=== PATIENT | male | born 1970 | race Caucasian/White ===

== ENCOUNTER → 2020-02-18 14:48 | Observation (INO) | payer OTHER, SELFPAY ==
[2020-02-18] VITALS (10 sets, daily range): BP systolic 132–145; BP diastolic 79–108; PULSE 67–98; RESP 16–18; TEMP 36.8–37.7; O2SAT 98–100; BMI 29.5; BMI 29.4
--- NOTE | 2020-02-18 15:21 | CT_ITS ---
STUDY: CT ABDOMEN AND PELVIS WITH CONTRAST REASON FOR EXAM: Male, 49 years old. PYELONEPHRITIS, UTI RADIATION DOSAGE (If Supplied By Facility): CTDIvol = ( 16.08 ) mGy, DLP = ( 1208.11 ) mGycm TECHNIQUE: Transaxial images were obtained from the dome of the diaphragm to the symphysis pubis without oral contrast. IV 100mL Isovue-300 was administered. Sagittal and coronal images were reconstructed. Individualized dose optimization techniques were used for this CT. COMPARISON: None. FINDINGS: The visualized lung bases are unremarkable. The visualized portions of the heart are within normal limits. Normal liver. Cholelithiasis. No significant dilatation of the extrahepatic biliary system. Normal spleen. Normal pancreas. Normal bilateral adrenal glands. Normal right kidney. 2 cm cyst and up to 7 mm stones in the left kidney. Normal visualized stomach. Normal small intestine. Normal colon. The appendix is visualized and appears normal. Normal abdominal aorta. Normal inferior vena cava. Normal retroperitoneum. Normal urinary bladder. Small fatty umbilical hernia. Normal osseous structures. CT/Abdomen/Pelvis W IV Cont ONLY IMPRESSION: Cholelithiasis. Left renal stones and cysts. No hydronephrosis. Small fatty umbilical hernia. Electronically Signed: Sai Hauser DO at 17:25 EDT Tel [phone], Service support ,
[2020-02-18 15:22] LABS: Bacteria 0 SEEN /hpf (None Seen); Mucous, Urine 0 SEEN /hpf (<or=2+); Red Blood Cells-Urine 0 SEEN /hpf (0-5)
--- NOTE | 2020-02-18 15:22 | ED.VIS.GEN ---
History of Present Illness Chief Complaint: Fever Narrative: This patient is a 49-year-old male who presents with fever UTI and lower back pain. Patient has a history of urethral stricture with surgery in 2014. He developed a fever of about 101 two days ago. He also noted urinary frequency foul odor to his urine generalized malaise headache and myalgias. He went to the urgent care. He was diagnosed with UTI and started on Keflex. He has noted that the odor in his urine as well as urinary frequency have improved but he still just generally does not feel well. He is concerned because he has mechanical heart valve. He has a history of HOCM and mechanical mitral valve replacement. He is on warfarin. He reports mild nausea. No vomiting. He does complain of mid lower back pain which he rates is about 5 out of 10. Past Medical History - Allergies and Home Meds Allergies/Adverse Reactions: Allergies codeine Allergy (Verified 02/18/20 14:53) Other Primary Care Physician: [facility] Doctor,Out of [NON-STAFF] - Past Medical History: - - HOCM, history of urethral stricture Surgical History: - - Mitral valve replacement, urethral stricture surgery Smoking Status: Never smoker Review of Systems All systems negative except as indicated General: Reports: Fever Eyes: Denies: Visual changes - bilaterally ENT: Denies: Bilateral ear pain Cardiovascular: Denies: Chest pain Respiratory: Denies: Dyspnea Gastrointestinal: Reports: Nausea. Denies: Abdominal pain, Vomiting, Diarrhea Genitourinary: Reports: Frequency Musculoskeletal: Reports: Back pain Skin: Denies: Rash Neurological: Reports: Headache Allergy: Denies: Uticaria Physical Exam Vital Signs/Narrative: Vital Signs Temp Pulse Resp BP Pulse Ox 02/18/20 14:50 98.2 F 98 18 145/108 H 100 Inital Vital Signs reviewed: Yes General: Well nourished Head: Normocephalic Eyes: EOMI ENT: Moist mucous membranes Neck: Supple Cardiovascular: Regular rhythm, Tachycardia Respiratory: No distress, CTA bilaterally Abdomen: Soft, Nontender, Nondistended Back: Nontender. Negative for: CVA tenderness Extremities: Nontender Skin: Normal color Neurological: Alert Psychological: Normal affect Diagnostic/Tx/Re-eval Impressions Abdomen/Pelvis CT 02/18/20 15:21 IMPRESSION: Cholelithiasis. Left renal stones and cysts. No hydronephrosis. Small fatty umbilical hernia. Electronically Signed: Sai Hauser DO at 17:25 EDT Tel [phone], Service support , 02/18/20 15:21 CT Abd [Abdomen/Pelvis W IV Cont ONLY] [CT] Stat Laboratory Results 02/18/20 02/18/20 02/18/20 15:15 15:25 15:25 WBC 16.6 H RBC 5.72 Hgb 15.0 Hct 46.7 MCV 81.6 MCH 26.2 L MCHC 32.1 RDW Std Deviation 44.4 H RDW Coeff of Kingsley 15.1 H Plt Count 319 MPV 9.5 Immature Gran % (Auto) 0.300 Neut % (Auto) 72.2 H Lymph % (Auto) 15.5 L [place] % (Auto) 11.5 H Eos % (Auto) 0.2 Baso % (Auto) 0.3 Absolute Neuts (auto) 12.0 H Absolute Lymphs (auto) 2.57 Nucleated RBC % 0 Differential Comment SCANNED Diff Path Review May foll Platelet Estimate ADEQUATE RBC Morphology NORM C+C PT INR Sodium 133 L Potassium 3.6 Chloride 100 Carbon Dioxide 26.0 Anion Gap 7 BUN 7 Creatinine 0.84 Estim Creat Clear Calc 134.06 Est GFR (MDRD) Af Amer 125 Est GFR (MDRD) Non-Af 103 BUN/Creatinine Ratio 8.4 L Glucose 98 Lactic Acid Calcium 9.1 Urine Color Yellow Urine Clarity Sl Cldy Urine pH 7.0 Ur Specific [place] 1.005 Urine Protein Negative Urine Glucose (UA) Normal Urine Ketones Negative Urine Occult Blood Negative Urine Nitrite Negative Urine Bilirubin Negative Urine Urobilinogen 1 H Ur Leukocyte Esterase 25 H 02/18/20 02/18/20 15:25 15:25 WBC RBC Hgb Hct MCV MCH MCHC RDW Std Deviation RDW Coeff of Kingsley Plt Count MPV Immature Gran % (Auto) Neut % (Auto) Lymph % (Auto) [place] % (Auto) Eos % (Auto) Baso % (Auto) Absolute Neuts (auto) Absolute Lymphs (auto) Nucleated RBC % Differential Comment Diff Path Review Platelet Estimate RBC Morphology PT 19.7 H INR 1.7 Sodium Potassium Chloride Carbon Dioxide Anion Gap BUN Creatinine Estim Creat Clear Calc Est GFR (MDRD) Af Amer Est GFR (MDRD) Non-Af BUN/Creatinine Ratio Glucose Lactic Acid 1.1 Calcium Urine Color Urine Clarity Urine pH Ur Specific [place] Urine Protein Urine Glucose (UA) Urine Ketones Urine Occult Blood Urine Nitrite Urine Bilirubin Urine Urobilinogen Ur Leukocyte Esterase - Medical Decision Making Diagnostic evaluation as above. The macroscopic on the urinalysis is unremarkable but patient was recently diagnosed with a UTI this may be related to a partially treated UTI. Microscopic pending. Urine culture was ordered. White count is 16.6. Lactic acid is normal. He was tachycardic on initial presentation but this improved with IV fluids. He was given IV Rocephin. Patient is very concerned about his lack of clinical improvement and his mechanical heart valve. We will place in observation. ED Disposition - Plan for ED Patient: Disposition: Acute Care [facility] Diagnosis: UTI (urinary tract infection), Mitral valve replaced Referrals: [facility] Doctor,Out of [NON-STAFF] -
[2020-02-18 15:27] LABS: Glucose, Dipstick Normal (Normal); Ketone-Dipstick Negative (Negative); Leukocyte Esterase-Dipstick 25 /ul (Negative); Nitrite-Dipstick Negative (Negative); Occult Blood-Urine Negative /ul (Negative); Protein-Dipstick Negative (Negative); Specific Gravity, Urine 1.005 (1.002-1.030); Urine Bilirubin Dipstick Negative (Negative); Urine Urobilinogen 1 mg/dl (Normal)
[2020-02-18 15:31] LABS: Color, Urine Yellow (Yellow); Urine Clarity Sl Cldy (Clear)
[2020-02-18 15:53] LABS: Absolute Lymphocyte Count 2.57 X10^3/uL (0.83-4.51); Basophil# 0.05 X10^3/uL; Basophil% 0.3 % (0-1); Eosinophil# 0.04 X10^3/uL; Eosinophils% 0.2 % (0-5); Hematocrit 46.7 % (40-54); Lymphocyte # 2.57 X10^3/ul (4.0); Lymphocyte % 15.5 % (19-41); Mean Corp Hgb Conc 32.1 g/dL (32-36); Mean Corpuscular Hgb 26.2 pg (27.0-32.0); Mean Corpuscular Volume 81.6 fL (80-94); Mean Platelet Vol. 9.5 fl (6.2-12.0); Monocyte# 1.91 X10^3/uL; Monocyte% 11.5 % (0-10); NRBC Flagged by Analyzer 0 % (0-5); Neutrophil # 11.99 X10^3/uL (2.7-7.7); Neutrophil % 72.2 % (47-70); POSITIVE DIFFERENTIAL YES; Platelet Count 319 K/mm3 (150-450); RBC Distribution Width CV 15.1 % (11.6-14.6); RBC Distribution Width SD 44.4 fl (35.1-43.9); Red Blood Count 5.72 M/mm3 (4.6-6.2); White Blood Count 16.6 K/mm3 (4.4-11.0)
[2020-02-18 16:00] LABS: Differential Indicated SCAN CRITERIA MET
[2020-02-18] MEDS: 0.9% Normal Saline 1,000 ML 999 ML IV (16:07)
[2020-02-18 16:28] LABS: International Normalized Ratio 1.7; Prothrombin Time (Protime)PT. 19.7 SECONDS (11.7-14.9)
[2020-02-18 16:37] LABS: Anion Gap 7 (5-15); BUN 7 mg/dL (7-18); BUN/Creat Ratio 8.4 RATIO (10-20); Calcium,Total 9.1 mg/dL (8.5-10.1); Chloride 100 mmol/L (98-107); Creatinine, Serum 0.84 mg/dL (0.70-1.30); EST Glomerular Filtration Rate 103 mL/min (>60); Est Glom Filt Rate - Afr Amer 125 mL/min (>60); Estimated Creatinine Clearance 134.06 ml/min; Glucose 98 mg/dL (74-106); Potassium 3.6 mmol/L (3.5-5.1); Sodium Level 133 mmol/L (136-145)
[2020-02-18 16:41] LABS: Lactic Acid 1.1 mmol/L (0.4-1.9)
[2020-02-18 16:50] LABS: Differential Comment SCANNED; Platelet Estimate ADEQUATE (ADEQ); Red Cell Morphology NORM C+C NORMAL (NORM C&C)
--- NOTE | 2020-02-18 17:59 | NURSING ---
DR SARMIENTO FOR DR ALEXANDER
[2020-02-18 18:01] LABS: Squamous Epithelial Cells - UA 0-5 SEEN /hpf (0-5); White Blood Cells 0-5 SEEN /hpf (0-5)
--- NOTE | 2020-02-18 18:08 | NURSING ---
MED SURG UTI ASHELFAH
--- NOTE | 2020-02-18 18:15 | HP.PCM_ITS ---
<Kendall Boykin - Last Filed: 02/18/20 18:15> Problem List (1) UTI (urinary tract infection) Status: Acute (2) Urethral stricture Status: Chronic (3) HLD (hyperlipidemia) Status: Chronic (4) H/O mitral valve replacement with mechanical valve Status: Chronic History of Present Illness Date of Admission: 02/18/20 Chief Complaint: fever The patient is a 49 year old M with pmhx of mitral valve replacement with mechanical valve in 2013 for hypertrophic cardiomyopathy, hx of urethral stricture s/p repair in 2014, hx HLD, who presented to the ER with c/o fever. The patient inititally had urinary urgency and fevers starting wednesday. He was seen at urgent care and placed on keflex. He had improvement in his urgency however he continued to have fevers, this morning had a temperature of 101. He had a ct of the abdomen showing no hydronephrosis. He as no CVA tenderness. About 1 month ago he had covid19 which he states he was briefly ill with taste change and fever for several days after which it completely resolved. He has no cough or respiratory symptoms at this time. The patient requests that we bridge him with lovenox while he is here.[] Past Medical History Past Medical History (Chronic Problems): Chronic Problems Hypertrophic obstructive cardiomyopathy (Chronic) Urethral stricture (Chronic) HLD (hyperlipidemia) (Chronic) H/O mitral valve replacement with mechanical valve (Chronic) Allergies codeine Allergy (Verified 02/18/20 14:53) Other Home Medications: Ambulatory Orders Medication Instructions Recorded Aspirin 325 mg PO DAILY@0800 03/29/17 Metoprolol Tartrate 75 mg PO DAILY 03/29/17 Warfarin [Coumadin ([facility])] 12.5 mg PO DAILY 03/29/17 Allopurinol 100 mg PO DAILY 02/18/20 Rosuvastatin Calcium 20 mg PO DAILY 02/18/20 Surgical History: - - Mitral valve replacement, urethral stricture surgery Lives: Alone Smoking Status: Never smoker Tobacco Use: Non-smoker Alcohol: None Drugs: None - *Family History Maternal History Items: - - denies maternal hx of stroke, CAD, cancer, DM, lung disease Paternal History Items: - - denies paternal hx of stroke, CAD, cancer, DM, lung disease Review of Systems Constitutional: Reports: Fever, Malaise. Denies: Chills, Weight Change HEENT: Denies: Head Aches, Sinus Congestion, Sinus Drainage Cardiovascular: Denies: Chest Pain, Light Headedness, Palpitations Respiratory: Denies: Cough, Shortness of Breath, Shortness of breath at rest, Sputum production Gastrointestinal: Denies: Abdominal Pain, Diarrhea, Nausea, Vomiting Genitourinary: Reports: Urgency. Denies: Dysuria, Hesitancy Musculoskeletal: Denies: Joint Pain, Joint Tenderness, Muscle pain Skin: Denies: Lesions, Rash, Wounds Neurological: Denies: Numbness, Tingling, Focal weakness Psychiatric: Denies: Anxiety, Depression, Homicidal Ideations, Suicidal Ideations Hematologic/ Lymphatic: Denies: Easy Bruising, Easy Bleeding VTE Information - Inpt Only VTE Present on Admission: No VTE Mechan Device Prophylaxis: None VTE Pharm Prophylaxis ordered?: Yes Patient Problems: Active and Suspected Problems UTI (urinary tract infection) (Acute) - Physical Exam Vitals/I&O's: Vital Signs Temp Pulse Resp BP Pulse Ox 99.1 F 82 18 135/83 H 100 02/18/20 16:53 02/18/20 16:53 02/18/20 16:53 02/18/20 16:53 02/18/20 16:53 Oxygen Delivery Method Room Air Weight: 249 lb Body Mass Index (BMI) 29.5 Intake and Output for Last 24 Hours 02/16/20 02/17/20 02/18/20 23:59 23:59 23:59 Intake Total 1000 / 1000 Balance 1000 / 1000 General: Alert, Oriented x3, Cooperative HEENT: Atraumatic, PERRLA, EOMI, Normocephalic Neck: Supple, No JVD, Negative Carotid Bruits Lungs: Clear to auscultation, Normal air movement Cardiovascular: Regular rate, Murmur - 3/6 systolic murmur best at 2nd ICS Abdomen: Bowel Sounds Present, Soft, Non Tender Extremities: No edema, Capillary Refill Less than 3 Seconds Skin: No rashes, No breakdown Musculoskeletal: No Tenderness to Palpation of Joints or Extremities, - - no CVA tenderness Neurological: Cranial nerves II-XII grossly intact Psych/Mental Status: Normal Affect, Appropriate Laboratory Results 02/18/20 15:15: Urine Color Yellow, Urine Clarity Sl Cldy, Urine pH 7.0, Ur Specific [place] 1.005, Urine Protein Negative, Urine Glucose (UA) Normal, Urine Ketones Negative, Urine Occult Blood Negative, Urine Nitrite Negative, Urine Bilirubin Negative, Urine Urobilinogen 1 H, Ur Leukocyte Esterase 25 H, Urine RBC 0 SEEN, Urine WBC 0-5 SEEN, Ur Squamous Epith Cells 0-5 SEEN, Urine Bacteria 0 SEEN, Urine Mucus 0 SEEN 02/18/20 15:25: WBC 16.6 H, RBC 5.72, Hgb 15.0, Hct 46.7, MCV 81.6, MCH 26.2 L, MCHC 32.1, RDW Std Deviation 44.4 H, RDW Coeff of Kingsley 15.1 H, Plt Count 319, MPV 9.5, Immature Gran % (Auto) 0.300, Neut % (Auto) 72.2 H, Lymph % (Auto) 15.5 L, [place] % (Auto) 11.5 H, Eos % (Auto) 0.2, Baso % (Auto) 0.3, Absolute Neuts (auto) 12.0 H, Absolute Lymphs (auto) 2.57, Nucleated RBC % 0, Differential Comment SCANNED, Diff Path Review August, Platelet Estimate ADEQUATE, RBC Morphology NORM C+C 02/18/20 15:25: Sodium 133 L, Potassium 3.6, Chloride 100, Carbon Dioxide 26.0, Anion Gap 7, BUN 7, Creatinine 0.84, Estim Creat Clear Calc 134.06, Est GFR (MDRD) Af Amer 125, Est GFR (MDRD) Non-Af 103, BUN/Creatinine Ratio 8.4 L, Glucose 98, Calcium 9.1 02/18/20 15:25: PT 19.7 H, INR 1.7 02/18/20 15:25: Lactic Acid 1.1 Current Medications Ceftriaxone Sodium (Rocephin) 1 gm in 50 mls @ 100 mls/hr IV X1 ONE Stop: 02/18/20 18:21 Assessment/Plan All Active Problems UTI (urinary tract infection) (Acute) 1. Acute UTI - failed outpatient keflex - significant leukocytosis. pt reports ongoing fevers at home - 101 this AM. No fever here at this time. Initiate Rocephin. Pt had a urethral stricture in the past that was fixed surgically per [facility] in 2014. UA here is not impressive. Will request culture from urgent care if one was sent. Repeat culture here however it may not demonstrate growth as he has been on abx for several days. -CT abdomen shows left renal stones and cysts, no hydronephrosis, small umbilical hernia. 2. Hx Hypertrophic CM s/p mechanical mitral valve replacement 2013. INR goal 2.5 - 3.5. INR 1.9. Will give additional dose of warfarin tonight, bridge with l ovenox. 3. HLD - statin DVT ppx: lovenox to warfarin bridge This patient was seen by Kendall Boykin PA-C under the supervision of Dr. Healy. <Chanda Healy E - Last Filed: 02/18/20 19:00> History of Present Illness The patient is a 49 year old M [] Past Medical History Allergies codeine Allergy (Verified 02/18/20 14:53) Other - Physical Exam Vitals/I&O's: Vital Signs Temp Pulse Resp BP Pulse Ox 99.2 F H 87 18 145/90 H 98 02/18/20 18:02 02/18/20 18:02 02/18/20 18:02 02/18/20 18:02 02/18/20 18:02 Oxygen Delivery Method Room Air Weight: 249 lb Body Mass Index (BMI) 29.5 Intake and Output for Last 24 Hours 02/16/20 02/17/20 02/18/20 23:59 23:59 23:59 Intake Total 1000 / 1000 Balance 1000 / 1000 Laboratory Results 02/18/20 15:15: Urine Color Yellow, Urine Clarity Sl Cldy, Urine pH 7.0, Ur Spec ific [place] 1.005, Urine Protein Negative, Urine Glucose (UA) Normal, Urine Ketones Negative, Urine Occult Blood Negative, Urine Nitrite Negative, Urine Bilirubin Negative, Urine Urobilinogen 1 H, Ur Leukocyte Esterase 25 H, Urine RBC 0 SEEN, Urine WBC 0-5 SEEN, Ur Squamous Epith Cells 0-5 SEEN, Urine Bacteria 0 SEEN, Urine Mucus 0 SEEN 02/18/20 15:25: WBC 16.6 H, RBC 5.72, Hgb 15.0, Hct 46.7, MCV 81.6, MCH 26.2 L, MCHC 32.1, RDW Std Deviation 44.4 H, RDW Coeff of Kingsley 15.1 H, Plt Count 319, MPV 9.5, Immature Gran % (Auto) 0.300, Neut % (Auto) 72.2 H, Lymph % (Auto) 15.5 L, [place] % (Auto) 11.5 H, Eos % (Auto) 0.2, Baso % (Auto) 0.3, Absolute Neuts (auto) 12.0 H, Absolute Lymphs (auto) 2.57, Nucleated RBC % 0, Differential Comment SCANNED, Diff Path Review May foll, Platelet Estimate ADEQUATE, RBC Morphology NORM C+C 02/18/20 15:25: Sodium 133 L, Potassium 3.6, Chloride 100, Carbon Dioxide 26.0, Anion Gap 7, BUN 7, Creatinine 0.84, Estim Creat Clear Calc 134.06, Est GFR (MDRD) Af Amer 125, Est GFR (MDRD) Non-Af 103, BUN/Creatinine Ratio 8.4 L, Glucose 98, Calcium 9.1 02/18/20 15:25: PT 19.7 H, INR 1.7 02/18/20 15:25: Lactic Acid 1.1 Current Medications Acetaminophen (Acetaminophen 325 Mg Tablet) 650 mg PO Q6H PRN PRN PRN Reason: Pain Score 1-10/Temp > 100.7 F Allopurinol (Allopurinol 100 Mg Tablet) 100 mg PO DAILY JOHAN Aspirin (Aspirin 325 Mg Tablet) 325 mg PO DAILY@0800 JOHAN Sodium Chloride () 1,000 mls @ 100 mls/hr IV .Q10H JOHAN Ceftriaxone Sodium (Rocephin) 1 gm in 50 mls @ 100 mls/hr IV Q24 JOHAN Metoprolol Tartrate (Metoprolol Tartrate 25 Mg Tablet) 75 mg PO DAILY JOHAN Non-Formulary Medication (Rosuvastatin Calcium) 20 mg PO DAILY JOHAN Ondansetron HCl (Ondansetron 4 Mg/2 Ml Vial) 4 mg IV Q8H PRN PRN PRN Reason: NAUSEA/VOMITING Senna/Docusate Sodium (Senna/Docusate Sodium 1 Tablet) 2 tablet PO BID PRN PRN PRN Reason: Constipation Warfarin Sodium (Warfarin 1 Mg Tablet) 12.5 mg PO DAILY JOHAN Zolpidem Tartrate (Zolpidem Tartrate 5 Mg Tablet) 5 mg PO QHS PRN PRN PRN Reason: INSOMNIA Assessment/Plan Hospitalist note: I am seeing this patient in conjunction with Kendall Boykin. I independently seen and examined the patient. History and physical, laboratory data and imaging studies reviewed and I concur with above admission and treatment plan. Patient presented to the emergency room because of fever and urgency that started 2 days ago. He has been having intermittent fever, maximum was 101 Fahrenheit this morning, was started on Keflex for UTI on Wednesday but without improvement. He complained of frequency over the last couple days as well, associated with foul- smelling urine and no other associated symptoms. He denied chills. He was given prescription for Keflex on Wednesday and he did mention that foul-smelling urine improved but he still having frequency and spikes of fever. He denies significant flank pain. He does have a history of mitral valve replacement with mechanical valve and he has been on Coumadin and his INR is subtherapeutic. In the emergency department, maximum temperature was 99.8 Fahrenheit, other vital signs are stable. Routine blood work was remarkable for significant leukocytosis with neutrophilia, otherwise normal. INR was 1.7. Urinalysis revealed cloudy urine, negative for nitrite, 25 leukocyte esterase, 0-5 WBCs and no bacteria seen. CT scan abdomen with IV contrast revealed left renal stone, no hydronephrosis, cholelithiasis. He is being admitted for acute cystitis with no response to outpatient treatment and he is a high risk patient because of mitral valve replacement with mechanical valve. - Physical Exam General: Alert, Oriented x3, Cooperative, No apparent distress. HEENT: Atraumatic, PERRLA, EOMI. Neck: Supple, No JVD, Negative Carotid Bruits, Trachea Midline, Thyroid Normal. Lungs: Clear to auscultation, Normal air movement, No rhonchi, No wheeze, No rales. Cardiovascular: Regular rate, Regular Rhythm, Normal S1, Normal S2, PMI Normal, metallic click. Abdomen: Bowel Sounds Present, Soft, Non Tender, Non-Distended, No Hepato- splenomegaly. Extremities: No clubbing, No cyanosis, No edema Skin: No rashes, No breakdown Neurological: Cranial nerves are intact, neuro grossly intact Vital Signs are stable. Assessment and plan: #1 acute cystitis: With no improvement on oral Keflex that he has been taking for 2 days. Although urinalysis showed no significant WBCs or bacteria in the urine, patient was on Keflex for 2 days which may alter the results. CT scan abdomen and pelvis reviewed as above. He does have significant leukocytosis, no sepsis or severe sepsis. He is a high risk patient because of history of mitral valve replacement with mechanical valve and being on anticoagulation. [facility], urine culture, blood culture, IV fluids, start IV Rocephin, repeat CBC and BMP tomorrow morning. #2 status post mitral valve replacement with mechanical valve: On Coumadin, INR is 1.7, subtherapeutic. Plan to start therapeutic Lovenox twice daily for bridging, continue Coumadin, repeat INR tomorrow morning. #3 other chronic medical problems: Stable, continue current medications as above. This note was generated with Novo[employer] dictation software. It may contain incorrect words, spelling, and punctuation that were not noted in checking the note before signing. OBSV E&M: [id number] Initial observation care L2
[2020-02-18] MEDS: Ceftriaxone 1 GM/50 ML BAG IV (18:24)
[2020-02-18] MEDS: Acetaminophen 325 MG Tablet 650 MG PO (19:18)
[2020-02-18] MEDS: 0.9% Normal Saline 1,000 ML 100 ML IV (19:18)
[2020-02-18] MEDS: Metoprolol Tartrate 25 MG Tablet 75 MG PO (20:12)
[2020-02-18] MEDS: Atorvastatin Calcium 10 MG Tablet PO (20:13)
[2020-02-18] MEDS: Enoxaparin 120 MG/0.8 ML Syringe 110 MG SC (20:13)
[2020-02-19] VITALS (8 sets, daily range): BP systolic 111–140; BP diastolic 69–84; PULSE 57–76; RESP 16; TEMP 36.1–36.8; O2SAT 96–100
[2020-02-19] MEDS: MELATONIN 10 MG TABLET PO (00:07)
[2020-02-19] MEDS: 0.9% Normal Saline 1,000 ML 100 ML IV (05:24)
[2020-02-19] MEDS: Enoxaparin 120 MG/0.8 ML Syringe 110 MG SC (05:24)
[2020-02-19] MEDS: Acetaminophen 325 MG Tablet 650 MG PO (05:27)
[2020-02-19 07:01] LABS: Absolute Lymphocyte Count 1.95 X10^3/uL (0.83-4.51); Absolute Neutrophil Count 4.9 X10^3/uL (2.0-7.7); Basophil# 0.03 X10^3/uL; Basophil% 0.4 % (0-1); Eosinophil# 0.11 X10^3/uL; Eosinophils% 1.4 % (0-5); Hematocrit 43.2 % (40-54); Hemoglobin 13.7 g/dL (13.0-16.5); Lymphocyte # 1.95 X10^3/ul (4.0); Lymphocyte % 24.3 % (19-41); Mean Corp Hgb Conc 31.7 g/dL (32-36); Mean Platelet Vol. 9.6 fl (6.2-12.0); Monocyte# 1.01 X10^3/uL; Monocyte% 12.6 % (0-10); NRBC Flagged by Analyzer 0 % (0-5); Neutrophil % 61.1 % (47-70); Platelet Count 285 K/mm3 (150-450); RBC Distribution Width CV 15.2 % (11.6-14.6); Red Blood Count 5.27 M/mm3 (4.6-6.2)
[2020-02-19 07:14] LABS: International Normalized Ratio 1.7; Prothrombin Time (Protime)PT. 19.7 SECONDS (11.7-14.9)
[2020-02-19 07:26] LABS: Anion Gap 7 (5-15); BUN 8 mg/dL (7-18); BUN/Creat Ratio 10.4 RATIO (10-20); Calcium,Total 8.7 mg/dL (8.5-10.1); Chloride 105 mmol/L (98-107); Creatinine, Serum 0.77 mg/dL (0.70-1.30); EST Glomerular Filtration Rate 114 mL/min (>60); Est Glom Filt Rate - Afr Amer 138 mL/min (>60); Estimated Creatinine Clearance 146.25 ml/min; Glucose 94 mg/dL (74-106); Potassium 3.9 mmol/L (3.5-5.1); Sodium Level 138 mmol/L (136-145)
[2020-02-19] MEDS: Allopurinol 100 MG Tablet PO (08:57)
[2020-02-19] MEDS: Aspirin 325 MG Tablet PO (08:57)
[2020-02-19] MEDS: Metoprolol Tartrate 25 MG Tablet 75 MG PO (09:00)
--- NOTE | 2020-02-19 13:24 | DCINST_ITS ---
- Discharge Diagnoses Current Active Problems: Current Active and Chronic Problems UTI (urinary tract infection) (Acute) Urethral stricture (Chronic) HLD (hyperlipidemia) (Chronic) H/O mitral valve replacement with mechanical valve (Chronic) You will use the following diet at home:: Cardiac Your food should be the consistency of: Regular Your liquids should be the consistency of: Regular/Thin Discharge Activity: Return to Normal Activity Call your doctor if you observe: Fever of 101 or Higher Additional Instructions: You must have your INR checked tomorrow. You will need to use lovenox injections until your INR is at goal. Allergies/Adverse Reactions: Allergies codeine Adverse Reaction (Verified 02/18/20 18:54) Other Medications to take at Discharge Aspirin 325 mg PO DAILY@0800 03/29/17 Metoprolol Tartrate 75 mg PO DAILY 03/29/17 Warfarin [Coumadin] 12.5 mg PO DAILY 03/29/17 Allopurinol 100 mg PO DAILY 02/18/20 Rosuvastatin Calcium 20 mg PO DAILY 02/18/20 Acetaminophen [Tylenol Tablet] 650 mg PO Q6H PRN PRN tablet 02/19/20 Cefdinir [Omnicef [equiv]] 300 mg PO Q12H #8 cap 02/19/20 Enoxaparin [Lovenox] 110 mg SC Q12@0600,1800 #14 syringe 02/19/20 The following prescriptions were given: Enoxaparin [Lovenox] 110 mg SC Q12@0600,1800 #14 syringe Transmission Status: Pending to [id number] Cefdinir [Omnicef [equiv]] 300 mg PO Q12H #8 cap Transmission Status: Pending to [id number] Primary Care Physician: Elva Echeverria,Out of [NON-STAFF] - Please follow up with your Primary Care Physician in: 1 week Test Results: Test results from this visit will be discussed in further detail at your follow- up appointment, if applicable. Please Follow Up With: [facility] When: 1 day Proposed Discharge Date: 02/19/20
--- NOTE | 2020-02-19 13:28 | DS.PCM_ITS ---
<Kendall Boykin - Last Filed: 02/19/20 13:28> Discharge Date and Diagnosis - Problem List Patient Problems: Active and Suspected Problems UTI (urinary tract infection) (Acute) Date of Admission: 02/18/20 Date of Discharge: 02/19/20 - Primary Discharge Diagnosis Acute Problems: Active Problems UTI (urinary tract infection) (Acute) History of urethral stricture History of mechanical mitral valve - Secondary Discharge Diagnosis Chronic Problems: Chronic Problems Hypertrophic obstructive cardiomyopathy (Chronic) Urethral stricture (Chronic) HLD (hyperlipidemia) (Chronic) H/O mitral valve replacement with mechanical valve (Chronic) Hospital Course and Treatment Imaging Results: CT/Abdomen/Pelvis W IV Cont ONLY IMPRESSION: Cholelithiasis. Left renal stones and cysts. No hydronephrosis. Small fatty umbilical hernia. Operations: None Procedures: None Summary of Care Provided: Hospital course: The patient is a 49 year old M with past medical history of urethral stricture with repair by the [facility], history of mechanical mitral valve replacement due to a congenital heart deformity per [facility], who presented to the emergency room with ongoing fevers. The patient had recently been diagnosed with a UTI as an outpatient and been taking Keflex. He still had a fever intermittently in the morning of presentation he reported fever of 101. He was concerned that he was still having fevers and the UTI was not being controlled, and he was concerned about his INR level as he does not want to become subtherapeutic due to his mitral valve. The patient did have an INR that was 1.7. He had a significant leukocytosis however no fever in the ER. He did not appear septic. He was admitted to the medical surgical floor and placed on IV Rocephin. Urine culture was sent and demonstrates less than 1000 of E. coli. Leukocytosis resolved overnight. Patient symptoms were improving by the following day. His INR remained at 1.7. The patient felt comfortable returning home and using Lovenox at home as he has done this multiple times in the past in order to bridge himself from Lovenox to Coumadin. He will need to follow-up with the Coumadin clinic tomorrow. He was given a prescription for subcutaneous Lovenox. He was given a prescription for Omnicef to complete 4 more days, he will have a total of 7 days of therapy. He was advised to follow-up with his PCP in 1 week. He was discharged home in stable condition. This patient was seen by Kendall Boykin PA-C under the supervision of Doctor Dario. [] Patient Problems: Active and Suspected Problems UTI (urinary tract infection) (Acute) - Physical Exam Vitals/I&O's: Vital Signs Temp Pulse Resp BP Pulse Ox 96.9 F L 76 16 140/84 H 96 02/19/20 06:30 02/19/20 09:00 02/19/20 06:30 02/19/20 06:30 02/19/20 07:17 Oxygen Delivery Method Room Air Weight: 247 lb 14.4 oz Body Mass Index (BMI) 29.4 Intake and Output for Last 24 Hours 02/17/20 02/18/20 02/19/20 23:59 23:59 23:59 Intake Total 1050 / 1999 2400 / 2400 Output Total 0 / 0 Balance 1049 2400 / 2400 General: Alert, Oriented x3, Cooperative HEENT: Atraumatic, PERRLA, EOMI, Normocephalic Neck: Supple, No JVD, Negative Carotid Bruits Lungs: Clear to auscultation, Normal air movement Cardiovascular: Regular rate, Murmur - 3/6 systolic murmur best heard at second intercostal space Abdomen: Bowel Sounds Present, Soft, Non Tender Extremities: No edema, Capillary Refill Less than 3 Seconds Skin: No rashes, No breakdown Musculoskeletal: No Tenderness to Palpation of Joints or Extremities Neurological: Cranial nerves II-XII grossly intact Psych/Mental Status: Normal Affect, Appropriate, Alert and oriented to time, place, person, mood and affect Microbiology Past 72 Hours 02/18/20 15:15 Interface Orders Urine Culture - Preliminary Presumptive E. coli Laboratory Results 02/18/20 15:15: Urine Color Yellow, Urine Clarity Sl Cldy, Urine pH 7.0, Ur Specific Pierce 1.005, Urine Protein Negative, Urine Glucose (UA) Normal, Urine Ketones Negative, Urine Occult Blood Negative, Urine Nitrite Negative, Urine Bilirubin Negative, Urine Urobilinogen 1 H, Ur Leukocyte Esterase 25 H, Urine RBC 0 SEEN, Urine WBC 0-5 SEEN, Ur Squamous Epith Cells 0-5 SEEN, Urine Bacteria 0 SEEN, Urine Mucus 0 SEEN 02/18/20 15:25: WBC 16.6 H, RBC 5.72, Hgb 15.0, Hct 46.7, MCV 81.6, MCH 26.2 L, MCHC 32.1, RDW Std Deviation 44.4 H, RDW Coeff of Kingsley 15.1 H, Plt Count 319, MPV 9.5, Immature Gran % (Auto) 0.300, Neut % (Auto) 72.2 H, Lymph % (Auto) 15.5 L, Bates % (Auto) 11.5 H, Eos % (Auto) 0.2, Baso % (Auto) 0.3, Absolute Neuts (auto) 12.0 H, Absolute Lymphs (auto) 2.57, Nucleated RBC % 0, Differential Comment SCANNED, Diff Path Review August, Platelet Estimate ADEQUATE, RBC Morphology NORM C+C 02/18/20 15:25: Sodium 133 L, Potassium 3.6, Chloride 100, Carbon Dioxide 26.0, Anion Gap 7, BUN 7, Creatinine 0.84, Estim Creat Clear Calc 134.06, Est GFR (MDRD) Af Amer 125, Est GFR (MDRD) Non-Af 103, BUN/Creatinine Ratio 8.4 L, Glucose 98, Calcium 9.1 02/18/20 15:25: PT 19.7 H, INR 1.7 02/18/20 15:25: Lactic Acid 1.1 02/19/20 06:15: WBC 8.0, RBC 5.27, Hgb 13.7, Hct 43.2, MCV 82.0, MCH 26.0 L, MCHC 31.7 L, RDW Std Deviation 46.0 H, RDW Coeff of Kingsley 15.2 H, Plt Count 285, MPV 9.6, Immature Gran % (Auto) 0.200, Neut % (Auto) 61.1, Lymph % (Auto) 24.3, Bates % (Auto) 12.6 H, Eos % (Auto) 1.4, Baso % (Auto) 0.4, Absolute Neuts (auto) 4.9, Absolute Lymphs (auto) 1.95, Nucleated RBC % 0 02/19/20 06:15: PT 19.7 H, INR 1.7 02/19/20 06:15: Sodium 138, Potassium 3.9, Chloride 105, Carbon Dioxide 26.0, Anion Gap 7, BUN 8, Creatinine 0.77, Estim Creat Clear Calc 146.25, Est GFR (MDRD) Af Amer 138, Est GFR (MDRD) Non-Af 114, BUN/Creatinine Ratio 10.4, Glucose 94, Calcium 8.7 Current Medications Acetaminophen (Acetaminophen 325 Mg Tablet) 650 mg PO Q6H PRN PRN PRN Reason: Pain Score 1-10/Temp > 100.7 F Last Admin: 02/19/20 05:27 Dose: 650 mg Documented by: Allopurinol (Allopurinol 100 Mg Tablet) 100 mg PO DAILY [facility] Last Admin: 02/19/20 08:57 Dose: 100 mg Documented by: Aspirin (Aspirin 325 Mg Tablet) 325 mg PO DAILY@0800 [facility] Last Admin: 02/19/20 08:57 Dose: 325 mg Documented by: Atorvastatin Calcium (Atorvastatin Calcium 10 Mg Tablet) 10 mg PO QHS [facility] Last Admin: 02/18/20 20:13 Dose: 10 mg Documented by: Enoxaparin Sodium (Enoxaparin 120 Mg/0.8 Ml Syringe) 110 mg SC Q12@0600,1800 [facility] Last Admin: 02/19/20 05:24 Dose: 110 mg Documented by: Sodium Chloride () 1,000 mls @ 100 mls/hr IV .Q10H [facility] Last Admin: 02/19/20 05:24 Dose: 100 mls/hr Documented by: Sodium Chloride () 250 mls @ 15 mls/hr IV .[id number] PRN PRN Reason: Saline Flush Sodium Chloride () 250 mls @ 15 mls/hr IV .[id number] PRN PRN Reason: Additional IVPB Infusion Ceftriaxone Sodium 2 gm/ (Sodium Chloride) 50 mls @ 100 mls/hr IV Q24 [facility] Last Infusion: 02/19/20 11:05 Dose: Infused Documented by: Melatonin (Melatonin 10 Mg Tablet) 10 mg PO QHS PRN PRN Reason: SLEEP Last Admin: 02/19/20 00:07 Dose: 10 mg Documented by: Metoprolol Tartrate (Metoprolol Tartrate 25 Mg Tablet) 75 mg PO DAILY [facility] Last Admin: 02/19/20 09:00 Dose: 75 mg Documented by: Ondansetron HCl (Ondansetron 4 Mg/2 Ml Vial) 4 mg IV Q8H PRN PRN PRN Reason: NAUSEA/VOMITING Senna/Docusate Sodium (Senna/Docusate Sodium 1 Tablet) 2 tablet PO BID PRN PRN PRN Reason: Constipation Sodium Chloride (0.9% Saline Lock 10 Ml Syringe) 10 - 40 ml IV UD PRN PRN Reason: SALINE FLUSH Warfarin Sodium (Warfarin 5 Mg Tablet) 15 mg PO MoTuWeThFrSa@1700 JOHAN Warfarin Sodium (Warfarin 5 Mg Tablet) 10 mg PO Dorsey@1700 JOHAN Zolpidem Tartrate (Zolpidem Tartrate 5 Mg Tablet) 5 mg PO QHS PRN PRN PRN Reason: INSOMNIA Discharge Diet: Low fat/ Low Cholesterol, 2000 mg Sodium Diet Discharge Activity: Return to Normal Activity Call your doctor if you observe: Fever of 101 or Higher Home Medications: Medications to take at Discharge Aspirin 325 mg PO DAILY@0800 03/29/17 Metoprolol Tartrate 75 mg PO DAILY 03/29/17 Warfarin [Coumadin] 12.5 mg PO DAILY 03/29/17 Allopurinol 100 mg PO DAILY 02/18/20 Rosuvastatin Calcium 20 mg PO DAILY 02/18/20 Acetaminophen [Tylenol Tablet] 650 mg PO Q6H PRN PRN tab 02/19/20 Cefdinir [Omnicef [equiv]] 300 mg PO Q12H #8 cap 02/19/20 Enoxaparin [Lovenox] 110 mg SC Q12@0600,1800 #14 syringe 02/19/20 Following Prescriptions Were Given to Patient: Enoxaparin [Lovenox] 110 mg SC Q12@0600,1800 #14 syringe Transmission Status: Received by [facility]/pharmacy #[id number] Cefdinir [Omnicef [equiv]] 300 mg PO Q12H #8 cap Transmission Status: Received by [facility]/pharmacy #[id number] Primary Care Physician: [facility] Doctor,Out of [NON-STAFF] - Please follow up with your Primary Care Physician in: 1 week Please Follow Up With: Coumadin Clinic When: 1 day Disposition: Home Minutes spent on discharge:: 35 Patient Condition:: Stable Medical Necessity - Tobacco Use Smoking Status: Never smoker Tobacco Use: Non-smoker Meaningful Use Info Meaningful Use Diagnoses (Choose all that apply): None applicable <Davy Bishop - Last Filed: 02/19/20 16:17> Discharge Date and Diagnosis - Primary Discharge Diagnosis Acute Problems: Active Problems UTI (urinary tract infection) (Acute) - Secondary Discharge Diagnosis Chronic Problems: Chronic Problems Hypertrophic obstructive cardiomyopathy (Chronic) Urethral stricture (Chronic) HLD (hyperlipidemia) (Chronic) H/O mitral valve replacement with mechanical valve (Chronic) Hospital Course and Treatment Summary of Care Provided: This patient was seen in conjunction with Kendall GARCIA. I have independently interviewed and examined the patient and reviewed pertinent history, examination findings, laboratory and plan of management. I have reviewed the note and agree with the documented findings with the few additional points. In brief, patient is 49-year-old gentleman with history of ureteral stricture status post repair in 2014 and hypertrophic obstructive cardiomyopathy status post MVR and septal myomectomy admitted with fever along with dysuria increased in frequency. Has dysuria has resolved with outpatient Keflex p.o. continue to have intermittent fever T 101 Fahrenheit. Patient INR is low and is on bridging therapeutic Lovenox. Urine culture shows 1000 E. coli. Leukocytosis resolved. Patient is discharged home on Omnicef to complete a total of 7 days. Patient has Lovenox at home and advised to follow-up with PCP to check INR and titrate the dose of Coumadin accordingly. Discharge medication reconciliation done. Discharge follow-up instructions completed. Discharge process discussed with the patient and all questions were answered to patient's satisfaction. Total time spent, exact 35 minutes on discharge meds reconciliation, examination, coordination of care with nurses and ancillary staff, review of imaging and blood test and discussion with the patient on follow-up instructions I have discussed my assessment with Kendall GARCIA and orders have been reviewed. [] Objective: Seen and examined. Patient has history of ureteral stricture surgery in 2014. Patient had treatment surgery for mitral valve replacement and hypertrophic cardiomyopathy. He said he had mild burning micturition on Wednesday and it went away after the start of antibiotic. No sudden increased urinary frequency noted that is resolved. He feels normal back to the baseline. Physical exam General: Alert, Oriented x3, Cooperative HEENT: Atraumatic, PERRLA, EOMI, Normocephalic Oral: No Gingival or Mucosal Lesions/ Ulcerations Neck: Supple, No JVD, Negative Carotid Bruits Lungs: Air entry equal in bilateral lung bases. No crepitation/rhonchi Cardiovascular: Open heart surgical scar. Regular rate, Regular Rhythm, Normal S1, Normal S2, pansystolic murmur over left lower sternal border and cardiac apex. Abdomen: Bowel Sounds Present, Soft, Non Tender, Non-Distended : No renal angle tenderness. No suprapubic tenderness. No scrotal or penile urethral tenderness. No purulent or bloody urethral discharge Extremities: No edema, Capillary Refill Less than 3 Seconds Skin: No rashes, No breakdown Musculoskeletal: No Tenderness to Palpation of Joints or Extremities Neurological: Cranial nerves II-XII grossly intact, Deep Tendon Reflexes 2+/4 and Symmetrical, Neuro grossly intact Psych/Mental Status: Normal Affect, Appropriate. - Physical Exam Vitals/I&O's: Vital Signs Temp Pulse Resp BP Pulse Ox 98.3 F 62 16 128/69 H 100 02/19/20 13:56 02/19/20 13:56 02/19/20 13:56 02/19/20 13:56 02/19/20 13:56 Oxygen Delivery Method Room Air Weight: 247 lb 14.4 oz Body Mass Index (BMI) 29.4 Intake and Output for Last 24 Hours 02/17/20 02/18/20 02/19/20 23:59 23:59 23:59 Intake Total 1049 3251.67 / 3251.67 Output Total 0 / 0 Balance 1049 3251.67 / 3251.67 Microbiology Past 72 Hours 02/18/20 15:15 Interface Orders Urine Culture - Preliminary Presumptive E. coli Laboratory Results 02/18/20 15:15: Urine RBC 0 SEEN, Urine WBC 0-5 SEEN, Ur Squamous Epith Cells 0- 5 SEEN, Urine Bacteria 0 SEEN, Urine Mucus 0 SEEN 02/18/20 15:25: Differential Comment SCANNED, Diff Path Review Reviewed, Platelet Estimate ADEQUATE, RBC Morphology NORM C+C 02/18/20 15:25: Sodium 133 L, Potassium 3.6, Chloride 100, Carbon Dioxide 26.0, Anion Gap 7, BUN 7, Creatinine 0.84, Estim Creat Clear Calc 134.06, Est GFR (MDRD) Af Amer 125, Est GFR (MDRD) Non-Af 103, BUN/Creatinine Ratio 8.4 L, Gluco se 98, Calcium 9.1 02/18/20 15:25: PT 19.7 H, INR 1.7 02/18/20 15:25: Lactic Acid 1.1 02/19/20 06:15: WBC 8.0, RBC 5.27, Hgb 13.7, Hct 43.2, MCV 82.0, MCH 26.0 L, MCHC 31.7 L, RDW Std Deviation 46.0 H, RDW Coeff of Kingsley 15.2 H, Plt Count 285, MPV 9.6, Immature Gran % (Auto) 0.200, Neut % (Auto) 61.1, Lymph % (Auto) 24.3, Bates % (Auto) 12.6 H, Eos % (Auto) 1.4, Baso % (Auto) 0.4, Absolute Neuts (auto) 4.9, Absolute Lymphs (auto) 1.95, Nucleated RBC % 0 02/19/20 06:15: PT 19.7 H, INR 1.7 02/19/20 06:15: Sodium 138, Potassium 3.9, Chloride 105, Carbon Dioxide 26.0, Anion Gap 7, BUN 8, Creatinine 0.77, Estim Creat Clear Calc 146.25, Est GFR (MDRD) Af Amer 138, Est GFR (MDRD) Non-Af 114, BUN/Creatinine Ratio 10.4, Glucose 94, Calcium 8.7 OBSV E&M: [id number] Observation care discharge
[2020-02-19] MEDS: Jantoven 2 MG Tablet PO (13:54)
[2020-02-19 14:23] LABS: Pathologist Review Reviewed
== END | disposition home or self-care (01) ==
LOC: ED 18:02 → MS3 18:20
PROVIDERS: Admitting Provider Hospitalist; Emergency Provider Emergency Medicine; Visit Provider Internal Medicine
DX: N30.00 Acute cystitis without hematuria (principal); I42.1 Obstructive hypertrophic cardiomyopathy; E78.5 Hyperlipidemia, unspecified; Z23 Encounter for immunization; Z79.01 Long term (current) use of anticoagulants; Z79.82 Long term (current) use of aspirin; Z79.899 Other long term (current) drug therapy; Z86.19 Personal history of other infectious and parasitic diseases; Z95.2 Presence of prosthetic heart valve
CPT/HCPCS: 36415; 74177; 80048; 81001; 83605; 85025; 85610; 87040; 87086; 87088; 96361; 96365; 96367; 96372; 99218; 99284; J7030; J7050; Q9967; 90686; A4216; G0378; J0696

== ENCOUNTER 2022-01-08 05:24 | Day surgery (SDC) | payer OTHER, SELFPAY ==
[2022-01-08] VITALS (7 sets, daily range): BP systolic 121–140; BP diastolic 80–118; PULSE 60–83; RESP 18; TEMP 36.3–36.4; O2SAT 98–100; BMI 30.2
--- NOTE | 2022-01-08 | COLBX_PTH ---
PATIENT: GEORGIE PAREKH LOC: EN U#:[id number] AGE/SX: 51/M ROOM: RE01/08/[address]: Dr. Kyaw Madison DO : 1970 BED: DIS: 01/08/2022 SPEC #: [id number] RECD: 01/08/22 11:52 STATUS: DYLAN GARCIA #: [id number] KEIRA: 01/08/22 00:[address]: Kyaw Madison DEPT: SURGICAL PATHOLOGY RECD BY: Sergio Martin Tissues: COLON BIOPSY Procedures: Surgery Specimen Level IV HEADER OPERATION: Colonoscopy (MAC), polypectomy PRE-OP DIAGNOSIS: Screening TISSUE SUBMITTED: Hepatic flexure polyp biopsy MICROSCOPIC DIAGNOSIS Hepatic flexure polyp, polypectomy: Tubular adenoma. ELISA:pedro 01/09/2022 MICROSCOPIC DESCRIPTION Slides are reviewed. GROSS DESCRIPTION Received in fixative is one container labeled with the patient's name and designated hepatic flexure polyp biopsy. The specimen consists of one irregular fragment of light oden soft tissue that measures 0.3 x 0.3 x 0.1 cm. The specimen is totally submitted in one cassette. / SJ:rg 01/08/2022 TC:3 CPT: 04052
[2022-01-08] MEDS: Lactated Ringers 1,000 ML 15 ML IV (05:53)
--- NOTE | 2022-01-08 06:00 | PCM.HP.BLA ---
History and Physical Date of Admission: 01/08/22 GEORGIE PAREKH, is a 51 M who presents to the office today for?Initial consult. Georgie established with this clinic 7 for screening colonoscopy. OA attempted but there were too many cardiac comorbidities to pursue this route. History of hypertrophic obstructive cardiomyopathy requiring three open heart surgeries; septal myomectomy and mitral valve replacement with post op mitral insufficiency 2013. Blood thinners include ASA, coumadin and lovenox. Denies any GI complaints today. He will contact his anticoagulation clinic to determine how to transition off anticoags for the procedure. Dr. 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 PMH DOREEN type II; hyperlipidemia; anxiety/depression FH sister colon cancer age 46y Colonoscopy last performed with Dr. Acuna without abnormal results. Exam Const General: cooperative and comfortable Nutritional Appearance: average body habitus and well nourished HENMT Head: normal to inspection Ears: hearing grossly normal bilaterally Nose: external nose normal Face and sinus: normal facial exam Mouth: oral mucosae normal Throat: posterior oropharynx normal Eyes General: appearance normal, both eyes and all related structures Neck Neck: normal visual inspection Chest Chest palpation & inspection: normal inspection of the chest and normal palpation of entire chest wall Resp Effort & Inspection: normal respiratory effort Auscultation: Bilateral: Clear to Auscultation Cardio Palpation: normal PMI Rate: regular rate Rhythm: regular rhythm GI Inspection: normal to inspection Auscultation: normal bowel sounds Percussion: normal to percussion Palpation: no hepatosplenomegaly Skin General: no rashes or lesions noted Neuro General: patient alert Extrem General: normal to inspection Psych Affect: normal affect Quality Reporting Tobacco Screening ([facility] 138) Smoking Status: Never smoker Assessment and Plan Assessment and Plan (1) Encounter for screening for malignant neoplasm of colon: ?Status:?Acute ?Plan: Patient has a history of HCOM s/p myotomy with aortic valve replacement.? On a recent echo that showed ejection fraction of 55 to 60% without any wall motion abnormalities or regurgitation.? I do not know if there is any history of pulmonary hypertension.? He does have central sleep apnea and he uses CPAP on a daily basis.? He is not having any problems with daytime sleepiness.? He does get occasional sleepiness from beta-víctor therapy for heart disease.? He will undergo screening colonoscopy.? He was explained alternatives, risk, benefits including infection, sepsis, perforation, need for emergent . He will? have an ASA of 3. I have re-examined the patient. There are no clinical changes since date of exam.
[2022-01-08 06:11] LABS: INR Fingerstick 0.8
--- NOTE | 2022-01-08 07:09 | OP.COLON_ITS ---
Patient Name: Rojelio Elizabeth Procedure Date: 01/08/2022 6:05 AM Date of : 1970 Age: 51 Procedure: Colonoscopy Indications: Screening for colorectal malignant neoplasm Providers: Kyaw Madison DO Medicines: Monitored Anesthesia Care Patient Profile: This is a 51 year old male. Refer to note in patient chart for documentation of history and physical. Last Colonoscopy: none. The patient's first colonoscopy is today. Complications: No immediate complications. Procedure: Pre-Anesthesia Assessment: - Prior to the procedure, a History and Physical was performed, and patient medications and allergies were reviewed. The risks and benefits of the procedure and the sedation options and risks were discussed with the patient. All questions were answered and informed consent was obtained. Patient identification and proposed procedure were verified by the physician in the pre-procedure area. Mental Status Examination: alert and oriented. Airway Examination: normal oropharyngeal airway and neck mobility. Respiratory Examination: clear to auscultation. CV Examination: normal. Prophylactic Antibiotics: The patient does not require prophylactic antibiotics. Prior Anticoagulants: The patient has taken no previous anticoagulant or antiplatelet agents. ASA Grade Assessment: II - A patient with mild systemic disease. After reviewing the risks and benefits, the patient was deemed in satisfactory condition to undergo the procedure. The anesthesia plan was to use monitored anesthesia care (MAC). Immediately prior to administration of medications, the patient was re-assessed for adequacy to receive sedatives. The heart rate, respiratory rate, oxygen saturations, blood pressure, adequacy of pulmonary ventilation, and response to care were monitored throughout the procedure. The physical status of the patient was re-assessed after the procedure. After I obtained informed consent, the scope was passed under direct vision. Throughout the procedure, the patient's blood pressure, pulse, and oxygen saturations were monitored continuously. The colonoscope was introduced through the anus and advanced to the cecum, identified by appendiceal orifice and ileocecal valve. The colonoscopy was performed without difficulty. The patient tolerated the procedure well. The quality of the bowel preparation was good. Scope In: 6:40:13 AM Scope Withdrawal Time 0 hours 13 minutes 18 seconds Scope Out: 6:55:52 AM Total Procedure Duration Time 0 hours 15 minutes 39 seconds Findings: The perianal and digital rectal examinations were normal. A 5 mm polyp was found in the ascending colon. The polyp was sessile. The polyp was removed with a cold biopsy forceps. Resection and retrieval were complete. Verification of patient identification for the specimen was done. Estimated blood loss was minimal. A few small-mouthed diverticula were found in the recto-sigmoid colon and sigmoid colon. The exam was otherwise without abnormality on direct and retroflexion views. Impression: - One 5 mm polyp in the ascending colon, removed with a cold biopsy forceps. Resected and retrieved. - Diverticulosis in the recto-sigmoid colon and in the sigmoid colon. - The examination was otherwise normal on direct and retroflexion views. Recommendation: - Discharge patient to home. - Resume previous diet. - Continue present medications. - Await pathology results. - Repeat colonoscopy in 5 years for surveillance. Procedure Code(s): --- Professional --- 24441, Colonoscopy, flexible; with biopsy, single or multiple CPT copyright 2017 [employer]. All rights reserved. The codes documented in this report are preliminary and upon inspector hairspring truing review may be revised to meet current compliance requirements. Kyaw Madison DO 01/08/2022 7:09:25 AM This report has been signed electronically. Number of Addenda: 0 Note Initiated On: 01/08/2022 6:05 AM
--- NOTE | 2022-01-08 07:10 | OP.CCLET_ITS ---
01/08/2022 Scott Re : Colonoscopy procedure for Rojelio Elizabeth Dear Scott This procedure was performed on January. My impressions and recommendations are as follows: Impressions : - One 5 mm polyp in the ascending colon, removed with a cold biopsy forceps. Resected and retrieved. - Diverticulosis in the recto-sigmoid colon and in the sigmoid colon. - The examination was otherwise normal on direct and retroflexion views. Recommendations : - Discharge patient to home. - Resume previous diet. - Continue present medications. - Await pathology results. - Repeat colonoscopy in 5 years for surveillance. My findings are described in the full procedure note, which is enclosed. If I can be of further assistance, please feel free to contact me at . Sincerely, Kyaw Friend, 01/08/2022 7:09:25 AM This report has been signed electronically.
== END 2022-01-08 07:46 | disposition home or self-care (01) ==
LOC: EN 05:25 → AC 05:25
PROVIDERS: Visit Provider Internal Medicine Gastroenterology
PROC: 0DJD8ZZ Inspection of Lower Intestinal Tract, Via Natural or Artificial Opening Endoscopic (ICD-10-PCS; CPT 45378; principal; 2022-01-08 06:25)
DX: Z12.11 Encounter for screening for malignant neoplasm of colon (principal); D12.3 Benign neoplasm of transverse colon; K57.30 Diverticulosis of large intestine without perforation or abscess without bleeding; E78.00 Pure hypercholesterolemia, unspecified; G47.31 Primary central sleep apnea; K21.9 Gastro-esophageal reflux disease without esophagitis; Z79.82 Long term (current) use of aspirin; Z79.01 Long term (current) use of anticoagulants; Z79.899 Other long term (current) drug therapy; Z95.2 Presence of prosthetic heart valve
CPT/HCPCS: 45380; 36416; 88305; J7120; J2405

== ENCOUNTER 2022-03-23 10:55 | Emergency (ER) | payer OTHER, SELFPAY ==
[2022-03-23 10:56] VITALS: BP 159/83; PULSE 90; RESP 18; TEMP 36.5; O2SAT 100; BMI 30.9
--- NOTE | 2022-03-23 11:17 | EKG12_ITS ---
Test Reason : CP Blood Pressure : / mmHG Vent. Rate : 091 BPM Atrial Rate : 091 BPM P-R Int : 204 ms QRS Dur : 168 ms QT Int : 408 ms P-R-T Axes : 068 024 203 degrees QTc Int : 501 ms Normal sinus rhythm Left bundle branch block Abnormal ECG Confirmed by ROCÍO HARRIS, MICA ([id number]), senior technical editor NILDA SMITH ([id number]) on 03/24/2022 8:21:00 AM Referred By: Confirmed By:MICA ALFORD MD
[2022-03-23 11:26] LABS: Absolute Lymphocyte Count 2.27 X10^3/uL (0.83-4.51); Absolute Neutrophil Count 3.2 X10^3/uL (2.0-7.7); Basophil# 0.03 X10^3/uL; Basophil% 0.5 % (0-1); Eosinophil# 0.11 X10^3/uL; Eosinophils% 1.8 % (0-5); Hematocrit 49.1 % (40-54); Hemoglobin 16.2 g/dL (13.0-16.5); Lymphocyte # 2.27 X10^3/ul (0.83-4.51); Lymphocyte % 37.9 % (19-41); Mean Corpuscular Hgb 27.2 pg (27.0-32.0); Mean Corpuscular Volume 82.4 fL (80-94); Mean Platelet Vol. 8.9 fl (6.2-12.0); Monocyte# 0.35 X10^3/uL; Monocyte% 5.8 % (0-10); NRBC Flagged by Analyzer 0 % (0-5); Neutrophil # 3.22 X10^3/uL (2.7-7.7); Neutrophil % 53.8 % (47-70); Platelet Count 344 K/mm3 (150-450); RBC Distribution Width CV 13.6 % (11.6-14.6); RBC Distribution Width SD 40.5 fl (35.1-43.9); Red Blood Count 5.96 M/mm3 (4.6-6.2)
[2022-03-23 11:43] LABS: Anion Gap 4 (5-15); BUN 13 mg/dL (7-18); BUN/Creat Ratio 12.5 RATIO (10-20); Calcium,Total 9.4 mg/dL (8.5-10.1); Chloride 107 mmol/L (98-107); Creatinine, Serum 1.04 mg/dL (0.70-1.30); EST Glomerular Filtration Rate 80 mL/min (>60); Est Glom Filt Rate - Afr Amer 96 mL/min (>60); Estimated Creatinine Clearance 102.01 ml/min; Glucose 115 mg/dL (74-106); Potassium 3.9 mmol/L (3.5-5.1); Sodium Level 139 mmol/L (136-145); Troponin-I HS 14 pg/mL (3.0-78.0)
[2022-03-23 11:55] VITALS: BP 111/76; PULSE 85; RESP 25; O2SAT 100
[2022-03-23 11:57] VITALS: O2SAT 100
--- NOTE | 2022-03-23 12:00 | RAD_ITS ---
HISTORY: chest pain. TECHNIQUE: XR Chest 1 View. COMPARISON: None. FINDINGS: CARDIOMEDIASTINAL BORDERS: Cardiac silhouette within normal limits in size. Mediastinal contour unremarkable. Midline sternotomy and cardiac valve prosthesis noted. LUNGS: Radiographically clear. PLEURA: No pleural effusion or pneumothorax seen. OSSEOUS STRUCTURES: Unremarkable. RAD/Chest 1 View (Portable) IMPRESSION: No acute cardiopulmonary process identified. Electronically Signed: Dyana Shine MD at 12:30 EST ,
--- NOTE | 2022-03-23 12:02 | ED.VIS.CHEST ---
HPI History of Present Illness Chief Complaint: Chest Pain Informant: patient Onset/Context/Timing Onset: Days (3 to 4 days) Timing: Intermittent and Lasts (Couple minutes) Narrative Narrative: Patient present secondary to intermittent chest pain for the past 3 to 4 days. He has an extensive cardiac history secondary to hypertrophic cardiomyopathy. He has had 3 prior heart surgeries, most recent in 2013. At that time they shaved the heart muscle down and replaced a valve. He currently has a mechanical valve and is on Coumadin. 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 He is not sure if this is atypical pain more muscular in nature or cardiac. [place] [facility] Medical History Anxiety Cardiology follow-up encounter Complex sleep apnea syndrome Depression Easy bruising Excessive bleeding Gastric reflux High cholesterol History of echocardiogram History of irregular heartbeat History of stress test History of ureteral obstruction Hypercholesteremia Left bundle branch hemiblock Non-smoker Sleep apnea Home Medications metoprolol tartrate 25 mg tablet 75 mg PO DAILY 03/29/17 [History Last Taken 01/08/22 04:45] warfarin 1 mg tablet (Jantoven) 12.5 mg PO DAILY 03/29/17 [History Last Taken 01/04/22] rosuvastatin 20 mg tablet 20 mg PO DAILY 02/18/20 [History Last Taken Unknown] acetaminophen 325 mg tablet 650 mg PO Q6H PRN PRN Pain Score 1-10/Temp > 100.7 F 02/19/20 [Rx Last Taken Unknown] enoxaparin 120 mg/0.8 mL subcutaneous syringe 110 mg (0.7333 mL) subcut Q12@0600,1800 #14 syringes 02/19/20 [Rx Last Taken 01/07/22] aspirin 325 mg tablet 81 mg PO DAILY@0800 09/16/21 [History Last Taken Unknown] melatonin 10 mg tablet 10 mg PO QHS 01/01/22 [History Last Taken Unknown] Allergy/AdvReac Type Severity Reaction Status Date / Time codeine AdvReac Other Verified 01/08/22 05:41 Family History Sister Colon cancer Father CAD (coronary artery disease) Myocardial infarction Surgical History History of cardiac catheterization History of open heart surgery History of tonsillectomy and adenoidectomy History of ventricular septal myectomy Hx of colonoscopy S/P MVR (mitral valve replacement) Social History Smoking Status: Never smoker ROS ROS ED Constitutional Constitutional ED: Denies chills or fever(s) Eyes Eyes: Denies change in vision or discharge from eye(s) ENT ENT ED: Denies discharge from eye(s), rhinorrhea or sore throat Cardiovascular Cardiovascular: Reports chest pain; Denies palpitations Respiratory/Chest Respiratory/Chest: Denies cough or dyspnea Gastrointestinal Gastrointestinal: Denies abdominal pain, diarrhea, nausea or vomiting Genitourinary Genitourinary ED: Denies dysuria Musculoskeletal Musculoskeletal: Denies back pain or extremity pain Integumentary Denies Abrasions or rash Neurologic Neurologic: Denies headache(s) or weakness Allergic/Immunologic Allergic/Immunologic ED: Denies lip swelling or urticaria EXAM Physical Exam Const Vital Signs: 03/23/22 10:56 03/23/22 11:55 03/23/22 11:57 Temperature 97.7 F L Temperature Source Temporal Pulse Rate 90 85 Respiratory Rate 18 25 H Respiratory Effort Blood Pressure 159/83 H 111/76 Blood Pressure Mean 108 87 Pulse Ox 100 100 100 Oxygen Delivery Method Room Air Room Air Room Air 03/23/22 11:57 03/23/22 13:18 Temperature Temperature Source Pulse Rate 83 Respiratory Rate 20 H Respiratory Effort Normal Non-Labored Blood Pressure 110/80 Blood Pressure Mean 90 Pulse Ox 99 Oxygen Delivery Method Positive well nourished and well developed General Appearance ED: well developed HEENT Reports normocephalic and head/scalp atraumatic Eyes PERRL and EOMs intact bilaterally Neck supple Chest Wall inspection of chest normal Chest Narrative: Some reproducible tenderness on the right sternal border along the edge of his prior incision. No crepitus. No sign of infection. 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 EKG, chest x-ray, lab work obtained. Lab Data Attestation: I reviewed the patient's lab results. Labs: Laboratory Results - last 24 hr 03/23/22 03/23/22 03/23/22 11:15 11:15 12:30 WBC 6.0 RBC 5.96 Hgb 16.2 Hct 49.1 MCV 82.4 MCH 27.2 MCHC 33.0 RDW Std Deviation 40.5 RDW Coeff of Kingsley 13.6 Plt Count 344 MPV 8.9 Immature Gran % (Auto) 0.200 Neut % (Auto) 53.8 Lymph % (Auto) 37.9 [place] % (Auto) 5.8 Eos % (Auto) 1.8 Baso % (Auto) 0.5 Absolute Neuts (auto) 3.2 Absolute Lymphs (auto) 2.27 Nucleated RBC % 0 PT 22.7 H INR 2.0 Sodium 139 Potassium 3.9 Chloride 107 Carbon Dioxide 28.0 Anion Gap 4 L BUN 13 Creatinine 1.04 Estim Creat Clear Calc 102.01 Est GFR (MDRD) Af Amer 96 Est GFR (MDRD) Non-Af 80 BUN/Creatinine Ratio 12.5 Glucose 115 H Calcium 9.4 Troponin I High Sens 14 Radiography Chest X-Ray - ED: 1 View, Read by ED Physician, Chronic Changes and No Infiltrates Diagnostic Testing: Clinical Impression(s) from Imaging Studies Chest X-Ray 03/23/22 12:00 IMPRESSION: No acute cardiopulmonary process identified. Electronically Signed: Dyana Shine MD at 12:30 EST , EKG Initial EKG: Attestation: I personally reviewed and interpreted this EKG as follows: Interpretation: Sinus Rhythm (Sinus at 91 with hypertrophic changes. Left bundle branch block present. No prior EKGs to compare to, however I do have rhythm strip with similar appearance.) Treatment and Re-Evaluation Narrative: On repeat evaluation patient resting comfortably. Test results discussed with patient and . EKG reveals chronic changes with no acute ischemia. Chest x-ray reveals no focal acute findings per my interpretation. Radiology interpretation is reviewed. CBC is normal. Chemistry studies unremarkable. Troponin is normal at 14. INR is 2.0. He states he is supposed to be between 2-1/2 and 3-1/2 given his mechanical valve. He will take an extra half dose of Coumadin tonight. Return instructions provided. Discharge Plan Triage Chief Complaint: Chest Pain ED Provider: Yelitza Patrick Dx/Rx/DC Orders Clinical Impression: Atypical chest pain Instructions: ED Chest Pain, Noncardiac Prescriptions: No Action warfarin [Jantoven] 1 MG tablet 12.5 mg PO DAILY Label Comments: LAST DAY TO TAKE PRIOR TO OR 01/03/22 THEN BRIDGING W/ LOVENOX Rx Instructions: 12.5mg EVERY OTHER DAY 15 mg THURS & SAT metoprolol tartrate 25 MG tablet 75 mg PO DAILY aspirin 325 mg tablet 81 mg PO DAILY@0800 rosuvastatin 20 MG tablet 20 mg PO DAILY acetaminophen 325 MG tablet 650 mg PO Q6H PRN PRN (Reason: Pain Score 1-10/Temp > 100.7 F) 0RF enoxaparin 120 MG/0.8 ML syringe 110 mg SC Q12@0600,1800 Qty: 14 0RF Label Comments: STARTING 01/05/22 melatonin 10 mg Tablet 10 mg PO QHS Primary Care Provider: NAKIA WAYNE Referrals: NAKIA WAYNE [Other] Activity Restrictions/Additional Instructions: Follow-up with your alteration tailor apprentice at [facility] as needed. Return for any worsened symptoms or concerns. Disposition Disposition: Home, Self Care
[2022-03-23 12:46] LABS: Prothrombin Time (Protime)PT. 22.7 SECONDS (11.7-14.9)
[2022-03-23 13:18] VITALS: BP 110/80; PULSE 83; RESP 20; O2SAT 99
[2022-03-23 14:04] VITALS: BP 113/75; PULSE 75; RESP 20; O2SAT 99
== END 2022-03-23 14:07 | disposition home or self-care (01) ==
PROVIDERS: Emergency Provider Emergency Medicine; Visit Provider Emergency Medicine
DX: R07.89 Other chest pain (principal); I42.2 Other hypertrophic cardiomyopathy; E78.00 Pure hypercholesterolemia, unspecified; Z79.82 Long term (current) use of aspirin; Z79.01 Long term (current) use of anticoagulants; Z79.899 Other long term (current) drug therapy; Z95.2 Presence of prosthetic heart valve
CPT/HCPCS: 71045; 80048; 84484; 85025; 85610; 93005; 99285; A4216

== ENCOUNTER → 2022-10-05 | Outpatient (CLI) | payer OTHER, SELFPAY ==
--- NOTE | 2022-10-05 11:51 | NM_ITS ---
CLINICAL: 52-year-old male with history of clinical gastroparesis. SEMI-SOLID PHASE 99m Tc SULFUR COLLOID GASTRIC EMPTYING STUDY COMPARISON: None available FINDINGS: The patient was administered 1.0 mCi of 99m Tc sulfur colloid mixed with oatmeal and consumed per os. Image acquisitions in the anterior-posterior projections were obtained for 60 minutes. There is prompt visualization of the stomach. There is no gastroesophageal reflux identified. The T ? raw data emptying was calculated to be 17.07 minutes, (Normal: 12-56 minutes). NM/Gastric Emptying Study IMPRESSION: 1. NORMAL 99m Tc sulfur colloid semi-solid phase (oatmeal) gastric emptying imaging examination. A. There is normal and preserved semi-solid phase gastric emptying compared to normal controls. (Marianne et al, J Nucl Med Tech 38: 186, 2010). Electronically Signed: Landon Chiu, at 8:16 EDT ,
== END | disposition home or self-care (01) ==
LOC: NM 11:47
PROVIDERS: Referring Provider Internal Medicine Gastroenterology; Visit Provider Internal Medicine Gastroenterology
DX: R10.9 Unspecified abdominal pain (principal)
CPT/HCPCS: 78264; A9541

== ENCOUNTER 2022-11-10 10:44 | Day surgery (SDC) | payer OTHER, SELFPAY ==
[2022-11-10] VITALS (8 sets, daily range): BP systolic 107–132; BP diastolic 68–90; PULSE 65–73; RESP 14–20; TEMP 36–36.5; O2SAT 97–100; BMI 28.3
--- NOTE | 2022-11-10 | GASB_PTH ---
PATIENT: GEORGIE PAREKH LOC: EN U#:[id number] AGE/SX: 52/M ROOM: RE11/10/[address]: Dr. Kyaw Madison DO : 1970 BED: DIS: 11/10/2022 SPEC #: [id number] RECD: 11/10/22 14:27 STATUS: DYLAN JOSE #: [id number] KEIRA: 11/10/22 00:[address]: Kyaw Madison DEPT: SURGICAL PATHOLOGY RECD BY: Sergio Martin Tissues: A - Duodenum, NOS B - Gastric mucous membrane C - Gastric mucous membrane D - Esophageal mucous membrane Procedures: Special Stain Group II Surgery Specimen Level IV Alcian Blue/PAS (control) HEADER OPERATION: EGD with biopsies PRE-OP DIAGNOSIS: Gallstones, abdominal pain TISSUE SUBMITTED: A. Duodenum, B. Antrum, C. Gastric cardia, D. Distal esophagus MICROSCOPIC DIAGNOSIS A. Duodenum, biopsy: No pathologic change. B. Antrum, biopsy: Mild chronic inflammation. C. Gastric cardia, biopsy: Mild chronic inflammation. D. Distal esophagus, biopsy: Gastro esophageal junctional mucosa with mild chronic inflammation. Focal changes of reflux. 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 No evidence of dysplasia. See Comment. AM:am 11/12/22 COMMENT B. The results of immunohistochemistry for Helicobacter pylori will be reported separately ([id number]). D. Alcian blue/PAS stain with matched control is used in the evaluation of the specimen. Immunohistochemistry ([id number]) supports the diagnosis. MICROSCOPIC DESCRIPTION Slides are reviewed. GROSS DESCRIPTION A. Received is one container labeled with the patient name and designated duodenum. The specimen consists of multiple irregular fragments of light oden soft tissue that in aggregate measure 1 x 0.3 x 0.1 cm. The specimen is totally submitted in one cassette. B. Received is one container labeled with the patient name and designated antrum. The specimen consists of two irregular fragments of light oden soft tissue that in aggregate measure 0.8 x 0.4 x 0.1 cm. The specimen is totally submitted in one cassette. C. Received is one container labeled with the patient name and designated gastric cardia. The specimen consists of two irregular fragments of light oden soft tissue that in aggregate measure 0.8 x 0.6 x 0.1 cm. The specimen is totally submitted in one cassette. D. Received is one container labeled with the patient name and designated distal esophagus. The specimen consists of multiple irregular fragments of light oden soft tissue that in aggregate measure 0.6 x 0.6 x 0.1 cm. The specimen is totally submitted in one cassette. / SJ:cc 11/11/22 TC:3 CPT:15079 x4,37534
--- NOTE | 2022-11-10 | IMM_PTH ---
PATIENT: GEORGIE PAREKH LOC: EN U#:[id number] AGE/SX: 52/M ROOM: RE11/10/[address]: Dr. Kyaw Madison DO : 1970 BED: DIS: 11/10/2022 SPEC #: [id number] RECD: 11/12/22 06:39 STATUS: DYLAN JOSE #: [id number] KEIRA: 11/10/22 00:[address]: Kyaw Madison DEPT: IMMUNOHISTOCHEMISTRY RECD BY: Vishnu Hassan Tissues: B - Gastric mucous membrane Procedures: H Pylori (initial) P53 (initial) KI-67 (add) PHYSICIAN & INSTITUTION [place] [id number] SPECIMEN INFORMATION: Tissue Source: B. Antrum, D. Distal esophagus Clinical Info: Gallstones, abdominal pain Specimen Number: [id number] B, D CPT code: 06751 x2, 33447 METHODOLOGY: Deparaffinized sections of prefer/formalin-fixed tissue or PAP/DQ stained slides are incubated with monoclonal/polyclonal antibodies/oligonucleotide probes. Localization is made via biotin free immunoperoxidase method. Appropriate controls are performed and reacted as expected. Results on target cell population are indicated in the following table: RESULTS: ANTIBODY / CLONE RESULT Block A H Pylori (polyclonal) negative Block D P53 (DO-7) negative, wild type pattern Ki-67 (30-9) positive, low These tests were developed and their performance characteristics determined by [facility]. They may not have been cleared or approved by the U.S. Food and Drug Administration. The FDA has determined that such clearance or approval is not necessary. The above immunohistochemical/dualISH markers are ordered and reviewed by the Pathologist. INTERPRETATION: B. Antrum, biopsy: -Negative for Helicobacter pylori organisms. D. Distal esophagus, biopsy; -No evidence of dysplasia AM:cc 11/13/22
[2022-11-10] MEDS: Lactated Ringers 1,000 ML 15 ML IV (11:00)
--- NOTE | 2022-11-10 12:15 | PCM.HP.BLA ---
History and Physical Date of Admission: 11/10/22 GEORGIE PAREKH, is a 52 M who presents to the office today for PMH obstructive cardiomyopathy requiring three open heart surgeries with septal myomectomy and mitral valve replacement with post op mitral insufficiency requiring use of blood thinners. FH colon cancer age 46. *[facility] established 7.10.22 for screening colonoscopy; OA attempted but too many comorbidities prevented this avenue. Denied GI symptoms today. Colonoscopy with Dr. Acuna, reports as normal. ? Colonoscopy 01.08.22 [facility] 5mm sessile ascending colon TA polyp; diverticulosis. OV 01.22.22 No Show PCP seen with abdominal pain. ? CT abd/pel 08.12.22 [facility] gallbladder stones of increasing size; nonobstructing left renal calculi; low attenuation renal lesion; colonic diverticulosis. ? US RUQ 08.13.22 [facility] hepatic steatosis; multiple shadowing gallstones. ? HIDA scan 08.21.22 [facility] EF 68% OV 5..23 he is having abdominal pain of RUQ with bloating; symptoms are occurring most of the time and are worsened with PO intake. ROS Const Constitutional: No anorexia, fatigue, fever(s), weight change or sleep problems Eyes Eyes: No change in vision ENT ENT: No abnormal hearing, difficulty swallowing, mouth lesions, tongue swelling or throat swelling Resp Respiratory: No cough or shortness of breath Cardio Cardiology: No chest pain at rest, chest pain with exertion, shortness of breath or dyspnea on exertion Gastro GI: No difficulty swallowing Genitourinary Male: No difficulty urinating or burning urination Musc Musculoskeletal: No joint pain, joint swelling, muscle weakness or decreased muscle mass Skin Skin: No hair loss in leg, yellowing of the eye, itchy eyes, rash, skin ulcer or skin swelling Neuro Neurology: No abnormal hearing, abnormal movements, confusion, unsteady gait/balance or memory loss Psych Psychiatric: No anxiety, No confusion and No memory loss Endo Endocrine: No fatigue or weight change Aller/Imm Allergy/Immunologic: No itchy eyes, throat swelling or tongue swelling Aly/Lymp Hematologic/Lymphatic: No easy bleeding, easy bruising or enlarged lymph nodes Exam Const General: cooperative and comfortable Nutritional Appearance: average body habitus and well nourished HENMT Head: normal to inspection Ears: hearing grossly normal bilaterally Nose: external nose normal Face and sinus: normal facial exam Mouth: oral mucosae normal Throat: posterior oropharynx normal Eyes General: appearance normal, both eyes and all related structures Neck Neck: normal visual inspection Chest Chest palpation & inspection: normal inspection of the chest and normal palpation of entire chest wall Resp Effort & Inspection: normal respiratory effort Auscultation: Bilateral: Clear to Auscultation Cardio Palpation: normal PMI Rate: regular rate Rhythm: regular rhythm GI Inspection: normal to inspection Auscultation: normal bowel sounds Percussion: normal to percussion Palpation: no hepatosplenomegaly Skin General: no rashes or lesions noted Neuro General: patient alert Extrem General: normal to inspection Psych Affect: normal affect Quality Reporting Tobacco Screening ([facility] 138) Smoking Status: Never smoker Assessment and Plan Assessment and Plan (1) Gallstones: Status: Chronic Plan: I do not think he needs evaluation for surgery at this time due to his cholestasis not involving any gallbladder wall thickening or poor ejection fraction. I think weight loss is contributing to the formation of his cholelithiasis. We will start him on ursodiol 300 mg p.o. twice daily. (2) Abdominal pain: Status: Acute Plan: The differential diagnosis for his abdominal pain does include gastroparesis, bile induced gastritis, small bacterial overgrowth, motility dysfunction of the small bowel and less likely exocrine pancreatic insufficiency. Also this could be medication side effect due to the multiple medicines including warfarin and aspirin that he needs to take for his history of hypertrophic cardiomyopathy. He has not experienced any chest pain or shortness of breath. He should undergo an upper endoscopy to evaluate his upper GI tract for possible complications from medicines that he is taking for his underlying heart disease, H. pylori associated gastritis or peptic ulcer disease, hypertrophic pyloric stenosis that is associated with hypertrophic cardiomyopathy. I will also put him on Dexilant as opposed to sulcal fate on him as a postal as it could interfere with the absorption capacity of warfarin. There is some P450 in addition from sulcal fate administer ProSol that will definitely affect coagulation cascade in a patient on warfarin. I have examined the patient and the H&P has been reviewed. There are no clinical changes since date of exam.
--- NOTE | 2022-11-10 12:49 | OP.EGD_ITS ---
Patient Name: Rojelio Elizabeth Procedure Date: 11/10/2022 11:58 AM Date of : 1970 Age: 52 Procedure: Upper GI endoscopy Indications: Epigastric abdominal pain Providers: Kyaw Madison DO Medicines: Monitored Anesthesia Care Patient Profile: This is a 52 year old male. This is a 52 year old male. Refer to note in patient chart for documentation of history and physical. Patient has symptoms of chronic abdominal distention and chronic epigastric abdominal pain. Complications: No immediate complications. Procedure: Pre-Anesthesia Assessment: - Prior to the procedure, a History and Physical was performed, and patient medications and allergies were reviewed. The risks and benefits of the procedure and the sedation options and risks were discussed with the patient. All questions were answered and informed consent was obtained. Patient identification and proposed procedure were verified by the physician. Mental Status Examination: normal. CV Examination: normal. Prophylactic Antibiotics: The patient does not require prophylactic antibiotics. Prior Anticoagulants: The patient has taken no previous anticoagulant or antiplatelet agents. ASA Grade Assessment: II - A patient with mild systemic disease. After reviewing the risks and benefits, the patient was deemed in satisfactory condition to undergo the procedure. The anesthesia plan was to use monitored anesthesia care (MAC). Immediately prior to administration of medications, the patient was re-assessed for adequacy to receive sedatives. The heart rate, respiratory rate, oxygen saturations, blood pressure, adequacy of pulmonary ventilation, and response to care were monitored throughout the procedure. The physical status of the patient was re-assessed after the procedure. After obtaining informed consent, the endoscope was passed under direct vision. Throughout the procedure, the patient's blood pressure, pulse, and oxygen saturations were monitored continuously. The Endoscope was introduced through the mouth, and advanced to the second part of duodenum. The upper GI endoscopy was accomplished without difficulty. The patient tolerated the procedure well. Scope In: 12:27:17 PM Scope Out: 12:36:48 PM Total Procedure Duration Time 0 hours 9 minutes 31 seconds Findings: LA Grade B (one or more mucosal breaks greater than 5 mm, not extending between the tops of two mucosal folds) esophagitis with no bleeding was found 38 to 41 cm from the incisors. Biopsies were taken with a cold forceps for histology. Verification of patient identification for the specimen was done. Estimated blood loss was minimal. Patchy mildly erythematous mucosa without bleeding was found in the cardia, in the gastric body and in the gastric antrum. Biopsies were taken with a cold forceps for histology. Verification of patient identification for the specimen was done. Estimated blood loss was minimal. There was also a small hiatal hernia seen. Diffuse mildly erythematous mucosa without active bleeding and with no stigmata of bleeding was found in the first portion of the duodenum. Bilious fluid was found in the gastric body. Impression: - LA Grade B reflux esophagitis. Biopsied. - Erythematous mucosa in the cardia, gastric body and antrum. Biopsied. - Erythematous duodenopathy. - Bilious gastric fluid. Recommendation: - Discharge patient to home. - Resume previous diet. - Continue present medications. - Await pathology results. -Gastric emptying study Procedure Code(s): --- Professional --- 75067, Esophagogastroduodenoscopy, flexible, transoral; with biopsy, single or multiple CPT copyright 2017 [employer]. All rights reserved. The codes documented in this report are preliminary and upon motor vehicle dispatcher review may be revised to meet current compliance requirements. Kyaw Madison DO 11/10/2022 12:48:57 PM This report has been signed electronically. Number of Addenda: 0 Note Initiated On: 11/10/2022 11:58 AM
[2022-11-10 13:42] LABS: INR Fingerstick 1.1; Prothrombin Time Fingerstick 12.1 SEC (11.7-14.9)
== END 2022-11-10 13:50 | disposition home or self-care (01) ==
LOC: EN 10:56 → AC 11:16
PROVIDERS: Referring Provider Internal Medicine Gastroenterology; Visit Provider Internal Medicine Gastroenterology
PROC: 0DJ08ZZ Inspection of Upper Intestinal Tract, Via Natural or Artificial Opening Endoscopic (ICD-10-PCS; CPT 43235; principal; 2022-11-10 11:55)
DX: K22.70 Barrett's esophagus without dysplasia (principal); K80.20 Calculus of gallbladder without cholecystitis without obstruction; K21.00 Gastro-esophageal reflux disease with esophagitis, without bleeding; K29.50 Unspecified chronic gastritis without bleeding; Z79.82 Long term (current) use of aspirin; Z79.899 Other long term (current) drug therapy; E78.00 Pure hypercholesterolemia, unspecified
CPT/HCPCS: 43239; 36416; 85610; 88305; 88313; 88341; 88342; J7120

== ENCOUNTER 2023-04-20 18:13 | Emergency (ER) | payer OTHER, SELFPAY ==
[2023-04-20 18:14] VITALS: BP 107/96; PULSE 91; RESP 18; TEMP 36.7; O2SAT 97; BMI 28.3
--- NOTE | 2023-04-20 18:29 | EDS_ITS ---
HPI History of Present Illness Chief Complaint: Fever Informant: patient Narrative Narrative: Presents to the ED for evaluation developing fever with UTI symptoms. He started having symptoms 2 days ago urine frequency urgency with back pain. He went to express care yesterday started on Bactrim took 2 doses morning he started having headaches called back to change of Keflex took 1 dose. He developed a fever states 100.7. Told go to ED if he develops a fever. He still has urinary symptoms. Denies vomiting or diarrhea. Denies cough. Does report muscle aches. Denies sick contacts. Had COVID back in January. History of mechanical valve replacement 2013 with hypertrophic cardiomyopathy on warfarin. He has had similar symptoms UTIs in the past. Prior similar symptoms: Yes PFSH [facility] Medical History Cardiology follow-up encounter Complex sleep apnea syndrome Easy bruising Excessive bleeding Gastric reflux High cholesterol History of echocardiogram History of irregular heartbeat History of stress test History of ureteral obstruction Hypercholesteremia Left bundle branch hemiblock Non-smoker Sleep apnea Home Medications metoprolol tartrate 25 mg tablet 75 mg PO DAILY 03/29/17 [History Last Taken 01/08/22 04:45] warfarin 1 mg tablet (Jantoven) 12.5 mg PO DAILY 03/29/17 [History Last Taken 01/04/22] rosuvastatin 20 mg tablet 20 mg PO DAILY 02/18/20 [History Last Taken Unknown] acetaminophen 325 mg tablet 650 mg (2 x 325 mg) PO Q6H PRN PRN Pain Score 1- 10/Temp > 100.7 F 02/19/20 [Rx Last Taken Unknown] aspirin 325 mg tablet 81 mg PO DAILY@0800 09/16/21 [History Last Taken Unknown] melatonin 10 mg tablet 10 mg PO QHS 01/01/22 [History Last Taken Unknown] pantoprazole 40 mg tablet,delayed release (Protonix) 40 mg PO .COMPLEX #60 tabs 11/18/22 [Rx Last Taken Unknown] cholestyramine (with sugar) 4 gram powder for susp in a packet 4 g PO DAILY #60 ea 12/16/22 [Rx Last Taken Unknown] cefuroxime axetil 500 mg tablet 500 mg PO BID #14 tabs 04/20/23 [Rx Last Taken Unknown] Allergy/AdvReac Type Severity Reaction Status Date / Time codeine AdvReac Other Verified 04/20/23 18:14 Family History Sister Colon cancer Father CAD (coronary artery disease) Myocardial infarction Surgical History History of cardiac catheterization History of open heart surgery History of tonsillectomy and adenoidectomy History of ureter repair History of ventricular septal myectomy Hx of colonoscopy S/P MVR (mitral valve replacement) Social History Smoking Status: Never smoker ROS ROS ED Constitutional Constitutional ED: Reports fever(s); Denies chills or sweats Eyes Eyes: Denies change in vision ENT ENT ED: Denies dysphagia or sore throat Cardiovascular Cardiovascular: Denies chest pain, leg edema, palpitations or racing heartbeat Respiratory/Chest Respiratory/Chest: Denies cough, dyspnea or dyspnea on exertion Gastrointestinal Gastrointestinal: Denies abdominal pain, diarrhea, nausea or vomiting Genitourinary Genitourinary ED: Reports urinary frequency and other Details: Urgency ; Denies dysuria or hematuria Musculoskeletal Musculoskeletal: Denies back pain, extremity pain or neck pain Integumentary Denies rash or wounds Neurologic Neurologic: Denies headache(s), paresthesias or weakness EXAM Physical Exam Const Vital Signs: 04/20/23 18:14 04/20/23 18:33 Temperature 98.1 F Temperature Source Temporal Pulse Rate 91 Respiratory Rate 18 Respiratory Pattern Normal Blood Pressure 107/96 H Blood Pressure Mean 99 Pulse Ox 97 Oxygen Delivery Method Room Air Positive well nourished and well developed General Appearance ED: well developed and NAD HEENT Reports dry mucous membranes normocephalic and atraumatic Mouth ED: Yes dry mucous membranes Mouth: dry mucous membranes Eyes PERRL, EOMs intact bilaterally and conjunctivae normal General Eye ED: Yes normal appearance of both eyes Neck no lymphadenopathy and supple General: Negative for tenderness Chest Wall Chest: Negative for tenderness Resp normal respiratory effort and normal air movement Effort and Inspection: symmetric chest movement; Negative for respiratory distress Cardio regular rate, regular rhythm and no murmurs Peripheral Pulses: pulses 2+ throughout GI normal to inspection, nondistended, normoactive bowel sounds GI Narrative: Mild suprapubic tenderness. No guarding or rebound. Palpation: Negative for guarding or rebound tenderness present Back/Spine no CVA tenderness and no thoracic nor lumbar tenderness Extremity normal to inspection General Extremety ED: Negative for edema or tenderness General Extremity: Negative for edema Neuro oriented x3 and no sensory deficits noted Sensorium / Orientation: awake and alert Skin no rashes or lesions noted and no wounds MDM MDM MDM Narrative Medical decision making narrative: Interventions / MDM: Differential diagnosis: Complicated UTI, kidney stones, electrolyte abnormalities Diagnosis considered but do not suspect: No clinical pneumonia My EKG interpretation: N/A Imaging independently reviewed and interpreted by myself: CT abdomen pelvis without contrast: Nephrolithiasis, cholelithiasis, no obstructive process. Also read by radiology. External documents reviewed: N/A Test considered but not ordered:N/A ED course: Patient afebrile on arrival dry mucosal membranes. IV established fluids were drawn, labs urine urine culture. COVID and flu testing. COVID and flu negative labs white count 18 .9, creatinine 0.98, he is subtherapeutic on his INR with his mechanical valve at 2.0. Urine noted some signs of infection. Discussed with patient is symptomatic he has been on 2 days of different antibiotics therefore likely improving. Cultures pending. However there was hematuria, he is having back pain and fever that is new, discussed further testing with imaging rule out any obstructive process. He agrees. This was obtained. Nonobstructive process nephrolithiasis with cholelithiasis. He has been ambulated department nontoxic. Discussed treatment for complicated UTI. He is unclear on the quantity of his Keflex he is only taken 1 dose. Will switch him over to cefuroxime twice a day for 7 days. He will hold his other antibiotics. He will follow-up with his PCP. All questions were answered. Re-evaluation: stable Disposition discussed with patient/family/significant other: Patient Case discussed with consulting clinician: N/A This note was generated with triptap dictation software. It may contain incorrect words, spelling, and punctuation that were not noted in checking the note before signing. Lab Data Attestation: I reviewed the patient's lab results. Labs: Laboratory Results - last 24 hr 04/20/23 04/20/23 18:40 18:43 WBC 18.9 H RBC 5.20 Hgb 14.0 Hct 43.4 MCV 83.5 MCH 26.9 L MCHC 32.3 RDW Std Deviation 43.1 RDW Coeff of [place] 14.2 Plt Count 409 MPV 8.9 Immature Gran % (Auto) 0.300 Neut % (Auto) 76.8 H Lymph % (Auto) 12.4 L [place] % (Auto) 10.0 Eos % (Auto) 0.1 Baso % (Auto) 0.4 Absolute Neuts (auto) 14.5 H Absolute Lymphs (auto) 2.35 Nucleated RBC % 0 Differential Comment SCANNED Diff Path Review August foll PT 22.7 H INR 2.0 Sodium 135 L Potassium 4.0 Chloride 105 Carbon Dioxide 26.0 Anion Gap 4 L BUN 13 Creatinine 0.98 Estim Creat Clear Calc 109.86 Est GFR (MDRD) Af Amer 103 Est GFR (MDRD) Non-Af 85 BUN/Creatinine Ratio 13.2 Glucose 106 Calcium 9.4 Urine Color Yellow Urine Clarity Clear Urine pH 8.0 Ur Specific [place] 1.010 Urine Protein Negative Urine Glucose (UA) Normal Urine Ketones Negative Urine Occult Blood 250 H Urine Nitrite Negative Urine Bilirubin Negative Urine Urobilinogen Normal Ur Leukocyte Esterase 25 H Urine RBC 10-25 SEEN Urine WBC 0-5 SEEN Ur Squamous Epith Cells 0 SEEN Urine Bacteria 0 SEEN Urine Mucus 0 SEEN Radiography Diagnostic Testing: Clinical Impression(s) from Imaging Studies Abdomen/Pelvis CT 04/20/23 20:10 IMPRESSION: 1. Cholelithiasis. No CT evidence of cholecystitis. 2. Multiple left renal calyceal stones, the largest in the lower pole measuring up to 7 mm. No ureteral stones or hydronephrosis. 3. Colonic diverticulosis without discrete evidence of acute diverticulitis. Electronically Signed: Luis Padilla DO at 20:35 EST , Discharge Plan Triage Chief Complaint: Fever ED Provider: Francisco De La Torre Dx/Rx/DC Orders Clinical Impression: Complicated UTI (urinary tract infection), Nephrolithiasis, Leukocytosis, Gallstones Instructions: ED Bladder Infection, Male (Adult) Prescriptions: New cefuroxime axetil 500 mg tablet 500 mg PO BID Qty: 14 0RF No Action warfarin [Jantoven] 1 MG tablet 12.5 mg PO DAILY Patient Comments: LAST DAY TO TAKE PRIOR TO OR 01/03/22 THEN BRIDGING W/ LOVENOX Rx Instructions: 12.5mg , , SA, ELI 15 mg MO, WE, FR metoprolol tartrate 25 MG tablet 75 mg PO DAILY aspirin 325 mg tablet 81 mg PO DAILY@0800 rosuvastatin 20 MG tablet 20 mg PO DAILY acetaminophen 325 MG tablet 650 mg PO Q6H PRN PRN (Reason: Pain Score 1-10/Temp > 100.7 F) 0RF melatonin 10 mg Tablet 10 mg PO QHS pantoprazole [Protonix] 40 mg tablet,delayed release (DR/EC) 40 mg PO .COMPLEX Qty: 60 7RF Rx Instructions: take 40 mg orally two times a day for eight weeks then once daily cholestyramine (with sugar) 4 gram powder in packet 4 g PO DAILY Qty: 60 11RF Rx Instructions: administer w/meal; avoid other meds within 1hr before Primary Care Provider: Care Physician,No Primary Referrals: NAKIA WAYNE [Other] - 1 Week Activity Restrictions/Additional Instructions: Workup mild infection in the urine, might be clearing up as you have been on 2 days of antibiotics. White count 18. Normal creatinine 0.98. Your INR is 2.0. CT scan notes stones in your left kidney, there are none moving out to cause any problems. You have incidental gallstones. You were given Rocephin IV. Stop the Keflex, take cefuroxime as prescribed. Follow-up with your doctor. COVID and flu are negative Disposition Disposition: Home, Self Care Discharge Date/Time: 04/20/23 21:26
[2023-04-20] MEDS: 0.9% Normal Saline (1000mL) 1,000 ML 1000 ML IV (18:52)
[2023-04-20 18:53] LABS: Bacteria 0 SEEN /hpf (None Seen); Mucous, Urine 0 SEEN /hpf (<or=2+); Squamous Epithelial Cells - UA 0 SEEN /hpf (0-5)
[2023-04-20 19:01] LABS: Absolute Lymphocyte Count 2.35 X10^3/uL (0.83-4.51); Absolute Neutrophil Count 14.5 X10^3/uL (2.0-7.7); Basophil# 0.07 X10^3/uL; Basophil% 0.4 % (0-1); Eosinophil# 0.02 X10^3/uL; Eosinophils% 0.1 % (0-5); Hematocrit 43.4 % (40-54); Lymphocyte # 2.35 X10^3/ul (0.83-4.51); Lymphocyte % 12.4 % (19-41); Mean Corp Hgb Conc 32.3 g/dL (32-36); Mean Corpuscular Hgb 26.9 pg (27.0-32.0); Mean Corpuscular Volume 83.5 fL (80-94); Mean Platelet Vol. 8.9 fl (6.2-12.0); Monocyte# 1.89 X10^3/uL; NRBC Flagged by Analyzer 0 % (0-5); Neutrophil # 14.54 X10^3/uL (2.7-7.7); Neutrophil % 76.8 % (47-70); POSITIVE DIFFERENTIAL YES; Platelet Count 409 K/mm3 (150-450); RBC Distribution Width CV 14.2 % (11.6-14.6); RBC Distribution Width SD 43.1 fl (35.1-43.9); White Blood Count 18.9 K/mm3 (4.4-11.0)
[2023-04-20 19:02] LABS: Differential Indicated SCAN CRITERIA MET
[2023-04-20 19:02] LABS: Color, Urine Yellow (Yellow); Glucose, Dipstick Normal (Normal); Ketone-Dipstick Negative (Negative); Leukocyte Esterase-Dipstick 25 /ul (Negative); Nitrite-Dipstick Negative (Negative); Occult Blood-Urine 250 /ul (Negative); Protein-Dipstick Negative (Negative); Urine Bilirubin Dipstick Negative (Negative); Urine Clarity Clear (Clear); Urine Urobilinogen Normal (Normal)
[2023-04-20 19:12] LABS: Red Blood Cells-Urine 10-25 SEEN /hpf (0-5); White Blood Cells 0-5 SEEN /hpf (0-5)
[2023-04-20 19:18] LABS: Prothrombin Time (Protime)PT. 22.7 SECONDS (11.7-14.9)
[2023-04-20 19:21] LABS: Anion Gap 4 (5-15); BUN 13 mg/dL (7-18); BUN/Creat Ratio 13.2 RATIO (10-20); Calcium,Total 9.4 mg/dL (8.5-10.1); Chloride 105 mmol/L (98-107); Creatinine, Serum 0.98 mg/dL (0.70-1.30); EST Glomerular Filtration Rate 85 mL/min (>60); Est Glom Filt Rate - Afr Amer 103 mL/min (>60); Estimated Creatinine Clearance 109.86 ml/min; Glucose 106 mg/dL (74-106); Sodium Level 135 mmol/L (136-145)
[2023-04-20 19:23] LABS: Differential Comment SCANNED
--- NOTE | 2023-04-20 20:10 | CT_ITS ---
EXAM: CT ABDOMEN AND PELVIS WITHOUT INTRAVENOUS CONTRAST CLINICAL INDICATION: flank pain TECHNIQUE: Helically acquired images were obtained of the abdomen and pelvis without intravenous contrast. This CT exam was performed using one or more of the following dose reduction techniques: automated exposure control, adjustment of the mA and/or kV according to patient size, and/or use of iterative reconstruction technique. COMPARISON: CT abdomen and pelvis, 02/18/2020 FINDINGS: LOWER THORAX: Granuloma in the right middle lobe. Coronary artery calcifications. Apparent mitral valve replacement/repair. Small hiatal hernia. Minimal basilar airspace disease most in the left is likely atelectasis rather than pneumonia. No cardiomegaly. No significant pericardial effusion. ABDOMEN: LIVER: No significant abnormality. Homogeneous. GALLBLADDER AND BILE DUCTS: Cholelithiasis. No CT evidence of cholecystitis. No intra- or extrahepatic biliary ductal dilation. PANCREAS: No significant abnormality. No focal cystic mass. SPLEEN: No significant abnormality. Normal size without focal cystic or solid mass. ADRENALS: No significant abnormality. No nodules. KIDNEYS AND URETERS: Multiple left renal calyceal stones, the largest in the lower pole measuring up to 7 mm. No ureteral stones or hydronephrosis. Left renal cyst for which no follow-up is indicated. STOMACH AND BOWEL: Colonic diverticulosis without discrete evidence of acute diverticulitis. No stomach or bowel distention. PELVIS: APPENDIX: Normal appendix in the right lower quadrant. BLADDER: No significant abnormality. REPRODUCTIVE: Normal as visualized. No mass. ABDOMEN and PELVIS: INTRAPERITONEAL SPACE: No significant abnormality. No ascites or other fluid collection. No free air. BONES/JOINTS: Status post median sternotomy. Degenerative changes in the spine. No suspicious lytic or blastic abnormality. SOFT TISSUES: Small fat-containing umbilical hernia. VASCULATURE: See above. LYMPH NODES: No significant abnormality. No enlarged lymph nodes. CT/Abdomen/Pelvis without Cont IMPRESSION: 1. Cholelithiasis. No CT evidence of cholecystitis. 2. Multiple left renal calyceal stones, the largest in the lower pole measuring up to 7 mm. No ureteral stones or hydronephrosis. 3. Colonic diverticulosis without discrete evidence of acute diverticulitis. Electronically Signed: Luis Padilla DO at 20:35 EST ,
[2023-04-20] MEDS: Ceftriaxone 1 GM/50 ML BAG IV (20:50)
[2023-04-21 13:06] LABS: Pathologist Review Reviewed
== END 2023-04-20 21:26 | disposition home or self-care (01) ==
PROVIDERS: Emergency Provider Emergency Medicine; Visit Provider Emergency Medicine
DX: N39.0 Urinary tract infection, site not specified (principal); D72.829 Elevated white blood cell count, unspecified; N20.0 Calculus of kidney; Z20.822 Contact with and (suspected) exposure to COVID-19; E78.00 Pure hypercholesterolemia, unspecified; K80.20 Calculus of gallbladder without cholecystitis without obstruction; G47.39 Other sleep apnea; K21.9 Gastro-esophageal reflux disease without esophagitis; Z79.899 Other long term (current) drug therapy; Z79.82 Long term (current) use of aspirin
CPT/HCPCS: 74176; 80048; 81001; 85025; 85610; 87086; 87428; 96361; 96365; 99284; J7030; J7050; A4216

== ENCOUNTER 2023-09-20 22:21 | Emergency (ER) | payer OTHER, SELFPAY ==
[2023-09-20 22:23] VITALS: BP 131/74; PULSE 86; RESP 18; TEMP 37.3; O2SAT 100
--- NOTE | 2023-09-20 23:24 | EDS_ITS ---
HPI History of Present Illness Chief Complaint: Complaint Informant: patient Narrative Narrative: 53-year-old male with a history of a urethral stricture that was surgically repaired and ever since he is susceptible to urinary tract infections. Within the past 1-2 days he feels like he was getting another 1; dysuria, foul-smelling urine, some lower abdominal discomfort. He saw his doctor earlier today and was started on antibiotics, but this evening he developed a fever up to 101 as high as he measured, no other new symptoms. No significant back discomfort. No vomiting. No confusion. He has a mechanical heart valve and is on warfarin, and his doctor told him if he gets a fever because of this he needs to come to the hospital. He states he otherwise feels okay. 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 Home Medications ?Medication ?Instructions ?Recorded ?Last Taken ?Type metoprolol tartrate 25 mg tablet 75 mg PO DAILY 03/29/17 01/08/22 04:45 History warfarin 1 mg tablet (Jantoven) 12.5 mg PO DAILY 03/29/17 01/04/22 History rosuvastatin 20 mg tablet 20 mg PO DAILY 02/18/20 Unknown History acetaminophen 325 mg tablet 650 mg (2 x 325 mg) PO Q6H PRN PRN 02/19/20 Unknown Rx Pain Score 1-10/Temp > 100.7 F aspirin 325 mg tablet 81 mg PO DAILY@0800 09/16/21 Unknown History melatonin 10 mg tablet 10 mg PO QHS 01/01/22 Unknown History pantoprazole 40 mg tablet,delayed 40 mg PO .COMPLEX #60 tabs 11/18/22 Unknown Rx release (Protonix) cholestyramine (with sugar) 4 gram 4 g PO DAILY #60 ea 12/16/22 Unknown Rx powder for susp in a packet cefuroxime axetil 500 mg tablet 500 mg PO BID #14 tabs 04/20/23 Unknown Rx Allergy/AdvReac Type Severity Reaction Status Date / Time codeine AdvReac Other Verified 09/20/23 22:23 Family History Sister Colon cancer Father CAD (coronary artery disease) Myocardial infarction Surgical History History of ureter repair History of cardiac catheterization History of open heart surgery History of ventricular septal myectomy S/P MVR (mitral valve replacement) Hx of colonoscopy History of tonsillectomy and adenoidectomy Social History Smoking Status: Never smoker ROS ROS ED Constitutional Constitutional ED: Reports fever(s); Denies chills Eyes Eyes: Denies change in vision or diplopia ENT ENT ED: Denies rhinorrhea or sore throat Cardiovascular Cardiovascular: Denies chest pain or palpitations Respiratory/Chest Respiratory/Chest: Denies cough or dyspnea Gastrointestinal Gastrointestinal: Reports abdominal pain; Denies diarrhea, nausea or vomiting Genitourinary Genitourinary ED: Reports dysuria and urinary frequency; Denies hematuria Musculoskeletal Musculoskeletal: Denies back pain or neck pain Integumentary Denies abscess or rash Neurologic Neurologic: Denies headache(s), paresthesias or weakness Psychiatric Psychiatric: Denies anxiety or suicidal thoughts EXAM Physical Exam Const Vital Signs: 09/20/23 22:23 Temperature 99.2 F H Temperature Source Temporal Pulse Rate 86 Respiratory Rate 18 Blood Pressure 131/74 H Blood Pressure Mean 93 Pulse Ox 100 Oxygen Delivery Method Room Air Positive well nourished and well developed Constitutional Narrative: Well-appearing, pleasant, cooperative General Appearance ED: well developed and NAD HEENT Reports moist mucous membranes normocephalic and atraumatic Eyes PERRL and EOMs intact bilaterally Neck full ROM and supple Resp normal respiratory effort and clear to auscultation bilaterally Cardio regular rate, regular rhythm and no murmurs GI non-distended GI Narrative: Mild suprapubic tenderness without guarding or rebound otherwise benign abdomen Auscultation: normoactive bowel sounds Palpation: soft Back/Spine no CVA tenderness General Back: other FROM Extremity normal to inspection General Extremety ED: Negative for edema, pulses abnormal or tenderness General Extremity: Negative for edema or pulses abnormal Neuro oriented x3, CN's II-XII intact bilaterally and no sensory deficits noted Sensorium / Orientation: awake and alert Motor Exam: strength 5/5 throughout Skin no rashes or lesions noted and no wounds MDM MDM MDM Narrative Medical decision making narrative: Vital signs noted benign exam, this patient is not septic as I discussed with him and he is in agreement. I am happy to evaluate him for bacteremia with blood cultures, while putting it in context with some basic labs and a PT/INR, provided dose of IV Rocephin which should give him 24 hours coverage, in addition to the cefuroxime currently is on and I am okay with discharging him home, he is okay with this as well. We discussed reasons to return he is comfortable with that plan. Lab Data Attestation: I reviewed the patient's lab results. Labs: Laboratory Results - last 24 hr 09/20/23 09/20/23 09/20/23 23:20 23:35 23:53 WBC 12.3 H RBC 5.34 Hgb 14.3 Hct 44.5 MCV 83.3 MCH 26.8 L MCHC 32.1 RDW Std Deviation 43.2 RDW Coeff of [place] 14.2 Plt Count 272 MPV 9.3 Immature Gran % (Auto) 0.300 Neut % (Auto) 77.6 H Lymph % (Auto) 10.8 L [place] % (Auto) 10.4 H Eos % (Auto) 0.4 Baso % (Auto) 0.5 Absolute Neuts (auto) 9.5 H Absolute Lymphs (auto) 1.33 Nucleated RBC % 0 PT 43.2 H INR 4.6 H* Sodium 137 Potassium 3.5 Chloride 102 Carbon Dioxide 30.0 Anion Gap 5 BUN 14 Creatinine 0.96 Est GFR (MDRD) Af Amer 105 Est GFR (MDRD) Non-Af 87 BUN/Creatinine Ratio 14.6 Glucose 98 Calcium 9.8 Urine Color Yellow Urine Clarity Clear Urine pH 6.0 Ur Specific [place] 1.020 Urine Protein 30 H Urine Glucose (UA) Normal Urine Ketones Negative Urine Occult Blood 150 H Urine Nitrite Positive H Urine Bilirubin Negative Urine Urobilinogen Normal Ur Leukocyte Esterase 500 H Discharge Plan Triage Chief Complaint: Complaint ED Provider: Nito Rondon Dx/Rx/DC Orders Clinical Impression: UTI (urinary tract infection), H/O mitral valve replacement with mechanical valve, Warfarin-induced coagulopathy Instructions: ED STI Male Treated Prescriptions: No Action warfarin [Jantoven] 1 MG tablet 12.5 mg PO DAILY Patient Comments: LAST DAY TO TAKE PRIOR TO OR 01/03/22 THEN BRIDGING W/ LOVENOX Rx Instructions: 12.5mg , , SA, ELI 15 mg MO, WE, FR metoprolol tartrate 25 MG tablet 75 mg PO DAILY aspirin 325 mg tablet 81 mg PO DAILY@0800 rosuvastatin 20 MG tablet 20 mg PO DAILY acetaminophen 325 MG tablet 650 mg PO Q6H PRN PRN (Reason: Pain Score 1-10/Temp > 100.7 F) 0RF melatonin 10 mg Tablet 10 mg PO QHS cefuroxime axetil 500 mg tablet 500 mg PO BID Qty: 14 0RF pantoprazole [Protonix] 40 mg tablet,delayed release (DR/EC) 40 mg PO .COMPLEX Qty: 60 7RF Rx Instructions: take 40 mg orally two times a day for eight weeks then once daily cholestyramine (with sugar) 4 gram powder in packet 4 g PO DAILY Qty: 60 11RF Rx Instructions: administer w/meal; avoid other meds within 1hr before Primary Care Provider: NAKIA WAYNE Referrals: Doctor,Your [Non-Staff] - 3-5 Days if not improving Activity Restrictions/Additional Instructions: Urine culture is sent and should take couple days to come back, if it becomes apparent that your infection is resistant to the antibiotic that was prescribed to you, you should get a phone call from us indicating such. Print Language: Danish Disposition Disposition: Home, Self Care
[2023-09-20 23:33] LABS: Absolute Lymphocyte Count 1.33 X10^3/uL (0.83-4.51); Absolute Neutrophil Count 9.5 X10^3/uL (2.0-7.7); Basophil# 0.06 X10^3/uL; Basophil% 0.5 % (0-1); Eosinophil# 0.05 X10^3/uL; Eosinophils% 0.4 % (0-5); Hematocrit 44.5 % (40-54); Hemoglobin 14.3 g/dL (13.0-16.5); Lymphocyte # 1.33 X10^3/ul (0.83-4.51); Lymphocyte % 10.8 % (19-41); Mean Corp Hgb Conc 32.1 g/dL (32-36); Mean Corpuscular Hgb 26.8 pg (27.0-32.0); Mean Corpuscular Volume 83.3 fL (80-94); Mean Platelet Vol. 9.3 fl (6.2-12.0); Monocyte# 1.28 X10^3/uL; Monocyte% 10.4 % (0-10); NRBC Flagged by Analyzer 0 % (0-5); Neutrophil # 9.51 X10^3/uL (2.7-7.7); Neutrophil % 77.6 % (47-70); Platelet Count 272 K/mm3 (150-450); RBC Distribution Width CV 14.2 % (11.6-14.6); RBC Distribution Width SD 43.2 fl (35.1-43.9); Red Blood Count 5.34 M/mm3 (4.6-6.2); White Blood Count 12.3 K/mm3 (4.4-11.0)
[2023-09-20 23:39] LABS: Mucous, Urine 0 SEEN /hpf (<or=2+); Squamous Epithelial Cells - UA 0 SEEN /hpf (0-5)
[2023-09-20 23:48] LABS: Anion Gap 5 (5-15); BUN 14 mg/dL (7-18); BUN/Creat Ratio 14.6 RATIO (10-20); Calcium,Total 9.8 mg/dL (8.5-10.1); Chloride 102 mmol/L (98-107); Creatinine, Serum 0.96 mg/dL (0.70-1.30); EST Glomerular Filtration Rate 87 mL/min (>60); Est Glom Filt Rate - Afr Amer 105 mL/min (>60); Glucose 98 mg/dL (74-106); Potassium 3.5 mmol/L (3.5-5.1); Sodium Level 137 mmol/L (136-145)
[2023-09-20 23:51] LABS: Color, Urine Yellow (Yellow); Glucose, Dipstick Normal (Normal); Ketone-Dipstick Negative (Negative); Leukocyte Esterase-Dipstick 500 /ul (Negative); Nitrite-Dipstick Positive (Negative); Occult Blood-Urine 150 /ul (Negative); Protein-Dipstick 30 mg/dl (Negative); Urine Bilirubin Dipstick Negative (Negative); Urine Clarity Clear (Clear); Urine Urobilinogen Normal (Normal)
[2023-09-21 00:12] LABS: Prothrombin Time (Protime)PT. 43.2 SECONDS (11.7-14.9)
[2023-09-21 00:20] LABS: International Normalized Ratio 4.6
[2023-09-21 00:39] LABS: Bacteria 3+ /hpf (None Seen); Red Blood Cells-Urine 5-10 SEEN /hpf (0-5); White Blood Cells 10-25 SEEN /hpf (0-5)
[2023-09-21 00:45] VITALS: BP 112/72; TEMP 37.5
[2023-09-21] MEDS: Ceftriaxone 1 GM/50 ML BAG IV (00:45)
[2023-09-21 01:20] VITALS: BP 109/74; PULSE 68; RESP 16; TEMP 37.5; O2SAT 98
== END 2023-09-21 01:23 | disposition home or self-care (01) ==
PROVIDERS: Emergency Provider Emergency Medicine; Visit Provider Emergency Medicine
DX: N39.0 Urinary tract infection, site not specified (principal); R79.1 Abnormal coagulation profile; T45.515A Adverse effect of anticoagulants, initial encounter; E78.00 Pure hypercholesterolemia, unspecified; Z79.82 Long term (current) use of aspirin; Z79.899 Other long term (current) drug therapy; Z95.2 Presence of prosthetic heart valve
CPT/HCPCS: 80048; 81001; 85025; 85610; 87040; 96365; 99283; A4216

== ENCOUNTER 2023-10-04 00:12 | Emergency (ER) | payer OTHER, SELFPAY ==
[2023-10-04 00:13] VITALS: BP 154/87; PULSE 89; RESP 18; TEMP 36.9; O2SAT 98; BMI 29.5
--- NOTE | 2023-10-04 00:42 | EX.ED.DYSGE1 ---
HPI History of Present Illness Chief Complaint: Complaint Detail of Chief Complaint: Fever and urologic symptoms Informant: patient Onset/Context/Timing Onset: Days Context: Sudden Onset Timing: Intermittent Quality: Discomfort with urination and pain perineal region Location: Urethra and perineum Current Severity: Mild Maximum Severity: Moderate Worsened by: Urination Relieved by: Perineal pain nothing Associated Symptoms Associated Symptoms: Fever/temperature to 100.0 ?F Narrative Narrative: Patient is a 53-year-old male. Patient had reconstructive surgery of his urethra due to stenosis. This was done at the [facility]. Patient is had recurrent urinary tract infection with positive cultures for E. coli. Patient was seen on the and . Patient's white count was elevated on both dates. Higher on the . Blood cultures were obtained however urine cultures were not. He is presently on cephalexin. He was on Macrobid prior. He denies back or flank pain. He denies nausea, vomiting or diarrhea. He denies penile lesion or urethral discharge. Patient denies any rash. He denies swelling of his scrotum. Patient is on Coumadin. His INR recently assessed and it was elevated. He denies bruising easily. He denies blood in his urine. Prior similar symptoms: Yes Recent Illness/Hospitalization: Yes 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 Home Medications ?Medication ?Instructions ?Recorded ?Last Taken ?Type metoprolol tartrate 25 mg tablet 75 mg PO DAILY 03/29/17 01/08/22 04:45 History warfarin 1 mg tablet (Jantoven) 12.5 mg PO DAILY 03/29/17 01/04/22 History rosuvastatin 20 mg tablet 20 mg PO DAILY 02/18/20 Unknown History acetaminophen 325 mg tablet 650 mg (2 x 325 mg) PO Q6H PRN PRN 02/19/20 Unknown Rx Pain Score 1-10/Temp > 100.7 F aspirin 325 mg tablet 81 mg PO DAILY@0800 09/16/21 Unknown History melatonin 10 mg tablet 10 mg PO QHS 01/01/22 Unknown History pantoprazole 40 mg tablet,delayed 40 mg PO .COMPLEX #60 tabs 11/18/22 Unknown Rx release (Protonix) cholestyramine (with sugar) 4 gram 4 g PO DAILY #60 ea 12/16/22 Unknown Rx powder for susp in a packet cefuroxime axetil 500 mg tablet 500 mg PO BID #14 tabs 04/20/23 Unknown Rx ciprofloxacin HCl 500 mg tablet 500 mg PO BID #56 TABLETS 10/04/23 Unknown Rx hydrocodone-acetaminophen 5-325mg 1 tab PO Q6H PRN PRN Pain 3 days 10/04/23 Unknown Rx 5mg-325mg #10 TABLETS Allergy/AdvReac Type Severity Reaction Status Date / Time Sulfa (Sulfonamide Allergy PT UNSURE Verified 10/04/23 00:45 Antibiotics) OF REACTION codeine AdvReac Other Verified 09/20/23 22:23 Family History Sister Colon cancer Father CAD (coronary artery disease) Myocardial infarction Surgical History History of ureter repair History of cardiac catheterization History of open heart surgery History of ventricular septal myectomy S/P MVR (mitral valve replacement) Hx of colonoscopy History of tonsillectomy and adenoidectomy Social History Smoking Status: Never smoker ROS ROS ED Constitutional Constitutional ED: Reports chills and fever(s); Denies subjective or sweats Eyes Eyes: Denies blurry vision or change in vision ENT ENT ED: Denies rhinorrhea or sore throat Cardiovascular Cardiovascular: Denies chest pain or palpitations Respiratory/Chest Respiratory/Chest: Denies cough, dyspnea or dyspnea on exertion Gastrointestinal Gastrointestinal: Denies abdominal pain, nausea or vomiting Genitourinary Genitourinary ED: Reports dysuria and other Details: And further detailed HPI narrative ; Denies hematuria or urinary frequency Musculoskeletal Musculoskeletal: Denies back pain Integumentary Denies rash Endocrine Endocrinology: Denies cold intolerance or heat intolerance Hematologic/Lymphatic Hematologic/Lymphatic: Reports systems reviewed and no addt'l complaints, except as documented EXAM Physical Exam Const Vital Signs: 10/04/23 00:13 10/04/23 00:44 Temperature 98.5 F 100.0 F H Temperature Source Temporal Oral Pulse Rate 89 Respiratory Rate 18 Blood Pressure 154/87 H Blood Pressure Mean 109 Pulse Ox 98 Oxygen Delivery Method Room Air Positive well nourished and well developed Constitutional Narrative: Patient is flushed. General Appearance ED: well developed and NAD; Negative for cyanotic, diaphoretic or pallor HEENT Reports moist mucous membranes HEENT Narrative: Head is atraumatic and normocephalic. Ears normal. Nares patent. Eyes PERRL and EOMs intact bilaterally General Eye ED: Negative for pale conjunctiva or scleral icterus Neck no lymphadenopathy and supple Resp normal respiratory effort Cardio regular rate and regular rhythm GI GI Narrative: Abdomen soft nontender. There is no tabitha lymphadenopathy. There is tenderness on rectal exam with palpation of the prostate. There is warmth appreciated on rectal exam. Stool is brown. There is no fissures, fistulas or hemorrhoids noted. Palpation: soft Narrative: Testis and bilateral. No scrotal erythema or swelling. No urethral discharge noted. No obvious penile lesions. Back/Spine no CVA tenderness Extremity normal to inspection Neuro oriented x3 and CN's II-XII intact bilaterally Sensorium / Orientation: alert Psych mental status grossly normal Skin no rashes or lesions noted, no wounds and skin turgor normal General Skin Exam: elasticity normal; Negative for jaundice or pallor MDM MDM MDM Narrative Medical decision making narrative: Need to consider STI, failed outpatient therapy of UTI, STI which has not been tested. Since his INR was elevated recently will obtain PT/INR as well as appropriate blood work to assess for sepsis/endorgan dysfunction. Since patient is presently not febrile and is on antibiotics antibiotics were not started. Urine for GC and chlamydia was canceled since patient states he has not been with anyone for 9 years. His repeat temperature is 100.0 ?F. Lactate was normal. History & Record Review Additional record(s) reviewed:: Prior ED visit and Prior labs Lab Data Lab results narrative: White count is elevated 16.7 thousand with slight shift. There is no bands. H&H is normal. Since patient repeat temp is 100.0 with an elevated white count lactate was added. Urine reveals 5-10 RBCs and 10-25 WBCs with rare bacteria. Of note he is on antibiotics and clinically concern patient has prostatitis. Since there is no endorgan dysfunction and his temperature is elevated but not considered a fever will give dose of IV antibiotics and change his oral antibiotics to ciprofloxacin 500 mg twice daily for 28 days. Sulfa was not chosen since he reports allergy. Labs: Laboratory Results - last 24 hr 10/04/23 10/04/23 00:43 01:04 WBC 16.7 H RBC 5.30 Hgb 14.2 Hct 44.4 MCV 83.8 MCH 26.8 L MCHC 32.0 RDW Std Deviation 44.0 H RDW Coeff of Kingsley 14.4 Plt Count 347 MPV 8.7 Immature Gran % (Auto) 0.400 Neut % (Auto) 81.0 H Lymph % (Auto) 11.4 L [place] % (Auto) 5.9 Eos % (Auto) 1.0 Baso % (Auto) 0.3 Absolute Neuts (auto) 13.6 H Absolute Lymphs (auto) 1.90 Nucleated RBC % 0 PT 22.9 H INR 2.0 Sodium 138 Potassium 3.8 Chloride 105 Carbon Dioxide 26.0 Anion Gap 7 BUN 19 H Creatinine 1.00 Estim Creat Clear Calc 116.15 Est GFR (MDRD) Af Amer 101 Est GFR (MDRD) Non-Af 83 BUN/Creatinine Ratio 19.0 Glucose 115 H Lactic Acid 1.1 Calcium 9.2 Urine Color Yellow Urine Clarity Clear Urine pH 7.0 Ur Specific [place] 1.010 Urine Protein Negative Urine Glucose (UA) Normal Urine Ketones Negative Urine Occult Blood 10 H Urine Nitrite Negative Urine Bilirubin Negative Urine Urobilinogen 1 H Ur Leukocyte Esterase 25 H Urine RBC 5-10 SEEN Urine WBC 10-25 SEEN Ur Squamous Epith Cells 5-10 SEEN Urine Bacteria RARE Urine Mucus 0 SEEN Treatment and Re-Evaluation :: At 0128 patient was informed of laboratory results. He was informed concern for prostatitis. He received 2 g of ceftriaxone in the emergency department and ciprofloxacin 500 mg twice daily for 28 days. Discharge Plan Triage Chief Complaint: Complaint ED Provider: Adrian Tenorio Dx/Rx/DC Orders Clinical Impression: Acute prostatitis, HLD (hyperlipidemia), Hypertrophic obstructive cardiomyopathy, H/O prosthetic mitral valve, Warfarin anticoagulation Instructions: ED Prostatitis Prescriptions: New ciprofloxacin HCl 500 mg tablet 500 mg PO BID Qty: 56 0RF hydrocodone-acetaminophen 5-325 mg tablet 1 tab PO Q6H PRN PRN (Reason: Pain) 3 Days Qty: 10 0RF No Action warfarin [Jantoven] 1 MG tablet 12.5 mg PO DAILY Patient Comments: LAST DAY TO TAKE PRIOR TO OR 01/03/22 THEN BRIDGING W/ LOVENOX Rx Instructions: 12.5mg , , SA, ELI 15 mg MO, WE, FR metoprolol tartrate 25 MG tablet 75 mg PO DAILY aspirin 325 mg tablet 81 mg PO DAILY@0800 rosuvastatin 20 MG tablet 20 mg PO DAILY acetaminophen 325 MG tablet 650 mg PO Q6H PRN PRN (Reason: Pain Score 1-10/Temp > 100.7 F) 0RF melatonin 10 mg Tablet 10 mg PO QHS cefuroxime axetil 500 mg tablet 500 mg PO BID Qty: 14 0RF pantoprazole [Protonix] 40 mg tablet,delayed release (DR/EC) 40 mg PO .COMPLEX Qty: 60 7RF Rx Instructions: take 40 mg orally two times a day for eight weeks then once daily cholestyramine (with sugar) 4 gram powder in packet 4 g PO DAILY Qty: 60 11RF Rx Instructions: administer w/meal; avoid other meds within 1hr before Primary Care Provider: NAKIA WAYNE Referrals: NAKIA WAYNE [Other] - 3-5 Days (Will need to check on urine culture and will need outpatient PT/INR) Activity Restrictions/Additional Instructions: 1. Take antibiotics until gone. You will need to take antibiotics for 28 days. 2. You will need to contact Dr. Nakia Wayne for repeat PT/INR in 3 to 5 days. The ciprofloxacin may interact and cause her blood to be thinner than it should be. 3. If you are unable to eat or drink anything, have shaking chills or your pain becomes significantly worse return to the emergency department Print Language: B[place]udian Disposition Disposition: Home, Self Care
[2023-10-04 00:44] VITALS: TEMP 37.8
[2023-10-04 00:49] LABS: Mucous, Urine 0 SEEN /hpf (<or=2+)
[2023-10-04 00:53] LABS: Absolute Neutrophil Count 13.6 X10^3/uL (2.0-7.7); Basophil# 0.05 X10^3/uL; Basophil% 0.3 % (0-1); Eosinophil# 0.17 X10^3/uL; Hematocrit 44.4 % (40-54); Hemoglobin 14.2 g/dL (13.0-16.5); Lymphocyte % 11.4 % (19-41); Mean Corpuscular Hgb 26.8 pg (27.0-32.0); Mean Corpuscular Volume 83.8 fL (80-94); Mean Platelet Vol. 8.7 fl (6.2-12.0); Monocyte# 0.98 X10^3/uL; Monocyte% 5.9 % (0-10); NRBC Flagged by Analyzer 0 % (0-5); Neutrophil # 13.58 X10^3/uL (2.7-7.7); Platelet Count 347 K/mm3 (150-450); RBC Distribution Width CV 14.4 % (11.6-14.6); White Blood Count 16.7 K/mm3 (4.4-11.0)
[2023-10-04 01:05] LABS: Color, Urine Yellow (Yellow); Glucose, Dipstick Normal (Normal); Ketone-Dipstick Negative (Negative); Leukocyte Esterase-Dipstick 25 /ul (Negative); Nitrite-Dipstick Negative (Negative); Occult Blood-Urine 10 /ul (Negative); Protein-Dipstick Negative (Negative); Urine Bilirubin Dipstick Negative (Negative); Urine Clarity Clear (Clear); Urine Urobilinogen 1 mg/dl (Normal)
[2023-10-04 01:09] LABS: Prothrombin Time (Protime)PT. 22.9 SECONDS (11.7-14.9)
[2023-10-04 01:16] LABS: Anion Gap 7 (5-15); BUN 19 mg/dL (7-18); Calcium,Total 9.2 mg/dL (8.5-10.1); Chloride 105 mmol/L (98-107); EST Glomerular Filtration Rate 83 mL/min (>60); Est Glom Filt Rate - Afr Amer 101 mL/min (>60); Estimated Creatinine Clearance 116.15 ml/min; Glucose 115 mg/dL (74-106); Potassium 3.8 mmol/L (3.5-5.1); Sodium Level 138 mmol/L (136-145)
[2023-10-04 01:19] LABS: Bacteria RARE /hpf (None Seen); Red Blood Cells-Urine 5-10 SEEN /hpf (0-5); Squamous Epithelial Cells - UA 5-10 SEEN /hpf (0-5); White Blood Cells 10-25 SEEN /hpf (0-5)
[2023-10-04 01:32] LABS: Lactic Acid 1.1 mmol/L (0.4-1.9)
[2023-10-04] MEDS: Ceftriaxone 1 GM/50 ML BAG IV (01:50)
[2023-10-04] MEDS: Ketorolac 15 MG/ML Vial IV (02:01)
[2023-10-04 02:05] VITALS: BP 103/66; PULSE 77; RESP 18; TEMP 37.1; O2SAT 95
== END 2023-10-04 02:39 | disposition home or self-care (01) ==
PROVIDERS: Emergency Provider Emergency Medicine; Visit Provider Emergency Medicine
DX: N41.0 Acute prostatitis (principal); I42.1 Obstructive hypertrophic cardiomyopathy; R50.9 Fever, unspecified; E78.00 Pure hypercholesterolemia, unspecified; K21.9 Gastro-esophageal reflux disease without esophagitis; Z95.2 Presence of prosthetic heart valve; Z79.82 Long term (current) use of aspirin; Z79.01 Long term (current) use of anticoagulants; Z79.899 Other long term (current) drug therapy
CPT/HCPCS: 80048; 81001; 83605; 85025; 85610; 87086; 96365; 96375; 99282; J7040; A4216

== ENCOUNTER 2024-06-04 19:24 | Inpatient (IN) | payer OTHER, SELFPAY ==
[2024-06-04 19:25] VITALS: BP 110/79; PULSE 102; RESP 20; TEMP 38.8; O2SAT 98
[2024-06-04 20:07] VITALS: BMI 32.4
--- NOTE | 2024-06-04 20:11 | EKG12_ITS ---
Test Reason : CP Blood Pressure : */* mmHG Vent. Rate : 108 BPM Atrial Rate : 108 BPM P-R Int : 162 ms QRS Dur : 152 ms QT Int : 356 ms P-R-T Axes : 82 2 164 degrees QTcB Int : 477 ms Sinus tachycardia Left bundle branch block Abnormal ECG Confirmed by MICA ALFORD MD ([id number]), editor book IVÁN BENEDICT ([id number]) on 06/05/2024 8:25:57 AM Referred By: HILL Confirmed By: MICA ALFORD MD
--- NOTE | 2024-06-04 20:13 | ED.VIS.CHEST ---
HPI History of Present Illness Chief Complaint: Chest Pain Informant: patient Onset/Context/Timing Onset: Today Activity at onset: sudden Timing: Continuous Quality: Positive for Sharp Location: Left Parasternal Worsened By: Nothing Relieved By: Nothing Associated Symptoms: Positive for Nausea, Dyspnea, Cough, Fever, Lightheadedness, Acid Reflux and Palpitations; Negative for Vomiting or Diaphoresis Narrative Narrative: Patient presents with chest pain that began today. Patient states it began rather suddenly. Patient states it is constant. Patient admits to fevers and chills. Patient also admits to some nausea. Patient admits to some cough and shortness of breath. Patient also admits to some lightheadedness and palpitations. Patient states nothing makes his pain better and nothing makes it worse. Patient states his pain is mainly over the left parasternal area. Patient admits to some dysuria. Patient states he has a history of urinary tract infections in the past due to urethral stricture. Patient is also concerned because he has an artificial mitral valve. [facility] Medical History (Updated 06/04/24 @ 23:[address] 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 Home Medications ?Medication ?Instructions ?Recorded ?Last Taken ?Type rosuvastatin 20 mg tablet 20 mg PO DAILY 02/18/20 Unknown History melatonin 10 mg tablet 10 mg PO QHS 01/01/22 Unknown History hydrocodone-acetaminophen 5-325mg 1 tab PO Q6H PRN PRN Pain 3 days 10/04/23 Unknown Rx 5mg-325mg #10 TABLETS aspirin 81 mg capsule 81 mg PO DAILY 06/04/24 Unknown History coenzyme Q10 100 mg capsule (Co 100 mg PO DAILY 06/04/24 Unknown History Q-10) dicyclomine 10 mg capsule 10 mg PO TID 06/04/24 Unknown History metoprolol succinate 50 mg 50 mg PO DAILY 06/04/24 Unknown History tablet,extended release 24 hr pantoprazole 40 mg tablet,delayed 40 mg PO DAILY 06/04/24 Unknown History release (Protonix) warfarin 10 mg tablet (Jantoven) 10 mg PO SUTH 06/04/24 Unknown History warfarin 5 mg tablet (Jantoven) 12.5 mg PO MOTUWEFRSA 06/04/24 Unknown History Allergy/AdvReac Type Severity Reaction Status Date / Time Sulfa (Sulfonamide Allergy PT UNSURE Verified 06/04/24 19:30 Antibiotics) OF REACTION codeine AdvReac Other Verified 06/04/24 19:30 Family History Sister Colon cancer Father CAD (coronary artery disease) Myocardial infarction Surgical History (Updated 06/04/24 @ 23:[address] Gui Paredes DO) H/O mitral valve replacement with mechanical valve History of ureter repair History of cardiac catheterization History of open heart surgery History of ventricular septal myectomy S/P MVR (mitral valve replacement) Hx of colonoscopy History of tonsillectomy and adenoidectomy Social History Smoking Status: Never smoker ROS ROS ED Constitutional Constitutional ED: Reports fever(s) and subjective; Denies chills Eyes Eyes: Denies blurry vision or change in vision ENT ENT ED: Reports sore throat; Denies rhinorrhea Cardiovascular Cardiovascular: Reports chest pain and palpitations Respiratory/Chest Respiratory/Chest: Reports cough and dyspnea Gastrointestinal Gastrointestinal: Reports nausea; Denies vomiting Genitourinary Genitourinary ED: Reports dysuria; Denies hematuria Musculoskeletal Musculoskeletal: Reports back pain; Denies neck pain Integumentary Denies abscess or rash Neurologic Neurologic: Reports headache(s); Denies weakness Allergic/Immunologic Allergic/Immunologic ED: Denies mouth swelling or urticaria EXAM Physical Exam Const Vital Signs: 06/04/24 19:25 06/04/24 20:07 06/04/24 20:07 Temperature 102 F H Temperature Source Oral Pulse Rate 102 H Respiratory Rate 20 H Respiratory Effort Normal Non-Labored Normal Non-Labored Respiratory Pattern Normal Normal Blood Pressure 110/79 Blood Pressure Mean 89 Pulse Ox 98 Oxygen Delivery Method Room Air 06/04/24 20:30 06/04/24 21:00 06/04/24 22:00 Temperature 101.6 F H 100.6 F H 100.6 F H Temperature Source Oral Oral Oral Pulse Rate 100 100 90 Respiratory Rate 18 16 28 H Respiratory Effort Respiratory Pattern Blood Pressure 124/77 H 99/70 108/68 Blood Pressure Mean 92 79 81 Pulse Ox 98 96 95 Oxygen Delivery Method Room Air Room Air Room Air 06/04/24 23:00 06/04/24 23:00 Temperature 99.5 F H 99.5 F H Temperature Source Oral Pulse Rate 72 72 Respiratory Rate 18 18 Respiratory Effort Respiratory Pattern Blood Pressure 105/69 105/69 Blood Pressure Mean 81 81 Pulse Ox 94 94 Oxygen Delivery Method Room Air Positive well nourished and well developed General Appearance ED: well developed and NAD HEENT Reports moist mucous membranes Neck supple and no JVD Resp normal respiratory effort and clear to auscultation bilaterally Cardio regular rhythm Rate: tachycardic GI soft to palpation, non-tender and non-distended Extremity normal to inspection General Extremety ED: Negative for edema or tenderness General Extremity: Negative for edema Neuro oriented x3, CN's II-XII intact bilaterally and no sensory deficits noted Sensorium / Orientation: awake and alert Motor Exam: strength 5/5 throughout Psych mental status grossly normal MDM MDM MDM Narrative Medical decision making narrative: Differential diagnosis includes cardiac dysrhythmia, cardiac ischemia, pneumonia, electrolyte abnormality, viral illness, coagulopathy, sepsis, urinary tract infection, and viral illness. EKG will be obtained to assess for cardiac dysrhythmia and cardiac ischemia. Chest x-ray will be obtained to assess for pneumonia and pneumothorax. CBC will be obtained to assess for leukocytosis and anemia. Basic metabolic profile will be obtained to assess for electrolyte abnormality and renal function. Serum lactate will be obtained to assess for sepsis. High-sensitivity troponin will be obtained to assess for cardiac ischemia. PT with INR and PTT will be obtained to assess for coagulopathy. Urinalysis will be obtained to assess for urinary tract infection. COVID-19, influenza, and RSV PCR will be obtained to assess for viral illness. Urine culture will be obtained to assess for urinary tract infection. Blood cultures will be obtained to assess for sepsis. Lab Data Attestation: I reviewed the patient's lab results. Lab results narrative: CBC was reviewed. There is a mild leukocytosis of 12.9. The remainder is within normal limits. Basic metabolic profile was reviewed and was essentially within normal limits. PT with INR and PTT were reviewed. Pro time was 28.1, INR was therapeutic at 2.6. PTT was slightly elevated at 40.0. High-sensitivity troponin was reviewed and was normal at 20. Serum lactate was reviewed and was slightly elevated at 2.2. Urinalysis was reviewed. There is no evidence of urinary tract infection or hematuria. COVID-19 PCR was reviewed and was negative. Influenza PCR was reviewed and was negative for influenza A and influenza B. RSV PCR was reviewed and was negative. Labs: Laboratory Results - last 24 hr 06/04/24 06/04/24 06/04/24 20:13 20:22 20:33 WBC 12.9 H RBC 5.61 Hgb 15.0 Hct 45.8 MCV 81.6 MCH 26.7 L MCHC 32.8 RDW Std Deviation 39.8 RDW Coeff of Kingsley 13.4 Plt Count 341 MPV 8.9 Immature Gran % (Auto) 0.200 Neut % (Auto) 84.5 H Lymph % (Auto) 6.8 L [place] % (Auto) 7.8 Eos % (Auto) 0.5 Baso % (Auto) 0.2 Absolute Neuts (auto) 10.9 H Absolute Lymphs (auto) 0.88 Nucleated RBC % 0 PT 28.1 H INR 2.6 APTT 40.0 H Sodium 136 Potassium 4.2 Chloride 104 Carbon Dioxide 26.0 Anion Gap 7 BUN 13 Creatinine 0.98 Estim Creat Clear Calc 122.39 Est GFR (MDRD) Af Amer 103 Est GFR (MDRD) Non-Af 85 BUN/Creatinine Ratio 13.3 Glucose 112 H Lactic Acid 2.2 H* Calcium 9.4 Troponin I High Sens 20 Urine Color Yellow Urine Clarity Clear Urine pH 6.0 Ur Specific [place] 1.010 Urine Protein 15 H Urine Glucose (UA) Normal Urine Ketones Negative Urine Occult Blood 10 H Urine Nitrite Negative Urine Bilirubin Negative Urine Urobilinogen Normal Ur Leukocyte Esterase Negative Urine RBC 0-5 SEEN Urine WBC 0 SEEN Ur Squamous Epith Cells 0 SEEN Urine Bacteria 0 SEEN Urine Mucus 0 SEEN Radiography Chest X-Ray - ED: 2 View, Read by ED Physician, Read by Radiologist and No Acute Disease Diagnostic Testing: Clinical Impression(s) from Imaging Studies Chest X-Ray 06/04/24 20:40 IMPRESSION: No active cardiopulmonary disease. Reading Location: [facility] and lateral chest x-ray was obtained. There are 2 views. On my independent interpretation, lung dotson are clear. There is normal cardiac silhouette. Bony thorax is normal. There is no acute process noted. Radiologist also interpreted the x-ray and agrees. EKG Initial EKG: Attestation: I personally reviewed and interpreted this EKG as follows: Interpretation: Sinus Tachycardia (108) and LBBB Comments: EKG was obtained. On my independent interpretation, shows sinus tachycardia with a rate of 108. NC interval was normal at 162 ms. QRS interval was prolonged at 152 ms. QTc interval was normal at 477 ms. [place] was normal. There is a left bundle branch block pattern noted. There are no acute changes noted. Prior EKG tracings: available for review Prior: Unchanged (03/23/2022) Treatment and Re-Evaluation :: Patient was given Tylenol here. Patient was started on Zosyn and vancomycin due to the elevated lactate and leukocytosis without any source for infection. Case was discussed with the hospitalist for admission. He recommended obtaining a CT scan of the chest, abdomen, and pelvis to look for possible source. He also recommended obtaining a respiratory panel. These were ordered. He will admit the patient to PCU. Patient and family understood and were agreeable with the plan. All questions were answered. Discharge Plan Triage Chief Complaint: Chest Pain ED Provider: Gui Paredes Dx/Rx/DC Orders Clinical Impression: Acute febrile illness, H/O mitral valve replacement with mechanical valve, SIRS (systemic inflammatory response syndrome) Prescriptions: No Action rosuvastatin 20 MG tablet 20 mg PO DAILY melatonin 10 mg Tablet 10 mg PO QHS hydrocodone-acetaminophen 5-325 mg tablet 1 tab PO Q6H PRN PRN (Reason: Pain) 3 Days Qty: 10 0RF warfarin [Jantoven] 10 mg tablet 10 mg PO SUTH warfarin [Jantoven] 5 mg tablet 12.5 mg PO MOTUWEFRSA metoprolol succinate 50 mg tablet extended release 24 hr 50 mg PO DAILY aspirin 81 mg capsule 81 mg PO DAILY dicyclomine 10 mg capsule 10 mg PO TID coenzyme Q10 [Co Q-10] 100 mg capsule 100 mg PO DAILY pantoprazole [Protonix] 40 mg tablet,delayed release (DR/EC) 40 mg PO DAILY Primary Care Provider: NAKIA WAYNE Referrals: NAKIA WAYNE [Other] Print Language: [place] Disposition Disposition: Acute Care Hospital [facility]
[2024-06-04] MEDS: Acetaminophen 500 MG Tablet 1000 MG PO (20:19)
[2024-06-04 20:30] VITALS: BP 124/77; PULSE 100; RESP 18; TEMP 38.7; O2SAT 98
[2024-06-04 20:30] LABS: Absolute Lymphocyte Count 0.88 X10^3/uL (0.83-4.51); Absolute Neutrophil Count 10.9 X10^3/uL (2.0-7.7); Basophil# 0.03 X10^3/uL; Basophil% 0.2 % (0-1); Eosinophil# 0.07 X10^3/uL; Eosinophils% 0.5 % (0-5); Hematocrit 45.8 % (40-54); Lymphocyte # 0.88 X10^3/ul (0.83-4.51); Lymphocyte % 6.8 % (19-41); Mean Corp Hgb Conc 32.8 g/dL (32-36); Mean Corpuscular Hgb 26.7 pg (27.0-32.0); Mean Corpuscular Volume 81.6 fL (80-94); Mean Platelet Vol. 8.9 fl (6.2-12.0); Monocyte# 1.01 X10^3/uL; Monocyte% 7.8 % (0-10); NRBC Flagged by Analyzer 0 % (0-5); Neutrophil # 10.89 X10^3/uL (2.7-7.7); Neutrophil % 84.5 % (47-70); Platelet Count 341 K/mm3 (150-450); RBC Distribution Width CV 13.4 % (11.6-14.6); RBC Distribution Width SD 39.8 fl (35.1-43.9); Red Blood Count 5.61 M/mm3 (4.6-6.2); White Blood Count 12.9 K/mm3 (4.4-11.0)
--- NOTE | 2024-06-04 20:40 | RAD_ITS ---
PROCEDURE: CHEST PA AND LATERAL REASON FOR EXAM: Chest pain. Shortness of breath. Weakness. Dizziness. Dysuria TECHNIQUE: Single frontal image including the chest and upper abdomen. COMPARISON: 03/23/2022 FINDINGS: Lungs are clear of pneumonia and congestion. Old healed granulomatous changes. No pleural effusions, thickening, or pneumothorax. Heart and mediastinum are normal. No hilar masses. Bones and soft tissues are unremarkable. Median sternotomy wires are present. Cardiac monitoring leads overlie the chest wall. RAD/Chest PA and Lateral IMPRESSION: No active cardiopulmonary disease. Reading Location: [facility]
[2024-06-04 20:41] LABS: Bacteria 0 SEEN /hpf (None Seen); Mucous, Urine 0 SEEN /hpf (<or=2+); Squamous Epithelial Cells - UA 0 SEEN /hpf (0-5); White Blood Cells 0 SEEN /hpf (0-5)
[2024-06-04 20:47] LABS: Color, Urine Yellow (Yellow); Glucose, Dipstick Normal (Normal); Ketone-Dipstick Negative (Negative); Leukocyte Esterase-Dipstick Negative /ul (Negative); Nitrite-Dipstick Negative (Negative); Occult Blood-Urine 10 /ul (Negative); Protein-Dipstick 15 mg/dl (Negative); Urine Bilirubin Dipstick Negative (Negative); Urine Clarity Clear (Clear); Urine Urobilinogen Normal (Normal)
[2024-06-04 20:50] LABS: International Normalized Ratio 2.6; Prothrombin Time (Protime)PT. 28.1 SECONDS (11.7-14.9)
[2024-06-04 20:54] LABS: Anion Gap 7 (5-15); BUN 13 mg/dL (7-18); BUN/Creat Ratio 13.3 RATIO (10-20); Calcium,Total 9.4 mg/dL (8.5-10.1); Chloride 104 mmol/L (98-107); Creatinine, Serum 0.98 mg/dL (0.70-1.30); EST Glomerular Filtration Rate 85 mL/min (>60); Est Glom Filt Rate - Afr Amer 103 mL/min (>60); Estimated Creatinine Clearance 122.39 ml/min; Glucose 112 mg/dL (74-106); Potassium 4.2 mmol/L (3.5-5.1); Sodium Level 136 mmol/L (136-145); Troponin-I HS 20 pg/mL (3.0-78.0)
[2024-06-04 21:00] VITALS: BP 99/70; PULSE 100; RESP 16; TEMP 38.1; O2SAT 96
[2024-06-04 21:03] LABS: Red Blood Cells-Urine 0-5 SEEN /hpf (0-5)
[2024-06-04 21:15] LABS: Lactic Acid 2.2 mmol/L (0.4-1.9)
[2024-06-04 22:00] VITALS: BP 108/68; PULSE 90; RESP 28; TEMP 38.1; O2SAT 95
[2024-06-04] MEDS: Piperacil/Tazobactam 4.5 GM in 0.9% Normal Saline (100mL MB+) 100 ML IV (22:46)
[2024-06-04 23:00] VITALS: BP 105/69; PULSE 72; RESP 18; TEMP 37.5; O2SAT 94
--- NOTE | 2024-06-04 23:08 | PCM.HP.STD ---
[facility] - General General Date of Admission: 06/05/24 Date of Service: 06/04/24 Chief Complaint: Fever, Chest Pain and SOB. HPI Narrative GEORGIE ELIZABETH, is a 54 M with a past medical history of essential hypertension; on metoprolol, hyperlipidemia; on rosuvastatin, obesity; with BMI of 32.4 this admission, Central Sleep Apnea; on servo ventilator, history of HOCM; s/p ventricular septal myomectomy, history of mechanical mitral valve replacement; on warfarin, history of irregular heart beat, history of LBBB, history of GERD; with Allen's esophagus, history of gallstones, history of urethral stricture; with history of UTIs, history of ureteral repair and history of chronic prostatitis who presents to [facility] complaining of fever, chest pain and SOB. Mr. Elizabeth reports his symptoms began approximately 1 day prior to admission with a gradual-onset of progressively worsening fever, chills and malaise followed by nonproductive cough with associated pleuritic chest pain. He also admits to some lightheadedness with palpitations with nothing seeming to make his pain better or worse. He states his pain is primarily focused over the Left parasternal area but does not radiate into his back, arm or jaw. Ironically, he remembered recently speaking to his sister saying that he has never had pneumonia in the past just within the last few days. He admits to nausea and mild dysuria but he denies vomiting, constipation, diarrhea or focal neurologic deficits. In the ER he was noted to have CT evidence of ground-glass pulmonary nodular opacities involving the Right lung on an infectious/inflammatory basis with corresponding laboratory evidence of Leukocytosis of 12.9 K and Lactic Acidosis of 2.2 mmol/L with Fever of 101.6 degrees Fahrenheit present on admission consistent with suspected Sepsis along with a therapeutic INR of 2.8 with the patient saturating near 100% on RA and he was then admitted to the ICU for ongoing treatment under the sepsis protocol for stay that is expected to extend beyond 2 midnights. [facility] Medical History (Updated 06/05/24 @ 00:[address] Manav Martino, ) Hypertrophic obstructive cardiomyopathy High cholesterol Easy bruising Excessive bleeding Gastric reflux Non-smoker Sleep apnea History of echocardiogram History of stress test Cardiology follow-up encounter History of irregular heartbeat History of ureteral obstruction Hypercholesteremia 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 Home Medications ?Medication ?Instructions ?Recorded ?Last Taken ?Type rosuvastatin 20 mg tablet 20 mg PO DAILY 02/18/20 Unknown History melatonin 10 mg tablet 10 mg PO QHS 01/01/22 Unknown History hydrocodone-acetaminophen 5-325mg 1 tab PO Q6H PRN PRN Pain 3 days 10/04/23 Unknown Rx 5mg-325mg #10 TABLETS aspirin 81 mg capsule 81 mg PO DAILY 06/04/24 Unknown History coenzyme Q10 100 mg capsule (Co 100 mg PO DAILY 06/04/24 Unknown History Q-10) dicyclomine 10 mg capsule 10 mg PO TID 06/04/24 Unknown History metoprolol succinate 50 mg 50 mg PO DAILY 06/04/24 Unknown History tablet,extended release 24 hr pantoprazole 40 mg tablet,delayed 40 mg PO DAILY 06/04/24 Unknown History release (Protonix) warfarin 10 mg tablet (Jantoven) 10 mg PO SUTH 06/04/24 Unknown History warfarin 5 mg tablet (Jantoven) 12.5 mg PO MOTUWEFRSA 06/04/24 Unknown History Allergy/AdvReac Type Severity Reaction Status Date / Time Sulfa (Sulfonamide Allergy PT UNSURE Verified 06/04/24 19:30 Antibiotics) OF REACTION codeine AdvReac Other Verified 06/04/24 19:30 Family History Sister Colon cancer Father CAD (coronary artery disease) Myocardial infarction Surgical History (Updated 06/04/24 @ 23:[address] Gui Paredes DO) H/O mitral valve replacement with mechanical valve History of ureter repair History of cardiac catheterization History of open heart surgery History of ventricular septal myectomy S/P MVR (mitral valve replacement) Hx of colonoscopy History of tonsillectomy and adenoidectomy Social History Smoking Status: Never smoker ROS ROS Narrative Review of Systems: Constitutional: Patient admits to fever of 101.6 ?F confirmed in ER with chills. Eyes: Patient denies changes in vision or discharge from eyes. ENT: Patient admits to sore throat but he denies runny nose or ear pain. Resp: Patient admits to shortness of breath and cough that is nonproductive. CV: Patient admits to chest pain and palpitations made worse with cough. He denies heart racing or lower extremity edema. GI: Patient admits to nausea but he denies vomiting, constipation or diarrhea. His last BM was yesterday was normal. : Patient admits to dysuria but he denies hematuria. MSK: Patient admits to generalized back pain but he denies neck pain. Skin: Patient denies rash, abscess, wounds or jaundice. Psych: Patient denies symptoms of uncontrolled depression or anxiety. Neuro: Patient admits to tension-type headache but he denies paresthesias or focal neurologic deficits. Allergy: Patient denies lip swelling, tongue swelling or urticaria. Hematology: Patient denies easy bleeding or easy bruisability. Endocrinology: Patient denies polyuria, polydipsia or polyphagia. 14 point review of systems otherwise negative except for positives noted above in HPI. Vital Signs Vital Signs Vital Signs: 06/04/24 19:25 06/04/24 20:07 06/04/24 20:07 Temperature 102 F H Temperature Source Oral Pulse Rate 102 H Respiratory Rate 20 H Respiratory Effort Normal Non-Labored Normal Non-Labored Respiratory Pattern Normal Normal Blood Pressure 110/79 Blood Pressure Mean 89 Pulse Ox 98 Oxygen Delivery Method Room Air 06/04/24 20:30 06/04/24 21:00 06/04/24 22:00 Temperature 101.6 F H 100.6 F H 100.6 F H Temperature Source Oral Oral Oral Pulse Rate 100 100 90 Respiratory Rate 18 16 28 H Respiratory Effort Respiratory Pattern Blood Pressure 124/77 H 99/70 108/68 Blood Pressure Mean 92 79 81 Pulse Ox 98 96 95 Oxygen Delivery Method Room Air Room Air Room Air 06/04/24 23:00 06/04/24 23:00 Temperature 99.5 F H 99.5 F H Temperature Source Oral Pulse Rate 72 72 Respiratory Rate 18 18 Respiratory Effort Respiratory Pattern Blood Pressure 105/69 105/69 Blood Pressure Mean 81 81 Pulse Ox 94 94 Oxygen Delivery Method Room Air Weight Weight: 266 lb 6.4 oz Body Mass Index (BMI) 32.4 Physical Exam Const alert, oriented x3, no apparent distress, average body habitus and healthy appearing General Appearance: cooperative HEENT normocephalic, head/scalp atraumatic, hearing grossly normal bilaterally and moist oral mucous membranes Eyes PERRL and EOMs intact bilaterally Neck no lymphadenopathy and supple Resp Resp Narrative: Diminished breath sounds noted over the Right lower lung field. Cardio regular rate and regular rhythm GI normal to inspection, nondistended, normoactive bowel sounds, soft to palpation, non-tender and non-distended Extremity normal to inspection, full ROM and no clubbing, cyanosis or edema Skin Skin Narrative: Patient has no evidence of rash, abscess, wound or jaundice. Neuro oriented x3, CN's II-XII intact bilaterally, moves all extremities and no focal motor deficits Sensorium / Orientation: awake, alert, oriented to person, oriented to place and oriented to time Speech: speech normal Psych affect normal Results Medical Records Data Attestation: I reviewed the patient's medical records Lab / Micro Data Attestation: I reviewed the patient's lab results. 06/04/24 20:13 06/04/24 20:13 Labs: Laboratory Results - last 24 hr 06/04/24 20:13: WBC 12.9 H, RBC 5.61, Hgb 15.0, Hct 45.8, MCV 81.6, MCH 26.7 L, MCHC 32.8, RDW Std Deviation 39.8, RDW Coeff of [place]ley 13.4, Plt Count 341, MPV 8.9, Immature Gran % (Auto) 0.200, Neut % (Auto) 84.5 H, Lymph % (Auto) 6.8 L, [place] % (Auto) 7.8, Eos % (Auto) 0.5, Baso % (Auto) 0.2, Absolute Neuts (auto) 10.9 H, Absolute Lymphs (auto) 0.88, Nucleated RBC % 0, PT 28.1 H, INR 2.6, APTT 40.0 H, Sodium 136, Potassium 4.2, Chloride 104, Carbon Dioxide 26.0, Anion Gap 7, BUN 13, Creatinine 0.98, Estim Creat Clear Calc 122.39, Est GFR (MDRD) Af Amer 103, Est GFR (MDRD) Non-Af 85, BUN/Creatinine Ratio 13.3, Glucose 112 H, Calcium 9.4, Troponin I High Sens 20 06/04/24 20:22: Lactic Acid 2.2 H* 06/04/24 20:33: Urine Color Yellow, Urine Clarity Clear, Urine pH 6.0, Ur Specific [place] 1.010, Urine Protein 15 H, Urine Glucose (UA) Normal, Urine Ketones Negative, Urine Occult Blood 10 H, Urine Nitrite Negative, Urine Bilirubin Negative, Urine Urobilinogen Normal, Ur Leukocyte Esterase Negative, Urine RBC 0-5 SEEN, Urine WBC 0 SEEN, Ur Squamous Epith Cells 0 SEEN, Urine Bacteria 0 SEEN, Urine Mucus 0 SEEN Micro: Microbiology 06/04/24 20:22 Mucosa - Nasopharyngeal SARS-CoV-2, Influenza & RSV (PCR) - Final Imaging Radiology Impression Chest X-Ray 06/04/24 20:40 IMPRESSION: No active cardiopulmonary disease. Reading Location: [facility] Imaging Services [address] [place] [id number] Chest, Abd, Pel w/Contrast MR#: [id number] Acct: [id number] Name: GEORGIE ELIZABETH Rep #: [id number] : 1970 M 54 From: [facility] PCP: NAKIA WAYNE Status: ADM IN Study: CT Chest, Abd, Pel w/Contrast Date of Exam: 06/04/24 Exam# [id number] Ordering Dr: Gui Paredes DO PROCEDURE: CT CHEST, ABD, PEL W/CONTRAST REASON FOR EXAM: Chest pain, shortness of breath, low back pain, dizziness, fever. TECHNIQUE: Chest, abdomen and pelvis CT with intravenous contrast. COMPARISON: Chest x-ray from 06/04/2024. CT abdomen/pelvis from 04/20/2023. FINDINGS: CT CHEST: Cardiac size is within normal limits. Thoracic aorta demonstrates normal caliber. Left vertebral artery originates from the aortic arch. There are small mediastinal lymph nodes. No lymphadenopathy is present. Multivessel coronary artery calcifications are present. No pericardial or pleural effusion is identified. There is a hypodense nodule in the right thyroid lobe posteriorly measuring 11 mm. Evaluation of the lung parenchyma demonstrates ground-glass nodular opacities in the right upper lobe, right middle lobe, and right lower lobe likely an infectious inflammatory basis. No pneumothorax is present. Central airway is patent. Evaluation of the osseous structures demonstrates no acute findings. Mild degenerative changes are present. Sternotomy wires are present. CT ABDOMEN/PELVIS: The liver and spleen enhance homogeneously. There is cholelithiasis with no CT evidence of acute cholecystitis. Pancreas, biliary system, and adrenal glands are unremarkable. Abdominal aorta demonstrates normal caliber. There is a small fat containing umbilical hernia. Bilateral kidneys enhance homogeneously without hydronephrosis or hydroureter. There is a nonobstructing lower pole left renal stone measuring 8 mm an additional lower pole nonobstructing left renal stone measuring 2 mm. There is a left renal cyst measuring 22 mm. Urinary bladder is smoothly contoured. Punctate prostate calcification is present. Colonic diverticulosis is identified without diverticulitis. There is mild retained stool in the colon without obstruction. There are no acute inflammatory changes of the appendix. However, there is hyperdense material within the distal appendix with metallic spray artifact. Small bowel demonstrates a normal caliber. No free air or free fluid is identified. No acute osseous abnormality is present. There is mild levoscoliosis. Mild degenerative changes are present. CT/CT Chest, Abd, Pel w/Contrast IMPRESSION: 1. Ground-glass pulmonary nodular opacities involving the right lung likely on an infectious inflammatory basis. 2. Cholelithiasis with no CT evidence of acute cholecystitis. 3. Nonobstructing lower pole left renal stones. 4. Colonic diverticulosis without diverticulitis. 5. No acute inflammatory changes involving the appendix however there is hyperdense material within the distal appendix with metallic spray artifact. 6. Additional findings as above. One or more dose reduction techniques were used (e.g., Automated exposure control, adjustment of the mA and/or kV according to patient size, use of iterative reconstruction technique). Reading Location: [facility] CC: Dr. Gui Paredes, DO; NAKIA WAYNE ~ Assembly Loader: Signed Assessment & Plan Assessment/Plan (1) Sepsis: QUALIFIERS: Sepsis acute organ dysfunction status: without acute organ dysfunction Sepsis type: sepsis due to unspecified organism Qualified Code(s): A41.9 - Sepsis, unspecified organism (2) Pneumonia: QUALIFIERS: Laterality: right Lung location: lower lobe of lung Pneumonia type: due to unspecified organism Qualified Code(s): J18.9 - Pneumonia, unspecified organism (3) Lactic acidosis: (4) Acute febrile illness: (5) H/O mitral valve replacement with mechanical valve: (6) Chronic anticoagulation: (7) Hypertrophic obstructive cardiomyopathy: (8) Chest pain: QUALIFIERS: Chest pain type: unspecified Qualified Code(s): R07.9 - Chest pain, unspecified (9) Obesity (BMI 30.0-34.9): PLAN: Plan 1. CT evidence of Right-sided Pneumonia with Fever of 102 degrees Fahrenheit with Leukocytosis of 12.9K and Lactic Acidosis of 2.2 mmol/L present on admission concerning for Sepsis - Admit to ICU for treatment under the Sepsis protocol. Continue empiric IV piperacillin-tazobactam and IV vancomycin and await culture and sensitivity data. Check urinary antigens to Streptococcus pneumonia and Legionella. Give acetaminophen prn for [id number] (level 1-5/10) pain or fever. Resume oral hydrocodone-acetaminophen prn for severe (level 6-10/10) pain. Full viral respiratory panel ordered in ER still is pending at this time. Follow-up lactic acid dropped to 1.7 mmol/L after initial round of treatment. 2. History of Mechanical Mitral Valve Replacement; on warfarin with INR of 2.6 present on admission with patient complaining of Chest Pain complicating #1 - Decrease warfarin dose by 50% while on broad-spectrum outlined above plus start probiotic to boost ash that synthesize vitamin K and check daily PT/INR. Serialize troponin. Check echocardiogram to evaluate LVEF. 3. History of HOCM; s/p ventricular septal myomectomy with history of irregular heart beat and LBBB compounding #1 & #2 - Noted with echocardiogram pending. 4. Obesity; with BMI of 32.4 this admission plus Central Sleep Apnea; on servo ventilator - Weight loss will be recommended. Check TSH. This complicates his case and may hamper recovery. 5. Essential Hypertension; on metoprolol - Hold metoprolol until infection outlined in #1 has been neutralized. 6. Hyperlipidemia; on rosuvastatin - Maintain on statin and check Lipid Profile. 7. History of ureter repair - Noted. 8. History of chronic prostatitis- Apparently stable with UA negative for signs of acute infection this admission. 9. History of GERD; with Allen's esophagus - Patient currently not on treatment for this. Start PPI if symptoms develop. 10. History of LBBB - Noted. 11. History of gallstones - Noted. 12. History of urethral stricture; with history of UTI's - UA negative for signs of infection this admission. 13. DVT prophylaxis - Patient already has therapeutic INR of 2.6 present on admission due to #2. Check daily PT/INR. Total time: Approximately (but not less than) 75 minutes. Sepsis Attestation Sepsis Alert: Yes Sepsis Attestation: Agree w/Sepsis Date exam was performed: 06/05/24 Time exam was performed: 01:00 Possible Source of Sepsis: Pulmonary Sepsis Organ Dysfunction Criteria Present: Lactic Acid > 2 mmol/L Supportive Findings: CT evidence of Right-sided Pneumonia with Fever of 102 degrees Fahrenheit with Leukocytosis of 12.9K and Lactic Acidosis of 2.2 mmol/L present on admission concerning for Sepsis. Fluid Resuscitation Fluid resuscitation indicated?: Yes Fluid Resuscitation ordered: 30 ml/kg fluid bolus ordered Amount of fluid ordered: 2 Sepsis Note Date exam was performed: 06/05/24 Time exam was performed: 05:00 Sepsis Attestation: Sepsis re-evaluation was performed Response to fluids: Fluid responsive hypotension Charges/Coding Visit Charges Inpatient E&M: 56998 Init Hosp L3
--- NOTE | 2024-06-04 23:15 | CT_ITS ---
PROCEDURE: CT CHEST, ABD, PEL W/CONTRAST REASON FOR EXAM: Chest pain, shortness of breath, low back pain, dizziness, fever. TECHNIQUE: Chest, abdomen and pelvis CT with intravenous contrast. COMPARISON: Chest x-ray from 06/04/2024. CT abdomen/pelvis from 04/20/2023. FINDINGS: CT CHEST: Cardiac size is within normal limits. Thoracic aorta demonstrates normal caliber. Left vertebral artery originates from the aortic arch. There are small mediastinal lymph nodes. No lymphadenopathy is present. Multivessel coronary artery calcifications are present. No pericardial or pleural effusion is identified. There is a hypodense nodule in the right thyroid lobe posteriorly measuring 11 mm. Evaluation of the lung parenchyma demonstrates ground-glass nodular opacities in the right upper lobe, right middle lobe, and right lower lobe likely an infectious inflammatory basis. No pneumothorax is present. Central airway is patent. Evaluation of the osseous structures demonstrates no acute findings. Mild degenerative changes are present. Sternotomy wires are present. CT ABDOMEN/PELVIS: The liver and spleen enhance homogeneously. There is cholelithiasis with no CT evidence of acute cholecystitis. Pancreas, biliary system, and adrenal glands are unremarkable. Abdominal aorta demonstrates normal caliber. There is a small fat containing umbilical hernia. Bilateral kidneys enhance homogeneously without hydronephrosis or hydroureter. There is a nonobstructing lower pole left renal stone measuring 8 mm an additional lower pole nonobstructing left renal stone measuring 2 mm. There is a left renal cyst measuring 22 mm. Urinary bladder is smoothly contoured. Punctate prostate calcification is present. Colonic diverticulosis is identified without diverticulitis. There is mild retained stool in the colon without obstruction. There are no acute inflammatory changes of the appendix. However, there is hyperdense material within the distal appendix with metallic spray artifact. Small bowel demonstrates a normal caliber. No free air or free fluid is identified. No acute osseous abnormality is present. There is mild levoscoliosis. Mild degenerative changes are present. CT/CT Chest, Abd, Pel w/Contrast IMPRESSION: 1. Ground-glass pulmonary nodular opacities involving the right lung likely on an infectious inflammatory basis. 2. Cholelithiasis with no CT evidence of acute cholecystitis. 3. Nonobstructing lower pole left renal stones. 4. Colonic diverticulosis without diverticulitis. 5. No acute inflammatory changes involving the appendix however there is hyperd ense material within the distal appendix with metallic spray artifact. 6. Additional findings as above. One or more dose reduction techniques were used (e.g., Automated exposure contr ol, adjustment of the mA and/or kV according to patient size, use of iterative reconstruction technique). Reading Location: [facility]
[2024-06-04] MEDS: Vancomycin HCl 2,000 MG in 0.9% Normal Saline (500mL Bag) 500 ML 250 MG IV (23:43)
[2024-06-05] VITALS (15 sets, daily range): BP systolic 88–118; BP diastolic 52–89; PULSE 65–80; RESP 12–28; TEMP 36.5–37; O2SAT 94–100
[2024-06-05 00:28] LABS: Reflex Lactate? Y
[2024-06-05 01:20] LABS: Lactic Acid 1.7 mmol/L (0.4-1.9)
[2024-06-05] MEDS: 0.9% Normal Saline (1000mL) 1,000 ML 999 ML IV ×4 (01:35→04:40)
[2024-06-05 01:50] LABS: International Normalized Ratio 2.8; Prothrombin Time (Protime)PT. 29.7 SECONDS (11.7-14.9)
[2024-06-05 02:04] LABS: Cholesterol 111 mg/dL (200); High Density Lipoprotein 36 mg/dL; Thyroid Stim Hormone (TSH) 0.575 uIU/mL (0.358-3.740); Triglycerides 178 mg/dL; Troponin-I HS 19 pg/mL (3.0-78.0); Very Low Density Lipoprotein 36 mg/dL (5-40)
--- NOTE | 2024-06-05 02:10 | PCM.RX.CS ---
Consult Antibiotic Management Pharmacy has been consulted to manage selected antibiotic: Vancomycin Type of Intervention Type of Consult: New start Suspected Infection Suspected Infection: Pneumonia Labs Labs: Sodium 136 mmol/L (136-145) 06/04/24 20:13 Potassium 4.2 mmol/L (3.5-5.1) 06/04/24 20:13 Chloride 104 mmol/L (98-107) 06/04/24 20:13 Carbon Dioxide 26.0 mmol/L (21.0-32.0) 06/04/24 20:13 Anion Gap 7 (5-15) 06/04/24 20:13 BUN 13 mg/dL (7-18) 06/04/24 20:13 Creatinine 0.98 mg/dL (0.70-1.30) 06/04/24 20:13 Est GFR (MDRD) Af Amer 103 mL/min (>60) 06/04/24 20:13 Est GFR (MDRD) Non-Af 85 mL/min (>60) 06/04/24 20:13 BUN/Creatinine Ratio 13.3 RATIO (10-20) 06/04/24 20:13 Glucose 112 mg/dL (74-106) H 06/04/24 20:13 Microbiology Microbiology: Microbiology 06/04/24 20:33 Urine, Clean Catch Legionella Antigen - Final 06/04/24 20:33 Urine, Clean Catch Streptococcus pneumoniae Antigen (M - Final 06/04/24 20:22 Mucosa - Nasopharyngeal SARS-CoV-2, Influenza & RSV (PCR) - Final Dosing Weight Weight used for dosin kg Estimated Creatinine Clearance Estimated Creatinine Clearance: 122 Goal Trough Goal Trough: 15-20 mcg/mL Pharmacy Plan for Drug Dosing Pharmacy Plan for Drug Dosing: Pharmacy Service will continue to monitor and adjust dosing as required. Follow-Up Labs Follow-Up Labs: Trough: Vancomycin Date/Time Labs Ordered Labs to be done on [date and time ordered]: 06/05/24 @2300
[2024-06-05] MEDS: Piperacil/Tazobactam 3.375 GM in 0.9% Normal Saline (50mL MB+) 50 ML IV ×3 (05:30→22:22)
[2024-06-05] MEDS: Dicyclomine 10 MG Capsule PO ×3 (07:50→16:00)
[2024-06-05] MEDS: Vancomycin HCl 1,500 MG in 0.9% Normal Saline (500mL Bag) 500 ML 250 MG IV ×3 (07:50→23:30)
[2024-06-05] MEDS: 0.9% Normal Saline (1000mL) 1,000 ML 125 ML IV ×2 (07:51→12:27)
[2024-06-05] MEDS: Aspirin 81 MG TAB.CHEW PO (09:23)
[2024-06-05] MEDS: Lactobacillis Acidophilus 1 CAP PO ×4 (09:23→22:23)
[2024-06-05] MEDS: Pantoprazole Sodium 40 MG Tablet PO (09:23)
--- NOTE | 2024-06-05 11:09 | PCM.PROGNOTE ---
Subjective Subjective Patient seen and examined. He had no active complaints. He denied any fever, chills, cough, chest pain, palpitations, dizziness, nausea, vomiting or any other symptoms. Review of systems is otherwise negative. Objective Data Objective Data Vital Signs: Vital Signs Temp Pulse Resp BP Pulse Ox O2 Del Method 98.0 F 75 21 H 118/89 H 100 Room Air 06/05/24 08:00 06/05/24 09:00 06/05/24 09:00 06/05/24 09:00 06/05/24 09:00 06/05/24 09:00 Oxygen Delivery Method Room Air Weight: 246 lb 14.684 oz Body Mass Index (BMI) 30.0 Intake & Output: Intake and Output for Last 24 Hours 06/03/24 06/04/24 06/05/24 23:59 23:59 23:59 Intake Total 100 / 100 5220 / 5220 Output Total 1350 / 1350 Balance 100 / 100 3870 / 3870 Lab / Micro Data 06/04/24 20:13 06/04/24 20:13 Labs: Laboratory Results - last 24 hr 06/04/24 20:13: WBC 12.9 H, RBC 5.61, Hgb 15.0, Hct 45.8, MCV 81.6, MCH 26.7 L, MCHC 32.8, RDW Std Deviation 39.8, RDW Coeff of Kingsley 13.4, Plt Count 341, MPV 8.9, Immature Gran % (Auto) 0.200, Neut % (Auto) 84.5 H, Lymph % (Auto) 6.8 L, [place] % (Auto) 7.8, Eos % (Auto) 0.5, Baso % (Auto) 0.2, Absolute Neuts (auto) 10.9 H, Absolute Lymphs (auto) 0.88, Nucleated RBC % 0, PT 28.1 H, INR 2.6, APTT 40.0 H, Sodium 136, Potassium 4.2, Chloride 104, Carbon Dioxide 26.0, Anion Gap 7, BUN 13, Creatinine 0.98, Estim Creat Clear Calc 122.39, Est GFR (MDRD) Af Amer 103, Est GFR (MDRD) Non-Af 85, BUN/Creatinine Ratio 13.3, Glucose 112 H, Calcium 9.4, Troponin I High Sens 20 06/04/24 20:22: Lactic Acid 2.2 H* 06/04/24 20:33: Urine Color Yellow, Urine Clarity Clear, Urine pH 6.0, Ur Specific [place] 1.010, Urine Protein 15 H, Urine Glucose (UA) Normal, Urine Ketones Negative, Urine Occult Blood 10 H, Urine Nitrite Negative, Urine Bilirubin Negative, Urine Urobilinogen Normal, Ur Leukocyte Esterase Negative, Urine RBC 0-5 SEEN, Urine WBC 0 SEEN, Ur Squamous Epith Cells 0 SEEN, Urine Bacteria 0 SEEN, Urine Mucus 0 SEEN 06/05/24 00:35: Lactic Acid 1.7 06/05/24 01:30: PT 29.7 H, INR 2.8, Troponin I High Sens 19, Triglycerides 178, Cholesterol 111, LDL Cholesterol 39, VLDL Cholesterol 36, HDL Cholesterol 36 L, TSH 0.575 Micro: Microbiology 06/05/24 00:57 Mucosa - Nasopharyngeal Respiratory Panel (PCR) - Final 06/04/24 20:33 Urine, Clean Catch Legionella Antigen - Final 06/04/24 20:33 Urine, Clean Catch Streptococcus pneumoniae Antigen (M - Final 06/04/24 20:22 Mucosa - Nasopharyngeal SARS-CoV-2, Influenza & RSV (PCR) - Final Radiography Diagnostic Testing: Radiology Impression Chest X-Ray 06/04/24 20:40 IMPRESSION: No active cardiopulmonary disease. Reading Location: [facility] Chest/Abdomen/Pelvis CT 06/04/24 23:15 IMPRESSION: 1. Ground-glass pulmonary nodular opacities involving the right lung likely on an infectious inflammatory basis. 2. Cholelithiasis with no CT evidence of acute cholecystitis. 3. Nonobstructing lower pole left renal stones. 4. Colonic diverticulosis without diverticulitis. 5. No acute inflammatory changes involving the appendix however there is hyperdense material within the distal appendix with metallic spray artifact. 6. Additional findings as above. One or more dose reduction techniques were used (e.g., Automated exposure control, adjustment of the mA and/or kV according to patient size, use of iterative reconstruction technique). Reading Location: [facility] Physical Exam Const alert, oriented x3, no apparent distress and well nourished General Appearance: cooperative and well developed HEENT normocephalic, head/scalp atraumatic, moist oral mucous membranes, oropharynx normal and gingiva normal Eyes PERRL and EOMs intact bilaterally Neck no lymphadenopathy, supple and no JVD Lymph Lymphatic: no lymphadenopathy noted and no lymphedema noted Resp normal respiratory effort, normal air movement and clear to auscultation bilaterally Cardio regular rate, regular rhythm, S1 normal heart sound, S2 normal heart sound and no murmurs Cardio Narrative: mechanical mitral valve click GI normal to inspection, nondistended, normoactive bowel sounds, soft to palpation, non-tender and non-distended Extremity normal capillary refill, no clubbing, cyanosis or edema and no calf tenderness General Extremity: no tenderness to palpation of joints or extremities Skin General Skin Exam: no breakdown Neuro CN's II-XII intact bilaterally, no focal motor deficits and no sensory deficits noted Motor Exam: strength 5/5 throughout and general weakness Psych thought process normal, cooperative and affect normal Appearance: appropriate Assessment & Plan Assessment/Plan (1) Sepsis: QUALIFIERS: Sepsis type: sepsis due to unspecified organism Sepsis acute organ dysfunction status: without acute organ dysfunction Qualified Code(s): A41.9 - Sepsis, unspecified organism (2) Pneumonia: QUALIFIERS: Pneumonia type: due to unspecified organism Laterality: right Lung location: lower lobe of lung Qualified Code(s): J18.9 - Pneumonia, unspecified organism PLAN: Plan #Sepsis due to pneumonia Admitted with complaint of fever. He had fever 102 Fahrenheit leukocytosis of 12.9 and also lactic acidosis of 2.2. On IV vancomycin and Zosyn. Sputum and blood cultures pending. Urine for strep Legionella negative. Respiratory panel also negative. Lactic acid trended down with hydration. #Chest pain Patient complained of chest pain on admission. He does have a history of mitral valve mechanical replacements due to mitral stenosis in the setting of HOCM. Troponins were not elevated. 2D echo was ordered but I will consulted 2D echo as patient just had a 2D echo done 2 weeks ago recommend clinic. He has a yearly echo did for surveillance of his history of HOCM. 2D echo done at [facility] 2 weeks ago showed EF of 55% with no acute regional wall motion abnormalities. Patient showed me this from the patient portal. Official records requested from [facility]. #History of HOCM S/p ventricular septal myomectomy. Is complicated by left bundle branch block. On metoprolol. States his dose of metoprolol was recently reduced due to what seems like bradycardia. #Benign essential hypertension: On metoprolol. Resume metoprolol. #History of mitral valve replacement S/p mitral valve replacement mechanical valve. This was done at [facility]. On Coumadin. Monitor INR. Target INR between 2.5-3.5. #DVT prophylaxis: On Coumadin. Monitor INR. Disposition: Transfer out of ICU to PCU Charges/Coding Visit Charges Inpatient E&M: 81841 Subs Hosp L2
[2024-06-05 11:57] LABS: Absolute Lymphocyte Count 1.96 X10^3/uL (0.83-4.51); Absolute Neutrophil Count 10.7 X10^3/uL (2.0-7.7); Basophil# 0.06 X10^3/uL; Basophil% 0.4 % (0-1); Eosinophil# 0.17 X10^3/uL; Eosinophils% 1.2 % (0-5); Hematocrit 38.9 % (40-54); Hemoglobin 12.9 g/dL (13.0-16.5); Lymphocyte # 1.96 X10^3/ul (0.83-4.51); Lymphocyte % 13.8 % (19-41); Mean Corp Hgb Conc 33.2 g/dL (32-36); Mean Corpuscular Hgb 27.4 pg (27.0-32.0); Mean Corpuscular Volume 82.8 fL (80-94); Mean Platelet Vol. 8.7 fl (6.2-12.0); Monocyte# 1.22 X10^3/uL; Monocyte% 8.6 % (0-10); NRBC Flagged by Analyzer 0 % (0-5); Neutrophil # 10.73 X10^3/uL (2.7-7.7); Neutrophil % 75.6 % (47-70); Platelet Count 295 K/mm3 (150-450); RBC Distribution Width CV 13.7 % (11.6-14.6); RBC Distribution Width SD 41.4 fl (35.1-43.9); White Blood Count 14.2 K/mm3 (4.4-11.0)
[2024-06-05 12:13] LABS: Anion Gap 5 (5-15); BUN 11 mg/dL (7-18); BUN/Creat Ratio 12.7 RATIO (10-20); Calcium,Total 8.6 mg/dL (8.5-10.1); Chloride 111 mmol/L (98-107); Creatinine, Serum 0.86 mg/dL (0.70-1.30); EST Glomerular Filtration Rate 98 mL/min (>60); Est Glom Filt Rate - Afr Amer 119 mL/min (>60); Estimated Creatinine Clearance 134.56 ml/min; Glucose 93 mg/dL (74-106); Potassium 3.8 mmol/L (3.5-5.1); Sodium Level 140 mmol/L (136-145)
--- NOTE | 2024-06-05 12:51 | CHAPLAIN ---
Type of Pastoral Visit _x__ Initial Visit ___ Follow-up Visit ___ On-call Visit ___ General Patient Visit ___ Spiritual Assessment ___ Family Conference ___ Bereavement ___ Rapid Response ___ Code Blue ___ Other (describe below) Pastoral Care Referral From _x__ Patient ___ Family ___ Nurse ___ Physician ___ Inside Wireman ___ Nougat Cutter Machine ___ Other (describe below) Sacrament/Intervention _x__ Active listening ___ Anointing ___ Adventist ___ Bereavement ___ Communion ___ Kat exploration ___ ___ Life review _x__ Prayer ___ Reconciliation ___ Sacrament of Sick ___ Supportive presence ___ Wedding ___ Other (describe below) Pastoral Comments patient reports doing well and eating his lunch; pt accepts the situation and the need to stay for a couple of days; pt says that he would like a prayer for support; no other concerns
--- NOTE | 2024-06-05 13:13 | CASEMGMT ---
ELISSA NAVA Assessment Face to Face with patient for initial transition planning/care coordination assessment. ELISSA NAVA introduced self and role at [facility], pt voices understanding. Pt is A&Ox4 and is resting comfortably in bed and is calm. Care providers, pharmacy, and demographics verified. Admitting dx: Acute Febrile Illness, SIRS LACE Strata: 1 PCP: Geronimo Thrasher Specialists: Cardio, Uro, GI, and sleep specialists through [facility] Preferred Pharmacy: [facility] Insurance: C[employer] Prescription Benefit: Yes LNOK: Bee Saenz (Sister), Jessica Calvo (Sister) Living Arrangements: Pt lives alone on the second floor of an apartment complex with a flight of steps to manage ADLs/IADLs: Independent Transportation: Self, sisters. Denies concerns DME: Pt states that he has an NIV through [facility]. Pt states that he gets supplies in the mail through [facility]. Pt states that he has neurological sleep apnea and that he wears the machine @ HS only and does not bleed in additional O2. Pt states that he has everything that he needs at home and denies concerns. Pt states that his sister is bringing in his machine today. Pt also has an INR machine at home as well as a pulse ox. HHC/SNF: Denies history or needs Pt?s goal: Home Plan: Home, no needs. Pt denies DME concerns or needs. 6-Click is 24 and pt denies the need for HH, OP Tx, or CCN. Pt states that he feels safe returning home alone and denies further questions or concerns at this time. Mariya Vu RN, CM
[2024-06-05] MEDS: 0.9% Saline Lock 10 ML Syringe IV (15:21)
[2024-06-05] MEDS: Acetaminophen 325 MG Tablet 650 MG PO (17:49)
--- NOTE | 2024-06-05 20:17 | PCM.HOSP.N ---
Hospitalist Note Patient had medication verification, also takes lorazepam 0.5 mg po BID PRN, requested staff to add to home med list. Will add per patient request. Currently vitals including BP stable.
[2024-06-05] MEDS: Vancomycin Trough/Random Due 1 LAB MC (22:22)
[2024-06-05] MEDS: MELATONIN 10 MG TABLET PO (22:23)
[2024-06-05] MEDS: Atorvastatin Calcium 40 MG Tablet PO (22:24)
[2024-06-05 23:03] LABS: Vancomycin, Trough Level 18.4 ug/mL (5.0-15.0)
--- NOTE | 2024-06-05 23:53 | PCM.RX.CS ---
Consult Antibiotic Management Pharmacy has been consulted to manage selected antibiotic: Vancomycin Type of Intervention Type of Consult: Follow-up Suspected Infection Suspected Infection: Pneumonia Labs Labs: Sodium 140 mmol/L (136-145) 06/05/24 11:42 Potassium 3.8 mmol/L (3.5-5.1) 06/05/24 11:42 Chloride 111 mmol/L (98-107) H 06/05/24 11:42 Carbon Dioxide 24.0 mmol/L (21.0-32.0) 06/05/24 11:42 Anion Gap 5 (5-15) 06/05/24 11:42 BUN 11 mg/dL (7-18) 06/05/24 11:42 Creatinine 0.86 mg/dL (0.70-1.30) 06/05/24 11:42 Est GFR (MDRD) Af Amer 119 mL/min (>60) 06/05/24 11:42 Est GFR (MDRD) Non-Af 98 mL/min (>60) 06/05/24 11:42 BUN/Creatinine Ratio 12.7 RATIO (10-20) 06/05/24 11:42 Glucose 93 mg/dL (74-106) 06/05/24 11:42 Vancomycin Trough 18.4 ug/mL (5.0-15.0) H 06/05/24 22:22 Microbiology Microbiology: Microbiology 06/04/24 20:22 Blood Culture (Wb) - Anticubital Left Blood Culture - Preliminary 06/05/24 00:57 Mucosa - Nasopharyngeal Respiratory Panel (PCR) - Final 06/04/24 20:33 Urine, Clean Catch Legionella Antigen - Final 06/04/24 20:33 Urine, Clean Catch Streptococcus pneumoniae Antigen (M - Final 06/04/24 20:22 Mucosa - Nasopharyngeal SARS-CoV-2, Influenza & RSV (PCR) - Final Dosing Weight Weight used for dosin kg Estimated Creatinine Clearance Estimated Creatinine Clearance: 135 Goal Trough Goal Trough: 15-20 mcg/mL Pharmacy Plan for Drug Dosing Pharmacy Plan for Drug Dosing: Vancomycin trough level of 18.4, drawn 7hrs post-dose, was within the target range of 15-20. Will continue dosing at 1500mg q8h, and will draw another trough in two days. Pharmacy Service will continue to monitor and adjust dosing as required. Follow-Up Labs Follow-Up Labs: Trough: Vancomycin Date/Time Labs Ordered Labs to be done on [date and time ordered]: 06/07/24 @2938
[2024-06-06] VITALS (7 sets, daily range): BP systolic 114–128; BP diastolic 78–88; PULSE 67–81; RESP 16–19; TEMP 36.6–36.7; O2SAT 97–98; BMI 30.1
[2024-06-06] MEDS: LORazepam 0.5 MG Tablet PO ×2 (00:50→23:03)
--- NOTE | 2024-06-06 01:32 | CPS ---
Patient brought in home ASV machine
[2024-06-06] MEDS: HYDROcodone Bitartrate/Apap 5/325 Tablet PO ×2 (04:51→10:53)
[2024-06-06] MEDS: Piperacil/Tazobactam 3.375 GM in 0.9% Normal Saline (50mL MB+) 50 ML IV (04:51)
[2024-06-06] MEDS: 0.9% Saline Lock 10 ML Syringe IV (04:52)
[2024-06-06 05:07] LABS: Absolute Lymphocyte Count 1.84 X10^3/uL (0.83-4.51); Absolute Neutrophil Count 6.2 X10^3/uL (2.0-7.7); Basophil# 0.04 X10^3/uL; Basophil% 0.4 % (0-1); Eosinophil# 0.33 X10^3/uL; Eosinophils% 3.5 % (0-5); Hematocrit 39.3 % (40-54); Hemoglobin 12.9 g/dL (13.0-16.5); Lymphocyte # 1.84 X10^3/ul (0.83-4.51); Lymphocyte % 19.7 % (19-41); Mean Corp Hgb Conc 32.8 g/dL (32-36); Mean Corpuscular Hgb 26.9 pg (27.0-32.0); Mean Corpuscular Volume 81.9 fL (80-94); Mean Platelet Vol. 8.7 fl (6.2-12.0); Monocyte% 9.7 % (0-10); NRBC Flagged by Analyzer 0 % (0-5); Neutrophil # 6.18 X10^3/uL (2.7-7.7); Neutrophil % 66.4 % (47-70); Platelet Count 291 K/mm3 (150-450); RBC Distribution Width CV 13.9 % (11.6-14.6); RBC Distribution Width SD 41.2 fl (35.1-43.9); White Blood Count 9.3 K/mm3 (4.4-11.0)
[2024-06-06 05:30] LABS: Anion Gap 5 (5-15); BUN 7 mg/dL (7-18); BUN/Creat Ratio 8.8 RATIO (10-20); Calcium,Total 8.5 mg/dL (8.5-10.1); Chloride 113 mmol/L (98-107); EST Glomerular Filtration Rate 108 mL/min (>60); Est Glom Filt Rate - Afr Amer 130 mL/min (>60); Estimated Creatinine Clearance 144.77 ml/min; Glucose 105 mg/dL (74-106); Potassium 3.9 mmol/L (3.5-5.1); Sodium Level 142 mmol/L (136-145)
[2024-06-06] MEDS: Dicyclomine 10 MG Capsule PO ×3 (08:00→17:32)
[2024-06-06] MEDS: Lactobacillis Acidophilus 1 CAP PO ×4 (08:01→20:41)
[2024-06-06] MEDS: Pantoprazole Sodium 40 MG Tablet PO (08:01)
[2024-06-06] MEDS: Vancomycin HCl 1,500 MG in 0.9% Normal Saline (500mL Bag) 500 ML 250 MG IV (08:01)
[2024-06-06] MEDS: Aspirin 81 MG TAB.CHEW PO (08:01)
[2024-06-06 09:33] LABS: M R Staph aureus DNA By PCR Negative (Negative); Probe Check PASS; Specimen Processing Control PASS
[2024-06-06] MEDS: Ceftriaxone 2 GM in 0.9% Normal Saline (50mL MB+) 50 ML IV (10:50)
--- NOTE | 2024-06-06 10:50 | PCM.CONS.GEN ---
Assessment & Plan Assessment/Plan (1) Sepsis: QUALIFIERS: Sepsis type: sepsis due to unspecified organism Sepsis acute organ dysfunction status: without acute organ dysfunction Qualified Code(s): A41.9 - Sepsis, unspecified organism (2) Pneumonia: QUALIFIERS: Pneumonia type: due to unspecified organism Laterality: right Lung location: lower lobe of lung Qualified Code(s): J18.9 - Pneumonia, unspecified organism PLAN: Overall much improved. Lab corrected, bcx x2 remain neg. Will narrow vanc/zosyn to ceftriaxone. Plan on discharge soon with 3 days po augmentin 875mg bid. Will follow, thank you (3) H/O mitral valve replacement with mechanical valve: HPI Consult Data Date of Consult: 06/06/24 HPI Narrative Reason for Consultation: CAP HPI Narrative: GEORGIE PAREKH, is a 54 M [facility], had URI about a week ago, then sudden onset chills, chestpain, cough, dyspnea. Having some green/brown sputum. Came to ED 06/04, admitted on vanc/zosyn. Now in icu, feeling much better. Full ROS performed and neg except as noted above. 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 Home Medications ?Medication ?Instructions ?Recorded ?Last Taken ?Type rosuvastatin 20 mg tablet 20 mg PO DAILY 02/18/20 Unknown History melatonin 10 mg tablet 10 mg PO QHS 01/01/22 Unknown History hydrocodone-acetaminophen 5-325mg 1 tab PO Q6H PRN PRN Pain 3 days 10/04/23 Unknown Rx 5mg-325mg #10 TABLETS aspirin 81 mg capsule 81 mg PO DAILY 06/04/24 Unknown History coenzyme Q10 100 mg capsule (Co 100 mg PO DAILY 06/04/24 Unknown History Q-10) dicyclomine 10 mg capsule 10 mg PO TID 06/04/24 Unknown History metoprolol succinate 50 mg 50 mg PO DAILY 06/04/24 Unknown History tablet,extended release 24 hr pantoprazole 40 mg tablet,delayed 40 mg PO DAILY 06/04/24 Unknown History release (Protonix) warfarin 10 mg tablet (Jantoven) 10 mg PO SUTH 06/04/24 Unknown History warfarin 5 mg tablet (Jantoven) 12.5 mg PO MOTUWEFRSA 06/04/24 Unknown History lorazepam 0.5 mg tablet (Ativan) 0.5 mg PO BID PRN anxiety 06/05/24 Unknown History Allergy/AdvReac Type Severity Reaction Status Date / Time Sulfa (Sulfonamide Allergy PT UNSURE Verified 06/04/24 19:30 Antibiotics) OF REACTION codeine AdvReac Other Verified 06/04/24 19:30 Family History Sister Colon cancer Father CAD (coronary artery disease) Myocardial infarction Surgical History (Updated 06/04/24 @ 23:[address] Gui Paredes DO) H/O mitral valve replacement with mechanical valve History of ureter repair History of cardiac catheterization History of open heart surgery History of ventricular septal myectomy S/P MVR (mitral valve replacement) Hx of colonoscopy History of tonsillectomy and adenoidectomy Social History Smoking Status: Never smoker Physical Exam Const alert, oriented x3 and no apparent distress General Appearance: cooperative HEENT normocephalic and head/scalp atraumatic Eyes PERRL and EOMs intact bilaterally Neck supple and No nodes Resp normal air movement and clear to auscultation bilaterally Cardio regular rate and regular rhythm; Negative for no clicks GI soft to palpation, non-tender and non-distended Extremity General Extremity: Negative for edema Skin no rashes or lesions noted Neuro CN's II-XII intact bilaterally Lab / Micro Data Attestation: I reviewed the patient's lab results. 06/06/24 04:50 06/06/24 04:50 Labs: Laboratory Results - last 24 hr 06/05/24 11:42: WBC 14.2 H, RBC 4.70, Hgb 12.9 L, Hct 38.9 L, MCV 82.8, MCH 27.4, MCHC 33.2, RDW Std Deviation 41.4, RDW Coeff of Kingsley 13.7, Plt Count 295, MPV 8.7, Immature Gran % (Auto) 0.400, Neut % (Auto) 75.6 H, Lymph % (Auto) 13.8 L, [place] % (Auto) 8.6, Eos % (Auto) 1.2, Baso % (Auto) 0.4, Absolute Neuts (auto) 10.7 H, Absolute Lymphs (auto) 1.96, Nucleated RBC % 0, Sodium 140, Potassium 3.8, Chloride 111 H, Carbon Dioxide 24.0, Anion Gap 5, BUN 11, Creatinine 0.86, Estim Creat Clear Calc 134.56, Est GFR (MDRD) Af Amer 119, Est GFR (MDRD) Non-Af 98, BUN/Creatinine Ratio 12.7, Glucose 93, Calcium 8.6 06/05/24 22:22: Vancomycin Trough 18.4 H 06/06/24 04:50: WBC 9.3, RBC 4.80, Hgb 12.9 L, Hct 39.3 L, MCV 81.9, MCH 26.9 L, MCHC 32.8, RDW Std Deviation 41.2, RDW Coeff of Kingsley 13.9, Plt Count 291, MPV 8.7, Immature Gran % (Auto) 0.300, Neut % (Auto) 66.4, Lymph % (Auto) 19.7, Amelia % (Auto) 9.7, Eos % (Auto) 3.5, Baso % (Auto) 0.4, Absolute Neuts (auto) 6.2, Absolute Lymphs (auto) 1.84, Nucleated RBC % 0, Sodium 142, Potassium 3.9, Chloride 113 H, Carbon Dioxide 24.0, Anion Gap 5, BUN 7, Creatinine 0.80, Estim Creat Clear Calc 144.77, Est GFR (MDRD) Af Amer 130, Est GFR (MDRD) Non-Af 108, BUN/Creatinine Ratio 8.8 L, Glucose 105, Calcium 8.5 06/06/24 07:50: MRSA (PCR) Negative Micro: Microbiology 06/05/24 16:08 Sputum, Expectorated/Coughed Respiratory Culture - Preliminary Appears to be normal respiratory ash. Further studies to follow. 06/04/24 20:22 Blood Culture (Wb) - Anticubital Left Blood Culture - Preliminary 06/04/24 20:33 Urine, Clean Catch Urine Culture - Preliminary Culture exhibits no growth.
--- NOTE | 2024-06-06 11:12 | PN_ITS ---
Subjective Subjective Patient seen and examined. He had no complaints today. He had an uneventful night. Review of systems is otherwise negative. He has remained hemodynamically stable. Objective Data Objective Data Vital Signs: Vital Signs Temp Pulse Resp BP Pulse Ox O2 Del Method 98 F 81 19 H 127/84 H 97 Room Air 06/06/24 07:57 06/06/24 07:57 06/06/24 07:57 06/06/24 07:57 06/06/24 07:57 06/06/24 07:57 Oxygen Delivery Method Room Air Weight: 247 lb 5.738 oz Body Mass Index (BMI) 30.1 Intake & Output: Intake and Output for Last 24 Hours 06/04/24 06/05/24 06/06/24 23:59 23:59 23:59 Intake Total 100 / 100 9435 / 9435 2049 / 2049 Output Total 5100 / 5350 0 / 0 Balance 100 / 100 4335 / 4085 -100 / -100 Lab / Micro Data 06/06/24 04:50 06/06/24 04:50 Labs: Laboratory Results - last 24 hr 06/05/24 11:42: WBC 14.2 H, RBC 4.70, Hgb 12.9 L, Hct 38.9 L, MCV 82.8, MCH 27.4, MCHC 33.2, RDW Std Deviation 41.4, RDW Coeff of Kingsley 13.7, Plt Count 295, MPV 8.7, Immature Gran % (Auto) 0.400, Neut % (Auto) 75.6 H, Lymph % (Auto) 13.8 L, [place] % (Auto) 8.6, Eos % (Auto) 1.2, Baso % (Auto) 0.4, Absolute Neuts (auto) 10.7 H, Absolute Lymphs (auto) 1.96, Nucleated RBC % 0, Sodium 140, Potassium 3.8, Chloride 111 H, Carbon Dioxide 24.0, Anion Gap 5, BUN 11, Creatinine 0.86, Estim Creat Clear Calc 134.56, Est GFR (MDRD) Af Amer 119, Est GFR (MDRD) Non-Af 98, BUN/Creatinine Ratio 12.7, Glucose 93, Calcium 8.6 06/05/24 22:22: Vancomycin Trough 18.4 H 06/06/24 04:50: WBC 9.3, RBC 4.80, Hgb 12.9 L, Hct 39.3 L, MCV 81.9, MCH 26.9 L, MCHC 32.8, RDW Std Deviation 41.2, RDW Coeff of Kingsley 13.9, Plt Count 291, MPV 8.7, Immature Gran % (Auto) 0.300, Neut % (Auto) 66.4, Lymph % (Auto) 19.7, [place] % (Auto) 9.7, Eos % (Auto) 3.5, Baso % (Auto) 0.4, Absolute Neuts (auto) 6.2, Absolute Lymphs (auto) 1.84, Nucleated RBC % 0, Sodium 142, Potassium 3.9, C hloride 113 H, Carbon Dioxide 24.0, Anion Gap 5, BUN 7, Creatinine 0.80, Estim Creat Clear Calc 144.77, Est GFR (MDRD) Af Amer 130, Est GFR (MDRD) Non-Af 108, BUN/Creatinine Ratio 8.8 L, Glucose 105, Calcium 8.5 06/06/24 07:50: MRSA (PCR) Negative Micro: Microbiology 06/05/24 16:08 Sputum, Expectorated/Coughed Respiratory Culture - Preliminary Appears to be normal respiratory ash. Further studies to follow. 06/04/24 20:22 Blood Culture (Wb) - Anticubital Left Blood Culture - Preliminary 06/04/24 20:33 Urine, Clean Catch Urine Culture - Preliminary Culture exhibits no growth. 06/05/24 00:57 Mucosa - Nasopharyngeal Respiratory Panel (PCR) - Final 06/04/24 20:33 Urine, Clean Catch Legionella Antigen - Final 06/04/24 20:33 Urine, Clean Catch Streptococcus pneumoniae Antigen (M - Final 06/04/24 20:22 Mucosa - Nasopharyngeal SARS-CoV-2, Influenza & RSV (PCR) - Final Physical Exam Const alert, oriented x3, no apparent distress, average body habitus, healthy appearing and well nourished General Appearance: cooperative and well developed HEENT normocephalic, head/scalp atraumatic, hearing grossly normal bilaterally, moist oral mucous membranes, oropharynx normal and gingiva normal Eyes PERRL and EOMs intact bilaterally Neck no lymphadenopathy, supple and no JVD Lymph Lymphatic: no lymphadenopathy noted and no lymphedema noted Resp normal respiratory effort, normal air movement and clear to auscultation bilaterally Resp Narrative: Diminished breath sounds noted over the Right lower lung field. Cardio regular rate, regular rhythm, S1 normal heart sound, S2 normal heart sound and no murmurs Cardio Narrative: mechanical mitral valve click GI normal to inspection, nondistended, normoactive bowel sounds and soft to palpation Extremity normal to inspection, full ROM, normal capillary refill, no clubbing, cyanosis or edema and no calf tenderness General Extremity: no tenderness to palpation of joints or extremities Skin Skin Narrative: Patient has no evidence of rash, abscess, wound or jaundice. General Skin Exam: no breakdown Neuro oriented x3, CN's II-XII intact bilaterally, moves all extremities, no focal motor deficits and no sensory deficits noted Sensorium / Orientation: awake, alert, oriented to person, oriented to place and oriented to time Speech: speech normal Motor Exam: strength 5/5 throughout and general weakness Psych thought process normal, cooperative and affect normal Appearance: appropriate Assessment & Plan Assessment/Plan (1) Sepsis: QUALIFIERS: Sepsis acute organ dysfunction status: without acute organ dysfunction Sepsis type: sepsis due to unspecified organism Qualified Code(s): A41.9 - Sepsis, unspecified organism (2) Pneumonia: QUALIFIERS: Laterality: right Lung location: lower lobe of lung Pneumonia type: due to unspecified organism Qualified Code(s): J18.9 - Pneumonia, unspecified organism PLAN: Plan #Sepsis due to pneumonia * Admitted with complaint of fever. He had fever 102 Fahrenheit leukocytosis of 12.9 and also lactic acidosis of 2.2. * On IV vancomycin and Zosyn. Urine for strep Legionella negative. * blood cultures negative. It was initially read as positive for gram positive cocci, but was amended to be negative. * ID on board.respiratory panel negative. * Respiratory panel also negative. * Lactic acid trended down with hydration. * ID narrowe down antibiotics to IV ceftriaxone. Per ID to discharge soon with 3 days of PO augmentin 875mg bid. * #Chest pain * Patient complained of chest pain on admission. * He does have a history of mitral valve mechanical replacements due to mitral stenosis in the setting of HOCM. * Troponins were not elevated. 2D echo was ordered but I will consulted 2D echo as patient just had a 2D echo done 2 weeks ago recommend clinic. He has a yearly echo did for surveillance of his history of HOCM. * 2D echo done at [facility] 2 weeks ago showed EF of 55% with no acute regional wall motion abnormalities. Patient showed me this from the patient portal. Official records requested from [facility] and pending #History of HOCM * S/p ventricular septal myomectomy. * Is complicated by left bundle branch block. On metoprolol. States his dose of metoprolol was recently reduced due to what seems like bradycardia. * #Benign essential hypertension: On metoprolol. Resume metoprolol. #History of mitral valve replacement * S/p mitral valve replacement mechanical valve. This was done at [facility]. * On Coumadin. Monitor INR. Target INR between 2.5-3.5. * #DVT prophylaxis: On Coumadin. Monitor INR. INR was 2.8 yesterday and is pending today. Charges/Coding Visit Charges Inpatient E&M: 66659 Subs Hosp L2
[2024-06-06 13:31] LABS: Prothrombin Time (Protime)PT. 32.2 SECONDS (11.7-14.9)
[2024-06-06] MEDS: Atorvastatin Calcium 40 MG Tablet PO (20:41)
[2024-06-06] MEDS: MELATONIN 10 MG TABLET PO (20:41)
[2024-06-06] MEDS: Acetaminophen 325 MG Tablet 650 MG PO (20:48)
[2024-06-07 02:00] VITALS: PULSE 68
[2024-06-07 03:00] VITALS: BP 115/81; PULSE 67; RESP 11; TEMP 36.6; O2SAT 96
[2024-06-07 04:27] VITALS: BMI 30.6
[2024-06-07 06:00] VITALS: RESP 16
[2024-06-07 06:27] LABS: Absolute Lymphocyte Count 1.96 X10^3/uL (0.83-4.51); Absolute Neutrophil Count 3.5 X10^3/uL (2.0-7.7); Basophil# 0.06 X10^3/uL; Basophil% 0.9 % (0-1); Eosinophil# 0.41 X10^3/uL; Eosinophils% 6.2 % (0-5); Hematocrit 39.9 % (40-54); Lymphocyte # 1.96 X10^3/ul (0.83-4.51); Lymphocyte % 29.4 % (19-41); Mean Corp Hgb Conc 32.6 g/dL (32-36); Mean Corpuscular Hgb 27.3 pg (27.0-32.0); Mean Corpuscular Volume 83.8 fL (80-94); Mean Platelet Vol. 9.3 fl (6.2-12.0); Monocyte% 10.5 % (0-10); NRBC Flagged by Analyzer 0 % (0-5); Neutrophil # 3.52 X10^3/uL (2.7-7.7); Neutrophil % 52.8 % (47-70); Platelet Count 307 K/mm3 (150-450); RBC Distribution Width CV 13.8 % (11.6-14.6); RBC Distribution Width SD 42.5 fl (35.1-43.9); Red Blood Count 4.76 M/mm3 (4.6-6.2); White Blood Count 6.7 K/mm3 (4.4-11.0)
[2024-06-07] MEDS: Dicyclomine 10 MG Capsule PO ×2 (06:33→10:47)
[2024-06-07 06:49] LABS: Anion Gap 6 (5-15); BUN 8 mg/dL (7-18); BUN/Creat Ratio 11.9 RATIO (10-20); Calcium,Total 8.9 mg/dL (8.5-10.1); Chloride 111 mmol/L (98-107); Creatinine, Serum 0.67 mg/dL (0.70-1.30); EST Glomerular Filtration Rate 131 mL/min (>60); Est Glom Filt Rate - Afr Amer 158 mL/min (>60); Estimated Creatinine Clearance 174.14 ml/min; Glucose 96 mg/dL (74-106); Sodium Level 140 mmol/L (136-145)
[2024-06-07 08:50] VITALS: BP 117/70; PULSE 88; RESP 17; TEMP 36.7; O2SAT 98
[2024-06-07] MEDS: Lactobacillis Acidophilus 1 CAP PO (08:52)
[2024-06-07] MEDS: Pantoprazole Sodium 40 MG Tablet PO (08:52)
[2024-06-07] MEDS: Aspirin 81 MG TAB.CHEW PO (08:52)
[2024-06-07] MEDS: Ceftriaxone 2 GM in 0.9% Normal Saline (50mL MB+) 50 ML IV (08:56)
[2024-06-07] MEDS: 0.9% Saline Lock 10 ML Syringe IV (08:56)
[2024-06-07 08:58] LABS: International Normalized Ratio 2.9; Prothrombin Time (Protime)PT. 30.9 SECONDS (11.7-14.9)
--- NOTE | 2024-06-07 14:50 | DCINST_ITS ---
Discharge Instructions Diet Discharge Diet: Low fat / Low cholesterol DC O2, CPAP, BIPAP needs Home O2 Discharge instructions: No Dressing / Incision Discharge Activity: Return to Normal Activity Weight Bearing Status: Weight bearing as tolerated Dressing / Incision Call your doctor if you observe: Fever of 101 or Higher, Shortness of breath, Dizziness, Swelling in the ankles and Chest pain Follow Up Care Test Results: Test results from this visit will be discussed in further detail at your follow- up appointment, if applicable. Discharge Plan Admission Admit Date/Time: 06/05/24 00:19 Primary Reason for Your Visit: sepsis due to pneumonia Attending Provider: Lyndsey Garza Primary Care Provider: NAKIA WAYNE Consulting Providers: Manav Martino; Krzysztof Rangel Instructions Patient Instructions: ED Pneumonia (Adult) Discharge Orders/Prescriptions Prescriptions: New amoxicillin-pot clavulanate 875-125 mg tablet 1 tab PO BID Qty: 6 0RF Continued rosuvastatin 20 MG tablet 20 mg PO DAILY melatonin 10 mg Tablet 10 mg PO QHS hydrocodone-acetaminophen 5-325 mg tablet 1 tab PO Q6H PRN PRN (Reason: Pain) 3 Days Qty: 10 0RF warfarin [Jantoven] 10 mg tablet 10 mg PO SUTH warfarin [Jantoven] 5 mg tablet 12.5 mg PO MOTUWEFRSA metoprolol succinate 50 mg tablet extended release 24 hr 50 mg PO DAILY aspirin 81 mg capsule 81 mg PO DAILY dicyclomine 10 mg capsule 10 mg PO TID coenzyme Q10 [Co Q-10] 100 mg capsule 100 mg PO DAILY pantoprazole [Protonix] 40 mg tablet,delayed release (DR/EC) 40 mg PO DAILY lorazepam [Ativan] 0.5 mg tablet 0.5 mg PO BID PRN (Reason: anxiety) Referrals / Follow Up: NAKIA WAYNE [Other] - Within 1 Week NAKIA WAYNE [Other] Disposition Disposition (needs filled in before D/C Order can be placed): Home, Self Care
--- NOTE | 2024-06-07 14:51 | DS.PCM_ITS ---
Providers Date of Admission: 06/05/24 Date of Discharge: 06/07/24 Primary Care Physician: NAKIA WAYNE Consultations 06/06/24 07:22 Consult: Infectious Disease Routine Consulting Provider: Krzysztof Rangel Reason for Consult: gram positive cocci bacteremia; has mechanical mitral valve EMERGENT Consult: No MD Notified: Yes Date Notified: 06/06/24 Time Notified: 07:40 Method of Notification: Text Reason For Visit: ACUTE FEBRILE ILLNESS, SIRS Diagnosis Discharge Diagnosis (1) Sepsis: Status: Acute Code(s): A41.9 - Sepsis, unspecified organism Qualifiers: Sepsis acute organ dysfunction status: without acute organ dysfunction Sepsis type: sepsis due to unspecified organism Qualified Code(s): A41.9 - Sepsis, unspecified organism (2) Pneumonia: Status: Acute Code(s): J18.9 - Pneumonia, unspecified organism Qualifiers: Laterality: right Lung location: lower lobe of lung Pneumonia type: d ue to unspecified organism Qualified Code(s): J18.9 - Pneumonia, unspecified organism Plan #Sepsis due to pneumonia * Admitted with complaint of fever. He had fever 102 Fahrenheit leukocytosis of 12.9 and also lactic acidosis of 2.2. * On IV vancomycin and Zosyn. Urine for strep Legionella negative. * blood cultures negative. It was initially read as positive for gram positive cocci, but was amended to be negative. * ID on board.respiratory panel negative. * Respiratory panel also negative. * Lactic acid trended down with hydration. * ID narrowe down antibiotics to IV ceftriaxone. Per ID to discharge soon with 3 days of PO augmentin 875mg bid. * #Chest pain * Patient complained of chest pain on admission. * He does have a history of mitral valve mechanical replacements due to mitral stenosis in the setting of HOCM. * Troponins were not elevated. 2D echo was ordered but I will consulted 2D echo as patient just had a 2D echo done 2 weeks ago recommend clinic. He has a yearly echo did for surveillance of his history of HOCM. * 2D echo done at [facility] 2 weeks ago showed EF of 55% with no acute regional wall motion abnormalities. Patient showed me this from the patient portal. Official records requested from [facility] and pending #History of HOCM * S/p ventricular septal myomectomy. * Is complicated by left bundle branch block. On metoprolol. States his dose of metoprolol was recently reduced due to what seems like bradycardia. * #Benign essential hypertension: On metoprolol. Resume metoprolol. #History of mitral valve replacement * S/p mitral valve replacement mechanical valve. This was done at [facility]. * On Coumadin. Monitor INR. Target INR between 2.5-3.5. * #DVT prophylaxis: On Coumadin. Monitor INR. INR was 2.8 yesterday and is pending today. Medications at Discharge Home Medications rosuvastatin 20 mg tablet 20 mg PO DAILY 02/18/20 melatonin 10 mg tablet 10 mg PO QHS 01/01/22 hydrocodone-acetaminophen 5-325mg 5mg-325mg 1 tab PO Q6H PRN PRN Pain 3 days #10 TABLETS 10/04/23 aspirin 81 mg capsule 81 mg PO DAILY 06/04/24 coenzyme Q10 100 mg capsule (Co Q-10) 100 mg PO DAILY 06/04/24 dicyclomine 10 mg capsule 10 mg PO TID 06/04/24 metoprolol succinate 50 mg tablet,extended release 24 hr 50 mg PO DAILY 06/04/24 pantoprazole 40 mg tablet,delayed release (Protonix) 40 mg PO DAILY 06/04/24 warfarin 10 mg tablet (Jantoven) 10 mg PO SUTH 06/04/24 warfarin 5 mg tablet (Jantoven) 12.5 mg PO MOTUWEFRSA 06/04/24 lorazepam 0.5 mg tablet (Ativan) 0.5 mg PO BID PRN anxiety 06/05/24 amoxicillin 875 mg-potassium clavulanate 125 mg tablet 1 tab PO BID #6 tabs 06/07/24 Hospital Course Operations None Procedures None Summary of Care Provided Minutes Spent on Discharge: 45 Hospital Course: Patient is a 54-year-old male with an extensive past medical history as outlined including history of HOCM s/p ventricular septal myomectomy and history of mechanical mitral valve replacement, on Coumadin was admitted to the ED on 06/04/2024 with a complaint of fever, chest pain and shortness of breath. Symptoms started day before admission. His fever and chills are gradually worsening he also had an associated nonproductive cough with associated pleuritic chest pain. He was admitted to [facility] with palpitations. His symptoms did not improve so he came into the ED. CT of the chest showed groundglass pulmonary nodule opacities involving the right lung with concern for infectious versus inflammatory process. WBC was elevated at 12.9 lactic acid was 2.2. He was admitted and managed for sepsis due to probable community- acquired pneumonia. He was started on broad-spectrum antibiotics. Infectious disease was consulted. He also did complain of chest pain on admission. Troponins were not elevated. 2D echo was ordered but this was canceled as he had had a 2D echo done just 2 weeks prior at [facility] which showed EF of 55% with no regional wall motion abnormalities. Blood cultures initially grew gram-positive cocci. CT of the brain on admission showed. Blood cultures were negative. Microbiology subsequently reviewed the blood cultures and the review read as negative. ID was consulted and antibiotics were narrowed down to IV ceftriaxone. Patient's symptoms resolved and he felt much better. Per ID recommendations he was therefore discharged home on 06/07/2024 with a 3-day course of p.o. Augmentin. He is follow-up with his primary care doctor within 1 to 2 weeks. Patient was seen and examined prior to discharge. He had no active complaints. Review of systems otherwise negative. He was eager to be discharged home. Labs and vitals reviewed. Home medication reviewed and reconciled. Physical Exam Const alert, oriented x3, no apparent distress, average body habitus, healthy appearing and well nourished General Appearance: cooperative, comfortable, well kempt and well developed Orientation / Consciousness: awake Exam Limitations: no limitations HEENT normocephalic, head/scalp atraumatic, hearing grossly normal bilaterally, moist oral mucous membranes and oropharynx normal Mouth: oral and palatal mucosa normal Eyes PERRL, EOMs intact bilaterally and conjunctivae normal Neck no lymphadenopathy, supple and no JVD Lymph Lymphatic: no lymphadenopathy noted and no lymphedema noted Resp normal respiratory effort, normal air movement and clear to auscultation bilaterally Cardio regular rate, regular rhythm, S1 normal heart sound, S2 normal heart sound and no murmurs Cardio Narrative: mechanical mitral valve click GI normal to inspection, nondistended, normoactive bowel sounds, soft to palpation, non-tender and non-distended Extremity normal to inspection, full ROM, normal capillary refill, no clubbing, cyanosis or edema and no calf tenderness General Extremity: no tenderness to palpation of joints or extremities Skin Skin Narrative: Patient has no evidence of rash, abscess, wound or jaundice. General Skin Exam: no breakdown Neuro oriented x3, CN's II-XII intact bilaterally, moves all extremities, no focal motor deficits and no sensory deficits noted Sensorium / Orientation: awake, alert, oriented to person, oriented to place and oriented to time Speech: speech normal Motor Exam: strength 5/5 throughout and general weakness Psych thought process normal, cooperative and affect normal Appearance: appropriate Weight / BMI Weight Weight: 251 lb 5.231 oz Body Mass Index (BMI) 30.6 ABG / Lab / Microbiology Data 06/07/24 05:01 06/07/24 05:01 Laboratory: Laboratory Results - last 24 hr 06/07/24 05:01: WBC 6.7, RBC 4.76, Hgb 13.0, Hct 39.9 L, MCV 83.8, MCH 27.3, MCHC 32.6, RDW Std Deviation 42.5, RDW Coeff of Kingsley 13.8, Plt Count 307, MPV 9.3, Immature Gran % (Auto) 0.200, Neut % (Auto) 52.8, Lymph % (Auto) 29.4, [place] % (Auto) 10.5 H, Eos % (Auto) 6.2 H, Baso % (Auto) 0.9, Absolute Neuts (auto) 3.5, Absolute Lymphs (auto) 1.96, Nucleated RBC % 0, Sodium 140, Potassium 4.0, Chloride 111 H, Carbon Dioxide 24.0, Anion Gap 6, BUN 8, Creatinine 0.67 L, Estim Creat Clear Calc 174.14, Est GFR (MDRD) Af Amer 158, Est GFR (MDRD) Non-Af 131, BUN/Creatinine Ratio 11.9, Glucose 96, Calcium 8.9 06/07/24 07:50: PT 30.9 H, INR 2.9 Microbiology: Microbiology 06/06/24 12:48 Sputum, Expectorated/Coughed Gram Stain - Final 06/06/24 12:48 Sputum, Expectorated/Coughed Respiratory Culture - Final Mixed normal respiratory ash. No Streptococcus pneumoniae, beta-hemolytic Streptococcus or Staphylococcus aureus isolated. 06/05/24 16:08 Sputum, Expectorated/Coughed Gram Stain - Final 06/05/24 16:08 Sputum, Expectorated/Coughed Respiratory Culture - Final Mixed normal respiratory ash. No Streptococcus pneumoniae, beta-hemolytic Streptococcus or Staphylococcus aureus isolated. 06/04/24 20:22 Blood Culture (Wb) - Anticubital Left Blood Culture - Preliminary 06/04/24 20:33 Blood Culture (Wb) - Anticubital Right Blood Culture - Preliminary No growth in 48 hours. 06/04/24 20:33 Urine, Clean Catch Urine Culture - Final Culture exhibits no growth. 06/05/24 00:57 Mucosa - Nasopharyngeal Respiratory Panel (PCR) - Final 06/04/24 20:33 Urine, Clean Catch Legionella Antigen - Final 06/04/24 20:33 Urine, Clean Catch Streptococcus pneumoniae Antigen (M - Final 06/04/24 20:22 Mucosa - Nasopharyngeal SARS-CoV-2, Influenza & RSV (PCR) - Final D/C Instructions Discharge Diet: Low fat / Low cholesterol Discharge Activity: Return to Normal Activity Weight Bearing Status: Weight bearing as tolerated Call your doctor if you observe: Fever of 101 or Higher, Shortness of breath, Dizziness, Swelling in the ankles and Chest pain DC O2, CPAP, BIPAP Needs Home O2 Discharge instructions: No DC home with Oxygen: No Meaningful Use Info Meaningful Use Meaningful Use Diagnoses (Choose all that apply): None applicable Ischemic Stroke Statin Dosing Therapy Reference: STATIN DOSE THERAPY REFERENCE: * Patients > 75 years receive moderate or high dose statin therapy. * Patients 75 years or YOUNGER should receive HIGH intensity statin dose unless contraindicated. You will be required to document reason for non-treatment if statin daily dose does not meet guidelines. HIGH DOSE STATIN THERAPY DAILY Atorvastatin > than or = to 40 mg Rosuvastatin > than or = to 20 mg Amlodipine + Atorvastatin > than or = to 2.5/40 mg Ezetimibe + Simvastatin 10/80 mg Simvastatin 80mg Discharge Plan Admission Admit Date/Time: 06/05/24 00:19 Primary Reason for Your Visit: sepsis due to pneumonia Attending Provider: Lyndsey Garza Primary Care Provider: NAKIA WAYNE Consulting Providers: Manav Martino; Krzysztof Rangel Instructions Patient Instructions: ED Pneumonia (Adult) Discharge Orders/Prescriptions Prescriptions: New amoxicillin-pot clavulanate 875-125 mg tablet 1 tab PO BID Qty: 6 0RF Continued rosuvastatin 20 MG tablet 20 mg PO DAILY melatonin 10 mg Tablet 10 mg PO QHS hydrocodone-acetaminophen 5-325 mg tablet 1 tab PO Q6H PRN PRN (Reason: Pain) 3 Days Qty: 10 0RF warfarin [Jantoven] 10 mg tablet 10 mg PO SUTH warfarin [Jantoven] 5 mg tablet 12.5 mg PO MOTUWEFRSA metoprolol succinate 50 mg tablet extended release 24 hr 50 mg PO DAILY aspirin 81 mg capsule 81 mg PO DAILY dicyclomine 10 mg capsule 10 mg PO TID coenzyme Q10 [Co Q-10] 100 mg capsule 100 mg PO DAILY pantoprazole [Protonix] 40 mg tablet,delayed release (DR/EC) 40 mg PO DAILY lorazepam [Ativan] 0.5 mg tablet 0.5 mg PO BID PRN (Reason: anxiety) Referrals / Follow Up: NAKIA WAYNE [Other] - Within 1 Week NAKIA WAYNE [Other] Disposition Disposition (needs filled in before D/C Order can be placed): Home, Self Care Charges/Coding Visit Charges Inpatient E&M: 85525 Disch Hosp >30min
[2024-06-07 15:19] VITALS: BP 107/89; PULSE 78; RESP 16; TEMP 36.7; O2SAT 98
--- NOTE | 2024-06-07 16:05 | PHA.DC_ITS ---
Pharmacy [facility] Pharmacy Service has performed discharge medication reconciliation and counseling for this patient. 1. AMOXICILLIN/CLAVULANATE 875MG PO BID X 3 DAYS The patient's discharge medication list was reviewed for discrepancies and discrepancies were resolved. The patient was counseled on the following discharge medications and changes in medications for homegoing were reviewed. The Reason for Use, instructions for use, and potential side effects were reviewed for all new medications. The patient's questions regarding all of their medications were answered. The patient was able to verbally demonstrate an understanding of their discharge medications. Medications at Discharge Home Medications rosuvastatin 20 mg tablet 20 mg PO DAILY 02/18/20 melatonin 10 mg tablet 10 mg PO QHS 01/01/22 hydrocodone-acetaminophen 5-325mg 5mg-325mg 1 tab PO Q6H PRN PRN Pain 3 days #10 TABLETS 10/04/23 aspirin 81 mg capsule 81 mg PO DAILY 06/04/24 coenzyme Q10 100 mg capsule (Co Q-10) 100 mg PO DAILY 06/04/24 dicyclomine 10 mg capsule 10 mg PO TID 06/04/24 metoprolol succinate 50 mg tablet,extended release 24 hr 50 mg PO DAILY 06/04/24 pantoprazole 40 mg tablet,delayed release (Protonix) 40 mg PO DAILY 06/04/24 warfarin 10 mg tablet (Jantoven) 10 mg PO SUTH 06/04/24 warfarin 5 mg tablet (Jantoven) 12.5 mg PO MOTUWEFRSA 06/04/24 lorazepam 0.5 mg tablet (Ativan) 0.5 mg PO BID PRN anxiety 06/05/24 amoxicillin 875 mg-potassium clavulanate 125 mg tablet 1 tab PO BID #6 tabs 06/07/24
== END 2024-06-07 16:30 | disposition home or self-care (01) | DRG 871 ==
LOC: ED 23:12 → ICU 06-05 00:37 → MS2 06-06 18:17
PROVIDERS: Admitting Provider Internal Medicine; Emergency Provider Emergency Medicine; Visit Provider Student in an Organized Health Care Education/Training Program
DX: A41.9 Sepsis, unspecified organism (principal); J18.9 Pneumonia, unspecified organism; I42.1 Obstructive hypertrophic cardiomyopathy; I10 Essential (primary) hypertension; E66.9 Obesity, unspecified; Z95.2 Presence of prosthetic heart valve; E78.00 Pure hypercholesterolemia, unspecified; I44.7 Left bundle-branch block, unspecified; Z68.32 Body mass index [BMI] 32.0-32.9, adult; Z79.01 Long term (current) use of anticoagulants; Z79.82 Long term (current) use of aspirin; Z79.899 Other long term (current) drug therapy
CPT/HCPCS: 36415; 71046; 71260; 74177; 80048; 80061; 80202; 81001; 83605; 84443; 84484; 85025; 85610; 85730; 87040; 87070; 87086; 87205; 87449; 87631; 87633; 87641; 93005; 94762; 99285; Q9967; A4216; J0696

== ENCOUNTER 2024-07-07 08:00 | Emergency (ER) | payer OTHER, SELFPAY ==
[2024-07-07 08:01] VITALS: BP 153/83; PULSE 73; RESP 15; TEMP 36.7; O2SAT 100; BMI 29.0
[2024-07-07] MEDS: Diphth,Pertuss(Acell),Tet Vac 0.5 ML Vial IM (08:34)
[2024-07-07] MEDS: Lidocaine 1% /Epi 1:100 (20ml) 20 ML Vial 4 ML INFILT (08:34)
--- NOTE | 2024-07-07 09:01 | EX.ED.GENINJ ---
HPI History of Present Illness Chief Complaint: Laceration Informant: patient Narrative Narrative: 54-year-old male presenting with right thumb laceration. Patient was at work today when he cut his left thumb on the metal shelving. He notes he is on Coumadin for mechanical heart valve. He checks his levels at home. He is unsure of his last tetanus. [facility] Medical History Hypertrophic obstructive cardiomyopathy High cholesterol Easy bruising Excessive bleeding Gastric reflux Non-smoker Sleep apnea History of echocardiogram History of stress test Cardiology follow-up encounter History of irregular heartbeat History of ureteral obstruction Hypercholesteremia 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 Home Medications ?Medication ?Instructions ?Recorded ?Last Taken ?Type rosuvastatin 20 mg tablet 20 mg PO DAILY 02/18/20 Unknown History melatonin 10 mg tablet 10 mg PO QHS 01/01/22 Unknown History hydrocodone-acetaminophen 5-325mg 1 tab PO Q6H PRN PRN Pain 3 days 10/04/23 Unknown Rx 5mg-325mg #10 TABLETS aspirin 81 mg capsule 81 mg PO DAILY 06/04/24 Unknown History coenzyme Q10 100 mg capsule (Co 100 mg PO DAILY 06/04/24 Unknown History Q-10) dicyclomine 10 mg capsule 10 mg PO TID 06/04/24 Unknown History metoprolol succinate 50 mg 50 mg PO DAILY 06/04/24 Unknown History tablet,extended release 24 hr pantoprazole 40 mg tablet,delayed 40 mg PO DAILY 06/04/24 Unknown History release (Protonix) warfarin 10 mg tablet (Jantoven) 10 mg PO SUTH 06/04/24 Unknown History warfarin 5 mg tablet (Jantoven) 12.5 mg PO MOTUWEFRSA 06/04/24 Unknown History lorazepam 0.5 mg tablet (Ativan) 0.5 mg PO BID PRN anxiety 06/05/24 Unknown History amoxicillin 875 mg-potassium 1 tab PO BID #6 tabs 06/07/24 Unknown Rx clavulanate 125 mg tablet Allergy/AdvReac Type Severity Reaction Status Date / Time Sulfa (Sulfonamide Allergy PT UNSURE Verified 07/07/24 08:09 Antibiotics) OF REACTION codeine AdvReac Other Verified 07/07/24 08:09 Family History Sister Colon cancer Father CAD (coronary artery disease) Myocardial infarction Surgical History H/O mitral valve replacement with mechanical valve History of ureter repair History of cardiac catheterization History of open heart surgery History of ventricular septal myectomy S/P MVR (mitral valve replacement) Hx of colonoscopy History of tonsillectomy and adenoidectomy Social History Smoking Status: Never smoker ROS ROS ED Constitutional Constitutional ED: Denies chills or weight loss Eyes Eyes: Denies change in vision or diplopia ENT ENT ED: Denies ear pain, rhinorrhea or sore throat Cardiovascular Cardiovascular: Denies chest pain, orthopnea, palpitations or racing heartbeat Respiratory/Chest Respiratory/Chest: Denies cough, dyspnea or orthopnea Gastrointestinal Gastrointestinal: Denies abdominal pain, diarrhea, nausea or vomiting Genitourinary Genitourinary ED: Denies dysuria, hematuria or urinary frequency Musculoskeletal Musculoskeletal: Denies arthralgias or myalgias Integumentary Reports other Details: Right thumb laceration ; Denies abscess or rash Neurologic Neurologic: Denies headache(s) or weakness Psychiatric Psychiatric: Denies anxiety, depression, suicidal ideation or suicidal thoughts Endocrine Endocrinology: Denies polydipsia, polyphagia or polyuria Allergic/Immunologic Allergic/Immunologic ED: Denies mouth swelling, tongue swelling or urticaria EXAM Physical Exam Const Vital Signs: 07/07/24 08:01 Temperature 98.1 F Temperature Source Temporal Pulse Rate 73 Respiratory Rate 15 Blood Pressure 153/83 H Blood Pressure Mean 106 Pulse Ox 100 Oxygen Delivery Method Room Air Positive well nourished and well developed General Appearance ED: well developed HEENT Reports normocephalic, head/scalp atraumatic and moist mucous membranes Eyes PERRL and EOMs intact bilaterally Neck no lymphadenopathy, supple and no JVD Resp normal respiratory effort and clear to auscultation bilaterally Cardio regular rate, regular rhythm and no murmurs GI normal to inspection, nondistended, normoactive bowel sounds and non-tender Palpation: soft Back/Spine no CVA tenderness and normal ROM Extremity Extremity Narrative: There is about a 1.5 cm linear laceration over the volar aspect near the interphalangeal joint of the right thumb. Wound edges are not approximated. There is mild venous bleeding. Normal tendon function. Neurovascular intact distal General Extremety ED: Negative for edema General Extremity: Negative for edema Neuro oriented x3 and CN's II-XII intact bilaterally Sensorium / Orientation: alert Motor Exam: strength 5/5 throughout Psych mental status grossly normal Mood & Affect: Negative for depressed or tearful Skin no rashes or lesions noted and no wounds MDM MDM MDM Narrative Medical decision making narrative: Differential diagnosis includes but not limited to laceration tendon laceration neurovascular injury Coumadin coagulopathy bony injury Patient is neurovascularly intact with normal tendon function. I do not appreciate visualization of the tendon. The wound was locally anesthetized using 1% lidocaine with epinephrine. It was washed with Shur-Clens and explored. It was closed using a total of 3 simple interrupted 4-0 Ethilon sutures. Wound care discussed with patient. States this will need to be removed in 10 days. Tetanus was updated with Adaángela. History & Record Review Discussion w/independent historian: Patient Lab Data Attestation: I reviewed the patient's lab results. Discharge Plan Triage Chief Complaint: Laceration ED Provider: Yoshi Segal Dx/Rx/DC Orders Clinical Impression: Finger laceration, Anticoagulated on Coumadin Instructions: ED Laceration, Hand: All Closures Prescriptions: No Action rosuvastatin 20 MG tablet 20 mg PO DAILY melatonin 10 mg Tablet 10 mg PO QHS hydrocodone-acetaminophen 5-325 mg tablet 1 tab PO Q6H PRN PRN (Reason: Pain) 3 Days Qty: 10 0RF warfarin [Jantoven] 10 mg tablet 10 mg PO SUTH warfarin [Jantoven] 5 mg tablet 12.5 mg PO MOTUWEFRSA metoprolol succinate 50 mg tablet extended release 24 hr 50 mg PO DAILY aspirin 81 mg capsule 81 mg PO DAILY dicyclomine 10 mg capsule 10 mg PO TID coenzyme Q10 [Co Q-10] 100 mg capsule 100 mg PO DAILY pantoprazole [Protonix] 40 mg tablet,delayed release (DR/EC) 40 mg PO DAILY lorazepam [Ativan] 0.5 mg tablet 0.5 mg PO BID PRN (Reason: anxiety) amoxicillin-pot clavulanate 875-125 mg tablet 1 tab PO BID Qty: 6 0RF Primary Care Provider: NAKIA WAYNE Referrals: NAKIA WAYNE [Other] [facility] [Provider Group] - 10 Day for suture removal (for suture removal) Activity Restrictions/Additional Instructions: Antibiotic ointment once a day. Please limit range of motion over that area as we discussed. Stitches will need to be removed in 10 days. Print Language: Tongan Disposition Disposition: Home, Self Care Discharge Date/Time: 07/07/24 09:00
== END 2024-07-07 09:00 | disposition home or self-care (01) ==
PROVIDERS: Emergency Provider Emergency Medicine; Visit Provider Emergency Medicine
DX: S61.011A Laceration without foreign body of right thumb without damage to nail, initial encounter (principal); W26.8XXA Contact with other sharp object(s), not elsewhere classified, initial encounter; Y99.0 Civilian activity done for income or pay; Z95.2 Presence of prosthetic heart valve; Z79.01 Long term (current) use of anticoagulants; Z79.82 Long term (current) use of aspirin; Z23 Encounter for immunization
CPT/HCPCS: 12001; 90715; 99283

== ENCOUNTER 2024-10-20 18:57 | Emergency (ER) | payer OTHER, SELFPAY ==
[2024-10-20 18:57] VITALS: BP 126/81; BP 133/106; PULSE 69; PULSE 84; RESP 16; RESP 17; TEMP 36.6; O2SAT 100; O2SAT 97
--- NOTE | 2024-10-20 19:23 | EX.ED.DYSGE1 ---
HPI History of Present Illness Chief Complaint: General Illness Informant: patient Narrative Narrative: 54-year-old male history of hypertrophic cardiomyopathy and mechanical heart valve on Coumadin presenting to the emergency room with apparent painful bruising of the left forearm. Patient stated that he noted some dark bruising appearing in the volar medial aspect of his left forearm. He does not recall any injury. He has not had an IV on that arm for more than 2 months. He notes the darkened areas of the skin over the medial elbow medial forearm and on the volar aspect. No fevers. He checks his INRs at home and it was 3 this morning. He noted that his urine seemed darker than normal. [facility] Medical History Obesity (BMI 30.0-34.9) Chronic anticoagulation Hypertrophic obstructive cardiomyopathy High cholesterol Easy bruising Excessive bleeding Gastric reflux Non-smoker Sleep apnea History of echocardiogram History of stress test Cardiology follow-up encounter History of irregular heartbeat History of ureteral obstruction Hypercholesteremia 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 Home Medications ?Medication ?Instructions ?Recorded ?Last Taken ?Type rosuvastatin 20 mg tablet 20 mg PO DAILY 02/18/20 Unknown History melatonin 10 mg tablet 10 mg PO QHS 01/01/22 Unknown History aspirin 81 mg capsule 81 mg PO DAILY 06/04/24 Unknown History coenzyme Q10 100 mg capsule (Co 100 mg PO DAILY 06/04/24 Unknown History Q-10) dicyclomine 10 mg capsule 10 mg PO TID 06/04/24 Unknown History metoprolol succinate 50 mg 50 mg PO DAILY 06/04/24 Unknown History tablet,extended release 24 hr pantoprazole 40 mg tablet,delayed 40 mg PO DAILY 06/04/24 Unknown History release (Protonix) warfarin 10 mg tablet (Jantoven) 10 mg PO SUTH 06/04/24 Unknown History warfarin 5 mg tablet (Jantoven) 12.5 mg PO MOTUWEFRSA 06/04/24 Unknown History lorazepam 0.5 mg tablet (Ativan) 0.5 mg PO BID PRN anxiety 06/05/24 Unknown History Allergy/AdvReac Type Severity Reaction Status Date / Time Sulfa (Sulfonamide Allergy PT UNSURE Verified 10/20/24 19:01 Antibiotics) OF REACTION codeine AdvReac Other Verified 10/20/24 19:01 Family History Sister Colon cancer Father CAD (coronary artery disease) Myocardial infarction Surgical History H/O mitral valve replacement with mechanical valve History of ureter repair History of cardiac catheterization History of open heart surgery History of ventricular septal myectomy S/P MVR (mitral valve replacement) Hx of colonoscopy History of tonsillectomy and adenoidectomy Social History Smoking Status: Never smoker alcohol intake: never ROS ROS ED Constitutional Constitutional ED: Denies chills or weight loss Eyes Eyes: Denies change in vision or diplopia ENT ENT ED: Denies ear pain, rhinorrhea or sore throat Cardiovascular Cardiovascular: Denies chest pain, orthopnea, palpitations or racing heartbeat Respiratory/Chest Respiratory/Chest: Denies cough, dyspnea or orthopnea Gastrointestinal Gastrointestinal: Denies abdominal pain, diarrhea, nausea or vomiting Genitourinary Genitourinary ED: Denies dysuria, hematuria or urinary frequency Musculoskeletal Musculoskeletal: Denies arthralgias or myalgias Integumentary Denies abscess or rash Neurologic Neurologic: Denies headache(s) or weakness Psychiatric Psychiatric: Denies anxiety, depression, suicidal ideation or suicidal thoughts Endocrine Endocrinology: Denies polydipsia, polyphagia or polyuria Hematologic/Lymphatic Hematologic/Lymphatic: Reports easy bleeding and easy bruising Allergic/Immunologic Allergic/Immunologic ED: Denies mouth swelling, tongue swelling or urticaria EXAM Physical Exam Const Vital Signs: 10/20/24 18:57 10/20/24 18:57 Temperature 97.8 F Temperature Source Temporal Pulse Rate 84 69 Respiratory Rate 16 17 Blood Pressure 133/106 H 126/81 H Blood Pressure Mean 115 96 Pulse Ox 100 97 Oxygen Delivery Method Room Air Positive well nourished and well developed General Appearance ED: well developed HEENT Reports normocephalic, head/scalp atraumatic and moist mucous membranes Eyes PERRL and EOMs intact bilaterally Neck no lymphadenopathy, supple and no JVD Resp normal respiratory effort and clear to auscultation bilaterally Cardio regular rate and regular rhythm Cardio Narrative: Mechanical click consistent with history of mechanical heart valve replacement GI normal to inspection, nondistended, normoactive bowel sounds and non-tender Palpation: soft Back/Spine no CVA tenderness and normal ROM Extremity Extremity Narrative: There are areas of dark ecchymosis over the volar distal left forearm medial mid forearm and medial elbow. I do not appreciate any joint effusion. No lymphangitic streaking. The areas are not warm. They are not palpable. No palpable cords in the veins. General Extremety ED: Negative for edema General Extremity: Negative for edema Neuro oriented x3 and CN's II-XII intact bilaterally Sensorium / Orientation: alert Motor Exam: strength 5/5 throughout Psych mental status grossly normal Mood & Affect: Negative for depressed or tearful Skin no rashes or lesions noted and no wounds MDM MDM MDM Narrative Medical decision making narrative: Differential diagnosis includes but not limited to hematuria UTI thrombocytopenia anemia supratherapeutic INR Patient's urine specimen demonstrates greater than 100 red blood cells 0 white cells 0 bacteria negative nitrates negative leukocyte esterase. He is not having abdominal pain or flank pain. No dysuria. The urine is still yellow and is not bloody. Patient's INR is 2.7 so within the therapeutic range for him. His hemoglobin is 13.7 platelet count 319 and white count of 5.4. Patient does not recall any trauma to the arm. It is in a very possible place where he could have caused contusion. I think the patient can be observed at home. Return if worsening or concerns. Patient is comfortable with this plan History & Record Review Additional record(s) reviewed:: Prior inpatient record, Prior ED visit and Prior labs Lab Data Attestation: I reviewed the patient's lab results. Labs: Laboratory Results - last 24 hr 10/20/24 10/20/24 19:45 20:21 WBC 5.4 RBC 5.18 Hgb 13.7 Hct 41.9 MCV 80.9 MCH 26.4 L MCHC 32.7 RDW Std Deviation 41.2 RDW Coeff of [place] 14.2 Plt Count 319 MPV 8.8 Immature Gran % (Auto) 0.200 Neut % (Auto) 41.8 L Lymph % (Auto) 39.4 [place] % (Auto) 12.9 H Eos % (Auto) 4.6 Baso % (Auto) 1.1 H Absolute Neuts (auto) 2.3 Absolute Lymphs (auto) 2.14 Nucleated RBC % 0 PT 29.1 H INR 2.7 Sodium 141 Potassium 4.2 Chloride 106 Carbon Dioxide 24.9 Anion Gap 10 BUN 19 Creatinine 0.88 Est GFR (MDRD) Non-Af 102 BUN/Creatinine Ratio 21.9 H Glucose 93 Calcium 9.2 Urine Color Yellow Urine Clarity Sl. Cloudy Urine pH 6.0 Ur Specific [place] 1.020 Urine Protein 30 H Urine Glucose (UA) Normal Urine Ketones Negative Urine Occult Blood 250 H Urine Nitrite Negative Urine Bilirubin Negative Urine Urobilinogen 1 H Ur Leukocyte Esterase Negative Urine RBC > 100 SEEN Urine WBC 0 SEEN Ur Squamous Epith Cells 0-5 SEEN Urine Bacteria 0 SEEN Urine Mucus 0 SEEN Discharge Plan Triage Chief Complaint: General Illness ED Provider: Yoshi Segal Dx/Rx/DC Orders Clinical Impression: Hematuria, Anticoagulated on Coumadin, Contusion of forearm, left, Contusion of elbow Instructions: ED Contusion, Upper Extremity, ED Hematuria Prescriptions: No Action rosuvastatin 20 MG tablet 20 mg PO DAILY melatonin 10 mg Tablet 10 mg PO QHS warfarin [Jantoven] 10 mg tablet 10 mg PO SUTH warfarin [Jantoven] 5 mg tablet 12.5 mg PO MOTUWEFRSA metoprolol succinate 50 mg tablet extended release 24 hr 50 mg PO DAILY aspirin 81 mg capsule 81 mg PO DAILY dicyclomine 10 mg capsule 10 mg PO TID coenzyme Q10 [Co Q-10] 100 mg capsule 100 mg PO DAILY pantoprazole [Protonix] 40 mg tablet,delayed release (DR/EC) 40 mg PO DAILY lorazepam [Ativan] 0.5 mg tablet 0.5 mg PO BID PRN (Reason: anxiety) Primary Care Provider: Geronimo Thrasher Referrals: Geronimo Thrasher MD [Primary Care Provider] - As Needed Activity Restrictions/Additional Instructions: Your INR tonight was 2.7. It was noted that she had some blood in the urine tonight. If you develop abdominal pain or flank pain or your urine turns grossly bloody please return to emergency. Print Language: Romanian Disposition Disposition: Home, Self Care
--- OUTSIDE RECORDS SUMMARY | 2024-10-20 19:54 | XMS RPT_ITS | CCD ---
Author Organization [facility] Care Team Providers Care Dynamometer Tuner Name Role Phone IMCA Unavailable Unavailable IMCA Unavailable Unavailable IMCA Unavailable Unavailable IMCA Unavailable Unavailable Geronimo Thrasher Primary Care Provider Geronimo Thrasher Primary Care Provider Geronimo Thrasher Primary Care Provider Geronimo Thrasher MD Primary Care Provider Geronimo Thrasher MD Primary Care Provider Geornimo Thrasher MD Primary Care Provider Geronimo Thrasher Primary Care Provider Maribel HARRIS, Maralirio Unavailable [phone] Geronimo Thrasher MD Primary Care Provider Geronimo Thrasher Primary Care Provider Maribel HARRIS, Maralirio Unavailable Sangeeta Barnes Attending Provider Unavailable FriendDr. Card Attending Provider FriendDr. Card Other Provider GERONIMO THRASHER Primary Care Provider GERONIMO THRASHER Referring Provider Geronimo Thrasher MD Primary Care Provider GERONIMO THRASHER Primary Care Unavailable GERONIMO THRASHER Referring Unavailable ONESIMO FLORES Attending Unavailable GERONIMO THRASHER Referring Unavailable GERONIMO THRASHER Primary Care Unavailable ONESIMO FLORES Attending Unavailable Geronimo Thrasher MD Primary Care Provid er Maribel HARRIS, Janae Unavailable Lisbeth HARRIS, Irvin Primary Care Provider [phone] Anna Marie HARRIS, [place] Primary Care Provider [phone] Friend, Dr. Card Attending Provider Anna Marie HARRIS, [place] Primary Care Provider Friend, Dr. Card Referring Provider [phone] Friend, Dr. Card Other Provider ANNA MARIE, FIFTY SIX Primary Care Provider [phone] Maribel HARRIS, Janae Unavailable 13, Pharmacist Unavailable ANNA MARIE, GERONIMO Primary Care Unavailable ONESIMO FLORES Attending Unavailable ANNA MARIE, GERONIMO Primary Care Unavailable ONESIMO FLORES Attending Unavailable ANNA MARIE, GERONIMO Primary Care Unavailable ONESIMO FLORES Attending Unavailable ANNA MARIE, GERONIMO Primary Care Unavailable ONESIMO FLORES Attending Unavailable ONESIMO FLORES Attending Unavailable ANNA MARIE, GERONIMO Primary Care Unavailable ONESIMO FLORES Attending Unavailable ANNA MARIE, GERONIMO Primary Care Unavailable ONESIMO FLORES Attending Unavailable ANNA MARIE, GERONIMO Primary Care Unavailable ONESIMO FLORES Attending Unavailable ONESIMO FLORES Attending Unavailable ANNA MARIE, GERONIMO Primary Care Unavailable ONESIMO FLORES Attending Unavailable ANNA MARIE, GERONIMO Primary Care Unavailable ONESIMO FLORES Attending Unavailable ANNA MARIE, GERONIMO Primary Care Unavailable ANNA MARIE, GERONIMO Referring Unavailable ONESIMO FLORES Attending Unavailable ANNA MARIE, GERONIMO Primary Care Unavailable ONESIMO FLORES Attending Unavailable ANNA MARIE, GERONIMO Primary Care Unavailable ONESIMO FLORES Attending Unavailable YURIY LUCAS Attending Unavailable ANNA MARIE, GERONIMO Primary Care Unavailable ONESIMO FLORES Attending Unavailable ANNA MARIE, GERONIMO Primary Care Unavailable ONESIMO FLORES Attending Unavailable ANNA MARIE, GERONIMO Primary Care Unavailable ONESIMO FLORES Attending Unavailable ANNA MARIE, GERONIMO Primary Care Unavailable ONESIMO FLORES Attending Unavailable ONESIMO FLORES Attending Unavailable ANNA MARIE, GERONIMO Primary Care Unavailable ONESIMO FLORES Attending Unavailable GERONIMO THRASHER Primary Care Unavailable BROOKE SOLIS Attending Unavailable Lisbeth HARRIS, Saurav Lott Primary Care Provider Isiah DEOILING MACHINE OPERATOR.Dina GALVAN Unavailable LISBETH, IRVIN Primary Care Unavailable KALKA, GAYATHRI Referring Unavailable BOB, IRVIN Primary Care Unavailable KALKA, GAYATHRI Referring Unavailable KALKA, GAYATHRI Referring Unavailable BOB, IRVIN Primary Care Unavailable ANNA MARIE, GERONIMO Primary Care Provider Lena DAVID, Dr. Messer Emergency Provider Martino DO, Dr. Em Admit Provider Unavail able Martino DO, Dr. Em Other Provider Unavail able Kayla HARRIS, Dr. Lyndsey Prieto Attending Provider Juan Carlos HARRIS, Dr. Blankenship Other Provider Kayla HARRIS, Dr. Lyndsey Prieto Other Provider Dr. Yoshi Segal DO Emergency Provider CHAGO CID Primary Care Unavailable Manav Martino Unavailable Manav Martino Admitting Unavailable Lyndsey Garza Attending Unavailable Rhea Rangel Unavailable Lyndsey Garza Consulting Unavailable Yoshi Segal Attending Unavailable CHAGO CID Primary Care Unavailable CHAGO CID Primary Care Unavailable Manav Martino Admitting Unavailable Manav Martino Consulting Unavailable Lyndsey Garza Attending Unavailable Rhea Rangel Unavailable Abundio Tovar Attending Unavailable Manav Martino Attending Unavailable LISBETH, IRVIN Primary Care Unavailable THAMILARASAN, MARAN Referring Unavailable BOB, IRVIN Primary Care Unavailable BOB, IRVIN Primary Care Unavailable BOB, IRVIN Primary Care Unavailable THAKHADRAAN, JANAE Attending Unavailable LISBETH, IRVIN Primary Care Unavailable THAMILARASAN, MARAN Referring Unavailable BOB, IRVIN Primary Care Unavailable THAMILARASAN, MARAN Referring Unavailable BOB, IRVIN Primary Care Unavailable RAMÓN SILVA Attending Unavailabl e BOB, IRVIN Primary Care Unavailable GAYATHRI SKY Attending Unavailable BOB, IRVIN Primary Care Unavailable GRACE RHOADES Attending Unavailable GRACE RHOADES Admitting Unavailable BOB, IRVIN Primary Care Unavailable THAMILARASAN, MARAN Referring Unavailable BOB, IRVIN Primary Care Unavailable THAMILARASAN, MARAN Referring Unavailable BOB, IRVIN Primary Care Unavailable BOB, IRVIN Primary Care Unavailable DINA JOYCE Attending Unavailable BOB, IRVIN Primary Care Unavailable BIMAGDY JOHNSON Referring Unavailable GOLJANE WARD Attending Unavailable TESTRAKE, GEORGIE Referring Unavailable BOB, IRVIN Primary Care Unavailable GOLIAS, JANE Attending Unavailable TESTRAKE, GEORGIE Referring Unavailable BOB, IRVIN Primary Care Unavailable BOB, IRVIN Primary Care Unavailable JASMIN GREENE Attending Unavailable BOB, IRVIN Primary Care Unavailable BIERUT, MAGDY Attending Unavailable RAMÓN SILVA Attending Unavailabl e BOB, IRVIN Primary Care Unavailable BOB, IRVIN Primary Care Unavailable BIERUTMAGDY Attending Unavailable BOB, IRVIN Primary Care Unavailable GAYATHRI SKY Attending Unavailable BOB, IRVIN Primary Care Unavailable GRACE RHOADES Attending Unavailable THAMILALESLIAN, JANAE Referring Unavailable Allergies Allergy Classification Reported Allergen(s) Allergy Type Date of Onset Reaction(s) Facility Opioid Agonists (8 sources) Codeine Drug Allergy 4 Other (See Comments), Mental Status Change [facility] Sulfonamides (antibiotic) (2 sources) Sulfonamides (Antibiotic) Drug Allergy 3 Myalgia [facility] (20 sources) codeine; Translations: [CODEINE] Drug Allergy 4 Other (See Comments), Mental Status Change, Other [facility] (20 sources) Sulfonamides (Antibiotic); Translations: [SULFA (SULFONAMIDE ANTIBIOTICS)] Drug Intolerance 3 Myalgia [facility] (20 sources) Wheat gluten extract; Translations: [GLUTEN] Drug Allergy 5 GI Upset [facility] (1 source) Sulfonamides (Antibiotic) Allergy to substance 5 PT UNSURE OF REACTION [facility] (1 source) Sulfonamides (Antibiotic) Drug allergy (disorder) 5 [facility] Rep[facility] Medications Current Medications Medication Drug Class(es) Dates Sig (Normalized) Sig (Original) acetaminophen 500 mg / diphenhydrAMINE hydrochloride 25 mg oral tablet (18 sources) Histamine-1 Receptor Antagonist diphenhydrAMINE- acetaminophen (Tylenol PM) 25-500 MG per tablet Take by mouth. 0 Active acetaminophen 325 mg / HYDROcodone bitartrate 5 mg oral tablet (1 source) Opioid Agonist Start: 10-04-2023 take 1 tablet by mouth every six hours as needed for pain Hydrocodone-Acet aminophen 5-325 mg tablet Active 1 {tbl} PO EVERY 6 HOURS NEEDED as needed for Pain 10 October 04, 2023 amoxicillin 875 mg / clavulanate 125 mg oral tablet (3 sources) Penicillin-class Antibacterial Start: 06-07-2024 Amoxicillin-Pot Clavulanate 875-125 mg tablet Active 1 {tbl} PO TWICE A DAY June 07, 2024 12:00am Start: 03-13-2020 End: 11-13-2021 take 1 tablet by mouth twice daily amoxicillin-clavulanic acid (AUGMENTIN) 875-125 mg per tablet Take 1 tablet by mouth twice daily. 6 tablet 0 03/13/2020 11/13/2021 Discontinued Comment on above: Take 1 tablet by estefanía th twice daily. aspirin 81 mg oral tablet (20 sources) Platelet Aggregation Inhibitor, Nonsteroidal Anti-inflammatory Drug Start: 06-04-2024 take 1 capsule by mouth once daily Aspirin 81 mg capsule Active 81 mg PO DAILY June 04, 2024 12:00am Start: 06-19-2022 take 1 tablet by estefanía th once daily aspirin 81 mg chewable tablet Take 1 tablet by mouth once daily. 06/19/2022 Active Start: 09-16-2021 End: 06-04-2024 Aspirin 325 mg tablet Discon tinued 81 mg PO DAILY@799September 16, 2021 8:23am June 04, 2024 8:04pm Start: 09-16-2021 take 81 mg by mouth once daily Aspirin Active 81 MG PO DAILY@799September 16, 2021 8:23am Start: 03-29-2017 End: 09-16-2021 take 1 tablet by mouth once daily Aspirin 325 MG tablet Discontinued 325 mg PO DAILY@0800 March 29, 2017 12:00am September 16, 2021 8:26am Start: 11-28-2013 End: 06-19-2022 take 2 tablets by mouth once daily aspirin 81 mg chewable tablet Take 2 tablets by mouth once daily. 0 11/28/2013 06/19/2022 Discontinued take 1 capsule by mo [facility] in the morning Aspirin 81 MG capsule Take 81 mg by mouth in the morning. 0 Active Comment on above: Take 2 tablets by mo ut once daily. Take [facility]. cefdinir 300 mg oral capsule (1 source) Cephalosporin Antibacterial take 1 capsule by mouth twice daily cefdinir (OMNICEF) 300 MG capsule Take 300 mg by mouth 2 times daily 0 Active cephalexin 500 mg oral capsule (9 sources) Cephalosporin Antibacterial Start: End: take 1 capsule by mouth three times daily cephALEXin (KEFLEX) 500 mg capsule Indications: Urinary frequency Take 1 capsule by mouth three times a day for 7 days. 21 capsule 0 10/01/2023 10/08/2023 Active Start: 04-20-2023 End: 04-27-2023 take 1 capsule by mouth twice daily cephALEXin (KEFLEX) 500 mg capsule Take 1 capsule by mouth two times a day for 7 days. 14 capsule 0 04/20/2023 04/27/2023 Active Start: 12-01-2022 End: 12-08-2022 take 1 capsule by mouth three times daily cephALEXin (KEFLEX) 500 mg capsule Take 1 capsule by mouth three times daily for 7 days. 21 capsule 0 12/01/2022 12/08/2022 Active Start: 11-13-2021 End: 11-18-2021 take 1 capsule by mouth four times daily cephALEXin (KEFLEX) 500 mg capsule Take 1 capsule by mouth four times daily for 5 days. 20 capsule 0 11/13/2021 11/18/2021 Active Comment on above: Take 1 capsule by mo [facility] four times daily for 5 days. Take 1 capsule by mo [facility] three times daily for 7 days. Take 1 capsule by mo [facility] two times a day for 7 days. chlorhexidine gluconate 1.2 mg/ml mouthwash (13 sources) Start: 07-13-2024 Chlorhexidine Gluconate (PERIDEX) 0.12 % solution 07/13/2024 Active CPAP/BIPAP/OTHER (20 sources) Start: 10-11-2024 End: 02-26-2052 CPAP/BIPAP/OTHER Type .CPAPSettings into a note to see current settings/supplies/DME information. 1 each 10/11/2024 02/26/2052 Active Start: 08-03-2023 End: 12-18-2050 CPAP/BIPAP/OTHER Indications : Central sleep apnea , DOREEN (obstructive sleep apnea) , Central sleep apnea treated with adaptive servo-ventilation (ASV) device Type .CPAPSettings into a note to see current settings/supplies/DME information. 1 Each 08/03/2023 12/18/2050 Active Start: 08-03-2023 End: 12-18-2050 CPAP/BIPAP/OTHER Indications : Central sleep apnea , DOREEN (obstructive sleep apnea) , Central sleep apnea treated with adaptive servo-ventilation (ASV) device Type .CPAPSettings into a note to see current settings/supplies/DME information. 1 Each 0 08/03/2023 12/18/2050 Active Start: 06-24-2022 End: 11-08-2049 CPAP/BIPAP/OTHER Indications : DOREEN (obstructive sleep apnea) , Central sleep apnea , Central sleep apnea treated with adaptive servo-ventilation (ASV) device Continue ASV with current settings of EPAP 5 cm H2O with PS 4-12 cmH2O. Lifetime supplies for ASV, including patient preferred mask, head gear, heated tubing, humidity, filters, chin strap. Dx: Obstructive Sleep Apnea G47.33 DME: [facility] 1 Each 06/24/2022 11/08/2049 Active Start: 06-24-2022 End: 11-08-2049 CPAP/BIPAP/OTHER Indications : DOREEN (obstructive sleep apnea) , Central sleep apnea , Central sleep apnea treated with adaptive servo-ventilation (ASV) device Continue ASV with current settings of EPAP 5 cm H2O with PS 4-12 cmH2O. Lifetime supplies for ASV, including patient preferred mask, head gear, heated tubing, humidity, filters, chin strap. Dx: Obstructive Sleep Apnea G47.33 DME: [facility] 1 Each 0 06/24/2022 11/08/2049 Active Start: 09-27-2020 End: 06-19-2022 CPAP/BIPAP/OTHER Type .CPAPS ettings into a note to see current settings/supplies/DME information. 1 Each 0 09/27/2020 06/19/2022 Discontinued Start: 09-27-2020 End: 02-12-2048 CPAP/BIPAP/OTHER Type .CPAPS ettings into a note to see current settings/supplies/DME information. 1 Each 0 09/27/2020 02/12/2048 Active Comment on above: Type .CPAPSettings i nto a note to see current settings/supplies/DME information. Continue ASV with cu rrent settings of EPAP 5 cm H2O with PS 4-12 cmH2O. Lifetime supplies for ASV, including patient preferred mask, head gear, heated tubing, humidity, filters, chin strap. Dx: Obstructive Sleep Apnea G47.33 DME: [facility] Dexlansoprazole (Dexilant) 60 mg capsule,biphase delayed releas (1 source) Start : 09-07 take 1 capsule by mouth once daily Dexlansoprazole (Dexilant) 60 mg capsule,biphase delayed releas Active 60 MG PO DAILY September 07, 2022 12:00am dicyclomine hydrochloride 10 mg oral capsule (20 sources) Anticholinergic Start : 04-17 take 1 capsule by mouth three times daily as needed for pain dicyclomine (BENTYL) 10 mg capsule Indications: Generalized abdominal pain Take 1 capsule by mouth three times a day as needed (for abdominal pain). 30 capsule 2 04/17/2024 Active Start: 10-19-2022 take 1 tablet by estefanía th three times daily as needed for pain dicyclomine (BENTYL) 20 mg tablet Indications: Generalized postprandial abdominal pain Take 1 tablet by mouth three times daily as needed (for abdominal pain). 60 tablet 1 10/19/2022 Active Comment on above: Take 1 tablet by estefanía th three times daily as needed (for abdominal pain). Diphenhydramine-APA P, sleep, (TYLENOL PM EXTRA STRENGTH PO) (20 sources) Diphenhydramine- AP AP, sleep, (TYLENOL PM EXTRA STRENGTH PO) Take by mouth as needed 0 Active doxylamine succinate 25 mg oral tablet (9 sources) take 1 tablet by mouth once daily as needed doxylamine (Unisom) 25 MG tablet Take 25 mg by mouth Nightly as needed. 0 Active 0.8 ml enoxaparin sodium 150 mg/ml prefilled syringe (20 sources) Low Molecular Weight Heparin Start: inject 0.7 mL by subcutaneous injection every twelve hours enoxaparin (LOVENOX) 120 mg/0.8 mL injection Inject 0.7mL (105mg) under the skin every 12 hours or as directed by the [facility] 20 Each 1 07/13/2024 Active Start: 10-19-2022 inject 0.8 mL by sub cutaneous injection twice daily enoxaparin (Lovenox) 120 MG/0.8ML solution prefilled syringe Inject 0.8 mL (120 mg) under the skin 2 times daily. Take as directed by [facility] anticoagulation clinic. 60 each 0 10/19/2022 Active Start: 12-12-2021 End: 10-19-2022 enoxaparin (LOVENOX) 120 mg/ 0.8 mL injection Inject 120 mg subcutaneously. 10/19/2022 Active Start: 02-07-2021 End: 10-16-2021 enoxaparin (LOVENOX) 120 MG/ 0.8ML injection Indications: Mitral valve replaced Inject 0.8 mLs into the skin every 12 hours As directed by [facility] Anticoagulation Clinic for procedure 20 each 1 02/07/2021 10/16/2021 Discontinued (Therapy completed) Start: 02-19-2020 End: 12-11-2022 Enoxaparin 120 MG/0.8 ML syr kaylee Discontinued 110 mg SC Q12@0600,1800 February 18, 2020 11:00pm December 11, 2022 7:05am Start: 01-15-2020 End: 10-31-2020 enoxaparin (LOVENOX) 120 MG/ 0.8ML injection Inject 0.8 mLs into the skin every 12 hours Or as directed by [facility] Anticoagulation Clinic 10 Syringe 3 01/15/2020 10/31/2020 Discontinued (Therapy completed) Comment on above: Inject 120 mg subcut aneously. LORazepam 0.5 mg oral tablet (14 sources) Benzodiazepine Start: 07-19-2024 LORazepam (ATIVAN) 0.5 mg 07/19/2024 Active Start: 06-05-2024 take 1 tablet by estefanía th twice daily as needed for anxiety Lorazepam (Ativan) 0.5 mg tablet Active 0.5 mg PO TWICE A DAY as needed for anxiety June 05, 2024 12:00am melatonin 10 mg oral tablet (20 sources) Start: 01-01-2022 take 1 tablet by mouth at bedtime Melatonin 10 mg Tablet Active 10 mg PO AT BEDTIME December 31, 2021 11:00pm Melatonin 5 mg t ab Take by mouth as needed. Active Comment on above: Take by mouth as nee ded. 24 hr metoprolol succinate 50 mg extended release oral tablet (20 sources) beta-Adrenergic Elizabeth Start: 08-25-2021 End: 09-19-2024 take 1 tablet by mouth once daily metoprolol succinate ER (TOPROL XL) 50 mg 24 hr tablet Take 1 tablet by mouth once daily. 135 tablet 3 09/19/2024 Active Start: 08-25-2021 take 1 tablet by estefanía th every twenty-four hours in the morning metoprolol succinate XL (Toprol-XL) 50 MG 24 hr tablet Take 50 mg by mouth in the morning. 0 08/25/2021 Active Start: 03-29-2017 End: 06-04-2024 take 3 tablets by mouth once daily Metoprolol Tartrate 25 MG tablet Discontinued 75 mg PO DAILY March 29, 2017 12:00am June 04, 2024 8:02pm Start: 03-29-2017 take 75 mg by mouth once daily Metoprolol Tartrate Active 75 MG PO DAILY March 29, 2017 12:00am Comment on above: Take 1.5 tablets by mouth once daily. nitrofurantoin, macrocrystals 25 mg / nitrofurantoin, monohydrate 75 mg oral capsule (2 sources) Nitrofuran Antibacterial Start: End: take 1 capsule by mouth twice daily nitrofurantoin monohydrate and macrocrystal (MACROBID) 100 mg capsule Indications: Urinary frequency Take 1 capsule by mouth two times a day for 7 days. 14 capsule 0 09/20/2023 09/27/2023 Active pantoprazole 40 mg delayed release oral tablet (20 sources) Proton Pump Inhibitor Start: End: take 1 tablet by mouth once daily pantoprazole DR (PROTONIX) 40 mg tablet Indications: Gastroesophageal reflux disease with esophagitis without hemorrhage Take 1 tablet by mouth once daily. On empty stomach at least 30 minutes before eating. 90 tablet 3 04/17/2024 Active Start: 11-18-2022 End: 06-29-2023 take 1 tablet by mouth once daily pantoprazole DR (PROTONIX) 40 mg tablet Indications: Gastroesophageal reflux disease with esophagitis without hemorrhage Take 1 tablet by mouth once daily. On empty stomach at least 30 minutes before eating. 90 tablet 2 06/29/2023 Active Start: 11-18-2022 End: 06-04-2024 Pantoprazole (Protonix) 40 m g tablet,delayed release (DR/EC) Discontinued 40 mg PO .COMPLEX 60 November 17, 2022 11:00pm June 04, 2024 8:07pm take 40 mg orally two times a day for eight weeks then once daily Start: 11-28-2013 End: 06-29-2023 take 1 tablet by mouth once daily pantoprazole 20 mg tablet Take 1 tablet by mouth once daily for 14 days. 14 tablet 0 11/28/2013 06/29/2023 Discontinued (Course of therapy completed) Comment on above: Take 1 tablet by estefanía th once daily. Take 1 tablet by estefanía th once daily. On empty stomach at least 30 minutes before eating. Take 1 tablet by estefanía th once daily for 14 days. perflutren lipid microspheres 1.3 mL in NaCl (PF) 0.9% 10 mL injection (DEFINITY) (20 sources) Start: 01-07-2023 End: 04-07-2024 perflutren lipid microspheres 1.3 mL in NaCl (PF) 0.9% 10 mL injection (DEFINITY) Start: 12-18-2021 End: 03-19-2023 perflutren lipid microsphere s 1.3 mL in NaCl (PF) 0.9% 10 mL injection (DEFINITY) rosuvastatin calcium 20 mg oral tablet (20 sources) HMG-CoA Reductase Inhibitor Start: 02-18-2020 End: 09-10-2023 take 1 tablet by mouth once daily rosuvastatin (CRESTOR) 20 mg tablet Take 1 tablet by mouth once daily. 90 tablet 09/10/2023 Active take 1 tablet by mouth in the mo [facility] rosuvastatin (Crestor) 10 MG tablet Take 10 mg by mouth in the morning. 0 Active Comment on above: Take 20 mg by mouth once daily. 125 ml sodium chloride 9 mg/ml prefilled syringe (20 sources) Start: 12-18-2021 End: 04-07-2024 sodium chloride 0.9 % (flush) 10 mL (BD POSIFLUSH) End: 07-20-2022 sodium chloride (Sykeston) 0.65 % nasal spray Administer 1 spray into affected nostril(s). 0 07/20/2022 Discontinued ubidecarenone 100 mg oral capsule (20 sources) Start: 05-04-2023 End: 04-14-2024 take 1 capsule by mouth once daily coenzyme Q10 (CO Q-10) 100 mg cap capsule Indications: S/P MVR (mitral valve replacement) Take 1 capsule by mouth once daily. 04/14/2024 Active Comment on above: Take 1 capsule by [facility] once daily. warfarin sodium 10 mg oral tablet (20 sources) Vitamin K Antagonist Start: 06-04-2024 Warfarin (Jantoven) 10 mg tablet Active 10 mg PO SUTH June 04, 2024 12:00am Start: 06-04-2024 Warfarin (Jant oven) 5 mg tablet Active 12.5 mg PO MOTUWEFRSA June 04, 2024 12:00am Start: 07-02-2023 End: 02-17-2024 warfarin (COUMADIN) 10 mg ta blet Take 15 mg every Mon, Wed; 12.5 mg all other days or as directed by anticoagulation clinic. (Takes with 5 mg tablets) 90 tablet 2 02/18/2024 Active Start: 07-02-2023 End: 02-17-2024 warfarin (COUMADIN) 5 mg tab let Take 15 mg every Mon, Wed; 12.5 mg all other days or as directed by anticoagulation clinic. (Takes with 10 mg tablets) 90 tablet 1 02/18/2024 Active Start: 06-29-2023 warfarin (COUM KAMRAN) 10 mg tablet Take 15 mg every Mon, Wed; 12.5 mg all other days or as directed by anticoagulation clinic. (Takes with 5 mg tablets) 90 tablet 2 06/29/2023 Active Start: 06-29-2023 warfarin (COUM KAMRAN) 5 mg tablet Take 15 mg every Mon, Wed; 12.5 mg all other days or as directed by anticoagulation clinic. (Takes with 10 mg tablets) 90 tablet 1 06/29/2023 Active Start: 10-19-2022 warfarin (Coum kamran) 10 MG tablet Take as directed by [facility] Anticoagulation Clinic (90 tablets= 90 day supply). Patient uses both 10mg and 5mg tablets. 90 tablet 1 10/19/2022 Active Start: 10-19-2022 warfarin (Coum kamran) 5 MG tablet Take as directed by [facility] Anticoagulation Clinic (240 tablets= 90 day supply). 240 tablet 1 10/19/2022 Active Start: 04-28-2022 warfarin (Coum kamran) 5 MG tablet Take as directed by [facility] Anticoagulation Clinic (225 tablets= 90 day supply). Current dose: 12.5 mg daily 225 tablet 1 04/28/2022 Active Start: 05-06-2021 End: 10-16-2021 warfarin (COUMADIN) 5 MG tab let Indications: Mitral valve replaced TAKE DIRECTED BY [facility] (220 tablets = 90 day supply) 220 tablet 1 05/06/2021 10/16/2021 Discontinued Start: 05-14-2020 End: 10-31-2020 warfarin (COUMADIN) 5 MG tab let Indications: Mitral valve replaced Take as directed by [facility] Anticoagulation Clinic. (220 tabs = 90 day supply) 220 tablet 1 05/14/2020 10/31/2020 Discontinued (REORDER) Start: 11-30-2019 warfarin (COUM KAMRAN) 5 MG tablet Indications: Mitral valve replaced Take as directed by [facility] Anticoagulation Clinic. (200 tabs = 90 day supply) 200 tablet 1 11/30/2019 Active Start: 08-21-2019 warfarin (COUM KAMRAN) 5 MG tablet Indications: Mitral valve replaced Take as directed by [facility] Anticoagulation Clinic. (200 tabs = 90 day supply) 200 tablet 1 08/21/2019 Active Start: 06-21-2018 End: 12-16-2018 warfarin (JANTOVEN) 5 MG tab let Indications: Mitral valve replaced Take as directed by [facility] Anticoagulation Clinic. (210 tabs = 90 day supply) 210 tablet 1 06/21/2018 12/16/2018 Discontinued Start: 03-29-2017 End: 06-04-2024 Warfarin (Maytoven) 1 MG tab let Discontinued 12.5 mg PO DAILY March 29, 2017 12:00am June 04, 2024 8:02pm 12.5mg TU, TH, SA, ELI 15 mg MO, WE, FR Start: 03-29-2017 Warfarin (Mayt oven) 1 MG tablet Active 12.5 MG PO DAILY March 29, 2017 1:00am 12.5mg EVERY OTHER DAY 15 mg THURS & SAT Comment on above: Take 15 mg every Mon , Wed; 12.5 mg all other days or as directed by anticoagulation clinic. (Takes with 5 mg tablets) Take 15 mg every Mon , Wed; 12.5 mg all other days or as directed by anticoagulation clinic. (Takes with 10 mg tablets) Completed/Discontinued Medications Medication Drug Class(es) Dates Sig (Normalized) Sig (Original) acetaminophen 325 mg oral tablet (20 sources) Start: 02-19-2020 End: 06-04-2024 Acetaminophen 325 MG tablet Discontinued 650 mg PO EVERY 6 HOURS NEEDED as needed for Pain Score 1-10/Temp > 100.7 F February 18, 2020 11:00pm June 04, 2024 8:04pm Start: 02-19-2020 take 650 mg by mouth every six hours as needed Acetaminophen Active 650 MG PO EVERY 6 HOURS NEEDED February 18, 2020 11:00pm ACETAMINOPHEN (T YLENOL EXTRA STRENGTH ORAL) Take by mouth as needed. Active ACETAMINOPHEN (T YLENOL EXTRA STRENGTH ORAL) Take by mouth as needed. 0 Active Comment on above: Take by mouth as nee ded. allopurinol 100 mg oral tablet (10 sources) Xanthine Oxidase Inhibitor Start: 0 End: 2 take 1 tablet by mouth once daily Allopurinol 100 MG tablet Discontinued 100 mg PO DAILY February 17, 2020 11:00pm September 16, 2021 8:23am ALLOPURINOL PO T juliette by mouth daily 0 Active BIPAP (20 sources) Start: 05-11-2019 End: 04-14-2024 BIPAP Please service machine , humidifier causing issues. Lifetime supplies G47.33 DOREEN 1 Device 05/11/2019 04/14/2024 Discontinued (Course of therapy completed) Start: 05-11-2019 BIPAP Please s ervice machine, humidifier causing issues. Lifetime supplies G47.33 DOREEN 1 Device 05/11/2019 Active Start: 05-11-2019 BIPAP Please s ervice machine, humidifier causing issues. Lifetime supplies G47.33 DOREEN 1 Device 0 05/11/2019 Active Start: 02-07-2019 End: 05-19-2024 BIPAP ASV EPAP min 5 cm H20, PS 4-12 cm H20. Mask fitting to consider Dream wear FFM. Provide lifetime supplies including tubing, heated humidity, filters. Dx: G47.33 & G47.37. 1 Device 02/07/2019 05/19/2024 Discontinued (Discontinued by another Health Care Provider) Start: 02-07-2019 End: 05-19-2024 BIPAP Fax 30 day download re port to [phone] to assess usage and residual AHI after receipt of replacement ASV. 1 Device 02/07/2019 05/19/2024 Discontinued (Discontinued by another Health Care Provider) Start: 02-07-2019 BIPAP ASV EPAP min 5 cm H20, PS 4-12 cm H20. Mask fitting to consider Dream wear FFM. Provide lifetime supplies including tubing, heated humidity, filters. Dx: G47.33 & G47.37. 1 Device 02/07/2019 Active Start: 02-07-2019 BIPAP Fax 30 d ay download report to [phone] to assess usage and residual AHI after receipt of replacement ASV. 1 Device 02/07/2019 Active Start: 02-07-2019 BIPAP ASV EPAP min 5 cm H20, PS 4-12 cm H20. Mask fitting to consider Dream wear FFM. Provide lifetime supplies including tubing, heated humidity, filters. Dx: G47.33 & G47.37. 1 Device 0 02/07/2019 Active Start: 02-07-2019 BIPAP Fax 30 d ay download report to [phone] to assess usage and residual AHI after receipt of replacement ASV. 1 Device 0 02/07/2019 Active Comment on above: ASV EPAP min 5 cm H2 0, PS 4-12 cm H20. Mask fitting to consider Dream wear FFM. Provide lifetime supplies including tubing, heated humidity, filters. Dx: G47.33 & G47.37. Fax 30 day download report to [phone] to assess usage and residual AHI after receipt of replacement ASV. Please service kamilla ne, humidifier causing issues. Lifetime supplies G47.33 DOREEN cefuroxime 500 mg oral tablet (11 sources) Cephalosporin Antibacterial Start: 04-20-20 End: 06-04-19 take 1 tablet by mouth twice daily Cefuroxime Axetil 500 mg tablet Discontinued 500 mg PO TWICE A DAY 14 April 20, 2023 12:00am June 04, 2024 8:06pm Comment on above: Take by mouth. cholestyramine resin 4000 mg powder for oral suspension (20 sources) Bile Acid Sequestrant Start: 12-17-19 End: 06-04-19 25 Cholestyramine (With Sugar) 4 gram powder in packet Discontinued 4 g PO DAILY 60 December 15, 2022 11:00pm June 04, 2024 8:06pm administer w/meal; avoid other meds within 1hr before Start: 12-11-2022 End: 12-16-2022 take 1 dose by mouth once daily Cholestyramine (With Sugar) (Questran) 4 gram powder Discontinued 1 g PO DAILY 348.6 30 December 10, 2022 11:00pm December 16, 2022 3:00pm administer w/meal; avoid other meds within 1hr before or 4-6hr after dose Start: 12-11-2022 End: 12-16-2022 take 1 dose by mouth once daily Cholestyramine (With Sugar) (Questran) 4 gram powder Discontinued 1 GM PO DAILY 348.6 December 10, 2022 11:00pm December 16, 2022 3:00pm administer w/meal; avoid other meds within 1hr before or 4-6hr after dose Comment on above: Take 1 Packet by estefanía th every evening. Per Dr. Kezia Madison. ciprofloxacin 500 mg oral tablet (1 source) Quinolone Antimicrobial Start: 10-04-19 End: 06-04-19 take 1 tablet by mouth twice daily Ciprofloxacin Hcl 500 mg tablet Discontinued 500 mg PO TWICE A DAY 56 October 03, 2023 11:00pm June 04, 2024 8:06pm CPAP (5 sources) End: 04-10-20 CPAP Nightly 0 04/10/2022 Discontinued CPAP Nightly 0 A ctive Comment on above: Nightly dexlansoprazole 60 mg delayed release oral capsule (4 sources) Proton Pump Inhibitor Start: 09-07-2022 Dexlansoprazole 60 mg CpDM enteric contrast (will be provided with radiology test) (3 sources) Start: 08-12-2022 End: 08-13-2022 enteric contrast (will be provided with radiology test) Indications: Periumbilical pain For CT ABD/PEL W IVCON Routine order Administer, As Directed One Time Only, via Oral, Rectal, both Oral and Rectal, Enteric Tube, Stoma or Indwelling Catheter, Enteric Contrast as designated per enteric contrast guidelines 1 Each 0 08/12/2022 08/13/2022 Start: 08-12-2022 End: 08-13-2022 enteric contrast (will be pr ovided with radiology test) Indications: Periumbilical pain For CT ABD/PEL W IVCON Routine order Administer, As Directed One Time Only, via Oral, Rectal, both Oral and Rectal, Enteric Tube, Stoma or Indwelling Catheter, Enteric Contrast as designated per enteric contrast guidelines 1 Each 0 08/12/2022 08/13/2022 Active Comment on above: For CT ABD/PEL W IVC ON Routine order Administer, As Directed One Time Only, via Oral, Rectal, both Oral and Rectal, Enteric Tube, Stoma or Indwelling Catheter, Enteric Contrast as designated per enteric contrast guidelines hydrocortisone 25 mg/ml topical cream (3 sources) Corticosteroid Start: 09-13-2023 End: 09-20-2023 hydrocortisone (ANUSOL-HC) 2.5 % rectal cream Indications: External hemorrhoid by RECTAL route two times a day for 7 days. 28 g 0 09/13/2023 09/20/2023 iv contrast (will be provided with radiology test) (3 sources) Start: 08-12-2022 End: 08-13-2022 iv contrast (will be provided with radiology test) Indications: Periumbilical pain CT ABD/PEL -Inject, intravenously, once for 1 dose.No IV access, insert saline lock prior to the beginning of sedation, infusion, injection of imaging exam. Discontinue saline lock post exam. If Pt. has a central line or IVAD, may access for administration according to line specific nursing protocol. Once exam is complete flush line and de-access according to line specific nursing protocol in the CT contrast administration guidelines link. 1 Each 0 08/12/2022 08/13/2022 Start: 08-12-2022 End: 08-13-2022 iv contrast (will be provide d with radiology test) Indications: Periumbilical pain CT ABD/PEL -Inject, intravenously, once for 1 dose.No IV access, insert saline lock prior to the beginning of sedation, infusion, injection of imaging exam. Discontinue saline lock post exam. If Pt. has a central line or IVAD, may access for administration according to line specific nursing protocol. Once exam is complete flush line and de-access according to line specific nursing protocol in the CT contrast administration guidelines link. 1 Each 0 08/12/2022 08/13/2022 Active Comment on above: CT ABD/PEL -Inject, intravenously, once for 1 dose.No IV access, insert saline lock prior to the beginning of sedation, infusion, injection of imaging exam. Discontinue saline lock post exam. If Pt. has a central line or IVAD, may access for administration according to line specific nursing protocol. Once exam is complete flush line and de-access according to line specific nursing protocol in the CT contrast administration guidelines link. mupirocin 0.02 mg/mg topical ointment (17 sources) RNA Synthetase Inhibitor Antibacterial Start: 10-07-2023 End: 10-17-2023 mupirocin (BACTROBAN) 2 % ointment Indications: Bee sting, accidental or unintentional, initial encounter Apply to affected area two times a day for 10 days. 30 g 0 10/07/2023 10/17/2023 Start: 09-20-2023 End: 09-30-2023 mupirocin (BACTROBAN) 2 % oi ntment Indications: Injury of ear, initial encounter Apply to affected area three times a day for 10 days. 22 g 0 09/20/2023 09/30/2023 Active Start: 12-30-2022 End: 01-09-2023 mupirocin (BACTROBAN) 2 % oi ntment Indications: Rash and nonspecific skin eruption Apply to affected area twice daily for 10 days. 15 g 0 12/30/2022 01/09/2023 Active Start: 07-11-2018 End: 09-08-2018 mupirocin (BACTROBAN NASAL) 2 % nasal ointment Take by Nasal route 2 times daily. 1 Tube 3 07/11/2018 09/08/2018 Discontinued (LIST CLEANUP) Comment on above: Apply to affected ar ea twice daily for 10 days. omeprazole 40 mg delayed release oral capsule (5 sources) Proton Pump Inhibitor Start: take 1 capsule by mouth once daily omeprazole (PRILOSEC) 40 mg capsule Take 1 capsule by mouth once daily. 30 capsule 0 08/26/2022 Active Comment on above: Take 1 capsule by mo [facility] once daily. sulfamethoxazole 800 mg / trimethoprim 160 mg oral tablet (1 source) Dihydrofolate Reductase Inhibitor Antibacterial, Sulfonamide Antimicrobial Start: End: take 1 tablet by mouth twice daily sulfamethoxazole-tr imethoprim (BACTRIM DS) 800-160 mg per tablet Take 1 tablet by mouth two times a day for 7 days. 14 tablet 0 04/19/2023 04/20/2023 Discontinued (Changing Therapy/Dosage Form) Comment on above: Take 1 tablet by estefanía two times a day for 7 days. tamsulosin hydrochloride 0.4 mg oral capsule (6 sources) alpha-Adrenergic Elizabeth Start: 024 End: take 1 capsule by mouth once daily at bedtime tamsulosin (FLOMAX) 0.4 mg Take 1 capsule by mouth daily at bedtime. 90 capsule 3 10/11/2023 10/25/2023 Discontinued ursodiol 300 mg oral capsule (11 sources) Bile Acid Start: ursodiol (ACTIGALL) 300 mg capsule ursodiol (Actiga ll) 250 MG tablet Take by mouth. 0 Active warfarin 7.5 mg tab 7.5 mg, warfarin 5 mg tab 5 mg (20 sources) End: 06-29-2023 take 1 tablet by mouth once daily, then take 1 tablet by mouth once warfarin 7.5 mg tab 7.5 mg, warfarin 5 mg tab 5 mg Take 12.5 mg by mouth daily as directed. 12.5 mg for 7 days week 0 06/29/2023 Discontinued take 1 tablet by estefanía once daily, then take 1 tablet by mouth once warfarin 7.5 mg tab 7.5 mg, warfarin 5 m g tab 5 mg Take 12.5 mg by mouth daily as directed. 12.5 mg for 7 days week 0 Active take 1 tablet by estefanía th once daily, then take 1 tablet by mouth once warfarin 7.5 mg tab 7.5 mg, warfarin 5 m g tab 5 mg Take 12.5 mg by mouth daily as directed. 12.5 mg for 6 days week 15 mg 1 day and subject to change 0 Active Comment on above: Take 12.5 mg by mout h daily as directed. 12.5 mg for 6 days week 15 mg 1 day and subject to change Take 12.5 mg by mout h daily as directed. 12.5 mg for 7 days week Problems Active Problems Problem Classification Problem Date Documented Da te Episodic/Chronic Anxiety disorders (7 sources) Obsessive-compulsiv e disorder; Translations: [Obsessive-compulsi ve disorder, unspecified] Onset: 11-15-2013 04-28-2021 Chronic Biliary tract disease (15 sources) Gallstone; Translations: [Calculus of gallbladder without cholecystitis without obstruction] Onset: 05-24-2024 Episodic Calculus of urinary tract (3 sources) Kidney stone; Translations: [Calculus of kidney] 11-23-2022 Episodic Coagulation and hemorrhagic disorders (1 source) Blood coagulation disorder; Translations: [Hemorrhagic disorder due to extrinsic circulating anticoagulants] 09-29-2023 Chronic Conduction disorders (20 sources) Left bundle branch block; Translations: [Left bundle-branch block, unspecified] Onset: 11-13-2013 04-28-2021 Chronic Diseases of white blood cells (2 sources) Leukocytosis; Translations: [Elevated white blood cell count, unspecified] 04-20-2023 Chronic Disorders of lipid metabolism (5 sources) Hyperlipidemia; Translations: [Hyperlipidemia, unspecified] 02-18-2020 Chronic Esophageal disorders (20 sources) Allen's esophagus; Translations: [Allen's esophagus without dysplasia] Onset: 12-22-2022 12-22-2022 Chronic Essential hypertension (20 sources) Hypertensive disorder; Translations: [Essential (primary) hypertension] Onset: 11-16-2013 04-28-2021 Chronic Gout and other crystal arthropathies (20 sources) Gout; Translations: [Gout, unspecified] Onset: 12-22-2022 12-22-2022 Chronic Heart valve disorders (20 sources) History of mitral valve replacement; Translations: [Presence of prosthetic heart valve] Onset: 11-01-2013 Resolved: 11-16-2013 01-03-2015 Chronic Hemorrhoids (1 source) External hemorrhoids; Translations: [Residual hemorrhoidal skin tags] 09-13-2023 Episodic Open wounds of extremities (2 sources) Laceration of finger; Translations: [Laceration without foreign body of unspecified finger without damage to nail, initial encounter] Onset: 10-03-2024 07-07-2024 Episodic Other aftercare (20 sources) Long-term current use of anticoagulant; Translations: [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] 12-23-2022 Episodic Other aftercare (2 sources) Anticoagulant effect; Translations: [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] 10-12-2023 Episodic Other connective tissue disease (2 sources) Dysfunction of posterior tibial tendon; Translations: [Posterior tibial tendinitis, unspecified leg] 09-23-2023 Episodic Other ear and sense organ disorders (1 source) Impacted cerumen of bilateral ears; Translations: [Impacted cerumen, bilateral] Episodic Other ear and sense organ disorders (1 source) Impacted cerumen in right ear; Translations: [Impacted cerumen, right ear] Episodic Other ear and sense organ disorders (1 source) Excessive cerumen in ear canal ; Translations: [Impacted cerumen, bilateral] Episodic Other ear and sense organ disorders (2 sources) Impacted cerumen in left ear; Translations: [Impacted cerumen, left ear] 02-20-2023 Episodic Other ear and sense organ disorders (1 source) Impacted cerumen, left ear; Translations: [Impacted cerumen of left ear] Onset: 09-10-2024 Episodic Other gastrointestinal disorders (3 sources) Dysphagia; Translations: [Dysphagia, unspecified] 04-17-2024 Episodic Other gastrointestinal disorders (1 source) Dysphagia, unspecified; Translations: [Dysphagia, unspecified type] Onset: 05-24-2024 Episodic Other injuries and conditions due to external causes (1 source) Injury of ear; Translations: [Unspecified injury of ear, initial encounter] 09-20-2023 Episodic Other injuries and conditions due to external causes (1 source) Systemic inflammatory response syndrome; Translations: [Systemic inflammatory response syndrome (SIRS) of non-infectious origin without acute organ dysfunction] 06-04-2024 Episodic Other liver diseases (2 sources) Steatosis of liver; Translations: [Fatty (change of) liver, not elsewhere classified] 07-24-2024 Chronic Other liver diseases (1 source) Hyperbilirubinemia; Translations: [Unspecified jaundice] Episodic Other liver diseases (3 sources) Increased bilirubin level; Translations: [Unspecified jaundice] Episodic Other liver diseases (1 source) Unspecified jaundice; Translations: [Elevated bilirubin] Onset: 05-24-2024 Episodic Other nutritional; endocrine; and metabolic disorders (9 sources) Obese class I; Translations: [Obesity, unspecified] Onset: 03-01-2019 03-01-2019 Chronic Other nutritional; endocrine; and metabolic disorders (20 sources) Hyperbilirubinemia; Translations: [Other disorders of bilirubin metabolism] Onset: 12-22-2022 12-22-2022 Chronic Other skin disorders (2 sources) Eruption; Translations: [Rash and other nonspecific skin eruption] Episodic Other skin disorders (1 source) Lump on face; Translations: [Localized swelling, mass and lump, head] 12-01-2022 Episodic Other skin disorders (1 source) Callosity; Translations: [Corns and callosities] 09-23-2023 Episodic Other upper respiratory infections (1 source) Acute upper respiratory infection; Translations: [Acute upper respiratory infection, unspecified] 01-13-2023 Episodic Otitis media and related conditions (1 source) Dysfunction of right eustachian tube; Translations: [Other specified disorders of Eustachian tube, right ear] Episodic Lizet-; endo-; and myocarditis; cardiomyopathy (except that caused by tuberculosis or sexually transmitted disease) (7 sources) Hypertrophic obstructive cardiomyopathy; Translations: [Obstructive hypertrophic cardiomyopathy] Onset: 06-10-2024 02-18-2020 Chronic Poisoning by nonmedicinal substances (2 sources) Bee sting; Translations: [Toxic effect of venom of bees, accidental (unintentional), initial encounter] Episodic Residual codes; unclassified (20 sources) Obstructive sleep apnea syndrome; Translations: [Obstructive sleep apnea (adult) (pediatric)] Onset: 11-15-2013 04-28-2021 Chronic Residual codes; unclassified (20 sources) Central sleep apnea syndrome; Translations: [Primary central sleep apnea] Onset: 11-15-2013 Chronic Residual codes; unclassified (2 sources) Primary central sleep apnea; Translations: [Central sleep apnea] Onset: 08-03-2023 Chronic Residual codes; unclassified (1 source) Dependence on other enabling machines and devices; Translations: [Central sleep apnea treated with adaptive servo-ventilation (ASV) device] Onset: 08-03-2023 Chronic Residual codes; unclassified (1 source) Pain; Translations: [Pain, unspecified] 08-16-2023 Episodic Septicemia (except in labor) (4 sources) Sepsis; Translations: [Sepsis, unspecified organism] Onset: 06-10-2024 06-15-2024 Episodic Unclassified (1 source) Unknown / UNK(Unknown) Onset: 04-07-2017 Unclassified (1 source) for suture removal Unclassified (1 source) Obesity, class 1; Translations: [Obesity, class 1] Onset: 06-10-2024 Unclassified (1 source) Acidosis, unspecified; Translations: [Acidosis, unspecified] Onset: 06-10-2024 Urinary tract infections (8 sources) Urinary tract infectious disease; Translations: [Urinary tract infection, site not specified] 02-18-2020 Episodic Past or Other Problems Problem Classification Problem Date Documented Da te Episodic/Chronic Abdominal pain (20 sources) Generalized abdominal pain; Translations: [Generalized abdominal pain] Onset: 12-08-2013 Resolved: 04-29-2020 Episodic Conditions associated with dizziness or vertigo (20 sources) Lightheadedness; Translations: [Dizziness and giddiness] Onset: 08-05-2015 Resolved: 04-29-2020 04-28-2021 Episodic Congestive heart failure; nonhypertensive (20 sources) Heart failure; Translations: [Heart failure, unspecified] Onset: 11-13-2013 Resolved: 11-14-2013 Chronic Deficiency and other anemia (20 sources) Anemia; Translations: [Anemia, unspecified] Onset: 11-21-2013 Resolved: 04-29-2020 04-28-2021 Episodic Diabetes mellitus without complication (20 sources) Metabolic stress hyperglycemia; Translations: [Hyperglycemia, unspecified] Onset: 11-13-2013 Resolved: 11-16-2013 Episodic Fever of unknown origin (3 sources) Fever; Translations: [Fever, unspecified] Onset: 06-10-2024 06-15-2024 Episodic Fluid and electrolyte disorders (20 sources) Hypervolemia; Translations: [Fluid overload, unspecified] Onset: 11-15-2013 Resolved: 11-22-2013 06-15-2024 Episodic Gastritis and duodenitis (20 sources) Bile-induced gastritis; Translations: [Other gastritis without bleeding] Onset: 11-10-2022 12-22-2022 Episodic Genitourinary symptoms and ill-defined conditions (20 sources) Allen hematuria; Translations: [Gross hematuria] Onset: 10-11-2023 11-23-2022 Episodic Inflammatory conditions of male genital organs (4 sources) Acute prostatitis; Translations: [Acute prostatitis] Onset: 10-25-2023 10-11-2023 Episodic Malaise and fatigue (1 source) Other fatigue; Translations: [Lethargic infant] Onset: 02-25-2024 Episodic Nonspecific chest pain (8 sources) Atypical chest pain; Translations: [Other chest pain] Onset: 06-10-2024 03-31-2022 Episodic Other aftercare (1 source) senior care (current) use of anticoagulants; Translations: [senior care (current) use of anticoagulants] Onset: 06-10-2024 Episodic Other and unspecified benign neoplasm (20 sources) Adenomatous polyp of colon ; Translations: [Benign neoplasm of colon, unspecified] Onset: 01-08-2022 12-22-2022 Episodic Other circulatory disease (20 sources) History of cardiomyopathy; Translations: [Personal history of other diseases of the circulatory system] Onset: 11-01-2013 04-28-2021 Episodic Other circulatory disease (20 sources) Low blood pressure; Translations: [Hypotension, unspecified] Onset: 11-13-2013 Resolved: 11-16-2013 Episodic Other connective tissue disease (20 sources) Disorder of lower leg; Translations: [Posterior tibial tendinitis, unspecified leg] Onset: 11-25-2023 11-25-2023 Episodic Other connective tissue disease (1 source) Posterior tibial tendinitis, unspecified leg; Translations: [Posterior tibial tendon dysfunction] Onset: 11-25-2023 Episodic Other diseases of bladder and urethra (20 sources) Urethral stricture; Translations: [Unspecified urethral stricture, male, unspecified site] Onset: 11-15-2013 Resolved: 04-29-2020 02-18-2020 Episodic Other injuries and conditions due to external causes (1 source) Systemic inflammatory response syndrome (SIRS) of non-infectious origin without acute organ dysfunction; Translations: [Systemic inflammatory response syndrome (SIRS) of non-infectious origin without acute organ dysfunction] Onset: 06-10-2024 Episodic Other nervous system disorders (20 sources) Postoperative pain ; Translations: [Other acute postprocedural pain] Onset: 11-13-2013 Resolved: 11-22-2013 Episodic Other nutritional; endocrine; and metabolic disorders (20 sources) Body mass index 25-29 - overweight; Translations: [Overweight] Onset: 03-01-2019 Episodic Other screening for suspected conditions (not mental disorders or infectious disease) (20 sources) Patient encounter status; Translations: [Encounter for screening for malignant neoplasm of colon] Onset: 12-08-2013 Resolved: 04-29-2020 Episodic Other upper respiratory disease (20 sources) Bleeding from nose; Translations: [Epistaxis] Onset: 11-27-2013 Resolved: 04-29-2020 04-28-2021 Episodic Lizet-; endo-; and myocarditis; cardiomyopathy (except that caused by tuberculosis or sexually transmitted disease) (20 sources) Pericardial effusion; Translations: [Pericardial effusion] Onset: 11-17-2013 Resolved: 11-22-2013 Episodic Pleurisy; pneumothorax; pulmonary collapse (20 sources) Atelectasis; Translations: [Atelectasis] Onset: 11-15-2013 Resolved: 04-29-2020 04-28-2021 Episodic Pneumonia (except that caused by tuberculosis or sexually transmitted disease) (3 sources) Pneumonia; Translations: [Pneumonia, unspecified organism] Onset: 06-10-2024 06-15-2024 Episodic Unclassified (1 source) Encounter for screening for other disorder Onset: 04-07-2017 Unclassified (20 sources) SUMMARY Onset: 11-16-2013 Resolved: 04-29-2020 04-28-2021 Results Test Name Value Interpretation Reference Range Facility [facility] 10-11-2024 JOSUE Aripeka ([facility]) -- [place] ([id number]) 1970 M Date Time Provider Department 10/11/24 MAGDY RAMIREZ During your visit today, we recorded the following information about you: June Castellano OCCA 10/11/2024 2:33 PM Signed PAP order, OV notes, and demographics [facility] at [phone], and received confirmation on 10/11/2024 at 0846. Allergies As of Date: 10/11/2024 Noted Allergy Reaction CODEINE 10/30/2013 1 - Mental Status Change GLUTEN 07/20/2024 8 - GI Upset SULFA DRUGS (SULFA (SULFONAMIDE A*04/21/2023 17 - Myalgia Date Reviewed: 09/10/2024 Reviewed by: Yoko Chicas LPN - Fully Assessed Reason for Visit: PAP Rx Faxed [[id number]] [facility]mt: [facility] Prescriptions as of 10/11/2024 - CPAP/BIPAP/OTHER Type .CPAPSettings into a note to see current settings/supplies/DME information. - metoprolol succinate ER (TOPROL XL) 50 mg 24 hr tablet Take 1 tablet by mouth once daily. - Chlorhexidine Gluconate (PERIDEX) 0.12 % solution - LORazepam (ATIVAN) 0.5 mg - enoxaparin (LOVENOX) 120 mg/0.8 mL injection Inject 0.7mL (105mg) under the skin every 12 hours or as directed by the Coumadin Clinic - dicyclomine (BENTYL) 10 mg capsule Take 1 capsule by mouth three times a day as needed (for abdominal pain). - pantoprazole DR (PROTONIX) 40 mg tablet Take 1 tablet by mouth once daily. On empty stomach at least 30 minutes before eating. - coenzyme Q10 (CO Q-10) 100 mg cap capsule Take 1 capsule by mouth once daily. - warfarin (COUMADIN) 10 mg tablet Take 15 mg every Mon, Wed; 12.5 mg all other days or as directed by anticoagulation clinic. (Takes with 5 mg tablets) - warfarin (COUMADIN) 5 mg tablet Take 15 mg every Mon, Wed; 12.5 mg all other days or as directed by anticoagulation clinic. (Takes with 10 mg tablets) - rosuvastatin (CRESTOR) 20 mg tablet Take 1 tablet by mouth once daily. - CPAP/BIPAP/OTHER Type .CPAPSettings into a note to see current settings/supplies/DME information. - enoxaparin (LOVENOX) 120 mg/0.8 mL injection Inject 120 mg subcutaneously. - CPAP/BIPAP/OTHER Continue ASV with current settings of EPAP 5 cm H2O with PS 4-12 cmH2O. Lifetime supplies for ASV, including patient preferred mask, head gear, heated tubing, humidity, filters, chin strap. Dx: Obstructive Sleep Apnea G47.33 DME: [facility] - aspirin 81 mg chewable tablet Take 1 tablet by mouth once daily. - Melatonin 5 mg tab Take by mouth as needed. - ACETAMINOPHEN (TYLENOL EXTRA STRENGTH ORAL) Take by mouth as needed. Problem List As Of Date 10/11/2024 Noted Resolved Pre-op testing [Z01.818] 11/01/2013 11/16/2013 History of cardiomyopathy [Z86.79] 11/01/2013 Mitral valve regurgitation [I34.0] 11/01/2013 11/16/2013 Cardiac insufficiency (HCC) [I50.9] 11/13/2013 11/14/2013 Stress hyperglycemia [R73.9] 11/13/2013 11/16/2013 Postoperative pain [G89.18] 11/13/2013 11/22/2013 LBBB [I44.7] 11/13/2013 Hypotension [I95.9] 11/13/2013 11/16/2013 Atelectasis [J98.11] 11/15/2013 04/29/2020 Fluid overload [E87.70] 11/15/2013 11/16/2013 Central sleep apnea treated with adaptive servo*11/15/2013 Urethral stricture [N35.919] 11/15/2013 11/16/2013 SUMMARY [V999.95] 11/16/2013 04/29/2020 Hypertension [I10] 11/16/2013 Pericardial effusion [I31.39] 11/17/2013 11/22/2013 Hypovolemia [E86.1] 11/20/2013 11/22/2013 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] 11/21/2013 Anemia [D64.9] 11/21/2013 04/29/2020 Epistaxis [R04.0] 11/27/2013 04/29/2020 Subtherapeutic international normalized ratio (*12/08/2013 04/29/2020 Abdominal pain [R10.9] 12/08/2013 04/29/2020 Elevated LFTs [R79.89] 12/08/2013 04/29/2020 Stricture, urethra [N35.919] 12/10/2014 04/29/2020 Lightheadedness [R42] 08/05/2015 04/29/2020 Mitral stenosis [I05.0] senior care (current) use of anticoagulants [Z79.* Overweight (BMI 25.0-29.9) [E66.3] 03/01/2019 History of mitral valve replacement with mechan*12/21/2022 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] 12/22/2022 Diagnosed: 12/22/2022 Gout [M10.9] 12/22/2022 Diagnosed: 12/22/2022 Hyperbilirubinemia [E80.6] 12/22/2022 Diagnosed: 12/22/2022 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] 11/10/2022 Adenomatous colon polyp [D12.6] 01/08/2022 DOREEN (obstructive sleep apnea) [G47.33] 08/03/2023 Incomplete bladder emptying [R33.9] 10/11/2023 History of urethral stricture [Z87.448] 10/25/2023 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] 11/25/2023 Encounter Status:Closed by JUNE CASTELLANO on 10/11/24 [facility] 10-09-2024 [facility] Telephone (DILIP) -- GEORGIE ELIZABETH ([id number]) 1970 M Date Time Provider Department 10/09/24 MAGDY RAMIREZFH During your visit today, we recorded the following information about you: Krystyna Kearns LPN 10/09/2024 9:08 AM Signed Allergies As of Date: 10/09/2024 Noted Allergy Reaction CODEINE 10/30/2013 1 - Mental Status Change GLUTEN 07/20/2024 8 - GI Upset SULFA DRUGS (SULFA (SULFONAMIDE A*04/21/2023 17 - Myalgia Date Reviewed: 09/10/2024 Reviewed by: Yoko Chicas LPN - Fully Assessed Reason for Visit: Appointment [186] Cmt: DOWNLOAD PAP THERAPY FOLLOW UP Prescriptions as of 10/09/2024 - metoprolol succinate ER (TOPROL XL) 50 mg 24 hr tablet Take 1 tablet by mouth once daily. - Chlorhexidine Gluconate (PERIDEX) 0.12 % solution - LORazepam (ATIVAN) 0.5 mg - enoxaparin (LOVENOX) 120 mg/0.8 mL injection Inject 0.7mL (105mg) under the skin every 12 hours or as directed by the Coumadin Clinic - dicyclomine (BENTYL) 10 mg capsule Take 1 capsule by mouth three times a day as needed (for abdominal pain). - pantoprazole DR (PROTONIX) 40 mg tablet Take 1 tablet by mouth once daily. On empty stomach at least 30 minutes before eating. - coenzyme Q10 (CO Q-10) 100 mg cap capsule Take 1 capsule by mouth once daily. - warfarin (COUMADIN) 10 mg tablet Take 15 mg every Mon, Wed; 12.5 mg all other days or as directed by anticoagulation clinic. (Takes with 5 mg tablets) - warfarin (COUMADIN) 5 mg tablet Take 15 mg every Mon, Wed; 12.5 mg all other days or as directed by anticoagulation clinic. (Takes with 10 mg tablets) - rosuvastatin (CRESTOR) 20 mg tablet Take 1 tablet by mouth once daily. - CPAP/BIPAP/OTHER Type .CPAPSettings into a note to see current settings/supplies/DME information. - enoxaparin (LOVENOX) 120 mg/0.8 mL injection Inject 120 mg subcutaneously. - CPAP/BIPAP/OTHER Continue ASV with current settings of EPAP 5 cm H2O with PS 4-12 cmH2O. Lifetime supplies for ASV, including patient preferred mask, head gear, heated tubing, humidity, filters, chin strap. Dx: Obstructive Sleep Apnea G47.33 DME: [facility] - aspirin 81 mg chewable tablet Take 1 tablet by mouth once daily. - Melatonin 5 mg tab Take by mouth as needed. - ACETAMINOPHEN (TYLENOL EXTRA STRENGTH ORAL) Take by mouth as needed. Problem List As Of Date 10/09/2024 Noted Resolved Pre-op testing [Z01.818] 11/01/2013 11/16/2013 History of cardiomyopathy [Z86.79] 11/01/2013 Mitral valve regurgitation [I34.0] 11/01/2013 11/16/2013 Cardiac insufficiency (HCC) [I50.9] 11/13/2013 11/14/2013 Stress hyperglycemia [R73.9] 11/13/2013 11/16/2013 Postoperative pain [G89.18] 11/13/2013 11/22/2013 LBBB [I44.7] 11/13/2013 Hypotension [I95.9] 11/13/2013 11/16/2013 Atelectasis [J98.11] 11/15/2013 04/29/2020 Fluid overload [E87.70] 11/15/2013 11/16/2013 Central sleep apnea treated with adaptive servo*11/15/2013 Urethral stricture [N35.919] 11/15/2013 11/16/2013 SUMMARY [V999.95] 11/16/2013 04/29/2020 Hypertension [I10] 11/16/2013 Pericardial effusion [I31.39] 11/17/2013 11/22/2013 Hypovolemia [E86.1] 11/20/2013 11/22/2013 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] 11/21/2013 Anemia [D64.9] 11/21/2013 04/29/2020 Epistaxis [R04.0] 11/27/2013 04/29/2020 Subtherapeutic international normalized ratio (*12/08/2013 04/29/2020 Abdominal pain [R10.9] 12/08/2013 04/29/2020 Elevated LFTs [R79.89] 12/08/2013 04/29/2020 Stricture, urethra [N35.919] 12/10/2014 04/29/2020 Lightheadedness [R42] 08/05/2015 04/29/2020 Mitral stenosis [I05.0] senior care (current) use of anticoagulants [Z79.* Overweight (BMI 25.0-29.9) [E66.3] 03/01/2019 History of mitral valve replacement with mechan*12/21/2022 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] 12/22/2022 Diagnosed: 12/22/2022 Gout [M10.9] 12/22/2022 Diagnosed: 12/22/2022 Hyperbilirubinemia [E80.6] 12/22/2022 Diagnosed: 12/22/2022 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] 11/10/2022 Adenomatous colon polyp [D12.6] 01/08/2022 DOREEN (obstructive sleep apnea) [G47.33] 08/03/2023 Incomplete bladder emptying [R33.9] 10/11/2023 History of urethral stricture [Z87.448] 10/25/2023 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] 11/25/2023 Encounter Status:Closed by KRYSTYNA KEARNS on 10/09/24 [facility] 09-28-2024 CNP[facility] Telephone (PHAMTE) -- GEORGIE ELIZABETH ([id number]) 1970 Date Time Provider Department 09/28/24 GUNNAR PATEL During your visit today, we recorded the following information about you: Gunnar Patel, [facility] 09/28/2024 1:33 PM Signed [facility] Anticoagulation Clinic Anticoagulation Episode Summary Anticoagulation Care Providers Provider Role Specialty Phone number Saurav Bob MD Referring Internal Medicine [phone] Georgie Elizabeth is a 54 year old year old male patient being evaluated today for a Telemanagement visit. Patient is currently on the following anticoagulant(s) Warfarin. Labs Lab Results Component Value Date INR 3.3 09/28/2024 INR 2.8 09/15/2024 INR 3.2 08/24/2024 Lab Results Component Value Date HB 14.5 09/12/2024 HB 14.9 07/20/2024 HB 16.0 05/24/2024 Lab Results Component Value Date HCT 45.2 09/12/2024 HCT 46.0 07/20/2024 HCT 48.9 05/24/2024 Lab Results Component Value Date PLT 310 09/12/2024 PLT 308 07/20/2024 PLT 337 05/24/2024 Lab Results Component Value Date CREAT 0.82 09/12/2024 CREAT 0.83 07/20/2024 CREAT 0.76 05/24/2024 No components found for: TBILI3 Lab Results Component Value Date ALT 19 09/12/2024 ALT 33 05/24/2024 ALT 23 02/25/2024 Lab Results Component Value Date AST 18 09/12/2024 AST 27 05/24/2024 AST 20 02/25/2024 Estimated Creatinine Clearance: 141.6 mL/min (based on SCr of 0.82 mg/dL). ALLERGIES Allergen Reactions Codeine Mental Status Change Gluten GI Upset Sulfa Drugs [Sulfa * Myalgia Indication for Warfarin: Mechanical heart valve present 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 History of mitral valve replacement with mechanical valve Anticoagulation Episode Summary Current INR goal: 2.5-3.5 Assessment: INR result of 3.3 is therapeutic Plan: Current Warfarin Dosing As of 09/28/2024 Full warfarin instructions: 10 mg every Wed, Wed, Wed; 12.5 mg all other days Sent [employer] message Advised patient to continue current weekly dose as noted above Next home INR check scheduled on 10/12/2024 Patient advised to call the PAC with any medication changes, bleeding/bruising concerns, recent changes in vitamin k consumption, if any procedures are coming up, if they have been ill or in the hospital, and if they have missed any doses of warfarin. Gunnar Patel [facility] Clinical Pharmacist, Pharmacy Anticoagulation Clinic Pharmacy Anticoagulation Clinic Pager: [phone]. Aly Jiménez RPh 10/12/2024 10:55 AM Signed Patient was due to test INR today. Will continue to monitor for results. Follow up in one week if no results received. Patient's INR Goal range is - 2.5-3.5 PT INR (no units) Date Value 10/04/2023 2.0 07/11/2023 2.8 johanna per pt 01/26/2023 4.8 (self-reporting) INR (POCT) (no units) Date Value 07/20/2024 1.0 INR Home CoaguChek (no units) Date Value 09/28/2024 3.3 09/15/2024 2.8 08/24/2024 3.2 Patient is in titration phase - No Patient has dosing provided until next INR - Yes Patient is on an injectable anticoagulant - No Aly Jiménez lucy Allergies As of Date: 09/28/2024 Noted Allergy Reaction CODEINE 10/30/2013 1 - Mental Status Change GLUTEN 07/20/2024 8 - GI Upset SULFA DRUGS (SULFA (SULFONAMIDE A*04/21/2023 17 - Myalgia Date Reviewed: 09/10/2024 Reviewed by: Yoko Chicas LPN - Fully Assessed Reason for Visit: Anticoagulation Telephone Fu [148] Cmt: Home INR Primary Visit Diagnosis: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] Other Visit Diagnoses:senior care (current) use of anticoagulants [Z79.01] History of mitral valve replacement with mechanical valve [Z95.2] Prescriptions as of 10/12/2024 - CPAP/BIPAP/OTHER Type .CPAPSettings into a note to see current settings/supplies/DME information. - metoprolol succinate ER (TOPROL XL) 50 mg 24 hr tablet Take 1 tablet by mouth once daily. - Chlorhexidine Gluconate (PERIDEX) 0.12 % solution - LORazepam (ATIVAN) 0.5 mg - enoxaparin (LOVENOX) 120 mg/0.8 mL injection Inject 0.7mL (105mg) under the skin every 12 hours or as directed by the Coumadin Clinic - dicyclomine (BENTYL) 10 mg capsule Take 1 capsule by mouth three times a day as needed (for abdominal pain). - pantoprazole DR (PROTONIX) 40 mg tablet Take 1 tablet by mouth once daily. On empty stomach at least 30 minutes before eating. - coenzyme Q10 (CO Q-10) 100 mg cap capsule Take 1 capsule by mouth once daily. - warfarin (COUMADIN) 10 mg tablet Take 15 mg every Mon, Wed; 12.5 mg all other days or as directed by anticoagulation clinic. (Takes with 5 mg tablets) - warfarin (COUMADIN) 5 mg tablet Take 15 mg every Mon, Wed; 12.5 mg all other days or as directed by anticoagulation clinic. (Takes with 10 mg tablets) - rosuvastatin (CRESTOR) 20 mg tablet Take 1 tablet by (more content not included)... Normal [facility] Telephone (NEUR) -- GEORGIE ELIZABETH ([id number]) 1970 Date Time Provider Department 09/28/24 MAGDY RAMIREZ [facility] During your visit today, we recorded the following information about you: Maria Esther Christianson 09/28/2024 12:29 PM Signed SLEEP PHONE Name of caller: Georgie Relationship to patient : Self In-state or [id number] patient: In-State Was permission obtained from patient? Yes Patient identified by Name and Date of . ( Georgie Orlando Elizabeth, 1970). Yes Reason for Call : Called the office requesting to know if should be using cpap before his appt with Mike in October and if he'll be getting new supplies in the meantime Number to return call Okay to leave a message ? Yes Thank you calling [facility] [place]. You will receive a return call within 3 business days. If you feel that this is an urgent issue and needs immediate attention, it is recommended that you contact your primary care provider office or proceed to your Primary Care Provider, [facility], or Emergency Room for evaluation/treatment. Paulina Lockwood, RN 09/28/2024 1:59 PM Signed I returned call to patient to discuss recent sleep study results. Per Magdy Ramirez PA-C no central events were noted on this sleep study. Pt can stop using his ASV device as long as he sleep on his side. We discussed an earlier appointment to review the results and treatment options in detail. He accepted an appt on 10/11/2024 at 8:30 am with Magdy Ramirez PA-C. I will cancel the appt on 11/08/2024. Patient expressed understanding. No other questions or concerns at this time. Allergies As of Date: 09/28/2024 Noted Allergy Reaction CODEINE 10/30/2013 1 - Mental Status Change GLUTEN 07/20/2024 8 - GI Upset SULFA DRUGS (SULFA (SULFONAMIDE A*04/21/2023 17 - Myalgia Date Reviewed: 09/10/2024 Reviewed by: Yoko Chicas LPN - Fully Assessed Reason for Visit: Patient Question [0157] Returning Patient's Call [408] Prescriptions as of 09/28/2024 - metoprolol succinate ER (TOPROL XL) 50 mg 24 hr tablet Take 1 tablet by mouth once daily. - Chlorhexidine Gluconate (PERIDEX) 0.12 % solution - LORazepam (ATIVAN) 0.5 mg - enoxaparin (LOVENOX) 120 mg/0.8 mL injection Inject 0.7mL (105mg) under the skin every 12 hours or as directed by the Coumadin Clinic - dicyclomine (BENTYL) 10 mg capsule Take 1 capsule by mouth three times a day as needed (for abdominal pain). - pantoprazole DR (PROTONIX) 40 mg tablet Take 1 tablet by mouth once daily. On empty stomach at least 30 minutes before eating. - coenzyme Q10 (CO Q-10) 100 mg cap capsule Take 1 capsule by mouth once daily. - warfarin (COUMADIN) 10 mg tablet Take 15 mg every Mon, Wed; 12.5 mg all other days or as directed by anticoagulation clinic. (Takes with 5 mg tablets) - warfarin (COUMADIN) 5 mg tablet Take 15 mg every Mon, Wed; 12.5 mg all other days or as directed by anticoagulation clinic. (Takes with 10 mg tablets) - rosuvastatin (CRESTOR) 20 mg tablet Take 1 tablet by mouth once daily. - CPAP/BIPAP/OTHER Type .CPAPSettings into a note to see current settings/supplies/DME information. - enoxaparin (LOVENOX) 120 mg/0.8 mL injection Inject 120 mg subcutaneously. - CPAP/BIPAP/OTHER Continue ASV with current settings of EPAP 5 cm H2O with PS 4-12 cmH2O. Lifetime supplies for ASV, including patient preferred mask, head gear, heated tubing, humidity, filters, chin strap. Dx: Obstructive Sleep Apnea G47.33 DME: [facility]IE - aspirin 81 mg chewable tablet Take 1 tablet by mouth once daily. - Melatonin 5 mg tab Take by mouth as needed. - ACETAMINOPHEN (TYLENOL EXTRA STRENGTH ORAL) Take by mouth as needed. Problem List As Of Date 09/28/2024 Noted Resolved Pre-op testing [Z01.818] 11/01/2013 11/16/2013 History of cardiomyopathy [Z86.79] 11/01/2013 Mitral valve regurgitation [I34.0] 11/01/2013 11/16/2013 Cardiac insufficiency (HCC) [I50.9] 11/13/2013 11/14/2013 Stress hyperglycemia [R73.9] 11/13/2013 11/16/2013 Postoperative pain [G89.18] 11/13/2013 11/22/2013 LBBB [I44.7] 11/13/2013 Hypotension [I95.9] 11/13/2013 11/16/2013 Atelectasis [J98.11] 11/15/2013 04/29/2020 Fluid overload [E87.70] 11/15/2013 11/16/2013 Central sleep apnea treated with adaptive servo*11/15/2013 Urethral stricture [N35.919] 11/15/2013 11/16/2013 SUMMARY [V999.95] 11/16/2013 04/29/2020 Hypertension [I10] 11/16/2013 Pericardial effusion [I31.39] 11/17/2013 11/22/2013 Hypovolemia [E86.1] 11/20/2013 11/22/2013 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 Normal [facility] POLYSOMNOGRAM (PSG)/HOME SLE EP APNEA TEST (HSAT)on 09-17-2024 POLYSOMNOGRAM (PSG)/HOME SLEEP APNEA TEST (HSAT) [facility] [place] ??? [address], [place] [address] ; PSG Study Report Name: GEORGIE ELIZABETH Date of Study: 09/17/2024 CC#: [id number] Age: 54 (: 1970) ESS: 02/23 Neck Circ. (cm): 39.5 Height (cm): 194.3 Weight (kg): 111.1 BMI: 29.4 Referring Provider: MAGDY RAMIREZ Mailcode: Sleep history: The patient is a 54 year old male with a history of witnessed apneas, multiple awakenings from sleep, and excessive daytime sleepiness. The patient endorses being a habitual side sleeper. Pertinent past medical history: Allergic rhinitis, Hyperlipidemia, Insomnia Pertinent medications: Tylenol, Coenzyme, Bentyl, Lovenox, Ativan, Melatonin, Toprol - XL, Protonix, Crestor, Coumadin Sleep procedure: PSG 4 or more addtl [facility] ([id number]) Procedure: The study was attended continuously by a senior technologist. The monitored parameters included: left (E1-M2) and right (E2-M1) EOG, frontal (F3-M2 and F4-M1), central (C3-M2 and C4-M1) and occipital (O1-M2 and O2-M1) EEG, mental and submental EMG, left and right anterior tibialis, left and right flexor digitorum superficialis EMG, single ECG waveform, snoring, continuous airflow with thermistor, nasal pressure transducer, chest and abdominal effort, oxygen saturation, ETCO2, and body position via video monitoring. Hypopnea definition: The peak signal excursions drop by >= 30% of pre-event baseline using nasal pressure (diagnostic study), PAP device flow (titration study) or an alternative hypopnea sensor (diagnostic study). The duration of the >= 30% drop in signal excursion is >= 10 seconds. There is a greater than or equal to 3% oxygen desaturation from pre-event baseline or the event is associated with an arousal. Respiratory Effort Related Arousal (RERA) definition: 10 seconds characterized by increasing respiratory effort or by flattening of the nasal pressure or PAP flow waveform leading to arousal from sleep when the sequence of breaths does not meet criteria for an apnea or hypopnea. Respiratory Disturbance Index (RDI) definition: RDI = (#apneas + #hypopneas + #RERAs) x 60 / TST.. SLEEP ARCHITECTURE: The study started at 22:35:37 and ended at 05:19:01. Total sleep time (TST) was 192 minutes resulting in a sleep efficiency of 47.6% (total recording time (TRT) = 403 m). There were 21 awakenings with a total time awake after sleep onset of 195.5 minutes. The sleep latency was 15.5 minutes and the REM latency was 333 minutes. The patient spent 2.9% of sleep time in the supine position. The sleep stage percentages were 7.6% stage N1, 84.4% stage N2, 0.0% stage N3 and 8.1% REM sleep. There were 61 arousals, resulting in an arousal index of 19.1. There were 61 stage shifts. RESPIRATORY DATA: Snoring was noted. There were 34 respiratory events consisting of 0 apneas, 34 hypopneas, and 0 RERAs. The apnea-hypopnea index (AHI) was 10.6. The mean oxygen saturation during the study was 96.0%, with a minimum oxygen saturation of 93.0%. The wake supine end-tidal CO2 (ETCO2) value was 35 mmHg. The maximum ETCO2 was 45 mmHg. Nura-Echavarria/Periodic Breathing was not present. Supplemental oxygen was not administered. REM-Time REM AHI NREM-Time NREM AHI Total-Time Total AHI Supine 0.0 m -- 5.5 m 76.4 5.5 m 76.4 Off-Supine 15.5 m 19.4 171.0 m 7.7 186.5 m 8.7 Total 15.5 m 19.4 176.5 m 9.9 192.0 m 10.6 MOVEMENT DATA: No abnormal behavior or motor activities were noted. There were 21 periodic limb movements during sleep, resulting in a PLM-index of 6.6. Of these, none were associated with arousals. ECG DATA: The average heart rate during sleep was 68 beats per minute, with a range of 57 to 72. During wake, the heart rate ranged from 57 to 88 beats per minute. PACs were seen on this study. OTHER NOTABLE FINDINGS: The patient took melatonin and Ativan prior to the sleep study. ICSD DIAGNOSIS: Obstructive Sleep Apnea Syndrome [G47.33] IMPRESSION/RECOMMENDATIONS : 1. Mild obstructive sleep apnea exacerbated to the moderate degree during REM sleep. This apnea-hypopnea index (AHI) may be underestimated due to the absence of recorded REM supine sleep. 2. Treatment options for mild sleep apnea include oral appliance, conservative measures (avoidance of alcohol, sedative medications and sleeping in the back positions, management of nasal obstruction, and weight loss), surgery and potentially PAP therapy if daytime symptoms and certain comorbidities are present. INTERPRETING PHYSICIAN: Kaushik Ruiz DO, JD I attest that I have performed epoch by epoch review of the entire raw data and find this study to be technically adequate. Report Digitally Signed By: KAUSHIK FRIEDMAN DO (09/25/2024 11:58:55 AM) [facility] GEORGIE ELIZABETH ([id number]) 1970 M Date Time Provider Department 09/15/24 JONES WEST During your visit today, we recorded the following information about you: Jones West [facility] 09/15/2024 10:44 AM Signed [facility] Ambulatory Pharmacy Anticoagulation Clinic Anticoagulation Episode Summary Anticoagulation Care Providers Provider Role Specialty Phone number Saurav Bob MD Referring Internal Medicine [phone] Georgie Elizabeth is a 54 year old year old male patient being evaluated today for a Telemanagement visit. Patient is currently on the following anticoagulant(s) Warfarin. Labs Lab Results Component Value Date INR 2.8 09/15/2024 INR 3.2 08/24/2024 INR 2.8 08/10/2024 Lab Results Component Value Date HB 14.5 09/12/2024 HB 14.9 07/20/2024 HB 16.0 05/24/2024 Lab Results Component Value Date HCT 45.2 09/12/2024 HCT 46.0 07/20/2024 HCT 48.9 05/24/2024 Lab Results Component Value Date PLT 310 09/12/2024 PLT 308 07/20/2024 PLT 337 05/24/2024 Lab Results Component Value Date CREAT 0.82 09/12/2024 CREAT 0.83 07/20/2024 CREAT 0.76 05/24/2024 No components found for: TBILI3 Lab Results Component Value Date ALT 19 09/12/2024 ALT 33 05/24/2024 ALT 23 02/25/2024 Lab Results Component Value Date AST 18 09/12/2024 AST 27 05/24/2024 AST 20 02/25/2024 Estimated Creatinine Clearance: 141.6 mL/min (based on SCr of 0.82 mg/dL). ALLERGIES Allergen Reactions Codeine Mental Status Change Gluten GI Upset Sulfa Drugs [Sulfa * Myalgia Indication for Warfarin: Mechanical heart valve present 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 History of mitral valve replacement with mechanical valve Anticoagulation Episode Summary Current INR goal: 2.5-3.5 Assessment: INR result of 2.8 is therapeutic Plan: Current Warfarin Dosing As of 09/15/2024 Full warfarin instructions: 10 mg every Wed, Wed, Wed; 12.5 mg all other days Sent [employer] message Advised patient to continue current weekly dose as noted above Next home INR check scheduled on 09/29/2024 Patient advised to call the PAC with any medication changes, bleeding/bruising concerns, recent changes in vitamin k consumption, if any procedures are coming up, if they have been ill or in the hospital, and if they have missed any doses of warfarin. [facility] Clinical Pharmacist, Pharmacy Anticoagulation Clinic Pharmacy Anticoagulation Clinic Pager: [phone]. Allergies As of Date: 09/15/2024 Noted Allergy Reaction CODEINE 10/30/2013 1 - Mental Status Change GLUTEN 07/20/2024 8 - GI Upset SULFA DRUGS (SULFA (SULFONAMIDE A*04/21/2023 17 - Myalgia Date Reviewed: 09/10/2024 Reviewed by: Yoko Chicas LPN - Fully Assessed Reason for Visit: Anticoagulation Telephone Fu [148] Cmt: INR Home Test Result Primary Visit Diagnosis: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] Other Visit Diagnoses:senior care (current) use of anticoagulants [Z79.01] History of mitral valve replacement with mechanical valve [Z95.2] Prescriptions as of 09/28/2024 - metoprolol succinate ER (TOPROL XL) 50 mg 24 hr tablet Take 1 tablet by mouth once daily. - Chlorhexidine Gluconate (PERIDEX) 0.12 % solution - LORazepam (ATIVAN) 0.5 mg - enoxaparin (LOVENOX) 120 mg/0.8 mL injection Inject 0.7mL (105mg) under the skin every 12 hours or as directed by the Coumadin Clinic - dicyclomine (BENTYL) 10 mg capsule Take 1 capsule by mouth three times a day as needed (for abdominal pain). - pantoprazole DR (PROTONIX) 40 mg tablet Take 1 tablet by mouth once daily. On empty stomach at least 30 minutes before eating. - coenzyme Q10 (CO Q-10) 100 mg cap capsule Take 1 capsule by mouth once daily. - warfarin (COUMADIN) 10 mg tablet Take 15 mg every Mon, Wed; 12.5 mg all other days or as directed by anticoagulation clinic. (Takes with 5 mg tablets) - warfarin (COUMADIN) 5 mg tablet Take 15 mg every Wed, Wed; 12.5 mg all other days or as directed by anticoagulation clinic. (Takes with 10 mg tablets) - rosuvastatin (CRESTOR) 20 mg tablet Take 1 tablet by mouth once daily. - CPAP/BIPAP/OTHER Type .CPAPSettings into a note to see current settings/supplies/DME information. - enoxaparin (LOVENOX) 120 mg/0.8 mL injection Inject 120 mg subcutaneously. - CPAP/BIPAP/OTHER Continue ASV with current settings of EPAP 5 cm H2O with PS 4-12 cmH2O. Lifetime supplies for ASV, including patient preferred mask, head gear, heated tubing, humidity, filters, chin strap. Dx: Obstructive Sleep Apnea G47.33 DME: ROSEMARIE SHOOKI: [id number] - aspirin 81 mg chewable tablet Take 1 tablet by mouth once daily. - Melatonin 5 mg tab Take by mouth as needed. - ACETAMINOPHEN (TYLENOL EXTRA STRENGTH ORAL) Take by mouth as needed. Problem List As Of Date 09/15/2024 Noted Resolved Pre-op te (more content not included)... Normal [facility] Basic metabolic 2000 panelon 09-12-2024 Anion gap [Moles/Vol] 6 mmol/L Low 8-15 [facility] Comment on above: Order Comment: Speci men Type: BLOOD SPECIMEN Ordering Facility: [facility] Address: [address] [address] Performed By: #### P SAS1 #### [facility] CLIA [id number] [address] [place] [address] [place] Calcium [Mass/Vol] 9.6 mg/dL Normal 8.5-10.2 [facility] Comment on above: Order Comment: Speci men Type: BLOOD SPECIMEN Ordering Facility: [facility] Address: [address] [facility] [place] [address] Performed By: #### P SAS1 #### [facility] CLIA [id number] [address] [place] [address] [place] Chloride [Moles/Vol] 105 mmol/L Normal 98-107 [facility] Comment on above: Order Comment: Speci men Type: BLOOD SPECIMEN Ordering Facility: [facility] Address: [address] [address] Performed By: #### P SAS1 #### [facility] CLIA [id number] [address] [place], [place] [address] [place] CO2 [Moles/Vol] 28 mmol/L Normal 22-30 [facility] Comment on above: Order Comment: Speci men Type: BLOOD SPECIMEN Ordering Facility: [facility] Address: [address], [place] [address] Performed By: #### P SAS1 #### [facility] [place] [id number] [address] [place] [address] [place] Creatinine [Mass/Vol] 0.82 mg/dL Normal 0.73-1.22 [facility] Comment on above: Order Comment: Speci men Type: BLOOD SPECIMEN Ordering Facility: [facility] Address: [facility] [address] [facility] [place] [place] [address] Performed By: #### P SAS1 #### [facility] IA [id number] [address] [place] [address] [place] Creatinine and Glomerular filtration rate.predicted panel (S/P/Bld) 104 mL/min/1.73m??? Normal >=60 [facility] Comment on above: Order Comment: Cecilia lobato Type: BLOOD SPECIMEN Ordering Facility: [facility] Address: [facility] [place] [address] Result Comment: Matilda mated Glomerular Filtration Rate (eGFR) is calculated using the 2020 CKD-EPI creatinine equation. This equation utilizes serum creatinine, sex, and age as parameters. The creatinine assay has traceable calibration to isotope dilution-mass spectrometry. Refer to KDIGO guidelines for clinical interpretation. In patients with unstable renal function, e.g. those with acute kidney injury, the eGFR may not accurately reflect actual GFR. Performed By: #### P SAS1 #### [facility] IA [id number] [facility] [place] [address] [place] Glucose [Mass/Vol] 104 mg/dL High 74-99 [facility] Comment on above: Order Comment: Speci luis alfredo Type: BLOOD SPECIMEN Ordering Facility: [facility] Address: [facility] [address] [facility] [place] [address] Result Comment: The [place] Diabetes Association (ADA) provides guidance for cutoff values for fasting glucose and random glucose. The ADA defines fasting as no caloric intake for at least 8 hours. Fasting plasma glucose results between 100 to 125 mg/dL indicate increased risk for diabetes (prediabetes). Fasting plasma glucose results greater than or equal to 126 mg/dL meet the criteria for diagnosis of diabetes. In the absence of unequivocal hyperglycemia, results should be confirmed by repeat testing. In a patient with classic symptoms of hyperglycemia or hyperglycemic crisis, random plasma glucose results greater than or equal to 200 mg/dL meet the criteria for diagnosis of diabetes. Reference: Standards of Medical Care in Diabetes 2016, Citizen [place] Diabetes Association. Diabetes Care. 2016.39(Suppl 1). Performed By: #### P SAS1 #### [facility] CLIA [id number] [address] [place] [address] [place] Potassium [Moles/Vol] 4.6 mmol/L Normal 3.7-5.1 [facility] Comment on above: Order Comment: Mervati luis alfredo Type: BLOOD SPECIMEN Ordering Facility: [facility] Address: [address] [place] [address] Performed By: #### P SAS1 #### [facility] CLIA [id number] [address] [place] [address] [place] Sodium [Moles/Vol] 139 mmol/L Normal 136-144 [facility] Comment on above: Order Comment: Cecilia lobato Type: BLOOD SPECIMEN Ordering Facility: [facility] Address: [address] [place] [address] Performed By: #### P SAS1 #### [facility] CLIA [id number] [address] [place] [address] [place] Urea nitrogen [Mass/Vol] 12 mg/dL Normal 9-24 [facility] Comment on above: Order Comment: Speci men Type: BLOOD SPECIMEN Ordering Facility: [facility] Address: [facility] [place] [address] Performed By: #### P SAS1 #### [facility] CLIA [id number] [address] [place] [address] [place] CBC W Auto Differential pane l (Bld)on 09-12-2024 Basophils (Bld) [#/Vol] 0.05 10*3/uL Normal <0.11 [facility] Comment on above: Order Comment: Speci men Type: BLOOD SPECIMEN Ordering Facility: [facility] Address: [address] [place] [address] Performed By: #### 5 7021-8 #### [facility] CLIA [id number] [address] [place] [address] [place] Basophils/100 WBC (Bld) 1.0 % Normal [facility] Comment on above: Order Comment: Speci men Type: BLOOD SPECIMEN Ordering Facility: [facility] Address: [address] [address] Performed By: #### 5 7021-8 #### [facility] CLIA [id number] [address] [place] [address] [place] Differential cell count method Nom (Bld) Auto Normal [facility] Comment on above: Order Comment: Speci men Type: BLOOD SPECIMEN Ordering Facility: [facility] Address: [address] [facility] [place] [address] Performed By: #### 5 7021-8 #### [facility] CLIA [id number] [address] [place] [address] [place] Eosinophils (Bld) [#/Vol] 0.25 10*3/uL Normal <0.46 [facility] Comment on above: Order Comment: Speci men Type: BLOOD SPECIMEN Ordering Facility: [facility] Address: [address] [facility] [address] Performed By: #### 5 7021-8 #### [facility] CLIA [id number] [address] [place] [address] [place] Eosinophils/100 WBC (Bld) 5.0 % Normal [facility] Comment on above: Order Comment: Speci men Type: BLOOD SPECIMEN Ordering Facility: [facility] Address: [address] [place] [address] Performed By: #### 5 7021-8 #### [facility] CLIA [id number] [address] [place] [address] [place] Erythrocyte distribution width (RBC) [Ratio] 13.6 % Normal 11.5-15.0 [facility] Comment on above: Order Comment: Speci men Type: BLOOD SPECIMEN Ordering Facility: [facility] Address: [address] [address] Performed By: #### 5 7021-8 #### [id number] [address] [place] [address] [place] Hematocrit (Bld) [Volume fraction] 45.2 % Normal 39.0-51.0 [facility] Comment on above: Order Comment: Speci men Type: BLOOD SPECIMEN Ordering Facility: [facility] Address: [facility] [place] [address] Performed By: #### 5 7021-8 #### [facility] [id number] [address] [place] [address] [place] Hemoglobin (Bld) [Mass/Vol] 14.5 g/dL Normal 13.0-17.0 [facility] Comment on above: Order Comment: Speci men Type: BLOOD SPECIMEN Ordering Facility: [facility] Address: [facility] [place] [address] Performed By: #### 5 7021-8 #### [facility] CLIA [id number] [address] [place] [address] [place] Immature granulocytes (Bld) [#/Vol] 10*3/uL Normal <0.10 [facility] Comment on above: Order Comment: Speci men Type: BLOOD SPECIMEN Ordering Facility: [facility] Address: [address] [facility] [place] [address] Performed By: #### 5 7021-8 #### [facility] CLIA [id number] [address] [place] [address] [place] Immature granulocytes/100 WBC (Bld) 0.0 % Normal [facility] Comment on above: Order Comment: Speci men Type: BLOOD SPECIMEN Ordering Facility: [facility] Address: [facility] [place] [address] Performed By: #### 5 7021-8 #### [facility] CLIA [id number] [address] [place] [address] [place] Lymphocytes (Bld) [#/Vol] 2.09 10*3/uL Normal 1.00-4.00 [facility] Comment on above: Order Comment: Speci men Type: BLOOD SPECIMEN Ordering Facility: [facility] Address: [address] [place] [address] [place] [address] Performed By: #### 5 7021-8 #### [facility] CLIA [id number] [address] [place] [address] [place] Lymphocytes/100 WBC (Bld) 42.0 % Normal [facility] Comment on above: Order Comment: Speci men Type: BLOOD SPECIMEN Ordering Facility: [facility] Address: [facility] [place] [address] Performed By: #### 5 7021-8 #### [facility] CLIA [id number] [address] [place] [address] [place] MCH (RBC) [Entitic mass] 25.8 pg Low 26.0-34.0 [facility] Comment on above: Order Comment: Speci men Type: BLOOD SPECIMEN Ordering Facility: [facility] Address: [facility] [address] [facility] [place] [address] Performed By: #### 5 7021-8 #### [facility] CLIA [id number] [address] [place], [place] [id number] [place] MCHC (RBC) [Mass/Vol] 32.1 g/dL Normal 30.5-36.0 [facility] Comment on above: Order Comment: Speci men Type: BLOOD SPECIMEN Ordering Facility: [facility] Address: [address] [place] [address] [place] [address] Performed By: #### 5 7021-8 #### [facility] CLIA [id number] [address] [place] [address] [place] MCV (RBC) [Entitic vol] 80.6 fL Normal 80.0-100.0 [facility] Comment on above: Order Comment: Speci men Type: BLOOD SPECIMEN Ordering Facility: [facility] Address: [address] [place] [address] [place] [address] Performed By: #### 5 7021-8 #### [facility] CLIA [id number] [address] [place] [address] [place] Monocytes (Bld) [#/Vol] 0.64 10*3/uL Normal <0.87 [facility] Comment on above: Order Comment: Speci men Type: BLOOD SPECIMEN Ordering Facility: [facility] Address: [address] [place] [address] [place] [address] Performed By: #### 5 7021-8 #### [facility] CLIA [id number] [address] [place] [address] [place] Monocytes/100 WBC (Bld) 12.9 % Normal [facility] Comment on above: Order Comment: Speci men Type: BLOOD SPECIMEN Ordering Facility: [facility] Address: [address] [place] [address] [place] [address] Performed By: #### 5 7021-8 #### [facility] CLIA [id number] [address] [place] [address] [place] Neutrophils (Bld) [#/Vol] 1.95 10*3/uL Normal 1.45-7.50 [facility] Comment on above: Order Comment: Speci men Type: BLOOD SPECIMEN Ordering Facility: [facility] Address: [address] [address] Performed By: #### 5 7021-8 #### [facility] CLIA [id number] [address] [place] [address] [place] Neutrophils/100 WBC (Bld) 39.1 % Normal [facility] Comment on above: Order Comment: Speci men Type: BLOOD SPECIMEN Ordering Facility: [facility] Address: [address] [facility] [place] [address] Performed By: #### 5 7021-8 #### [facility] CLIA [id number] [address] [place] [address] [place] Nucleated RBC (Bld) [#/Vol] 10*3/uL Normal <0.01 [facility] Comment on above: Order Comment: Speci men Type: BLOOD SPECIMEN Ordering Facility: [facility] Address: [address] [facility] [place] [address] Performed By: #### 5 7021-8 #### [facility] CLIA [id number] [address] [place] [address] [place] Nucleated RBC/100 WBC (Bld) [Ratio] 0.0 /100 WBC Normal [facility] Comment on above: Order Comment: Speci men Type: BLOOD SPECIMEN Ordering Facility: [facility] Address: [address] [facility] [place] [address] Performed By: #### 5 7021-8 #### [facility] CLIA [id number] [address] [place] [address] [place] Platelet mean volume (Bld) [Entitic vol] 9.1 fL Normal 9.0-12.7 [facility] Comment on above: Order Comment: Speci men Type: BLOOD SPECIMEN Ordering Facility: [facility] Address: [address] [facility] [place] [address] Performed By: #### 5 7021-8 #### [facility] CLIA [id number] [address] [place] [address] [place] Platelets (Bld) [#/Vol] 310 10*3/uL Normal 150-400 [facility] Comment on above: Order Comment: Speci men Type: BLOOD SPECIMEN Ordering Facility: [facility] Address: [address] [facility] [place] [address] Performed By: #### 5 7021-8 #### [facility] CLIA [id number] [address] [place] [address] [place] RBC (Bld) [#/Vol] 5.61 10*6/uL Normal 4.20-6.00 [facility] Comment on above: Order Comment: Speci men Type: BLOOD SPECIMEN Ordering Facility: [facility] Address: [address] [facility] [place] [place] [address] Performed By: #### 5 7021-8 #### [facility] CLIA [id number] [address] [place] [address] [place] WBC (Bld) [#/Vol] 4.98 10*3/uL Normal 3.70-11.00 [facility] Comment on above: Order Comment: Speci men Type: BLOOD SPECIMEN Ordering Facility: [facility] Address: [address] [facility] [place] [address] Performed By: #### 5 7021-8 #### [facility] CLIA [id number] [address] [place] [address] [place] Hepatic function 2000 panelo n 09-12-2024 Albumin [Mass/Vol] 4.4 g/dL Normal 3.9-4.9 [facility] Comment on above: Order Comment: Speci men Type: BLOOD SPECIMEN Ordering Facility: [facility] Address: [address] [place] [address] Performed By: #### P SAS1 #### [facility] CLIA [id number] [address] [place] [address] [place] ALP [Catalytic activity/Vol] 63 U/L Normal 38-113 [facility] Comment on above: Order Comment: Speci men Type: BLOOD SPECIMEN Ordering Facility: [facility] Address: [address] [place] [address] Performed By: #### P SAS1 #### [facility] CLIA [id number] [address] [place] [address] [place] ALT [Catalytic activity/Vol] 19 U/L Normal 10-54 [facility] Comment on above: Order Comment: Speci men Type: BLOOD SPECIMEN Ordering Facility: [facility] Address: [address] [place] [address] Performed By: #### P SAS1 #### [facility] CLIA [id number] [address] [place] [address] [place] AST [Catalytic activity/Vol] 18 U/L Normal 14-40 [facility] Comment on above: Order Comment: Speci men Type: BLOOD SPECIMEN Ordering Facility: [facility] Address: [address] [place] [address] Performed By: #### P SAS1 #### [facility] CLIA [id number] [address] [place] [address] [place] Bilirubin [Mass/Vol] 1.3 mg/dL Normal 0.2-1.3 [facility] Comment on above: Order Comment: Speci men Type: BLOOD SPECIMEN Ordering Facility: [facility] Address: [address] [place] [address] Performed By: #### P SAS1 #### [facility] CLIA [id number] [address] [place] [address] [place] Bilirubin.conjugated [Mass/Vol] 0.3 mg/dL High <0.3 [facility] Comment on above: Order Comment: Speci men Type: BLOOD SPECIMEN Ordering Facility: [facility] Address: [address] [place] [address] [place] [id number] Performed By: #### P SAS1 #### [facility] CLIA [id number] [facility] [place] [address] [place] Protein [Mass/Vol] 6.9 g/dL Normal 6.3-8.0 [facility] Comment on above: Order Comment: Speci men Type: BLOOD SPECIMEN Ordering Facility: [facility] Address: [address] [place] [address] [place] [address] Performed By: #### P SAS1 #### [facility] CLIA [id number] [address] [place] [address] [place] Lipid 1996 panelon 5 Cholesterol [Mass/Vol] 222 mg/dL High <200 [facility] Comment on above: Order Comment: Speci men Type: BLOOD SPECIMENOrdering Facility: [facility] Address: [address] [place] [address] [place] [address] Result Comment: <200 mg/dL, Desirable 200-239 mg/dL, Borderline high >239 mg/dL, High Performed By: #### 2 4331-1 ####[facility] [id number] [place] [id number] [place] [facility] [id number] [place] [address] [place]#### 3016-3 ####[facility]IA [id number] [place] [id number] [place] Cholesterol in HDL [Mass/Vol] 26 mg/dL Low >39 [facility] Comment on above: Order Comment: Speci men Type: BLOOD SPECIMENOrdering Facility: [facility] Address: [address] [facility] [place] [address] Result Comment: 40-5 9 mg/dL, Acceptable >59 mg/dL, High: Negative risk factor for coronary heart disease <40 mg/dL, Low: Positive risk factor for coronary heart disease Performed By: #### 2 4331-1 ####[facility] LABCLIA [id number] [facility] [place] [id number] [place] [facility] [id number] [address] [place]#### 3016-3 ####[facility] LAB[facility]IA [id number] [facility] [place] [id number] [place] Cholesterol in LDL [Mass/Vol] 142 mg/dL High <100 [facility] Comment on above: Order Comment: Speci men Type: BLOOD SPECIMENOrdering Facility: [facility] Address: [address] [place] [address] Result Comment: <100 mg/dL, Optimal 100-129 mg/dL, Near optimal/above optimal 130-159 mg/dL, Borderline high 160-189 mg/dL, High >189 mg/dL, Very high Secondary prevention optimal LDL Cholesterol levels are recommended to be <70 mg/dL LDL cholesterol is calculated using the Grier-NIH equation. Performed By: #### 2 4331-1 ####[facility] LABCLIA [id number] [facility] [address] [address] [facility] [id number] [address] [place]#### 3016-3 ####[facility] LABCLIA [id number] [facility] [address] [address] [place] Cholesterol in LDL/Cholesterol in HDL [Mass ratio] 5.46 {ratio} High <2.54 [facility] Comment on above: Order Comment: Speci men Type: BLOOD SPECIMENOrdering Facility: [facility] Address: [facility] [address] [facility] [place] [address] Result Comment: Mary suresh: 1. National Cholesterol Education Program ATP III Guideline At-A-Glance Quick Desk Reference: National Heart, Lung, and Blood [place]. National Institutes of Health. 2001: NIH Publication No. 01-3305. 2. An International Atherosclerosis Society position paper: global recommendations for the management of dyslipidemia: executive summary, Atherosclerosis. 2014: 232(2):410-413. Performed By: #### 2 4331-1 ####[facility] LABCLIA [id number] [address] [place] [id number] [place] [address] [place]#### 3016-3 ####[facility] LABCLIA [id number] [place] [address] [place] Cholesterol in VLDL [Mass/Vol] 54 mg/dL High <30 [facility] Comment on above: Order Comment: Speci men Type: BLOOD SPECIMENOrdering Facility: [facility] Address: [address] [place] [address] [place] [address] Performed By: #### 2 4331-1 ####[facility] LABCLIA [id number] [facility] [address] STATES OF [facility] [id number] [place] [address] [place]#### 3016-3 ####[facility] LABCLIA [id number] [place] [id number] [place] Cholesterol non HDL [Mass/Vol] 196 mg/dL High <130 [facility] Comment on above: Order Comment: Speci men Type: BLOOD SPECIMENOrdering Facility: [facility] Address: [address] [facility] [place] [address] Result Comment: <130 mg/dL, Optimal 130-159 mg/dL, Near optimal/above optimal 160-189 mg/dL, Borderline high 190-219 mg/dL, High >219 mg/dL, Very high Secondary prevention optimal non HDL Cholesterol levels are recommended to be <100 mg/dL Performed By: #### 2 4331-1 ####[facility] LABCLIA [id number] [address] [id number] [place] [address] [place]#### 3016-3 ####[facility] LABCLIA [id number] [address] [place] Cholesterol.total/Chol esterol in HDL [Mass ratio] 8.54 {ratio} High <5.10 [facility] Comment on above: Order Comment: Speci men Type: BLOOD SPECIMENOrdering Facility: [facility] Address: [facility] [facility] [place] [address] Performed By: #### 2 4331-1 ####[facility] LABCLIA [id number] [id number] [place] [address] [place]#### 3016-3 ####[facility] LABCLIA [id number] [place] [id number] [place] FASTING TIME 12 hrs Normal [facility] Comment on above: Order Comment: Speci men Type: BLOOD SPECIMENOrdering Facility: [facility] Address: [address] [facility] [place] [address] Performed By: #### 2 4331-1 ####[facility] LABCLIA [id number] [address] [place] [address] [facility] [id number] [place] [address] [place]#### 3016-3 ####[facility] LABCLIA [id number] [address] [place] [address] [place] Triglyceride [Mass/Vol] 292 mg/dL High <150 [facility] Comment on above: Order Comment: Speci men Type: BLOOD SPECIMENOrdering Facility: [facility] Address: [facility] [address] [place] [address] Result Comment: <150 mg/dL, Normal 150-199 mg/dL, Borderline high 200-499 mg/dL, High >499 mg/dL, Very high Performed By: #### 2 4331-1 ####[facility] LABCLIA [id number] [address], [id number] [place] [address] [place]#### 3016-3 ####[facility] LABCLIA [id number] [address] [place] [address] [place] TSH SerPl-aCncon 09-12-2024 TSH Qn 0.922 m[IU]/L Normal 0.270-4.20 0 [facility] Comment on above: Order Comment: Speci men Type: BLOOD SPECIMENOrdering Facility: [facility] Address: [facility] [address] [place] [address] Performed By: #### 2 4331-1 ####[facility] LABCLIA [id number] [place] [id number] [facility] [id number] [place] [address] [place]#### 3016-3 ####[facility] DAVID [id number] [place] [id number] [place] OF [facility] CNOVon 09-10-2024 CNOV Office Visit ([facility] ) -- GEORGIE ELIZABETH ([id number]) 1970 M Date Time Provider Department 09/10/24 11:15 AM JASMIN GREENE [facility] During your visit today, we recorded the following information about you: Temperature Pulse Respiration Blood pressure 97.4 degrees 57/minute 16/minute 110/78 Weight 111.1 kg Jasmin Greene APRN.SHEET METAL WORKER APPRENTICE 09/10/2024 11:33 AM Signed Subjective The history is provided by the patient. No language specialist was used. HPI Georgie Elizabeth is a 54 year old male who presents today for CC of left ear pressure. He denies any fever, chills, cough, congestion or runny nose. He has used no treatment or medication, he does have a h/o cerumen impaction. BP 110/78 Pulse (!) 57 Temp 36.3 ?C (97.4 ?F) (Tympanic) Resp 16 Wt 111.1 kg (244 lb 14.9 oz) SpO2 97% BMI 29.43 kg/m? 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 HENT: Positive for ear pain. Negative for congestion, sinus pain and sore throat. Respiratory: Negative for cough, sputum production, shortness of breath and wheezing. Cardiovascular: Negative for chest pain. Musculoskeletal: Negative for myalgias. Neurological: Negative for headaches. Objective Physical Exam Vitals and nursing note reviewed. HENT: Head: Normocephalic and atraumatic. Right Ear: Tympanic membrane, ear canal and external ear normal. Left Ear: Tympanic membrane, ear canal and external ear normal. There is impacted cerumen. Ears: Comments: Removed small amount with lighted currette, Lavage done of left ear by TIFFANIE Richter, patient tolerated well, able to see TM - see exam - normal after lavagae Pulmonary: Effort: Pulmonary effort is normal. Skin: General: Skin is warm and dry. Neurological: Mental Status: He is alert and oriented to person, place, and time. Psychiatric: Mood and Affect: Affect normal. Recording using [employer] software for draft documentation of the visit was discussed with the patient/authorized risk control representative; all questions welcomed and answered. Patient/authorized risk control representative agreed to proceed Differential Diagnoses - cerumen impaction is more likely for the following reason(s): suggested by HANDP - AOM is less likely for the following reason(s): HANDP not suggestive Cerumen Removal Performed by: Jasmin Greene APRN.CNP Authorized by: Jasmin Greene APRN.CNP Informed Consent Consent Obtained: Verbal [place] Protocol A moment to CARE was completed. SIGN IN Special Equipment: N/A Patient/Surrogate Stated/Verified: Patient name, Date of , Relevant allergies and Intended procedure TIME OUT Procedure details: Location: L ear Post-procedure details: Inspection: TM intact Hearing quality: Improved Patient tolerance of procedure: Tolerated well, no immediate complications SIGN OUT All instruments, equipment, possible retained foreign bodies accounted for. Jasmin Greene APRN.CNP 09/10/2024 11:25 AM Signed Use may use OTC Debrox or Cerumenex once a month for maintenance. Avoid inserting Q-tips into your ears. Follow up with your PCP as needed. Jonathan White MA 09/10/2024 11:33 AM Signed Ambulatory Ear Lavage Pre-treatment: Warm water Treatment: Left ear Equipment and Irrigation solution and Volume used: Single use syringe with single use irrigation tip Water Return flow appearance: Brown Yellow Patient tolerated procedure: yes Tympanic membrane assessment: Tympanic membrane assessed by LIP pre and post procedure Jonathan White MA Allergies As of Date: 09/10/2024 Noted Allergy Reaction CODEINE 10/30/2013 1 - Mental Status Change GLUTEN 07/20/2024 8 - GI Upset SULFA DRUGS (SULFA (SULFONAMIDE A*04/21/2023 17 - Myalgia Date Reviewed: 09/10/2024 Reviewed by: Yoko Chicas LPN - Fully Assessed Reason for Visit: Ear Problem [38] Cmt: Left ear congestion x 1 week Primary Visit Diagnosis:Impacted cerume (more content not included)... Normal [facility] Cerumen Removalon 09-10-2024 Jasmin Greene APRN.CN P 09/10/2024 11:33 AM Cerumen Removal Performed by: Jasmin Greene APRN.SHEET METAL WORKER APPRENTICE Authorized by: Jasmin Greene APRN.SHEET METAL WORKER APPRENTICE Informed Consent Consent Obtained: Verbal [place] Protocol A moment to CARE was completed. SIGN IN Special Equipment: N/A Patient/Surrogate Stated/Verified: Patient name, Date of , Relevant allergies and Intended procedure TIME OUT Procedure details: Location: L ear Post-procedure details: Inspection: TM intact Hearing quality: Improved Patient tolerance of procedure: Tolerated well, no immediate complications SIGN OUT All instruments, equipment, possible retained foreign bodies accounted for. [facility] CNPNon 08-24-2024 JOSUE Telephone (MyoScience[employer]Speak) -- GEORGIE ELIZABETH ([id number]) 1970 M Date Time Provider Department 08/24/24 GUNNAR PATEL During your visit today, we recorded the following information about you: Gunnar Patel, [facility] 08/24/2024 8:18 AM Signed [facility] Ambulatory Pharmacy Anticoagulation Clinic Anticoagulation Episode Summary Anticoagulation Care Providers Provider Role Specialty Phone number BobSaurav avery MD Referring Internal Medicine [phone] Georgie Elizabeth is a 54 year old year old male patient being evaluated today for a Telemanagement visit. Patient is currently on the following anticoagulant(s) Warfarin. Labs Lab Results Component Value Date INR 3.2 08/24/2024 INR 2.8 08/10/2024 INR 2.7 07/27/2024 Lab Results Component Value Date HB 14.9 07/20/2024 HB 16.0 05/24/2024 HB 15.3 02/25/2024 Lab Results Component Value Date HCT 46.0 07/20/2024 HCT 48.9 05/24/2024 HCT 46.6 02/25/2024 Lab Results Component Value Date PLT 308 07/20/2024 PLT 337 05/24/2024 PLT 336 02/25/2024 Lab Results Component Value Date CREAT 0.83 07/20/2024 CREAT 0.76 05/24/2024 CREAT 0.90 02/25/2024 No components found for: TBILI3 Lab Results Component Value Date ALT 33 05/24/2024 ALT 23 02/25/2024 ALT 26 08/03/2023 Lab Results Component Value Date AST 27 05/24/2024 AST 20 02/25/2024 AST 21 08/03/2023 Estimated Creatinine Clearance: 140.9 mL/min (based on SCr of 0.83 mg/dL). ALLERGIES Allergen Reactions Codeine Mental Status Change Gluten GI Upset Sulfa Drugs [Sulfa * Myalgia Indication for Warfarin: Mechanical heart valve present senior care (current) use of anticoagulants History of mitral valve replacement with mechanical valve Anticoagulation Episode Summary Current INR goal: 2.5-3.5 Assessment: INR result of 3.2 is therapeutic Plan: Current Warfarin Dosing As of 08/24/2024 Full warfarin instructions: 10 mg every Wed, Wed, Martha; 12.5 mg all other days Sent mychart message Advised patient to continue current weekly dose as noted above Next home INR check scheduled on 09/07/2024 Patient advised to call the PAC with any medication changes, bleeding/bruising concerns, recent changes in vitamin k consumption, if any procedures are coming up, if they have been ill or in the hospital, and if they have missed any doses of warfarin. Gunnar Patel lucy Clinical Pharmacist, Pharmacy Anticoagulation Clinic Pharmacy Anticoagulation Clinic Pager: [phone]. Gunnar Patel [facility] 09/07/2024 3:38 PM Signed Patient was due to test INR today. Will continue to monitor for results. Follow up in one week if no results received. Patient's INR Goal range is - 2.5-3.5 PT INR (no units) Date Value 10/04/2023 2.0 07/11/2023 2.8 johanna per pt 01/26/2023 4.8 (self-reporting) INR (POCT) (no units) Date Value 07/20/2024 1.0 INR Home CoaguChek (no units) Date Value 08/24/2024 3.2 08/10/2024 2.8 07/27/2024 2.7 Patient is in titration phase - No Patient has dosing provided until next INR - Yes Patient is on an injectable anticoagulant - No Gunnar Patel Gunnar Storm [facility] 09/14/2024 9:42 AM Signed Georgie Elizabeth was sent M[employer] message and reminded to test INR today or as soon as possible. Gunnar Patel [facility] Allergies As of Date: 08/24/2024 Noted Allergy Reaction CODEINE 10/30/2013 1 - Mental Status Change GLUTEN 07/20/2024 8 - GI Upset SULFA DRUGS (SULFA (SULFONAMIDE A*04/21/2023 17 - Myalgia Date Reviewed: 07/31/2024 Reviewed by: Magdy Ramirez PA-C - Fully Assessed Reason for Visit: Anticoagulation Telephone Fu [148] Cmt: Home INR Primary Visit Diagnosis: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] Other Visit Diagnoses:senior care (current) use of anticoagulants [Z79.01] History of mitral valve replacement with mechanical valve [Z95.2] Prescriptions as of 09/14/2024 - Chlorhexidine Gluconate (PERIDEX) 0.12 % solution - LORazepam (ATIVAN) 0.5 mg - enoxaparin (LOVENOX) 120 mg/0.8 mL injection Inject 0.7mL (105mg) under the skin every 12 hours or as directed by the Coumadin Clinic - metoprolol succinate ER (TOPROL XL) 50 mg 24 hr tablet Take 1 tablet by mouth once daily. - dicyclomine (BENTYL) 10 mg capsule Take 1 capsule by mouth three times a day as needed (for abdominal pain). - pantoprazole DR (PROTONIX) 40 mg tablet Take 1 tablet by mouth once daily. On empty stomach at least 30 minutes before eating. - coenzyme Q10 (CO Q-10) 100 mg cap capsule Take 1 capsule by mouth once daily. - warfarin (COUMADIN) 10 mg tablet Take 15 mg every Mon, Wed; 12.5 mg all other days or as directed by anticoagulation clinic. (Takes with 5 mg tablets) - warfarin (COUMADIN) 5 mg tablet Take 15 mg every Mon, Wed; 12.5 mg all other days or as directed by anticoagulation clinic (more content not included)... Normal [facility] 08-10-2024 [facility] Telephone (PHAMTE) -- GEORGIE ELIZABETH ([id number]) 1970 M Date Time Provider Department 08/10/24 GUNNAR PATEL During your visit today, we recorded the following information about you: Gunnar Patel, [facility] 08/10/2024 5:23 PM Signed [facility] Ambulatory Pharmacy Anticoagulation Clinic Anticoagulation Episode Summary Anticoagulation Care Providers Provider Role Specialty Phone number Saurav Bob MD Referring Internal Medicine [phone] Georgie Elizabeth is a 54 year old year old male patient being evaluated today for a Telemanagement visit. Patient is currently on the following anticoagulant(s) Warfarin. Labs PT INR (no units) Date Value 10/04/2023 2.0 07/11/2023 2.8 johanna per pt 01/26/2023 4.8 (self-reporting) INR (POCT) (no units) Date Value 07/20/2024 1.0 INR Home CoaguChek (no units) Date Value 08/10/2024 2.8 07/27/2024 2.7 07/25/2024 1.9 Hemoglobin (g/dL) Date Value 07/20/2024 14.9 08/05/2015 14.6 Hematocrit (%) Date Value 07/20/2024 46.0 08/05/2015 43.7 Platelet Count (k/uL) Date Value 07/20/2024 308 08/05/2015 327 Creatinine (mg/dL) Date Value 07/20/2024 0.83 05/24/2024 0.76 02/25/2024 0.90 08/05/2015 1.09 08/05/2015 1.03 02/17/2015 0.99 Bilirubin, Total (mg/dL) Date Value 05/24/2024 1.5 08/05/2015 0.8 ALT (U/L) Date Value 05/24/2024 33 08/05/2015 34 AST (U/L) Date Value 05/24/2024 27 08/05/2015 23 Estimated Creatinine Clearance: 140.9 mL/min (based on SCr of 0.83 mg/dL). ALLERGIES Allergen Reactions Codeine Mental Status Change Gluten GI Upset Sulfa Drugs [Sulfa * Myalgia Indication for Warfarin: Mechanical heart valve present 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 History of mitral valve replacement with mechanical valve Anticoagulation Episode Summary Current INR goal: 2.5-3.5 Assessment: INR result of 2.8 is therapeutic Plan: Current Warfarin Dosing As of 08/10/2024 Full warfarin instructions: 10 mg every Wed, Wed, Wed; 12.5 mg all other days Sent [employer] message Advised patient to continue current weekly dose as noted above Next home INR check scheduled on 08/24/2024 Patient advised to call the PAC with any medication changes, bleeding/bruising concerns, recent changes in vitamin k consumption, if any procedures are coming up, if they have been ill or in the hospital, and if they have missed any doses of warfarin. Gunnar Patel [facility] Clinical Pharmacist, Pharmacy Anticoagulation Clinic Pharmacy Anticoagulation Clinic Pager: [phone]. Allergies As of Date: 08/10/2024 Noted Allergy Reaction CODEINE 10/30/2013 1 - Mental Status Change GLUTEN 07/20/2024 8 - GI Upset SULFA DRUGS (SULFA (SULFONAMIDE A*04/21/2023 17 - Myalgia Date Reviewed: 07/31/2024 Reviewed by: Magdy Ramirez PA-C - Fully Assessed Reason for Visit: Anticoagulation Telephone Fu [148] Cmt: Home INR Primary Visit Diagnosis: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] Other Visit Diagnoses:senior care (current) use of anticoagulants [Z79.01] History of mitral valve replacement with mechanical valve [Z95.2] Prescriptions as of 08/10/2024 - Chlorhexidine Gluconate (PERIDEX) 0.12 % solution - LORazepam (ATIVAN) 0.5 mg - enoxaparin (LOVENOX) 120 mg/0.8 mL injection Inject 0.7mL (105mg) under the skin every 12 hours or as directed by the Coumadin Clinic - metoprolol succinate ER (TOPROL XL) 50 mg 24 hr tablet Take 1 tablet by mouth once daily. - dicyclomine (BENTYL) 10 mg capsule Take 1 capsule by mouth three times a day as needed (for abdominal pain). - pantoprazole DR (PROTONIX) 40 mg tablet Take 1 tablet by mouth once daily. On empty stomach at least 30 minutes before eating. - coenzyme Q10 (CO Q-10) 100 mg cap capsule Take 1 capsule by mouth once daily. - warfarin (COUMADIN) 10 mg tablet Take 15 mg every Mon, Wed; 12.5 mg all other days or as directed by anticoagulation clinic. (Takes with 5 mg tablets) - warfarin (COUMADIN) 5 mg tablet Take 15 mg every Mon, Wed; 12.5 mg all other days or as directed by anticoagulation clinic. (Takes with 10 mg tablets) - rosuvastatin (CRESTOR) 20 mg tablet Take 1 tablet by mouth once daily. - CPAP/BIPAP/OTHER Type .CPAPSettings into a note to see current settings/supplies/DME information. - enoxaparin (LOVENOX) 120 mg/0.8 mL injection Inject 120 mg subcutaneously. - CPAP/BIPAP/OTHER Continue ASV with current settings of EPAP 5 cm H2O with PS 4-12 cmH2O. Lifetime supplies for ASV, including patient preferred mask, head gear, heated tubing, humidity, filters, chin strap. Dx: Obstructive Sleep Apnea G47.33 DME: [facility] - aspirin 81 mg chewable tablet Take 1 tablet by mouth once daily. - Melatonin 5 mg tab Take by mouth as needed. - ACETAMINOPHEN (TYLENOL EXTRA STRENGTH ORAL) Take by mouth as (more content not included)... Normal [facility] CNOVon 07-31-2024 CNOV Office Visit ([facility] ) -- GEORGIE ELIZABETH ([id number]) 1970 M Date Time Provider Department 07/31/24 2:00 PM MAGDY RAMIREZ [facility] During your visit today, we recorded the following information about you: Temperature Pulse Blood pressure Weight 97 degrees 72/minute 104/74 113 kg Height 1.943 m Magdy Ramirez PA-C 08/01/2024 1:00 PM Signed [facility] Follow up/ Established patient visit Date of last visit : 08/03/2023 IMPRESSION: Central sleep apnea (primary encounter diagnosis) Doreen (obstructive sleep apnea) Central sleep apnea treated with adaptive servo-ventilation (asv) device Georgie Elizabeth is a pleasant 53 year old male with PMH of CSA + DOREEN on ASV, HOCM, HTN, LBBB, mechanical heart valve, mitral stenosis. He has had 3 cardiac surgeries. His most recent sleep study was completed about 1 year following his last cardiac surgery. (PSG 11/22/2014 at [facility] revealed primary CSA (AHI of 15; 100% central apneas) that was associated with a minimum O2 saturation of 85% (4% hypopnea scoring; BMI 29.64.)) He reports compliance with PAP therapy and perceived benefit of treatment. Last available download from device is 05/2022 and device is not present at today's visit. He has stopped using So Clean device as directed. He is using F20 mask with silicone cushion. Sample mask liner provided d/t rash. PLAN: - Continue ASV at current settings of EPAP 5 cmH2O with PS 4-12 cmH2O - Send the SD card to DME so we can check your PAP report - Remember to clean your mask and equipment regularly, as directed. - Avoid use of ozone section gang worker, SoClean devices, or UV cleaning devices - Avoid using alcohol or alcohol-containing products on your mask, as this may compromise the integrity of the mask materials and contribute to leak issues - Try RemZZZ or Silent Night mask liners to help reduce rash - Try the Gecko nasal gel pad for bridge of nose - You should be eligible for new supplies approximately every 3-6 months, depending on your insurance coverage. Contact your Durable Medical Equipment (DME) company for new supplies as needed. 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 He was in the ICU with sepsis after he had pneumonia. He was told his oxygen levels remained over 90% without any supplemental O2 or ASV. He takes melatonin 10mg, tylenol PM, nyquil. He was prescribed lorazepam 0.5mg nightly for sleep. SLEEP APNEA A Polysomnogram performed on 11/22/2014 at [facility] revealed primary CSA (AHI of 15; 100% central apneas) that was associated with a minimum O2 saturation of 85% (4% hypopnea scoring; BMI 29.64). ASV titration study completed on 02/08/2012 at [facility] showed that ASV best controlled respiratory events at a max PS of 15 cmH2O, a minimum PS of 4 cmH2O and an EEP of 5 cmH2O (BMI 29.41). A PAP titration study completed on 01/25/2012 at [facility] showed complex sleep apnea uncontrolled with CPAP, BiPAP S, and BiPAP ST, and ASV titration was recommended (BMI 29.41). A PAP titration study completed on 01/17/2012 at [facility] showed frequent central apneas during CPAP titration. A Polysomnogram performed on 12/26/2011 at [facility] revealed mild DOREEN (AHI of 14; 15 obstructive apneas, 5 central apneas, 0 mixed; 7% central events) that was associated with a minimum O2 saturation of 89% (BMI 29.43). Sleep apnea type : CSA Most Recent Apnea-Hypopnea Index (AHI): 0.1 Treatment : PAP therapy DME: Adriel Cardenas PAP History: Uses ASV for 7 hours per night, 7 nights per week. Current PAP setting: see report. Difficulties with ASV: Yes: difficulty staying asleep with mask on Reviewed objective PAP compliance data: yes AHI 0.1 There is not a perceived benefit by the patient Observers report abolition of snoring and respiratory events with ASV use. -- ---- PATIENT-ENTERED QUESTIONNAIRE SLEEP SCORES 07/24/2024 Sleep Questions Reason for visit: Sleep apnea Difficulty falling or staying asleep or poor sleep quality Unsure On average, hours of sleep in 24 hours: 6 Average hours of CPAP per night: 6 Percent of nights CPAP used at least 4 hours: 98 Accidents or near accidents due to drowsy drivin Multiple values from one day are sorted in reverse-chronological order 09/27/2020 06/24/2022 07/24/2024 Purdy Sleepiness Scale Score 9 (No clinically significant daytime sleepiness) 7 (No clinically significant daytime sleepiness) 10 (No clinically significant daytime sleepiness) 09/27/2020 06/24/2022 07/24/2024 PROMIS CAT Sleep Disturbance PROMIS Sleep Disturbance T-Score 56 ( (more content not included)... Normal [facility] 07-31-2024 JOSUE Telephone ([facility]) -- GLENNGEORGIE ([id number]) 1970 M Date Time Provider Department 07/31/24 MAGDY RAMIREZ During your visit today, we recorded the following information about you: June Castellano OCCA 07/31/2024 8:41 AM Signed Allergies As of Date: 07/31/2024 Noted Allergy Reaction CODEINE 10/30/2013 1 - Mental Status Change GLUTEN 07/20/2024 8 - GI Upset SULFA DRUGS (SULFA (SULFONAMIDE A*04/21/2023 17 - Myalgia Date Reviewed: 07/24/2024 Reviewed by: Gayathri Sky PA-C - Fully Assessed Reason for Visit: PAP Compliance AND Therapy Report [Other] Cmt: Follow Up Prescriptions as of 07/31/2024 - enoxaparin (LOVENOX) 120 mg/0.8 mL injection Inject 0.7mL (105mg) under the skin every 12 hours or as directed by the [facility]madin Clinic - metoprolol succinate ER (TOPROL XL) 50 mg 24 hr tablet Take 1 tablet by mouth once daily. - dicyclomine (BENTYL) 10 mg capsule Take 1 capsule by mouth three times a day as needed (for abdominal pain). - pantoprazole DR (PROTONIX) 40 mg tablet Take 1 tablet by mouth once daily. On empty stomach at least 30 minutes before eating. - coenzyme Q10 (CO Q-10) 100 mg cap capsule Take 1 capsule by mouth once daily. - warfarin (COUMADIN) 10 mg tablet Take 15 mg every Mon, Wed; 12.5 mg all other days or as directed by anticoagulation clinic. (Takes with 5 mg tablets) - warfarin (COUMADIN) 5 mg tablet Take 15 mg every Mon, Wed; 12.5 mg all other days or as directed by anticoagulation clinic. (Takes with 10 mg tablets) - rosuvastatin (CRESTOR) 20 mg tablet Take 1 tablet by mouth once daily. - CPAP/BIPAP/OTHER Type .CPAPSettings into a note to see current settings/supplies/DME information. - enoxaparin (LOVENOX) 120 mg/0.8 mL injection Inject 120 mg subcutaneously. - CPAP/BIPAP/OTHER Continue ASV with current settings of EPAP 5 cm H2O with PS 4-12 cmH2O. Lifetime supplies for ASV, including patient preferred mask, head gear, heated tubing, humidity, filters, chin strap. Dx: Obstructive Sleep Apnea G47.33 DME: [facility] - aspirin 81 mg chewable tablet Take 1 tablet by mouth once daily. - Melatonin 5 mg tab Take by mouth as needed. - ACETAMINOPHEN (TYLENOL EXTRA STRENGTH ORAL) Take by mouth as needed. Problem List As Of Date 07/31/2024 Noted Resolved Pre-op testing [Z01.818] 11/01/2013 11/16/2013 History of cardiomyopathy [Z86.79] 11/01/2013 Mitral valve regurgitation [I34.0] 11/01/2013 11/16/2013 Cardiac insufficiency (HCC) [I50.9] 11/13/2013 11/14/2013 Stress hyperglycemia [R73.9] 11/13/2013 11/16/2013 Postoperative pain [G89.18] 11/13/2013 11/22/2013 LBBB [I44.7] 11/13/2013 Hypotension [I95.9] 11/13/2013 11/16/2013 Atelectasis [J98.11] 11/15/2013 04/29/2020 Fluid overload [E87.70] 11/15/2013 11/16/2013 Central sleep apnea treated with adaptive servo*11/15/2013 Urethral stricture [N35.919] 11/15/2013 11/16/2013 SUMMARY [V999.95] 11/16/2013 04/29/2020 Hypertension [I10] 11/16/2013 Pericardial effusion [I31.39] 11/17/2013 11/22/2013 Hypovolemia [E86.1] 11/20/2013 11/22/2013 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9] 12/22/2022 Diagnosed: 12/22/2022 Hyperbilirubinemia [E80.6] 12/22/2022 Diagnosed: 12/22/2022 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] 11/10/2022 Adenomatous colon polyp [D12.6] 01/08/2022 DOREEN (obstructive sleep apnea) [G47.33] 08/03/2023 Incomplete bladder emptying [R33.9] 10/11/2023 History of urethral stricture [Z87.448] 10/25/2023 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 Spoke with a risk control representative that stated she would fax that over to our office [place]. Fax number for our office was confirmed as [phone]. Waiting on report. NikkieJune krueger OCCA 07/28/2024 10:19 AM Signed Received pt's PAP compliance report from [facility]. Allergies As of Date: 07/28/2024 Noted Allergy Reaction CODEINE 10/30/2013 1 - Mental Status Change GLUTEN 07/20/2024 8 - GI Upset SULFA DRUGS (SULFA (SULFONAMIDE A*04/21/2023 17 - Myalgia Date Reviewed: 07/24/2024 Reviewed by: Gayathri Sky PA-C - Fully Assessed Reason for Visit: Requesting PAP Compliance and Therapy Report [Other] Cmt: [facility]. Prescriptions as of 07/28/2024 - enoxaparin (LOVENOX) 120 mg/0.8 mL injection Inject 0.7mL (105mg) under the skin every 12 hours or as directed by the Coumadin Clinic - metoprolol succinate ER (TOPROL XL) 50 mg 24 hr tablet Take 1 tablet by mouth once daily. - dicyclomine (BENTYL) 10 mg capsule Take 1 capsule by mouth three times a day as needed (for abdominal pain). - pantoprazole DR (PROTONIX) 40 mg tablet Take 1 tablet by mouth once daily. On empty stomach at least 30 minutes before eating. - coenzyme Q10 (CO Q-10) 100 mg cap capsule Take 1 capsule by mouth once daily. - warfarin (COUMADIN) 10 mg tablet Take 15 mg every Mon, Wed; 12.5 mg all other days or as directed by anticoagulation clinic. (Takes with 5 mg tablets) - warfarin (COUMADIN) 5 mg tablet Take 15 mg every Mon, Wed; 12.5 mg all other days or as directed by anticoagulation clinic. (Takes with 10 mg tablets) - rosuvastatin (CRESTOR) 20 mg tablet Take 1 tablet by mouth once daily. - CPAP/BIPAP/OTHER Type .CPAPSettings into a note to see current settings/supplies/DME information. - enoxaparin (LOVENOX) 120 mg/0.8 mL injection Inject 120 mg subcutaneously. - CPAP/BIPAP/OTHER Continue ASV with current settings of EPAP 5 cm H2O with PS 4-12 cmH2O. Lifetime supplies for ASV, including patient preferred mask, head gear, heated tubing, humidity, filters, chin strap. Dx: Obstructive Sleep Apnea G47.33 DME: [facility] - aspirin 81 mg chewable tablet Take 1 tablet by mouth once daily. - Melatonin 5 mg tab Take by mouth as needed. - ACETAMINOPHEN (TYLENOL EXTRA STRENGTH ORAL) Take by mouth as needed. Problem List As Of Date 07/28/2024 Noted Resolved Pre-op testing [Z01.818] 11/01/2013 11/16/2013 History of cardiomyopathy [Z86.79] 11/01/2013 Mitral valve regurgitation [I34.0] 11/01/2013 11/16/2013 Cardiac insufficiency (HCC) [I50.9] 11/13/2013 11/14/2013 Stress hyperglycemia [R73.9] 11/13/2013 11/16/2013 Postoperative pain [G89.18] 11/13/2013 11/22/2013 LBBB [I44.7] 11/13/2013 Hypotension [I95.9] 11/13/2013 11/16/2013 Atelectasis [J98.11] 11/15/2013 04/29/2020 Fluid overload [E87.70] 11/15/2013 11/16/2013 Central sleep apnea treated with adaptive servo*11/15/2013 Urethral stricture [N35.919] 11/15/2013 11/16/2013 SUMMARY [V999.95] 11/16/2013 04/29/2020 Hypertension [I10] 11/16/2013 Pericardial effusion [I31.39] 11/17/2013 11/22/2013 Hypovolemia [E86.1] 11/20/2013 11/22/2013 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] 11/21/2013 Anemia [D64.9] 11/21/2013 04/29/2020 Epistaxis [R04.0] 11/27/2013 04/29/2020 Subtherapeutic international normalized ratio (*12/08/2013 04/29/2020 Abdominal pain [R10.9] 12/08/2013 04/29/2020 Elevated LFTs [R79.89] 12/08/2013 04/29/2020 Stricture, urethra [N35.919] 12/10/2014 04/29/2020 Lightheadedness [R42] 08/05/2015 04/29/2020 Mitral stenosis [I05.0] senior care (current) use of anticoagulants [Z79.* Overweight (BMI 25.0-29.9) [E66.3] 03/01/2019 History of mitral valve replacement with mechan*12/21/2022 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] 12/22/2022 Diagnosed: 12/22/2022 Gout [M10.9] 12/22/2022 Diagnosed: 12/22/2022 Hyperbilirubinemia [E80.6] 12/22/2022 Diagnosed: 12/22/2022 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] 11/10/2022 Adenomatous colon polyp [D12.6] 01/08/2022 DOREEN (obstructive sleep apnea) [G47.33] 08/03/2023 Incomplete bladder emptying [R33.9] 10/11/2023 History of urethral stricture [Z87.448] 10/25/2023 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] 11/25/2023 Encounter Status:Closed by JUNE CASTELLANO on 07/28/24 [facility] 07-27-20[facility] -- GEORGIE ELIZABETH ([id number]) 1970 M Date Time Provider Department 07/27/24 GUNNAR PATEL During your visit today, we recorded the following information about you: Gunnar Patel, [facility] 07/27/2024 1:27 PM Signed [facility] Ambulatory Pharm[facility] Anticoagulation Clinic Anticoagulation Episode Summary Anticoagulation Care Providers Provider Role Specialty Phone number Saurav Bob MD Referring Internal Medicine [phone] Georgie Elizabeth is a 54 year old year old male patient being evaluated today for a Telemanagement visit. Patient is currently on the following anticoagulant(s) Warfarin and Enoxaparin. Labs PT INR (no units) Date Value 10/04/2023 2.0 07/11/2023 2.8 johanna per pt 01/26/2023 4.8 (self-reporting) INR (POCT) (no units) Date Value 07/20/2024 1.0 INR Home CoaguChek (no units) Date Value 07/27/2024 2.7 07/25/2024 1.9 07/07/2024 4.0 Hemoglobin (g/dL) Date Value 07/20/2024 14.9 08/05/2015 14.6 Hematocrit (%) Date Value 07/20/2024 46.0 08/05/2015 43.7 Platelet Count (k/uL) Date Value 07/20/2024 308 08/05/2015 327 Creatinine (mg/dL) Date Value 07/20/2024 0.83 05/24/2024 0.76 02/25/2024 0.90 08/05/2015 1.09 08/05/2015 1.03 02/17/2015 0.99 Bilirubin, Total (mg/dL) Date Value 05/24/2024 1.5 08/05/2015 0.8 ALT (U/L) Date Value 05/24/2024 33 08/05/2015 34 AST (U/L) Date Value 05/24/2024 27 08/05/2015 23 Estimated Creatinine Clearance: 141.6 mL/min (based on SCr of 0.83 mg/dL). ALLERGIES Allergen Reactions Codeine Mental Status Change Gluten GI Upset Sulfa Drugs [Sulfa * Myalgia Indication for Warfarin: Mechanical heart valve present 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 History of mitral valve replacement with mechanical valve Anticoagulation Episode Summary Current INR goal: 2.5-3.5 Assessment: INR result of 2.7 is therapeutic Indication for parenteral anticoagulant: Bridging therapy Parenteral anticoagulant supply: ? injections Is hgb, hct, plt stable?: Not assessed Plan: Current Warfarin Dosing As of 07/27/2024 Full warfarin instructions: 10 mg every Wed, e, Martha; 12.5 mg all other days Left voice message and sent [employer] Advised patient to continue current weekly dose as noted above Parenteral anticoagulant dose to take: Stop Next home INR check scheduled on 08/10/2024 Patient advised to call the PAC with any medication changes, bleeding/bruising concerns, recent changes in vitamin k consumption, if any procedures are coming up, if they have been ill or in the hospital, and if they have missed any doses of warfarin. Gunnar Patel [facility] Clinical Pharmacist, Pharmacy Anticoagulation Clinic Pharmacy Anticoagulation Clinic Pager: [phone] . Cristine Haines RPh 08/10/2024 3:27 PM Signed Patient was due to test INR today. Will continue to monitor for results. Follow up in one week if no results received. Patient's INR Goal range is - 2.5-3.5 PT INR (no units) Date Value 10/04/2023 2.0 07/11/2023 2.8 johanna per pt 01/26/2023 4.8 (self-reporting) INR (POCT) (no units) Date Value 07/20/2024 1.0 INR Home CoaguChek (no units) Date Value 07/27/2024 2.7 07/25/2024 1.9 07/07/2024 4.0 Patient is in titration phase - No Patient has dosing provided until next INR - Yes Patient is on an injectable anticoagulant - No Cristine Haines lucy Allergies As of Date: 07/27/2024 Noted Allergy Reaction CODEINE 10/30/2013 1 - Mental Status Change GLUTEN 07/20/2024 8 - GI Upset SULFA DRUGS (SULFA (SULFONAMIDE A*04/21/2023 17 - Myalgia Date Reviewed: 07/24/2024 Reviewed by: Gayathri Sky PA-C - Fully Assessed Reason for Visit: Anticoagulation Telephone Fu [148] Cmt: Home INR Primary Visit Diagnosis: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] Other Visit Diagnoses:senior care (current) use of anticoagulants [Z79.01] History of mitral valve replacement with mechanical valve [Z95.2] Prescriptions as of 08/10/2024 - Chlorhexidine Gluconate (PERIDEX) 0.12 % solution - LORazepam (ATIVAN) 0.5 mg - enoxaparin (LOVENOX) 120 mg/0.8 mL injection Inject 0.7mL (105mg) under the skin every 12 hours or as directed by the Coumadin Clinic - metoprolol succinate ER (TOPROL XL) 50 mg 24 hr tablet Take 1 tablet by mouth once daily. - dicyclomine (BENTYL) 10 mg capsule Take 1 capsule by mouth three times a day as needed (for abdominal pain). - pantoprazole DR (PROTONIX) 40 mg tablet Take 1 tablet by mouth once daily. On empty stomach at least 30 minutes before eating. - coenzyme Q10 (CO Q-10) 100 mg cap capsule Take 1 capsule by mouth once daily. - warfarin (COUMADIN) 10 mg tablet Take 15 mg every Wed, Wed; 12.5 mg all other days or as directed by anticoagulation clinic. (Takes with 5 mg tablets) - warfarin (COUMADIN) (more content not included)... Normal [facility]25-20[facility] -- GEORGIE ELIZABETH ([id number]) 1970 M Date Time Provider Department 07/25/24 GUNNAR PATEL During your visit today, we recorded the following information about you: [facility] 11:40 AM Signed [facility] Ambulatory Pharmacy Anticoagulation Clinic Anticoagulation Episode Summary Anticoagulation Care Providers Provider Role Specialty Phone number Saurav Bob MD Referring Internal Medicine [phone] Georgiegraham Elizabeth is a 54 year old year old male patient being evaluated today for a Telemanagement visit. Patient is currently on the following anticoagulant(s) Warfarin and Enoxaparin. Labs PT INR (no units) Date Value 10/04/2023 2.0 07/11/2023 2.8 johanna per pt 01/26/2023 4.8 (self-reporting) INR (POCT) (no units) Date Value 07/20/2024 1.0 INR Home CoaguChek (no units) Date Value 07/25/2024 1.9 07/07/2024 4.0 06/15/2024 3.0 Hemoglobin (g/dL) Date Value 07/20/2024 14.9 08/05/2015 14.6 Hematocrit (%) Date Value 07/20/2024 46.0 08/05/2015 43.7 Platelet Count (k/uL) Date Value 07/20/2024 308 08/05/2015 327 Creatinine (mg/dL) Date Value 07/20/2024 0.83 05/24/2024 0.76 02/25/2024 0.90 08/05/2015 1.09 08/05/2015 1.03 02/17/2015 0.99 Bilirubin, Total (mg/dL) Date Value 05/24/2024 1.5 08/05/2015 0.8 ALT (U/L) Date Value 05/24/2024 33 08/05/2015 34 AST (U/L) Date Value 05/24/2024 27 08/05/2015 23 Estimated Creatinine Clearance: 141.6 mL/min (based on SCr of 0.83 mg/dL). 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 injections Is hgb, hct, plt stable?: Not assessed Plan: Current Warfarin Dosing As of 07/25/2024 Full warfarin instructions: 07/25: 12.5 mg; Otherwise 10 mg every Wed, Wed, Wed; 12.5 mg all other days Called and spoke to patient/caregiver Advised patient to 12.5 mg TuWed (07/25 AND 07/26) Parenteral anticoagulant dose to take: 105 mg sq Q 12 hours Next home INR check scheduled on 07/27/2024 Patient verbalizes understanding of the plan. Patient denies need for refills. Patient advised to call the PAC with any medication changes, bleeding/bruising concerns, recent changes in vitamin k consumption, if any procedures are coming up, if they have been ill or in the hospital, and if they have missed any doses of warfarin. Next Action for Anticoag Management: TM 07/27 Gunnar Patel [facility] Clinical Pharmacist, Pharmacy Anticoagulation Clinic Pharmacy Anticoagulation Clinic Pager: [phone] . Allergies As of Date: 07/25/2024 Noted Allergy Reaction CODEINE 10/30/2013 1 - Mental Status Change GLUTEN 07/20/2024 8 - GI Upset SULFA DRUGS (SULFA (SULFONAMIDE A*04/21/2023 17 - Myalgia Date Reviewed: 07/24/2024 Reviewed by: Gayathri Sky PA-C - Fully Assessed Reason for Visit: Anticoagulation Telephone Fu [148] Cmt: Home INR Primary Visit Diagnosis: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] Other Visit Diagnoses: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 [Z79.01] History of mitral valve replacement with mechanical valve [Z95.2] Prescriptions as of 07/25/2024 - enoxaparin (LOVENOX) 120 mg/0.8 mL injection Inject 0.7mL (105mg) under the skin every 12 hours or as directed by the Coumadin Clinic - metoprolol succinate ER (TOPROL XL) 50 mg 24 hr tablet Take 1 tablet by mouth once daily. - dicyclomine (BENTYL) 10 mg capsule Take 1 capsule by mouth three times a day as needed (for abdominal pain). - pantoprazole DR (PROTONIX) 40 mg tablet Take 1 tablet by mouth once daily. On empty stomach at least 30 minutes before eating. - coenzyme Q10 (CO Q-10) 100 mg cap capsule Take 1 capsule by mouth once daily. - warfarin (COUMADIN) 10 mg tablet Take 15 mg every Mon, Wed; 12.5 mg all other days or as directed by anticoagulation clinic. (Takes with 5 mg tablets) - warfarin (COUMADIN) 5 mg tablet Take 15 mg every Mon, Wed; 12.5 mg all other days or as directed by anticoagulation clinic. (Takes with 10 mg tablets) - rosuvastatin (CRESTOR) 20 mg tablet Take 1 tablet by mouth once daily. - CPAP/BIPAP/OTHER Type .CPAPSettings into a note to see current settings/supplies/DME information. - enoxaparin (LOVENOX) 120 mg/0.8 mL injection Inject 120 mg subcutaneously. - CPAP/BIPAP/OTHER Continue ASV with current settings of EPAP 5 cm H2O with PS 4-12 cmH2O. (more content not included)... Normal [facility] Basic metabolic 2000 panelon 07-20-2024 Anion gap [Moles/Vol] 11 mmol/L Normal 8-15 [facility] Comment on above: Order Comment: Speci men Type: BLOOD SPECIMEN Ordering Facility: [facility] Address: [address] [address] Performed By: #### P SAS1 #### [facility] CLIA [id number] [address] [place] [address] [place] Calcium [Mass/Vol] 9.6 mg/dL Normal 8.5-10.2 [facility] Comment on above: Order Comment: Speci men Type: BLOOD SPECIMEN Ordering Facility: [facility] Address: [address] [address] Performed By: #### P SAS1 #### [facility] CLIA [id number] [address] [place] [address] [place] Chloride [Moles/Vol] 103 mmol/L Normal 98-107 [facility] Comment on above: Order Comment: Speci men Type: BLOOD SPECIMEN Ordering Facility: [facility] Address: [address] [address] Performed By: #### P SAS1 #### [facility] CLIA [id number] [address] [place], [place] [id number] [place] CO2 [Moles/Vol] 24 mmol/L Normal 22-30 [facility] Comment on above: Order Comment: Speci men Type: BLOOD SPECIMEN Ordering Facility: [facility] Address: [address] [address] Performed By: #### P SAS1 #### [facility] CLIA [id number] [address] [id number] [place] Creatinine [Mass/Vol] 0.83 mg/dL Normal 0.73-1.22 [facility] Comment on above: Order Comment: Cecilia lobato Type: BLOOD SPECIMEN Ordering Facility: [facility] Address: [address] [place] [address] Performed By: #### P SAS1 #### [facility] CLIA [id number] [facility] [place] [address] [place] Creatinine and Glomerular filtration rate.predicted panel (S/P/Bld) 104 mL/min/1.73m??? Normal >=60 [facility] Comment on above: Order Comment: Cecilia lobato Type: BLOOD SPECIMEN Ordering Facility: [facility] Address: [facility] [place] [address] Result Comment: Matilda mated Glomerular Filtration Rate (eGFR) is calculated using the 2020 CKD-EPI creatinine equation. This equation utilizes serum creatinine, sex, and age as parameters. The creatinine assay has traceable calibration to isotope dilution-mass spectrometry. Refer to KDIGO guidelines for clinical interpretation. In patients with unstable renal function, e.g. those with acute kidney injury, the eGFR may not accurately reflect actual GFR. Performed By: #### P SAS1 #### [facility] CLIA [id number] [facility] [place] [id number] [place] Glucose [Mass/Vol] 99 mg/dL Normal 74-99 [facility] Comment on above: Order Comment: Speci men Type: BLOOD SPECIMEN Ordering Facility: [facility] Address: [address] [facility] [address] [place] [address] Result Comment: The [place] Diabetes Association (ADA) provides guidance for cutoff values for fasting glucose and random glucose. The ADA defines fasting as no caloric intake for at least 8 hours. Fasting plasma glucose results between 100 to 125 mg/dL indicate increased risk for diabetes (prediabetes). Fasting plasma glucose results greater than or equal to 126 mg/dL meet the criteria for diagnosis of diabetes. In the absence of unequivocal hyperglycemia, results should be confirmed by repeat testing. In a patient with classic symptoms of hyperglycemia or hyperglycemic crisis, random plasma glucose results greater than or equal to 200 mg/dL meet the criteria for diagnosis of diabetes. Reference: Standards of Medical Care in Diabetes 2016, [place] Diabetes Association. Diabetes Care. 2016.39(Suppl 1). Performed By: #### P SAS1 #### [facility] CLIA [id number] [facility] [place] [address] [place] [place] Potassium [Moles/Vol] Normal [facility] Comment on above: Order Comment: Speci men Type: BLOOD SPECIMEN Ordering Facility: [facility] Address: [address] [place] [address] Result Comment: Unab le to assay due to interference from hemolysis. Suggest reorder as clinically indicated. Performed By: #### P SAS1 #### [facility] CLIA [id number] [address] [place] [address] [place] Sodium [Moles/Vol] 138 mmol/L Normal 136-144 [facility] Comment on above: Order Comment: Cecilia lobato Type: BLOOD SPECIMEN Ordering Facility: [facility] Address: [address] [facility] [place] [address] Performed By: #### P SAS1 #### [facility] CLIA [id number] [facility] [place] [address] [place] Urea nitrogen [Mass/Vol] 12 mg/dL Normal 9-24 [facility] Comment on above: Order Comment: Cecilia lobato Type: BLOOD SPECIMEN Ordering Facility: [facility] Address: [address] [place] [address] Performed By: #### P SAS1 #### [facility] CLIA [id number] [facility] [place] [id number] [place] CARD CATH DIAGNOSTICon 07-20 CARD CATH DIAGNOSTIC Site Id: [facility] Lab #: [facility] [employer]VI [employer] Supervisor 3 Study Date: 07/20/2024 Start Time: 07/20/2024 10:51:28 AM End Time: 07/20/2024 12:15:52 PM Physician Name Roberto Whitehead M.D., Ravi M.D. Nursing/Tech Chavez Nava R.N., C R.N. Johnson, K. R.N. + + PATIENT INFORMATION + + Name: MR. GEORGIE ELIZABETH : 1970 Age: 54 years Gender: M Height: 76 in / 194 cm Weight: 251.32 lb / 114.00 kg BMI: 30.29 kg/m BSA: 2.45 m Allergies: YES : see epic + -----+ CLINICAL HISTORY/INDICATION(s) + -----+ Mid Risk (5-10% Ischemia on Stress SPECT/PET Induced 1 seg WMA on SE/CMR) Symptomatic; AUC score = 7. CAD Presentation: Symptoms Likely to be Ischemic Angina Classification (within 2 weeks): CCS II Anti-Angina Meds (within 2 weeks): Yes. No Heart Failure No Cardiomyopathy - No LV Dysfunction Pre-Op Evaluation before Non-Card Surg: No Cardiogenic Shock: No Cardiac Arrest: No 54 year old M hx central sleep apnea, HTN, HLD, HCM s/p MV repair [place] 01/2013, but residual elevated gradients postop so underwent redo 11/20/13 with 27/29 OnX [facility] mitral valve. Presents for LHC +/- PCI after abnormal stress with atypical chest symptoms Access Point Sheath Size Hemostasis Method Right Radial Artery 6F Short Radial TR band + + DIAGNOSTIC FINDINGS + + Coronary Anatomy: Right Dominant Injection Site(s): Coronary Artery LMT: The LMT is normal. Additional Comment: The Lm is a large vessel that gives rise to the LAD and LCX. No significant disease. LAD: The LAD has mild luminal irregularities. Additional Comment: The LAD is a large caliber vessel that gives rise to a fan of septal perforators , a large diagonal 1 branch, and moderate diagonal branch before wrapping around the apex. Mild luminal irregularities in the mid to distal LAD. LCX: The Circumflex is normal. Additional Comment: The LCX is a large caliber vessel that gives rise to a large OM1 branch before continuing in the AV groove. RAMUS: The Ramus is Absent. RCA: RCA is normal. Additional Comment: The RCA is a large caliber dominant vessel. No significant disease. +-------+ IMAGING +-------+ Intravascular imaging not performed. + + HEMODYNAMIC INTERROGATION + + Hemodynamic interrogation not performed. + + HEMODYNAMICS + + General: LV 110.00/10.00 ASC AO 105.00/75.00 + + HEMODYNAMIC CONDITIONS (SENSIS ENTERED): + + Valve Gradients: Condition # 1 Valve AORTIC Mean Gradient 6 mmHg Period 17.7 sec/min Sample Number 2 SEP or DFP 230 msec Site 1 20 Site 2 22 Oximetry: # Site O2-Saturation O2-Cont. Sample Time PO2 Cardiac Outputs: Vascular Resistance: Systolic Area Index (JAMEEL): + + IMPRESSION/PLAN + + Impression:Mild nonobstructive coronary disease. No significant aortic valve gradient on pullback. Recommended Treatment: Medical Therapy. Plan: Continue medical therapy + ---------+ ADVERSE OUTCOME(s)/COMPLICATION(s) + ---------+ None + -----+ PROCEDURAL & TECHNICAL DETAILS + -----+ PROCEDURE SEQUENCE: Time Procedure Performed 07/20/2024 11:07:21 AM Left Heart Cath PROCEDURE DETAILS: Contrast: Contrast Type Total Infused Omnipaque 150ml 70 Blood Loss: < 30ml Specimen: No Specimen Obtained RADIATION: Procedure performed under Fluoroscopic Guidance Total Dose Dose Area Product Total Exposure Time 696.89 mGy 58.53 Gy*cm 846.48 sec + + MEDICAL HISTORY + + Left Ventricle EF: LVEF 55, last assessed on 05/19/24, by Echo. Physician Intra Service Procedure Start Time: 07/20/2024 11:01:00 AM Physician Intra Service Procedure End Time: 07/20/2024 12:15:52 PM Attending Physician Presence Attestation: Entire Procedure Electronically submitted by: Grace Rhoades MD On: 07/21/2024 at 12:03:28 PM Final CC IS [employer] Image : [id number] See Link below for Image Normal [facility] CBC panel Auto (Bld)on 07-20 Erythrocyte distribution width (RBC) [Ratio] 13.5 % Normal 11.5-15.0 [facility] Comment on above: Order Comment: Speci men Type: BLOOD SPECIMEN Ordering Facility: [facility] Address: [address] [place] [address] Performed By: #### 5 8410-2 #### [facility] CLIA [id number] [address] [place] [address] [place] Hematocrit (Bld) [Volume fraction] 46.0 % Normal 39.0-51.0 [facility] Comment on above: Order Comment: Speci men Type: BLOOD SPECIMEN Ordering Facility: [facility] Address: [address] [place] [address] Performed By: #### 5 8410-2 #### [facility] CLIA [id number] [address] [place] [address] [place] Hemoglobin (Bld) [Mass/Vol] 14.9 g/dL Normal 13.0-17.0 [facility] Comment on above: Order Comment: Speci men Type: BLOOD SPECIMEN Ordering Facility: [facility] Address: [address] [place] [address] Performed By: #### 5 8410-2 #### [facility] CLIA [id number] [address] [place] [address] [place] MCH (RBC) [Entitic mass] 26.7 pg Normal 26.0-34.0 [facility] Comment on above: Order Comment: Speci men Type: BLOOD SPECIMEN Ordering Facility: [facility] Address: [address] [place] [address] Performed By: #### 5 8410-2 #### [facility] CLIA [id number] [address] [place] [address] [place] MCHC (RBC) [Mass/Vol] 32.4 g/dL Normal 30.5-36.0 [facility] Comment on above: Order Comment: Speci men Type: BLOOD SPECIMEN Ordering Facility: [facility] Address: [address] [place] [address] Performed By: #### 5 8410-2 #### [facility] CLIA [id number] [address] [place] [address] [place] MCV (RBC) [Entitic vol] 82.4 fL Normal 80.0-100.0 [facility] Comment on above: Order Comment: Speci men Type: BLOOD SPECIMEN Ordering Facility: [facility] Address: [address] [place] [address] Performed By: #### 5 8410-2 #### [facility] CLIA [id number] [address] [place] [address] [place] Nucleated RBC (Bld) [#/Vol] 10*3/uL Normal <0.01 [facility] Comment on above: Order Comment: Speci men Type: BLOOD SPECIMEN Ordering Facility: [facility] Address: [address] [place] [address] Performed By: #### 5 8410-2 #### [facility] CLIA [id number] [address] [place] [address] [place] Platelet mean volume (Bld) [Entitic vol] 9.1 fL Normal 9.0-12.7 [facility] Comment on above: Order Comment: Speci men Type: BLOOD SPECIMEN Ordering Facility: [facility] Address: [address] [place] [address] Performed By: #### 5 8410-2 #### [facility] CLIA [id number] [address] [place] [address] [place] Platelets (Bld) [#/Vol] 308 10*3/uL Normal 150-400 [facility] Comment on above: Order Comment: Speci men Type: BLOOD SPECIMEN Ordering Facility: [facility] Address: [address] [place] [address] Performed By: #### 5 8410-2 #### [facility] CLIA [id number] [address] [place] [address] [place] RBC (Bld) [#/Vol] 5.58 10*6/uL Normal 4.20-6.00 [facility] Comment on above: Order Comment: Speci men Type: BLOOD SPECIMEN Ordering Facility: [facility] Address: [address] [place] [address] Performed By: #### 5 8410-2 #### [facility] CLIA [id number] [address] [place] [address] [place] WBC (Bld) [#/Vol] 4.65 10*3/uL Normal 3.70-11.00 [facility] Comment on above: Order Comment: Speci men Type: BLOOD SPECIMEN Ordering Facility: [facility] Address: [address] [place] [address] Performed By: #### 5 8410-2 #### [facility] CLIA [id number] [address] [place] [address] [place] ECG COMPLETEon 07-20-2024 ECG COMPLETE Ventricular Rate : 7 5 BPM Atrial Rate : 75 BPM P-R Interval : 244 ms QRS Duration : 160 ms Q-T Interval : 418 ms QTC Calculation(Bazett) : 466 ms Calculated P Pacific : 51 degrees Calculated R Pacific : -2 degrees Calculated T Pacific : 161 degrees SINUS RHYTHM WITH 1ST DEGREE AV BLOCK COMPLETE LEFT BUNDLE BRANCH BLOCK ABNORMAL ECG Confirmed by MD ROJAS HEBA ([id number]) on 08/07/2024 7:10:24 PM NAME : GEORGIE ELIZABETH PID : [id number] : 1970 Gender : Male Race : ORD : [id number] Procedure Date : Jul 20 2024 09:21:52 Edit Date : Aug 07 2024 19:10:29 Diagnosis: SINUS RHYTHM WITH 1ST DEGREE AV BLOCK COMPLETE LEFT BUNDLE BRANCH BLOCK ABNORMAL ECG Confirmed by MD ROJAS HEBA ([id number]) on 08/07/2024 7:10:24 PM Test Reason : 921 Location : 23 : [id number] Overread By : MD ROJAS HEBA Edited By : MD ROJAS HEBA Referred By : , Acquired by : [id number], Normal [facility] TYPE + SCREENon 07-20-2024 ABO A Normal [facility] Comment on above: Order Comment: Speci men Type: BLOOD SPECIMENOrdering Facility: [facility] Address: [address] [place] [address] Performed By: #### T SCR ####[facility] BANKCLIA [id number] [address] Rh Nom (Bld) Positive Normal [facility] Comment on above: Order Comment: Speci men Type: BLOOD SPECIMENOrdering Facility: [facility] Address: [address] [place] [address] Performed By: #### T SCR ####[facility] BLOOD BANKCLIA [id number] [address] TYPE AND SCREEN EXPIRATION 07/23/2024 23:59 Normal [facility] Comment on above: Order Comment: Speci men Type: BLOOD SPECIMENOrdering Facility: [facility] Address: [address] [place] [address] Performed By: #### T SCR ####[facility] BLOOD BANKCLIA [id number] [address] CNPDaria 07-19-2024 MANDYN Telephone (PATRICIA) -- GEORGIE ELIZABETH ([id number]) 1970 M Date Time Provider Department 07/19/24 GRACE RHOADES During your visit today, we recorded the following information about you: Sariah Jeffery, RN 07/19/2024 2:05 PM Signed CARDIOVASCULAR LAB INSTRUCTIONS: Readiness to Learn: Cognitive Ability: Alert and oriented Motivation To Learn: Interested Family/Significant Other Support: Unable to assess - Family not present Instruction Provided To: Patient Patient Learns Best By: Verbal Instruction Factors Affecting Learning: None Physical Limitations Affecting Learning: None Learning Response: Procedure: Diagnostic Cath with Intervention Pre procedure education topics: Arrival time/NPO Status/Medications/Travel Instructions/Restrictions Patient/Family Response Evaluation: Verbalizes understanding Follow Up Plan and Medication: As directed by physician Instruction/Supplemental Material Given: Cardiac catheterization instructions, procedure information, hospital information, hotel information. Instructed By Sariah Jeffery RN. In Department of CARDIOLOGY. Allergies As of Date: 07/19/2024 Noted Allergy Reaction CODEINE 10/30/2013 1 - Mental Status Change SULFA DRUGS (SULFA (SULFONAMIDE A*04/21/2023 17 - Myalgia Date Reviewed: 07/12/2024 Reviewed by: Roz Jalloh RN - Fully Assessed Reason for Visit: Patient Education [91] Prescriptions as of 07/19/2024 - enoxaparin (LOVENOX) 120 mg/0.8 mL injection Inject 0.7mL (105mg) under the skin every 12 hours or as directed by the [facility]mad[facility] Clinic - metoprolol succinate ER (TOPROL XL) 50 mg 24 hr tablet Take 1 tablet by mouth once daily. - dicyclomine (BENTYL) 10 mg capsule Take 1 capsule by mouth three times a day as needed (for abdominal pain). - pantoprazole DR (PROTONIX) 40 mg tablet Take 1 tablet by mouth once daily. On empty stomach at least 30 minutes before eating. - coenzyme Q10 (CO Q-10) 100 mg cap capsule Take 1 capsule by mouth once daily. - warfarin (COUMADIN) 10 mg tablet Take 15 mg every Mon, Wed; 12.5 mg all other days or as directed by anticoagulation clinic. (Takes with 5 mg tablets) - warfarin (COUMADIN) 5 mg tablet Take 15 mg every Mon, Wed; 12.5 mg all other days or as directed by anticoagulation clinic. (Takes with 10 mg tablets) - rosuvastatin (CRESTOR) 20 mg tablet Take 1 tablet by mouth once daily. - CPAP/BIPAP/OTHER Type .CPAPSettings into a note to see current settings/supplies/DME information. - enoxaparin (LOVENOX) 120 mg/0.8 mL injection Inject 120 mg subcutaneously. - CPAP/BIPAP/OTHER Continue ASV with current settings of EPAP 5 cm H2O with PS 4-12 cmH2O. Lifetime supplies for ASV, including patient preferred mask, head gear, heated tubing, humidity, filters, chin strap. Dx: Obstructive Sleep Apnea G47.33 DME: ROSEMARIE - aspirin 81 mg chewable tablet Take 1 tablet by mouth once daily. - Melatonin 5 mg tab Take by mouth as needed. - ACETAMINOPHEN (TYLENOL EXTRA STRENGTH ORAL) Take by mouth as needed. Problem List As Of Date 07/19/2024 Noted Resolved Pre-op testing [Z01.818] 11/01/2013 11/16/2013 History of cardiomyopathy [Z86.79] 11/01/2013 Mitral valve regurgitation [I34.0] 11/01/2013 11/16/2013 Cardiac insufficiency (HCC) [I50.9] 11/13/2013 11/14/2013 Stress hyperglycemia [R73.9] 11/13/2013 11/16/2013 Postoperative pain [G89.18] 11/13/2013 11/22/2013 LBBB [I44.7] 11/13/2013 Hypotension [I95.9] 11/13/2013 11/16/2013 Atelectasis [J98.11] 11/15/2013 04/29/2020 Fluid overload [E87.70] 11/15/2013 11/16/2013 Central sleep apnea treated with adaptive servo*11/15/2013 Urethral stricture [N35.919] 11/15/2013 11/16/2013 SUMMARY [V999.95] 11/16/2013 04/29/2020 Hypertension [I10] 11/16/2013 Pericardial effusion [I31.39] 11/17/2013 11/22/2013 Hypovolemia [E86.1] 11/20/2013 11/22/2013 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] 11/21/2013 Anemia [D64.9] 11/21/2013 04/29/2020 Epistaxis [R04.0] 11/27/2013 04/29/2020 Subtherapeutic international normalized ratio (*12/08/2013 04/29/2020 Abdominal pain [R10.9] 12/08/2013 04/29/2020 Elevated LFTs [R79.89] 12/08/2013 04/29/2020 Stricture, urethra [N35.919] 12/10/2014 04/29/2020 Lightheadedness [R42] 08/05/2015 04/29/2020 Mitral stenosis [I05.0] senior care (current) use of anticoagulants [Z79.* Overweight (BMI 25.0-29.9) [E66.3] 03/01/2019 History of mitral valve replacement with mechan*12/21/2022 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 Normal [facility] Urgent Care Visit Reporton 0 07-18-2024 Urgent Care Visit Report [facility] [address], [address] [place] [id number] OFFICE VISIT Date of Service: 07/18/24 MR#: [id number] Acct: [id number] Name: GEORGIE ELIZABETH Rep #: [id number] : 1970 Provider: RADHA Moreau Age/Sex: 54/M Location: [facility] Status: Signed Intake Vital Signs 07/07/24 08:01 07/18/24 14:20 07/18/24 14:37 Height 6 ft 4 in 6 ft 4 in 6 ft 4 in Weight: 254 lb BMI 30.9 BP 100/60 Blood Pressure Location Lt brachial Position Sitting Respiration 12 Pulse 77 Pulse Source Monitor Temp 98.3 F Temp Source Temporal Pulse Oximetry (%) 99 Oxygen Delivery Method room air Intake Visit Reasons: REMOVE STITCHES FROM R THUMB Art Consultant Required: No Accompanied by: Self Is patient in pain?: No Allergies Sulfa (Sulfonamide Antibiotics) Allergy (Verified 07/18/24 14:32) PT UNSURE OF REACTION codeine Adverse Reaction (Verified 07/18/24 14:32) Other Medications ???Medication ???Instructions ???Recorded ???Confirmed ???Type rosuvastatin 20 mg tablet 20 mg PO DAILY 02/18/20 07/18/24 H istory melatonin 10 mg tablet 10 mg PO QHS 01/01/22 07/18/24 His tory aspirin 81 mg capsule 81 mg PO DAILY 06/04/24 07/18/24 H istory coenzyme Q10 100 mg capsule (Co 100 mg PO DAILY 06/04/24 07/18/24 History Q-10) dicyclomine 10 mg capsule 10 mg PO TID 06/04/24 07/18/24 His tory metoprolol succinate 50 mg 50 mg PO DAILY 06/04/24 07/18/24 H istory tablet,extended release 24 hr pantoprazole 40 mg tablet,delayed 40 mg PO DAILY 06/04/24 07/18/24 History release (Protonix) warfarin 10 mg tablet (Jantoven) 10 mg PO SUTH 06/04/24 07/18/24 Hi story warfarin 5 mg tablet (Jantoven) 12.5 mg PO MOTUWEFRSA 06/04/24 History lorazepam 0.5 mg tablet (Ativan) 0.5 mg PO BID PRN anxiety 06/05/24 07/18/24 History PFSH Medical History Obesity (BMI 30.0-34.9) Chronic anticoagulation Hypertrophic obstructive cardiomyopathy High cholesterol Easy bruising Excessive bleeding Gastric reflux Non-smoker Sleep apnea History of echocardiogram History of stress test Cardiology follow-up encounter History of irregular heartbeat History of ureteral obstruction Hypercholesteremia 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 Surgical History H/O mitral valve replacement with mechanical valve History of ureter repair History of cardiac catheterization History of open heart surgery History of ventricular septal myectomy S/P MVR (mitral valve replacement) Hx of colonoscopy History of tonsillectomy and adenoidectomy Family History Sister Colon cancer Father CAD (coronary artery disease) Myocardial infarction Social History (Updated 07/18/24 @ 14:32 by Jesusita Keller) Smoking Status: Never smoker alcohol intake: never HPI HPI Details: GEORGIE ELIZABETH, is a 54 M who presents to the office today for follow-up status post right thumb laceration while at work on 07/07/2024. Patient notes having metal shelving fall from above causing a direct blow to the right volar thumb, therefore suffering laceration therefore reporting to [facility] ED same day for x 3 SI sutures were placed and released same day. He notes he is essentially symptom-free at this time requesting to have all sutures removed at this time. No other complaints at this time. ROS Const Constitutional: No other (As above) Exam Const General: cooperative, healthy appearing and no acute distress Nutritional Appearance: average body habitus Orientation: alert and awake Resp Effort Inspection: normal respiratory effort and able to speak in complete sentences Cardio Rate: regular rate Pulses: radial pulses present Skin General: no rashes or lesions noted Trauma: laceration (R thumb: X 3 SI sutures removed wound well healed w/o sequelae) Neuro General: patient alert and patient awake Cognition: normal cognition Speech: speech normal Extrem General: normal to inspection Psych Appearance: grossly normal Mental Status: mental status grossly normal Mood: congruent mood Affect: normal affect Speech and Movement: speech and movement normal Attitude: cooperative Coding Level of Care Code Off vis,new,level 2 Diagnoses Finger laceration S61.219A Assessment and Plan Assessment and Plan (1) Finger laceration: Status: Inactive Plan: - to R thumb He was 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 As a result this case was reviewed with durable medical equipment technician wes/dom[place] 17 releasing patient back to work without restrictions effecti (more content not included)... Normal [facility] CNPDaria 07-13-2024 CNPN Telephone (PHARMN) -- GEORGIE ELIZABETH ([id number]) 1970 M Date Time Provider Department 07/13/24 PHARMACIST PHARMN During your visit today, we recorded the following information about you: Meseret ([employer] Piping Designer)Brandon 07/13/2024 10:14 AM Signed Jackelin with Dr. Cortes's office called to let us know patient is to have a left heart cath procedure 07/20/2024. Will route to [facility] at this time to finalize a plan for the patient. Brandon Carl ([employer] Piping Designer) Harini Cesar [facility] 07/13/2024 11:[address] Vasquez, can you please let us know how long you would like him to hold (if at all) prior to the heart cath on 07/20? Thanks, Harini Cesar, [facility] Harini Cesar [facility] 07/13/2024 2:46 PM Signed Janae Cortes MD You1 hour ago (12:36 PM) Let's please plan on 5 days, in the event for some reason they need a femoral approach. Thank you. [facility] Anticoagulation Perioperative Planning Georgie Elizabeth is an 54 year old male being evaluated today for perioperative planning. Indication for anticoagulation: Valve - On-X mitral valve in 2013. INR goal: 2.5-3.5 Referring physician: Saurav Bob Current anticoagulant: Warfarin Procedure: heart cath on 07/20/24 Procedural bleeding risk (see [facility] appendix): Moderate Patient bleeding story: No Thrombosis risk: High Weight: Last 1 Encounter Wt Readings: Date: Wt: 05/19/2024 108.9 kg (240 lb) ALLERGIES Allergen Reactions Codeine Mental Status Change Sulfa Drugs [Sulfa * Myalgia Patient with history of HIT: No CBC/ PLT: Hemoglobin (g/dL) Date Value 05/24/2024 16.0 02/25/2024 15.3 08/03/2023 14.8 08/05/2015 14.6 08/05/2015 14.1 02/17/2015 12.2 Hematocrit (%) Date Value 05/24/2024 48.9 02/25/2024 46.6 08/03/2023 44.8 08/05/2015 43.7 08/05/2015 42.9 02/17/2015 37.8 Platelet Count Date Value Ref Range Status 05/24/2024 337 150 - 400 k/uL Final 02/25/2024 336 150 - 400 k/uL Final 08/03/2023 281 150 - 400 k/uL Final Renal function: Creatinine Date Value Ref Range Status 05/24/2024 0.76 0.73 - 1.22 mg/dL Final 02/25/2024 0.90 0.73 - 1.22 mg/dL Final 08/03/2023 0.85 0.73 - 1.22 mg/dL Final Serum creatinine: 0.76 mg/dL 05/24/24 1141 Estimated creatinine clearance: 151.5 mL/min Creatinine Clearance > 30 mL/min: Yes INR Home CoaguChek (no units) Date Value 07/07/2024 4.0 06/15/2024 3.0 06/10/2024 1.5 Current Warfarin Dosing As of 07/13/2024 Full warfarin instructions: 10 mg every Wed, Wed, Wed; 12.5 mg all other days Plan: Date Injectable medication: Lovenox Warfarin 07/14 None Last dose 07/15 None None 07/16 None None 07/17 105 mg every 12 hours None 07/18 105 mg every 12 hours None 07/19 105 mg in the morning only None 07/20 Procedure: heart cath Do not take injectable medication 12.5 mg after procedure if OK with physician doing procedure 07/21 105 mg every 12 hours 12.5 mg 07/22 105 mg every 12 hours 12.5 mg 07/23 105 mg every 12 hours 12.5 mg 07/24 105 mg every 12 hours 12.5 mg /25 105 mg every 12 hours Continue injectable medication until INR in target range INR check with biotel home meter Patient is being asked to follow the above instructions pre and post-procedure unless otherwise specified by proceduralist. Has patient used LMWH/UFH heparin before? Yes Does patient require injection technique instructions/education? No Does the patient require a new prescription for injections? Yes Send new prescription to the following pharmacy: will ask upon approval Next action for Anticoagulation Management: [facility] awaiting approval Bridge plan established and routed to the following: [facility] for approval Harini Cesar [facility] Clinical Pharmacist, Pharmacy Anticoagulation Clinic Pharmacy Anticoagulation Clinic Pager: [phone] Harini Cesar RPh 07/13/2024 4:25 PM Signed Janae Cortes MD You1 hour ago (2:49 PM) Looks great, thank you so much. Janae. The following approved medication requests have been transmitted electronically. Requested Prescriptions Signed Prescriptions Disp Refills enoxaparin (LOVENOX) 120 mg/0.8 mL injection 20 Each 1 Sig: Inject 0.7mL (105mg) under the skin every 12 hours or as directed by the Coumadin Clinic Authorizing Provider: JANAE CORTES Ordering User: HARINI CESAR Pharmacy: [facility] [address] [place] [phone] - [address] - [phone] Since his INR was high at 4.0 last week and his range is 2.5-3.5, he may test later today or tomorrow so we can give him the best advise on dosing tomorrow ahead of d/c warfarin for the procedure. Otherwise, he is aware of the plan and I will send that via [employer]. Next Action for Anti coag Management: TM INR prior to starting his bridge. Harini Cesar, [facility] Harini Cesar RP 3 (more content not included)... Normal [facility] CARDIAC PERF STRESS/PHARM on 07-12-2024 NM CARDIAC PERF STRESS/PHARM * * *Final Report* * * DATE OF EXAM: Jul 12 2024 1:49PM [facility] 0006 - [place] CARDIAC PERF STRESS/PHARM / PROCEDURE REASON: multiple diagnoses * * * * Physician Interpretation * * * * Stress [employer] Product Development Manager Report: [facility] Date of service: 07/12/2024 12:25:00 PM Supervising physician: Del Moreira MD PATIENT: Name: MR. GEORGIE ELIZABETH Age: 54 years Gender: M The supervising physician was in the department and immediately available. * * * Final * * * [facility] Name: MR. GEORGIE ELIZABETH Pt. : 1970 ID: [id number] Pt. Age: 54 years Study Type: NM CARDIAC PERF STRESS/PHARM Exam Date: 07/12/2024 Ref. Phys.: Review Date: 07/12/2024 Diag Phys: Del Moreira MD Modality: NM Indications: 43239, 03105 stress ECG History: -1 Diagnosis: Z95.2 H/O heart valve replacement or heart valve repair; R94.31 Abnormal electrocardiogram [ECG] [EKG] Impression: Summary: * * * Final * * * PATIENT: Name: MR. GEORGIE ELIZABETH Age: 54 years Gender: M CONCLUSIONS: 1. SPECT Perfusion Study: Abnormal. 2. No evidence of scarred myocardium. 3. There is mild (<10%) ischemia in the territory of the LAD. 4. Left ventricle is normal in size. The left ventricle systolic function is normal. 5. Right ventricle is normal in size. The right ventricle systolic function is normal. 6. This is a low risk scan. Gated Stress IR Gated Rest IR LVEF % 71 71 Prior Study Comparison Prior nuclear cardiology exam was performed on 01/26/2019. Mild LAD ischemia on today's study. Nuclear Med Report:1-Day Gated SPECT Myocardial Perfusion with Regadenoson Stress: Myocardial perfusion imaging was performed at rest 30 minutes following the IV injection of the radiotracer. The patient received 0.4 mg of regadenoson, via rapid IV push, immediately followed by radiotracer IV. Gated post stress tomographic imaging was performed 30 to 60 minutes later. See administered radiotracer and doses below. [facility] Date of service: 07/12/2024 12:25:00 PM Ordering Physician: JANAE CORTES. Requesting Physician: Indication: Assessment for suspected CAD Fellow: Bill Cronin MD Interpreting physician: Del Moreira MD Previous Cardiovascular Interventions: Mitral valve repair (01/2013) Diagnostic cath (10/31/2013) Myectomy (01/2013) Mitral valve repair (11/13/2013) Mitral valve replacement (11/20/2013) Height: 187.96 cm BSA: 2.38 m? Weight: 108.86 kg BMI: 30.8 kg/m? CT Dose Reduction Employed: No. Exam Type: Rest Stress Radiopharm: Tc-99m Tetrofosmin Tc-99m Tetrofosmin Dosage(mCi): 11.1 32.4 Stress Agent: Regadenoson 0.4mg Supply provided from [facility] Blood Press: 112/88 mmHg Image Quality The overall study imaging quality was deemed to be fair. FINDINGS: Stress IR Gated Stress IR Gated Rest IR LVEF: 71 % 71 % ED Volume: 121 ml 104 ml ES Volume: 35 ml 30 ml TID: 1.16 Perfusion Findings Stress IR - Summed Score=4 There is a mild perfusion defect in the mid and distal anterior wall, apical septal segment, and apical inferior segment. All remaining scored segments show normal perfusion. Rest IR - Summed Score=1 There is a mild perfusion defect in the apical anterior segment. All remaining scored segments show normal perfusion. Stress IR Rest IR Summed Score=4 Summed Score=1 LEFT VENTRICLE The left ventricle is normal in size. Left ventricular systolic function is normal. Right Ventricle The right ventricle is normal in size. Right ventricle systolic function is normal. Stress Test Findings: There is no evidence of scarring. The left ventricular cavity size is unchanged with stress. * * * Final * * * Stress ECG Report: [facility] Date of service: 07/12/2024 12:25:00 PM Ordering physician: JANAE CORTES lean specialist: Camelia Cagle Low Heel Builder: Judy Obando Fellow: Bill Carranza MD and Jamshid Cronin MD Interpreting physician: Del Moreira MD Patient name: MR. GEORGIE ELIZABETH Age: 54 years Gender: M Height: 187.96 cm BSA: 2.38 m? Weight: 108.86 kg BMI: 30.8 kg/m? Indication: Presence of prosthetic heart valave and Abnormal resting ECG Stress ECG Conclusion: Conclusion: Non-diagnostic due to LBBB Stress ECG Summary: The patient's resting heart rate was 92 bpm and blood pressure was 112/88 mmHg. The test was terminated due to end of protocol. No symptoms provoked during stress. The maximum h (more content not included)... Normal [facility] Heart Perfusion W stress and W radionuclide Gordon 07-12-2024 * * *Final Report* * * DATE OF EXAM: Jul 12 2024 1:49PM [facility] 0006 - [place] CARDIAC PERF STRESS/PHARM / PROCEDURE REASON: multiple diagnoses * * * * Physician Interpretation * * * * Stress [employer] Product Development Manager Report: [facility] Date of service: 07/12/2024 12:25:00 PM Supervising physician: Del Moreira MD PATIENT: Name: MR. GEORGIE ELIZABETH Age: 54 years Gender: M The supervising physician was in the department and immediately available. * * * Final * * * DEFAULT [facility] Pt. Name: MR. GEORGIE ELIZABETH Pt. : 1970 ID: [id number] Pt. Age: 54 years Study Type: NM CARDIAC PERF STRESS/PHARM Exam Date: 07/12/2024 Ref. Phys.: Review Date: 07/12/2024 Diag Phys: Del Moreira MD Modality: NM Indications: 89803, 18661 stress ECG History: -1 Diagnosis: Z95.2 H/O heart valve replacement or heart valve repair; R94.31 Abnormal electrocardiogram [ECG] [EKG] Impression: Summary: * * * Final * * * PATIENT: Name: MR. GEORGIE ELIZABETH Age: 54 years Gender: M CONCLUSIONS: 1. SPECT Perfusion Study: Abnormal. 2. No evidence of scarred myocardium. 3. There is mild (<10%) ischemia in the territory of the LAD. 4. Left ventricle is normal in size. The left ventricle systolic function is normal. 5. Right ventricle is normal in size. The right ventricle systolic function is normal. 6. This is a low risk scan. Gated Stress IR Gated Rest IR LVEF % 71 71 Prior Study Comparison Prior nuclear cardiology exam was performed on 01/26/2019. Mild LAD ischemia on today's study. Nuclear Med Report:1-Day Gated SPECT Myocardial Perfusion with Regadenoson Stress: Myocardial perfusion imaging was performed at rest 30 minutes following the IV injection of the radiotracer. The patient received 0.4 mg of regadenoson, via rapid IV push, immediately followed by radiotracer IV. Gated post stress tomographic imaging was performed 30 to 60 minutes later. See administered radiotracer and doses below. [facility] Date of service: 07/12/2024 12:25:00 PM Ordering Physician: JANAE CORTES. Requesting Physician: Indication: Assessment for suspected CAD Fellow: Bill Cronin MD Interpreting physician: Del Moreira MD Previous Cardiovascular Interventions: Mitral valve repair (01/2013) Diagnostic cath (10/31/2013) Myectomy (01/2013) Mitral valve repair (11/13/2013) Mitral valve replacement (11/20/2013) Height: 187.96 cm BSA: 2.38 m Weight: 108.86 kg BMI: 30.8 kg/m CT Dose Reduction Employed: No. Exam Type: Rest Stress Radiopharm: Tc-99m Tetrofosmin Tc-99m Tetrofosmin Dosage(mCi): 11.1 32.4 Stress Agent: Regadenoson 0.4mg Supply provided from [facility] Blood Press: 112/88 mmHg Image Quality The overall study imaging quality was deemed to be fair. FINDINGS: Stress IR Gated Stress IR Gated Rest IR LVEF: 71 % 71 % ED Volume: 121 ml 104 ml ES Volume: 35 ml 30 ml TID: 1.16 Perfusion Findings Stress IR - Summed Score=4 There is a mild perfusion defect in the mid and distal anterior wall, apical septal segment, and apical inferior segment. All remaining scored segments show normal perfusion. Rest IR - Summed Score=1 There is a mild perfusion defect in the apical anterior segment. All remaining scored segments show normal perfusion. Stress IR Rest IR Summed Score=4 Summed Score=1 LEFT VENTRICLE The left ventricle is normal in size. Left ventricular systolic function is normal. Right Ventricle The right ventricle is normal in size. Right ventricle systolic function is normal. Stress Test Findings: There is no evidence of scarring. The left ventricular cavity size is unchanged with stress. * * * Final * * * Stress ECG Report: [facility] Date of service: 07/12/2024 12:25:00 PM Ordering physician: JANAE CORTES lean specialist: Camelia Cagle Low Heel Builder: Judy Obando Fellow: Bill Carranza MD and Jamshid Cronin MD Interpreting physician: Del (more content not included)... DIVISION OF RADIOLOGY Provider, [facility] - 07/12/2024 * * *Final Report* * * DATE OF EXAM: Jul 12 2024 1:49PM N 0006 - NM CARDIAC PERF STRESS/PHARM / PROCEDURE REASON: multiple diagnoses * * * * Physician Interpretation * * * * Stress [employer] Product Development Manager Report: [facility] Date of service: 07/12/2024 12:25:00 PM Supervising physician: Del Moreira MD PATIENT: Name: MR. GEORGIE ELIZABETH Age: 54 years Gender: M The supervising physician was in the department and immediately available. * * * Final * * * [facility] Name: MR. GEORGIE ELIZABETH Pt. : 1970 ID: [id number] Pt. Age: 54 years Study Type: NM CARDIAC PERF STRESS/PHARM Exam Date: 07/12/2024 Ref. Phys.: Review Date: 07/12/2024 Diag Phys: Del Moreira MD Modality: NM Indications: [id number], [id number] stress ECG History: -1 Diagnosis: Z95.2 H/O heart valve replacement or heart valve repair; R94.31 Abnormal electrocardiogram [ECG] [EKG] Impression: Summary: * * * Final * * * PATIENT: Name: MR. GEORGIE ELIZABETH Age: 54 years Gender: M CONCLUSIONS: 1. SPECT Perfusion Study: Abnormal. 2. No evidence of scarred myocardium. 3. There is mild (<10%) ischemia in the territory of the LAD. 4. Left ventricle is normal in size. The left ventricle systolic function is normal. 5. Right ventricle is normal in size. The right ventricle systolic function is normal. 6. This is a low risk scan. Gated Stress IR Gated Rest IR LVEF % 71 71 Prior Study Comparison Prior nuclear cardiology exam was performed on 01/26/2019. Mild LAD ischemia on today's study. Nuclear Med Report:1-Day Gated SPECT Myocardial Perfusion with Regadenoson Stress: Myocardial perfusion imaging was performed at rest 30 minutes following the IV injection of the radiotracer. The patient received 0.4 mg of regadenoson, via rapid IV push, immediately followed by radiotracer IV. Gated post stress tomographic imaging was performed 30 to 60 minutes later. See administered radiotracer and doses below. [facility] Date of service: 07/12/2024 12:25:00 PM Ordering Physician: JANAE CORTES. Requesting Physician: Indication: Assessment for suspected CAD Fellow: Bill Cronin MD Interpreting physician: Del Moreira MD Previous Cardiovascular Interventions: Mitral valve repair (01/2013) Diagnostic cath (10/31/2013) Myectomy (01/2013) Mitral valve repair (11/13/2013) Mitral valve replacement (11/20/2013) Height: 187.96 cm BSA: 2.38 m Weight: 108.86 kg BMI: 30.8 kg/m CT Dose Reduction Employed: No. Exam Type: Rest Stress Radiopharm: Tc-99m Tetrofosmin Tc-99m Tetrofosmin Dosage(mCi): 11.1 32.4 Stress Agent: Regadenoson 0.4mg Supply provided from [facility] Blood Press: 112/88 mmHg Image Quality The overall study imaging quality was deemed to be fair. FINDINGS: Stress IR Gated Stress IR Gated Rest IR LVEF: 71 % 71 % ED Volume: 121 ml 104 ml ES Volume: 35 ml 30 ml TID: 1.16 Perfusion Findings Stress IR - Summed Score=4 There is a mild perfusion defect in the mid and distal anterior wall, apical septal segment, and apical inferior segment. All remaining scored segments show normal perfusion. Rest IR - Summed Score=1 There is a mild perfusion defect in the apical anterior segment. All remaining scored segments show normal perfusion. Stress IR Rest IR Summed Score=4 Summed Score=1 LEFT VENTRICLE The left ventricle is normal in size. Left ventricular systolic function is normal. Right Ventricle The right ventricle is normal in size. Right ventricle systolic function is normal. Stress Test Findings: There is no evidence of scarring. The left ventricular cavity size is unchanged with stress. * * * Final * * * Stress ECG Report: [facility] Date of service: 07/12/2024 12:25:00 PM Ordering physician: JANAE CORTES lean specialist: Camelia Cagle Low Heel Builder: Judy Obando Fellow: Bill Carranza MD and Jamshid Cronin MD Interpreting physician: Del Moreira MD Patient name: MR. GEORGIE ELIZABETH Age: 54 years Gender: M Height: 187.96 cm BSA: 2.38 m Weight: 108.86 kg BMI: 30.8 kg/m Indication: Presence of prosthetic heart valave and Abnormal resting ECG Stress ECG Conclusion: Conclusion: Non-diagnostic due to LBBB Stress ECG Summary: T (more content not included)... [facility] Radiology Study observation (narrative) [facility] NM Heart Perfusion W stress and W radionuclide IVOrdered By: [facility] GEORGIE ELIZABETH ([id number]) 1970 M Date Time Provider Department 07/07/24 ALY JIMÉNEZ During your visit today, we recorded the following information about you: Aly Jiménez [facility] 07/07/2024 2:52 PM Signed [facility] Ambulatory Pharmacy Anticoagulation Clinic Anticoagulation Episode Summary Anticoagulation Care Providers Provider Role Specialty Phone number Saurav Bob MD Referring Internal Medicine [phone] Georgie Elizabeth is a 54 year old year old male patient being evaluated today for a Telemanagement visit. Patient is currently on the following anticoagulant(s) Warfarin. Labs PT INR (no units) Date Value 10/04/2023 2.0 07/11/2023 2.8 johanna per pt 01/26/2023 4.8 (self-reporting) INR Home CoaguChek (no units) Date Value 07/07/2024 4.0 06/15/2024 3.0 06/10/2024 1.5 Hemoglobin (g/dL) Date Value 05/24/2024 16.0 08/05/2015 14.6 Hematocrit (%) Date Value 05/24/2024 48.9 08/05/2015 43.7 Platelet Count (k/uL) Date Value 05/24/2024 337 08/05/2015 327 Creatinine (mg/dL) Date Value 05/24/2024 0.76 02/25/2024 0.90 08/03/2023 0.85 08/05/2015 1.09 08/05/2015 1.03 02/17/2015 0.99 Bilirubin, Total (mg/dL) Date Value 05/24/2024 1.5 08/05/2015 0.8 ALT (U/L) Date Value 05/24/2024 33 08/05/2015 34 AST (U/L) Date Value 05/24/2024 27 08/05/2015 23 Estimated Creatinine Clearance: 151.5 mL/min (based on SCr of 0.76 mg/dL). ALLERGIES Allergen Reactions Codeine Mental Status Change Sulfa Drugs [Sulfa * Myalgia Indication for Warfarin: Anticoagulation Episode Summary Current INR goal: 2.5-3.5 Assessment: INR result of 4.0 is supratherapeutic due to patient taking incorrect warfarin dose. Has been taking 10 mgThur,Sun; 12.5 mg other days. Plan: Current Warfarin Dosing As of 07/07/2024 Full warfarin instructions: 07/07: 7.5 mg; Otherwise 10 mg every Sun, Tue, Martha; 12.5 mg all other days Called and spoke to patient/caregiver Advised patient to decrease dose for 1 day only then resume weekly regimen as noted above Next home INR check scheduled on Patient verbalizes understanding of the plan. Patient advised to call the PAC with any medication changes, bleeding/bruising concerns, recent changes in vitamin k consumption, if any procedures are coming up, if they have been ill or in the hospital, and if they have missed any doses of warfarin. Aly Jiménez [facility] Clinical Pharmacist, Pharmacy Anticoagulation Clinic Pharmacy Anticoagulation Clinic Pager: [phone]. Allergies As of Date: 07/07/2024 Noted Allergy Reaction CODEINE 10/30/2013 1 - Mental Status Change SULFA DRUGS (SULFA (SULFONAMIDE A*04/21/2023 17 - Myalgia Date Reviewed: 05/19/2024 Reviewed by: Carlyn Rodriguez MA - Fully Assessed Reason for Visit: Anticoagulation Telephone Fu [148] Prescriptions as of 07/07/2024 - metoprolol succinate ER (TOPROL XL) 50 mg 24 hr tablet Take 1 tablet by mouth once daily. - dicyclomine (BENTYL) 10 mg capsule Take 1 capsule by mouth three times a day as needed (for abdominal pain). - pantoprazole DR (PROTONIX) 40 mg tablet Take 1 tablet by mouth once daily. On empty stomach at least 30 minutes before eating. - coenzyme Q10 (CO Q-10) 100 mg cap capsule Take 1 capsule by mouth once daily. - warfarin (COUMADIN) 10 mg tablet Take 15 mg every Mon, Wed; 12.5 mg all other days or as directed by anticoagulation clinic. (Takes with 5 mg tablets) - warfarin (COUMADIN) 5 mg tablet Take 15 mg every Mon, Wed; 12.5 mg all other days or as directed by anticoagulation clinic. (Takes with 10 mg tablets) - rosuvastatin (CRESTOR) 20 mg tablet Take 1 tablet by mouth once daily. - CPAP/BIPAP/OTHER Type .CPAPSettings into a note to see current settings/supplies/DME information. - enoxaparin (LOVENOX) 120 mg/0.8 mL injection Inject 120 mg subcutaneously. - CPAP/BIPAP/OTHER Continue ASV with current settings of EPAP 5 cm H2O with PS 4-12 cmH2O. Lifetime supplies for ASV, including patient preferred mask, head gear, heated tubing, humidity, filters, chin strap. Dx: Obstructive Sleep Apnea G47.33 DME: [facility] - aspirin 81 mg chewable tablet Take 1 tablet by mouth once daily. - Melatonin 5 mg tab Take by mouth as needed. - ACETAMINOPHEN (TYLENOL EXTRA STRENGTH ORAL) Take by mouth as needed. Problem List As Of Date 07/07/2024 Noted Resolved Pre-op testing [Z01.818] 11/01/2013 11/16/2013 History of cardiomyopathy [Z86.79] 11/01/2013 Mitral valve regurgitation [I34.0] 11/01/2013 11/16/2013 Cardiac insufficiency (HCC) [I50.9] 11/13/2013 11/14/2013 Stress hyperglycemia [R73.9] 11/13/2013 11/16/2013 Postoperative pain [G89.18] 11/13/2013 11/22/2013 LBBB [I44.7] 11/13/2013 Hypotension [I95.9] 11/13/2013 11/16/2013 Atelectasis [J98.11] 11/15/2013 04/29/2020 (more content not included)... Normal [facility] Emergency Department Summary on 07-07-2024 Emergency Department Summary [facility] Medical Records Department [address] [place] [address] Emergency Department Summary 07/07/24 MR#: [id number] Acct: [id number] Name: GEORGIE ELIZABETH Rep #: [id number] : 1970 54 From: Yoshi Segal DO PCP: GERONIMO THRASHER Status:DEP ER Location: ED HPI History of Present Illness Chief Complaint: Laceration Informant: patient Narrative Narrative: 54-year-old male presenting with right thumb laceration. Patient was at work today when he cut his left thumb on the metal shelving. He notes he is on Coumadin for mechanical heart valve. He checks his levels at home. He is unsure of his last tetanus. 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 Home Medications ???Medication ???Instructions ???Recorded ???Last Taken ???Type rosuvastatin 20 mg tablet 20 mg PO DAILY 02/18/20 Unknown Hi story melatonin 10 mg tablet 10 mg PO QHS 01/01/22 Unknown Hist ory hydrocodone-acetaminophen 5-325mg 1 tab PO Q6H PRN PRN Pain 3 days 10/04/23 Unknown Rx 5mg-325mg #10 TABLETS aspirin 81 mg capsule 81 mg PO DAILY 06/04/24 Unknown Hi story coenzyme Q10 100 mg capsule (Co 100 mg PO DAILY 06/04/24 Unknown H istory Q-10) dicyclomine 10 mg capsule 10 mg PO TID 06/04/24 Unknown Hist ory metoprolol succinate 50 mg 50 mg PO DAILY 06/04/24 Unknown Hi story tablet,extended release 24 hr pantoprazole 40 mg tablet,delayed 40 mg PO DAILY 06/04/24 Unknown H istory release (Protonix) warfarin 10 mg tablet ([place]toven) 10 mg PO SUTH 06/04/24 Unknown His tory warfarin 5 mg tablet ([place]) 12.5 mg PO MOTUWEFRSA 06/04/24 Unk nown History lorazepam 0.5 mg tablet (Ativan) 0.5 mg PO BID PRN anxiety 06/05/24 Unknown History amoxicillin 875 mg-potassium 1 tab PO BID #6 tabs 06/07/24 Unkn own Rx clavulanate 125 mg tablet Allergy/AdvReac Type Severity Reaction Status Date / Time Sulfa (Sulfonamide Allergy PT UNSURE Verified 07/07/24 08:09 Antibiotics) OF REACTION codeine AdvReac Other Verified 07/07/24 08:09 Family History Sister Colon cancer Father CAD (coronary artery disease) Myocardial infarction Surgical History H/O mitral valve replacement with mechanical valve History of ureter repair History of cardiac catheterization History of open heart surgery History of ventricular septal myectomy S/P MVR (mitral valve replacement) Hx of colonoscopy History of tonsillectomy and adenoidectomy Social History Smoking Status: Never smoker ROS ROS ED Constitutional Constitutional ED: Denies chills or weight loss Eyes Eyes: Denies change in vision or diplopia ENT ENT ED: Denies ear pain, rhinorrhea or sore throat Cardiovascular Cardiovascular: Denies chest pain, orthopnea, palpitations or racing heartbeat Respiratory/Chest Respiratory/Chest: Denies cough, dyspnea or orthopnea Gastrointestinal Gastrointestinal: Denies abdominal pain, diarrhea, nausea or vomiting Genitourinary Genitourinary ED: Denies dysuria, hematuria or urinary frequency Musculoskeletal Musculoskeletal: Denies arthralgias or myalgias Integumentary Reports other Details: Right thumb laceration ; Denies abscess or rash Neurologic Neurologic: Denies headache(s) or weakness Psychiatric Psychiatric: Denies anxiety, depression, suicidal ideation or suicidal thoughts Endocrine Endocrinology: Denies polydipsia, polyphagia or polyuria Allergic/Immunologic Allergic/Immunologic ED: Denies mouth swelling, tongue swelling or urticaria EXAM Physical Exam Const Vital Signs: 07/07/24 08:01 Temperature 98.1 F Temperature Source Temporal Pulse Rate 73 Respiratory Rate 15 Blood Pressure 153/83 H Blood Pressure Mean 106 Pulse Ox 100 Oxygen Delivery Method Room Air Positive well nourished and well developed General Appearance ED: well developed HEENT Reports normocephalic, head/scalp atraumatic and moist mucous membranes Eyes PERRL and EOMs intact bilaterally Neck no lymphadenopathy, supple and no JVD Resp normal respiratory effort and clear to auscultation bilaterally Cardio regular rate, regular rhythm and no murmurs GI normal to inspection, nondistended, normoactive bowel sounds and non-tender Palpation: soft Back/S (more content not included)... Normal [facility] 06-15-2024 [facility] Telephone ([employer]) -- GEORGIE ELIZABETH ([id number]) 1970 M Date Time Provider Department 06/15/24 GUNNAR PATEL During your visit today, we recorded the following information about you: Gunnar Patel, [facility] 06/15/2024 1:12 PM Signed [facility] Ambulatory Pharmacy Anticoagulation Clinic Anticoagulation Episode Summary Anticoagulation Care Providers Provider Role Specialty Phone number Saurav Bob MD Referring Internal Medicine [phone] Georgiegraham Elizabeth is a 54 year old year old male patient being evaluated today for a Telemanagement visit. Patient is currently on the following anticoagulant(s) Warfarin. Labs PT INR (no units) Date Value 10/04/2023 2.0 07/11/2023 2.8 johanna per pt 01/26/2023 4.8 (self-reporting) INR Home CoaguChek (no units) Date Value 06/15/2024 3.0 06/10/2024 1.5 05/30/2024 2.1 Hemoglobin (g/dL) Date Value 05/24/2024 16.0 08/05/2015 14.6 Hematocrit (%) Date Value 05/24/2024 48.9 08/05/2015 43.7 Platelet Count (k/uL) Date Value 05/24/2024 337 08/05/2015 327 Creatinine (mg/dL) Date Value 05/24/2024 0.76 02/25/2024 0.90 08/03/2023 0.85 08/05/2015 1.09 08/05/2015 1.03 02/17/2015 0.99 Bilirubin, Total (mg/dL) Date Value 05/24/2024 1.5 08/05/2015 0.8 ALT (U/L) Date Value 05/24/2024 33 08/05/2015 34 AST (U/L) Date Value 05/24/2024 27 08/05/2015 23 Estimated Creatinine Clearance: 151.5 mL/min (based on SCr of 0.76 mg/dL). 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 Plan: Current Warfarin Dosing As of 06/15/2024 Full warfarin instructions: 10 mg every Wed, Wed, Wed; 12.5 mg all other days Called and spoke to patient/caregiver Advised patient to continue current weekly dose as noted above Next home INR check scheduled on 06/22/2024 Patient verbalizes understanding of the plan. Patient denies need for refills. Patient advised to call the PAC with any medication changes, bleeding/bruising concerns, recent changes in vitamin k consumption, if any procedures are coming up, if they have been ill or in the hospital, and if they have missed any doses of warfarin. Gunnar Patel [facility] Clinical Pharmacist, Pharmacy Anticoagulation Clinic Pharmacy Antico[facility] Clinic Pager: [phone]. Gunnar Patel [facility] 06/22/2024 2:58 PM Signed Patient was due to test INR today. Will continue to monitor for results. Follow up in one week if no results received. Patient's INR Goal range is - 2.5-3.5 PT INR (no units) Date Value 10/04/2023 2.0 07/11/2023 2.8 johanna per pt 01/26/2023 4.8 (self-reporting) INR Home CoaguChek (no units) Date Value 06/15/2024 3.0 06/10/2024 1.5 05/30/2024 2.1 Patient is in titration phase - No Patient has dosing provided until next INR - Yes Patient is on an injectable anticoagulant - No Gunnar Patel [facility] Gunnar Patel [facility] 06/29/2024 1:57 PM Signed Patient was due to test INR today. Will continue to monitor for results. Follow up in one week if no results received. Patient's INR Goal range is - 2.5-3.5 PT INR (no units) Date Value 10/04/2023 2.0 07/11/2023 2.8 johanna per pt 01/26/2023 4.8 (self-reporting) INR Home CoaguChek (no units) Date Value 06/15/2024 3.0 06/10/2024 1.5 05/30/2024 2.1 Patient is in titration phase - No Patient has dosing provided until next INR - Yes Patient is on an injectable anticoagulant - No Gunnar Patel [facility] Gunnar Patel [facility] 07/06/2024 1:32 PM Signed Georgie Orlando Elizabeth was called, stp and reminded to test INR today or as soon as possible. Gunnar Patel [facility] Allergies As of Date: 06/15/2024 Noted Allergy Reaction CODEINE 10/30/2013 1 - Mental Status Change SULFA DRUGS (SULFA (SULFONAMIDE A*04/21/2023 17 - Myalgia Date Reviewed: 05/19/2024 Reviewed by: Carlyn Rodriguez MA - Fully Assessed Reason for Visit: Anticoagulation Telephone Fu [148] Cmt: Home INR Primary Visit Diagnosis: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] Other Visit Diagnoses:senior care (current) use of anticoagulants [Z79.01] History of mitral valve replacement with mechanical valve [Z95.2] Prescriptions as of 07/06/2024 - metoprolol succinate ER (TOPROL XL) 50 mg 24 hr tablet Take 1 tablet by mouth once daily. - dicyclomine (BENTYL) 10 mg capsule Take 1 capsule by mouth three times a day as needed (for abdominal pain). - pantoprazole DR (PROTONIX) 40 mg tablet Take 1 tablet by mouth once daily. On empty stomach at least 30 minut (more content not included)... Normal [facility] Basic Metabolic Profile (BMP )on 06-13-2024 BUN Normal 7-18 [facility] Comment on above: Result Comment: Canc elled via OM: Order cancelled - Patient discharged Performed By: #### L 100.0100, L500.2500 #### [facility] [address] [facility] [address] BUN/CRE Normal 10-20 [facility] Comment on above: Result Comment: Canc elled via OM: Order cancelled - Patient discharged Performed By: #### L 100.0100, L500.2500 #### [facility] [address] [place], [address] CA,Total Normal 8.5-10.1 [facility] Comment on above: Result Comment: Canc elled via OM: Order cancelled - Patient discharged Performed By: #### L 100.0100, L500.2500 #### [facility] [address] [place], [address] CL Normal 98-107 [facility] Comment on above: Result Comment: Canc elled via OM: Order cancelled - Patient discharged Performed By: #### L 100.0100, L500.2500 #### [facility] [address] [place], [address] CO2 Normal 21.0-32.0 [facility] Comment on above: Result Comment: Canc elled via OM: Order cancelled - Patient discharged Performed By: #### L 100.0100, L500.2500 #### [facility] [address] [place], [address] CREAT,SERUM Normal 0.70-1.30 [facility] Comment on above: Result Comment: Canc elled via OM: Order cancelled - Patient discharged Performed By: #### L 100.0100, L500.2500 #### [facility] [address] [place], [address] EST GFR Normal >60 [facility] Comment on above: Result Comment: Canc elled via OM: Order cancelled - Patient discharged Performed By: #### L 100.0100, L500.2500 #### [facility] [address] [place], [address] EST GFR - AA Normal >60 [facility] Comment on above: Result Comment: Canc elled via OM: Order cancelled - Patient discharged Performed By: #### L 100.0100, L500.2500 #### [facility] [address] [place], [address] GAP Normal 5-15 [facility] Comment on above: Result Comment: Canc elled via OM: Order cancelled - Patient discharged Performed By: #### L 100.0100, L500.2500 #### [facility] [address] [place], [address] GLU Normal 74-106 [facility] Comment on above: Result Comment: Canc elled via OM: Order cancelled - Patient discharged Performed By: #### L 100.0100, L500.2500 #### [facility] [address] [place], [address] Potassium Normal 3.5-5.1 [facility] Comment on above: Result Comment: Canc elled via OM: Order cancelled - Patient discharged Performed By: #### L 100.0100, L500.2500 #### [facility] [address] [place], [address] Basic Metabolic Profile (BMP) Normal 136-145 [facility] Comment on above: Result Comment: Canc elled via OM: Order cancelled - Patient discharged Performed By: #### L 100.0100, L500.2500 #### [facility] [address] [place], [address] CBC W/Diff, Automatedon 02- Absolute Neut Normal 2.0-7.7 [facility] Comment on above: Result Comment: Canc elled via OM: Order cancelled - Patient discharged Performed By: #### L 100.0100, L500.2500 #### [facility] [address] [place], [address] HCT Normal 40-54 [facility] Comment on above: Result Comment: Canc elled via OM: Order cancelled - Patient discharged Performed By: #### L 100.0100, L500.2500 #### [facility] [address] [place], [address] HGB Normal 13.0-16.5 [facility] Comment on above: Result Comment: Canc elled via OM: Order cancelled - Patient discharged Performed By: #### L 100.0100, L500.2500 #### [facility] [address] [place], [address] MCH Normal 27.0-32.0 [facility] Comment on above: Result Comment: Canc elled via OM: Order cancelled - Patient discharged Performed By: #### L 100.0100, L500.2500 #### [facility] [address] [place], [address] MCHC Normal 32-36 [facility] Comment on above: Result Comment: Canc elled via OM: Order cancelled - Patient discharged Performed By: #### L 100.0100, L500.2500 #### [facility] [address] [place], [address] MCV Normal 80-94 [facility] Comment on above: Result Comment: Canc elled via OM: Order cancelled - Patient discharged Performed By: #### L 100.0100, L500.2500 #### [facility] [address] [place], [address] NEUT% Normal 47-70 [facility] Comment on above: Result Comment: Canc elled via OM: Order cancelled - Patient discharged Performed By: #### L 100.0100, L500.2500 #### [facility] [address] [place], [address] PLT Normal 150-450 [facility] Comment on above: Result Comment: Canc elled via OM: Order cancelled - Patient discharged Performed By: #### L 100.0100, L500.2500 #### [facility] [address] [place], [address] RBC Normal 4.6-6.2 [facility] Comment on above: Result Comment: Canc elled via OM: Order cancelled - Patient discharged Performed By: #### L 100.0100, L500.2500 #### [facility] [address] [place], [address] RDW CV Normal 11.6-14.6 [facility] Comment on above: Result Comment: Canc elled via OM: Order cancelled - Patient discharged Performed By: #### L 100.0100, L500.2500 #### [facility] [address] [place], [address] RDW SD Normal 35.1-43.9 [facility] Comment on above: Result Comment: Canc elled via OM: Order cancelled - Patient discharged Performed By: #### L 100.0100, L500.2500 #### [facility] [address] [place], [address] WBC Normal 4.4-11.0 [facility] Comment on above: Result Comment: Reji jacobo via OM: Order cancelled - Patient discharged Performed By: #### L 100.0100, L500.2500 #### [facility] [address] [place], [address] CNNURSEon 06-13-2024 [facility] [address] Nurse Visit (CARDMM) -- GEORGIE ELIZABETH ([id number]) 1970 M Date Time Provider Department 06/13/24 11:00 AM NURSE USHA ARDON During your visit today, we recorded the following information about you: Myla Fregoso RN 06/13/2024 11:46 AM Signed HOLTER MONITOR APPLICATION Patient Name: Georgie Perry [facility] Clinic Number: [id number] Chest is cleansed with alcohol Skin prep applied Electrodes place on chest and stress loops secured with tape Fresh battery inserted in monitor Holter monitor secured to patient with waist or shoulder straps Patient instructed 1.) Diary documentation 2.) Usage of event button 3.) Maintenance and care of monitor 4.) Safety issues with monitor 5.) Return unit in 24 hours or 48 hours 6.) Call with problems [phone] [place] [phone] Patient expresses good verbal understanding of instructions Holter# [id number] Myla Fregoso RN Allergies As of Date: 06/13/2024 Noted Allergy Reaction CODEINE 10/30/2013 1 - Mental Status Change SULFA DRUGS (SULFA (SULFONAMIDE A*04/21/2023 17 - Myalgia Date Reviewed: 05/19/2024 Reviewed by: Carlyn Rodriguez MA - Fully Assessed Reason for Visit: Nurse Visit [792] Cmt: Holter Primary Visit Diagnosis:LBBB (left bundle branch block) [I44.7] [I44.7] Other Visit Diagnoses:S/P MVR (mitral valve replacement) [Z95.2] [Z95.2] AV block, 1st degree [I44.0] [I44.0] Prescriptions as of 06/13/2024 - metoprolol succinate ER (TOPROL XL) 50 mg 24 hr tablet Take 1 tablet by mouth once daily. - dicyclomine (BENTYL) 10 mg capsule Take 1 capsule by mouth three times a day as needed (for abdominal pain). - pantoprazole DR (PROTONIX) 40 mg tablet Take 1 tablet by mouth once daily. On empty stomach at least 30 minutes before eating. - coenzyme Q10 (CO Q-10) 100 mg cap capsule Take 1 capsule by mouth once daily. - warfarin (COUMADIN) 10 mg tablet Take 15 mg every Mon, Wed; 12.5 mg all other days or as directed by anticoagulation clinic. (Takes with 5 mg tablets) - warfarin (COUMADIN) 5 mg tablet Take 15 mg every Mon, Wed; 12.5 mg all other days or as directed by anticoagulation clinic. (Takes with 10 mg tablets) - rosuvastatin (CRESTOR) 20 mg tablet Take 1 tablet by mouth once daily. - CPAP/BIPAP/OTHER Type .CPAPSettings into a note to see current settings/supplies/DME information. - enoxaparin (LOVENOX) 120 mg/0.8 mL injection Inject 120 mg subcutaneously. - CPAP/BIPAP/OTHER Continue ASV with current settings of EPAP 5 cm H2O with PS 4-12 cmH2O. Lifetime supplies for ASV, including patient preferred mask, head gear, heated tubing, humidity, filters, chin strap. Dx: Obstructive Sleep Apnea G47.33 DME: [facility] - aspirin 81 mg chewable tablet Take 1 tablet by mouth once daily. - Melatonin 5 mg tab Take by mouth as needed. - ACETAMINOPHEN (TYLENOL EXTRA STRENGTH ORAL) Take by mouth as needed. Problem List As Of Date 06/13/2024 Noted Resolved Pre-op testing [Z01.818] 11/01/2013 11/16/2013 History of cardiomyopathy [Z86.79] 11/01/2013 Mitral valve regurgitation [I34.0] 11/01/2013 11/16/2013 Cardiac insufficiency (HCC) [I50.9] 11/13/2013 11/14/2013 Stress hyperglycemia [R73.9] 11/13/2013 11/16/2013 Postoperative pain [G89.18] 11/13/2013 11/22/2013 LBBB [I44.7] 11/13/2013 Hypotension [I95.9] 11/13/2013 11/16/2013 Atelectasis [J98.11] 11/15/2013 04/29/2020 Fluid overload [E87.70] 11/15/2013 11/16/2013 Central sleep apnea treated with adaptive servo*11/15/2013 Urethral stricture [N35.919] 11/15/2013 11/16/2013 SUMMARY [V999.95] 11/16/2013 04/29/2020 Hypertension [I10] 11/16/2013 Pericardial effusion [I31.39] 11/17/2013 11/22/2013 Hypovolemia [E86.1] 11/20/2013 11/22/2013 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9] 12/22/2022 Diagnosed: 12/22/2022 Hyperbilirubinemia [E80.6] 12/22/2022 Diagnosed: 12/22/2022 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 Nocturnal pause lasted 2.0 seconds. Rare ventricular ectopics as singles and a triplet. No supraventricular ectopics present. Patient activity/symptoms sitting, drinking coffee, fluttering sensation and sitting, drinking, dizziness correlated with sinus rhythm/IVCD. Rhea Rodriguez, CCT 06/15/2024 Confirmed by MD HERMINIA, ZBIGNIEW ([id number]) on 06/15/2024 3:03:29 PM Hookup Date: 20240613 Hookup Time: [id number] Recording Duration: 76039 S Minimum Heart Rate: 57 BPM Minimum Heart Rate Date/Time: 202406144812 Maximum Heart Rate: 117 BPM Maximum Heart Rate Date/Time: 202406142212 Average Heart Rate: 76 BPM Longest RR: 2.000 S Longest RR DATE/TIME: 202406144631 QRS complexes: [id number] Ventricular Ectopics: 11 Ventricular Isolated Beats: 8 Ventricular Bigeminal Cycles: 0 Ventricular Couplets: 0 Ventricular Runs: 1 Ventricular Beats in Runs: 3 Longest Ventricular Run, Beats: 3 Longest Ventricular Run Rate: 136 BPM Longest Ventricular Run, Date/Time: 20240613 Fastest Ventricular Run, Beats: 3 Fastest Ventricular Run Rate: 136 BPM Fastest Ventricular Run, Date/Time: 20240613 Supraventricular Ectopics: 58 Supraventricular Isolated Beats: 52 Supraventricular Couplets: 3 Supraventricular Runs: 0 Supraventricular Beats in Runs: 0 Overreading Physician: ZBIGNIEW HOPE MD Normal [facility] Basic Metabolic Profile (BMP )on 06-12-2024 BUN Normal 7-18 [facility] Comment on above: Result Comment: Canc elled via OM: Order cancelled - Patient discharged Performed By: #### L 100.0100, L500.2500 #### [facility] [address] [place], [address] BUN/CRE Normal 10-20 [facility] Comment on above: Result Comment: Canc elled via OM: Order cancelled - Patient discharged Performed By: #### L 100.0100, L500.2500 #### [facility] [address] [place], [address] CA,Total Normal 8.5-10.1 [facility] Comment on above: Result Comment: Canc elled via OM: Order cancelled - Patient discharged Performed By: #### L 100.0100, L500.2500 #### [facility] [address] [place], [address] CL Normal 98-107 [facility] Comment on above: Result Comment: Canc elled via OM: Order cancelled - Patient discharged Performed By: #### L 100.0100, L500.2500 #### [facility] [address] [place], [address] CO2 Normal 21.0-32.0 [facility] Comment on above: Result Comment: Canc elled via OM: Order cancelled - Patient discharged Performed By: #### L 100.0100, L500.2500 #### [facility] [address] [place], [address] CREAT,SERUM Normal 0.70-1.30 [facility] Comment on above: Result Comment: Canc elled via OM: Order cancelled - Patient discharged Performed By: #### L 100.0100, L500.2500 #### [facility] [address] [place], [address] EST GFR Normal >60 [facility] Comment on above: Result Comment: Canc elled via OM: Order cancelled - Patient discharged Performed By: #### L 100.0100, L500.2500 #### [facility] [address] [place], [address] EST GFR - AA Normal >60 [facility] Comment on above: Result Comment: Canc elled via OM: Order cancelled - Patient discharged Performed By: #### L 100.0100, L500.2500 #### [facility] [address] [place], [address] GAP Normal 5-15 [facility] Comment on above: Result Comment: Canc elled via OM: Order cancelled - Patient discharged Performed By: #### L 100.0100, L500.2500 #### [facility] [address] [place], [address] GLU Normal 74-106 [facility] Comment on above: Result Comment: Canc elled via OM: Order cancelled - Patient discharged Performed By: #### L 100.0100, L500.2500 #### [facility] [address] [place], [address] Potassium Normal 3.5-5.1 [facility] Comment on above: Result Comment: Canc elled via OM: Order cancelled - Patient discharged Performed By: #### L 100.0100, L500.2500 #### [facility] [address] [place], [address] Basic Metabolic Profile (BMP) Normal 136-145 [facility] Comment on above: Result Comment: Canc elled via OM: Order cancelled - Patient discharged Performed By: #### L 100.0100, L500.2500 #### [facility] [address] [place], [address] CBC W/Diff, Automatedon 02-1 0-2024 Absolute Neut Normal 2.0-7.7 [facility] Comment on above: Result Comment: Canc elled via OM: Order cancelled - Patient discharged Performed By: #### L 100.0100, L500.2500 #### [facility] [address] [place], [address] HCT Normal 40-54 [facility] Comment on above: Result Comment: Canc elled via OM: Order cancelled - Patient discharged Performed By: #### L 100.0100, L500.2500 #### [facility] [address] [place], [address] HGB Normal 13.0-16.5 [facility] Comment on above: Result Comment: Canc elled via OM: Order cancelled - Patient discharged Performed By: #### L 100.0100, L500.2500 #### [facility] [address] [place], [address] MCH Normal 27.0-32.0 [facility] Comment on above: Result Comment: Canc elled via OM: Order cancelled - Patient discharged Performed By: #### L 100.0100, L500.2500 #### [facility] [address] [place], [address] MCHC Normal 32-36 [facility] Comment on above: Result Comment: Canc elled via OM: Order cancelled - Patient discharged Performed By: #### L 100.0100, L500.2500 #### [facility] [address] [place], [address] MCV Normal 80-94 [facility] Comment on above: Result Comment: Canc elled via OM: Order cancelled - Patient discharged Performed By: #### L 100.0100, L500.2500 #### [facility] [address] [place], [address] NEUT% Normal 47-70 [facility] Comment on above: Result Comment: Canc elled via OM: Order cancelled - Patient discharged Performed By: #### L 100.0100, L500.2500 #### [facility] [address] [place], [address] PLT Normal 150-450 [facility] Comment on above: Result Comment: Canc elled via OM: Order cancelled - Patient discharged Performed By: #### L 100.0100, L500.2500 #### [facility] [address] [place], [address] RBC Normal 4.6-6.2 [facility] Comment on above: Result Comment: Canc elled via OM: Order cancelled - Patient discharged Performed By: #### L 100.0100, L500.2500 #### [facility] [address] [place], [address] RDW CV Normal 11.6-14.6 [facility] Comment on above: Result Comment: Canc elled via OM: Order cancelled - Patient discharged Performed By: #### L 100.0100, L500.2500 #### [facility] [address] [place], [address] RDW SD Normal 35.1-43.9 [facility] Comment on above: Result Comment: Canc elled via OM: Order cancelled - Patient discharged Performed By: #### L 100.0100, L500.2500 #### [facility] [address] [place], [address] WBC Normal 4.4-11.0 [facility] Comment on above: Result Comment: Canc elled via OM: Order cancelled - Patient discharged Performed By: #### L 100.0100, L500.2500 #### [facility] [address] [place], [address] Basic Metabolic Profile (BMP )on 06-11-2024 BUN Normal 7-18 [facility] Comment on above: Result Comment: Canc elled via OM: Order cancelled - Patient discharged Performed By: #### L 500.2500, L100.0100 #### [facility] [address] [place], [address] BUN/CRE Normal 10-20 [facility] Comment on above: Result Comment: Canc elled via OM: Order cancelled - Patient discharged Performed By: #### L 500.2500, L100.0100 #### [facility] [address] [place], [address] CA,Total Normal 8.5-10.1 [facility] Comment on above: Result Comment: Canc elled via OM: Order cancelled - Patient discharged Performed By: #### L 500.2500, L100.0100 #### [facility] [address] [place], [address] CL Normal 98-107 [facility] Comment on above: Result Comment: Canc elled via OM: Order cancelled - Patient discharged Performed By: #### L 500.2500, L100.0100 #### [facility] [address] [place], [address] CO2 Normal 21.0-32.0 [facility] Comment on above: Result Comment: Canc elled via OM: Order cancelled - Patient discharged Performed By: #### L 500.2500, L100.0100 #### [facility] [address] [place], [address] CREAT,SERUM Normal 0.70-1.30 [facility] Comment on above: Result Comment: Canc elled via OM: Order cancelled - Patient discharged Performed By: #### L 500.2500, L100.0100 #### [facility] [address] [place], [address] EST GFR Normal >60 [facility] Comment on above: Result Comment: Canc elled via OM: Order cancelled - Patient discharged Performed By: #### L 500.2500, L100.0100 #### [facility] [address] [place], [address] EST GFR - AA Normal >60 [facility] Comment on above: Result Comment: Canc elled via OM: Order cancelled - Patient discharged Performed By: #### L 500.2500, L100.0100 #### [facility] [address] [place], [address] GAP Normal 5-15 [facility] Comment on above: Result Comment: Canc elled via OM: Order cancelled - Patient discharged Performed By: #### L 500.2500, L100.0100 #### [facility] [address] [place], [address] GLU Normal 74-106 [facility] Comment on above: Result Comment: Canc elled via OM: Order cancelled - Patient discharged Performed By: #### L 500.2500, L100.0100 #### [facility] [address] [place], [address] Potassium Normal 3.5-5.1 [facility] Comment on above: Result Comment: Canc elled via OM: Order cancelled - Patient discharged Performed By: #### L 500.2500, L100.0100 #### [facility] [address] [place], [address] Basic Metabolic Profile (BMP) Normal 136-145 [facility] Comment on above: Result Comment: Canc elled via OM: Order cancelled - Patient discharged Performed By: #### L 500.2500, L100.0100 #### [facility] [address] [place], [address] CBC W/Diff, Automatedon 02-0 Absolute Neut Normal 2.0-7.7 [facility] Comment on above: Result Comment: Canc elled via OM: Order cancelled - Patient discharged Performed By: #### L 500.2500, L100.0100 #### [facility] [address] [place], [address] HCT Normal 40-54 [facility] Comment on above: Result Comment: Canc elled via OM: Order cancelled - Patient discharged Performed By: #### L 500.2500, L100.0100 #### [facility] [address] [place], [address] HGB Normal 13.0-16.5 [facility] Comment on above: Result Comment: Canc elled via OM: Order cancelled - Patient discharged Performed By: #### L 500.2500, L100.0100 #### [facility] [address] [place], [address] MCH Normal 27.0-32.0 [facility] Comment on above: Result Comment: Canc elled via OM: Order cancelled - Patient discharged Performed By: #### L 500.2500, L100.0100 #### [facility] [address] [place], [address] MCHC Normal 32-36 [facility] Comment on above: Result Comment: Canc elled via OM: Order cancelled - Patient discharged Performed By: #### L 500.2500, L100.0100 #### [facility] [address] [place], [address] MCV Normal 80-94 [facility] Comment on above: Result Comment: Canc elled via OM: Order cancelled - Patient discharged Performed By: #### L 500.2500, L100.0100 #### [facility] [address] [place], [address] NEUT% Normal 47-70 [facility] Comment on above: Result Comment: Canc elled via OM: Order cancelled - Patient discharged Performed By: #### L 500.2500, L100.0100 #### [facility] [address] [place], [address] PLT Normal 150-450 [facility] Comment on above: Result Comment: Canc elled via OM: Order cancelled - Patient discharged Performed By: #### L 500.2500, L100.0100 #### [facility] [address] [place], [address] RBC Normal 4.6-6.2 [facility] Comment on above: Result Comment: Canc elled via OM: Order cancelled - Patient discharged Performed By: #### L 500.2500, L100.0100 #### [facility] [address] [place], [address] RDW CV Normal 11.6-14.6 [facility] Comment on above: Result Comment: Canc elled via OM: Order cancelled - Patient discharged Performed By: #### L 500.2500, L100.0100 #### [facility] [address] [place], [address] RDW SD Normal 35.1-43.9 [facility] Comment on above: Result Comment: Canc elled via OM: Order cancelled - Patient discharged Performed By: #### L 500.2500, L100.0100 #### [facility] [address] [place], [address] WBC Normal 4.4-11.0 [facility] Comment on above: Result Comment: Canc elled via OM: Order cancelled - Patient discharged Performed By: #### L 500.2500, L100.0100 #### [facility] [address] [place], [address] Basic Metabolic Profile (BMP )on 06-10-2024 BUN Normal 7-18 [facility] Comment on above: Result Comment: Canc elled via OM: Order cancelled - Patient discharged Performed By: #### L 100.0100, L500.2500 #### [facility] [address] [place], [address] BUN/CRE Normal 10-20 [facility] Comment on above: Result Comment: Canc elled via OM: Order cancelled - Patient discharged Performed By: #### L 100.0100, L500.2500 #### [facility] [address] [place], [address] CA,Total Normal 8.5-10.1 [facility] Comment on above: Result Comment: Canc elled via OM: Order cancelled - Patient discharged Performed By: #### L 100.0100, L500.2500 #### [facility] [address] [facility] [address] CL Normal 98-107 [facility] Comment on above: Result Comment: Canc elled via OM: Order cancelled - Patient discharged Performed By: #### L 100.0100, L500.2500 #### [facility] [address] [place] [id number] CO2 Normal 21.0-32.0 [facility] Comment on above: Result Comment: Canc elled via OM: Order cancelled - Patient discharged Performed By: #### L 100.0100, L500.2500 #### [facility] [address] [place], [address] CREAT,SERUM Normal 0.70-1.30 [facility] Comment on above: Result Comment: Canc elled via OM: Order cancelled - Patient discharged Performed By: #### L 100.0100, L500.2500 #### [facility] [address] [place], [address] EST GFR Normal >60 [facility] Comment on above: Result Comment: Canc elled via OM: Order cancelled - Patient discharged Performed By: #### L 100.0100, L500.2500 #### [facility] [address] [place], [address] EST GFR - AA Normal >60 [facility] Comment on above: Result Comment: Canc elled via OM: Order cancelled - Patient discharged Performed By: #### L 100.0100, L500.2500 #### [facility] [address] [place], [address] GAP Normal 5-15 [facility] Comment on above: Result Comment: Canc elled via OM: Order cancelled - Patient discharged Performed By: #### L 100.0100, L500.2500 #### [facility] [address] [place], [address] GLU Normal 74-106 [facility] Comment on above: Result Comment: Canc elled via OM: Order cancelled - Patient discharged Performed By: #### L 100.0100, L500.2500 #### [facility] [address] [place], [address] Potassium Normal 3.5-5.1 [facility] Comment on above: Result Comment: Canc elled via OM: Order cancelled - Patient discharged Performed By: #### L 100.0100, L500.2500 #### [facility] [address] [place], [address] Basic Metabolic Profile (BMP) Normal 136-145 [facility] Comment on above: Result Comment: Canc elled via OM: Order cancelled - Patient discharged Performed By: #### L 100.0100, L500.2500 #### [facility] [address] [place], [address] CBC W/Diff, Automatedon 02-0 -2024 Absolute Neut Normal 2.0-7.7 [facility] Comment on above: Result Comment: Canc elled via OM: Order cancelled - Patient discharged Performed By: #### L 100.0100, L500.2500 #### [facility] [address] [place], [address] HCT Normal 40-54 [facility] Comment on above: Result Comment: Canc elled via OM: Order cancelled - Patient discharged Performed By: #### L 100.0100, L500.2500 #### [facility] [address] [place], [address] HGB Normal 13.0-16.5 [facility] Comment on above: Result Comment: Canc elled via OM: Order cancelled - Patient discharged Performed By: #### L 100.0100, L500.2500 #### [facility] [address] [place], [address] MCH Normal 27.0-32.0 [facility] Comment on above: Result Comment: Canc elled via OM: Order cancelled - Patient discharged Performed By: #### L 100.0100, L500.2500 #### [facility] [address] [place], [address] MCHC Normal 32-36 [facility] Comment on above: Result Comment: Canc elled via OM: Order cancelled - Patient discharged Performed By: #### L 100.0100, L500.2500 #### [facility] [address] [place], [address] MCV Normal 80-94 [facility] Comment on above: Result Comment: Canc elled via OM: Order cancelled - Patient discharged Performed By: #### L 100.0100, L500.2500 #### [facility] [address] [place], [address] NEUT% Normal 47-70 [facility] Comment on above: Result Comment: Canc elled via OM: Order cancelled - Patient discharged Performed By: #### L 100.0100, L500.2500 #### [facility] [address] [place], [address] PLT Normal 150-450 [facility] Comment on above: Result Comment: Canc elled via OM: Order cancelled - Patient discharged Performed By: #### L 100.0100, L500.2500 #### [facility] [address] [place], [address] RBC Normal 4.6-6.2 [facility] Comment on above: Result Comment: Canc elled via OM: Order cancelled - Patient discharged Performed By: #### L 100.0100, L500.2500 #### [facility] [address] [place], [address] RDW CV Normal 11.6-14.6 [facility] Comment on above: Result Comment: Canc elled via OM: Order cancelled - Patient discharged Performed By: #### L 100.0100, L500.2500 #### [facility] [address] [place], [address] RDW SD Normal 35.1-43.9 [facility] Comment on above: Result Comment: Canc elled via OM: Order cancelled - Patient discharged Performed By: #### L 100.0100, L500.2500 #### [facility] [address] [place], [address] WBC Normal 4.4-11.0 [facility] Comment on above: Result Comment: Canc elled via OM: Order cancelled - Patient discharged Performed By: #### L 100.0100, L500.2500 #### [facility] [address] [place], [address] CNPNon 06-10-2024 [facility] Telephone (PHAMTE) -- GEORGIE ELIZABETH ([id number]) 1970 M Date Time Provider Department 06/10/24 FELECIA ULLOA During your visit today, we recorded the following information about you: Felecia Ulloa [facility] 06/10/2024 1:05 PM Signed [facility] Anticoagulation Episode Summary Anticoagulation Care Providers Provider Role Specialty Phone number Saurav Bob MD Referring Internal Medicine [phone] Georgie Elizabeth is a 54 year old year old male patient being evaluated today for a Telemanagement visit. Patient is currently on the following anticoagulant(s) Warfarin. Labs PT INR (no units) Date Value 10/04/2023 2.0 07/11/2023 2.8 johanna per pt 01/26/2023 4.8 (self-reporting) INR Home CoaguChek (no units) Date Value 06/10/2024 1.5 05/30/2024 2.1 05/11/2024 2.5 Hemoglobin (g/dL) Date Value 05/24/2024 16.0 08/05/2015 14.6 Hematocrit (%) Date Value 05/24/2024 48.9 08/05/2015 43.7 Platelet Count (k/uL) Date Value 05/24/2024 337 08/05/2015 327 Creatinine (mg/dL) Date Value 05/24/2024 0.76 02/25/2024 0.90 08/03/2023 0.85 08/05/2015 1.09 08/05/2015 1.03 02/17/2015 0.99 Bilirubin, Total (mg/dL) Date Value 05/24/2024 1.5 08/05/2015 0.8 ALT (U/L) Date Value 05/24/2024 33 08/05/2015 34 AST (U/L) Date Value 05/24/2024 27 08/05/2015 23 Estimated Creatinine Clearance: 151.5 mL/min (based on SCr of 0.76 mg/dL). ALLERGIES Allergen Reactions Codeine Mental Status Change Sulfa Drugs [Sulfa * Myalgia Indication for Warfarin: Anticoagulation Episode Summary Current INR goal: 2.5-3.5 Assessment: INR result of 1.5 is SUBtherapeutic due to: Increased vitamin k intake Pt admitted to [facility] on 06/04 through 06/07 for pneumonia and sepsis. Resumed home dose of warfarin upon discharge. Pt was started on Augmentin on 06/07 through 06/14. Diarrhea today. Pt states he was given his normal dose of warfarin while hospitalized. Plan: Current Warfarin Dosing As of 06/10/2024 Full warfarin instructions: 06/10: 15 mg; Otherwise 10 mg every Wed, Wed, Wed; 12.5 mg all other days Called and spoke to patient/caregiver Advised patient to increase dose for 1 day only then resume weekly regimen Pt advised to call PAC if diarrhea starts with antibiotic use and continues beyond 48 hours. Pt advised to call PAC immediately after any hospital discharges or with any medication changes Next home INR check scheduled on 06/15/24 Patient verbalizes understanding of the plan. Patient denies need for refills. Patient advised to call the PAC with any medication changes, bleeding/bruising concerns, recent changes in vitamin k consumption, if any procedures are coming up, if they have been ill or in the hospital, and if they have missed any doses of warfarin. Felecia Ulloa [facility] Clinical Pharmacist, Pharmacy Anticoagulation Clinic Pharmacy Anticoagulation Clinic Pager: [phone]. Brenda Fragoso RN 06/12/2024 8:53 AM Signed [facility] left a VM regarding the patient's INR result on 06/10. Noted result has been addressed below. Brenda Fragoso RN Allergies As of Date: 06/10/2024 Noted Allergy Reaction CODEINE 10/30/2013 1 - Mental Status Change SULFA DRUGS (SULFA (SULFONAMIDE A*04/21/2023 17 - Myalgia Date Reviewed: 05/19/2024 Reviewed by: Carlyn Rodriguez MA - Fully Assessed Reason for Visit: Anticoagulation Telephone Fu [148] Prescriptions as of 06/12/2024 - metoprolol succinate ER (TOPROL XL) 50 mg 24 hr tablet Take 1 tablet by mouth once daily. - dicyclomine (BENTYL) 10 mg capsule Take 1 capsule by mouth three times a day as needed (for abdominal pain). - pantoprazole DR (PROTONIX) 40 mg tablet Take 1 tablet by mouth once daily. On empty stomach at least 30 minutes before eating. - coenzyme Q10 (CO Q-10) 100 mg cap capsule Take 1 capsule by mouth once daily. - warfarin (COUMADIN) 10 mg tablet Take 15 mg every Mon, Wed; 12.5 mg all other days or as directed by anticoagulation clinic. (Takes with 5 mg tablets) - warfarin (COUMADIN) 5 mg tablet Take 15 mg every Mon, Wed; 12.5 mg all other days or as directed by anticoagulation clinic. (Takes with 10 mg tablets) - rosuvastatin (CRESTOR) 20 mg tablet Take 1 tablet by mouth once daily. - CPAP/BIPAP/OTHER Type .CPAPSettings into a note to see current settings/supplies/DME information. - enoxaparin (LOVENOX) 120 mg/0.8 mL injection Inject 120 mg subcutaneously. - CPAP/BIPAP/OTHER Continue ASV with current settings of EPAP 5 cm H2O with PS 4-12 cmH2O. Lifetime supplies for ASV, including patient preferred mask, head gear, heated tubing, humidity, filters, chin strap. Dx: Obstructive Sleep Apnea G47.33 DME: [facility] - aspirin 81 mg chewable tablet Take 1 tablet by mouth once sharan (more content not included)... Normal [facility] Culture, Blood (WB)on 2024 CUB Blood cultures x2, f rom two different sites Culture, Blood (WB) RESULTS CALLED TO RUDY HERNANDEZ 06/05/24 Lalito Delacruz. REPORT READ BACK BY SAME. Culture, Blood (WB) AMENDED GRAM STAIN: NO ORGANISMS SEEN. RESULTS CALLED TO JOSÉ MIGUEL Carter RN 06/06/24 0754 Brooke Williamson. REPORT READ BACK BY . Culture, Blood (WB) NO GROWTH IN 5 DAYS. Normal [facility] Comment on above: Performed By: #### L 501.9520, L501.4020, L500.4100 #### [facility] [address] [place], [place], [id number] Basic Metabolic Profile (BMP )on 06-09-2024 BUN Normal 7-18 [facility] Comment on above: Result Comment: Canc elled via OM: Order cancelled - Patient discharged Performed By: #### L 100.0100, L500.2500 #### [facility] [address] [place], [address] BUN/CRE Normal 10-20 [facility] Comment on above: Result Comment: Canc elled via OM: Order cancelled - Patient discharged Performed By: #### L 100.0100, L500.2500 #### [facility] [address] [place], [address] CA,Total Normal 8.5-10.1 [facility] Comment on above: Result Comment: Canc elled via OM: Order cancelled - Patient discharged Performed By: #### L 100.0100, L500.2500 #### [facility] [address] [place], [address] CL Normal 98-107 [facility] Comment on above: Result Comment: Canc elled via OM: Order cancelled - Patient discharged Performed By: #### L 100.0100, L500.2500 #### [facility] [address] [place], [address] CO2 Normal 21.0-32.0 [facility] Comment on above: Result Comment: Canc elled via OM: Order cancelled - Patient discharged Performed By: #### L 100.0100, L500.2500 #### [facility] [address] [place], [address] CREAT,SERUM Normal 0.70-1.30 [facility] Comment on above: Result Comment: Canc elled via OM: Order cancelled - Patient discharged Performed By: #### L 100.0100, L500.2500 #### [facility] [address] [place], [address] EST GFR Normal >60 [facility] Comment on above: Result Comment: Canc elled via OM: Order cancelled - Patient discharged Performed By: #### L 100.0100, L500.2500 #### [facility] [address] [place], [address] EST GFR - AA Normal >60 [facility] Comment on above: Result Comment: Canc elled via OM: Order cancelled - Patient discharged Performed By: #### L 100.0100, L500.2500 #### [facility] [address] [place], [address] GAP Normal 5-15 [facility] Comment on above: Result Comment: Canc elled via OM: Order cancelled - Patient discharged Performed By: #### L 100.0100, L500.2500 #### [facility] [address] [place], [address] GLU Normal 74-106 [facility] Comment on above: Result Comment: Canc elled via OM: Order cancelled - Patient discharged Performed By: #### L 100.0100, L500.2500 #### [facility] [address] [place], [address] Potassium Normal 3.5-5.1 [facility] Comment on above: Result Comment: Canc elled via OM: Order cancelled - Patient discharged Performed By: #### L 100.0100, L500.2500 #### [facility] [address] [place], [address] Basic Metabolic Profile (BMP) Normal 136-145 [facility] Comment on above: Result Comment: Canc elled via OM: Order cancelled - Patient discharged Performed By: #### L 100.0100, L500.2500 #### [facility] [address] [place], [address] CBC W/Diff, Automatedon 02-0 -2024 Absolute Neut Normal 2.0-7.7 [facility] Comment on above: Result Comment: Canc elled via OM: Order cancelled - Patient discharged Performed By: #### L 100.0100, L500.2500 #### [facility] [address] [place], [address] HCT Normal 40-54 [facility] Comment on above: Result Comment: Canc elled via OM: Order cancelled - Patient discharged Performed By: #### L 100.0100, L500.2500 #### [facility] [address] [place], [address] HGB Normal 13.0-16.5 [facility] Comment on above: Result Comment: Canc elled via OM: Order cancelled - Patient discharged Performed By: #### L 100.0100, L500.2500 #### [facility] [address] [place], [address] MCH Normal 27.0-32.0 [facility] Comment on above: Result Comment: Canc elled via OM: Order cancelled - Patient discharged Performed By: #### L 100.0100, L500.2500 #### [facility] [address] [place], [address] MCHC Normal 32-36 [facility] Comment on above: Result Comment: Canc elled via OM: Order cancelled - Patient discharged Performed By: #### L 100.0100, L500.2500 #### [facility] [address] [place], [address] MCV Normal 80-94 [facility] Comment on above: Result Comment: Canc elled via OM: Order cancelled - Patient discharged Performed By: #### L 100.0100, L500.2500 #### [facility] [address] [place], [address] NEUT% Normal 47-70 [facility] Comment on above: Result Comment: Canc elled via OM: Order cancelled - Patient discharged Performed By: #### L 100.0100, L500.2500 #### [facility] [address] [place], [address] PLT Normal 150-450 [facility] Comment on above: Result Comment: Canc elled via OM: Order cancelled - Patient discharged Performed By: #### L 100.0100, L500.2500 #### [facility] [address] [place], [address] RBC Normal 4.6-6.2 [facility] Comment on above: Result Comment: Canc elled via OM: Order cancelled - Patient discharged Performed By: #### L 100.0100, L500.2500 #### [facility] [address] [place], [address] RDW CV Normal 11.6-14.6 [facility] Comment on above: Result Comment: Canc elled via OM: Order cancelled - Patient discharged Performed By: #### L 100.0100, L500.2500 #### [facility] [address] [place], [address] RDW SD Normal 35.1-43.9 [facility] Comment on above: Result Comment: Canc elled via OM: Order cancelled - Patient discharged Performed By: #### L 100.0100, L500.2500 #### [facility] [address] [place], [address] WBC Normal 4.4-11.0 [facility] Comment on above: Result Comment: Canc elled via OM: Order cancelled - Patient discharged Performed By: #### L 100.0100, L500.2500 #### [facility] [address] [place], [address] Basic Metabolic Profile (BMP )on 06-08-2024 BUN Normal 7-18 [facility] Comment on above: Result Comment: Canc elled via OM: Order cancelled - Patient discharged Performed By: #### L 501.9520, L501.4020, L500.4100 #### [facility] [address] [place], [address] BUN/CRE Normal 10-20 [facility] Comment on above: Result Comment: Canc elled via OM: Order cancelled - Patient discharged Performed By: #### L 501.9520, L501.4020, L500.4100 #### [facility] [address] [place], [address] CA,Total Normal 8.5-10.1 [facility] Comment on above: Result Comment: Canc elled via OM: Order cancelled - Patient discharged Performed By: #### L 501.9520, L501.4020, L500.4100 #### [facility] [address] [place], [address] CL Normal 98-107 [facility] Comment on above: Result Comment: Canc elled via OM: Order cancelled - Patient discharged Performed By: #### L 501.9520, L501.4020, L500.4100 #### [facility] [address] [place], [address] CO2 Normal 21.0-32.0 [facility] Comment on above: Result Comment: Canc elled via OM: Order cancelled - Patient discharged Performed By: #### L 501.9520, L501.4020, L500.4100 #### [facility] [address] [place], [address] CREAT,SERUM Normal 0.70-1.30 [facility] Comment on above: Result Comment: Canc elled via OM: Order cancelled - Patient discharged Performed By: #### L 501.9520, L501.4020, L500.4100 #### [facility] [address] [place], [address] EST GFR Normal >60 [facility] Comment on above: Result Comment: Canc elled via OM: Order cancelled - Patient discharged Performed By: #### L 501.9520, L501.4020, L500.4100 #### [facility] [address] [place], [address] EST GFR - AA Normal >60 [facility] Comment on above: Result Comment: Canc elled via OM: Order cancelled - Patient discharged Performed By: #### L 501.9520, L501.4020, L500.4100 #### [facility] [address] [place], [address] GAP Normal 5-15 [facility] Comment on above: Result Comment: Canc elled via OM: Order cancelled - Patient discharged Performed By: #### L 501.9520, L501.4020, L500.4100 #### [facility] [address] [place], [address] GLU Normal 74-106 [facility] Comment on above: Result Comment: Canc elled via OM: Order cancelled - Patient discharged Performed By: #### L 501.9520, L501.4020, L500.4100 #### [facility] [address] [place], [address] Potassium Normal 3.5-5.1 [facility] Comment on above: Result Comment: Canc elled via OM: Order cancelled - Patient discharged Performed By: #### L 501.9520, L501.4020, L500.4100 #### [facility] [address] [place], [address] Basic Metabolic Profile (BMP) Normal 136-145 [facility] Comment on above: Result Comment: Canc elled via OM: Order cancelled - Patient discharged Performed By: #### L 501.9520, L501.4020, L500.4100 #### [facility] [address] [place], [address] CBC W/Diff, Automatedon 02-0 Absolute Neut Normal 2.0-7.7 [facility] Comment on above: Result Comment: Canc elled via OM: Order cancelled - Patient discharged Performed By: #### L 501.9520, L501.4020, L500.4100 #### [facility] [address] [place], [address] HCT Normal 40-54 [facility] Comment on above: Result Comment: Canc elled via OM: Order cancelled - Patient discharged Performed By: #### L 501.9520, L501.4020, L500.4100 #### [facility] [address] [place], [address] HGB Normal 13.0-16.5 [facility] Comment on above: Result Comment: Canc elled via OM: Order cancelled - Patient discharged Performed By: #### L 501.9520, L501.4020, L500.4100 #### [facility] [address] [place], [address] MCH Normal 27.0-32.0 [facility] Comment on above: Result Comment: Canc elled via OM: Order cancelled - Patient discharged Performed By: #### L 501.9520, L501.4020, L500.4100 #### [facility] [address] [place], [address] MCHC Normal 32-36 [facility] Comment on above: Result Comment: Canc elled via OM: Order cancelled - Patient discharged Performed By: #### L 501.9520, L501.4020, L500.4100 #### [facility] [address] [place], [address] MCV Normal 80-94 [facility] Comment on above: Result Comment: Canc elled via OM: Order cancelled - Patient discharged Performed By: #### L 501.9520, L501.4020, L500.4100 #### [facility] [address] [place], [address] NEUT% Normal 47-70 [facility] Comment on above: Result Comment: Canc elled via OM: Order cancelled - Patient discharged Performed By: #### L 501.9520, L501.4020, L500.4100 #### [facility] [address] [place], [address] PLT Normal 150-450 [facility] Comment on above: Result Comment: Canc elled via OM: Order cancelled - Patient discharged Performed By: #### L 501.9520, L501.4020, L500.4100 #### [facility] [address] [place], [address] RBC Normal 4.6-6.2 [facility] Comment on above: Result Comment: Canc elled via OM: Order cancelled - Patient discharged Performed By: #### L 501.9520, L501.4020, L500.4100 #### [facility] [address] [place], [address] RDW CV Normal 11.6-14.6 [facility] Comment on above: Result Comment: Canc elled via OM: Order cancelled - Patient discharged Performed By: #### L 501.9520, L501.4020, L500.4100 #### [facility] [address] [place], [address] RDW SD Normal 35.1-43.9 [facility] Comment on above: Result Comment: Canc elled via OM: Order cancelled - Patient discharged Performed By: #### L 501.9520, L501.4020, L500.4100 #### [facility] [address] [place], [address] WBC Normal 4.4-11.0 [facility] Comment on above: Result Comment: Canc elled via OM: Order cancelled - Patient discharged Performed By: #### L 501.9520, L501.4020, L500.4100 #### [facility] [address] [place], [address] Absolute neutrophil countOrd ered By: Lyndsey Garza on 06-07-2024 Neutrophils (Bld) [#/Vol] 3.5 10*3/uL 2.0-7.7 [facility] Basic Metabolic Profile (BMP )on 06-07-2024 BUN/CRE 11.9 RATIO Normal 10-20 [facility] Comment on above: Performed By: #### L 501.9520, L501.4020, L500.4100 #### [facility] [address] [place], [address] CA,Total 8.9 mg/dL Normal 8.5-10.1 [facility] Comment on above: Performed By: #### L 501.9520, L501.4020, L500.4100 #### [facility] [address] [place], [address] Chloride [Moles/Vol] 111 mmol/L High 98-107 [facility] Comment on above: Performed By: #### L 501.9520, L501.4020, L500.4100 #### [facility] [address] [place], [address] CO2 [Moles/Vol] 24.0 mmol/L Normal 21.0-32.0 [facility] Comment on above: Performed By: #### L 501.9520, L501.4020, L500.4100 #### [facility] [address] [place], [address] Creatinine [Mass/Vol] 0.67 mg/dL Low 0.70-1.30 [facility] Comment on above: Result Comment: The validity of the calculated GFR GFRAA in patients over 70 years has not been determined. Clinical correlation is essential. Performed By: #### L 501.9520, L501.4020, L500.4100 #### [facility] [address] [place], [address] ECRCL 174.14 ml/min Normal [facility] Comment on above: Performed By: #### L 501.9520, L501.4020, L500.4100 #### [facility] [address] [place], [address] EST GFR - AA 158 mL/min Normal >60 [facility] Comment on above: Result Comment: Afri can Citizen Of [place] GFR Calc Performed By: #### L 501.9520, L501.4020, L500.4100 #### [facility] [address] [place], [address] GAP 6 Normal 5-15 [facility] Comment on above: Performed By: #### L 501.9520, L501.4020, L500.4100 #### [facility] [address] [place], [address] GFR/1.73 sq M.predicted among non-blacks MDRD (S/P/Bld) [Vol rate/Area] 131 mL/min/{1.73_m2} Normal >60 [facility] Comment on above: Result Comment: Non- GFR Calc Performed By: #### L 501.9520, L501.4020, L500.4100 #### [facility] [address] [place], [address] Glucose [Mass/Vol] 96 mg/dL Normal 74-106 [facility] Comment on above: Performed By: #### L 501.9520, L501.4020, L500.4100 #### [facility] [address] [place], [address] Potassium [Moles/Vol] 4.0 mmol/L Normal 3.5-5.1 [facility] Comment on above: Performed By: #### L 501.9520, L501.4020, L500.4100 #### [facility] [address] [place], [address] Sodium [Moles/Vol] 140 mmol/L Normal 136-145 [facility] Comment on above: Performed By: #### L 501.9520, L501.4020, L500.4100 #### [facility] [address] [place], [address] Urea nitrogen [Mass/Vol] 8 mg/dL Normal 7-18 [facility] Comment on above: Performed By: #### L 501.9520, L501.4020, L500.4100 #### [facility] [address] [place], [address] Basophil percentageOrdered B y: Lyndsey Garza on 06-07-2024 Basophils/100 WBC (Bld) 0.9 % 0-1 [facility] Blood urea nitrogen (BUN)/cr eatinine ratioOrdered By: Lyndsey Garza on 06-07-2024 Urea nitrogen/Creatinine [Mass ratio] 11.9 mg/mg - [facility] CBC W/Diff, Automatedon Absolute Lymph 1.96 X10 3/uL Normal 0.83-4.51 [facility] Comment on above: Performed By: #### L 501.9520, L501.4020, L500.4100 #### [facility] [address] [place], [address] Absolute Neut 3.5 X10 3/uL Normal 2.0-7.7 [facility] Comment on above: Performed By: #### L 501.9520, L501.4020, L500.4100 #### [facility] [address] [place], [address] Basophils/100 WBC (Bld) 0.9 % Normal 0-1 [facility] Comment on above: Performed By: #### L 501.9520, L501.4020, L500.4100 #### [facility] [address] [place], [address] Eosinophils/100 WBC (Bld) 6.2 % High 0-5 [facility] Comment on above: Performed By: #### L 501.9520, L501.4020, L500.4100 #### [facility] [address] [place], [address] Erythrocyte distribution width (RBC) [Ratio] 13.8 % Normal 11.6-14.6 [facility] Comment on above: Performed By: #### L 501.9520, L501.4020, L500.4100 #### [facility] [address] [place], [address] Hematocrit (Bld) [Volume fraction] 39.9 % Low 40-54 [facility] Comment on above: Performed By: #### L 501.9520, L501.4020, L500.4100 #### [facility] [address] [place], [address] Hemoglobin (Bld) [Mass/Vol] 13.0 g/dL Normal 13.0-16.5 [facility] Comment on above: Performed By: #### L 501.9520, L501.4020, L500.4100 #### [facility] [address] [place], [address] IG% 0.200 Normal 0.0-0.9 [facility] Comment on above: Result Comment: IG% - Immature Granulocytes (promyelocytes, myelocytes and metamyelocytes) > 1% indicates that a LEFT SHIFT is Present. Performed By: #### L 501.9520, L501.4020, L500.4100 #### [facility] [address] [place], [address] Lymphocytes/100 WBC (Bld) 29.4 % Normal 19-41 [facility] Comment on above: Performed By: #### L 501.9520, L501.4020, L500.4100 #### [facility] [address] [place], [address] MCH (RBC) [Entitic mass] 27.3 pg Normal 27.0-32.0 [facility] Comment on above: Performed By: #### L 501.9520, L501.4020, L500.4100 #### [facility] [address] [place], [address] MCHC (RBC) [Mass/Vol] 32.6 g/dL Normal 32-36 [facility] Comment on above: Performed By: #### L 501.9520, L501.4020, L500.4100 #### [facility] [address] [place], [address] MCV (RBC) [Entitic vol] 83.8 fL Normal 80-94 [facility] Comment on above: Performed By: #### L 501.9520, L501.4020, L500.4100 #### [facility] [address] [place], [address] Monocytes/100 WBC (Bld) 10.5 % High 0-10 [facility] Comment on above: Performed By: #### L 501.9520, L501.4020, L500.4100 #### [facility] [address] [place], [address] Neutrophils/100 WBC (Bld) 52.8 % Normal 47-70 [facility] Comment on above: Performed By: #### L 501.9520, L501.4020, L500.4100 #### [facility] [address] [place], [address] Nucleated RBC (Bld) [#/Vol] 0 10*3/uL Normal 0-5 [facility] Comment on above: Performed By: #### L 501.9520, L501.4020, L500.4100 #### [facility] [address] [place], [address] Platelet mean volume (Bld) [Entitic vol] 9.3 fL Normal 6.2-12.0 [facility] Comment on above: Performed By: #### L 501.9520, L501.4020, L500.4100 #### [facility] [address] [place], [address] Platelets (Bld) [#/Vol] 307 10*3/uL Normal 150-450 [facility] Comment on above: Performed By: #### L 501.9520, L501.4020, L500.4100 #### [facility] [address] [place], [address] RBC (Bld) [#/Vol] 4.76 10*6/uL Normal 4.6-6.2 [facility] Comment on above: Performed By: #### L 501.9520, L501.4020, L500.4100 #### [facility] [address] [place], [address] RDW SD 42.5 fl Normal 35.1-43.9 [facility] Comment on above: Performed By: #### L 501.9520, L501.4020, L500.4100 #### [facility] [address] [place], [address] WBC (Bld) [#/Vol] 6.7 10*3/uL Normal 4.4-11.0 [facility] Comment on above: Performed By: #### L 501.9520, L501.4020, L500.4100 #### [facility] [address] [place], [address] Carbon dioxide measurementOr dered By: Lyndsey Garza on 06-07-2024 CO2 [Moles/Vol] 24.0 mmol/L 21.0-32.0 [facility] Chloride measurementOrdered By: Lyndsey Garza on 06-07-2024 Chloride [Moles/Vol] 111 mmol/L High 98-107 [facility] Discharge Instructionon Discharge Instruction [facility] Medical Records Department [address] [place] [address] Instructions for Home/Discharge Instructions 06/07/24 1450 MR#: [id number] Acct: [id number] Name: GEORGIE ELIZABETH Rep #: [id number] : 1970 54 From: Lyndsey Garza MD PCP: GERONIMO THRASHER Status:ADM IN Discharge Instructions Diet Discharge Diet: Low fat / Low cholesterol DC O2, CPAP, BIPAP needs Home O2 Discharge instructions: No Dressing / Incision Discharge Activity: Return to Normal Activity Weight Bearing Status: Weight bearing as tolerated Dressing / Incision Call your doctor if you observe: Fever of 101 or Higher, Shortness of breath, Dizziness, Swelling in the ankles and Chest pain Follow Up Care Test Results: Test results from this visit will be discussed in further detail at your follow-up appointment, if applicable. Discharge Plan Admission Admit Date/Time: 06/05/24 00:19 Primary Reason for Your Visit: sepsis due to pneumonia Attending Provider: Lyndsey Garza Primary Care Provider: GERONIMO THRASHER Consulting Providers: Manav Martino; Rhea Rangel Instructions Patient Instructions: ED Pneumonia (Adult) Discharge Orders/Prescriptions Prescriptions: New amoxicillin-pot clavulanate 875-125 mg tablet 1 tab PO BID Qty: 6 0RF Continued rosuvastatin 20 MG tablet 20 mg PO DAILY melatonin 10 mg Tablet 10 mg PO QHS hydrocodone-acetaminophen 5-325 mg tablet 1 tab PO Q6H PRN PRN (Reason: Pain) 3 Days Qty: 10 0RF warfarin [Jantoven] 10 mg tablet 10 mg PO SUTH warfarin [Jantoven] 5 mg tablet 12.5 mg PO MOTUWEFRSA metoprolol succinate 50 mg tablet extended release 24 hr 50 mg PO DAILY aspirin 81 mg capsule 81 mg PO DAILY dicyclomine 10 mg capsule 10 mg PO TID coenzyme Q10 [Co Q-10] 100 mg capsule 100 mg PO DAILY pantoprazole [Protonix] 40 mg tablet,delayed release (DR/EC) 40 mg PO DAILY lorazepam [Ativan] 0.5 mg tablet 0.5 mg PO BID PRN (Reason: anxiety) Referrals / Follow Up: GERONIMO THRASHER [Other] - Within 1 Week GERONIMO THRASHER [Other] Disposition Disposition (needs filled in before D/C Order can be placed): Home, Self Care 06/07/24 6134 Lyndsey Garza MD CC: Dr. Manav Martino DO; Dr. Rhea Rangel MD; GERONIMO THRASHER Signed Normal [facility] Eosinophil percentageOrdered By: Lyndsey Garza on 06-07-2024 Eosinophils/100 WBC (Bld) 6.2 % High 0-5 [facility] Erythrocyte distribution wid th ratioOrdered By: Lyndsey Garza on 06-07-2024 Erythrocyte distribution width (RBC) [Ratio] 13.8 % 11.6-14.6 [facility] Erythrocyte distribution wid th standard deviationOrdered By: Lyndsey Garza on 06-07-2024 Erythrocyte distribution width (RBC) [Entitic vol] 42.5 fL 35.1-43.9 [facility] Estimated glomerular filtrat ion rate (GFR) AmericanOrdered By: Lyndsey Garza on 06-07-2024 Estimated GFR (MDRD) Amer 158 mL/min >60 [facility] Comment on above: GFR Calc Estimation of creatinine andra aranceOrdered By: Lyndsey Garza on 06-07-2024 Estimated Creatinine Clearance Calc 174.14 ml/min [facility] Glomerular filtration rate ( GFR) estimationOrdered By: Lyndsey Garza on 06-07-2024 Estimated GFR (MDRD) Non-Af Amer 131 mL/min >60 [facility] Comment on above: Non- GFR Calc Glucose measurementOrdered B y: Lyndsey Garza on 06-07-2024 Glucose [Mass/Vol] 96 mg/dL 74-106 [facility] Gram Stainon 06-07-2024 GS Acceptable Specimen? Yes (<25 Epithelial cells per/lpf) Gram Stain 4+ White Blood Cells Very Rare Gram positive rods No Epithelial cells Normal [facility] Comment on above: Performed By: #### L 501.9520, L501.4020, L500.4100 #### [facility] [address] [place] [address]. [place], [place], [id number] Hematocrit Auto (Bld) [Volum e fraction]Ordered By: Lyndsey Garza on 06-07-2024 Hematocrit (Bld) [Volume fraction] 39.9 % Low 40-54 [facility] Hemoglobin measurementOrdere d By: Lyndsey Garza on 06-07-2024 Hemoglobin (Bld) [Mass/Vol] 13.0 g/dL 13.0-16.5 [facility] Immature granulocytes/100 WB C Auto (Bld)Ordered By: Lyndsey Garza on 06-07-2024 Immature granulocytes/100 WBC (Bld) 0.200 % 0.0-0.9 [facility] Comment on above: IG% - Immature Granu locytes (promyelocytes, myelocytes and metamyelocytes) > 1% indicates that a LEFT SHIFT is Present. International normalized rat io (INR) calculationOrdered By: Lyndsey Garza on 06-07-2024 INR Coag (Bld) [Relative time] 2.9 {INR} [facility] Lymphocytes Auto (Unsp spec) [#/Vol]Ordered By: Lyndsey Garza on 06-07-2024 Lymphocytes (Bld) [#/Vol] 1.96 10*3/uL 0.83-4.51 [facility] Lymphocytes/100 WBC Auto (Un sp spec)Ordered By: Lyndsey Garza on 06-07-2024 Lymphocytes/100 WBC (Bld) 29.4 % 19-41 [facility] MCV (mean corpuscular volume ) determinationOrdered By: Lyndsey Garza on 06-07-2024 MCV (RBC) [Entitic vol] 83.8 fL 80-94 [facility] Mean corpuscular hemoglobin (MCH) determinationOrdered By: Lyndsey Garza on 06-07-2024 MCH (RBC) [Entitic mass] 27.3 pg 27.0-32.0 [facility] Mean corpuscular hemoglobin concentration (MCHC) determinationOrdered By: Lyndsey Garza on 06-07-2024 MCHC (RBC) [Mass/Vol] 32.6 g/dL 32-36 [facility] Mean platelet volume determi nationOrdered By: Lyndsey Garza on 06-07-2024 Platelet mean volume (Bld) [Entitic vol] 9.3 fL 6.2-12.0 [facility] Monocyte percentageOrdered B y: Lyndsey Garza on 06-07-2024 Monocytes/100 WBC (Bld) 10.5 % High 0-10 [facility] Neutrophil percentageOrdered By: Lyndsey Garza on 06-07-2024 Neutrophils/100 WBC (Bld) 52.8 % 47-70 [facility] Nucleated red blood cell per centageOrdered By: Lyndsey Garza on 06-07-2024 Nucleated RBC/100 WBC (Bld) [Ratio] 0 % 0-5 [facility] Platelet countOrdered By: Cathie Garza on 06-07-2024 Platelets (Bld) [#/Vol] 307 10*3/uL 150-450 [facility] Potassium measurementOrdered By: Lyndsey Garza on 06-07-2024 Potassium [Moles/Vol] 4.0 mmol/L 3.5-5.1 [facility] Prothrombin Time w/INRon INR Coag (PPP) [Relative time] 2.9 {INR} Normal [facility] Comment on above: Performed By: #### L 300.3900 #### [facility] [address] [place], [address] PT Coag (PPP) [Time] 30.9 s High 11.7-14.9 [facility] Comment on above: Performed By: #### L 300.3900 #### [facility] [address] [place], [address] Prothrombin timeOrdered By: Lyndsey Garza on 06-07-2024 PT Coag (PPP) [Time] 30.9 s High 11.7-14.9 [facility] RBC Auto (Bld) [#/Vol]Ordere d By: Lyndsey Garza on 06-07-2024 RBC (Bld) [#/Vol] 4.76 10*6/uL 4.6-6.2 [facility] Respiratory Cultureon 2024 RESPC Mixed normal respira tory ash. No Streptococcus pneumoniae, beta-hemolytic Streptococcus or Staphylococcus aureus isolated. Normal [facility] Comment on above: Performed By: #### L 300.3900 #### [facility] [address] [place], [address] Serum anion gap measurementO rdered By: Lyndsey Garza on 06-07-2024 Anion gap [Moles/Vol] 6 mmol/L 5-15 [facility] Serum or plasma calcium tasha urement (mass/volume)Ordered By: Lyndsey Garza on 06-07-2024 Calcium [Mass/Vol] 8.9 mg/dL 8.5-10.1 [facility] Serum or plasma creatinine m easurement (mass/volume)Ordered By: Lyndsey Garza on 06-07-2024 Creatinine [Mass/Vol] 0.67 mg/dL Low 0.70-1.30 [facility] Comment on above: The validity of the calculated GFR & GFRAA in patients over 70 years has not been determined. Clinical correlation is essential. Serum or plasma urea nitroge n measurement (mass/volume)Ordered By: Lyndsey Garza on 06-07-2024 Urea nitrogen [Mass/Vol] 8 mg/dL 7-18 [facility] Sodium levelOrdered By: Lyndsey Garza on 06-07-2024 Sodium [Moles/Vol] 140 mmol/L 136-145 [facility] White blood cell (WBC) count Ordered By: [facility] 06-07-2024 WBC (Bld) [#/Vol] 6.7 10*3/uL 4.4-11.0 [facility] Basic Metabolic Profile (BMP )on 06-06-2024 BUN/CRE 8.8 RATIO Low 10-20 [facility] Comment on above: Performed By: #### L 100.0100, L500.2500 #### [facility] [address] [facility] [place], [address] CA,Total 8.5 mg/dL Normal 8.5-10.1 [facility] Comment on above: Performed By: #### L 100.0100, L500.2500 #### [facility] [address] [place], [address] Chloride [Moles/Vol] 113 mmol/L High 98-107 [facility] Comment on above: Performed By: #### L 100.0100, L500.2500 #### [facility] [address] [place], [address] CO2 [Moles/Vol] 24.0 mmol/L Normal 21.0-32.0 [facility] Comment on above: Performed By: #### L 100.0100, L500.2500 #### [facility] [address] [place], [address] Creatinine [Mass/Vol] 0.80 mg/dL Normal 0.70-1.30 [facility] Comment on above: Result Comment: The validity of the calculated GFR GFRAA in patients over 70 years has not been determined. Clinical correlation is essential. Performed By: #### L 100.0100, L500.2500 #### [facility] [address] [place], [address] ECRCL 144.77 ml/min Normal [facility] Comment on above: Performed By: #### L 100.0100, L500.2500 #### [facility] [address] [place], [address] EST GFR - AA 130 mL/min Normal >60 [facility] Comment on above: Result Comment: Afri can Citizen [place] GFR Calc Performed By: #### L 100.0100, L500.2500 #### [facility] [address] [place], [address] GAP 5 Normal 5-15 [facility] Comment on above: Performed By: #### L 100.0100, L500.2500 #### [facility] [address] [place], [address] GFR/1.73 sq M.predicted among non-blacks MDRD (S/P/Bld) [Vol rate/Area] 108 mL/min/{1.73_m2} Normal >60 [facility] Comment on above: Result Comment: Non- GFR Calc Performed By: #### L 100.0100, L500.2500 #### [facility] [address] [place], [address] Glucose [Mass/Vol] 105 mg/dL Normal 74-106 [facility] Comment on above: Result Comment: Fast ing Glucose result from 100 to 125 mg/dL suggests IMPAIRED HOMEOSTASIS per A.D.A. criteria. Performed By: #### L 100.0100, L500.2500 #### [facility] [address] [place], [address] Potassium [Moles/Vol] 3.9 mmol/L Normal 3.5-5.1 [facility] Comment on above: Performed By: #### L 100.0100, L500.2500 #### [facility] [address] [place], [address] Sodium [Moles/Vol] 142 mmol/L Normal 136-145 [facility] Comment on above: Performed By: #### L 100.0100, L500.2500 #### [facility] [address] [place], [address] Urea nitrogen [Mass/Vol] 7 mg/dL Normal 7-18 [facility] Comment on above: Performed By: #### L 100.0100, L500.2500 #### [facility] [address] [place], [address] CBC W/Diff, Automatedon 02-0 4-2024 Absolute Lymph 1.84 X10 3/uL Normal 0.83-4.51 [facility] Comment on above: Performed By: #### L 100.0100, L500.2500 #### [facility] [address] [place], [address] Absolute Neut 6.2 X10 3/uL Normal 2.0-7.7 [facility] Comment on above: Performed By: #### L 100.0100, L500.2500 #### [facility] [address] [place], [address] Basophils/100 WBC (Bld) 0.4 % Normal 0-1 [facility] Comment on above: Performed By: #### L 100.0100, L500.2500 #### [facility] [address] [place], [address] Eosinophils/100 WBC (Bld) 3.5 % Normal 0-5 [facility] Comment on above: Performed By: #### L 100.0100, L500.2500 #### [facility] [address] [place], [address] Erythrocyte distribution width (RBC) [Ratio] 13.9 % Normal 11.6-14.6 [facility] Comment on above: Performed By: #### L 100.0100, L500.2500 #### [facility] [address] [place], [address] Hematocrit (Bld) [Volume fraction] 39.3 % Low 40-54 [facility] Comment on above: Performed By: #### L 100.0100, L500.2500 #### [facility] [address] [place], [address] Hemoglobin (Bld) [Mass/Vol] 12.9 g/dL Low 13.0-16.5 [facility] Comment on above: Performed By: #### L 100.0100, L500.2500 #### [facility] [address] [place], [address] IG% 0.300 Normal 0.0-0.9 [facility] Comment on above: Result Comment: IG% - Immature Granulocytes (promyelocytes, myelocytes and metamyelocytes) > 1% indicates that a LEFT SHIFT is Present. Performed By: #### L 100.0100, L500.2500 #### [facility] [address] [place], [address] Lymphocytes/100 WBC (Bld) 19.7 % Normal 19-41 [facility] Comment on above: Performed By: #### L 100.0100, L500.2500 #### [facility] [address] [place], [address] MCH (RBC) [Entitic mass] 26.9 pg Low 27.0-32.0 [facility] Comment on above: Performed By: #### L 100.0100, L500.2500 #### [facility] [address] [place], [address] MCHC (RBC) [Mass/Vol] 32.8 g/dL Normal 32-36 [facility] Comment on above: Performed By: #### L 100.0100, L500.2500 #### [facility] [address] [place], [address] MCV (RBC) [Entitic vol] 81.9 fL Normal 80-94 [facility] Comment on above: Performed By: #### L 100.0100, L500.2500 #### [facility] [address] [place], [address] Monocytes/100 WBC (Bld) 9.7 % Normal 0-10 [facility] Comment on above: Performed By: #### L 100.0100, L500.2500 #### [facility] [address] [place], [address] Neutrophils/100 WBC (Bld) 66.4 % Normal 47-70 [facility] Comment on above: Performed By: #### L 100.0100, L500.2500 #### [facility] [address] [place], [address] Nucleated RBC (Bld) [#/Vol] 0 10*3/uL Normal 0-5 [facility] Comment on above: Performed By: #### L 100.0100, L500.2500 #### [facility] [address] [place], [address] Platelet mean volume (Bld) [Entitic vol] 8.7 fL Normal 6.2-12.0 [facility] Comment on above: Performed By: #### L 100.0100, L500.2500 #### [facility] [address] [place], [address] Platelets (Bld) [#/Vol] 291 10*3/uL Normal 150-450 [facility] Comment on above: Performed By: #### L 100.0100, L500.2500 #### [facility] [address] [place], [address] RBC (Bld) [#/Vol] 4.80 10*6/uL Normal 4.6-6.2 [facility] Comment on above: Performed By: #### L 100.0100, L500.2500 #### [facility] [address] [place], [address] RDW SD 41.2 fl Normal 35.1-43.9 [facility] Comment on above: Performed By: #### L 100.0100, L500.2500 #### [facility] [address] [place], [address] WBC (Bld) [#/Vol] 9.3 10*3/uL Normal 4.4-11.0 [facility] Comment on above: Performed By: #### L 100.0100, L500.2500 #### [facility] [address] [place], [address] Consultation - Infectious Dx on 06-06-2024 Consultation - Infectious Dx [facility] Medical Records Department [address] [place] [address] Consultation - Infectious Dx 06/06/24 1050 MR#: [id number] Acct: [id number] Name: GEORGIE ELIZABETH RHEA Rep #: [id number] : 1970 54 From: Rhea Rangel MD PCP: GERONIMO THRASHER Status:ADM IN Location: ICU ICU05-1 Assessment Plan Assessment/Plan (1) Sepsis: QUALIFIERS: Sepsis type: sepsis due to unspecified organism Sepsis acute organ dysfunction status: without acute organ dysfunction Qualified Code(s): A41.9 - Sepsis, unspecified organism (2) Pneumonia: QUALIFIERS: Pneumonia type: due to unspecified organism Laterality: right Lung location: lower lobe of lung Qualified Code(s): J18.9 - Pneumonia, unspecified organism PLAN: Overall much improved. Lab corrected, bcx x2 remain neg. Will narrow vanc/zosyn to ceftriaxone. Plan on discharge soon with 3 days po augmentin 875mg bid. Will follow, thank you (3) H/O mitral valve replacement with mechanical valve: HPI Consult Data Date of Consult: 06/06/24 HPI Narrative Reason for Consultation: CAP HPI Narrative: GEORGIE ELIZABETH, is a 54 M with h/o [facility] valve replacement, had URI about a week ago, then sudden onset chills, chestpain, cough, dyspnea. Having some green/brown sputum. Came to ED 06/04, admitted on vanc/zosyn. Now in icu, feeling much better. Full ROS performed and neg except as noted above. 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 Home Medications ???Medication ???Instructions ???Recorded ???Last Taken ???Type rosuvastatin 20 mg tablet 20 mg PO DAILY 02/18/20 Unknown Hi story melatonin 10 mg tablet 10 mg PO QHS 01/01/22 Unknown Hist ory hydrocodone-acetaminophen 5-325mg 1 tab PO Q6H PRN PRN Pain 3 days 10/04/23 Unknown Rx 5mg-325mg #10 TABLETS aspirin 81 mg capsule 81 mg PO DAILY 06/04/24 Unknown Hi story coenzyme Q10 100 mg capsule (Co 100 mg PO DAILY 06/04/24 Unknown H istory Q-10) dicyclomine 10 mg capsule 10 mg PO TID 06/04/24 Unknown Hist ory metoprolol succinate 50 mg 50 mg PO DAILY 06/04/24 Unknown Hi story tablet,extended release 24 hr pantoprazole 40 mg tablet,delayed 40 mg PO DAILY 06/04/24 Unknown H istory release (Protonix) warfarin 10 mg tablet (Jantoven) 10 mg PO SUTH 06/04/24 Unknown His tory warfarin 5 mg tablet (Jantoven) 12.5 mg PO MOTUWEFRSA 06/04/24 Unk nown History lorazepam 0.5 mg tablet (Ativan) 0.5 mg PO BID PRN anxiety 06/05/24 Unknown History Allergy/AdvReac Type Severity Reaction Status Date / Time Sulfa (Sulfonamide Allergy PT UNSURE Verified 06/04/24 19:30 Antibiotics) OF REACTION codeine AdvReac Other Verified 06/04/24 19:30 Family History Sister Colon cancer Father CAD (coronary artery disease) Myocardial infarction Surgical History (Updated 06/04/24 @ 23:[address] Gui Paredes DO) H/O mitral valve replacement with mechanical valve History of ureter repair History of cardiac catheterization History of open heart surgery History of ventricular septal myectomy S/P MVR (mitral valve replacement) Hx of colonoscopy History of tonsillectomy and adenoidectomy Social History Smoking Status: Never smoker Physical Exam Const alert, oriented x3 and no apparent distress General Appearance: cooperative HEENT normocephalic and head/scalp atraumatic Eyes PERRL and EOMs intact bilaterally Neck supple and No nodes Resp normal air movement and clear to auscultation bilaterally Cardio regular rate and regular rhythm; Negative for no clicks GI soft to palpation, non-tender and non-distended Extremity General Extremity: Negative for edema Skin no rashes or lesions noted Neuro CN's II-XII intact bilaterally Lab / Micro Data Attestation: I reviewed the patient's lab results. 06/06/24 04:50 06/06/24 04:50 Labs: Laboratory Results - last 24 hr 06/05/24 11:42: WBC 14.2 H, RBC 4.70, Hgb 12.9 L, Hct 38.9 L, MCV 82.8, MCH 27.4, MCHC 33.2, RDW Std Deviation 41.4, RDW Coeff of Kingsley 13.7, Plt Count 295, MPV 8.7, Immature Gran % (Auto) 0.400, Neut % (Auto) 75.6 H, Lymph % (Auto) 13.8 L, Swift % (Auto) 8.6, Eos % (Auto) 1.2, Baso % (Auto) 0.4, A bsolute Neuts (auto) 10.7 H, Absolute Lymphs (auto) 1.96, Nucleated RBC % 0, Sodium 140, Potassium 3.8, Chloride 111 H, Carbon Dioxide 24.0, Anion Gap 5, BUN 11, Cr (more content not included)... Normal [facility] Gram Stainon 06-06-2024 List Antibiotics Las t 48 Hours? vancomycin, zosyn Gram Stain Rare White Blood Cells Rare Gram positive cocci Normal [facility] Comment on above: Performed By: #### L 300.3900 #### [facility] [address] [place], [address] Gram stainOrdered By: Lyndsey coy on 06-06-2024 Microscopic observation Gram stain Nom (Unsp spec) [facility] M R Staph Aureus DNA by PCRo n 06-06-2024 MRSA DNA ASSAY Negative Normal Negative [facility] Comment on above: Performed By: #### L 8200.1000 #### [facility] [address] [place], [address] MRSA detection PCROrdered By : Lyndsey Garza on 06-06-2024 Methicillin-Resist S.aureus DNA PCR Negative Negative [facility] Microorganism identified Cx Nom (Unsp spec)Ordered By: Lyndsey Garza on 06-06-2024 Respiratory Culture or Staphylococcus au reus isolated. [facility] Prothrombin Time w/INRon INR Coag (PPP) [Relative time] 3.0 {INR} Normal [facility] Comment on above: Performed By: #### L 300.3900 #### [facility] [address] [place], [place], [id number] PT Coag (PPP) [Time] 32.2 s High 11.7-14.9 [facility] Comment on above: Performed By: #### L 300.3900 #### [facility] [address] [place], [address] Respiratory Cultureon 2024 RESPC List Antibiotics Las t 48 Hours? vancomycin, zosyn Mixed normal respiratory ash. No Streptococcus pneumoniae, beta-hemolytic Streptococcus or Staphylococcus aureus isolated. Normal [facility] Comment on above: Performed By: #### L 300.3900 #### [facility] [address] [place], [address] Basic Metabolic Profile (BMP )on 06-05-2024 BUN/CRE 12.7 RATIO Normal 10-20 [facility] Comment on above: Performed By: #### L 501.9520, L501.4020, L500.4100 #### [facility] [address] [place], [address] CA,Total 8.6 mg/dL Normal 8.5-10.1 [facility] Comment on above: Performed By: #### L 501.9520, L501.4020, L500.4100 #### [facility] [address] [place], [address] Chloride [Moles/Vol] 111 mmol/L High 98-107 [facility] Comment on above: Performed By: #### L 501.9520, L501.4020, L500.4100 #### [facility] [address] [place], [address] CO2 [Moles/Vol] 24.0 mmol/L Normal 21.0-32.0 [facility] Comment on above: Performed By: #### L 501.9520, L501.4020, L500.4100 #### [facility] [address] [place], [address] Creatinine [Mass/Vol] 0.86 mg/dL Normal 0.70-1.30 [facility] Comment on above: Result Comment: The validity of the calculated GFR GFRAA in patients over 70 years has not been determined. Clinical correlation is essential. Performed By: #### L 501.9520, L501.4020, L500.4100 #### [facility] [address] [place], [address] ECRCL 134.56 ml/min Normal [facility] Comment on above: Performed By: #### L 501.9520, L501.4020, L500.4100 #### [facility] [address] [place], [address] EST GFR - AA 119 mL/min Normal >60 [facility] Comment on above: Result Comment: Afri can Citizen [place] GFR Calc Performed By: #### L 501.9520, L501.4020, L500.4100 #### [facility] [address] [place], [address] GAP 5 Normal 5-15 [facility] Comment on above: Performed By: #### L 501.9520, L501.4020, L500.4100 #### [facility] [address] [place], [address] GFR/1.73 sq M.predicted among non-blacks MDRD (S/P/Bld) [Vol rate/Area] 98 mL/min/{1.73_m2} Normal >60 [facility] Comment on above: Result Comment: Non- GFR Calc Performed By: #### L 501.9520, L501.4020, L500.4100 #### [facility] [address] [place], [address] Glucose [Mass/Vol] 93 mg/dL Normal 74-106 [facility] Comment on above: Performed By: #### L 501.9520, L501.4020, L500.4100 #### [facility] [address] [place], [address] Potassium [Moles/Vol] 3.8 mmol/L Normal 3.5-5.1 [facility] Comment on above: Performed By: #### L 501.9520, L501.4020, L500.4100 #### [facility] [address] [place], [address] Sodium [Moles/Vol] 140 mmol/L Normal 136-145 [facility] Comment on above: Performed By: #### L 501.9520, L501.4020, L500.4100 #### [facility] [address] [place], [address] Urea nitrogen [Mass/Vol] 11 mg/dL Normal 7-18 [facility] Comment on above: Performed By: #### L 501.9520, L501.4020, L500.4100 #### [facility] [address] [place], [address] CBC W/Diff, Automatedon 02-0 3-202 Absolute Lymph 1.96 X10 3/uL Normal 0.83-4.51 [facility] Comment on above: Performed By: #### L 501.9520, L501.4020, L500.4100 #### [facility] [address] [place], [address] Absolute Neut 10.7 X10 3/uL High 2.0-7.7 [facility] Comment on above: Performed By: #### L 501.9520, L501.4020, L500.4100 #### [facility] [address] [place], [address] Basophils/100 WBC (Bld) 0.4 % Normal 0-1 [facility] Comment on above: Performed By: #### L 501.9520, L501.4020, L500.4100 #### [facility] [address] [place], [address] Eosinophils/100 WBC (Bld) 1.2 % Normal 0-5 [facility] Comment on above: Performed By: #### L 501.9520, L501.4020, L500.4100 #### [facility] [address] [place], [address] Erythrocyte distribution width (RBC) [Ratio] 13.7 % Normal 11.6-14.6 [facility] Comment on above: Performed By: #### L 501.9520, L501.4020, L500.4100 #### [facility] [address] [place] [place], [address] Hematocrit (Bld) [Volume fraction] 38.9 % Low 40-54 [facility] Comment on above: Performed By: #### L 501.9520, L501.4020, L500.4100 #### [facility] [address] [place], [address] Hemoglobin (Bld) [Mass/Vol] 12.9 g/dL Low 13.0-16.5 [facility] Comment on above: Performed By: #### L 501.9520, L501.4020, L500.4100 #### [facility] [address] [place], [address] IG% 0.400 Normal 0.0-0.9 [facility] Comment on above: Result Comment: IG% - Immature Granulocytes (promyelocytes, myelocytes and metamyelocytes) > 1% indicates that a LEFT SHIFT is Present. Performed By: #### L 501.9520, L501.4020, L500.4100 #### [facility] [address] [place], [address] Lymphocytes/100 WBC (Bld) 13.8 % Low 19-41 [facility] Comment on above: Performed By: #### L 501.9520, L501.4020, L500.4100 #### [facility] [address] [place], [address] MCH (RBC) [Entitic mass] 27.4 pg Normal 27.0-32.0 [facility] Comment on above: Performed By: #### L 501.9520, L501.4020, L500.4100 #### [facility] [address] [place], [address] MCHC (RBC) [Mass/Vol] 33.2 g/dL Normal 32-36 [facility] Comment on above: Performed By: #### L 501.9520, L501.4020, L500.4100 #### [facility] [address] [place], [address] MCV (RBC) [Entitic vol] 82.8 fL Normal 80-94 [facility] Comment on above: Performed By: #### L 501.9520, L501.4020, L500.4100 #### [facility] [address] [place], [address] Monocytes/100 WBC (Bld) 8.6 % Normal 0-10 [facility] Comment on above: Performed By: #### L 501.9520, L501.4020, L500.4100 #### [facility] [address] [place], [address] Neutrophils/100 WBC (Bld) 75.6 % High 47-70 [facility] Comment on above: Performed By: #### L 501.9520, L501.4020, L500.4100 #### [facility] [address] [place], [address] Nucleated RBC (Bld) [#/Vol] 0 10*3/uL Normal 0-5 [facility] Comment on above: Performed By: #### L 501.9520, L501.4020, L500.4100 #### [facility] [address] [place], [address] Platelet mean volume (Bld) [Entitic vol] 8.7 fL Normal 6.2-12.0 [facility] Comment on above: Performed By: #### L 501.9520, L501.4020, L500.4100 #### [facility] [address] [place], [address] Platelets (Bld) [#/Vol] 295 10*3/uL Normal 150-450 [facility] Comment on above: Performed By: #### L 501.9520, L501.4020, L500.4100 #### [facility] [address] [place], [address] RBC (Bld) [#/Vol] 4.70 10*6/uL Normal 4.6-6.2 [facility] Comment on above: Performed By: #### L 501.9520, L501.4020, L500.4100 #### [facility] [address] [place], [address] RDW SD 41.4 fl Normal 35.1-43.9 [facility] Comment on above: Performed By: #### L 501.9520, L501.4020, L500.4100 #### [facility] [address] [place], [address] WBC (Bld) [#/Vol] 14.2 10*3/uL High 4.4-11.0 [facility] Comment on above: Performed By: #### L 501.9520, L501.4020, L500.4100 #### [facility] [address] [place], [address] Gram stainOrdered By: Manav Fernandez on 06-05-2024 Microscopic observation Gram stain Nom (Unsp spec) [facility] High density lipoprotein (HD L) measurementOrdered By: Manav Fernandez on 06-05-2024 Cholesterol in HDL [Mass/Vol] 36 mg/dL Low >40 [facility] Comment on above: The drugs N-Acetylcy steine and Metamizole may falsely depress this assay. Reference Range HDL <40 mg/dL Low HDL Cholesterol HDL >or= 60 mg/dL High HDL Cholesterol L501.4020on 06-05-2024 TROPONIN-I HS 19 pg/mL Normal 3.0-78.0 [facility] Comment on above: Order Comment: 'TROP ' Serial specimen #1, #2 or #3: 2 Result Comment: Arleen armstrong Note: New Test Units and Gender Specific Reference Ranges. For more information see Policy Stat Procedure [place] High Sensitivity Troponin (TNIH) and attachments. Performed By: #### L 501.9520, L501.4020, L500.4100 #### [facility] [address] [place], [address] Lactic Acidon 06-05-2024 Lactate [Moles/Vol] 1.7 mmol/L Normal 0.4-1.9 [facility] Comment on above: Performed By: #### L 501.9520, L501.4020, L500.4100 #### [facility] [address] [place], [address] Lactic acid measurementOrder ed By: Gui Paredes on 06-05-2024 Lactate [Moles/Vol] 1.7 mmol/L 0.4-2.0 [facility] Legionella Antigen Urineon 0 06-05-2024 LEGU URINE, CLEAN CATCH Legionella Antigen result interpretation: L pneumo Ag Ur Ql Negative Presumptive negative for Legionella pneumophila serogroup 1 antigen in urine, suggesting no recent or current infection. Legionella Ag, Urine Negative (See interpretation below) Normal [facility] Comment on above: Performed By: #### L 300.3900 #### [facility] [address] [place], [address] Lipid Profileon 06-05-2024 Cholesterol [Mass/Vol] 111 mg/dL Normal 200 [facility] Comment on above: Order Comment: 'TROP ' Serial specimen #1, #2 or #3: 2 Result Comment: <200 mg/dL Desirable 200-240 mg/dL Borderline >240 mg/dL High Risk Performed By: #### L 501.9520, L501.4020, L500.4100 #### [facility] [address] [place], [address] Cholesterol in HDL [Mass/Vol] 36 mg/dL Low [facility] Comment on above: Order Comment: 'TROP ' Serial specimen #1, #2 or #3: 2 Result Comment: The drugs N-Acetylcysteine and Metamizole may falsely depress this assay. Reference Range HDL <40 mg/dL Low HDL Cholesterol HDL >or= 60 mg/dL High HDL Cholesterol Performed By: #### L 501.9520, L501.4020, L500.4100 #### [facility] [address] [place], [address] Cholesterol in LDL [Mass/Vol] 39 mg/dL Normal 0-130 [facility] Comment on above: Order Comment: 'TROP ' Serial specimen #1, #2 or #3: 2 Performed By: #### L 501.9520, L501.4020, L500.4100 #### [facility] [address] [place], [address] Cholesterol in VLDL [Mass/Vol] 36 mg/dL Normal 5-40 [facility] Comment on above: Order Comment: 'TROP ' Serial specimen #1, #2 or #3: 2 Performed By: #### L 501.9520, L501.4020, L500.4100 #### [facility] [address] [place], [address] Triglyceride [Mass/Vol] 178 mg/dL Normal [facility] Comment on above: Order Comment: 'TROP ' Serial specimen #1, #2 or #3: 2 Result Comment: The drugs N-Acetylcysteine and Metamizole may falsely depress this assay. Serum Triglycerides Reference Interval Normal <150 mg/dL Borderline high 150 - 199 mg/dL High 200 - 499 mg/dL Very High > or = 500 mg/dL Performed By: #### L 501.9520, L501.4020, L500.4100 #### [facility] [address] [place], [address] Low density lipoprotein (LDL ) cholesterol measurementOrdered By: Manav Fernandez on 06-05-2024 Cholesterol in LDL [Mass/Vol] 39 mg/dL 0-130 [facility] Microorganism identified Cx Nom (Unsp spec)Ordered By: Manav Fernandez on 06-05-2024 Respiratory Culture or Staphylococcus au reus isolated. [facility] Prothrombin Time w/INRon INR Coag (PPP) [Relative time] 2.8 {INR} Normal [facility] Comment on above: Performed By: #### L 501.9520, L501.4020, L500.4100 #### [facility] [address] [place], [address] PT Coag (PPP) [Time] 29.7 s High 11.7-14.9 [facility] Comment on above: Performed By: #### L 501.9520, L501.4020, L500.4100 #### [facility] [address] [place], [address] RESPIRATORY PANEL MOLECULARo n 06-05-2024 RP PANEL ADENOVIRUS Not Detected INFLUENZA A Not Detected INFLUENZA A (SUBTYPE H1) Not Detected INFLUENZA A (SUBTYPE H3) Not Detected INFLUENZA B Not Detected HUMAN METAPHNEUMO Not Detected PARAINFLUENZA 1 Not Detected PARAINFLUENZA 2 Not Detected PARAINFLUENZA 3 Not Detected PARAINFLUENZA 4 Not Detected RHINOVIRUS Not Detected RSV A Not Detected RSV B Not Detected Normal [facility] Comment on above: Performed By: #### L 100.0100, L500.2500 #### [facility] [address] [place], [place], [id number] Respiratory pathogens DNA an d RNA panel DESEAN+probe (Resp)Ordered By: Gui Paredes on 06-05-2024 Respiratory Panel (PCR) [facility] Serum or plasma cholesterol measurement (mass/volume)Ordered By: Manav Fernandze on 06-05-2024 Cholesterol [Mass/Vol] 111 mg/dL <200 [facility] Comment on above: <200 mg/dL Desirable 200-240 mg/dL Borderline >240 mg/dL High Risk Strep pneumoniae Antig(UR,CS F)on 06-05-2024 STPAG URINE INTERPRETATION Strep pneumoniae Antig(UR,CSF) Strep pneumoniae Antig(UR,CSF) Negative Urine Presumptive negative for pneumococcal pneumonia, suggesting no current or recent pneumococcal infection. Infection due to S pneumoniae cannot be ruled out since the antigen present in the sample may be below the detection limit of the test. Strep pneumo Test Negative URINE (See interpretation below) Normal [facility] Comment on above: Performed By: #### L 300.3900 #### [facility] [address] [facility] [place], [place], [id number] TSH QnOrdered By: Manav hagan on 06-05-2024 Thyroid Stimulating Hormone (TSH) 0.575 uIU/mL 0.358-3.74 0 [facility] Thyroid Stim Hormone (TSH)on 06-05-2024 TSH 0.575 uIU/mL Normal 0.358-3.74 0 [facility] Comment on above: Order Comment: 'TROP ' Serial specimen #1, #2 or #3: 2 Performed By: #### L 501.9520, L501.4020, L500.4100 #### [facility] [address] [facility] [place], [place], [id number] Triglycerides measurementOrd ered By: Manav Fernandez on 06-05-2024 Triglyceride [Mass/Vol] 178 mg/dL <199 [facility] Comment on above: The drugs N-Acetylcy steine and Metamizole may falsely depress this assay.Serum Triglycerides Reference Interval Normal <150 mg/dL Borderline high 150 - 199 mg/dL High 200 - 499 mg/dL Very High > or = 500 mg/dL Troponin IOrdered By: Manav Fernandez on 06-05-2024 Troponin I High Sensitivity 19 pg/mL 3.0-78.0 [facility] Comment on above: Please Note: New [place] t Units and Gender Specific Reference Ranges. For more information see Policy Stat Procedure [place] High Sensitivity Troponin (TNIH) and attachments. Urine Cultureon 06-05-2024 URC Culture exhibits no growth. Normal [facility] Comment on above: Performed By: #### L 501.9520, L501.4020, L500.4100 #### [facility] [address] [place], [place], [address] Vancomycin trough [Mass/Vol] Ordered By: Manav Fernandez on 06-05-2024 Vancomycin Level Trough 18.4 ug/mL High 5.0-15.0 [facility] Comment on above: VANCOMYCIN STANDARED DRUG THERAPY TROUGH LEVEL: 5.0 - 15.0 mg/L VANCOMYCIN HIGH INTENSITY THERAPY TROUGH LEVEL: 15.0 - 20.0 mg/L High Intensity therapy recommended for serious lifethreatening infections include:- Jhzgaohmbi-Cvgfhkflxkqa-Rdmyzwcpg (Ventilator/Healtcare Associated)-Sepsis PLEASE CONTACT PHARMACY SERVICES (#[id number]) FOR INTERPRETATIONOF RESULTS. Vancomycin, Trough Levelon 0 06-05-2024 VANCO, TROUGH 18.4 ug/mL High 5.0-15.0 [facility] Comment on above: Order Comment: 'TROP ' Serial specimen #1, #2 or #3: 2 Result Comment: VANC OMYCIN STANDARED DRUG THERAPY TROUGH LEVEL: 5.0 - 15.0 mg/L VANCOMYCIN HIGH INTENSITY THERAPY TROUGH LEVEL: 15.0 - 20.0 mg/L High Intensity therapy recommended for serious life threatening infections include: - Meningitis -Endocarditis -Pneumonia (Ventilator/Healtcare Associated) -Sepsis PLEASE CONTACT PHARMACY SERVICES (#[id number]) FOR INTERPRETATION OF RESULTS. Performed By: #### L 501.9520, L501.4020, L500.4100 #### [facility] [address] [place], [place], [address] Very low density lipoprotein (VLDL) cholesterol measurementOrdered By: Manav Fernandez on 06-05-2024 VLDL Cholesterol 36 mg/dL 5-40 [facility] 12 Lead EKGon 06-04-2024 12 Lead EKG [facility] [address] [place] [address] 12 Lead EKG 06/04/24 1932 MR#: [id number] Acct: [id number] Name: GEORGIE ELIZABETH Rep #: [id number] : 1970 54 From: Tab Fontaine MD Attending Dr: Dr. Lyndsey Garza MD Status: AD M IN Ordering Dr: Gui Paredes DO Date: 06/04/24 Location: ICU Sex: M C Admitted: 06/05/24 Test Reason : CP Blood Pressure : */* mmHG Vent. Rate : 108 BPM Atrial Rate : 108 BPM P-R Int : 162 ms QRS Dur : 152 ms QT Int : 356 ms P-R-T Axes : 82 2 164 degrees QTcB Int : 477 ms Sinus tachycardia Left bundle branch block Abnormal ECG Confirmed by TAB FONTAINE MD ([id number]), deputy editor in chief IVÁN BENEDICT ([id number]) on 06/05/2024 8:25:57 AM Referred By: CG Confirmed By: TAB FONTAINE MD 06/05/24825 Date Tab Fontaine MD CC: Dr. Gui Paredes DO; Dr. Lyndsey Garza MD; GERONIMO THRASHER Signed Normal [facility] Basic Metabolic Profile (BMP )on 06-04-2024 BUN/CRE 13.3 RATIO Normal 10-20 [facility] Comment on above: Order Comment: 'TROP ' Serial specimen #1, #2 or #3: 1 Performed By: #### L 100.0100, L500.2500 #### [facility] [address] [place], [address] CA,Total 9.4 mg/dL Normal 8.5-10.1 [facility] Comment on above: Order Comment: 'TROP ' Serial specimen #1, #2 or #3: 1 Performed By: #### L 100.0100, L500.2500 #### [facility] [address] [place], [address] Chloride [Moles/Vol] 104 mmol/L Normal 98-107 [facility] Comment on above: Order Comment: 'TROP ' Serial specimen #1, #2 or #3: 1 Performed By: #### L 100.0100, L500.2500 #### [facility] [address] [place], [address] CO2 [Moles/Vol] 26.0 mmol/L Normal 21.0-32.0 [facility] Comment on above: Order Comment: 'TROP ' Serial specimen #1, #2 or #3: 1 Performed By: #### L 100.0100, L500.2500 #### [facility] [address] [place], [address] Creatinine [Mass/Vol] 0.98 mg/dL Normal 0.70-1.30 [facility] Comment on above: Order Comment: 'TROP ' Serial specimen #1, #2 or #3: 1 Result Comment: The validity of the calculated GFR GFRAA in patients over 70 years has not been determined. Clinical correlation is essential. Performed By: #### L 100.0100, L500.2500 #### [facility] [address] [place], [address] ECRCL 122.39 ml/min Normal [facility] Comment on above: Order Comment: 'TROP ' Serial specimen #1, #2 or #3: 1 Performed By: #### L 100.0100, L500.2500 #### [facility] [address] [place], [address] EST GFR - AA 103 mL/min Normal >60 [facility] Comment on above: Order Comment: 'TROP ' Serial specimen #1, #2 or #3: 1 Result Comment: Afri can Citizen Of [place] GFR Calc Performed By: #### L 100.0100, L500.2500 #### [facility] [address] [place], [address] GAP 7 Normal 5-15 [facility] Comment on above: Order Comment: 'TROP ' Serial specimen #1, #2 or #3: 1 Performed By: #### L 100.0100, L500.2500 #### [facility] [address] [place], [address] GFR/1.73 sq M.predicted among non-blacks MDRD (S/P/Bld) [Vol rate/Area] 85 mL/min/{1.73_m2} Normal >60 [facility] Comment on above: Order Comment: 'TROP ' Serial specimen #1, #2 or #3: 1 Result Comment: Non- GFR Calc Performed By: #### L 100.0100, L500.2500 #### [facility] [address] [place], [address] Glucose [Mass/Vol] 112 mg/dL High 74-106 [facility] Comment on above: Order Comment: 'TROP ' Serial specimen #1, #2 or #3: 1 Result Comment: Fast ing Glucose result from 100 to 125 mg/dL suggests IMPAIRED HOMEOSTASIS per A.D.A. criteria. Performed By: #### L 100.0100, L500.2500 #### [facility] [address] [place], [address] Potassium [Moles/Vol] 4.2 mmol/L Normal 3.5-5.1 [facility] Comment on above: Order Comment: 'TROP ' Serial specimen #1, #2 or #3: 1 Performed By: #### L 100.0100, L500.2500 #### [facility] [address] [place], [address] Sodium [Moles/Vol] 136 mmol/L Normal 136-145 [facility] Comment on above: Order Comment: 'TROP ' Serial specimen #1, #2 or #3: 1 Performed By: #### L 100.0100, L500.2500 #### [facility] [address] [place], [address] Urea nitrogen [Mass/Vol] 13 mg/dL Normal 7-18 [facility] Comment on above: Order Comment: 'TROP ' Serial specimen #1, #2 or #3: 1 Performed By: #### L 100.0100, L500.2500 #### [facility] [address] [place], [address] Bilirubin Test strip Ql (U)O rdered By: Gui Paredes on 06-04-2024 Bilirubin Ql (U) Negative Negative [facility] Blood cultureOrdered By: Anjali Paredes on 06-04-2024 Bacteria identified Cx Nom (Bld) No growth in 5 days. [facility] Bacteria identified Cx Nom (Bld) [facility] CBC W/Diff, Automatedon 02- Absolute Lymph 0.88 X10 3/uL Normal 0.83-4.51 [facility] Comment on above: Performed By: #### L 100.0100, L500.2500 #### [facility] [address] [place], [address] Absolute Neut 10.9 X10 3/uL High 2.0-7.7 [facility] Comment on above: Performed By: #### L 100.0100, L500.2500 #### [facility] [address] [place], [address] Basophils/100 WBC (Bld) 0.2 % Normal 0-1 [facility] Comment on above: Performed By: #### L 100.0100, L500.2500 #### [facility] [address] [place], [address] Eosinophils/100 WBC (Bld) 0.5 % Normal 0-5 [facility] Comment on above: Performed By: #### L 100.0100, L500.2500 #### [facility] [address] [place], [address] Erythrocyte distribution width (RBC) [Ratio] 13.4 % Normal 11.6-14.6 [facility] Comment on above: Performed By: #### L 100.0100, L500.2500 #### [facility] [address] [place], [address] Hematocrit (Bld) [Volume fraction] 45.8 % Normal 40-54 [facility] Comment on above: Performed By: #### L 100.0100, L500.2500 #### [facility] [address] [place], [address] Hemoglobin (Bld) [Mass/Vol] 15.0 g/dL Normal 13.0-16.5 [facility] Comment on above: Performed By: #### L 100.0100, L500.2500 #### [facility] [address] [place], [address] IG% 0.200 Normal 0.0-0.9 [facility] Comment on above: Result Comment: IG% - Immature Granulocytes (promyelocytes, myelocytes and metamyelocytes) > 1% indicates that a LEFT SHIFT is Present. Performed By: #### L 100.0100, L500.2500 #### [facility] [address] [facility] [place], [address] Lymphocytes/100 WBC (Bld) 6.8 % Low 19-41 [facility] Comment on above: Performed By: #### L 100.0100, L500.2500 #### [facility] [address] [place], [address] MCH (RBC) [Entitic mass] 26.7 pg Low 27.0-32.0 [facility] Comment on above: Performed By: #### L 100.0100, L500.2500 #### [facility] [address] [place], [address] MCHC (RBC) [Mass/Vol] 32.8 g/dL Normal 32-36 [facility] Comment on above: Performed By: #### L 100.0100, L500.2500 #### [facility] [address] [place], [address] MCV (RBC) [Entitic vol] 81.6 fL Normal 80-94 [facility] Comment on above: Performed By: #### L 100.0100, L500.2500 #### [facility] [address] [place], [address] Monocytes/100 WBC (Bld) 7.8 % Normal 0-10 [facility] Comment on above: Performed By: #### L 100.0100, L500.2500 #### [facility] [address] [place], [address] Neutrophils/100 WBC (Bld) 84.5 % High 47-70 [facility] Comment on above: Performed By: #### L 100.0100, L500.2500 #### [facility] [address] [place], [address] Nucleated RBC (Bld) [#/Vol] 0 10*3/uL Normal 0-5 [facility] Comment on above: Performed By: #### L 100.0100, L500.2500 #### [facility] [address] [place], [address] Platelet mean volume (Bld) [Entitic vol] 8.9 fL Normal 6.2-12.0 [facility] Comment on above: Performed By: #### L 100.0100, L500.2500 #### [facility] [address] [place], [address] Platelets (Bld) [#/Vol] 341 10*3/uL Normal 150-450 [facility] Comment on above: Performed By: #### L 100.0100, L500.2500 #### [facility] [address] [place], [address] RBC (Bld) [#/Vol] 5.61 10*6/uL Normal 4.6-6.2 [facility] Comment on above: Performed By: #### L 100.0100, L500.2500 #### [facility] [address] [place], [address] RDW SD 39.8 fl Normal 35.1-43.9 [facility] Comment on above: Performed By: #### L 100.0100, L500.2500 #### [facility] [address] [place], [address] WBC (Bld) [#/Vol] 12.9 10*3/uL High 4.4-11.0 [facility] Comment on above: Performed By: #### L 100.0100, L500.2500 #### [facility] [address] [place], [address] CT Chest, Abd, Pel w/Contras ton 06-04-2024 CT Chest, Abd, Pel w/Contrast [facility] Imaging Services [address] [place] [address] CT Chest, Abd, Pel w/Contrast MR#: [id number] Acct: [id number] Name: GEORGIE ELIZABETH Rep #: [id number] : 1970 M 54 From: [facility] PCP: GERONIMO THRASHER Status: ADM IN Study: CT Chest, Abd, Pel w/Contrast Date of Exam: Exam# [id number] Ordering Dr: Gui Paredes DO PROCEDURE: CT CHEST, ABD, PEL W/CONTRAST REASON FOR EXAM: Chest pain, shortness of breath, low back pain, dizziness, fever. TECHNIQUE: Chest, abdomen and pelvis CT with intravenous contrast. COMPARISON: Chest x-ray from 06/04/2024. CT abdomen/pelvis from 04/20/2023. FINDINGS: CT CHEST: Cardiac size is within normal limits. Thoracic aorta demonstrates normal caliber. Left vertebral artery originates from the aortic arch. There are small mediastinal lymph nodes. No lymphadenopathy is present. Multivessel coronary artery calcifications are present. No pericardial or pleural effusion is identified. There is a hypodense nodule in the right thyroid lobe posteriorly measuring 11 mm. Evaluation of the lung parenchyma demonstrates ground-glass nodular opacities in the right upper lobe, right middle lobe, and right lower lobe likely an infectious inflammatory basis. No pneumothorax is present. Central airway is patent. Evaluation of the osseous structures demonstrates no acute findings. Mild degenerative changes are present. Sternotomy wires are present. CT ABDOMEN/PELVIS: The liver and spleen enhance homogeneously. There is cholelithiasis with no CT evidence of acute cholecystitis. Pancreas, biliary system, and adrenal glands are unremarkable. Abdominal aorta demonstrates normal caliber. There is a small fat containing umbilical hernia. Bilateral kidneys enhance homogeneously without hydronephrosis or hydroureter. There is a nonobstructing lower pole left renal stone measuring 8 mm an additional lower pole nonobstructing left renal stone measuring 2 mm. There is a left renal cyst measuring 22 mm. Urinary bladder is smoothly contoured. Punctate prostate calcification is present. Colonic diverticulosis is identified without diverticulitis. There is mild retained stool in the colon without obstruction. There are no acute inflammatory changes of the appendix. However, there is hyperdense material within the distal appendix with metallic spray artifact. Small bowel demonstrates a normal caliber. No free air or free fluid is identified. No acute osseous abnormality is present. There is mild levoscoliosis. Mild degenerative changes are present. CT/CT Chest, Abd, Pel w/Contrast IMPRESSION: 1. Ground-glass pulmonary nodular opacities involving the right lung likely on an infectious inflammatory basis. 2. Cholelithiasis with no CT evidence of acute cholecystitis. 3. Nonobstructing lower pole left renal stones. 4. Colonic diverticulosis without diverticulitis. 5. No acute inflammatory changes involving the appendix however there is hyperdense material within the distal appendix with metallic spray artifact. 6. Additional findings as above. One or more dose reduction techniques were used (e.g., Automated exposure control, adjustment of the mA and/or kV according to patient size, use of iterative reconstruction technique). Reading Location: [facility] CC: Dr. Gui Paredes, DOGeraldo THRASHER Precision Dancer: Signed Normal [facility] Chest PA and Lateralon 06-04 Chest PA and Lateral [facility] Imaging Services [address] [place], [place] [id number] Chest PA and Lateral MR#: [id number] Acct: [id number] Name: GEORGIE ELIZABETH Rep #: [id number] : 1970 M 54 From: Gui Montes MD PCP: GERONIMO THRASHER Status: REG ER Study: Chest PA and Lateral Date of Exam: 06/04/24 Exam# [id number] Ordering Dr: Gui Paredes DO PROCEDURE: CHEST PA AND LATERAL REASON FOR EXAM: Chest pain. Shortness of breath. Weakness. Dizziness. Dysuria TECHNIQUE: Single frontal image including the chest and upper abdomen. COMPARISON: 03/23/2022 FINDINGS: Lungs are clear of pneumonia and congestion. Old healed granulomatous changes. No pleural effusions, thickening, or pneumothorax. Heart and mediastinum are normal. No hilar masses. Bones and soft tissues are unremarkable. Median sternotomy wires are present. Cardiac monitoring leads overlie the chest wall. RAD/Chest PA and Lateral IMPRESSION: No active cardiopulmonary disease. Reading Location: [facility] CC: Dr. Gui Paredes DO; GERONIMO THRASHER Precision Dancer: Signed Normal [facility] Emergency Department Summary on 06-04-2024 Emergency Department Summary [facility] Medical Records Department [address] [place] [address] Emergency Department Summary 06/04/24 MR#: [id number] Acct: [id number] Name: GEORGIE ELIZABETH Rep #: [id number] : 1970 54 From: Gui Paredes DO PCP: GERONIMO THRASHER Status:REG ER Location: ED HPI History of Present Illness Chief Complaint: Chest Pain Informant: patient Onset/Context/Timing Onset: Today Activity at onset: sudden Timing: Continuous Quality: Positive for Sharp Location: Left Parasternal Worsened By: Nothing Relieved By: Nothing Associated Symptoms: Positive for Nausea, Dyspnea, Cough, Fever, Lightheadedness, Acid Reflux and Palpitations; Negative for Vomiting or Diaphoresis Narrative Narrative: Patient presents with chest pain that began today. Patient states it began rather suddenly. Patient states it is constant. Patient admits to fevers and chills. Patient also admits to some nausea. Patient admits to some cough and shortness of breath. Patient also admits to some lightheadedness and palpitations. Patient states nothing makes his pain better and nothing makes it worse. Patient states his pain is mainly over the left parasternal area. Patient admits to some dysuria. Patient states he has a history of urinary tract infections in the past due to urethral stricture. Patient is also concerned because he has an artificial mitral valve. [facility] Medical History (Updated 06/04/24 @ 23:[address] 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 Home Medications ???Medication ???Instructions ???Recorded ???Last Taken ???Type rosuvastatin 20 mg tablet 20 mg PO DAILY 02/18/20 Unknown Hi story melatonin 10 mg tablet 10 mg PO QHS 01/01/22 Unknown Hist ory hydrocodone-acetaminophen 5-325mg 1 tab PO Q6H PRN PRN Pain 3 days 10/04/23 Unknown Rx 5mg-325mg #10 TABLETS aspirin 81 mg capsule 81 mg PO DAILY 06/04/24 Unknown Hi story coenzyme Q10 100 mg capsule (Co 100 mg PO DAILY 06/04/24 Unknown H istory Q-10) dicyclomine 10 mg capsule 10 mg PO TID 06/04/24 Unknown Hist ory metoprolol succinate 50 mg 50 mg PO DAILY 06/04/24 Unknown Hi story tablet,extended release 24 hr pantoprazole 40 mg tablet,delayed 40 mg PO DAILY 06/04/24 Unknown H istory release (Protonix) warfarin 10 mg tablet (Jantoven) 10 mg PO SUTH 06/04/24 Unknown His tory warfarin 5 mg tablet (Jantoven) 12.5 mg PO MOTUWEFRSA 06/04/24 Unk nown History Allergy/AdvReac Type Severity Reaction Status Date / Time Sulfa (Sulfonamide Allergy PT UNSURE Verified 06/04/24 19:30 Antibiotics) OF REACTION codeine AdvReac Other Verified 06/04/24 19:30 Family History Sister Colon cancer Father CAD (coronary artery disease) Myocardial infarction Surgical History (Updated 06/04/24 @ 23:[address] Gui Paredes, DO) H/O mitral valve replacement with mechanical valve History of ureter repair History of cardiac catheterization History of open heart surgery History of ventricular septal myectomy S/P MVR (mitral valve replacement) Hx of colonoscopy History of tonsillectomy and adenoidectomy Social History Smoking Status: Never smoker ROS ROS ED Constitutional Constitutional ED: Reports fever(s) and subjective; Denies chills Eyes Eyes: Denies blurry vision or change in vision ENT ENT ED: Reports sore throat; Denies rhinorrhea Cardiovascular Cardiovascular: Reports chest pain and palpitations Respiratory/Chest Respiratory/Chest: Reports cough and dyspnea Gastrointestinal Gastrointestinal: Reports nausea; Denies vomiting Genitourinary Genitourinary ED: Reports dysuria; Denies hematuria Musculoskeletal Musculoskeletal: Reports back pain; Denies neck pain Integumentary Denies abscess or rash Neurologic Neurologic: Reports headache(s); Denies weakness Allergic/Immunologic Allergic/Immunologic ED: Denies mouth swelling or urticaria EXAM Physical Exam Const Vital Signs: 06/04/24 19:25 06/04/24 20:07 06/04/24 20:07 Temperature 102 F H Temperature Source Oral Pulse Rate 102 H Respiratory Rate 20 H Respiratory Effort Normal Non-Labored Normal Non-Labored Respiratory Pattern Normal Normal Blood Pressure 110/79 Blood Pressure Mean 89 Pulse Ox 98 Oxygen Delivery Method Room Air 06/04/24 20:30 06/04/24 21:00 06/04/24 22:00 Temperature 101.6 F (more content not included)... Normal [facility] Epithelial cells.squamous LM Ql (Urine sed)Ordered By: Gui Paredes on 06-04-2024 Epithelial cells.squamous LM.HPF (Urine sed) [#/Area] 0 /[HPF] 0-5 [facility] Glucose Ql (U)Ordered By: Derrick Paredes on 06-04-2024 Urine Glucose (UA) Normal mg/dl Normal [facility] H AND P Exam - [place] 06-04-2024 H&P Exam - Hospitalist [facility] Medical Records Department [address] [place] [address] H P Exam - Hospitalist 06/04/24 [id number] MR#: [id number] Acct: [id number] Name: GEORGIE ELIZABETH Rep #: [id number] : 1970 54 From: Manav Martino DO PCP: GERONIMO THRASHER Status:ADM IN Location: ICU ICU05-1 HPI - General General Date of Admission: 06/05/24 Date of Service: 06/04/24 Chief Complaint: Fever, Chest Pain and SOB. HPI Narrative GEORGIE ELIZABETH, is a 54 M with a past medical history of essential hypertension; on metoprolol, hyperlipidemia; on rosuvastatin, obesity; with BMI of 32.4 this admission, Central Sleep Apnea; on servo ventilator, history of HOCM; s/p ventricular septal myomectomy, history of mechanical mitral valve replacement; on warfarin, history of irregular heart beat, history of LBBB, history of GERD; with Allen's esophagus, history of gallstones, history of urethral stricture; with history of UTIs, history of ureteral repair and history of chronic prostatitis who presents to [facility] ER complaining of fever, chest pain and SOB. Mr. Elizabeth reports his symptoms began approximately 1 day prior to admission with a gradual-onset of progressively worsening fever, chills and malaise followed by nonproductive cough with associated pleuritic chest pain. He also admits to some lightheadedness with palpitations with nothing seeming to make his pain better or worse. He states his pain is primarily focused over the Left parasternal area but does not radiate into his back, arm or jaw. Ironically, he remembered recently speaking to his sister saying that he has never had pneumonia in the past just within the last few days. He admits to nausea and mild dysuria but he denies vomiting, constipation, diarrhea or focal neurologic deficits. In the ER he was noted to have CT evidence of ground-glass pulmonary nodular opacities involving the Right lung on an infectious/inflammatory basis with corresponding laboratory evidence of Leukocytosis of 12.9 K and Lactic Acidosis of 2.2 mmol/L with Fever of 101.6 degrees Fahrenheit present on admission consistent with suspected Sepsis along with a therapeutic INR of 2.8 with the patient saturating near 100% on RA and he was then admitted to the ICU for ongoing treatment under the sepsis protocol for stay that is expected to extend beyond 2 midnights. [facility] Medical History (Updated 06/05/24 @ 00:[address] Manav Martino, DO) Hypertrophic obstructive cardiomyopathy High cholesterol Easy bruising Excessive bleeding Gastric reflux Non-smoker Sleep apnea History of echocardiogram History of stress test Cardiology follow-up encounter History of irregular heartbeat History of ureteral obstruction Hypercholesteremia 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 Home Medications ???Medication ???Instructions ???Recorded ???Last Taken ???Type rosuvastatin 20 mg tablet 20 mg PO DAILY 02/18/20 Unknown Hi story melatonin 10 mg tablet 10 mg PO QHS 01/01/22 Unknown Hist ory hydrocodone-acetaminophen 5-325mg 1 tab PO Q6H PRN PRN Pain 3 days 10/04/23 Unknown Rx 5mg-325mg #10 TABLETS aspirin 81 mg capsule 81 mg PO DAILY 06/04/24 Unknown Hi story coenzyme Q10 100 mg capsule (Co 100 mg PO DAILY 06/04/24 Unknown H istory Q-10) dicyclomine 10 mg capsule 10 mg PO TID 06/04/24 Unknown Hist ory metoprolol succinate 50 mg 50 mg PO DAILY 06/04/24 Unknown Hi story tablet,extended release 24 hr pantoprazole 40 mg tablet,delayed 40 mg PO DAILY 06/04/24 Unknown H istory release (Protonix) warfarin 10 mg tablet (Jantoven) 10 mg PO SUTH 06/04/24 Unknown His tory warfarin 5 mg tablet (Jantoven) 12.5 mg PO MOTUWEFRSA 06/04/24 Unk nown History Allergy/AdvReac Type Severity Reaction Status Date / Time Sulfa (Sulfonamide Allergy PT UNSURE Verified 06/04/24 19:30 Antibiotics) OF REACTION codeine AdvReac Other Verified 06/04/24 19:30 Family History Sister Colon cancer Father CAD (coronary artery disease) Myocardial infarction Surgical History (Updated 06/04/24 @ 23:[address] Gui Paredes, DO) H/O mitral valve replacement with mechanical valve History of ureter repair History of cardiac catheterization History of open heart surgery History of ventricular septal myectomy S/P MVR (mitral valve replacement) Hx of colonoscopy History of tonsillectomy and adenoidectomy Social History Smoking Status: Never smoker ROS ROS Narrative Review of Systems: Constitutional: Patient admits to fever of 101.6 ???F confirmed in ER with chills. Eyes: Patient denies changes in vision or discharge from eyes. ENT: Patient admits to sore throat but he denies runny nose or ear pain. Res (more content not included)... Normal [facility] Influenza virus A and B and SARS-CoV-2 (COVID-19) and Respiratory syncytial virus RNAOrdered By: Gui Paredes on 06-04-2024 SARS-CoV-2 (COVID-19) RNA DESEAN+probe Ql (Unsp spec) [facility] Ketones Test strip Ql (U)Ord ered By: Gui Paredes on 06-04-2024 Ketones Ql (U) Negative Negative [facility] L. pneumophila Ag Ql (U)Orde red By: Manav Fernandez on 06-04-2024 Legionella Antigen [facility] L501.4020on 06-04-2024 TROPONIN-I HS 20 pg/mL Normal 3.0-78.0 [facility] Comment on above: Order Comment: 'TROP ' Serial specimen #1, #2 or #3: 1 Result Comment: Arleen armstrong Note: New Test Units and Gender Specific Reference Ranges. For more information see Policy Stat Procedure [place] High Sensitivity Troponin (TNIH) and attachments. Performed By: #### L 100.0100, L500.2500 #### [facility] [address] [place], [place], [address] Lactic Acidon 06-04-2024 Lactate [Moles/Vol] 2.2 mmol/L Invalid Interpretation Code 0.4-1.9 [facility] Comment on above: Order Comment: Y Result Comment: Crit ical Result(s) Called at: 21:13:58 06/04/2024 by: Melba Trivedi to Jj Arrington. Results read back by same. Performed By: #### L 100.0100, L500.2500 #### [facility] [address] [place], [address] M100.678on 06-04-2024 M100.678 Pending SARS-CoV-2 (COVID 19) Negative INFLUENZA A Negative INFLUENZA B Negative RSV PCR Negative Normal [facility] Comment on above: Performed By: #### L 501.9520, L501.4020, L500.4100 #### [facility] [address] [place], [address] Microscopic analysis of urin e for red blood cells (RBC)Ordered By: Gui Paredes on 06-04-2024 Urine RBC 0-5 SEEN /hpf 0-5 [facility] Mucus LM Ql (Urine sed)Order ed By: Gui Paredes on 06-04-2024 Mucus Ql (Urine sed) 0 SEEN /hpf [facility] Nitrite Test strip Ql (U)Ord ered By: Gui Paredes on 06-04-2024 Nitrite Ql (U) Negative Negative [facility] Partial Thromboplast Timeon 06-04-2024 aPTT Coag (Bld) [Time] 40.0 s High 24.1-36.2 [facility] Comment on above: Performed By: #### L 100.0100, L500.2500 #### [facility] [address] [place], [address] Protein Test strip Ql (U)Ord ered By: Gui Paredes on 06-04-2024 Protein Ql (U) 15 mg/dl High Negative [facility] Prothrombin Time w/INRon INR Coag (PPP) [Relative time] 2.6 {INR} Normal [facility] Comment on above: Performed By: #### L 100.0100, L500.2500 #### [facility] [address] [place], [address] PT Coag (PPP) [Time] 28.1 s High 11.7-14.9 [facility] Comment on above: Performed By: #### L 100.0100, L500.2500 #### [facility] [address] [place], [address] Streptococcus pneumoniae ant igen assayOrdered By: Manav Fernandez on 06-04-2024 Streptococcus pneumoniae Antigen (M [facility] Urinalysis, Completeon 06-04 RBC 0-5 SEEN Normal 0-5 [facility] Comment on above: Order Comment: 'TROP ' Serial specimen #1, #2 or #3: 2 Performed By: #### L 501.9520, L501.4020, L500.4100 #### [facility] [address] [place], [address] BACTERIA 0 SEEN Normal None Seen [facility] Comment on above: Order Comment: 'TROP ' Serial specimen #1, #2 or #3: 2 Performed By: #### L 501.9520, L501.4020, L500.4100 #### [facility] [address] [place], [address] EPI,SQUAMOUS 0 SEEN Normal 0-5 [facility] Comment on above: Order Comment: 'TROP ' Serial specimen #1, #2 or #3: 2 Performed By: #### L 501.9520, L501.4020, L500.4100 #### [facility] [address] [place], [address] Mucus Ql (Urine sed) 0 SEEN Normal [facility] Comment on above: Order Comment: 'TROP ' Serial specimen #1, #2 or #3: 2 Performed By: #### L 501.9520, L501.4020, L500.4100 #### [facility] [address] [place], [address] WBC 0 SEEN Normal [address] [place] [address] Comment on above: Order Comment: 'TROP ' Serial specimen #1, #2 or #3: 2 Performed By: #### L 501.9520, L501.4020, L500.4100 #### [facility] [address] [place], [address] Urine blood detectionOrdered By: Gui Paredes on 06-04-2024 Urine Occult Blood 10 /ul High Negative [facility] Urine clarityOrdered By: Anjali Paredes on 06-04-2024 Clarity (U) Clear Clear [facility] Urine color determinationOrd ered By: Gui Paredes on 06-04-2024 Color (U) Yellow Yellow [facility] Urine cultureOrdered By: Anjali Paredes on 06-04-2024 Bacteria identified Cx Nom (U) Culture exhibits no growth. [facility] Urine leukocyte esterase det ection by dipstickOrdered By: Gui Paredes on 06-04-2024 Leukocyte esterase Test strip Ql (U) Negative Negative [facility] Urine pHOrdered By: Gui rod on 06-04-2024 pH (U) 6.0 [pH] 5.0 - 8.0 [facility] Urine sediment bacteria coun t by microscopy (number/high power field)Ordered By: Gui Paredes on 06-04-2024 Bacteria LM.HPF (Urine sed) [#/Area] 0 /[HPF] None Seen [facility] Urine specific gravity measu rementOrdered By: Gui Paredes on 06-04-2024 Specific gravity (U) [Rel density] 1.010 1.002-1.03 0 [facility] Urobilinogen Ql (U)Ordered B y: Gui Paredes on 06-04-2024 Urine Urobilinogen Normal mg/dl Normal [facility] White blood cell countOrdere d By: Gui Paredes on 06-04-2024 Urine WBC 0 SEEN /hpf 0-5 [facility] aPTT Coag (PPP) [Time]Ordere d By: Gui Paredes on 06-04-2024 aPTT Coag (Bld) [Time] 40.0 s High 24.1-36.2 [facility] CNPNon 05-31-2024 [facility] Telephone ([facility]) -- GEORGIE ELIZABETH ([id number]) 1970 M Date Time Provider Department 05/31/24 HARINI CESAR During your visit today, we recorded the following information about you: Harini Cesar [facility] 05/31/2024 9:25 AM Signed [facility] Ambulatory Pharmacy Anticoagulation Clinic Anticoagulation Episode Summary Anticoagulation Care Providers Provider Role Specialty Phone number Saurav Bob MD Referring Internal Medicine [phone] Georgie Elizabeth is a 54 year old year old male patient being evaluated today for a Lab INR. Patient is currently on the following anticoagulant(s) Warfarin. Labs PT INR (no units) Date Value 10/04/2023 2.0 07/11/2023 2.8 johanna per pt 01/26/2023 4.8 (self-reporting) INR Home CoaguChek (no units) Date Value 05/30/2024 2.1 05/11/2024 2.5 04/12/2024 2.2 Hemoglobin (g/dL) Date Value 05/24/2024 16.0 08/05/2015 14.6 Hematocrit (%) Date Value 05/24/2024 48.9 08/05/2015 43.7 Platelet Count (k/uL) Date Value 05/24/2024 337 08/05/2015 327 Creatinine (mg/dL) Date Value 05/24/2024 0.76 02/25/2024 0.90 08/03/2023 0.85 08/05/2015 1.09 08/05/2015 1.03 02/17/2015 0.99 Bilirubin, Total (mg/dL) Date Value 05/24/2024 1.5 08/05/2015 0.8 ALT (U/L) Date Value 05/24/2024 33 08/05/2015 34 AST (U/L) Date Value 05/24/2024 27 08/05/2015 23 Estimated Creatinine Clearance: 151.5 mL/min (based on SCr of 0.76 mg/dL). ALLERGIES Allergen Reactions Codeine Mental Status Change Sulfa Drugs [Sulfa * Myalgia Indication for Warfarin: Mechanical heart valve present senior care (current) use of anticoagulants History of mitral valve replacement with mechanical valve Anticoagulation Episode Summary Current INR goal: 2.5-3.5 Assessment: INR result of 2.1 is SUBtherapeutic due to: Increased vitamin k intake and Patient taking an incorrect warfarin dose He took 10mg on 05/27 instead of 12.5mg He also has had more vit K in [place] but will stop those for now. Plan: Current Warfarin Dosing As of 05/31/2024 Full warfarin instructions: 10 mg every Wed, Wed, Wed; 12.5 mg all other days Called and spoke to patient/caregiver Advised patient to continue current weekly dose as noted above Next lab INR check scheduled on 06/19/2024 Patient verbalizes understanding of the plan. Patient denies need for refills. Patient advised to call the PAC with any medication changes, bleeding/bruising concerns, recent changes in vitamin k consumption, if any procedures are coming up, if they have been ill or in the hospital, and if they have missed any doses of warfarin. Harini Cesar [facility] Clinical Pharmacist, Pharmacy Anticoagulation Clinic Pharmacy Anticoagulation Clinic Pager: [phone]. 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 - dicyclomine (BENTYL) 10 mg capsule Take 1 capsule by mouth three times a day as needed (for abdominal pain). - pantoprazole DR (PROTONIX) 40 mg tablet Take 1 tablet by mouth once daily. On empty stomach at least 30 minutes before eating. - coenzyme Q10 (CO Q-10) 100 mg cap capsule Take 1 capsule by mouth once daily. - warfarin (COUMADIN) 10 mg tablet Take 15 mg every Mon, Wed; 12.5 mg all other days or as directed by anticoagulation clinic. (Takes with 5 mg tablets) - warfarin (COUMADIN) 5 mg tablet Take 15 mg every Mon, Wed; 12.5 mg all other days or as directed by anticoagulation clinic. (Takes with 10 mg tablets) - rosuvastatin (CRESTOR) 20 mg tablet Take 1 tablet by mouth once daily. - CPAP/BIPAP/OTHER Type .CPAPSettings into a note to see current settings/supplies/DME information. - enoxaparin (LOVENOX) 120 mg/0.8 mL injection Inject 120 mg subcutaneously. - CPAP/BIPAP/OTHER Continue ASV with current settings of EPAP 5 cm H2O with PS 4-12 cmH2O. Lifetime supplies for ASV, including patient preferred mask, head gear, heated tubing, humidity, filters, chin strap. Dx: Obstructive Sleep Apnea G47.33 DME: [facility] - aspirin 81 mg chewable tablet Take 1 tablet by mouth once daily. - Melatonin 5 mg tab Take by mouth as needed. - ACETAMINOPHEN (TYLENOL EXTRA STRENGTH ORAL) Take by mouth as needed. Problem List As Of Date 05/31/2024 N (more content not included)... Normal [facility] CBC W Auto Differential pane l (Bld)on 05-24-2024 Basophils (Bld) [#/Vol] 0.06 10*3/uL Normal <0.11 [facility] Comment on above: Order Comment: Cecilia lobato Type: BLOOD SPECIMEN Ordering Facility: [facility] Address: [address] [place] [address] Performed By: #### 5 7021-8 #### [facility] CLIA [id number] [address] [place] [address] [place] Basophils/100 WBC (Bld) 0.9 % Normal [facility] Comment on above: Order Comment: Cecilia lobato Type: BLOOD SPECIMEN Ordering Facility: [facility] Address: [address] [place] [address] Performed By: #### 5 7021-8 #### [facility] CLIA [id number] [address] [place] [address] [place] Differential cell count method Nom (Bld) Auto Normal [facility] Comment on above: Order Comment: Speci men Type: BLOOD SPECIMEN Ordering Facility: [facility] Address: [address] [place] [address] Performed By: #### 5 7021-8 #### [facility] CLIA [id number] [address] Eosinophils (Bld) [#/Vol] 0.19 10*3/uL Normal <0.46 [facility] Comment on above: Order Comment: Speci men Type: BLOOD SPECIMEN Ordering Facility: [facility] Address: [address] [place] [address] Performed By: #### 5 7021-8 #### [facility] CLIA [id number] [address] Eosinophils/100 WBC (Bld) 2.8 % Normal [facility] Comment on above: Order Comment: Speci men Type: BLOOD SPECIMEN Ordering Facility: [facility] Address: [address] [place] [address] Performed By: #### 5 7021-8 #### [facility] CLIA [id number] [address] Erythrocyte distribution width (RBC) [Ratio] 13.8 % Normal 11.5-15.0 [facility] Comment on above: Order Comment: Speci men Type: BLOOD SPECIMEN Ordering Facility: [facility] Address: [address] [place] [address] Performed By: #### 5 7021-8 #### [facility] CLIA [id number] [address] Hematocrit (Bld) [Volume fraction] 48.9 % Normal 39.0-51.0 [facility] Comment on above: Order Comment: Speci men Type: BLOOD SPECIMEN Ordering Facility: [facility] Address: [facility] [place] [address] Performed By: #### 5 7021-8 #### [facility] CLIA [id number] [address] [place] [address] [place] Hemoglobin (Bld) [Mass/Vol] 16.0 g/dL Normal 13.0-17.0 [facility] Comment on above: Order Comment: Speci men Type: BLOOD SPECIMEN Ordering Facility: [facility] Address: [address] [place] [address] Performed By: #### 5 7021-8 #### [facility] CLIA [id number] [address] [place] Immature granulocytes (Bld) [#/Vol] 10*3/uL Normal <0.10 [facility] Comment on above: Order Comment: Speci men Type: BLOOD SPECIMEN Ordering Facility: [facility] Address: [address] [place] [address] Performed By: #### 5 7021-8 #### [facility] CLIA [id number] [address] Immature granulocytes/100 WBC (Bld) 0.1 % Normal [facility] Comment on above: Order Comment: Speci men Type: BLOOD SPECIMEN Ordering Facility: [facility] Address: [address] [place] [address] Performed By: #### 5 7021-8 #### [facility] CLIA [id number] [address] [place] Lymphocytes (Bld) [#/Vol] 2.60 10*3/uL Normal 1.00-4.00 [facility] Comment on above: Order Comment: Speci men Type: BLOOD SPECIMEN Ordering Facility: [facility] Address: [address] [place] [address] Performed By: #### 5 7021-8 #### [facility] CLIA [id number] [address] [place] Lymphocytes/100 WBC (Bld) 38.7 % Normal [facility] Comment on above: Order Comment: Speci men Type: BLOOD SPECIMEN Ordering Facility: [facility] Address: [facility] [place] [address] Performed By: #### 5 7021-8 #### [facility] CLIA [id number] [address] MCH (RBC) [Entitic mass] 27.7 pg Normal 26.0-34.0 [facility] Comment on above: Order Comment: Speci men Type: BLOOD SPECIMEN Ordering Facility: [facility] Address: [address] [place] [address] Performed By: #### 5 7021-8 #### [facility] CLIA [id number] [address] [place] MCHC (RBC) [Mass/Vol] 32.7 g/dL Normal 30.5-36.0 [facility] Comment on above: Order Comment: Speci men Type: BLOOD SPECIMEN Ordering Facility: [facility] Address: [address] [place] [address] Performed By: #### 5 7021-8 #### [facility] CLIA [id number] [address] MCV (RBC) [Entitic vol] 84.6 fL Normal 80.0-100.0 [facility] Comment on above: Order Comment: Speci men Type: BLOOD SPECIMEN Ordering Facility: [facility] Address: [address] [place] [address] Performed By: #### 5 7021-8 #### [facility] CLIA [id number] [address] Monocytes (Bld) [#/Vol] 0.87 10*3/uL High <0.87 [facility] Comment on above: Order Comment: Speci men Type: BLOOD SPECIMEN Ordering Facility: [facility] Address: [address] [place] [address] Performed By: #### 5 7021-8 #### [facility] CLIA [id number] [address] Monocytes/100 WBC (Bld) 13.0 % Normal [facility] Comment on above: Order Comment: Speci men Type: BLOOD SPECIMEN Ordering Facility: [facility] Address: [address] [place] [address] Performed By: #### 5 7021-8 #### [facility] CLIA [id number] [address] [place] Neutrophils (Bld) [#/Vol] 2.98 10*3/uL Normal 1.45-7.50 [facility] Comment on above: Order Comment: Speci men Type: BLOOD SPECIMEN Ordering Facility: [facility] Address: [address] [place] [address] Performed By: #### 5 7021-8 #### [facility] CLIA [id number] [address] [place] Neutrophils/100 WBC (Bld) 44.5 % Normal [facility] Comment on above: Order Comment: Speci men Type: BLOOD SPECIMEN Ordering Facility: [facility] Address: [address] [place] [address] Performed By: #### 5 7021-8 #### [facility] CLIA [id number] [address] [place] Nucleated RBC (Bld) [#/Vol] 10*3/uL Normal <0.01 [facility] Comment on above: Order Comment: Speci men Type: BLOOD SPECIMEN Ordering Facility: [facility] Address: [address] [place] [address] Performed By: #### 5 7021-8 #### [facility] CLIA [id number] [address] [place] Nucleated RBC/100 WBC (Bld) [Ratio] 0.0 /100 WBC Normal [facility] Comment on above: Order Comment: Speci men Type: BLOOD SPECIMEN Ordering Facility: [facility] Address: [address] [place] [address] Performed By: #### 5 7021-8 #### [facility] CLIA [id number] [address] [place] Platelet mean volume (Bld) [Entitic vol] 9.5 fL Normal 9.0-12.7 [facility] Comment on above: Order Comment: Speci men Type: BLOOD SPECIMEN Ordering Facility: [facility] Address: [address] [place] [address] Performed By: #### 5 7021-8 #### [facility] CLIA [id number] [address] Platelets (Bld) [#/Vol] 337 10*3/uL Normal 150-400 [facility] Comment on above: Order Comment: Speci men Type: BLOOD SPECIMEN Ordering Facility: [facility] Address: [address] [place] [address] Performed By: #### 5 7021-8 #### [facility] CLIA [id number] [address] RBC (Bld) [#/Vol] 5.78 10*6/uL Normal 4.20-6.00 [facility] Comment on above: Order Comment: Speci men Type: BLOOD SPECIMEN Ordering Facility: [facility] Address: [address] [place] [address] Performed By: #### 5 7021-8 #### [facility] CLIA [id number] [address] WBC (Bld) [#/Vol] 6.71 10*3/uL Normal 3.70-11.00 [facility] Comment on above: Order Comment: Speci men Type: BLOOD SPECIMEN Ordering Facility: [facility] Address: [address] [place] [address] Performed By: #### 5 7021-8 #### [facility] CLIA [id number] [address] Comprehensive metabolic 2000 panelon 05-24-2024 Albumin [Mass/Vol] 4.9 g/dL Normal 3.9-4.9 [facility] Comment on above: Order Comment: Speci men Type: BLOOD SPECIMEN Ordering Facility: [facility] Address: [address] [place] [address] Performed By: #### 3 040-3, 09647-5 #### [facility] CLIA [id number] [address] [place] [address] ALP [Catalytic activity/Vol] 67 U/L Normal 38-113 [facility] Comment on above: Order Comment: Speci men Type: BLOOD SPECIMEN Ordering Facility: [facility] Address: [address] [place] [address] Performed By: #### 3 040-3, #### [facility] CLIA [id number] [address] [place] ALT With P-5'-P [Catalytic activity/Vol] 33 U/L Normal 10-54 [facility] Comment on above: Order Comment: Speci men Type: BLOOD SPECIMEN Ordering Facility: [facility] Address: [address] [place] [address] Performed By: #### 3 040-3, #### [facility] CLIA [id number] [address] Anion gap [Moles/Vol] 11 mmol/L Normal 8-15 [facility] Comment on above: Order Comment: Speci men Type: BLOOD SPECIMEN Ordering Facility: [facility] Address: [address] [place] [address] Performed By: #### 3 -3, #### [facility] CLIA [id number] [address] OF [facility] AST With P-5'-P [Catalytic activity/Vol] 27 U/L Normal 14-40 [facility] Comment on above: Order Comment: Speci men Type: BLOOD SPECIMEN Ordering Facility: [facility] Address: [address] [place] [address] Performed By: #### 3 040-3, 75213-8 #### [facility] CLIA [id number] [address] [place] Bilirubin [Mass/Vol] 1.5 mg/dL High 0.2-1.3 [facility] Comment on above: Order Comment: Speci men Type: BLOOD SPECIMEN Ordering Facility: [facility] Address: [address] [place] [address] Performed By: #### 3 -3, #### [facility] CLIA [id number] [address] [place] Calcium [Mass/Vol] 10.0 mg/dL Normal 8.5-10.2 [facility] Comment on above: Order Comment: Speci men Type: BLOOD SPECIMEN Ordering Facility: [facility] Address: [address] [place] [address] Performed By: #### 3 -3, #### [facility] CLIA [id number] 1 [place] [address] [place] Chloride [Moles/Vol] 101 mmol/L Normal 98-107 [facility] Comment on above: Order Comment: Speci men Type: BLOOD SPECIMEN Ordering Facility: [facility] Address: [address] [place] [address] Performed By: #### 3 3, #### [facility] CLIA [id number] [address] [place] CO2 [Moles/Vol] 28 mmol/L Normal 22-30 [facility] Comment on above: Order Comment: Speci men Type: BLOOD SPECIMEN Ordering Facility: [facility] Address: [address] [place] [address] Performed By: #### 3 3, #### [facility] CLIA [id number] [address] [place] Creatinine [Mass/Vol] 0.76 mg/dL Normal 0.73-1.22 [facility] Comment on above: Order Comment: Speci men Type: BLOOD SPECIMEN Ordering Facility: [facility] Address: [address] [place] [address] Performed By: #### 3 040-3, 81427-4 #### [facility] CLIA [id number] [address] [place] Creatinine and Glomerular filtration rate.predicted panel (S/P/Bld) 107 mL/min/1.73m??? Normal >=60 [facility] Comment on above: Order Comment: Cecilia lobato Type: BLOOD SPECIMEN Ordering Facility: [facility] Address: [address] [place] [address] Result Comment: Matilda mated Glomerular Filtration Rate (eGFR) is calculated using the 2020 CKD-EPI creatinine equation. This equation utilizes serum creatinine, sex, and age as parameters. The creatinine assay has traceable calibration to isotope dilution-mass spectrometry. Refer to KDIGO guidelines for clinical interpretation. In patients with unstable renal function, e.g. those with acute kidney injury, the eGFR may not accurately reflect actual GFR. Performed By: #### 3 040-3, 96819-7 #### [facility] CLIA [id number] 1 [place] [address] [place] Glucose [Mass/Vol] 105 mg/dL High 74-99 [facility] Comment on above: Order Comment: Cecilia lobato Type: BLOOD SPECIMEN Ordering Facility: [facility] Address: [address] [place] [address] Result Comment: The Citizen [place] Diabetes Association (ADA) provides guidance for cutoff values for fasting glucose and random glucose. The ADA defines fasting as no caloric intake for at least 8 hours. Fasting plasma glucose results between 100 to 125 mg/dL indicate increased risk for diabetes (prediabetes). Fasting plasma glucose results greater than or equal to 126 mg/dL meet the criteria for diagnosis of diabetes. In the absence of unequivocal hyperglycemia, results should be confirmed by repeat testing. In a patient with classic symptoms of hyperglycemia or hyperglycemic crisis, random plasma glucose results greater than or equal to 200 mg/dL meet the criteria for diagnosis of diabetes. Reference: Standards of Medical Care in Diabetes 2016, Citizen [place] Diabetes Association. Diabetes Care. 2016.39(Suppl 1). Performed By: #### 3 040-3, 93284-4 #### [facility] CLIA [id number] 1 [place] [address] [place] Potassium [Moles/Vol] 4.2 mmol/L Normal 3.7-5.1 [facility] Comment on above: Order Comment: Cecilia lobato Type: BLOOD SPECIMEN Ordering Facility: [facility] Address: [address] [place] [address] Performed By: #### 3 040-3, #### [facility] CLIA [id number] [address] [place] Protein [Mass/Vol] 7.4 g/dL Normal 6.3-8.0 [facility] Comment on above: Order Comment: Speci men Type: BLOOD SPECIMEN Ordering Facility: [facility] Address: [address] [place] [address] Performed By: #### 3 -3, #### [facility] CLIA [id number] [address] [place] Sodium [Moles/Vol] 140 mmol/L Normal 136-144 [facility] Comment on above: Order Comment: Speci men Type: BLOOD SPECIMEN Ordering Facility: [facility] Address: [address] [place] [address] Performed By: #### 3 040-3, #### [facility] CLIA [id number] [address] STATES OF [facility] Urea nitrogen [Mass/Vol] 12 mg/dL Normal 9-24 [facility] Comment on above: Order Comment: Speci men Type: BLOOD SPECIMEN Ordering Facility: [facility] Address: [address] [place] [address] Performed By: #### 3 040-3, #### [facility] CLIA [id number] [address] [place] Lipase SerPl-cCncon 05-24-19 25 Lipase [Catalytic activity/Vol] 33 U/L Normal 16-61 [facility] Comment on above: Order Comment: Speci men Type: BLOOD SPECIMEN Ordering Facility: [facility] Address: [address] [place] [address] Performed By: #### 3 040-3, 68566-3 #### [facility] CLIA [id number] 1 [place] [address] [place] US ABD RIGHT UPPER QUADRANTo n 05-24-2024 US ABD RIGHT UPPER QUADRANT * * *Final Report* * * DATE OF EXAM: May 24 2024 11:17AM AWU [id number] - US ABD RIGHT UPPER QUADRANT / PROCEDURE REASON: multiple diagnoses * * * * Physician Interpretation * * * * EXAMINATION: RIGHT UPPER QUADRANT AND SPLEEN ULTRASOUND CLINICAL HISTORY: Nausea, gallstones, elevated bilirubin TECHNIQUE: Sonography of the right upper quadrant was performed. Images were obtained and stored in a permanent archive. MQ: [id number] COMPARISON: Previous ultrasound from 08/13/2022, previous CT study from 08/12/2022. RESULT: Pancreas: Normal sonographic appearance. Portions obscured: tail Liver: Echotexture: Normal, homogeneous. Echogenicity: Mildly increased Surface contour: Smooth Lesions: None. Biliary: No intrahepatic biliary duct dilation. CBD: 0.4 cm at the hilum. Gallbladder: Normal caliber -Contents: Cholelithiasis -Wall: Normal -Other: No pericholecystic fluid. Spleen: 10.6 cm. No mass. Right and Left Kidney: No hydronephrosis. There is a 2.4 cm cyst at the left lower pole in addition to an 11 mm echogenic nodule, possibly an angiomyolipoma Ascites: None. IMPRESSION: 1. Fatty liver. 2. Cholelithiasis without findings of cholecystitis. 3. Left renal cyst and possible angiomyolipoma. A 12 month follow-up renal ultrasound could be performed to assure stability of the echogenic lesion. Precision Dancer: [facility] Transcribe Date/Time: May 25 2024 10:32A Dictated by : BILL HARRY MD This examination was interpreted and the report reviewed and electronically signed by: BILL HARRY MD on May 25 2024 10:35AM EST [id number] Normal [facility] XR ESOPHAGRAMon 05-24-2024 XR ESOPHAGRAM * * *Final Report* * * DATE OF EXAM: May 24 2024 11:36AM AWX [id number] - XR ESOPHAGRAM / PROCEDURE REASON: multiple diagnoses * * * * Physician Interpretation * * * * ESOPHAGRAM WITH TABLET: CLINICAL INDICATION: Dysphagia. GERD. TECHNIQUE: The exam is performed by radiology physician mail handler assistant Tomasz Carvajal with interpretation of submitted images. Contrast: Oral: 177 ml EZ Paque, 120 ml EZ HD, 4 ml EZ Gas, 1 EZ Disk COMPARISON: CT abdomen and pelvis 08/12/2022, chest radiographs 12/04/[address] chest 10/30/2013. FINDINGS: The cervical esophagus is unremarkable. The thoracic esophagus is normal in course and caliber. There is no appreciable mucosal ulceration or mass. There is a small sliding hiatal hernia. There is no distal esophageal stricture. There is gastroesophageal reflux to the level of the upper thoracic esophagus. A swallowed tablet is reported pass through the thoracic esophagus without delay. Pre-existing mitral annuloplasty. Median sternotomy cerclage wires. Fluoroscopic Radiation Summary: Fluoro time: 1:29 min:sec Number of series/images: IMPRESSION: Small sliding hiatal hernia with gastroesophageal reflux. Precision Dancer: [facility] Transcribe Date/Time: May 24 2024 12:23P Dictated by : GERONIMO CHURCH MD This examination was interpreted and the report reviewed and electronically signed by: GERONIMO CHURCH MD on May 24 2024 5:14PM EST [id number] Normal [facility] XR Esophagus Views W contras t Bisi 05-24-2024 IMPRESSION: Small sliding hiatal hernia with gastroesophageal reflux. Precision Dancer: [facility] Transcribe Date/Time: May 24 2024 12:23P Dictated by : GERONIMO CHURCH MD This examination was interpreted and the report reviewed and electronically signed by: GERONIMO CHURCH MD on May 24 2024 5:14PM EST [facility] * * *Final Report* * * DATE OF EXAM: May 24 2024 11:36AM AWX [id number] - XR ESOPHAGRAM / PROCEDURE REASON: multiple diagnoses * * * * Physician Interpretation * * * * ESOPHAGRAM WITH TABLET: CLINICAL INDICATION: Dysphagia. GERD. TECHNIQUE: The exam is performed by radiology physician mail handler assistant Tomasz Carvajal with interpretation of submitted images. Contrast: Oral: 177 ml EZ Paque, 120 ml EZ HD, 4 ml EZ Gas, 1 EZ Disk COMPARISON: CT abdomen and pelvis 08/12/2022, chest radiographs 12/04/[address] chest 10/30/2013. FINDINGS: The cervical esophagus is unremarkable. The thoracic esophagus is normal in course and caliber. There is no appreciable mucosal ulceration or mass. There is a small sliding hiatal hernia. There is no distal esophageal stricture. There is gastroesophageal reflux to the level of the upper thoracic esophagus. A swallowed tablet is reported pass through the thoracic esophagus without delay. Pre-existing mitral annuloplasty. Median sternotomy cerclage wires. Fluoroscopic Radiation Summary: Fluoro time: 1:29 min:sec Number of series/images: [facility] Provider, Angelo Lieberman aliya [place] - 05/24/2024 * * *Final Report* * * DATE OF EXAM: May 24 2024 11:36AM AWX [id number] - XR ESOPHAGRAM / PROCEDURE REASON: multiple diagnoses * * * * Physician Interpretation * * * * ESOPHAGRAM WITH TABLET: CLINICAL INDICATION: Dysphagia. GERD. TECHNIQUE: The exam is performed by radiology physician mail handler assistant Tomasz Carvajal with interpretation of submitted images. Contrast: Oral: 177 ml EZ Paque, 120 ml EZ HD, 4 ml EZ Gas, 1 EZ Disk COMPARISON: CT abdomen and pelvis 08/12/2022, chest radiographs 12/04/[address] chest 10/30/2013. FINDINGS: The cervical esophagus is unremarkable. The thoracic esophagus is normal in course and caliber. There is no appreciable mucosal ulceration or mass. There is a small sliding hiatal hernia. There is no distal esophageal stricture. There is gastroesophageal reflux to the level of the upper thoracic esophagus. A swallowed tablet is reported pass through the thoracic esophagus without delay. Pre-existing mitral annuloplasty. Median sternotomy cerclage wires. Fluoroscopic Radiation Summary: Fluoro time: 1:29 min:sec Number of series/images: IMPRESSION IMPRESSION: Small sliding hiatal hernia with gastroesophageal reflux. Precision Dancer: [facility] Transcribe Date/Time: May 24 2024 12:23P Dictated by : GERONIMO CHURCH MD This examination was interpreted and the report reviewed and electronically signed by: GERONIMO CHURCH MD on May 24 2024 5:14PM EST [facility] Radiology Study observation (narrative) [facility] XR Esophagus Views Yasmin Sargentdered By: [facility] Provider on 05-24-2024 [facility] CNOVon 05-19-2024 CNOV Office Visit (CARIMN ) -- GEORGIE ELIZABETH ([id number]) 1970 M Date Time Provider Department 05/19/24 1:15 PM JANAE CORTES During your visit today, we recorded the following information about you: Pulse Respiration Blood pressure Weight 64/minute 12/minute 114/76 108.9 kg Height 1.943 m Janae Cortes MD 05/19/2024 5:25 PM Signed [facility] [place] Chalo Bateman Department of Cardiovascular Medicine SECTION OF CARDIOVASCULAR IMAGING OUTPATIENT VISIT DATE 05/19/2024 OUTPATIENT VISIT TYPE ESTABLISHED PRIMARY CARE PHYSICIAN: Saurav Bob MD [facility] [place] [address] REFERRING PHYSICIAN: No referring provider defined for this encounter. CHIEF COMPLAINT: Follow up HISTORY OF PRESENT ILLNESS: Mr. Elizabeth is a 54 year old gentleman who presents today for follow-up visit. To summarize his history from prior notes: He underwent MV repair in [place] on 01/2013, but was told of LV obstruction prior as well. However, still had residual obstruction post-operatively. Managed with beta blockers, but still had considerable exertional dyspnea. Referred here to Dr. Llanes. Pre-op echo: - The left ventricle is normal in size. There is severe asymmetric left ventricular hypertrophy. Left ventricular systolic function is hyperdynamic. EF = 71 ? 5% (2D biplane) LV EDV Indexed is at the low normal range. - The right ventricle is normal in size. Right ventricular systolic function is normal. - There is moderate (2+ - 3+) mitral valve regurgitation. MV repair in 01/2014. MR may be underestimated as it is difficult to evaluate severity and mechanism of MR. Suggest SRINATH to further evaluate if clinically indicated. - Severe RASHIDA at rest: HR=53 BPM, Peak gradient= 102 mmHg. With valsalva: HR=52 BPM, peak gradient= 125 mmHg. Pre-op cath with no significant angiographic disease. On 11/13/2013, he underwent Redo median sternotomy, open heart surgery, extensive dissection of mediastinal adhesions, repair of the mitral valve utilizing #31 De Leon flexible annuloplasty band, takedown of previous chordal transposition, and septal myectomy. Surgical path: Microscopic examination shows myocyte hypertrophy with myocyte nuclei ranging in diameter from 30-40 micrometers. There is no evidence of myocyte disarray. The Movat stain shows no evidence of dysplastic intramural coronary arteries. However, it shows replacement fibrosis and mild interstitial fibrosis. The endocardium shows one focal area of fibrosis with minimal elastosis. Post-op echo: - The left ventricle is normal in size. There is moderate concentric left ventricular hypertrophy. Left ventricular systolic function is normal. EF = 61 ? 5% (2D biplane) - The right ventricle is normal in size. Right ventricular systolic function is normal. - Resting mild RASHIDA with HR 79 bpm. 1+ MR, LVOT gradient 33 mmHg. Same gradient with valsalva although RASHIDA appears to increase. With Amyl nitrite gradient increases to 89 mmHg (HR 84) with MR increasing to 2-3+ and moderate/severe RASHIDA. He therefore underwent re-operation on 11/20/13 with a 27/29 mm On-X mechanical mitral valve. Admission in August of 2015 for palpitations and lightheadedness. Work-up unremarkable. Subsequent CardioNet unremarkable as well. Symptoms of palpitations did not correlate with any arrhythmias, only rare PAC's, PVC's noted. He did note some symptoms of exertional dyspnea in 2018 perfusion stress test was negative for ischemia. For the most part he has felt well since his last visit. However has noted on occasion a pressure sensation in his chest which may last a few minutes. No set relation to activity. 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 [phone] Depression with anxiety obsessive compulsive disorder Gout 12/22/2022 HTN (hypertension) Hyperbilirubinemia 12/22/2022 Hyperlipemia Hypertension 11/16/2013 -cont home meds Hypertrophic obstructive cardiomyopathy (HCC) 2013 s/p myectomy Mitral stenosis 2013 s/p re-do MVR with mechanical valve 11/13/13 Nephrolithiasis 2017 Obstructive sleep apnea 2012 Urethral stricture PAST SURGICAL HISTORY Procedure Laterality Date ADENOIDECTOMY HX 05/03/1986 COLONOSCOPY 05/03/2011 COLONOSCOPY SCREENING 01/08/2022 EGD DIAGNOSTIC 11/10/2022 PAST SURGICAL HISTORY OF 01/23/2013 mitral valve repair, #32 Valerie ring, ligation of left atrial appendage PAST SURGICAL HISTORY OF 11/13/2013 Myectomy and MVr with de leon band and valvuloplasty. PAST SURGICAL HISTORY OF more content not included)... Normal [facility] ECG COMPLETEon 05-19-2024 ECG COMPLETE Ventricular Rate : 6 3 BPM Atrial Rate : 63 BPM P-R Interval : 272 ms QRS Duration : 172 ms Q-T Interval : 456 ms QTC Calculation(Bazett) : 466 ms Calculated P Pacific : 43 degrees Calculated R Pacific : -1 degrees Calculated T Pacific : 157 degrees SINUS RHYTHM WITH SINUS ARRHYTHMIA WITH 1ST DEGREE AV BLOCK COMPLETE LEFT BUNDLE BRANCH BLOCK ABNORMAL ECG Confirmed by MATTHEW FUENTES MD ([id number]) on 06/06/2024 5:20:40 PM NAME : GEORGIE ELIZABETH PID : [id number] : 1970 Gender : Male Race : ORD : [id number] Procedure Date : May 19 2024 12:22:31 Edit Date : Jun 06 2024 17:20:44 Diagnosis: SINUS RHYTHM WITH SINUS ARRHYTHMIA WITH 1ST DEGREE AV BLOCK COMPLETE LEFT BUNDLE BRANCH BLOCK ABNORMAL ECG Confirmed by MATTHEW FUENTES MD ([id number]) on 06/06/2024 5:20:40 PM Test Reason : Location : 314 : J14 Overread By : MATTHEW FUENTES MD Edited By : MATTHEW FUENTES MD Referred By : JANAE CORTES Acquired by : TORIE SANTAMARIA Normal [facility] ECHOon 05-19-2024 Echocardiography Echocardiography Rep ort: Transthoracic Echo [facility] J1-5 Date of service: 05/19/2024 10:59:14 AM MACHINE Ordering physician: JANAE CORTES Indication: H/o MVR & HOCM/myectomy Technologist: Clifford Jefferson Fellow: Javier Philippe MD Interpreting physician: Candice Lema MD PATIENT: Name: MR. GEORGIE ELIZABETH : 1970 Age: 54 years Gender: M History of cardiomyopathy, hypertension and valvular heart disease. Previous cardiovascular interventions: Mitral valve repair (01/2013) Myectomy (11/13/2013) Mitral valve replacement (11/13/2013) Primary rhythm: sinus. Secondary rhythm: LBBB. Height: 190.50 cm BSA: 2.41 m Weight: 109.77 kg BMI: 30.2 kg/m Heart rate 66 bpm Blood pressure 135/85 mmHg Color Doppler was utilized to interrogate the cardiac valves assessed and spectral Doppler was utilized to determine the flow velocities and pressure gradients reported in this exam. Myocardial strain analysis was performed in this exam to aid in the assessment of cardiac function. MEASUREMENTS: Value Indexed Normal Max aortic dimension 3.9 cm Ao < 3.8 Left atrial volume 104 ml (biplane A-L) 44 ml/m Claude <= 34 LV ID (diastole) 4.3 cm (2D) 1.79 cm/m LV ID (systole) 2.7 cm (2D) 1.12 cm/m IVS, leaflet tips 1.5 cm (2D) Posterior wall thickness 1.3 cm (2D) Left ventricular mass 228 g (2D) 95 g/m Global peak long strain -16.7 % LV stroke volume 65 ml (2D biplane) LV end diastolic volume 118 ml (2D biplane) 48.8 ml/m 34<=EDVi<75 LV end systolic volume 52 ml (2D biplane) 21.8 ml/m Ejection Fraction 55 % (2D biplane) EF > 52 FINDINGS: LEFT VENTRICLE The left ventricle is normal in size. There is septal left ventricular hypertrophy. Left ventricular systolic function is normal. Global LV myocardial strain is normal. Left ventricular diastolic function was not evaluated due to mitral valve surgery. Wall Motion: All scored segments are normal. RIGHT VENTRICLE The right ventricle is normal in size. Right ventricular systolic function is normal. RV systolic tissue Doppler velocity is 14.5 cm/s. Tricuspid annular displacement is 1.6 cm. Estimated right ventricular systolic pressure is 35 mmHg consistent with mild pulmonary hypertension. Estimated right atrial pressure is 3 mmHg based on IVC assessment. LEFT ATRIUM The left atrial cavity is dilated. Pulmonary Veins: The pulmonary venous pattern showed blunted systolic flow. RIGHT ATRIUM The right atrial cavity is dilated. Inferior Vena Cava: The inferior vena cava appears normal measuring 1.6 cm. The vessel decreases greater than 50 percent with inspiration. MITRAL VALVE Post mitral valve replacement. On-X prosthetic valve size #27. There is trace (trace - 1+) mitral valve regurgitation. The peak valve gradient is 13 mmHg. The mean valve gradient is 6 mmHg. TRICUSPID VALVE The tricuspid valve leaflets are structurally normal. There is mild (1+) tricuspid valve regurgitation. The hepatic venous pattern showed normal systolic flow. AORTIC VALVE There is trace aortic valve regurgitation. Tricuspid aortic valve. There is mild thickening. The peak gradient is 8 mmHg (peak velocity = 137.0 cm/s). PULMONIC VALVE The pulmonic valve cusps are structurally normal. There is trace pulmonic valve regurgitation. AORTA The visualized aorta is borderline dilated. Measurements - Sinus: 3.9 cm. Mid ascending aorta 3.5 cm. PULMONARY ARTERIES The pulmonary arteries are normal. INTERATRIAL SEPTUM There is no evidence of intracardiac shunting as detected by Doppler. INTERVENTRICULAR SEPTUM There is abnormal motion of the interventricular septum secondary to prior cardiac surgery and abnormal conduction. There is no flow through the interventricular septum as detected by Doppler. PERICARDIUM There is no pericardial effusion. There is an epicardial fat pad. CONCLUSIONS: - Exam indication: H/o MVR & HOCM/myectomy - The left ventricle is normal in size. There is septal left ventricular hypertrophy. Left ventricular systolic function is normal. EF = 55 5% (2D biplane) Left ventricular diastolic function was not evaluated due to mitral valve surgery. - The right ventricle is normal in size. Right ventricular systolic function is normal. - The left atrial cavity is dilated. - The right atrial cavity is dilated. - The visualized aorta is borderline dilated with a maximal dimension of 3.9 cm. - Post mitral valve replacement. On-X prosthetic mitral valve (size #27). There is trace (trace - 1+) mitral valve regurgitation. The peak gradient is 13 mmHg and the mean gradient is 6 mmHg. Today's gradients obtained at 61 bpm. Prior peak/mean gradients of 11/6 mmHg. MR appears mild similar to prior, though assessment confounded by shielding artifact from prosthetic valve. - Exam was compared with the prior echocardiographic exam performed on 05/04/2023. (more content not included)... [facility] 05-11-2024 [facility] Telephone ([facility] -- GEORGIE ELIZABETH ([id number]) 1970 M Date Time Provider Department 05/11/24 GUNNAR PATEL During your visit today, we recorded the following information about you: Gunnar Patel, [facility] 05/11/2024 1:46 PM Signed [facility] Ambulatory Pharmacy Anticoagulation Clinic Anticoagulation Episode Summary Anticoagulation Care Providers Provider Role Specialty Phone number Saurav Bob MD Referring Internal Medicine [phone] Georgie Elizabeth is a 54 year old year old male patient being evaluated today for a Telemanagement visit. Patient is currently on the following anticoagulant(s) Warfarin. Labs PT INR (no units) Date Value 10/04/2023 2.0 07/11/2023 2.8 johanna per pt 01/26/2023 4.8 (self-reporting) INR Home CoaguChek (no units) Date Value 05/11/2024 2.5 04/12/2024 2.2 03/30/2024 1.7 Hemoglobin (g/dL) Date Value 02/25/2024 15.3 08/05/2015 14.6 Hematocrit (%) Date Value 02/25/2024 46.6 08/05/2015 43.7 Platelet Count (k/uL) Date Value 02/25/2024 336 08/05/2015 327 Creatinine (mg/dL) Date Value 02/25/2024 0.90 08/03/2023 0.85 04/22/2023 0.87 08/05/2015 1.09 08/05/2015 1.03 02/17/2015 0.99 Bilirubin, Total (mg/dL) Date Value 02/25/2024 1.7 08/05/2015 0.8 ALT (U/L) Date Value 02/25/2024 23 08/05/2015 34 AST (U/L) Date Value 02/25/2024 20 08/05/2015 23 Estimated Creatinine Clearance: 125.5 mL/min (based on SCr of 0.9 mg/dL). ALLERGIES Allergen Reactions Codeine Mental Status Change Sulfa Drugs [Sulfa * Myalgia Indication for Warfarin: Mechanical heart valve present senior care (current) use of anticoagulants History of mitral valve replacement with mechanical valve Anticoagulation Episode Summary Current INR goal: 2.5-3.5 Assessment: INR result of 2.5 is therapeutic Plan: Current Warfarin Dosing As of 05/11/2024 Full warfarin instructions: 10 mg every Wed, Wed, Wed; 12.5 mg all other days Sent [employer] message Advised patient to continue current weekly dose as noted above Next home INR check scheduled on 05/25/2024 Patient advised to call the PAC with any medication changes, bleeding/bruising concerns, recent changes in vitamin k consumption, if any procedures are coming up, if they have been ill or in the hospital, and if they have missed any doses of warfarin. Gunnar Patel RPh Clinical Pharmacist, Pharmacy Anticoagulation Clinic Pharmacy Anticoagulation Clinic Pager: [phone]. Gunnar Patel [facility] 05/25/2024 12:25 PM Signed Patient was due to test INR today. Will continue to monitor for results. Follow up in one week if no results received. Patient's INR Goal range is - 2.5-3.5 PT INR (no units) Date Value 10/04/2023 2.0 07/11/2023 2.8 johanna per pt 01/26/2023 4.8 (self-reporting) INR Home CoaguChek (no units) Date Value 05/11/2024 2.5 04/12/2024 2.2 03/30/2024 1.7 Patient is in titration phase - No Patient has dosing provided until next INR - Yes Patient is on an injectable anticoagulant - No Gunnar Patel [facility] Allergies As of Date: 05/11/2024 Noted Allergy Reaction CODEINE 10/30/2013 1 - Mental Status Change SULFA DRUGS (SULFA (SULFONAMIDE A*04/21/2023 17 - Myalgia Date Reviewed: 04/19/2024 Reviewed by: Guillermo Pedro OCCA - Fully Assessed Reason for Visit: Anticoagulation Telephone Fu [148] Cmt: Home INR Primary Visit Diagnosis: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] Other Visit Diagnoses: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 [Z79.01] History of mitral valve replacement with mechanical valve [Z95.2] Prescriptions as of 05/25/2024 - metoprolol succinate ER (TOPROL XL) 50 mg 24 hr tablet Take 1 tablet by mouth once daily. - dicyclomine (BENTYL) 10 mg capsule Take 1 capsule by mouth three times a day as needed (for abdominal pain). - pantoprazole DR (PROTONIX) 40 mg tablet Take 1 tablet by mouth once daily. On empty stomach at least 30 minutes before eating. - coenzyme Q10 (CO Q-10) 100 mg cap capsule Take 1 capsule by mouth once daily. - warfarin (COUMADIN) 10 mg tablet Take 15 mg every Wed, Wed; 12.5 mg all other days or as directed by anticoagulation clinic. (Takes with 5 mg tablets) - warfarin (COUMADIN) 5 mg tablet Take 15 mg every Wed, Wed; 12.5 mg all other days or as directed by anticoagulation clinic. (Takes with 10 mg tablets) - rosuvastatin (CRESTOR) 20 mg tablet Take 1 tablet by mouth once daily. - CPAP/BIPAP/OTHER Type .CPAPSettings into a note to see current settings/supplies/DME information. - enoxaparin (LOVENOX) 120 mg/0.8 mL injection Inject 120 mg subcutaneously. - CPAP/BIPAP/OTHER Continue ASV with current settings of EPAP 5 cm H2O with PS 4-12 cmH2O. Lifetime supplies for ASV, including patient preferred mask, head gear, heated tubing, humidity, filters, chin str (more content not included)... [facility] CNOVon 04-19-2024 CNOV Office Visit (MOISES ) -- GEORGIE ELIZABETH ([id number]) 1970 M Date Time Provider Department 04/19/24 2:15 PM RAMÓN SILVA During your visit today, we recorded the following information about you: Ramón Silva MD 04/19/2024 2:22 PM Signed HPI: 53 year old male with a history of mechanical mitral valve on Coumadin and urethral stricture s/p ventral onlay BMG urethroplasty in 2014 He was last seen on 10/2023. He had a scope last on 02/01/23 that showed mild annular stenosis at the distal and proximal aspects of the repair that did accept the scope. He last summer also had an episode of bacterial prostatitis and was placed on cipro for 4 weeks. No urinary tract infections in our system since august and he states he has not had any . No issues with his stream or concerns of any kind for us today. PVR is 174. 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 [phone] Depression with anxiety obsessive compulsive disorder Gout 12/22/2022 HTN (hypertension) Hyperbilirubinemia 12/22/2022 Hyperlipemia Hypertension 11/16/2013 -cont home meds Hypertrophic obstructive cardiomyopathy (HCC) 2012 s/p myectomy Mitral stenosis 2013 s/p re-do MVR with mechanical valve 11/13/13 Nephrolithiasis 2017 Obstructive sleep apnea 2012 Urethral stricture PAST SURGICAL HISTORY Procedure Laterality Date ADENOIDECTOMY HX 05/03/1986 COLONOSCOPY 05/03/2011 COLONOSCOPY SCREENING 01/08/2022 EGD DIAGNOSTIC 11/10/2022 PAST SURGICAL HISTORY OF 01/23/2013 mitral valve repair, #32 Valerie ring, ligation of left atrial appendage PAST SURGICAL HISTORY OF 11/13/2013 Myectomy and MVr with de leon band and valvuloplasty. PAST SURGICAL HISTORY OF 11/20/2013 redo sternotomy MVR with mechanical ON X valve (27/29 mm). PAST SURGICAL HISTORY OF 01/29/2015 BMG Urethroplasty TONSILLECTOMY HX 05/03/1986 Social History Tobacco Use Smoking status: Never Smokeless tobacco: Never Vaping Use Vaping status: Never Used Substance Use Topics Alcohol use: No Comment: rarely Drug use: Never Current Outpatient Medications Medication Sig Dispense Refill dicyclomine (BENTYL) 10 mg capsule Take 1 capsule by mouth three times a day as needed (for abdominal pain). [address] (PROTONIX) 40 mg tablet Take 1 tablet by mouth once daily. On empty stomach at least 30 minutes before eating. 90 tablet 3 coenzyme Q10 (CO Q-10) 100 mg cap capsule Take 1 capsule by mouth once daily. warfarin (COUMADIN) 10 mg tablet Take 15 mg every Wed, Wed; 12.5 mg all other days or as directed by anticoagulation clinic. (Takes with 5 mg tablets) 90 tablet 2 warfarin (COUMADIN) 5 mg tablet Take 15 mg every Mon, Wed; 12.5 mg all other days or as directed by anticoagulation clinic. (Takes with 10 mg tablets) 90 tablet 1 rosuvastatin (CRESTOR) 20 mg tablet Take 1 tablet by mouth once daily. 90 tablet 0 CPAP/BIPAP/OTHER Type .CPAPSettings into a note to see current settings/supplies/DME information. 1 Each 0 metoprolol succinate ER (TOPROL XL) 50 mg 24 hr tablet Take 1.5 tablets by mouth once daily. 135 tablet 3 enoxaparin (LOVENOX) 120 mg/0.8 mL injection Inject 120 mg subcutaneously. CPAP/BIPAP/OTHER Continue ASV with current settings of EPAP 5 cm H2O with PS 4-12 cmH2O. Lifetime supplies for ASV, including patient preferred mask, head gear, heated tubing, humidity, filters, chin strap. Dx: Obstructive Sleep Apnea G47.33 DME: ROSEMARIE 1 Each 0 aspirin 81 mg chewable tablet Take 1 tablet by mouth once daily. BIPAP ASV EPAP min 5 cm H20, PS 4-12 cm H20. Mask fitting to consider Dream wear FFM. Provide lifetime supplies including tubing, heated humidity, filters. Dx: G47.33 AND G47.37. 1 Device 0 BIPAP Fax 30 day download report to [phone] to assess usage and residual AHI after receipt of replacement ASV. 1 Device 0 Melatonin 5 mg tab Take by mouth as needed. ACETAMINOPHEN (TYLENOL EXTRA STRENGTH ORAL) Take by mouth as needed. No current facility-administered medications for this visit. PHYSICAL EXAM: There were no vitals taken for this visit. GENERAL: Wnl nutrition, no deformities, healthy appearing ABDOMEN: Soft, nontender, nondistended, no masses. GENITOURINARY: MALE EXAM: Not indicated DATA/OR LABS TO BE REVIEWED: (Simple=1 data point; Complex= 2 or more) PSA (ng/mL) Date Value 08/03/2023 1.36 PSA Screening (ng/mL) Date Value 02/25/2024 1.01 Creatinine (mg/dL) Date Value 02/25/2024 0.90 08/03/2023 0.85 04/22/2023 0.87 08/19/2022 0.94 08/12/2022 0.90 08/05/2015 1.09 08/05/2015 1.03 02/17/2015 0.99 1 (more content not included)... [facility] UA DIP, URINE (POC)on 2023 BILIRUBIN UA (POCT) Negative Negative [facility] CLARITY UA (POCT) Clear [facility] COLOR UA (POCT) Yellow [facility] GLUCOSE UA (POCT) Negative Negative mg/dL [facility] Hemoglobin Ql (U) Negative [facility] KETONE UA (POCT) Negative Negative mg/dL [facility] LEUKOCYTES UA (POCT) Negative Negative [facility] NITRITE UA (POCT) Negative Negative [facility] PH UA (POCT) 7.0 4.5 - 8.0 [facility] Protein Ql (U) Negative Negative mg/dL [facility] SPECIFIC GRAVITY UA (POCT) 1.010 1.005 - 1.030 [facility] UROBILINOGEN UA (POCT) 0.2 Teresa l E.U./dL [facility] Location:[facility], [address] [place] [address], [address] [place] [address] POINT OF CARE [facility] CNOVon 04-17-2024 CNOV Office Visit ([facility] ) -- GEORGIE ELIZABETH ([id number]) 1970 M Date Time Provider Department 04/17/24 1:50 PM GAYATHRI SKY During your visit today, we recorded the following information about you: Pulse Blood pressure Weight Height 75/minute 114/70 109.8 kg 1.905 m Gayathri Sky PA-C 04/17/2024 2:12 PM Signed CHIEF COMPLAINT: Patient presents with: GERD: Sometimes has abdominal pain for a few days at a time HPI Accompanied by sister Georgie Elizabeth is a 54 year old male here today for GERD (Sometimes has abdominal pain for a few days at a time). Surg hx positive for MVR, urethroplasty, adenoidectomy. Taking Protonix 40 mg daily for GERD with relief. Admits to epigastric pain for the past several mos, no change when eating. Experiencing intermittent dysphagia with solids. Has not noted any alleviating factors. Has been adhering to mostly gluten free diet. With probiotic smoothie daily, having regular Bms daily, no blood. Will occasionally take Aleve once every 3 mos, is aware he's not supposed to while being on coumadin. Denies N/V, weight loss, stress. Celiac 2022 genetic risk low positive, negative for active disease EGD 10/2022 [place] Grade B esophagitis, bile reflux INTERPRETATION: B. Antrum, biopsy: -Negative for Helicobacter pylori organisms. D. Distal esophagus, biopsy; -No evidence of dysplasia Colonoscopy 2021 diverticulosis, 5 mm polyp GES 10/2022 IMPRESSION: 1. NORMAL 99m Tc sulfur colloid semi-solid phase (oatmeal) gastric emptying imaging examination. A. There is normal and preserved semi-solid phase gastric emptying compared to normal controls. (Marianne et al, J Nucl Med Tech 38: 186, 2010). HIDA 08/2022 IMPRESSION: 1. Gallbladder is visualized. Patent cystic and common bile ducts. No scintigraphic evidence of acute cholecystitis. 2. Normal gallbladder ejection fraction. CT abd 08/2022 IMPRESSION: Interval increase in size of gallbladder stones. Nonobstructing left renal calculi. Interval stable to slight increase in size of low-attenuation lesion or cyst in the left kidney. Colonic diverticulosis without evidence of diverticulitis. OV 2022 Accompanied by sister Georgie Elizabeth is a 53 year old male here today for Procedure Follow Up (EGD 7/11/23 in [facility] 10/05/22). Surg hx positive for MVR, urethroplasty, adenoidectomy. Seen last for postprandial abd pain since 08/2021. On Questran daily, Protonix 40 mg daily. Feels as though PPI helps with reflux. Referred to Surgery last OV, seen by Dr. Madison and advised to treat reflux vs cholecystectomy. Lost 10 lbs intentionally since last OV. Denies current postprandial abd pain, changes in bowel habits. Current Outpatient Medications Medication Sig coenzyme Q10 (CO Q-10) 100 mg cap capsule Take 1 capsule by mouth once daily. warfarin (COUMADIN) 10 mg tablet Take 15 mg every Mon, Wed; 12.5 mg all other days or as directed by anticoagulation clinic. (Takes with 5 mg tablets) warfarin (COUMADIN) 5 mg tablet Take 15 mg every Mon, Wed; 12.5 mg all other days or as directed by anticoagulation clinic. (Takes with 10 mg tablets) pantoprazole DR (PROTONIX) 40 mg tablet Take 1 tablet by mouth once daily. On empty stomach at least 30 minutes before eating. rosuvastatin (CRESTOR) 20 mg tablet Take 1 tablet by mouth once daily. metoprolol succinate ER (TOPROL XL) 50 mg 24 hr tablet Take 1.5 tablets by mouth once daily. enoxaparin (LOVENOX) 120 mg/0.8 mL injection Inject 120 mg subcutaneously. CPAP/BIPAP/OTHER Continue ASV with current settings of EPAP 5 cm H2O with PS 4-12 cmH2O. Lifetime supplies for ASV, including patient preferred mask, head gear, heated tubing, humidity, filters, chin strap. Dx: Obstructive Sleep Apnea G47.33 DME: ROSEMARIE aspirin 81 mg chewable tablet Take 1 tablet by mouth once daily. Melatonin 5 mg tab Take by mouth as needed. ACETAMINOPHEN (TYLENOL EXTRA STRENGTH ORAL) Take by mouth as needed. CPAP/BIPAP/OTHER Type .CPAPSettings into a note to see current settings/supplies/DME information. BIPAP ASV EPAP min 5 cm H20, PS 4-12 cm H20. Mask fitting to consider Dream wear FFM. Provide lifetime supplies including tubing, heated humidity, filters. Dx: G47.33 AND G47.37. BIPAP Fax 30 day download report to [phone] to assess usage and residual AHI after receipt of replacement ASV. No current facility-administered medications for this visit. ALLERGIES Allergen Reactions Codeine Mental Status Change Sulfa Drugs [Sulfa * Myalgia Social History Tobacco Use Smoking status: Never Smokeless tobacco: Never Vaping Use Vaping status: Never Used Substance Use Topics Alcohol use: No Comment: rarely Drug use: Never PAST MEDICAL HISTORY Diagnosis Date Adenomatous colon polyp 01/08/2022 Anticoagulation adequate Allen's esophagus 12/22/2022 Bile (more content not included)... [facility] CNOVon 04-14-2024 CNOV Office Visit (INTMWS ) -- GEORGIE ELIZABETH ([id number]) 1970 M Date Time Provider Department 04/14/24 9:40 AM DINA JOYCE INTMWS During your visit today, we recorded the following information about you: Pulse Respiration Blood pressure Weight 73/minute 16/minute 126/84 109 kg Height 1.91 m Dina Joyce, DEOILING MACHINE OPERATOR.[facility] 04/14/2024 10:16 AM Signed CC: Patient presents with: Physical HPI Georgie Elizabeth is a 54 year old male who presents today for above. Patient is scheduled today for a physical but he had one last month. Feeling well overall and denies any concerns today. He is taking all medications as prescribed, denies side effects. INR's monitored by pharmacy and have been therapeutic. Denies any unusual bleeding. He has been experiencing abdominal discomfort/pain intermittently, scheduled with GI next week for evaluation. He wears ASV device nightly for CSA treatment. Following up routinely with specialists as instructed. Review of Systems Constitutional: Positive for fatigue (chronic, no worsening). Negative for chills, diaphoresis, fever and unexpected weight change. Respiratory: Negative for cough, shortness of breath and wheezing. Cardiovascular: Negative for chest pain, palpitations and leg swelling. Neurological: Negative for dizziness, syncope, weakness, light-headedness and headaches. 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 [phone] Depression with anxiety obsessive compulsive disorder Gout 12/22/2022 HTN (hypertension) Hyperbilirubinemia 12/22/2022 Hyperlipemia Hypertension 11/16/2013 -cont home meds Hypertrophic obstructive cardiomyopathy (HCC) 2012 s/p myectomy Mitral stenosis 2013 s/p re-do MVR with mechanical valve 11/13/13 Nephrolithiasis 2017 Obstructive sleep apnea 2012 Urethral stricture PAST SURGICAL HISTORY Procedure Laterality Date ADENOIDECTOMY HX 05/03/1986 COLONOSCOPY 05/03/2011 COLONOSCOPY SCREENING 01/08/2022 EGD DIAGNOSTIC 11/10/2022 PAST SURGICAL HISTORY OF 01/23/2013 mitral valve repair, #32 Valerie ring, ligation of left atrial appendage PAST SURGICAL HISTORY OF 11/13/2013 Myectomy and MVr with de leon band and valvuloplasty. PAST SURGICAL HISTORY OF 11/20/2013 redo sternotomy MVR with mechanical ON X valve (27/29 mm). PAST SURGICAL HISTORY OF 01/29/2015 BMG Urethroplasty TONSILLECTOMY HX 05/03/1986 ALLERGIES Codeine and Sulfa Drugs [Sulfa (Sulfonamide Antibiotics)] MEDICATIONS warfarin (COUMADIN) 10 mg tablet Take 15 mg every Mon, Wed; 12.5 mg all other days or as directed by anticoagulation clinic. (Takes with 5 mg tablets) warfarin (COUMADIN) 5 mg tablet Take 15 mg every Mon, Wed; 12.5 mg all other days or as directed by anticoagulation clinic. (Takes with 10 mg tablets) pantoprazole DR (PROTONIX) 40 mg tablet Take 1 tablet by mouth once daily. On empty stomach at least 30 minutes before eating. rosuvastatin (CRESTOR) 20 mg tablet Take 1 tablet by mouth once daily. metoprolol succinate ER (TOPROL XL) 50 mg 24 hr tablet Take 1.5 tablets by mouth once daily. coenzyme Q10 (CO Q-10) 100 mg cap capsule Take 1 capsule by mouth once daily. aspirin 81 mg chewable tablet Take 1 tablet by mouth once daily. BIPAP ASV EPAP min 5 cm H20, PS 4-12 cm H20. Mask fitting to consider Dream wear FFM. Provide lifetime supplies including tubing, heated humidity, filters. Dx: G47.33 AND G47.37. BIPAP Fax 30 day download report to [phone] to assess usage and residual AHI after receipt of replacement ASV. Melatonin 5 mg tab Take by mouth as needed. ACETAMINOPHEN (TYLENOL EXTRA STRENGTH ORAL) Take by mouth as needed. CPAP/BIPAP/OTHER Type .CPAPSettings into a note to see current settings/supplies/DME information. enoxaparin (LOVENOX) 120 mg/0.8 mL injection Inject 120 mg subcutaneously. CPAP/BIPAP/OTHER Continue ASV with current settings of EPAP 5 cm H2O with PS 4-12 cmH2O. Lifetime supplies for ASV, including patient preferred mask, head gear, heated tubing, humidity, filters, chin strap. Dx: Obstructive Sleep Apnea G47.33 DME: ROSEMARIE BIPAP Please service machine, humidifier causing issues. Lifetime supplies G47.33 DOREEN FAMILY HISTORY Problem Relation Age of Onset other (Diverticulosis) Mother Heart Father [place], sudden 50's Colon Cancer Sister Heart Paternal Grandmother Social History Tobacco Use Smoking status: Never Smokeless tobacco: Never Vaping Use Vaping status: Never Used Substance Use Topics Alcohol use: No Comment: rarely Drug use: Never BP 126/84 Pulse 73 Resp 16 Ht 191 cm (6' 3.2) Wt 109 kg (240 lb 4.8 (more content not included)... [facility] GEORGIE ELIZABETH ([id number]) 1970 M Date Time Provider Department 04/12/24 HARINI CESAR During your visit today, we recorded the following information about you: Harini Cesar [facility] 04/12/2024 5:42 PM Signed [facility] Ambulatory Pharmacy Anticoagulation Clinic Anticoagulation Episode Summary Anticoagulation Care Providers Provider Role Specialty Phone number Saurav Bob MD Referring Internal Medicine [phone] Georgie Elizabeth is a 54 year old year old male patient being evaluated today for a Telemanagement visit. Patient is currently on the following anticoagulant(s) Warfarin. Labs PT INR (no units) Date Value 10/04/2023 2.0 07/11/2023 2.8 johanna per pt 01/26/2023 4.8 (self-reporting) INR Home CoaguChek (no units) Date Value 04/12/2024 2.2 03/30/2024 1.7 02/15/2024 2.5 Hemoglobin (g/dL) Date Value 02/25/2024 15.3 08/05/2015 14.6 Hematocrit (%) Date Value 02/25/2024 46.6 08/05/2015 43.7 Platelet Count (k/uL) Date Value 02/25/2024 336 08/05/2015 327 Creatinine (mg/dL) Date Value 02/25/2024 0.90 08/03/2023 0.85 04/22/2023 0.87 08/05/2015 1.09 08/05/2015 1.03 02/17/2015 0.99 Bilirubin, Total (mg/dL) Date Value 02/25/2024 1.7 08/05/2015 0.8 ALT (U/L) Date Value 02/25/2024 23 08/05/2015 34 AST (U/L) Date Value 02/25/2024 20 08/05/2015 23 CrCl cannot be calculated (Unknown ideal weight.). ALLERGIES Allergen Reactions Codeine Mental Status Change Sulfa Drugs [Sulfa * Myalgia Indication for Warfarin: Mechanical heart valve present senior care (current) use of anticoagulants History of mitral valve replacement with mechanical valve Anticoagulation Episode Summary Current INR goal: 2.5-3.5 Assessment: INR result of 2.2 is SUPRAtherapeutic due to: No obvious cause (patient denies medication change, grapefruit/cranberry/pomeg ranate/pepito ingestion, OTC medication use, change in herbal/nutritional supplement, accidental overdosage, change in warfarin tablet shape or color, change in vit K consumption, recent illness (NVD, fever), any changes to general health, changes in tobacco use, or EtOH consumption) Plan: Current Warfarin Dosing As of 04/12/2024 Full warfarin instructions: 04/12: 15 mg; Otherwise 10 mg every Wed, Wed, Wed; 12.5 mg all other days Called and spoke to patient/caregiver Advised patient to increase dose for 1 day and increase total weekly regimen Next lab INR check scheduled on 04/27/2024 Patient verbalizes understanding of the plan. Patient denies need for refills. Patient advised to call the PAC with any medication changes, bleeding/bruising concerns, recent changes in vitamin k consumption, if any procedures are coming up, if they have been ill or in the hospital, and if they have missed any doses of warfarin. Harini Cesar [facility] Clinical Pharmacist, Pharmacy Anticoagulation Clinic Pharmacy Anticoagulation Clinic Pager: [phone]. Pushpa Salguero [facility] 04/27/2024 12:43 PM Signed No lab in process. Patient was due to test INR today. Will continue to monitor for results. Follow up in one week if no results received. Patient's INR Goal range is - 2.5-3.5 PT INR (no units) Date Value 10/04/2023 2.0 07/11/2023 2.8 johanna per pt 01/26/2023 4.8 (self-reporting) INR Home CoaguChek (no units) Date Value 04/12/2024 2.2 03/30/2024 1.7 02/15/2024 2.5 Patient is in titration phase - No Patient has dosing provided until next INR - Yes Patient is on an injectable anticoagulant - No Pushpa Salguero [facility] Gunnar Patel [facility] 05/04/2024 3:27 PM Signed Georgie Elizabeth was called, lvmx and reminded to test INR today or as soon as possible. Gunnar Patel [facility] Brenda Fragoso RN 05/09/2024 4:31 PM Signed Patient called and advised he has a new insurance card and was unable to have UA today (05/09.) Patient will call billing to advise and will test INR 05/11. Minnie Fragoso RN Pharmacy Anticoagulation Clinic Allergies As of Date: 04/12/2024 Noted Allergy Reaction CODEINE 10/30/2013 1 - Mental Status Change SULFA DRUGS (SULFA (SULFONAMIDE A*04/21/2023 17 - Myalgia Date Reviewed: 10/25/2023 Reviewed by: Guillermo Pedro OCCA - Fully Assessed Reason for Visit: Anticoagulation Telephone Fu [148] Cmt: Home INR results Primary Visit Diagnosis: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] Other Visit Diagnoses:senior care (current) use of anticoagulants [Z79.01] History of mitral valve replacement with mechanical valve [Z95.2] Prescriptions as of 05/09/2024 - dicyclomine (BENTYL) 10 mg capsule Take 1 capsule by mouth three times a day as needed (for abdominal pain). - pantoprazole DR (PROTONIX) 40 mg tablet Take 1 tablet by mouth once daily. On empty stomach at least 30 minutes before eating. - coenzyme Q10 (CO Q-10) (more content not included)... [facility] (PHARST) -- GEORGIE ELIZABETH ([id number]) 1970 M Date Time Provider Department 03/31/24 VANE MATUTE PHAMALU During your visit today, we recorded the following information about you: Vane Matute lucy 03/31/2024 8:29 AM Signed [facility] Ambulatory Pharmacy Anticoagulation Clinic Anticoagulation Episode Summary Anticoagulation Care Providers Provider Role Specialty Phone number Saurav Bob MD Referring Internal Medicine [phone] Georgie Elizabeth is a 54 year old year old male patient being evaluated today for a Telemanagement visit. Patient is currently on the following anticoagulant(s) Warfarin. Labs PT INR (no units) Date Value 10/04/2023 2.0 07/11/2023 2.8 johanna per pt 01/26/2023 4.8 (self-reporting) INR Home CoaguChek (no units) Date Value 03/30/2024 1.7 02/15/2024 2.5 01/18/2024 2.7 Hemoglobin (g/dL) Date Value 02/25/2024 15.3 08/05/2015 14.6 Hematocrit (%) Date Value 02/25/2024 46.6 08/05/2015 43.7 Platelet Count (k/uL) Date Value 02/25/2024 336 08/05/2015 327 Creatinine (mg/dL) Date Value 02/25/2024 0.90 08/03/2023 0.85 04/22/2023 0.87 08/05/2015 1.09 08/05/2015 1.03 02/17/2015 0.99 Bilirubin, Total (mg/dL) Date Value 02/25/2024 1.7 08/05/2015 0.8 ALT (U/L) Date Value 02/25/2024 23 08/05/2015 34 AST (U/L) Date Value 02/25/2024 20 08/05/2015 23 CrCl cannot be calculated (Unknown ideal weight.). ALLERGIES Allergen Reactions Codeine Mental Status Change Sulfa Drugs [Sulfa * Myalgia Indication for Warfarin: Mechanical heart valve present 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 History of mitral valve replacement with mechanical valve Anticoagulation Episode Summary Current INR goal: 2.5-3.5 Assessment: INR result of 1.7 is SUBtherapeutic due to: No obvious cause (patient denies liver, green tea, new herbal/nutritional supplements - such as Boost, Ensure, an increase in vit K foods and/or V8 type juices, any changes in warfarin tablet, or missed doses) Plan: Current Warfarin Dosing As of 03/31/2024 Full warfarin instructions: 03/31: 17.5 mg; Otherwise 12.5 mg every Mon, Wed, Fri; 10 mg all other days Called and spoke to patient/caregiver Advised patient to increase dose for 1 day only then resume weekly regimen Next home INR check scheduled on 04/06/2024 Patient verbalizes understanding of the plan. Patient denies need for refills. Patient advised to call the PAC with any medication changes, bleeding/bruising concerns, recent changes in vitamin k consumption, if any procedures are coming up, if they have been ill or in the hospital, and if they have missed any doses of warfarin. Vane Matute [facility] Clinical Pharmacist, Pharmacy Anticoagulation Clinic Pharmacy Anticoagulation Clinic Pager: [phone]. Brenda Fragoso RN 03/31/2024 10:43 AM Signed Summer from [employer] calling to report the patient's INR result 03/30. Noted result has been addressed below. Minnie Fragoso RN Pharmacy Anticoagulation Clinic Aly Jiménez [facility] 04/06/2024 4:41 PM Signed Patient was due to test INR today. Will continue to monitor for results. Follow up in one week if no results received. Aly Jiménez [facility] Harini Cesar [facility] 04/12/2024 5:42 PM Signed Addended by: HARINI CESAR on: 04/12/2024 05:42 PM Modules accepted: Orders Allergies As of Date: 03/31/2024 Noted Allergy Reaction CODEINE 10/30/2013 1 - Mental Status Change SULFA DRUGS (SULFA (SULFONAMIDE A*04/21/2023 17 - Myalgia Date Reviewed: 10/25/2023 Reviewed by: Guillermo Pedro OCCA - Fully Assessed Reason for Visit: Anticoagulation Telephone Fu [148] Cmt: Home INR Primary Visit Diagnosis: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 [Z79.01] Other Visit Diagnoses: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] History of mitral valve replacement with mechanical valve [Z95.2] Order(s):PROTHROMBIN TIME [SQPT] Order #: [id number] STANDING Prescriptions as of 04/12/2024 - warfarin (COUMADIN) 10 mg tablet Take 15 mg every Mon, Wed; 12.5 mg all other days or as directed by anticoagulation clinic. (Takes with 5 mg tablets) - warfarin (COUMADIN) 5 mg tablet Take 15 mg every Mon, Wed; 12.5 mg all other days or as directed by anticoagulation clinic. (Takes with 10 mg tablets) - pantoprazole DR (PROTONIX) 40 mg tablet Take 1 tablet by mouth once daily. On empty stomach at least 30 minutes before eating. - rosuvastatin (CRESTOR) 20 mg tablet Take 1 tablet by mouth once daily. - CPAP/BIPAP/OTHER Type .CPAPSettings into a note to see current settings/supplies/DME information. - metoprolol succinate ER (TOPROL XL) 50 mg 24 hr tablet Take 1.5 tablets by mouth once daily. - coenzyme Q10 (CO Q-10) 100 mg cap capsule Take 1 capsule by mouth once daily. - enoxaparin (LOVENOX) 120 mg/0.8 mL injection Inj (more content not included)... Normal [facility] Basic metabolic 2000 panelon 02-25-2024 Anion gap [Moles/Vol] 8 mmol/L Normal 8-15 [facility] Comment on above: Order Comment: Speci men Type: BLOOD SPECIMEN Ordering Facility: [facility] Address: [address] [place] [address] Performed By: #### P SAS1 #### [facility] CLIA [id number] [address] [place] [address] [place] Calcium [Mass/Vol] 10.1 mg/dL Normal 8.5-10.2 [facility] Comment on above: Order Comment: Speci men Type: BLOOD SPECIMEN Ordering Facility: [facility] Address: [address] [place] [address] Performed By: #### P SAS1 #### [facility] CLIA [id number] [address] [place] [address] [place] Chloride [Moles/Vol] 102 mmol/L Normal 98-107 [facility] Comment on above: Order Comment: Speci men Type: BLOOD SPECIMEN Ordering Facility: [facility] Address: [address] [place] [address] Performed By: #### P SAS1 #### [facility] CLIA [id number] [address] [place] [address] [place] CO2 [Moles/Vol] 27 mmol/L Normal 22-30 [facility] Comment on above: Order Comment: Speci men Type: BLOOD SPECIMEN Ordering Facility: [facility] Address: [address] [place] [address] Performed By: #### P SAS1 #### [facility] IA [id number] [address] [place] [address] [place] Creatinine [Mass/Vol] 0.90 mg/dL Normal 0.73-1.22 [facility] Comment on above: Order Comment: Speci men Type: BLOOD SPECIMEN Ordering Facility: [facility] Address: [address] [place] [address] Performed By: #### P SAS1 #### [facility] IA [id number] [address] [place] [address] [place] Creatinine and Glomerular filtration rate.predicted panel (S/P/Bld) 102 mL/min/1.73m??? Normal >=60 [facility] Comment on above: Order Comment: Cecilia olbato Type: BLOOD SPECIMEN Ordering Facility: [facility] Address: [facility] [facility] [place] [place] [address] Result Comment: Matilda mated Glomerular Filtration Rate (eGFR) is calculated using the 2020 CKD-EPI creatinine equation. This equation utilizes serum creatinine, sex, and age as parameters. The creatinine assay has traceable calibration to isotope dilution-mass spectrometry. Refer to KDIGO guidelines for clinical interpretation. In patients with unstable renal function, e.g. those with acute kidney injury, the eGFR may not accurately reflect actual GFR. Performed By: #### P SAS1 #### [facility] IA [id number] [address] [place] [address] [place] Glucose [Mass/Vol] 99 mg/dL Normal 74-99 [facility] Comment on above: Order Comment: Speci men Type: BLOOD SPECIMEN Ordering Facility: [facility] Address: [address] [place] [address] Result Comment: The Citizen [place] Diabetes Association (ADA) provides guidance for cutoff values for fasting glucose and random glucose. The ADA defines fasting as no caloric intake for at least 8 hours. Fasting plasma glucose results between 100 to 125 mg/dL indicate increased risk for diabetes (prediabetes). Fasting plasma glucose results greater than or equal to 126 mg/dL meet the criteria for diagnosis of diabetes. In the absence of unequivocal hyperglycemia, results should be confirmed by repeat testing. In a patient with classic symptoms of hyperglycemia or hyperglycemic crisis, random plasma glucose results greater than or equal to 200 mg/dL meet the criteria for diagnosis of diabetes. Reference: Standards of Medical Care in Diabetes 2016, [place] Diabetes Association. Diabetes Care. 2016.39(Suppl 1). Performed By: #### P SAS1 #### [facility] CLIA [id number] [address] [place] [address] [place] Potassium [Moles/Vol] 4.3 mmol/L Normal 3.7-5.1 [facility] Comment on above: Order Comment: Cecilia lobato Type: BLOOD SPECIMEN Ordering Facility: [facility] Address: [facility] [facility] [place] [address] Performed By: #### P SAS1 #### [facility] CLIA [id number] [facility] [place] [address] [place] Sodium [Moles/Vol] 137 mmol/L Normal 136-144 [facility] Comment on above: Order Comment: Cecilia lobato Type: BLOOD SPECIMEN Ordering Facility: [facility] Address: [address] [place] [place] [address] Performed By: #### P SAS1 #### [facility] CLIA [id number] [address] [place] [address] [place] Urea nitrogen [Mass/Vol] 13 mg/dL Normal 9-24 [facility] Comment on above: Order Comment: Cecilia lobato Type: BLOOD SPECIMEN Ordering Facility: [facility] Address: [address] [place] [address] Performed By: #### P SAS1 #### [facility] CLIA [id number] [address] [place] [id number] [place] CBC W Auto Differential pane l (Bld)on 02-25-2024 Basophils (Bld) [#/Vol] 0.04 10*3/uL Normal <0.11 [facility] Comment on above: Order Comment: Speci men Type: BLOOD SPECIMEN Ordering Facility: [facility] Address: [address] [facility] [place] [place] [address] Performed By: #### P SAS1 #### [facility] CLIA [id number] [address] [place] [address] [place] Basophils/100 WBC (Bld) 0.5 % Normal [facility] Comment on above: Order Comment: Speci men Type: BLOOD SPECIMEN Ordering Facility: [facility] Address: [address] [facility] [place] [address] Performed By: #### P SAS1 #### [facility] CLIA [id number] [address] [place] [address] [place] Differential cell count method Nom (Bld) Auto Normal [facility] Comment on above: Order Comment: Speci men Type: BLOOD SPECIMEN Ordering Facility: [facility] Address: [address] [facility] [place] [address] Performed By: #### P SAS1 #### [facility] CLIA [id number] [address] [place] [address] [place] Eosinophils (Bld) [#/Vol] 0.17 10*3/uL Normal <0.46 [facility] Comment on above: Order Comment: Speci men Type: BLOOD SPECIMEN Ordering Facility: [facility] Address: [address] [facility] [place] [address] Performed By: #### P SAS1 #### [facility] CLIA [id number] [address] [place] [address] [place] Eosinophils/100 WBC (Bld) 2.1 % Normal [facility] Comment on above: Order Comment: Speci men Type: BLOOD SPECIMEN Ordering Facility: [facility] Address: [address] [address] Performed By: #### P SAS1 #### [facility] IA [id number] [address] [place] [address] [place] Erythrocyte distribution width (RBC) [Ratio] 13.9 % Normal 11.5-15.0 [facility] Comment on above: Order Comment: Speci men Type: BLOOD SPECIMEN Ordering Facility: [facility] Address: [address] [address] Performed By: #### P SAS1 #### [facility] IA [id number] [address] [place] [address] [place] Hematocrit (Bld) [Volume fraction] 46.6 % Normal 39.0-51.0 [facility] Comment on above: Order Comment: Speci men Type: BLOOD SPECIMEN Ordering Facility: [facility] Address: [address] [address] Performed By: #### P SAS1 #### [facility] IA [id number] [address] [place] [address] [place] Hemoglobin (Bld) [Mass/Vol] 15.3 g/dL Normal 13.0-17.0 [facility] Comment on above: Order Comment: Speci men Type: BLOOD SPECIMEN Ordering Facility: [facility] Address: [address] [address] Performed By: #### P SAS1 #### [facility] IA [id number] [address] [place] [address] [place] Immature granulocytes (Bld) [#/Vol] 10*3/uL Normal <0.10 [facility] Comment on above: Order Comment: Speci men Type: BLOOD SPECIMEN Ordering Facility: [facility] Address: [address] [address] Performed By: #### P SAS1 #### [facility] CLIA [id number] [address] [place] [address] [place] Immature granulocytes/100 WBC (Bld) 0.1 % Normal [facility] Comment on above: Order Comment: Speci men Type: BLOOD SPECIMEN Ordering Facility: [facility] Address: [address] [place] [place] [address] Performed By: #### P SAS1 #### [facility] IA [id number] [address] [place] [address] [place] Lymphocytes (Bld) [#/Vol] 2.45 10*3/uL Normal 1.00-4.00 [facility] Comment on above: Order Comment: Speci men Type: BLOOD SPECIMEN Ordering Facility: [facility] Address: [address] [place] [address] [place] [address] Performed By: #### P SAS1 #### [facility] IA [id number] [address] [place] [address] [place] Lymphocytes/100 WBC (Bld) 30.5 % Normal [facility] Comment on above: Order Comment: Speci men Type: BLOOD SPECIMEN Ordering Facility: [facility] Address: [facility] [facility] [place] [address] Performed By: #### P SAS1 #### [facility] IA [id number] [address] [place] [address] [place] MCH (RBC) [Entitic mass] 27.3 pg Normal 26.0-34.0 [facility] Comment on above: Order Comment: Speci men Type: BLOOD SPECIMEN Ordering Facility: [facility] Address: [address] [facility] [place] [address] Performed By: #### P SAS1 #### [facility] IA [id number] [address] [place] [address] [place] MCHC (RBC) [Mass/Vol] 32.8 g/dL Normal 30.5-36.0 [facility] Comment on above: Order Comment: Speci men Type: BLOOD SPECIMEN Ordering Facility: [facility] Address: [address] [address] Performed By: #### P SAS1 #### [facility] CLIA [id number] [address] [place] [address] [place] MCV (RBC) [Entitic vol] 83.1 fL Normal 80.0-100.0 [facility] Comment on above: Order Comment: Speci men Type: BLOOD SPECIMEN Ordering Facility: [facility] Address: [address] [address] Performed By: #### P SAS1 #### [facility] CLIA [id number] [address] [place] [address] [place] Monocytes (Bld) [#/Vol] 0.74 10*3/uL Normal <0.87 [facility] Comment on above: Order Comment: Speci men Type: BLOOD SPECIMEN Ordering Facility: [facility] Address: [address] [address] Performed By: #### P SAS1 #### [facility] CLIA [id number] [address] [place] [address] [place] Monocytes/100 WBC (Bld) 9.2 % Normal [facility] Comment on above: Order Comment: Speci men Type: BLOOD SPECIMEN Ordering Facility: [facility] Address: [address] [facility] [place] [address] Performed By: #### P SAS1 #### [facility] CLIA [id number] [address] [place] [address] [place] Neutrophils (Bld) [#/Vol] 4.62 10*3/uL Normal 1.45-7.50 [facility] Comment on above: Order Comment: Speci men Type: BLOOD SPECIMEN Ordering Facility: [facility] Address: [address] [place] [address] Performed By: #### P SAS1 #### [facility] CLIA [id number] [address] [place] [address] [place] Neutrophils/100 WBC (Bld) 57.6 % Normal [facility] Comment on above: Order Comment: Speci men Type: BLOOD SPECIMEN Ordering Facility: [facility] Address: [address] [place] [address] Performed By: #### P SAS1 #### [facility] CLIA [id number] [address] [place] [address] [place] Nucleated RBC (Bld) [#/Vol] 10*3/uL Normal <0.01 [facility] Comment on above: Order Comment: Speci men Type: BLOOD SPECIMEN Ordering Facility: [facility] Address: [address] [place] [address] Performed By: #### P SAS1 #### [facility] CLIA [id number] [address] [place] [address] [place] Nucleated RBC/100 WBC (Bld) [Ratio] 0.0 /100 WBC Normal [facility] Comment on above: Order Comment: Speci men Type: BLOOD SPECIMEN Ordering Facility: [facility] Address: [address] [place] [address] Performed By: #### P SAS1 #### [facility] CLIA [id number] [address] [place], [place] [address] [place] Platelet mean volume (Bld) [Entitic vol] 8.5 fL Low 9.0-12.7 [facility] Comment on above: Order Comment: Speci men Type: BLOOD SPECIMEN Ordering Facility: [facility] Address: [address] [place] [address] Performed By: #### P SAS1 #### [facility] CLIA [id number] [address] [address] [place] Platelets (Bld) [#/Vol] 336 10*3/uL Normal 150-400 [facility] Comment on above: Order Comment: Speci men Type: BLOOD SPECIMEN Ordering Facility: [facility] Address: [address] [place] [address] [place] [address] Performed By: #### P SAS1 #### [facility] CLIA [id number] [address] [place] [address] [place] RBC (Bld) [#/Vol] 5.61 10*6/uL Normal 4.20-6.00 [facility] Comment on above: Order Comment: Speci men Type: BLOOD SPECIMEN Ordering Facility: [facility] Address: [address] [place] [address] [place] [address] Performed By: #### P SAS1 #### [facility] CLIA [id number] [address] [place], [place] [address] [place] WBC (Bld) [#/Vol] 8.03 10*3/uL Normal 3.70-11.00 [facility] Comment on above: Order Comment: Speci men Type: BLOOD SPECIMEN Ordering Facility: [facility] Address: [address] [place] [address] [place] [address] Performed By: #### P SAS1 #### [facility] IA [id number] [address] [place] [address] [place] HbA1c (Bld)on 02-25-2024 Average glucose Estimated from glycated hemoglobin (Bld) [Mass/Vol] 114 mg/dL Normal [facility] Comment on above: Order Comment: Speci men Type: BLOOD SPECIMEN Ordering Facility: [facility] Address: [address] [place] [address] [place] [address] Result Comment: eAG: (Estimated average glucose) is a calculated value from HgbA1c and is risk control representative of the average blood glucose level in the last 2-3 month period. Performed By: #### P SAS1 #### [facility] CLIA [id number] [address] [place] [address] [place] HbA1c (Bld) [Mass fraction] 5.6 % Normal 4.3-5.6 [facility] Comment on above: Order Comment: Speci men Type: BLOOD SPECIMEN Ordering Facility: [facility] Address: [facility] [address] [place] [address] Result Comment: [place] Diabetes Association guidelines indicate that patients with HgbA1c in the range 5.7-6.4% are at increased risk for development of diabetes, and intervention by lifestyle modification may be beneficial. HgbA1c greater or equal to 6.5% is considered diagnostic of diabetes. Performed By: #### P SAS1 #### [facility] CLIA [id number] [address] [place] [address] [place] Hepatic function 2000 panelo n 02-25-2024 Albumin [Mass/Vol] 4.6 g/dL Normal 3.9-4.9 [facility] Comment on above: Order Comment: Speci men Type: BLOOD SPECIMEN Ordering Facility: [facility] Address: [facility] [place] [address] Performed By: #### P SAS1 #### [facility] CLIA [id number] [address] [place] [address] [place] ALP [Catalytic activity/Vol] 70 U/L Normal 38-113 [facility] Comment on above: Order Comment: Speci men Type: BLOOD SPECIMEN Ordering Facility: [facility] Address: [address] [address] Performed By: #### P SAS1 #### [facility] CLIA [id number] [address] [place] [address] [place] ALT [Catalytic activity/Vol] 23 U/L Normal 10-54 [facility] Comment on above: Order Comment: Speci men Type: BLOOD SPECIMEN Ordering Facility: [facility] Address: [address] [place] [address] Performed By: #### P SAS1 #### [facility] CLIA [id number] [address] [place], [place] [id number] [place] AST [Catalytic activity/Vol] 20 U/L Normal 14-40 [facility] Comment on above: Order Comment: Speci men Type: BLOOD SPECIMEN Ordering Facility: [facility] Address: [address] [address] Performed By: #### P SAS1 #### [facility] [place] [id number] [address] [place] [address] [place] Bilirubin [Mass/Vol] 1.7 mg/dL High 0.2-1.3 [facility] Comment on above: Order Comment: Speci men Type: BLOOD SPECIMEN Ordering Facility: [facility] Address: [address] [address] Performed By: #### P SAS1 #### [facility] [place] [id number] [address] [place] [address] [place] Bilirubin.conjugated [Mass/Vol] 0.4 mg/dL High <0.2 [facility] Comment on above: Order Comment: Speci men Type: BLOOD SPECIMEN Ordering Facility: [facility] Address: [address] [address] Performed By: #### P SAS1 #### [facility] [place] [id number] [address] [place], [place] [address] [place] Protein [Mass/Vol] 7.4 g/dL Normal 6.3-8.0 [facility] Comment on above: Order Comment: Speci men Type: BLOOD SPECIMEN Ordering Facility: [facility] Address: [address] [address] Performed By: #### P SAS1 #### [facility] CLIA [id number] [address] [place] [address] [place] Lipid 1996 panelon 4 Cholesterol [Mass/Vol] 151 mg/dL Normal <200 [facility] Comment on above: Order Comment: Speci men Type: BLOOD SPECIMEN Ordering Facility: [facility] Address: [address] [place] [address] Result Comment: <200 mg/dL, Desirable 200-239 mg/dL, Borderline high >239 mg/dL, High Performed By: #### 3 016-3 #### [facility] CLIA [id number] [address] [place] [address] [place] #### 78820-9 #### [facility] CLIA [id number] [address] [place] [address] [place] [facility] CLIA [id number] [address] [place] [address] [place] Cholesterol in HDL [Mass/Vol] 31 mg/dL Low >39 [facility] Comment on above: Order Comment: Speci men Type: BLOOD SPECIMEN Ordering Facility: [facility] Address: [address] [place] [address] Result Comment: 40-5 9 mg/dL, Acceptable >59 mg/dL, High: Negative risk factor for coronary heart disease <40 mg/dL, Low: Positive risk factor for coronary heart disease Performed By: #### 3 016-3 #### [facility] CLIA [id number] [address] [place] [address] [place] #### 11508-5 #### [facility] CLIA [id number] [address] [place] [address] [place] [facility] CLIA [id number] [address] [place] [address] [place] Cholesterol in LDL [Mass/Vol] 82 mg/dL Normal <100 [facility] Comment on above: Order Comment: Cecilia luis alfredo Type: BLOOD SPECIMEN Ordering Facility: [facility] Address: [address] [place] [address] Result Comment: <100 mg/dL, Optimal 100-129 mg/dL, Near optimal/above optimal 130-159 mg/dL, Borderline high 160-189 mg/dL, High >189 mg/dL, Very high Secondary prevention optimal LDL Cholesterol levels are recommended to be < 70 mg/dL Performed By: #### 3 016-3 #### [facility] CLIA [id number] [address] [place] [address] [place] #### 95266-6 #### [facility] CLIA [id number] [address] [place] [address] [place] [facility] [id number] [address] [place] [address] [place] Cholesterol in LDL/Cholesterol in HDL [Mass ratio] 2.65 {ratio} High <2.54 [facility] Comment on above: Order Comment: Cecilia lobato Type: BLOOD SPECIMEN Ordering Facility: [facility] Address: [address] [place] [address] Result Comment: Mary suresh: 1. National Cholesterol Education Program ATP III Guideline At-A-Glance Quick Desk Reference: National Heart, Lung, and Blood [place]. National Institutes of Health. 2001: NIH Publication No. 01-3305. 2. An International Atherosclerosis Society position paper: global recommendations for the management of dyslipidemia: executive summary, Atherosclerosis. 2014: 232(2):410-413. Performed By: #### 3 016-3 #### [facility] CLIA [id number] [address] [place] [address] [place] #### 10163-0 #### [facility] CLIA [id number] [address] [place] [address] [place] [facility] CLIA [id number] [address] [place] [address] [place] Cholesterol in VLDL [Mass/Vol] 38 mg/dL High <30 [facility] Comment on above: Order Comment: Cecilia men Type: BLOOD SPECIMEN Ordering Facility: [facility] Address: [address] [place] [address] Performed By: #### 3 016-3 #### [facility] CLIA [id number] [address] [place] [address] [place] #### 58808-3 #### [facility] CLIA [id number] [address] [place] [address] [place] [facility] CLIA [id number] [address] [place] [address] [place] Cholesterol non HDL [Mass/Vol] 120 mg/dL Normal <130 [facility] Comment on above: Order Comment: Mervati men Type: BLOOD SPECIMEN Ordering Facility: [facility] Address: [address] [place] [address] Result Comment: <130 mg/dL, Optimal 130-159 mg/dL, Near optimal/above optimal 160-189 mg/dL, Borderline high 190-219 mg/dL, High >219 mg/dL, Very high Secondary prevention optimal non HDL Cholesterol levels are recommended to be <100 mg/dL Performed By: #### 3 016-3 #### [facility] CLIA [id number] [address] [place] [address] [place] #### 78935-3 #### [facility] CLIA [id number] [address] [place] [address] [place] [facility] CLIA [id number] [address] [place] [address] [place] Cholesterol.total/Chol esterol in HDL [Mass ratio] 4.87 {ratio} Normal <5.10 [facility] Comment on above: Order Comment: Mervati men Type: BLOOD SPECIMEN Ordering Facility: [facility] Address: [address] [place] [address] Performed By: #### 3 016-3 #### [facility] CLIA [id number] [address] [place] [address] [place] #### 86804-2 #### [facility] CLIA [id number] [address] [place] [address] [place] [facility] CLIA [id number] [address] [place] [address] [place] FASTING TIME 14 hrs Normal [facility] Comment on above: Order Comment: Speci men Type: BLOOD SPECIMEN Ordering Facility: [facility] Address: [address] [place] [address] Performed By: #### 3 016-3 #### [facility] CLIA [id number] [address] [place] [address] [place] #### 99305-1 #### [facility] CLIA [id number] [address] [place] [address] [place] [facility] [id number] [address] [place] [address] [place] Triglyceride [Mass/Vol] 188 mg/dL High <150 [facility] Comment on above: Order Comment: Speci men Type: BLOOD SPECIMEN Ordering Facility: [facility] Address: [address] [place] [address] Result Comment: <150 mg/dL, Normal 150-199 mg/dL, Borderline high 200-499 mg/dL, High >499 mg/dL, Very high Performed By: #### 3 016-3 #### [facility] CLIA [id number] [address] [place] [address] [place] #### 70678-4 #### [facility] CLIA [id number] [address] [place] [address] [place] [facility] CLIA [id number] [address] [place] [address] [place] PSA/PROSTATE SPECIFIC ANTIGE N SCREENINGon 02-25-2024 Prostate specific Ag [Mass/Vol] 1.01 ng/mL Normal <2.60 [facility] Comment on above: Order Comment: Speci men Type: BLOOD SPECIMEN Ordering Facility: [facility] Address: [facility] [address] [place] [address] Result Comment: Tota l PSA test methodology used is the Electrochemiluminescence Immunoassay by Alessandro Acsendo. Total PSA values by differing methodologies cannot be interchanged. Performed By: #### P SAS1 #### [facility] CLIA [id number] [address] [place] [address] [place] TSH SerPl-aCncon 02-25-2024 TSH Qn 1.190 m[IU]/L Normal 0.270-4.20 0 [facility] Comment on above: Order Comment: Speci men Type: BLOOD SPECIMEN Ordering Facility: [facility] Address: [facility] [address] [facility] [place] [address] Performed By: #### 3 016-3 #### [facility] CLIA [id number] [address] [place] [address] [place] #### 83547-6 #### [facility] CLIA [id number] [address] [place] [address] [place] [facility] CLIA [id number] [address] [place] [address] [place] Pilar 02-16-2024 [facility] -- GEORGIE ELIZABETH ([id number]) 1970 M Date Time Provider Department 02/16/24 HARINI CESAR During your visit today, we recorded the following information about you: Harini Cesar [facility] 02/16/2024 8:51 AM Signed [facility]tico[facility] Clinic Anticoagulation Episode Summary Anticoagulation Care Providers Provider Role Specialty Phone number Saurav Bob MD Referring Internal Medicine [phone] Georgie Elizabeth is a 53 year old year old male patient being evaluated today for a Telemanagement visit. Patient is currently on the following anticoagulant(s) Warfarin. Labs PT INR (no units) Date Value 10/04/2023 2.0 07/11/2023 2.8 johanna per pt 01/26/2023 4.8 (self-reporting) INR Home CoaguChek (no units) Date Value 02/15/2024 2.5 01/18/2024 2.7 12/28/2023 2.6 Hemoglobin (g/dL) Date Value 08/03/2023 14.8 08/05/2015 14.6 Hematocrit (%) Date Value 08/03/2023 44.8 08/05/2015 43.7 Platelet Count (k/uL) Date Value 08/03/2023 281 08/05/2015 327 Creatinine (mg/dL) Date Value 08/03/2023 0.85 04/22/2023 0.87 08/19/2022 0.94 08/05/2015 1.09 08/05/2015 1.03 02/17/2015 0.99 Bilirubin, Total (mg/dL) Date Value 08/03/2023 1.3 08/05/2015 0.8 ALT (U/L) Date Value 08/03/2023 26 08/05/2015 34 AST (U/L) Date Value 08/03/2023 21 08/05/2015 23 CrCl cannot be calculated (Patient's most recent lab result is older than the maximum 180 days allowed.). ALLERGIES Allergen Reactions Codeine Mental Status Change Sulfa Drugs [Sulfa * Myalgia Indication for Warfarin: Mechanical heart valve present 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 History of mitral valve replacement with mechanical valve Anticoagulation Episode Summary Current INR goal: 2.5-3.5 Assessment: INR result of 2.5 is therapeutic Plan: Current Warfarin Dosing As of 02/16/2024 Full warfarin instructions: 12.5 mg every Mon, Wed, Fri; 10 mg all other days Sent [employer] message Advised patient to continue current weekly dose as noted above Next lab INR check scheduled on 03/15/2024 Patient advised to call the PAC with any medication changes, bleeding/bruising concerns, recent changes in vitamin k consumption, if any procedures are coming up, if they have been ill or in the hospital, and if they have missed any doses of warfarin. Harini Cesar RPh Clinical Pharmacist, Pharmacy Anticoagulation Clinic Pharmacy Anticoagulation Clinic Pager: [phone]. Harini Cesar RPh 03/15/2024 11:54 AM Signed Patient was due to test INR today will continue to monitor for results. Harini Cesar PharmD Pharmacy Anticoagulation Clinic Harini Cesar [facility] 03/22/2024 12:03 PM Signed Georgie Elizabeth was sent a [employer] msg and reminded to test INR today or as soon as possible. Harini Cesar PharmD Pharmacy Anticoagulation Clinic Harini Cesar [facility] 03/29/2024 10:16 AM Signed Georgie Elizabeth was called and reminded to test INR today or as soon as possible. Pt said he will try to test later today. He is aware that we may not reach him until Wednesday depending on when it returns. Also, he said he tested last week and the INR was 4.0 but he didn't report it. Advised to please report his results to [facility] as neither them nor us have received results since 02/14. Harini Cesar PharmD Pharmacy Anticoagulation Clinic Allergies As of Date: 02/16/2024 Noted Allergy Reaction CODEINE 10/30/2013 1 - Mental Status Change SULFA DRUGS (SULFA (SULFONAMIDE A*04/21/2023 17 - Myalgia Date Reviewed: 10/25/2023 Reviewed by: Guillermo Pedro OCCA - Fully Assessed Reason for Visit: Anticoagulation Telephone Fu [148] Cmt: Home INR Primary Visit Diagnosis: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] Other Visit Diagnoses: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 [Z79.01] History of mitral valve replacement with mechanical valve [Z95.2] Prescriptions as of 03/29/2024 - warfarin (COUMADIN) 10 mg tablet Take 15 mg every Wed, Wed; 12.5 mg all other days or as directed by anticoagulation clinic. (Takes with 5 mg tablets) - warfarin (COUMADIN) 5 mg tablet Take 15 mg every Mon, Wed; 12.5 mg all other days or as directed by anticoagulation clinic. (Takes with 10 mg tablets) - pantoprazole DR (PROTONIX) 40 mg tablet Take 1 tablet by mouth once daily. On empty stomach at least 30 minutes before eating. - rosuvastatin (CRESTOR) 20 mg tablet Take 1 tablet by mouth once daily. - CPAP/BIPAP/OTHER Type .CPAPSettings into a note to see current settings/supplies/DME information. - metoprolol succinate ER (TOPROL XL) 50 mg 24 hr tablet Take 1.5 tablets by mouth once daily. - coenzyme Q10 (CO Q-10) 100 mg cap capsule Take 1 capsule by mouth once daily. - enoxaparin (LOVENOX) 120 mg/0.8 mL injection Inject 120 mg sub (more content not included)... Normal [facility] 01-19-2024 CNPN Telephone ([facility]) -- GEORGIE ELIZABETH ([id number]) 1970 M Date Time Provider Department 01/19/24 HARINI CESAR During your visit today, we recorded the following information about you: Harini Cesar RPh 01/19/2024 8:28 AM Signed [facility] Anticoagulation Clinic Anticoagulation Episode Summary Anticoagulation Care Providers Provider Role Specialty Phone number Saurav Bob MD Referring Internal Medicine [phone] Georgie Elizabeth is a 53 year old year old male patient being evaluated today for a Telemanagement visit. Patient is currently on the following anticoagulant(s) Warfarin. Labs PT INR (no units) Date Value 10/04/2023 2.0 07/11/2023 2.8 johanna per pt 01/26/2023 4.8 (self-reporting) INR Home CoaguChek (no units) Date Value 01/18/2024 2.7 12/28/2023 2.6 12/21/2023 4.4 Hemoglobin (g/dL) Date Value 08/03/2023 14.8 08/05/2015 14.6 Hematocrit (%) Date Value 08/03/2023 44.8 08/05/2015 43.7 Platelet Count (k/uL) Date Value 08/03/2023 281 08/05/2015 327 Creatinine (mg/dL) Date Value 08/03/2023 0.85 04/22/2023 0.87 08/19/2022 0.94 08/05/2015 1.09 08/05/2015 1.03 02/17/2015 0.99 Bilirubin, Total (mg/dL) Date Value 08/03/2023 1.3 08/05/2015 0.8 ALT (U/L) Date Value 08/03/2023 26 08/05/2015 34 AST (U/L) Date Value 08/03/2023 21 08/05/2015 23 Estimated Creatinine Clearance: 135.9 mL/min (based on SCr of 0.85 mg/dL). ALLERGIES Allergen Reactions Codeine Mental Status Change Sulfa Drugs [Sulfa * Myalgia Indication for Warfarin: Mechanical heart valve present 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 History of mitral valve replacement with mechanical valve Anticoagulation Episode Summary Current INR goal: 2.5-3.5 Assessment: INR result of 2.7 is therapeutic Plan: Current Warfarin Dosing As of 01/19/2024 Full warfarin instructions: 12.5 mg every Mon, Wed, Fri; 10 mg all other days Sent [employer] message Advised patient to continue current weekly dose as noted above Next lab INR check scheduled on 02/16/2024 Harini Cesar [facility] Clinical Pharmacist, Pharmacy Anticoagulation Clinic Pharmacy Anticoagulation Clinic Pager: [phone]. Allergies As of Date: 01/19/2024 Noted Allergy Reaction CODEINE 10/30/2013 1 - Mental Status Change SULFA DRUGS (SULFA (SULFONAMIDE A*04/21/2023 17 - Myalgia Date Reviewed: 10/25/2023 Reviewed by: Guillermo Pedro OCCA - Fully Assessed Reason for Visit: Anticoagulation Telephone Fu [148] Cmt: Lab INR results Primary Visit Diagnosis: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] Other Visit Diagnoses: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 [Z79.01] History of mitral valve replacement with mechanical valve [Z95.2] Prescriptions as of 01/19/2024 - rosuvastatin (CRESTOR) 20 mg tablet Take 1 tablet by mouth once daily. - CPAP/BIPAP/OTHER Type .CPAPSettings into a note to see current settings/supplies/DME information. - pantoprazole DR (PROTONIX) 40 mg tablet Take 1 tablet by mouth once daily. On empty stomach at least 30 minutes before eating. - warfarin (COUMADIN) 10 mg tablet Take 15 mg every Mon, Wed; 12.5 mg all other days or as directed by anticoagulation clinic. (Takes with 5 mg tablets) - warfarin (COUMADIN) 5 mg tablet Take 15 mg every Mon, Wed; 12.5 mg all other days or as directed by anticoagulation clinic. (Takes with 10 mg tablets) - metoprolol succinate ER (TOPROL XL) 50 mg 24 hr tablet Take 1.5 tablets by mouth once daily. - coenzyme Q10 (CO Q-10) 100 mg cap capsule Take 1 capsule by mouth once daily. - enoxaparin (LOVENOX) 120 mg/0.8 mL injection Inject 120 mg subcutaneously. - CPAP/BIPAP/OTHER Continue ASV with current settings of EPAP 5 cm H2O with PS 4-12 cmH2O. Lifetime supplies for ASV, including patient preferred mask, head gear, heated tubing, humidity, filters, chin strap. Dx: Obstructive Sleep Apnea G47.33 DME: [facility] - aspirin 81 mg chewable tablet Take 1 tablet by mouth once daily. - BIPAP Please service machine, humidifier causing issues. Lifetime supplies G47.33 DOREEN - BIPAP ASV EPAP min 5 cm H20, PS 4-12 cm H20. Mask fitting to consider Dream wear FFM. Provide lifetime supplies including tubing, heated humidity, filters. Dx: G47.33 AND G47.37. - BIPAP Fax 30 day download report to [phone] to assess usage and residual AHI after receipt of replacement ASV. - Melatonin 5 mg tab Take by mouth as needed. - ACETAMINOPHEN (TYLENOL EXTRA STRENGTH ORAL) Take by mouth as needed. Facility-Administered Medications as of 01/19/2024 - perflutren lipid microspheres 1.3 mL in NaCl (PF) 0.9% 10 mL injection (DEFINITY) - sodium chloride 0.9 % (flush) 10 mL (BD POSIFLUSH) Problem List As Of Date 01/19/2024 Noted Resolved Pre-op testing [Z01.818] 11/01/2013 (more content not included)... Normal [facility] -- GEORGIE ELIZABETH ([id number]) 1970 M Date Time Provider Department 01/12/24 CECY NUNN During your visit today, we recorded the following information about you: Allergies As of Date: 01/12/2024 Noted Allergy Reaction CODEINE 10/30/2013 1 - Mental Status Change SULFA DRUGS (SULFA (SULFONAMIDE A*04/21/2023 17 - Myalgia Date Reviewed: 10/25/2023 Reviewed by: Guillermo Pedro OCCA - Fully Assessed Prescriptions as of 01/12/2024 - rosuvastatin (CRESTOR) 20 mg tablet Take 1 tablet by mouth once daily. - CPAP/BIPAP/OTHER Type .CPAPSettings into a note to see current settings/supplies/DME information. - pantoprazole DR (PROTONIX) 40 mg tablet Take 1 tablet by mouth once daily. On empty stomach at least 30 minutes before eating. - warfarin (COUMADIN) 10 mg tablet Take 15 mg every Mon, Wed; 12.5 mg all other days or as directed by anticoagulation clinic. (Takes with 5 mg tablets) - warfarin (COUMADIN) 5 mg tablet Take 15 mg every Mon, Wed; 12.5 mg all other days or as directed by anticoagulation clinic. (Takes with 10 mg tablets) - metoprolol succinate ER (TOPROL XL) 50 mg 24 hr tablet Take 1.5 tablets by mouth once daily. - coenzyme Q10 (CO Q-10) 100 mg cap capsule Take 1 capsule by mouth once daily. - enoxaparin (LOVENOX) 120 mg/0.8 mL injection Inject 120 mg subcutaneously. - CPAP/BIPAP/OTHER Continue ASV with current settings of EPAP 5 cm H2O with PS 4-12 cmH2O. Lifetime supplies for ASV, including patient preferred mask, head gear, heated tubing, humidity, filters, chin strap. Dx: Obstructive Sleep Apnea G47.33 DME: [facility] - aspirin 81 mg chewable tablet Take 1 tablet by mouth once daily. - BIPAP Please service machine, humidifier causing issues. Lifetime supplies G47.33 DOREEN - BIPAP ASV EPAP min 5 cm H20, PS 4-12 cm H20. Mask fitting to consider Dream wear FFM. Provide lifetime supplies including tubing, heated humidity, filters. Dx: G47.33 AND G47.37. - BIPAP Fax 30 day download report to [phone] to assess usage and residual AHI after receipt of replacement ASV. - Melatonin 5 mg tab Take by mouth as needed. - ACETAMINOPHEN (TYLENOL EXTRA STRENGTH ORAL) Take by mouth as needed. Facility-Administered Medications as of 01/12/2024 - perflutren lipid microspheres 1.3 mL in NaCl (PF) 0.9% 10 mL injection (DEFINITY) - sodium chloride 0.9 % (flush) 10 mL (BD POSIFLUSH) Problem List As Of Date 01/12/2024 Noted Resolved Pre-op testing [Z01.818] 11/01/2013 11/16/2013 History of cardiomyopathy [Z86.79] 11/01/2013 Mitral valve regurgitation [I34.0] 11/01/2013 11/16/2013 Cardiac insufficiency (HCC) [I50.9] 11/13/2013 11/14/2013 Stress hyperglycemia [R73.9] 11/13/2013 11/16/2013 Postoperative pain [G89.18] 11/13/2013 11/22/2013 LBBB [I44.7] 11/13/2013 Hypotension [I95.9] 11/13/2013 11/16/2013 Atelectasis [J98.11] 11/15/2013 04/29/2020 Fluid overload [E87.70] 11/15/2013 11/16/2013 Central sleep apnea treated with adaptive servo*11/15/2013 Urethral stricture [N35.919] 11/15/2013 11/16/2013 SUMMARY [V999.95] 11/16/2013 04/29/2020 Hypertension [I10] 11/16/2013 Pericardial effusion [I31.39] 11/17/2013 11/22/2013 Hypovolemia [E86.1] 11/20/2013 11/22/2013 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9] 12/22/2022 Diagnosed: 12/22/2022 Hyperbilirubinemia [E80.6] 12/22/2022 Diagnosed: 12/22/2022 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] 11/10/2022 Adenomatous colon polyp [D12.6] 01/08/2022 DOREEN (obstructive sleep apnea) [G47.33] 08/03/2023 Incomplete bladder emptying [R33.9] 10/11/2023 History of urethral stricture [Z87.448] 10/25/2023 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] 11/25/2023 Encounter Status:Closed by BREANA RANDLE on 01/12/24 [facility] (PHARAV[facility] -- GEORGIE ELIZABETH ([id number]) 1970 M Date Time Provider Department 12/28/23 PUSHPA SALGUERO PHADARYL During your visit today, we recorded the following information about you: Pushpa Salguero [facility] 12/28/2023 3:26 PM Signed [facility] Anticoagulation Clinic Anticoagulation Episode Summary Anticoagulation Care Providers Provider Role Specialty Phone number Saurav Bob MD Referring Internal Medicine [phone] Georgie Elizabeth is a 53 year old year old male patient being evaluated today for a Telemanagement visit. Patient is currently on the following anticoagulant(s) Warfarin. Labs PT INR (no units) Date Value 10/04/2023 2.0 07/11/2023 2.8 johanna per pt 01/26/2023 4.8 (self-reporting) INR Home CoaguChek (no units) Date Value 12/28/2023 2.6 12/21/2023 4.4 12/14/2023 2.1 Hemoglobin (g/dL) Date Value 08/03/2023 14.8 08/05/2015 14.6 Hematocrit (%) Date Value 08/03/2023 44.8 08/05/2015 43.7 Platelet Count (k/uL) Date Value 08/03/2023 281 08/05/2015 327 Creatinine (mg/dL) Date Value 08/03/2023 0.85 04/22/2023 0.87 08/19/2022 0.94 08/05/2015 1.09 08/05/2015 1.03 02/17/2015 0.99 Bilirubin, Total (mg/dL) Date Value 08/03/2023 1.3 08/05/2015 0.8 ALT (U/L) Date Value 08/03/2023 26 08/05/2015 34 AST (U/L) Date Value 08/03/2023 21 08/05/2015 23 Estimated Creatinine Clearance: 135.9 mL/min (based on SCr of 0.85 mg/dL). ALLERGIES Allergen Reactions Codeine Mental Status Change Sulfa Drugs [Sulfa * Myalgia Indication for Warfarin: Mechanical heart valve present 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 History of mitral valve replacement with mechanical valve Anticoagulation Episode Summary Current INR goal: 2.5-3.5 Assessment: INR result of 2.6 is therapeutic Plan: Current Warfarin Dosing As of 12/28/2023 Full warfarin instructions: 12.5 mg every Mon, Wed, Fri; 10 mg all other days Sent [employer] message Advised patient to continue current weekly dose as noted above Next home INR check scheduled on 01/11/2024 Patient verbalizes understanding of the plan. Patient denies need for refills. Pushpa Salguero [facility] Clinical Pharmacist, Pharmacy Anticoagulation Clinic Pharmacy Anticoagulation Clinic Pager: [phone]. Gunnar Patel [facility] 01/11/2024 2:58 PM Signed Patient was due to test INR today. Will continue to monitor for results. Follow up in one week if no results received. Gunnar Patel [facility] Gunnar Patel [facility] 01/18/2024 5:21 PM Signed Georgie Elizabeth was called, stp and reminded to test INR today or as soon as possible. Gunnar Patel [facility] Allergies As of Date: 12/28/2023 Noted Allergy Reaction CODEINE 10/30/2013 1 - Mental Status Change SULFA DRUGS (SULFA (SULFONAMIDE A*04/21/2023 17 - Myalgia Date Reviewed: 10/25/2023 Reviewed by: Guillermo Pedro OCCA - Fully Assessed Reason for Visit: Anticoagulation Telephone Fu [[id number]] Cmt: Home INR result Primary Visit Diagnosis: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] Other Visit Diagnoses:senior care (current) use of anticoagulants [Z79.01] History of mitral valve replacement with mechanical valve [Z95.2] Prescriptions as of 01/18/2024 - rosuvastatin (CRESTOR) 20 mg tablet Take 1 tablet by mouth once daily. - CPAP/BIPAP/OTHER Type .CPAPSettings into a note to see current settings/supplies/DME information. - pantoprazole DR (PROTONIX) 40 mg tablet Take 1 tablet by mouth once daily. On empty stomach at least 30 minutes before eating. - warfarin (COUMADIN) 10 mg tablet Take 15 mg every Mon, Wed; 12.5 mg all other days or as directed by anticoagulation clinic. (Takes with 5 mg tablets) - warfarin (COUMADIN) 5 mg tablet Take 15 mg every Mon, Wed; 12.5 mg all other days or as directed by anticoagulation clinic. (Takes with 10 mg tablets) - metoprolol succinate ER (TOPROL XL) 50 mg 24 hr tablet Take 1.5 tablets by mouth once daily. - coenzyme Q10 (CO Q-10) 100 mg cap capsule Take 1 capsule by mouth once daily. - enoxaparin (LOVENOX) 120 mg/0.8 mL injection Inject 120 mg subcutaneously. - CPAP/BIPAP/OTHER Continue ASV with current settings of EPAP 5 cm H2O with PS 4-12 cmH2O. Lifetime supplies for ASV, including patient preferred mask, head gear, heated tubing, humidity, filters, chin strap. Dx: Obstructive Sleep Apnea G47.33 DME: ROSEMARIE - aspirin 81 mg chewable tablet Take 1 tablet by mouth once daily. - BIPAP Please service machine, humidifier causing issues. Lifetime supplies G47.33 DOREEN - BIPAP ASV EPAP min 5 cm H20, PS 4-12 cm H20. Mask fitting to consider Dream wear FFM. Provide lifetime supplies including tubing, heated humidity, filters. Dx: G47.33 AND G47.37. - BIPAP Fax 30 day download report to [phone] to assess usage and residual AHI a (more content not included)... 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 - CPAP/BIPAP/OTHER Type .CPAPSettings into a note to see current settings/supplies/DME information. - pantoprazole DR (PROTONIX) 40 mg tablet Take 1 tablet by mouth once daily. On empty stomach at least 30 minutes before eating. - warfarin (COUMADIN) 10 mg tablet Take 15 mg every Mon, Wed; 12.5 mg all other days or as directed by anticoagulation clinic. (Takes with 5 mg tablets) - warfarin (COUMADIN) 5 mg tablet Take 15 mg every Wed, Wed; 12.5 mg all other days or as directed by anticoagulation clinic. (Takes with 10 mg tablets) - metoprolol succinate ER (TOPROL XL) 50 mg 24 hr tablet Take 1.5 tablets by mouth once daily. - coenzyme Q10 (CO Q-10) 100 mg cap capsule Take 1 capsule by mouth once daily. - enoxaparin (LOVENOX) 120 mg/0.8 mL injection Inject 120 mg subcutaneously. - CPAP/BIPAP/OTHER Continue ASV with current settings of EPAP 5 cm H2O with PS 4-12 cmH2O. Lifetime supplies for ASV, including patient preferred mask, head gear, heated tubing, humidity, filters, chin strap. Dx: Obstructive Sleep Apnea G47.33 DME: ROSEMARIE - aspirin 81 mg chewable tablet Take 1 tablet by mouth once daily. - BIPAP Please service machine, humidifier causing issues. Lifetime supplies G47.33 DOREEN - BIPAP ASV EPAP min 5 cm H20, PS 4-12 cm H20. Mask fitting to consider Dream wear FFM. Provide lifetime supplies including tubing, heated humidity, filters. Dx: G47.33 AND G47.37. - BIPAP Fax 30 day download report to [phone] to assess usage and residual AHI after receipt of replacement ASV. - Melatonin 5 mg tab Take by mouth as needed. - ACETAMINOPHEN (TYLENOL EXTRA STRENGTH ORAL) Take by mouth as needed. Facility-Administered Medications as of 12/22/2023 - perflutren lipid microspheres 1.3 mL in NaCl (PF) 0.9% 10 mL injection (DEFINITY) - sodium chloride 0.9 % (flush) 10 mL (BD POSIFLUSH) Letter Text [facility] GLENNGEORGIE ([id number]) 1970 M Date Time Provider Department 12/21/23 ALY JIMÉNEZ During your visit today, we recorded the following information about you: Aly Jiménez [facility] 12/21/2023 4:47 PM Signed [facility] Anticoagulation Clinic Anticoagulation Episode Summary Anticoagulation Care Providers Provider Role Specialty Phone number Saurav Bob MD Referring Internal Medicine [phone] Georgie Elizabeth is a 53 year old year old male patient being evaluated today for a Telemanagement visit. Patient is currently on the following anticoagulant(s) Warfarin. Labs PT INR (no units) Date Value 10/04/2023 2.0 07/11/2023 2.8 johanna per pt 01/26/2023 4.8 (self-reporting) INR Home CoaguChek (no units) Date Value 12/21/2023 4.4 12/14/2023 2.1 11/30/2023 2.5 Hemoglobin (g/dL) Date Value 08/03/2023 14.8 08/05/2015 14.6 Hematocrit (%) Date Value 08/03/2023 44.8 08/05/2015 43.7 Platelet Count (k/uL) Date Value 08/03/2023 281 08/05/2015 327 Creatinine (mg/dL) Date Value 08/03/2023 0.85 04/22/2023 0.87 08/19/2022 0.94 08/05/2015 1.09 08/05/2015 1.03 02/17/2015 0.99 Bilirubin, Total (mg/dL) Date Value 08/03/2023 1.3 08/05/2015 0.8 ALT (U/L) Date Value 08/03/2023 26 08/05/2015 34 AST (U/L) Date Value 08/03/2023 21 08/05/2015 23 Estimated Creatinine Clearance: 135.9 mL/min (based on SCr of 0.85 mg/dL). ALLERGIES Allergen Reactions Codeine Mental Status Change Sulfa Drugs [Sulfa * Myalgia Indication for Warfarin: Anticoagulation Episode Summary Current INR goal: 2.5-3.5 Assessment: INR result of 4.4 is SUPRAtherapeutic due to: No obvious cause (patient denies medication change, grapefruit/cranberry/pomeg ranate/pepito ingestion, OTC medication use, change in herbal/nutritional supplement, accidental overdosage, change in warfarin tablet shape or color, change in vit K consumption, recent illness (NVD, fever), any changes to general health, changes in tobacco use, or EtOH consumption) Plan: Current Warfarin Dosing As of 12/21/2023 Full warfarin instructions: 12/20: Hold; Otherwise 12.5 mg every Mon, Wed, Fri; 10 mg all other days Called and spoke to patient/caregiver Advised patient to hold 1 dose then continue current regimen Next home INR check scheduled on 12/28/2023 Patient verbalizes understanding of the plan. Aly Jiménez RP Clinical Pharmacist, Pharmacy Anticoagulation Clinic Pharmacy Anticoagulation Clinic Pager: [phone]. Pushpa Salguero RPh 12/28/2023 2:02 PM Signed Patient was due to test INR today. Will continue to monitor for results. Follow up in one week if no results received. Pushpa Rachel Salguero Allergies As of Date: 12/21/2023 Noted Allergy Reaction CODEINE 10/30/2013 1 - Mental Status Change SULFA DRUGS (SULFA (SULFONAMIDE A*04/21/2023 17 - Myalgia Date Reviewed: 10/25/2023 Reviewed by: Guillermo Pedro OCCA - Fully Assessed Reason for Visit: Anticoagulation Telephone Fu [148] Cmt: Home INR result Prescriptions as of 12/28/2023 - rosuvastatin (CRESTOR) 20 mg tablet Take 1 tablet by mouth once daily. - CPAP/BIPAP/OTHER Type .CPAPSettings into a note to see current settings/supplies/DME information. - pantoprazole DR (PROTONIX) 40 mg tablet Take 1 tablet by mouth once daily. On empty stomach at least 30 minutes before eating. - warfarin (COUMADIN) 10 mg tablet Take 15 mg every Mon, Wed; 12.5 mg all other days or as directed by anticoagulation clinic. (Takes with 5 mg tablets) - warfarin (COUMADIN) 5 mg tablet Take 15 mg every Mon, Wed; 12.5 mg all other days or as directed by anticoagulation clinic. (Takes with 10 mg tablets) - metoprolol succinate ER (TOPROL XL) 50 mg 24 hr tablet Take 1.5 tablets by mouth once daily. - coenzyme Q10 (CO Q-10) 100 mg cap capsule Take 1 capsule by mouth once daily. - enoxaparin (LOVENOX) 120 mg/0.8 mL injection Inject 120 mg subcutaneously. - CPAP/BIPAP/OTHER Continue ASV with current settings of EPAP 5 cm H2O with PS 4-12 cmH2O. Lifetime supplies for ASV, including patient preferred mask, head gear, heated tubing, humidity, filters, chin strap. Dx: Obstructive Sleep Apnea G47.33 DME: ROSEMARIE - aspirin 81 mg chewable tablet Take 1 tablet by mouth once daily. - BIPAP Please service machine, humidifier causing issues. Lifetime supplies G47.33 DOREEN - BIPAP ASV EPAP min 5 cm H20, PS 4-12 cm H20. Mask fitting to consider Dream wear FFM. Provide lifetime supplies including tubing, heated humidity, filters. Dx: G47.33 AND G47.37. - BIPAP Fax 30 day download report to [phone] to assess usage and residual AHI after receipt of replacement ASV. - Melatonin 5 mg tab Take by mouth as needed. - ACETAMINOPHEN (TYLENOL EXTRA STRENGTH ORAL) Take by mout (more content not included)... [facility] CNPNon 12-14-2023 CNPN Telephone (PHAMTE) -- GLENNGEORGIE Orlando ([id number]) 1970 M Date Time Provider Department 12/14/23 ALY JIMÉNEZ During your visit today, we recorded the following information about you: Aly Jiménez [facility] 12/14/2023 4:12 PM Signed [facility] Anticoagulation Clinic Anticoagulation Episode Summary Anticoagulation Care Providers Provider Role Specialty Phone number Saurav Bob MD Referring Internal Medicine [phone] Georgie R Glenn is a 53 year old year old male patient being evaluated today for a Telemanagement visit. Patient is currently on the following anticoagulant(s) Warfarin. Labs PT INR (no units) Date Value 10/04/2023 2.0 07/11/2023 2.8 johanna per pt 01/26/2023 4.8 (self-reporting) INR Home CoaguChek (no units) Date Value 12/14/2023 2.1 11/30/2023 2.5 11/23/2023 2.9 Hemoglobin (g/dL) Date Value 08/03/2023 14.8 08/05/2015 14.6 Hematocrit (%) Date Value 08/03/2023 44.8 08/05/2015 43.7 Platelet Count (k/uL) Date Value 08/03/2023 281 08/05/2015 327 Creatinine (mg/dL) Date Value 08/03/2023 0.85 04/22/2023 0.87 08/19/2022 0.94 08/05/2015 1.09 08/05/2015 1.03 02/17/2015 0.99 Bilirubin, Total (mg/dL) Date Value 08/03/2023 1.3 08/05/2015 0.8 ALT (U/L) Date Value 08/03/2023 26 08/05/2015 34 AST (U/L) Date Value 08/03/2023 21 08/05/2015 23 Estimated Creatinine Clearance: 135.9 mL/min (based on SCr of 0.85 mg/dL). ALLERGIES Allergen Reactions Codeine Mental Status Change Sulfa Drugs [Sulfa * Myalgia Indication for Warfarin: Anticoagulation Episode Summary Current INR goal: 2.5-3.5 Assessment: INR result of 2.1 is SUBtherapeutic due to: No obvious cause (patient denies liver, green tea, new herbal/nutritional supplements - such as Boost, Ensure, an increase in vit K foods and/or V8 type juices, any changes in warfarin tablet, or missed doses) Plan: Current Warfarin Dosing As of 12/14/2023 Full warfarin instructions: 12/13: 15 mg; Otherwise 12.5 mg every Mon, Wed, Fri; 10 mg all other days Called and spoke to patient/caregiver Advised patient to increase dose for 1 day and increase total weekly regimen Next home INR check scheduled on 12/21/2023 Patient verbalizes understanding of the plan. Aly Jiménez [facility] Clinical Pharmacist, Pharmacy Anticoagulation Clinic Pharmacy Anticoagulation Clinic Pager: [phone]. Allergies As of Date: 12/14/2023 Noted Allergy Reaction CODEINE 10/30/2013 1 - Mental Status Change SULFA DRUGS (SULFA (SULFONAMIDE A*04/21/2023 17 - Myalgia Date Reviewed: 10/25/2023 Reviewed by: Guillermo Pedro OCCA - Fully Assessed Reason for Visit: Anticoagulation Telephone Fu [148] Cmt: Home INR result Prescriptions as of 12/14/2023 - rosuvastatin (CRESTOR) 20 mg tablet Take 1 tablet by mouth once daily. - CPAP/BIPAP/OTHER Type .CPAPSettings into a note to see current settings/supplies/DME information. - pantoprazole DR (PROTONIX) 40 mg tablet Take 1 tablet by mouth once daily. On empty stomach at least 30 minutes before eating. - warfarin (COUMADIN) 10 mg tablet Take 15 mg every Mon, Wed; 12.5 mg all other days or as directed by anticoagulation clinic. (Takes with 5 mg tablets) - warfarin (COUMADIN) 5 mg tablet Take 15 mg every Mon, Wed; 12.5 mg all other days or as directed by anticoagulation clinic. (Takes with 10 mg tablets) - metoprolol succinate ER (TOPROL XL) 50 mg 24 hr tablet Take 1.5 tablets by mouth once daily. - coenzyme Q10 (CO Q-10) 100 mg cap capsule Take 1 capsule by mouth once daily. - enoxaparin (LOVENOX) 120 mg/0.8 mL injection Inject 120 mg subcutaneously. - CPAP/BIPAP/OTHER Continue ASV with current settings of EPAP 5 cm H2O with PS 4-12 cmH2O. Lifetime supplies for ASV, including patient preferred mask, head gear, heated tubing, humidity, filters, chin strap. Dx: Obstructive Sleep Apnea G47.33 DME: ROSEMARIE - aspirin 81 mg chewable tablet Take 1 tablet by mouth once daily. - BIPAP Please service machine, humidifier causing issues. Lifetime supplies G47.33 DOREEN - BIPAP ASV EPAP min 5 cm H20, PS 4-12 cm H20. Mask fitting to consider Dream wear FFM. Provide lifetime supplies including tubing, heated humidity, filters. Dx: G47.33 AND G47.37. - BIPAP Fax 30 day download report to [phone] to assess usage and residual AHI after receipt of replacement ASV. - Melatonin 5 mg tab Take by mouth as needed. - ACETAMINOPHEN (TYLENOL EXTRA STRENGTH ORAL) Take by mouth as needed. Facility-Administered Medications as of 12/14/2023 - perflutren lipid microspheres 1.3 mL in NaCl (PF) 0.9% 10 mL injection (DEFINITY) - sodium chloride 0.9 % (flush) 10 mL (BD POSIFLUSH) Problem List As Of Date 12/14/2023 Noted Resolved Pre-op testing [Z01.818] 11/01/2013 11/16/2013 History of cardiomyo (more content not included)... [facility] 11-30-2023 CNPN Telephone (PHARMN) -- GEORGIE ELIZABETH ([id number]) 1970 M Date Time Provider Department 11/30/23 PHARMACIST PHARMN During your visit today, we recorded the following information about you: Shiv ([employer])Nilda 11/30/2023 4:46 PM Signed PATIENT CALL Patient called call center regarding results. Patient called and stated INR result for 11/29 is 2.5 (not currently/yet showing in INR summary below). Patient can be reached at [phone] to discuss. PT INR (no units) Date Value 10/04/2023 2.0 07/11/2023 2.8 johanna per pt 01/26/2023 4.8 (self-reporting) INR Home CoaguChek (no units) Date Value 11/23/2023 2.9 11/09/2023 3.8 11/02/2023 2.0 Nilda Parham ([employer]) Aly Jiménez RPh 11/30/2023 4:56 PM Signed [facility] Anticoagulation Clinic Anticoagulation Episode Summary Anticoagulation Care Providers Provider Role Specialty Phone number Saurav Bob MD Referring Internal Medicine [phone] Georgie Elizabeth is a 53 year old year old male patient being evaluated today for a Telemanagement visit. Patient is currently on the following anticoagulant(s) Warfarin. Labs PT INR (no units) Date Value 10/04/2023 2.0 07/11/2023 2.8 johanna per pt 01/26/2023 4.8 (self-reporting) INR Home CoaguChek (no units) Date Value 11/23/2023 2.9 11/09/2023 3.8 11/02/2023 2.0 Hemoglobin (g/dL) Date Value 08/03/2023 14.8 08/05/2015 14.6 Hematocrit (%) Date Value 08/03/2023 44.8 08/05/2015 43.7 Platelet Count (k/uL) Date Value 08/03/2023 281 08/05/2015 327 Creatinine (mg/dL) Date Value 08/03/2023 0.85 04/22/2023 0.87 08/19/2022 0.94 08/05/2015 1.09 08/05/2015 1.03 02/17/2015 0.99 Bilirubin, Total (mg/dL) Date Value 08/03/2023 1.3 08/05/2015 0.8 ALT (U/L) Date Value 08/03/2023 26 08/05/2015 34 AST (U/L) Date Value 08/03/2023 21 08/05/2015 23 Estimated Creatinine Clearance: 135.9 mL/min (based on SCr of 0.85 mg/dL). ALLERGIES Allergen Reactions Codeine Mental Status Change Sulfa Drugs [Sulfa * Myalgia Indication for Warfarin: Anticoagulation Episode Summary Current INR goal: 2.5-3.5 Assessment: INR result of 2.5 is therapeutic Plan: Current Warfarin Dosing As of 11/30/2023 Full warfarin instructions: 12.5 mg every e, Fri; 10 mg all other days Called and spoke to patient/caregiver Advised patient to continue current weekly dose as noted above Next home INR check scheduled on 12/14/2023 Patient verbalizes understanding of the plan. Aly Jiménez [facility] Clinical Pharmacist, Pharmacy Anticoagulation Clinic Pharmacy Anticoagulation Clinic Pager: [phone]. Allergies As of Date: 11/30/2023 Noted Allergy Reaction CODEINE 10/30/2013 1 - Mental Status Change SULFA DRUGS (SULFA (SULFONAMIDE A*04/21/2023 17 - Myalgia Date Reviewed: 10/25/2023 Reviewed by: Guillermo Pedro OCCA - Fully Assessed Reason for Visit: Anticoagulation [8] Prescriptions as of 11/30/2023 - rosuvastatin (CRESTOR) 20 mg tablet Take 1 tablet by mouth once daily. - CPAP/BIPAP/OTHER Type .CPAPSettings into a note to see current settings/supplies/DME information. - pantoprazole DR (PROTONIX) 40 mg tablet Take 1 tablet by mouth once daily. On empty stomach at least 30 minutes before eating. - warfarin (COUMADIN) 10 mg tablet Take 15 mg every Mon, Wed; 12.5 mg all other days or as directed by anticoagulation clinic. (Takes with 5 mg tablets) - warfarin (COUMADIN) 5 mg tablet Take 15 mg every Wed, Wed; 12.5 mg all other days or as directed by anticoagulation clinic. (Takes with 10 mg tablets) - metoprolol succinate ER (TOPROL XL) 50 mg 24 hr tablet Take 1.5 tablets by mouth once daily. - coenzyme Q10 (CO Q-10) 100 mg cap capsule Take 1 capsule by mouth once daily. - enoxaparin (LOVENOX) 120 mg/0.8 mL injection Inject 120 mg subcutaneously. - CPAP/BIPAP/OTHER Continue ASV with current settings of EPAP 5 cm H2O with PS 4-12 cmH2O. Lifetime supplies for ASV, including patient preferred mask, head gear, heated tubing, humidity, filters, chin strap. Dx: Obstructive Sleep Apnea G47.33 DME: ROSEMARIE - aspirin 81 mg chewable tablet Take 1 tablet by mouth once daily. - BIPAP Please service machine, humidifier causing issues. Lifetime supplies G47.33 DOREEN - BIPAP ASV EPAP min 5 cm H20, PS 4-12 cm H20. Mask fitting to consider Dream wear FFM. Provide lifetime supplies including tubing, heated humidity, filters. Dx: G47.33 AND G47.37. - BIPAP Fax 30 day download report to [phone] to assess usage and residual AHI after receipt of replacement ASV. - Melatonin 5 mg tab Take by mouth as needed. - ACETAMINOPHEN (TYLENOL EXTRA STRENGTH ORAL) Take by mouth as needed. Facility-Administered Medications as of 11/30/2023 - perflutren lipid microspheres 1.3 mL in NaCl (P (more content not included)... 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 - CPAP/BIPAP/OTHER Type .CPAPSettings into a note to see current settings/supplies/DME information. - pantoprazole DR (PROTONIX) 40 mg tablet Take 1 tablet by mouth once daily. On empty stomach at least 30 minutes before eating. - warfarin (COUMADIN) 10 mg tablet Take 15 mg every Mon, Wed; 12.5 mg all other days or as directed by anticoagulation clinic. (Takes with 5 mg tablets) - warfarin (COUMADIN) 5 mg tablet Take 15 mg every Mon, Wed; 12.5 mg all other days or as directed by anticoagulation clinic. (Takes with 10 mg tablets) - metoprolol succinate ER (TOPROL XL) 50 mg 24 hr tablet Take 1.5 tablets by mouth once daily. - coenzyme Q10 (CO Q-10) 100 mg cap capsule Take 1 capsule by mouth once daily. - enoxaparin (LOVENOX) 120 mg/0.8 mL injection Inject 120 mg subcutaneously. - CPAP/BIPAP/OTHER Continue ASV with current settings of EPAP 5 cm H2O with PS 4-12 cmH2O. Lifetime supplies for ASV, including patient preferred mask, head gear, heated tubing, humidity, filters, chin strap. Dx: Obstructive Sleep Apnea G47.33 DME: [facility] - aspirin 81 mg chewable tablet Take 1 tablet by mouth once daily. - BIPAP Please service machine, humidifier causing issues. Lifetime supplies G47.33 DOREEN - BIPAP ASV EPAP min 5 cm H20, PS 4-12 cm H20. Mask fitting to consider Dream wear FFM. Provide lifetime supplies including tubing, heated humidity, filters. Dx: G47.33 AND G47.37. - BIPAP Fax 30 day download report to [phone] to assess usage and residual AHI after receipt of replacement ASV. - Melatonin 5 mg tab Take by mouth as needed. - ACETAMINOPHEN (TYLENOL EXTRA STRENGTH ORAL) Take by mouth as needed. Facility-Administered Medications as of 11/25/2023 - perflutren lipid microspheres 1.3 mL in NaCl (PF) 0.9% 10 mL injection (DEFINITY) - sodium chloride 0.9 % (flush) 10 mL (BD POSIFLUSH) [facility] (PHAMTE) -- GEORGIE ELIZABETH ([id number]) 1970 M Date Time Provider Department 11/23/23 ALY JIMÉNEZ During your visit today, we recorded the following information about you: Aly Jiménez [facility] 11/23/2023 4:28 PM Signed [facility] Anticoagulation Clinic Anticoagulation Episode Summary Anticoagulation Care Providers Provider Role Specialty Phone number Saurav Bob MD Referring Internal Medicine [phone] Georgie Elizabeth is a 53 year old year old male patient being evaluated today for a Telemanagement visit. Patient is currently on the following anticoagulant(s) Warfarin. Labs PT INR (no units) Date Value 10/04/2023 2.0 07/11/2023 2.8 johanna per pt 01/26/2023 4.8 (self-reporting) INR Home CoaguChek (no units) Date Value 11/23/2023 2.9 11/09/2023 3.8 11/02/2023 2.0 Hemoglobin (g/dL) Date Value 08/03/2023 14.8 08/05/2015 14.6 Hematocrit (%) Date Value 08/03/2023 44.8 08/05/2015 43.7 Platelet Count (k/uL) Date Value 08/03/2023 281 08/05/2015 327 Creatinine (mg/dL) Date Value 08/03/2023 0.85 04/22/2023 0.87 08/19/2022 0.94 08/05/2015 1.09 08/05/2015 1.03 02/17/2015 0.99 Bilirubin, Total (mg/dL) Date Value 08/03/2023 1.3 08/05/2015 0.8 ALT (U/L) Date Value 08/03/2023 26 08/05/2015 34 AST (U/L) Date Value 08/03/2023 21 08/05/2015 23 Estimated Creatinine Clearance: 135.9 mL/min (based on SCr of 0.85 mg/dL). ALLERGIES Allergen Reactions Codeine Mental Status Change Sulfa Drugs [Sulfa * Myalgia Indication for Warfarin: Anticoagulation Episode Summary Current INR goal: 2.5-3.5 Assessment: INR result of 2.9 is therapeutic Plan: Current Warfarin Dosing As of 11/23/2023 Full warfarin instructions: 12.5 mg every Tue, Fri; 10 mg all other days Called and spoke to patient/caregiver Advised patient to continue current weekly dose as noted above Next home INR check scheduled on 11/30/2023 Patient verbalizes understanding of the plan. Aly Jiménez RPh Clinical Pharmacist, Pharmacy Anticoagulation Clinic Pharmacy Anticoagulation Clinic Pager: [phone]. Aly Jiménez RPh 11/30/2023 4:37 PM Signed Patient was due to test INR today. Will continue to monitor for results. Follow up in one week if no results received. Aly Jiménez RPh Allergies As of Date: 11/23/2023 Noted Allergy Reaction CODEINE 10/30/2013 1 - Mental Status Change SULFA DRUGS (SULFA (SULFONAMIDE A*04/21/2023 17 - Myalgia Date Reviewed: 10/25/2023 Reviewed by: Guillermo Pedro OCCA - Fully Assessed Reason for Visit: Anticoagulation Telephone Fu [148] Prescriptions as of 11/30/2023 - rosuvastatin (CRESTOR) 20 mg tablet Take 1 tablet by mouth once daily. - CPAP/BIPAP/OTHER Type .CPAPSettings into a note to see current settings/supplies/DME information. - pantoprazole DR (PROTONIX) 40 mg tablet Take 1 tablet by mouth once daily. On empty stomach at least 30 minutes before eating. - warfarin (COUMADIN) 10 mg tablet Take 15 mg every Mon, Wed; 12.5 mg all other days or as directed by anticoagulation clinic. (Takes with 5 mg tablets) - warfarin (COUMADIN) 5 mg tablet Take 15 mg every Wed, Wed; 12.5 mg all other days or as directed by anticoagulation clinic. (Takes with 10 mg tablets) - metoprolol succinate ER (TOPROL XL) 50 mg 24 hr tablet Take 1.5 tablets by mouth once daily. - coenzyme Q10 (CO Q-10) 100 mg cap capsule Take 1 capsule by mouth once daily. - enoxaparin (LOVENOX) 120 mg/0.8 mL injection Inject 120 mg subcutaneously. - CPAP/BIPAP/OTHER Continue ASV with current settings of EPAP 5 cm H2O with PS 4-12 cmH2O. Lifetime supplies for ASV, including patient preferred mask, head gear, heated tubing, humidity, filters, chin strap. Dx: Obstructive Sleep Apnea G47.33 DME: [facility] - aspirin 81 mg chewable tablet Take 1 tablet by mouth once daily. - BIPAP Please service machine, humidifier causing issues. Lifetime supplies G47.33 DOREEN - BIPAP ASV EPAP min 5 cm H20, PS 4-12 cm H20. Mask fitting to consider Dream wear FFM. Provide lifetime supplies including tubing, heated humidity, filters. Dx: G47.33 AND G47.37. - BIPAP Fax 30 day download report to [phone] to assess usage and residual AHI after receipt of replacement ASV. - Melatonin 5 mg tab Take by mouth as needed. - ACETAMINOPHEN (TYLENOL EXTRA STRENGTH ORAL) Take by mouth as needed. Facility-Administered Medications as of 11/30/2023 - perflutren lipid microspheres 1.3 mL in NaCl (PF) 0.9% 10 mL injection (DEFINITY) - sodium chloride 0.9 % (flush) 10 mL (BD POSIFLUSH) Problem List As Of Date 11/23/2023 Noted Resolved Pre-op testing [Z01.818] 11/01/2013 11/16/2013 History of cardiomyopathy [Z86.79] 11/01/2013 Mitral valve regurgitation [I34.0] 11/01/2013 11/16/2013 Cardiac insufficienc (more content not included)... [facility] CNPNon 11-16-2023 CNPN Telephone (PHARMN) -- GEORGIE ELIZABETH ([id number]) 1970 M Date Time Provider Department 11/16/23 PHARMACIST PHARMN During your visit today, we recorded the following information about you: Allergies As of Date: 11/16/2023 Noted Allergy Reaction CODEINE 10/30/2013 1 - Mental Status Change SULFA DRUGS (SULFA (SULFONAMIDE A*04/21/2023 17 - Myalgia Date Reviewed: 10/25/2023 Reviewed by: Guillermo Pedro OCCA - Fully Assessed Prescriptions as of 05/24/2024 - metoprolol succinate ER (TOPROL XL) 50 mg 24 hr tablet Take 1 tablet by mouth once daily. - dicyclomine (BENTYL) 10 mg capsule Take 1 capsule by mouth three times a day as needed (for abdominal pain). - pantoprazole DR (PROTONIX) 40 mg tablet Take 1 tablet by mouth once daily. On empty stomach at least 30 minutes before eating. - coenzyme Q10 (CO Q-10) 100 mg cap capsule Take 1 capsule by mouth once daily. - warfarin (COUMADIN) 10 mg tablet Take 15 mg every Mon, Wed; 12.5 mg all other days or as directed by anticoagulation clinic. (Takes with 5 mg tablets) - warfarin (COUMADIN) 5 mg tablet Take 15 mg every Mon, Wed; 12.5 mg all other days or as directed by anticoagulation clinic. (Takes with 10 mg tablets) - rosuvastatin (CRESTOR) 20 mg tablet Take 1 tablet by mouth once daily. - CPAP/BIPAP/OTHER Type .CPAPSettings into a note to see current settings/supplies/DME information. - enoxaparin (LOVENOX) 120 mg/0.8 mL injection Inject 120 mg subcutaneously. - CPAP/BIPAP/OTHER Continue ASV with current settings of EPAP 5 cm H2O with PS 4-12 cmH2O. Lifetime supplies for ASV, including patient preferred mask, head gear, heated tubing, humidity, filters, chin strap. Dx: Obstructive Sleep Apnea G47.33 DME: [facility] - aspirin 81 mg chewable tablet Take 1 tablet by mouth once daily. - Melatonin 5 mg tab Take by mouth as needed. - ACETAMINOPHEN (TYLENOL EXTRA STRENGTH ORAL) Take by mouth as needed. Problem List As Of Date 11/16/2023 Noted Resolved Pre-op testing [Z01.818] 11/01/2013 11/16/2013 History of cardiomyopathy [Z86.79] 11/01/2013 Mitral valve regurgitation [I34.0] 11/01/2013 11/16/2013 Cardiac insufficiency (HCC) [I50.9] 11/13/2013 11/14/2013 Stress hyperglycemia [R73.9] 11/13/2013 11/16/2013 Postoperative pain [G89.18] 11/13/2013 11/22/2013 LBBB [I44.7] 11/13/2013 Hypotension [I95.9] 11/13/2013 11/16/2013 Atelectasis [J98.11] 11/15/2013 04/29/2020 Fluid overload [E87.70] 11/15/2013 11/16/2013 Central sleep apnea treated with adaptive servo*11/15/2013 Urethral stricture [N35.919] 11/15/2013 11/16/2013 SUMMARY [V999.95] 11/16/2013 04/29/2020 Hypertension [I10] 11/16/2013 Pericardial effusion [I31.39] 11/17/2013 11/22/2013 Hypovolemia [E86.1] 11/20/2013 11/22/2013 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9] 12/22/2022 Diagnosed: 12/22/2022 Hyperbilirubinemia [E80.6] 12/22/2022 Diagnosed: 12/22/2022 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] 11/10/2022 Adenomatous colon polyp [D12.6] 01/08/2022 DOREEN (obstructive sleep apnea) [G47.33] 08/03/2023 Incomplete bladder emptying [R33.9] 10/11/2023 History of urethral stricture [Z87.448] 10/25/2023 Encounter Status:Closed by SHIV (MANAGER [employer]MIN[employer])NILDA on 05/24/24 [facility] MANDYN Telephone (PHARMN) -- GEORGIE ELIZABETH ([id number]) 1970 M Date Time Provider Department 11/16/23 PHARMACIST PHARMN During your visit today, we recorded the following information about you: Shiv ([employer])Nilda 11/16/2023 4:36 PM Signed PATIENT CALL Patient called call center regarding message/result. Patient called and stated INR result for 11/15 is 1.6 (not currently/yet showing in INR summary below). He also stated he missed yesterday morning's dose of warfarin but took it today when he took today's warfarin. Patient can be reached at [phone] to discuss. PT INR (no units) Date Value 10/04/2023 2.0 07/11/2023 2.8 johanna per pt 01/26/2023 4.8 (self-reporting) INR Home CoaguChek (no units) Date Value 11/09/2023 3.8 11/02/2023 2.0 10/25/2023 4.9 Nilda Parham ([employer]) Aly Jiménez [facility] 11/16/2023 4:45 PM Signed [facility] Pharm[facility] Anticoagulation Clinic Anticoagulation Episode Summary Anticoagulation Care Providers Provider Role Specialty Phone number Saurav Bob MD Referring Internal Medicine [phone] Georgie Elizabeth is a 53 year old year old male patient being evaluated today for a Telemanagement visit. Patient is currently on the following anticoagulant(s) Warfarin. Labs PT INR (no units) Date Value 10/04/2023 2.0 07/11/2023 2.8 johanna per pt 01/26/2023 4.8 (self-reporting) INR Home CoaguChek (no units) Date Value 11/09/2023 3.8 11/02/2023 2.0 10/25/2023 4.9 Hemoglobin (g/dL) Date Value 08/03/2023 14.8 08/05/2015 14.6 Hematocrit (%) Date Value 08/03/2023 44.8 08/05/2015 43.7 Platelet Count (k/uL) Date Value 08/03/2023 281 08/05/2015 327 Creatinine (mg/dL) Date Value 08/03/2023 0.85 04/22/2023 0.87 08/19/2022 0.94 08/05/2015 1.09 08/05/2015 1.03 02/17/2015 0.99 Bilirubin, Total (mg/dL) Date Value 08/03/2023 1.3 08/05/2015 0.8 ALT (U/L) Date Value 08/03/2023 26 08/05/2015 34 AST (U/L) Date Value 08/03/2023 21 08/05/2015 23 Estimated Creatinine Clearance: 135.9 mL/min (based on SCr of 0.85 mg/dL). ALLERGIES Allergen Reactions Codeine Mental Status Change Sulfa Drugs [Sulfa * Myalgia Indication for Warfarin: Anticoagulation Episode Summary Current INR goal: 2.5-3.5 Assessment: INR result of 1.6 is SUBtherapeutic due to: No obvious cause (patient denies liver, green tea, new herbal/nutritional supplements - such as Boost, Ensure, an increase in vit K foods and/or V8 type juices, any changes in warfarin tablet, or missed doses) Plan: Current Warfarin Dosing As of 11/16/2023 Full warfarin instructions: 11/15: 22.5 mg; 11/19: 12.5 mg; Otherwise 12.5 mg every e, Wed; 10 mg all other days Called and spoke to patient/caregiver Advised patient to take warfarin as noted above Next home INR check scheduled on 11/22/2023 Patient verbalizes understanding of the plan. Aly Jiménez [facility] Clinical Pharmacist, Pharmacy Anticoagulation Clinic Pharmacy Anticoagulation Clinic Pager: [phone]. Lana Poole RPh 11/22/2023 3:07 PM Signed Patient was due to test INR today. Will continue to monitor for results. Will follow up in one week if no results received. Allergies As of Date: 11/16/2023 Noted Allergy Reaction CODEINE 10/30/2013 1 - Mental Status Change SULFA DRUGS (SULFA (SULFONAMIDE A*04/21/2023 17 - Myalgia Date Reviewed: 10/25/2023 Reviewed by: Guillermo Pedro OCCA - Fully Assessed Reason for Visit: Anticoagulation [8] Prescriptions as of 11/22/2023 - rosuvastatin (CRESTOR) 20 mg tablet Take 1 tablet by mouth once daily. - CPAP/BIPAP/OTHER Type .CPAPSettings into a note to see current settings/supplies/DME information. - pantoprazole DR (PROTONIX) 40 mg tablet Take 1 tablet by mouth once daily. On empty stomach at least 30 minutes before eating. - warfarin (COUMADIN) 10 mg tablet Take 15 mg every Wed, Wed; 12.5 mg all other days or as directed by anticoagulation clinic. (Takes with 5 mg tablets) - warfarin (COUMADIN) 5 mg tablet Take 15 mg every Wed, Wed; 12.5 mg all other days or as directed by anticoagulation clinic. (Takes with 10 mg tablets) - metoprolol succinate ER (TOPROL XL) 50 mg 24 hr tablet Take 1.5 tablets by mouth once daily. - coenzyme Q10 (CO Q-10) 100 mg cap capsule Take 1 capsule by mouth once daily. - enoxaparin (LOVENOX) 120 mg/0.8 mL injection Inject 120 mg subcutaneously. - CPAP/BIPAP/OTHER Continue ASV with current settings of EPAP 5 cm H2O with PS 4-12 cmH2O. Lifetime supplies for ASV, including patient preferred mask, head gear, heated tubing, humidity, filters, chin strap. Dx: Obstructive Sleep Apnea G47.33 DME: [facility] - aspirin 81 mg chewable tablet Take 1 tablet by mouth once daily. - BIPAP Please service machine, humidifier causing issues. Lifetime supplies G47 (more content not included)... [facility] GEORGIE ELIZABETH ([id number]) 1970 M Date Time Provider Department 11/09/23 ALY JIMÉNEZ During your visit today, we recorded the following information about you: Aly Jiménez [facility] 11/09/2023 4:40 PM Signed [facility] Pharm[facility] Anticoagulation Clinic Anticoagulation Episode Summary Anticoagulation Care Providers Provider Role Specialty Phone number Saurav Bob MD Referring Internal Medicine [phone] Georgie Elizabeth is a 53 year old year old male patient being evaluated today for a Telemanagement visit. Patient is currently on the following anticoagulant(s) Warfarin. Labs PT INR (no units) Date Value 10/04/2023 2.0 07/11/2023 2.8 johanna per pt 01/26/2023 4.8 (self-reporting) INR Home CoaguChek (no units) Date Value 11/09/2023 3.8 11/02/2023 2.0 10/25/2023 4.9 Hemoglobin (g/dL) Date Value 08/03/2023 14.8 08/05/2015 14.6 Hematocrit (%) Date Value 08/03/2023 44.8 08/05/2015 43.7 Platelet Count (k/uL) Date Value 08/03/2023 281 08/05/2015 327 Creatinine (mg/dL) Date Value 08/03/2023 0.85 04/22/2023 0.87 08/19/2022 0.94 08/05/2015 1.09 08/05/2015 1.03 02/17/2015 0.99 Bilirubin, Total (mg/dL) Date Value 08/03/2023 1.3 08/05/2015 0.8 ALT (U/L) Date Value 08/03/2023 26 08/05/2015 34 AST (U/L) Date Value 08/03/2023 21 08/05/2015 23 Estimated Creatinine Clearance: 135.9 mL/min (based on SCr of 0.85 mg/dL). ALLERGIES Allergen Reactions Codeine Mental Status Change Sulfa Drugs [Sulfa * Myalgia Indication for Warfarin: Anticoagulation Episode Summary Current INR goal: 2.5-3.5 Assessment: INR result of 3.8 is SUPRAtherapeutic due to: Patient taking incorrect warfarin dose or extra dose(s) Plan: Current Warfarin Dosing As of 11/09/2023 Full warfarin instructions: 11/08: 7.5 mg; Otherwise 12.5 mg every Tue, Fri; 10 mg all other days Called and spoke to patient/caregiver Advised patient to decrease dose for 1 day only then resume weekly regimen Next home INR check scheduled on 11/16/2023 Patient verbalizes understanding of the plan. Aly Jiménez [facility] Clinical Pharmacist, Pharmacy Anticoagulation Clinic Pharmacy Anticoagulation Clinic Pager: [phone]. Allergies As of Date: 11/09/2023 Noted Allergy Reaction CODEINE 10/30/2013 1 - Mental Status Change SULFA DRUGS (SULFA (SULFONAMIDE A*04/21/2023 17 - Myalgia Date Reviewed: 10/25/2023 Reviewed by: Guillermo Pedro OCCA - Fully Assessed Reason for Visit: Anticoagulation Telephone Fu [148] Prescriptions as of 11/16/2023 - rosuvastatin (CRESTOR) 20 mg tablet Take 1 tablet by mouth once daily. - CPAP/BIPAP/OTHER Type .CPAPSettings into a note to see current settings/supplies/DME information. - pantoprazole DR (PROTONIX) 40 mg tablet Take 1 tablet by mouth once daily. On empty stomach at least 30 minutes before eating. - warfarin (COUMADIN) 10 mg tablet Take 15 mg every Mon, Wed; 12.5 mg all other days or as directed by anticoagulation clinic. (Takes with 5 mg tablets) - warfarin (COUMADIN) 5 mg tablet Take 15 mg every Mon, Wed; 12.5 mg all other days or as directed by anticoagulation clinic. (Takes with 10 mg tablets) - metoprolol succinate ER (TOPROL XL) 50 mg 24 hr tablet Take 1.5 tablets by mouth once daily. - coenzyme Q10 (CO Q-10) 100 mg cap capsule Take 1 capsule by mouth once daily. - enoxaparin (LOVENOX) 120 mg/0.8 mL injection Inject 120 mg subcutaneously. - CPAP/BIPAP/OTHER Continue ASV with current settings of EPAP 5 cm H2O with PS 4-12 cmH2O. Lifetime supplies for ASV, including patient preferred mask, head gear, heated tubing, humidity, filters, chin strap. Dx: Obstructive Sleep Apnea G47.33 DME: [facility] - aspirin 81 mg chewable tablet Take 1 tablet by mouth once daily. - BIPAP Please service machine, humidifier causing issues. Lifetime supplies G47.33 DOREEN - BIPAP ASV EPAP min 5 cm H20, PS 4-12 cm H20. Mask fitting to consider Dream wear [facility]FM. Provide lifetime supplies including tubing, heated humidity, filters. Dx: G47.33 AND G47.37. - BIPAP Fax 30 day download report to [phone] to assess usage and residual AHI after receipt of replacement ASV. - Melatonin 5 mg tab Take by mouth as needed. - ACETAMINOPHEN (TYLENOL EXTRA STRENGTH ORAL) Take by mouth as needed. Facility-Administered Medications as of 11/16/2023 - perflutren lipid microspheres 1.3 mL in NaCl (PF) 0.9% 10 mL injection (DEFINITY) - sodium chloride 0.9 % (flush) 10 mL (BD POSIFLUSH) Problem List As Of Date 11/09/2023 Noted Resolved Pre-op testing [Z01.818] 11/01/2013 11/16/2013 History of cardiomyopathy [Z86.79] 11/01/2013 Mitral valve regurgitation [I34.0] 11/01/2013 11/16/2013 Cardiac insufficiency (HCC) [I50.9] 11/13/2013 11/14/2013 Stress hyperglycemia [R73.9] 11/13/2013 (more content not included)... [facility] CNPNon 11-02-2023 CNPN Telephone (PHAMTE) -- GEORGIE ELIZABETH ([id number]) 1970 M Date Time Provider Department 11/02/23 ALY JIMÉNEZ [place] During your visit today, we recorded the following information about you: Aly Jiménez [facility] 11/02/2023 3:54 PM Signed [facility] Pharm[facility] Anticoagulation Clinic Anticoagulation Episode Summary Anticoagulation Care Providers Provider Role Specialty Phone number Saurav Bob MD Referring Internal Medicine [phone] Georgie R Glenn is a 53 year old year old male patient being evaluated today for a Telemanagement visit. Patient is currently on the following anticoagulant(s) Warfarin. Labs PT INR (no units) Date Value 10/04/2023 2.0 07/11/2023 2.8 johanna per pt 01/26/2023 4.8 (self-reporting) INR Home CoaguChek (no units) Date Value 11/02/2023 2.0 10/25/2023 4.9 10/18/2023 3.9 Hemoglobin (g/dL) Date Value 08/03/2023 14.8 08/05/2015 14.6 Hematocrit (%) Date Value 08/03/2023 44.8 08/05/2015 43.7 Platelet Count (k/uL) Date Value 08/03/2023 281 08/05/2015 327 Creatinine (mg/dL) Date Value 08/03/2023 0.85 04/22/2023 0.87 08/19/2022 0.94 08/05/2015 1.09 08/05/2015 1.03 02/17/2015 0.99 Bilirubin, Total (mg/dL) Date Value 08/03/2023 1.3 08/05/2015 0.8 ALT (U/L) Date Value 08/03/2023 26 08/05/2015 34 AST (U/L) Date Value 08/03/2023 21 08/05/2015 23 Estimated Creatinine Clearance: 135.9 mL/min (based on SCr of 0.85 mg/dL). ALLERGIES Allergen Reactions Codeine Mental Status Change Sulfa Drugs [Sulfa * Myalgia Indication for Warfarin: Anticoagulation Episode Summary Current INR goal: 2.5-3.5 Assessment: INR result of 2.0 is SUBtherapeutic due to: No obvious cause (patient denies liver, green tea, new herbal/nutritional supplements - such as Boost, Ensure, an increase in vit K foods and/or V8 type juices, any changes in warfarin tablet, or missed doses) Plan: Current Warfarin Dosing As of 11/02/2023 Full warfarin instructions: 12.5 mg every Tue, Fri; 10 mg all other days Called and spoke to patient/caregiver Advised patient to increase total weekly regimen Next home INR check scheduled on 11/09/2023 Patient verbalizes understanding of the plan. Aly Jiménez [facility] Clinical Pharmacist, Pharmacy Anticoagulation Clinic Pharmacy Anticoagulation Clinic Pager: [phone]. Allergies As of Date: 11/02/2023 Noted Allergy Reaction CODEINE 10/30/2013 1 - Mental Status Change SULFA DRUGS (SULFA (SULFONAMIDE A*04/21/2023 17 - Myalgia Date Reviewed: 10/25/2023 Reviewed by: Guillermo Pedro OCCA - Fully Assessed Reason for Visit: Anticoagulation Telephone Fu [148] Cmt: Home INR result Prescriptions as of 11/09/2023 - rosuvastatin (CRESTOR) 20 mg tablet Take 1 tablet by mouth once daily. - CPAP/BIPAP/OTHER Type .CPAPSettings into a note to see current settings/supplies/DME information. - pantoprazole DR (PROTONIX) 40 mg tablet Take 1 tablet by mouth once daily. On empty stomach at least 30 minutes before eating. - warfarin (COUMADIN) 10 mg tablet Take 15 mg every Mon, Wed; 12.5 mg all other days or as directed by anticoagulation clinic. (Takes with 5 mg tablets) - warfarin (COUMADIN) 5 mg tablet Take 15 mg every Mon, Wed; 12.5 mg all other days or as directed by anticoagulation clinic. (Takes with 10 mg tablets) - metoprolol succinate ER (TOPROL XL) 50 mg 24 hr tablet Take 1.5 tablets by mouth once daily. - coenzyme Q10 (CO Q-10) 100 mg cap capsule Take 1 capsule by mouth once daily. - enoxaparin (LOVENOX) 120 mg/0.8 mL injection Inject 120 mg subcutaneously. - CPAP/BIPAP/OTHER Continue ASV with current settings of EPAP 5 cm H2O with PS 4-12 cmH2O. Lifetime supplies for ASV, including patient preferred mask, head gear, heated tubing, humidity, filters, chin strap. Dx: Obstructive Sleep Apnea G47.33 DME: [facility] - aspirin 81 mg chewable tablet Take 1 tablet by mouth once daily. - BIPAP Please service machine, humidifier causing issues. Lifetime supplies G47.33 DOREEN - BIPAP ASV EPAP min 5 cm H20, PS 4-12 cm H20. Mask fitting to consider Dream wear FFM. Provide lifetime supplies including tubing, heated humidity, filters. Dx: G47.33 AND G47.37. - BIPAP Fax 30 day download report to [phone] to assess usage and residual AHI after receipt of replacement ASV. - Melatonin 5 mg tab Take by mouth as needed. - ACETAMINOPHEN (TYLENOL EXTRA STRENGTH ORAL) Take by mouth as needed. Facility-Administered Medications as of 11/09/2023 - perflutren lipid microspheres 1.3 mL in NaCl (PF) 0.9% 10 mL injection (DEFINITY) - sodium chloride 0.9 % (flush) 10 mL (BD POSIFLUSH) Problem List As Of Date 11/02/2023 Noted Resolved Pre-op testing [Z01.818] 11/01/2013 11/16/2013 History of cardiomyopathy [Z86.79] 11/01/2013 Mitral valve regurgitation [I34.0] (more content not included)... [facility] CNPNon 10-26-2023 CNPN Telephone (PHAMTE) -- GEORGIE ELIZABETH ([id number]) 1970 M Date Time Provider Department 10/26/23 ALY JIMÉNEZ During your visit today, we recorded the following information about you: Aly Jiménez [facility] 10/26/2023 8:16 AM Signed [facility] Ambulatory Pharmacy Anticoagulation Clinic Anticoagulation Episode Summary Anticoagulation Care Providers Provider Role Specialty Phone number Saurav Bob MD Referring Internal Medicine [phone] Georgie Elizabeth is a 53 year old year old male patient being evaluated today for a Telemanagement visit. Patient is currently on the following anticoagulant(s) Warfarin. Labs PT INR (no units) Date Value 10/04/2023 2.0 07/11/2023 2.8 johanna per pt 01/26/2023 4.8 (self-reporting) INR Home CoaguChek (no units) Date Value 10/25/2023 4.9 10/18/2023 3.9 10/10/2023 4.9 Hemoglobin (g/dL) Date Value 08/03/2023 14.8 08/05/2015 14.6 Hematocrit (%) Date Value 08/03/2023 44.8 08/05/2015 43.7 Platelet Count (k/uL) Date Value 08/03/2023 281 08/05/2015 327 Creatinine (mg/dL) Date Value 08/03/2023 0.85 04/22/2023 0.87 08/19/2022 0.94 08/05/2015 1.09 08/05/2015 1.03 02/17/2015 0.99 Bilirubin, Total (mg/dL) Date Value 08/03/2023 1.3 08/05/2015 0.8 ALT (U/L) Date Value 08/03/2023 26 08/05/2015 34 AST (U/L) Date Value 08/03/2023 21 08/05/2015 23 Estimated Creatinine Clearance: 135.9 mL/min (based on SCr of 0.85 mg/dL). ALLERGIES Allergen Reactions Codeine Mental Status Change Sulfa Drugs [Sulfa * Myalgia Indication for Warfarin: Anticoagulation Episode Summary Current INR goal: 2.5-3.5 Assessment: INR result of 4.9 is SUPRAtherapeutic due to: Medication change or drug interaction Plan: Current Warfarin Dosing As of 10/26/2023 Full warfarin instructions: 7.5 mg every Martha; 10 mg all other days Called and spoke to patient/caregiver Advised patient to hold 1 dose then decrease current regimen Next home INR check scheduled on 11/02/2023 Patient verbalizes understanding of the plan. Aly Jiménez RPh Clinical Pharmacist, Pharmacy Anticoagulation Clinic Pharmacy Anticoagulation Clinic Pager: [phone]. Aly Jiménez RPh 11/02/2023 3:01 PM Signed Georgie Elizabeth was called and reminded to test INR today or as soon as possible. Aly Jiménez RPh Allergies As of Date: 10/26/2023 Noted Allergy Reaction CODEINE 10/30/2013 1 - Mental Status Change SULFA DRUGS (SULFA (SULFONAMIDE A*04/21/2023 17 - Myalgia Date Reviewed: 10/25/2023 Reviewed by: Guillermo Pedro OCCA - Fully Assessed Reason for Visit: Anticoagulation Telephone Fu [148] Cmt: Home INR result Prescriptions as of 11/02/2023 - rosuvastatin (CRESTOR) 20 mg tablet Take 1 tablet by mouth once daily. - CPAP/BIPAP/OTHER Type .CPAPSettings into a note to see current settings/supplies/DME information. - pantoprazole DR (PROTONIX) 40 mg tablet Take 1 tablet by mouth once daily. On empty stomach at least 30 minutes before eating. - warfarin (COUMADIN) 10 mg tablet Take 15 mg every Mon, Wed; 12.5 mg all other days or as directed by anticoagulation clinic. (Takes with 5 mg tablets) - warfarin (COUMADIN) 5 mg tablet Take 15 mg every Mon, Wed; 12.5 mg all other days or as directed by anticoagulation clinic. (Takes with 10 mg tablets) - metoprolol succinate ER (TOPROL XL) 50 mg 24 hr tablet Take 1.5 tablets by mouth once daily. - coenzyme Q10 (CO Q-10) 100 mg cap capsule Take 1 capsule by mouth once daily. - enoxaparin (LOVENOX) 120 mg/0.8 mL injection Inject 120 mg subcutaneously. - CPAP/BIPAP/OTHER Continue ASV with current settings of EPAP 5 cm H2O with PS 4-12 cmH2O. Lifetime supplies for ASV, including patient preferred mask, head gear, heated tubing, humidity, filters, chin strap. Dx: Obstructive Sleep Apnea G47.33 DME: ROSEMARIE - aspirin 81 mg chewable tablet Take 1 tablet by mouth once daily. - BIPAP Please service machine, humidifier causing issues. Lifetime supplies G47.33 DOREEN - BIPAP ASV EPAP min 5 cm H20, PS 4-12 cm H20. Mask fitting to consider Dream wear FFM. Provide lifetime supplies including tubing, heated humidity, filters. Dx: G47.33 AND G47.37. - BIPAP Fax 30 day download report to [phone] to assess usage and residual AHI after receipt of replacement ASV. - Melatonin 5 mg tab Take by mouth as needed. - ACETAMINOPHEN (TYLENOL EXTRA STRENGTH ORAL) Take by mouth as needed. Facility-Administered Medications as of 11/02/2023 - perflutren lipid microspheres 1.3 mL in NaCl (PF) 0.9% 10 mL injection (DEFINITY) - sodium chloride 0.9 % (flush) 10 mL (BD POSIFLUSH) Problem List As Of Date 10/26/2023 Noted Resolved Pre-op testing [Z01.818] 11/01/2013 11/16/2013 History of cardiomyopathy [Z86.79] 11/01/2013 Mitral valve regurgitation [I34.0] 11/01/2013 (more content not included)... [facility] CNOVon 10-25-2023 CNOV Office Visit (UROLMN ) -- GEORGIE ELIZABETH ([id number]) 1970 M Date Time Provider Department 10/25/23 9:30 AM RAMÓN SILVA During your visit today, we recorded the following information about you: Weight Height 108.8 kg 1.93 m Ramón Silva MD 10/25/2023 10:17 AM Signed HPI: eva Elizabeth is a 53 year old male with a history of mechanical mitral valve on Coumadin and urethral stricture s/p ventral onlay BMG urethroplasty in 2014 , seen 02/01/23 at time of cystoscopy notable for mild annular stenosis at distal and proximal aspects of repair that accepted the scope. Last seen 10/11/23 Since last evaluation notes has had a few urinary infections, 1 in April but a subsequent infection in August that progressed to bacterial prostatitis (irritative LUTS, fever/chills) currently on Cipro,for a course of 4 weeks. Feels symptoms almost resolved, but still has dysuria , stream is all right and felt like he was emptying, voiding at reasonable time intervals. Hydrating well, no constipation. Denies gross hematuria. He tried 1 dose of Flomax however felt sick with flu like symptoms the next day and had to stop it On no urinary meds. No DM or immunosuppressive meds. Cysto: [id number] occlusive lateral prostate lobes Last urine Cx 09/30 Multisensitive Ecoli Uroflow Today: Volume 616 ml PFR: 20.2 ml/s Voiding time 43 s Time to F 16.5 s Average Flow rate 14.4 ml PVR 200 cc Interpretation: Large voided volume, normal flow rate, elevated residual urine but improved from prior. Salazar-shaped curve. 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 [phone] Depression with anxiety obsessive compulsive disorder Gout 12/22/2022 HTN (hypertension) Hyperbilirubinemia 12/22/2022 Hyperlipemia Hypertension 11/16/2013 -cont home meds Hypertrophic obstructive cardiomyopathy (HCC) 2012 s/p myectomy Mitral stenosis 2012 s/p re-do MVR with mechanical valve 11/13/13 Nephrolithiasis 2017 Obstructive sleep apnea 2011 Urethral stricture PAST SURGICAL HISTORY Procedure Laterality Date ADENOIDECTOMY HX 05/03/1986 COLONOSCOPY 05/03/2011 COLONOSCOPY SCREENING 01/08/2022 EGD DIAGNOSTIC 11/10/2022 PAST SURGICAL HISTORY OF 01/23/2013 mitral valve repair, #32 Valerie ring, ligation of left atrial appendage PAST SURGICAL HISTORY OF 11/13/2013 Myectomy and MVr with de leon band and valvuloplasty. PAST SURGICAL HISTORY OF 11/20/2013 redo sternotomy MVR with mechanical ON X valve (27/29 mm). PAST SURGICAL HISTORY OF 01/29/2015 BMG Urethroplasty TONSILLECTOMY HX 05/03/1986 Social History Tobacco Use Smoking status: Never Smokeless tobacco: Never Vaping Use Vaping Use: Never used Substance Use Topics Alcohol use: No Comment: rarely Drug use: Never Current Outpatient Medications on File Prior to Visit Medication Sig tamsulosin (FLOMAX) 0.4 mg Take 1 capsule by mouth daily at bedtime. rosuvastatin (CRESTOR) 20 mg tablet Take 1 tablet by mouth once daily. CPAP/BIPAP/OTHER Type .CPAPSettings into a note to see current settings/supplies/DME information. pantoprazole DR (PROTONIX) 40 mg tablet Take 1 tablet by mouth once daily. On empty stomach at least 30 minutes before eating. warfarin (COUMADIN) 10 mg tablet Take 15 mg every Mon, Wed; 12.5 mg all other days or as directed by anticoagulation clinic. (Takes with 5 mg tablets) warfarin (COUMADIN) 5 mg tablet Take 15 mg every Mon, Wed; 12.5 mg all other days or as directed by anticoagulation clinic. (Takes with 10 mg tablets) metoprolol succinate ER (TOPROL XL) 50 mg 24 hr tablet Take 1.5 tablets by mouth once daily. coenzyme Q10 (CO Q-10) 100 mg cap capsule Take 1 capsule by mouth once daily. enoxaparin (LOVENOX) 120 mg/0.8 mL injection Inject 120 mg subcutaneously. CPAP/BIPAP/OTHER Continue ASV with current settings of EPAP 5 cm H2O with PS 4-12 cmH2O. Lifetime supplies for ASV, including patient preferred mask, head gear, heated tubing, humidity, filters, chin strap. Dx: Obstructive Sleep Apnea G47.33 DME: ROSEMARIE aspirin 81 mg chewable tablet Take 1 tablet by mouth once daily. BIPAP Please service machine, humidifier causing issues. Lifetime supplies G47.33 DOREEN BIPAP ASV EPAP min 5 cm H20, PS 4-12 cm H20. Mask fitting to consider Dream wear FFM. Provide lifetime supplies including tubing, heated humidity, filters. Dx: G47.33 AND G47.37. BIPAP Fax 30 day download report to [phone] to assess usage and residual AHI after receipt of replacement ASV. Melatonin 5 mg tab Take by mouth as needed. ACETAMINOPHEN (TYLENOL EXTRA STRENGTH ORAL) (more content not included)... [facility] URINALYSIS, REFLEX MICROSCOP ICon 10-25-2023 Bacteria LM.HPF (Urine sed) [#/Area] Negative Negative /HPF [facility] Bilirubin Ql (U) Negative Negative [facility] Clarity (Unsp spec) Clear Clear [facility] Color (U) Yellow Yellow [facility] Epithelial cells LM.HPF (Urine sed) [#/Area] None Seen /HPF [facility] Glucose Test strip (U) [Mass/Vol] Negative Negative [facility] Hemoglobin Ql (U) Trace Abnormal Negative [facility] Hyaline casts (Urine sed) [#/Area] 0 /[LPF] 0 /LPF [facility] Interpretation and review of laboratory results Abnormal [facility] Ketones Ql (U) Negative Negative [facility] Leukocyte esterase Test strip Ql (U) Negative Negative [facility] Nitrite Ql (U) Negative Negative [facility] pH (U) 6.0 [pH] NINF - 8.5 [facility] Protein (U) [Mass/Vol] Negative Negative [facility] RBC LM.HPF (Urine sed) [#/Area] 3-5 /HPF Abnormal 0-2 /HPF [facility] Specific gravity (U) [Rel density] 1.008 1.005 - 1.030 [facility] Urobilinogen Ql (U) 0.2 EU/dL 0.2-1.0 EU/dL [facility] WBC LM.HPF (Urine sed) [#/Area] 0-5 /HPF 0-5 /HPF [facility] This test was develo ped and its performance characteristics determined by [facility]'s [facility] [place] ([facility]). It has not been cleared or approved by the FDA. -[facility] is regulated under CLIA as qualified to perform high-complexity testing. This test is used for clinical purposes. It should not be regarded as investigational or for research. [facility] Bacteria LM.HPF (Urine sed) [#/Area] Negative Normal Negative [facility] Comment on above: Order Comment: Speci men Type: URINE SPECIMEN Ordering Facility: [facility] Address: [address] [place] [address] Performed By: #### L [id number] #### [facility] CLIA [id number] [address] [place] [address] [place] Bilirubin Ql (U) Negative Normal Negative [facility] Comment on above: Order Comment: Speci men Type: URINE SPECIMEN Ordering Facility: [facility] Address: [address] [place] [address] Performed By: #### L [id number] #### [facility] CLIA [id number] [address] [place] [address] [place] Clarity (Unsp spec) Clear Normal Clear [facility] Comment on above: Order Comment: Speci men Type: URINE SPECIMEN Ordering Facility: [facility] Address: [address] [place] [address] Performed By: #### L [id number] #### [facility] CLIA [id number] [facility] [place] [address] [place] Color (U) Yellow Normal Yellow [facility] Comment on above: Order Comment: Speci men Type: URINE SPECIMEN Ordering Facility: [facility] Address: [address] [place] [address] Performed By: #### L [id number] #### [facility] CLIA [id number] [address] [place] [address] [place] Epithelial cells LM.HPF (Urine sed) [#/Area] None Seen Normal [facility] Comment on above: Order Comment: Speci men Type: URINE SPECIMEN Ordering Facility: [facility] Address: [address] [place] [address] Performed By: #### L [id number] #### [facility] CLIA [id number] [address] [place] [address] [place] Glucose Test strip (U) [Mass/Vol] Negative Normal Negative [facility] Comment on above: Order Comment: Speci men Type: URINE SPECIMEN Ordering Facility: [facility] Address: [address] [place] [address] Performed By: #### L [id number] #### [facility] CLIA [id number] [address] [place] [address] [place] Hemoglobin Ql (U) Trace Abnormal Negative [facility] Comment on above: Order Comment: Speci men Type: URINE SPECIMEN Ordering Facility: [facility] Address: [address] [place] [address] Performed By: #### L [id number] #### [facility] CLIA [id number] [address] [place] [address] [place] Hyaline casts (Urine sed) [#/Area] 0 /[LPF] Normal 0 /LPF [facility] Comment on above: Order Comment: Speci men Type: URINE SPECIMEN Ordering Facility: [facility] Address: [address] [place] [address] Performed By: #### L [id number] #### [facility] CLIA [id number] [address] [place] [address] [place] Ketones Ql (U) Negative Normal Negative [facility] Comment on above: Order Comment: Speci men Type: URINE SPECIMEN Ordering Facility: [facility] Address: [address] [place] [address] Performed By: #### L [id number] #### [facility] CLIA [id number] [address] [place] [address] [place] Leukocyte esterase Test strip Ql (U) Negative Normal Negative [facility] Comment on above: Order Comment: Speci men Type: URINE SPECIMEN Ordering Facility: [facility] Address: [address] [place] [address] Performed By: #### L [id number] #### [facility] CLIA [id number] [address] [place] [address] [place] Nitrite Ql (U) Negative Normal Negative [facility] Comment on above: Order Comment: Speci men Type: URINE SPECIMEN Ordering Facility: [facility] Address: [address] [place] [address] Performed By: #### L [id number] #### [facility] CLIA [id number] [address] [place] [address] [place] pH (U) 6.0 [pH] Normal <8.5 [facility] Comment on above: Order Comment: Speci men Type: URINE SPECIMEN Ordering Facility: [facility] Address: [address] [place], [place] [id number] Performed By: #### L [id number] #### [facility] CLIA [id number] [address] [place] [address] [place] Protein (U) [Mass/Vol] Negative Normal Negative [facility] Comment on above: Order Comment: Speci men Type: URINE SPECIMEN Ordering Facility: [facility] Address: [address] [place] [address] Performed By: #### L [id number] #### [facility] CLIA [id number] [address] [place] [address] [place] RBC LM.HPF (Urine sed) [#/Area] 3-5 /HPF Abnormal 0-2 /HPF [facility] Comment on above: Order Comment: Speci men Type: URINE SPECIMEN Ordering Facility: [facility] Address: [address] [place] [address] Performed By: #### L [id number] #### [facility] CLIA [id number] [address] [place] [address] [place] Specific gravity (U) [Rel density] 1.008 Normal 1.005-1.03 0 [facility] Comment on above: Order Comment: Speci men Type: URINE SPECIMEN Ordering Facility: [facility] Address: [address] [place] [address] Performed By: #### L [id number] #### [facility] CLIA [id number] [address] [place] [address] [place] Urobilinogen Ql (U) 0.2 EU/dL Normal 0.2-1.0 EU/dL [facility] Comment on above: Order Comment: Speci men Type: URINE SPECIMEN Ordering Facility: [facility] Address: [address] [place] [address] Performed By: #### L [id number] #### [facility] CLIA [id number] [address] [place] [address] [place] WBC LM.HPF (Urine sed) [#/Area] 0-5 /HPF Normal 0-5 /HPF [facility] Comment on above: Order Comment: Speci men Type: URINE SPECIMEN Ordering Facility: [facility] Address: [address] [place] [address] Performed By: #### L [id number] #### [facility] CLIA [id number] [address] [place] [id number] [place] CNPDaria 10-18-2023 CNPN Telephone (PHAMTE) -- GEORGIE ELIZABETH ([id number]) 1970 M Date Time Provider Department 10/18/23 LANA POOLE PHAMSTonja During your visit today, we recorded the following information about you: Lana Poole lucy 10/18/2023 1:28 PM Signed [facility] Ambulatory Pharmacy Anticoagulation Clinic Anticoagulation Episode Summary Anticoagulation Care Providers Provider Role Specialty Phone number Saurav Bob MD Referring Internal Medicine [phone] Georgie Elizabeth is a 53 year old year old male patient being evaluated today for a Telemanagement visit. Patient is currently on the following anticoagulant(s) Warfarin. Labs PT INR (no units) Date Value 10/04/2023 2.0 07/11/2023 2.8 johanna per pt 01/26/2023 4.8 (self-reporting) INR Home CoaguChek (no units) Date Value 10/18/2023 3.9 10/10/2023 4.9 09/28/2023 6.0 Estimated Creatinine Clearance: 126.7 mL/min (based on SCr of 0.85 mg/dL). ALLERGIES Allergen Reactions Codeine Mental Status Change Sulfa Drugs [Sulfa * Myalgia Indication for Warfarin: Anticoagulation Episode Summary Current INR goal: 2.5-3.5 Assessment: INR result of 3.9 is SUPRAtherapeutic due to: unknown cause - did not speak to patient Started 28-day course of Cipro on 10/04/23. Plan: Current Warfarin Dosing As of 10/18/2023 Full warfarin instructions: 12.5 mg every Sun, Martha; 10 mg all other days Left voice message Advised patient to decrease total weekly regimen Next INR check due on 10/25/2023 Patient instructed to call [facility] at [phone] with any questions or concerns. Lana Poole [facility] Clinical Pharmacist, Pharmacy Anticoagulation Clinic Pharmacy Anticoagulation Clinic Pager: [phone] Lana Poole lucy 10/25/2023 4:45 PM Signed Patient was due to test INR today. Will continue to monitor for results. Will follow up in one week if no results received. Allergies As of Date: 10/18/2023 Noted Allergy Reaction CODEINE 10/30/2013 1 - Mental Status Change SULFA DRUGS (SULFA (SULFONAMIDE A*04/21/2023 17 - Myalgia Date Reviewed: 10/01/2023 Reviewed by: Angelo Salazar APRN.[employer] APPRENTICE - Fully Assessed Reason for Visit: Anticoagulation Telephone Fu [148] Cmt: Home INR Result Prescriptions as of 10/25/2023 - rosuvastatin (CRESTOR) 20 mg tablet Take 1 tablet by mouth once daily. - CPAP/BIPAP/OTHER Type .CPAPSettings into a note to see current settings/supplies/DME information. - pantoprazole DR (PROTONIX) 40 mg tablet Take 1 tablet by mouth once daily. On empty stomach at least 30 minutes before eating. - warfarin (COUMADIN) 10 mg tablet Take 15 mg every Mon, Wed; 12.5 mg all other days or as directed by anticoagulation clinic. (Takes with 5 mg tablets) - warfarin (COUMADIN) 5 mg tablet Take 15 mg every Mon, Wed; 12.5 mg all other days or as directed by anticoagulation clinic. (Takes with 10 mg tablets) - metoprolol succinate ER (TOPROL XL) 50 mg 24 hr tablet Take 1.5 tablets by mouth once daily. - coenzyme Q10 (CO Q-10) 100 mg cap capsule Take 1 capsule by mouth once daily. - enoxaparin (LOVENOX) 120 mg/0.8 mL injection Inject 120 mg subcutaneously. - CPAP/BIPAP/OTHER Continue ASV with current settings of EPAP 5 cm H2O with PS 4-12 cmH2O. Lifetime supplies for ASV, including patient preferred mask, head gear, heated tubing, humidity, filters, chin strap. Dx: Obstructive Sleep Apnea G47.33 DME: ROSEMARIE - aspirin 81 mg chewable tablet Take 1 tablet by mouth once daily. - BIPAP Please service machine, humidifier causing issues. Lifetime supplies G47.33 DOREEN - BIPAP ASV EPAP min 5 cm H20, PS 4-12 cm H20. Mask fitting to consider Dream wear FFM. Provide lifetime supplies including tubing, heated humidity, filters. Dx: G47.33 AND G47.37. - BIPAP Fax 30 day download report to [phone] to assess usage and residual AHI after receipt of replacement ASV. - Melatonin 5 mg tab Take by mouth as needed. - ACETAMINOPHEN (TYLENOL EXTRA STRENGTH ORAL) Take by mouth as needed. Facility-Administered Medications as of 10/25/2023 - perflutren lipid microspheres 1.3 mL in NaCl (PF) 0.9% 10 mL injection (DEFINITY) - sodium chloride 0.9 % (flush) 10 mL (BD POSIFLUSH) Problem List As Of Date 10/18/2023 Noted Resolved Pre-op testing [Z01.818] 11/01/2013 11/16/2013 History of cardiomyopathy [Z86.79] 11/01/2013 Mitral valve regurgitation [I34.0] 11/01/2013 11/16/2013 Cardiac insufficiency (HCC) [I50.9] 11/13/2013 11/14/2013 Stress hyperglycemia [R73.9] 11/13/2013 11/16/2013 Postoperative pain [G89.18] 11/13/2013 11/22/2013 LBBB [I44.7] 11/13/2013 Hypotension [I95.9] 11/13/2013 11/16/2013 Atelectasis [J98.11] 11/15/2013 04/29/2020 Fluid overload [E87.70] 11/15/2013 11/16/2013 Central sleep apnea treated with adaptive servo*11/15/2013 Urethral stricture (more content not included)... Normal [facility] INR FINGERSTICK B/Oon 2023 INR Coag (Bld) [Relative time] 2.0 {INR} [facility] UA DIP, URINE (POC)on 2023 BILIRUBIN UA (POCT) Negative Negative [facility] CLARITY UA (POCT) Cloudy [facility] COLOR UA (POCT) Dark yellow [facility] GLUCOSE UA (POCT) Negative Negative mg/dL [facility] Hemoglobin Ql (U) Large Abnormal Negative [facility] Interpretation and review of laboratory results Abnormal [facility] KETONE UA (POCT) Negative Negative mg/dL [facility] LEUKOCYTES UA (POCT) Large Abnormal Negative [facility] NITRITE UA (POCT) Positive Abnormal Negative [facility] PH UA (POCT) 5.5 4.5 - 8.0 [facility] Protein Ql (U) 30 mg/dL Abnormal Negative [facility] SPECIFIC GRAVITY UA (POCT) 1.010 1.005 - 1.030 [facility] UROBILINOGEN UA (POCT) 0.2 Teresa l E.U./dL [facility] Location:[address], [place], [place], [id number] [place] [address] POINT OF CARE [facility] UA DIP, URINE (POC)on 2023 BILIRUBIN UA (POCT) Negative Negative [facility] CLARITY UA (POCT) Cloudy [facility] COLOR UA (POCT) Yellow [facility] GLUCOSE UA (POCT) Negative Negative mg/dL [facility] Hemoglobin Ql (U) Large Abnormal Negative [facility] Interpretation and review of laboratory results Abnormal [facility] KETONE UA (POCT) Negative Negative mg/dL [facility] LEUKOCYTES UA (POCT) Large Abnormal Negative [facility] NITRITE UA (POCT) Positive Abnormal Negative [facility] PH UA (POCT) 6.0 4.5 - 8.0 [facility] Protein Ql (U) 30 mg/dL Abnormal Negative [facility] SPECIFIC GRAVITY UA (POCT) 1.025 1.005 - 1.030 [facility] UROBILINOGEN UA (POCT) 0.2 Teresa l E.U./dL [facility] Location:[address], [place], [place], [id number] [place] [address] POINT OF CARE [facility] Absolute lymphocyte countOrd ered By: Francisco De La Torre on 04-20-2023 Lymphocytes Auto (Unsp spec) [#/Vol] 2.35 10*3/uL 0.83-4.51 [facility] Basophil percentageOrdered B y: Francisco De La Torre on 04-20-2023 Basophil percentage 0-5 SEEN /hpf 0-5 [facility] Basophils/100 WBC (Bld) 0.4 % 0-1 [facility] Chloride [Moles/Vol] 105 mmol/L 98-107 [facility] Eosinophils/100 WBC (Bld) 0.1 % 0-5 [facility] Glucose [Mass/Vol] 106 mg/dL 74-106 [facility] Comment on above: Fasting Glucose resu lt from 100 to 125 mg/dL suggests IMPAIRED HOMEOSTASIS per A.D.A. criteria. Neutrophils (Bld) [#/Vol] 14.5 10*3/uL 2.0-7.7 [facility] Neutrophils/100 WBC (Bld) 76.8 % 47-70 [facility] Potassium [Moles/Vol] 4.0 mmol/L 3.5-5.1 [facility] Sodium [Moles/Vol] 135 mmol/L 136-145 [facility] WBC (Bld) [#/Vol] 18.9 10*3/uL 4.4-11.0 [facility] Bilirubin Test strip Ql (U)O rdered By: Francisco De La Torre on 04-20-2023 Bilirubin Ql (U) Negative Negative [facility] Blood erythrocytes count (nu mber/volume)Ordered By: Francisco De La Torre on 04-20-2023 RBC (Bld) [#/Vol] 5.20 10*6/uL 4.6-6.2 [facility] Blood hemoglobin measurement (mass/volume)Ordered By: Francisco De La Torre on 04-20-2023 Hemoglobin (Bld) [Mass/Vol] 14.0 g/dL 13.0-16.5 [facility] Blood lymphocytes/100 leukoc ytesOrdered By: Francisco De La Torre on 04-20-2023 Lymphocytes/100 WBC (Bld) 12.4 % 19-41 [facility] Blood manual differential co mment interpretation (narrative result)Ordered By: Francisco De La Torre on 04-20-2023 Manual differential comment Arturo (Bld) [Interp] SCANNED [facility] Blood monocytes/100 leukocyt esOrdered By: Francisco De La Torre on 04-20-2023 Monocytes/100 WBC (Bld) 10.0 % 0-10 [facility] Blood platelet mean volumeOr dered By: Francisco De La Torre on 04-20-2023 Platelet mean volume (Bld) [Entitic vol] 8.9 fL 6.2-12.0 [facility] Determination of erythrocyte mean corpuscular volume (MCV)Ordered By: Francisco De La Torre on 04-20-2023 MCV (RBC) [Entitic vol] 83.5 fL 80-94 [facility] Hematocrit Auto (Bld) [Volum e fraction]Ordered By: Francisco De La Torre on 04-20-2023 Hematocrit (Bld) [Volume fraction] 43.4 % 40-54 [facility] INR in Blood by Coagulation assayOrdered By: Francisco De La Torre on 04-20-2023 INR Coag (Bld) [Relative time] 2.0 {INR} [facility] Influenza virus A and B and SARS-CoV-2 (COVID-19) Ag panel - Upper respiratory specimOrdered By: Francisco De La Torre on 04-20-2023 SARS-CoV-2 (COVID-19) RNA DESEAN+probe Ql (Resp) [facility] Ketones Test strip Ql (U)Ord ered By: Francisco De La Torre on 04-20-2023 Ketones Ql (U) Negative Negative [facility] Laboratory - Chemistry and C hemistry - challengeOrdered By: Francisco De La Torre on 04-20-2023 CO2 [Moles/Vol] 26.0 mmol/L 21.0-32.0 [facility] Urea nitrogen/Creatinine [Mass ratio] 13.2 mg/mg 10-20 [facility] Laboratory - CoagulationOrde red By: Francisco De La Torre on 04-20-2023 PT Coag (PPP) [Time] 22.7 s 11.7-14.9 [facility] Laboratory - Hematology and Cell countsOrdered By: Francisco De La Torre on 04-20-2023 Erythrocyte distribution width (RBC) [Entitic vol] 43.1 fL 35.1-43.9 [facility] Erythrocyte distribution width (RBC) [Ratio] 14.2 % 11.6-14.6 [facility] Immature granulocytes/100 WBC (Bld) 0.300 % 0.0-0.9 [facility] Comment on above: IG% - Immature Granu locytes (promyelocytes, myelocytes and metamyelocytes) > 1% indicates that a LEFT SHIFT is Present. MCH (RBC) [Entitic mass] 26.9 pg 27.0-32.0 [facility] Nucleated RBC/100 WBC (Bld) [Ratio] 0 % 0-5 [facility] MCHC Auto (RBC) [Mass/Vol]Or dered By: Francisco De La Torre on 04-20-2023 MCHC (RBC) [Mass/Vol] 32.3 g/dL 32-36 [facility] Mucus LM Ql (Urine sed)Order ed By: Francisco De La Torre on 04-20-2023 Mucus Ql (Urine sed) 0 SEEN /hpf [facility] Nitrite Test strip Ql (U)Ord ered By: Francisco De La Torre on 04-20-2023 Nitrite Ql (U) Negative Negative [facility] No Panel InformationOrdered By: Francisco De La Torre on 04-20-2023 Estimated Creatinine Clearance Calc 109.86 ml/min [facility] Estimated GFR (MDRD) Amer 103 mL/min >60 [facility] Comment on above: GFR Calc Estimated GFR (MDRD) Non-Af Amer 85 mL/min >60 [facility] Comment on above: Non- GFR Calc Platelets bldOrdered By: Jamar De La Torre on 04-20-2023 Platelets (Bld) [#/Vol] 409 10*3/uL 150-450 [facility] Protein Test strip Ql (U)Ord ered By: Francisco De La Torre on 04-20-2023 Protein Ql (U) Negative Negative [facility] Review by pathologistOrdered By: Francisco De La Torre on 04-20-2023 Pathologist review Artruo (Unsp spec) [Interp] May foll [facility] Serum or plasma calcium tasha urement (mass/volume)Ordered By: Francisco De La Torre on 04-20-2023 Calcium [Mass/Vol] 9.4 mg/dL 8.5-10.1 [facility] Serum or plasma creatinine m easurement (mass/volume)Ordered By: Francisco De La Torre on 04-20-2023 Creatinine [Mass/Vol] 0.98 mg/dL 0.70-1.30 [facility] Comment on above: The validity of the calculated GFR & GFRAA in patients over 70 years has not been determined. Clinical correlation is essential. Serum or plasma urea nitroge n measurement (mass/volume)Ordered By: Francisco De La Torre on 04-20-2023 Urea nitrogen [Mass/Vol] 13 mg/dL 7-18 [facility] Squamous epithelial cells de tection in urine sediment by light microscopyOrdered By: Francisco De La Torre on 04-20-2023 Epithelial cells.squamous LM Ql (Urine sed) 0 SEEN /hpf 0-5 [facility] Thin prep Papanicolaou smear with manual screeningOrdered By: Francisco De La Torre on 04-20-2023 Thin prep Papanicolaou smear with manual screening 4 5-15 [facility] Urine blood detectionOrdered By: Francisco De La Torre on 04-20-2023 RBC Ql (U) 250 /ul Negative [facility] RBC Ql (U) 10-25 SEEN /hpf 0-5 [facility] Urine clarityOrdered By: Jamar De La Torre on 04-20-2023 Clarity (U) Clear Clear [facility] Urine color determinationOrd ered By: Francisco De La Torre on 04-20-2023 Color (U) Yellow Yellow [facility] Urine glucose detectionOrder ed By: Francisco De La Torre on 04-20-2023 Glucose Ql (U) Normal mg/dl Normal [facility] Urine leukocyte esterase det ection by dipstickOrdered By: Francisco De La Torre on 04-20-2023 Leukocyte esterase Test strip Ql (U) 25 /ul Negative [facility] Urine pHOrdered By: Francisco De La Torre on 04-20-2023 pH (U) 8.0 [pH] 5.0 - 8.0 [facility] Urine sediment bacteria coun t by microscopy (number/high power field)Ordered By: Francisco De La Torre on 04-20-2023 Bacteria LM.HPF (Urine sed) [#/Area] 0 /[HPF] None Seen [facility] Urine specific gravity measu rementOrdered By: Francisco De La Torre on 04-20-2023 Specific gravity (U) [Rel density] 1.010 1.002-1.03 0 [facility] Urobilinogen Auto test strip Ql (U)Ordered By: Francisco De La Torre on 04-20-2023 Urobilinogen Ql (U) Normal mg/dl Normal [facility] 36on 01-31-2023 36 S: Patient spoke wit h [facility] nurse regarding cough B: Onset of symptoms/concern 7 days A: Pt has cough bringing up thick green phlegm with blood at times. The blood is bright red and mixed with the phlegm. Not a lot of blood, just traces. Cough started 7 days ago. Blowing green mixed with blood out of his nose. Had covid 3 weeks ago. Was better for about a week. Has mechanical heart valve and concerned when he has any infection. Throat is raw from coughing. Headache is in the sinuses rates 8/10 and intermittent. Denies fever, chest pain, sob, wheezing, or ear pain. SpO2 has been normal - 96-97%. Pt is on warfarin. Tested negative for covid. R: Allergies reviewed and pharmacy verified - [facility] in [place]. Paged provider can reconditioner via secure - Dr Barton. Verbal order given to [facility] nurse for Augmentin 875 mg #20, take 1 po twice a day x 10 days with no refills. Pt to decrease coumadin dose to half of what he takes and be seen in the office tomorrow for INR check. Prescription order read back to provider for verification. Prescription called into pharmacy at 2:50 pm, spoke with Araceli. Pt informed. Scheduled for an appointment on 02-01-23 at 11:[address] Thrasher. Pt states he has not taken his warfarin yet today because has had similar problem with bleeding and they adjusted the dosage at that time so he thought he should wait until he speaks with the provider before taking his dose today. Will take half the dose today and tomorrow morning. Keep well hydrated. Humidifier. Patient understands care advice. Instructed to call back with any further questions or concerns or if symptoms worsen. Reason for Disposition [1] Coughed up blood-tinged sputum AND [2] more than once Protocols used: Cough - Acute Lwtykbrfne-UGADD-DL Normal [facility] INR FINGERSTICK B/Oon 2022 INR Coag (Bld) [Relative time] 3.8 (self-reported) [facility] 12-31-2022 36 [facility] Anticoagulatio n Management Service ([facility]) Anticoagulation Clinic [address] [place] [address] [address], [place] [address] Pt has been discharged from [facility] clinic because he transferred to [facility] Coumadin Clinic. Documentation is in EPIC. Pt and referring provider are aware of this change in management. [facility] Anticoagulation Episode has been resolved. Normal [facility] 36on 12-29-2022 36 Pt called here to le t us know that he is transferring to the [facility] fto managed his INR's because we no longer take his Insurance- [employer] and we are out of network. Please inactivate pt Normal [facility] INR FINGERSTICK B/Oon 2022 INR Coag (Bld) [Relative time] 2.9 self report [facility] PT Coag (Bld) [Time]on 12-18 INR Coag (PPP) [Relative time] 3.8 {INR} Abnormal 0.9 - 1.1 [facility] Interpretation and review of laboratory results Abnormal [facility] Progress Noteon 12-18-2022 Progress Note [facility] Anticoagulatio n Management [facility] ([facility]) Anticoagulation Clinic [address] [place] [address], [address], [place] [address] Subjective ERIC Georgie (1970) had INR completed by patient's own home INR meter, visit was completed by phone- audio only. 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 and has a goal INR 2.5-3.5. Pt has Coumadin 5mg and 10mg tablets and at last visit was instructed to take home dose of 15mg MWF, 12.5mg all other days. Pt confirms taking this dose and adherence to current regimen: no Pt denies any pertinent diet changes, upcoming surgeries, bleeding, falls or head trauma with the following exceptions: Augmentin started this week after being scratched by a stray kitten. Started antibiotic Wednesday evening, continue for 5 days. Review of Systems Denies bleeding Assessment Lab Results Component Value Date INR 3.8 (A) 12/17/2022 INR 3.6 (A) 12/10/2022 INR 5.4 (A) 12/03/2022 INR 2.7 (A) 11/25/2022 INR 2.1 (A) 11/17/2022 Plan INR is supratherapeutic d/t initiation of antibiotic (Augmentin 875/125mg BID x5d started evening of 12/16) . Patient has had 3 consecutive supratherapeutic INRs, but interpretation has been complicated by antibiotic use. Plan to give decreased dose x1 today then evaluate the necessity for permanent dose decrease next week. Dosing: Take 7.5 mg today then resume home dose of home dose of 15mg MWF, 12.5mg all other days Next INR Check: One week, 12/25/22 Patient given verbal instructions. Patient expressed understanding utilizing the teach back method. Patient educated on the following: medication interactions Patient care coordination completed: N/A Time spent 15 Minutes Siomara Granger PharmD Normal [facility] Protime-INRon 12-18-2022 PT Coag (Maura) [Time] 9.0 - [address] [facility] Progress Noteon 12-10-2022 Progress Note Pt reported INR Normal [facility] Progress Note [facility]tico[facility] Management [facility] ([facility]) Anticoagulation Clinic [address] [place] [address], [address], [place] [address] Serenity REYES Georgie (1970) had INR completed by patient's own home INR meter, visit was completed by phone- audio only. 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 and has a goal INR 2.5-3.5. Pt has Coumadin 5mg and 10mg tablets and at last visit was instructed to hold x1, then take 15mg Mon/Wed/Fri, 12.5mg all other days. Pt confirms taking this dose and adherence to current regimen: yes Pt denies any pertinent medication changes, diet changes, upcoming surgeries, bleeding, falls or head trauma with the following exceptions: Done with keflex and boil improved some, but not fully gone. He will let [facility] know if gets put on another round. Denies any bleeding or cardiac symptoms, no other changes noted. Review of Systems Denies bleeding Assessment Lab Results Component Value Date INR 3.6 (A) 12/10/2022 INR 5.4 (A) 12/03/2022 INR 2.7 (A) 11/25/2022 INR 2.1 (A) 11/17/2022 INR 2.1 (A) 11/13/2022 Plan INR is supratherapeutic d/t but only minimally. Dosing: since ATBs completed, resume home dose of 15mg MWF, 12.5mg all other days Next INR Check: 12/17/22 Patient given verbal instructions. Patient expressed understanding utilizing the teach back method. Patient educated on the following: medication adherence, medication interactions, dietary/lifestyle considerations, and Vitamin K content and consistency Time spent 15 Minutes Brooke Solis RN [facility] Progress Noteon 12-03-2022 Progress Note [facility]ticoagul[facility] Management Service ([facility]) Anticoagulation Clinic [address] [place] [address], [address], [place] [id number] Subjective ERIC Georgie (1970) had INR completed by patient's own home INR meter, visit was completed by phone- audio only. 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 and has a goal INR 2.5-3.5. Pt has Coumadin 5mg and 10mg tablets and at last visit was instructed to take 12.5mg daily except 15mg MWF. Pt confirms taking this dose and adherence to current regimen: yes Pt denies any pertinent medication changes, diet changes, upcoming surgeries, bleeding, falls or head trauma with the following exceptions: Started Keflex 2 days ago (7 day script) after 12/01 urgent care visit for boil on face;not sure but maybe a possiblity of taking an extra Warfarin dose 1 day Review of Systems Constitutional: Negative for activity change, appetite change and fatigue. HENT: Negative for nosebleeds. Respiratory: Negative for shortness of breath. Cardiovascular: Negative for chest pain and leg swelling. Gastrointestinal: Negative for blood in stool, diarrhea, nausea and vomiting. Genitourinary: Negative for hematuria. Neurological: Negative for weakness, light-headedness and headaches. Hematological: Does not bruise/bleed easily. Denies bleeding Assessment Lab Results Component Value Date INR 5.4 (A) 12/03/2022 INR 2.7 (A) 11/25/2022 INR 2.1 (A) 11/17/2022 INR 2.1 (A) 11/13/2022 INR 3.7 (A) 10/27/2022 Plan INR is supratherapeutic d/t possibly taking extra dose and/or boil (infection) Dosing: hold tomorrow's dose (pt already took today's dose) then 12.5mg daily except 15mg MWF,15% one time decrease Next INR Check: 12/10/22 Patient given verbal instructions. Patient expressed understanding utilizing the teach back method. Scheduled for recheck INR in 1 week w/home meter. Patient educated on the following: medication interactions, dietary/lifestyle considerations, and reasons for elevated INRs Patient care coordination completed: N/A Time spent 15 Minutes Manju Daniels HEALTHCARE MANAGER Normal [facility] PT Coag (Bld) [Time]on 11-25 INR Coag (PPP) [Relative time] 2.7 {INR} Abnormal 0.9 - 1.1 [facility] Interpretation and review of laboratory results Abnormal [facility] Progress Noteon 11-25-2022 Progress Note INR therapeutic, con tinue current dose Normal [facility] Progress Note INR result received via fax. Normal [facility] Protime-INRon 11-25-2022 PT Coag (Bld) [Time] 9.0 - [address] [facility] URINALYSIS, REFLEX MICROSCOP ICon 11-23-2022 Bilirubin Ql (U) Negative Negative [facility] Clarity (Unsp spec) Clear Clear [facility] Color (U) Light Yellow Yellow [facility] Glucose Test strip (U) [Mass/Vol] Negative Trace, Negative [facility] Hemoglobin Ql (U) Negative Negative, Trace [facility] Ketones Ql (U) Negative Negative, Trace [facility] Leukocyte esterase Test strip Ql (U) Negative Negative, 25 Kavya/uL [facility] Nitrite Ql (U) Negative Negative [facility] pH (U) 6.5 [pH] 5.0 - 8.0 [facility] Protein (U) [Mass/Vol] Negative Trace , Negative [facility] Specific gravity (U) [Rel density] 1.014 1.005 - 1.030 [facility] Urobilinogen Ql (U) Negative Negative [facility] PT Coag (Bld) [Time]Ordered By: Marychuy Espinoza on 11-17-2022 INR Coag (PPP) [Relative time] 2.1 {INR} Abnormal 0.9 - 1.1 [facility] Interpretation and review of laboratory results Abnormal [facility] Progress Noteon 11-17-2022 Progress Note [facility] ([facility]) Anticoagulation Clinic [address] [place] [address], [address], [place] [address] Subjective HPI Georgie (1970) had INR completed by patient's own home meter, visit was completed by phone- audio only. 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 and has a goal INR 2.5-3.5. Pt has Coumadin 5mg and 10mg tablets and at last visit was instructed to take 12.5 mg on 10/28 then 15 mg on MWF and 12.5 mg all other days. Held warfarin for 5 days prior to procedure then took 20mg x2 followed by usual dose. Pt confirms taking this dose and adherence to current regimen. Any medication changes: no Any changes in diet (vit K): yes; has been making smoothies with raw pumpkin seeds (they are green in color) Any falls or head trauma: no Any bleeding: no Any SOB, chest pain, swelling: no Refills needed: no Any other changes or concerns: no Review of Systems Assessment Lab Results Component Value Date INR 2.1 (A) 11/17/2022 INR 3.7 (A) 10/27/2022 INR 1.6 (H) 10/19/2022 INR 3.5 (A) 10/06/2022 INR 3.4 (A) 09/22/2022 Plan Dosing as below: Subtherapeutic due to holding for procedure. Take 17.5 mg today then resume 15 mg on MWF and 12.5 mg all other days Next INR Check: 11-24-22 Patient educated on the following: medication adherence Positive ROS findings are: n/a, no positive findings Georgie was instructed to notify [facility] of any unusual bruising or active/uncontrollable bleeding, medication changes within 24 hours, missed doses, dietary changes, illnesses or hospitalizations, and upcoming surgeries. Patient given verbal instructions. Patient expressed understanding utilizing the teach back method. Time spent 10 Minutes TIFFANIE Mcfarlane, LaytonD, BCPS [facility] Progress Note INR received via fax. [facility] Protime-INROrdered By: Nini Espinoza on 11-17-2022 PT Coag (Bld) [Time] 9.0 - [address] [facility] PT Coag (Bld) [Time]on 11-13 INR Coag (PPP) [Relative time] 2.1 {INR} Abnormal 0.9 - 1.1 [facility] Interpretation and review of laboratory results Abnormal [facility] Protime-INRon 11-13-2022 PT Coag (Bld) [Time] 9.0 - [address] [facility] Laboratory - CoagulationOrde red By: Kyaw Friend on 11-10-2022 INR Coag (Bld) [Relative time] 1.1 {INR} [facility] Comment on above: Critical Value > 4.0 Whole blood prothrombin time Ordered By: Kyaw Friend on 11-10-2022 PT Coag (Bld) [Time] 12.1 s 11.7-14.9 [facility] Progress Noteon 10-27-2022 Progress Note Pt called in his results Normal [facility] Progress Note [facility] ([facility]) Anticoagulation Clinic [address] [place] [address], [address], [place] [id number] Subjective ERIC Georgie (1970) had INR completed by patient's own home INR meter, visit was completed by phone- audio only. 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 and has a goal INR 2.5-3.5. Pt has Coumadin 5mg tablets and at last visit was instructed to take 20 mg x1 then 12.5mg daily except 15mg MWF,Lovenox x 3 days;to hold 11/05-11/09 for 11/10 procedure;20 mg x2 days then 12.5mg daily except 15mg MWF,Lovenox injections according to perioperative instrcutions. Pt confirms taking this dose and adherence to current regimen: no, only took Lovenox injection x 1 day,states rechecked INR next day and it was in range Pt denies any pertinent medication changes, diet changes, upcoming surgeries, bleeding, falls or head trauma with the following exceptions: 11/10/22 EGD-given perioperative instructions @ last visit Review of Systems Denies bleeding Assessment Lab Results Component Value Date INR 3.7 (A) 10/27/2022 INR 1.6 (H) 10/19/2022 INR 3.5 (A) 10/06/2022 INR 3.4 (A) 09/22/2022 INR 4.1 (A) 09/09/2022 Plan INR is supratherapeutic d/t unknown reason Dosing: take 12.5mg tomorrow (pt already took today's dose) then resume 12.5mg daily except 15mg MWF Next INR Check: 11/05/22 Patient given verbal instructions. Patient expressed understanding utilizing the teach back method. Scheduled for recheck INR in 1 week w/home meter. Patient educated on the following: dietary/lifestyle considerations and reasons for elevated INRs Patient care coordination completed: N/A Time spent 15 Minutes Manju Daniels RN BSN [facility] 36on 10-19-2022 36 Instructions provide d at 10/19 appointment. Patient verbalized understanding. [facility] 36 [facility] Anticoagulatio n Management Service ([facility]) Anticoagulation Clinic [address] [place] [address], [address] [facility], [place] [address] Bridge Instruction Sheet Patient: Georgie Elizabeth Date of : 1970 Procedure: EGD Date of Procedure: 11/10/22 Patient is on warfarin for mechanical mitral valve. Thrombotic risk high, Recommend hold warfarin for 5 days for EGD, will plan to bridge with LMWH d/t current efficacy and safety data. Day Lovenox AM Lovenox PM Coumadin PM 5 days prior 11/05 NONE NONE NONE 4 days prior 11/06 120mg 120mg NONE 3 days prior 11/07 120mg 120mg NONE 2 days prior 11/08 120mg 120mg NONE 1 day prior 11/09 120mg NONE NONE Day of procedure 11/10 NONE NONE Resume only if okay with surgeon 20mg Day 1 after procedure 11/11 Resume only if okay with surgeon 120mg 120mg 20mg Day 2 after procedure 11/12 120mg 120mg 12.5 Day 3 after procedure 11/13 120mg 120mg 15 Day 4 after procedure 11/14 120mg 120mg 12.5 Day 5 after procedure 11/15 120mg 120mg 12.5 Please note that you may be asked to wait a few days before resuming your blood thinner. This will depend on the risk of bleeding following your surgery. Please do not resume any blood thinner unless your surgeon has given you instructions to do so. Please call [facility] Anticoagulation Clinic at [phone] with any questions. INR to be checked: 11/15 Devika Higuera, [facility]/10/19/22 Any questions please call [facility] Anticoagulation Clinic at [phone] Normal [facility] 36 Patient in need of r efill warfarin 5 mg tablet sent to [facility] in [place]. Normal [facility] Laboratory - Coagulationon 0 10-19-2022 INR Coag (Bld) [Relative time] 1.6 {INR} High 0.9 - 1.1 [facility] No Panel Informationon 10-19 Interpretation and review of laboratory results Abnormal [facility] Performed by: [facility], [address] [place] [address] CLIA ID: [id number] [facility] Progress Noteon 10-19-2022 Progress Note [facility] Anticoagulatio n Management Service ([facility]) Anticoagulation Clinic [address] [place] [address], [address], [place] [address] Serenity ERIC Serrato (1970) presents to the [facility] clinic today for follow-up warfarin visit. 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 and has a goal INR 2.5-3.5. Pt has Coumadin 5mg tablets and at last visit was instructed to take 12.5 mg daily except 15 mg MWF. Pt confirms taking this dose and adherence to current regimen: no, Ran out over the weekend and only took 5mg Wednesday, none Wednesday. Any changes in prescriptions, OTC, and/or herbal medications: no Changes in alcohol or tobacco use: no Any recent hospitalizations or ED visits: no Any recent falls or head trauma: no Any changes in diet (vit K): no Upcoming surgeries or procedure: yes, 11/10 EGD instructions provided today Does pt need refills on warfarin prescription: yes, will send 10mg tablets Review of Systems Objective Vitals: 10/19/22 1407 BP: 127/71 Pulse: 67 Weight: 247 lb 3.2 oz (112 kg) Assessment Lab Results Component Value Date INR 1.6 (H) 10/19/2022 INR 3.5 (A) 10/06/2022 INR 3.4 (A) 09/22/2022 INR 4.1 (A) 09/09/2022 INR 3.5 (A) 08/25/2022 Plan INR is subtherapeutic d/t running out of warfarin this weekend - instructed him to plan ahead in the future as we are more than happy to send refills. Dosinmg today then 15mg MWF, 12.5mg all other days. Instructed to bridge with lovenox 120mg BID until 10/22. Next INR Check: 10/26 Patient educated on the following: medication adherence, Vitamin K content and consistency, and procedure instructions Patient care coordination completed: Refill Sent - warfarin 10mg and lovenox Positive ROS findings are: n/a - no positive findings Georgie was instructed to notify [facility] of any unusual bruising or active/uncontrollable bleeding, medication changes within 24 hours, missed doses, dietary changes, illnesses or hospitalizations, and upcoming surgeries. Patient given written instructions. Patient expressed understanding utilizing the teach back method. Discharged ambulatory in no apparent distress. Time spent 20 Minutes Devika Higuera [facility] 36on 10-06-2022 36 Scheduled for EGD at [facility]. To hold warfarin 5 days prior. Has [facility] MVR. Will need to bridge with lovenox. [facility] Progress Noteon 10-06-2022 Progress Note [facility] Anticoagulatio n Management Service ([facility]) Anticoagulation Clinic [address] [place] [address], [address] [place] [address] Subjective HPI Georgie (1970) had INR completed by patient's own home meter, visit was completed by phone, audio only. 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 and has a goal INR 2.5-3.5. Pt has Coumadin 5mg tablets and at last visit was instructed to take 12.5 mg daily except 15 mg MWF. Pt confirms taking this dose and adherence to current regimen: yes Any changes in prescriptions, OTC, and/or herbal medications: yes . Ursodiol rxd in the last month Changes in alcohol or tobacco use: no Any recent hospitalizations or ED visits: no Any recent falls or head trauma: no Any changes in diet (vit K): no Upcoming surgeries or procedure: yes. EGD 11/10 Dr Kezia Tuttle Friend Will need to hold 5 days prior and bridge with lovenox. Does pt need refills on warfarin prescription: no Review of Systems Constitutional: Negative for activity change, appetite change and fatigue. HENT: Negative for nosebleeds. Respiratory: Negative for shortness of breath. Cardiovascular: Negative for chest pain and leg swelling. Gastrointestinal: Negative for blood in stool, diarrhea, nausea and vomiting. Genitourinary: Negative for hematuria. Neurological: Negative for weakness, light-headedness and headaches. Hematological: Does not bruise/bleed easily. Assessment Lab Results Component Value Date INR 3.5 (A) 10/06/2022 INR 3.4 (A) 09/22/2022 INR 4.1 (A) 09/09/2022 INR 3.5 (A) 08/25/2022 INR 2.4 (A) 08/03/2022 Plan INR is therapeutic Dosin.5 mg daily except 15 mg MWF Next INR Check: In person yearly appt 10/19 Patient educated on the following: medication adherence and Vitamin K content and consistency Patient care coordination completed: will make a TE for procedure Patient given verbal instructions. Patient expressed understanding utilizing the teach back method. Time spent 10 Minutes Irene aCge RN Normal [facility] Progress Note INR received via fax [facility] 36on 10-05-[address] [place] [address] Anticoagulatio n Management Service ([facility]) Anticoagulation Clinic [address] [place] [address] Received annual referral from Dr. Thrasher on 07-13-22. Updated information in patient care coordination note and anticoagulation episode. Normal [facility] Progress Noteon 09-22-2022 Progress Note INR received via fax [facility] Progress Note [facility] Anticoagulatio n Management [facility] ([facility]) Anticoagulation Clinic [address] [place] [id number] Serenity REYES Georgie (1970) had INR completed by patient's own home INR meter, visit was completed by phone- audio only. 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 and has a goal INR 2.5-3.5. Pt has Coumadin 5mg tablets and at last visit was instructed to take 12.5mg daily except 15mg MWF. Pt only wants called if out of range or first of month Review of Systems Denies bleeding Assessment Lab Results Component Value Date INR 3.4 (A) 09/22/2022 INR 4.1 (A) 09/09/2022 INR 3.5 (A) 08/25/2022 INR 2.4 (A) 08/03/2022 INR 2.4 (A) 07/20/2022 Plan INR is therapeutic Dosin.5mg daily except 15mg MWF Next INR Check: 10/06/22 Patient scheduled for recheck INR in 2 weeks w/home meter. Time spent 15 Minutes Manju Daniels RN BSN Normal [facility] Laboratory - Coagulationon 0 09-09-2022 PT Coag (Bld) [Time] 9.0 - [address] [facility] PT Coag (Bld) [Time]on 09-09 INR Coag (PPP) [Relative time] 4.1 {INR} Abnormal 0.9 - 1.1 [facility] Interpretation and review of laboratory results Abnormal [facility] Progress Noteon 09-09-2022 Progress Note INR received via fax. Normal [facility] Progress Note [facility] Anticoagulatio n Management Service ([facility]) Anticoagulation Clinic [address] [place] [address], [address], [place] [address] Serenity REYES Georgie (1970) had INR completed by patient's own home meter, visit was completed by phone- audio only. 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 and has a goal INR 2.5-3.5. Pt has Coumadin 5mg tablets and at last visit was instructed to take 15 mg on MWF and 12.5 mg all other days. Pt confirms taking this dose and adherence to current regimen. Any medication changes: no Any changes in diet (vit K): yes, eating a little different. Originally was thought to have gallstones now it's something with his stomach. He is eating more seeds - flax, pumpkin and braden Any falls or head trauma: no Any bleeding: no Any SOB, chest pain, swelling: no Refills needed: no Any other changes or concerns: no Review of Systems Assessment Lab Results Component Value Date INR 4.1 (A) 09/09/2022 INR 3.5 (A) 08/25/2022 INR 2.4 (A) 08/03/2022 INR 2.4 (A) 07/20/2022 INR 2.5 (A) 07/13/2022 Plan Dosing as below: Already took his dose today, so he will take 10 mg tomorrow then resume 15 mg on MWF and 12.5 mg all other days Next INR Check: 09-21-22 Patient educated on the following: medication adherence and dietary/lifestyle considerations Positive ROS findings are: none Georgie was instructed to notify [facility] of any unusual bruising or active/uncontrollable bleeding, medication changes within 24 hours, missed doses, dietary changes, illnesses or hospitalizations, and upcoming surgeries. Patient given verbal instructions. Patient expressed understanding utilizing the teach back method. Time spent 10 Minutes TIFFANIE Mcfarlane, LaytonD, BCPS Normal [facility] PT Coag (Bld) [Time]on 08-25 INR Coag (PPP) [Relative time] 3.5 {INR} Abnormal 0.9 - 1.1 [facility] Interpretation and review of laboratory results Abnormal [facility] Progress Noteon 08-25-2022 Progress Note INR received via fax Normal S [facility] Progress Note [facility] Anticoagulatio n Management Service ([facility]) Anticoagulation Clinic [address] [place] [address], [address] [place] [address] Subjective HPI Georgie (1970) had INR completed by patient's own home meter, visit was completed by phone- audio only. 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 and has a goal INR 2.5-3.5. Pt has Coumadin 5mg tablets and at last visit was instructed to take 17.5 mg x 1 then resume 15 mg on MWF and 12.5 mg all other days. Pt confirms taking this dose and adherence to current regimen. Any medication changes: no Any changes in diet (vit K): no Any falls or head trauma: no Any bleeding: no Any SOB, chest pain, swelling: no Refills needed: no Any other changes or concerns: yes, currently has gallstones. He had some test done last week which showed his bilirubin is high and some other things. He is having trouble eating - his stomach hurts due to the stones. He is seeing his doctor tomorrow to go over test results. I asked him to call and let us know what they decided to do. Review of Systems Assessment Lab Results Component Value Date INR 3.5 (A) 08/25/2022 INR 2.4 (A) 08/03/2022 INR 2.4 (A) 07/20/2022 INR 2.5 (A) 07/13/2022 INR 4.5 (A) 07/10/2022 Plan Dosing as below: Continue taking 15 mg on MWF and 12.5 mg all other days. Will need to monitor for INR changes closely since he has gallstones which are affecting his ability to eat. Next INR Check: 09-08-22 Patient educated on the following: medication adherence Positive ROS findings are: none Georgie was instructed to notify [facility] of any unusual bruising or active/uncontrollable bleeding, medication changes within 24 hours, missed doses, dietary changes, illnesses or hospitalizations, and upcoming surgeries. Patient given verbal instructions. Patient expressed understanding utilizing the teach back method. Time spent 10 Minutes TIFFANIE Mcfarlane, PharmD, [facility] Normal [facility] Protime-INRon 08-25-2022 PT Coag (Bld) [Time] 9.0 - [address] [facility] HEPATOBILIARY W EF AND/OR RXon 08-21-2022 [facility] US ABD RIGHT UPPER QUADRANTo n 08-13-[address] [facility] [address] ABD/PEL W IVCONon 023 [facility] Progress Noteon 08-03-2022 Progress Note INR received via fax. Normal [facility] Progress Note [facility] Anticoagulatio n Management Service ([facility]) Anticoagulation Clinic [address] [place] [address], [address], [place] [id number] Subjective HPI Georgie (1970) had INR completed by patient's own home meter, visit was completed by phone, audio only. 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 and has a goal INR 2.5-3.5. Pt has Coumadin 5mg tablets and at last visit was instructed to take 12.5 mg daily except 15 mg Wed. Pt confirms taking this dose and adherence to current regimen: yes Any changes in prescriptions, OTC, and/or herbal medications: yes. No longer using melatonin. Takes zzzquil ultra for sleep Changes in alcohol or tobacco use: no Any recent hospitalizations or ED visits: no Any recent falls or head trauma: no Any changes in diet (vit K): no Upcoming surgeries or procedure: no Does pt need refills on warfarin prescription: no Review of Systems Constitutional: Negative for activity change, appetite change and fatigue. HENT: Negative for nosebleeds. Respiratory: Negative for shortness of breath. Cardiovascular: Negative for chest pain and leg swelling. Gastrointestinal: Negative for blood in stool, diarrhea, nausea and vomiting. Genitourinary: Negative for hematuria. Neurological: Negative for weakness, light-headedness and headaches. Hematological: Does not bruise/bleed easily. Assessment Lab Results Component Value Date INR 2.4 (A) 08/03/2022 INR 2.4 (A) 07/20/2022 INR 2.5 (A) 07/13/2022 INR 4.5 (A) 07/10/2022 INR 1.6 (A) 07/07/2022 Plan INR is subtherapeutic d/t unknown. Has been subtherapeutic or low normal last few visits. Dosin.5 mg today then increase to 15 mg MWF otherwise 12.5 mg daily Next INR Check: 08/17 Patient educated on the following: medication adherence, Vitamin K content and consistency, and rationale for dose change Patient care coordination completed: N/A Patient given verbal instructions. Patient expressed understanding utilizing the teach back method. Time spent 10 Minutes Irene Cage RN RGodios, PharmD, BCACP, CACP Normal [facility] PT Coag (Bld) [Time]on 07-20 INR Coag (PPP) [Relative time] 2.4 {INR} Abnormal 0.9 - 1.1 [facility] Interpretation and review of laboratory results Abnormal [facility] Progress Noteon 07-20-2022 Progress Note [facility] Anticoagulatio n Management Service ([facility]) Anticoagulation Clinic [address], [address], [place] [address] Serenity ERIC Serrato (1970) had INR completed by patient's own home meter, visit was completed by phone, audio only. 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 and has a goal INR 2.5-3.5. Pt has Coumadin 5mg tablets and at last visit was instructed to take Take 15 mg today then resume 12.5 mg daily. INRs have been running low so trialing an increase in maintenance dose. Pt confirms taking this dose and adherence to current regimen: yes Any changes in prescriptions, OTC, and/or herbal medications: yes, didn't take his baby aspirin all week last week Changes in alcohol or tobacco use: no Any recent hospitalizations or ED visits: no Any recent falls or head trauma: no Any changes in diet (vit K): no Upcoming surgeries or procedure: no Does pt need refills on warfarin prescription: no Review of Systems Constitutional: Negative for activity change, appetite change and fatigue. HENT: Negative for nosebleeds. Respiratory: Negative for shortness of breath. Cardiovascular: Negative for chest pain and leg swelling. Gastrointestinal: Negative for blood in stool, diarrhea, nausea and vomiting. Genitourinary: Negative for hematuria. Neurological: Negative for weakness, light-headedness and headaches. Hematological: Does not bruise/bleed easily. Assessment Lab Results Component Value Date INR 2.4 (A) 07/20/2022 INR 2.5 (A) 07/13/2022 INR 4.5 (A) 07/10/2022 INR 1.6 (A) 07/07/2022 INR 2.3 (A) 06/23/2022 Plan INR is subtherapeutic d/t unknown Dosing: Take 15mg today then take 12.5mg daily except for Wednesday and Wednesday take 15mg Next INR Check: 07/27/22 Patient educated on the following: medication adherence and rationale for dose change, restart his daily low-dose aspirin Patient care coordination completed: N/A Patient given verbal instructions. Patient expressed understanding utilizing the teach back method. Time spent 8 Minutes Roxy Mitchell, staffed with Amy, PharmD, BCACP, CACP [facility] Progress Note INR received via fax. Normal [facility] Protime-INRon 07-20-2022 PT Coag (Maura) [Time] 9.0 - [address] [facility] 36on 07-13-2022 36 INR reported by patient Normal [facility] Progress Noteon 07-13-2022 Progress Note [facility] Anticoagulatio n Management Service ([facility]) Anticoagulation Clinic [address] [place] [address], [address], [place] [address] Subjective HPI Georgie (1970) had INR completed by patient's own home meter, visit was completed by phone- audio only. 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 and has a goal INR 2.5-3.5. Pt has Coumadin 5mg tablets and at last visit was instructed to take 17.5 mg on Wed, , 15 mg on Wednesday and 12.5 mg on Wed & Wed. Pt confirms taking this dose and adherence to current regimen. Pt checked INR on Wednesday and it was 4.5, did not alter his dose Any medication changes: no Any changes in diet (vit K): no Any falls or head trauma: no Any bleeding: no Any SOB, chest pain, swelling: no Refills needed: no Any other changes or concerns: no Review of Systems Assessment Lab Results Component Value Date INR 2.5 (A) 07/13/2022 INR 1.6 (A) 07/07/2022 INR 2.3 (A) 06/23/2022 INR 2.6 (A) 06/09/2022 INR 2.9 (A) 05/18/2022 Plan Dosing as below: Take 15 mg today then resume 12.5 mg daily. INRs have been running low so trialing an increase in maintenance dose. Interesting that INR increased to 4.5 after boost doses and then back down to 2.5 without any alteration in dose. Next INR Check: 07-20-2022 Patient educated on the following: medication adherence Positive ROS findings are: none Georgie was instructed to notify [facility] of any unusual bruising or active/uncontrollable bleeding, medication changes within 24 hours, missed doses, dietary changes, illnesses or hospitalizations, and upcoming surgeries. Patient given verbal instructions. Patient expressed understanding utilizing the teach back method. Time spent 10 Minutes TIFFANIE Mcfarlane, PharmD, [facility] Progress Note INR received via fax. [facility] 36on 07-08-2022 36 Patient was receivin g an error message on his home reader when he checked his INR yesterday. He suspects it has to do with his cartridge. Patient called to order new strips. Anticipating receiving strips Wednesday or Wednesday. Follow up with patient to confirm he received his strips. If he has not, fax INR order to [facility] for 07/13 because patient will already be going to have labs drawn 07/13. [facility] Progress Noteon 07-08-2022 Progress Note INR received via fax. [facility] Progress Note [facility] Anticoagulatio n Management Service ([facility]) Anticoagulation Clinic [address] [place] [address], [address] [place] [address] Subjective HPI Georgie (1970) had INR completed by patient's own home meter, visit was completed by phone, audio only. 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 and has a goal INR 2.5-3.5. Pt has Coumadin 5mg tablets and at last visit was instructed to take 15mg boost dose first day then 12.5mg everyday. Pt confirms taking this dose and adherence to current regimen: yes, pt missed one dose and unsure if he may have missed another dose, also took lovenox 120 mg last night Any changes in prescriptions, OTC, and/or herbal medications: no, took 4 amoxicillin yesterday (dentist-cap placed) Changes in alcohol or tobacco use: no Any recent hospitalizations or ED visits: no Any recent falls or head trauma: no Any changes in diet (vit K): no, had kev tea a couple times last week Upcoming surgeries or procedure: no Does pt need refills on warfarin prescription: no Patient has enoxaparin at home: Has 1 box left of 120mg (only used 1 syringe last night). Patient confirmed these are not . Patient uses [facility] on in [place] Review of Systems Constitutional: Negative for activity change, appetite change and fatigue. HENT: Negative for nosebleeds. Respiratory: Negative for shortness of breath. Cardiovascular: Negative for chest pain and leg swelling. Gastrointestinal: Negative for blood in stool, diarrhea, nausea and vomiting. Genitourinary: Negative for hematuria. Neurological: Negative for weakness, light-headedness and headaches. Hematological: Does not bruise/bleed easily. Assessment Lab Results Component Value Date INR 1.6 (A) 07/07/2022 INR 2.3 (A) 06/23/2022 INR 2.6 (A) 06/09/2022 INR 2.9 (A) 05/18/2022 INR 2.6 (A) 04/28/2022 Plan INR is subtherapeutic d/t missed dose (potentially more than one) Dosing: warfarin 17.5 mg today and tomorrow, 15 mg Fri, 12.5 mg Sat and Sun. Bridge with lovenox 120 mg tonight, then 120 mg BID tomorrow and Fri, and 120 mg AM on Sat. Most recent weight 259 lb 6.4 oz (118 kg), pt picked up enoxaparin 120 mg syringes on 02/25/22, still has enoxaparin at home and no need to send new prescription. Of note, patient has been low 06/23 and 07/07 visit (possibly d/t missed doses). Consider increasing maintenance plan for patient at next visit. Next INR Check: 07/13/22 Patient educated on the following: dietary/lifestyle considerations and rationale for dose change Patient care coordination completed: N/A Patient given verbal instructions. Patient expressed understanding utilizing the teach back method. Time spent 20 Minutes Elvia Garcia, LaytonD Candidate; staffed with: Selma Godinez RPh Normal [facility] Laboratory - Coagulationon 0 07-07-2022 PT Coag (Bld) [Time] 9.0 - [address] [facility] PT Coag (Bld) [Time]on 07-07 INR Coag (PPP) [Relative time] 1.6 {INR} Abnormal 0.9 - 1.1 [facility] Interpretation and review of laboratory results Abnormal [facility] PT Coag (Bld) [Time]on 06-23 INR Coag (PPP) [Relative time] 2.3 {INR} Abnormal 0.9 - 1.1 [facility] Interpretation and review of laboratory results Abnormal [facility] Progress Noteon 06-23-2022 Progress Note [facility] Anticoagulatio n Management Service ([facility]) Anticoagulation Clinic [address] [place] [address], [address], [place] [address] Subjective HPI Georgie (1970) had INR completed by patient's own home meter, visit was completed by phone- audio only. 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 and has a goal INR 2.5-3.5. Pt has Coumadin 5mg tablets and at last visit was instructed to take 12.5 mg daily. Pt confirms to missing his dose on Wednesday. Any medication changes: no Any changes in diet (vit K): no Any falls or head trauma: no Any bleeding: no Any SOB, chest pain, swelling: no Refills needed: no Any other changes or concerns: no Review of Systems Assessment Lab Results Component Value Date INR 2.3 (A) 06/23/2022 INR 2.6 (A) 06/09/2022 INR 2.9 (A) 05/18/2022 INR 2.6 (A) 04/28/2022 INR 3.1 (A) 04/14/2022 Plan Dosing as below: Slightly subtherapeutic due to missed dose Wednesday. Take 15 mg today then resume 12.5 mg daily Next INR Check: 07-07-22 Patient educated on the following: medication adherence Positive ROS findings are: none Georgie was instructed to notify [facility] of any unusual bruising or active/uncontrollable bleeding, medication changes within 24 hours, missed doses, dietary changes, illnesses or hospitalizations, and upcoming surgeries. Patient given verbal instructions. Patient expressed understanding utilizing the teach back method. Time spent 10 Minutes TIFFANIE Mcfarlane, PharmD, BCPS Normal [facility] Progress Note INR received via fax. Normal [facility] Protime-INRon 06-23-2022 PT Coag (Bld) [Time] 9.0 - [address] [facility] Laboratory - Coagulationon 0 06-09-2022 PT Coag (Bld) [Time] 9.0 - [address] [facility] PT Coag (Bld) [Time]on 06-09 INR Coag (PPP) [Relative time] 2.6 {INR} Abnormal 0.9 - 1.1 [facility] Interpretation and review of laboratory results Abnormal [facility] Progress Noteon 06-09-2022 Progress Note [facility] Anticoagulatio n Management Service ([facility]) Anticoagulation Clinic [address] [place] [address], [address], [place] [id number] Subjective HPI Georgie (1970) had INR completed by patient's own home meter, visit was completed by phone- audio only. 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 and has a goal INR 2.5-3.5. Pt has Coumadin 5mg tablets and at last visit was instructed to take 12.5 mg daily. Pt confirms taking this dose and adherence to current regimen. Any medication changes: no Any changes in diet (vit K): no Any falls or head trauma: no Any bleeding: no Any SOB, chest pain, swelling: no Refills needed: no Any other changes or concerns: no Review of Systems Assessment Lab Results Component Value Date INR 2.6 (A) 06/09/2022 INR 2.9 (A) 05/18/2022 INR 2.6 (A) 04/28/2022 INR 3.1 (A) 04/14/2022 INR 2.8 (A) 03/31/2022 Plan Dosing as below: Continue taking 12.5 mg daily Next INR Check: 06-23-22 Patient educated on the following: medication adherence Positive ROS findings are: none Georgie was instructed to notify [facility] of any unusual bruising or active/uncontrollable bleeding, medication changes within 24 hours, missed doses, dietary changes, illnesses or hospitalizations, and upcoming surgeries. Patient given verbal instructions. Patient expressed understanding utilizing the teach back method. Time spent 10 Minutes TIFFANIE Mcfarlane, PharmD, BCPS Normal [facility] Progress Note INR received via fax. Normal [facility] Laboratory - Coagulationon 0 05-19-2022 PT Coag (Bld) [Time] 9.0 - [address] [facility] PT Coag (Bld) [Time]on 05-19 INR Coag (PPP) [Relative time] 2.9 {INR} Abnormal 0.9 - 1.1 [facility] Interpretation and review of laboratory results Abnormal [facility] Progress Noteon 05-19-2022 Progress Note [facility] Anticoagulatio n Management [facility] ([facility]) Anticoagulation Clinic [address] [address] Subjective HPI Georgie (1970) had INR completed by patient's own home meter, visit was completed by phone- audio only. 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 and has a goal INR 2.5-3.5. Pt has Coumadin 5mg tablets and at last visit was instructed to take 12.5 mg daily. Pt confirms taking this dose and adherence to current regimen. Any medication changes: no Any changes in diet (vit K): no Any falls or head trauma: no Any bleeding: no Any SOB, chest pain, swelling: no Refills needed: no Any other changes or concerns: no Review of Systems Assessment Lab Results Component Value Date INR 2.9 (A) 05/18/2022 INR 2.6 (A) 04/28/2022 INR 3.1 (A) 04/14/2022 INR 2.8 (A) 03/31/2022 INR 2.4 (A) 03/17/2022 Plan Dosing as below: Continue taking 12.5 mg daily Next INR Check: 06-02-22 Patient educated on the following: medication adherence Positive ROS findings are: none Georgie was instructed to notify [facility] of any unusual bruising or active/uncontrollable bleeding, medication changes within 24 hours, missed doses, dietary changes, illnesses or hospitalizations, and upcoming surgeries. Patient given verbal instructions. Patient expressed understanding utilizing the teach back method. Time spent 10 Minutes TIFFANIE Mcfarlane, LaytonD, [facility] Normal [facility] Progress Note INR Received via fax. [facility] Progress Noteon 04-30-2022 Progress Note [facility] Anticoagulatio n Management [facility] ([facility]) Anticoagulation Clinic [address] [place] [address], [place] [address] Subjective HPI Georgie (1970) had INR completed by patient's own home meter, visit was completed by phone- audio only. 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 and has a goal INR 2.5-3.5. Pt has Coumadin 5mg tablets and at last visit was instructed to take 12.5 mg daily. Pt confirms taking this dose and adherence to current regimen. Any medication changes: yes; taking Tylenol PM Any changes in diet (vit K): no Any falls or head trauma: no Any bleeding: no Any SOB, chest pain, swelling: no Refills needed: no Any other changes or concerns: yes, has upper resp infection and stomach flu - starting to feel better Review of Systems Assessment Lab Results Component Value Date INR 2.6 (A) 04/28/2022 INR 3.1 (A) 04/14/2022 INR 2.8 (A) 03/31/2022 INR 2.4 (A) 03/17/2022 INR 3.7 (A) 03/03/2022 Plan Dosing as below: INR therapeutic, has been stable. Offered to only call pt once a month or if out of range. He was agreeable. Notified him to continue to call with any changes or concerns. Continue taking 12.5 mg daily Next INR Check: 05-12-22 Patient educated on the following: medication adherence and medication interactions - okay to take APAP PM Positive ROS findings are: acute, pt instructed to follow-up with provider - if does not continue to improve Georgie was instructed to notify [facility] of any unusual bruising or active/uncontrollable bleeding, medication changes within 24 hours, missed doses, dietary changes, illnesses or hospitalizations, and upcoming surgeries. Patient given verbal instructions. Patient expressed understanding utilizing the teach back method. Time spent 10 Minutes TIFFANIE Mcfarlane, PharmD, BCACP, CACP [facility] 36on 04-28-2022 36 Patient left message on requesting refill for warfarin 5 mg tablets. [facility] Progress Noteon 04-14-2022 Progress Note INR received via fax. [facility] Progress Note [facility]ticoagulatio [facility] Management Service ([facility]) Anticoagulation Clinic [address] [place] [address], [address] [place] [phone] Subjective HPI Georgie (1970) had INR completed by patient's own home meter, visit was completed by phone- audio only. 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 and has a goal INR 2.5-3.5. Pt has Coumadin 5mg tablets and at last visit was instructed to take 12.5 mg daily. Pt confirms taking this dose and adherence to current regimen. Any medication changes: no Any changes in diet (vit K): no Any falls or head trauma: no Any bleeding: no Any SOB, chest pain, swelling: no Refills needed: no Any other changes or concerns: no Review of Systems Assessment Lab Results Component Value Date INR 3.1 (A) 04/14/2022 INR 2.8 (A) 03/31/2022 INR 2.4 (A) 03/17/2022 INR 3.7 (A) 03/03/2022 INR 3.9 02/17/2022 Plan Dosing as below: Continue taking 12.5 mg daily Next INR Check: 04-28-22 Patient educated on the following: medication adherence Positive ROS findings are: none Georgie was instructed to notify [facility] of any unusual bruising or active/uncontrollable bleeding, medication changes within 24 hours, missed doses, dietary changes, illnesses or hospitalizations, and upcoming surgeries. Patient given verbal instructions. Patient expressed understanding utilizing the teach back method. Time spent 10 Minutes TIFFANIE Mcfarlane, LaytonD, [facility] Progress Noteon 04-01-2022 Progress Note [facility]ticoagulatio [facility] Management [facility] ([facility]) Anticoagulation Clinic [address] [place] [address], [address], [place] [address] Subjective HPI Georgie (1970) had INR completed by patient's own home meter, visit was completed by phone- audio only. 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 and has a goal INR 2.5-3.5. Pt has Coumadin 5mg tablets and at last visit was instructed to take 15 mg x 1 then resume 12.5 mg daily. Pt confirms taking this dose and adherence to current regimen. Any medication changes: no Any changes in diet (vit K): no CBD, Marijuana or THC usage: no Any falls or head trauma: no Any bleeding: no Any SOB, chest pain, swelling: no Refills needed: no Any other changes or concerns: no Review of Systems Assessment Lab Results Component Value Date INR 2.8 (A) 03/31/2022 INR 2.4 (A) 03/17/2022 INR 3.7 (A) 03/03/2022 INR 3.9 02/17/2022 INR 4.2 02/04/2022 Plan Dosing as below: Continue taking 12.5 mg daily Next INR Check: 04-14-22 Patient educated on the following: medication adherence Positive ROS findings are: none Georgie was instructed to notify [facility] of any unusual bruising or active/uncontrollable bleeding, medication changes within 24 hours, missed doses, dietary changes, illnesses or hospitalizations, and upcoming surgeries. Patient given verbal instructions. Patient expressed understanding utilizing the teach back method. Time spent 5 Minutes TIFFANIE Mcfarlane, LaytonD, BCPS [facility] Progress Noteon 03-17-2022 Progress Note [facility]ticoagul[facility] Management Service ([facility]) Anticoagulation Clinic [address] [place] [address], [address], [place] [address] Subjective HPI Georgie (1970) had INR completed by patient's own home INR meter, visit was completed by phone- audio only. 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 and has a goal INR 2.5-3.5. Pt has Coumadin 5mg tablets and at last visit was instructed to take 10mg x1, then 12.5mg daily. Pt confirms taking this dose and adherence to current regimen: yes Pt denies any pertinent medication changes, diet changes, upcoming surgeries, bleeding, falls or head trauma with the following exceptions: None other than having coleslaw 2x in past week this is abnormal for him Review of Systems Denies bleeding Assessment Lab Results Component Value Date INR 2.4 (A) 03/17/2022 INR 3.7 (A) 03/03/2022 INR 3.9 02/17/2022 INR 4.2 02/04/2022 INR 3 01/21/2022 Plan INR is subtherapeutic d/t increased vit. K? Will take 15mg x1 today, then resume 12.5mg daily. Next INR Check: 03/31/22 Patient given verbal instructions. Patient expressed understanding utilizing the teach back method. Time spent 10 Minutes Brooke Solis RN Normal [facility] Progress Note Received INR results via fax. [facility] Progress Noteon 03-03-2022 Progress Note INR received via fax. [facility] Progress Note [facility] Anticoagulatio [facility] Management Service ([facility]) Anticoagulation Clinic [address] [place] [address], [address], [place] [phone] Subjective HPI Georgie (1970) had INR completed by patient's own home meter, visit was completed by phone- audio only. 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 and has a goal INR 2.5-3.5. Pt has Coumadin 5mg tablets and at last visit was instructed to take 12.5 mg daily except 15 mg on Saturdays. Pt confirms taking this dose and adherence to current regimen. Any medication changes: no Any changes in diet (vit K): no CBD, Marijuana or THC usage: no Any falls or head trauma: no Any bleeding: no Any SOB, chest pain, swelling: no Refills needed: no Any other changes or concerns: no Review of Systems Assessment Lab Results Component Value Date INR 3.7 (A) 03/03/2022 INR 3.9 02/17/2022 INR 4.2 02/04/2022 INR 3 01/21/2022 INR 2.1 01/13/2022 Plan Dosing as below: 10 mg x 1 then reduce dose to 12.5mg daily (2.8% permanent dose change since running high recently). Next INR Check: 03-17-2022 Patient educated on the following: medication adherence Positive ROS findings are: none Georgie was instructed to notify [facility] of any unusual bruising or active/uncontrollable bleeding, medication changes within 24 hours, missed doses, dietary changes, illnesses or hospitalizations, and upcoming surgeries. Patient given verbal instructions. Patient expressed understanding utilizing the teach back method. Time spent 10 Minutes Marva Javed MA Staffed with Marychuy Mcgowan PharmD [facility] Laboratory - Coagulationon 0 01-08-2022 INR Coag (Bld) [Relative time] 0.8 {INR} [facility] Work Phone: Comment on above: Critical Value > 4.0 INR, POCon 09-23-2021 INR, POC 2.1 [facility] 0.9-1.1 [facility] Comment on above: Result Comment: Perf ormed by [employer] CLIA ID: [id number] [place], [place] Recommended Anticoagulant Therapy: See Below ----- INR of 2.0 - 3.0: - Prophylaxis of Venous Thrombosis (high-risk surgery) - Treatment of Venous Thrombosis - Treatment of Pulmonary Embolism (includes tissue heart valves, Acute Myocardial Infarction to prevent systemic embolism, Valvular Heart Disease, and Atrial Fibrillation) ----- INR of 2.5 - 3.5: - Mechanical Prosthetic Valves (high risk) - If oral anticoagulant therapy is used to prevent Myocardial Infarction Performed By: #### I NRPC #### POINT OF CARE No Panel Informationon 09-23 Interpretation and review of laboratory results Abnormal [facility] POC INR 2.1 [facility] Comment on above: Performed by [employer] CLIA ID: [id number] [place], [place] Recommended Anticoagulant Therapy: See Below ----- INR of 2.0 - 3.0: - Prophylaxis of Venous Thrombosis (high-risk surgery) - Treatment of Venous Thrombosis - Treatment of Pulmonary Embolism (includes tissue heart valves, Acute Myocardial Infarction to prevent systemic embolism, Valvular Heart Disease, and Atrial Fibrillation) ----- INR of 2.5 - 3.5: - Mechanical Prosthetic Valves (high risk) - If oral anticoagulant therapy is used to prevent Myocardial Infarction [facility] POC INRon 03-12-2020 INR Coag (Bld) [Relative time] 3.8 {INR} [facility] [place] [place] Comment on above: Performed by [employer] CLIA ID: [id number] [place], [place] Recommended Anticoagulant Therapy: See Below ----- INR of 2.0 - 3.0: - Prophylaxis of Venous Thrombosis (high-risk surgery) - Treatment of Venous Thrombosis - Treatment of Pulmonary Embolism (includes tissue heart valves, Acute Myocardial Infarction to prevent systemic embolism, Valvular Heart Disease, and Atrial Fibrillation) ----- INR of 2.5 - 3.5: - Mechanical Prosthetic Valves (high risk) - If oral anticoagulant therapy is used to prevent Myocardial Infarction Interpretation and review of laboratory results Abnormal [place], [place] POC INRon 01-23-2020 INR Coag (Bld) [Relative time] 2.8 {INR} [place] Comment on above: Performed by Al[employer] CLIA ID: [id number] [place], [place] Recommended Anticoagulant Therapy: See Below ----- INR of 2.0 - 3.0: - Prophylaxis of Venous Thrombosis (high-risk surgery) - Treatment of Venous Thrombosis - Treatment of Pulmonary Embolism (includes tissue heart valves, Acute Myocardial Infarction to prevent systemic embolism, Valvular Heart Disease, and Atrial Fibrillation) ----- INR of 2.5 - 3.5: - Mechanical Prosthetic Valves (high risk) - If oral anticoagulant therapy is used to prevent Myocardial Infarction Interpretation and review of laboratory results Abnormal [place], [place] Hematologyon 01-18-2020 INR Coag (Bld) [Relative time] 2.8 {INR} [place] Comment on above: Performed by Alessandro ver[employer]CAR [employer] CLIA ID: [id number] [place], [place] Recommended Anticoagulant Therapy: See Below ----- INR of 2.0 - 3.0: - Prophylaxis of Venous Thrombosis (high-risk surgery) - Treatment of Venous Thrombosis - Treatment of Pulmonary Embolism (includes tissue heart valves, Acute Myocardial Infarction to prevent systemic embolism, Valvular Heart Disease, and Atrial Fibrillation) ----- INR of 2.5 - 3.5: - Mechanical Prosthetic Valves (high risk) - If oral anticoagulant therapy is used to prevent Myocardial Infarction Otheron 01-18-2020 Interpretation and review of laboratory results Abnormal [place], [place] POC INRon 11-30-2019 INR Coag (Bld) [Relative time] 2.7 {INR} [place] Comment on above: Performed by Alessandro [employer] CLIA ID: [id number] [place], [place] Recommended Anticoagulant Therapy: See Below ----- INR of 2.0 - 3.0: - Prophylaxis of Venous Thrombosis (high-risk surgery) - Treatment of Venous Thrombosis - Treatment of Pulmonary Embolism (includes tissue heart valves, Acute Myocardial Infarction to prevent systemic embolism, Valvular Heart Disease, and Atrial Fibrillation) ----- INR of 2.5 - 3.5: - Mechanical Prosthetic Valves (high risk) - If oral anticoagulant therapy is used to prevent Myocardial Infarction Interpretation and review of laboratory results Abnormal [place], [place] POC INRon 08-21-2019 INR Coag (Bld) [Relative time] 3.3 {INR} [place] Comment on above: Performed by Alessandro [employer] CLIA ID: [id number] [place], [place] Recommended Anticoagulant Therapy: See Below ----- INR of 2.0 - 3.0: - Prophylaxis of Venous Thrombosis (high-risk surgery) - Treatment of Venous Thrombosis - Treatment of Pulmonary Embolism (includes tissue heart valves, Acute Myocardial Infarction to prevent systemic embolism, Valvular Heart Disease, and Atrial Fibrillation) ----- INR of 2.5 - 3.5: - Mechanical Prosthetic Valves (high risk) - If oral anticoagulant therapy is used to prevent Myocardial Infarction Interpretation and review of laboratory results Abnormal [place], [place] POC INRon 06-27-2019 INR Coag (Bld) [Relative time] 3.3 {INR} [place], [place] Comment on above: Performed by Alessandro [employer] CLIA ID: [id number] [place], [place] Recommended Anticoagulant Therapy: See Below ----- INR of 2.0 - 3.0: - Prophylaxis of Venous Thrombosis (high-risk surgery) - Treatment of Venous Thrombosis - Treatment of Pulmonary Embolism (includes tissue heart valves, Acute Myocardial Infarction to prevent systemic embolism, Valvular Heart Disease, and Atrial Fibrillation) ----- INR of 2.5 - 3.5: - Mechanical Prosthetic Valves (high risk) - If oral anticoagulant therapy is used to prevent Myocardial Infarction Interpretation and review of laboratory results Abnormal [place], [place] POC INRon 05-26-2019 INR Coag (Bld) [Relative time] 2.6 {INR} [place], [place] Comment on above: Performed by Alessandro [employer] CLIA ID: [id number] [facility] [place] Recommended Anticoagulant Therapy: See Below ----- INR of 2.0 - 3.0: - Prophylaxis of Venous Thrombosis (high-risk surgery) - Treatment of Venous Thrombosis - Treatment of Pulmonary Embolism (includes tissue heart valves, Acute Myocardial Infarction to prevent systemic embolism, Valvular Heart Disease, and Atrial Fibrillation) ----- INR of 2.5 - 3.5: - Mechanical Prosthetic Valves (high risk) - If oral anticoagulant therapy is used to prevent Myocardial Infarction POC INROrdered By: Unknown R esult on 05-26-2019 Interpretation and review of laboratory results Abnormal [employer] Work Phone: POC INR 2.6 High [employer] Work Phone: Comment on above: Performed by [employer] CLIA ID: [id number] [facility] [place] Recommended Anticoagulant Therapy: See Below ----- INR of 2.0 - 3.0: - Prophylaxis of Venous Thrombosis (high-risk surgery) - Treatment of Venous Thrombosis - Treatment of Pulmonary Embolism (includes tissue heart valves, Acute Myocardial Infarction to prevent systemic embolism, Valvular Heart Disease, and Atrial Fibrillation) ----- INR of 2.5 - 3.5: - Mechanical Prosthetic Valves (high risk) - If oral anticoagulant therapy is used to prevent Myocardial Infarction No Panel InformationOrdered By: Unknown Result on 04-28-2019 POC INR 3.9 [facility] [employer] Work Phone: Comment on above: Performed by Alessandro [employer] CLIA ID: [id number] [facility] [place] Recommended Anticoagulant Therapy: See Below ----- INR of 2.0 - 3.0: - Prophylaxis of Venous Thrombosis (high-risk surgery) - Treatment of Venous Thrombosis - Treatment of Pulmonary Embolism (includes tissue heart valves, Acute Myocardial Infarction to prevent systemic embolism, Valvular Heart Disease, and Atrial Fibrillation) ----- INR of 2.5 - 3.5: - Mechanical Prosthetic Valves (high risk) - If oral anticoagulant therapy is used to prevent Myocardial Infarction POC INRon 04-28-2019 INR Coag (Bld) [Relative time] 3.9 {INR} [facility] [place] Comment on above: Performed by Alessandro [employer] CLIA ID: [id number] [facility] [place] Recommended Anticoagulant Therapy: See Below ----- INR of 2.0 - 3.0: - Prophylaxis of Venous Thrombosis (high-risk surgery) - Treatment of Venous Thrombosis - Treatment of Pulmonary Embolism (includes tissue heart valves, Acute Myocardial Infarction to prevent systemic embolism, Valvular Heart Disease, and Atrial Fibrillation) ----- INR of 2.5 - 3.5: - Mechanical Prosthetic Valves (high risk) - If oral anticoagulant therapy is used to prevent Myocardial Infarction POC INROrdered By: Unknown R esult on 04-28-2019 Interpretation and review of laboratory results Abnormal [facility] Work Phone: Hematologyon 03-23-2019 INR Coag (Bld) [Relative time] 3.5 {INR} [place] Comment on above: Performed by [employer] CLIA ID: [id number] [place], [place] Recommended Anticoagulant Therapy: See Below ----- INR of 2.0 - 3.0: - Prophylaxis of Venous Thrombosis (high-risk surgery) - Treatment of Venous Thrombosis - Treatment of Pulmonary Embolism (includes tissue heart valves, Acute Myocardial Infarction to prevent systemic embolism, Valvular Heart Disease, and Atrial Fibrillation) ----- INR of 2.5 - 3.5: - Mechanical Prosthetic Valves (high risk) - If oral anticoagulant therapy is used to prevent Myocardial Infarction No Panel InformationOrdered By: Unknown Result on 03-23-2019 POC INR 3.5 [facility] Work Phone: Comment on above: Performed by Alessandro veriCAR [employer] CLIA ID: [id number] [facility] [place] Recommended Anticoagulant Therapy: See Below ----- INR of 2.0 - 3.0: - Prophylaxis of Venous Thrombosis (high-risk surgery) - Treatment of Venous Thrombosis - Treatment of Pulmonary Embolism (includes tissue heart valves, Acute Myocardial Infarction to prevent systemic embolism, Valvular Heart Disease, and Atrial Fibrillation) ----- INR of 2.5 - 3.5: - Mechanical Prosthetic Valves (high risk) - If oral anticoagulant therapy is used to prevent Myocardial Infarction OtherOrdered By: Unknown Res ult on 03-23-2019 Interpretation and review of laboratory results Abnormal [place], [place] Hematologyon 03-09-2019 INR Coag (Bld) [Relative time] 2.3 {INR} [place], [place] Comment on above: Performed by Alessandro C [facility] CLIA ID: [id number] [place] Recommended Anticoagulant Therapy: See Below ----- INR of 2.0 - 3.0: - Prophylaxis of Venous Thrombosis (high-risk surgery) - Treatment of Venous Thrombosis - Treatment of Pulmonary Embolism (includes tissue heart valves, Acute Myocardial Infarction to prevent systemic embolism, Valvular Heart Disease, and Atrial Fibrillation) ----- INR of 2.5 - 3.5: - Mechanical Prosthetic Valves (high risk) - If oral anticoagulant therapy is used to prevent Myocardial Infarction No Panel InformationOrdered By: Unknown Result on 03-09-2019 POC INR 2.3 [facility] [employer] Phone: Comment on above: Performed by Alessandro veriCAR [facility]ag[facility]k [facility] CLIA ID: [id number] [facility] [place] Recommended Anticoagulant Therapy: See Below ----- INR of 2.0 - 3.0: - Prophylaxis of Venous Thrombosis (high-risk surgery) - Treatment of Venous Thrombosis - Treatment of Pulmonary Embolism (includes tissue heart valves, Acute Myocardial Infarction to prevent systemic embolism, Valvular Heart Disease, and Atrial Fibrillation) ----- INR of 2.5 - 3.5: - Mechanical Prosthetic Valves (high risk) - If oral anticoagulant therapy is used to prevent Myocardial Infarction OtherOrdered By: Unknown Res ult on 03-09-2019 Interpretation and review of laboratory results Abnormal [place], [place] Hematologyon 02-13-2019 INR Coag (Bld) [Relative time] 2.3 {INR} [place], [place] Comment on above: Performed by Alessandro veriCAR [facility] CLIA ID: [id number] [facility] [place] Recommended Anticoagulant Therapy: See Below ----- INR of 2.0 - 3.0: - Prophylaxis of Venous Thrombosis (high-risk surgery) - Treatment of Venous Thrombosis - Treatment of Pulmonary Embolism (includes tissue heart valves, Acute Myocardial Infarction to prevent systemic embolism, Valvular Heart Disease, and Atrial Fibrillation) ----- INR of 2.5 - 3.5: - Mechanical Prosthetic Valves (high risk) - If oral anticoagulant therapy is used to prevent Myocardial Infarction No Panel InformationOrdered By: Unknown Result on 02-13-2019 POC INR 2.3 [facility] [employer] Work Phone: Comment on above: Performed by [employer] [facility] [facility] CLIA ID: [id number] [place] Recommended Anticoagulant Therapy: See Below ----- INR of 2.0 - 3.0: - Prophylaxis of Venous Thrombosis (high-risk surgery) - Treatment of Venous Thrombosis - Treatment of Pulmonary Embolism (includes tissue heart valves, Acute Myocardial Infarction to prevent systemic embolism, Valvular Heart Disease, and Atrial Fibrillation) ----- INR of 2.5 - 3.5: - Mechanical Prosthetic Valves (high risk) - If oral anticoagulant therapy is used to prevent Myocardial Infarction OtherOrdered By: Unknown Res ult on 02-13-2019 Interpretation and review of laboratory results Abnormal [place], [place] Hematologyon 01-16-2019 INR Coag (Bld) [Relative time] 3.0 {INR} [place], [place] Comment on above: Performed by [employer] [facility] CLIA ID: [id number] [facility] [place] Recommended Anticoagulant Therapy: See Below ----- INR of 2.0 - 3.0: - Prophylaxis of Venous Thrombosis (high-risk surgery) - Treatment of Venous Thrombosis - Treatment of Pulmonary Embolism (includes tissue heart valves, Acute Myocardial Infarction to prevent systemic embolism, Valvular Heart Disease, and Atrial Fibrillation) ----- INR of 2.5 - 3.5: - Mechanical Prosthetic Valves (high risk) - If oral anticoagulant therapy is used to prevent Myocardial Infarction No Panel InformationOrdered By: Unknown Result on 01-16-2019 POC INR 3.0 [facility] [employer] Work Phone: Comment on above: Performed by [employer] [facility] [facility] CLIA ID: [id number] [facility] [place] Recommended Anticoagulant Therapy: See Below ----- INR of 2.0 - 3.0: - Prophylaxis of Venous Thrombosis (high-risk surgery) - Treatment of Venous Thrombosis - Treatment of Pulmonary Embolism (includes tissue heart valves, Acute Myocardial Infarction to prevent systemic embolism, Valvular Heart Disease, and Atrial Fibrillation) ----- INR of 2.5 - 3.5: - Mechanical Prosthetic Valves (high risk) - If oral anticoagulant therapy is used to prevent Myocardial Infarction OtherOrdered By: Unknown Res ult on 01-16-2019 Interpretation and review of laboratory results Abnormal [place], [place] Hematologyon 12-16-2018 INR Coag (Bld) [Relative time] 2.8 {INR} [place], [place] Comment on above: Performed by Alessandro veriCAR [facility] CLIA ID: [id number] [place] Recommended Anticoagulant Therapy: See Below ----- INR of 2.0 - 3.0: - Prophylaxis of Venous Thrombosis (high-risk surgery) - Treatment of Venous Thrombosis - Treatment of Pulmonary Embolism (includes tissue heart valves, Acute Myocardial Infarction to prevent systemic embolism, Valvular Heart Disease, and Atrial Fibrillation) ----- INR of 2.5 - 3.5: - Mechanical Prosthetic Valves (high risk) - If oral anticoagulant therapy is used to prevent Myocardial Infarction No Panel InformationOrdered By: Unknown Result on 12-16-2018 POC INR 2.8 [facility] [employer] Phone: Comment on above: Performed by Alessandro veriCAR [facility] CLIA ID: [id number] [place] Recommended Anticoagulant Therapy: See Below ----- INR of 2.0 - 3.0: - Prophylaxis of Venous Thrombosis (high-risk surgery) - Treatment of Venous Thrombosis - Treatment of Pulmonary Embolism (includes tissue heart valves, Acute Myocardial Infarction to prevent systemic embolism, Valvular Heart Disease, and Atrial Fibrillation) ----- INR of 2.5 - 3.5: - Mechanical Prosthetic Valves (high risk) - If oral anticoagulant therapy is used to prevent Myocardial Infarction OtherOrdered By: Unknown Res ult on 12-16-2018 Interpretation and review of laboratory results Abnormal [place], [place] Established Visit (Otolaryng ology)on 11-25-2018 Established Visit (Otolaryngology) Diagnoses/Problems Epistaxis, recurrent (784.7) (R04.0) Nasal dryness (478.19) (J34.89) Anticoagulated (V58.61) (Z79.01) Patient Discussion/Summary Use AYR nasal saline gel and mupirocin ointment as needed Fu as needed NOSE CARE and NOSEBLEED PREVENTION - Do not stick anything in your nose other than the medicine as noted below. DO NOT pick your nose as this will cause the bleeding - We recommended the patient use a humidifier in the bedroom and in the house. - We discussed nosebleed prevention and acute treatment - Afrin or oxymetazoline spray, 2 sprays in each nostril for bleeding, apply pressure for 10 minutes across the soft part of the nose (pinch your nostrils together). if bleeding occurs reapply for another 10 minutes. If this doesn't work then call our office. Provider Impressions ASSESSMENT: 48 year old male anticoagulation with epistaxis localized to left anterior septum s/p silver nitrate cautery in office 09/29/18 11/25/18 - bleeds stopped over last month but nasal dryness noted today, no nasal hygeine measures PLAN: - Continue mupirocin ointment as needed - We recommended the patient use a nasal saline gel - We recommend you to avoid heavy nose blowing - Follow up as needed Referring Provider: Christos HARRIS, Brandon Tamayo I will provide a report to the referring provider via the electronic medical record or [place] mail. I spent greater than 15 total minutes in the patient's direct [id number] care, of which at least 50% were spent on patient counseling, description of the diagnosis and findings, treatment planning and answering patient questions related to the disease process. Brandon Sher MD Division of Rhinology, Sinus, and Skull Base Surgery Chief Complaint Visit For: Other 2 Month f/u sinus History of Present Illness 48 year old male with epistaxis localized to left anterior septum s/p silver nitrate cautery in office 09/29/18. He continued to have nosebleeds for several days. He was advised to use mupirocin ointment 11/24/18 - pt reports he experienced a nose bleed for a few days that resolved. This occurred a couple days after his cautery last office visit He is no longer using Mupirocin ointment. He notes no nosebleeds over the last few weeks and is very happy about this. Per prior note: GEORGIE ELIZABETH is a 48 year old male who presents for evaluation of epistaxis or nosebleeds that started on the left side 6 hours ago. The nosebleeds generally last 1 hour and stop with pressure (has nose clips) - [place] saline mist. Prior intervention for nasal bleeding includes . The patient has no history of epistaxis. The last episode began on the left side about ago. The patient has been to the ER for the nosebleeds. The nose has not been cauterized in the past. Patient reports taking the following anticoagulants/antiplatele t agents: Warfarin and 81 mg ASA No hx of nasal surgery or trauma. No history of uncontrolled hypertension. Pt has no history of significant exposure to toxic fumes, nickel, or wood dust. Review of Systems Negative for constitutional, eyes, cardiac, pulmonary, hepatic, renal, digestive, hematologic, epileptic, syncopal, musculo-skeletal, mental health, integumentary, hypertensive, lipid, arthritic, diabetic, thyroid or neurologic disorders (except as listed in the HPI, PMH and Problem List). Constitutional: no fever, not feeling tired, no recent weight gain and no recent weight loss. Eyes: no eye pain, no double vision and no itching of the eyes. ENMT: no difficulty with hearing, no hearing loss, no pain in the ear, no vertigo, no tinnitus, the ears do not feel full, no discharge from the ears, no nosebleeds, no nasal congestion, no rhinorrhea, no sinus pressure, no nasal blockage/obstruction, no snoring, no postnasal drip, no sore throat, no hoarseness, the gums were not bleeding, no dry mouth, no dysphagia and no mouth ulcers. Cardiovascular: no history of murmur, no chest pain, no palpitations and no lower extremity edema. Respiratory: no shortness of breath, no dyspnea during exertion, no wheezing, not coughing up sputum and not coughing up blood. Gastrointestinal: no heartburn, no vomiting, no change in appetite and no pain on swallowing. Genitourinary: no dysuria and no difficulty urinating. Musculoskeletal: no arthralgias and no myalgias. Integumentary: no rashes, no skin lesions, no itching, no dry skin and no unusual growth on the skin. Neurological: no fainting, no headache, no numbness, no convulsions and no weakness. Psychiatric: no anxiety and no depression. Endocrine: no increased thirst. Hematologic/Lymphatic: no swollen glands, no tendency for easy bleeding and no tendency for easy bruising. ENT and Constitutional systems have been reviewed and are negative for complaint except what is stated in the HPI and/or Past Medical History. Active Problems Anticoagulated (V58.61) (Z79.01) Epistaxis, recurrent (784.7) (R04.0) Nasal dryness (478.19) (J34.89) Past Medical History H/O: depression (V11.8) (Z86.59) History of high cholesterol (V12.29) (Z86.39) History of sleep apnea (V13.89) (Z86.69) Surgical History History of Heart surgery History of prior surgery Urethral stricture repair 01/2015 History of Tonsillectomy Family History Family history of Heart trouble Social History Lives independently (V49.89) (Z78.9) Never a smoker No illicit drug use Rarely consumes alcohol (V49.89) (Z78.9) Single Allergies codeine Recorded By: Roberto Vu; 09/29/2018 12:22:59 PM Current Meds Medication NameInstruction Allopurinol 100 MG Oral Tablet Aspirin Adult Low Strength 81 MG Oral Tablet Delayed Release Metoprolol Succinate ER 50 MG Oral Tablet Extended Release 24 Hour Mupirocin 2 % External OintmentAPPLY A QUARTER SIZED AMOUNT to the pad of your finger and then apply to EACH NOSTRIL 3 TIMES DAILY. Rosuvastatin Calcium 10 MG Oral Tablet Warfarin Sodium 5 MG Oral Tablet Physical Exam General: this is a healthy appearing male who appears stated age. The patient is alert and appropriately verbally conversant without hoarseness. Face: The face was inspected and no cutaneous masses or lesions were visualized. There was no erythema or edema noted. Facial movement was symmetric without weakness. No skin lesions were detected. There was no sinus tenderness elicited. The parotid and submandibular glands were normal to palpation. Eyes: Extra-ocular muscle function was intact. No nystagmus was observed. Pupils were equal. Cranial Nerves: Cranial nerves II, III, IV, and were noted to be intact via extra-ocular muscle movement testing. Cranial nerve VII noted to be intact and symmetric by facial movement. Cranial nerve VIII was tested with whispered voice examination and revealed symmetric hearing. Cranial nerves IX and X noted to be intact by gag reflex and palatal movement. Cranial nerve XII noted to be intact by active and symmetric tongue movement. Nose: Examination of the nose revealed the nasal dorsum to be midline. Intranasal exam reveals the septum is dry bilaterally, with small left side deviation. Prior cautery area is scarred in well. The inferior turbinates were with*out abnormality. no masses, polyps, mucopus, or other lesion on anterior rhinoscopy. CV: peripheral perfusion intact, no cyanosis, clubbing or edema of extremities. Respiratory: Normal inspiration and expiration and chest wall expansion, no use of accessory muscles to breathe, no stridor or stertor. Signatures Electronically signed by : Brandon Sher MD; Nov 25 2018 10:23AM EST (Author) [facility] [place] Hematologyon 11-11-2018 INR Coag (Bld) [Relative time] 2.7 {INR} [facility] [place], [place] Comment on above: Performed by [employer] CLIA ID: [id number] [place] Recommended Anticoagulant Therapy: See Below ----- INR of 2.0 - 3.0: - Prophylaxis of Venous Thrombosis (high-risk surgery) - Treatment of Venous Thrombosis - Treatment of Pulmonary Embolism (includes tissue heart valves, Acute Myocardial Infarction to prevent systemic embolism, Valvular Heart Disease, and Atrial Fibrillation) ----- INR of 2.5 - 3.5: - Mechanical Prosthetic Valves (high risk) - If oral anticoagulant therapy is used to prevent Myocardial Infarction No Panel InformationOrdered By: Unknown Result on 11-11-2018 POC INR 2.7 [facility] [employer] Work Phone: Comment on above: Performed by [employer] [facility] CLIA ID: [id number] [place] Recommended Anticoagulant Therapy: See Below ----- INR of 2.0 - 3.0: - Prophylaxis of Venous Thrombosis (high-risk surgery) - Treatment of Venous Thrombosis - Treatment of Pulmonary Embolism (includes tissue heart valves, Acute Myocardial Infarction to prevent systemic embolism, Valvular Heart Disease, and Atrial Fibrillation) ----- INR of 2.5 - 3.5: - Mechanical Prosthetic Valves (high risk) - If oral anticoagulant therapy is used to prevent Myocardial Infarction OtherOrdered By: Unknown Res ult on 11-11-2018 Interpretation and review of laboratory results Abnormal [place], [place] Established Visit (Otolaryng ology)on 11-08-2018 Established Visit (Otolaryngology) No report was sent [facility] H[facility] 10-14-2018 INR Coag (Bld) [Relative time] 3.0 {INR} [place], [place] Comment on above: Performed by Alessandro C [facility] CLIA ID: [id number] [place] Recommended Anticoagulant Therapy: See Below ----- INR of 2.0 - 3.0: - Prophylaxis of Venous Thrombosis (high-risk surgery) - Treatment of Venous Thrombosis - Treatment of Pulmonary Embolism (includes tissue heart valves, Acute Myocardial Infarction to prevent systemic embolism, Valvular Heart Disease, and Atrial Fibrillation) ----- INR of 2.5 - 3.5: - Mechanical Prosthetic Valves (high risk) - If oral anticoagulant therapy is used to prevent Myocardial Infarction No Panel InformationOrdered By: Unknown Result on 10-14-2018 POC INR 3.0 [facility] [employer] Phone: Comment on above: Performed by Alessandro C [facility] CLIA ID: [id number] [place] Recommended Anticoagulant Therapy: See Below ----- INR of 2.0 - 3.0: - Prophylaxis of Venous Thrombosis (high-risk surgery) - Treatment of Venous Thrombosis - Treatment of Pulmonary Embolism (includes tissue heart valves, Acute Myocardial Infarction to prevent systemic embolism, Valvular Heart Disease, and Atrial Fibrillation) ----- INR of 2.5 - 3.5: - Mechanical Prosthetic Valves (high risk) - If oral anticoagulant therapy is used to prevent Myocardial Infarction OtherOrdered By: Unknown Res ult on 10-14-2018 Interpretation and review of laboratory results Abnormal [place], [place] Chart Updateon 10-04-2018 Chart Update Active Problems Anticoagulated (V58.61) (Z79.01) Epistaxis, recurrent (784.7) (R04.0) Nasal dryness (478.19) (J34.89) Diagnoses/Problems Epistaxis, recurrent (784.7) (R04.0) Chart Update Progress Note Free Text_UH: Patient called and says nose bleeds are almost as bad as before. Takes about 45 minutes to stop. Whenever he goes to the ED in [place], they never do anything for him. He has been using mupurocin ointment 3 times a day but wasn't putting the mupurocin on his septum so he's going to start doing that (he was applying it laterally). We also talked about refraining from rubbing the nose in addition to not blowing. We also discussed packing the front part of his so he doesn't have to hold his nose so long and that he should wet the pack before removing. Finally, recommended going to [facility] ED to see ENT resident can reconditioner. He is hoping to avoid this. If the nose bleeds don't get better this week, he's going to call on Wednesday to get in to clinic next week. Agree with note above by Dr. Santillan Signatures Electronically signed by : Brandon Sher MD; Oct 04 2018 8:02AM EST (Author) [facility] Initial Visit (Otolaryngolog y)on 09-30-2018 Initial Visit (Otolaryngology) Diagnoses/Problems Epistaxis, recurrent (784.7) (R04.0) Nasal dryness (478.19) (J34.89) Anticoagulated (V58.61) (Z79.01) Orders Start: Mupirocin 2 % External Ointment; APPLY A QUARTER SIZED AMOUNT to the pad of your finger and then apply to EACH NOSTRIL 3 TIMES DAILY Rx By: Brandon Sher; Dispense: 0 Days ; #:1 X 22 GM Tube; Refill: 3;For: Epistaxis, recurrent; MEG = N; Verified Transmission to [id number]; Last Updated By: System, [employer]; 09/29/2018 12:42:01 PM Patient Discussion/Summary NOSE CARE and NOSEBLEED PREVENTION - Do not stick anything in your nose other than the medicine as noted below. DO NOT pick your nose as this will cause the bleeding - No noseblowing for 2 weeks. - Begin mupirocin ointment 3 times daily FOR 4 WEEKS. Use the pads of your fingers to apply the ointment and then sniff back gently. Do not use a cue tip or finger nail to place the ointment as this can cause further trauma. IF THE PRESCRIBED OINTMENT IS TOO EXPENSIVE THEN JUST USE OVER THE COUNTER BACITRACIN OR TRIPLE ANTIBIOTIC OINTMENT. - We recommended the patient use a humidifier in the bedroom and in the house. - We discussed nosebleed prevention and acute treatment - Afrin or oxymetazoline spray, 2 sprays in each nostril for bleeding, apply pressure for 10 minutes across the soft part of the nose (pinch your nostrils together). if bleeding occurs reapply for another 10 minutes. If this doesn't work then call our office. Provider Impressions ASSESSMENT: 48 year old male with epistaxis localized to left anterior septum s/p silver nitrate cautery in office 09/29/18 PLAN: - Begin mupirocin ointment 3 times daily for 4 weeks and prn, apply to anterior nares bilaterally. Use pad of finger. - We recommended the patient use a humidifier in the bedroom and in the house - Patient instructed to use [place] nasal spray, 2 sprays four or more times daily to each nostril. Also advised to use nasal saline gel at least 3-4 times per day. - Discussed epistaxis prevention and acute treatment - Afrin spray PRN for bleeding, apply pressure for 10 minutes if bleeding occurs. - Follow up in ENT clinic in one month Referring Provider: Christos HARRIS, Brandon Pace will provide a report to the referring provider via the electronic medical record or [place] mail. Brandon Sher MD Division of Rhinology, Sinus, and Skull Base Surgery Chief Complaint Epistaxis Nosebleeds History of Present Illness GEORGIE ELIZABETH is a 48 year old male who presents for evaluation of epistaxis or nosebleeds that started on the left side 6 hours ago. The nosebleeds generally last 1 hour and stop with pressure (has nose clips) - [place] saline mist. Prior intervention for nasal bleeding includes . The patient has no history of epistaxis. The last episode began on the left side about ago. The patient has been to the ER for the nosebleeds. The nose has not been cauterized in the past. Patient reports taking the following anticoagulants/antiplatele t agents: Warfarin and 81 mg ASA No hx of nasal surgery or trauma. No history of uncontrolled hypertension. Pt has no history of significant exposure to toxic fumes, nickel, or wood dust. Review of Systems Review of Systems: Negative for constitutional, eyes, cardiac, pulmonary, hepatic, renal, digestive, hematologic, epileptic, syncopal, musculo-skeletal, mental health, integumentary, hypertensive, lipid, arthritic, diabetic, thyroid or neurologic disorders (except as listed in the HPI, PMH and Problem List). Constitutional: no fever, not feeling tired, no recent weight gain and no recent weight loss. Eyes: no eye pain, no double vision and no itching of the eyes. ENMT: no difficulty with hearing, no hearing loss, no pain in the ear, no vertigo, no tinnitus, the ears do not feel full, no discharge from the ears, no nosebleeds, no nasal congestion, no rhinorrhea, no sinus pressure, no nasal blockage/obstruction, no snoring, no postnasal drip, no sore throat, no hoarseness, the gums were not bleeding, no dry mouth, no dysphagia and no mouth ulcers. Cardiovascular: no history of murmur, no chest pain, no palpitations and no lower extremity edema. Respiratory: no shortness of breath, no dyspnea during exertion, no wheezing, not coughing up sputum and not coughing up blood. Gastrointestinal: no heartburn, no vomiting, no change in appetite and no pain on swallowing. Genitourinary: no dysuria and no difficulty urinating. Musculoskeletal: no arthralgias and no myalgias. Integumentary: no rashes, no skin lesions, no itching, no dry skin and no unusual growth on the skin. Neurological: no fainting, no headache, no numbness, no convulsions and no weakness. Psychiatric: no anxiety and no depression. Endocrine: no increased thirst. Hematologic/Lymphatic: no swollen glands, no tendency for easy bleeding and no tendency for easy bruising. All other systems have been reviewed and are negative for complaint. Past Medical History H/O: depression (V11.8) (Z86.59) History of high cholesterol (V12.29) (Z86.39) History of sleep apnea (V13.89) (Z86.69) Surgical History History of Heart surgery History of prior surgery Urethral stricture repair 01/2015 History of Tonsillectomy Family History Family history of Heart trouble Social History Lives independently (V49.89) (Z78.9) Never a smoker No illicit drug use Rarely consumes alcohol (V49.89) (Z78.9) Single Allergies codeine Recorded By: Roberto Vu; 09/29/2018 12:22:59 PM Vitals Vital Signs Recorded: [id number] 12:22PM Heart Rate90 Oauseinagyw46 Vhmcugfd145 Kdyikqers86 Height6 ft 5 in Ynypyx512 lb BMI Ecrfsznlrd37.7 BSA Calculated2.43 Physical Exam General: this is a healthy appearing male who appears stated age. The patient is alert and appropriately verbally conversant without hoarseness. Face: The face was inspected and no cutaneous masses or lesions were visualized. There was no erythema or edema noted. Facial movement was symmetric without weakness. No skin lesions were detected. There was no sinus tenderness elicited. The parotid and submandibular glands were normal to palpation. Eyes: Extra-ocular muscle function was intact. No nystagmus was observed. Pupils were equal. Cranial Nerves: Cranial nerves II, III, IV, and were noted to be intact via extra-ocular muscle movement testing. Cranial nerve VII noted to be intact and symmetric by facial movement. Cranial nerve VIII was tested with whispered voice examination and revealed symmetric hearing. Cranial nerves IX and X noted to be intact by gag reflex and palatal movement. Cranial nerve XII noted to be intact by active and symmetric tongue movement. Nose: Examination of the nose revealed the nasal dorsum to be midline. Intranasal exam reveals the septum is deviated. The inferior turbinates were with*out abnormality. no masses, polyps, mucopus, or other lesion on anterior rhinoscopy. See below procedure note as applicable for further exam. Oral Cavity: Examination of the oral cavity revealed no mass lesions nor infection. The palate was noted to be intact without evidence of clefting. The tongue exhibited normal mobility. Mucosa was moist without lesion. The lips were free of lesion. Gums were free of inflammation. Dentition: normal without obvious infection or inflammation Oropharynx: The oral pharynx was free of mass lesion or mucosal abnormality. The palate was noted to be without lesion. The uvula was normal appearing. The tonsils were normal appearing or surgically absent. Ears: Examination of the ears revealed that the auricles were normally formed with no lesions. The external auditory canals were cleaned of any obstructing cerumen. The tympanic membranes were intact and freely mobile to pneumatoscopy. There are no significant retraction pockets. There is no inflammation visualized. No effusions are seen. Neck: Visualization and palpation of the neck revealed no mass lesions, no thyromegaly or thyroid masses. No skin lesions or inflammatory processes were detected. The cervical musculature was normal to palpation. Lymphatics (cervical): There were no palpable lymph nodes in the posterior triangle, submandibular triangle, jugulodigastric region, or central neck. CV: peripheral perfusion intact, no cyanosis, clubbing or edema of extremities. Respiratory: Normal inspiration and expiration and chest wall expansion, no use of accessory muscles to breathe, no stridor or stertor. Procedure: Control of nasal hemorrhage via cautery Indication: Epistaxis Attestation: Given patient's history and physical examination, the above procedure was recommended. We reviewed the risks, benefits, alternatives, and what to expect from the procedure and informed consent was obtained from the patient. The patient wished to proceed. I was present for the entirety of the procedure. Findings: After topical decongestion with Afrin spray and topical anesthesia via 4% lidocaine, the area of bleeding along the left septum was visualized. This area was then cauterized with a silver nitrate stick x 2. After appropriate cautery all bleeding was controlled. The area then had a thin layer of Surgicel placed over this. There were no complications and the patient tolerated the procedure well. Signatures Electronically signed by : Brandon Sher MD; Sep 29 2018 11:59PM EST (Author) [facility] Hematologyon 09-27-2018 INR Coag (Bld) [Relative time] 2.1 {INR} [place], [place] Comment on above: Performed by Alessandro Valencia [facility] CLIA ID: [id number] [place], [place] Recommended Anticoagulant Therapy: See Below ----- INR of 2.0 - 3.0: - Prophylaxis of Venous Thrombosis (high-risk surgery) - Treatment of Venous Thrombosis - Treatment of Pulmonary Embolism (includes tissue heart valves, Acute Myocardial Infarction to prevent systemic embolism, Valvular Heart Disease, and Atrial Fibrillation) ----- INR of 2.5 - 3.5: - Mechanical Prosthetic Valves (high risk) - If oral anticoagulant therapy is used to prevent Myocardial Infarction No Panel InformationOrdered By: Unknown Result on 09-27-2018 POC INR 2.1 [facility] Work Phone: Comment on above: Performed by Alessandro C [facility] CLIA ID: [id number] [facility] [place] Recommended Anticoagulant Therapy: See Below ----- INR of 2.0 - 3.0: - Prophylaxis of Venous Thrombosis (high-risk surgery) - Treatment of Venous Thrombosis - Treatment of Pulmonary Embolism (includes tissue heart valves, Acute Myocardial Infarction to prevent systemic embolism, Valvular Heart Disease, and Atrial Fibrillation) ----- INR of 2.5 - 3.5: - Mechanical Prosthetic Valves (high risk) - If oral anticoagulant therapy is used to prevent Myocardial Infarction OtherOrdered By: Unknown Res ult on 09-27-2018 Interpretation and review of laboratory results Abnormal [place], [place] Hematologyon 09-08-2018 INR Coag (Bld) [Relative time] 2.3 {INR} [place], [place] Comment on above: Performed by [employer] [facility] CLIA ID: [id number] [place], [place] Recommended Anticoagulant Therapy: See Below ----- INR of 2.0 - 3.0: - Prophylaxis of Venous Thrombosis (high-risk surgery) - Treatment of Venous Thrombosis - Treatment of Pulmonary Embolism (includes tissue heart valves, Acute Myocardial Infarction to prevent systemic embolism, Valvular Heart Disease, and Atrial Fibrillation) ----- INR of 2.5 - 3.5: - Mechanical Prosthetic Valves (high risk) - If oral anticoagulant therapy is used to prevent Myocardial Infarction No Panel InformationOrdered By: Unknown Result on 09-08-2018 POC INR 2.3 [facility] Work Phone: Comment on above: Performed by Alessandro veriCAR [facility] CLIA ID: [id number] [facility] [place] Recommended Anticoagulant Therapy: See Below ----- INR of 2.0 - 3.0: - Prophylaxis of Venous Thrombosis (high-risk surgery) - Treatment of Venous Thrombosis - Treatment of Pulmonary Embolism (includes tissue heart valves, Acute Myocardial Infarction to prevent systemic embolism, Valvular Heart Disease, and Atrial Fibrillation) ----- INR of 2.5 - 3.5: - Mechanical Prosthetic Valves (high risk) - If oral anticoagulant therapy is used to prevent Myocardial Infarction OtherOrdered By: Unknown Res ult on 09-08-2018 Interpretation and review of laboratory results Abnormal [place], [place] Hematologyon 08-15-2018 INR Coag (Bld) [Relative time] 2.8 {INR} [place], [place] Comment on above: Performed by Alessandro C [facility] CLIA ID: [id number] [place], [place] Recommended Anticoagulant Therapy: See Below ----- INR of 2.0 - 3.0: - Prophylaxis of Venous Thrombosis (high-risk surgery) - Treatment of Venous Thrombosis - Treatment of Pulmonary Embolism (includes tissue heart valves, Acute Myocardial Infarction to prevent systemic embolism, Valvular Heart Disease, and Atrial Fibrillation) ----- INR of 2.5 - 3.5: - Mechanical Prosthetic Valves (high risk) - If oral anticoagulant therapy is used to prevent Myocardial Infarction No Panel InformationOrdered By: Unknown Result on 08-15-2018 POC INR 2.8 [facility] [employer] Work Phone: Comment on above: Performed by Alessandro C [facility] CLIA ID: [id number] [place], [place] Recommended Anticoagulant Therapy: See Below ----- INR of 2.0 - 3.0: - Prophylaxis of Venous Thrombosis (high-risk surgery) - Treatment of Venous Thrombosis - Treatment of Pulmonary Embolism (includes tissue heart valves, Acute Myocardial Infarction to prevent systemic embolism, Valvular Heart Disease, and Atrial Fibrillation) ----- INR of 2.5 - 3.5: - Mechanical Prosthetic Valves (high risk) - If oral anticoagulant therapy is used to prevent Myocardial Infarction OtherOrdered By: Unknown Res ult on 08-15-2018 Interpretation and review of laboratory results Abnormal [facility] IFEANYI Vital Signs Date Time Vital Sign Value Performing Clinician Guille yoo 09-18-2024 03:22-0400 Body height 194.3 cm Sleep Main Work Phone: [facility] 09-18-2024 03:22-0400 Body mass index (BMI) [Ratio] 29.43 kg/m2 Sleep Main Work Phone: [facility] 09-18-2024 03:22-0400 Body weight 111.1 kg Sleep Main Work Phone: [facility] 09-10-2024 11:13-0400 Body mass index (BMI) [Ratio] 29.43 kg/m2 Jasmin Magdaleno 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 Work Phone: [facility] 09-10-2024 11:13-0400 Body temperature 97.39 [degF] Jasmin Magdaleno 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 Work Phone: [facility] 09-10-2024 11:13-0400 Body weight 111.1 kg Jasminfrancis Lundbergk 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 Work Phone: [facility] 09-10-2024 11:13-0400 Diastolic blood pressure 78 mm[Hg] Jasmin Magdaleno 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 Work Phone: [facility] 09-10-2024 11:13-0400 Heart rate 57 /min Jasmin Magdaleno 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 Work Phone: [facility] 09-10-2024 11:13-0400 Respiratory rate 16 /min Jasminfrancis Lundbergk 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 Work Phone: [facility] 09-10-2024 11:13-0400 SaO2% (BldA) [Mass fraction] 97 % Jasmin Lundbergk 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 Work Phone: [facility] 09-10-2024 11:13-0400 Systolic blood pressure 110 mm[Hg] Jasmin Magdaleno 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 Work Phone: [facility] 07-31-2024 13:22-0400 Body height 194.3 cm Magdy Bierut PA- C Work Phone: [facility] 07-31-2024 13:22-0400 Body mass index (BMI) [Ratio] 29.93 kg/m2 Magdy Bierut PA-C Work Phone: [facility] 07-31-2024 13:22-0400 Body temperature 97 [degF] Madgy Bierut PA- C Work Phone: [facility] 07-31-2024 13:22-0400 Body weight 113 kg Magdy Bierut PA- C Work Phone: [facility] 07-31-2024 13:22-0400 Diastolic blood pressure 74 mm[Hg] Magdy Bierut PA-C Work Phone: [facility] 07-31-2024 13:22-0400 Heart rate 72 /min Magdy Bierut PA- C Work Phone: [facility] 07-31-2024 13:22-0400 SaO2% (BldA) [Mass fraction] 98 % Magdy Bierut PA-C Work Phone: [facility] 07-31-2024 13:22-0400 Systolic blood pressure 104 mm[Hg] Magdy Bierut PA-C Work Phone: [facility] 07-07-2024 08:01-0500 Body height 193.04 cm GERONIMO THRASHER Work Phone: [facility] 07-07-2024 08:01-0500 Body mass index (BMI) [Ratio] 29 kg/m2 GERONIMO THRASHER Work Phone: [facility] 07-07-2024 08:01-0500 Body temperature 98.1 [degF] GERONIMO THRASHER Work Phone: [facility] 07-07-2024 08:01-0500 Body weight 108.4 kg GERONIMO THRASHER Work Phone: [facility] 07-07-2024 08:01-0500 Diastolic blood pressure 83 mm[Hg] GERONIMO THRASHER Work Phone: [facility] 07-07-2024 08:01-0500 Heart rate 73 /min GERONIMO THRASHER Work Phone: [facility] 07-07-2024 08:01-0500 Respiratory rate 15 /min GERONIMO THRASHER Work Phone: [facility] 07-07-2024 08:01-0500 SaO2% (BldA) [Mass fraction] 100 % GERONIMO THRASHER Work Phone: [facility] 07-07-2024 08:01-0500 Systolic blood pressure 153 mm[Hg] GERONIMO THRASHER Work Phone: [facility] 06-07-2024 15:19-0500 Body temperature 98 [degF] GERONIMO THRASHER Work Phone: [facility] 06-07-2024 15:19-0500 Diastolic blood pressure 89 mm[Hg] GERONIMO THRASHER Work Phone: [facility] 06-07-2024 15:19-0500 Heart rate 78 /min GERONIMO THRASHER Work Phone: [facility] 06-07-2024 15:19-0500 Respiratory rate 16 /min GERONIMO THRASHER Work Phone: [facility] 06-07-2024 15:19-0500 SaO2% (BldA) [Mass fraction] 98 % GERONIMO THRASHER Work Phone: [facility] 06-07-2024 15:19-0500 Systolic blood pressure 107 mm[Hg] GERONIMO THRASHER Work Phone: [facility] 06-07-2024 04:27-0500 Body mass index (BMI) [Ratio] 30.6 kg/m2 GERONIMO THRASHER Work Phone: [facility] 06-07-2024 04:27-0500 Body weight 114 kg GERONIMO THRASHER Work Phone: [facility] 05-19-2024 12:46-0500 Body height 194.3 cm Janae Tamayo Work Phone: [facility] 05-19-2024 12:46-0500 Body mass index (BMI) [Ratio] 28.83 kg/m2 aJnae Cortes MD Work Phone: [facility] 05-19-2024 12:46-0500 Body weight 108.86 kg Janae Tamayo Work Phone: [facility] 05-19-2024 12:46-0500 Diastolic blood pressure 76 mm[Hg] Janae Cortes MD Work Phone: [facility] 05-19-2024 12:46-0500 Heart rate 64 /min Janae Cortes M D Work Phone: [facility] 05-19-2024 12:46-0500 Respiratory rate 12 /min Janae Cortes M D Work Phone: [facility] 05-19-2024 12:46-0500 SaO2% (BldA) [Mass fraction] 99 % Janae Cortes MD Work Phone: [facility] 05-19-2024 12:46-0500 Systolic blood pressure 114 mm[Hg] Janae Cortes MD Work Phone: [facility] 04-17-2024 13:48-0500 Body height 190.5 cm Gayathri Kalka PA-C Work Phone: [facility] 04-17-2024 13:48-0500 Body mass index (BMI) [Ratio] 30.25 kg/m2 Gayathri Kalka PA-C Work Phone: [facility] 04-17-2024 13:48-0500 Body weight 109.77 kg Gayathri Kalka PA-C Work Phone: [facility] 04-17-2024 13:48-0500 Diastolic blood pressure 70 mm[Hg] Gayathri Kalka PA-C Work Phone: [facility] 04-17-2024 13:48-0500 Heart rate 75 /min Gayathri Kalka PA-C Work Phone: [facility] 04-17-2024 13:48-0500 Systolic blood pressure 114 mm[Hg] Gayathri Kalka PA-C Work Phone: [facility] 04-14-2024 09:37-0500 Body height 191 cm Dina Joyce 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 Work Phone: [facility] 04-14-2024 09:37-0500 Body mass index (BMI) [Ratio] 29.88 kg/m2 Dina ValdiviaIsiah 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 Work Phone: [facility] 04-14-2024 09:37-0500 Body weight 109 kg Dina Joyce 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 Work Phone: [facility] 04-14-2024 09:37-0500 Diastolic blood pressure 84 mm[Hg] Dina Joyce 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 Work Phone: [facility] 04-14-2024 09:37-0500 Heart rate 73 /min Dina Jyoce 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 Work Phone: [facility] 04-14-2024 09:37-0500 Respiratory rate 16 /min Dina Joyce 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 Work Phone: [facility] 04-14-2024 09:37-0500 SaO2% (BldA) [Mass fraction] 98 % Dina Joyce 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 Work Phone: [facility] 04-14-2024 09:37-0500 Systolic blood pressure 126 mm[Hg] Dina Joyce 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 Work Phone: [facility] 10-25-2023 09:30-0400 Body height 193 cm Ramón Tamayo Work Phone: [facility] 10-25-2023 09:30-0400 Body mass index (BMI) [Ratio] 29.21 kg/m2 Ramón Silva MD Work Phone: [facility] 10-25-2023 09:30-0400 Body weight 108.85 kg Ramón Tamayo Work Phone: [facility] 10-01-2023 07:18-0400 Body mass index (BMI) [Ratio] 27.87 kg/m2 Angelo Moomaw 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 Work Phone: [facility] 10-01-2023 07:18-0400 Body temperature 97.11 [degF] Angelo Moomaw 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 Work Phone: [facility] 10-01-2023 07:18-0400 Body weight 106.6 kg Angelo Moomaw 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 Work Phone: [facility] 10-01-2023 07:18-0400 Diastolic blood pressure 80 mm[Hg] Angelo Moomaw 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 Work Phone: [facility] 10-01-2023 07:18-0400 Heart rate 80 /min Angelo Moomaw 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 Work Phone: [facility] 10-01-2023 07:18-0400 Respiratory rate 19 /min Angelo Moomaw 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 Work Phone: [facility] 10-01-2023 07:18-0400 SaO2% (BldA) [Mass fraction] 98 % Angelo Moomaw 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 Work Phone: [facility] 10-01-2023 07:18-0400 Systolic blood pressure 110 mm[Hg] Angelo Moomaw 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 Work Phone: [facility] 09-20-2023 16:10-0400 Body mass index (BMI) [Ratio] 28.05 kg/m2 Jostin Barnes 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 Work Phone: [facility] 09-20-2023 16:10-0400 Body temperature 99 [degF] Jostin Barnes 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 Work Phone: [facility] 09-20-2023 16:10-0400 Body weight 107.3 kg Jostin Barnes 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 Work Phone: [facility] 09-20-2023 16:10-0400 Diastolic blood pressure 72 mm[Hg] Jostin Barnes 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 Work Phone: [facility] 09-20-2023 16:10-0400 Heart rate 79 /min Jostin Barnes 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 Work Phone: [facility] 09-20-2023 16:10-0400 Respiratory rate 16 /min Jostin Barnes 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 Work Phone: [facility] 09-20-2023 16:10-0400 SaO2% (BldA) [Mass fraction] 97 % Jostin Barnes 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 Work Phone: [facility] 09-20-2023 16:10-0400 Systolic blood pressure 110 mm[Hg] Jostin Barnes 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 Work Phone: [facility] 09-13-2023 12:50-0400 Body mass index (BMI) [Ratio] 28.1 kg/m2 Herbie Shultz MD Work Phone: [facility] 09-13-2023 12:50-0400 Body temperature 98.4 [degF] Herbie Shultz MD Work Phone: [facility] 09-13-2023 12:50-0400 Body weight 107.5 kg Herbie Shultz MD Work Phone: [facility] 09-13-2023 12:50-0400 Diastolic blood pressure 72 mm[Hg] Herbie Shultz MD Work Phone: [facility] 09-13-2023 12:50-0400 Heart rate 80 /min Herbie Shultz MD Work Phone: [facility] 09-13-2023 12:50-0400 Respiratory rate 16 /min Herbie Shultz MD Work Phone: [facility] 09-13-2023 12:50-0400 SaO2% (BldA) [Mass fraction] 97 % Herbie Shultz MD Work Phone: [facility] 09-13-2023 12:50-0400 Systolic blood pressure 128 mm[Hg] Herbie Shultz MD Work Phone: [facility] 08-03-2023 13:39-0400 Body height 195.6 cm Christen Cheuvront 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 Work Phone: [facility] 08-03-2023 13:39-0400 Body temperature 97 [degF] Christen Cheuvront 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 Work Phone: [facility] 08-03-2023 13:39-0400 Body weight 106.14 kg Christen Cheuvront 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 Work Phone: [facility] 08-03-2023 13:39-0400 Diastolic blood pressure 73 mm[Hg] Christen Cheuvront 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 Work Phone: [facility] 08-03-2023 13:39-0400 Heart rate 78 /min Christen Cheuvront 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 Work Phone: [facility] 08-03-2023 13:39-0400 Respiratory rate 20 /min Christen Cheuvront 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 Work Phone: [facility] 08-03-2023 13:39-0400 SaO2% (BldA) [Mass fraction] 97 % [facility] 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 Work Phone: [facility] 08-03-2023 13:39-0400 Systolic blood pressure 112 mm[Hg] Christen Cheuvront 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 Work Phone: [facility] 04-20-2023 18:14-0500 Body height 195.58 cm [facility] 04-20-2023 18:14-0500 Body mass index (BMI) [Ratio] 28.3 kg/m2 [facility] 04-20-2023 18:14-0500 Body temperature 98.1 [degF] [facility] 04-20-2023 18:14-0500 Body weight 108.18 kg [facility] 04-20-2023 18:14-0500 Diastolic blood pressure 96 mm[Hg] [facility] 04-20-2023 18:14-0500 Heart rate 91 /min [facility] 04-20-2023 18:14-0500 Respiratory rate 18 /min [facility] 04-20-2023 18:14-0500 SaO2% (BldA) [Mass fraction] 97 % [facility] 04-20-2023 18:14-0500 Systolic blood pressure 107 mm[Hg] [facility] 02-20-2023 15:00-0400 Body temperature 97.59 [degF] Lise Athy PA-C Work Phone: [facility] 02-20-2023 15:00-0400 Body weight 106.14 kg Lise Athy PA-C Work Phone: [facility] 02-20-2023 15:00-0400 Diastolic blood pressure 72 mm[Hg] Lise Athy PA-C Work Phone: [facility] 02-20-2023 15:00-0400 Heart rate 78 /min Lise Athy PA-C Work Phone: [facility] 02-20-2023 15:00-0400 Respiratory rate 16 /min Lise Athy PA-C Work Phone: [facility] 02-20-2023 15:00-0400 SaO2% (BldA) [Mass fraction] 98 % Lise Athy PA-C Work Phone: [facility] 02-20-2023 15:00-0400 Systolic blood pressure 122 mm[Hg] Lise Athy PA-C Work Phone: [facility] 01-13-2023 17:09-0400 Body temperature 101.1 [degF] Xiomara Santos APRN.SHEET METAL WORKER APPRENTICE Work Phone: [facility] 01-13-2023 17:09-0400 Body weight 106.14 kg Xiomara Santos APRN.SHEET METAL WORKER APPRENTICE Work Phone: [facility] 01-13-2023 17:09-0400 Diastolic blood pressure 72 mm[Hg] Xiomara Santos APRN.SHEET METAL WORKER APPRENTICE Work Phone: [facility] 01-13-2023 17:09-0400 Heart rate 96 /min Xiomara Santos APRN.SHEET METAL WORKER APPRENTICE Work Phone: [facility] 01-13-2023 17:09-0400 Respiratory rate 18 /min Xiomara Santos APRN.SHEET METAL WORKER APPRENTICE Work Phone: [facility] 01-13-2023 17:09-0400 SaO2% (BldA) [Mass fraction] 97 % Xiomara Santos APRN.SHEET METAL WORKER APPRENTICE Work Phone: [facility] 01-13-2023 17:09-0400 Systolic blood pressure 122 mm[Hg] Xiomara Santos APRN.SHEET METAL WORKER APPRENTICE Work Phone: [facility] 12-30-2022 19:27-0400 Body temperature 97.3 [degF] Herbie Shultz MD Work Phone: [facility] 12-30-2022 19:27-0400 Body weight 106.14 kg Herbie Shultz MD Work Phone: [facility] 12-30-2022 19:27-0400 Diastolic blood pressure 70 mm[Hg] Herbie Shultz MD Work Phone: [facility] 12-30-2022 19:27-0400 Heart rate 84 /min Herbie Shultz MD Work Phone: [facility] 12-30-2022 19:27-0400 Respiratory rate 16 /min Herbie Shultz MD Work Phone: [facility] 12-30-2022 19:27-0400 SaO2% (BldA) [Mass fraction] 96 % Herbie Shultz MD Work Phone: [facility] 12-30-2022 19:27-0400 Systolic blood pressure 128 mm[Hg] Herbie Shultz MD Work Phone: [facility] 12-01-2022 15:31-0400 Body temperature 98.1 [degF] Jasmin Greene APRN.SHEET METAL WORKER APPRENTICE Work Phone: [facility] 12-01-2022 15:31-0400 Body weight 107.14 kg Jasmin Greene 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 Work Phone: [facility] 12-01-2022 15:31-0400 Diastolic blood pressure 72 mm[Hg] Jasmin Magdaleno 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 Work Phone: [facility] 12-01-2022 15:31-0400 Heart rate 69 /min Jasmin Magdaleno 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 Work Phone: [facility] 12-01-2022 15:31-0400 Respiratory rate 16 /min Jasmin Magdaleno 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 Work Phone: [facility] 12-01-2022 15:31-0400 SaO2% (BldA) [Mass fraction] 95 % Jasmin Magdaleno 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 Work Phone: [facility] 12-01-2022 15:31-0400 Systolic blood pressure 110 mm[Hg] Jasmin Magdaleno 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 Work Phone: [facility] 11-10-2022 13:10-0400 Body temperature 96.8 [degF] Dr. Kyaw Madison Work Phone: [facility] 11-10-2022 13:10-0400 Diastolic blood pressure 68 mm[Hg] Dr. Kyaw Madison Work Phone: [facility] 11-10-2022 13:10-0400 Heart rate 66 /min Dr. Kyaw Madison Work Phone: [facility] 11-10-2022 13:10-0400 Respiratory rate 14 /min Dr. Kyaw Madison Work Phone: [facility] 11-10-2022 13:10-0400 SaO2% (BldA) [Mass fraction] 100 % Dr. Kyaw Madison Work Phone: [facility] 11-10-2022 13:10-0400 Systolic blood pressure 122 mm[Hg] Dr. Kyaw Madison Work Phone: [facility] 11-10-2022 12:47-0400 Inhaled oxygen flow rate 2 L/min Dr. Kyaw Madison Work Phone: [facility] 11-10-2022 11:15-0400 Body height 196.[address] Card Friend Work Phone: [facility] 11-10-2022 11:15-0400 Body mass index (BMI) [Ratio] 28.3 kg/m2 Dr. Card Friend Work Phone: [facility] 11-10-2022 11:15-0400 Body weight 108.[address] Card Friend Work Phone: [facility] 10-19-2022 14:07-0400 Body weight 112.13 kg Yuriy Godios [facility] Work Phone: [facility] 10-19-2022 14:07-0400 Diastolic blood pressure 71 mm[Hg] Yuriy Godios [facility] Work Phone: [facility] 10-19-2022 14:07-0400 Heart rate 67 /min Yuriy Godios [facility] Work Phone: [facility] 10-19-2022 14:07-0400 Systolic blood pressure 127 mm[Hg] Yuriy Godios [facility] Work Phone: [facility] 10-19-2022 10:16-0400 Body height 193 cm Gayathri Kalka PA-C Work Phone: [facility] 10-19-2022 10:16-0400 Body weight 111.13 kg Gayathri Kalka PA-C Work Phone: [facility] 10-19-2022 10:16-0400 Diastolic blood pressure 72 mm[Hg] Gayathri Kalka PA-C Work Phone: [facility] 10-19-2022 10:16-0400 Heart rate 70 /min Gayathri Kalka PA-C Work Phone: [facility] 10-19-2022 10:16-0400 Systolic blood pressure 112 mm[Hg] Gayathri Kalka PA-C Work Phone: [facility] 08-11-2022 18:26-0400 Body temperature 98.2 [degF] Geronimo Pendlebury 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 Work Phone: [facility] 08-11-2022 18:26-0400 Body weight 118.21 kg Geronimolei Bautistalebury 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 Work Phone: [facility] 08-11-2022 18:26-0400 Diastolic blood pressure 72 mm[Hg] Geronimo Pendlebury 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 Work Phone: [facility] 08-11-2022 18:26-0400 Heart rate 79 /min Geronimo Pendlebury 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 Work Phone: [facility] 08-11-2022 18:26-0400 Respiratory rate 18 /min Geronimo Michelelebury 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 Work Phone: [facility] 08-11-2022 18:26-0400 SaO2% (BldA) [Mass fraction] 97 % Geronimo Bautistalebury 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 Work Phone: [facility] 08-11-2022 18:26-0400 Systolic blood pressure 120 mm[Hg] Geronimo Pendlebury 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 Work Phone: [facility] 06-24-2022 13:29-0500 Body height 193 cm Christpapi Cheuvront 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 Work Phone: [facility] 06-24-2022 13:29-0500 Body temperature 96.8 [degF] Christen Cheuvront 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 Work Phone: [facility] 06-24-2022 13:29-0500 Body weight 116.57 kg Christen Cheuvront 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 Work Phone: [facility] 06-24-2022 13:29-0500 Diastolic blood pressure 85 mm[Hg] Christen Cheuvront 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 Work Phone: [facility] 06-24-2022 13:29-0500 Heart rate 72 /min Christen Cheuvront 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 Work Phone: [facility] 06-24-2022 13:29-0500 Respiratory rate 20 /min [facility] Nunn 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 Work Phone: [facility] 06-24-2022 13:29-0500 SaO2% (BldA) [Mass fraction] 93 % Cecy Steinuvcecilia 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 Work Phone: [facility] 06-24-2022 13:29-0500 Systolic blood pressure 129 mm[Hg] [facility] Foundation[facility] Steinuvcecilia 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 Work Phone: [facility] 06-19-2022 13:00-0500 Body height 194 cm Dina Older 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 Work Phone: [facility] 06-19-2022 13:00-0500 Body weight 116.57 kg Dina Older 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 Work Phone: [facility] 06-19-2022 13:00-0500 Diastolic blood pressure 60 mm[Hg] Dina Older 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 Work Phone: [facility] 06-19-2022 13:00-0500 Heart rate 80 /min Dina Older 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 Work Phone: [facility] 06-19-2022 13:00-0500 Respiratory rate 18 /min Dina Older 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 Work Phone: [facility] 06-19-2022 13:00-0500 Systolic blood pressure 96 mm[Hg] Dina Older 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 Work Phone: [facility] 04-20-2022 17:56-0500 Body temperature 97.9 [degF] Herbie Shultz MD Work Phone: [facility] 04-20-2022 17:56-0500 Body weight 117.94 kg Herbie Shultz MD Work Phone: [facility] 04-20-2022 17:56-0500 Diastolic blood pressure 84 mm[Hg] Herbie Shultz MD Work Phone: [facility] 04-20-2022 17:56-0500 Heart rate 78 /min Herbie Shultz MD Work Phone: [facility] 04-20-2022 17:56-0500 Respiratory rate 16 /min Herbie Shultz MD Work Phone: [facility] 04-20-2022 17:56-0500 SaO2% (BldA) [Mass fraction] 97 % Herbie Shultz MD Work Phone: [facility] 04-20-2022 17:56-0500 Systolic blood pressure 136 mm[Hg] Herbie Shultz MD Work Phone: [facility] 04-17-2022 19:47-0500 Body temperature 98.71 [degF] Chio Praisler-Wood 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 Work Phone: [facility] 04-17-2022 19:47-0500 Body weight 118.66 kg Chio Praisler-Wood 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 Work Phone: [facility] 04-17-2022 19:47-0500 Diastolic blood pressure 72 mm[Hg] Chio Praisler-Wood 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 Work Phone: [facility] 04-17-2022 19:47-0500 Heart rate 86 /min Chio Praisler-Wood 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 Work Phone: [facility] 04-17-2022 19:47-0500 Respiratory rate 18 /min Chio Praisler-Wood 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 Work Phone: [facility] 04-17-2022 19:47-0500 SaO2% (BldA) [Mass fraction] 97 % Chio Praisler-Wood 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 Work Phone: [facility] 04-17-2022 19:47-0500 Systolic blood pressure 124 mm[Hg] Chio Praisler-Wood 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 Work Phone: [facility] 04-10-2022 11:42-0500 Body height 195.6 cm Janae Tamayo Work Phone: [facility] 04-10-2022 11:42-0500 Body weight 116.57 kg Janae Tamayo Work Phone: [facility] 04-10-2022 11:42-0500 Diastolic blood pressure 75 mm[Hg] Janae Cortes MD Work Phone: [facility] 04-10-2022 11:42-0500 Heart rate 74 /min Janae Tamayo Work Phone: [facility] 04-10-2022 11:42-0500 SaO2% (BldA) [Mass fraction] 99 % Janae Cortes MD Work Phone: [facility] 04-10-2022 11:42-0500 Systolic blood pressure 102 mm[Hg] Janae Cortes MD Work Phone: [facility] 01-08-2022 07:19-0400 Body temperature 97.3 [degF] Dr. Kyaw Madison Work Phone: [facility] Work Phone: 01-08-2022 07:19-0400 Diastolic blood pressure 82 mm[Hg] Dr. Kyaw Madison Work Phone: [facility] Work Phone: 01-08-2022 07:19-0400 Heart rate 61 /min Dr. Kyaw Madison Work Phone: [facility] Work Phone: 01-08-2022 07:19-0400 Respiratory rate 18 /min Dr. Kyaw Madison Work Phone: [facility] Work Phone: 01-08-2022 07:19-0400 SaO2% (BldA) [Mass fraction] 100 % Dr. Kyaw Madison Work Phone: [facility] Work Phone: 01-08-2022 07:19-0400 Systolic blood pressure 122 mm[Hg] Dr. Kyaw Madison Work Phone: [facility] Work Phone: 01-08-2022 05:44-0400 Body height 195.[address] Kyaw Madison Work Phone: [facility] Work Phone: 01-08-2022 05:44-0400 Body mass index (BMI) [Ratio] 30.2 kg/m2 Dr. Kyaw Madison Work Phone: [facility] Work Phone: 01-08-2022 05:44-0400 Body weight 115.[address] Kyaw Madison Work Phone: [facility] Work Phone: 11-13-2021 16:28-0400 Body temperature 98.91 [degF] Lise Athy PA-C Work Phone: [facility] 11-13-2021 16:28-0400 Body weight 118.66 kg Lise Athy PA-C Work Phone: [facility] 11-13-2021 16:28-0400 Diastolic blood pressure 84 mm[Hg] Lise Athy PA-C Work Phone: [facility] 11-13-2021 16:28-0400 Heart rate 99 /min Lise Athy PA-C Work Phone: [facility] 11-13-2021 16:28-0400 Respiratory rate 20 /min Lise Athy PA-C Work Phone: [facility] 11-13-2021 16:28-0400 SaO2% (BldA) [Mass fraction] 99 % Lise Athy PA-C Work Phone: [facility] 11-13-2021 16:28-0400 Systolic blood pressure 126 mm[Hg] Lise Athy PA-C Work Phone: [facility] 10-29-2021 19:05-0400 Body temperature 97.39 [degF] Herbie Shultz MD Work Phone: [facility] 10-29-2021 19:05-0400 Body weight 119.3 kg Herbie Shultz MD Work Phone: [facility] 10-29-2021 19:05-0400 Diastolic blood pressure 84 mm[Hg] Herbie Shultz MD Work Phone: [facility] 10-29-2021 19:05-0400 Heart rate 79 /min Herbie Shultz MD Work Phone: [facility] 10-29-2021 19:05-0400 Respiratory rate 21 /min Herbie Shultz MD Work Phone: [facility] 10-29-2021 19:05-0400 SaO2% (BldA) [Mass fraction] 98 % Herbie Shultz MD Work Phone: [facility] 10-29-2021 19:05-0400 Systolic blood pressure 146 mm[Hg] Herbie Shultz MD Work Phone: [facility] 09-16-2021 09:34-0400 Body mass index (BMI) [Ratio] 30.2 kg/m2 Dr. Kyaw Madison Work Phone: [facility] Work Phone: 09-16-2021 09:34-0400 Body weight 115.[address] Kyaw Madison Work Phone: [facility] Work Phone: Encounters Encounter Date Encounter Type Care Provider Facility Start: 10-20-2024 End: 10-20-2024 Telephone encounter Aly Jiménez [facility] Comment on above: Anticoagulation Tele phone Fu (Home INR result) Start: 10-11-2024 End: 10-11-2024 Telephone encounter Magdy Ramirez PA-C Work Phone: Neurology Comment on above: PAP Rx Faxed (ROSEMARIE-Angelika mancini) Start: 10-11-2024 End: 10-11-2024 Telemedicine consultation with patient Magdy Jett SIDDIQUI Work Phone: Neurology Start: 10-11-2024 End: 10-11-2024 ambulatory Magdy Ramirez PA-C Work Phone: Neurology Comment on above: DOREEN (obstructive sle ep apnea) (Primary Dx); Central sleep apnea treated with adaptive servo-ventilation (ASV) device Start: 10-09-2024 End: 10-09-2024 Telephone encounter Magdy Ramirez PA-C Work Phone: Neurology Comment on above: Appointment (DOWNLOA D PAP THERAPY FOLLOW UP) Start: 09-28-2024 End: 09-28-2024 Telephone encounter Gunnar Patel [facility] Comment on above: Anticoagulation Tele phone Fu (Home INR) Patient Question; Re turning Patient's Call Start: 09-19-2024 End: 09-19-2024 Refill Janae Cortes MD Work Phone: Cardiology Comment on above: Refill Request Start: 09-18-2024 End: 09-18-2024 Chart abstracting [facility] Work Phone: Neurology Comment on above: PSG Check In Start: 09-17-2024 End: 09-17-2024 ambulatory SAURAV BOB Facility:[facility] Start: 09-15-2024 End: 09-15-2024 Telephone encounter Jones West [facility] Comment on above: Anticoagulation Tele phone Fu (INR Home Test Result) Start: 09-12-2024 End: 09-12-2024 ambulatory SAURAV BOB Facility:[facility] Start: 09-12-2024 Encounter for genera l adult medical examination without abnormal findings SAURAV BOB [facility] Start: 09-10-2024 End: 09-10-2024 Patient encounter procedure Jasmin Greene APRN.SHEET METAL WORKER APPRENTICE Work Phone: [facility] Comment on above: Impacted cerumen of left ear (Primary Dx) Start: 09-10-2024 End: 09-10-2024 ambulatory SAURAV BOB Facility:[facility] Start: 08-17-2024 End: 08-23-2024 Chart abstracting [facility] Work Phone: Neurology Comment on above: CMN Start: 08-10-2024 End: 08-10-2024 Telephone encounter Gunnar Patel [facility] Comment on above: Anticoagulation Tele phone Fu (Home INR) Start: 07-31-2024 End: 07-31-2024 ambulatory SAURAV BOB Facility:[facility] Start: 07-31-2024 End: 07-31-2024 Patient encounter procedure Magdy Ramirez PA-C Work Phone: Neurology Comment on above: Central sleep apnea (Primary Dx); Central sleep apnea treated with adaptive servo-ventilation (ASV) device Start: 07-31-2024 End: 07-31-2024 Telephone encounter Magdy Ramirez PA-C Work Phone: Neurology Comment on above: PAP Compliance & The rapy Report (Follow Up) Start: 07-28-2024 End: 07-28-2024 Telephone encounter Magdy Ramirez PA-C Work Phone: Neurology Comment on above: Requesting PAP Compl iance and Therapy Report (Formerly [facility]. ) Start: 07-27-2024 End: 07-27-2024 Telephone encounter Gunnar Patel [facility] Comment on above: Anticoagulation Tele phone Fu (Home INR) Start: 07-25-2024 End: 07-25-2024 Telephone encounter Gunnar Patel [facility] Comment on above: Anticoagulation Tele phone Fu (Home INR) Start: 07-24-2024 End: 07-24-2024 ambulatory Gayathri Jose Daniel PA-C Work Phone: [facility] Comment on above: Gastroesophageal ref lux disease with esophagitis without hemorrhage (Primary Dx); Dysphagia, unspecified type; Calculus of gallbladder without cholecystitis without obstruction; Fatty metamorphosis of liver Start: 07-24-2024 End: 07-24-2024 Telemedicine consultation with patient Gayathri Sky [facility]-C [facility] Start: 07-20-2024 End: 07-20-2024 ambulatory SAURAV BOB Facility:[facility] Start: 07-19-2024 End: 07-19-2024 Telephone encounter Grace Rhoades MD Work Phone: Cardiology Comment on above: Patient Education Start: 07-18-2024 End: 07-18-2024 ambulatory Abundio GARCIA Facility[facility] Start: 07-13-2024 End: 07-14-2024 Telephone encounter [facility] Comment on above: Anticoagulation (Per ioperative Management) Start: 07-12-2024 End: 07-12-2024 Orders Only Janae Cortes MD Work Phone: Cardiology Comment on above: S/P MVR (mitral valv e replacement) (Primary Dx); Chest discomfort; Abnormal stress test S/P MVR (mitral valv e replacement) [Z95.2] Start: 07-07-2024 End: 07-07-2024 Telephone encounter Aly Jiménez [facility] Comment on above: Anticoagulation Tele phone Fu Start: 07-07-2024 End: 07-07-2024 Emergency department patient visit GERONIMO THRASHER Work Phone: -Emergency Department Work Phone: Start: 06-15-2024 End: 08-15-2024 Follow-up encounter Janae Cortes MD Work Phone: Cardiology Start: 06-15-2024 End: 06-15-2024 Telephone encounter Gunnar Patel [facility] Comment on above: Anticoagulation Tele phone Fu (Home INR) Start: 06-13-2024 End: 06-15-2024 ambulatory SAURAV Lott LISBETH Facility:[facility] Start: 06-13-2024 End: 06-13-2024 Nursing evaluation of patient and report Nurse Card Berry Clark Work Phone: Cardiology Comment on above: LBBB (left bundle br anch block) [I44.7] (Primary Dx); S/P MVR (mitral valve replacement) [Z95.2]; AV block, 1st degree [I44.0] Start: 06-10-2024 End: 06-10-2024 Telephone encounter Felecia Ulloa [facility] Comment on above: Anticoagulation Tele phone Fu Start: 06-07-2024 Non-patient / Non-visit Dr. Cathie Garza MD -[facility] Work Phone: Start: 06-06-2024 Non-patient / Non-visit Dr. Cathie Garza MD -[facility] Work Phone: Start: 06-05-2024 Non-patient / Non-visit Dr. Cathie Garza MD -[facility] Work Phone: Start: 06-05-2024 ambulatory CHAGO CID Facilit y:[facility] Start: 06-05-2024 End: 06-07-2024 Evaluation and management of inpatient Dr. Lyndsey Garza MD -[facility] 2 Work Phone: Start: 05-31-2024 End: 05-31-2024 Telephone encounter Harini Cesar [facility] Comment on above: Anticoagulation Tele phone Fu (Lab INR result ) Start: 05-25-2024 End: 05-25-2024 Orders Only Gayathri Sky PA-C Work Phone: [facility] Comment on above: Abnormal esophagram (Primary Dx); Periumbilical pain; Gastroesophageal reflux disease, unspecified whether esophagitis present Start: 05-24-2024 End: 05-24-2024 ambulatory GAYATHRI SKY Facility:[facility] Start: 05-24-2024 End: 05-24-2024 Subsequent hospital visit by physician Gi/[facility] Comment on above: Generalized abdomina l pain [R10.84] Elevated bilirubin [ R17] Start: 05-19-2024 End: 05-19-2024 Patient encounter procedure Janae Cortes MD Work Phone: Cardiology Comment on above: S/P MVR (mitral valv e replacement) (Primary Dx); LBBB (left bundle branch block); AV block, 1st degree Start: 05-19-2024 End: 05-19-2024 ambulatory SAURAV BOB Facility:[facility] Start: 05-11-2024 End: 05-11-2024 Telephone encounter Gunnar Patel [facility] Comment on above: Anticoagulation Tele phone Fu (Home INR) Start: 04-19-2024 End: 04-19-2024 Patient encounter procedure Ramón Silva MD Work Phone: Urology Comment on above: Incomplete bladder e mptying (Primary Dx); History of urethral stricture Start: 04-19-2024 End: 04-24-2024 ambulatory Ramón Silva MD Work Phone: Urology Start: 04-17-2024 End: 04-17-2024 ambulatory SAURAV BOB Facility:[facility] Start: 04-17-2024 End: 04-17-2024 Patient encounter procedure Gayathri Sky PA-C Work Phone: [facility] [place] Comment on above: Generalized abdomina l pain (Primary Dx); Elevated bilirubin; Calculus of gallbladder without cholecystitis without obstruction; Gastroesophageal reflux disease with esophagitis without hemorrhage; Dysphagia, unspecified type Start: 04-14-2024 End: 04-14-2024 ambulatory SAURAV BOB Facility:[facility] Start: 04-14-2024 End: 04-14-2024 Patient encounter procedure Dina Joyce 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 Work Phone: [facility] [place] Comment on above: Primary hypertension (Primary Dx); Central sleep apnea treated with adaptive servo-ventilation (ASV) device; Abdominal pain, unspecified abdominal location; Hyperbilirubinemia; S/P MVR (mitral valve replacement); senior care (current) use of anticoagulants; Screening for depression; Encounter for screening examination for other mental health and behavioral disorders Start: 03-31-2024 End: 03-31-2024 Telephone encounter Vane Matute [facility] Comment on above: Anticoagulation Tele phone Fu (Home INR) Start: 03-01-2024 End: 03-06-2024 ambulatory Ramón Silva MD Work Phone: Urology Start: 02-25-2024 End: 02-25-2024 ambulatory JANAE CORTES Facility:[facility] Start: 02-22-2024 End: 02-23-2024 ambulatory Gayathri Jose Daniel PA-C Work Phone: [facility] Comment on above: Stomach Pain Start: 02-17-2024 End: 02-18-2024 Refill Saurav Bob MD Work Phone: [facility] Comment on above: Refill Request Start: 02-16-2024 End: 02-16-2024 Telephone encounter Harini Cesar [facility] Comment on above: Anticoagulation Tele phone Fu (Home INR) Start: 02-14-2024 End: 02-14-2024 Refill Gayathri Sky PA-C Work Phone: [facility] Comment on above: Refill Request Start: 01-19-2024 End: 01-19-2024 Telephone encounter Harini Cesar [facility] Comment on above: Anticoagulation Tele phone Fu (Lab INR results ) Start: 01-12-2024 End: 01-12-2024 Telephone encounter Cecy Nunn APRN.SHEET METAL WORKER APPRENTICE Work Phone: Neurology Start: 12-28-2023 End: 12-28-2023 Telephone encounter Pushpa Salguero [facility] Comment on above: Anticoagulation Tele phone Fu (Home INR result ) Start: 12-22-2023 End: 12-22-2023 ambulatory Jane Carcamo PT Work Phone: [facility] Comment on above: Posterior tibialis m uscle dysfunction (Primary Dx) Start: 12-21-2023 End: 12-21-2023 Telephone encounter Aly Jiménez [facility] Comment on above: Anticoagulation Tele phone Fu (Home INR result) Start: 12-14-2023 Telephone encounter Aly Jiménez [facility] Comment on above: Anticoagulation Tele phone Fu (Home INR result) Start: 11-30-2023 Telephone encounter Pharmacist [facility] Comment on above: Anticoagulation Start: 11-25-2023 End: 11-25-2023 ambulatory Jane Golias PT Work Phone: [facility] Comment on above: Posterior tibialis m uscle dysfunction (Primary Dx); Posterior tibial tendon dysfunction Start: 11-23-2023 Telephone encounter Aly Jiménez [facility] Comment on above: Anticoagulation Tele phone Fu Start: 11-22-2023 Orders Only Janae carpenter MD Work Phone: Cardiology Comment on above: S/P MVR (mitral valv e replacement) (Primary Dx) Start: 11-16-2023 End: 05-24-2024 Telephone encounter [facility]ist [facility] Comment on above: Anticoagulation Start: 11-09-2023 Telephone encounter Aly Jiménez [facility] Comment on above: Anticoagulation Tele phone Fu Start: 11-02-2023 Telephone encounter Aly Jiménez RPh P [facility] Tele[facility] Comment on above: Anticoagulation Tele phone Fu (Home INR result) Start: 10-26-2023 Telephone encounter Aly Jiménez RPh [facility] Comment on above: Anticoagulation Tele phone Fu (Home INR result) Start: 10-25-2023 End: 10-25-2023 ambulatory Ramón Silva MD Work Phone: Urology Start: 10-25-2023 End: 10-25-2023 Patient encounter procedure Ramón Silva MD Work Phone: Urology Comment on above: Acute prostatitis (P rimary Dx); Incomplete bladder emptying; History of urethral stricture Start: 10-18-2023 Telephone encounter [facility] Comment on above: Anticoagulation Tele phone Fu (Home INR Result ) Start: 10-13-2023 Telephone encounter Cindy marte APRN.SHEET METAL WORKER APPRENTICE Work Phone: Urology Start: 10-11-2023 ambulatory Ramón arias MD Work Phone: Urology Start: 10-11-2023 Telephone encounter [facility] Comment on above: Anticoagulation Tele phone Fu (Home INR Result ) Start: 10-11-2023 End: 10-11-2023 Patient encounter procedure Ramón Silva MD Work Phone: Urology Comment on above: Acute prostatitis (P rimary Dx); Incomplete bladder emptying; History of urethral stricture Start: 10-07-2023 End: 10-07-2023 Telemedicine consultation with patient Carolyn Galdamez 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 Work Phone: Telemedicine Comment on above: Bee sting, accidenta l or unintentional, initial encounter (Primary Dx) Start: 10-04-2023 ambulatory Ramón arias MD Work Phone: Urology Comment on above: Prostate Infection Start: 10-04-2023 Telephone encounter Pharmacist [facility] Comment on above: Anticoagulation Patient Update Start: 10-03-2023 Telephone encounter Angelo Salazar APRN.SHEET METAL WORKER APPRENTICE Work Phone: [facility] Start: 10-01-2023 End: 10-01-2023 Patient encounter procedure Angelo Bradjesus 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 Work Phone: [facility] Comment on above: Urinary frequency (P rimary Dx); Recurrent UTI (urinary tract infection) Start: 09-28-2023 Telephone encounter Aly Jiménez RPh P harm[facility] Comment on above: Anticoagulation Tele phone Fu (Home INR result) Start: 09-23-2023 End: 09-23-2023 Patient encounter procedure Georgie Reynoso Work Phone: Podiatry Comment on above: Posterior tibial ten don dysfunction (Primary Dx); Callus Start: 09-20-2023 End: 09-20-2023 Patient encounter procedure Jostin Barnes 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 Work Phone: [facility] Comment on above: Urinary frequency (P rimary Dx); Injury of ear, initial encounter Start: 09-14-2023 Telephone encounter Aly Jiménez RPh [facility] Comment on above: Anticoagulation Tele phone Fu (Home INR result) Start: 09-13-2023 End: 09-13-2023 Patient encounter procedure Herbie Shultz MD Work Phone: [facility] Comment on above: External hemorrhoid (Primary Dx) Start: 09-10-2023 Refill Janae carpenter MD Work Phone: Cardiology Comment on above: Refill Request Start: 08-24-2023 Telephone encounter Aly Tateanibal RPh [facility] Start: 08-16-2023 Orders Only Georgie quinteros Work Phone: Appointment Center Comment on above: Pain (Primary Dx) Start: 08-10-2023 Telephone encounter Aly Gordon RPh P harm[facility] Comment on above: Anticoagulation Tele phone Fu (Home INR result) Start: 08-03-2023 Telephone encounter Cecy Nunn APRN.SHEET METAL WORKER APPRENTICE Work Phone: Neurology Comment on above: PAP Supply Fax Start: 08-03-2023 End: 08-03-2023 Patient encounter procedure Cecy Nunn APRN.SHEET METAL WORKER APPRENTICE Work Phone: Neurology Comment on above: Central sleep apnea (Primary Dx); DOREEN (obstructive sleep apnea); Central sleep apnea treated with adaptive servo-ventilation (ASV) device Start: 07-27-2023 Telephone encounter [facility] Comment on above: Anticoagulation Tele phone Fu (Lab INR) Start: 06-30-2023 Refill Janae carpenter MD Work Phone: Cardiology Comment on above: Refill Request REJECTED CMN Start: 06-29-2023 ambulatory Gayathri Sky PA-C Work Phone: [facility] [place] Comment on above: 90 day supply Start: 06-29-2023 Telephone encounter Aly Gordon RPh [facility] Comment on above: Anticoagulation Tele phone Fu (Home INR result) Refill Request User Interface Developer - O ther Start: 06-15-2023 Telephone encounter Aly Gorodn RPh P harm[facility] Comment on above: Anticoagulation Tele phone Fu (Home INR result) Start: 04-20-2023 End: 04-20-2023 Emergency department patient visit [facility] Work Phone: Start: 04-20-2023 Telephone encounter Jasmin Greene ARMIN.SHEET METAL WORKER APPRENTICE Work Phone: [facility] Comment on above: Patient Update Start: 04-13-2023 Telephone encounter Aly Tateanibal RPh P harm[facility] Comment on above: Anticoagulation Tele phone Fu (Home INR result) Start: 03-17-2023 Telephone encounter [facility] Comment on above: Anticoagulation Tele phone Fu (Home INR ) Start: 02-23-2023 Telephone encounter Aly Tateanibal RPh P harm[facility] Comment on above: Anticoagulation Tele phone Fu (Home INR result) Start: 02-20-2023 End: 02-20-2023 Patient encounter procedure Lise Kennedy PA-C Work Phone: [facility] Comment on above: Impacted cerumen of left ear (Primary Dx) Start: 02-09-2023 Telephone encounter Aly Gordon RPh P harm[facility] Comment on above: Anticoagulation Tele phone Fu Start: 01-31-2023 ambulatory Neelam Gutierrez RN [facility] Start: 01-31-2023 Patient encounter procedure Neelam Gutierrez RN [facility] Start: 01-28-2023 Telephone encounter Pharmacist [facility] Comment on above: Patient Update Start: 01-14-2023 Telephone encounter Pharmacist [facility] Comment on above: Anticoagulation Tele phone Fu Start: 01-13-2023 End: 01-13-2023 Patient encounter procedure Xiomara Santos APRN.SHEET METAL WORKER APPRENTICE Work Phone: [facility] Comment on above: URI, acute (Primary Dx) Start: 12-30-2022 End: 12-30-2022 Patient encounter procedure Herbie Shultz MD Work Phone: [facility] Comment on above: Rash and nonspecific skin eruption (Primary Dx) Start: 12-29-2022 Telephone encounter Pharmacist [facility] Comment on above: Anticoagulation Start: 12-25-2022 Telephone encounter Jones West RP P harmacy [facility] Comment on above: Anticoagulation Tele phone Fu Start: 12-23-2022 Telephone encounter Pharmacist [facility] Comment on above: Anticoagulation - In itial Consult Start: 12-18-2022 End: 12-19-2022 ambulatory [facility] Start: 12-18-2022 End: 12-18-2022 Anticoagulant drug monitoring Onesimo Flores MD Work Phone: [facility] Comment on above: Mitral valve replace d Start: 12-10-2022 End: 12-11-2022 [facility] Start: 12-03-2022 End: 12-04-2022 [facility] Start: 12-01-2022 End: 12-01-2022 Patient encounter procedure Jasmin Magdaleno PAGESHEET METAL WORKER APPRENTICE Work Phone: [facility] Comment on above: Lump on face (Primar y Dx) Start: 11-25-2022 End: 11-26-2022 [facility] Start: 11-25-2022 End: 11-25-2022 Anticoagulant drug monitoring Onesimo Flores MD Work Phone: [facility] Comment on above: Mitral valve replace d Start: 11-23-2022 ambulatory Ramón arias MD Work Phone: Urology Start: 11-23-2022 End: 11-23-2022 Patient encounter procedure Ramón Silva MD Work Phone: Urology Comment on above: Gross hematuria (Joie maisha Dx); History of urethral stricture; Nephrolithiasis; Screening for prostate cancer; Incomplete bladder emptying Start: 11-17-2022 End: 11-18-2022 [facility] Start: 11-17-2022 End: 11-17-2022 Anticoagulant drug monitoring Onesimo Flores MD Work Phone: [facility] Comment on above: Mitral valve replace d Start: 11-10-2022 Non-patient / Non-visit Dr. Ra alex Madison Work Phone: [facility] Start: 11-10-2022 End: 11-10-2022 Admission to same day surgery center Dr. Kyaw Madison Work Phone: [facility] Work Phone: Start: 11-10-2022 End: 11-10-[address] Kyaw Madison Work Phone: [facility] Work Phone: Start: 10-27-2022 End: 10-28-2022 ambulatory [facility] Start: 10-19-2022 End: 10-19-2022 Anticoagulant drug monitoring Onesimo Flores MD Work Phone: [facility] Comment on above: Mitral valve replace d (Primary Dx) Start: 10-19-2022 End: 10-20-2022 ambulatory [facility] Start: 10-19-2022 End: 10-19-2022 Patient encounter procedure Gayathri Sky PA-C Work Phone: [facility] [place] Comment on above: Generalized postpran dial abdominal pain (Primary Dx); Elevated bilirubin; Multiple gallstones Start: 10-06-2022 End: 10-07-2022 ambulatory [facility] Start: 10-05-2022 End: 10-05-[address] Kyaw Madison Work Phone: [facility] Work Phone: Start: 10-05-2022 End: 10-05-[address] Kyaw Madison Work Phone: [facility], [facility] Start: 09-22-2022 End: 09-23-2022 ambulatory [facility] Start: 09-09-2022 End: 09-10-2022 Refill Janae Cortes MD Work Phone: Cardiology Comment on above: Refill Request Mitral valve replace d Start: 09-07-2022 End: 09-07-[address] Kyaw Madison Work Phone: [facility] Start: 08-25-2022 End: 08-26-2022 ambulatory [facility] Start: 08-25-2022 End: 08-25-2022 Anticoagulant drug monitoring Onesimo Flores MD Work Phone: [facility] Comment on above: Mitral valve replace d Start: 08-21-2022 End: 08-21-2022 Subsequent hospital visit by physician [facility] Work Phone: Nuclear Medicine Comment on above: Calculus of gallblad leodan without cholecystitis without obstruction [K80.20] Start: 08-19-2022 Telephone encounter Cindy marte APRN.SHEET METAL WORKER APPRENTICE Work Phone: Urology Comment on above: Patient Question Start: 08-14-2022 ambulatory Dina BaldwinSHEET METAL WORKER APPRENTICE Work Phone: [facility] [place] Comment on above: results Start: 08-14-2022 E-mail encounter fro m caregiver Dina Cope APRN.SHEET METAL WORKER APPRENTICE Work Phone: [facility] Start: 08-13-2022 End: 08-13-2022 Subsequent hospital visit by physician [facility] Comment on above: Periumbilical pain [ R10.33] Start: 08-12-2022 Telephone encounter Dina Cope APRN.SHEET METAL WORKER APPRENTICE Work Phone: [facility] [place] Comment on above: Results Orders Start: 08-12-2022 End: 08-12-2022 Subsequent hospital visit by physician [facility] (I-Stat) Work Phone: [facility] Comment on above: Periumbilical pain [ R10.33] Start: 08-11-2022 End: 08-11-2022 Office outpatient visit 15 minutes Geronimo King APRN.SHEET METAL WORKER APPRENTICE Work Phone: [facility] Comment on above: Generalized abdomina l pain (Primary Dx) Start: 08-03-2022 End: 08-04-2022 ambulatory [facility] Start: 07-20-2022 End: 07-21-2022 ambulatory [facility] Start: 07-20-2022 End: 07-20-2022 Anticoagulant drug monitoring Onesimo Flores MD Work Phone: [facility] Comment on above: Mitral valve replace d Start: 07-13-2022 End: 07-14-2022 ambulatory [facility] Start: 07-08-2022 Telephone encounter Selma Godinez [facility] Start: 07-08-2022 End: 07-09-2022 ambulatory ONESIMO FLORES [facility] Start: 07-08-2022 End: 07-08-2022 Anticoagulant drug monitoring Bonnie Holman [facility] Work Phone: [facility] Comment on above: Mitral valve replace d Start: 06-25-2022 Telephone encounter Cecy Nunn APRN.SHEET METAL WORKER APPRENTICE Work Phone: Neurology Comment on above: PAP Supply fax Start: 06-24-2022 End: 06-24-2022 Patient encounter procedure Cecy Nunn 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 Work Phone: Neurology Comment on above: Central sleep apnea (Primary Dx); DOREEN (obstructive sleep apnea); Central sleep apnea treated with adaptive servo-ventilation (ASV) device; Facial rash Start: 06-23-2022 End: 06-24-2022 [facility] Start: 06-23-2022 End: 06-23-2022 Anticoagulant drug monitoring Onesimo Flores MD Work Phone: [facility] Comment on above: Mitral valve replace d Start: 06-19-2022 End: 06-19-2022 Patient encounter procedure Dina Older 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 Work Phone: [facility] [place] Comment on above: Primary hypertension (Primary Dx); Central sleep apnea; Overweight (BMI 25.0-29.9); History of cardiomyopathy; Mechanical heart valve present Start: 06-09-2022 End: 06-10-2022 ambulatory [facility] Start: 06-09-2022 End: 06-09-2022 Anticoagulant drug monitoring Onesimo Flores MD Work Phone: [facility] Comment on above: Mitral valve replace d Start: 05-19-2022 End: 05-20-2022 ambulatory GERONIMO [facility] Start: 05-19-2022 End: 05-19-2022 Anticoagulant drug monitoring Onesimo Flores MD Work Phone: [facility] Comment on above: Mitral valve replace d Start: 04-30-2022 End: 05-01-2022 ambulatory YURIY LUCAS [facility] Start: 04-20-2022 End: 04-20-2022 Patient encounter procedure Herbie Shulzt MD Work Phone: [facility] Comment on above: Eustachian tube dysf unction, right (Primary Dx); Excessive cerumen in ear canal, bilateral Start: 04-17-2022 End: 04-17-2022 Patient encounter procedure Chio Dong APRN.CNP Work Phone: [facility] Comment on above: Impacted cerumen of right ear (Primary Dx) Start: 04-14-2022 End: 04-15-2022 ambulatory ONESIMO FLORES [facility] Start: 04-10-2022 End: 04-10-2022 Patient encounter procedure Janae Cortes MD Work Phone: Cardiology Comment on above: S/P MVR (mitral valv e replacement) (Primary Dx) Start: 03-17-2022 End: 03-18-2022 ambulatory BROOKE SOLIS [facility] Start: 03-03-2022 End: 03-04-2022 ambulatory ONESIMO SANDRA [facility] Start: 02-17-2022 ambulatory [facility] Start: 02-17-2022 End: 02-17-2022 Subsequent hospital visit by physician Onesimo Flores MD Work Phone: [facility] Start: 02-04-2022 End: 02-04-2022 Subsequent hospital visit by physician Onesimo Flores MD Work Phone: [facility] Start: 01-13-2022 End: 01-13-2022 Subsequent hospital visit by physician Onesimo Flores MD [facility] Phone[facility] Start: 01-08-2022 Non-patient / Non-visit Dr. Ra alex Madison Work Phone: [facility] Start: 01-08-2022 End: 01-08-2022 Admission to same day surgery center Dr. Kyaw Madison Work Phone: [facility] Start: 01-08-2022 End: 01-08-[address] Kyaw Madison Work Phone: [facility] Work Phone: Start: 12-18-2021 Orders Only Janae carpenter MD Work Phone: Cardiology Comment on above: S/P MVR (mitral valv e replacement) (Primary Dx) Start: 12-12-2021 End: 12-12-2021 Subsequent hospital visit by physician Onesimo Flores MD Work Phone: [facility] Start: 11-27-2021 End: 11-27-2021 Subsequent hospital visit by physician Onesimo Flores MD Work Phone: [facility] Start: 11-13-2021 End: 11-13-2021 Patient encounter procedure Lise Kennedy PA-C Work Phone: [facility] Comment on above: Bee sting, accidenta l or unintentional, initial encounter (Primary Dx) Start: 11-05-2021 End: 11-05-[address] Kyaw Madison Work Phone: [facility] Start: 10-30-2021 End: 10-30-2021 Subsequent hospital visit by physician Onesimo Flores MD Work Phone: [facility] Start: 10-29-2021 End: 10-29-2021 Patient encounter procedure Herbie Shultz MD Work Phone: [facility] Comment on above: Bilateral impacted c erumen (Primary Dx) Start: 10-21-2021 End: 10-21-2021 Subsequent hospital visit by physician Onesimo Flores MD Work Phone: [facility] Start: 10-07-2021 End: 10-07-2021 Subsequent hospital visit by physician Onesimo Flores MD Work Phone: [facility] Start: 09-23-2021 End: 09-23-2021 Subsequent hospital visit by physician Onesimo Flores MD Work Phone: [facility] Start: 09-16-2021 Non-patient / Non-visit Dr. Ra alex Madison Work Phone: [facility] Start: 09-09-2021 End: 09-09-2021 Subsequent hospital visit by physician Onesimo Flores MD Work Phone: [facility] Start: 08-12-2021 End: 08-12-2021 Subsequent hospital visit by physician Onesimo Flores MD Work Phone: [facility] Start: 07-28-2021 End: 07-28-2021 Subsequent hospital visit by physician Onesimo Flores MD Work Phone: [facility] Start: 07-28-2021 End: 07-28-2021 [facility] Start: 03-07-2021 End: 03-07-2021 Subsequent hospital visit by physician Onesimo Flores MD Work Phone: [facility] Start: 02-17-2021 End: 02-17-2021 Subsequent hospital visit by physician Onesimo Flores MD Work Phone: [facility] Start: 01-02-2021 End: 01-02-2021 Subsequent hospital visit by physician Onesimo Flores MD Work Phone: [facility] [place] [facility] Start: 12-05-2020 End: 12-05-2020 Subsequent hospital visit by physician Onesimo Flores MD Work Phone: [facility] [place] [facility] Start: 11-14-2020 End: 11-14-2020 Subsequent hospital visit by physician Onesimo Flores MD Work Phone: [facility] [place] [facility] Start: 11-08-2020 End: 11-08-2020 Subsequent hospital visit by physician Onesimo Flores MD Work Phone: [facility] [place] [facility] Start: 11-07-2020 End: 11-07-2020 Subsequent hospital visit by physician Onesimo Flores MD Work Phone: [facility] [place] [facility] Start: 10-10-2020 End: 10-10-2020 Subsequent hospital visit by physician Onesimo Flores MD Work Phone: [facility] [place] [facility] Start: 09-03-2020 End: 09-03-2020 Subsequent hospital visit by physician Onesimo Flores [facility] Start: 08-07-2020 End: 08-07-2020 Subsequent hospital visit by physician Onesimo Flores Work Phone: [facility] [place] [facility] Start: 03-12-2020 End: 03-12-2020 Subsequent hospital visit by physician Onesimo Flores Work Phone: [facility] [place] [facility] Start: 01-23-2020 End: 01-23-2020 Subsequent hospital visit by physician Onesimo Flores Work Phone: [facility] [place] [facility] Start: 01-18-2020 End: 01-18-2020 Subsequent hospital visit by physician Onesimo Flores Work Phone: [facility] [place] [facility] Start: 11-30-2019 End: 11-30-2019 Subsequent hospital visit by physician Onesimo Flores Work Phone: [facility] [place] [facility] Start: 08-21-2019 End: 08-21-2019 Subsequent hospital visit by physician Onesimo Flores Work Phone: [facility] Start: 06-27-2019 End: 06-27-2019 Subsequent hospital visit by physician Onesimo Flores Work Phone: [facility] Start: 05-26-2019 End: 05-26-2019 Subsequent hospital visit by physician Onesimo Flores MD Work Phone: [facility] Start: 04-28-2019 End: 04-28-2019 Subsequent hospital visit by physician Onesimo Flores MD Work Phone: [facility] Start: 03-23-2019 End: 03-23-2019 Subsequent hospital visit by physician Onesimo Flores Work Phone: [facility] Start: 03-09-2019 End: 03-09-2019 Subsequent hospital visit by physician Onesimo Flores Work Phone: [facility] Start: 02-13-2019 End: 02-13-2019 Subsequent hospital visit by physician Onesimo Flores Work Phone: [facility] Start: 01-16-2019 End: 01-16-2019 Subsequent hospital visit by physician Onesimo Flores Work Phone: [facility] Start: 12-16-2018 End: 12-16-2018 Subsequent hospital visit by physician Onesimo Flores Work Phone: [facility] Start: 04-14-2017 Ambulatory [facility] Facility:[facility] Start: 04-09-2017 Ambulatory [facility] Facility:[facility] Start: 04-06-2017 End: 04-07-2017 Ambulatory [facility] Facility:[facility] Start: 11-01-2013 End: 11-16-2013 [facility] Work Phone: Procedures Date Procedure Procedure Detail Performing Clinician Start: 09-12-2024 Lipid 1996 panel - Serum or Plasma Jones [facility] Start: 09-10-2024 Removal impacted cerumen instrumentation unilat Jasmin Greene 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 Work Phone: Start: 07-20-2024 Antibody screen SAURAV BOB Comment on above: Order Comment: Specimen Type: BLOOD SPEC IMENOrdering Facility: [facility] Address: [address] [place] [address] Performed By: #### T SCR ####CC MAIN BLOOD BANKCLIA [id number] [place] [address] [place] Start: 07-12-2024 Myocardial spect multiple studies Janae Cortes MD Work Phone: Start: 06-06-2024 Gram stain microscopy GERONIMO THRASHER Work Phone: Start: 06-06-2024 Respiratory microbial culture GERONIMO WEI Work Phone: Start: 06-05-2024 Gram stain microscopy GERONIMO THRASHER Work Phone: Start: 06-05-2024 Nucleic acid assay GERONIMO THRASHER Work Phone: Start: 06-05-2024 Respiratory microbial culture GERONIMO WEI Work Phone: Start: 06-04-2024 CT of thorax, abdomen and pelvis with contrast GERONIMO THRASHER Work Phone: Start: 06-04-2024 X-ray of chest, PA and lateral views GERONIMO THRASHER Work Phone: Start: 06-04-2024 Blood culture GERONIMO THRASHER Work Phone: Start: 06-04-2024 Legionella pneumophila antigen assay GERONIMO THRASHER Work Phone: Start: 06-04-2024 SARS-CoV-2, Influenza & RSV (PCR) OSEAS THRASHER Work Phone: Start: 06-04-2024 Streptococcus pneumoniae antigen assay GERONIMO THRASHER Work Phone: Start: 06-04-2024 Urine culture GERONIMO THRASHER Work Phone: Start: 05-24-2024 Radiologic exam esophagus single contrast study Gayathri Sky PA-C Work Phone: Start: 04-19-2024 Urnls dip stick/tablet rgnt auto w/o microscopy Ramón Silva MD Work Phone: Start: 04-14-2024 Adult depression screening assessment Dina Joyce 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 Work Phone: Start: 02-25-2024 Lipid 1996 panel - Serum or Plasma Jose Maria Silva MD Work Phone: Start: 10-25-2023 Urnls dip stick/tablet reagent auto microscopy Bulk Order Provider Start: 10-04-2023 Prothrombin time [facility] Provider Start: 10-01-2023 Urnls dip stick/tablet rgnt auto w/o microscopy Chio Dong 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 Work Phone: Start: 09-20-2023 Urnls dip stick/tablet rgnt auto w/o microscopy Jostin Barnes 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 Work Phone: Start: 08-03-2023 Lipid 1995 panel - Serum or Plasma Елена Nunn 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 Work Phone: Start: 07-27-2023 Lipid 1996 panel - Serum or Plasma Ever Salguero [facility] Start: 04-20-2023 CT of abdomen and pelvis without contrast Start: 04-20-2023 SARS-CoV-2 & FLU Antigen (Rapid) Start: 01-12-2023 Prothrombin time [facility] Provider Start: 12-29-2022 Prothrombin time [facility] Provider Start: 12-17-2022 Prothrombin time Historical Provider Work Phone: Start: 11-25-2022 Prothrombin time Historical Provider Work Phone: Start: 11-23-2022 Urnls dip stick/tablet rgnt auto w/o microscopy Bulk Order Provider Start: 11-17-2022 Prothrombin time Historical Provider Work Phone: Start: 11-13-2022 Prothrombin time Historical Provider Work Phone: Start: 11-10-[address] Kyaw cho Work Phone: Start: 10-19-2022 Prothrombin time Onesimo Flores MD Work Phone: Start: 10-05-2022 [address] gastric empt[address] study Dr. Kyaw Madison Work Phone: Start: 09-09-2022 Prothrombin time Historical Provider Work Phone: Start: 08-25-2022 Prothrombin time Historical Provider Work Phone: Start: 08-21-2022 Hepatobil syst imag inc gb w/pharma intervenj Dina Older 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 Work Phone: Start: 08-19-2022 Lipid 1996 panel - Serum or Plasma Nicky Santos 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 Work Phone: Start: 08-13-2022 Us abdominal real time w/image limited Dina Older 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 Work Phone: Start: 08-12-2022 Ct abdomen & pelvis w/contrast material Dina Older 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 Work Phone: Start: 07-20-2022 Prothrombin time Historical Provider Work Phone: Start: 07-07-2022 Prothrombin time Historical Provider Work Phone: Start: 06-23-2022 Prothrombin time Historical Provider Work Phone: Start: 06-09-2022 Prothrombin time Historical Provider Work Phone: Start: 05-18-2022 Prothrombin time Historical Provider Work Phone: Start: 01-08-2022 End: 01-08-[address] Kyaw Madison Work Phone: Start: 09-23-2021 POC INR Unknown Provider Result Start: 09-27-2020 Adult depression screening assessment Herbie Shultz MD Work Phone: Start: 03-12-2020 POC INR Unknown Provider Result Start: 01-23-2020 POC INR Unknown Provider Result Start: 01-18-2020 POC INR Unknown Provider Result Start: 11-30-2019 POC INR Unknown Provider Result Start: 08-21-2019 POC INR Unknown Provider Result Start: 06-27-2019 POC INR Unknown Provider Result Start: 05-26-2019 POC INR Unknown Provider Result Start: 04-28-2019 POC INR Unknown Provider Result Start: 03-23-2019 POC INR Unknown Provider Result Start: 03-09-2019 POC INR Unknown Provider Result Start: 02-13-2019 POC INR Unknown Provider Result Start: 01-16-2019 POC INR Unknown Provider Result Start: 12-16-2018 POC INR Unknown Provider Result Start: 11-11-2018 POC INR Unknown Provider Result Start: 10-14-2018 POC INR Unknown Provider Result Start: 09-27-2018 POC INR Unknown Provider Result Start: 09-08-2018 POC INR Unknown Provider Result Start: 08-15-2018 POC INR Unknown Provider Result Plan of Treatment Date Care Activity Detail Author Start: 07-07-2034 Urine microalbumin profile DTaP,Tdap,Td Vaccine (3 - Td or Tdap) [facility] Start: 01-09-2032 Screening for malignant neoplasm of colon [facility] Start: 09-12-2029 Lipid panel Lipid Screening [facility] Start: 02-24-2029 Lipid panel Lipid Screening [facility] Start: 08-02-2028 DTaP/Tdap/Td vaccine (2 - Td or Tdap) DTaP/Tdap/Td vaccine (2 - Td or Tdap) [facility] Start: 08-02-2028 DTaP/Tdap/Td vaccine (2 - Td) DTaP/Tdap/Td vaccine (2 - Td) [place], [place] Start: 08-02-2028 DTaP/Tdap/Td Vaccines (2 - Td or Tdap) DTaP/Tdap/Td Vaccines (2 - Td or Tdap) [facility] Start: 08-02-2028 Lipid panel Lipid Screening [facility] Start: 08-02-2028 Urine microalbumin profile [facility] Start: 09-13-2027 Diabetes Screening Diabetes Screening [facility] Start: 08-20-2027 Lipid 1996 panel - Serum or Plasma Lipid Screening [facility] Start: 08-20-2027 Lipid panel Lipid Screening [facility] Start: 08-20-2027 LIPID SCREEN LIPID SCREEN [facility] Start: 07-21-2027 Diabetes Screening Diabetes Screening [facility] Start: 05-24-2027 Diabetes Screening Diabetes Screening [facility] Start: 02-24-2027 Diabetes Screening Diabetes Screening [facility] Start: 01-08-2027 Colonoscopy COLONOSCOPY [facility] Start: 01-08-2027 COLORECTAL CANCER SCREENING COLORECTAL CANCER SCREENING [facility] Start: 01-08-2027 Screening for malignant neoplasm of colon [facility] Start: 08-02-2026 Diabetes Screening Diabetes Screening [facility] Start: 04-22-2026 Diabetes Screening Diabetes Screening [facility] Start: 09-10-2025 BP Controlled (<130/80) BP Controlled (<130/80) [facility] Start: 08-19-2025 DIABETES SCREEN DIABETES SCREEN [facility] Start: 08-19-2025 Diabetes Screening Diabetes Screening [facility] Start: 08-12-2025 DIABETES SCREEN DIABETES SCREEN [facility] Start: 07-31-2025 BP Controlled (<130/80) BP Controlled (<130/80) [facility] Start: 05-19-2025 BP Controlled (<130/80) BP Controlled (<130/80) [facility] Start: 04-17-2025 BP Controlled (<130/80) BP Controlled (<130/80) [facility] Start: 04-14-2025 Annual PCP Team Chronic Disease Visit Annual PCP Team Chronic Disease Visit [facility] Start: 04-14-2025 Anxiety Screening Anxiety Screening [facility] Start: 04-14-2025 Covid-19 Vaccine ( season) Covid-19 Vaccine ( season) [facility] Comment on above: Postponed from 01/02/2024 (Declined at t his time) Start: 04-14-2025 Depression Screening Depression Screening [facility] Start: 04-14-2025 Hepatitis B Vaccine (1 of 3 - 19+ 3-dose series) Hepatitis B Vaccine (1 of 3 - 19+ 3-dose series) [facility] Comment on above: Postponed from 1989 (Declined at t his time) Start: 04-14-2025 Shingrix Vaccine (1 of 2) Shingrix Vaccine (1 of 2) [facility] Comment on above: Postponed from 2020 (Declined at t his time) Start: 04-11-2025 End: 04-11-2025 Follow-up encounter 04/11/2025 2:00 PM EST [facility] [address] [place] [address] Magdy Ramirez PA-C [address] [place] [address] 6mo Follow up Neurology Comment on above: 6mo Follow up Start: 03-19-2025 End: 03-19-2025 Patient encounter procedure 03/19/2025 9:45 AM EST Office Visit Urology [address] [address] Ramón Silva MD [address] [place] [address] Follow up Urology Comment on above: Follow up Start: 03-16-2025 End: 03-16-2025 Patient encounter procedure 03/16/2025 10:00 AM EST Office Visit Internal Medicine [facility] [address] [place] [address] Dina Joyce, 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 [address] [place] [address] 11 mo follow up Internal Medicine [facility] Comment on above: 11 mo follow up Start: 01-01-2025 Influenza vaccination Influenza Vaccine (Season Ended) [facility] Start: 11-08-2024 End: 11-08-2024 Follow-up encounter 11/08/2024 2:00 PM EDT [facility] Neurology [address] [place] [address] Magdy Ramirez PA-C [address] [place] [address] Sleep study Follow up Neurology Comment on above: Sleep study Follow up Start: 10-30-2024 Influenza vaccination Influenza Vaccine (#1) [facility] Comment on above: Postponed from 01/02/2024 (Declined at t his time) Start: 10-11-2024 End: 10-11-2024 Follow-up encounter 10/11/2024 8:30 AM EDT [facility] Neurology [address] [place] [address] Magdy Ramirez PA-C [address] [place] [address] sleep study follow up Neurology Comment on above: sleep study follow up Start: 09-19-2024 BP Controlled (<130/80) BP Controlled (<130/80) [facility] Start: 09-17-2024 End: 09-17-2024 Patient encounter procedure 09/17/2024 9:25 PM EDT Office Visit Neurology [address] [place] [address] Central sleep apnea [G47.31]; Central sleep apnea treated with adaptive servo-ventilation (ASV) device [G47.31, Z99.89] Neurology Comment on above: Central sleep apnea [G47.31]; Central sl eep apnea treated with adaptive servo-ventilation (ASV) device [G47.31, Z99.89] Start: 09-12-2024 BP Controlled (<130/80) BP Controlled (<130/80) [facility] Start: 08-02-2024 BP Controlled (<130/80) BP Controlled (<130/80) [facility] in Start: 07-31-2024 End: 07-31-2024 Patient encounter procedure Neurology Comment on above: 1 year (around 08/02/2024) for with SURESH. Arrived Start: 07-24-2024 End: 07-24-2024 ambulatory 07/24/2024 12:30 PM EDT [facility] Gastroenterology Alex [address] [phone] Gayathri Sky PA-C [address] [facility] [place] [address] f/u for periumbilical pain Gastroenterology Alex Comment on above: f/u for periumbilical pain Start: 07-20-2024 End: 07-20-2024 Admission to same day surgery center 07/20/2024 10:55 PM EDT - 07/20/2024 11:38 PM EDT Surgery HOS[facility] [employer] [address] [place] [address] Grace Rhoades MD [address] [place] [address] INSERT INTRACORONARY STENT-PER MAJOR VESSEL OR BRANCH [facility] [employer] Comment on above: INSERT INTRACORONARY STENT-PER MAJOR VES STACIE OR BRANCH Start: 07-20-2024 End: 07-20-2024 Cath plmt l hrt & arts w/njx & angio img s&i CORONARY ANGIO W CATH PLACE W IMAGE INJECT & INTERP W LT HEART CATH W INJECT LT VENTRGRAPHY Abnormal stress test 07/20/2024 10:55 PM EDT [facility] Start: 07-20-2024 End: 07-20-2024 Prq trluml coronary stent w/angio one art/brnch INSERT INTRACORONARY STENT-PER MAJOR VESSEL OR BRANCH Abnormal stress test 07/20/2024 10:55 PM EDT [facility] Start: 07-20-2024 Subsequent hospital visit by physician 07/20/2024 10:55 PM EDT Hospital Encounter [facility] [employer] [address] [place] [address] Grace Rhoades MD [address] [place] [address] Abnormal stress test [R94.39] [facility] [employer] Comment on above: Abnormal stress test [R94.39] Start: 07-20-2024 End: 07-20-2024 Patient encounter procedure Gastroenterology Alex Comment on above: f/u f/u for periumbilica l pain Start: 07-20-2024 End: 07-20-2024 ambulatory Cardiology Comment on above: LHC with Possible PCI Start: 07-20-2024 End: 07-20-2024 Patient encounter procedure 07/20/2024 8:30 AM EDT Office Visit Admitting [address] [place] [address] ADMIT Admitting Comment on above: ADMIT Start: 07-12-2024 End: 07-12-2024 Patient encounter procedure Molecular Imaging Comment on above: S/P MVR (mitral valve replacement) [Z95. 2] Start: 07-07-2024 [facility] Start: 06-19-2024 End: 06-19-2024 Patient encounter procedure Molecular Imaging Comment on above: S/P MVR (mitral valve replacement) [Z95. 2] Start: 06-07-2024 Patient discharge [facility] Start: 06-06-2024 Consultation [facility] Start: 06-05-2024 Care planning and problem solving actions [facility] Start: 06-05-2024 Following clinical pathway protocol [facility] Start: 06-05-2024 Cardiac monitoring [facility] Start: 06-05-2024 Catheterization of vein [facility] Start: 06-05-2024 Continuous positive airway pressure ventilation treatment [facility] Start: 06-05-2024 Continuous pulse oximetry [facility] Start: 06-05-2024 Notification of physician [facility] Start: 06-05-2024 Vital signs measurements [facility] Start: 06-05-2024 [facility] Start: 06-05-2024 Admission procedure [facility] Start: 06-04-2024 Hospital admission, emergency, from emergency room, medical nature [facility] Start: 06-04-2024 [facility] Start: 05-24-2024 End: 05-24-2024 Patient encounter procedure [facility] Comment on above: XR ESOPHAGRAM US ABD RIGHT UPPER Q UADRANT Start: 05-22-2024 End: 05-22-2024 Patient encounter procedure 05/22/2024 10:15 AM EST Appointment [facility] [address] [place] [address] US ABD RIGHT UPPER QUADRANT [facility] Comment on above: US ABD RIGHT UPPER QUADRANT Start: 05-19-2024 End: 05-19-2024 ambulatory 05/19/2024 12:00 PM EST Results Only Cardiology [address] [place] [address] Dx: S/P MVR (mitral valve replacement) Cardiology Comment on above: Dx: S/P MVR (mitral valve replacement) Start: 05-19-2024 End: 05-19-2024 Patient encounter procedure Cardiology Comment on above: Dx: S/P MVR (mitral valve replacement) Start: 05-09-2024 End: 05-09-2024 Patient encounter procedure [facility] Comment on above: Generalized abdominal pain [R10.84] Start: 05-04-2024 BP Controlled (<130/80) BP Controlled (<130/80) [facility] Start: 04-19-2024 End: 04-19-2024 Patient encounter procedure 04/19/2024 2:15 PM EST Office Visit Urology [address] [address] Ramón Silva MD [address] [place] [address] RTC in 4 months for Acute prostatitis per cc chart Urology Comment on above: RTC in 4 months for Acute prostatitis pe r cc chart Start: 04-19-2024 BP Controlled (<130/80) BP Controlled (<130/80) [facility] Start: 04-17-2024 End: 07-17-2024 CBC W Auto Differential panel - Blood COMPLETE BLOOD COUNT AND DIFFERENTIAL Lab Routine Generalized abdominal pain Expected: 04/17/2024, Expires: 07/17/2024 [facility] Work Phone: Comment on above: Expected: 04/17/2024, Expires: Start: 04-17-2024 End: 07-17-2024 Comprehensive metabolic 2000 panel - Serum or Plasma COMPREHENSIVE METABOLIC PANEL Lab Routine Generalized abdominal pain Expected: 04/17/2024, Expires: 07/17/2024 [facility] Comment on above: Expected: 04/17/2024, Expires: Start: 04-17-2024 End: 07-17-2024 Lipase [Enzymatic activity/volume] in Serum or Plasma LIPASE Lab Routine Generalized abdominal pain Expected: 04/17/2024, Expires: 07/17/2024 [facility] Comment on above: Expected: 04/17/2024, Expires: Start: 04-17-2024 End: 04-17-2024 Patient encounter procedure 04/17/2024 1:50 PM EST Office Visit Gastroenterology [place] [address] [place] [phone] Gayathri Sky PA-C [address] [place] [address] 1 year follow up for gerd [facility] Comment on above: 1 year follow up for gerd Start: 04-12-2024 End: 04-12-2024 Patient encounter procedure 04/12/2024 11:20 AM EST Office Visit Internal Medicine [facility] [address] [place], [place] [phone] Dina Joyce, 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 [address] [place] [address] physical Internal Medicine [place] Comment on above: physical Start: 03-01-2024 End: 03-01-2024 Patient encounter procedure 03/01/2024 2:30 PM EDT Office Visit Urology [address] [address] Ramón Silva MD [address] [place], [place] [id number] RTC in 4 months for Acute prostatitis per cc chart Urology Comment on above: RTC in 4 months for Acute prostatitis pe r cc chart Start: 02-21-2024 BP Controlled (<130/80) BP Controlled (<130/80) [facility] Start: 02-16-2024 End: 02-16-2024 Patient encounter procedure 02/16/2024 1:45 PM EDT Office Visit Urology [address] [address] Ramón Silva MD [address] [place] [address] RTC in 4 months for Acute prostatitis per cc chart Urology Comment on above: RTC in 4 months for Acute prostatitis pe r cc chart Start: 01-14-2024 BP Controlled (<130/80) BP Controlled (<130/80) [facility] Start: 01-02-2024 Covid-19 Vaccine () Covid-19 Vaccine () [facility] Start: 01-02-2024 Covid-19 Vaccine () Covid-19 Vaccine () [facility] Start: 01-02-2024 Influenza vaccination [facility] Start: 12-31-2023 BP CONTROLLED (<130/80) BP CONTROLLED (<130/80) [facility] Start: 12-22-2023 End: 12-22-2023 ambulatory 12/22/2023 4:00 PM EDT OT/PT/Speech Visit [facility] [address] [place] [address] Jane Carcamo, PT [address] [place] [address] orthoitc [facility] Comment on above: orthoitc Start: 12-22-2023 ANNUAL PCP TEAM CHRONIC DISEASE VISIT ANNUAL PCP TEAM CHRONIC DISEASE VISIT [facility] Start: 12-22-2023 BP CONTROLLED (<130/80) BP CONTROLLED (<130/80) [facility] Start: 12-06-2023 End: 12-06-2023 Patient encounter procedure 12/06/2023 1:40 PM EDT Office Visit Internal Medicine [facility] [address] [place] [address] Saurav Bob MD [address] [place] [address] Physical Internal Medicine [facility] Comment on above: Physical Start: 12-02-2023 BP CONTROLLED (<130/80) BP CONTROLLED (<130/80) [facility] Start: 11-25-2023 End: 11-25-2023 ambulatory 11/25/2023 11:30 AM EDT OT/PT/Speech Visit [facility] [address] [place] [address] Jane Carcamo, PT [address] [place] [address] orthotics [facility] Comment on above: orthotics Start: 11-22-2023 End: 05-19-2024 Lipid 1996 panel - Serum or Plasma LIPID PANEL BASIC Lab Routine S/P MVR (mitral valve replacement) Expected: 11/22/2023, Expires: 05/19/2024 [facility] Work Phone: Comment on above: Expected: 11/22/2023, Expires: Start: 11-14-2023 DIABETES SCREEN DIABETES SCREEN [facility] Start: 10-25-2023 End: 10-25-2023 Patient encounter procedure 10/25/2023 9:30 AM EDT Office Visit Urology [address] [address] Ramón Silva MD [address] [place] [address] 2 week recheck/ Acute prostatitis Urology Comment on above: 2 week recheck/ Acute prostatitis Start: 10-20-2023 BP CONTROLLED (<130/80) BP CONTROLLED (<130/80) [facility] Start: 10-11-2023 End: 10-11-2023 Patient encounter procedure 10/11/2023 8:15 AM EDT Office Visit Urology [address] [address] Ramón Silva MD [address] [place] [address] 6 month follow up VFR - patient to come up to Q8 with full bladder per cc chart Urology Comment on above: 6 month follow up VFR - patient to come up to Q8 with full bladder per cc chart Start: 09-23-2023 End: 09-23-2023 Patient encounter procedure 09/23/2023 2:00 PM EDT Office Visit Podiatry [address] [place] [address] Georgie Reynoso [address] [place] [address] Bilateral Foot pain Podiatry Comment on above: Bilateral Foot pain Start: 08-31-2023 End: 08-31-2023 Patient encounter procedure Radiology Comment on above: Bilateral Foot Bilateral Foot pain Start: 08-27-2023 ANNUAL PCP TEAM CHRONIC DISEASE VISIT ANNUAL PCP TEAM CHRONIC DISEASE VISIT [facility] Start: 08-27-2023 BP CONTROLLED (<130/80) BP CONTROLLED (<130/80) [facility] Start: 08-13-2023 ANNUAL PCP TEAM CHRONIC DISEASE VISIT ANNUAL PCP TEAM CHRONIC DISEASE VISIT [facility] Start: 08-13-2023 BP CONTROLLED (<130/80) BP CONTROLLED (<130/80) [facility] in Start: 06-19-2023 ANNUAL PCP TEAM CHRONIC DISEASE VISIT ANNUAL PCP TEAM CHRONIC DISEASE VISIT [facility] Start: 06-19-2023 BP CONTROLLED (<130/80) BP CONTROLLED (<130/80) [facility] Start: 06-19-2023 COVID-19 VACCINE (#1) COVID-19 VACCINE (#1) [facility] Comment on above: Postponed from 1970 (Declined at t his time) Start: 06-19-2023 HEPATITIS B (1 of 3 - 3-dose series) HEPATITIS B (1 of 3 - 3-dose series) [facility] Comment on above: Postponed from 1970 (Declined at t his time) Start: 06-19-2023 Hepatitis B Vaccine (1 of 3 - 3-dose series) Hepatitis B Vaccine (1 of 3 - 3-dose series) [facility] Comment on above: Postponed from 1970 (Declined at t his time) Start: 06-19-2023 SHINGRIX VACCINE (1 of 2) SHINGRIX VACCINE (1 of 2) [facility] Comment on above: Postponed from 2020 (Declined at t his time) Start: 05-03-2023 Behavioral Health Screening Behavioral Health Screening [facility] Start: 05-03-2023 Depression Assessment Depression Assessment [facility] Start: 05-03-2023 zzBehavioral Health Screening zzBehavioral Health Screening [facility] Start: 04-20-2023 [facility] Start: 04-20-2023 End: 04-20-2023 [facility] Start: 04-20-2023 Bacteria identified in Urine by Culture Urine Culture [facility] Start: 04-17-2023 BP CONTROLLED (<130/80) BP CONTROLLED (<130/80) [facility] Start: 04-10-2023 BP CONTROLLED (<130/80) BP CONTROLLED (<130/80) [facility] Start: 01-13-2023 End: 01-27-2023 COVID & INFLUENZA A/B & RSV NAAT, ROUTINE [facility] Work Phone: Comment on above: Expected: 01/13/2023, Expires: Start: 01-01-2023 Covid-19 Vaccine ( season) Covid-19 Vaccine ( season) [facility] Start: 01-01-2023 Influenza vaccination [facility] Start: 12-25-2022 End: 12-25-2022 Anticoagulant drug monitoring 12/25/2022 12:30 AM EDT Anticoagulation - Warfarin Visit [facility] [address] [place] [phone] Onesimo Flores MD [address] [place] [address] [facility] Start: 12-01-2022 End: 12-01-2022 Anticoagulant drug monitoring 12/01/2022 1:30 AM EDT Anticoagulation - Warfarin Visit [facility] [address] [place] [phone] Onesimo Flores MD [address] [place], [place] [phone] [facility] Start: 11-24-2022 End: 11-24-2022 Anticoagulant drug monitoring 11/24/2022 12:45 AM EDT Anticoagulation - Warfarin Visit [facility] [address] [facility] [address] [place] [phone] Onesimo Flores MD [address] [address] [facility] Start: 11-23-2022 End: 01-23-2023 Prostate specific Ag [Mass/volume] in Serum or Plasma PSA/PROSTSPECAG DIAG Lab Routine Screening for prostate cancer Expected: 11/23/2022, Expires: 01/23/2023 [facility] Work Phone: Comment on above: Expected: 11/23/2022, Expires: Start: 11-10-2022 Patient discharge [facility] Start: 10-30-2022 Influenza vaccination INFLUENZA (#1) [facility] Comment on above: Postponed from 01/01/2022 (Declined at t his time) Start: 10-26-2022 End: 10-26-2022 Anticoagulant drug monitoring 10/26/2022 12:45 AM EDT Anticoagulation - Warfarin Visit [facility] [address] [facility] [address] [place] [phone] Onesimo Flores MD [address] [place] [address] [facility] Start: 09-21-2022 End: 09-21-2022 Anticoagulant drug monitoring 09/21/2022 Anticoagulation - Warfarin Visit Pharmacy [facility] Start: 09-08-2022 End: 09-08-2022 Anticoagulant drug monitoring 09/08/2022 Anticoagulation - Warfarin Visit Pharmacy [facility] Start: 08-21-2022 End: 10-21-2022 Comprehensive metabolic 2000 panel - Serum or Plasma COMP METABOLIC PANEL Lab Routine Calculus of gallbladder without cholecystitis without obstruction Serum total bilirubin elevated Expected: 08/21/2022 (Approximate), Expires: 10/21/2022 [facility] Work Phone: Comment on above: Expected: 08/21/2022 (Approximate), Expi res: 10/21/2022 Start: 08-14-2022 End: 10-14-2022 bilirubin panel [Mass/volume] - Serum or Plasma BILIRUBIN FRACTION Lab Routine Calculus of gallbladder without cholecystitis without obstruction Serum total bilirubin elevated Expected: 08/14/2022, Expires: 10/14/2022 [facility] Work Phone: Comment on above: Expected: 08/14/2022, Expires: Start: 07-27-2022 End: 07-27-2022 Anticoagulant drug monitoring 07/27/2022 Anticoagulation - Warfarin Visit [facility] Start: 07-20-2022 End: 07-20-2022 Anticoagulant drug monitoring 07/20/2022 Anticoagulation - Warfarin Visit [facility] Start: 07-13-2022 End: 07-13-2022 Anticoagulant drug monitoring 07/13/2022 Anticoagulation - Warfarin Visit [facility] Start: 07-07-2022 End: 07-07-2022 Anticoagulant drug monitoring 07/07/2022 Anticoagulation - Warfarin Visit [facility] Start: 06-19-2022 End: 08-19-2022 CBC panel - Blood by Automated count CBC Lab Routine Primary hypertension Expected: 06/19/2022, Expires: 08/19/2022 [facility] Work Phone: Comment on above: Expected: 06/19/2022, Expires: 3 Start: 06-19-2022 End: 08-19-2022 Comprehensive metabolic 2000 panel - Serum or Plasma COMP METABOLIC PANEL Lab Routine Primary hypertension Expected: 06/19/2022, Expires: 08/19/2022 [facility] Work Phone: Comment on above: Expected: 06/19/2022, Expires: 3 Start: 06-19-2022 End: 08-19-2022 Lipid 1996 panel - Serum or Plasma LIPID PANEL BASIC Lab Routine Primary hypertension Expected: 06/19/2022, Expires: 08/19/2022 [facility] Work Phone: Comment on above: Expected: 06/19/2022, Expires: Start: 06-16-2022 End: 06-16-2022 Anticoagulant drug monitoring 06/16/2022 Anticoagulation - Warfarin Visit [facility] Start: 02-16-2022 End: 02-16-2022 ambulatory 02/16/2022 Anti-coag visit [facility] Start: 01-20-2022 End: 01-20-2022 ambulatory 01/20/2022 Anti-coag visit [facility] Start: 01-08-2022 Patient discharge [facility] Work Phone: Start: 01-01-2022 Influenza vaccination [facility] Start: 12-23-2021 End: 12-23-2021 ambulatory 12/23/2021 Anti-coag visit [facility] Start: 12-01-2021 Influenza vaccination Flu vaccine (#1) [facility] Start: 11-13-2021 Lipid panel Lipids [facility] Start: 11-13-2021 End: 11-13-2021 ambulatory 11/13/2021 Anti-coag visit [facility] Start: 10-28-2021 End: 10-28-2021 ambulatory 10/28/2021 Anti-coag visit [facility] Start: 10-21-2021 End: 10-21-2021 ambulatory 10/21/2021 Anti-coag visit [facility] Start: 10-07-2021 End: 10-07-2021 ambulatory 10/07/2021 Anti-coag visit [facility] Start: 09-27-2021 Adult depression screening assessment DEPRESSION SCREENING [facility] Start: 09-23-2021 End: 09-23-2021 ambulatory 09/23/2021 Anti-coag visit [facility] Start: 09-16-2021 End: 09-16-2021 ambulatory 09/16/2021 Anti-coag visit [facility] Start: 08-19-2021 End: 08-19-2021 ambulatory 08/19/2021 Anti-coag visit [facility] Start: 08-11-2021 End: 08-11-2021 ambulatory 08/11/2021 Anti-coag visit [facility] Start: 05-03-2021 DEPRESSION ASSESSMENT DEPRESSION ASSESSMENT [facility] Start: 03-14-2021 End: 03-14-2021 ambulatory 03/14/2021 Anti-coag visit [facility] Start: 03-03-2021 End: 03-03-2021 ambulatory 03/03/2021 Anti-coag visit [facility] Start: 02-28-2021 End: 02-28-2021 ambulatory 02/28/2021 Anti-coag visit [facility] Start: 02-20-2021 End: 02-20-2021 ambulatory 02/20/2021 Anti-coag visit [facility] Start: 01-09-2021 End: 01-09-2021 ambulatory 01/09/2021 Anti-coag visit [facility] Start: 01-01-2021 Influenza vaccination Flu vaccine (#1) [facility] Start: 12-19-2020 End: 12-19-2020 ambulatory 12/19/2020 Anti-coag visit [facility] Start: 11-21-2020 End: 11-21-2020 ambulatory 11/21/2020 Anti-coag visit [facility] Start: 11-08-2020 End: 11-08-2020 ambulatory 11/08/2020 Anti-coag visit [facility] Start: 10-24-2020 End: 10-24-2020 ambulatory 10/24/2020 Anti-coag visit [facility] Start: 08-20-2020 End: 08-20-2020 Anti-coag visit 08/20/2020 Anti-coag visit [facility] Start: 2020 Pneumococcal Vaccine: 50+ (2 of 2 - PCV) Pneumococcal Vaccine: 50+ (2 of 2 - PCV) [facility] Start: 2020 Screening for malignant neoplasm of colon Colon cancer screen colonoscopy [place], [place] Start: 2020 Shingles Vaccine (1 of 2) Shingles Vaccine (1 of 2) [facility] Start: 2020 SHINGRIX VACCINE (1 of 2) SHINGRIX VACCINE (1 of 2) [facility] Start: 2020 Zoster Vaccines (1 of 2) Zoster Vaccines (1 of 2) [facility] Start: 01-30-2020 End: 01-30-2020 Anti-coag visit 01/30/2020 Anti-coag visit [facility] Start: 01-23-2020 End: 01-23-2020 Anti-coag visit 01/23/2020 Anti-coag visit [facility] Start: 01-11-2020 End: 01-11-2020 Anti-coag visit 01/11/2020 Anti-coag visit [facility] Start: 01-02-[address] [facility] [place] Start: 10-16-2019 End: 10-16-2019 Anti-coag visit 10/16/2019 Anti-coag visit [facility] Start: 07-25-2019 End: 07-25-2019 Anti-coag visit 07/25/2019 Anti-coag visit [facility] Start: 06-23-2019 End: 06-23-2019 ambulatory 06/23/2019 Anti-coag visit [facility] Start: 05-19-2019 End: 05-19-2019 ambulatory 05/19/2019 Anti-coag visit [facility] Start: 04-20-2019 End: 04-20-2019 Anti-coag visit 04/20/2019 Anti-coag visit [facility] Start: 03-23-2019 End: 03-23-2019 Anti-coag visit 03/23/2019 Anti-coag visit [facility] Start: 03-06-2019 End: 03-06-2019 Anti-coag visit 03/06/2019 Anti-coag visit [facility] Start: 02-13-2019 End: 02-13-2019 Anti-coag visit 02/13/2019 Anti-coag visit [facility] Start: 01-13-2019 End: 01-13-2019 Anti-coag visit 01/13/2019 Anti-coag visit [facility] Start: 01-01-2019 Influenza vaccination Flu vaccine (#1) [place] Start: 08-04-2018 DIABETES SCREEN DIABETES SCREEN [facility] Start: 2015 COLOGUARD (FIT-DNA) COLOGUARD (FIT-DNA) [facility] Start: 2015 Colonoscopy COLONOSCOPY [facility] Start: 2015 COLORECTAL CANCER SCREENING COLORECTAL CANCER SCREENING [facility] Start: [address] COLONOGRAPHY [facility] Start: 2015 FECAL OCCULT BLOOD FECAL OCCULT BLOOD [facility] Start: 2015 Screening for malignant neoplasm of colon [facility] Start: 2015 SIGMOIDOSCOPY SIGMOIDOSCOPY [facility] Start: 2010 Diabetes screen Diabetes screen [place], [place] Start: 2010 Lipid screen Lipid screen [place], [place] Start: 2005 LIPID SCREEN LIPID SCREEN [facility] Start: 1989 DTaP/Tdap/Td vaccine (1 - Tdap) DTaP/Tdap/Td vaccine (1 - Tdap) [place], [place] Start: 1989 Hepatitis B Vaccine (1 of 3 - 19+ 3-dose series) Hepatitis B Vaccine (1 of 3 - 19+ 3-dose series) [facility] Start: 1989 Urine microalbumin profile DTAP,TDAP,TD (1 - Tdap) [facility] Start: 1988 ANNUAL PCP TEAM CHRONIC DISEASE VISIT ANNUAL PCP TEAM CHRONIC DISEASE VISIT [facility] Start: 1988 Anxiety Screening Anxiety Screening [facility] Start: 1988 BP CONTROLLED (<130/80) BP CONTROLLED (<130/80) [facility] Start: 1988 Depression Screening Depression Screening [facility] Start: 1988 Hepatitis C screening [facility] Start: 1986 COVID-19 Vaccine (1) COVID-19 Vaccine (1) [facility] Work Phone: Start: 1985 HIV screen HIV screen [place], [place] Start: 1985 HIV screening HIV screen [facility] Start: 1982 COVID-19 Vaccine (1) COVID-19 Vaccine (1) [facility] Work Phone: Start: 1982 Depression Screen Depression Screen [facility] Start: 1982 Depression Screening Depression Screening [facility] Start: 1980 Lipid panel [facility] Start: 1980 Lipid screen Lipid screen [place], [place] Start: 1975 COVID-19 VACCINE (#1) COVID-19 VACCINE (#1) [facility] Start: 1975 COVID-19 Vaccine (1) COVID-19 Vaccine (1) [facility] Start: 1971 MMR Vaccines (1 of 1 - Standard series) MMR Vaccines (1 of 1 - Standard series) [facility] Start: 1970 COVID-19 VACCINE (#1) COVID-19 VACCINE (#1) [facility] Start: 1970 HEPATITIS B (1 of 3 - 3-dose series) HEPATITIS B (1 of 3 - 3-dose series) [facility] Start: 1970 Hepatitis B Vaccine (1 of 3 - 3-dose series) Hepatitis B Vaccine (1 of 3 - 3-dose series) [facility] Start: 1970 Hepatitis B Vaccines (1 of 3 - 3-dose series) Hepatitis B Vaccines (1 of 3 - 3-dose series) [facility] Start: 1970 Hepatitis C screening Hepatitis C screen [facility] Start: 1970 HIV screening HIV Screening [facility] Start: 1970 Lip[address] Lipid Panel [facility] Start: 1970 Screening for malignant neoplasm of colon 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 CYTOLOGY NON-GY N Lab Routine Gross hematuria Ordered: 11/23/2022 [facility] Work Phone: Comment on above: Ordered: 11/23/2022 End: 12-18-2022 ECG COMPLETE ECG COMPLETE ECG Routine S/P MVR (mitral valve replacement) 1 Occurrences starting 12/18/2021 until 12/18/2022 [facility] Work Phone: Comment on above: 1 Occurrences starting 12/18/2021 until 12/18/2022 End: 05-19-2025 ECG COMPLETE ECG COMPLETE ECG Routine S/P MVR (mitral valve replacement) LBBB (left bundle branch block) AV block, 1st degree 1 Occurrences starting 05/19/2024 until 05/19/2025 [facility] Comment on above: 1 Occurrences starting 05/19/2024 until 05/19/2025 End: 12-18-2022 Echocardiography ECHO Cardiology Routine S/P MVR (mitral valve replacement) 1 Occurrences starting 12/18/2021 until 12/18/2022 [facility] Work Phone: Comment on above: 1 Occurrences starting 12/18/2021 until 12/18/2022 End: 05-19-2025 Echocardiography ECHO Cardiology Routine S/P MVR (mitral valve replacement) LBBB (left bundle branch block) AV block, 1st degree 1 Occurrences starting 05/19/2024 until 05/19/2025 [facility] Comment on above: 1 Occurrences starting 05/19/2024 until 05/19/2025 End: 05-25-2025 EGD DIAGNOSTIC EGD DIAGNOSTIC Endoscopy Routine Periumbilical pain Abnormal esophagram Gastroesophageal reflux disease, unspecified whether esophagitis present 1 Occurrences starting 05/25/2024 until 05/25/2025 [facility] Work Phone: Comment on above: 1 Occurrences starting 05/25/2024 until 05/25/2025 End: 09-13-2023 Hepatobil syst imag inc gb w/pharma intervenj NM HEPATOBILIARY W EF AND/OR RX Radiology Routine Calculus of gallbladder without cholecystitis without obstruction 1 Occurrences starting 08/14/2022 until 09/13/2023 [facility] Work Phone: Comment on above: 1 Occurrences starting 08/14/2022 until 09/13/2023 End: 05-19-2025 HOLTER MONITOR 24 HOUR HOLTER MONITOR 24 HOUR ECG Routine S/P MVR (mitral valve replacement) LBBB (left bundle branch block) AV block, 1st degree 1 Occurrences starting 05/19/2024 until 05/19/2025 [facility] Comment on above: 1 Occurrences starting 05/19/2024 until 05/19/2025 Liver ultrasound attenuation by transient elastography DDI VIBRATION CONTROLLED TRANSIENT ELASTOGRAPHY (VCTE) Endoscopy Routine Fatty metamorphosis of liver Ordered: 07/24/2024 [facility] Work Phone: Comment on above: Ordered: 07/24/2024 End: 06-18-2025 NM Heart Perfusion W stress and W radionuclide IV NM CARDIAC PERF STRESS/PHARM Radiology Routine S/P MVR (mitral valve replacement) LBBB (left bundle branch block) AV block, 1st degree 1 Occurrences starting 05/19/2024 until 06/18/2025 [facility] Work Phone: Comment on above: 1 Occurrences starting 05/19/2024 until 06/18/2025 Patient Education [facility] Work Phone: Patient referral [facility] Work Phone: End: 07-31-2025 Polysomnogram POLYSOMNOGRAM (PSG) Procedures Routine Central sleep apnea Central sleep apnea treated with adaptive servo-ventilation (ASV) device 1 Occurrences starting 07/31/2024 until 07/31/2025 [facility] Work Phone: Comment on above: 1 Occurrences starting 07/31/2024 until 07/31/2025 Prothrombin time (PT ) in Blood by Coagulation assay [facility] Work Phone: Removal impacted cer umen instrumentation unilat REMOVAL OF IMPACTED CERUMEN - INSTRUMENTATION Procedures Routine Impacted cerumen of right ear Ordered: 04/17/2022 [facility] Work Phone: Comment on above: Ordered: 04/17/2022 Removal impacted cer umen irrigation/lvg unilat AMBULATORY EAR LAVAGE/IRRIGATION Procedures Routine Impacted cerumen of left ear Ordered: 02/20/2023 [facility] Work Phone: Comment on above: Ordered: 02/20/2023 Removal impacted cer umen irrigation/lvg unilat AMBULATORY EAR LAVAGE/IRRIGATION Procedures Routine Impacted cerumen of left ear Ordered: 09/10/2024 [facility] Work Phone: Comment on above: Ordered: 09/10/2024 ROUTINE FLU A/B + RSV ROUTINE FL U A/B + RSV Lab Routine URI, acute 01/13/2023 5:27 PM EDT [facility] Work Phone: SARS-CoV-2 (COVID-19 ) RNA [Presence] in Respiratory specimen by DESEAN with probe detection COVID NAAT, UPPER RESPIRATORY, ROUTINE Microbiology Routine URI, acute 01/13/2023 5:27 PM EDT [facility] Work Phone: UA DIP, URINE (POC) UA DIP, URIN E (POC) Lab Routine Screening for genitourinary condition 1 Occurrences starting 04/19/2024 [facility] Work Phone: Comment on above: 1 Occurrences starting 04/19/2024 URINALYSIS, REFLEX MICROSCOPIC URINALYSIS, REFLEX MICROSCOPIC Lab Routine Screening for genitourinary condition Ordered: 10/11/2023 [facility] Work Phone: Comment on above: Ordered: 10/11/2023 URINALYSIS, REFLEX MICROSCOPIC URINALYSIS, REFLEX MICROSCOPIC Lab Routine Screening for genitourinary condition Ordered: 10/25/2023 [facility] Work Phone: Comment on above: Ordered: 10/25/2023 URINALYSIS, REFLEX MICROSCOPIC URINALYSIS, REFLEX MICROSCOPIC Lab Routine Screening for genitourinary condition Ordered: 03/01/2024 [facility] Work Phone: Comment on above: Ordered: 03/01/2024 End: 09-11-2023 US ABD RIGHT UPPER QUADRANT US ABD RIGHT UPPER QUADRANT Radiology STAT Periumbilical pain Gallstones 1 Occurrences starting 08/12/2022 until 09/11/2023 [facility] Work Phone: Comment on above: 1 Occurrences starting 08/12/2022 until 09/11/2023 End: 05-17-2025 US Abdomen RUQ US ABD RIGHT UPPER QUADRANT Radiology Routine Elevated bilirubin Calculus of gallbladder without cholecystitis without obstruction 1 Occurrences starting 04/17/2024 until 05/17/2025 [facility] Comment on above: 1 Occurrences starting 04/17/2024 until 05/17/2025 End: 05-24-2024 US Abdomen RUQ [facility] Work Phone: Comment on above: 1 Occurrences starting 05/24/2024 until 05/24/2024 End: 05-17-2025 XR Esophagus Views W contrast PO XR ESOPHAGRAM Radiology Routine Generalized abdominal pain Dysphagia, unspecified type 1 Occurrences starting 04/17/2024 until 05/17/2025 [facility] Comment on above: 1 Occurrences starting 04/17/2024 until 05/17/2025 End: 09-14-2024 XR Foot - bilateral AP and Lateral and oblique XR FOOT GENERAL 3V AP/LAT/OBL BILATERAL Radiology Routine Pain 1 Occurrences starting 08/16/2023 until 09/14/2024 [facility] Work Phone: Comment on above: 1 Occurrences starting 08/16/2023 until 09/14/2024 [facility] Immunizations Immunization Date Immunization Notes Care Provider Davy castro 07-07-2024 tetanus toxoid, redu kimmy diphtheria toxoid, and acellular pertussis vaccine, adsorbed GERONIMO THRASHER Work Phone: [facility] 02-19-2020 influenza, injectabl e, quadrivalent, preservative free [facility] 02-19-2020 influenza, seasonal, injectable Dr. Kyaw Madison Work Phone: [facility] 02-19-2020 influenza, seasonal, injectable, preservative free Dina Older 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 Work Phone: [facility] 02-19-2020 influenza virus vacc ine, unspecified formulation Selma Godinez [facility] 03-22-2019 influenza, injectabl e, quadrivalent, contains preservative Dina Older 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 Work Phone: [facility] 08-02-2018 tetanus toxoid, redu kimmy diphtheria toxoid, and acellular pertussis vaccine, adsorbed Dina Older 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 Work Phone: [facility] 03-07-2018 influenza, injectabl e, quadrivalent, contains preservative Dina Older 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 Work Phone: [facility] 01-30-2015 influenza, injectabl e, quadrivalent, preservative free Herbie Shultz MD Work Phone: [facility] 01-10-2013 pneumococcal polysaccharide vaccine, 23 valent Dina Older 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 Work Phone: [facility] Payers Date Payer Category Payer Unknown [id number] 2024 Private Health Insurance [id number] 2024 Self-pay [id number] 2024 Private Health Insurance [id number] 2022 Private Health Insurance [id number] 2021 Private Health Insurance ABRAN PIÑA [address] [id number] 2021-[facility] [id number] [place] [address] Indemnity [id number] 2021 Private Health Insurance [id number] 2021 Unknown [id number] 2014 Unknown [id number] 2014 Unknown [facility] xxxxxxxxxxx 2014-Present [phone] [address] [place] [address] xxxxxxxxxxx [id number] 2014 Unknown [facility] [id number] 2014-Present [phone] [address] [place] [address] [id number] 1970 Unknown [id number] 1970 Unknown [id number] Unknown COMMERCIAL OTHER [id number] 01 [id number] Unknown [id number] Unknown [id number] Unknown [id number] Unknown [id number] Unknown [id number] Unknown [id number] Unknown [id number] Social History Date Type Detail Facility Start: 07-11-2018 End: 04-10-2022 Tobacco smoking status [facility] Never smoker [facility] Start: 07-11-2018 End: 01-29-2023 Alcohol intake No [facility] Start: 1970 Sex Assigned At Not on file [facility] Start: 07-11-2018 End: 09-10-2024 Alcohol intake Current non-drinker of alcohol (finding) Lana Revokom [facility] QUINTERO Start: 07-11-2018 End: 04-10-2022 Tobacco use and exposure [facility] Start: 07-11-2018 End: 01-29-2023 Alcohol intake [facility] Start: 01-23-2020 End: 06-19-2022 History SDOH Alcohol Frequency 1 [facility] Start: 02-14-2021 History SDOH Alcohol Comment rarely [facility] Start: 01-01-2022 End: 04-20-2023 Tobacco smoking status NEIS Unknown if ever smoked [facility] Start: 02-18-2020 None [facility] Start: 02-18-2020 Alone [facility] Start: 02-18-2020 Non-smoker [facility] Start: 1970 Sex Assigned At Male C [facility] Start: 06-19-2022 History SDOH Alcohol Std Drinks 0 [facility] Start: 06-19-2022 History SDOH Social Connections Phone 5 [facility] Start: 06-19-2022 History SDOH Social Connections Get Together 3 [facility] Start: 06-19-2022 History SDOH Social Connections Living 7 [facility] Start: 06-19-2022 History SDOH Physica l Activity DPW 4 [facility] Start: 06-19-2022 History SDOH Stress 2 [facility] Start: 05-09-2022 End: 12-18-2022 Exposure to SARS-CoV-2 (event) Not sure [facility] Do you belong to any clubs or organizations such as caodaism groups, unions, fraternal or athletic groups, or school groups? Yes [facility] Are you now , , , , never or living with a partner? Never [facility] How often to you hav e a drink containing alcohol? Never [facility] How many standard dr inks containing alcohol do you have on a typical day? Patient does not drink [facility] How hard is it for y ou to pay for the very basics like food, housing, medical care, and heating Not very hard [facility] Do you feel stress - tense, restless, nervous, or anxious, or unable to sleep at night because your mind is troubled all the time - these days [OSQ] Only a little [facility] (I/We) worried ramona er (my/our) food would run out before (I/we) got money to buy more. Never true [facility] In the past 12 month s, was there a time when you were not able to pay the mortgage or rent on time? No [facility] Start: 08-14-2022 Gender identity Identifies as male gender (finding) [facility] How often to you hav e a drink containing alcohol? Monthly or less [facility] Start: 07-07-2024 Sex Male (finding) [facility] Medical Equipment Procedure Code Equipment Code Equipment Original Text Equipment Identifier Dates Band Anlplsty 77mm 31mm [place] - [id number] Start: 11-13-2013 Comment on above: Description: Moises jones Annuloplasty Band Medtronic Hope Cv 4x.5in Thk1.65mm Ptfe - [id number] Start: 11-13-2013 Hope Cv 4x.5in Thk1.65mm Ptfe - [id number] Start: 11-20-2013 Valve Mitrl 27-29mm Onx Hrt - [id number]_[facility] Start: 11-20-2013 Goals Date Patient Goal Desired Activity /State Functional Status Date Assessment Result Facility 07-20-2024 Are you deaf, or do you have serious difficulty hearing No 07/20/2024 6:27 PM Heide Florez RN No [facility] 07-20-2024 Are you blind, or do you have serious difficulty seeing, even when wearing glasses No 07/20/2024 6:27 PM Heide Florez RN [facility] 07-20-2024 Do you have serious difficulty walking or climbing stairs No 07/20/2024 6:27 PM Heide Florez, ELISSA [facility] 07-20-2024 Do you have difficul ty dressing or bathing No 07/20/2024 6:27 PM Heide Florez, ELISSA [facility] 07-20-2024 Because of a physica l, mental, or emotional condition, do you have difficulty doing errands alone such as visiting a physician's office or shopping No 07/20/2024 6:27 PM EDT Heide Cho RN No [facility] 06-07-2024 Functional status Up ad raoul [facility] Work Phone: 08-05-2015 Are you deaf, or do you have serious difficulty hearing No 08/05/2015 1:20 PM EDT Darlyn Mike APRN.[facility] Work Phone: 08-05-2015 Are you blind, or do you have serious difficulty seeing, even when wearing glasses No 08/05/2015 1:20 PM EDT Darlyn Mike APRN.[employer]ENTICE [facility] 08-05-2015 Do you have serious difficulty walking or climbing stairs No 08/05/2015 1:20 PM EDT Darlyn Mike APRN.[facility] 08-05-2015 Do you have difficul ty dressing or bathing No 08/05/2015 1:20 PM EDT Darlyn Mike APRN.[facility] 08-05-2015 Because of a physica l, mental, or emotional condition, do you have difficulty doing errands alone such as visiting a physician's office or shopping No 08/05/2015 1:20 PM EDT Darlyn Mike APRN.[facility] Mental Status Date Assessment Result Facility 07-20-2024 Because of a physica l, mental, or emotional condition, do you have serious difficulty concentrating, remembering, or making decisions No 07/20/2024 6:27 PM EDT Heide Cho RN No [facility] 06-07-2024 Cognitive function Voice/Name [facility] Work Phone: 11-10-2022 Cognitive function Voice/Name [facility] Work Phone: 11-10-2022 Cognitive function Patient Oripapi zuniga Person;Place;Time [facility] Work Phone: 01-08-2022 Cognitive function Level Of Cons ciousness Awake;Drowsy [facility] Work Phone: 01-08-2022 Cognitive function Patient Rolo zuniga Person;Place;Time [facility] Work Phone: 08-05-2015 Because of a physica l, mental, or emotional condition, do you have serious difficulty concentrating, remembering, or making decisions No 08/05/2015 1:20 PM EDT Darlyn Mike APRN.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 [facility] Clinical Notes 08-05-2015 to 10-20-2024 Telephone Encounter - Aly Jiménez [facility] - 10/20/2024 8:07 AM EDTTelephone Encounter - Aly Jiménez [facility] - 10/20/2024 8:07 AM EDTTelephone Encounter - June Castellano [facility] - 10/11/2024 2:32 PM EDT Note Date & Type Note Facility 10-20-2024 Telephone encounter Note [facility] Antico[facility] Clinic Anticoagulation Episode Summary Anticoagulation Care Providers Provider Role Specialty Phone number Saurav Bob MD Referring Internal Medicine [phone] Georgie Elizabeth is a 54 year old year old male patient being evaluated today for a Telemanagement visit. Patient is currently on the following anticoagulant(s) Warfarin. Labs Lab Results Component Value Date INR 3.0 10/19/2024 INR 3.3 09/28/2024 INR 2.8 09/15/2024 Lab Results Component Value Date HB 14.5 09/12/2024 HB 14.9 07/20/2024 HB 16.0 05/24/2024 Lab Results Component Value Date HCT 45.2 09/12/2024 HCT 46.0 07/20/2024 HCT 48.9 05/24/2024 Lab Results Component Value Date PLT 310 09/12/2024 PLT 308 07/20/2024 PLT 337 05/24/2024 Lab Results Component Value Date CREAT 0.82 09/12/2024 CREAT 0.83 07/20/2024 CREAT 0.76 05/24/2024 No components found for: [id number] Lab Results Component Value Date ALT 19 09/12/2024 ALT 33 05/24/2024 ALT 23 02/25/2024 Lab Results Component Value Date AST 18 09/12/2024 AST 27 05/24/2024 AST 20 02/25/2024 Estimated Creatinine Clearance: 141.6 mL/min (based on SCr of 0.82 mg/dL). ALLERGIES Allergen Reactions Codeine Mental Status Change Gluten GI Upset Sulfa Drugs [Sulfa * Myalgia Indication for Warfarin: Anticoagulation Episode Summary Current INR goal: 2.5-3.5 Assessment: INR result of 3.0 is therapeutic Plan: Current Warfarin Dosing As of 10/20/2024 Full warfarin instructions: 10 mg every Wed, Wed, Wed; 12.5 mg all other days Sent [employer] message Advised patient to continue current weekly dose as noted above Next home INR check scheduled on 11/10/2024 Patient advised to call the PAC with any medication changes, bleeding/bruising concerns, recent changes in vitamin k consumption, if any procedures are coming up, if they have been ill or in the hospital, and if they have missed any doses of warfarin. Aly Jiménez RPh Clinical Pharmacist, Pharmacy Anticoagulation Clinic Pharmacy Anticoagulation Clinic Pager: [phone]. [facility] 10-20-2024 Miscellaneous Notes [facility] Anticoagulation Clinic Anticoagulation Episode Summary Anticoagulation Care Providers Provider Role Specialty Phone number Saurav Bob MD Referring Internal Medicine [phone] Georgie Elizabeth is a 54 year old year old male patient being evaluated today for a Telemanagement visit. Patient is currently on the following anticoagulant(s) Warfarin. Labs Lab Results Component Value Date INR 3.0 10/19/2024 INR 3.3 09/28/2024 INR 2.8 09/15/2024 Lab Results Component Value Date HB 14.5 09/12/2024 HB 14.9 07/20/2024 HB 16.0 05/24/2024 Lab Results Component Value Date HCT 45.2 09/12/2024 HCT 46.0 07/20/2024 HCT 48.9 05/24/2024 Lab Results Component Value Date PLT 310 09/12/2024 PLT 308 07/20/2024 PLT 337 05/24/2024 Lab Results Component Value Date CREAT 0.82 09/12/2024 CREAT 0.83 07/20/2024 CREAT 0.76 05/24/2024 No components found for: [email or web address] Lab Results Component Value Date ALT 19 09/12/2024 ALT 33 05/24/2024 ALT 23 02/25/2024 Lab Results Component Value Date AST 18 09/12/2024 AST 27 05/24/2024 AST 20 02/25/2024 Estimated Creatinine Clearance: 141.6 mL/min (based on SCr of 0.82 mg/dL). ALLERGIES Allergen Reactions Codeine Mental Status Change Gluten GI Upset Sulfa Drugs [Sulfa * Myalgia Indication for Warfarin: Anticoagulation Episode Summary Current INR goal: 2.5-3.5 Assessment: INR result of 3.0 is therapeutic Plan: Current Warfarin Dosing As of 10/20/2024 Full warfarin instructions: 10 mg every Wed, Wed, Wed; 12.5 mg all other days Sent [employer] message Advised patient to continue current weekly dose as noted above Next home INR check scheduled on 11/10/2024 Patient advised to call the PAC with any medication changes, bleeding/bruising concerns, recent changes in vitamin k consumption, if any procedures are coming up, if they have been ill or in the hospital, and if they have missed any doses of warfarin. Aly Jiménez RPh Clinical Pharmacist, Pharmacy Anticoagulation Clinic Pharmacy Anticoagulation Clinic Pager: [phone]. documented in this encounter [facility] 10-11-2024 Telephone encounter Note PAP order, OV notes, and demographics [email or web address] [phone], and received confirmation on 10/11/2024 at 1129. [facility] 10-11-2024 Miscellaneous Notes PAP order, OV notes, and demographics [email or web address] at [phone], and received confirmation on 10/11/2024 at 1129. documented in this encounter [facility] 10-11-2024 Instructions Magdy Ramirez PA-C - 10/11/2024 9:57 AM EDT Images from the original note were not included. Side Sleeping: Try Sewing a Wiffle Ball into the back of a T shirt or undershirt: Can get at any sports store and even the [employer], [employer]. You can use any of these or other devices from any brand these were just a first chosen off the list: Medcline Pillow for snoring, GERD and shoulder pain documented in this encounter [facility] 10-11-2024 Note HNO ID: [id number] Author: MAGDY RAMIREZ PA-C Service: ? Author Type: Physician Low Heel Builder Type: Progress Notes Filed: 10/11/2024 09:57 Note Text: [facility] Follow up/ Established patient visit Date of last visit : 07/31/2024 I have communicated my name and active licensure. The patient's identity and physical location were verified at the time of this visit. Either the patient or their legal risk control representative has been informed of the risks and benefits of -- and alternatives to -- treatment through a remote evaluation and consents to proceed with the evaluation remotely. Interval history : He underwent a PSG on 09/17/2024 and presents virtually today to discuss the results and treatment plan. He has been using ASV intermittently recently. He finds that he sleep better with it. 09/17/2024 PSG: REM-Time REM AHI NREM-Time NREM AHI Total-Time Total AHI Supine 0.0 m -- 5.5 m 76.4 5.5 m 76.4 Off-Supine 15.5 m 19.4 171.0 m 7.7 186.5 m 8.7 Total 15.5 m 19.4 176.5 m 9.9 192.0 m 10.6 Sleep efficiency 47%. Low O2 93% 0 apneas, 34 hypopnea, 0 RERAs Severe, complex apnea on 2015 study. Mostly central in nature. He was experiencing cardiomyopathy, LBBB, and had a mitral valve replacement several months after the initial PSG. He has been on ASV since then. Recent average AHI is 0.1. He was admitted in July and told his O2 levels were remaining above 90% without ASV therapy while sleeping- which is why we ordered a repeat test. PATIENT-ENTERED QUESTIONNAIRE SLEEP SCORES 10/10/2024 Sleep Questions Reason for visit: Sleep apnea Average hours of CPAP per night: 6 Percent of nights CPAP used at least 4 hours: 60 Accidents or near accidents due to drowsy drivin 06/24/2022 07/24/2024 10/10/2024 Purdy Sleepiness Scale Score 7 (No clinically significant daytime sleepiness) 10 (No clinically significant daytime sleepiness) 9 (No clinically significant daytime sleepiness) 06/24/2022 07/24/2024 10/10/2024 PROMIS CAT Sleep Disturbance PROMIS Sleep Disturbance T-Score 56 (mild) 58 (mild) 62 (moderate) PROMIS Sleep Disturbance Percentile 27 21 12 09/27/2020 07/24/2024 10/10/2024 Insomnia Severity Index Score 13 17 17 06/24/2022 Restless Leg Syndrome Score 10 (Mild Symptoms) 04/14/2024 07/24/2024 10/10/2024 PHQ-9 Score 0 7 6 02/28/2024 04/18/2024 07/24/2024 PROMIS Global Health - (T-Scores - the mean of general population = 50. Five points is a clinically meaningful difference.) Physical T-Score 44.9 44.9 44.9 50.8 Mental T-Score 43.5 43.5 43.5 45.8 PMH, PSH, SH: reviewed SLEEP RELATED ROS Review of Systems Constitutional: Negative for fatigue, fever and recent unintentional weight change. Respiratory: Negative for difficulty breathing. Cardiovascular: Negative for chest pain and palpitations. Gastrointestinal: Positive for heartburn. ALLERGIES Allergen Reactions Codeine Mental Status Change Gluten GI Upset Sulfa Drugs [Sulfa * Myalgia CURRENT MEDICATIONS: CPAP/BIPAP/OTHER Type .CPAPSettings into a note to see current settings/supplies/DME information. metoprolol succinate ER (TOPROL XL) 50 mg 24 hr tablet Take 1 tablet by mouth once daily. Chlorhexidine Gluconate (PERIDEX) 0.12 % solution LORazepam (ATIVAN) 0.5 mg enoxaparin (LOVENOX) 120 mg/0.8 mL injection Inject 0.7mL (105mg) under the skin every 12 hours or as directed by the Coumadin Clinic (Patient not taking: Reported on 09/10/2024) dicyclomine (BENTYL) 10 mg capsule Take 1 capsule by mouth three times a day as needed (for abdominal pain). pantoprazole DR (PROTONIX) 40 mg tablet Take 1 tablet by mouth once daily. On empty stomach at least 30 minutes before eating. coenzyme Q10 (CO Q-10) 100 mg cap capsule Take 1 capsule by mouth once daily. warfarin (COUMADIN) 10 mg tablet Take 15 mg every Mon, Wed; 12.5 mg all other days or as directed by anticoagulation clinic. (Takes with 5 mg tablets) warfarin (COUMADIN) 5 mg tablet Take 15 mg every Mon, Wed; 12.5 mg all other days or as directed by anticoagulation clinic. (Takes with 10 mg tablets) rosuvastatin (CRESTOR) 20 mg tablet Take 1 tablet by mouth once daily. CPAP/BIPAP/OTHER Type .CPAPSettings into a note to see current settings/supplies/DME information. enoxaparin (LOVENOX) 120 mg/0.8 mL injection Inject 120 mg subcutaneously. (Patient not taking: Reported on 09/10/2024) CPAP/BIPAP/OTHER Continue ASV with current settings of EPAP 5 cm H2O with PS 4-12 cmH2O. Lifetime supplies for ASV, including patient preferred mask, head gear, heated tubing, humidity, filters, chin strap. Dx: Obstructive Sleep Apnea G47.33 DME: ROSEM[employer]IE aspirin 81 mg chewable tablet Take 1 tablet by mouth once daily. Melatonin 5 mg tab Take by mouth as needed. ACETAMINOPHEN (TYLENOL EXTRA STRENGTH ORAL) Take by mouth as needed. Prior Hypersomnia/Narcolepsy Medications (20 years) No data to display Prior RLS M (more content not included)... [facility] 10-11-2024 History of Presen t illness Narrative Images from the original note were not included. [facility] Follow up/ Established patient visit Date of last visit : 07/31/2024 I have communicated my name and active licensure. The patient's identity and physical location were verified at the time of this visit. Either the patient or their legal risk control representative has been informed of the risks and benefits of -- and alternatives to -- treatment through a remote evaluation and consents to proceed with the evaluation remotely. Interval history : He underwent a PSG on 09/17/2024 and presents virtually today to discuss the results and treatment plan. He has been using ASV intermittently recently. He finds that he sleep better with it. 09/17/2024 PSG: REM-Time REM AHI NREM-Time NREM AHI Total-Time Total AHI Supine 0.0 m -- 5.5 m 76.4 5.5 m 76.4 Off-Supine 15.5 m 19.4 171.0 m 7.7 186.5 m 8.7 Total 15.5 m 19.4 176.5 m 9.9 192.0 m 10.6 Sleep efficiency 47%. Low O2 93% 0 apneas, 34 hypopnea, 0 RERAs Severe, complex apnea on 2015 study. Mostly central in nature. He was experiencing cardiomyopathy, LBBB, and had a mitral valve replacement several months after the initial PSG. He has been on ASV since then. Recent average AHI is 0.1. He was admitted in July and told his O2 levels were remaining above 90% without ASV therapy while sleeping- which is why we ordered a repeat test. PATIENT-ENTERED QUESTIONNAIRE SLEEP SCORES 10/10/2024 Sleep Questions Reason for visit: Sleep apnea Average hours of CPAP per night: 6 Percent of nights CPAP used at least 4 hours: 60 Accidents or near accidents due to drowsy drivin 06/24/2022 07/24/2024 10/10/2024 Purdy Sleepiness Scale Score 7 (No clinically significant daytime sleepiness) 10 (No clinically significant daytime sleepiness) 9 (No clinically significant daytime sleepiness) 06/24/2022 07/24/2024 10/10/2024 PROMIS CAT Sleep Disturbance PROMIS Sleep Disturbance T-Score 56 (mild) 58 (mild) 62 (moderate) PROMIS Sleep Disturbance Percentile 27 21 12 09/27/2020 07/24/2024 10/10/2024 Insomnia Severity Index Score 13 17 17 06/24/2022 Restless Leg Syndrome Score 10 (Mild Symptoms) 04/14/2024 07/24/2024 10/10/2024 PHQ-9 Score 0 7 6 02/28/2024 04/18/2024 07/24/2024 PROMIS Global Health - (T-Scores - the mean of general population = 50. Five points is a clinically meaningful difference.) Physical T-Score 44.9 44.9 44.9 50.8 Mental T-Score 43.5 43.5 43.5 45.8 PMH, PSH, SH: reviewed SLEEP RELATED ROS Review of Systems Constitutional: Negative for fatigue, fever and recent unintentional weight change. Respiratory: Negative for difficulty breathing. Cardiovascular: Negative for chest pain and palpitations. Gastrointestinal: Positive for heartburn. ALLERGIES Allergen Reactions Codeine Mental Status Change Gluten GI Upset Sulfa Drugs [Sulfa * Myalgia CURRENT MEDICATIONS: CPAP/BIPAP/OTHER Type .CPAPSettings into a note to see current settings/supplies/DME information. metoprolol succinate ER (TOPROL XL) 50 mg 24 hr tablet Take 1 tablet by mouth once daily. Chlorhexidine Gluconate (PERIDEX) 0.12 % solution LORazepam (ATIVAN) 0.5 mg enoxaparin (LOVENOX) 120 mg/0.8 mL injection Inject 0.7mL (105mg) under the skin every 12 hours or as directed by the Coumadin Clinic (Patient not taking: Reported on 09/10/2024) dicyclomine (BENTYL) 10 mg capsule Take 1 capsule by mouth three times a day as needed (for abdominal pain). pantoprazole DR (PROTONIX) 40 mg tablet Take 1 tablet by mouth once daily. On empty stomach at least 30 minutes before eating. coenzyme Q10 (CO Q-10) 100 mg cap capsule Take 1 capsule by mouth once daily. warfarin (COUMADIN) 10 mg tablet Take 15 mg every Mon, Wed; 12.5 mg all other days or as directed by anticoagulation clinic. (Takes with 5 mg tablets) warfarin (COUMADIN) 5 mg tablet Take 15 mg every Mon, Wed; 12.5 mg all other days or as directed by anticoagulation clinic. (Takes with 10 mg tablets) rosuvastatin (CRESTOR) 20 mg tablet Take 1 tablet by mouth once daily. CPAP/BIPAP/OTHER Type .CPAPSettings into a note to see current settings/supplies/DME information. enoxaparin (LOVENOX) 120 mg/0.8 mL injection Inject 120 mg subcutaneously. (Patient not taking: Reported on 09/10/2024) CPAP/BIPAP/OTHER Continue ASV with current settings of EPAP 5 cm H2O with PS 4-12 cmH2O. Lifetime supplies for ASV, including patient preferred mask, head gear, heated tubing, humidity, filters, chin strap. Dx: Obstructive Sleep Apnea G47.33 DME: [employer] aspirin 81 mg chewable tablet Take 1 tablet by mouth once daily. Melatonin 5 mg tab Take by mouth as needed. ACETAMINOPHEN (TYLENOL EXTRA STRENGTH ORAL) Take by mouth as needed. Prior Hypersomnia/Narcolepsy Medications (20 years) No data to display Prior RLS Medications (last 20 years) 02/17/2015 14:00 RLS Medications hydromorphone HCl, hydromorphone HCl/PF 0.2 mg, INTRAVENOUS, EVERY 4 HOURS NEEDED, Starting 02/15/15 at 1509, Until 02/17/15 at 1400, Breakthrough Pain When patient is NPO or pain not relieved by oral pain medication -Discontinued (AUTO DC AT D) Details Hospital medication Prior Insomnia Medications (last 20 years) 09/10/2024 11:13 Insomnia Medications melatonin Take by mouth as needed. (5 mg tab) lorazepam (0.5 mg tab) Details Patient-reported PHYSICAL EXAMINATION: General appearance: NAD, well groomed HEENT: Normocephalic, atraumatic Neuro: Awake, alert, memory grossly intact, speech is fluent Respiratory: No increased work of breathing; able to speak in complete sentences Psych: Appropriate, normal affect IMPRESSION: Doreen (obstructive sleep apnea) (primary encounter diagnosis) Central sleep apnea treated with adaptive servo-ventilation (asv) device Georgie Elizabeth is a pleasant 54 year old male with PMH of CSA + DOREEN on ASV, HOCM, HTN, LBBB, mechanical heart valve, mitral stenosis. He has had 3 cardiac surgeries. A Polysomnogram performed on 11/22/2014 at [facility] revealed primary CSA (AHI of 15; 100% central apneas) that was associated with a minimum O2 saturation of 85% (4% hypopnea scoring; BMI 29.64). ASV titration study completed on 02/08/2012 at [facility] showed that ASV best controlled respiratory events at a max PS of 15 cmH2O, a minimum PS of 4 cmH2O and an EEP of 5 cmH2O (BMI 29.41). A PAP titration study completed on 01/25/2012 at [facility] showed complex sleep apnea uncontrolled with CPAP, BiPAP S, and BiPAP ST, and ASV titration was recommended (BMI 29.41). A PAP titration study completed on 01/17/2012 at [facility] showed frequent central apneas during CPAP titration. A Polysomnogram performed on 12/26/2011 at [facility] revealed mild DOREEN (AHI of 14; 15 obstructive apneas, 5 central apneas, 0 mixed; 7% central events) that was associated with a minimum O2 saturation of 89% (BMI 29.43). UPDATED PSG done on 09/17/2024 REM-Time REM AHI NREM-Time NREM AHI Total-Time Total AHI Supine 0.0 m -- 5.5 m 76.4 5.5 m 76.4 Off-Supine 15.5 m 19.4 171.0 m 7.7 186.5 m 8.7 Total 15.5 m 19.4 176.5 m 9.9 192.0 m 10.6 Sleep efficiency 47%. Low O2 93% 0 apneas, 34 hypopnea, 0 RERAs Average recent AHI with ASV is 0.1. He will attempt to use positional therapy for his mild apnea. We will also send an order to [facility] for supplies should he continue with ASV therapy. I explained that he is responding very well to therapy, and that his apnea is much more mild now than it was in 2015. PLAN: - Continue ASV - Can use positional therapy for mild DOREEN - Remember to clean your mask and equipment regularly, as directed. - You should be eligible for new supplies approximately every 3-6 months, depending on your insurance coverage. Contact your Durable Medical Equipment (DME) company for new supplies as needed. - Follow up in 6 months Magdy Ramirez PA-C I spent a total of 33 minutes on the date of the service which included preparing to see the patient, completing clinical documentation, obtaining and/or reviewing separately obtained history, communicating with other HCPs (not separately reported), communicating results to the patient/family/caregiver, and care coordination (not separately reported). documented in this encounter [facility] 10-09-2024 Telephone encounter Note Images from the original note were not included. [facility] 10-09-2024 Miscellaneous Notes Images from the original note were not included. documented in this encounter [facility] 09-28-2024 Telephone encounter Note I returned call to patient to discuss recent sleep study results. Per Magdy Ramirez PA-C no central events were noted on this sleep study. Pt can stop using his ASV device as long as he sleep on his side. We discussed an earlier appointment to review the results and treatment options in detail. He accepted an appt on 10/11/2024 at 8:30 am with Magdy Ramirez PA-C. I will cancel the appt on 11/08/2024. Patient expressed understanding. No other questions or concerns at this time. [facility] Work Phone: 09-28-2024 Miscellaneous Notes I returned call to patient to discuss recent sleep study results. Per Magdy Ramirez PA-C no central events were noted on this sleep study. Pt can stop using his ASV device as long as he sleep on his side. We discussed an earlier appointment to review the results and treatment options in detail. He accepted an appt on 10/11/2024 at 8:30 am with Magdy Ramirez PA-C. I will cancel the appt on 11/08/2024. Patient expressed understanding. No other questions or concerns at this time. SLEEP PHONE Name of caller: Georgie Relationship to patient : Self In-state or [id number] patient: [place]-State Was permission obtained from patient? Yes Patient identified by Name and Date of . ( Georgie Elizabeth, 1970). Yes Reason for Call : Called the office requesting to know if should be using cpap before his appt with Mike in October and if he'll be getting new supplies in the meantime Number to return call Okay to leave a message ? Yes Thank you calling [facility] [place]. You will receive a return call within 3 business days. If you feel that this is an urgent issue and needs immediate attention, it is recommended that you contact your primary care provider office or proceed to your Primary Care Provider, [facility], or Emergency Room for evaluation/treatment. documented in this encounter [facility] [facility] 09-28-2024 Telephone encounter Note [facility] Ambulatory Pharmacy Anticoagulation Clinic Anticoagulation Episode Summary Anticoagulation Care Providers Provider Role Specialty Phone number Saurav Bob MD Referring Internal Medicine [phone] Georgie Elizabeth is a 54 year old year old male patient being evaluated today for a Telemanagement visit. Patient is currently on the following anticoagulant(s) Warfarin. Labs Lab Results Component Value Date INR 3.3 09/28/2024 INR 2.8 09/15/2024 INR 3.2 08/24/2024 Lab Results Component Value Date HB 14.5 09/12/2024 HB 14.9 07/20/2024 HB 16.0 05/24/2024 Lab Results Component Value Date HCT 45.2 09/12/2024 HCT 46.0 07/20/2024 HCT 48.9 05/24/2024 Lab Results Component Value Date PLT 310 09/12/2024 PLT 308 07/20/2024 PLT 337 05/24/2024 Lab Results Component Value Date CREAT 0.82 09/12/2024 CREAT 0.83 07/20/2024 CREAT 0.76 05/24/2024 No components found for: [id number] Lab Results Component Value Date ALT 19 09/12/2024 ALT 33 05/24/2024 ALT 23 02/25/2024 Lab Results Component Value Date AST 18 09/12/2024 AST 27 05/24/2024 AST 20 02/25/2024 Estimated Creatinine Clearance: 141.6 mL/min (based on SCr of 0.82 mg/dL). ALLERGIES Allergen Reactions Codeine Mental Status Change Gluten GI Upset Sulfa Drugs [Sulfa * Myalgia Indication for Warfarin: Mechanical heart valve present 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 History of mitral valve replacement with mechanical valve Anticoagulation Episode Summary Current INR goal: 2.5-3.5 Assessment: INR result of 3.3 is therapeutic Plan: Current Warfarin Dosing As of 09/28/2024 Full warfarin instructions: 10 mg every Wed, Wed, Wed; 12.5 mg all other days Sent [employer] message Advised patient to continue current weekly dose as noted above Next home INR check scheduled on 10/12/2024 Patient advised to call the PAC with any medication changes, bleeding/bruising concerns, recent changes in vitamin k consumption, if any procedures are coming up, if they have been ill or in the hospital, and if they have missed any doses of warfarin. Gunnar Patel RPh Clinical Pharmacist, Pharmacy Anticoagulation Clinic Pharmacy Anticoagulation Clinic Pager: [phone]. [facility] 09-28-2024 Miscellaneous Notes [facility] Anticoagulation Clinic Anticoagulation Episode Summary Anticoagulation Care Providers Provider Role Specialty Phone number Saurav Bob MD Referring Internal Medicine [phone] Georgie Elizabeth is a 54 year old year old male patient being evaluated today for a Telemanagement visit. Patient is currently on the following anticoagulant(s) Warfarin. Labs Lab Results Component Value Date INR 3.3 09/28/2024 INR 2.8 09/15/2024 INR 3.2 08/24/2024 Lab Results Component Value Date HB 14.5 09/12/2024 HB 14.9 07/20/2024 HB 16.0 05/24/2024 Lab Results Component Value Date HCT 45.2 09/12/2024 HCT 46.0 07/20/2024 HCT 48.9 05/24/2024 Lab Results Component Value Date PLT 310 09/12/2024 PLT 308 07/20/2024 PLT 337 05/24/2024 Lab Results Component Value Date CREAT 0.82 09/12/2024 CREAT 0.83 07/20/2024 CREAT 0.76 05/24/2024 No components found for: [id number] Lab Results Component Value Date ALT 19 09/12/2024 ALT 33 05/24/2024 ALT 23 02/25/2024 Lab Results Component Value Date AST 18 09/12/2024 AST 27 05/24/2024 AST 20 02/25/2024 Estimated Creatinine Clearance: 141.6 mL/min (based on SCr of 0.82 mg/dL). ALLERGIES Allergen Reactions Codeine Mental Status Change Gluten GI Upset Sulfa Drugs [Sulfa * Myalgia Indication for Warfarin: Mechanical heart valve present senior care (current) use of anticoagulants History of mitral valve replacement with mechanical valve Anticoagulation Episode Summary Current INR goal: 2.5-3.5 Assessment: INR result of 3.3 is therapeutic Plan: Current Warfarin Dosing As of 09/28/2024 Full warfarin instructions: 10 mg every Wed, Wed, Wed; 12.5 mg all other days Sent [employer] message Advised patient to continue current weekly dose as noted above Next home INR check scheduled on 10/12/2024 Patient advised to call the PAC with any medication changes, bleeding/bruising concerns, recent changes in vitamin k consumption, if any procedures are coming up, if they have been ill or in the hospital, and if they have missed any doses of warfarin. Gunnar Patel RPh Clinical Pharmacist, Pharmacy Anticoagulation Clinic Pharmacy Anticoagulation Clinic Pager: [phone]. documented in this encounter [facility] 09-28-2024 Telephone encounter Note SLEEP PHONE Name of caller: Georgie Relationship to patient : Self In-state or [id number] patient: In-State Was permission obtained from patient? Yes Patient identified by Name and Date of . ( Georgie Elizabeth, 1970). Yes Reason for Call : Called the office requesting to know if should be using cpap before his appt with Mike in October and if he'll be getting new supplies in the meantime Number to return call Okay to leave a message ? Yes Thank you calling [facility] [place]. You will receive a return call within 3 business days. If you feel that this is an urgent issue and needs immediate attention, it is recommended that you contact your primary care provider office or proceed to your Primary Care Provider, nearest [facility], or Emergency Room for evaluation/treatment. [facility] 09-19-2024 Telephone encounter Note Call from patient requesting refill. Requested Prescriptions Pending Prescriptions Disp Refills metoprolol succinate ER (TOPROL XL) 50 mg 24 hr tablet 135 tablet 3 Sig: Take 1 tablet by mouth once daily. Patient last seen 05/19/2024 Jackelin Whitman [facility] Work Phone: 09-19-2024 Miscellaneous Notes Call from patient requesting refill. Requested Prescriptions Pending Prescriptions Disp Refills metoprolol succinate ER (TOPROL XL) 50 mg 24 hr tablet 135 tablet 3 Sig: Take 1 tablet by mouth once daily. Patient last seen 05/19/2024 Jackelin Martinezr Antonette documented in this encounter [facility] 09-18-2024 Note HNO ID: [id number] Author: ?, ?, ? Service: ? Author Type: ? Type: Progress Notes Filed: 09/18/2024 03:24 Note Text: Sleep Study Check-In Documentation Date: September 18, 2024 Name: Georgie Elizabeth Patient was accompanied by Self. Location: [place] Latex allergy: No Tape allergy: No Current medications were reviewed with the patient:Yes Sleep aid taken by patient for the sleep study: Yes Name of sleep aid: Melatonin, Ativan Procedure was explained to the patient and all questions were answered. PAP treatment discussed and shown to patient: Yes If PAP used enter mask info: Mask Name N/A Chin Sharp Used No Knowledge Program (KP): KP was not completed in [facility] by patient and accepted Study type: Polysomnogram Adverse Event: No (If yes create a new abstract) Comments: Patient was advised to follow up with their ordering provider regarding test results Angi Hand [facility] 09-18-2024 History of Presen t illness Narrative Sleep Study Check-In Documentation Date: September 18, 2024 Name: Georgie Perry Glenn Patient was accompanied by Self. Location: [place] Latex allergy: No Tape allergy: No Current medications were reviewed with the patient:Yes Sleep aid taken by patient for the sleep study: Yes Name of sleep aid: Melatonin, Ativan Procedure was explained to the patient and all questions were answered. PAP treatment discussed and shown to patient: Yes If PAP used enter mask info: Mask Name N/A Chin Sharp Used No Knowledge Program (KP): KP was not completed in [facility] by patient and accepted Study type: Polysomnogram Adverse Event: No (If yes create a new abstract) Comments: Patient was advised to follow up with their ordering provider regarding test results Angi Hand documented in this encounter [facility] 09-15-2024 Telephone encounter Note [facility] Ambulatory Pharmacy Anticoagulation Clinic Anticoagulation Episode Summary Anticoagulation Care Providers Provider Role Specialty Phone number BobSaurav banks MD Referring Internal Medicine [phone] Georgie Elizabeth is a 54 year old year old male patient being evaluated today for a Telemanagement visit. Patient is currently on the following anticoagulant(s) Warfarin. Labs Lab Results Component Value Date INR 2.8 09/15/2024 INR 3.2 08/24/2024 INR 2.8 08/10/2024 Lab Results Component Value Date HB 14.5 09/12/2024 HB 14.9 07/20/2024 HB 16.0 05/24/2024 Lab Results Component Value Date HCT 45.2 09/12/2024 HCT 46.0 07/20/2024 HCT 48.9 05/24/2024 Lab Results Component Value Date PLT 310 09/12/2024 PLT 308 07/20/2024 PLT 337 05/24/2024 Lab Results Component Value Date CREAT 0.82 09/12/2024 CREAT 0.83 07/20/2024 CREAT 0.76 05/24/2024 No components found for: [id number] Lab Results Component Value Date ALT 19 09/12/2024 ALT 33 05/24/2024 ALT 23 02/25/2024 Lab Results Component Value Date AST 18 09/12/2024 AST 27 05/24/2024 AST 20 02/25/2024 Estimated Creatinine Clearance: 141.6 mL/min (based on SCr of 0.82 mg/dL). ALLERGIES Allergen Reactions Codeine Mental Status Change Gluten GI Upset Sulfa Drugs [Sulfa * Myalgia Indication for Warfarin: Mechanical heart valve present 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 History of mitral valve replacement with mechanical valve Anticoagulation Episode Summary Current INR goal: 2.5-3.5 Assessment: INR result of 2.8 is therapeutic Plan: Current Warfarin Dosing As of 09/15/2024 Full warfarin instructions: 10 mg every Wed, Wed, Wed; 12.5 mg all other days Sent [employer] message Advised patient to continue current weekly dose as noted above Next home INR check scheduled on 09/29/2024 Patient advised to call the PAC with any medication changes, bleeding/bruising concerns, recent changes in vitamin k consumption, if any procedures are coming up, if they have been ill or in the hospital, and if they have missed any doses of warfarin. Jones West RPh Clinical Pharmacist, Pharmacy Anticoagulation Clinic Pharmacy Anticoagulation Clinic Pager: [phone]. [facility] 09-15-2024 Miscellaneous Notes [facility] Ambulatory Pharmacy Anticoagulation Clinic Anticoagulation Episode Summary Anticoagulation Care Providers Provider Role Specialty Phone number Saurav Bob MD Referring Internal Medicine [phone] Georgie Elizabeth is a 54 year old year old male patient being evaluated today for a Telemanagement visit. Patient is currently on the following anticoagulant(s) Warfarin. Labs Lab Results Component Value Date INR 2.8 09/15/2024 INR 3.2 08/24/2024 INR 2.8 08/10/2024 Lab Results Component Value Date HB 14.5 09/12/2024 HB 14.9 07/20/2024 HB 16.0 05/24/2024 Lab Results Component Value Date HCT 45.2 09/12/2024 HCT 46.0 07/20/2024 HCT 48.9 05/24/2024 Lab Results Component Value Date PLT 310 09/12/2024 PLT 308 07/20/2024 PLT 337 05/24/2024 Lab Results Component Value Date CREAT 0.82 09/12/2024 CREAT 0.83 07/20/2024 CREAT 0.76 05/24/2024 No components found for: [id number] Lab Results Component Value Date ALT 19 09/12/2024 ALT 33 05/24/2024 ALT 23 02/25/2024 Lab Results Component Value Date AST 18 09/12/2024 AST 27 05/24/2024 AST 20 02/25/2024 Estimated Creatinine Clearance: 141.6 mL/min (based on SCr of 0.82 mg/dL). ALLERGIES Allergen Reactions Codeine Mental Status Change Gluten GI Upset Sulfa Drugs [Sulfa * Myalgia Indication for Warfarin: Mechanical heart valve present 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 History of mitral valve replacement with mechanical valve Anticoagulation Episode Summary Current INR goal: 2.5-3.5 Assessment: INR result of 2.8 is therapeutic Plan: Current Warfarin Dosing As of 09/15/2024 Full warfarin instructions: 10 mg every Sun, Wed, Martha; 12.5 mg all other days Sent [employer] message Advised patient to continue current weekly dose as noted above Next home INR check scheduled on 09/29/2024 Patient advised to call the PAC with any medication changes, bleeding/bruising concerns, recent changes in vitamin k consumption, if any procedures are coming up, if they have been ill or in the hospital, and if they have missed any doses of warfarin. Jones West RPh Clinical Pharmacist, Pharmacy Anticoagulation Clinic Pharmacy Anticoagulation Clinic Pager: [phone]. documented in this encounter [facility] 09-10-2024 Note HNO ID: [id number] Author: JONATHAN WHITE MA Service: ? Author Type: Slip Cover Estimator Type: Progress Notes Filed: 09/10/2024 11:33 Note Text: Ambulatory Ear Lavage Pre-treatment: Warm water Treatment: Left ear Equipment and Irrigation solution and Volume used: Single use syringe with single use irrigation tip Water Return flow appearance: Brown Yellow Patient tolerated procedure: yes Tympanic membrane assessment: Tympanic membrane assessed by LIP pre and post procedure Jonathan White MA [facility] 09-10-2024 History of Presen t illness Narrative Ambulatory Ear Lavage Pre-treatment: Warm water Treatment: Left ear Equipment and Irrigation solution and Volume used: Single use syringe with single use irrigation tip Water Return flow appearance: Brown Yellow Patient tolerated procedure: yes Tympanic membrane assessment: Tympanic membrane assessed by LIP pre and post procedure Jonathan White MA Associated Order(s): Cerumen Removal Post-Procedure Diagnose(s): Impacted cerumen of left ear Subjective The history is provided by the patient. No language specialist was used. HPI Georgie Elizabeth is a 54 year old male who presents today for CC of left ear pressure. He denies any fever, chills, cough, congestion or runny nose. He has used no treatment or medication, he does have a h/o cerumen impaction. 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 [phone] Depression with anxiety obsessive compulsive disorder Gout 12/22/2022 HTN (hypertension) Hyperbilirubinemia 12/22/2022 Hyperlipemia Hypertension 11/16/2013 -cont home meds Hypertrophic obstructive cardiomyopathy 2013 s/p myectomy Mitral stenosis 2012 s/p re-do MVR with mechanical valve 11/13/13 Nephrolithiasis 2017 Obstructive sleep apnea 2012 Urethral stricture I have confirmed and edited as necessary, the [facility] Review of Systems Constitutional: Negative for chills, fever and malaise/fatigue. HENT: Positive for ear pain. Negative for congestion, sinus pain and sore throat. Respiratory: Negative for cough, sputum production, shortness of breath and wheezing. Cardiovascular: Negative for chest pain. Musculoskeletal: Negative for myalgias. Neurological: Negative for headaches. Objective Physical Exam Vitals and nursing note reviewed. HENT: Head: Normocephalic and atraumatic. Right Ear: Tympanic membrane, ear canal and external ear normal. Left Ear: Tympanic membrane, ear canal and external ear normal. There is impacted cerumen. Ears: Comments: Removed small amount with lighted currette, Lavage done of left ear by TIFFANIE Richter, patient tolerated well, able to see TM - see exam - normal after lavagae Pulmonary: Effort: Pulmonary effort is normal. Skin: General: Skin is warm and dry. Neurological: Mental Status: He is alert and oriented to person, place, and time. Psychiatric: Mood and Affect: Affect normal. Recording using [employer] software for draft documentation of the visit was discussed with the patient/authorized risk control representative; all questions welcomed and answered. Patient/authorized risk control representative agreed to proceed Differential Diagnoses - cerumen impaction is more likely for the following reason(s): suggested by H&P - AOM is less likely for the following reason(s): H&P not suggestive Cerumen Removal Performed by: Jasmin Greene APRN.CNP Authorized by: Jasmin Greene APRN.CNP Informed Consent Consent Obtained: Verbal [place] Protocol A moment to CARE was completed. SIGN IN Special Equipment: N/A Patient/Surrogate Stated/Verified: Patient name, Date of , Relevant allergies and Intended procedure TIME OUT Procedure details: Location: L ear Post-procedure details: Inspection: TM intact Hearing quality: Improved Patient tolerance of procedure: Tolerated well, no immediate complications SIGN OUT All instruments, equipment, possible retained foreign bodies accounted for. documented in this encounter [facility] 09-10-2024 Instructions Jasmin Greene APRN.CNP - 09/10/2024 11:25 AM EDT Use may use OTC Debrox or Cerumenex once a month for maintenance. Avoid inserting Q-tips into your ears. Follow up with your PCP as needed. documented in this encounter [facility] 09-10-2024 Note HNO ID: [id number] Author: JASMIN GREENE APRN.CNP Service: ? Author Type: Nurse Practitioner Type: Progress Notes Filed: 09/10/2024 11:33 Note Text: Subjective The history is provided by the patient. No language specialist was used. HPI Georgie Elizabeth is a 54 year old male who presents today for CC of left ear pressure. He denies any fever, chills, cough, congestion or runny nose. He has used no treatment or medication, he does have a h/o cerumen impaction. BP 110/78 Pulse (!) 57 Temp 36.3 ?C (97.4 ?F) (Tympanic) Resp 16 Wt 111.1 kg (244 lb 14.9 oz) SpO2 97% BMI 29.43 kg/m? 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 [phone] Depression with anxiety obsessive compulsive disorder Gout 12/22/2022 HTN (hypertension) Hyperbilirubinemia 12/22/2022 Hyperlipemia Hypertension 11/16/2013 -cont home meds Hypertrophic obstructive cardiomyopathy 2012 s/p myectomy Mitral stenosis 2012 s/p re-do MVR with mechanical valve 11/13/13 Nephrolithiasis 2017 Obstructive sleep apnea 2011 Urethral stricture I have confirmed and edited as necessary, the [facility] Review of Systems Constitutional: Negative for chills, fever and malaise/fatigue. HENT: Positive for ear pain. Negative for congestion, sinus pain and sore throat. Respiratory: Negative for cough, sputum production, shortness of breath and wheezing. Cardiovascular: Negative for chest pain. Musculoskeletal: Negative for myalgias. Neurological: Negative for headaches. Objective Physical Exam Vitals and nursing note reviewed. HENT: Head: Normocephalic and atraumatic. Right Ear: Tympanic membrane, ear canal and external ear normal. Left Ear: Tympanic membrane, ear canal and external ear normal. There is impacted cerumen. Ears: Comments: Removed small amount with lighted currette, Lavage done of left ear by TIFFANIE Richter, patient tolerated well, able to see TM - see exam - normal after lavagae Pulmonary: Effort: Pulmonary effort is normal. Skin: General: Skin is warm and dry. Neurological: Mental Status: He is alert and oriented to person, place, and time. Psychiatric: Mood and Affect: Affect normal. Recording using [employer] software for draft documentation of the visit was discussed with the patient/authorized risk control representative; all questions welcomed and answered. Patient/authorized risk control representative agreed to proceed Differential Diagnoses - cerumen impaction is more likely for the following reason(s): suggested by HANDP - AOM is less likely for the following reason(s): HANDP not suggestive Cerumen Removal Performed by: Jasmin Greene APRN.MANDY Authorized by: Jasmin Greene APRN.CNP Informed Consent Consent Obtained: Verbal [place] Protocol A moment to CARE was completed. SIGN IN Special Equipment: N/A Patient/Surrogate Stated/Verified: Patient name, Date of , Relevant allergies and Intended procedure TIME OUT Procedure details: Location: L ear Post-procedure details: Inspection: TM intact Hearing quality: Improved Patient tolerance of procedure: Tolerated well, no immediate complications SIGN OUT All instruments, equipment, possible retained foreign bodies accounted for. [facility] 08-17-2024 Note HNO ID: [id number] Author: TREV LOPEZ HUC Service: ? Author Type: Health Tentering Machine Off Bearer Type: Progress Notes Filed: 08/23/2024 09:59 Note Text: CMN RECEIVED BY [employer] VIA FAX, COMPLETED, AND PLACED IN PROVIDER MAILBOX FOR SIGNATURE Trev Lopez Career Development Director 08.17.2024 [employer] SENDING CMN: ROSEMARIE SIGNED AND DATED CMN, FAXED TO DME AND CONFIRMATION PAGE RECEIVED: 08.23.2024 [facility] 08-17-2024 History of Presen t illness Narrative CMN RECEIVED BY [employer] VIA FAX, COMPLETED, AND PLACED IN PROVIDER MAILBOX FOR SIGNATURE Trev Lopez Career Development Director 08.17.2024 [employer] SENDING CMN: MSC SIGNED AND DATED CMN, FAXED TO DME & CONFIRMATION PAGE RECEIVED: 08.23.2024 documented in this encounter [facility] 08-10-2024 Telephone encounter Note [facility] Ambulatory Pharmacy Anticoagulation Clinic Anticoagulation Episode Summary Anticoagulation Care Providers Provider Role Specialty Phone number Saurav Bob MD Referring Internal Medicine [phone] Georgie Elizabeth is a 54 year old year old male patient being evaluated today for a Telemanagement visit. Patient is currently on the following anticoagulant(s) Warfarin. Labs PT INR (no units) Date Value 10/04/2023 2.0 07/11/2023 2.8 johanna per pt 01/26/2023 4.8 (self-reporting) INR (POCT) (no units) Date Value 07/20/2024 1.0 INR Home CoaguChek (no units) Date Value 08/10/2024 2.8 07/27/2024 2.7 07/25/2024 1.9 Hemoglobin (g/dL) Date Value 07/20/2024 14.9 08/05/2015 14.6 Hematocrit (%) Date Value 07/20/2024 46.0 08/05/2015 43.7 Platelet Count (k/uL) Date Value 07/20/2024 308 08/05/2015 327 Creatinine (mg/dL) Date Value 07/20/2024 0.83 05/24/2024 0.76 02/25/2024 0.90 08/05/2015 1.09 08/05/2015 1.03 02/17/2015 0.99 Bilirubin, Total (mg/dL) Date Value 05/24/2024 1.5 08/05/2015 0.8 ALT (U/L) Date Value 05/24/2024 33 08/05/2015 34 AST (U/L) Date Value 05/24/2024 27 08/05/2015 23 Estimated Creatinine Clearance: 140.9 mL/min (based on SCr of 0.83 mg/dL). ALLERGIES Allergen Reactions Codeine Mental Status Change Gluten GI Upset Sulfa Drugs [Sulfa * Myalgia Indication for Warfarin: Mechanical heart valve present 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 History of mitral valve replacement with mechanical valve Anticoagulation Episode Summary Current INR goal: 2.5-3.5 Assessment: INR result of 2.8 is therapeutic Plan: Current Warfarin Dosing As of 08/10/2024 Full warfarin instructions: 10 mg every Wed, Wed, Wed; 12.5 mg all other days Sent [employer] message Advised patient to continue current weekly dose as noted above Next home INR check scheduled on 08/24/2024 Patient advised to call the PAC with any medication changes, bleeding/bruising concerns, recent changes in vitamin k consumption, if any procedures are coming up, if they have been ill or in the hospital, and if they have missed any doses of warfarin. Gunnar Patel [facility] Clinical Pharmacist, Pharmacy Anticoagulation Clinic Pharmacy Anticoagulation Clinic Pager: [phone]. [facility] 08-10-2024 Miscellaneous Notes [facility] Ambulatory Pharmacy Anticoagulation Clinic Anticoagulation Episode Summary Anticoagulation Care Providers Provider Role Specialty Phone number BobSaurav avery MD Referring Internal Medicine [phone] Georgie Elizabeth is a 54 year old year old male patient being evaluated today for a Telemanagement visit. Patient is currently on the following anticoagulant(s) Warfarin. Labs PT INR (no units) Date Value 10/04/2023 2.0 07/11/2023 2.8 johanna per pt 01/26/2023 4.8 (self-reporting) INR (POCT) (no units) Date Value 07/20/2024 1.0 INR Home CoaguChek (no units) Date Value 08/10/2024 2.8 07/27/2024 2.7 07/25/2024 1.9 Hemoglobin (g/dL) Date Value 07/20/2024 14.9 08/05/2015 14.6 Hematocrit (%) Date Value 07/20/2024 46.0 08/05/2015 43.7 Platelet Count (k/uL) Date Value 07/20/2024 308 08/05/2015 327 Creatinine (mg/dL) Date Value 07/20/2024 0.83 05/24/2024 0.76 02/25/2024 0.90 08/05/2015 1.09 08/05/2015 1.03 02/17/2015 0.99 Bilirubin, Total (mg/dL) Date Value 05/24/2024 1.5 08/05/2015 0.8 ALT (U/L) Date Value 05/24/2024 33 08/05/2015 34 AST (U/L) Date Value 05/24/2024 27 08/05/2015 23 Estimated Creatinine Clearance: 140.9 mL/min (based on SCr of 0.83 mg/dL). ALLERGIES Allergen Reactions Codeine Mental Status Change Gluten GI Upset Sulfa Drugs [Sulfa * Myalgia Indication for Warfarin: Mechanical heart valve present 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 History of mitral valve replacement with mechanical valve Anticoagulation Episode Summary Current INR goal: 2.5-3.5 Assessment: INR result of 2.8 is therapeutic Plan: Current Warfarin Dosing As of 08/10/2024 Full warfarin instructions: 10 mg every Wed, Wed, Wed; 12.5 mg all other days Sent [employer] message Advised patient to continue current weekly dose as noted above Next home INR check scheduled on 08/24/2024 Patient advised to call the PAC with any medication changes, bleeding/bruising concerns, recent changes in vitamin k consumption, if any procedures are coming up, if they have been ill or in the hospital, and if they have missed any doses of warfarin. Gunnar Patel RPh Clinical Pharmacist, Pharmacy Anticoagulation Clinic Pharmacy Anticoagulation Clinic Pager: [phone]. documented in this encounter [facility] 07-31-2024 Instructions Magdy Ramirez PA-C - 07/31/2024 2:12 PM EDT Magnesium 5-10mg along with magnesium glycinate 200-400mg about 90 minutes before bed. We will order a new sleep study to assess for sleep apnea. You had only central sleep apnea in your previous study, which can resolve as heart function improves. - Sleep apnea is a serious sleep disorder that occurs when a person's breathing is interrupted during sleep. People with untreated sleep apnea stop breathing repeatedly during their sleep, sometimes hundreds of times during the night. - The most common type of sleep apnea is obstructive sleep apnea. - If left untreated, obstructive sleep apnea can result in a number of health problems including hypertension, stroke, arrhythmias, cardiomyopathy (enlargement of the muscle tissue of the heart), heart failure, diabetes, obesity, and heart attacks. - Treatment options for obstructive sleep apnea may include positive airway pressure (PAP) therapy, oral appliance, hypoglossal nerve stimulator, nose/throat surgery, weight loss, side sleeping, or avoidance of medications or substances that can relax the airway muscles (alcohol, benzodiazepines, and opioids). - We have ordered a Polysomnogram (PSG) to evaluate for central sleep apnea. - This test should be scheduled at your earliest convenience. - Avoid driving if drowsy. We recommend that if you are dozing off while driving, that you do not drive until your sleepiness is appropriately treated. - We encourage a healthy lifestyle with adequate sleep (7-9 hours per night), diet and exercise. - Call [phone] to schedule your sleep study and follow up appointment if it is not scheduled after your visit today with one of our schedulers. Sleep Nurse Practitioners: Nathalie Bowen [facility] [address] [place] [address] [facility] [address] [place] [address] [facility] [address] [place] [address] Wednesday, Wednesday, Wednesday Appt: [phone] Yelitza Pena, PhD, [facility] [address] [address] [facility] [address] [place] [address] Mondays, Tuesdays & Wednesday Appt: [phone] Beti Olivera, [facility] [address] [place] [address] [facility] [address] [address] [facility] [address] [place] [address] Wednesday, Wednesday, Wednesday Appt: [phone] Ramila Wilson, [facility] [address] [place] [address] [facility] [address] [place] [address] [facility] [address] [address] Wednesday, , Wednesday Appt: [phone] Sepideh Resendez, [facility] [address] [facility] [place] [address] [facility] [address] [place] [address] Yg, Wednesday, Wednesday, Wednesday Appt: [phone] Nesha Hirsch CNP [facility] [address] [place] [address] [facility] [address] [place] [address] Wednesday, Wednesday, Wednesday, Wednesday Appt: [phone] Any appointments can be scheduled through the central scheduling system for the [facility] [place] at [phone]. [employer] now offers direct scheduling for patients to schedule appointments. Virtual visits are also available. If not covered by your insurance, there is a 35% discount. Please contact your insurance to determine coverage. Call the office at [phone], option #5 for questions. May use Message My Doc through My Chart for questions. May use My Chart Refills for refill requests. [facility] website: [email or web address] documented in this encounter [facility] 07-31-2024 Note HNO ID: [id number] Author: MAGDY RAMIREZ PA-C Service: ? Author Type: Physician Low Heel Builder Type: Progress Notes Filed: 08/01/2024 13:00 Note Text: [facility] Follow up/ Established patient visit Date of last visit : 08/03/2023 IMPRESSION: Central sleep apnea (primary encounter diagnosis) Doreen (obstructive sleep apnea) Central sleep apnea treated with adaptive servo-ventilation (asv) device Georgie Elizabeth is a pleasant 53 year old male with PMH of CSA + DOREEN on ASV, HOCM, HTN, LBBB, mechanical heart valve, mitral stenosis. He has had 3 cardiac surgeries. His most recent sleep study was completed about 1 year following his last cardiac surgery. (PSG 11/22/2014 at [facility] revealed primary CSA (AHI of 15; 100% central apneas) that was associated with a minimum O2 saturation of 85% (4% hypopnea scoring; BMI 29.64.)) He reports compliance with PAP therapy and perceived benefit of treatment. Last available download from device is 05/2022 and device is not present at today's visit. He has stopped using So Clean device as directed. He is using F20 mask with silicone cushion. Sample mask liner provided d/t rash. PLAN: - Continue ASV at current settings of EPAP 5 cmH2O with PS 4-12 cmH2O - Send the SD card to DME so we can check your PAP report - Remember to clean your mask and equipment regularly, as directed. - Avoid use of ozone section gang worker, SoClean devices, or UV cleaning devices - Avoid using alcohol or alcohol-containing products on your mask, as this may compromise the integrity of the mask materials and contribute to leak issues - Try RemZZZ or Silent Night mask liners to help reduce rash - Try the Gecko nasal gel pad for bridge of nose - You should be eligible for new supplies approximately every 3-6 months, depending on your insurance coverage. Contact your Durable Medical Equipment (DME) company for new supplies as needed. 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 He was in the ICU with sepsis after he had pneumonia. He was told his oxygen levels remained over 90% without any supplemental O2 or ASV. He takes melatonin 10mg, tylenol PM, nyquil. He was prescribed lorazepam 0.5mg nightly for sleep. SLEEP APNEA A Polysomnogram performed on 11/22/2014 at [facility] revealed primary CSA (AHI of 15; 100% central apneas) that was associated with a minimum O2 saturation of 85% (4% hypopnea scoring; BMI 29.64). ASV titration study completed on 02/08/2012 at [facility] showed that ASV best controlled respiratory events at a max PS of 15 cmH2O, a minimum PS of 4 cmH2O and an EEP of 5 cmH2O (BMI 29.41). A PAP titration study completed on 01/25/2012 at [facility] showed complex sleep apnea uncontrolled with CPAP, BiPAP S, and BiPAP ST, and ASV titration was recommended (BMI 29.41). A PAP titration study completed on 01/17/2012 at [facility] showed frequent central apneas during CPAP titration. A Polysomnogram performed on 12/26/2011 at [facility] revealed mild DOREEN (AHI of 14; 15 obstructive apneas, 5 central apneas, 0 mixed; 7% central events) that was associated with a minimum O2 saturation of 89% (BMI 29.43). Sleep apnea type : CSA Most Recent Apnea-Hypopnea Index (AHI): 0.1 Treatment : PAP therapy DME: Adriel Cardeans PAP History: Uses ASV for 7 hours per night, 7 nights per week. Current PAP setting: see report. Difficulties with ASV: Yes: difficulty staying asleep with mask on Reviewed objective PAP compliance data: yes AHI 0.1 There is not a perceived benefit by the patient Observers report abolition of snoring and respiratory events with ASV use. PATIENT-ENTERED QUESTIONNAIRE SLEEP SCORES 07/24/2024 Sleep Questions Reason for visit: Sleep apnea Difficulty falling or staying asleep or poor sleep quality Unsure On average, hours of sleep in 24 hours: 6 Average hours of CPAP per night: 6 Percent of nights CPAP used at least 4 hours: 98 Accidents or near accidents due to drowsy drivin Multiple values from one day are sorted in reverse-chronological order 09/27/2020 06/24/2022 07/24/2024 Purdy Sleepiness Scale Score 9 (No clinically significant daytime sleepiness) 7 (No clinically significant daytime sleepiness) 10 (No clinically significant daytime sleepiness) 09/27/2020 06/24/2022 07/24/2024 PROMIS CAT Sleep Disturbance PROMIS Sleep Disturbance T-Score 56 (mild) 56 (mild) 58 (mild) PROMIS Sleep Disturbance Percentile 27 27 21 02/07/2019 09/27/2020 07/24/2024 Insomnia Severity Index Score 12 13 17 06/24/2022 Restless Leg Syndrome Score 10 (Mild Symptoms) 04/09/2024 04/14/2024 07/24/2024 PHQ-9 Score 0 0 0 7 02/28/2024 (more content not included)... [facility] 07-31-2024 History of Presen t illness Narrative Images from the original note were not included. [facility] Follow up/ Established patient visit Date of last visit : 08/03/2023 IMPRESSION: Central sleep apnea (primary encounter diagnosis) Doreen (obstructive sleep apnea) Central sleep apnea treated with adaptive servo-ventilation (asv) device Georgie Elizabeth is a pleasant 53 year old male with PMH of CSA + DOREEN on ASV, HOCM, HTN, LBBB, mechanical heart valve, mitral stenosis. He has had 3 cardiac surgeries. His most recent sleep study was completed about 1 year following his last cardiac surgery. (PSG 11/22/2014 at [facility] revealed primary CSA (AHI of 15; 100% central apneas) that was associated with a minimum O2 saturation of 85% (4% hypopnea scoring; BMI 29.64.)) He reports compliance with PAP therapy and perceived benefit of treatment. Last available download from device is 05/2022 and device is not present at today's visit. He has stopped using So Clean device as directed. He is using F20 mask with silicone cushion. Sample mask liner provided d/t rash. PLAN: - Continue ASV at current settings of EPAP 5 cmH2O with PS 4-12 cmH2O - Send the SD card to DME so we can check your PAP report - Remember to clean your mask and equipment regularly, as directed. - Avoid use of ozone section gang worker, SoClean devices, or UV cleaning devices - Avoid using alcohol or alcohol-containing products on your mask, as this may compromise the integrity of the mask materials and contribute to leak issues - Try RemZZZ or Silent Night mask liners to help reduce rash - Try the Gecko nasal gel pad for bridge of nose - You should be eligible for new supplies approximately every 3-6 months, depending on your insurance coverage. Contact your [employer] ([employer]) company for new supplies as needed. 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 He was in the ICU with sepsis after he had pneumonia. He was told his oxygen levels remained over 90% without any supplemental O2 or ASV. He takes melatonin 10mg, tylenol PM, nyquil. He was prescribed lorazepam 0.5mg nightly for sleep. SLEEP APNEA A Polysomnogram performed on 11/22/2014 at [facility] revealed primary CSA (AHI of 15; 100% central apneas) that was associated with a minimum O2 saturation of 85% (4% hypopnea scoring; BMI 29.64). ASV titration study completed on 02/08/2012 at [facility] showed that ASV best controlled respiratory events at a max PS of 15 cmH2O, a minimum PS of 4 cmH2O and an EEP of 5 cmH2O (BMI 29.41). A PAP titration study completed on 01/25/2012 at [facility] showed complex sleep apnea uncontrolled with CPAP, BiPAP S, and BiPAP ST, and ASV titration was recommended (BMI 29.41). A PAP titration study completed on 01/17/2012 at [facility] showed frequent central apneas during CPAP titration. A Polysomnogram performed on 12/26/2011 at [facility] revealed mild DOREEN (AHI of 14; 15 obstructive apneas, 5 central apneas, 0 mixed; 7% central events) that was associated with a minimum O2 saturation of 89% (BMI 29.43). Sleep apnea type : CSA Most Recent Apnea-Hypopnea Index (AHI): 0.1 Treatment : PAP therapy DME: Adriel Cardenas PAP History: Uses ASV for 7 hours per night, 7 nights per week. Current PAP setting: see report. Difficulties with ASV: Yes: difficulty staying asleep with mask on Reviewed objective PAP compliance data: yes AHI 0.1 There is not a perceived benefit by the patient Observers report abolition of snoring and respiratory events with ASV use. PATIENT-ENTERED QUESTIONNAIRE SLEEP SCORES 07/24/2024 Sleep Questions Reason for visit: Sleep apnea Difficulty falling or staying asleep or poor sleep quality Unsure On average, hours of sleep in 24 hours: 6 Average hours of CPAP per night: 6 Percent of nights CPAP used at least 4 hours: 98 Accidents or near accidents due to drowsy drivin Multiple values from one day are sorted in reverse-chronological order 09/27/2020 06/24/2022 07/24/2024 Purdy Sleepiness Scale Score 9 (No clinically significant daytime sleepiness) 7 (No clinically significant daytime sleepiness) 10 (No clinically significant daytime sleepiness) 09/27/2020 06/24/2022 07/24/2024 PROMIS CAT Sleep Disturbance PROMIS Sleep Disturbance T-Score 56 (mild) 56 (mild) 58 (mild) PROMIS Sleep Disturbance Percentile 27 27 21 02/07/2019 09/27/2020 07/24/2024 Insomnia Severity Index Score 12 13 17 06/24/2022 Restless Leg Syndrome Score 10 (Mild Symptoms) 04/09/2024 04/14/2024 07/24/2024 PHQ-9 Score 0 0 0 7 02/28/2024 04/18/2024 07/24/2024 PROMIS Global Health - (T-Scores - the mean of general population = 50. Five points is a clinically meaningful difference.) Physical T-Score 44.9 44.9 44.9 50.8 Mental T-Score 43.5 43.5 43.5 45.8 PMH, PSH, SH: reviewed SLEEP RELATED ROS Review of Systems Constitutional: Negative for fatigue. Respiratory: Negative for difficulty breathing. Cardiovascular: Negative for chest pain and palpitations. Gastrointestinal: Negative for heartburn. Musculoskeletal: Negative for uncomfortable leg sensations. ALLERGIES Allergen Reactions Codeine Mental Status Change Gluten GI Upset Sulfa Drugs [Sulfa * Myalgia CURRENT MEDICATIONS: Chlorhexidine Gluconate (PERIDEX) 0.12 % solution LORazepam (ATIVAN) 0.5 mg metoprolol succinate ER (TOPROL XL) 50 mg 24 hr tablet Take 1 tablet by mouth once daily. dicyclomine (BENTYL) 10 mg capsule Take 1 capsule by mouth three times a day as needed (for abdominal pain). pantoprazole DR (PROTONIX) 40 mg tablet Take 1 tablet by mouth once daily. On empty stomach at least 30 minutes before eating. coenzyme Q10 (CO Q-10) 100 mg cap capsule Take 1 capsule by mouth once daily. warfarin (COUMADIN) 10 mg tablet Take 15 mg every Mon, Wed; 12.5 mg all other days or as directed by anticoagulation clinic. (Takes with 5 mg tablets) warfarin (COUMADIN) 5 mg tablet Take 15 mg every Mon, Wed; 12.5 mg all other days or as directed by anticoagulation clinic. (Takes with 10 mg tablets) rosuvastatin (CRESTOR) 20 mg tablet Take 1 tablet by mouth once daily. CPAP/BIPAP/OTHER Type .CPAPSettings into a note to see current settings/supplies/DME information. CPAP/BIPAP/OTHER Continue ASV with current settings of EPAP 5 cm H2O with PS 4-12 cmH2O. Lifetime supplies for ASV, including patient preferred mask, head gear, heated tubing, humidity, filters, chin strap. Dx: Obstructive Sleep Apnea G47.33 DME: [facility]SEM[facility] aspirin 81 mg chewable tablet Take 1 tablet by mouth once daily. Melatonin 5 mg tab Take by mouth as needed. ACETAMINOPHEN (TYLENOL EXTRA STRENGTH ORAL) Take by mouth as needed. enoxaparin (LOVENOX) 120 mg/0.8 mL injection Inject 0.7mL (105mg) under the skin every 12 hours or as directed by the Coumadin Clinic (Patient not taking: Reported on 07/31/2024) enoxaparin (LOVENOX) 120 mg/0.8 mL injection Inject 120 mg subcutaneously. (Patient not taking: Reported on 07/31/2024) Prior Hypersomnia/Narcolepsy Medications (20 years) No data to display Prior RLS Medications (last 20 years) 02/17/2015 14:00 RLS Medications hydromorphone HCl, hydromorphone HCl/PF 0.2 mg, INTRAVENOUS, EVERY 4 HOURS NEEDED, Starting 02/15/15 at 1509, Until 02/17/15 at 1400, Breakthrough Pain When patient is NPO or pain not relieved by oral pain medication -Discontinued (AUTO DC AT D) Details Hospital medication Prior Insomnia Medications (last 20 years) 07/31/2024 13:27 Insomnia Medications melatonin Take by mouth as needed. (5 mg tab) lorazepam (0.5 mg tab) Details Patient-reported PHYSICAL EXAMINATION: General appearance: NAD, well groomed HEENT: Normocephalic, atraumatic Neuro: Awake, alert, memory grossly intact, speech is fluent Respiratory: No increased work of breathing; able to speak in complete sentences Psych: Appropriate, normal affect IMPRESSION: Central sleep apnea (primary encounter diagnosis) Central sleep apnea treated with adaptive servo-ventilation (asv) device Georgie Elizabeth is a pleasant 53 year old male with PMH of CSA + DOREEN on ASV, HOCM, HTN, LBBB, mechanical heart valve, mitral stenosis. He has had 3 cardiac surgeries. His most recent sleep study was completed about 1 year following his last cardiac surgery. (PSG 11/22/2014 at [facility] revealed primary CSA (AHI of 15; 100% central apneas) that was associated with a minimum O2 saturation of 85% (4% hypopnea scoring; BMI 29.64.)) He has been on ASV therapy and uses his device nightly. AHI is 0.1. He was recently hospitalized and told his O2 did not drop while he was sleeping, without any intervention. He wonders if he may not need ASV therapy. His central apnea may have resolved since his study was done shortly after cardiac surgery. PLAN: We will order an in-lab PSG to assess for central apnea. If it still present- we will discuss ordering a new device as his is over 5 years old. F/u 2 weeks after the study Magdy Ramirez PA-C I spent a total of 34 minutes on the date of the service which included preparing to see the patient, [id number] patient care, completing clinical documentation, obtaining and/or reviewing separately obtained history, ordering medications, tests, or procedures, and care coordination (not separately reported). documented in this encounter [facility] 07-31-2024 Telephone encounter Note Images from the original note were not included. [facility] 07-31-2024 Miscellaneous Notes Images from the original note were not included. documented in this encounter [facility] 07-28-2024 Telephone encounter Note [facility] 07-28-2024 Miscellaneous Notes Re[facility]. Spoke with a risk control representative that stated she would fax that over to our office [place]. Fax number for our office was confirmed as [phone]. Waiting on report. documented in this encounter [facility] 07-28-2024 Telephone encounter Note [facility]. Spoke with a risk control representative that stated she would fax that over to our office [place]. Fax number for our office was confirmed as [phone]. Waiting on report. [facility] 07-27-2024 Telephone encounter Note [facility] Ambulatory Pharmacy Anticoagulation Clinic Anticoagulation Episode Summary Anticoagulation Care Providers Provider Role Specialty Phone number Saurav Bob MD Referring Internal Medicine [phone] Georgie Elizabeth is a 54 year old year old male patient being evaluated today for a Telemanagement visit. Patient is currently on the following anticoagulant(s) Warfarin and Enoxaparin. Labs PT INR (no units) Date Value 10/04/2023 2.0 07/11/2023 2.8 johanna per pt 01/26/2023 4.8 (self-reporting) INR (POCT) (no units) Date Value 07/20/2024 1.0 INR Home CoaguChek (no units) Date Value 07/27/2024 2.7 07/25/2024 1.9 07/07/2024 4.0 Hemoglobin (g/dL) Date Value 07/20/2024 14.9 08/05/2015 14.6 Hematocrit (%) Date Value 07/20/2024 46.0 08/05/2015 43.7 Platelet Count (k/uL) Date Value 07/20/2024 308 08/05/2015 327 Creatinine (mg/dL) Date Value 07/20/2024 0.83 05/24/2024 0.76 02/25/2024 0.90 08/05/2015 1.09 08/05/2015 1.03 02/17/2015 0.99 Bilirubin, Total (mg/dL) Date Value 05/24/2024 1.5 08/05/2015 0.8 ALT (U/L) Date Value 05/24/2024 33 08/05/2015 34 AST (U/L) Date Value 05/24/2024 27 08/05/2015 23 Estimated Creatinine Clearance: 141.6 mL/min (based on SCr of 0.83 mg/dL). ALLERGIES Allergen Reactions Codeine Mental Status Change Gluten GI Upset Sulfa Drugs [Sulfa * Myalgia Indication for Warfarin: Mechanical heart valve present 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 History of mitral valve replacement with mechanical valve Anticoagulation Episode Summary Current INR goal: 2.5-3.5 Assessment: INR result of 2.7 is therapeutic Indication for parenteral anticoagulant: Bridging therapy Parenteral anticoagulant supply: ? injections Is hgb, hct, plt stable?: Not assessed Plan: Current Warfarin Dosing As of 07/27/2024 Full warfarin instructions: 10 mg every Wed, e, Martha; 12.5 mg all other days Left voice message and sent [employer] Advised patient to continue current weekly dose as noted above Parenteral anticoagulant dose to take: Stop Next home INR check scheduled on 08/10/2024 Patient advised to call the PAC with any medication changes, bleeding/bruising concerns, recent changes in vitamin k consumption, if any procedures are coming up, if they have been ill or in the hospital, and if they have missed any doses of warfarin. Gunnar Patel RPh Clinical Pharmacist, Pharmacy Anticoagulation Clinic Pharmacy Anticoagulation Clinic Pager: [phone] . [facility] 07-27-2024 Miscellaneous Notes [facility] Ambulatory Pharmacy Anticoagulation Clinic Anticoagulation Episode Summary Anticoagulation Care Providers Provider Role Specialty Phone number Saurav Bob MD Referring Internal Medicine [phone] Georgie Elizabeth is a 54 year old year old male patient being evaluated today for a Telemanagement visit. Patient is currently on the following anticoagulant(s) Warfarin and Enoxaparin. Labs PT INR (no units) Date Value 10/04/2023 2.0 07/11/2023 2.8 johanna per pt 01/26/2023 4.8 (self-reporting) INR (POCT) (no units) Date Value 07/20/2024 1.0 INR Home CoaguChek (no units) Date Value 07/27/2024 2.7 07/25/2024 1.9 07/07/2024 4.0 Hemoglobin (g/dL) Date Value 07/20/2024 14.9 08/05/2015 14.6 Hematocrit (%) Date Value 07/20/2024 46.0 08/05/2015 43.7 Platelet Count (k/uL) Date Value 07/20/2024 308 08/05/2015 327 Creatinine (mg/dL) Date Value 07/20/2024 0.83 05/24/2024 0.76 02/25/2024 0.90 08/05/2015 1.09 08/05/2015 1.03 02/17/2015 0.99 Bilirubin, Total (mg/dL) Date Value 05/24/2024 1.5 08/05/2015 0.8 ALT (U/L) Date Value 05/24/2024 33 08/05/2015 34 AST (U/L) Date Value 05/24/2024 27 08/05/2015 23 Estimated Creatinine Clearance: 141.6 mL/min (based on SCr of 0.83 mg/dL). ALLERGIES Allergen Reactions Codeine Mental Status Change Gluten GI Upset Sulfa Drugs [Sulfa * Myalgia Indication for Warfarin: Mechanical heart valve present senior care (current) use of anticoagulants History of mitral valve replacement with mechanical valve Anticoagulation Episode Summary Current INR goal: 2.5-3.5 Assessment: INR result of 2.7 is therapeutic Indication for parenteral anticoagulant: Bridging therapy Parenteral anticoagulant supply: ? injections Is hgb, hct, plt stable?: Not assessed Plan: Current Warfarin Dosing As of 07/27/2024 Full warfarin instructions: 10 mg every Wed, Wed, Wed; 12.5 mg all other days Left voice message and sent MogoTix Advised patient to continue current weekly dose as noted above Parenteral anticoagulant dose to take: Stop Next home INR check scheduled on 08/10/2024 Patient advised to call the PAC with any medication changes, bleeding/bruising concerns, recent changes in vitamin k consumption, if any procedures are coming up, if they have been ill or in the hospital, and if they have missed any doses of warfarin. Gunnar Patel RPh Clinical Pharmacist, Pharmacy Anticoagulation Clinic Pharmacy Anticoagulation Clinic Pager: [phone] . documented in this encounter [facility] 07-25-2024 Telephone encounter Note [facility] Ambulatory Pharmacy Anticoagulation Clinic Anticoagulation Episode Summary Anticoagulation Care Providers Provider Role Specialty Phone number Saurav Bob MD Referring Internal Medicine [phone] Georgie Elizabeth is a 54 year old year old male patient being evaluated today for a Telemanagement visit. Patient is currently on the following anticoagulant(s) Warfarin and Enoxaparin. Labs PT INR (no units) Date Value 10/04/2023 2.0 07/11/2023 2.8 johanna per pt 01/26/2023 4.8 (self-reporting) INR (POCT) (no units) Date Value 07/20/2024 1.0 INR Home CoaguChek (no units) Date Value 07/25/2024 1.9 07/07/2024 4.0 06/15/2024 3.0 Hemoglobin (g/dL) Date Value 07/20/2024 14.9 08/05/2015 14.6 Hematocrit (%) Date Value 07/20/2024 46.0 08/05/2015 43.7 Platelet Count (k/uL) Date Value 07/20/2024 308 08/05/2015 327 Creatinine (mg/dL) Date Value 07/20/2024 0.83 05/24/2024 0.76 02/25/2024 0.90 08/05/2015 1.09 08/05/2015 1.03 02/17/2015 0.99 Bilirubin, Total (mg/dL) Date Value 05/24/2024 1.5 08/05/2015 0.8 ALT (U/L) Date Value 05/24/2024 33 08/05/2015 34 AST (U/L) Date Value 05/24/2024 27 08/05/2015 23 Estimated Creatinine Clearance: 141.6 mL/min (based on SCr of 0.83 mg/dL). ALLERGIES Allergen Reactions Codeine Mental Status Change Gluten GI Upset Sulfa Drugs [Sulfa * Myalgia Indication for Warfarin: Mechanical heart valve present senior care (current) use of anticoagulants History of mitral valve replacement with mechanical valve Anticoagulation Episode Summary Current INR goal: 2.5-3.5 Assessment: INR result of 1.9 is SUBtherapeutic due to: Re-titration post-procedure Indication for parenteral anticoagulant: Post - (Name of procedure) heart cath on 07/20 Parenteral anticoagulant supply: ? injections Is hgb, hct, plt stable?: Not assessed Plan: Current Warfarin Dosing As of 07/25/2024 Full warfarin instructions: 07/25: 12.5 mg; Otherwise 10 mg every Wed, e, Martha; 12.5 mg all other days Called and spoke to patient/caregiver Advised patient to 12.5 mg TuWed (07/25 & 07/26) Parenteral anticoagulant dose to take: 105 mg sq Q 12 hours Next home INR check scheduled on 07/27/2024 Patient verbalizes understanding of the plan. Patient denies need for refills. Patient advised to call the PAC with any medication changes, bleeding/bruising concerns, recent changes in vitamin k consumption, if any procedures are coming up, if they have been ill or in the hospital, and if they have missed any doses of warfarin. Next Action for Anticoag Management: TM 07/27 Gunnar Patel RPh Clinical Pharmacist, Pharmacy Anticoagulation Clinic Pharmacy Anticoagulation Clinic Pager: [phone] . [facility] 07-25-2024 Miscellaneous Notes [facility] Ambulatory Pharmacy Anticoagulation Clinic Anticoagulation Episode Summary Anticoagulation Care Providers Provider Role Specialty Phone number Saurav Bob MD Referring Internal Medicine [phone] Georgie Elizabeth is a 54 year old year old male patient being evaluated today for a Telemanagement visit. Patient is currently on the following anticoagulant(s) Warfarin and Enoxaparin. Labs PT INR (no units) Date Value 10/04/2023 2.0 07/11/2023 2.8 johanna per pt 01/26/2023 4.8 (self-reporting) INR (POCT) (no units) Date Value 07/20/2024 1.0 INR Home CoaguChek (no units) Date Value 07/25/2024 1.9 07/07/2024 4.0 06/15/2024 3.0 Hemoglobin (g/dL) Date Value 07/20/2024 14.9 08/05/2015 14.6 Hematocrit (%) Date Value 07/20/2024 46.0 08/05/2015 43.7 Platelet Count (k/uL) Date Value 07/20/2024 308 08/05/2015 327 Creatinine (mg/dL) Date Value 07/20/2024 0.83 05/24/2024 0.76 02/25/2024 0.90 08/05/2015 1.09 08/05/2015 1.03 02/17/2015 0.99 Bilirubin, Total (mg/dL) Date Value 05/24/2024 1.5 08/05/2015 0.8 ALT (U/L) Date Value 05/24/2024 33 08/05/2015 34 AST (U/L) Date Value 05/24/2024 27 08/05/2015 23 Estimated Creatinine Clearance: 141.6 mL/min (based on SCr of 0.83 mg/dL). 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 injections Is hgb, hct, plt stable?: Not assessed Plan: Current Warfarin Dosing As of 07/25/2024 Full warfarin instructions: 07/25: 12.5 mg; Otherwise 10 mg every Wed, Wed, Wed; 12.5 mg all other days Called and spoke to patient/caregiver Advised patient to 12.5 mg TuWed (07/25 & 07/26) Parenteral anticoagulant dose to take: 105 mg sq Q 12 hours Next home INR check scheduled on 07/27/2024 Patient verbalizes understanding of the plan. Patient denies need for refills. Patient advised to call the PAC with any medication changes, bleeding/bruising concerns, recent changes in vitamin k consumption, if any procedures are coming up, if they have been ill or in the hospital, and if they have missed any doses of warfarin. Next Action for Anticoag Management: TM 07/27 Gunnar Patel RPh Clinical Pharmacist, Pharmacy Anticoagulation Clinic Pharmacy Anticoagulation Clinic Pager: [phone] . documented in this encounter [facility] 07-24-2024 History of Presen t illness Narrative VIRTUAL VISIT FOLLOW UP I have communicated my name and active licensure. The patient's identity and physical location were verified at the time of this visit. Either the patient or their legal risk control representative has been informed of the risks and benefits of -- and alternatives to -- treatment through a remote evaluation and consents to proceed with the evaluation remotely. I had a virtual visit with Mr. Elizabeth today for follow up of generalized abd pain, gallstones, GERD, dysphagia. Surg hx positive for MVR, urethroplasty, adenoidectomy UPDATED HISTORY: Taking Protonix 40 mg daily, Bentyl PRN. Adhering to mostly GF diet Includes Protonix helps mostly for his heartburn and he has had good relief Notes occasional bloating sensations 2-3x per week. No further issues with abd pain. Notes some occasional dysphagia with solids. With probiotic smoothie having good regular Bms Repeat EGD recommended which pt did not schedule yet. S/P cardiac cath 07/20 due to abnormal stress test, no blockage. Advised to continue present medications Denies EtOH Celiac 2022 genetic risk low positive, negative for active disease CT chest/abd/pelv 06/2024 CT/CT Chest, Abd, Pel w/Contrast IMPRESSION: 1. Ground-glass pulmonary nodular opacities involving the right lung likely on an infectious inflammatory basis. 2. Cholelithiasis with no CT evidence of acute cholecystitis. 3. Nonobstructing lower pole left renal stones. 4. Colonic diverticulosis without diverticulitis. 5. No acute inflammatory changes involving the appendix however there is hyperdense material within the distal appendix with metallic spray artifact. 6. Additional findings as above. Esophagram 05/2024 IMPRESSION: Small sliding hiatal hernia with gastroesophageal reflux. RUQ US 05/2024 IMPRESSION: 1. Fatty liver. 2. Cholelithiasis without findings of cholecystitis. 3. Left renal cyst and possible angiomyolipoma. A 12 month follow-up renal ultrasound could be performed to assure stability of the echogenic lesion. Colonoscopy 2021 diverticulosis, 5 mm polyp EGD 10/2022 [place] Grade B esophagitis, bile reflux INTERPRETATION: B. Antrum, biopsy: -Negative for Helicobacter pylori organisms. D. Distal esophagus, biopsy; -No evidence of dysplasia GES 10/2022 IMPRESSION: 1. NORMAL 99m Tc sulfur colloid semi-solid phase (oatmeal) gastric emptying imaging examination. A. There is normal and preserved semi-solid phase gastric emptying compared to normal controls. (Marianne et al, J Nucl Med Tech 38: 186, 2010). HIDA 08/2022 IMPRESSION: 1. Gallbladder is visualized. Patent cystic and common bile ducts. No scintigraphic evidence of acute cholecystitis. 2. Normal gallbladder ejection fraction. Latest Ref Rng 05/24/2024 WBC 3.70 - 11.00 k/uL 6.71 RBC 4.20 - 6.00 m/uL 5.78 Hemoglobin 13.0 - 17.0 g/dL 16.0 Hematocrit 39.0 - 51.0 % 48.9 MCV 80.0 - 100.0 fL 84.6 MCH 26.0 - 34.0 pg 27.7 MCHC 30.5 - 36.0 g/dL 32.7 RDW-CV 11.5 - 15.0 % 13.8 Platelet Count 150 - 400 k/uL 337 MPV 9.0 - 12.7 fL 9.5 Neut% % 44.5 Abs Neut (ANC) 1.45 - 7.50 k/uL 2.98 Lymph% % 38.7 Abs Lymph 1.00 - 4.00 k/uL 2.60 Swift% % 13.0 Abs Swift <0.87 k/uL 0.87 (H) Eosin% % 2.8 Abs Eosin <0.46 k/uL 0.19 Baso% % 0.9 Abs Baso <0.11 k/uL 0.06 Immature Gran % % 0.1 IMMATURE GRANS (ABS) <0.10 k/uL <0.03 NRBC /100 WBC 0.0 Absolute nRBC <0.01 k/uL <0.01 DTYPE Auto Protein, Total 6.3 - 8.0 g/dL 7.4 Albumin 3.9 - 4.9 g/dL 4.9 Calcium 8.5 - 10.2 mg/dL 10.0 Bilirubin, Total 0.2 - 1.3 mg/dL 1.5 (H) Alkaline Phosphatase 38 - 113 U/L 67 AST 14 - 40 U/L 27 ALT 10 - 54 U/L 33 Glucose 74 - 99 mg/dL 105 (H) BUN 9 - 24 mg/dL 12 Creatinine 0.73 - 1.22 mg/dL 0.76 Sodium 136 - 144 mmol/L 140 Potassium 3.7 - 5.1 mmol/L 4.2 Chloride 98 - 107 mmol/L 101 CO2 22 - 30 mmol/L 28 Anion Gap 8 - 15 mmol/L 11 eGFR >=60 mL/min/1.73m 107 Lipase 16 - 61 U/L 33 Legend: (H) High OV 04/2024 Accompanied by sister Georgie Elizabeth is a 54 year old male here today for GERD (Sometimes has abdominal pain for a few days at a time). Surg hx positive for MVR, urethroplasty, adenoidectomy. Taking Protonix 40 mg daily for GERD with relief. Admits to epigastric pain for the past several mos, no change when eating. Experiencing intermittent dysphagia with solids. Has not noted any alleviating factors. Has been adhering to mostly gluten free diet. With probiotic smoothie daily, having regular Bms daily, no blood. Will occasionally take Aleve once every 3 mos, is aware he's not supposed to while being on coumadin. Denies N/V, weight loss, stress. 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 [phone] Depression with anxiety obsessive compulsive disorder Gout 12/22/2022 HTN (hypertension) Hyperbilirubinemia 12/22/2022 Hyperlipemia Hypertension 11/16/2013 -cont home meds Hypertrophic obstructive cardiomyopathy (HCC) 2013 s/p myectomy Mitral stenosis 2013 s/p re-do MVR with mechanical valve 11/13/13 Nephrolithiasis 2017 Obstructive sleep apnea 2012 Urethral stricture PAST SURGICAL HISTORY Procedure Laterality Date ADENOIDECTOMY HX 05/03/1986 COLONOSCOPY 05/03/2011 COLONOSCOPY SCREENING 01/08/2022 EGD DIAGNOSTIC 11/10/2022 PAST SURGICAL HISTORY OF 01/23/2013 mitral valve repair, #32 Valerie ring, ligation of left atrial appendage PAST SURGICAL HISTORY OF 11/13/2013 Myectomy and MVr with de leon band and valvuloplasty. PAST SURGICAL HISTORY OF 11/20/2013 redo sternotomy MVR with mechanical ON X valve (27/29 mm). PAST SURGICAL HISTORY OF 01/29/2015 BMG Urethroplasty TONSILLECTOMY HX 05/03/1986 FAMILY HISTORY Problem Relation Age of Onset other (Diverticulosis) Mother Heart Father [place], sudden 50's Colon Cancer Sister Heart Paternal Grandmother Social History Tobacco Use Smoking status: Never Smokeless tobacco: Never Vaping Use Vaping status: Never Used Substance Use Topics Alcohol use: No Comment: rarely Drug use: Never Current Outpatient Medications Medication Sig Dispense Refill enoxaparin (LOVENOX) 120 mg/0.8 mL injection Inject 0.7mL (105mg) under the skin every 12 hours or as directed by the Coumadin Clinic 20 Each 1 metoprolol succinate ER (TOPROL XL) 50 mg 24 hr tablet Take 1 tablet by mouth once daily. 135 tablet 3 dicyclomine (BENTYL) 10 mg capsule Take 1 capsule by mouth three times a day as needed (for abdominal pain). [address] (PROTONIX) 40 mg tablet Take 1 tablet by mouth once daily. On empty stomach at least 30 minutes before eating. 90 tablet 3 coenzyme Q10 (CO Q-10) 100 mg cap capsule Take 1 capsule by mouth once daily. warfarin (COUMADIN) 10 mg tablet Take 15 mg every Mon, Wed; 12.5 mg all other days or as directed by anticoagulation clinic. (Takes with 5 mg tablets) 90 tablet 2 warfarin (COUMADIN) 5 mg tablet Take 15 mg every Mon, Wed; 12.5 mg all other days or as directed by anticoagulation clinic. (Takes with 10 mg tablets) 90 tablet 1 rosuvastatin (CRESTOR) 20 mg tablet Take 1 tablet by mouth once daily. 90 tablet 0 CPAP/BIPAP/OTHER Type .CPAPSettings into a note to see current settings/supplies/DME information. 1 Each 0 enoxaparin (LOVENOX) 120 mg/0.8 mL injection Inject 120 mg subcutaneously. CPAP/BIPAP/OTHER Continue ASV with current settings of EPAP 5 cm H2O with PS 4-12 cmH2O. Lifetime supplies for ASV, including patient preferred mask, head gear, heated tubing, humidity, filters, chin strap. Dx: Obstructive Sleep Apnea G47.33 DME: [facility] 1 Each 0 aspirin 81 mg chewable tablet Take 1 tablet by mouth once daily. Melatonin 5 mg tab Take by mouth as needed. ACETAMINOPHEN (TYLENOL EXTRA STRENGTH ORAL) Take by mouth as needed. No current facility-administered medications for this visit. ALLERGIES Allergen Reactions Codeine Mental Status Change Gluten GI Upset Sulfa Drugs [Sulfa * Myalgia REVIEW OF SYSTEMS: PAIN ASSESSMENT: Negative for pain, history of chronic pain, or current treatment for a chronic pain condition. GENERAL: No weight loss, malaise or fevers RESPIRATORY: Negative for cough, hemoptysis, wheezing, COPD, dyspnea or shortness of breath CARDIOVASCULAR: Negative for chest pain, leg swelling, hypertension, CHF or palpitations GI: See HPI : No history of dysuria, frequency or incontinence PHYSICAL FINDINGS OF NOTE: General - Normal, healthy, cooperative, in no acute distress Able to interact verbally by video conference Psych - ORIENTATION: normal to time place, person and situation Mood/Affect: AFFECT AND MOOD: Normal Head/Neuro - Normal size and shape Facial appearance normal Pulmonary - respiratory effort normal Cardiovascular - patient describes extremities normal, warm, no cyanosis,no clubbing, and no edema Abdominal - Not performed Skin - abnormal lesions not visualized Motor - patient seen sitting with Normal appearing strength and coordination Anorectal exam - Not Performed Assessment/Plan (K21.00) Gastroesophageal reflux disease with esophagitis without hemorrhage (primary encounter diagnosis) (R13.10) Dysphagia, unspecified type (K80.20) Calculus of gallbladder without cholecystitis without obstruction (K76.0) Fatty metamorphosis of liver 1. Gastroesophageal reflux disease with esophagitis without hemorrhage (Primary) - Continue Protonix 40 mg daily - Advised to schedule EGD due to persistent sx of bloating, dysphagia. Consider change in PPI to Voquezna pending results 2. Dysphagia, unspecified type - As noted above 3. Calculus of gallbladder without cholecystitis without obstruction - Pt currently asymptomatic from these. Reminded of sx to watch out for and to contact me if any development 4. Fatty metamorphosis of liver - DDI VIBRATION CONTROLLED TRANSIENT ELASTOGRAPHY (VCTE) - Check fibroscan for initial evaluation - Encouraged weight loss, low fat Mediterranean diet Follow up in office 6 months/PRN. I spent a total of 20 minutes on the date of the service which included preparing to see the patient, [id number] patient care, completing clinical documentation, obtaining and/or reviewing separately obtained history, performing a medically appropriate examination, counseling and educating the patient/family/caregiver, ordering medications, tests, or procedures, communicating with other HCPs (not separately reported), independently interpreting results (not separately reported), communicating results to the patient/family/caregiver, and care coordination (not separately reported). Gayathri Sky PA-C July 24, 2024 12:41 PM documented in this encounter [facility] 07-24-2024 Note HNO ID: [id number] Author: GAYATHRI SKY PA-C Service: ? Author Type: Physician Low Heel Builder Type: Progress Notes Filed: 07/24/2024 12:45 Note Text: VIRTUAL VISIT FOLLOW UP I have communicated my name and active licensure. The patient's identity and physical location were verified at the time of this visit. Either the patient or their legal risk control representative has been informed of the risks and benefits of -- and alternatives to -- treatment through a remote evaluation and consents to proceed with the evaluation remotely. I had a virtual visit with Mr. Elizabeth today for follow up of generalized abd pain, gallstones, GERD, dysphagia. Surg hx positive for MVR, urethroplasty, adenoidectomy UPDATED HISTORY: Taking Protonix 40 mg daily, Bentyl PRN. Adhering to mostly GF diet Includes Protonix helps mostly for his heartburn and he has had good relief Notes occasional bloating sensations 2-3x per week. No further issues with abd pain. Notes some occasional dysphagia with solids. With probiotic smoothie having good regular Bms Repeat EGD recommended which pt did not schedule yet. S/P cardiac cath 07/20 due to abnormal stress test, no blockage. Advised to continue present medications Denies EtOH Celiac 2022 genetic risk low positive, negative for active disease CT chest/abd/pelv 06/2024 CT/CT Chest, Abd, Pel w/Contrast IMPRESSION: 1. Ground-glass pulmonary nodular opacities involving the right lung likely on an infectious inflammatory basis. 2. Cholelithiasis with no CT evidence of acute cholecystitis. 3. Nonobstructing lower pole left renal stones. 4. Colonic diverticulosis without diverticulitis. 5. No acute inflammatory changes involving the appendix however there is hyperdense material within the distal appendix with metallic spray artifact. 6. Additional findings as above. Esophagram 05/2024 IMPRESSION: Small sliding hiatal hernia with gastroesophageal reflux. RUQ US 05/2024 IMPRESSION: 1. Fatty liver. 2. Cholelithiasis without findings of cholecystitis. 3. Left renal cyst and possible angiomyolipoma. A 12 month follow-up renal ultrasound could be performed to assure stability of the echogenic lesion. Colonoscopy 2021 diverticulosis, 5 mm polyp EGD 10/2022 [place] Grade B esophagitis, bile reflux INTERPRETATION: B. Antrum, biopsy: -Negative for Helicobacter pylori organisms. D. Distal esophagus, biopsy; -No evidence of dysplasia GES 10/2022 IMPRESSION: 1. NORMAL 99m Tc sulfur colloid semi-solid phase (oatmeal) gastric emptying imaging examination. A. There is normal and preserved semi-solid phase gastric emptying compared to normal controls. (Marianne gomez al, J Nucl Med Tech 38: 186, 2010). HIDA 08/2022 IMPRESSION: 1. Gallbladder is visualized. Patent cystic and common bile ducts. No scintigraphic evidence of acute cholecystitis. 2. Normal gallbladder ejection fraction. Latest Ref Rng 05/24/2024 WBC 3.70 - 11.00 k/uL 6.71 RBC 4.20 - 6.00 m/uL 5.78 Hemoglobin 13.0 - 17.0 g/dL 16.0 Hematocrit 39.0 - 51.0 % 48.9 MCV 80.0 - 100.0 fL 84.6 MCH 26.0 - 34.0 pg 27.7 MCHC 30.5 - 36.0 g/dL 32.7 RDW-CV 11.5 - 15.0 % 13.8 Platelet Count 150 - 400 k/uL 337 MPV 9.0 - 12.7 fL 9.5 Neut% % 44.5 Abs Neut (ANC) 1.45 - 7.50 k/uL 2.98 Lymph% % 38.7 Abs Lymph 1.00 - 4.00 k/uL 2.60 Swift% % 13.0 Abs Swift <0.87 k/uL 0.87 (H) Eosin% % 2.8 Abs Eosin <0.46 k/uL 0.19 Baso% % 0.9 Abs Baso <0.11 k/uL 0.06 Immature Gran % % 0.1 IMMATURE GRANS (ABS) <0.10 k/uL <0.03 NRBC /100 WBC 0.0 Absolute nRBC <0.01 k/uL <0.01 DTYPE Auto Protein, Total 6.3 - 8.0 g/dL 7.4 Albumin 3.9 - 4.9 g/dL 4.9 Calcium 8.5 - 10.2 mg/dL 10.0 Bilirubin, Total 0.2 - 1.3 mg/dL 1.5 (H) Alkaline Phosphatase 38 - 113 U/L 67 AST 14 - 40 U/L 27 ALT 10 - 54 U/L 33 Glucose 74 - 99 mg/dL 105 (H) BUN 9 - 24 mg/dL 12 Creatinine 0.73 - 1.22 mg/dL 0.76 Sodium 136 - 144 mmol/L 140 Potassium 3.7 - 5.1 mmol/L 4.2 Chloride 98 - 107 mmol/L 101 CO2 22 - 30 mmol/L 28 Anion Gap 8 - 15 mmol/L 11 eGFR >=60 mL/min/1.73m? 107 Lipase 16 - 61 U/L 33 Legend: (H) High OV 04/2024 Accompanied by sister Georgie Elizabeth is a 54 year old male here today for GERD (Sometimes has abdominal pain for a few days at a time). Surg hx positive for MVR, urethroplasty, adenoidectomy. Taking Protonix 40 mg daily for GERD with relief. Admits to epigastric pain for the past several mos, no change when eating. Experiencing intermittent dysphagia with solids. Has not noted any alleviating factors. Has been adhering to mostly gluten free diet. With probiotic smoothie daily, having regular Bms daily, no blood. Will occasionally take Aleve once every 3 mos, is aware he's not supposed to while being on coumadin. Denies N/V, weight loss, stress. PAST MEDICAL HISTORY Diagnosis Date Adenomatous colon polyp 01/08/2022 Anticoagulation adequate Allen's esophagus 12/02 (more content not included)... [facility] 07-19-2024 Telephone encounter Note CARDIOVASCULAR LAB INSTRUCTIONS: Readiness to Learn: Cognitive Ability: Alert and oriented Motivation To Learn: Interested Family/Significant Other Support: Unable to assess - Family not present Instruction Provided To: Patient Patient Learns Best By: Verbal Instruction Factors Affecting Learning: None Physical Limitations Affecting Learning: None Learning Response: Procedure: Diagnostic Cath with Intervention Pre procedure education topics: Arrival time/NPO Status/Medications/Travel Instructions/Restrictions Patient/Family Response Evaluation: Verbalizes understanding Follow Up Plan and Medication: As directed by physician Instruction/Supplemental Material Given: Cardiac catheterization instructions, procedure information, hospital information, hotel information. Instructed By Sariah Jeffery RN. In Department of CARDIOLOGY. [facility] 07-19-2024 Miscellaneous Notes CARDIOVASCULAR LAB INSTRUCTIONS: Readiness to Learn: Cognitive Ability: Alert and oriented Motivation To Learn: Interested Family/Significant Other Support: Unable to assess - Family not present Instruction Provided To: Patient Patient Learns Best By: Verbal Instruction Factors Affecting Learning: None Physical Limitations Affecting Learning: None Learning Response: Procedure: Diagnostic Cath with Intervention Pre procedure education topics: Arrival time/NPO Status/Medications/Travel Instructions/Restrictions Patient/Family Response Evaluation: Verbalizes understanding Follow Up Plan and Medication: As directed by physician Instruction/Supplemental Material Given: Cardiac catheterization instructions, procedure information, hospital information, hotel information. Instructed By Sariah Jeffery RN. In Department of CARDIOLOGY. documented in this encounter [facility] 07-19-2024 Note HNO ID: [id number] Author: ROBERTO WHITEHEAD MD Service: Cardiovascular Medicine Author Type: Fellow Type: Plan of Care Filed: 07/20/2024 13:49 Note Text: PRECATH BRIEF NOTE Georgie Elizabeth 1970 REFERRING GEOGRAPHIC INFORMATION SYSTEMS ENGINEER: Maribel PLANNED PROCEDURE: Left heart cath +/- PCI INDICATION FOR PROCEDURE: Abnormal stress test SUMMARY: 54 year old M hx central sleep apnea, HTN, HLD, HCM s/p MV repair [place] 01/2013, but residual elevated gradients postop so underwent 10/2013 redo sternotomy septal myectomy OnX [facility] mitral valve. Presents for LHC +/- PCI after abnormal stress with atypical chest symptoms PATIENT INFORMATION Wt: 108.9 kg (240 lb) BMI: 28.83 kg/(m2) SMOKE: Tobacco Use: Never FAM HX: family history includes Colon Cancer in his sister; Diverticulosis in his mother; Heart in his father and paternal grandmother. LABS 02/25/24 LDL 82 05/24/24 Cr 0.76 05/24/24 Hgb 16.0 05/24/24 plt 337 07/07/24 home INR 4.0 PRE-PROCEDURAL PLANNING ANTI-PLATELET and ANTICOAGULATION: Warfarin/lovenox: Bridging for LHC with Lovenox, last dose 07/19 11am as scheduled. Last dose warfarin 07/14. Per pharmacy, if ok with cardiologists doing LHC, resume warfarin and continue bridge 3/20 pm Aspirin 81 ALLERGIES Allergen Reactions Codeine Mental Status Change Sulfa Drugs [Sulfa * Myalgia CORONARY ANATOMY: PRIOR PCI: n PRIOR BYPASS: n PRIOR CATH: 10/2013 pre cardiac surgery; nl coronaries R dom PRIOR IMAGING EKst deg AVB, LBBB TTE: 05/19/2024. Septal LVH. LVEF 55%. Nl RV. Borderline dilated aorta 3.9cm. OnX prosthetic MV replacement w trace MR, peak grad 13mmHg, mean grad 6mmHg STRESS TEST: 07/12/24 SPECT no scar, <10% ischemia LAD, low risk scan CTA/OTHER: 2013 ao root 3 cm to RCA, 3.4cm to LM, by echo PROCEDURAL PLANNING ACCESS: Likely r rad CATHETERS: possibly JR4 JL3.5 CURRENT OUTPATIENT MEDICATIONS: enoxaparin (LOVENOX) 120 mg/0.8 mL injectionInject 0.7mL (105mg) under the skin every 12 hours or as directed by the Coumadin ClinicDisp: 20 EachRfl: 1 metoprolol succinate ER (TOPROL XL) 50 mg 24 hr tabletTake 1 tablet by mouth once daily.Disp: 135 tabletRfl: 3 dicyclomine (BENTYL) 10 mg capsuleTake 1 capsule by mouth three times a day as needed (for abdominal pain).Disp: 30 capsuleRfl: [address] (PROTONIX) 40 mg tabletTake 1 tablet by mouth once daily. On empty stomach at least 30 minutes before eating.Disp: 90 tabletRfl: 3 coenzyme Q10 (CO Q-10) 100 mg cap capsuleTake 1 capsule by mouth once daily.Disp: Rfl: warfarin (COUMADIN) 10 mg tabletTake 15 mg every Mon, Wed; 12.5 mg all other days or as directed by anticoagulation clinic. (Takes with 5 mg tablets)Disp: 90 tabletRfl: 2 warfarin (COUMADIN) 5 mg tabletTake 15 mg every Mon, Wed; 12.5 mg all other days or as directed by anticoagulation clinic. (Takes with 10 mg tablets)Disp: 90 tabletRfl: 1 rosuvastatin (CRESTOR) 20 mg tabletTake 1 tablet by mouth once daily.Disp: 90 tabletRfl: 0 CPAP/BIPAP/OTHERType .CPAPSettings into a note to see current settings/supplies/DME information.Disp: 1 EachRfl: 0 enoxaparin (LOVENOX) 120 mg/0.8 mL injectionInject 120 mg subcutaneously.Disp: Rfl: CPAP/BIPAP/OTHERContinue ASV with current settings of EPAP 5 cm H2O with PS 4-12 cmH2O. Lifetime supplies for ASV, including patient preferred mask, head gear, heated tubing, humidity, filters, chin strap. Dx: Obstructive Sleep Apnea G47.33 DME: [facility]SEM[facility] NPI: [id number]: 1 EachRfl: 0 aspirin 81 mg chewable tabletTake 1 tablet by mouth once daily.Disp: Rfl: Melatonin 5 mg tabTake by mouth as needed. Disp: Rfl: ACETAMINOPHEN (TYLENOL EXTRA STRENGTH ORAL)Take by mouth as needed.Disp: Rfl: [facility] 07-14-2024 Telephone encounter Note Called pt. He tested and his INR was 4.1 today. He said he took aleve this AM. He said he isn't sure if he doubled up or not one day. Advised him to take 10mg today just due to the high INR. He will stop warfarin tomorrow as planned and followed. Asked him to call with any further questions or concerns. Next Action for Anti coag Management: TM 07/25 - post-procedure. Harini Cesar RPh [facility] 07-14-2024 Miscellaneous Notes Called pt. He tested and his INR was 4.1 today. He said he took aleve this AM. He said he isn't sure if he doubled up or not one day. Advised him to take 10mg today just due to the high INR. He will stop warfarin tomorrow as planned and followed. Asked him to call with any further questions or concerns. Next Action for Anti coag Management: TM 07/25 - post-procedure. Harini Cesar RPh Images from the original note were not included. Janae Cortes MD You1 hour ago (2:49 PM) Looks great, thank you so much. Janae. The following approved medication requests have been transmitted electronically. Requested Prescriptions Signed Prescriptions Disp Refills enoxaparin (LOVENOX) 120 mg/0.8 mL injection 20 Each 1 Sig: Inject 0.7mL (105mg) under the skin every 12 hours or as directed by the Coumadin Clinic Authorizing Provider: JANAE CORTES Ordering User: HARINI CESAR Pharmacy: [facility] [address] [place] [id number] - [address] - [phone] Since his INR was high at 4.0 last week and his range is 2.5-3.5, he may test later today or tomorrow so we can give him the best advise on dosing tomorrow ahead of d/c warfarin for the procedure. Otherwise, he is aware of the plan and I will send that via [employer]. Next Action for Anti coag Management: TM INR prior to starting his bridge. Harini Cesar RPh Images from the original note were not included. Janae Cortes MD You1 hour ago (12:36 PM) Let's please plan on 5 days, in the event for some reason they need a femoral approach. Thank you. [facility] Anticoagulation Perioperative Planning Georgie Elizabeth is an 54 year old male being evaluated today for perioperative planning. Indication for anticoagulation: Valve - On-X mitral valve in 2013. INR goal: 2.5-3.5 Referring physician: Saurav Bob Current anticoagulant: Warfarin Procedure: heart cath on 07/20/24 Procedural bleeding risk (see JACC appendix): Moderate Patient bleeding story: No Thrombosis risk: High Weight: Last 1 Encounter Wt Readings: Date: Wt: 05/19/2024 108.9 kg (240 lb) ALLERGIES Allergen Reactions Codeine Mental Status Change Sulfa Drugs [Sulfa * Myalgia Patient with history of HIT: No CBC/ PLT: Hemoglobin (g/dL) Date Value 05/24/2024 16.0 02/25/2024 15.3 08/03/2023 14.8 08/05/2015 14.6 08/05/2015 14.1 02/17/2015 12.2 Hematocrit (%) Date Value 05/24/2024 48.9 02/25/2024 46.6 08/03/2023 44.8 08/05/2015 43.7 08/05/2015 42.9 02/17/2015 37.8 Platelet Count Date Value Ref Range Status 05/24/2024 337 150 - 400 k/uL Final 02/25/2024 336 150 - 400 k/uL Final 08/03/2023 281 150 - 400 k/uL Final Renal function: Creatinine Date Value Ref Range Status 05/24/2024 0.76 0.73 - 1.22 mg/dL Final 02/25/2024 0.90 0.73 - 1.22 mg/dL Final 08/03/2023 0.85 0.73 - 1.22 mg/dL Final Serum creatinine: 0.76 mg/dL 05/24/24 1141 Estimated creatinine clearance: 151.5 mL/min Creatinine Clearance > 30 mL/min: Yes INR Home CoaguChek (no units) Date Value 07/07/2024 4.0 06/15/2024 3.0 06/10/2024 1.5 Current Warfarin Dosing As of 07/13/2024 Full warfarin instructions: 10 mg every Wed, Wed, Wed; 12.5 mg all other days Plan: Date Injectable medication: Lovenox Warfarin 07/14 None Last dose 07/15 None None 07/16 None None 07/17 105 mg every 12 hours None 07/18 105 mg every 12 hours None 07/19 105 mg in the morning only None 07/20 Procedure: heart cath Do not take injectable medication 12.5 mg after procedure if OK with physician doing procedure 07/21 105 mg every 12 hours 12.5 mg 07/22 105 mg every 12 hours 12.5 mg 07/23 105 mg every 12 hours 12.5 mg 07/24 105 mg every 12 hours 12.5 mg 07/25 105 mg every 12 hours Continue injectable medication until INR in target range INR check with [employer] home meter Patient is being asked to follow the above instructions pre and post-procedure unless otherwise specified by proceduralist. Has patient used LMWH/UFH heparin before? Yes Does patient require injection technique instructions/education? No Does the patient require a new prescription for injections? Yes Send new prescription to the following pharmacy: will ask upon approval Next action for Anticoagulation Management: [facility] awaiting approval Bridge plan established and routed to the following: [facility] for approval Harini Cesar RPh Clinical Pharmacist, Pharmacy Anticoagulation Clinic Pharmacy Anticoagulation Clinic Pager: [phone] Dr. Vasquez, can you please let us know how long you would like him to hold (if at all) prior to the heart cath on 07/20? Thanks, Harini Cesar RPh Jackelin with Dr. Cortes's office called to let us know patient is to have a left heart cath procedure 07/20/2024. Will route to [facility] at this time to finalize a plan for the patient. Brandon Carl ([employer]) documented in this encounter [facility] 07-13-2024 Telephone encounter Note Images from the original note were not included. Janae Cortes MD You1 hour ago (2:49 PM) Looks great, thank you so much. Janae. The following approved medication requests have been transmitted electronically. Requested Prescriptions Signed Prescriptions Disp Refills enoxaparin (LOVENOX) 120 mg/0.8 mL injection 20 Each 1 Sig: Inject 0.7mL (105mg) under the skin every 12 hours or as directed by the Coumadin Clinic Authorizing Provider: JANAE CORTES Ordering User: HARINI CESAR Pharmacy: [facility] [address] [place] [phone] - [address] - [phone] Since his INR was high at 4.0 last week and his range is 2.5-3.5, he may test later today or tomorrow so we can give him the best advise on dosing tomorrow ahead of d/c warfarin for the procedure. Otherwise, he is aware of the plan and I will send that via [employer]. Next Action for Anti coag Management: TM INR prior to starting his bridge. Harini Cesar RPh [facility] 07-13-2024 Telephone encounter Note Images from the original note were not included. Janae Cortes MD You1 hour ago (12:36 PM) Let's please plan on 5 days, in the event for some reason they need a femoral approach. Thank you. [facility] Anticoagulation Perioperative Planning Georgie Elizabeth is an 54 year old male being evaluated today for perioperative planning. Indication for anticoagulation: Valve - On-X mitral valve in 2013. INR goal: 2.5-3.5 Referring physician: Saurav Bob Current anticoagulant: Warfarin Procedure: heart cath on 07/20/24 Procedural bleeding risk (see JACC appendix): Moderate Patient bleeding story: No Thrombosis risk: High Weight: Last 1 Encounter Wt Readings: Date: Wt: 05/19/2024 108.9 kg (240 lb) ALLERGIES Allergen Reactions Codeine Mental Status Change Sulfa Drugs [Sulfa * Myalgia Patient with history of HIT: No CBC/ PLT: Hemoglobin (g/dL) Date Value 05/24/2024 16.0 02/25/2024 15.3 08/03/2023 14.8 08/05/2015 14.6 08/05/2015 14.1 02/17/2015 12.2 Hematocrit (%) Date Value 05/24/2024 48.9 02/25/2024 46.6 08/03/2023 44.8 08/05/2015 43.7 08/05/2015 42.9 02/17/2015 37.8 Platelet Count Date Value Ref Range Status 05/24/2024 337 150 - 400 k/uL Final 02/25/2024 336 150 - 400 k/uL Final 08/03/2023 281 150 - 400 k/uL Final Renal function: Creatinine Date Value Ref Range Status 05/24/2024 0.76 0.73 - 1.22 mg/dL Final 02/25/2024 0.90 0.73 - 1.22 mg/dL Final 08/03/2023 0.85 0.73 - 1.22 mg/dL Final Serum creatinine: 0.76 mg/dL 05/24/24 1141 Estimated creatinine clearance: 151.5 mL/min Creatinine Clearance > 30 mL/min: Yes INR Home CoaguChek (no units) Date Value 07/07/2024 4.0 06/15/2024 3.0 06/10/2024 1.5 Current Warfarin Dosing As of 07/13/2024 Full warfarin instructions: 10 mg every Wed, Wed, Wed; 12.5 mg all other days Plan: Date Injectable medication: Lovenox Warfarin 07/14 None Last dose 07/15 None None 07/16 None None 07/17 105 mg every 12 hours None 07/18 105 mg every 12 hours None 07/19 105 mg in the morning only None 07/20 Procedure: heart cath Do not take injectable medication 12.5 mg after procedure if OK with physician doing procedure 07/21 105 mg every 12 hours 12.5 mg / 105 mg every 12 hours 12.5 mg / 105 mg every 12 hours 12.5 mg /24 105 mg every 12 hours 12.5 mg /25 105 mg every 12 hours Continue injectable medication until INR in target range INR check with [employer] home meter Patient is being asked to follow the above instructions pre and post-procedure unless otherwise specified by proceduralist. Has patient used LMWH/UFH heparin before? Yes Does patient require injection technique instructions/education? No Does the patient require a new prescription for injections? Yes Send new prescription to the following pharmacy: will ask upon approval Next action for Anticoagulation Management: [facility] awaiting approval Bridge plan established and routed to the following: [facility] for approval Harini Cesar RPh Clinical Pharmacist, Pharmacy Anticoagulation Clinic Pharmacy Anticoagulation Clinic Pager: [phone] [facility] 07-13-[address] Vasquez, can you please let us know how long you would like him to hold (if at all) prior to the heart cath on 07/20? Thanks, Harini Cesar RPh [facility] 07-13-2024 Telephone encounter Note Jackelin with Dr. Cortes's office called to let us know patient is to have a left heart cath procedure 07/20/2024. Will route to [facility] at this time to finalize a plan for the patient. Brandon Carl ([employer]) [facility] 07-12-2024 History of Presen t illness Narrative RADIOLOGY SERVICE PROGRESS NOTE SERVICE DATE: 07/12/2024 SERVICE TIME: 12:11 PM PATIENT IDENTITY VERIFICATION COMPLETED USING TWO (2) STANDARD IDENTIFIERS: Name and Date of confirmed by patient verbally and Name and Date of confirmed by identification band FALL SCREENING: Has the patient had 2 falls in the last year or 1 fall with injury or currently using an Ambulatory Assistive Device (Walker, Cane, Wheelchair, Crutches, etc.)? No PATIENT GENDER DATA: .male ALLERGIES: Reviewed and unchanged MEDICATIONS REVIEWED: Yes PATIENT RELEVANT IMPLANT DATA REVIEWED: Not Applicable PATIENT PRESENTS WITH AN IMPLANTABLE OR ATTACHED [employer] OPERATOR: No CREATININE: Creatinine Date Value Ref Range Status 05/24/2024 0.76 0.73 - 1.22 mg/dL Final 02/25/2024 0.90 0.73 - 1.22 mg/dL Final 08/03/2023 0.85 0.73 - 1.22 mg/dL Final Estimated Glomerular Filtration Rate Date Value Ref Range Status 05/24/2024 107 >=60 mL/min/1.73m Final Comment: Estimated Glomerular Filtration Rate (eGFR) is calculated using the 2020 CKD-EPI creatinine equation. This equation utilizes serum creatinine, sex, and age as parameters. The creatinine assay has traceable calibration to isotope dilution-mass spectrometry. Refer to KDIGO guidelines for clinical interpretation. In patients with unstable renal function, e.g. those with acute kidney injury, the eGFR may not accurately reflect actual GFR. eGFR- Date Value Ref Range Status 08/05/2015 >60 Final P.O.C.T. RESULTS: N/A July 12, [address] PERFORMED: No IV SITE: Ambulatory: A peripheral IV was started in the Right antecubital site with a Angio cath: 22 gauge. POST EXAM PIV STATUS: Discontinued PROCEDURE TYPE: NM Stress: 11.1mCi [id number] was administered IV for Rest Imaging at 1209 by nelia garza. 32.4 mCi [id number] was administered IV for Stress Imaging at 1318 by CHARLOTTE Castro). PATIENT DISCHARGED TO: Ambulatory patient, left [place] department area. Is this a therapy: No A Diagnostic radioactive procedure has taken place, with no further precautions necessary other than routine body substance precautions. More information regarding radiation safety can be found using this link: [email or web address] [email or web address]%20N uclear%20Medicine%20Procedures.p df SIGNATURE: Renetta Garza [employer] PATIENT NAME: Georgie Elizabeth DATE: July 12, 2024 TIME: 12:11 PM PAGER/CONTACT #: [phone] RADIOLOGY SERVICE PROGRESS NOTE SERVICE DATE: 07/12/2024 SERVICE TIME: 1:24 PM PATIENT IDENTITY VERIFICATION COMPLETED USING TWO (2) STANDARD IDENTIFIERS: Name and Date of confirmed by patient verbally and Name and Date of confirmed by identification band PATIENT GENDER DATA: male : No ALLERGIES: Reviewed and unchanged MEDICATIONS REVIEWED BY: Stone And Plate Preparer Apprentice and Roz Jalloh RN PROCEDURE TYPE: NM STRESS: 0.4 mg of Lexiscan was administered IV at 1318 by Roz Jalloh RN. Reversal agent used: None. Expiration date: 01/2026 Lot#: [id number] IV SITE: Ambulatory: A Saline lock was inserted per protocol POST EXAM PIV STATUS: Discontinued PATIENT DISCHARGED TO: Ambulatory patient, left [place] department area. A Diagnostic radioactive procedure has taken place, with no further precautions necessary other than routine body substance precautions. More information regarding radiation safety can be found using this link: [email or web address] [email or web address]-%20Diagnostic%20N uclear%20Medicine%20Procedures.p df SIGNATURE: Roz Jalloh RN PATIENT NAME: Georgie Elizabeth DATE: July 12, 2024 TIME: 1:24 PM PAGER/CONTACT #: documented in this encounter [facility] 07-12-2024 Note HNO ID: [id number] Author: LARS TAVAREZ RT(R) Service: Nuclear Medicine Author Type: Technologist Type: Progress Notes Filed: 07/12/2024 13:26 Note Text: RADIOLOGY SERVICE PROGRESS NOTE SERVICE DATE: 07/12/2024 SERVICE TIME: 12:11 PM PATIENT IDENTITY VERIFICATION COMPLETED USING TWO (2) STANDARD IDENTIFIERS: Name and Date of confirmed by patient verbally and Name and Date of confirmed by identification band FALL SCREENING: Has the patient had 2 falls in the last year or 1 fall with injury or currently using an Ambulatory Assistive Device (Walker, Cane, Wheelchair, Crutches, etc.)? No PATIENT GENDER DATA: .male ALLERGIES: Reviewed and unchanged MEDICATIONS REVIEWED: Yes PATIENT RELEVANT IMPLANT DATA REVIEWED: Not Applicable PATIENT PRESENTS WITH AN IMPLANTABLE OR ATTACHED [employer] OPERATOR: No CREATININE: Creatinine Date Value Ref Range Status 05/24/2024 0.76 0.73 - 1.22 mg/dL Final 02/25/2024 0.90 0.73 - 1.22 mg/dL Final 08/03/2023 0.85 0.73 - 1.22 mg/dL Final Estimated Glomerular Filtration Rate Date Value Ref Range Status 05/24/2024 107 >=60 mL/min/1.73m? Final Comment: Estimated Glomerular Filtration Rate (eGFR) is calculated using the 2020 CKD-EPI creatinine equation. This equation utilizes serum creatinine, sex, and age as parameters. The creatinine assay has traceable calibration to isotope dilution-mass spectrometry. Refer to KDIGO guidelines for clinical interpretation. In patients with unstable renal function, e.g. those with acute kidney injury, the eGFR may not accurately reflect actual GFR. eGFR- Date Value Ref Range Status 08/05/2015 >60 Final P.O.C.T. RESULTS: N/A July 12, [address] PERFORMED: No IV SITE: Ambulatory: A peripheral IV was started in the Right antecubital site with a Angio cath: 22 gauge. POST EXAM PIV STATUS: Discontinued PROCEDURE TYPE: NM Stress: 11.1mCi Af55e-Pzsgeie was administered IV for Rest Imaging at 1209 by nelia garza. 32.4 mCi Zi62f-Ufqeybg was administered IV for Stress Imaging at 1318 by RT Matthew([place]). PATIENT DISCHARGED TO: Ambulatory patient, left [place] department area. Is this a therapy: No A Diagnostic radioactive procedure has taken place, with no further precautions necessary other than routine body substance precautions. More information regarding radiation safety can be found using this link: [email or web address] [email or web address]-% 20Diagnostic%20Nuclear%20Medicin e%20Procedures.pdf SIGNATURE: Renetta Garza PATIENT NAME: Georgie lEizabeth DATE: July 12, 2024 TIME: 12:11 PM PAGER/CONTACT #: [phone] [facility] 07-12-2024 Note HNO ID: [id number] Author: ROZ JALLOH RN Service: Radiology Author Type: Registered Nurse Type: Progress Notes Filed: 07/12/2024 13:25 Note Text: RADIOLOGY SERVICE PROGRESS NOTE SERVICE DATE: 07/12/2024 SERVICE TIME: 1:24 PM PATIENT IDENTITY VERIFICATION COMPLETED USING TWO (2) STANDARD IDENTIFIERS: Name and Date of confirmed by patient verbally and Name and Date of confirmed by identification band PATIENT GENDER DATA: male : No ALLERGIES: Reviewed and unchanged MEDICATIONS REVIEWED BY: Stone And Plate Preparer Apprentice and Roz Jalloh RN PROCEDURE TYPE: NM STRESS: 0.4 mg of Lexiscan was administered IV at 1318 by Roz Jalloh RN. Reversal agent used: None. Expiration date: 01/2026 Lot#: [id number] IV SITE: Ambulatory: A Saline lock was inserted per protocol POST EXAM PIV STATUS: Discontinued PATIENT DISCHARGED TO: Ambulatory patient, left [place] department area. A Diagnostic radioactive procedure has taken place, with no further precautions necessary other than routine body substance precautions. More information regarding radiation safety can be found using this link: [email or web address] 0Protection%20-% 20Diagnostic%20Nuclear%20Medicin e%20Procedures.pdf SIGNATURE: Roz Jalloh RN PATIENT NAME: Georgie Elizabeth DATE: July 12, 2024 TIME: 1:24 PM PAGER/CONTACT #: [facility] 07-07-2024 Telephone encounter Note [facility] Ambulatory Pharmacy Anticoagulation Clinic Anticoagulation Episode Summary Anticoagulation Care Providers Provider Role Specialty Phone number Saurav Bob MD Referring Internal Medicine [phone] Georgie Elizabeth is a 54 year old year old male patient being evaluated today for a Telemanagement visit. Patient is currently on the following anticoagulant(s) Warfarin. Labs PT INR (no units) Date Value 10/04/2023 2.0 07/11/2023 2.8 johanna per pt 01/26/2023 4.8 (self-reporting) INR Home CoaguChek (no units) Date Value 07/07/2024 4.0 06/15/2024 3.0 06/10/2024 1.5 Hemoglobin (g/dL) Date Value 05/24/2024 16.0 08/05/2015 14.6 Hematocrit (%) Date Value 05/24/2024 48.9 08/05/2015 43.7 Platelet Count (k/uL) Date Value 05/24/2024 337 08/05/2015 327 Creatinine (mg/dL) Date Value 05/24/2024 0.76 02/25/2024 0.90 08/03/2023 0.85 08/05/2015 1.09 08/05/2015 1.03 02/17/2015 0.99 Bilirubin, Total (mg/dL) Date Value 05/24/2024 1.5 08/05/2015 0.8 ALT (U/L) Date Value 05/24/2024 33 08/05/2015 34 AST (U/L) Date Value 05/24/2024 27 08/05/2015 23 Estimated Creatinine Clearance: 151.5 mL/min (based on SCr of 0.76 mg/dL). ALLERGIES Allergen Reactions Codeine Mental Status Change Sulfa Drugs [Sulfa * Myalgia Indication for Warfarin: Anticoagulation Episode Summary Current INR goal: 2.5-3.5 Assessment: INR result of 4.0 is supratherapeutic due to patient taking incorrect warfarin dose. Has been taking 10 mgThur,Sun; 12.5 mg other days. Plan: Current Warfarin Dosing As of 07/07/2024 Full warfarin instructions: 07/07: 7.5 mg; Otherwise 10 mg every Sun, Tue, Martha; 12.5 mg all other days Called and spoke to patient/caregiver Advised patient to decrease dose for 1 day only then resume weekly regimen as noted above Next home INR check scheduled on Patient verbalizes understanding of the plan. Patient advised to call the PAC with any medication changes, bleeding/bruising concerns, recent changes in vitamin k consumption, if any procedures are coming up, if they have been ill or in the hospital, and if they have missed any doses of warfarin. Aly Jiménez RPh Clinical Pharmacist, Pharmacy Anticoagulation Clinic Pharmacy Anticoagulation Clinic Pager: [phone]. [facility] 07-07-2024 Miscellaneous Notes [facility] Ambulatory Pharmacy Anticoagulation Clinic Anticoagulation Episode Summary Anticoagulation Care Providers Provider Role Specialty Phone number Saurav Bob MD Referring Internal Medicine [phone] Georgie Elizabeth is a 54 year old year old male patient being evaluated today for a Telemanagement visit. Patient is currently on the following anticoagulant(s) Warfarin. Labs PT INR (no units) Date Value 10/04/2023 2.0 07/11/2023 2.8 johanna per pt 01/26/2023 4.8 (self-reporting) INR Home CoaguChek (no units) Date Value 07/07/2024 4.0 06/15/2024 3.0 06/10/2024 1.5 Hemoglobin (g/dL) Date Value 05/24/2024 16.0 08/05/2015 14.6 Hematocrit (%) Date Value 05/24/2024 48.9 08/05/2015 43.7 Platelet Count (k/uL) Date Value 05/24/2024 337 08/05/2015 327 Creatinine (mg/dL) Date Value 05/24/2024 0.76 02/25/2024 0.90 08/03/2023 0.85 08/05/2015 1.09 08/05/2015 1.03 02/17/2015 0.99 Bilirubin, Total (mg/dL) Date Value 05/24/2024 1.5 08/05/2015 0.8 ALT (U/L) Date Value 05/24/2024 33 08/05/2015 34 AST (U/L) Date Value 05/24/2024 27 08/05/2015 23 Estimated Creatinine Clearance: 151.5 mL/min (based on SCr of 0.76 mg/dL). ALLERGIES Allergen Reactions Codeine Mental Status Change Sulfa Drugs [Sulfa * Myalgia Indication for Warfarin: Anticoagulation Episode Summary Current INR goal: 2.5-3.5 Assessment: INR result of 4.0 is supratherapeutic due to patient taking incorrect warfarin dose. Has been taking 10 mgThur,Sun; 12.5 mg other days. Plan: Current Warfarin Dosing As of 07/07/2024 Full warfarin instructions: 07/07: 7.5 mg; Otherwise 10 mg every Sun, Tue, Martha; 12.5 mg all other days Called and spoke to patient/caregiver Advised patient to decrease dose for 1 day only then resume weekly regimen as noted above Next home INR check scheduled on Patient verbalizes understanding of the plan. Patient advised to call the PAC with any medication changes, bleeding/bruising concerns, recent changes in vitamin k consumption, if any procedures are coming up, if they have been ill or in the hospital, and if they have missed any doses of warfarin. Aly Rachel Jiménez Clinical Pharmacist, Pharmacy Anticoagulation Clinic Pharmacy Anticoagulation Clinic Pager: [phone]. documented in this encounter [facility] 06-15-2024 Telephone encounter Note [facility] Ambulatory Pharmacy Anticoagulation Clinic Anticoagulation Episode Summary Anticoagulation Care Providers Provider Role Specialty Phone number BobSaurav banks MD Referring Internal Medicine [phone] Georgie Elizabeth is a 54 year old year old male patient being evaluated today for a Telemanagement visit. Patient is currently on the following anticoagulant(s) Warfarin. Labs PT INR (no units) Date Value 10/04/2023 2.0 07/11/2023 2.8 johanna per pt 01/26/2023 4.8 (self-reporting) INR Home CoaguChek (no units) Date Value 06/15/2024 3.0 06/10/2024 1.5 05/30/2024 2.1 Hemoglobin (g/dL) Date Value 05/24/2024 16.0 08/05/2015 14.6 Hematocrit (%) Date Value 05/24/2024 48.9 08/05/2015 43.7 Platelet Count (k/uL) Date Value 05/24/2024 337 08/05/2015 327 Creatinine (mg/dL) Date Value 05/24/2024 0.76 02/25/2024 0.90 08/03/2023 0.85 08/05/2015 1.09 08/05/2015 1.03 02/17/2015 0.99 Bilirubin, Total (mg/dL) Date Value 05/24/2024 1.5 08/05/2015 0.8 ALT (U/L) Date Value 05/24/2024 33 08/05/2015 34 AST (U/L) Date Value 05/24/2024 27 08/05/2015 23 Estimated Creatinine Clearance: 151.5 mL/min (based on SCr of 0.76 mg/dL). 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 Plan: Current Warfarin Dosing As of 06/15/2024 Full warfarin instructions: 10 mg every Wed, Wed, Wed; 12.5 mg all other days Called and spoke to patient/caregiver Advised patient to continue current weekly dose as noted above Next home INR check scheduled on 06/22/2024 Patient verbalizes understanding of the plan. Patient denies need for refills. Patient advised to call the PAC with any medication changes, bleeding/bruising concerns, recent changes in vitamin k consumption, if any procedures are coming up, if they have been ill or in the hospital, and if they have missed any doses of warfarin. Gunnar Patel RPh Clinical Pharmacist, Pharmacy Anticoagulation Clinic Pharmacy Anticoagulation Clinic Pager: [phone]. [facility] 06-15-2024 Miscellaneous Notes [facility] Ambulatory Pharmacy Anticoagulation Clinic Anticoagulation Episode Summary Anticoagulation Care Providers Provider Role Specialty Phone number Saurav Bob MD Referring Internal Medicine [phone] Georgie Elizabeth is a 54 year old year old male patient being evaluated today for a Telemanagement visit. Patient is currently on the following anticoagulant(s) Warfarin. Labs PT INR (no units) Date Value 10/04/2023 2.0 07/11/2023 2.8 johanna per pt 01/26/2023 4.8 (self-reporting) INR Home CoaguChek (no units) Date Value 06/15/2024 3.0 06/10/2024 1.5 05/30/2024 2.1 Hemoglobin (g/dL) Date Value 05/24/2024 16.0 08/05/2015 14.6 Hematocrit (%) Date Value 05/24/2024 48.9 08/05/2015 43.7 Platelet Count (k/uL) Date Value 05/24/2024 337 08/05/2015 327 Creatinine (mg/dL) Date Value 05/24/2024 0.76 02/25/2024 0.90 08/03/2023 0.85 08/05/2015 1.09 08/05/2015 1.03 02/17/2015 0.99 Bilirubin, Total (mg/dL) Date Value 05/24/2024 1.5 08/05/2015 0.8 ALT (U/L) Date Value 05/24/2024 33 08/05/2015 34 AST (U/L) Date Value 05/24/2024 27 08/05/2015 23 Estimated Creatinine Clearance: 151.5 mL/min (based on SCr of 0.76 mg/dL). 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 Plan: Current Warfarin Dosing As of 06/15/2024 Full warfarin instructions: 10 mg every Wed, Wed, Wed; 12.5 mg all other days Called and spoke to patient/caregiver Advised patient to continue current weekly dose as noted above Next home INR check scheduled on 06/22/2024 Patient verbalizes understanding of the plan. Patient denies need for refills. Patient advised to call the PAC with any medication changes, bleeding/bruising concerns, recent changes in vitamin k consumption, if any procedures are coming up, if they have been ill or in the hospital, and if they have missed any doses of warfarin. Gunnar Patel RPh Clinical Pharmacist, Pharmacy Anticoagulation Clinic Pharmacy Anticoagulation Clinic Pager: [phone]. documented in this encounter [facility] 06-13-2024 Note HNO ID: [id number] Author: MYLA FREGOSO RN Service: ? Author Type: Registered Nurse Type: Progress Notes Filed: 06/13/2024 11:46 Note Text: HOLTER MONITOR APPLICATION Patient Name: Georgie Elizabeth [facility] Number: [id number] Chest is cleansed with alcohol Skin prep applied Electrodes place on chest and stress loops secured with tape Fresh battery inserted in monitor Holter monitor secured to patient with waist or shoulder straps Patient instructed 1.) Diary documentation 2.) Usage of event button 3.) Maintenance and care of monitor 4.) Safety issues with monitor 5.) Return unit in 24 hours or 48 hours 6.) Call with problems [phone] OR [phone] Patient expresses good verbal understanding of instructions Holter# [id number] Myla Fregoso RN [facility] 06-13-2024 History of Presen t illness Narrative HOLTER MONITOR APPLICATION Patient Name: Georgie Elizabeth Clinic Number: [id number] Chest is cleansed with alcohol Skin prep applied Electrodes place on chest and stress loops secured with tape Fresh battery inserted in monitor Holter monitor secured to patient with waist or shoulder straps Patient instructed 1.) Diary documentation 2.) Usage of event button 3.) Maintenance and care of monitor 4.) Safety issues with monitor 5.) Return unit in 24 hours or 48 hours 6.) Call with problems [phone] OR [phone] Patient expresses good verbal understanding of instructions Holter# [id number] Myla Fregoso RN documented in this encounter [facility] 06-10-2024 Telephone encounter Note [facility] Ambulatory Pharmacy Anticoagulation Clinic Anticoagulation Episode Summary Anticoagulation Care Providers Provider Role Specialty Phone number Saurav Bob MD Referring Internal Medicine [phone] Georgie Elizabeth is a 54 year old year old male patient being evaluated today for a Telemanagement visit. Patient is currently on the following anticoagulant(s) Warfarin. Labs PT INR (no units) Date Value 10/04/2023 2.0 07/11/2023 2.8 johanna per pt 01/26/2023 4.8 (self-reporting) INR Home CoaguChek (no units) Date Value 06/10/2024 1.5 05/30/2024 2.1 05/11/2024 2.5 Hemoglobin (g/dL) Date Value 05/24/2024 16.0 08/05/2015 14.6 Hematocrit (%) Date Value 05/24/2024 48.9 08/05/2015 43.7 Platelet Count (k/uL) Date Value 05/24/2024 337 08/05/2015 327 Creatinine (mg/dL) Date Value 05/24/2024 0.76 02/25/2024 0.90 08/03/2023 0.85 08/05/2015 1.09 08/05/2015 1.03 02/17/2015 0.99 Bilirubin, Total (mg/dL) Date Value 05/24/2024 1.5 08/05/2015 0.8 ALT (U/L) Date Value 05/24/2024 33 08/05/2015 34 AST (U/L) Date Value 05/24/2024 27 08/05/2015 23 Estimated Creatinine Clearance: 151.5 mL/min (based on SCr of 0.76 mg/dL). ALLERGIES Allergen Reactions Codeine Mental Status Change Sulfa Drugs [Sulfa * Myalgia Indication for Warfarin: Anticoagulation Episode Summary Current INR goal: 2.5-3.5 Assessment: INR result of 1.5 is SUBtherapeutic due to: Increased vitamin k intake Pt admitted to [facility] on 06/04 through 06/07 for pneumonia and sepsis. Resumed home dose of warfarin upon discharge. Pt was started on Augmentin on 06/07 through 06/14. Diarrhea today. Pt states he was given his normal dose of warfarin while hospitalized. Plan: Current Warfarin Dosing As of 06/10/2024 Full warfarin instructions: 06/10: 15 mg; Otherwise 10 mg every Wed, Wed, Wed; 12.5 mg all other days Called and spoke to patient/caregiver Advised patient to increase dose for 1 day only then resume weekly regimen Pt advised to call PAC if diarrhea starts with antibiotic use and continues beyond 48 hours. Pt advised to call PAC immediately after any hospital discharges or with any medication changes Next home INR check scheduled on 06/15/24 Patient verbalizes understanding of the plan. Patient denies need for refills. Patient advised to call the PAC with any medication changes, bleeding/bruising concerns, recent changes in vitamin k consumption, if any procedures are coming up, if they have been ill or in the hospital, and if they have missed any doses of warfarin. Felecia Ulloa RPh Clinical Pharmacist, Pharmacy Anticoagulation Clinic Pharmacy Anticoagulation Clinic Pager: [phone]. [facility] 06-10-2024 Miscellaneous Notes [facility] Ambulatory Pharmacy Anticoagulation Clinic Anticoagulation Episode Summary Anticoagulation Care Providers Provider Role Specialty Phone number BobSaurav banks MD Referring Internal Medicine [phone] Georgie Elizabeth is a 54 year old year old male patient being evaluated today for a Telemanagement visit. Patient is currently on the following anticoagulant(s) Warfarin. Labs PT INR (no units) Date Value 10/04/2023 2.0 07/11/2023 2.8 johanna per pt 01/26/2023 4.8 (self-reporting) INR Home CoaguChek (no units) Date Value 06/10/2024 1.5 05/30/2024 2.1 05/11/2024 2.5 Hemoglobin (g/dL) Date Value 05/24/2024 16.0 08/05/2015 14.6 Hematocrit (%) Date Value 05/24/2024 48.9 08/05/2015 43.7 Platelet Count (k/uL) Date Value 05/24/2024 337 08/05/2015 327 Creatinine (mg/dL) Date Value 05/24/2024 0.76 02/25/2024 0.90 08/03/2023 0.85 08/05/2015 1.09 08/05/2015 1.03 02/17/2015 0.99 Bilirubin, Total (mg/dL) Date Value 05/24/2024 1.5 08/05/2015 0.8 ALT (U/L) Date Value 05/24/2024 33 08/05/2015 34 AST (U/L) Date Value 05/24/2024 27 08/05/2015 23 Estimated Creatinine Clearance: 151.5 mL/min (based on SCr of 0.76 mg/dL). ALLERGIES Allergen Reactions Codeine Mental Status Change Sulfa Drugs [Sulfa * Myalgia Indication for Warfarin: Anticoagulation Episode Summary Current INR goal: 2.5-3.5 Assessment: INR result of 1.5 is SUBtherapeutic due to: Increased vitamin k intake Pt admitted to [facility] on 06/04 through 06/07 for pneumonia and sepsis. Resumed home dose of warfarin upon discharge. Pt was started on Augmentin on 06/07 through 06/14. Diarrhea today. Pt states he was given his normal dose of warfarin while hospitalized. Plan: Current Warfarin Dosing As of 06/10/2024 Full warfarin instructions: 06/10: 15 mg; Otherwise 10 mg every Wed, Wed, Martha; 12.5 mg all other days Called and spoke to patient/caregiver Advised patient to increase dose for 1 day only then resume weekly regimen Pt advised to call PAC if diarrhea starts with antibiotic use and continues beyond 48 hours. Pt advised to call PAC immediately after any hospital discharges or with any medication changes Next home INR check scheduled on 06/15/24 Patient verbalizes understanding of the plan. Patient denies need for refills. Patient advised to call the PAC with any medication changes, bleeding/bruising concerns, recent changes in vitamin k consumption, if any procedures are coming up, if they have been ill or in the hospital, and if they have missed any doses of warfarin. Felecia Ulloa RPh Clinical Pharmacist, Pharmacy Anticoagulation Clinic Pharmacy Anticoagulation Clinic Pager: [phone]. documented in this encounter [facility] 06-07-2024 Note [facility] Medical Records Department [address] [place] [id number] Discharge Summary 06/07/24 1451 MR#: [id number] Acct: [id number] Name: GEORGIE ELIZABETH Rep #: [id number] : 1970 54 From: Lyndsey Garza MD PCP: GERONIMO THRASHER Status:DIS IN Location: MS2 [id number] Providers Date of Admission: 06/05/24 Date of Discharge: 06/07/24 Primary Care Physician: GERONIMO THRASHER Consultations 06/06/24 07:22 Consult: Infectious Disease Routine Consulting Provider: Rhea Rangel Reason for Consult: gram positive cocci bacteremia; has mechanical mitral valve EMERGENT Consult: No Notified: Yes Date Notified: 06/06/24 Time Notified: 07:40 Method of Notification: Text Reason For Visit: ACUTE FEBRILE ILLNESS, SIRS Diagnosis Discharge Diagnosis (1) Sepsis: Status: Acute Code(s): A41.9 - Sepsis, unspecified organism Qualifiers: Sepsis acute organ dysfunction status: without acute organ dysfunction Sepsis type: sepsis due to unspecified organism Qualified Code(s): A41.9 - Sepsis, unspecified organism (2) Pneumonia: Status: Acute Code(s): J18.9 - Pneumonia, unspecified organism Qualifiers: Laterality: right Lung location: lower lobe of lung Pneumonia type: due to unspecified organism Qualified Code(s): J18.9 - Pneumonia, unspecified organism Plan #Sepsis due to pneumonia * Admitted with complaint of fever. He had fever 102 Fahrenheit leukocytosis of 12.9 and also lactic acidosis of 2.2. * On IV vancomycin and Zosyn. Urine for strep Legionella negative. * blood cultures negative. It was initially read as positive for gram positive cocci, but was amended to be negative. * ID on board.respiratory panel negative. * Respiratory panel also negative. * Lactic acid trended down with hydration. * ID narrowe down antibiotics to IV ceftriaxone. Per ID to discharge soon with 3 days of PO augmentin 875mg bid. * #Chest pain * Patient complained of chest pain on admission. * He does have a history of mitral valve mechanical replacements due to mitral stenosis in the setting of HOCM. * Troponins were not elevated. 2D echo was ordered but I will consulted 2D echo as patient just had a 2D echo done 2 weeks ago recommend clinic. He has a yearly echo did for surveillance of his history of HOCM. * 2D echo done at [facility] 2 weeks ago showed EF of 55% with no acute regional wall motion abnormalities. Patient showed me this from the patient portal. Official records requested from [facility] and pending #History of HOCM * S/p ventricular septal myomectomy. * Is complicated by left bundle branch block. On metoprolol. States his dose of metoprolol was recently reduced due to what seems like bradycardia. * #Benign essential hypertension: On metoprolol. Resume metoprolol. #History of mitral valve replacement * S/p mitral valve replacement mechanical valve. This was done at [facility]. * On Coumadin. Monitor INR. Target INR between 2.5-3.5. * #DVT prophylaxis: On Coumadin. Monitor INR. INR was 2.8 yesterday and is pending today. Medications at Discharge Home Medications rosuvastatin 20 mg tablet 20 mg PO DAILY 02/18/20 melatonin 10 mg tablet 10 mg PO QHS 01/01/22 hydrocodone-acetaminophen 5-325mg 5mg-325mg 1 tab PO Q6H PRN PRN Pain 3 days #10 TABLETS 10/04/23 aspirin 81 mg capsule 81 mg PO DAILY 06/04/24 coenzyme Q10 100 mg capsule (Co Q-10) 100 mg PO DAILY 06/04/24 dicyclomine 10 mg capsule 10 mg PO TID 06/04/24 metoprolol succinate 50 mg tablet,extended release 24 hr 50 mg PO DAILY 06/04/24 pantoprazole 40 mg tablet,delayed release (Protonix) 40 mg PO DAILY 06/04/24 warfarin 10 mg tablet (Jantoven) 10 mg PO SUTH 06/04/24 warfarin 5 mg tablet (Jantoven) 12.5 mg PO MOTUWEFRSA 06/04/24 lorazepam 0.5 mg tablet (Ativan) 0.5 mg PO BID PRN anxiety 06/05/24 amoxicillin 875 mg-potassium clavulanate 125 mg tablet 1 tab PO BID #6 tabs 06/07/24 Hospital Course Operations None Procedures None Summary of Care Provided Minutes Spent on Discharge: 45 Hospital Course: Patient is a 54-year-old male with an extensive past medical history as outlined including history of HOCM s/p ventricular septal myomectomy and history of mechanical mitral valve replacement, on Coumadin was admitted to the ED on 06/04/2024 with a complaint of fever, chest pain and shortness of breath. Symptoms started day before admission. His fever and chills are gradually worsening he also had an associated nonproductive cough with associated pleuritic chest pain. He was admitted to [facility] with palpitations. His symptoms did not improve so he came into the ED. CT of the chest showed groundglass pulmonary nodule opacities involving the right lung with concern for infectious versus inflammatory process. WBC was elevated at 12.9 lactic acid was 2.2. He was admitted and managed for sepsis d (more content not included)... [facility] 06-05-2024 Evaluation note Diagnosis Onset Date Resolution Acute febrile illness resolved Jun 12:19am Chest pain resolved June 05, 2024 12:19am Lactic acidosis resolved June 05, 2024 12:19am Pneumonia resolved June 05, 2024 12:19am Sepsis resolved June 05, 2024 12:19am Chronic anticoagulation inactive F 2024 12:19am H/O mitral valve replacement with mechanical valve inactive June 05 025 12:19am Hypertrophic obstructive cardiomyopathy inactive June 05 12:19am Obesity (BMI 30.0-34.9) inactive F [facility]2024 12:19am [facility] Work Phone: [phone]) 526-910701-29-2025 Telephone encounter Note* Telephone Encounter - Romanangie Harini, [facility] - 05/31/2024 8:56 AM EST [facility] Ambulatory Pharmacy Anticoagulation Clinic Anticoagulation Episode Summary Anticoagulation Care Providers Provider Role Specialty Phone number Saurav Bob MD Referring Internal Medicine [phone] Georgie Elizabeth is a 54 year old year old male patient being evaluated today for a Lab INR. Patientis currently on the following anticoagulant(s) Warfarin. Labs PT INR (no units) Date Value 10/04/2023 2.0 07/11/2023 2.8 johanna per pt 01/26/2023 4.8 (self-reporting) INR Home CoaguChek (no units) Date Value 05/30/2024 2.1 05/11/2024 2.5 04/12/2024 2.2 Hemoglobin (g/dL) Date Value 05/24/2024 16.0 08/05/2015 14.6 Hematocrit (%) Date Value 05/24/2024 48.9 08/05/2015 43.7 Platelet Count (k/uL) Date Value 05/24/2024 337 08/05/2015 327 Creatinine (mg/dL) Date Value 05/24/2024 0.76 02/25/2024 0.90 08/03/2023 0.85 08/05/2015 1.09 08/05/2015 1.03 02/17/2015 0.99 Bilirubin, Total (mg/dL) Date Value 05/24/2024 1.5 08/05/2015 0.8 ALT (U/L) Date Value 05/24/2024 33 08/05/2015 34 AST (U/L) Date Value 05/24/2024 27 08/05/2015 23 Estimated Creatinine Clearance: 151.5 mL/min (based on SCr of 0.76 mg/dL). ALLERGIES Allergen Reactions Codeine Mental Status Change Sulfa Drugs [Sulfa * Myalgia Indication for Warfarin: Mechanical heart valve present senior care (current) use of anticoagulants History of mitral valve replacement with mechanical valve Anticoagulation Episode Summary Current INR goal: 2.5-3.5 Assessment: INR result of 2.1 is SUBtherapeutic due to: Increased vitamin k intake and Patient taking an incorrect warfarin dose He took 10mg on 05/27 instead of 12.5mg He also has had more vit K in [place] but will stop those for now. Plan: Current Warfarin Dosing As of 05/31/2024 Full warfarin instructions: 10 mg every Wed, Wed, Wed; 12.5 mg all other days Called and spoke to patient/caregiver Advised patient to continue current weekly dose as noted above Next lab INR check scheduled on 06/19/2024 Patient verbalizes understanding of the plan. Patient denies need for refills. Patient advised to call the PAC with any medication changes, bleeding/bruising concerns, recent changes in vitamin k consumption, if any procedures are coming up, if they have been ill or in the hospital, and if they have missed any doses of warfarin. Harini Cesar RPh Clinical Pharmacist, Pharmacy Anticoagulation Clinic Pharmacy Anticoagulation Clinic Pager: [phone]. [facility]01-29-2025 Miscellaneous Notes* Telephone Encounter - Harini Cesar RPh - 05/31/2024 8:56 AM EST [facility] Ambulatory Pharmacy Anticoagulation Clinic Anticoagulation Episode Summary Anticoagulation Care Providers Provider Role Specialty Phone number Saurav Bob MD Referring Internal Medicine [phone] Georgie Elizabeth is a 54 year old year old male patient being evaluated today for a Lab INR. Patientis currently on the following anticoagulant(s) Warfarin. Labs PT INR (no units) Date Value 10/04/2023 2.0 07/11/2023 2.8 johanna per pt 01/26/2023 4.8 (self-reporting) INR Home CoaguChek (no units) Date Value 05/30/2024 2.1 05/11/2024 2.5 04/12/2024 2.2 Hemoglobin (g/dL) Date Value 05/24/2024 16.0 08/05/2015 14.6 Hematocrit (%) Date Value 05/24/2024 48.9 08/05/2015 43.7 Platelet Count (k/uL) Date Value 05/24/2024 337 08/05/2015 327 Creatinine (mg/dL) Date Value 05/24/2024 0.76 02/25/2024 0.90 08/03/2023 0.85 08/05/2015 1.09 08/05/2015 1.03 02/17/2015 0.99 Bilirubin, Total (mg/dL) Date Value 05/24/2024 1.5 08/05/2015 0.8 ALT (U/L) Date Value 05/24/2024 33 08/05/2015 34 AST (U/L) Date Value 05/24/2024 27 08/05/2015 23 Estimated Creatinine Clearance: 151.5 mL/min (based on SCr of 0.76 mg/dL). ALLERGIES Allergen Reactions Codeine Mental Status Change Sulfa Drugs [Sulfa * Myalgia Indication for Warfarin: Mechanical heart valve present 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 History of mitral valve replacement with mechanical valve Anticoagulation Episode Summary Current INR goal: 2.5-3.5 Assessment: INR result of 2.1 is SUBtherapeutic due to: Increased vitamin k intake and Patient taking an incorrect warfarin dose He took 10mg on 05/27 instead of 12.5mg He also has had more vit K in [place] but will stop those for now. Plan: Current Warfarin Dosing As of 05/31/2024 Full warfarin instructions: 10 mg every Wed, Wed, Wed; 12.5 mg all other days Called and spoke to patient/caregiver Advised patient to continue current weekly dose as noted above Next lab INR check scheduled on 06/19/2024 Patient verbalizes understanding of the plan. Patient denies need for refills. Patient advised to call the PAC with any medication changes, bleeding/bruising concerns, recent changes in vitamin k consumption, if any procedures are coming up, if they have been ill or in the hospital, and if they have missed any doses of warfarin. Harini Cesar RPh Clinical Pharmacist, Pharmacy Anticoagulation Clinic Pharmacy Anticoagulation Clinic Pager: [phone]. documented in this encounterPromedica [facility]01-22-[facility]25 History of Present illness Narrative* Cele Christianson RT(R) - 05/24/2024 11:45 AM EST Radiology Service Progress Note PATIENT NAME: Georgie Elizabeth DATE OF SERVICE: May 24, 2024 TIME: 11:57 AM PATIENT IDENTITY VERIFICATION COMPLETED USING TWO (2) IDENTIFIERS: Name and Date of confirmedby patient verbally. FALL SCREENING: Has the patient had 2 falls in the last year or 1 fall with injury or currently using an Ambulatory Assistive Device (Walker, Cane, Wheelchair, Crutches, etc.)? No PATIENT GENDER DATA: Assigned male at PATIENT RELEVANT IMPLANT DATA REVIEWED: Not Applicable PATIENT PRESENTS WITH AN IMPLANTABLE OR ATTACHED [employer] OPERATOR: No RADIOLOGY DEPARTMENT: Ultrasound PERIPHERAL IV DATA: Not applicable SIGNED BY: RT Oumou(R) May 24, 2024 11:57 AM documented in this encounterPromedica Defiance [facility]01-22-2025 NoteHNO ID: [id number] Author: CELE CHRISTIANSON RT(R) Service: Radiology Author Type: Technologist Type: Progress Notes Filed: 05/24/2024 11:57 Note Text: Radiology Service Progress Note PATIENT NAME: Georgie Elizabeth DATE OF SERVICE: May 24, 2024 TIME: 11:57 AM PATIENT IDENTITY VERIFICATION COMPLETED USING TWO (2) IDENTIFIERS: Name and Date of confirmed by patient verbally. FALL SCREENING: Has the patient had 2 falls in the last year or 1 fall with injury or currently using an Ambulatory Assistive Device (Walker, Cane, Wheelchair, Crutches, etc.)? No PATIENT GENDER DATA: Assigned male at PATIENT RELEVANT IMPLANT DATA REVIEWED: Not Applicable PATIENT PRESENTS WITH AN IMPLANTABLE OR ATTACHED [employer] OPERATOR: No RADIOLOGY DEPARTMENT: Ultrasound PERIPHERAL IV DATA: Not applicable SIGNED BY: RT Oumou([place]) May 24, 2024 11:57 [facility] of Present illness Narrative* Jose Jaramillo RT(R) - 05/24/2024 11:00 AM EST Radiology Service Progress Note PATIENT NAME: Georgie Elizabeth DATE OF SERVICE: May 24, 2024 TIME: 11:21 AM PATIENT IDENTITY VERIFICATION COMPLETED USING TWO (2) IDENTIFIERS: Name and Date of confirmedby patient verbally. FALL SCREENING: Has the patient had 2 falls in the last year or 1 fall with injury or currently using an Ambulatory Assistive Device (Walker, Cane, Wheelchair, Crutches, etc.)? No PATIENT GENDER DATA: Assigned male at PATIENT RELEVANT IMPLANT DATA REVIEWED: Not Applicable PATIENT PRESENTS WITH AN IMPLANTABLE OR ATTACHED [employer] OPERATOR: No RADIOLOGY DEPARTMENT: General X-ray: Exam(s) Completed: GI/ Procedure(s): Esophogram with barium contrast PERIPHERAL IV DATA: Not applicable SIGNED BY: RT Alvarado (R) May 24, 2024 11:21 AM documented in this encounterPromedica Defiance [facility]01-22-2025 NoteHNO ID: [id number] Author: JOSE JARAMILLO RT (R) Service: Radiology Author Type: Technologist Type: Progress Notes Filed: 05/24/2024 11:21 Note Text: Radiology Service Progress Note PATIENT NAME: Georgie Elizabeth DATE OF SERVICE: May 24, 2024 TIME: 11:21 AM PATIENT IDENTITY VERIFICATION COMPLETED USING TWO (2) IDENTIFIERS: Name and Date of confirmed by patient verbally. FALL SCREENING: Has the patient had 2 falls in the last year or 1 fall with injury or currently using an Ambulatory Assistive Device (Walker, Cane, Wheelchair, Crutches, etc.)? No PATIENT GENDER DATA: Assigned male at PATIENT RELEVANT IMPLANT DATA REVIEWED: Not Applicable PATIENT PRESENTS WITH AN IMPLANTABLE OR ATTACHED [employer] OPERATOR: No RADIOLOGY DEPARTMENT: General X-ray: Exam(s) Completed: GI/ Procedure(s): Esophogram with barium contrast PERIPHERAL IV DATA: Not applicable SIGNED BY: CHARLOTTE Alvarado) May 24, 2024 11:21 [facility]01-17-2025 NoteHNO ID: [id number] Author: JANAE CORTES MD Service: ? Author Type: Physician Type: Progress Notes Filed: 05/19/2024 17:25 Note Text: Heart and Vascular [place] [facility] Bateman Department of Cardiovascular Medicine SECTION OF CARDIOVASCULAR IMAGING OUTPATIENT VISIT DATE 05/19/2024 OUTPATIENT VISIT TYPE ESTABLISHED PRIMARY CARE PHYSICIAN: Saurav Bob MD [address] [place] [address] REFERRING PHYSICIAN: No referring provider defined for this encounter. CHIEF COMPLAINT: Follow up HISTORY OF PRESENT ILLNESS: Mr. Elizabeth is a 54 year old gentleman who presents today for follow-up visit. To summarize his history from prior notes: He underwent MV repair in [place] on 01/2013, but was told of LV obstruction prior as well. However, still had residual obstruction post-operatively. Managed with beta blockers, but still had considerable exertional dyspnea. Referred here to Dr. Llanes. Pre-op echo: - The left ventricle is normal in size. There is severe asymmetric left ventricular hypertrophy. Left ventricular systolic function is hyperdynamic. EF = 71 ? 5% (2D biplane) LV EDV Indexed is at the low normal range. - The right ventricle is normal in size. Right ventricular systolic function is normal. - There is moderate (2+ - 3+) mitral valve regurgitation. MV repair in 01/2014. MR may be underestimated as it is difficult to evaluate severity and mechanism of MR. Suggest SRINATH to further evaluate if clinically indicated. - Severe RASHIDA at rest: HR=53 BPM, Peak gradient= 102 mmHg. With valsalva: HR=52 BPM, peak gradient= 125 mmHg. Pre-op cath with no significant angiographic disease. On 11/13/2013, he underwent Redo median sternotomy, open heart surgery, extensive dissection of mediastinal adhesions, repair of the mitral valve utilizing #31 De Leon flexible annuloplasty band, takedown of previous chordal transposition, and septal myectomy. Surgical path: Microscopic examination shows myocyte hypertrophy with myocyte nuclei ranging in diameter from 30-40 micrometers. There is no evidence of myocyte disarray. The Movat stain shows no evidence of dysplastic intramural coronary arteries. However, it shows replacement fibrosis and mild interstitial fibrosis. The endocardium shows one focal area of fibrosis with minimal elastosis. Post-op echo: - The left ventricle is normal in size. There is moderate concentric left ventricular hypertrophy. Left ventricular systolic function is normal. EF = 61 ? 5% (2D biplane) - The right ventricle is normal in size. Right ventricular systolic function is normal. - Resting mild RASHIDA with HR 79 bpm. 1+ MR, LVOT gradient 33 mmHg. Same gradient with valsalva although RASHIDA appears to increase. With Amyl nitrite gradient increases to 89 mmHg (HR 84) with MR increasing to 2-3+ and moderate/severe RASHIDA. He therefore underwent re-operation on 11/20/13 with a 27/29 mm On-X mechanical mitral valve. Admission in August of 2015 for palpitations and lightheadedness. Work-up unremarkable. Subsequent CardioNet unremarkable as well. Symptoms of palpitations did not correlate with any arrhythmias, only rare PAC's, PVC's noted. He did note some symptoms of exertional dyspnea in 2018 perfusion stress test was negative for ischemia. For the most part he has felt well since his last visit. However has noted on occasion a pressure sensation in his chest which may last a few minutes. No set relation to activity. 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 [phone] Depression with anxiety obsessive compulsive disorder Gout 12/22/2022 HTN (hypertension) Hyperbilirubinemia 12/22/2022 Hyperlipemia Hypertension 11/16/2013 -cont home meds Hypertrophic obstructive cardiomyopathy (HCC) 2013 s/p myectomy Mitral stenosis 2013 s/p re-do MVR with mechanical valve 11/13/13 Nephrolithiasis 2017 Obstructive sleep apnea 2012 Urethral stricture PAST SURGICAL HISTORY Procedure Laterality Date ADENOIDECTOMY HX 05/03/1986 COLONOSCOPY 05/03/2011 COLONOSCOPY SCREENING 01/08/2022 EGD DIAGNOSTIC 11/10/2022 PAST SURGICAL HISTORY OF 01/23/2013 mitral valve repair, #32 Valerie ring, ligation of left atrial appendage PAST SURGICAL HISTORY OF 11/13/2013 Myectomy and MVr with de leon band and valvuloplasty. PAST SURGICAL HISTORY OF 11/20/2013 redo sternotomy MVR with mechanical ON X valve (27/29 mm). PAST SURGICAL HISTORY OF 01/29/2015 BMG Urethroplasty TONSILLECTOMY HX 05/03/1986 SOCIAL HISTORY Social History Tobacco Use Smoking status: Never Smokeless tobacco: Never Vaping Use Vaping status: Never Used (more content not included)...[facility]01-17-2025 History of Present illness Narrative* Janae Cortes MD - 05/19/2024 4:24 PM EST Images from the original note were not included. [facility] V[facility] [place] [facility] Department of Cardiovascular Medicine SECTION OF CARDIOVASCULAR IMAGING OUTPATIENT VISIT DATE 05/19/2024 OUTPATIENT VISIT TYPE ESTABLISHED PRIMARY CARE PHYSICIAN: Saurav Bob MD [address] [place] [address] REFERRING PHYSICIAN: No referring provider defined for this encounter. CHIEF COMPLAINT: Follow up HISTORY OF PRESENT ILLNESS: Mr. Elizabeth is a 54 year old gentleman who presents today for follow-up visit. To summarize his history from prior notes: He underwent MV repair in [place] on 01/2013, but was told of LV obstruction prior as well. However, still had residual obstruction post-operatively. Managed with beta blockers, but still had considerable exertional dyspnea. Referred here to Dr. Llanes. Pre-op echo: - The left ventricle is normal in size. There is severe asymmetric left ventricular hypertrophy. Left ventricular systolic function is hyperdynamic. EF = 71 5% (2D biplane) LV EDV Indexed is at the low normal range. - The right ventricle is normal in size. Right ventricular systolic function is normal. - There is moderate (2+ - 3+) mitral valve regurgitation. MV repair in 01/2014. MR may be underestimated as it is difficult to evaluate severity and mechanism of MR. Suggest SRINATH to further evaluate if clinically indicated. - Severe RASHIDA at rest: HR=53 BPM, Peak gradient= 102 mmHg. With valsalva: HR=52 BPM, peak gradient= 125 mmHg. Pre-op cath with no significant angiographic disease. On 11/13/2013, he underwent Redo median sternotomy, open heart surgery, extensive dissection of mediastinal adhesions, repair of the mitral valve utilizing #31 De Leon flexible annuloplasty band, takedown of previous chordal transposition, and septal myectomy. Surgical path: Microscopic examination shows myocyte hypertrophy with myocyte nuclei ranging in diameter from 30-40 micrometers. There is no evidence of myocyte disarray. The Movat stain shows no evidence of dysplastic intramural coronary arteries. However, it shows replacement fibrosis and mild interstitial fibrosis. The endocardium shows one focal area of fibrosis with minimal elastosis. Post-op echo: - The left ventricle is normal in size. There is moderate concentric left ventricular hypertrophy. Left ventricular systolic function is normal. EF = 61 5% (2D biplane) - The right ventricle is normal in size. Right ventricular systolic function is normal. - Resting mild RASHIDA with HR 79 bpm. 1+ MR, LVOT gradient 33 mmHg. Same gradient with valsalva although RASHIDA appears to increase. With Amyl nitrite gradient increases to 89 mmHg (HR 84) with MR increasing to 2-3+ and moderate/severe RASHIDA. He therefore underwent re-operation on 11/20/13 with a 27/29 mm On-X mechanical mitral valve. Admission in August of 2015 for palpitations and lightheadedness. Work-up unremarkable. Subsequent CardioNet unremarkable as well. Symptoms of palpitations did not correlate with any arrhythmias, only rare PAC's, PVC's noted. He did note some symptoms of exertional dyspnea in 2019 perfusion stress test was negative for ischemia. For the most part he has felt well since his last visit. However has noted on occasion a pressure sensation in his chest which may last a few minutes. No set relation to activity. 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 [phone] Depression with anxiety obsessive compulsive disorder Gout 12/22/2022 HTN (hypertension) Hyperbilirubinemia 12/22/2022 Hyperlipemia Hypertension 11/16/2013 -cont home meds Hypertrophic obstructive cardiomyopathy (HCC) 2012 s/p myectomy Mitral stenosis 2012 s/p re-do MVR with mechanical valve 11/13/13 Nephrolithiasis 2017 Obstructive sleep apnea 2012 Urethral stricture PAST SURGICAL HISTORY Procedure Laterality Date ADENOIDECTOMY HX 05/03/1986 COLONOSCOPY 05/03/2011 COLONOSCOPY SCREENING 01/08/2022 EGD DIAGNOSTIC 11/10/2022 PAST SURGICAL HISTORY OF 01/23/2013 mitral valve repair, #32 Valerie ring, ligation of left atrial appendage PAST SURGICAL HISTORY OF 11/13/2013 Myectomy and MVr with de leon band and valvuloplasty. PAST SURGICAL HISTORY OF 11/20/2013 redo sternotomy MVR with mechanical ON X valve (27/29 mm). PAST SURGICAL HISTORY OF 01/29/2015 BMG Urethroplasty TONSILLECTOMY HX 05/03/1986 SOCIAL HISTORY Social History Tobacco Use Smoking status: Never Smokeless tobacco: Never Vaping Use Vaping status: Never Used Substance Use Topics Alcohol use: No Comment: rarely Drug use: Never FAMILY HISTORY Problem Relation Age of Onset other (Diverticulosis) Mother Heart Father [place], sudden 50's Colon Cancer Sister Heart Paternal Grandmother ALLERGIES: ALLERGIES Allergen Reactions Codeine Mental Status Change Sulfa Drugs [Sulfa * Myalgia MEDICATIONS: dicyclomine (BENTYL) 10 mg capsule Take 1 capsule by mouth three times a day as needed (for abdominal pain). pantoprazole DR (PROTONIX) 40 mg tablet Take 1 tablet by mouth once daily. On empty stomach at least 30 minutes before eating. coenzyme Q10 (CO Q-10) 100 mg cap capsule Take 1 capsule by mouth once daily. warfarin (COUMADIN) 10 mg tablet Take 15 mg every Mon, Wed; 12.5 mg all other days or as directed by anticoagulation clinic. (Takes with 5 mg tablets) warfarin (COUMADIN) 5 mg tablet Take 15 mg every Mon, Wed; 12.5 mg all other days or as directed byanticoagulation clinic. (Takes with 10 mg tablets) rosuvastatin (CRESTOR) 20 mg tablet Take 1 tablet by mouth once daily. CPAP/BIPAP/OTHER Type .CPAPSettings into a note to see current settings/supplies/DME information. enoxaparin (LOVENOX) 120 mg/0.8 mL injection Inject 120 mg subcutaneously. CPAP/BIPAP/OTHER Continue ASV with current settings of EPAP 5 cm H2O with PS 4- 12 cmH2O. Lifetime supplies for ASV, including patient preferred mask, head gear, heated tubing, humidity, filters, chin strap. Dx: Obstructive Sleep Apnea G47.33 DME: [facility] aspirin 81 mg chewable tablet Take 1 tablet by mouth once daily. Melatonin 5 mg tab Take by mouth as needed. ACETAMINOPHEN (TYLENOL EXTRA STRENGTH ORAL) Take by mouth as needed. metoprolol succinate ER (TOPROL XL) 50 mg 24 hr tablet Take 1 tablet by mouth once daily. PHYSICAL EXAMINATION: BP 114/76 Pulse 64 Resp 12 Ht 194.3 cm (6' 4.5) Wt 108.9 kg (240 lb) SpO2 99% BMI 28.83 kg/m General: Well appearing, in no acute distress. Skin: No clubbing, no cyanosis. Eyes: Extra ocular movements grossly intact Oropharynx: Dentition not poor. Neck: No jugular venous distention. Lungs: Clear to auscultation bilaterally. Heart: S1, S2 RRR. Valve sounds. No significant MR murmur suggested. Abdomen: Soft, nontender. Extremities: No peripheral edema. Neuro: Oriented to person, place and time, alert, cooperative, gait coordinated. CARDIOVASCULAR MEDICINE TESTING: Echocardiogram: Last ECHO Result Conclusion ECHO Collected: 05/19/2024 10:59 AM (Final result) Impression: CONCLUSIONS: - Exam indication: H/o MVR & HOCM/myectomy - The left ventricle is normal in size. There is septal left ventricular hypertrophy. Left ventricular systolic function is normal. EF = 55 5% (2D biplane) Left ventricular diastolic function was not evaluated due to mitral valve surgery. - The right ventricle is normal in size. Right ventricular systolic function is normal. - The left atrial cavity is dilated. - The right atrial cavity is dilated. - The visualized aorta is borderline dilated with a maximal dimension of 3.9 cm. - Post mitral valve replacement. On-X prosthetic mitral valve (size #27). There is trace (trace - 1+) mitral valve regurgitation. The peak gradient is 13 mmHg and the mean gradient is 6 mmHg. Today's gradients obtained at 61 bpm. Prior peak/mean gradients of 11/6 mmHg. MR appears mild similar to prior, though assessment confounded by shielding artifact from prosthetic valve. - Exam was compared with the prior echocardiographic exam performed on 05/04/2023. Similar findings. * * * Final * * * Study reviewed. Last EKG Result Conclusion ECG COMPLETE Collected: 05/19/2024 12:22 PM (Preliminary result) Impression: SINUS RHYTHM WITH SINUS ARRHYTHMIA WITH 1ST DEGREE AV BLOCK COMPLETE LEFT BUNDLE BRANCH BLOCK ABNORMAL ECG IMPRESSION: Mr. Elizabeth is a 54 year old ith LVOT obstruction that underwent attempted MV repair, but developed worsening LVOT obstruction Therefore underwent MV replacement. Pre-op cath with no angiographic disease. No myocyte disarray or intramural coronary dysplasia on surgical path of myectomy. Stable valve gradients. Longer first degree block on ECG. Occasional atypical chest symptoms. PLAN AND RECOMMENDATIONS: Will proceed with a perfusion stress test to assess for ischemia. Will decrease metoprolol from 75 mg to 50 mg in light of prolonged VT interval. Will proceed with a Holter monitor to ensure no occult higher degrees of AV block. Have asked him to monitor for any symptoms of lightheadedness or dizziness and let us know should these be present. Follow-up on the above testing. CONTACT INFORMATION: Mai Huggins Department of Cardiovascular Medicine Heart and Vascular [place] [facility] Desk [id number] [place] [address] Office - [phone] extension [phone] Office Appointments: [phone] extension [phone] documented in this encounterPromedica Defiance [facility]01-09-2025 Telephone encounter Note * Telephone Encounter - Gunnar Patel, [facility] - 05/11/2024 1:45 PM EST [facility] Ambulatory Pharmacy Anticoagulation Clinic Anticoagulation Episode Summary Anticoagulation Care Providers Provider Role Specialty Phone number Saurav Bob MD Referring Internal Medicine [phone] Georgie Elizabeth is a 54 year old year old male patient being evaluated today for a Telemanagement visit. Patient is currently on the following anticoagulant(s) Warfarin. Labs PT INR (no units) Date Value 10/04/2023 2.0 07/11/2023 2.8 johanna per pt 01/26/2023 4.8 (self-reporting) INR Home CoaguChek (no units) Date Value 05/11/2024 2.5 04/12/2024 2.2 03/30/2024 1.7 Hemoglobin (g/dL) Date Value 02/25/2024 15.3 08/05/2015 14.6 Hematocrit (%) Date Value 02/25/2024 46.6 08/05/2015 43.7 Platelet Count (k/uL) Date Value 02/25/2024 336 08/05/2015 327 Creatinine (mg/dL) Date Value 02/25/2024 0.90 08/03/2023 0.85 04/22/2023 0.87 08/05/2015 1.09 08/05/2015 1.03 02/17/2015 0.99 Bilirubin, Total (mg/dL) Date Value 02/25/2024 1.7 08/05/2015 0.8 ALT (U/L) Date Value 02/25/2024 23 08/05/2015 34 AST (U/L) Date Value 02/25/2024 20 08/05/2015 23 Estimated Creatinine Clearance: 125.5 mL/min (based on SCr of 0.9 mg/dL). ALLERGIES Allergen Reactions Codeine Mental Status Change Sulfa Drugs [Sulfa * Myalgia Indication for Warfarin: Mechanical heart valve present 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 History of mitral valve replacement with mechanical valve Anticoagulation Episode Summary Current INR goal: 2.5-3.5 Assessment: INR result of 2.5 is therapeutic Plan: Current Warfarin Dosing As of 05/11/2024 Full warfarin instructions: 10 mg every Wed, Wed, Wed; 12.5 mg all other days Sent [employer] message Advised patient to continue current weekly dose as noted above Next home INR check scheduled on 05/25/2024 Patient advised to call the PAC with any medication changes, bleeding/bruising concerns, recent changes in vitamin k consumption, if any procedures are coming up, if they have been ill or in the hospital, and if they have missed any doses of warfarin. Gunnar Patel RPh Clinical Pharmacist, Pharmacy Anticoagulation Clinic Pharmacy Anticoagulation Clinic Pager: [phone]. [facility]01-09-2025 Miscellaneous Notes* Telephone Encounter - Jorge Gunnar Perry, [facility] - 05/11/2024 1:45 PM EST [facility] Ambulatory Pharmacy Anticoagulation Clinic Anticoagulation Episode Summary Anticoagulation Care Providers Provider Role Specialty Phone number Saurav Bob MD Referring Internal Medicine [phone] Georgie Elizabeth is a 54 year old year old male patient being evaluated today for a Telemanagement visit. Patient is currently on the following anticoagulant(s) Warfarin. Labs PT INR (no units) Date Value 10/04/2023 2.0 07/11/2023 2.8 johanna per pt 01/26/2023 4.8 (self-reporting) INR Home CoaguChek (no units) Date Value 05/11/2024 2.5 04/12/2024 2.2 03/30/2024 1.7 Hemoglobin (g/dL) Date Value 02/25/2024 15.3 08/05/2015 14.6 Hematocrit (%) Date Value 02/25/2024 46.6 08/05/2015 43.7 Platelet Count (k/uL) Date Value 02/25/2024 336 08/05/2015 327 Creatinine (mg/dL) Date Value 02/25/2024 0.90 08/03/2023 0.85 04/22/2023 0.87 08/05/2015 1.09 08/05/2015 1.03 02/17/2015 0.99 Bilirubin, Total (mg/dL) Date Value 02/25/2024 1.7 08/05/2015 0.8 ALT (U/L) Date Value 02/25/2024 23 08/05/2015 34 AST (U/L) Date Value 02/25/2024 20 08/05/2015 23 Estimated Creatinine Clearance: 125.5 mL/min (based on SCr of 0.9 mg/dL). ALLERGIES Allergen Reactions Codeine Mental Status Change Sulfa Drugs [Sulfa * Myalgia Indication for Warfarin: Mechanical heart valve present senior care (current) use of anticoagulants History of mitral valve replacement with mechanical valve Anticoagulation Episode Summary Current INR goal: 2.5-3.5 Assessment: INR result of 2.5 is therapeutic Plan: Current Warfarin Dosing As of 05/11/2024 Full warfarin instructions: 10 mg every Sun, Wed, Martha; 12.5 mg all other days Sent [employer] message Advised patient to continue current weekly dose as noted above Next home INR check scheduled on 05/25/2024 Patient advised to call the PAC with any medication changes, bleeding/bruising concerns, recent changes in vitamin k consumption, if any procedures are coming up, if they have been ill or in the hospital, and if they have missed any doses of warfarin. Gunnar Patel [facility] Clinical Pharmacist, Pharmacy Anticoagulation Clinic Pharmacy Anticoagulation Clinic Pager: [phone]. documented in this encounterPromedica Defiance [facility] Hospital12-18-2024 NoteHNO ID: [id number] Author: RAMÓN SILVA MD Service: ? Author Type: Physician Type: Progress Notes Filed: 04/19/2024 14:22 Note Text: HPI: 53 year old male with a history of mechanical mitral valve on Coumadin and urethral stricture s/p ventral onlay BMG urethroplasty in 2014 He was last seen on 10/2023. He had a scope last on 02/01/23 that showed mild annular stenosis at the distal and proximal aspects of the repair that did accept the scope. He last summer also had an episode of bacterial prostatitis and was placed on cipro for 4 weeks. No urinary tract infections in our system since august and he states he has not had any . No issues with his stream or concerns of any kind for us today. PVR is 174. 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 [phone] Depression with anxiety obsessive compulsive disorder Gout 12/22/2022 HTN (hypertension) Hyperbilirubinemia 12/22/2022 Hyperlipemia Hypertension 11/16/2013 -cont home meds Hypertrophic obstructive cardiomyopathy (HCC) 2012 s/p myectomy Mitral stenosis 2012 s/p re-do MVR with mechanical valve 11/13/13 Nephrolithiasis 2017 Obstructive sleep apnea 2011 Urethral stricture PAST SURGICAL HISTORY Procedure Laterality Date ADENOIDECTOMY HX 05/03/1986 COLONOSCOPY 05/03/2011 COLONOSCOPY SCREENING 01/08/2022 EGD DIAGNOSTIC 11/10/2022 PAST SURGICAL HISTORY OF 01/23/2013 mitral valve repair, #32 Valerie ring, ligation of left atrial appendage PAST SURGICAL HISTORY OF 11/13/2013 Myectomy and MVr with de leon band and valvuloplasty. PAST SURGICAL HISTORY OF 11/20/2013 redo sternotomy MVR with mechanical ON X valve (27/29 mm). PAST SURGICAL HISTORY OF 01/29/2015 BMG Urethroplasty TONSILLECTOMY HX 05/03/1986 Social History Tobacco Use Smoking status: Never Smokeless tobacco: Never Vaping Use Vaping status: Never Used Substance Use Topics Alcohol use: No Comment: rarely Drug use: Never Current Outpatient Medications Medication Sig Dispense Refill dicyclomine (BENTYL) 10 mg capsule Take 1 capsule by mouth three times a day as needed (for abdominal pain). [address] (PROTONIX) 40 mg tablet Take 1 tablet by mouth once daily. On empty stomach at least 30 minutes before eating. 90 tablet 3 coenzyme Q10 (CO Q-10) 100 mg cap capsule Take 1 capsule by mouth once daily. warfarin (COUMADIN) 10 mg tablet Take 15 mg every Mon, Wed; 12.5 mg all other days or as directed by anticoagulation clinic. (Takes with 5 mg tablets) 90 tablet 2 warfarin (COUMADIN) 5 mg tablet Take 15 mg every Mon, Wed; 12.5 mg all other days or as directed by anticoagulation clinic. (Takes with 10 mg tablets) 90 tablet 1 rosuvastatin (CRESTOR) 20 mg tablet Take 1 tablet by mouth once daily. 90 tablet 0 CPAP/BIPAP/OTHER Type .CPAPSettings into a note to see current settings/supplies/DME information. 1 Each 0 metoprolol succinate ER (TOPROL XL) 50 mg 24 hr tablet Take 1.5 tablets by mouth once daily. 135 tablet 3 enoxaparin (LOVENOX) 120 mg/0.8 mL injection Inject 120 mg subcutaneously. CPAP/BIPAP/OTHER Continue ASV with current settings of EPAP 5 cm H2O with PS 4-12 cmH2O. Lifetime supplies for ASV, including patient preferred mask, head gear, heated tubing, humidity, filters, chin strap. Dx: Obstructive Sleep Apnea G47.33 DME: [facility] 1 Each 0 aspirin 81 mg chewable tablet Take 1 tablet by mouth once daily. BIPAP ASV EPAP min 5 cm H20, PS 4-12 cm H20. Mask fitting to consider Dream wear FFM. Provide lifetime supplies including tubing, heated humidity, filters. Dx: G47.33 AND G47.37. 1 Device 0 BIPAP Fax 30 day download report to [phone] to assess usage and residual AHI after receipt of replacement ASV. 1 Device 0 Melatonin 5 mg tab Take by mouth as needed. ACETAMINOPHEN (TYLENOL EXTRA STRENGTH ORAL) Take by mouth as needed. No current facility-administered medications for this visit. PHYSICAL EXAM: There were no vitals taken for this visit. GENERAL: Wnl nutrition, no deformities, healthy appearing ABDOMEN: Soft, nontender, nondistended, no masses. GENITOURINARY: MALE EXAM: Not indicated DATA/OR LABS TO BE REVIEWED: (Simple=1 data point; Complex= 2 or more) PSA (ng/mL) Date Value 08/03/2023 1.36 PSA Screening (ng/mL) Date Value 02/25/2024 1.01 Creatinine (mg/dL) Date Value 02/25/2024 0.90 08/03/2023 0.85 04/22/2023 0.87 08/19/2022 0.94 08/12/2022 0.90 08/05/2015 1.09 08/05/2015 1.03 02/17/2015 0.99 02/16/2015 0.92 02/15/2015 0.92 No results found for: TESTOST A/P: 53 year old male with a history of mechanical mitral valve on Coumadin and urethral stricture s/p ventral onlay BMG urethropl (more content not included)...[facility]12-18-2024 History of Present illness Narrative* Ramón Silva MD - 04/19/2024 1:51 PM EST HPI: 53 year old male with a history of mechanical mitral valve on Coumadin and urethral stricture s/p ventral onlay BMG urethroplasty in 2014 He was last seen on 10/2023. He had a scope last on 02/01/23 that showed mild annular stenosis at thedistal and proximal aspects of the repair that did accept the scope. He last summer also had an episode of bacterial prostatitis and was placed on cipro for 4 weeks. No urinary tract infections in our system since august and he states he has not had any . No issues with his stream or concerns of any kind for us today. PVR is 174. 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 [phone] Depression with anxiety obsessive compulsive disorder Gout 12/22/2022 HTN (hypertension) Hyperbilirubinemia 12/22/2022 Hyperlipemia Hypertension 11/16/2013 -cont home meds Hypertrophic obstructive cardiomyopathy (HCC) 2012 s/p myectomy Mitral stenosis 2013 s/p re-do MVR with mechanical valve 11/13/13 Nephrolithiasis 2017 Obstructive sleep apnea 2012 Urethral stricture PAST SURGICAL HISTORY Procedure Laterality Date ADENOIDECTOMY HX 05/03/1986 COLONOSCOPY 05/03/2011 COLONOSCOPY SCREENING 01/08/2022 EGD DIAGNOSTIC 11/10/2022 PAST SURGICAL HISTORY OF 01/23/2013 mitral valve repair, #32 Valerie ring, ligation of left atrial appendage PAST SURGICAL HISTORY OF 11/13/2013 Myectomy and MVr with de leon band and valvuloplasty. PAST SURGICAL HISTORY OF 11/20/2013 redo sternotomy MVR with mechanical ON X valve (27/29 mm). PAST SURGICAL HISTORY OF 01/29/2015 BMG Urethroplasty TONSILLECTOMY HX 05/03/1986 Social History Tobacco Use Smoking status: Never Smokeless tobacco: Never Vaping Use Vaping status: Never Used Substance Use Topics Alcohol use: No Comment: rarely Drug use: Never Current Outpatient Medications Medication Sig Dispense Refill dicyclomine (BENTYL) 10 mg capsule Take 1 capsule by mouth three times a day as needed (for abdominal pain). [address] (PROTONIX) 40 mg tablet Take 1 tablet by mouth once daily. On empty stomach at least 30 minutes before eating. 90 tablet 3 coenzyme Q10 (CO Q-10) 100 mg cap capsule Take 1 capsule by mouth once daily. warfarin (COUMADIN) 10 mg tablet Take 15 mg every Mon, Wed; 12.5 mg all other days or as directed by anticoagulation clinic. (Takes with 5 mg tablets) 90 tablet 2 warfarin (COUMADIN) 5 mg tablet Take 15 mg every Mon, Wed; 12.5 mg all other days or as directed byanticoagulation clinic. (Takes with 10 mg tablets) 90 tablet 1 rosuvastatin (CRESTOR) 20 mg tablet Take 1 tablet by mouth once daily. 90 tablet 0 CPAP/BIPAP/OTHER Type .CPAPSettings into a note to see current settings/supplies/DME information. 1Each 0 metoprolol succinate ER (TOPROL XL) 50 mg 24 hr tablet Take 1.5 tablets by mouth once daily. 135 tablet 3 enoxaparin (LOVENOX) 120 mg/0.8 mL injection Inject 120 mg subcutaneously. CPAP/BIPAP/OTHER Continue ASV with current settings of EPAP 5 cm H2O with PS 4- 12 cmH2O. Lifetime supplies for ASV, including patient preferred mask, head gear, heated tubing, humidity, filters, chin strap. Dx: Obstructive Sleep Apnea G47.33 DME: [facility] 1 Each 0 aspirin 81 mg chewable tablet Take 1 tablet by mouth once daily. BIPAP ASV EPAP min 5 cm H20, PS 4-12 cm H20. Mask fitting to consider Dream wear FFM. Provide lifetime supplies including tubing, heated humidity, filters. Dx: G47.33 & G47.37. 1 Device 0 BIPAP Fax 30 day download report to [phone] to assess usage and residual AHI after receipt of replacement ASV. 1 Device 0 Melatonin 5 mg tab Take by mouth as needed. ACETAMINOPHEN (TYLENOL EXTRA STRENGTH ORAL) Take by mouth as needed. No current facility-administered medications for this visit. PHYSICAL EXAM: There were no vitals taken for this visit. GENERAL: Wnl nutrition, no deformities, healthy appearing ABDOMEN: Soft, nontender, nondistended, no masses. GENITOURINARY: MALE EXAM: Not indicated DATA/OR LABS TO BE REVIEWED: (Simple=1 data point; Complex= 2 or more) PSA (ng/mL) Date Value 08/03/2023 1.36 PSA Screening (ng/mL) Date Value 02/25/2024 1.01 Creatinine (mg/dL) Date Value 02/25/2024 0.90 08/03/2023 0.85 04/22/2023 0.87 08/19/2022 0.94 08/12/2022 0.90 08/05/2015 1.09 08/05/2015 1.03 02/17/2015 0.99 02/16/2015 0.92 02/15/2015 0.92 No results found for: TESTOST A/P: 53 year old male with a history of mechanical mitral valve on Coumadin and urethral stricture s/p ventral onlay BMG urethroplasty in 2014 . Here for follow up. Previously having infections, however none in 6 months. Attributes this to no longer soaking in standing water. He is happy, his PVR has been stable. He will let us know if he has further UTI's. Maisha Van MD Attending Note I evaluated the patient and personally participated in the smart components. I agree with the resident's findings and plan as documented and have discussed the case and management of the patient's carewith the resident. Epic notes reviewed. Patient reports no infections over the last 6 months. Denies hematuria. Voiding pattern stable, adequate urinary stream. PVR noted - relatively stable Urinalysis pending Recent PSA 1.01 ASSESSMENT/PLAN: 1. Incomplete bladder emptying - ICD9: 788.21, ICD10: R33.9 (primary diagnosis) 2. History of urethral stricture - ICD9: V13.09, ICD10: Z87.448 Patient doing well at this time, will check urinalysis when available and continue to monitor closely. Return to clinic next fall for recheck. He will call if any problems in the interim. Signature: Ramón Silva MD Date: 04/19/2024 Time: 2:20 PM documented in this encounterProm[facility] NotePatient Outreach (UROLMN) GLENNGEORGIE ([id number]) 1970 M Date Time Provider Department 04/19/24 RAMÓN SILVA During your visit today, we recorded the following information about you: Allergies As of Date: 04/19/2024 Noted Allergy Reaction CODEINE 10/30/2013 1 - Mental Status Change SULFA DRUGS (SULFA (SULFONAMIDE A*04/21/2023 17 - Myalgia Date Reviewed: 04/19/2024 Reviewed by: Guillermo Pedro OCCA - Fully Assessed Visit Diagnosis:Screening for genitourinary condition [Z13.89] Order(s):UA DIP, URINE (POC) [5403091] Order #: [id number] FUTURE Prescriptions as of 04/24/2024 - dicyclomine (BENTYL) 10 mg capsule Take 1 capsule by mouth three times a day as needed (for abdominal pain). - pantoprazole DR (PROTONIX) 40 mg tablet Take 1 tablet by mouth once daily. On empty stomach at least 30 minutes before eating. - coenzyme Q10 (CO Q-10) 100 mg cap capsule Take 1 capsule by mouth once daily. - warfarin (COUMADIN) 10 mg tablet Take 15 mg every Mon, Wed; 12.5 mg all other days or as directed by anticoagulation clinic. (Takes with 5 mg tablets) - warfarin (COUMADIN) 5 mg tablet Take 15 mg every Mon, Wed; 12.5 mg all other days or as directed by anticoagulation clinic. (Takes with 10 mg tablets) - rosuvastatin (CRESTOR) 20 mg tablet Take 1 tablet by mouth once daily. - CPAP/BIPAP/OTHER Type .CPAPSettings into a note to see current settings/supplies/DME information. - metoprolol succinate ER (TOPROL XL) 50 mg 24 hr tablet Take 1.5 tablets by mouth once daily. - enoxaparin (LOVENOX) 120 mg/0.8 mL injection Inject 120 mg subcutaneously. - CPAP/BIPAP/OTHER Continue ASV with current settings of EPAP 5 cm H2O with PS 4-12 cmH2O. Lifetime supplies for ASV, including patient preferred mask, head gear, heated tubing, humidity, filters, chin strap. Dx: Obstructive Sleep Apnea G47.33 DME: [facility] - aspirin 81 mg chewable tablet Take 1 tablet by mouth once daily. - BIPAP ASV EPAP min 5 cm H20, PS 4-12 cm H20. Mask fitting to consider Dream wear FFM. Provide lifetime supplies including tubing, heated humidity, filters. Dx: G47.33 AND G47.37. - BIPAP Fax 30 day download report to [phone] to assess usage and residual AHI after receipt of replacement ASV. - Melatonin 5 mg tab Take by mouth as needed. - ACETAMINOPHEN (TYLENOL EXTRA STRENGTH ORAL) Take by mouth as needed. Problem List As Of Date 04/19/2024 Noted Resolved Pre-op testing [Z01.818] 11/01/2013 11/16/2013 History of cardiomyopathy [Z86.79] 11/01/2013 Mitral valve regurgitation [I34.0] 11/01/2013 11/16/2013 Cardiac insufficiency (HCC) [I50.9] 11/13/2013 11/14/2013 Stress hyperglycemia [R73.9] 11/13/2013 11/16/2013 Postoperative pain [G89.18] 11/13/2013 11/22/2013 LBBB [I44.7] 11/13/2013 Hypotension [I95.9] 11/13/2013 11/16/2013 Atelectasis [J98.11] 11/15/2013 04/29/2020 Fluid overload [E87.70] 11/15/2013 11/16/2013 Central sleep apnea treated with adaptive servo*11/15/2013 Urethral stricture [N35.919] 11/15/2013 11/16/2013 SUMMARY [V999.95] 11/16/2013 04/29/2020 Hypertension [I10] 11/16/2013 Pericardial effusion [I31.39] 11/17/2013 11/22/2013 Hypovolemia [E86.1] 11/20/2013 11/22/2013 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9] 12/22/2022 Diagnosed: 12/22/2022 Hyperbilirubinemia [E80.6] 12/22/2022 Diagnosed: 12/22/2022 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] 11/10/2022 Adenomatous colon polyp [D12.6] 01/08/2022 DOREEN (obstructive sleep apnea) [G47.33] 08/03/2023 Incomplete bladder emptying [R33.9] 10/11/2023 History of urethral stricture [Z87.448] 10/25/2023 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 Author Type: Physician Low Heel Builder Type: Progress Notes Filed: 04/17/2024 14:12 Note Text: CHIEF COMPLAINT: Patient presents with: GERD: Sometimes has abdominal pain for a few days at a time HPI Accompanied by sister Georgie Elizabeth is a 54 year old male here today for GERD (Sometimes has abdominal pain for a few days at a time). Surg hx positive for MVR, urethroplasty, adenoidectomy. Taking Protonix 40 mg daily for GERD with relief. Admits to epigastric pain for the past several mos, no change when eating. Experiencing intermittent dysphagia with solids. Has not noted any alleviating factors. Has been adhering to mostly gluten free diet. With probiotic smoothie daily, having regular Bms daily, no blood. Will occasionally take Aleve once every 3 mos, is aware he's not supposed to while being on coumadin. Denies N/V, weight loss, stress. Celiac 2022 genetic risk low positive, negative for active disease EGD 10/2022 [place] Grade B esophagitis, bile reflux INTERPRETATION: B. Antrum, biopsy: -Negative for Helicobacter pylori organisms. D. Distal esophagus, biopsy; -No evidence of dysplasia Colonoscopy 2021 diverticulosis, 5 mm polyp [facility] 10/2022 IMPRESSION: 1. NORMAL 99m Tc sulfur colloid semi-solid phase (oatmeal) gastric emptying imaging examination. A. There is normal and preserved semi-solid phase gastric emptying compared to normal controls. (Marianne gomez al, J Nucl Med Tech 38: 186, 2010). HIDA 08/2022 IMPRESSION: 1. Gallbladder is visualized. Patent cystic and common bile ducts. No scintigraphic evidence of acute cholecystitis. 2. Normal gallbladder ejection fraction. CT abd 08/2022 IMPRESSION: Interval increase in size of gallbladder stones. Nonobstructing left renal calculi. Interval stable to slight increase in size of low-attenuation lesion or cyst in the left kidney. Colonic diverticulosis without evidence of diverticulitis. OV 2022 Accompanied by sister Georgie Elizabeth is a 53 year old male here today for Procedure Follow Up (EGD 11/10/22 in [facility] 10/05/22). Surg hx positive for MVR, urethroplasty, adenoidectomy. Seen last for postprandial abd pain since 08/2021. On Questran daily, Protonix 40 mg daily. Feels as though PPI helps with reflux. Referred to Surgery last OV, seen by Dr. Madison and advised to treat reflux vs cholecystectomy. Lost 10 lbs intentionally since last OV. Denies current postprandial abd pain, changes in bowel habits. Current Outpatient Medications Medication Sig coenzyme Q10 (CO Q-10) 100 mg cap capsule Take 1 capsule by mouth once daily. warfarin (COUMADIN) 10 mg tablet Take 15 mg every Mon, Wed; 12.5 mg all other days or as directed by anticoagulation clinic. (Takes with 5 mg tablets) warfarin (COUMADIN) 5 mg tablet Take 15 mg every Mon, Wed; 12.5 mg all other days or as directed by anticoagulation clinic. (Takes with 10 mg tablets) pantoprazole DR (PROTONIX) 40 mg tablet Take 1 tablet by mouth once daily. On empty stomach at least 30 minutes before eating. rosuvastatin (CRESTOR) 20 mg tablet Take 1 tablet by mouth once daily. metoprolol succinate ER (TOPROL XL) 50 mg 24 hr tablet Take 1.5 tablets by mouth once daily. enoxaparin (LOVENOX) 120 mg/0.8 mL injection Inject 120 mg subcutaneously. CPAP/BIPAP/OTHER Continue ASV with current settings of EPAP 5 cm H2O with PS 4-12 cmH2O. Lifetime supplies for ASV, including patient preferred mask, head gear, heated tubing, humidity, filters, chin strap. Dx: Obstructive Sleep Apnea G47.33 DME: [facility] aspirin 81 mg chewable tablet Take 1 tablet by mouth once daily. Melatonin 5 mg tab Take by mouth as needed. ACETAMINOPHEN (TYLENOL EXTRA STRENGTH ORAL) Take by mouth as needed. CPAP/BIPAP/OTHER Type .CPAPSettings into a note to see current settings/supplies/DME information. BIPAP ASV EPAP min 5 cm H20, PS 4-12 cm H20. Mask fitting to consider Dream wear FFM. Provide lifetime supplies including tubing, heated humidity, filters. Dx: G47.33 AND G47.37. BIPAP Fax 30 day download report to [phone] to assess usage and residual AHI after receipt of replacement ASV. No current facility-administered medications for this visit. ALLERGIES Allergen Reactions Codeine Mental Status Change Sulfa Drugs [Sulfa * Myalgia Social History Tobacco Use Smoking status: Never Smokeless tobacco: Never Vaping Use Vaping status: Never Used Substance Use Topics Alcohol use: No Comment: rarely Drug use: Never PAST MEDICAL HISTORY Diagnosis Date Adenomatous colon polyp 01/08/2022 Anticoagulation adequate Allen's esophagus 12/22/2022 Bile reflux gastritis 11/10/2022 Central sleep apnea 11/15/2013 BiPAP Cholelithiasis 02/18/2020 [place] sleep apnea syndrome [place] [facility] [place]. [phone] Depression with anxiety obsessive compulsive disorder Gout 12/22/2022 HTN (hyper (more content not included)...[facility]12-16-2024 History of Present illness Narrative* Gayathri Sky PA-C - 04/17/2024 1:48 PM EST CHIEF COMPLAINT: Patient presents with: GERD: Sometimes has abdominal pain for a few days at a time HPI Accompanied by sister Georgie Elizabeth is a 54 year old male here today for GERD (Sometimes has abdominal pain for a few days at a time). Surg hx positive for MVR, urethroplasty, adenoidectomy. Taking Protonix 40 mg daily for GERD with relief. Admits to epigastric pain for the past several mos, no change when eating. Expe riencing intermittent dysphagia with solids. Has not noted any alleviating factors. Has been adhering to mostly gluten free diet. With probiotic smoothie daily, having regular Bms daily, no blood. Will occasionally take Aleve once every 3 mos, is aware he's not supposed to while being on coumadin. Denies N/V, weight loss, stress. Celiac 2022 genetic risk low positive, negative for active disease EGD 10/2022 [place] Grade B esophagitis, bile reflux INTERPRETATION: B. Antrum, biopsy: -Negative for Helicobacter pylori organisms. D. Distal esophagus, biopsy; -No evidence of dysplasia Colonoscopy 2021 diverticulosis, 5 mm polyp [facility] 10/2022 IMPRESSION: 1. NORMAL 99m Tc sulfur colloid semi-solid phase (oatmeal) gastric emptying imaging examination. A. There is normal and preserved semi-solid phase gastric emptying compared to normal controls. (Marianne et al, J Nucl Med Tech 38: 186, 2010). HIDA 08/2022 IMPRESSION: 1. Gallbladder is visualized. Patent cystic and common bile ducts. No scintigraphic evidence of acute cholecystitis. 2. Normal gallbladder ejection fraction. CT abd 08/2022 IMPRESSION: Interval increase in size of gallbladder stones. Nonobstructing left renal calculi. Interval stable to slight increase in size of low-attenuation lesion or cyst in the left kidney. Colonic diverticulosis without evidence of diverticulitis. OV 2022 Accompanied by sister Georgie Elizabeth is a 53 year old male here today for Procedure Follow Up (EGD 11/10/22 in [facility] 10/05/22). Surg hx positive for MVR, urethroplasty, adenoidectomy. Seen last for postprandial abd pain since 08/2021. On Questran daily, Protonix 40 mg daily. Feels as though PPI helps with reflux. Referred to Surgery last OV, seen by Dr. Madison and advised to treat reflux vs cholecystectomy. Lost 10 lbsintentionally since last OV. Denies current postprandial abd pain, changes in bowel habits. Current Outpatient Medications Medication Sig coenzyme Q10 (CO Q-10) 100 mg cap capsule Take 1 capsule by mouth once daily. warfarin (COUMADIN) 10 mg tablet Take 15 mg every Mon, Wed; 12.5 mg all other days or as directed by anticoagulation clinic. (Takes with 5 mg tablets) warfarin (COUMADIN) 5 mg tablet Take 15 mg every Mon, Wed; 12.5 mg all other days or as directed byanticoagulation clinic. (Takes with 10 mg tablets) pantoprazole DR (PROTONIX) 40 mg tablet Take 1 tablet by mouth once daily. On empty stomach at least 30 minutes before eating. rosuvastatin (CRESTOR) 20 mg tablet Take 1 tablet by mouth once daily. metoprolol succinate ER (TOPROL XL) 50 mg 24 hr tablet Take 1.5 tablets by mouth once daily. enoxaparin (LOVENOX) 120 mg/0.8 mL injection Inject 120 mg subcutaneously. CPAP/BIPAP/OTHER Continue ASV with current settings of EPAP 5 cm H2O with PS 4- 12 cmH2O. Lifetime supplies for ASV, including patient preferred mask, head gear, heated tubing, humidity, filters, chin strap. Dx: Obstructive Sleep Apnea G47.33 DME: [facility] aspirin 81 mg chewable tablet Take 1 tablet by mouth once daily. Melatonin 5 mg tab Take by mouth as needed. ACETAMINOPHEN (TYLENOL EXTRA STRENGTH ORAL) Take by mouth as needed. CPAP/BIPAP/OTHER Type .CPAPSettings into a note to see current settings/supplies/DME information. BIPAP ASV EPAP min 5 cm H20, PS 4-12 cm H20. Mask fitting to consider Dream wear FFM. Provide lifetime supplies including tubing, heated humidity, filters. Dx: G47.33 & G47.37. BIPAP Fax 30 day download report to [phone] to assess usage and residual AHI after receipt of replacement ASV. No current facility-administered medications for this visit. ALLERGIES Allergen Reactions Codeine Mental Status Change Sulfa Drugs [Sulfa * Myalgia Social History Tobacco Use Smoking status: Never Smokeless tobacco: Never Vaping Use Vaping status: Never Used Substance Use Topics Alcohol use: No Comment: rarely Drug use: Never PAST MEDICAL HISTORY Diagnosis Date Adenomatous colon polyp 01/08/2022 Anticoagulation adequate Allen's esophagus 12/22/2022 Bile reflux gastritis 11/10/2022 Central sleep apnea 11/15/2013 BiPAP Cholelithiasis 02/18/2020 Complex sleep apnea syndrome 2012 IMANI Cardenas fx. [phone] Depression with anxiety obsessive compulsive disorder Gout 12/22/2022 HTN (hypertension) Hyperbilirubinemia 12/22/2022 Hyperlipemia Hypertension 11/16/2013 -cont home meds Hypertrophic obstructive cardiomyopathy (HCC) 2012 s/p myectomy Mitral stenosis 2012 s/p re-do MVR with mechanical valve 11/13/13 Nephrolithiasis 2017 Obstructive sleep apnea 2012 Urethral stricture PAST SURGICAL HISTORY Procedure Laterality Date ADENOIDECTOMY HX 05/03/1986 COLONOSCOPY 05/03/2011 COLONOSCOPY SCREENING 01/08/2022 EGD DIAGNOSTIC 11/10/2022 PAST SURGICAL HISTORY OF 01/23/2013 mitral valve repair, #32 Valerie ring, ligation of left atrial appendage PAST SURGICAL HISTORY OF 11/13/2013 Myectomy and MVr with de leon band and valvuloplasty. PAST SURGICAL HISTORY OF 11/20/2013 redo sternotomy MVR with mechanical ON X valve (27/29 mm). PAST SURGICAL HISTORY OF 01/29/2015 BMG Urethroplasty TONSILLECTOMY HX 05/03/1986 FAMILY HISTORY Problem Relation Age of Onset other (Diverticulosis) Mother Heart Father [place], sudden 50's Colon Cancer Sister Heart Paternal Grandmother REVIEW OF SYSTEMS Review of Systems Respiratory: Positive for apnea and chest tightness. Cardiovascular: Positive for chest pain. Gastrointestinal: Positive for abdominal pain. Gas All other systems reviewed and are negative. PHYSICAL EXAM BP 114/70 Pulse 75 Ht 190.5 cm (6' 3) Wt 109.8 kg (242 lb) BMI 30.25 kg/m Physical Exam Constitutional: General: He is not in acute distress. Appearance: Normal appearance. He is normal weight. He is not ill-appearing, toxic-appearing or diaphoretic. HENT: Head: Normocephalic and atraumatic. Nose: Nose normal. Eyes: General: No scleral icterus. Right eye: No discharge. Left eye: No discharge. Extraocular Movements: Extraocular movements intact. Conjunctiva/sclera: Conjunctivae normal. Pupils: Pupils are equal, round, and reactive to light. Cardiovascular: Rate and Rhythm: Normal rate and regular rhythm. Pulses: Normal pulses. Heart sounds: Murmur heard. No friction rub. No gallop. Pulmonary: Effort: No respiratory distress. Breath sounds: Normal breath sounds. No stridor. No wheezing, rhonchi or rales. Chest: Chest wall: No tenderness. Abdominal: General: Abdomen is flat. Bowel sounds are normal. There is distension. Palpations: Abdomen is soft. There is no mass. Tenderness: There is abdominal tenderness (Mild generalized tenderness). There is no right CVA tenderness, left CVA tenderness, guarding or rebound. Hernia: No hernia is present. Musculoskeletal: General: Normal range of motion. Cervical back: Normal range of motion and neck supple. Skin: General: Skin is warm and dry. Neurological: General: No focal deficit present. Mental Status: He is alert and oriented to person, place, and time. Psychiatric: Mood and Affect: Mood normal. Behavior: Behavior normal. Assessment/Plan (R10.84) Generalized abdominal pain (primary encounter diagnosis) (R17) Elevated bilirubin (K80.20) Calculus of gallbladder without cholecystitis without obstruction (K21.00) Gastroesophageal reflux disease with esophagitis without hemorrhage (R13.10) Dysphagia, unspecified type 1. Generalized abdominal pain - COMPLETE BLOOD COUNT AND DIFFERENTIAL; Future - COMPREHENSIVE METABOLIC PANEL; Future - LIPASE; Future - dicyclomine (BENTYL) 10 mg capsule; Take 1 capsule by mouth three times a day as needed (for abdominal pain). Dispense: 30 capsule; Refill: 2 - XR ESOPHAGRAM; Future - Adhering to mostly GF diet with some improvement - Start Bentyl PRN - Check basic labs - RUQ to reassess gallbladder, h/o gallstones 2. Elevated bilirubin - US ABD RIGHT UPPER QUADRANT; Future 3. Calculus of gallbladder without cholecystitis without obstruction - US ABD RIGHT UPPER QUADRANT; Future 4. Gastroesophageal reflux disease with esophagitis without hemorrhage - pantoprazole DR (PROTONIX) 40 mg tablet; Take 1 tablet by mouth once daily. On empty stomach at least 30 minutes before eating. Dispense: 90 tablet; Refill: 3 - Continue Protonix 40 mg daily - Follow reflux precautions - Check esophagram 5. Dysphagia, unspecified type - XR ESOPHAGRAM; Future Follow up in office 6 months/PRN. Recommended to please call office/go to ER if fever, chills, chest pain, SOB, diarrhea, nausea, emesis, worsening abdominal pain, dehydration occurs I spent a total of 20 minutes on the date of the service which included preparing to see the patient, [id number] patient care, completing clinical documentation, obtaining and/or reviewing separately obtained history, performing a medically appropriate examination, counseling and educating the pat ient/family/caregiver, ordering medications, tests, or procedures, communicating with other HCPs (not separately reported), independently interpreting results (not separately reported), communicatingresults to the patient/family/caregiver, and care coordination (not separately reported). Gayathri Sky PA-C April 17, 2024 2:07 PM documented in this encounterPromed[facility]12[facility]24 NoteHNO ID: [id number] Author: DNIA JOYCE APRN.SHEET METAL WORKER APPRENTICE Service: ? Author Type: Nurse Practitioner Type: Progress Notes Filed: 04/14/2024 10:16 Note Text: CC: Patient presents with: Physical HPI Georgie Elizabeth is a 54 year old male who presents today for above. Patient is scheduled today for a physical but he had one last month. Feeling well overall and denies any concerns today. He is taking all medications as prescribed, denies side effects. INR's monitored by pharmacy and have been therapeutic. Denies any unusual bleeding. He has been experiencing abdominal discomfort/pain intermittently, scheduled with GI next week for evaluation. He wears ASV device nightly for CSA treatment. Following up routinely with specialists as instructed. Review of Systems Constitutional: Positive for fatigue (chronic, no worsening). Negative for chills, diaphoresis, fever and unexpected weight change. Respiratory: Negative for cough, shortness of breath and wheezing. Cardiovascular: Negative for chest pain, palpitations and leg swelling. Neurological: Negative for dizziness, syncope, weakness, light-headedness and headaches. 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 [phone] Depression with anxiety obsessive compulsive disorder Gout 12/22/2022 HTN (hypertension) Hyperbilirubinemia 12/22/2022 Hyperlipemia Hypertension 11/16/2013 -cont home meds Hypertrophic obstructive cardiomyopathy (HCC) 2012 s/p myectomy Mitral stenosis 2012 s/p re-do MVR with mechanical valve 11/13/13 Nephrolithiasis 2017 Obstructive sleep apnea 2011 Urethral stricture PAST SURGICAL HISTORY Procedure Laterality Date ADENOIDECTOMY HX 05/03/1986 COLONOSCOPY 05/03/2011 COLONOSCOPY SCREENING 01/08/2022 EGD DIAGNOSTIC 11/10/2022 PAST SURGICAL HISTORY OF 01/23/2013 mitral valve repair, #32 Valerie ring, ligation of left atrial appendage PAST SURGICAL HISTORY OF 11/13/2013 Myectomy and MVr with de leon band and valvuloplasty. PAST SURGICAL HISTORY OF 11/20/2013 redo sternotomy MVR with mechanical ON X valve (27/29 mm). PAST SURGICAL HISTORY OF 01/29/2015 BMG Urethroplasty TONSILLECTOMY HX 05/03/1986 ALLERGIES Codeine and Sulfa Drugs [Sulfa (Sulfonamide Antibiotics)] MEDICATIONS warfarin (COUMADIN) 10 mg tablet Take 15 mg every Mon, Wed; 12.5 mg all other days or as directed by anticoagulation clinic. (Takes with 5 mg tablets) warfarin (COUMADIN) 5 mg tablet Take 15 mg every Mon, Wed; 12.5 mg all other days or as directed by anticoagulation clinic. (Takes with 10 mg tablets) pantoprazole DR (PROTONIX) 40 mg tablet Take 1 tablet by mouth once daily. On empty stomach at least 30 minutes before eating. rosuvastatin (CRESTOR) 20 mg tablet Take 1 tablet by mouth once daily. metoprolol succinate ER (TOPROL XL) 50 mg 24 hr tablet Take 1.5 tablets by mouth once daily. coenzyme Q10 (CO Q-10) 100 mg cap capsule Take 1 capsule by mouth once daily. aspirin 81 mg chewable tablet Take 1 tablet by mouth once daily. BIPAP ASV EPAP min 5 cm H20, PS 4-12 cm H20. Mask fitting to consider Dream wear FFM. Provide lifetime supplies including tubing, heated humidity, filters. Dx: G47.33 AND G47.37. BIPAP Fax 30 day download report to [phone] to assess usage and residual AHI after receipt of replacement ASV. Melatonin 5 mg tab Take by mouth as needed. ACETAMINOPHEN (TYLENOL EXTRA STRENGTH ORAL) Take by mouth as needed. CPAP/BIPAP/OTHER Type .CPAPSettings into a note to see current settings/supplies/DME information. enoxaparin (LOVENOX) 120 mg/0.8 mL injection Inject 120 mg subcutaneously. CPAP/BIPAP/OTHER Continue ASV with current settings of EPAP 5 cm H2O with PS 4-12 cmH2O. Lifetime supplies for ASV, including patient preferred mask, head gear, heated tubing, humidity, filters, chin strap. Dx: Obstructive Sleep Apnea G47.33 DME: RO[facility] BIPAP Please service machine, humidifier causing issues. Lifetime supplies G47.33 DOREEN FAMILY HISTORY Problem Relation Age of Onset other (Diverticulosis) Mother Heart Father [place], sudden 50's Colon Cancer Sister Heart Paternal Grandmother Social History Tobacco Use Smoking status: Never Smokeless tobacco: Never Vaping Use Vaping status: Never Used Substance Use Topics Alcohol use: No Comment: rarely Drug use: Never BP 126/84 Pulse 73 Resp 16 Ht 191 cm (6' 3.2) Wt 109 kg (240 lb 4.8 oz) SpO2 98% BMI 29.88 kg/m? Physical Exam Vitals reviewed. Constitutional: Appearance: Normal appearance. Cardiovascular: Rate and Rhythm: Normal rate and regular rhythm. Heart sounds: Normal heart sounds. Pulmonary: Effort: Pulmonary effort is normal. Breath so (more content not included)...[facility]12-13-2024 History of Present illness Narrative* Dina Joyce, 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 - 04/14/2024 9:53 AM EST CC: Patient presents with: Physical HPI Georgie Elizabeth is a 54 year old male who presents today for above. Patient is scheduled today for a physical but he had one last month. Feeling well overall and denies any concerns today. He is taking all medications as prescribed, denies side effects. INR's monitored by pharmacy and have been therapeutic. Denies any unusual bleeding. He has been experiencing abdominal discomfort/pain intermittently, scheduled with GI next week for evaluation. He wears ASV device nightly for CSA treatment. Following up routinely with specialists as instructed. Review of Systems Constitutional: Positive for fatigue (chronic, no worsening). Negative for chills, diaphoresis, fever and unexpected weight change. Respiratory: Negative for cough, shortness of breath and wheezing. Cardiovascular: Negative for chest pain, palpitations and leg swelling. Neurological: Negative for dizziness, syncope, weakness, light-headedness and headaches. 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 [phone] Depression with anxiety obsessive compulsive disorder Gout 12/22/2022 HTN (hypertension) Hyperbilirubinemia 12/22/2022 Hyperlipemia Hypertension 11/16/2013 -cont home meds Hypertrophic obstructive cardiomyopathy (HCC) 2013 s/p myectomy Mitral stenosis 2013 s/p re-do MVR with mechanical valve 11/13/13 Nephrolithiasis 2017 Obstructive sleep apnea 2012 Urethral stricture PAST SURGICAL HISTORY Procedure Laterality Date ADENOIDECTOMY HX 05/03/1986 COLONOSCOPY 05/03/2011 COLONOSCOPY SCREENING 01/08/2022 EGD DIAGNOSTIC 11/10/2022 PAST SURGICAL HISTORY OF 01/23/2013 mitral valve repair, #32 Valerie ring, ligation of left atrial appendage PAST SURGICAL HISTORY OF 11/13/2013 Myectomy and MVr with de leno band and valvuloplasty. PAST SURGICAL HISTORY OF 11/20/2013 redo sternotomy MVR with mechanical ON X valve (27/29 mm). PAST SURGICAL HISTORY OF 01/29/2015 BMG Urethroplasty TONSILLECTOMY HX 05/03/1986 ALLERGIES Codeine and Sulfa Drugs [Sulfa (Sulfonamide Antibiotics)] MEDICATIONS warfarin (COUMADIN) 10 mg tablet Take 15 mg every Mon, Wed; 12.5 mg all other days or as directed by anticoagulation clinic. (Takes with 5 mg tablets) warfarin (COUMADIN) 5 mg tablet Take 15 mg every Mon, Wed; 12.5 mg all other days or as directed byanticoagulation clinic. (Takes with 10 mg tablets) pantoprazole DR (PROTONIX) 40 mg tablet Take 1 tablet by mouth once daily. On empty stomach at least 30 minutes before eating. rosuvastatin (CRESTOR) 20 mg tablet Take 1 tablet by mouth once daily. metoprolol succinate ER (TOPROL XL) 50 mg 24 hr tablet Take 1.5 tablets by mouth once daily. coenzyme Q10 (CO Q-10) 100 mg cap capsule Take 1 capsule by mouth once daily. aspirin 81 mg chewable tablet Take 1 tablet by mouth once daily. BIPAP ASV EPAP min 5 cm H20, PS 4-12 cm H20. Mask fitting to consider Dream wear FFM. Provide lifetime supplies including tubing, heated humidity, filters. Dx: G47.33 & G47.37. BIPAP Fax 30 day download report to [phone] to assess usage and residual AHI after receipt of replacement ASV. Melatonin 5 mg tab Take by mouth as needed. ACETAMINOPHEN (TYLENOL EXTRA STRENGTH ORAL) Take by mouth as needed. CPAP/BIPAP/OTHER Type .CPAPSettings into a note to see current settings/supplies/DME information. enoxaparin (LOVENOX) 120 mg/0.8 mL injection Inject 120 mg subcutaneously. CPAP/BIPAP/OTHER Continue ASV with current settings of EPAP 5 cm H2O with PS 4- 12 cmH2O. Lifetime supplies for ASV, including patient preferred mask, head gear, heated tubing, humidity, filters, chin strap. Dx: Obstructive Sleep Apnea G47.33 DME: ROSEM[facility] BIPAP Please service machine, humidifier causing issues. Lifetime supplies G47.33 DOREEN FAMILY HISTORY Problem Relation Age of Onset other (Diverticulosis) Mother Heart Father [place], sudden 50's Colon Cancer Sister Heart Paternal Grandmother Social History Tobacco Use Smoking status: Never Smokeless tobacco: Never Vaping Use Vaping status: Never Used Substance Use Topics Alcohol use: No Comment: rarely Drug use: Never BP 126/84 Pulse 73 Resp 16 Ht 191 cm (6' 3.2) Wt 109 kg (240 lb 4.8 oz) SpO2 98% BMI 29.88 kg/m Physical Exam Vitals reviewed. Constitutional: Appearance: Normal appearance. Cardiovascular: Rate and Rhythm: Normal rate and regular rhythm. Heart sounds: Normal heart sounds. Pulmonary: Effort: Pulmonary effort is normal. Breath sounds: Normal breath sounds. No wheezing, rhonchi or rales. Musculoskeletal: Right lower leg: No edema. Left lower leg: No edema. Neurological: Mental Status: He is alert. Health maintenance reviewed with patient: BP Controlled (<130/80) due on 06/19/2023 Influenza Vaccine(1) due on 10/30/2024 Hepatitis B Vaccine(1 of 3 - 19+ 3-dose series) due on 04/14/2025 Shingrix Vaccine(1 of 2) due on 04/14/2025 Covid-19 Vaccine( - season) due on 04/14/2025 Annual PCP Team Chronic Disease Visit due on 04/14/2025 Depression Screening due on 04/14/2025 Anxiety Screening due on 04/14/2025 Colorectal Cancer Screening due on 01/08/2027 Diabetes Screening due on 02/24/2027 DTaP,Tdap,Td Vaccine(2 - Td or Tdap) due on 08/02/2028 Lipid Screening due on 02/24/2029 Hepatitis C Screening Completed HIV Screening Completed DATA REVIEWED: Most recent labs Latest Ref Rng 02/25/2024 WBC 3.70 - 11.00 k/uL 8.03 RBC 4.20 - 6.00 m/uL 5.61 Hemoglobin 13.0 - 17.0 g/dL 15.3 Hematocrit 39.0 - 51.0 % 46.6 MCV 80.0 - 100.0 fL 83.1 MCH 26.0 - 34.0 pg 27.3 MCHC 30.5 - 36.0 g/dL 32.8 RDW-CV 11.5 - 15.0 % 13.9 Platelet Count 150 - 400 k/uL 336 MPV 9.0 - 12.7 fL 8.5 (L) Neut% % 57.6 Abs Neut (ANC) 1.45 - 7.50 k/uL 4.62 Lymph% % 30.5 Abs Lymph 1.00 - 4.00 k/uL 2.45 Swift% % 9.2 Abs Swift <0.87 k/uL 0.74 Eosin% % 2.1 Abs Eosin <0.46 k/uL 0.17 Baso% % 0.5 Abs Baso <0.11 k/uL 0.04 Immature Gran % % 0.1 IMMATURE GRANS (ABS) <0.10 k/uL <0.03 NRBC /100 WBC 0.0 Absolute nRBC <0.01 k/uL <0.01 DTYPE Auto Glucose 74 - 99 mg/dL 99 BUN 9 - 24 mg/dL 13 Creatinine 0.73 - 1.22 mg/dL 0.90 Sodium 136 - 144 mmol/L 137 Potassium 3.7 - 5.1 mmol/L 4.3 Chloride 98 - 107 mmol/L 102 CO2 22 - 30 mmol/L 27 Anion Gap 8 - 15 mmol/L 8 Calcium 8.5 - 10.2 mg/dL 10.1 eGFR >=60 mL/min/1.73m 102 Cholesterol, Total <200 mg/dL 151 Triglyceride <150 mg/dL 188 (H) HDL Cholesterol >39 mg/dL 31 (L) Non HDL Cholesterol <130 mg/dL 120 Fasting Time hrs 14 VLDL Cholesterol <30 mg/dL 38 (H) TC:HDL Ratio <5.10 4.87 LDL Cholesterol <100 mg/dL 82 LDL:HDL Ratio <2.54 2.65 (H) Albumin 3.9 - 4.9 g/dL 4.6 Bilirubin, Total 0.2 - 1.3 mg/dL 1.7 (H) Bilirubin, Direct <0.2 mg/dL 0.4 (H) Alkaline Phosphatase 38 - 113 U/L 70 AST 14 - 40 U/L 20 ALT 10 - 54 U/L 23 Protein, Total 6.3 - 8.0 g/dL 7.4 Hemoglobin A1C 4.3 - 5.6 % 5.6 Estimated Average Glucose mg/dL 114 PSA Screening <2.60 ng/mL 1.01 TSH 0.270 - 4.200 mIU/L 1.190 ASSESSMENT/PLAN: 1. Primary hypertension - ICD9: 401.9, ICD10: I10 (primary diagnosis) - Controlled - Continue current medications - Recommend home blood pressure monitoring, to bring results to next visit - Encouraged sodium restriction, DASH or Mediterranean diet 2. Central sleep apnea treated with adaptive servo-ventilation (ASV) device - ICD9: 327.21, V46.8, ICD10: G47.31, Z99.89 Compliant with treatment 3. Abdominal pain, unspecified abdominal location - ICD9: 789.00, ICD10: R10.9 Scheduled with GI next week, keep appointment 4. Hyperbilirubinemia - ICD9: 782.4, ICD10: E80.6 Intermittent elevations, follow-up with GI next week 5. S/P MVR (mitral valve replacement) - ICD9: V43.3, ICD10: Z95.2 - COENZYME Q10 100 MG CAPSULE 6. senior care (current) use of anticoagulants - ICD9: V58.61, ICD10: Z79.01 Compliant with monitoring 7. Screening for depression - ICD9: V79.0, ICD10: Z13.31 - DEPRESSION SCREENING 8. Encounter for screening examination for other mental health and behavioral disorders - ICD9: V79.8, ICD10: Z13.39 - ANXIETY SCREENING Prescription instructions reviewed with patient as applicable. Potential red flag symptoms discussed with the patient. Reviewed appropriate action plan to take if red flag symptoms occur. Patient agreeable to treatment plan. Dina Joyce APRN.SHEET METAL WORKER APPRENTICE documented in this encounterPromed[facility]11-29-2024 Telephone encounter Note * Telephone Encounter - Brenda Fragoso RN - 03/31/2024 10:43 AM EST Summer from [employer] calling to report the patient's INR result 03/30. Noted result has been addressed below. Minnie Fragoso RN Pharmacy Anticoagulation Clinic [facility]11-29-2024 Miscellaneous Notes* Telephone Encounter - Brenda Fragoso RN - 03/31/2024 10:43 AM EST Summer from [employer] calling to report the patient's INR result 03/30. Noted result has been addressed below. Minnie Fragoso RN Pharmacy Anticoagulation Clinic * Telephone Encounter - Vane Matute RPh - 03/31/2024 8:26 AM EST [facility] Anticoagulation Episode Summary Anticoagulation Care Providers Provider Role Specialty Phone number Saurav Bob MD Referring Internal Medicine [phone] Georgie Elizabeth is a 54 year old year old male patient being evaluated today for a Telemanagement visit. Patient is currently on the following anticoagulant(s) Warfarin. Labs PT INR (no units) Date Value 10/04/2023 2.0 07/11/2023 2.8 johanna per pt 01/26/2023 4.8 (self-reporting) INR Home CoaguChek (no units) Date Value 03/30/2024 1.7 02/15/2024 2.5 01/18/2024 2.7 Hemoglobin (g/dL) Date Value 02/25/2024 15.3 08/05/2015 14.6 Hematocrit (%) Date Value 02/25/2024 46.6 08/05/2015 43.7 Platelet Count (k/uL) Date Value 02/25/2024 336 08/05/2015 327 Creatinine (mg/dL) Date Value 02/25/2024 0.90 08/03/2023 0.85 04/22/2023 0.87 08/05/2015 1.09 08/05/2015 1.03 02/17/2015 0.99 Bilirubin, Total (mg/dL) Date Value 02/25/2024 1.7 08/05/2015 0.8 ALT (U/L) Date Value 02/25/2024 23 08/05/2015 34 AST (U/L) Date Value 02/25/2024 20 08/05/2015 23 CrCl cannot be calculated (Unknown ideal weight.). ALLERGIES Allergen Reactions Codeine Mental Status Change Sulfa Drugs [Sulfa * Myalgia Indication for Warfarin: Mechanical heart valve present senior care (current) use of anticoagulants History of mitral valve replacement with mechanical valve Anticoagulation Episode Summary Current INR goal: 2.5-3.5 Assessment: INR result of 1.7 is SUBtherapeutic due to: No obvious cause (patient denies liver, green tea, new herbal/nutritional supplements - such as Boost, Ensure, an increase in vit K foods and/or V8 type juices, any changes in warfarin tablet, or missed doses) Plan: Current Warfarin Dosing As of 03/31/2024 Full warfarin instructions: 03/31: 17.5 mg; Otherwise 12.5 mg every Mon, Wed, Fri; 10 mg all other days Called and spoke to patient/caregiver Advised patient to increase dose for 1 day only then resume weekly regimen Next home INR check scheduled on 04/06/2024 Patient verbalizes understanding of the plan. Patient denies need for refills. Patient advised to call the PAC with any medication changes, bleeding/bruising concerns, recent changes in vitamin k consumption, if any procedures are coming up, if they have been ill or in the hospital, and if they have missed any doses of warfarin. Vane Matute RPh Clinical Pharmacist, Pharmacy Anticoagulation Clinic Pharmacy Anticoagulation Clinic Pager: [phone]. documented in this encounterPromedica Defiance [facility]11-29-2024 Telephone encounter Note * Telephone Encounter - Vane Matute RPh - 03/31/2024 8:26 AM EST [facility] Anticoagulation Episode Summary Anticoagulation Care Providers Provider Role Specialty Phone number Saurav Bob MD Referring Internal Medicine [phone] Georgie Elizabeth is a 54 year old year old male patient being evaluated today for a Telemanagement visit. Patient is currently on the following anticoagulant(s) Warfarin. Labs PT INR (no units) Date Value 10/04/2023 2.0 07/11/2023 2.8 johanna per pt 01/26/2023 4.8 (self-reporting) INR Home CoaguChek (no units) Date Value 03/30/2024 1.7 02/15/2024 2.5 01/18/2024 2.7 Hemoglobin (g/dL) Date Value 02/25/2024 15.3 08/05/2015 14.6 Hematocrit (%) Date Value 02/25/2024 46.6 08/05/2015 43.7 Platelet Count (k/uL) Date Value 02/25/2024 336 08/05/2015 327 Creatinine (mg/dL) Date Value 02/25/2024 0.90 08/03/2023 0.85 04/22/2023 0.87 08/05/2015 1.09 08/05/2015 1.03 02/17/2015 0.99 Bilirubin, Total (mg/dL) Date Value 02/25/2024 1.7 08/05/2015 0.8 ALT (U/L) Date Value 02/25/2024 23 08/05/2015 34 AST (U/L) Date Value 02/25/2024 20 08/05/2015 23 CrCl cannot be calculated (Unknown ideal weight.). ALLERGIES Allergen Reactions Codeine Mental Status Change Sulfa Drugs [Sulfa * Myalgia Indication for Warfarin: Mechanical heart valve present senior care (current) use of anticoagulants History of mitral valve replacement with mechanical valve Anticoagulation Episode Summary Current INR goal: 2.5-3.5 Assessment: INR result of 1.7 is SUBtherapeutic due to: No obvious cause (patient denies liver, green tea, new herbal/nutritional supplements - such as Boost, Ensure, an increase in vit K foods and/or V8 type juices, any changes in warfarin tablet, or missed doses) Plan: Current Warfarin Dosing As of 03/31/2024 Full warfarin instructions: 03/31: 17.5 mg; Otherwise 12.5 mg every Mon, Wed, Fri; 10 mg all other days Called and spoke to patient/caregiver Advised patient to increase dose for 1 day only then resume weekly regimen Next home INR check scheduled on 04/06/2024 Patient verbalizes understanding of the plan. Patient denies need for refills. Patient advised to call the PAC with any medication changes, bleeding/bruising concerns, recent changes in vitamin k consumption, if any procedures are coming up, if they have been ill or in the hospital, and if they have missed any doses of warfarin. Vane Matute RPh Clinical Pharmacist, [facility] Pager: [phone]. [facility]10-30-2024 NotePatient Outreach (UROLMN) GLENN,GEORGIE R ([id number]) 1970 M Date Time Provider Department 03/01/24 RAMÓN SILVA During your visit today, we recorded the following information about you: Allergies As of Date: 03/01/2024 Noted Allergy Reaction CODEINE 10/30/2013 1 - Mental Status Change SULFA DRUGS (SULFA (SULFONAMIDE A*04/21/2023 17 - Myalgia Date Reviewed: 10/25/2023 Reviewed by: Guillermo Pedro OCCA - Fully Assessed Visit Diagnosis:Screening for genitourinary condition [Z13.89] Order(s):URINALYSIS, REFLEX MICROSCOPIC [THB1316] Order #: [id number] Prescriptions as of 03/06/2024 - warfarin (COUMADIN) 10 mg tablet Take 15 mg every Wed, Wed; 12.5 mg all other days or as directed by anticoagulation clinic. (Takes with 5 mg tablets) - warfarin (COUMADIN) 5 mg tablet Take 15 mg every Wed, Wed; 12.5 mg all other days or as directed by anticoagulation clinic. (Takes with 10 mg tablets) - pantoprazole DR (PROTONIX) 40 mg tablet Take 1 tablet by mouth once daily. On empty stomach at least 30 minutes before eating. - rosuvastatin (CRESTOR) 20 mg tablet Take 1 tablet by mouth once daily. - CPAP/BIPAP/OTHER Type .CPAPSettings into a note to see current settings/supplies/DME information. - metoprolol succinate ER (TOPROL XL) 50 mg 24 hr tablet Take 1.5 tablets by mouth once daily. - coenzyme Q10 (CO Q-10) 100 mg cap capsule Take 1 capsule by mouth once daily. - enoxaparin (LOVENOX) 120 mg/0.8 mL injection Inject 120 mg subcutaneously. - CPAP/BIPAP/OTHER Continue ASV with current settings of EPAP 5 cm H2O with PS 4-12 cmH2O. Lifetime supplies for ASV, including patient preferred mask, head gear, heated tubing, humidity, filters, chin strap. Dx: Obstructive Sleep Apnea G47.33 DME: [facility] - aspirin 81 mg chewable tablet Take 1 tablet by mouth once daily. - BIPAP Please service machine, humidifier causing issues. Lifetime supplies G47.33 DOREEN - BIPAP ASV EPAP min 5 cm H20, PS 4-12 cm H20. Mask fitting to consider Dream wear FFM. Provide lifetime supplies including tubing, heated humidity, filters. Dx: G47.33 AND G47.37. - BIPAP Fax 30 day download report to [phone] to assess usage and residual AHI after receipt of replacement ASV. - Melatonin 5 mg tab Take by mouth as needed. - ACETAMINOPHEN (TYLENOL EXTRA STRENGTH ORAL) Take by mouth as needed. Facility-Administered Medications as of 03/06/2024 - perflutren lipid microspheres 1.3 mL in NaCl (PF) 0.9% 10 mL injection (DEFINITY) - sodium chloride 0.9 % (flush) 10 mL (BD POSIFLUSH) Problem List As Of Date 03/01/2024 Noted Resolved Pre-op testing [Z01.818] 11/01/2013 11/16/2013 History of cardiomyopathy [Z86.79] 11/01/2013 Mitral valve regurgitation [I34.0] 11/01/2013 11/16/2013 Cardiac insufficiency (HCC) [I50.9] 11/13/2013 11/14/2013 Stress hyperglycemia [R73.9] 11/13/2013 11/16/2013 Postoperative pain [G89.18] 11/13/2013 11/22/2013 LBBB [I44.7] 11/13/2013 Hypotension [I95.9] 11/13/2013 11/16/2013 Atelectasis [J98.11] 11/15/2013 04/29/2020 Fluid overload [E87.70] 11/15/2013 11/16/2013 Central sleep apnea treated with adaptive servo*11/15/2013 Urethral stricture [N35.919] 11/15/2013 11/16/2013 SUMMARY [V999.95] 11/16/2013 04/29/2020 Hypertension [I10] 11/16/2013 Pericardial effusion [I31.39] 11/17/2013 11/22/2013 Hypovolemia [E86.1] 11/20/2013 11/22/2013 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9] 12/22/2022 Diagnosed: 12/22/2022 Hyperbilirubinemia [E80.6] 12/22/2022 Diagnosed: 12/22/2022 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] 11/10/2022 Adenomatous colon polyp [D12.6] 01/08/2022 DOREEN (obstructive sleep apnea) [G47.33] 08/03/2023 Incomplete bladder emptying [R33.9] 10/11/2023 History of urethral stricture [Z87.448] 10/25/2023 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] 11/25/2023 Encounter Status:Closed by MICH LOPEZ on 03/06/24[facility] 02-18-2024 Telephone encounter Note* Telephone Encounter - Renee Treviño LPN - 02/18/2024 8:03 AM EDT The patient has been identified by name and date of : Yes Caregiver verified no other encounters exist for this prescription request: Yes Caregiver confirmed with patient/requestor that no other refills are due, in the near future, with this provider at this time: Yes The last office visit in the department: 12/21/22 Does the patient have a future office visit with this provider/department: Yes 04/12/24 physical Requested Prescriptions Pending Prescriptions Disp Refills warfarin (COUMADIN) 10 mg tablet 90 tablet 2 Sig: Take 15 mg every Mon, Wed; 12.5 mg all other days or as directed by anticoagulation clinic. (Takes with 5 mg tablets) warfarin (COUMADIN) 5 mg tablet 90 tablet 1 Sig: Take 15 mg every Mon, Wed; 12.5 mg all other days or as directed by anticoagulation clinic. (Takes with 10 mg tablets) Renee Treviño LPN February 18, 2024 8:08 AM [facility]10-18-2024 Miscellaneous Notes* Telephone Encounter - Renee Treviño LPN - 02/18/2024 8:03 AM EDT The patient has been identified by name and date of : Yes Caregiver verified no other encounters exist for this prescription request: Yes Caregiver confirmed with patient/requestor that no other refills are due, in the near future, with this provider at this time: Yes The last office visit in the department: 12/21/22 Does the patient have a future office visit with this provider/department: Yes 04/12/24 physical Requested Prescriptions Pending Prescriptions Disp Refills warfarin (COUMADIN) 10 mg tablet 90 tablet 2 Sig: Take 15 mg every Mon, Wed; 12.5 mg all other days or as directed by anticoagulation clinic. (Takes with 5 mg tablets) warfarin (COUMADIN) 5 mg tablet 90 tablet 1 Sig: Take 15 mg every Mon, Wed; 12.5 mg all other days or as directed by anticoagulation clinic. (Takes with 10 mg tablets) Renee Treviño LPN February 18, 2024 8:08 AM documented in this encounterProm[facility]10[facility] Telephone encounter Note * Telephone Encounter - Harini Cesar RPh - 02/16/2024 8:47 AM EDT [facility] Ambulatory Pharmacy Anticoagulation Clinic Anticoagulation Episode Summary Anticoagulation Care Providers Provider Role Specialty Phone number Saurav Bob MD Referring Internal Medicine [phone] Georgie Elizabeth is a 53 year old year old male patient being evaluated today for a Telemanagement visit. Patient is currently on the following anticoagulant(s) Warfarin. Labs PT INR (no units) Date Value 10/04/2023 2.0 07/11/2023 2.8 johanna per pt 01/26/2023 4.8 (self-reporting) INR Home CoaguChek (no units) Date Value 02/15/2024 2.5 01/18/2024 2.7 12/28/2023 2.6 Hemoglobin (g/dL) Date Value 08/03/2023 14.8 08/05/2015 14.6 Hematocrit (%) Date Value 08/03/2023 44.8 08/05/2015 43.7 Platelet Count (k/uL) Date Value 08/03/2023 281 08/05/2015 327 Creatinine (mg/dL) Date Value 08/03/2023 0.85 04/22/2023 0.87 08/19/2022 0.94 08/05/2015 1.09 08/05/2015 1.03 02/17/2015 0.99 Bilirubin, Total (mg/dL) Date Value 08/03/2023 1.3 08/05/2015 0.8 ALT (U/L) Date Value 08/03/2023 26 08/05/2015 34 AST (U/L) Date Value 08/03/2023 21 08/05/2015 23 CrCl cannot be calculated (Patient's most recent lab result is older than the maximum 180 days allowed.). ALLERGIES Allergen Reactions Codeine Mental Status Change Sulfa Drugs [Sulfa * Myalgia Indication for Warfarin: Mechanical heart valve present senior care (current) use of anticoagulants History of mitral valve replacement with mechanical valve Anticoagulation Episode Summary Current INR goal: 2.5-3.5 Assessment: INR result of 2.5 is therapeutic Plan: Current Warfarin Dosing As of 02/16/2024 Full warfarin instructions: 12.5 mg every Mon, Wed, Fri; 10 mg all other days Sent [employer] message Advised patient to continue current weekly dose as noted above Next lab INR check scheduled on 03/15/2024 Patient advised to call the PAC with any medication changes, bleeding/bruising concerns, recent changes in vitamin k consumption, if any procedures are coming up, if they have been ill or in the hospital, and if they have missed any doses of warfarin. Harini Cesar RPh Clinical Pharmacist, Pharmacy Anticoagulation Clinic Pharmacy Anticoagulation Clinic Pager: [phone]. [facility]10-16-2024 Miscellaneous Notes* Telephone Encounter - Harini Cesar RPh - 02/16/2024 8:47 AM EDT [facility] Ambulatory Pharmacy Anticoagulation Clinic Anticoagulation Episode Summary Anticoagulation Care Providers Provider Role Specialty Phone number Saurav Bob MD Referring Internal Medicine [phone] Georgie Elizabeth is a 53 year old year old male patient being evaluated today for a Telemanagement visit. Patient is currently on the following anticoagulant(s) Warfarin. Labs PT INR (no units) Date Value 10/04/2023 2.0 07/11/2023 2.8 johanna per pt 01/26/2023 4.8 (self-reporting) INR Home CoaguChek (no units) Date Value 02/15/2024 2.5 01/18/2024 2.7 12/28/2023 2.6 Hemoglobin (g/dL) Date Value 08/03/2023 14.8 08/05/2015 14.6 Hematocrit (%) Date Value 08/03/2023 44.8 08/05/2015 43.7 Platelet Count (k/uL) Date Value 08/03/2023 281 08/05/2015 327 Creatinine (mg/dL) Date Value 08/03/2023 0.85 04/22/2023 0.87 08/19/2022 0.94 08/05/2015 1.09 08/05/2015 1.03 02/17/2015 0.99 Bilirubin, Total (mg/dL) Date Value 08/03/2023 1.3 08/05/2015 0.8 ALT (U/L) Date Value 08/03/2023 26 08/05/2015 34 AST (U/L) Date Value 08/03/2023 21 08/05/2015 23 CrCl cannot be calculated (Patient's most recent lab result is older than the maximum 180 days allowed.). ALLERGIES Allergen Reactions Codeine Mental Status Change Sulfa Drugs [Sulfa * Myalgia Indication for Warfarin: Mechanical heart valve present 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 History of mitral valve replacement with mechanical valve Anticoagulation Episode Summary Current INR goal: 2.5-3.5 Assessment: INR result of 2.5 is therapeutic Plan: Current Warfarin Dosing As of 02/16/2024 Full warfarin instructions: 12.5 mg every Mon, Wed, Fri; 10 mg all other days Sent [employer] message Advised patient to continue current weekly dose as noted above Next lab INR check scheduled on 03/15/2024 Patient advised to call the PAC with any medication changes, bleeding/bruising concerns, recent changes in vitamin k consumption, if any procedures are coming up, if they have been ill or in the hospital, and if they have missed any doses of warfarin. Harini Cesar RPh Clinical Pharmacist, Pharmacy Anticoagulation Clinic Pharmacy Anticoagulation Clinic Pager: [phone]. documented in this encounterPromedica [facility]10-14-[facility]24 Telephone encounter Note * Telephone Encounter - Kirstin Robb MA - 02/14/2024 8:18 AM EDT Patient phones requesting refills as follows: Appt 04/25 Requested Prescriptions Pending Prescriptions Disp Refills pantoprazole DR (PROTONIX) 40 mg tablet 90 tablet 1 Sig: Take 1 tablet by mouth once daily. On empty stomach at least 30 minutes before eating. Please review and advise. Kirstin Robb MA [facility]10-14-2024 Miscellaneous Notes* Telephone Encounter - Kirstin Robb MA - 02/14/2024 8:18 AM EDT Patient phones requesting refills as follows: Appt 04/25 Requested Prescriptions Pending Prescriptions Disp Refills pantoprazole DR (PROTONIX) 40 mg tablet 90 tablet 1 Sig: Take 1 tablet by mouth once daily. On empty stomach at least 30 minutes before eating. Please review and advise. Kirstin Robb MA documented in this encounterPromedica [facility]09-18-2024 Telephone encounter Note * Telephone Encounter - Harini Cesar [facility] - 01/19/2024 8:26 AM EDT [facility] Ambulatory Pharmacy Anticoagulation Clinic Anticoagulation Episode Summary Anticoagulation Care Providers Provider Role Specialty Phone number Saurav Bob MD Referring Internal Medicine [phone] Georgie Elizabeth is a 53 year old year old male patient being evaluated today for a Telemanagement visit. Patient is currently on the following anticoagulant(s) Warfarin. Labs PT INR (no units) Date Value 10/04/2023 2.0 07/11/2023 2.8 johanna per pt 01/26/2023 4.8 (self-reporting) INR Home CoaguChek (no units) Date Value 01/18/2024 2.7 12/28/2023 2.6 12/21/2023 4.4 Hemoglobin (g/dL) Date Value 08/03/2023 14.8 08/05/2015 14.6 Hematocrit (%) Date Value 08/03/2023 44.8 08/05/2015 43.7 Platelet Count (k/uL) Date Value 08/03/2023 281 08/05/2015 327 Creatinine (mg/dL) Date Value 08/03/2023 0.85 04/22/2023 0.87 08/19/2022 0.94 08/05/2015 1.09 08/05/2015 1.03 02/17/2015 0.99 Bilirubin, Total (mg/dL) Date Value 08/03/2023 1.3 08/05/2015 0.8 ALT (U/L) Date Value 08/03/2023 26 08/05/2015 34 AST (U/L) Date Value 08/03/2023 21 08/05/2015 23 Estimated Creatinine Clearance: 135.9 mL/min (based on SCr of 0.85 mg/dL). ALLERGIES Allergen Reactions Codeine Mental Status Change Sulfa Drugs [Sulfa * Myalgia Indication for Warfarin: Mechanical heart valve present senior care (current) use of anticoagulants History of mitral valve replacement with mechanical valve Anticoagulation Episode Summary Current INR goal: 2.5-3.5 Assessment: INR result of 2.7 is therapeutic Plan: Current Warfarin Dosing As of 01/19/2024 Full warfarin instructions: 12.5 mg every Mon, Wed, Fri; 10 mg all other days Sent [employer] message Advised patient to continue current weekly dose as noted above Next lab INR check scheduled on 02/16/2024 Harini Cesar RPh Clinical Pharmacist, Pharmacy Anticoagulation Clinic Pharmacy Anticoagulation Clinic Pager: [phone]. [facility]09-18-2024 Miscellaneous Notes* Telephone Encounter - Harini Cesar RPh - 01/19/2024 8:26 AM EDT [facility] Ambulatory Pharmacy Anticoagulation Clinic Anticoagulation Episode Summary Anticoagulation Care Providers Provider Role Specialty Phone number Saurav Bob MD Referring Internal Medicine [phone] Georgie Elizabeth is a 53 year old year old male patient being evaluated today for a Telemanagement visit. Patient is currently on the following anticoagulant(s) Warfarin. Labs PT INR (no units) Date Value 10/04/2023 2.0 07/11/2023 2.8 johanna per pt 01/26/2023 4.8 (self-reporting) INR Home CoaguChek (no units) Date Value 01/18/2024 2.7 12/28/2023 2.6 12/21/2023 4.4 Hemoglobin (g/dL) Date Value 08/03/2023 14.8 08/05/2015 14.6 Hematocrit (%) Date Value 08/03/2023 44.8 08/05/2015 43.7 Platelet Count (k/uL) Date Value 08/03/2023 281 08/05/2015 327 Creatinine (mg/dL) Date Value 08/03/2023 0.85 04/22/2023 0.87 08/19/2022 0.94 08/05/2015 1.09 08/05/2015 1.03 02/17/2015 0.99 Bilirubin, Total (mg/dL) Date Value 08/03/2023 1.3 08/05/2015 0.8 ALT (U/L) Date Value 08/03/2023 26 08/05/2015 34 AST (U/L) Date Value 08/03/2023 21 08/05/2015 23 Estimated Creatinine Clearance: 135.9 mL/min (based on SCr of 0.85 mg/dL). ALLERGIES Allergen Reactions Codeine Mental Status Change Sulfa Drugs [Sulfa * Myalgia Indication for Warfarin: Mechanical heart valve present senior care (current) use of anticoagulants History of mitral valve replacement with mechanical valve Anticoagulation Episode Summary Current INR goal: 2.5-3.5 Assessment: INR result of 2.7 is therapeutic Plan: Current Warfarin Dosing As of 01/19/2024 Full warfarin instructions: 12.5 mg every Mon, Wed, Fri; 10 mg all other days Sent [employer] message Advised patient to continue current weekly dose as noted above Next lab INR check scheduled on 02/16/2024 Harini Cesar RPh Clinical Pharmacist, Pharmacy Anticoagulation Clinic Pharmacy Anticoagulation Clinic Pager: [phone]. documented in this encounterPromedica [facility]08-27-2024 Telephone encounter Note * Telephone Encounter - Pushpa Salguero RPh - 12/28/2023 3:24 PM EDT [facility] Ambulatory Pharmacy Anticoagulation Clinic Anticoagulation Episode Summary Anticoagulation Care Providers Provider Role Specialty Phone number Saurav Bob MD Referring Internal Medicine [phone] Georgie Elizabeth is a 53 year old year old male patient being evaluated today for a Telemanagement visit. Patient is currently on the following anticoagulant(s) Warfarin. Labs PT INR (no units) Date Value 10/04/2023 2.0 07/11/2023 2.8 johanna per pt 01/26/2023 4.8 (self-reporting) INR Home CoaguChek (no units) Date Value 12/28/2023 2.6 12/21/2023 4.4 12/14/2023 2.1 Hemoglobin (g/dL) Date Value 08/03/2023 14.8 08/05/2015 14.6 Hematocrit (%) Date Value 08/03/2023 44.8 08/05/2015 43.7 Platelet Count (k/uL) Date Value 08/03/2023 281 08/05/2015 327 Creatinine (mg/dL) Date Value 08/03/2023 0.85 04/22/2023 0.87 08/19/2022 0.94 08/05/2015 1.09 08/05/2015 1.03 02/17/2015 0.99 Bilirubin, Total (mg/dL) Date Value 08/03/2023 1.3 08/05/2015 0.8 ALT (U/L) Date Value 08/03/2023 26 08/05/2015 34 AST (U/L) Date Value 08/03/2023 21 08/05/2015 23 Estimated Creatinine Clearance: 135.9 mL/min (based on SCr of 0.85 mg/dL). ALLERGIES Allergen Reactions Codeine Mental Status Change Sulfa Drugs [Sulfa * Myalgia Indication for Warfarin: Mechanical heart valve present 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 History of mitral valve replacement with mechanical valve Anticoagulation Episode Summary Current INR goal: 2.5-3.5 Assessment: INR result of 2.6 is therapeutic Plan: Current Warfarin Dosing As of 12/28/2023 Full warfarin instructions: 12.5 mg every Mon, Wed, Fri; 10 mg all other days Sent [employer] message Advised patient to continue current weekly dose as noted above Next home INR check scheduled on 01/11/2024 Patient verbalizes understanding of the plan. Patient denies need for refills. Pushpa Salguero RPh Clinical Pharmacist, Pharmacy Anticoagulation Clinic Pharmacy Anticoagulation Clinic Pager: [phone]. [facility]08-27-2024 Miscellaneous Notes* Telephone Encounter - Pushpa Salguero RPh - 12/28/2023 3:24 PM EDT [facility] Ambulatory Pharmacy Anticoagulation Clinic Anticoagulation Episode Summary Anticoagulation Care Providers Provider Role Specialty Phone number Saurav Bob MD Referring Internal Medicine [phone] Georgie Elizabeth is a 53 year old year old male patient being evaluated today for a Telemanagement visit. Patient is currently on the following anticoagulant(s) Warfarin. Labs PT INR (no units) Date Value 10/04/2023 2.0 07/11/2023 2.8 johanna per pt 01/26/2023 4.8 (self-reporting) INR Home CoaguChek (no units) Date Value 12/28/2023 2.6 12/21/2023 4.4 12/14/2023 2.1 Hemoglobin (g/dL) Date Value 08/03/2023 14.8 08/05/2015 14.6 Hematocrit (%) Date Value 08/03/2023 44.8 08/05/2015 43.7 Platelet Count (k/uL) Date Value 08/03/2023 281 08/05/2015 327 Creatinine (mg/dL) Date Value 08/03/2023 0.85 04/22/2023 0.87 08/19/2022 0.94 08/05/2015 1.09 08/05/2015 1.03 02/17/2015 0.99 Bilirubin, Total (mg/dL) Date Value 08/03/2023 1.3 08/05/2015 0.8 ALT (U/L) Date Value 08/03/2023 26 08/05/2015 34 AST (U/L) Date Value 08/03/2023 21 08/05/2015 23 Estimated Creatinine Clearance: 135.9 mL/min (based on SCr of 0.85 mg/dL). ALLERGIES Allergen Reactions Codeine Mental Status Change Sulfa Drugs [Sulfa * Myalgia Indication for Warfarin: Mechanical heart valve present senior care (current) use of anticoagulants History of mitral valve replacement with mechanical valve Anticoagulation Episode Summary Current INR goal: 2.5-3.5 Assessment: INR result of 2.6 is therapeutic Plan: Current Warfarin Dosing As of 12/28/2023 Full warfarin instructions: 12.5 mg every Mon, Wed, Fri; 10 mg all other days Sent [employer] message Advised patient to continue current weekly dose as noted above Next home INR check scheduled on 01/11/2024 Patient verbalizes understanding of the plan. Patient denies need for refills. Pushpa Salguero RPh Clinical Pharmacist, Pharmacy Anticoagulation Clinic Pharmacy Anticoagulation Clinic Pager: [phone]. documented in this encounterPromedica Def[facility]08-21-2024 NoteHNO ID: [id number] Author: JANE CARCAMO PT Service: ? Author Type: Physical Therapist Type: Progress Notes Filed: 12/22/2023 16:33 Note Text: [facility] DME ISSUE NOTE Patient identified by name and date: Yes Subjective: Georgie Elizabeth is a 53 year old male seen today for fitting and pickle sorter of custom foot orthotics. Equipment Owned: none DME Delivery: Pt was educated on wear schedule and care of custom foot orthotics. Pt was educated on the option of having orthotics refurbished as needed in the future as long as shell is performing it's intended function well. Pt was educated on approximate cost of refurbishing orthotics and an approximate time frame when this might be necessary. Pt was urged to follow the wear schedule and to call with any questions or concerns. Pt was instructed to start with wearing orthotics one hour the first day and then to add one hour of wear time per day until signal timer wear is achieved. Pt was educated on how to remove insoles from shoes and then place orthotics in shoes. The fit of orthotics was assessed with pt standing, with and without shoes. The comfort of orthotics was assessed with pt standing and walking with orthotics in shoes. Pt denied any rubbing or pinching and felt that fit of custom orthotics was correct. Contact information for this therapist was provided to patient. Custom biomechanical foot orthotics with serial number: #[id number] were issued to patient and proof of receipt form signed by pt and therapist. All specifications for custom foot orthotics can be found in orthotic evaluation visit note. Planned Interventions: Follow up as needed for brace fitting/issues. Billing:[facility]: Orthotics Management and Training ([id number]): 1:1 time: 20 minutes (1 unit: 8-22 mins) Equipment: [id number] x2 pair of custom foot orthotics Total time: 20 minutes [facility] History of Present illness Narrative* Jane Carcamo PT - 12/22/2023 4:30 PM EDT [facility] DME ISSUE NOTE Patient identified by name and date: Yes Subjective: Georgie Elizabeth is a 53 year old male seen today for fitting and pickle sorter of custom footorthotics. Equipment Owned: none DME Delivery: Pt was educated on wear schedule and care of custom foot orthotics. Pt was educated on the option of having orthotics refurbished as needed in the future as long as shell is performing it's intended function well. Pt was educated on approximate cost of refurbishing orthotics and an approximate timeframe when this might be necessary. Pt was urged to follow the wear schedule and to call with any questions or concerns. Pt was instructed to start with wearing orthotics one hour the first day and then to add one hour of wear time per day until signal timer wear is achieved. Pt was educated on how toremove insoles from shoes and then place orthotics in shoes. The fit of orthotics was assessed with pt standing, with and without shoes. The comfort of orthotics was assessed with pt standing and walking with orthotics in shoes. Pt denied any rubbing or pinching and felt that fit of custom orthotics was correct. Contact information for this therapist was provided to patient. Custom biomechanical foot orthotics with serial number: #[id number] were issued to patient and proof of receipt form signed by pt and therapist. All specifications for custom foot orthotics can be foundin orthotic evaluation visit note. Planned Interventions: Follow up as needed for brace fitting/issues. Billing:[facility]: Orthotics Management and Training ([id number]): 1:1 time: 20 minutes (1 unit: 8-22 mins) Equipment: [id number] x2 pair of custom foot orthotics Total time: 20 minutes Jane Carcamo PT documented in this encounterProm[facility] Telephone encounter Note * Telephone Encounter - Aly Jiménez RPh - 12/21/2023 4:44 PM EDT [facility] Anticoagulation Episode Summary Anticoagulation Care Providers Provider Role Specialty Phone number Saurav Bob MD Referring Internal Medicine [phone] Georgie Elizabeth is a 53 year old year old male patient being evaluated today for a Telemanagement visit. Patient is currently on the following anticoagulant(s) Warfarin. Labs PT INR (no units) Date Value 10/04/2023 2.0 07/11/2023 2.8 johanna per pt 01/26/2023 4.8 (self-reporting) INR Home CoaguChek (no units) Date Value 12/21/2023 4.4 12/14/2023 2.1 11/30/2023 2.5 Hemoglobin (g/dL) Date Value 08/03/2023 14.8 08/05/2015 14.6 Hematocrit (%) Date Value 08/03/2023 44.8 08/05/2015 43.7 Platelet Count (k/uL) Date Value 08/03/2023 281 08/05/2015 327 Creatinine (mg/dL) Date Value 08/03/2023 0.85 04/22/2023 0.87 08/19/2022 0.94 08/05/2015 1.09 08/05/2015 1.03 02/17/2015 0.99 Bilirubin, Total (mg/dL) Date Value 08/03/2023 1.3 08/05/2015 0.8 ALT (U/L) Date Value 08/03/2023 26 08/05/2015 34 AST (U/L) Date Value 08/03/2023 21 08/05/2015 23 Estimated Creatinine Clearance: 135.9 mL/min (based on SCr of 0.85 mg/dL). ALLERGIES Allergen Reactions Codeine Mental Status Change Sulfa Drugs [Sulfa * Myalgia Indication for Warfarin: Anticoagulation Episode Summary Current INR goal: 2.5-3.5 Assessment: INR result of 4.4 is SUPRAtherapeutic due to: No obvious cause (patient denies medication change, grapefruit/cranberry/pomegranate/pepito ingestion, OTC medication use, change in herbal/nutritional supplement, accidental overdosage, change in warfarin tablet shape or color, change in vit K consumption, recent illness (NVD, fever), any changes to general health, changes in tobacco use, or EtOH consumption) Plan: Current Warfarin Dosing As of 12/21/2023 Full warfarin instructions: 12/20: Hold; Otherwise 12.5 mg every Mon, Wed, Fri; 10 mg all other days Called and spoke to patient/caregiver Advised patient to hold 1 dose then continue current regimen Next home INR check scheduled on 12/28/2023 Patient verbalizes understanding of the plan. Aly Jiménez RPh Clinical Pharmacist, Pharmacy Anticoagulation Clinic Pharmacy An[facility] Pager: [phone]. [facility]08[facility] Miscellaneous Notes* Telephone Encounter - Aly Jiménez RPh - 12/21/2023 4:44 PM EDT [facility] Anticoagulation Episode Summary Anticoagulation Care Providers Provider Role Specialty Phone number Saurav Bob MD Referring Internal Medicine [phone] Georgie Elizabeth is a 53 year old year old male patient being evaluated today for a Telemanagement visit. Patient is currently on the following anticoagulant(s) Warfarin. Labs PT INR (no units) Date Value 10/04/2023 2.0 07/11/2023 2.8 johanna per pt 01/26/2023 4.8 (self-reporting) INR Home CoaguChek (no units) Date Value 12/21/2023 4.4 12/14/2023 2.1 11/30/2023 2.5 Hemoglobin (g/dL) Date Value 08/03/2023 14.8 08/05/2015 14.6 Hematocrit (%) Date Value 08/03/2023 44.8 08/05/2015 43.7 Platelet Count (k/uL) Date Value 08/03/2023 281 08/05/2015 327 Creatinine (mg/dL) Date Value 08/03/2023 0.85 04/22/2023 0.87 08/19/2022 0.94 08/05/2015 1.09 08/05/2015 1.03 02/17/2015 0.99 Bilirubin, Total (mg/dL) Date Value 08/03/2023 1.3 08/05/2015 0.8 ALT (U/L) Date Value 08/03/2023 26 08/05/2015 34 AST (U/L) Date Value 08/03/2023 21 08/05/2015 23 Estimated Creatinine Clearance: 135.9 mL/min (based on SCr of 0.85 mg/dL). ALLERGIES Allergen Reactions Codeine Mental Status Change Sulfa Drugs [Sulfa * Myalgia Indication for Warfarin: Anticoagulation Episode Summary Current INR goal: 2.5-3.5 Assessment: INR result of 4.4 is SUPRAtherapeutic due to: No obvious cause (patient denies medication change, grapefruit/cranberry/pomegranate/pepito ingestion, OTC medication use, change in herbal/nutritional supplement, accidental overdosage, change in warfarin tablet shape or color, change in vit K consumption, recent illness (NVD, fever), any changes to general health, changes in tobacco use, or EtOH consumption) Plan: Current Warfarin Dosing As of 12/21/2023 Full warfarin instructions: 12/20: Hold; Otherwise 12.5 mg every Mon, Wed, Fri; 10 mg all other days Called and spoke to patient/caregiver Advised patient to hold 1 dose then continue current regimen Next home INR check scheduled on 12/28/2023 Patient verbalizes understanding of the plan. Aly Jiménez RPh Clinical Pharmacist, Pharmacy Anticoagulation Clinic Pharmacy Anticoagulation Clinic Pager: [phone]. documented in this encounterProm[facility]08-[facility] Telephone encounter Note * Telephone Encounter - Aly Jiménez RPh - 12/14/2023 4:09 PM EDT [facility] Anticoagulation Episode Summary Anticoagulation Care Providers Provider Role Specialty Phone number Saurav Bob MD Referring Internal Medicine [phone] Georgie Elizabeth is a 53 year old year old male patient being evaluated today for a Telemanagement visit. Patient is currently on the following anticoagulant(s) Warfarin. Labs PT INR (no units) Date Value 10/04/2023 2.0 07/11/2023 2.8 johanna per pt 01/26/2023 4.8 (self-reporting) INR Home CoaguChek (no units) Date Value 12/14/2023 2.1 11/30/2023 2.5 11/23/2023 2.9 Hemoglobin (g/dL) Date Value 08/03/2023 14.8 08/05/2015 14.6 Hematocrit (%) Date Value 08/03/2023 44.8 08/05/2015 43.7 Platelet Count (k/uL) Date Value 08/03/2023 281 08/05/2015 327 Creatinine (mg/dL) Date Value 08/03/2023 0.85 04/22/2023 0.87 08/19/2022 0.94 08/05/2015 1.09 08/05/2015 1.03 02/17/2015 0.99 Bilirubin, Total (mg/dL) Date Value 08/03/2023 1.3 08/05/2015 0.8 ALT (U/L) Date Value 08/03/2023 26 08/05/2015 34 AST (U/L) Date Value 08/03/2023 21 08/05/2015 23 Estimated Creatinine Clearance: 135.9 mL/min (based on SCr of 0.85 mg/dL). ALLERGIES Allergen Reactions Codeine Mental Status Change Sulfa Drugs [Sulfa * Myalgia Indication for Warfarin: Anticoagulation Episode Summary Current INR goal: 2.5-3.5 Assessment: INR result of 2.1 is SUBtherapeutic due to: No obvious cause (patient denies liver, green tea, new herbal/nutritional supplements - such as Boost, Ensure, an increase in vit K foods and/or V8 type juices, any changes in warfarin tablet, or missed doses) Plan: Current Warfarin Dosing As of 12/14/2023 Full warfarin instructions: 12/13: 15 mg; Otherwise 12.5 mg every Mon, Wed, Fri; 10 mg all other days Called and spoke to patient/caregiver Advised patient to increase dose for 1 day and increase total weekly regimen Next home INR check scheduled on 12/21/2023 Patient verbalizes understanding of the plan. Aly Jiménez RPh Clinical Pharmacist, Pharmacy Anticoagulation Clinic Pharmacy Anticoagulation Clinic Pager: [phone]. [facility]08[facility] Miscellaneous Notes* Telephone Encounter - Aly Jiménez RPh - 12/14/2023 4:09 PM EDT [facility] Anticoagulation Episode Summary Anticoagulation Care Providers Provider Role Specialty Phone number Saurav Bob MD Referring Internal Medicine [phone] Georgie Elizabeth is a 53 year old year old male patient being evaluated today for a Telemanagement visit. Patient is currently on the following anticoagulant(s) Warfarin. Labs PT INR (no units) Date Value 10/04/2023 2.0 07/11/2023 2.8 johanna per pt 01/26/2023 4.8 (self-reporting) INR Home CoaguChek (no units) Date Value 12/14/2023 2.1 11/30/2023 2.5 11/23/2023 2.9 Hemoglobin (g/dL) Date Value 08/03/2023 14.8 08/05/2015 14.6 Hematocrit (%) Date Value 08/03/2023 44.8 08/05/2015 43.7 Platelet Count (k/uL) Date Value 08/03/2023 281 08/05/2015 327 Creatinine (mg/dL) Date Value 08/03/2023 0.85 04/22/2023 0.87 08/19/2022 0.94 08/05/2015 1.09 08/05/2015 1.03 02/17/2015 0.99 Bilirubin, Total (mg/dL) Date Value 08/03/2023 1.3 08/05/2015 0.8 ALT (U/L) Date Value 08/03/2023 26 08/05/2015 34 AST (U/L) Date Value 08/03/2023 21 08/05/2015 23 Estimated Creatinine Clearance: 135.9 mL/min (based on SCr of 0.85 mg/dL). ALLERGIES Allergen Reactions Codeine Mental Status Change Sulfa Drugs [Sulfa * Myalgia Indication for Warfarin: Anticoagulation Episode Summary Current INR goal: 2.5-3.5 Assessment: INR result of 2.1 is SUBtherapeutic due to: No obvious cause (patient denies liver, green tea, new herbal/nutritional supplements - such as Boost, Ensure, an increase in vit K foods and/or V8 type juices, any changes in warfarin tablet, or missed doses) Plan: Current Warfarin Dosing As of 12/14/2023 Full warfarin instructions: 12/13: 15 mg; Otherwise 12.5 mg every Mon, Wed, Fri; 10 mg all other days Called and spoke to patient/caregiver Advised patient to increase dose for 1 day and increase total weekly regimen Next home INR check scheduled on 12/21/2023 Patient verbalizes understanding of the plan. Aly Jiménez RPh Clinical Pharmacist, Pharmacy Anticoagulation Clinic Pharmacy Anticoagulation Clinic Pager: [phone]. documented in this encounterPromed[facility]07-[facility] Telephone encounter Note * Telephone Encounter - Aly Jiménez RPh - 11/30/2023 4:55 PM EDT [facility] Anticoagulation Episode Summary Anticoagulation Care Providers Provider Role Specialty Phone number Saurav Bob MD Referring Internal Medicine [phone] Georgie Elizabeth is a 53 year old year old male patient being evaluated today for a Telemanagement visit. Patient is currently on the following anticoagulant(s) Warfarin. Labs PT INR (no units) Date Value 10/04/2023 2.0 07/11/2023 2.8 johanna per pt 01/26/2023 4.8 (self-reporting) INR Home CoaguChek (no units) Date Value 11/23/2023 2.9 11/09/2023 3.8 11/02/2023 2.0 Hemoglobin (g/dL) Date Value 08/03/2023 14.8 08/05/2015 14.6 Hematocrit (%) Date Value 08/03/2023 44.8 08/05/2015 43.7 Platelet Count (k/uL) Date Value 08/03/2023 281 08/05/2015 327 Creatinine (mg/dL) Date Value 08/03/2023 0.85 04/22/2023 0.87 08/19/2022 0.94 08/05/2015 1.09 08/05/2015 1.03 02/17/2015 0.99 Bilirubin, Total (mg/dL) Date Value 08/03/2023 1.3 08/05/2015 0.8 ALT (U/L) Date Value 08/03/2023 26 08/05/2015 34 AST (U/L) Date Value 08/03/2023 21 08/05/2015 23 Estimated Creatinine Clearance: 135.9 mL/min (based on SCr of 0.85 mg/dL). ALLERGIES Allergen Reactions Codeine Mental Status Change Sulfa Drugs [Sulfa * Myalgia Indication for Warfarin: Anticoagulation Episode Summary Current INR goal: 2.5-3.5 Assessment: INR result of 2.5 is therapeutic Plan: Current Warfarin Dosing As of 11/30/2023 Full warfarin instructions: 12.5 mg every Tue, Fri; 10 mg all other days Called and spoke to patient/caregiver Advised patient to continue current weekly dose as noted above Next home INR check scheduled on 12/14/2023 Patient verbalizes understanding of the plan. Aly Jiménez RPh Clinical Pharmacist, Pharmacy Anticoagulation Clinic Pharmacy Anticoagulation Clinic Pager: [phone]. [facility]07[facility] Miscellaneous Notes* Telephone Encounter - Aly Jiménez RPh - 11/30/2023 4:55 PM EDT [facility] Anticoagulation Episode Summary Anticoagulation Care Providers Provider Role Specialty Phone number Saurav Bob MD Referring Internal Medicine [phone] Georgie Elizabeth is a 53 year old year old male patient being evaluated today for a Telemanagement visit. Patient is currently on the following anticoagulant(s) Warfarin. Labs PT INR (no units) Date Value 10/04/2023 2.0 07/11/2023 2.8 johanna per pt 01/26/2023 4.8 (self-reporting) INR Home CoaguChek (no units) Date Value 11/23/2023 2.9 11/09/2023 3.8 11/02/2023 2.0 Hemoglobin (g/dL) Date Value 08/03/2023 14.8 08/05/2015 14.6 Hematocrit (%) Date Value 08/03/2023 44.8 08/05/2015 43.7 Platelet Count (k/uL) Date Value 08/03/2023 281 08/05/2015 327 Creatinine (mg/dL) Date Value 08/03/2023 0.85 04/22/2023 0.87 08/19/2022 0.94 08/05/2015 1.09 08/05/2015 1.03 02/17/2015 0.99 Bilirubin, Total (mg/dL) Date Value 08/03/2023 1.3 08/05/2015 0.8 ALT (U/L) Date Value 08/03/2023 26 08/05/2015 34 AST (U/L) Date Value 08/03/2023 21 08/05/2015 23 Estimated Creatinine Clearance: 135.9 mL/min (based on SCr of 0.85 mg/dL). ALLERGIES Allergen Reactions Codeine Mental Status Change Sulfa Drugs [Sulfa * Myalgia Indication for Warfarin: Anticoagulation Episode Summary Current INR goal: 2.5-3.5 Assessment: INR result of 2.5 is therapeutic Plan: Current Warfarin Dosing As of 11/30/2023 Full warfarin instructions: 12.5 mg every e, Fri; 10 mg all other days Called and spoke to patient/caregiver Advised patient to continue current weekly dose as noted above Next home INR check scheduled on 12/14/2023 Patient verbalizes understanding of the plan. Aly Jiménez RPh Clinical Pharmacist, Pharmacy Anticoagulation Clinic Pharmacy Anticoagulation Clinic Pager: [phone]. * Telephone Encounter - Shiv LantiguaC[employer]worx Piping DesignerNilda Jay - 11/30/2023 4:46 PM EDT PATIENT CALL Patient called call center regarding results. Patient called and stated INR result for 11/29 is 2.5 (not currently/yet showing in INR summary below). Patient can be reached at [phone] to discuss. PT INR (no units) Date Value 10/04/2023 2.0 07/11/2023 2.8 johanna per pt 01/26/2023 4.8 (self-reporting) INR Home CoaguChek (no units) Date Value 11/23/2023 2.9 11/09/2023 3.8 11/02/2023 2.0 Nilda Parham ([employer]) documented in this encounterPromedica [facility]07-30-[facility] Telephone encounter Note * Telephone Encounter - Shiv Lantig[employer])Nilda - 11/30/2023 4:46 PM EDT PATIENT CALL Patient called call center regarding results. Patient called and stated INR result for 11/29 is 2.5 (not currently/yet showing in INR summary below). Patient can be reached at [phone] to discuss. PT INR (no units) Date Value 10/04/2023 2.0 07/11/2023 2.8 johanna per pt 01/26/2023 4.8 (self-reporting) INR Home CoaguChek (no units) Date Value 11/23/2023 2.9 11/09/2023 3.8 11/02/2023 2.0 Nilda Parham ([employer]) [facility]07-[facility]24 NoteHNO ID: [id number] Author: JANE CARCAMO, PT Service: ? 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 He presents with impairments in balance, gait, overall function, and symptom management. PROMIS? (Patient-Reported Outcomes Measurement Information System) scores were reviewed and identified as within normal limits. Prognosis for therapy is Excellent due to: current objective clinical presentation, within-session changes, good support system/ coping skills, good overall health status. He will benefit from skilled therapy services to meet the goals established for this plan of care as noted below. Goals for Episode of Care: created on 11/25/23 through 12/30/23 Pt will be educated on proper wear schedule and care of custom biomechanical foot orthotics Pt will be provided with custom biomechanical B foot orthotics that improve foot and ankle biomechanics as intended with proper fit and function. Patient Goals: decrease pain and stay active Planned Interventions, Frequency, and Duration: Current Frequency: 1 visit Duration: 1 visit Total Number of Visits Planned: 2 (1 evaluation visit and 1 visit for fitting and pickle sorter) Planned Treatment Interventions: Orthosis / DME, Patient/Family/Caregiver Education, Self-intermediate management (06114), Gait Training ([id number]), Body Mechanics Training PLAN FOR NEXT VISIT: Fitting and pickle sorter of custom foot orthotics Patient demonstrates good understanding of plan of care and treatment. The above goals and plan of care were discussed and agreed upon by patient/family. SUBJECTIVE: Pt reports intermittent pain in B feet, especially medial aspect. He reports develping callus at medial aspect of L great toe that needs debrided. He reports that L is worse than R. He reports that the orthotics he received previously helped slightly but did not relieve his symptoms completely. Pt attributes his low back pain to his feet. 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 5 points is clinically meaningfully difference Percentiles provide an indication of how the patient's score ranks in relation to the general population. Higher percentile rankings indicate better function/quality of life. 50th percentile is the average of the general population and indicates half of respondents had a worse score. OBJECTIVE MEASURES WITH LEVEL OF FUNCTION: Posture / Alignment R LE Anatomical Alignment Weight-Bearing: R Pes planus, R Low arch height L LE Anatomical Alignment Weight-Bearing: L Pes planus, L Low arch height R LE Anatomical Alignment Non Weight-Bearing: R Average arch height L LE Anatomical Alignment Non Weight-Bearing: L Pes planus, L Low arch height Gait Gait Observation: normal Plantar Callus Pattern: Right:none Left:medial aspect of great toe has significant callus Supine: ROM: Ankle Dorsiflexion: Right: AROM:-2 degrees Ankle Dorsiflexion: Left: AROM -2 degrees Calcaneal eversion: Right: WNL Left: WNL Hallux dorsiflexion: Open chain right: >60 left: >60 Alignment: Rest: Medial arch appearance: Right: Low Left:Low (much worse than R) Equinus: Right:forefoot Left:forefoot Prone Subtalar Neutral Alignment: Right: Rearfoot:0 degrees Forefoot:6 degrees varus Left: Rearfoot:0 degrees Forefoot:8 degrees varus First Ray Position: Right: pf Left: pf First Ray Mobility: Right: flexibile Left:flexibile WEIGHT BEARING: Alignment: R (more content not included)...[facility]07-25-2024 History of Present illness Narrative* aJne Carcamo, PT - 11/25/2023 12:07 PM EDT Episode Visit Count: 1 Therapist That Will Accept/Oversee The Plan Of Care: Jane Carcamo PT Start of Care Date: 11/25/23 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 He presents with impairments in balance, gait, overall function, and symptom management. PROMIS (Patient-Reported Outcomes Measurement Information System) scores were reviewed and identified as within normal limits. Prognosis for therapy is Excellent due to: current objective clinical presentation, within-session changes, good support system/ coping skills, good overall health status. He will benefit from skilled therapy services to meet the goals established for this plan of care as noted below. Goals for Episode of Care: created on 11/25/23 through 12/30/23 Pt will be educated on proper wear schedule and care of custom biomechanical foot orthotics Pt will be provided with custom biomechanical B foot orthotics that improve foot and ankle biomechanics as intended with proper fit and function. Patient Goals: decrease pain and stay active Planned Interventions, Frequency, and Duration: Current Frequency: 1 visit Duration: 1 visit Total Number of Visits Planned: 2 (1 evaluation visit and 1 visit for fitting and pickle sorter) Planned Treatment Interventions: Orthosis / DME, Patient/Family/Caregiver Education, Self-care homemanagement (35496), Gait Training ([id number]), Body Mechanics Training PLAN FOR NEXT VISIT: Fitting and pickle sorter of custom foot orthotics Patient demonstrates good understanding of plan of care and treatment. The above goals and plan of care were discussed and agreed upon by patient/family. SUBJECTIVE: Pt reports intermittent pain in B feet, especially medial aspect. He reports develping callus at medial aspect of L great toe that needs debrided. He reports that L is worse than R. He reports that the orthotics he received previously helped slightly but did not relieve his symptoms completely. Pt attributes his low back pain to his feet. 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 5 points is clinically meaningfully difference Percentiles provide an indication of how the patient's score ranks in relation to the general population. Higher percentile rankings indicate better function/quality of life. 50th percentile is the average of the general population and indicates half of respondents had a worse score. OBJECTIVE MEASURES WITH LEVEL OF FUNCTION: Posture / Alignment R LE Anatomical Alignment Weight-Bearing: R Pes planus, R Low arch height L LE Anatomical Alignment Weight-Bearing: L Pes planus, L Low arch height R LE Anatomical Alignment Non Weight-Bearing: R Average arch height L LE Anatomical Alignment Non Weight-Bearing: L Pes planus, L Low arch height Gait Gait Observation: normal Plantar Callus Pattern: Right:none Left:medial aspect of great toe has significant callus Supine: ROM: Ankle Dorsiflexion: Right: AROM:-2 degrees Ankle Dorsiflexion: Left: AROM -2 degrees Calcaneal eversion: Right: WNL Left: WNL Hallux dorsiflexion: Open chain right: >60 left: >60 Alignment: Rest: Medial arch appearance: Right: Low Left:Low (much worse than R) Equinus: Right:forefoot Left:forefoot Prone Subtalar Neutral Alignment: Right: Rearfoot:0 degrees Forefoot:6 degrees varus Left: Rearfoot:0 degrees Forefoot:8 degrees varus First Ray Position: Right: pf Left: pf First Ray Mobility: Right: flexibile Left:flexibile WEIGHT BEARING: Alignment: Rest: Medial arch appearance: Right: Low Left Low Calcaneal stance position: Right: everted Left everted Knee position: Right: Straight Left Straight Subtalar Neutral: Medial arch appearance: Right Average Left:Low Calcaneal stance position: Right: everted Left: rectus Forefoot position: Right: off ground Left: off ground Knee position: Right: straight Left straight Mobility: Hallux dorsiflexion Closed chain: Right: >9 Left none Midtarsal Mobility: (navicular drop) Right: hyper >8mm Left:hyper >8mm Rearfoot excursion: Right:>6 hyper Left: >6 hyper FUNCTIONAL EVALUATION: Balance(SL): ability/quality Right: increased pronation and unsteady Left: increased pronation and unsteady Balance Test: *Right: SL Balance was Improved performance with: 6 degree forefoot 2 degree rearfoot wedges *Left: SL Balance was Improved performance with: 4 degree forefoot 0 degree rearfoot wedges Gait Assessment: Walking: normal Running: n/a Orthotic Design Request Shoe size: 15. Weight: 235 pounds. Plate Type: Functional Orthotic (shell): Sport Carboplast II Graphite: 2.5 mm Shell Rigidity: Semi-Rigid Plate Specifications: Heel Cup Depth Standard - 12mm, Shell Width Standard Posting: right: 3 degrees for forefoot 3 degrees intrinsic and 2 degrees for rearfoot 2 degrees extrinsic left: 4 degrees for forefoot 4 degrees extrinsic and 0 degrees for rearfoot To vertical Additions: none Padding: Type: Soft Thickness:1/8 Padding Length:heels to toes Accommodations: none Top Covers: Material: Leatherette - Verner Black Length:to toes Classification of foot type: Compensated forefoot varus and Pes Planus Education: Education Learning Preferences: Demonstration, Explanation, Performance, Printed Materials Barriers: None Learning/educational needs: Procedure / Surgery, Plan of Care, Brace Fit, Gait Training, Body Mechanics, Lifestyle changes Education Provided: Yes, see treatment interventions for education provided Education Provided To: Patient Education Mode/Type: Demonstration, Explanation/Discussion, Literature/Printed Materials, Performance Response to Education/Teach Back: States/Identifies, Requires Review/Additional Education TREATMENT: PT Treatment Interventions: Orthotic Mgmt/Train (Initial) Evaluation Orthotics Management and Training: A thorough and complete biomechanical assessment completed and all results explained to pt in detail. Pt. was educated on the anatomy of affected area, possible source of symptoms and rationale for proposed treatment plan. A variety of different sized wedges were used as trials for posting at both forefoot and rearfoot. Pt ability with single leg stance and single leg squats was tested without wedges and compared to each trial with different size wedges. Once stability was achieved and biomechanics improved, wedge size recorded for future posting prescription. With patient prone, subtalar neutral position digital scans were made of bilateral feet. These scans and and all supporting documentation was prepared for shipment to lab so that custom foot orthotics can be fabricated. Pt was educated on proper fitting shoes to be used with custom foot orthotics. R ecommendations were made on brands of shoes that are well constructed and provide appropriate support. Pt was advised to select neutral shoes to pair with the custom foot orthotics despite patient's foot structure. Pt was also given recommendations on supportive sandals and where these can be purchased. Pt was educated on the process that we will follow once custom orthotics arrive in this department and all of the patient's questions were answered. Skilled Intervention: Clinical knowledge and skills required for custom orthotic fabrication and wearing schedule Patient/Family/Caregiver Education: Precautions, purpose and use of orthosis Wearing schedule explained in detail. Discussed management of any symptoms related to wearing the orthosis Billing * Evaluation Moderate Complexity: 1 Unit Orthotic Mgmt/Train (Initial) Treatment Minutes: 32 Skilled Treatment Time Minutes (timed and untimed codes): 62 Total Session Time (minutes): 62 Session Start Time : 1135 Session Stop Time : 1237 Jane Carcamo PT documented in this encounterProm[facility] Tele[facility] encounter Note * Telephone Encounter - Aly Jiménez [facility] - 11/23/2023 4:22 PM EDT [facility] Anticoagulation Episode Summary Anticoagulation Care Providers Provider Role Specialty Phone number Saurav Bob MD Referring Internal Medicine [phone] Georgie Elizabeth is a 53 year old year old male patient being evaluated today for a Telemanagement visit. Patient is currently on the following anticoagulant(s) Warfarin. Labs PT INR (no units) Date Value 10/04/2023 2.0 07/11/2023 2.8 johanna per pt 01/26/2023 4.8 (self-reporting) INR Home CoaguChek (no units) Date Value 11/23/2023 2.9 11/09/2023 3.8 11/02/2023 2.0 Hemoglobin (g/dL) Date Value 08/03/2023 14.8 08/05/2015 14.6 Hematocrit (%) Date Value 08/03/2023 44.8 08/05/2015 43.7 Platelet Count (k/uL) Date Value 08/03/2023 281 08/05/2015 327 Creatinine (mg/dL) Date Value 08/03/2023 0.85 04/22/2023 0.87 08/19/2022 0.94 08/05/2015 1.09 08/05/2015 1.03 02/17/2015 0.99 Bilirubin, Total (mg/dL) Date Value 08/03/2023 1.3 08/05/2015 0.8 ALT (U/L) Date Value 08/03/2023 26 08/05/2015 34 AST (U/L) Date Value 08/03/2023 21 08/05/2015 23 Estimated Creatinine Clearance: 135.9 mL/min (based on SCr of 0.85 mg/dL). ALLERGIES Allergen Reactions Codeine Mental Status Change Sulfa Drugs [Sulfa * Myalgia Indication for Warfarin: Anticoagulation Episode Summary Current INR goal: 2.5-3.5 Assessment: INR result of 2.9 is therapeutic Plan: Current Warfarin Dosing As of 11/23/2023 Full warfarin instructions: 12.5 mg every Wed, Wed; 10 mg all other days Called and spoke to patient/caregiver Advised patient to continue current weekly dose as noted above Next home INR check scheduled on 11/30/2023 Patient verbalizes understanding of the plan. Aly Jiménez RPh Clinical Pharmacist, Pharmacy Anticoagulation Clinic Pharmacy [facility] Pager: [phone]. [facility]07[facility] Miscellaneous Notes* Telephone Encounter - Aly Jiménez RPh - 11/23/2023 4:22 PM EDT [facility] Anticoagulation Episode Summary Anticoagulation Care Providers Provider Role Specialty Phone number Saurav Bob MD Referring Internal Medicine [phone] Georgie Elizabeth is a 53 year old year old male patient being evaluated today for a Telemanagement visit. Patient is currently on the following anticoagulant(s) Warfarin. Labs PT INR (no units) Date Value 10/04/2023 2.0 07/11/2023 2.8 johanna per pt 01/26/2023 4.8 (self-reporting) INR Home CoaguChek (no units) Date Value 11/23/2023 2.9 11/09/2023 3.8 11/02/2023 2.0 Hemoglobin (g/dL) Date Value 08/03/2023 14.8 08/05/2015 14.6 Hematocrit (%) Date Value 08/03/2023 44.8 08/05/2015 43.7 Platelet Count (k/uL) Date Value 08/03/2023 281 08/05/2015 327 Creatinine (mg/dL) Date Value 08/03/2023 0.85 04/22/2023 0.87 08/19/2022 0.94 08/05/2015 1.09 08/05/2015 1.03 02/17/2015 0.99 Bilirubin, Total (mg/dL) Date Value 08/03/2023 1.3 08/05/2015 0.8 ALT (U/L) Date Value 08/03/2023 26 08/05/2015 34 AST (U/L) Date Value 08/03/2023 21 08/05/2015 23 Estimated Creatinine Clearance: 135.9 mL/min (based on SCr of 0.85 mg/dL). ALLERGIES Allergen Reactions Codeine Mental Status Change Sulfa Drugs [Sulfa * Myalgia Indication for Warfarin: Anticoagulation Episode Summary Current INR goal: 2.5-3.5 Assessment: INR result of 2.9 is therapeutic Plan: Current Warfarin Dosing As of 11/23/2023 Full warfarin instructions: 12.5 mg every e, Fri; 10 mg all other days Called and spoke to patient/caregiver Advised patient to continue current weekly dose as noted above Next home INR check scheduled on 11/30/2023 Patient verbalizes understanding of the plan. Aly Jiménez RPh Clinical Pharmacist, Pharmacy Anticoagulation Clinic Pharmacy Anticoagulation Clinic Pager: [phone]. documented in this encounterPromed[facility]07-[facility] Telephone encounter Note * Telephone Encounter - Aly Jiménez RPh - 11/16/2023 4:44 PM EDT [facility] Anticoagulation Episode Summary Anticoagulation Care Providers Provider Role Specialty Phone number Saurav Bob MD Referring Internal Medicine [phone] Georgie Elizabeth is a 53 year old year old male patient being evaluated today for a Telemanagement visit. Patient is currently on the following anticoagulant(s) Warfarin. Labs PT INR (no units) Date Value 10/04/2023 2.0 07/11/2023 2.8 johanna per pt 01/26/2023 4.8 (self-reporting) INR Home CoaguChek (no units) Date Value 11/09/2023 3.8 11/02/2023 2.0 10/25/2023 4.9 Hemoglobin (g/dL) Date Value 08/03/2023 14.8 08/05/2015 14.6 Hematocrit (%) Date Value 08/03/2023 44.8 08/05/2015 43.7 Platelet Count (k/uL) Date Value 08/03/2023 281 08/05/2015 327 Creatinine (mg/dL) Date Value 08/03/2023 0.85 04/22/2023 0.87 08/19/2022 0.94 08/05/2015 1.09 08/05/2015 1.03 02/17/2015 0.99 Bilirubin, Total (mg/dL) Date Value 08/03/2023 1.3 08/05/2015 0.8 ALT (U/L) Date Value 08/03/2023 26 08/05/2015 34 AST (U/L) Date Value 08/03/2023 21 08/05/2015 23 Estimated Creatinine Clearance: 135.9 mL/min (based on SCr of 0.85 mg/dL). ALLERGIES Allergen Reactions Codeine Mental Status Change Sulfa Drugs [Sulfa * Myalgia Indication for Warfarin: Anticoagulation Episode Summary Current INR goal: 2.5-3.5 Assessment: INR result of 1.6 is SUBtherapeutic due to: No obvious cause (patient denies liver, green tea, new herbal/nutritional supplements - such as Boost, Ensure, an increase in vit K foods and/or V8 type juices, any changes in warfarin tablet, or missed doses) Plan: Current Warfarin Dosing As of 11/16/2023 Full warfarin instructions: 11/15: 22.5 mg; 11/19: 12.5 mg; Otherwise 12.5 mg every Tue, Wed; 10 mg all other days Called and spoke to patient/caregiver Advised patient to take warfarin as noted above Next home INR check scheduled on 11/22/2023 Patient verbalizes understanding of the plan. Aly Jiménez RPh Clinical Pharmacist, Pharmacy Anticoagulation Clinic Pharmacy Antico[facility] Clinic Pager: [phone]. [facility] Miscellaneous Notes* Telephone Encounter - Aly Jiménez RPh - 11/16/2023 4:44 PM EDT [facility] Anticoagulation Episode Summary Anticoagulation Care Providers Provider Role Specialty Phone number BobSaurav banks MD Referring Internal Medicine [phone] Georgie Elizabeth is a 53 year old year old male patient being evaluated today for a Telemanagement visit. Patient is currently on the following anticoagulant(s) Warfarin. Labs PT INR (no units) Date Value 10/04/2023 2.0 07/11/2023 2.8 johanna per pt 01/26/2023 4.8 (self-reporting) INR Home CoaguChek (no units) Date Value 11/09/2023 3.8 11/02/2023 2.0 10/25/2023 4.9 Hemoglobin (g/dL) Date Value 08/03/2023 14.8 08/05/2015 14.6 Hematocrit (%) Date Value 08/03/2023 44.8 08/05/2015 43.7 Platelet Count (k/uL) Date Value 08/03/2023 281 08/05/2015 327 Creatinine (mg/dL) Date Value 08/03/2023 0.85 04/22/2023 0.87 08/19/2022 0.94 08/05/2015 1.09 08/05/2015 1.03 02/17/2015 0.99 Bilirubin, Total (mg/dL) Date Value 08/03/2023 1.3 08/05/2015 0.8 ALT (U/L) Date Value 08/03/2023 26 08/05/2015 34 AST (U/L) Date Value 08/03/2023 21 08/05/2015 23 Estimated Creatinine Clearance: 135.9 mL/min (based on SCr of 0.85 mg/dL). ALLERGIES Allergen Reactions Codeine Mental Status Change Sulfa Drugs [Sulfa * Myalgia Indication for Warfarin: Anticoagulation Episode Summary Current INR goal: 2.5-3.5 Assessment: INR result of 1.6 is SUBtherapeutic due to: No obvious cause (patient denies liver, green tea, new herbal/nutritional supplements - such as Boost, Ensure, an increase in vit K foods and/or V8 type juices, any changes in warfarin tablet, or missed doses) Plan: Current Warfarin Dosing As of 11/16/2023 Full warfarin instructions: 11/15: 22.5 mg; 11/19: 12.5 mg; Otherwise 12.5 mg every Wed, Wed; 10 mg all other days Called and spoke to patient/caregiver Advised patient to take warfarin as noted above Next home INR check scheduled on 11/22/2023 Patient verbalizes understanding of the plan. Aly Jiménez RPh Clinical Pharmacist, Pharmacy Anticoagulation Clinic Pharmacy Anticoagulation Clinic Pager: [phone]. * Telephone Encounter - Shiv ([employer])iNlda - 11/16/2023 4:34 PM EDT PATIENT CALL Patient called call center regarding message/result. Patient called and stated INR result for 11/15 is 1.6 (not currently/yet showing in INR summary below). He also stated he missed yesterday morning's dose of warfarin but took it today when he took today's warfarin. Patient can be reached at [phone] to discuss. PT INR (no units) Date Value 10/04/2023 2.0 07/11/2023 2.8 johanna per pt 01/26/2023 4.8 (self-reporting) INR Home CoaguChek (no units) Date Value 11/09/2023 3.8 11/02/2023 2.0 10/25/2023 4.9 Nilda Parham ([employer]) documented in this encounterPromed[facility]07-[facility] Telephone encounter Note * Telephone Encounter - Shiv Lantig[employer]Nilda Jay - 11/16/2023 4:34 PM EDT PATIENT CALL Patient called call center regarding message/result. Patient called and stated INR result for 11/15 is 1.6 (not currently/yet showing in INR summary below). He also stated he missed yesterday morning's dose of warfarin but took it today when he took today's warfarin. Patient can be reached at [phone] to discuss. PT INR (no units) Date Value 10/04/2023 2.0 07/11/2023 2.8 johanna per pt 01/26/2023 4.8 (self-reporting) INR Home CoaguChek (no units) Date Value 11/09/2023 3.8 11/02/2023 2.0 10/25/2023 4.9 Nilda Parham ([employer]) [facility]07-[facility] Telephone encounter Note* Telephone Encounter - Aly Jiménez RP - 11/09/2023 4:38 PM EDT [facility] An[facility] Clinic Anticoagulation Episode Summary Anticoagulation Care Providers Provider Role Specialty Phone number Saurav Bob MD Referring Internal Medicine [phone] Georgie Elizabeth is a 53 year old year old male patient being evaluated today for a Telemanagement visit. Patient is currently on the following anticoagulant(s) Warfarin. Labs PT INR (no units) Date Value 10/04/2023 2.0 07/11/2023 2.8 johanna per pt 01/26/2023 4.8 (self-reporting) INR Home CoaguChek (no units) Date Value 11/09/2023 3.8 11/02/2023 2.0 10/25/2023 4.9 Hemoglobin (g/dL) Date Value 08/03/2023 14.8 08/05/2015 14.6 Hematocrit (%) Date Value 08/03/2023 44.8 08/05/2015 43.7 Platelet Count (k/uL) Date Value 08/03/2023 281 08/05/2015 327 Creatinine (mg/dL) Date Value 08/03/2023 0.85 04/22/2023 0.87 08/19/2022 0.94 08/05/2015 1.09 08/05/2015 1.03 02/17/2015 0.99 Bilirubin, Total (mg/dL) Date Value 08/03/2023 1.3 08/05/2015 0.8 ALT (U/L) Date Value 08/03/2023 26 08/05/2015 34 AST (U/L) Date Value 08/03/2023 21 08/05/2015 23 Estimated Creatinine Clearance: 135.9 mL/min (based on SCr of 0.85 mg/dL). ALLERGIES Allergen Reactions Codeine Mental Status Change Sulfa Drugs [Sulfa * Myalgia Indication for Warfarin: Anticoagulation Episode Summary Current INR goal: 2.5-3.5 Assessment: INR result of 3.8 is SUPRAtherapeutic due to: Patient taking incorrect warfarin dose or extra dose(s) Plan: Current Warfarin Dosing As of 11/09/2023 Full warfarin instructions: 11/08: 7.5 mg; Otherwise 12.5 mg every Wed, Wed; 10 mg all other days Called and spoke to patient/caregiver Advised patient to decrease dose for 1 day only then resume weekly regimen Next home INR check scheduled on 11/16/2023 Patient verbalizes understanding of the plan. Aly Jiménez RPh Clinical Pharmacist, Pharmacy Anticoagulation Clinic Pharmacy Anticoagulation Clinic Pager: [phone]. [facility]07-[facility] Miscellaneous Notes* Telephone Encounter - Aly Jiménez RPh - 11/09/2023 4:38 PM EDT [facility] Anticoagulation Episode Summary Anticoagulation Care Providers Provider Role Specialty Phone number Saurav Bob MD Referring Internal Medicine [phone] Georgie Elizabeth is a 53 year old year old male patient being evaluated today for a Telemanagement visit. Patient is currently on the following anticoagulant(s) Warfarin. Labs PT INR (no units) Date Value 10/04/2023 2.0 07/11/2023 2.8 johanna per pt 01/26/2023 4.8 (self-reporting) INR Home CoaguChek (no units) Date Value 11/09/2023 3.8 11/02/2023 2.0 10/25/2023 4.9 Hemoglobin (g/dL) Date Value 08/03/2023 14.8 08/05/2015 14.6 Hematocrit (%) Date Value 08/03/2023 44.8 08/05/2015 43.7 Platelet Count (k/uL) Date Value 08/03/2023 281 08/05/2015 327 Creatinine (mg/dL) Date Value 08/03/2023 0.85 04/22/2023 0.87 08/19/2022 0.94 08/05/2015 1.09 08/05/2015 1.03 02/17/2015 0.99 Bilirubin, Total (mg/dL) Date Value 08/03/2023 1.3 08/05/2015 0.8 ALT (U/L) Date Value 08/03/2023 26 08/05/2015 34 AST (U/L) Date Value 08/03/2023 21 08/05/2015 23 Estimated Creatinine Clearance: 135.9 mL/min (based on SCr of 0.85 mg/dL). ALLERGIES Allergen Reactions Codeine Mental Status Change Sulfa Drugs [Sulfa * Myalgia Indication for Warfarin: Anticoagulation Episode Summary Current INR goal: 2.5-3.5 Assessment: INR result of 3.8 is SUPRAtherapeutic due to: Patient taking incorrect warfarin dose or extra dose(s) Plan: Current Warfarin Dosing As of 11/09/2023 Full warfarin instructions: 11/08: 7.5 mg; Otherwise 12.5 mg every e, Fri; 10 mg all other days Called and spoke to patient/caregiver Advised patient to decrease dose for 1 day only then resume weekly regimen Next home INR check scheduled on 11/16/2023 Patient verbalizes understanding of the plan. Aly Jiménez RPh Clinical Pharmacist, Pharmacy Anticoagulation Clinic Pharmacy Anticoagulation Clinic Pager: [phone]. documented in this encounterProm[facility]07[facility] Telephone encounter Note * Telephone Encounter - Aly Jiménez RPh - 11/02/2023 3:50 PM EDT [facility] Anticoagulation Episode Summary Anticoagulation Care Providers Provider Role Specialty Phone number Saurav Bob MD Referring Internal Medicine [phone] Georgie Elizabeth is a 53 year old year old male patient being evaluated today for a Telemanagement visit. Patient is currently on the following anticoagulant(s) Warfarin. Labs PT INR (no units) Date Value 10/04/2023 2.0 07/11/2023 2.8 johanna per pt 01/26/2023 4.8 (self-reporting) INR Home CoaguChek (no units) Date Value 11/02/2023 2.0 10/25/2023 4.9 10/18/2023 3.9 Hemoglobin (g/dL) Date Value 08/03/2023 14.8 08/05/2015 14.6 Hematocrit (%) Date Value 08/03/2023 44.8 08/05/2015 43.7 Platelet Count (k/uL) Date Value 08/03/2023 281 08/05/2015 327 Creatinine (mg/dL) Date Value 08/03/2023 0.85 04/22/2023 0.87 08/19/2022 0.94 08/05/2015 1.09 08/05/2015 1.03 02/17/2015 0.99 Bilirubin, Total (mg/dL) Date Value 08/03/2023 1.3 08/05/2015 0.8 ALT (U/L) Date Value 08/03/2023 26 08/05/2015 34 AST (U/L) Date Value 08/03/2023 21 08/05/2015 23 Estimated Creatinine Clearance: 135.9 mL/min (based on SCr of 0.85 mg/dL). ALLERGIES Allergen Reactions Codeine Mental Status Change Sulfa Drugs [Sulfa * Myalgia Indication for Warfarin: Anticoagulation Episode Summary Current INR goal: 2.5-3.5 Assessment: INR result of 2.0 is SUBtherapeutic due to: No obvious cause (patient denies liver, green tea, new herbal/nutritional supplements - such as Boost, Ensure, an increase in vit K foods and/or V8 type juices, any changes in warfarin tablet, or missed doses) Plan: Current Warfarin Dosing As of 11/02/2023 Full warfarin instructions: 12.5 mg every Tue, Fri; 10 mg all other days Called and spoke to patient/caregiver Advised patient to increase total weekly regimen Next home INR check scheduled on 11/09/2023 Patient verbalizes understanding of the plan. Aly Jiménez RPh Clinical Pharmacist, Pharmacy Anticoagulation Clinic Pharmacy Anticoagulation Clinic Pager: [phone]. [facility] Miscellaneous Notes* Telephone Encounter - Aly Jiménez RPh - 11/02/2023 3:50 PM EDT [facility] Anticoagulation Episode Summary Anticoagulation Care Providers Provider Role Specialty Phone number Saurav Bob MD Referring Internal Medicine [phone] Georgie Elizabeth is a 53 year old year old male patient being evaluated today for a Telemanagement visit. Patient is currently on the following anticoagulant(s) Warfarin. Labs PT INR (no units) Date Value 10/04/2023 2.0 07/11/2023 2.8 johanna per pt 01/26/2023 4.8 (self-reporting) INR Home CoaguChek (no units) Date Value 11/02/2023 2.0 10/25/2023 4.9 10/18/2023 3.9 Hemoglobin (g/dL) Date Value 08/03/2023 14.8 08/05/2015 14.6 Hematocrit (%) Date Value 08/03/2023 44.8 08/05/2015 43.7 Platelet Count (k/uL) Date Value 08/03/2023 281 08/05/2015 327 Creatinine (mg/dL) Date Value 08/03/2023 0.85 04/22/2023 0.87 08/19/2022 0.94 08/05/2015 1.09 08/05/2015 1.03 02/17/2015 0.99 Bilirubin, Total (mg/dL) Date Value 08/03/2023 1.3 08/05/2015 0.8 ALT (U/L) Date Value 08/03/2023 26 08/05/2015 34 AST (U/L) Date Value 08/03/2023 21 08/05/2015 23 Estimated Creatinine Clearance: 135.9 mL/min (based on SCr of 0.85 mg/dL). ALLERGIES Allergen Reactions Codeine Mental Status Change Sulfa Drugs [Sulfa * Myalgia Indication for Warfarin: Anticoagulation Episode Summary Current INR goal: 2.5-3.5 Assessment: INR result of 2.0 is SUBtherapeutic due to: No obvious cause (patient denies liver, green tea, new herbal/nutritional supplements - such as Boost, Ensure, an increase in vit K foods and/or V8 type juices, any changes in warfarin tablet, or missed doses) Plan: Current Warfarin Dosing As of 11/02/2023 Full warfarin instructions: 12.5 mg every Tue, Fri; 10 mg all other days Called and spoke to patient/caregiver Advised patient to increase total weekly regimen Next home INR check scheduled on 11/09/2023 Patient verbalizes understanding of the plan. Aly Jiménez RPh Clinical Pharmacist, Pharmacy Anticoagulation Clinic Pharmacy Anticoagulation Clinic Pager: [phone]. documented in this encounterPromed[facility]06[facility] Telephone encounter Note * Telephone Encounter - Aly Jiménez RPh - 10/26/2023 8:06 AM EDT [facility] Anticoagulation Episode Summary Anticoagulation Care Providers Provider Role Specialty Phone number Saurav Bob MD Referring Internal Medicine [phone] Georgie Elizabeth is a 53 year old year old male patient being evaluated today for a Telemanagement visit. Patient is currently on the following anticoagulant(s) Warfarin. Labs PT INR (no units) Date Value 10/04/2023 2.0 07/11/2023 2.8 johanna per pt 01/26/2023 4.8 (self-reporting) INR Home CoaguChek (no units) Date Value 10/25/2023 4.9 10/18/2023 3.9 10/10/2023 4.9 Hemoglobin (g/dL) Date Value 08/03/2023 14.8 08/05/2015 14.6 Hematocrit (%) Date Value 08/03/2023 44.8 08/05/2015 43.7 Platelet Count (k/uL) Date Value 08/03/2023 281 08/05/2015 327 Creatinine (mg/dL) Date Value 08/03/2023 0.85 04/22/2023 0.87 08/19/2022 0.94 08/05/2015 1.09 08/05/2015 1.03 02/17/2015 0.99 Bilirubin, Total (mg/dL) Date Value 08/03/2023 1.3 08/05/2015 0.8 ALT (U/L) Date Value 08/03/2023 26 08/05/2015 34 AST (U/L) Date Value 08/03/2023 21 08/05/2015 23 Estimated Creatinine Clearance: 135.9 mL/min (based on SCr of 0.85 mg/dL). ALLERGIES Allergen Reactions Codeine Mental Status Change Sulfa Drugs [Sulfa * Myalgia Indication for Warfarin: Anticoagulation Episode Summary Current INR goal: 2.5-3.5 Assessment: INR result of 4.9 is SUPRAtherapeutic due to: Medication change or drug interaction Plan: Current Warfarin Dosing As of 10/26/2023 Full warfarin instructions: 7.5 mg every Martha; 10 mg all other days Called and spoke to patient/caregiver Advised patient to hold 1 dose then decrease current regimen Next home INR check scheduled on 11/02/2023 Patient verbalizes understanding of the plan. Aly Jiménez RPh Clinical Pharmacist, Pharmacy Anticoagulation Clinic [facility] Pager: [phone]. [facility]06-25-2024 Miscellaneous Notes* Telephone Encounter - Aly Jiménez RPh - 10/26/2023 8:06 AM EDT [facility] Ambulatory Pharmacy Anticoagulation Clinic Anticoagulation Episode Summary Anticoagulation Care Providers Provider Role Specialty Phone number Saurav Bob MD Referring Internal Medicine [phone] Georgie Elizabeth is a 53 year old year old male patient being evaluated today for a Telemanagement visit. Patient is currently on the following anticoagulant(s) Warfarin. Labs PT INR (no units) Date Value 10/04/2023 2.0 07/11/2023 2.8 johanna per pt 01/26/2023 4.8 (self-reporting) INR Home CoaguChek (no units) Date Value 10/25/2023 4.9 10/18/2023 3.9 10/10/2023 4.9 Hemoglobin (g/dL) Date Value 08/03/2023 14.8 08/05/2015 14.6 Hematocrit (%) Date Value 08/03/2023 44.8 08/05/2015 43.7 Platelet Count (k/uL) Date Value 08/03/2023 281 08/05/2015 327 Creatinine (mg/dL) Date Value 08/03/2023 0.85 04/22/2023 0.87 08/19/2022 0.94 08/05/2015 1.09 08/05/2015 1.03 02/17/2015 0.99 Bilirubin, Total (mg/dL) Date Value 08/03/2023 1.3 08/05/2015 0.8 ALT (U/L) Date Value 08/03/2023 26 08/05/2015 34 AST (U/L) Date Value 08/03/2023 21 08/05/2015 23 Estimated Creatinine Clearance: 135.9 mL/min (based on SCr of 0.85 mg/dL). ALLERGIES Allergen Reactions Codeine Mental Status Change Sulfa Drugs [Sulfa * Myalgia Indication for Warfarin: Anticoagulation Episode Summary Current INR goal: 2.5-3.5 Assessment: INR result of 4.9 is SUPRAtherapeutic due to: Medication change or drug interaction Plan: Current Warfarin Dosing As of 10/26/2023 Full warfarin instructions: 7.5 mg every Martha; 10 mg all other days Called and spoke to patient/caregiver Advised patient to hold 1 dose then decrease current regimen Next home INR check scheduled on 11/02/2023 Patient verbalizes understanding of the plan. Aly Jiménez RPh Clinical Pharmacist, Pharmacy [facility]ticoagulation Clinic [facility] Pager: [phone]. documented in this encounterProm[facility] NoteHNO ID: [id number] Author: RAMÓN SILVA MD Service: ? Author Type: Physician Type: Progress Notes Filed: 10/25/2023 10:17 Note Text: HPI: eva Elizabeth is a 53 year old male with a history of mechanical mitral valve on Coumadin and urethral stricture s/p ventral onlay BMG urethroplasty in 2014 , seen 02/01/23 at time of cystoscopy notable for mild annular stenosis at distal and proximal aspects of repair that accepted the scope. Last seen 10/11/23 Since last evaluation notes has had a few urinary infections, 1 in April but a subsequent infection in August that progressed to bacterial prostatitis (irritative LUTS, fever/chills) currently on Cipro,for a course of 4 weeks. Feels symptoms almost resolved, but still has dysuria , stream is all right and felt like he was emptying, voiding at reasonable time intervals. Hydrating well, no constipation. Denies gross hematuria. He tried 1 dose of Flomax however felt sick with flu like symptoms the next day and had to stop it On no urinary meds. No DM or immunosuppressive meds. Cysto: [id number] occlusive lateral prostate lobes Last urine Cx 09/30 Multisensitive Ecoli Uroflow Today: Volume 616 ml PFR: 20.2 ml/s Voiding time 43 s Time to F 16.5 s Average Flow rate 14.4 ml PVR 200 cc Interpretation: Large voided volume, normal flow rate, elevated residual urine but improved from prior. Salazar-shaped curve. 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 [phone] Depression with anxiety obsessive compulsive disorder Gout 12/22/2022 HTN (hypertension) Hyperbilirubinemia 12/22/2022 Hyperlipemia Hypertension 11/16/2013 -cont home meds Hypertrophic obstructive cardiomyopathy (HCC) 2012 s/p myectomy Mitral stenosis 2013 s/p re-do MVR with mechanical valve 11/13/13 Nephrolithiasis 2017 Obstructive sleep apnea 2012 Urethral stricture PAST SURGICAL HISTORY Procedure Laterality Date ADENOIDECTOMY HX 05/03/1986 COLONOSCOPY 05/03/2011 COLONOSCOPY SCREENING 01/08/2022 EGD DIAGNOSTIC 11/10/2022 PAST SURGICAL HISTORY OF 01/23/2013 mitral valve repair, #32 Valerie ring, ligation of left atrial appendage PAST SURGICAL HISTORY OF 11/13/2013 Myectomy and MVr with de leon band and valvuloplasty. PAST SURGICAL HISTORY OF 11/20/2013 redo sternotomy MVR with mechanical ON X valve (27/29 mm). PAST SURGICAL HISTORY OF 01/29/2015 BMG Urethroplasty TONSILLECTOMY HX 05/03/1986 Social History Tobacco Use Smoking status: Never Smokeless tobacco: Never Vaping Use Vaping Use: Never used Substance Use Topics Alcohol use: No Comment: rarely Drug use: Never Current Outpatient Medications on File Prior to Visit Medication Sig tamsulosin (FLOMAX) 0.4 mg Take 1 capsule by mouth daily at bedtime. rosuvastatin (CRESTOR) 20 mg tablet Take 1 tablet by mouth once daily. CPAP/BIPAP/OTHER Type .CPAPSettings into a note to see current settings/supplies/DME information. pantoprazole DR (PROTONIX) 40 mg tablet Take 1 tablet by mouth once daily. On empty stomach at least 30 minutes before eating. warfarin (COUMADIN) 10 mg tablet Take 15 mg every Mon, Wed; 12.5 mg all other days or as directed by anticoagulation clinic. (Takes with 5 mg tablets) warfarin (COUMADIN) 5 mg tablet Take 15 mg every Mon, Wed; 12.5 mg all other days or as directed by anticoagulation clinic. (Takes with 10 mg tablets) metoprolol succinate ER (TOPROL XL) 50 mg 24 hr tablet Take 1.5 tablets by mouth once daily. coenzyme Q10 (CO Q-10) 100 mg cap capsule Take 1 capsule by mouth once daily. enoxaparin (LOVENOX) 120 mg/0.8 mL injection Inject 120 mg subcutaneously. CPAP/BIPAP/OTHER Continue ASV with current settings of EPAP 5 cm H2O with PS 4-12 cmH2O. Lifetime supplies for ASV, including patient preferred mask, head gear, heated tubing, humidity, filters, chin strap. Dx: Obstructive Sleep Apnea G47.33 DME: ROSEMARIE aspirin 81 mg chewable tablet Take 1 tablet by mouth once daily. BIPAP Please service machine, humidifier causing issues. Lifetime supplies G47.33 DOREEN BIPAP ASV EPAP min 5 cm H20, PS 4-12 cm H20. Mask fitting to consider Dream wear FFM. Provide lifetime supplies including tubing, heated humidity, filters. Dx: G47.33 AND G47.37. BIPAP Fax 30 day download report to [phone] to assess usage and residual AHI after receipt of replacement ASV. Melatonin 5 mg tab Take by mouth as needed. ACETAMINOPHEN (TYLENOL EXTRA STRENGTH ORAL) Take by mouth as needed. Current Facility-Administered Medications on File Prior to Visit Medication perflutren lipid microspheres 1.3 mL in NaCl (PF) 0.9% 10 mL injection (DEFINITY) sodium chloride 0.9 % (flush) 10 mL (BD POS (more content not included)... [facility]06-24-2024 History of Present illness Narrative* Ramón Silva MD - 10/25/2023 8:56 AM EDT HPI: eva Elizabeth is a 53 year old male with a history of mechanical mitral valve on Coumadin andurethral stricture s/p ventral onlay BMG urethroplasty in 2014 , seen 02/01/23 at time of cystoscopynotable for mild annular stenosis at distal and proximal aspects of repair that accepted the scope.Last seen 10/11/23 Since last evaluation notes has had a few urinary infections, 1 in April but a subsequent infection in August that progressed to bacterial prostatitis (irritative LUTS, fever/chills) currently on Cipro,for a course of 4 weeks. Feels symptoms almost resolved, but still has dysuria , stream is all right and felt like he was emptying, voiding at reasonable time intervals. Hydrating well, no constipation. Denies gross hematuria. He tried 1 dose of Flomax however felt sick with flu like symptoms the next day and had to stop it On no urinary meds. No DM or immunosuppressive meds. Cysto: [id number]-rv-[id number] occlusive lateral prostate lobes Last urine Cx 09/30 Multisensitive Ecoli Uroflow Today: Volume 616 ml PFR: 20.2 ml/s Voiding time 43 s Time to F 16.5 s Average Flow rate 14.4 ml PVR 200 cc Interpretation: Large voided volume, normal flow rate, elevated residual urine but improved from prior. Salazar-shaped curve. 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 [phone] Depression with anxiety obsessive compulsive disorder Gout 12/22/2022 HTN (hypertension) Hyperbilirubinemia 12/22/2022 Hyperlipemia Hypertension 11/16/2013 -cont home meds Hypertrophic obstructive cardiomyopathy (HCC) 2012 s/p myectomy Mitral stenosis 2012 s/p re-do MVR with mechanical valve 11/13/13 Nephrolithiasis 2017 Obstructive sleep apnea 2012 Urethral stricture PAST SURGICAL HISTORY Procedure Laterality Date ADENOIDECTOMY HX 05/03/1986 COLONOSCOPY 05/03/2011 COLONOSCOPY SCREENING 01/08/2022 EGD DIAGNOSTIC 11/10/2022 PAST SURGICAL HISTORY OF 01/23/2013 mitral valve repair, #32 Valerie ring, ligation of left atrial appendage PAST SURGICAL HISTORY OF 11/13/2013 Myectomy and MVr with de leon band and valvuloplasty. PAST SURGICAL HISTORY OF 11/20/2013 redo sternotomy MVR with mechanical ON X valve (27/29 mm). PAST SURGICAL HISTORY OF 01/29/2015 BMG Urethroplasty TONSILLECTOMY HX 05/03/1986 Social History Tobacco Use Smoking status: Never Smokeless tobacco: Never Vaping Use Vaping Use: Never used Substance Use Topics Alcohol use: No Comment: rarely Drug use: Never Current Outpatient Medications on File Prior to Visit Medication Sig tamsulosin (FLOMAX) 0.4 mg Take 1 capsule by mouth daily at bedtime. rosuvastatin (CRESTOR) 20 mg tablet Take 1 tablet by mouth once daily. CPAP/BIPAP/OTHER Type .CPAPSettings into a note to see current settings/supplies/DME information. pantoprazole DR (PROTONIX) 40 mg tablet Take 1 tablet by mouth once daily. On empty stomach at least 30 minutes before eating. warfarin (COUMADIN) 10 mg tablet Take 15 mg every Mon, Wed; 12.5 mg all other days or as directed by anticoagulation clinic. (Takes with 5 mg tablets) warfarin (COUMADIN) 5 mg tablet Take 15 mg every Mon, Wed; 12.5 mg all other days or as directed byanticoagulation clinic. (Takes with 10 mg tablets) metoprolol succinate ER (TOPROL XL) 50 mg 24 hr tablet Take 1.5 tablets by mouth once daily. coenzyme Q10 (CO Q-10) 100 mg cap capsule Take 1 capsule by mouth once daily. enoxaparin (LOVENOX) 120 mg/0.8 mL injection Inject 120 mg subcutaneously. CPAP/BIPAP/OTHER Continue ASV with current settings of EPAP 5 cm H2O with PS 4- 12 cmH2O. Lifetime supplies for ASV, including patient preferred mask, head gear, heated tubing, humidity, filters, chin strap. Dx: Obstructive Sleep Apnea G47.33 DME: ROSEMARIE aspirin 81 mg chewable tablet Take 1 tablet by mouth once daily. BIPAP Please service machine, humidifier causing issues. Lifetime supplies G47.33 DOREEN BIPAP ASV EPAP min 5 cm H20, PS 4-12 cm H20. Mask fitting to consider Dream wear FFM. Provide lifetime supplies including tubing, heated humidity, filters. Dx: G47.33 & G47.37. BIPAP Fax 30 day download report to [phone] to assess usage and residual AHI after receipt of replacement ASV. Melatonin 5 mg tab Take by mouth as needed. ACETAMINOPHEN (TYLENOL EXTRA STRENGTH ORAL) Take by mouth as needed. Current Facility-Administered Medications on File Prior to Visit Medication perflutren lipid microspheres 1.3 mL in NaCl (PF) 0.9% 10 mL injection (DEFINITY) sodium chloride 0.9 % (flush) 10 mL (BD POSIFLUSH) ROS: Constitutional: negative Gastrointestinal: negative PHYSICAL EXAM: There were no vitals taken for this visit. GENERAL: Wnl nutrition, no deformities, healthy appearing DATA/OR LABS TO BE REVIEWED: (Simple=1 data point; Complex= 2 or more) PSA (ng/mL) Date Value 08/03/2023 1.36 Creatinine (mg/dL) Date Value 08/03/2023 0.85 04/22/2023 0.87 08/19/2022 0.94 08/12/2022 0.90 08/05/2015 1.09 08/05/2015 1.03 02/17/2015 0.99 02/16/2015 0.92 02/15/2015 0.92 No results found for: TESTOST A/P: Hx History of urethroplasty 15, most recent cystoscopy last fall showed patent reconstruction with moderate obstructive prostate lobes, recurrent prostatitis most recent 5/2 sensitive E Coli, gettingCipro for 4 weeks, symptoms improved with Some dysuria. Uroflow today voided 600cc, PFR 20 ml/s andPVR 200cc. Did not tolerate flomax - High capacity bladder with significant PVR, recommend to time voiding every 3- 4 hrs and reassess - Consider suppression Abx treatment with Daily Nitrofurantoin - Can consider RAMOS procedure like Janice Mahajan Uroliivonne with BPH specialist given that he is on Coumadin William Clements MD Urology PGY2 [facility] [place] Attending Note I evaluated the patient and personally participated in the smart components. I agree with the resident's findings and plan as documented and have discussed the case and management of the patient's carewith the resident. Epic notes reviewed. Patient voiding adequately, PVR improved. Remains on Cipro, completing 28-day course. He still reports an element of dysuria. Last cystoscopy was January 2023 showing patent urethra. Uroflow reviewed. Urinalysis pending ASSESSMENT/PLAN: 1. Acute prostatitis - ICD9: 601.0, ICD10: N41.0 (primary diagnosis) 2. Incomplete bladder emptying - ICD9: 788.21, ICD10: R33.9 3. History of urethral stricture - ICD9: V13.09, ICD10: Z87.448 Discussed with patient, he will complete Cipro and we will monitor closely. Explained possible needfor suppressive antibiotic in the future if infection continues to recur. We also discussed some minimally invasive treatment options for BPH should these be required in the future, unable to tolerate Flomax. Could also consider finasteride in the future. Return to clinic 4 months for recheck. Signature: Ramón Silva MD Date: 10/25/2023 Time: 10:13 AM documented in this encounterProm[facility] NotePatient Outreach (UROLMN) GEORGIE ELIZABETH ([id number]) 1970 M Date Time Provider Department 10/25/23 ANGERMEIER, RAMÓN W UROLMN During your visit today, we recorded the following information about you: Allergies As of Date: 10/25/2023 Noted Allergy Reaction CODEINE 10/30/2013 1 - Mental Status Change SULFA DRUGS (SULFA (SULFONAMIDE A*04/21/2023 17 - Myalgia Date Reviewed: 10/25/2023 Reviewed by: Guillermo Pedro OCCA - Fully Assessed Visit Diagnosis:Screening for genitourinary condition [Z13.89] Order(s):URINALYSIS, REFLEX MICROSCOPIC [[id number]] Order #: [id number] URINALYSIS, REFLEX MICROSCOPIC [[id number]] Order #: [id number]. #:[id number] Prescriptions as of 10/28/2023 - rosuvastatin (CRESTOR) 20 mg tablet Take 1 tablet by mouth once daily. - CPAP/BIPAP/OTHER Type .CPAPSettings into a note to see current settings/supplies/DME information. - pantoprazole DR (PROTONIX) 40 mg tablet Take 1 tablet by mouth once daily. On empty stomach at least 30 minutes before eating. - warfarin (COUMADIN) 10 mg tablet Take 15 mg every Mon, Wed; 12.5 mg all other days or as directed by anticoagulation clinic. (Takes with 5 mg tablets) - warfarin (COUMADIN) 5 mg tablet Take 15 mg every Wed, Wed; 12.5 mg all other days or as directed by anticoagulation clinic. (Takes with 10 mg tablets) - metoprolol succinate ER (TOPROL XL) 50 mg 24 hr tablet Take 1.5 tablets by mouth once daily. - coenzyme Q10 (CO Q-10) 100 mg cap capsule Take 1 capsule by mouth once daily. - enoxaparin (LOVENOX) 120 mg/0.8 mL injection Inject 120 mg subcutaneously. - CPAP/BIPAP/OTHER Continue ASV with current settings of EPAP 5 cm H2O with PS 4-12 cmH2O. Lifetime supplies for ASV, including patient preferred mask, head gear, heated tubing, humidity, filters, chin strap. Dx: Obstructive Sleep Apnea G47.33 DME: ROSEMARIE - aspirin 81 mg chewable tablet Take 1 tablet by mouth once daily. - BIPAP Please service machine, humidifier causing issues. Lifetime supplies G47.33 DOREEN - BIPAP ASV EPAP min 5 cm H20, PS 4-12 cm H20. Mask fitting to consider Dream wear FFM. Provide lifetime supplies including tubing, heated humidity, filters. Dx: G47.33 AND G47.37. - BIPAP Fax 30 day download report to [phone] to assess usage and residual AHI after receipt of replacement ASV. - Melatonin 5 mg tab Take by mouth as needed. - ACETAMINOPHEN (TYLENOL EXTRA STRENGTH ORAL) Take by mouth as needed. Facility-Administered Medications as of 10/28/2023 - perflutren lipid microspheres 1.3 mL in NaCl (PF) 0.9% 10 mL injection (DEFINITY) - sodium chloride 0.9 % (flush) 10 mL (BD POSIFLUSH) Problem List As Of Date 10/25/2023 Noted Resolved Pre-op testing [Z01.818] 11/01/2013 11/16/2013 History of cardiomyopathy [Z86.79] 11/01/2013 Mitral valve regurgitation [I34.0] 11/01/2013 11/16/2013 Cardiac insufficiency (HCC) [I50.9] 11/13/2013 11/14/2013 Stress hyperglycemia [R73.9] 11/13/2013 11/16/2013 Postoperative pain [G89.18] 11/13/2013 11/22/2013 LBBB [I44.7] 11/13/2013 Hypotension [I95.9] 11/13/2013 11/16/2013 Atelectasis [J98.11] 11/15/2013 04/29/2020 Fluid overload [E87.70] 11/15/2013 11/16/2013 Central sleep apnea treated with adaptive servo*11/15/2013 Urethral stricture [N35.919] 11/15/2013 11/16/2013 SUMMARY [V999.95] 11/16/2013 04/29/2020 Hypertension [I10] 11/16/2013 Pericardial effusion [I31.39] 11/17/2013 11/22/2013 Hypovolemia [E86.1] 11/20/2013 11/22/2013 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] 11/21/2013 Anemia [D64.9] 11/21/2013 04/29/2020 Epistaxis [R04.0] 11/27/2013 04/29/2020 Subtherapeutic international normalized ratio (*12/08/2013 04/29/2020 Abdominal pain [R10.9] 12/08/2013 04/29/2020 Elevated LFTs [R79.89] 12/08/2013 04/29/2020 Stricture, urethra [N35.919] 12/10/2014 04/29/2020 Lightheadedness [R42] 08/05/2015 04/29/2020 Mitral stenosis [I05.0] senior care (current) use of anticoagulants [Z79.* Overweight (BMI 25.0-29.9) [E66.3] 03/01/2019 History of mitral valve replacement with mechan*12/21/2022 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] 12/22/2022 Gout [M10.9] 12/22/2022 Hyperbilirubinemia [E80.6] 12/22/2022 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] 11/10/2022 Adenomatous colon polyp [D12.6] 01/08/2022 DOREEN (obstructive sleep apnea) [G47.33] 08/03/2023 Incomplete bladder emptying [R33.9] 10/11/2023 History of urethral stricture [Z87.448] 10/25/2023 Encounter Status:Closed by MICH LOPEZ on 10/28/23[facility] 10-18-2023 Telephone encounter Note* Telephone Encounter - Lana Poole RPh - 10/18/2023 1:27 PM EDT [facility] Ambulatory Pharmacy Anticoagulation Clinic Anticoagulation Episode Summary Anticoagulation Care Providers Provider Role Specialty Phone number Saurav Bob MD Referring Internal Medicine [phone] Georgie Elizabeth is a 53 year old year old male patient being evaluated today for a Telemanagement visit. Patient is currently on the following anticoagulant(s) Warfarin. Labs PT INR (no units) Date Value 10/04/2023 2.0 07/11/2023 2.8 johanna per pt 01/26/2023 4.8 (self-reporting) INR Home CoaguChek (no units) Date Value 10/18/2023 3.9 10/10/2023 4.9 09/28/2023 6.0 Estimated Creatinine Clearance: 126.7 mL/min (based on SCr of 0.85 mg/dL). ALLERGIES Allergen Reactions Codeine Mental Status Change Sulfa Drugs [Sulfa * Myalgia Indication for Warfarin: Anticoagulation Episode Summary Current INR goal: 2.5-3.5 Assessment: INR result of 3.9 is SUPRAtherapeutic due to: unknown cause - did not speak to patient Started 28-day course of Cipro on 10/04/23. Plan: Current Warfarin Dosing As of 10/18/2023 Full warfarin instructions: 12.5 mg every Sun, Martha; 10 mg all other days Left voice message Advised patient to decrease total weekly regimen Next INR check due on 10/25/2023 Patient instructed to call [facility] at [phone] with any questionsor concerns. Lana Poole RPh Clinical Pharmacist, Pharmacy Anticoagulation Clinic Pharm[facility] Pager: [phone] [facility]06-17-2024 Miscellaneous Notes* Telephone Encounter - Lana Poole RPh - 10/18/2023 1:27 PM EDT [facility] Ambulatory Pharmacy Anticoagulation Clinic Anticoagulation Episode Summary Anticoagulation Care Providers Provider Role Specialty Phone number Saurav Bob MD Referring Internal Medicine [phone] Georgie Elizabeth is a 53 year old year old male patient being evaluated today for a Telemanagement visit. Patient is currently on the following anticoagulant(s) Warfarin. Labs PT INR (no units) Date Value 10/04/2023 2.0 07/11/2023 2.8 johanna per pt 01/26/2023 4.8 (self-reporting) INR Home CoaguChek (no units) Date Value 10/18/2023 3.9 10/10/2023 4.9 09/28/2023 6.0 Estimated Creatinine Clearance: 126.7 mL/min (based on SCr of 0.85 mg/dL). ALLERGIES Allergen Reactions Codeine Mental Status Change Sulfa Drugs [Sulfa * Myalgia Indication for Warfarin: Anticoagulation Episode Summary Current INR goal: 2.5-3.5 Assessment: INR result of 3.9 is SUPRAtherapeutic due to: unknown cause - did not speak to patient Started 28-day course of Cipro on 10/04/23. Plan: Current Warfarin Dosing As of 10/18/2023 Full warfarin instructions: 12.5 mg every Sun, Martha; 10 mg all other days Left voice message Advised patient to decrease total weekly regimen Next INR check due on 10/25/2023 Patient instructed to call [facility] at [phone] with any questionsor concerns. Lana Poole [facility] Clinical Pharmacist, Pharmacy Anticoagulation Clinic Pharmacy [facility] Clinic Pager: [phone] documented in this encounterPromedica [facility]iance [facility]06[facility] Telephone encounter Note * Telephone Encounter - Cindy Qiu APRN.CNP - 10/15/2023 5:08 PM EDT Left voicemail for Georgie Elizabeth, advising that Dr. Silva does NOT recommend trying another medication; wants to just monitor symptoms until next appointment on 10/25/2023. Instructed him to call back during business hours if he has questions. Cindy Qiu APRN.CNP [facility] Work Phone: 1(200) 814-621106-14-2024 Miscellaneous Notes* Telephone Encounter - Cindy Qiu APRN.CNP - 10/15/2023 5:08 PM EDT Left voicemail for Georgie Elizabeth, advising that Dr. Silva does NOT recommend trying another medication; wants to just monitor symptoms until next appointment on 10/25/2023. Instructed him to call back during business hours if he has questions. Cindy Qiu APRN.CNP * Telephone Encounter - Cindy Qiu APRN.CNP - 10/15/2023 5:06 PM EDT ----- Message from Ramón Silva MD sent at 10/15/2023 4:08 PM EDT ----- Regarding: RE: Medication issue Contact: Just wait until October 24 * Telephone Encounter - Cindy Qiu APRN.CNP - 10/15/2023 4:06 PM EDT Called Georgie Elizabeth. He says he took a single dose of Flomax and had body aches, nausea, and wassuper weak. He decided to stop taking it, and all these symptoms had resolved by the following day. Advised that I will check with Dr. Silva to see whether he wants to try a different medication; other alpha blockers could have similar side effects, and 5 alpha reductase inhibitors are unlikely to produce any significant benefit before follow up appointment on 10/25/2023. Cindy Qiu APRN.CNP * Telephone Encounter - Cindy Qiu APRN.CNP - 10/15/2023 4:00 PM EDT ----- Message from Celina Saucedo [facility] [place] sent at 10/14/2023 3:35 PM EDT ----- Regarding: patient returned your call Contact: * Telephone Encounter - Cindy Qiu APRN.CNP - 10/13/2023 12:34 PM EDT Attempted to call Georgie Perry Glenn to get more information about current symptoms. Left voicemail, requesting call back. Cindy Qiu APRN.CNP * Telephone Encounter - Cindy Qiu APRN.CNP - 10/13/2023 12:31 PM EDT ----- Message from Marychuy Bonner Patient Service Spec sent at 10/13/2023 8:54 AM EDT ----- Regarding: Medication issue Contact: Georgie saw RICARDO on 10/10 and started flomax- he says the medication makes him feel ill- flu like symptoms- requesting an alterative. Also he is still having some discomfort in his urethra- currently on antibiotics Scheduled to see RICARDO on 10/24 for a two week recheck Please advise and thank you, Marychuy documented in this encounterProm[facility] Telephone encounter Note * Telephone Encounter - Cindy Qiu APRN.CNP - 10/15/2023 5:06 PM EDT ----- Message from Ramón Silva MD sent at 10/15/2023 4:08 PM EDT ----- Regarding: RE: Medication issue Contact: Just wait until October 24 [facility]06-[facility] Telephone encounter Note* Telephone Encounter - Cindy Qiu APRN.CNP - 10/15/2023 4:06 PM EDT Called Georgie Elizabeth. He says he took a single dose of Flomax and had body aches, nausea, and wassuper weak. He decided to stop taking it, and all these symptoms had resolved by the following day. Advised that I will check with Dr. Silva to see whether he wants to try a different medication; other alpha blockers could have similar side effects, and 5 alpha reductase inhibitors are unlikely to produce any significant benefit before follow up appointment on 10/25/2023. Cindy Qiu APRN.CNP [facility]06-[facility] Telephone encounter Note* Telephone Encounter - Cindy Qiu APRN.CNP - 10/15/2023 4:00 PM EDT ----- Message from Celina Saucedo [facility] [place] sent at 10/14/2023 3:35 PM EDT ----- Regarding: patient returned your call Contact: [facility] Telephone encounter Note* Telephone Encounter - Cindy Qiu APRN.CNP - 10/13/2023 12:34 PM EDT Attempted to call Georgie Elizabeth to get more information about current symptoms. Left voicemail, requesting call back. Cindy Qiu APRN.CNP [facility]06-[facility] Telephone encounter Note* Telephone Encounter - Cindy Qiu APRN.CNP - 10/13/2023 12:31 PM EDT ----- Message from Marychuy Bonner Patient Service Spec sent at 10/13/2023 8:54 AM EDT ----- Regarding: Medication issue Contact: Georgie saw KWA on 10/10 and started flomax- he says the medication makes him feel ill- flu like symptoms- requesting an alterative. Also he is still having some discomfort in his urethra- currently on antibiotics Scheduled to see RICARDO on 10/24 for a two week recheck Please advise and thank you, Marychuy [facility] Telephone encounter Note* Telephone Encounter - Lana Poole RPh - 10/11/2023 10:20 AM EDT [facility] Anticoagulation Episode Summary Anticoagulation Care Providers Provider Role Specialty Phone number Saurav Bob MD Referring Internal Medicine [phone] Georgie Elizabeth is a 53 year old year old male patient being evaluated today for a Telemanagement visit. Patient is currently on the following anticoagulant(s) Warfarin. Labs PT INR (no units) Date Value 10/04/2023 2.0 07/11/2023 2.8 johanna per pt 01/26/2023 4.8 (self-reporting) INR Home CoaguChek (no units) Date Value 10/10/2023 4.9 09/28/2023 6.0 09/14/2023 4.1 Estimated Creatinine Clearance: 126.7 mL/min (based on SCr of 0.85 mg/dL). ALLERGIES Allergen Reactions Codeine Mental Status Change Sulfa Drugs [Sulfa * Myalgia Indication for Warfarin: Anticoagulation Episode Summary Current INR goal: 2.5-3.5 Assessment: INR result of 4.9 is SUPRAtherapeutic due to: drug interaction (Cipro) Plan: Current Warfarin Dosing As of 10/11/2023 Full warfarin instructions: 10/10: 5 mg; Otherwise 10 mg every Mon, Wed, Fri; 12.5 mg all other days Called and spoke to patient/caregiver Advised patient to decrease dose for 1 day and decrease total weekly regimen Next INR check due on 10/18/2023 Patient verbalizes understanding of the plan. Lana Poole RPh Clinical Pharmacist, Pharmacy Anticoagulation Clinic Pharmacy Anticoagulation Clinic Pager: [phone]. [facility] Miscellaneous Notes* Telephone Encounter - Lana Poole RPh - 10/11/2023 10:20 AM EDT [facility] Antico[facility] Clinic Anticoagulation Episode Summary Anticoagulation Care Providers Provider Role Specialty Phone number Saurav Bob MD Referring Internal Medicine [phone] Georgie Elizabeth is a 53 year old year old male patient being evaluated today for a Telemanagement visit. Patient is currently on the following anticoagulant(s) Warfarin. Labs PT INR (no units) Date Value 10/04/2023 2.0 07/11/2023 2.8 johanna per pt 01/26/2023 4.8 (self-reporting) INR Home CoaguChek (no units) Date Value 10/10/2023 4.9 09/28/2023 6.0 09/14/2023 4.1 Estimated Creatinine Clearance: 126.7 mL/min (based on SCr of 0.85 mg/dL). ALLERGIES Allergen Reactions Codeine Mental Status Change Sulfa Drugs [Sulfa * Myalgia Indication for Warfarin: Anticoagulation Episode Summary Current INR goal: 2.5-3.5 Assessment: INR result of 4.9 is SUPRAtherapeutic due to: drug interaction (Cipro) Plan: Current Warfarin Dosing As of 10/11/2023 Full warfarin instructions: 10/10: 5 mg; Otherwise 10 mg every Mon, Wed, Fri; 12.5 mg all other days Called and spoke to patient/caregiver Advised patient to decrease dose for 1 day and decrease total weekly regimen Next INR check due on 10/18/2023 Patient verbalizes understanding of the plan. Lana Poole RPh Clinical Pharmacist, Pharmacy Anticoagulation Clinic Pharmacy Anticoagulation Clinic Pager: [phone]. documented in this encounterProm[facility]06-[facility] Nurse Note* Karin Gongora OCCA - 10/11/2023 9:22 AM EDT Post Void Residual done on patient with 436 cc residual volume remaining. notified. YUNG White [facility]06-10-[facility] Nurse Note* Karin Gongora OCCA - 10/11/2023 9:22 AM EDT Post Void Residual done on patient with 436 cc residual volume remaining. notified. YUNG White documented in this encounterPromed[facility]06-10-[facility] History of Present illness Narrative* Ramón Silva MD - 10/11/2023 8:02 AM EDT HPI: HPI Georgie Elizabeth is a 53 year old male with a history of mechanical mitral valve on Coumadin and urethral stricture s/p ventral onlay BMG urethroplasty in 2014 last seen on 02/01/23 at time of cystoscopy notable for mild annular stenosis at distal and proximal aspects of repair that accepted the scope easily who returns today for follow up. Here for uroflow. Since last evaluation notes has had a few urinary infections, 1 in April but a subsequent infection in August that progressed to bacterial prostatitis (irritative LUTS, fever/chills), started on keflex -> cipro for 28 days for which he is 1 week in. Symptoms improving. Prior to this he feels like he was urinating okay, stream is all right and felt like he was emptying, voiding at reasonable time intervals. Hydrating well, no constipation. Denies gross hematuria. On no urinary meds. No DM or immunosuppressive meds. 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 [phone] Depression with anxiety obsessive compulsive disorder Gout 12/22/2022 HTN (hypertension) Hyperbilirubinemia 12/22/2022 Hyperlipemia Hypertension 11/16/2013 -cont home meds Hypertrophic obstructive cardiomyopathy (HCC) 2013 s/p myectomy Mitral stenosis 2013 s/p re-do MVR with mechanical valve 11/13/13 Nephrolithiasis 2017 Obstructive sleep apnea 2012 Urethral stricture PAST SURGICAL HISTORY Procedure Laterality Date ADENOIDECTOMY HX 05/03/1986 COLONOSCOPY 05/03/2011 COLONOSCOPY SCREENING 01/08/2022 EGD DIAGNOSTIC 11/10/2022 PAST SURGICAL HISTORY OF 01/23/2013 mitral valve repair, #32 Valerie ring, ligation of left atrial appendage PAST SURGICAL HISTORY OF 11/13/2013 Myectomy and MVr with de leon band and valvuloplasty. PAST SURGICAL HISTORY OF 11/20/2013 redo sternotomy MVR with mechanical ON X valve (27/29 mm). PAST SURGICAL HISTORY OF 01/29/2015 BMG Urethroplasty TONSILLECTOMY HX 05/03/1986 Social History Tobacco Use Smoking status: Never Smokeless tobacco: Never Vaping Use Vaping Use: Never used Substance Use Topics Alcohol use: No Comment: rarely Drug use: Never Current Outpatient Medications on File Prior to Visit Medication Sig mupirocin (BACTROBAN) 2 % ointment Apply to affected area two times a day for 10 days. rosuvastatin (CRESTOR) 20 mg tablet Take 1 tablet by mouth once daily. CPAP/BIPAP/OTHER Type .CPAPSettings into a note to see current settings/supplies/DME information. pantoprazole DR (PROTONIX) 40 mg tablet Take 1 tablet by mouth once daily. On empty stomach at least 30 minutes before eating. warfarin (COUMADIN) 10 mg tablet Take 15 mg every Mon, Wed; 12.5 mg all other days or as directed by anticoagulation clinic. (Takes with 5 mg tablets) warfarin (COUMADIN) 5 mg tablet Take 15 mg every Mon, Wed; 12.5 mg all other days or as directed byanticoagulation clinic. (Takes with 10 mg tablets) metoprolol succinate ER (TOPROL XL) 50 mg 24 hr tablet Take 1.5 tablets by mouth once daily. coenzyme Q10 (CO Q-10) 100 mg cap capsule Take 1 capsule by mouth once daily. enoxaparin (LOVENOX) 120 mg/0.8 mL injection Inject 120 mg subcutaneously. cholestyramine (QUESTRAN) 4 gram packet Take 1 Packet by mouth every evening. Per Dr. Kezia Madison. CPAP/BIPAP/OTHER Continue ASV with current settings of EPAP 5 cm H2O with PS 4- 12 cmH2O. Lifetime supplies for ASV, including patient preferred mask, head gear, heated tubing, humidity, filters, chin strap. Dx: Obstructive Sleep Apnea G47.33 DME: ROSEM[facility]IE aspirin 81 mg chewable tablet Take 1 tablet by mouth once daily. BIPAP Please service machine, humidifier causing issues. Lifetime supplies G47.33 DOREEN BIPAP ASV EPAP min 5 cm H20, PS 4-12 cm H20. Mask fitting to consider Dream wear FFM. Provide lifetime supplies including tubing, heated humidity, filters. Dx: G47.33 & G47.37. BIPAP Fax 30 day download report to [phone] to assess usage and residual AHI after receipt of replacement ASV. Melatonin 5 mg tab Take by mouth as needed. ACETAMINOPHEN (TYLENOL EXTRA STRENGTH ORAL) Take by mouth as needed. Current Facility-Administered Medications on File Prior to Visit Medication perflutren lipid microspheres 1.3 mL in NaCl (PF) 0.9% 10 mL injection (DEFINITY) sodium chloride 0.9 % (flush) 10 mL (BD POSIFLUSH) PHYSICAL EXAM: There were no vitals taken for this visit. GENERAL: well appearing, no acute distress Uroflow: -voided volume: 956 cc -Qmax 23.4 cc/s -Qavg 28 cc/s -Curve some staccato Impression: Large capacity bladder, normal flow rate, incomplete bladder emptying PVR 346 cc -> voided 350 cc and then PVR 300 cc DATA/OR LABS TO BE REVIEWED: (Simple=1 data point; Complex= 2 or more) PSA (ng/mL) Date Value 08/03/2023 1.36 Creatinine (mg/dL) Date Value 08/03/2023 0.85 04/22/2023 0.87 08/19/2022 0.94 08/12/2022 0.90 08/05/2015 1.09 08/05/2015 1.03 02/17/2015 0.99 02/16/2015 0.92 02/15/2015 0.92 No results found for: TESTOST A/P: S/p vBMG urethroplasty in 2014 with wide caliber narrowing under surveillance, now being treated for bacterial prostatitis. - Jyoti Live MD Attending Note I evaluated the patient and personally participated in the smart components. I agree with the resident's findings and plan as documented and have discussed the case and management of the patient's carewith the resident. Epic notes reviewed. History of urethroplasty 15, most recent cystoscopy last fall showed patent reconstruction. More recent problems with urinary tract infection and this progressed to bacterial prostatitis in August. Now on Cipro and starting to feel better. INR has increased on Cipro and he will discuss this with primary care physician. Urinalysis pending Uroflow and PVR noted ASSESSMENT/PLAN: 1. Acute prostatitis - ICD9: 601.0, ICD10: N41.0 (primary diagnosis) 2. Incomplete bladder emptying - ICD9: 788.21, ICD10: R33.9 3. History of urethral stricture - ICD9: V13.09, ICD10: Z87.448 Discussed with patient, he will discuss Coumadin dosing with primary care physician during Cipro therapy. Recommend Flomax nightly and he agrees. Encourage timed voiding for now to avoid large bladder volumes. Return to clinic in about 2 weeks for recheck. Signature: Ramón Silva MD Date: 10/11/2023 Time: 9:03 AM * Maisha Lindsay RN - 10/11/2023 7:59 AM EDT duplicate documented in this encounterProm[facility]06-[facility] Instructions* Patient Instructions* Carolyn Ford APRN.[facility] - 10/07/2023 4:28 PM EDT EXPRESS [facility] PATIENT INFO BEE AND INSECT STING OVERVIEW Being stung by a bee, wasp, hornet, or yellowjacket can be both painful and scary. Some people haveserious or even life-threatening reactions to stings, requiring quick treatment. INSECT TYPES The insects that cause the most serious sting reactions include the following: Honeybees and bumblebees Yellowjackets,yellow hornets, white faced hornets, and paper wasps Fire ants, harvester ants, bulldog ants, and marge jumper ants. INSECT STING REACTION After being stung, you should remove the stinger from your skin as soon as possible to prevent any more venom from being released into the skin. However, all the venom is released from the stinger within the first few seconds, so this is only helpful if done quickly. You do not need to use any special technique (eg, flicking or scraping) to get the stinger out. Most people who are stung by an insect will develop a local reaction (an area of swelling and redness). Some people will also develop a severe allergic reaction, called anaphylaxis. Local reaction - Immediately after being stung, most people have: Sharp or burning pain Skin swelling and redness The swelling and pain usually improve within a few hours. Approximately 10 percent of people develop severe redness and swelling after a sting; this is called a large local reaction. The area may become large (4 inches or 10 cm) over 1 to 2 days, then slowly resolve over 5 to 10 days. Having a large local reaction does not mean that you will have a severe allergic reaction (anaphylaxis) if you are stung again. Only about 5 to 10 percent of people who have a large local reaction will have anaphylaxis if stung in the future. If you have a large local reaction, talk to your doctor or nurse to determine what steps, if any, you need to take if you are stung again. Local reaction treatment - To reduce pain and swelling after an insect sting, you can try the following: Apply a cold compress (a cold, damp washcloth or damp cloth wrapped around an ice pack) to the area. If you develop itching, you can take a nonprescription antihistamine, such as cetirizine (Zyrtec ). A pain reliever, such as ibuprofen (sold as Advil, Motrin, and store brands), may help reduce pain. If nonprescription treatments do not help or your pain or swelling gets worse, call your doctor or nurse. Severe allergic reaction - Insect stings are a common cause of severe allergic reactions, called anaphylaxis. You can have an anaphylactic reaction the first time you are stung. Symptoms of an anaphylactic reaction usually develop quickly, and include: Skin symptoms, such as hives, redness, or swelling of skin away from the area that was stung (for example, the face or lips may swell after being stung on the hand) Belly cramps, nausea, vomiting, or diarrhea Hoarse voice, shortness of breath, and difficulty breathing Lightheadedness, dizziness, passing out Severe allergic reaction treatment - Severe allergic reactions are a medical emergency that can lead to if not treated quickly. If you develop any symptoms of anaphylaxis, you need to get emergency care as soon as possible. When possible, ask someone else to call for emergency care (call 911 in the [place]). Do not drive yourself to the hospital and do not ask someone else to drive you. Calling 911 is safer than driving for two reasons: You can get treatment from the paramedics as soon as the ambulance arrives. If you drive to the hospital, you cannot get treatment until you arrive in the emergency department. Since dangerous complications may occur (eg, you stop breathing) on the way to the hospital, paramedics are trained to treat you. The first and most important treatment for a severe allergic reaction is a shot of epinephrine. Epinephrine is available by prescription in prefilled syringes, called epinephrine autoinjectors. AM I ALLERGIC TO STINGS? If you had a severe reaction (anaphylaxis) after being stung, you should make an appointment to seean small engine specialist. At this visit, the parking patroller will: Try to determine if you are allergic to stings Help you decide if you need allergy shots (called immunotherapy) to reduce your risk of anaphylaxisin the future Teach you how and when to use an epinephrine autoinjector Allergy testing - Testing can be done to determine if you are allergic to insect stings. Blood and skin tests are available, and both are needed in some cases. If allergy testing shows that you are allergic to insect stings, there is a good chance that you will have a serious allergic reaction (anaphylaxis) if you are stung again. Allergy shots can greatly reduce the risk of anaphylaxis. Allergy shots (immunotherapy) - Allergy shots, also called venom immunotherapy, can reduce your chance of having a serious or life-threatening reaction to a sting. When you are stung by an insect, the stinger injects venom into your skin, which causes the allergic reaction. Allergy shots usually contain purified venom. The first few allergy shots contain very small amounts of venom, and the amount is gradually increased until you can tolerate the amount of venom in two or more stings without having allergic symptoms. Allergy shots are often recommended if you had: A serious allergic reaction (anaphylaxis) after being stung, AND Allergy testing shows that you are allergic to bee, wasp, yellowjacket, or hornet venom Allergy shots are usually given in an parking patroller's office one to three times per week for a few months, and then once per month for at least three years. Some people continue to get allergy shots for three to five years while other people get them for longer. Most experts recommend that you continue getting allergy shots indefinitely if: You had a life-threatening reaction to a past sting You have a reaction to the allergy shot since this is a sign that you are very sensitive to the venom You are so fearful of having a severe allergic reaction that you cannot enjoy normal outdoor activities As a result of immunotherapy, your risk of having a serious allergic reaction after a sting becomesmuch lower. You should still carry an epinephrine autoinjector. Epinephrine - Epinephrine, sometimes called adrenaline, is a medicine that can treat the symptoms of a serious allergic reaction. Epinephrine is available in pre-filled syringes so that you can give yourself a shot, if needed. If you had anaphylaxis after an insect sting in the past, you should always carry at least one epinephrine autoinjector (even in the winter). However, one or even two injections of epinephrine may not be enough to stop a life-threatening reaction. This is why it is important to talk to an parking patroller about allergy shots if you have had a serious allergic reaction after a sting. You should also seek emergency medical care after using an epinephrine autoinjector, because the symptoms of allergic reactions sometimes come back after initially improving. AVOIDING STINGS Bees and wasps that are away from their nest are not aggressive and only sting when threatened (after being hit, stepped on, or swatted). Wearing brightly colored clothing or perfume does not increase the risk of being stung. Wearing white or light-colored clothing may reduce the chance of being attacked if you are near a nest. When eating outside, keep food and drinks covered and wipe up food and drink spills quickly. Watch for yellowjackets inside drink containers. Do not walk outside without shoes. If you find a wasp nest near your home, do not try to get rid of the nest yourself. Instead, call apest control professional. If you have a sting allergy, avoid activities that may disturb a nest, such as mowing the lawn or pruning a hedge. If a stinging insect is near, slowly back away and do not flail your arms. If you are being swarmedor stung, cover your mouth and nose with your hand and run inside a building or an enclosed vehicle. documented in this encounterPromedica [facility]06-[facility] History of Present illness Narrative* Carolyn Ford APRN.CNP - 10/07/2023 4:24 PM EDT Images from the original note were not included. October 07, 2023 Georgie Elizabeth 1970 VIRTUAL VISIT PROGRESS NOTE This is a virtual visit. It required patient-provider interaction for the medical decision making as documented below. Informed verbal consent was obtained from this patient to communicate and provide care using virtual and other telecommunications tools. This patient has been explained the risks related to unauthorized disclosure or interception of personal health information and steps they can take to help protect their information. We have discussed that care provided through video or audio communication cannot replace the need for physical examination or an in person visit for some disorders or urgent problems and patient understands the need to seek urgent care in an Emergency Department as necessary. I have communicated my name and active licensure. The patient's identity and physical location wereverified at the time of this visit. Either the patient or their legal risk control representative has been informed of the risks and benefits of -- and alternatives to -- treatment through a remote evaluation andconsents to proceed with the evaluation remotely. Platform patient seen on: [employer] Z[employer] Video Visit platform Location of patient: [place] Georgie Elizabeth is a 53 year old male seen for Patient presents with: Insect Bite Patient presents with complaints of wasp sting x1 day. The patient has a history of cellulitis after bee stings. The patient is currently on cipro for another issue. The patient states the area has remained red, swollen, and tender. 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 [phone] Depression with anxiety obsessive compulsive disorder Gout 12/22/2022 HTN (hypertension) Hyperbilirubinemia 12/22/2022 Hyperlipemia Hypertension 11/16/2013 -cont home meds Hypertrophic obstructive cardiomyopathy (HCC) 2012 s/p myectomy Mitral stenosis 2012 s/p re-do MVR with mechanical valve 11/13/13 Nephrolithiasis 2017 Obstructive sleep apnea 2012 Urethral stricture PAST SURGICAL HISTORY Procedure Laterality Date ADENOIDECTOMY HX 05/03/1986 COLONOSCOPY 05/03/2011 COLONOSCOPY SCREENING 01/08/2022 EGD DIAGNOSTIC 11/10/2022 PAST SURGICAL HISTORY OF 01/23/2013 mitral valve repair, #32 Valerie ring, ligation of left atrial appendage PAST SURGICAL HISTORY OF 11/13/2013 Myectomy and MVr with de leon band and valvuloplasty. PAST SURGICAL HISTORY OF 11/20/2013 redo sternotomy MVR with mechanical ON X valve (27/29 mm). PAST SURGICAL HISTORY OF 01/29/2015 BMG Urethroplasty TONSILLECTOMY HX 05/03/1986 FAMILY HISTORY Problem Relation Age of Onset other (Diverticulosis) Mother Heart Father [place], sudden 50's Colon Cancer Sister Heart Paternal Grandmother Social History Tobacco Use Smoking status: Never Smokeless tobacco: Never Vaping Use Vaping Use: Never used Substance Use Topics Alcohol use: No Comment: rarely Drug use: Never Current Outpatient Medications Medication Sig mupirocin (BACTROBAN) 2 % ointment Apply to affected area two times a day for 10 days. cephALEXin (KEFLEX) 500 mg capsule Take 1 capsule by mouth three times a day for 7 days. rosuvastatin (CRESTOR) 20 mg tablet Take 1 tablet by mouth once daily. CPAP/BIPAP/OTHER Type .CPAPSettings into a note to see current settings/supplies/DME information. pantoprazole DR (PROTONIX) 40 mg tablet Take 1 tablet by mouth once daily. On empty stomach at least 30 minutes before eating. warfarin (COUMADIN) 10 mg tablet Take 15 mg every Mon, Wed; 12.5 mg all other days or as directed by anticoagulation clinic. (Takes with 5 mg tablets) warfarin (COUMADIN) 5 mg tablet Take 15 mg every Mon, Wed; 12.5 mg all other days or as directed byanticoagulation clinic. (Takes with 10 mg tablets) metoprolol succinate ER (TOPROL XL) 50 mg 24 hr tablet Take 1.5 tablets by mouth once daily. coenzyme Q10 (CO Q-10) 100 mg cap capsule Take 1 capsule by mouth once daily. enoxaparin (LOVENOX) 120 mg/0.8 mL injection Inject 120 mg subcutaneously. cholestyramine (QUESTRAN) 4 gram packet Take 1 Packet by mouth every evening. Per Dr. Kezia Madison. CPAP/BIPAP/OTHER Continue ASV with current settings of EPAP 5 cm H2O with PS 4- 12 cmH2O. Lifetime supplies for ASV, including patient preferred mask, head gear, heated tubing, humidity, filters, chin strap. Dx: Obstructive Sleep Apnea G47.33 DME: [facility] aspirin 81 mg chewable tablet Take 1 tablet by mouth once daily. BIPAP Please service machine, humidifier causing issues. Lifetime supplies G47.33 DOREEN BIPAP ASV EPAP min 5 cm H20, PS 4-12 cm H20. Mask fitting to consider Dream wear F[facility]. Provide lifetime supplies including tubing, heated humidity, filters. Dx: G47.33 & G47.37. BIPAP Fax 30 day download report to [phone] to assess usage and residual AHI after receipt of replacement ASV. Melatonin 5 mg tab Take by mouth as needed. ACETAMINOPHEN (TYLENOL EXTRA STRENGTH ORAL) Take by mouth as needed. Current Facility-Administered Medications Medication Dose Route Frequency perflutren lipid microspheres 1.3 mL in NaCl (PF) 0.9% 10 mL injection (DEFINITY) INTRAVENOUS DIRECTED PRN sodium chloride 0.9 % (flush) 10 mL (BD POSIFLUSH) 10 mL INTRAVENOUS DIRECTED PRN ALLERGIES Allergen Reactions Codeine Mental Status Change Sulfa Drugs [Sulfa * Myalgia REVIEW OF SYSTEMS: Review of Systems Constitutional: Negative for activity change, appetite change, chills, diaphoresis, fatigue, fever and unexpected weight change. Eyes: Negative for visual disturbance. Respiratory: Negative for apnea, cough, choking, chest tightness, shortness of breath, wheezing andstridor. Cardiovascular: Negative for chest pain, palpitations and leg swelling. Endocrine: Negative for cold intolerance, heat intolerance, polydipsia, polyphagia and polyuria. Skin: Positive for wound. Negative for color change and rash. Psychiatric/Behavioral: Negative. PHYSICAL EXAMINATION: VIDEO EXAM: (performed via video enabled technology) GENERAL: alert and appropriate, in no distress, well-hydrated, well nourished, and happy, smiling, interactive SKIN: right index finger is mildly erythematous and mildly swollen, tender to self palpation and movement RESPIRATORY: breathing non-labored ASSESSMENT: (T63.441A) Bee sting, accidental or unintentional, initial encounter (primary encounter diagnosis) PLAN: Encounter Diagnosis ICD-10-CM 1. Bee sting, accidental or unintentional, initial encounter T63.441A mupirocin (BACTROBAN) 2 % ointment Will order topical antibiotic, encouraged BID epsom salt soaks Return if symptoms worsen or fail to improve, for recheck with PCP. Patient Instructions [facility] PATIENT INFO BEE AND INSECT STING OVERVIEW Being stung by a bee, wasp, hornet, or yellowjacket can be both painful and scary. Some people haveserious or even life-threatening reactions to stings, requiring quick treatment. INSECT TYPES The insects that cause the most serious sting reactions include the following: Honeybees and bumblebees Yellowjackets,yellow hornets, white faced hornets, and paper wasps Fire ants, harvester ants, bulldog ants, and marge jumper ants. INSECT STING REACTION After being stung, you should remove the stinger from your skin as soon as possible to prevent any more venom from being released into the skin. However, all the venom is released from the stinger within the first few seconds, so this is only helpful if done quickly. You do not need to use any special technique (eg, flicking or scraping) to get the stinger out. Most people who are stung by an insect will develop a local reaction (an area of swelling and redness). Some people will also develop a severe allergic reaction, called anaphylaxis. Local reaction - Immediately after being stung, most people have: Sharp or burning pain Skin swelling and redness The swelling and pain usually improve within a few hours. Approximately 10 percent of people develop severe redness and swelling after a sting; this is called a large local reaction. The area may become large (4 inches or 10 cm) over 1 to 2 days, then slowly resolve over 5 to 10 days. Having a large local reaction does not mean that you will have a severe allergic reaction (anaphylaxis) if you are stung again. Only about 5 to 10 percent of people who have a large local reaction will have anaphylaxis if stung in the future. If you have a large local reaction, talk to your doctor or nurse to determine what steps, if any, you need to take if you are stung again. Local reaction treatment - To reduce pain and swelling after an insect sting, you can try the following: Apply a cold compress (a cold, damp washcloth or damp cloth wrapped around an ice pack) to the area. If you develop itching, you can take a nonprescription antihistamine, such as cetirizine (Zyrtec ). A pain reliever, such as ibuprofen (sold as Advil, Motrin, and store brands), may help reduce pain. If nonprescription treatments do not help or your pain or swelling gets worse, call your doctor or nurse. Severe allergic reaction - Insect stings are a common cause of severe allergic reactions, called anaphylaxis. You can have an anaphylactic reaction the first time you are stung. Symptoms of an anaphylactic reaction usually develop quickly, and include: Skin symptoms, such as hives, redness, or swelling of skin away from the area that was stung (for example, the face or lips may swell after being stung on the hand) Belly cramps, nausea, vomiting, or diarrhea Hoarse voice, shortness of breath, and difficulty breathing Lightheadedness, dizziness, passing out Severe allergic reaction treatment - Severe allergic reactions are a medical emergency that can lead to if not treated quickly. If you develop any symptoms of anaphylaxis, you need to get emergency care as soon as possible. When possible, ask someone else to call for emergency care (call 911 in the [place]). Do not drive yourself to the hospital and do not ask someone else to drive you. Calling 911 is safer than driving for two reasons: You can get treatment from the paramedics as soon as the ambulance arrives. If you drive to the hospital, you cannot get treatment until you arrive in the emergency department. Since dangerous complications may occur (eg, you stop breathing) on the way to the hospital, paramedics are trained to treat you. The first and most important treatment for a severe allergic reaction is a shot of epinephrine. Epinephrine is available by prescription in prefilled syringes, called epinephrine autoinjectors. AM I ALLERGIC TO STINGS? If you had a severe reaction (anaphylaxis) after being stung, you should make an appointment to seean small engine specialist. At this visit, the parking patroller will: Try to determine if you are allergic to stings Help you decide if you need allergy shots (called immunotherapy) to reduce your risk of anaphylaxisin the future Teach you how and when to use an epinephrine autoinjector Allergy testing - Testing can be done to determine if you are allergic to insect stings. Blood and skin tests are available, and both are needed in some cases. If allergy testing shows that you are allergic to insect stings, there is a good chance that you will have a serious allergic reaction (anaphylaxis) if you are stung again. Allergy shots can greatly reduce the risk of anaphylaxis. Allergy shots (immunotherapy) - Allergy shots, also called venom immunotherapy, can reduce your chance of having a serious or life-threatening reaction to a sting. When you are stung by an insect, the stinger injects venom into your skin, which causes the allergic reaction. Allergy shots usually contain purified venom. The first few allergy shots contain very small amounts of venom, and the amount is gradually increased until you can tolerate the amount of venom in two or more stings without having allergic symptoms. Allergy shots are often recommended if you had: A serious allergic reaction (anaphylaxis) after being stung, AND Allergy testing shows that you are allergic to bee, wasp, yellowjacket, or hornet venom Allergy shots are usually given in an parking patroller's office one to three times per week for a few months, and then once per month for at least three years. Some people continue to get allergy shots for three to five years while other people get them for longer. Most experts recommend that you continue getting allergy shots indefinitely if: You had a life-threatening reaction to a past sting You have a reaction to the allergy shot since this is a sign that you are very sensitive to the venom You are so fearful of having a severe allergic reaction that you cannot enjoy normal outdoor activities As a result of immunotherapy, your risk of having a serious allergic reaction after a sting becomesmuch lower. You should still carry an epinephrine autoinjector. Epinephrine - Epinephrine, sometimes called adrenaline, is a medicine that can treat the symptoms of a serious allergic reaction. Epinephrine is available in pre-filled syringes so that you can give yourself a shot, if needed. If you had anaphylaxis after an insect sting in the past, you should always carry at least one epinephrine autoinjector (even in the winter). However, one or even two injections of epinephrine may not be enough to stop a life-threatening reaction. This is why it is important to talk to an parking patroller about allergy shots if you have had a serious allergic reaction after a sting. You should also seek emergency medical care after using an epinephrine autoinjector, because the symptoms of allergic reactions sometimes come back after initially improving. AVOIDING STINGS Bees and wasps that are away from their nest are not aggressive and only sting when threatened (after being hit, stepped on, or swatted). Wearing brightly colored clothing or perfume does not increase the risk of being stung. Wearing white or light-colored clothing may reduce the chance of being attacked if you are near a nest. When eating outside, keep food and drinks covered and wipe up food and drink spills quickly. Watch for yellowjackets inside drink containers. Do not walk outside without shoes. If you find a wasp nest near your home, do not try to get rid of the nest yourself. Instead, call apest control professional. If you have a sting allergy, avoid activities that may disturb a nest, such as mowing the lawn or pruning a hedge. If a stinging insect is near, slowly back away and do not flail your arms. If you are being swarmedor stung, cover your mouth and nose with your hand and run inside a building or an enclosed vehicle. Medical Decision Making: Problems: Low: Acute, uncomplicated illness or injury Risk: Low: Low risk from testing/treatment Medical Decision Making Level: 3 - Low -I have reviewed and updated with the patient: allergies, VS, current medications, Past Medical History,Past Surgical History,Past Family Medical History, Past Social History. - Patient education provided today. - Discussed with patient medications that are indicated and how to use the medications and what thepotential side effects are. - Follow up with PCP in 2-3 days if symptoms progress - Warning signs of worsening condition explained to patient, Red flags discussed - Patient in stable condition after questions answered and patient verbalizes understanding - Report to ED with any worsening symptoms or life-threatening concerns Carolyn Galdamez APRN.SHEET METAL WORKER APPRENTICE If you let us know who your primary care provider is, we will send them a notification of today s visit through our electronic medical records system. Since not all providers have access to our notifications, we strongly encourage you to share the following record of today s visit with your primarycare provider at your next visit. This will help in providing you the best care. If you do not have an established Primary Care physician and would like to continue care with a [facility] Virtual Primary Care physician, please ask your provider to place a Establish PrimaryCare order. Use [employer] to manage your care, wherever you are, 23/11, on your mobile device or computer. [employer] connects you to [employer] so you can access all your health information in one place and also schedule and request virtual appointments with primary care providers. documented in this encounterPromed[facility]06-[facility] Telephone encounter Note * Telephone Encounter - Brenda Lindsay LPN - 10/05/2023 2:26 PM EDT Patient scheduled. Brenda Lindsay LPN [facility]-04[facility] Miscellaneous Notes* Telephone Encounter - Brenda Lindsay LPN - 10/05/2023 2:26 PM EDT Patient scheduled. Brenda Lindsay LPN * Telephone Encounter - Saurav Bob MD - 10/05/2023 1:26 PM EDT Please schedule yearly check up in 1-2 months. Last primary care visit was 12/23. * Telephone Encounter - Tisha Daly LPN - 10/04/2023 4:53 PM EDT Patient returned call and states he did go to the ER yesterday and was dx with a prostate infectionand that the antibiotic was changed to ciprofloxacin. He has been trying to reach urology with no response back but does note he has an appointment with them 10/11/2023 documented in this encounterPromedica [facility]06-[facility] Telephone encounter Note * Telephone Encounter - Saurav Bob MD - 10/05/2023 1:26 PM EDT Please schedule yearly check up in 1-2 months. Last primary care visit was 12/23. [facility]06-03-[facility] Telephone encounter Note* Telephone Encounter - Tisha Daly LPN - 10/04/2023 4:53 PM EDT Patient returned call and states he did go to the ER yesterday and was dx with a prostate infectionand that the antibiotic was changed to ciprofloxacin. He has been trying to reach urology with no response back but does note he has an appointment with them 10/11/2023 [facility]06-03[facility] Telephone encounter Note* Telephone Encounter - Aly Jiménez RP - 10/04/2023 2:05 PM EDT [facility] Ambulatory Pharmacy Anticoagulation Clinic Anticoagulation Episode Summary Anticoagulation Care Providers Provider Role Specialty Phone number Saurav Bob MD Referring Internal Medicine [phone] Georgie Elizabeth is a 53 year old year old male patient being evaluated today for a Lab INR. Patientis currently on the following anticoagulant(s) Warfarin. Labs PT INR (no units) Date Value 10/04/2023 2.0 07/11/2023 2.8 johanna per pt 01/26/2023 4.8 (self-reporting) INR Home CoaguChek (no units) Date Value 09/28/2023 6.0 09/14/2023 4.1 08/24/2023 2.5 Hemoglobin (g/dL) Date Value 08/03/2023 14.8 08/05/2015 14.6 Hematocrit (%) Date Value 08/03/2023 44.8 08/05/2015 43.7 Platelet Count (k/uL) Date Value 08/03/2023 281 08/05/2015 327 Creatinine (mg/dL) Date Value 08/03/2023 0.85 04/22/2023 0.87 08/19/2022 0.94 08/05/2015 1.09 08/05/2015 1.03 02/17/2015 0.99 Bilirubin, Total (mg/dL) Date Value 08/03/2023 1.3 08/05/2015 0.8 ALT (U/L) Date Value 08/03/2023 26 08/05/2015 34 AST (U/L) Date Value 08/03/2023 21 08/05/2015 23 Estimated Creatinine Clearance: 126.7 mL/min (based on SCr of 0.85 mg/dL). ALLERGIES Allergen Reactions Codeine Mental Status Change Sulfa Drugs [Sulfa * Myalgia Indication for Warfarin: Mechanical heart valve present senior care (current) use of anticoagulants History of mitral valve replacement with mechanical valve Anticoagulation Episode Summary Current INR goal: 2.5-3.5 Assessment: INR result of 2.0 is SUBtherapeutic due to: No obvious cause Patient denies any missed or decrease doses, changes in warfarin tablet color/shape/butcher helper, eating more green vegetables, or consumption of liver, green tea, Ensure, Boost, [place] Instant Breakfast, Mulit-Vitamins, and V-8. Was seen earlier today at ED at [facility]. INR was 2. Started on cipro Plan: Current Warfarin Dosing As of 10/04/2023 Full warfarin instructions: 15 mg every Mon; 12.5 mg all other days Called and spoke to patient/caregiver Advised patient to continue current weekly dose as noted above Next home INR check scheduled on 10/07/2023 Patient verbalizes understanding of the plan. Aly Jiménez RPh Clinical Pharmacist, Pharmacy Anticoagulation Clinic Pharmacy Anticoagulation Clinic Pager: [phone]. [facility]06-03-2024 Miscellaneous Notes* Telephone Encounter - Aly Jiménez RPh - 10/04/2023 2:05 PM EDT [facility] Ambulatory Pharmacy Anticoagulation Clinic Anticoagulation Episode Summary Anticoagulation Care Providers Provider Role Specialty Phone number BobSaurav avery MD Referring Internal Medicine [phone] Georgie Elizabeth is a 53 year old year old male patient being evaluated today for a Lab INR. Patientis currently on the following anticoagulant(s) Warfarin. Labs PT INR (no units) Date Value 10/04/2023 2.0 07/11/2023 2.8 johanna per pt 01/26/2023 4.8 (self-reporting) INR Home CoaguChek (no units) Date Value 09/28/2023 6.0 09/14/2023 4.1 08/24/2023 2.5 Hemoglobin (g/dL) Date Value 08/03/2023 14.8 08/05/2015 14.6 Hematocrit (%) Date Value 08/03/2023 44.8 08/05/2015 43.7 Platelet Count (k/uL) Date Value 08/03/2023 281 08/05/2015 327 Creatinine (mg/dL) Date Value 08/03/2023 0.85 04/22/2023 0.87 08/19/2022 0.94 08/05/2015 1.09 08/05/2015 1.03 02/17/2015 0.99 Bilirubin, Total (mg/dL) Date Value 08/03/2023 1.3 08/05/2015 0.8 ALT (U/L) Date Value 08/03/2023 26 08/05/2015 34 AST (U/L) Date Value 08/03/2023 21 08/05/2015 23 Estimated Creatinine Clearance: 126.7 mL/min (based on SCr of 0.85 mg/dL). ALLERGIES Allergen Reactions Codeine Mental Status Change Sulfa Drugs [Sulfa * Myalgia Indication for Warfarin: Mechanical heart valve present senior care (current) use of anticoagulants History of mitral valve replacement with mechanical valve Anticoagulation Episode Summary Current INR goal: 2.5-3.5 Assessment: INR result of 2.0 is SUBtherapeutic due to: No obvious cause Patient denies any missed or decrease doses, changes in warfarin tablet color/shape/butcher helper, eating more green vegetables, or consumption of liver, green tea, Ensure, Boost, [place] Instant Breakfast, Mulit-Vitamins, and V-8. Was seen earlier today at ED at [facility]. INR was 2. Started on cipro Plan: Current Warfarin Dosing As of 10/04/2023 Full warfarin instructions: 15 mg every Mon; 12.5 mg all other days Called and spoke to patient/caregiver Advised patient to continue current weekly dose as noted above Next home INR check scheduled on 10/07/2023 Patient verbalizes understanding of the plan. Aly Jiménez RPh Clinical Pharmacist, Pharmacy Anticoagulation Clinic Pharmacy Anticoagulation Clinic Pager: [phone]. * Telephone Encounter - Brenda Fragoso RN - 10/04/2023 1:32 PM EDT Patient calling to advise he was seen at ED this morning (10/03/2023) and was prescribed ciprofloxacin 500mg BID x 28 days for prostate infection. Cephalexin was d/c. Patient had IV ATB earlier this morning and had an INR of 2.0 in [place]. Patient can be reached at [phone]. PT INR (no units) Date Value 07/11/2023 2.8 johanna per pt 01/26/2023 4.8 (self-reporting) 01/12/2023 3.8 (self-reported) INR Home CoaguChek (no units) Date Value 09/28/2023 6.0 09/14/2023 4.1 08/24/2023 2.5 Minnie Fragoso RN Pharmacy Anticoagulation Clinic documented in this encounterPromedica [facility]06-[facility] Telephone encounter Note * Telephone Encounter - Jonathan White MA - 10/04/2023 2:03 PM EDT Notified per urologist office. Jonathan White MA [facility]06-03-2024 Miscellaneous Notes* Telephone Encounter - Jonathan White MA - 10/04/2023 2:03 PM EDT Notified per urologist office. Jonathan White MA * Telephone Encounter - Melina Rocha LPN - 10/03/2023 12:31 PM EDT Left message for patient to return call. Melina Rocha LPN * Telephone Encounter - Melina Rocha LPN - 10/03/2023 12:30 PM EDT ----- Message from Angelo Salazar APRN.SHEET METAL WORKER APPRENTICE sent at 10/03/2023 10:31 AM EDT ----- Please notify patient that the urine culture was positive for urinary tract infection and he is on the appropriate antibiotic. He should follow-up with urology as discussed and return to either PCP or the local ER for any new or worsening concerns. documented in this encounterPromedica [facility]06-03-[facility] Telephone encounter Note * Telephone Encounter - Brenda Fragoso RN - 10/04/2023 1:32 PM EDT Patient calling to advise he was seen at ED this morning (10/03/2023) and was prescribed ciprofloxacin 500mg BID x 28 days for prostate infection. Cephalexin was d/c. Patient had IV ATB earlier this morning and had an INR of 2.0 in [place]. Patient can be reached at [phone]. PT INR (no units) Date Value 07/11/2023 2.8 johanna per pt 01/26/2023 4.8 (self-reporting) 01/12/2023 3.8 (self-reported) INR Home CoaguChek (no units) Date Value 09/28/2023 6.0 09/14/2023 4.1 08/24/2023 2.5 Minnie Fragoso RN Pharmacy Anticoagulation Clinic [facility]06-02-2024 Telephone encounter Note* Telephone Encounter - Melina Rocha LPN - 10/03/2023 12:31 PM EDT Left message for patient to return call. Melina Rocha LPN [facility]06-02-2024 Telephone encounter Note* Telephone Encounter - Melina Rocha LPN - 10/03/2023 12:30 PM EDT ----- Message from Angelo Salazar APRN.SHEET METAL WORKER APPRENTICE sent at 10/03/2023 10:31 AM EDT ----- Please notify patient that the urine culture was positive for urinary tract infection and he is on the appropriate antibiotic. He should follow-up with urology as discussed and return to either PCP or the local ER for any new or worsening concerns. [facility]05-31-[facility] History of Present illness Narrative* Angelo Salazar APRN.MANDY - 10/01/2023 7:21 AM EDT This note was created using NoteWriter. Subjective Georgie Elizabeth is a 53 year old male. HPI In pt had a urethral repair for a stricture. He was seen here on September 19 and diagnosed with UTI and started on Macrobid. Urine culture showed russo sensitivity. The next day he started to feel feverish and as he does have a mechanical heart valve he was seen at the ER where he was given a dose of IV antibiotics and discharged home with no antibiotics added. Symptoms seemed to improve but pain again returned yesterday. Pt has not followed up with urology but will soon. Review of Systems Constitutional: Negative for fatigue and fever. Gastrointestinal: Negative for abdominal pain. Genitourinary: Positive for dysuria and frequency. Objective BP 110/80 Pulse 80 Temp 36.2 C (97.1 F) Resp 19 Wt 106.6 kg (235 lb 0.2 oz) SpO2 98% BMI 27.87 kg/m Physical Exam Vitals and nursing note reviewed. Constitutional: General: He is not in acute distress. Appearance: Normal appearance. He is not ill-appearing. HENT: Head: Normocephalic. Mouth/Throat: Mouth: Mucous membranes are moist. Eyes: Conjunctiva/sclera: Conjunctivae normal. Cardiovascular: Rate and Rhythm: Normal rate and regular rhythm. Pulmonary: Effort: Pulmonary effort is normal. Breath sounds: Normal breath sounds. Musculoskeletal: General: Normal range of motion. Cervical back: Normal range of motion. Skin: General: Skin is warm and dry. Neurological: General: No focal deficit present. Mental Status: He is alert. Psychiatric: Mood and Affect: Mood normal. Behavior: Behavior normal. Assessment and Plan ASSESSMENT/PLAN: 1. Urinary frequency - ICD9: 788.41, ICD10: R35.0 (primary diagnosis) recurrent - UA positive for kavya esterase, hematuria, and nitrates - Send urine for culture - Begin treatment with Keflex TID for 7 days - Patient education for prevention given Patient encouraged to contact his urologist today and arrange for follow-up - UA DIP, URINE (POC) - URINE CULTURE - CEPHALEXIN 500 MG CAPSULE 2. Recurrent UTI (urinary tract infection) - ICD9: 599.0, ICD10: N39.0 As above Angelo Salazar APRN.MANDY documented in this encounterProm[facility] Telephone encounter Note * Telephone Encounter - Brenda Fragoso RN - 09/28/2023 9:07 AM EDT Tray Sanchez left a VM regarding the patient's INR result on 09/28/2023. Noted result has been addressed below. Brenda Fragoso RN [facility]05-28-[facility] Miscellaneous Notes* Telephone Encounter - Brenda Fragoso RN - 09/28/2023 9:07 AM EDT Tray Sanchez left a VM regarding the patient's INR result on 09/28/2023. Noted result has been addressed below. Brenda Fragoso RN * Telephone Encounter - Aly Jiménez [facility] - 09/28/2023 7:52 AM EDT [facility] Clinic Anticoagulation Episode Summary Anticoagulation Care Providers Provider Role Specialty Phone number Saurav Bob MD Referring Internal Medicine [phone] Georgie Elizabeth is a 53 year old year old male patient being evaluated today for a Telemanagement visit. Patient is currently on the following anticoagulant(s) Warfarin. Labs PT INR (no units) Date Value 07/11/2023 2.8 johanna per pt 01/26/2023 4.8 (self-reporting) 01/12/2023 3.8 (self-reported) INR Home CoaguChek (no units) Date Value 09/28/2023 6.0 09/14/2023 4.1 08/24/2023 2.5 Hemoglobin (g/dL) Date Value 08/03/2023 14.8 08/05/2015 14.6 Hematocrit (%) Date Value 08/03/2023 44.8 08/05/2015 43.7 Platelet Count (k/uL) Date Value 08/03/2023 281 08/05/2015 327 Creatinine (mg/dL) Date Value 08/03/2023 0.85 04/22/2023 0.87 08/19/2022 0.94 08/05/2015 1.09 08/05/2015 1.03 02/17/2015 0.99 Bilirubin, Total (mg/dL) Date Value 08/03/2023 1.3 08/05/2015 0.8 ALT (U/L) Date Value 08/03/2023 26 08/05/2015 34 AST (U/L) Date Value 08/03/2023 21 08/05/2015 23 Estimated Creatinine Clearance: 137 mL/min (based on SCr of 0.85 mg/dL). ALLERGIES Allergen Reactions Codeine Mental Status Change Sulfa Drugs [Sulfa * Myalgia Indication for Warfarin: Anticoagulation Episode Summary Current INR goal: 2.5-3.5 Assessment: INR result of 6.0 is SUPRAtherapeutic due to: recent infection- UTI Bleeding checklist negative Plan: Current Warfarin Dosing As of 09/28/2023 Full warfarin instructions: 09/27: Hold; 09/28: Hold; Otherwise 15 mg every Mon; 12.5 mg all other days Called and spoke to patient/caregiver Advised patient to hold 2 doses then decrease current regimen as noted above Next home INR check scheduled on 10/05/2023 Patient advised to go to ED if any bleeding or unusual bruising. Patient verbalizes understanding of the plan. Aly Jiménez RPh Clinical Pharmacist, Pharmacy Anticoagulation Clinic Pharmacy Anticoagulation Clinic Pager: [phone]. documented in this encounterPromedica [facility]05-28-[facility]24 Telephone encounter Note * Telephone Encounter - Aly Jiménez RPh - 09/28/2023 7:52 AM EDT [facility] Anticoagulation Episode Summary Anticoagulation Care Providers Provider Role Specialty Phone number Saurav Bob MD Referring Internal Medicine [phone] Georgie Elizabeth is a 53 year old year old male patient being evaluated today for a Telemanagement visit. Patient is currently on the following anticoagulant(s) Warfarin. Labs PT INR (no units) Date Value 07/11/2023 2.8 johanna per pt 01/26/2023 4.8 (self-reporting) 01/12/2023 3.8 (self-reported) INR Home CoaguChek (no units) Date Value 09/28/2023 6.0 09/14/2023 4.1 08/24/2023 2.5 Hemoglobin (g/dL) Date Value 08/03/2023 14.8 08/05/2015 14.6 Hematocrit (%) Date Value 08/03/2023 44.8 08/05/2015 43.7 Platelet Count (k/uL) Date Value 08/03/2023 281 08/05/2015 327 Creatinine (mg/dL) Date Value 08/03/2023 0.85 04/22/2023 0.87 08/19/2022 0.94 08/05/2015 1.09 08/05/2015 1.03 02/17/2015 0.99 Bilirubin, Total (mg/dL) Date Value 08/03/2023 1.3 08/05/2015 0.8 ALT (U/L) Date Value 08/03/2023 26 08/05/2015 34 AST (U/L) Date Value 08/03/2023 21 08/05/2015 23 Estimated Creatinine Clearance: 137 mL/min (based on SCr of 0.85 mg/dL). ALLERGIES Allergen Reactions Codeine Mental Status Change Sulfa Drugs [Sulfa * Myalgia Indication for Warfarin: Anticoagulation Episode Summary Current INR goal: 2.5-3.5 Assessment: INR result of 6.0 is SUPRAtherapeutic due to: recent infection- UTI Bleeding checklist negative Plan: Current Warfarin Dosing As of 09/28/2023 Full warfarin instructions: 09/27: Hold; 09/28: Hold; Otherwise 15 mg every Mon; 12.5 mg all other days Called and spoke to patient/caregiver Advised patient to hold 2 doses then decrease current regimen as noted above Next home INR check scheduled on 10/05/2023 Patient advised to go to ED if any bleeding or unusual bruising. Patient verbalizes understanding of the plan. Aly Jiménez RPh Clinical Pharmacist, Pharmacy Anticoagulation Clinic Pharmacy Anticoagulation Clinic Pager: [phone]. [facility] History of Present illness Narrative* Georgie Reynoso - 09/23/2023 2:23 PM EDT Initial Podiatric Office Visit: Chief Complaint: This 53 year old male who presents with chief complaint:callus of b/l feet HPI Patient presents to clinic for evaluation of b/l feet Complains of callus to b/l hallux. Feels the flatfoot is leading to increased pressure of b/l feet. Has tried over the counter orthotics which does provide some relief. He uses powerstep inserts. Also complains of ingrowing toenails at time to b/l feet. PAIN EVALUATION No data found in the last 1 encounters. 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 [phone] Depression with anxiety obsessive compulsive disorder Gout 12/22/2022 HTN (hypertension) Hyperbilirubinemia 12/22/2022 Hyperlipemia Hypertension 11/16/2013 -cont home meds Hypertrophic obstructive cardiomyopathy (HCC) 2012 s/p myectomy Mitral stenosis 2012 s/p re-do MVR with mechanical valve 11/13/13 Nephrolithiasis 2017 Obstructive sleep apnea 2012 Urethral stricture Current Outpatient Medications Medication Sig nitrofurantoin monohydrate and macrocrystal (MACROBID) 100 mg capsule Take 1 capsule by mouth two times a day for 7 days. mupirocin (BACTROBAN) 2 % ointment Apply to affected area three times a day for 10 days. rosuvastatin (CRESTOR) 20 mg tablet Take 1 tablet by mouth once daily. CPAP/BIPAP/OTHER Type .CPAPSettings into a note to see current settings/supplies/DME information. pantoprazole DR (PROTONIX) 40 mg tablet Take 1 tablet by mouth once daily. On empty stomach at least 30 minutes before eating. warfarin (COUMADIN) 10 mg tablet Take 15 mg every Mon, Wed; 12.5 mg all other days or as directed by anticoagulation clinic. (Takes with 5 mg tablets) warfarin (COUMADIN) 5 mg tablet Take 15 mg every Mon, Wed; 12.5 mg all other days or as directed byanticoagulation clinic. (Takes with 10 mg tablets) metoprolol succinate ER (TOPROL XL) 50 mg 24 hr tablet Take 1.5 tablets by mouth once daily. coenzyme Q10 (CO Q-10) 100 mg cap capsule Take 1 capsule by mouth once daily. enoxaparin (LOVENOX) 120 mg/0.8 mL injection Inject 120 mg subcutaneously. cholestyramine (QUESTRAN) 4 gram packet Take 1 Packet by mouth every evening. Per Dr. Kezia Madison. CPAP/BIPAP/OTHER Continue ASV with current settings of EPAP 5 cm H2O with PS 4- 12 cmH2O. Lifetime supplies for ASV, including patient preferred mask, head gear, heated tubing, humidity, filters, chin strap. Dx: Obstructive Sleep Apnea G47.33 DME: [facility] aspirin 81 mg chewable tablet Take 1 tablet by mouth once daily. BIPAP Please service machine, humidifier causing issues. Lifetime supplies G47.33 DOREEN BIPAP ASV EPAP min 5 cm H20, PS 4-12 cm H20. Mask fitting to consider Dream wear FFM. Provide lifetime supplies including tubing, heated humidity, filters. Dx: G47.33 & G47.37. BIPAP Fax 30 day download report to [phone] to assess usage and residual AHI after receipt of replacement ASV. Melatonin 5 mg tab Take by mouth as needed. ACETAMINOPHEN (TYLENOL EXTRA STRENGTH ORAL) Take by mouth as needed. Current Facility-Administered Medications Medication Dose Route Frequency perflutren lipid microspheres 1.3 mL in NaCl (PF) 0.9% 10 mL injection (DEFINITY) INTRAVENOUS DIRECTED PRN sodium chloride 0.9 % (flush) 10 mL (BD POSIFLUSH) 10 mL INTRAVENOUS DIRECTED PRN ALLERGIES Allergen Reactions Codeine Mental Status Change Sulfa Drugs [Sulfa * Myalgia PAST SURGICAL HISTORY Procedure Laterality Date ADENOIDECTOMY HX 05/03/1986 COLONOSCOPY 05/03/2011 COLONOSCOPY SCREENING 01/08/2022 EGD DIAGNOSTIC 11/10/2022 PAST SURGICAL HISTORY OF 01/23/2013 mitral valve repair, #32 Valerie ring, ligation of left atrial appendage PAST SURGICAL HISTORY OF 11/13/2013 Myectomy and MVr with de leon band and valvuloplasty. PAST SURGICAL HISTORY OF 11/20/2013 redo sternotomy MVR with mechanical ON X valve (27/29 mm). PAST SURGICAL HISTORY OF 01/29/2015 BMG Urethroplasty TONSILLECTOMY HX 05/03/1986 FAMILY HISTORY Problem Relation Age of Onset other (Diverticulosis) Mother Heart Father [place], sudden 50's Colon Cancer Sister Heart Paternal Grandmother Social History Tobacco Use Smoking status: Never Smokeless tobacco: Never Vaping Use Vaping Use: Never used Substance Use Topics Alcohol use: No Comment: rarely Drug use: Never REVIEW OF SYSTEMS GENERAL: Negative for Malaise, significant weight loss, fever RESPIRATORY: Negative for cough, wheezing and shortness of breath CARDIOVASCULAR: Negative for chest pain, leg swelling and palpitations GI: Negative for abdominal discomfort, blood in stools or black stools and change in bowel habits : Negative for dysuria, frequency and incontinence MUSCULOSKELETAL: Negative for joint pain or swelling, back pain, and muscle pain. SKIN: Negative for lesions, rash, and itching. HEMATOLOGY/LYMPHOLOGY Negative for prolonged bleeding, bruising easily, and swollen nodes. ENDOCRINE: Negative for cold or heat intolerance, polyuria, polydipsia and goiter. NEURO: negative Physical Exam: Constitutional: Pt is a well developed 53 year old male who is alert, oriented and cooperative Eyes: Following during examination. No redness or drainage. Respiratory: RR normal and nonlabored. Even breathing. No evidence of distress or shortness of breath. Psychology: Patient is engaged during conversation. Normal affect and mood. Does not appear depressed or anxious during encounter. Vascular: Dorsalis pedis and posterior tibial pulses palpable as b/l Capillary Fill time < 5 seconds to digits 1-5 b/l Skin temperature warm to warm proximal to distal b/l Hair growth present to digits Neurological: intact light touch/epicritic sensation b/l intact protective sensation no significant neurological deficits Dermatological: B/l hallux nails appear incurvated. No signs of infection. Webspaces clean and dry 1-4 b/l. Skin appears well hydrated and supple. good color, texture, turgor. No open lesions present. Callus presentto left hallux. Musculoskeletal/Orthopaedic: Patient has pain to palpation of left hallux at site of callus Foot type is pronated structurally AJ ROM is full with knee extended and flexed 1st MPJ is full when loaded and no pain or crepitus are noted with ROM. MTJ, STJ are full and free of pain and crepitus. +5/5 muscle strength dorsiflexion, plantarflexion, inversion, eversion b/l Radiographs: n/a ASSESSMENT: (M76.829) Posterior tibial tendon dysfunction (primary encounter diagnosis) (L84) Callus PLAN: 1. History and physical examination performed. 2. Discussed flatfoot of b/l lower extremity. Discussed over the counter vs custom orthotics. Patient has significant flatfoot deformity one that I feel that custom orthotics will be a better option.Custom orthotics were prescribed. 3. Callus to left hallux reduced with 15 blade and dremmel. 4. Discussed ingrowing toenail of b/l hallux. No signs of infection. If these cause issues in future, could consider partial or total nail matrixectomy. Georgie Reynoso DPM Podiatry [address] [facility] [address] Dept: [phone] Dept * Lindsey Blank LPN - 09/23/2023 2:08 PM EDT AMB ROOMING INTAKE FLOWSHEET DATA Patient presents with: Left Foot - Callous, New Right Foot - Callous, New Lindsey Blank LPN documented in this encounterPromedica [facility]05-20-[facility] History of Present illness Narrative* Jostin Barnes APRN.[employer]HEET [employer] WORKER APPRENTICE - 09/20/2023 4:22 PM EDT Images from the original note were not included. Subjective HPI HPI Georgie Elizabeth is a 53 year old male who presents today for CC of urinary urgency, burning, frequency, odor. This started 1 day ago. Has tried nothing for relief. Symptoms are worsened by nothing. Risk factors hx of uti, urethral surgery. Hit right ear on barn door yesterday, bleeding has stopped. 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 [phone] Depression with anxiety obsessive compulsive disorder Gout 12/22/2022 HTN (hypertension) Hyperbilirubinemia 12/22/2022 Hyperlipemia Hypertension 11/16/2013 -cont home meds Hypertrophic obstructive cardiomyopathy (HCC) 2012 s/p myectomy Mitral stenosis 2013 s/p re-do MVR with mechanical valve 11/13/13 Nephrolithiasis 2017 Obstructive sleep apnea 2011 Urethral stricture PAST SURGICAL HISTORY Procedure Laterality Date ADENOIDECTOMY HX 05/03/1986 COLONOSCOPY 05/03/2011 COLONOSCOPY SCREENING 01/08/2022 EGD DIAGNOSTIC 11/10/2022 PAST SURGICAL HISTORY OF 01/23/2013 mitral valve repair, #32 Valerie ring, ligation of left atrial appendage PAST SURGICAL HISTORY OF 11/13/2013 Myectomy and MVr with de leon band and valvuloplasty. PAST SURGICAL HISTORY OF 11/20/2013 redo sternotomy MVR with mechanical ON X valve (27/29 mm). PAST SURGICAL HISTORY OF 01/29/2015 BMG Urethroplasty TONSILLECTOMY HX 05/03/1986 ALLERGIES Codeine and Sulfa Drugs [Sulfa (Sulfonamide Antibiotics)] MEDICATIONS hydrocortisone (ANUSOL-HC) 2.5 % rectal cream^by RECTAL route two times a day for 7 days.^Disp: 28 g^Rfl: 0 rosuvastatin (CRESTOR) 20 mg tablet^Take 1 tablet by mouth once daily.^Disp: 90 tablet^Rfl: 0 CPAP/BIPAP/OTHER^Type .CPAPSettings into a note to see current settings/supplies/DME information.^Disp: 1 Each^Rfl: [address] (PROTONIX) 40 mg tablet^Take 1 tablet by mouth once daily. On empty stomach at least 30 minutes before eating.^Disp: 90 tablet^Rfl: 2 warfarin (COUMADIN) 10 mg tablet^Take 15 mg every Mon, Wed; 12.5 mg all other days or as directed by anticoagulation clinic. (Takes with 5 mg tablets)^Disp: 90 tablet^Rfl: 2 warfarin (COUMADIN) 5 mg tablet^Take 15 mg every Mon, Wed; 12.5 mg all other days or as directed byanticoagulation clinic. (Takes with 10 mg tablets)^Disp: 90 tablet^Rfl: 1 metoprolol succinate ER (TOPROL XL) 50 mg 24 hr tablet^Take 1.5 tablets by mouth once daily.^Disp: 135 tablet^Rfl: 3 coenzyme Q10 (CO Q-10) 100 mg cap capsule^Take 1 capsule by mouth once daily.^Disp: ^Rfl: enoxaparin (LOVENOX) 120 mg/0.8 mL injection^Inject 120 mg subcutaneously.^Disp: ^Rfl: cholestyramine (QUESTRAN) 4 gram packet^Take 1 Packet by mouth every evening. Per Dr. Kezia Madison.^Disp: ^Rfl: CPAP/BIPAP/OTHER^Continue ASV with current settings of EPAP 5 cm H2O with PS 4- 12 cmH2O. Lifetime supplies for ASV, including patient preferred mask, head gear, heated tubing, humidity, filters, chin strap. Dx: Obstructive Sleep Apnea G47.33 DME: [facility] ^Disp: 1 Each^Rfl: 0 aspirin 81 mg chewable tablet^Take 1 tablet by mouth once daily.^Disp: ^Rfl: BIPAP^Please service machine, humidifier causing issues. Lifetime supplies G47.33 DOREEN^Disp: 1 Device^Rfl: 0 BIPAP^ASV EPAP min 5 cm H20, PS 4-12 cm H20. Mask fitting to consider Dream wear FFM. Provide lifetime supplies including tubing, heated humidity, filters. Dx: G47.33 & G47.37.^Disp: 1 Device^Rfl: 0 BIPAP^Fax 30 day download report to [phone] to assess usage and residual AHI after receipt of replacement ASV.^Disp: 1 Device^Rfl: 0 Melatonin 5 mg tab^Take by mouth as needed. ^Disp: ^Rfl: ACETAMINOPHEN (TYLENOL EXTRA STRENGTH ORAL)^Take by mouth as needed.^Disp: ^Rfl: FAMILY HISTORY Problem Relation Age of Onset other (Diverticulosis) Mother Heart Father [place], sudden 50's Colon Cancer Sister Heart Paternal Grandmother Social History Tobacco Use Smoking status: Never Smokeless tobacco: Never Vaping Use Vaping Use: Never used Substance Use Topics Alcohol use: No Comment: rarely Drug use: Never Review of Systems Constitutional: Negative for chills, fever and weight loss. Respiratory: Negative for cough, shortness of breath and wheezing. Cardiovascular: Negative for chest pain and palpitations. Gastrointestinal: Negative for abdominal pain, blood in stool, constipation, diarrhea, heartburn, melena, nausea and vomiting. Genitourinary: Positive for dysuria, frequency and urgency. Negative for flank pain and hematuria. Objective Blood pressure 110/72, pulse 79, temperature 37.2 C (99 F), temperature source Tympanic, resp. rate16, weight 107.3 kg (236 lb 8.9 oz), SpO2 97%. Physical Exam Constitutional: General: He is not in acute distress. Appearance: Normal appearance. He is not toxic-appearing. HENT: Ears: Cardiovascular: Rate and Rhythm: Normal rate and regular rhythm. Heart sounds: Normal heart sounds. Pulmonary: Effort: Pulmonary effort is normal. Breath sounds: Normal breath sounds. Abdominal: General: Bowel sounds are normal. Palpations: Abdomen is soft. Tenderness: There is no abdominal tenderness. Skin: General: Skin is warm and dry. ASSESSMENT/PLAN: 1. Urinary frequency - ICD9: 788.41, ICD10: R35.0 (primary diagnosis) acute - UA positive for kavya esterase, hematuria, proteinuria, and nitrates - Send urine for culture - Begin treatment with Macrobid 100 mg BID for 7 days - Patient education for prevention given - UA DIP, URINE (POC) - URINE CULTURE - NITROFURANTOIN MONOHYDRATE & MACROCRYSTAL 100 MG ORAL CAP 2. Injury of ear, initial encounter - ICD9: 959.09, ICD10: S09.91XA Keep clean Wash soap/water at least daily and when soiled F/u for s/s infection. - MUPIROCIN 2 % TOPICAL OINTMENT oJstin Barnes APRN.SHEET METAL WORKER APPRENTICE documented in this encounterPromedica [facility]05-[facility] Telephone encounter Note * Telephone Encounter - Aly Jiménez [facility] - 09/14/2023 4:05 PM EDT [facility] Clinic Anticoagulation Episode Summary Anticoagulation Care Providers Provider Role Specialty Phone number Saurav Bob MD Referring Internal Medicine [phone] Georgie Elizabeth is a 53 year old year old male patient being evaluated today for a Telemanagement visit. Patient is currently on the following anticoagulant(s) Warfarin. Labs PT INR (no units) Date Value 07/11/2023 2.8 johanna per pt 01/26/2023 4.8 (self-reporting) 01/12/2023 3.8 (self-reported) INR Home CoaguChek (no units) Date Value 09/14/2023 4.1 08/24/2023 2.5 08/10/2023 4.1 Hemoglobin (g/dL) Date Value 08/03/2023 14.8 08/05/2015 14.6 Hematocrit (%) Date Value 08/03/2023 44.8 08/05/2015 43.7 Platelet Count (k/uL) Date Value 08/03/2023 281 08/05/2015 327 Creatinine (mg/dL) Date Value 08/03/2023 0.85 04/22/2023 0.87 08/19/2022 0.94 08/05/2015 1.09 08/05/2015 1.03 02/17/2015 0.99 Bilirubin, Total (mg/dL) Date Value 08/03/2023 1.3 08/05/2015 0.8 ALT (U/L) Date Value 08/03/2023 26 08/05/2015 34 AST (U/L) Date Value 08/03/2023 21 08/05/2015 23 Estimated Creatinine Clearance: 137.2 mL/min (based on SCr of 0.85 mg/dL). ALLERGIES Allergen Reactions Codeine Mental Status Change Sulfa Drugs [Sulfa * Myalgia Indication for Warfarin: Anticoagulation Episode Summary Current INR goal: 2.5-3.5 Assessment: INR result of 4.1 is SUPRAtherapeutic due to: unknown cause - did not speak to patient Plan: Current Warfarin Dosing As of 09/14/2023 Full warfarin instructions: 09/13: 7.5 mg; Otherwise 15 mg every Mon, Wed; 12.5 mg all other days Left voice message Advised patient to decrease dose for 1 day only then resume weekly regimen as noted above Next home INR check scheduled on 09/28/2023 Aly Jiménez RPh Clinical Pharmacist, Pharmacy Anticoagulation Clinic Pharmacy Anticoagulation Clinic Pager: [phone]. [facility] Miscellaneous Notes* Telephone Encounter - Aly Jiménez RPh - 09/14/2023 4:05 PM EDT [facility] An[facility]agulation Clinic Anticoagulation Episode Summary Anticoagulation Care Providers Provider Role Specialty Phone number Saurav Bob MD Referring Internal Medicine [phone] Georgie Elizabeth is a 53 year old year old male patient being evaluated today for a Telemanagement visit. Patient is currently on the following anticoagulant(s) Warfarin. Labs PT INR (no units) Date Value 07/11/2023 2.8 johanna per pt 01/26/2023 4.8 (self-reporting) 01/12/2023 3.8 (self-reported) INR Home CoaguChek (no units) Date Value 09/14/2023 4.1 08/24/2023 2.5 08/10/2023 4.1 Hemoglobin (g/dL) Date Value 08/03/2023 14.8 08/05/2015 14.6 Hematocrit (%) Date Value 08/03/2023 44.8 08/05/2015 43.7 Platelet Count (k/uL) Date Value 08/03/2023 281 08/05/2015 327 Creatinine (mg/dL) Date Value 08/03/2023 0.85 04/22/2023 0.87 08/19/2022 0.94 08/05/2015 1.09 08/05/2015 1.03 02/17/2015 0.99 Bilirubin, Total (mg/dL) Date Value 08/03/2023 1.3 08/05/2015 0.8 ALT (U/L) Date Value 08/03/2023 26 08/05/2015 34 AST (U/L) Date Value 08/03/2023 21 08/05/2015 23 Estimated Creatinine Clearance: 137.2 mL/min (based on SCr of 0.85 mg/dL). ALLERGIES Allergen Reactions Codeine Mental Status Change Sulfa Drugs [Sulfa * Myalgia Indication for Warfarin: Anticoagulation Episode Summary Current INR goal: 2.5-3.5 Assessment: INR result of 4.1 is SUPRAtherapeutic due to: unknown cause - did not speak to patient Plan: Current Warfarin Dosing As of 09/14/2023 Full warfarin instructions: 09/13: 7.5 mg; Otherwise 15 mg every Mon, Wed; 12.5 mg all other days Left voice message Advised patient to decrease dose for 1 day only then resume weekly regimen as noted above Next home INR check scheduled on 09/28/2023 Aly Jiménez [facility] Clinical Pharmacist, Pharmacy Anticoagulation Clinic Pharmacy Anticoagulation Clinic Pager: [phone]. documented in this encounterPromedica Defiance [facility]05-13-[facility] History of Present illness Narrative* Herbie Shultz MD - 09/13/2023 12:51 PM EDT Patient presents with: Rectal Problem: x 3 weeks HPI: Anal pain: Duration: 3 weeks. Has had hemorrhoids remotely before. Location: anus Character: painful Radiation: No. 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 [phone] Depression with anxiety obsessive compulsive disorder Gout 12/22/2022 HTN (hypertension) Hyperbilirubinemia 12/22/2022 Hyperlipemia Hypertension 11/16/2013 -cont home meds Hypertrophic obstructive cardiomyopathy (HCC) 2012 s/p myectomy Mitral stenosis 2012 s/p re-do MVR with mechanical valve 11/13/13 Nephrolithiasis 2017 Obstructive sleep apnea 2012 Urethral stricture PAST SURGICAL HISTORY Procedure Laterality Date ADENOIDECTOMY HX 05/03/1986 COLONOSCOPY 05/03/2011 COLONOSCOPY SCREENING 01/08/2022 EGD DIAGNOSTIC 11/10/2022 PAST SURGICAL HISTORY OF 01/23/2013 mitral valve repair, #32 Valerie ring, ligation of left atrial appendage PAST SURGICAL HISTORY OF 11/13/2013 Myectomy and MVr with de leon band and valvuloplasty. PAST SURGICAL HISTORY OF 11/20/2013 redo sternotomy MVR with mechanical ON X valve (27/29 mm). PAST SURGICAL HISTORY OF 01/29/2015 BMG Urethroplasty TONSILLECTOMY HX 05/03/1986 MEDICATIONS: rosuvastatin (CRESTOR) 20 mg tablet^Take 1 tablet by mouth once daily.^Disp: 90 tablet^Rfl: [address] (PROTONIX) 40 mg tablet^Take 1 tablet by mouth once daily. On empty stomach at least 30 minutes before eating.^Disp: 90 tablet^Rfl: 2 warfarin (COUMADIN) 10 mg tablet^Take 15 mg every Mon, Wed; 12.5 mg all other days or as directed by anticoagulation clinic. (Takes with 5 mg tablets)^Disp: 90 tablet^Rfl: 2 warfarin (COUMADIN) 5 mg tablet^Take 15 mg every Mon, Wed; 12.5 mg all other days or as directed byanticoagulation clinic. (Takes with 10 mg tablets)^Disp: 90 tablet^Rfl: 1 metoprolol succinate ER (TOPROL XL) 50 mg 24 hr tablet^Take 1.5 tablets by mouth once daily.^Disp: 135 tablet^Rfl: 3 coenzyme Q10 (CO Q-10) 100 mg cap capsule^Take 1 capsule by mouth once daily.^Disp: ^Rfl: enoxaparin (LOVENOX) 120 mg/0.8 mL injection^Inject 120 mg subcutaneously.^Disp: ^Rfl: cholestyramine (QUESTRAN) 4 gram packet^Take 1 Packet by mouth every evening. Per Dr. Mast Friend.^Disp: ^Rfl: aspirin 81 mg chewable tablet^Take 1 tablet by mouth once daily.^Disp: ^Rfl: BIPAP^ASV EPAP min 5 cm H20, PS 4-12 cm H20. Mask fitting to consider Dream wear FFM. Provide lifetime supplies including tubing, heated humidity, filters. Dx: G47.33 & G47.37.^Disp: 1 Device^Rfl: 0 Melatonin 5 mg tab^Take by mouth as needed. ^Disp: ^Rfl: ACETAMINOPHEN (TYLENOL EXTRA STRENGTH ORAL)^Take by mouth as needed.^Disp: ^Rfl: CPAP/BIPAP/OTHER^Type .CPAPSettings into a note to see current settings/supplies/DME information.^Disp: 1 Each^Rfl: 0 CPAP/BIPAP/OTHER^Continue ASV with current settings of EPAP 5 cm H2O with PS 4- 12 cmH2O. Lifetime supplies for ASV, including patient preferred mask, head gear, heated tubing, humidity, filters, chin strap. Dx: Obstructive Sleep Apnea G47.33 DME: [facility] ^Disp: 1 Each^Rfl: 0 BIPAP^Please service machine, humidifier causing issues. Lifetime supplies G47.33 DOREEN^Disp: 1 Device^Rfl: 0 BIPAP^Fax 30 day download report to [phone] to assess usage and residual AHI after receipt of replacement ASV.^Disp: 1 Device^Rfl: 0 ALLERGIES: ALLERGIES Allergen Reactions Codeine Mental Status Change Sulfa Drugs [Sulfa * Myalgia VITALS: BP 128/72 Pulse 80 Temp 36.9 C (98.4 F) Resp 16 Wt 107.5 kg (236 lb 15.9 oz) SpO2 97% BMI 28.10 kg/m PHYSICAL EXAM: GEN: pleasant, no acute distress, alert HEENT: PERRL, EOMI, MMM NECK: supple, HEART: regular rate, regular rhythm, no murmurs LUNGS: clear to auscultation, no wheezes or crackles, no increased WOB ABD: soft, non-distended, no masses palpated, non-tender RECTAL: 5mm tender hemorrhoid inferior anal verge. No erythema or induration. EXT: no clubbing, no cyanosis, no edema ASSESSMENT/PLAN: 1. External hemorrhoid - ICD9: 455.3, ICD10: K64.4 Sitz baths twice a day and after bowel movements. Maintain formed but not hard stools. - HYDROCORTISONE 2.5 % TOPICAL CREAM WITH PERINEAL APPLICATOR Follow up with general surgery if not resolving. Herbie Shultz MD documented in this encounterPromedica [facility]05-10-[facility]24 Telephone encounter Note * Telephone Encounter - Karuna Martinezr Jackelin Whitman - 09/10/2023 4:04 PM EDT Call from patient requesting refill. Requested Prescriptions Pending Prescriptions Disp Refills rosuvastatin (CRESTOR) 20 mg tablet 90 tablet 0 Sig: Take 1 tablet by mouth once daily. Patient last seen 05/04/2023 Jackelin Whitman [facility] Work Phone: [phone] Miscellaneous Notes* Telephone Encounter - Jackelin Tucker - 09/10/2023 4:04 PM EDT Call from patient requesting refill. Requested Prescriptions Pending Prescriptions Disp Refills rosuvastatin (CRESTOR) 20 mg tablet 90 tablet 0 Sig: Take 1 tablet by mouth once daily. Patient last seen 05/04/2023 Jackelin Board Gater Medvictor m documented in this encounterPromedica Def[facility]04-23-2024 Telephone encounter Note * Telephone Encounter - Aly Jiménez [facility] - 08/24/2023 4:21 PM EDT [facility] Anticoagulation Episode Summary Anticoagulation Care Providers Provider Role Specialty Phone number Saurav Bob MD Referring Internal Medicine [phone] Georgie Elizabeth is a 53 year old year old male patient being evaluated today for a Telemanagement visit. Patient is currently on the following anticoagulant(s) Warfarin. Labs PT INR (no units) Date Value 07/11/2023 2.8 johanna per pt 01/26/2023 4.8 (self-reporting) 01/12/2023 3.8 (self-reported) INR (no units) Date Value 07/27/2023 2.0 INR Home CoaguChek (no units) Date Value 08/24/2023 2.5 08/10/2023 4.1 06/29/2023 3.0 Hemoglobin (g/dL) Date Value 08/03/2023 14.8 08/05/2015 14.6 Hematocrit (%) Date Value 08/03/2023 44.8 08/05/2015 43.7 Platelet Count (k/uL) Date Value 08/03/2023 281 08/05/2015 327 Creatinine (mg/dL) Date Value 08/03/2023 0.85 04/22/2023 0.87 08/19/2022 0.94 08/05/2015 1.09 08/05/2015 1.03 02/17/2015 0.99 Bilirubin, Total (mg/dL) Date Value 08/03/2023 1.3 08/05/2015 0.8 ALT (U/L) Date Value 08/03/2023 26 08/05/2015 34 AST (U/L) Date Value 08/03/2023 21 08/05/2015 23 Estimated Creatinine Clearance: 126.7 mL/min (based on SCr of 0.85 mg/dL). ALLERGIES Allergen Reactions Codeine Mental Status Change Sulfa Drugs [Sulfa * Myalgia Indication for Warfarin: Anticoagulation Episode Summary Current INR goal: 2.5-3.5 Assessment: INR result of 2.5 is therapeutic Plan: Current Warfarin Dosing As of 08/24/2023 Full warfarin instructions: 15 mg every Mon, Wed; 12.5 mg all other days Sent [employer] message Advised patient to continue current weekly dose as noted above Next home INR check scheduled on 09/07/2023 Aly Jiménez RPh Clinical Pharmacist, Pharmacy Anticoagulation Clinic Pharmacy [facility] Pager: [phone]. [facility]04-23-2024 Miscellaneous Notes* Telephone Encounter - Ayl Jiménez RPh - 08/24/2023 4:21 PM EDT [facility] Anticoagulation Episode Summary Anticoagulation Care Providers Provider Role Specialty Phone number Saurav Bob MD Referring Internal Medicine [phone] Georgie Elizabeth is a 53 year old year old male patient being evaluated today for a Telemanagement visit. Patient is currently on the following anticoagulant(s) Warfarin. Labs PT INR (no units) Date Value 07/11/2023 2.8 johanna per pt 01/26/2023 4.8 (self-reporting) 01/12/2023 3.8 (self-reported) INR (no units) Date Value 07/27/2023 2.0 INR Home CoaguChek (no units) Date Value 08/24/2023 2.5 08/10/2023 4.1 06/29/2023 3.0 Hemoglobin (g/dL) Date Value 08/03/2023 14.8 08/05/2015 14.6 Hematocrit (%) Date Value 08/03/2023 44.8 08/05/2015 43.7 Platelet Count (k/uL) Date Value 08/03/2023 281 08/05/2015 327 Creatinine (mg/dL) Date Value 08/03/2023 0.85 04/22/2023 0.87 08/19/2022 0.94 08/05/2015 1.09 08/05/2015 1.03 02/17/2015 0.99 Bilirubin, Total (mg/dL) Date Value 08/03/2023 1.3 08/05/2015 0.8 ALT (U/L) Date Value 08/03/2023 26 08/05/2015 34 AST (U/L) Date Value 08/03/2023 21 08/05/2015 23 Estimated Creatinine Clearance: 126.7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 Creatinine (mg/dL) Date Value 04/22/2023 0.87 08/19/2022 0.94 08/12/2022 0.90 08/05/2015 1.09 08/05/2015 1.03 02/17/2015 0.99 Bilirubin, Total (mg/dL) Date Value 04/22/2023 1.1 08/05/2015 0.8 ALT (U/L) Date Value 04/22/2023 22 08/05/2015 34 AST (U/L) Date Value 04/22/2023 17 08/05/2015 23 Estimated Creatinine Clearance: 123.8 mL/min (based on SCr of 0.87 mg/dL). ALLERGIES Allergen Reactions Codeine Mental Status Change Sulfa Drugs [Sulfa * Myalgia Indication for Warfarin: Anticoagulation Episode Summary Current INR goal: 2.5-3.5 Assessment: INR result of 3.4 is therapeutic Plan: Current Warfarin Dosing As of 06/15/2023 Full warfarin instructions: 15 mg every Wed, Wed; 12.5 mg all other days Called and spoke to patient/caregiver Advised patient to continue current weekly dose as noted above Next home INR check scheduled on 06/29/2023 Patient verbalizes understanding of the plan. Aly Jiménez RPh Clinical Pharmacist, Pharmacy Anticoagulation Clinic Pharmacy Anticoagulation Clinic Pager: [phone]. documented in this encounterPromedica Defiance [facility]12-19-2023 Miscellaneous Notes* Telephone Encounter - Jasmin Greene APRN.CNP - 04/20/2023 12:49 PM EST Stop Bactrim Change to keflex Follow up within the week to have INR checked Jasmin Greene APRN.CNP * Telephone Encounter - Jonathan White - 04/20/2023 12:45 PM EST Pharmacist told him yesterday this medication will interact with his coumadin and he is requesting a change because he said his pain is increasing all over. Jonathan White * Telephone Encounter - Jasmin Greene APRN.CNP - 04/20/2023 11:03 AM EST Usually not a reaction to bactrim, would suggest trying today, if continues will change. Jasmin Greene APRN.CNP * Telephone Encounter - Estephanie Lemus RN - 04/20/2023 10:36 AM EST Patient calls and states that he was [facility] on 04[facility]23 and was prescribed Bactrim for UTI symptoms. Patient states that he took his first dose last evening. Patient reports that he woke up with headaches and severe muscle pain. Patient states that he thinks he had a reaction to Bactrim. Please review and advise, Estephanie Lemus RN documented in this encounterPromedica Defiance [facility]12-12-2023 Miscellaneous Notes* Telephone Encounter - Aly Jiménez RPh - 04/13/2023 8:02 AM EST [facility] Anticoagulation Episode Summary Anticoagulation Care Providers Provider Role Specialty Phone number BobSaurav avery MD Referring Internal Medicine [phone] Georgie Elizabeth is a 53 year old year old male patient being evaluated today for a Telemanagement visit. Patient is currently on the following anticoagulant(s) Warfarin. Labs PT INR (no units) Date Value 01/26/2023 4.8 (self-reporting) 01/12/2023 3.8 (self-reported) 12/29/2022 2.9 self report INR Home CoaguChek (no units) Date Value 04/13/2023 1.6 03/30/2023 4.4 03/16/2023 3.8 Hemoglobin (g/dL) Date Value 08/19/2022 15.5 08/05/2015 14.6 Hematocrit (%) Date Value 08/19/2022 48.4 08/05/2015 43.7 Platelet Count (k/uL) Date Value 08/19/2022 346 08/05/2015 327 Creatinine (mg/dL) Date Value 08/19/2022 0.94 08/12/2022 0.90 08/05/2015 1.09 08/05/2015 1.03 02/17/2015 0.99 Bilirubin, Total (mg/dL) Date Value 08/19/2022 1.5 08/19/2022 1.5 08/05/2015 0.8 ALT (U/L) Date Value 08/19/2022 20 08/05/2015 34 AST (U/L) Date Value 08/19/2022 27 08/05/2015 23 CrCl cannot be calculated (Patient's most recent lab result is older than the maximum 180 days allowed.). ALLERGIES Allergen Reactions Codeine Mental Status Change Indication for Warfarin: Anticoagulation Episode Summary Current INR goal: 2.5-3.5 Assessment: INR result of 1.6 is SUBtherapeutic due to: No obvious cause Patient denies any missed or decrease doses, changes in warfarin tablet color/shape/butcher helper, eating more green vegetables, or consumption of liver, green tea, Ensure, Boost, [place] Instant Breakfast, Mulit-Vitamins, and V-8. Plan: Current Warfarin Dosing As of 04/13/2023 Full warfarin instructions: 04/13: 17.5 mg; 04/15: 15 mg; Otherwise 15 mg every Sun, Wed, Wed; 12.5mg all other days Called and spoke to patient/caregiver Advised patient to increase dose for 1 day and increase total weekly regimen as noted above Next home INR check scheduled on 04/20/2023 Patient verbalizes understanding of the plan. Aly Jiménez RPh Clinical Pharmacist, Pharmacy Anticoagulation Clinic Pharmacy Anticoagulation Clinic Pager: [phone]. documented in this encounterPromedica Def[facility]11-15-2023 Miscellaneous Notes* Telephone Encounter - Harini Cesar RPh - 03/17/2023 9:00 AM EST [facility] Anticoagulation Episode Summary Anticoagulation Care Providers Provider Role Specialty Phone number Saurav Bob MD Referring Internal Medicine [phone] Georgie Elizabeth is a 53 year old year old male patient being evaluated today for a Lab INR. Patientis currently on the following anticoagulant(s) Warfarin. Labs PT INR (no units) Date Value 01/26/2023 4.8 (self-reporting) 01/12/2023 3.8 (self-reported) 12/29/2022 2.9 self report INR Home CoaguChek (no units) Date Value 03/16/2023 3.8 02/23/2023 3.4 02/09/2023 2.9 Hemoglobin (g/dL) Date Value 08/19/2022 15.5 08/05/2015 14.6 Hematocrit (%) Date Value 08/19/2022 48.4 08/05/2015 43.7 Platelet Count (k/uL) Date Value 08/19/2022 346 08/05/2015 327 Creatinine (mg/dL) Date Value 08/19/2022 0.94 08/12/2022 0.90 08/05/2015 1.09 08/05/2015 1.03 02/17/2015 0.99 Bilirubin, Total (mg/dL) Date Value 08/19/2022 1.5 08/19/2022 1.5 08/05/2015 0.8 ALT (U/L) Date Value 08/19/2022 20 08/05/2015 34 AST (U/L) Date Value 08/19/2022 27 08/05/2015 23 CrCl cannot be calculated (Patient's most recent lab result is older than the maximum 180 days allowed.). ALLERGIES Allergen Reactions Codeine Mental Status Change Indication for Warfarin: Mechanical heart valve present senior care (current) use of anticoagulants History of mitral valve replacement with mechanical valve Anticoagulation Episode Summary Current INR goal: 2.5-3.5 Assessment: INR result of 3.8 is SUPRAtherapeutic due to: No obvious cause but possibly a little less vitamin K. Plan: Current Warfarin Dosing As of 03/17/2023 Full warfarin instructions: 03/18: 7.5 mg; Otherwise 12.5 mg every Wed, Martha, Sat; 15 mg all other days Called and spoke to patient/caregiver Advised patient to increase dose for 1 day only then resume weekly regimen Next lab INR check scheduled on or around by 04/09/2023 Patient verbalizes understanding of the plan. Patient denies need for refills. Harini Cesar RPh Clinical Pharmacist, Pharmacy Anticoagulation Clinic Pharmacy Anticoagulation Clinic Pager: [phone]. documented in this encounterPromedica Defiance [facility]10-24-2023 Miscellaneous Notes* Telephone Encounter - Aly Jiménez RPh - 02/23/2023 7:52 AM EDT [facility] Anticoagulation Episode Summary Anticoagulation Care Providers Provider Role Specialty Phone number Saurav Bob MD Referring Internal Medicine [phone] Georgie Elizabeth is a 52 year old year old male patient being evaluated today for a Telemanagement visit. Patient is currently on the following anticoagulant(s) Warfarin. Labs PT INR (no units) Date Value 01/26/2023 4.8 (self-reporting) 01/12/2023 3.8 (self-reported) 12/29/2022 2.9 self report INR Home CoaguChek (no units) Date Value 02/23/2023 3.4 02/09/2023 2.9 02/02/2023 1.9 Hemoglobin (g/dL) Date Value 08/19/2022 15.5 08/05/2015 14.6 Hematocrit (%) Date Value 08/19/2022 48.4 08/05/2015 43.7 Platelet Count (k/uL) Date Value 08/19/2022 346 08/05/2015 327 Creatinine (mg/dL) Date Value 08/19/2022 0.94 08/12/2022 0.90 08/05/2015 1.09 08/05/2015 1.03 02/17/2015 0.99 Bilirubin, Total (mg/dL) Date Value 08/19/2022 1.5 08/19/2022 1.5 08/05/2015 0.8 ALT (U/L) Date Value 08/19/2022 20 08/05/2015 34 AST (U/L) Date Value 08/19/2022 27 08/05/2015 23 CrCl cannot be calculated (Patient's most recent lab result is older than the maximum 180 days allowed.). ALLERGIES Allergen Reactions Codeine Mental Status Change Indication for Warfarin: Anticoagulation Episode Summary Current INR goal: 2.5-3.5 Assessment: INR result of 3.4 is therapeutic Plan: Current Warfarin Dosing As of 02/23/2023 Full warfarin instructions: 12.5 mg every e, Martha, Sat; 15 mg all other days Sent [employer] message Advised patient to continue current weekly dose as noted above Next home INR check scheduled on 03/09/2023 Aly Jiménez RPh Clinical Pharmacist, Pharmacy Anticoagulation Clinic Pharmacy Anticoagulation Clinic Pager: [phone]. documented in this encounterPromedica Defiance [facility]10-21-2023 History of Present illness Narrative* Lise Kennedy PA-C - 02/20/2023 3:07 PM EDT This note was created using NoteWriter. Subjective Georgie Elizabeth is a 52 year old male. HPI Presents with his left ear feeling clogged. He gets earwax buildup from time to time and has to have it flushed out. This feels similar. He did have COVID about a month ago and then another cold after that but that has completely resolved. No fever. No drainage out of the ear. Some decreased hearing. No recent swimming. Review of Systems HENT: Positive for ear pain and hearing loss. Left ear is clogged All other systems reviewed and are negative. 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 [phone] Depression with anxiety obsessive compulsive disorder Gout 12/22/2022 HTN (hypertension) Hyperbilirubinemia 12/22/2022 Hyperlipemia Hypertension 11/16/2013 -cont home meds Hypertrophic obstructive cardiomyopathy (HCC) 2012 s/p myectomy Mitral stenosis 2013 s/p re-do MVR with mechanical valve 11/13/13 Nephrolithiasis 2017 Obstructive sleep apnea 2012 Urethral stricture Current Outpatient Medications Medication Sig Dispense Refill cholestyramine (QUESTRAN) 4 gram packet Take 1 Packet by mouth every evening. Per Dr. Kezia Madison. pantoprazole DR (PROTONIX) 40 mg tablet Take 1 tablet by mouth once daily. metoprolol succinate ER (TOPROL XL) 50 mg 24 hr tablet Take 1.5 tablets by mouth once daily. 135 tablet 3 CPAP/BIPAP/OTHER Continue ASV with current settings of EPAP 5 cm H2O with PS 4- 12 cmH2O. Lifetime supplies for ASV, including patient preferred mask, head gear, heated tubing, humidity, filters, chin strap. Dx: Obstructive Sleep Apnea G47.33 DME: ROSEMARIE 1 Each 0 aspirin 81 mg chewable tablet Take 1 tablet by mouth once daily. BIPAP Please service machine, humidifier causing issues. Lifetime supplies G47.33 DOREEN 1 Device 0 BIPAP ASV EPAP min 5 cm H20, PS 4-12 cm H20. Mask fitting to consider Dream wear FFM. Provide lifetime supplies including tubing, heated humidity, filters. Dx: G47.33 & G47.37. 1 Device 0 BIPAP Fax 30 day download report to [phone] to assess usage and residual AHI after receipt of replacement ASV. 1 Device 0 rosuvastatin (CRESTOR) 20 mg tablet Take 20 mg by mouth once daily. Melatonin 5 mg tab Take by mouth as needed. warfarin 7.5 mg tab 7.5 mg, warfarin 5 mg tab 5 mg Take 12.5 mg by mouth daily as directed. 12.5 mgfor 7 days week ACETAMINOPHEN (TYLENOL EXTRA STRENGTH ORAL) Take by mouth as needed. Current Facility-Administered Medications Medication Dose Route Frequency Provider Last Rate Last Admin perflutren lipid microspheres 1.3 mL in NaCl (PF) 0.9% 10 mL injection (DEFINITY) INTRAVENOUS DIRECTED Janae Montanez MD sodium chloride 0.9 % (flush) 10 mL (BD POSIFLUSH) 10 mL INTRAVENOUS DIRECTED Janae Montanez MD perflutren lipid microspheres 1.3 mL in NaCl (PF) 0.9% 10 mL injection (DEFINITY) INTRAVENOUS DIRECTED Janae Montanez MD sodium chloride 0.9 % (flush) 10 mL (BD POSIFLUSH) 10 mL INTRAVENOUS DIRECTED Janae Montanez MD PAST SURGICAL HISTORY Procedure Laterality Date ADENOIDECTOMY HX 05/03/1986 COLONOSCOPY 05/03/2011 COLONOSCOPY SCREENING 01/08/2022 EGD DIAGNOSTIC 11/10/2022 PAST SURGICAL HISTORY OF 01/23/2013 mitral valve repair, #32 Valerie ring, ligation of left atrial appendage PAST SURGICAL HISTORY OF 11/13/2013 Myectomy and MVr with de leon band and valvuloplasty. PAST SURGICAL HISTORY OF 11/20/2013 redo sternotomy MVR with mechanical ON X valve (27/29 mm). PAST SURGICAL HISTORY OF 01/29/2015 BMG Urethroplasty TONSILLECTOMY HX 05/03/1986 FAMILY HISTORY Problem Relation Age of Onset other (Diverticulosis) Mother Heart Father [place], sudden 50's Colon Cancer Sister Heart Paternal Grandmother Social History Tobacco Use Smoking status: Never Smokeless tobacco: Never Vaping Use Vaping Use: Never used Substance Use Topics Alcohol use: No Comment: rarely Drug use: Never Objective BP 122/72 Pulse 78 Temp 36.4 C (97.6 F) Resp 16 Wt 106.1 kg (234 lb) SpO2 98% BMI 28.48kg/m Physical Exam Vitals reviewed. Constitutional: Appearance: Normal appearance. HENT: Head: Normocephalic and atraumatic. Right Ear: Tympanic membrane, ear canal and external ear normal. Left Ear: There is impacted cerumen. Nose: Nose normal. Mouth/Throat: Mouth: Mucous membranes are moist. Pharynx: Oropharynx is clear. Skin: General: Skin is warm and dry. Neurological: General: No focal deficit present. Mental Status: He is alert and oriented to person, place, and time. Assessment and Plan ASSESSMENT/PLAN: 1. Impacted cerumen of left ear - ICD9: 380.4, ICD10: H61.22 Flushed here by nursing staff. Tm visualized after flushing and no perforation. EOC normal after flushing. - AMBULATORY EAR LAVAGE/IRRIGATION Lise Kennedy PA-C documented in this encounterPromedica Defiance [facility] Hospital10-10-2023 Miscellaneous Notes* Telephone Encounter - Aly Jiménez [facility] - 02/09/2023 3:11 PM EDT [facility] Anticoagulation Episode Summary Anticoagulation Care Providers Provider Role Specialty Phone number Saurav Bob MD Referring Internal Medicine [phone] Georgie Elizabeth is a 52 year old year old male patient being evaluated today for a Telemanagement visit. Patient is currently on the following anticoagulant(s) Warfarin. Labs PT INR (no units) Date Value 01/26/2023 4.8 (self-reporting) 01/12/2023 3.8 (self-reported) 12/29/2022 2.9 self report INR Home CoaguChek (no units) Date Value 02/09/2023 2.9 02/02/2023 1.9 Hemoglobin (g/dL) Date Value 08/19/2022 15.5 08/05/2015 14.6 Hematocrit (%) Date Value 08/19/2022 48.4 08/05/2015 43.7 Platelet Count (k/uL) Date Value 08/19/2022 346 08/05/2015 327 Creatinine (mg/dL) Date Value 08/19/2022 0.94 08/12/2022 0.90 08/05/2015 1.09 08/05/2015 1.03 02/17/2015 0.99 Bilirubin, Total (mg/dL) Date Value 08/19/2022 1.5 08/19/2022 1.5 08/05/2015 0.8 ALT (U/L) Date Value 08/19/2022 20 08/05/2015 34 AST (U/L) Date Value 08/19/2022 27 08/05/2015 23 Estimated Creatinine Clearance: 122.9 mL/min (based on SCr of 0.94 mg/dL). ALLERGIES Allergen Reactions Codeine Mental Status Change Indication for Warfarin: Anticoagulation Episode Summary Current INR goal: 2.5-3.5 Assessment: INR result of 2.9 is therapeutic Plan: Current Warfarin Dosing As of 02/09/2023 Full warfarin instructions: 12.5 mg every e, Martha, Sat; 15 mg all other days Sent [employer] message Advised patient to continue current weekly dose as noted above Next home INR check scheduled on 02/16/2023 Aly Jiménez RPh Clinical Pharmacist, Pharmacy Anticoagulation Clinic Pharmacy Anticoagulation Clinic Pager: [phone]. documented in this encounterPromedica Defiance [facility]10-01-2023 Telephone encounter Note * Telephone Encounter - Neelam Gutierrez RN - 01/31/2023 2:09 PM EDT S: Patient spoke with [facility] nurse regarding cough B: Onset of symptoms/concern 7 days A: Pt has cough bringing up thick green phlegm with blood at times. The blood is bright red and mixed with the phlegm. Not a lot of blood, just traces. Cough started 7 days ago. Blowing green mixedwith blood out of his nose. Had covid 3 weeks ago. Was better for about a week. Has mechanical heart valve and concerned when he has any infection. Throat is raw from coughing. Headache is in the sinu ses rates 8/10 and intermittent. Denies fever, chest pain, sob, wheezing, or ear pain. SpO2 has been normal - 96-97%. Pt is on warfarin. Tested negative for covid. R: Allergies reviewed and pharmacy verified - [facility] in [place]. Paged provider can reconditioner via secure - Dr Barton. Verbal order given to CAC nurse for Augmentin 875 mg #20, take 1 po twice a day x 10 days with no refills. Pt to decrease coumadin dose to half of what he takes and be seen in the office tomorrow for INR check. Prescription order read back to provider for verification. Prescription called into pharmacy at 2:50 pm, spoke with Araceli. Pt informed. Scheduled for an appointment on 02-01-23 at 11:[address] Thrasher. Pt states he has not taken his warfarin yet today because has had similarproblem with bleeding and they adjusted the dosage at that time so he thought he should wait until he speaks with the provider before taking his dose today. Will take half the dose today and tomorrowmorning. Keep well hydrated. Humidifier. Patient understands care advice. Instructed to call back with any further questions or concerns or if symptoms worsen. Reason for Disposition [1] Coughed up blood-tinged sputum AND [2] more than once Protocols used: Cough - Acute [id number] [facility] [id number] Miscellaneous Notes* Telephone Encounter - Neelam Gutierrez RN - 01/31/2023 2:09 PM EDT S: Patient spoke with [facility] nurse regarding cough B: Onset of symptoms/concern 7 days A: Pt has cough bringing up thick green phlegm with blood at times. The blood is bright red and mixed with the phlegm. Not a lot of blood, just traces. Cough started 7 days ago. Blowing green mixedwith blood out of his nose. Had covid 3 weeks ago. Was better for about a week. Has mechanical heart valve and concerned when he has any infection. Throat is raw from coughing. Headache is in the sinu ses rates 8/10 and intermittent. Denies fever, chest pain, sob, wheezing, or ear pain. SpO2 has been normal - 96-97%. Pt is on warfarin. Tested negative for covid. R: Allergies reviewed and pharmacy verified - [facility] in [place]. Paged provider can reconditioner via secure - Dr Barton. Verbal order given to [facility] nurse for Augmentin 875 mg #20, take 1 po twice a day x 10 days with no refills. Pt to decrease coumadin dose to half of what he takes and be seen in the office tomorrow for INR check. Prescription order read back to provider for verification. Prescription called into pharmacy at 2:50 pm, spoke with Araceli. Pt informed. Scheduled for an appointment on 02-01-23 at 11:[address] Thrasher. Pt states he has not taken his warfarin yet today because has had similarproblem with bleeding and they adjusted the dosage at that time so he thought he should wait until he speaks with the provider before taking his dose today. Will take half the dose today and tomorrowmorning. Keep well hydrated. Humidifier. Patient understands care advice. Instructed to call back with any further questions or concerns or if symptoms worsen. Reason for Disposition [1] Coughed up blood-tinged sputum AND [2] more than once Protocols used: Cough - Acute [id number] documented in this [facility]09-28-2023 Miscellaneous Notes* Telephone Encounter - Aly Jiménez RPh - 01/28/2023 4:56 PM EDT Spoke to patient. Advised he does not need to hold warfarin prior to cystoscopy. * Telephone Encounter - Aly Jiménez RPh - 01/28/2023 4:55 PM EDT Images from the original note were not included. Ramón Silva MD You 2 minutes ago (4:52 PM) No * Telephone Encounter - Aly Jiménez RPh - 01/28/2023 3:[address] Silva, Patient is scheduled for a cystoscopy on 02/01. Does he need to hold warfarin prior? Thank you, Aly * Telephone Encounter - Shiv ([employer])Nilda - 01/28/2023 2:51 PM EDT PATIENT CALL Patient called call center regarding procedure. Patient called and stated he is scheduled for a urethral scope on Thursday 02/01. He stated he has hadthese in the past but isn't sure if he has to hold/bridge or not. Next INR result currently expected 02/02 via home test. Patient can be reached at [phone]. PT INR (no units) Date Value 01/26/2023 4.8 (self-reporting) 01/12/2023 3.8 (self-reported) 12/29/2022 2.9 self report Nilda Parham ([employer]) documented in this encounterProm[facility]09-14-2023 Miscellaneous Notes* Telephone Encounter - Gunnar Patel, [facility] - 01/14/2023 4:40 PM EDT [facility] Clinic Anticoagulation Episode Summary Anticoagulation Care Providers Provider Role Specialty Phone number Saurav Bob MD Referring Internal Medicine [phone] Georgie Elizabeth is a 52 year old year old male patient being evaluated today for a Telemanagement visit. Patient is currently on the following anticoagulant(s) Warfarin. Labs PT INR (no units) Date Value 01/12/2023 3.8 (self-reported) 12/29/2022 2.9 self report 08/05/2015 3.3 Hemoglobin (g/dL) Date Value 08/19/2022 15.5 08/05/2015 14.6 Hematocrit (%) Date Value 08/19/2022 48.4 08/05/2015 43.7 Platelet Count (k/uL) Date Value 08/19/2022 346 08/05/2015 327 Creatinine (mg/dL) Date Value 08/19/2022 0.94 08/12/2022 0.90 08/05/2015 1.09 08/05/2015 1.03 02/17/2015 0.99 Bilirubin, Total (mg/dL) Date Value 08/19/2022 1.5 08/19/2022 1.5 08/05/2015 0.8 ALT (U/L) Date Value 08/19/2022 20 08/05/2015 34 AST (U/L) Date Value 08/19/2022 27 08/05/2015 23 Estimated Creatinine Clearance: 122.9 mL/min (based on SCr of 0.94 mg/dL). ALLERGIES Allergen Reactions Codeine Mental Status Change Indication for Warfarin: Mechanical heart valve present senior care (current) use of anticoagulants History of mitral valve replacement with mechanical valve Anticoagulation Episode Summary Current INR goal: 2.5-3.5 Assessment: INR result of 3.8 is SUPRAtherapeutic due to: positive for COVID and symptomatic Plan: Current Warfarin Dosing As of 01/14/2023 Full warfarin instructions: 01/15: 7.5 mg; Otherwise 12.5 mg every Wed, Wed, Sat; 15 mg all other days Called and spoke to patient/caregiver Advised patient to decrease dose for 1 day only then resume weekly regimen Next home INR check scheduled on 01/26/23 Patient verbalizes understanding of the plan. Patient denies need for refills. Gunnar Patel RP Clinical Pharmacist, Pharmacy Anticoagulation Clinic Pharmacy Anticoagulation Clinic Pager: [phone]. * Telephone Encounter - Meseret LantiguaNSL Renewable PowerBrandon Jay - 01/14/2023 4:05 PM EDT PATIENT CALL Patient was called to determine which home meter company patient uses. Patient uses [employer]-will start home meter encounter and generate PAF. Patient stated he started to have covid symptoms on Wednesday, tested yesterday and got results todayfor covid positive. Patient stated he was prescribed Paxlovid and started today. Patient stated he tested with home meter 01/12/2023 and the result was 3.8. PT INR (no units) Date Value 12/29/2022 2.9 self report 08/05/2015 3.3 08/05/2015 3.1 Requested patient to call PAC with INR result as well when testing while we work on getting resultstransferred over to us. Patient verbalized understanding. Brandon Lant[employer]) documented in this encounterPromedica [facility]09-13-2023 History of Present illness Narrative* Xiomara Santos APRN.SHEET METAL WORKER APPRENTICE - 01/13/2023 5:21 PM EDT This note was created using [employer]. Subjective Georgie Elizabeth is a 52 year old male. Patient presents with one day of fever, headache, congestion, fatigue, body aches, nausea, and scratching throat. He denies chest pain, cough, or shortness of breath. Temperature at home was 102F. Heis taking tylenol for relief, but chills chills and fever return when it wears off. The history is provided by the patient. Nasal Congestion Associated symptoms include chills, congestion, headaches and a sore throat. Pertinent negatives include no coughing, ear pain or shortness of breath. Review of Systems Constitutional: Positive for activity change, chills, fatigue and fever. HENT: Positive for congestion and sore throat. Negative for ear pain. Respiratory: Negative for cough and shortness of breath. Cardiovascular: Negative for chest pain. Gastrointestinal: Positive for nausea. Negative for abdominal pain, diarrhea and vomiting. Neurological: Positive for headaches. All other systems reviewed and are negative. Objective BP 122/72 Pulse 96 Temp (!) 38.4 C (101.1 F) Resp 18 Wt 106.1 kg (234 lb) SpO2 97% BMI 28.48 kg/m PAST MEDICAL HISTORY Diagnosis Date Adenomatous colon polyp 01/08/2022 Anticoagulation adequate Allen's esophagus 12/22/2022 Bile reflux gastritis 11/10/2022 Central sleep apnea 11/15/2013 BiPAP Cholelithiasis 02/18/2020 Complex sleep apnea syndrome 2012 DME [facility] Cardenas fx. [phone] Depression with anxiety obsessive compulsive disorder Gout 12/22/2022 HTN (hypertension) Hyperbilirubinemia 12/22/2022 Hyperlipemia Hypertension 11/16/2013 -cont home meds Hypertrophic obstructive cardiomyopathy (HCC) 2013 s/p myectomy Mitral stenosis 2013 s/p re-do MVR with mechanical valve 11/13/13 Nephrolithiasis 2017 Obstructive sleep apnea 2012 Urethral stricture PAST SURGICAL HISTORY Procedure Laterality Date ADENOIDECTOMY HX 05/03/1986 COLONOSCOPY 05/03/2011 COLONOSCOPY SCREENING 01/08/2022 EGD DIAGNOSTIC 11/10/2022 PAST SURGICAL HISTORY OF 01/23/2013 mitral valve repair, #32 Valerie ring, ligation of left atrial appendage PAST SURGICAL HISTORY OF 11/13/2013 Myectomy and MVr with de leon band and valvuloplasty. PAST SURGICAL HISTORY OF 11/20/2013 redo sternotomy MVR with mechanical ON X valve (27/29 mm). PAST SURGICAL HISTORY OF 01/29/2015 BMG Urethroplasty TONSILLECTOMY HX 05/03/1986 ALLERGIES Codeine MEDICATIONS cholestyramine (QUESTRAN) 4 gram packet^Take 1 Packet by mouth every evening. Per Dr. Mast Friend.^Disp: ^Rfl: pantoprazole DR (PROTONIX) 40 mg tablet^Take 1 tablet by mouth once daily.^Disp: ^Rfl: metoprolol succinate ER (TOPROL XL) 50 mg 24 hr tablet^Take 1.5 tablets by mouth once daily.^Disp: 135 tablet^Rfl: 3 CPAP/BIPAP/OTHER^Continue ASV with current settings of EPAP 5 cm H2O with PS 4- 12 cmH2O. Lifetime supplies for ASV, including patient preferred mask, head gear, heated tubing, humidity, filters, chin strap. Dx: Obstructive Sleep Apnea G47.33 DME: [facility] ^Disp: 1 Each^Rfl: 0 aspirin 81 mg chewable tablet^Take 1 tablet by mouth once daily.^Disp: ^Rfl: BIPAP^Please service machine, humidifier causing issues. Lifetime supplies G47.33 DOREEN^Disp: 1 Device^Rfl: 0 BIPAP^ASV EPAP min 5 cm H20, PS 4-12 cm H20. Mask fitting to consider Dream wear FFM. Provide lifetime supplies including tubing, heated humidity, filters. Dx: G47.33 & G47.37.^Disp: 1 Device^Rfl: 0 BIPAP^Fax 30 day download report to [phone] to assess usage and residual AHI after receipt of replacement ASV.^Disp: 1 Device^Rfl: 0 rosuvastatin (CRESTOR) 20 mg tablet^Take 20 mg by mouth once daily.^Disp: ^Rfl: Melatonin 5 mg tab^Take by mouth as needed. ^Disp: ^Rfl: warfarin 7.5 mg tab 7.5 mg, warfarin 5 mg tab 5 mg^Take 12.5 mg by mouth daily as directed. 12.5 mgfor 7 days week^Disp: ^Rfl: ACETAMINOPHEN (TYLENOL EXTRA STRENGTH ORAL)^Take by mouth as needed.^Disp: ^Rfl: FAMILY HISTORY Problem Relation Age of Onset other (Diverticulosis) Mother Heart Father [place], sudden 50's Colon Cancer Sister Heart Paternal Grandmother Social History Tobacco Use Smoking status: Never Smokeless tobacco: Never Vaping Use Vaping Use: Never used Substance Use Topics Alcohol use: No Comment: rarely Drug use: Never Physical Exam Vitals reviewed. Constitutional: General: He is not in acute distress. Appearance: Normal appearance. He is normal weight. He is ill-appearing. He is not toxic-appearing. HENT: Right Ear: Tympanic membrane, ear canal and external ear normal. No tenderness. There is no impacted cerumen. Tympanic membrane is not perforated, erythematous, retracted or bulging. Left Ear: Tympanic membrane, ear canal and external ear normal. No tenderness. There is no impactedcerumen. Tympanic membrane is not perforated, erythematous, retracted or bulging. Nose: Congestion present. Mouth/Throat: Mouth: Mucous membranes are moist. Pharynx: Oropharynx is clear. Uvula midline. No pharyngeal swelling, oropharyngeal exudate, posterior oropharyngeal erythema or uvula swelling. Cardiovascular: Rate and Rhythm: Normal rate and regular rhythm. Pulmonary: Effort: Pulmonary effort is normal. No respiratory distress. Breath sounds: Normal breath sounds. No wheezing. Neurological: General: No focal deficit present. Mental Status: He is alert and oriented to person, place, and time. Mental status is at baseline. Psychiatric: Mood and Affect: Mood normal. Behavior: Behavior normal. Thought Content: Thought content normal. Judgment: Judgment normal. Assessment and Plan ASSESSMENT/PLAN: 1. URI, acute - ICD9: 465.9, ICD10: J06.9 - Discussed viral etiology and rationale for treatment. - COVID/flu/RSV sent - Symptomatic treatment with prn analgesia - Supportive care with fluids and rest - The patient may also use OTC decongestants prn, OTC cough and cold meds as needed, and warm salt water gargles, throat lozenges and/or OTC throat spray as needed. - Follow up in 3-5 days if symptoms persist or sooner if worsening of symptoms - Red flags reviewed - COVID & INFLUENZA A/B & RSV NAAT, ROUTINE - COVID NAAT, UPPER RESPIRATORY, ROUTINE - ROUTINE FLU A/B + RSV Denisha العلي Supervising provider was present and guided the care of the patient for the entire session on this date. All documentation was reviewed and agreed upon. Xiomara Santos APRN.SHEET METAL WORKER APPRENTICE documented in this encounterPromedica [facility]08-30-2023 History of Present illness Narrative* Herbie Shultz MD - 12/30/2022 7:45 PM EDT Patient presents with: Rash: itching and burning left arm and some tingling in left lower back x 1 week HPI: Rash: Location: left arm upper and lower Duration: 1 week Pruritis: Yes Pain: sometimes feels shooting pain into the left arm and a sensation in the mid back Change: Bleeding/ulceration/blister/pustule: blister, bleeds, no pustules Contacts with rash: No Exposure: No new soaps, detergents, fabric softeners, lotions. 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 He has a new kitten. Change in medications: Augmentin 2 weeks ago for right arm cat bite. Recent illness: mild headache. Treatment: none MEDICATIONS: cholestyramine (QUESTRAN) 4 gram packet^Take 1 Packet by mouth every evening. Per Dr. Kezia Madison.^Disp: ^Rfl: pantoprazole DR (PROTONIX) 40 mg tablet^Take 1 tablet by mouth once daily.^Disp: ^Rfl: metoprolol succinate ER (TOPROL XL) 50 mg 24 hr tablet^Take 1.5 tablets by mouth once daily.^Disp: 135 tablet^Rfl: 3 CPAP/BIPAP/OTHER^Continue ASV with current settings of EPAP 5 cm H2O with PS 4- 12 cmH2O. Lifetime supplies for ASV, including patient preferred mask, head gear, heated tubing, humidity, filters, chin strap. Dx: Obstructive Sleep Apnea G47.33 DME: [facility] ^Disp: 1 Each^Rfl: 0 aspirin 81 mg chewable tablet^Take 1 tablet by mouth once daily.^Disp: ^Rfl: BIPAP^Please service machine, humidifier causing issues. Lifetime supplies G47.33 DOREEN^Disp: 1 Device^Rfl: 0 BIPAP^ASV EPAP min 5 cm H20, PS 4-12 cm H20. Mask fitting to consider Dream wear FFM. Provide lifetime supplies including tubing, heated humidity, filters. Dx: G47.33 & G47.37.^Disp: 1 Device^Rfl: 0 BIPAP^Fax 30 day download report to [phone] to assess usage and residual AHI after receipt of replacement ASV.^Disp: 1 Device^Rfl: 0 rosuvastatin (CRESTOR) 20 mg tablet^Take 20 mg by mouth once daily.^Disp: ^Rfl: Melatonin 5 mg tab^Take by mouth as needed. ^Disp: ^Rfl: warfarin 7.5 mg tab 7.5 mg, warfarin 5 mg tab 5 mg^Take 12.5 mg by mouth daily as directed. 12.5 mgfor 7 days week^Disp: ^Rfl: ACETAMINOPHEN (TYLENOL EXTRA STRENGTH ORAL)^Take by mouth as needed.^Disp: ^Rfl: ALLERGIES: ALLERGIES Allergen Reactions Codeine Mental Status Change VITALS: BP 128/70 Pulse 84 Temp 36.3 C (97.3 F) Resp 16 Wt 106.1 kg (234 lb) SpO2 96% BMI 28.48kg/m PHYSICAL EXAM: GEN: pleasant, no acute distress, alert SKIN: <1 dozen 2-4mm excoriated lesion with dry eschar in the bases along the left lateral upperand lower outer arm. There is 1 lesion over the mid lateral forearm which is slightly raised erythematous papule +/- vesicular component. Few parallel linear abrasions for a few cm on the anterior and lateral shoulder and upper arm. There are ~4 parallel linear abrasions several cm on the mid back spaced a few cm apart. ASSESSMENT/PLAN: 1. Rash and nonspecific skin eruption - ICD9: 782.1, ICD10: R21 The papular or vesicular rash on the left arm is of uncertain origin, but is not characteristic of shingles. Lesions have been largely excoriated but otherwise resolving. He also has scratches on hisshoulder and back. - MUPIROCIN 2 % TOPICAL OINTMENT to avoid secondary infection. Herbie Shultz MD documented in this encounterPromedica [facility]08-29-2023 Miscellaneous Notes* Telephone Encounter - Aly Jiménez RPh - 12/29/2022 2:40 PM EDT [facility] Anticoagulation Clinic Anticoagulation Episode Summary Anticoagulation Care Providers Provider Role Specialty Phone number BobSaurav banks MD Referring Internal Medicine [phone] Georgie Elizabeth is a 52 year old year old male patient being evaluated today for a Telemanagement visit. Patient is currently on the following anticoagulant(s) Warfarin. Labs PT INR (no units) Date Value 12/29/2022 2.9 self report 08/05/2015 3.3 08/05/2015 3.1 Hemoglobin (g/dL) Date Value 08/19/2022 15.5 08/05/2015 14.6 Hematocrit (%) Date Value 08/19/2022 48.4 08/05/2015 43.7 Platelet Count (k/uL) Date Value 08/19/2022 346 08/05/2015 327 Creatinine (mg/dL) Date Value 08/19/2022 0.94 08/12/2022 0.90 08/05/2015 1.09 08/05/2015 1.03 02/17/2015 0.99 Bilirubin, Total (mg/dL) Date Value 08/19/2022 1.5 08/19/2022 1.5 08/05/2015 0.8 ALT (U/L) Date Value 08/19/2022 20 08/05/2015 34 AST (U/L) Date Value 08/19/2022 27 08/05/2015 23 Estimated Creatinine Clearance: 123.4 mL/min (based on SCr of 0.94 mg/dL). ALLERGIES Allergen Reactions Codeine Mental Status Change Indication for Warfarin: Mechanical heart valve present senior care (current) use of anticoagulants History of mitral valve replacement with mechanical valve Anticoagulation Episode Summary Current INR goal: 2.5-3.5 Assessment: INR result of 2.9 self report is therapeutic Plan: Current Warfarin Dosing As of 12/29/2022 Full warfarin instructions: 12.5 mg every Tue, Martha, Sat; 15 mg all other days Called and spoke to patient/caregiver Advised patient to continue current weekly dose as noted above Next home INR check scheduled on 01/12/2023 Patient verbalizes understanding of the plan. Aly Jiménez RPh Clinical Pharmacist, Pharmacy Anticoagulation Clinic Pharmacy Anticoagulation Clinic Pager: [phone]. * Telephone Encounter - Brenda Fragoso RN - 12/29/2022 1:53 PM EDT Patient calling in INR results today (12/29) and can be reached at [phone]. PT INR (no units) Date Value 12/29/2022 2.9 self report 08/05/2015 3.3 08/05/2015 3.1 Minnie Fragoso RN Pharmacy Anticoagulation Clinic documented in this encounterPromedica [facility]08-25-2023 Miscellaneous Notes* Telephone Encounter - Jones West RPh - 12/25/2022 4:06 PM EDT Patient due to test INR today. Will continue to monitor for results. Jones West RPh documented in this encounterPromedica Defiance [facility]08-23-2023 Miscellaneous Notes* Telephone Encounter - Vane Matute RPh - 12/23/2022 5:19 PM EDT I have read and agree with recommendations of below. Vane Matute RPh. * Telephone Encounter - Brenda Fragoso RN - 12/23/2022 5:[address] Bob, Thank you for referring Vannessa Elizabeth to the Anticoagulation Clinic for follow up. A pharmacist will see your patient for fingerstick INR testing and counseling. Please note: if at any time your patient does not agree to follow our recommendations for follow up care for managing their INR via POCT, home INR meter, or lab, they may be discharged back to your service for follow up. By this referral, we will be following your patient under the consult agreement policy between the Department of Pharmacy and member of the [facility]. Under this policy, you agree to maintain a clinical relationship with the patient as defined by Medicare as seeing the patient at least once a year in the outpatient setting. Our pharmacists will monitor your patient's anticoagulation therapy, adjust doses, order labs and prescriptions for warfarin/enoxaparin/Vitamin K asappropriate, and bill for our visits and lab tests listing you as the responsible referring physician. If for any reason you do not wish to continue working under this collaborative practice agreement or if the patient no longer continues in your care, please contact us to discontinue this service. Thank you for your referral, Anticoagulation Management Services * Telephone Encounter - Brenda Fragoso RN - 12/23/2022 5:05 PM EDT New Referral Contact: Pharmacist Anticoagulation Clinic The patient was called to discuss recent referral to the Anticoagulation Clinic. Mode of contact: cell phone Referral date: 12/21 Referring physician: Saurav Bob Indication: MVR (replacement) Goal INR: 2.5-3.5 The expected duration of therapy is Indefinite Preferred location for visits: Telemanagement Warfarin start date: 2013 Patient was previously instructed to take warfarin: 12.5mg TuesThursSat/15mg all other days Parenteral anticoagulant: No PT INR (no units) Date Value 08/05/2015 3.3 08/05/2015 3.1 02/17/2015 1.3 Hemoglobin (g/dL) Date Value 08/19/2022 15.5 08/05/2015 14.6 Hematocrit (%) Date Value 08/19/2022 48.4 08/05/2015 43.7 WBC (k/uL) Date Value 08/19/2022 6.07 08/05/2015 5.90 A/P: Spoke to patient. The patient: DOES agree to INR testing and consult agreement Patient scheduled for next INR Lab INR on this date: 12/[address] a transfer to have results sent to PAC Patient scheduled for POCT/New Ed at [facility] on this date: n/a Patient declines the warfarin education video. Mode of learning: not new to warfarin Next Action for Anticoag Management: TM 12/25 Brenda Fragoso RN documented in this encounterPromedica Defiance [facility]08-18-2023 History of Present illness Narrative* Siomara Granger PharmD - 12/18/2022 12:45 AM EDT Images from the original note were not included. [facility] Anticoagulation Management Service ([facility]) Anticoagulation Clinic [address] [place] [address], [address], [place] [id number] Subjective ERIC Georgie (1970) had INR completed by patient's own home INR meter, visit was completed by phone- audio only. 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 and has a goal INR 2.5-3.5. Pt has Coumadin 5mg and 10mg tablets and at last visit was instructed to take home dose of 15mg MWF, 12.5mgall other days. Pt confirms taking this dose and adherence to current regimen: no Pt denies any pertinent diet changes, upcoming surgeries, bleeding, falls or head trauma with the following exceptions: Augmentin started this week after being scratched by a stray kitten. Started antibiotic Wednesday evening, continue for 5 days. Review of Systems Denies bleeding Assessment Lab Results Component Value Date INR 3.8 (A) 12/17/2022 INR 3.6 (A) 12/10/2022 INR 5.4 (A) 12/03/2022 INR 2.7 (A) 11/25/2022 INR 2.1 (A) 11/17/2022 Plan INR is supratherapeutic d/t initiation of antibiotic (Augmentin 875/125mg BID x5d started evening of 12/16) . Patient has had 3 consecutive supratherapeutic INRs, but interpretation has been complicated by antibiotic use. Plan to give decreased dose x1 today then evaluate the necessity for permanentdose decrease next week. Dosing: Take 7.5 mg today then resume home dose of home dose of 15mg MWF, 12.5mg all other days Next INR Check: One week, 12/25/22 Patient given verbal instructions. Patient expressed understanding utilizing the teach back method. Patient educated on the following: medication interactions Patient care coordination completed: N/A Time spent 15 Minutes Siomara Granger PharmD documented in this [facility]08-01-[facility]23 History of Present illness Narrative* Jasmin Greene APRN.SHEET METAL WORKER APPRENTICE - 12/01/2022 3:42 PM EDT Images from the original note were not included. Subjective The history is provided by the patient. No language specialist was used. HPI Georgie Elizabeth is a 52 year old male who presents today for CC of lump on face, not going awayfor 2 weeks. He denies any fever, chills or body aches. No red streaking. BP 110/72 Pulse 69 Temp 36.7 C (98.1 F) (Tympanic) Resp 16 Wt 107.1 kg (236 lb 3.2 oz) SpO2 95% BMI 28.75 kg/m Social History Tobacco Use Smoking status: Never Smokeless tobacco: Never Vaping Use Vaping Use: Never used Substance Use Topics Alcohol use: No Comment: rarely Drug use: Never PAST MEDICAL HISTORY Diagnosis Date Anticoagulation adequate Depression with anxiety obsessive compulsive disorder HTN (hypertension) Hyperlipemia Hypertrophic obstructive cardiomyopathy (HCC) s/p myectomy Mitral stenosis s/p re-do MVR with mechanical valve 11/13/13 Obstructive sleep apnea SBE (subacute bacterial endocarditis) prophylaxis monitoring Sleep apnea IMANI Cardenas fx. [phone] Urethral stricture I have confirmed and edited as necessary, the [facility] Review of Systems Constitutional: Negative for chills and fever. Musculoskeletal: Negative for joint pain and myalgias. Skin: Negative for itching and rash. Nodule on face All other systems reviewed and are negative. Objective Physical Exam Vitals and nursing note reviewed. Pulmonary: Effort: Pulmonary effort is normal. Skin: General: Skin is warm and dry. Findings: Rash present. Rash is nodular. Comments: Pea size lump on marked area of face, non fluctuant Neurological: Mental Status: He is alert and oriented to person, place, and time. Psychiatric: Mood and Affect: Affect normal. ASSESSMENT/PLAN: 1. Lump on face - ICD9: 784.2, ICD10: R22.0 Appears to be boil Keflex as ordered Follow up with pcp if no improvement Diagnosis and treatment plan were discussed and questions were answered to the patient's satisfaction. Pt acknowledged understanding of concepts and follow up plan. Specific signs and symptoms that would indicate the need for higher level of care were discussed indetail warranting prompt ER evaluation. Jasmin Greene APRN.SHEET METAL WORKER APPRENTICE documented in this [facility] History of Present illness Narrative* Marva Javed MA - 11/25/2022 12:30 AM EDT INR result received via fax. * Bonnie Holman RPh - 11/25/2022 12:30 AM EDT INR therapeutic, continue current dose documented in this [facility]07-24-2023 History of Present illness Narrative* Ramón Silva MD - 11/23/2022 9:46 AM EDT HPI: Georgie Elizabeth is a 52 year old male with history of mechanical mitral valve on Coumadin and urethral stricture s/p ventral onlay BMG urethroplasty in 2014. Georgie Elizabeth was last seen by Dr. Silva on 03/13/2020 for cystoscopy [facility]: Urethra: Normal to distal end of BMG repair where there is a wide caliber annular narrowing that accepts the 5.5 mm diam scope without difficulty, the repair is then widely patent to the prox end where there is another focal mucosal narrowing wider than the distal one and easily traversed. Prostate: Normal Bladder: No stones, no lesions Plan was to follow up PRN. Georgie Elizabeth presents today just for a check up. Denies concerning symptoms. Voiding 3-4 timesper day. No nocturia. Stream is good. Feels like he is emptying. Had an episode of possible gross hematuria a couple of months ago. Describes urine as darker brown for a few voids. Not associated with straining or pain. Saw IM in [place] on 08/12/2022 and had UA and culture that were negative. Thinks there have been a few of these episodes since last cystoscopyin 2019. Has had recent workup for abdominal pain; no diarrhea or constipation. Has been diagnosed with gallstones, gastroparesis, and Allen's esophagus. Celiac disease is suspected; waiting on biopsy results. Not planning surgery for gallstones. Aware of kidney stone. Does not recall ever passing any kidney stones. No known family history of prostate cancer. Has never been screened. PVR: 142 mL No results found for: PSA URINE CULTURE (08/12/2022): No growth (<1,000 CFU/ml) CT ABD/PEL W IVCON (08/12/2022): Liver: No mass. Biliary: No bile duct dilation. Interval increase in size of multiple gallbladder stones. Spleen: No mass. No splenomegaly. Pancreas: No mass or duct dilation. Adrenals: No mass. Kidneys: There are multiple left renal calculi measuring up to 6 mm. There is a low-attenuation lesion or cyst in the lower pole of the left kidney, stable to slightly increased in size. No hydroureteronephrosis. GI tract: No dilation or wall thickening. Stable appearance of the appendix. There are multiple colonic diverticula without evidence of diverticulitis. Lymph nodes: A few mildly enlarged lymph nodes seen in the ascending mesocolon, likely unchanged. Mesentery/Peritoneum: No ascites or mass or free abdominal air. Retroperitoneum: No mass. Vasculature: The celiac artery, SMA, JOHNIE and portal veins are patent. Pelvis: No mass, ascites or fluid collection. Bones/Soft Tissues: Stable abdominal soft tissue. There are mild degenerative changes in the spine. Lower thorax: No pleural effusions. The lung bases are clear of consolidations. There is a small hiatal hernia. Status post mitral valve repair. Ophthalmic Asst (topogram) images: No additional findings. PAST MEDICAL HISTORY Diagnosis Date Anticoagulation adequate Depression with anxiety obsessive compulsive disorder HTN (hypertension) Hyperlipemia Hypertrophic obstructive cardiomyopathy (HCC) s/p myectomy Mitral stenosis s/p re-do MVR with mechanical valve 11/13/13 Obstructive sleep apnea SBE (subacute bacterial endocarditis) prophylaxis monitoring Sleep apnea DME Adriel Cardenas fx. [phone] Urethral stricture PAST SURGICAL HISTORY Procedure Laterality Date ADENOIDECTOMY HX 05/03/1986 COLONOSCOPY 05/03/2011 COLONOSCOPY SCREENING 01/08/2022 PAST SURGICAL HISTORY OF 01/23/2013 mitral valve repair, #32 Valerie ring, ligation of left atrial appendage PAST SURGICAL HISTORY OF 11/13/2013 Myectomy and MVr with de leon band and valvuloplasty. PAST SURGICAL HISTORY OF 11/20/2013 redo sternotomy MVR with mechanical ON X valve (27/29 mm). PAST SURGICAL HISTORY OF 01/29/2015 BMG Urethroplasty TONSILLECTOMY HX 05/03/1986 Social History Tobacco Use Smoking status: Never Smokeless tobacco: Never Vaping Use Vaping Use: Never used Substance Use Topics Alcohol use: No Comment: rarely Drug use: Never Current Outpatient Medications on File Prior to Visit Medication Sig pantoprazole DR (PROTONIX) 40 mg tablet Take 1 tablet by mouth once daily. Dexlansoprazole 60 mg CpDM metoprolol succinate ER (TOPROL XL) 50 mg 24 hr tablet Take 1.5 tablets by mouth once daily. CPAP/BIPAP/OTHER Continue ASV with current settings of EPAP 5 cm H2O with PS 4- 12 cmH2O. Lifetime supplies for ASV, including patient preferred mask, head gear, heated tubing, humidity, filters, chin strap. Dx: Obstructive Sleep Apnea G47.33 DME: MSC aspirin 81 mg chewable tablet Take 1 tablet by mouth once daily. BIPAP Please service machine, humidifier causing issues. Lifetime supplies G47.33 DOREEN BIPAP ASV EPAP min 5 cm H20, PS 4-12 cm H20. Mask fitting to consider Dream wear FFM. Provide lifetime supplies including tubing, heated humidity, filters. Dx: G47.33 & G47.37. BIPAP Fax 30 day download report to [phone] to assess usage and residual AHI after receipt of replacement ASV. rosuvastatin (CRESTOR) 20 mg tablet Take 20 mg by mouth once daily. Melatonin 5 mg tab Take by mouth as needed. warfarin 7.5 mg tab 7.5 mg, warfarin 5 mg tab 5 mg Take 12.5 mg by mouth daily as directed. 12.5 mgfor 7 days week ACETAMINOPHEN (TYLENOL EXTRA STRENGTH ORAL) Take by mouth as needed. ursodiol (ACTIGALL) 300 mg capsule (Patient not taking: Reported on 11/23/2022) dicyclomine (BENTYL) 20 mg tablet Take 1 tablet by mouth three times daily as needed (for abdominalpain). (Patient not taking: Reported on 11/23/2022) omeprazole (PRILOSEC) 40 mg capsule Take 1 capsule by mouth once daily. (Patient not taking: Reported on 11/23/2022) Current Facility-Administered Medications on File Prior to Visit Medication perflutren lipid microspheres 1.3 mL in NaCl (PF) 0.9% 10 mL injection (DEFINITY) sodium chloride 0.9 % (flush) 10 mL (BD POSIFLUSH) ROS: Constitutional: negative Gastrointestinal: positive for abdominal pain PHYSICAL EXAM: There were no vitals taken for this visit. GENERAL: Wnl nutrition, no deformities, healthy appearing. ABDOMEN: Soft, nontender, nondistended, no masses. GENITOURINARY: MALE EXAM: No scrotal lesions, cysts, rashes. Epididymes & testes normal size, position, without mass. Urethra & meatus normal size & position w/o lesion or discharge. Penis w/o plaques, lesions, masses, or deformities. Rectal Exam: Prostate: normal size for age, symmetrical, nontender, w/o nodules. Sphincter tone normal, no mass. Anus and perineum wnl. DATA/OR LABS TO BE REVIEWED: (Simple=1 data point; Complex= 2 or more) No results found for: PSA Creatinine (mg/dL) Date Value 08/19/2022 0.94 08/12/2022 0.90 08/05/2015 1.09 08/05/2015 1.03 02/17/2015 0.99 02/16/2015 0.92 02/15/2015 0.92 No results found for: TESTOST A/P: (R31.0) Gross hematuria (primary encounter diagnosis) (Z87.448) History of urethral stricture (N20.0) Nephrolithiasis (Z12.5) Screening for prostate cancer Plan: PSA/PROSTSPECAG DIAG Georgie Elizabeth is a 52 year old male with history of mechanical mitral valve on Coumadin and urethral stricture s/p ventral onlay BMG urethroplasty in 2014. Presents for episode a few months ago of gross hematuria with dark brown urine for a few voids. Reports a few of these episodes since last cystoscopy in 2019. No other bothersome LUTS. Discussed results of CT ABD/PEL on 08/12/2022, which showed 6 mm left renal calculi. Can continue monitoring. Discussed cystoscopy to reassess urethral repair for incomplete emptying today (PVR 142 mL) and rule out bladder tumors. CRISTINA today is unrevealing. Discussed baseline PSA. He will get this drawn at his local lab. Cindy Qiu APRN.SHEET METAL WORKER APPRENTICE Attending Note I have personally performed a face to face assessment of the patient and have reviewed the SURESH note. I performed a substantive portion of the visit including all aspects of the following. My smart findings include: UA neg Epic notes reviewed, recent history outlined above. Voiding with an adequate stream, has had some episodes of possible gross hematuria as noted. No prior PSA screening. ASSESSMENT/PLAN: 1. Gross hematuria - ICD9: 599.71, ICD10: R31.0 (primary diagnosis) Recent CT scan only showed small renal stone, recommend cystoscopy and urine cytology to complete work-up. Patient agrees. He will need prophylactic antibiotics prior to cystoscopy for his mechanicalheart valve. 2. History of urethral stricture - ICD9: V13.09, ICD10: Z87.448 Patent urethral reconstruction at time of last cystoscopy. 3. Nephrolithiasis - ICD9: 592.0, ICD10: N20.0 Monitor 4. Screening for prostate cancer - ICD9: V76.44, ICD10: Z12.5 - PSA/PROSTSPECAG DIAG 5. Incomplete bladder emptying - ICD9: 788.21, ICD10: R33.9 Recheck PVR when he returns I spent a total of 30 minutes on the date of the service which included preparing to see the patient, face to face patient care, completing clinical documentation, obtaining and/or reviewing separately obtained history, performing a medically appropriate examination, counseling and educating the pat ient/family/caregiver, ordering medications, tests, or procedures, and care coordination. Signature: Ramón Silva MD Date: 11/23/2022 Time: 10:18 AM documented in this encounterProm[facility] Nurse Note* Aislinn Peña LPN - 11/23/2022 9:34 AM EDT Pvr: 142ml documented in this encounterProm[facility]ica [facility]07-18-2023 History of Present illness Narrative* Britni Benjamin MA - 11/17/2022 12:15 AM EDT INR received via fax. * Marychuy Mcgowan [facility] - 11/17/2022 12:15 AM EDT Images from the original note were not included. [facility] ([facility]) Anticoagulation Clinic [address] [place] [address], [address], [place] [address] Subjective ERIC Serrato (1970) had INR completed by patient's own home meter, visit was completed by phone- audio only. 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 and has a goal INR 2.5-3.5. Pt has Coumadin 5mg and 10mg tablets and at last visit was instructed to take 12.5 mg on 10/28 then 15 mg on Fand 12.5 mg all other days. Held warfarin for 5 days prior to procedure then took 20mg x2 followed by usual dose. Pt confirms taking this dose and adherence to current regimen. Any medication changes: no Any changes in diet (vit K): yes; has been making smoothies with raw pumpkin seeds (they are green in color) Any falls or head trauma: no Any bleeding: no Any SOB, chest pain, swelling: no Refills needed: no Any other changes or concerns: no Review of Systems Assessment Lab Results Component Value Date INR 2.1 (A) 11/17/2022 INR 3.7 (A) 10/27/2022 INR 1.6 (H) 10/19/2022 INR 3.5 (A) 10/06/2022 INR 3.4 (A) 09/22/2022 Plan Dosing as below: Subtherapeutic due to holding for procedure. Take 17.5 mg today then resume 15 mg on MWF and 12.5 mg all other days Next INR Check: 11-24-22 Patient educated on the following: medication adherence Positive ROS findings are: n/a, no positive findings Georgie was instructed to notify [facility] of any unusual bruising or active/uncontrollable bleeding, medication changes within 24 hours, missed doses, dietary changes, illnesses or hospitalizations, and upcoming surgeries. Patient given verbal instructions. Patient expressed understanding utilizing the teach back method. Time spent 10 Minutes TIFFANIE Mcfarlane, PharmD, BCPS documented in this [facility]07-11-[address] [facility]06-19-2023 History of Present illness Narrative* Devika Higuera RPh - 10/19/2022 4:30 PM EDT Images from the original note were not included. [facility] ([facility]) Anticoagulation Clinic [address] [place] [address], [address], [place] [address] Subjective ERIC Georgie (1970) presents to the [facility] clinic today for follow-up warfarin visit. 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 and has a goal INR 2.5-3.5. Pt has Coumadin 5mg tablets and at last visit was instructed to take 12.5 mg daily except 15 mg MWF. Pt confirms taking this dose and adherence to current regimen: no, Ran out over the weekend and only took 5mg Wednesday, none Wednesday. Any changes in prescriptions, OTC, and/or herbal medications: no Changes in alcohol or tobacco use: no Any recent hospitalizations or ED visits: no Any recent falls or head trauma: no Any changes in diet (vit K): no Upcoming surgeries or procedure: yes, 11/10 EGD instructions provided today Does pt need refills on warfarin prescription: yes, will send 10mg tablets Review of Systems Objective Vitals: 10/19/22 1407 BP: 127/71 Pulse: 67 Weight: 247 lb 3.2 oz (112 kg) Assessment Lab Results Component Value Date INR 1.6 (H) 10/19/2022 INR 3.5 (A) 10/06/2022 INR 3.4 (A) 09/22/2022 INR 4.1 (A) 09/09/2022 INR 3.5 (A) 08/25/2022 Plan INR is subtherapeutic d/t running out of warfarin this weekend - instructed him to plan ahead in the future as we are more than happy to send refills. Dosinmg today then 15mg MWF, 12.5mg all other days. Instructed to bridge with lovenox 120mg BID until 10/22. Next INR Check: 10/26 Patient educated on the following: medication adherence, Vitamin K content and consistency, and procedure instructions Patient care coordination completed: Refill Sent - warfarin 10mg and lovenox Positive ROS findings are: n/a - no positive findings Georgie was instructed to notify [facility] of any unusual bruising or active/uncontrollable bleeding, medication changes within 24 hours, missed doses, dietary changes, illnesses or hospitalizations, and upcoming surgeries. Patient given written instructions. Patient expressed understanding utilizing the teach back method. Discharged ambulatory in no apparent distress. Time spent 20 Minutes Devika Higuera RPh documented in this [facility]06-19-2023 History of Present illness Narrative* Gayathri Sky PA-C - 10/19/2022 10:16 AM EDT CHIEF COMPLAINT: Patient presents with: Elevated Bilirubin: Labs,CT,US and HIDA scan done in August. Hx of gallstones bloating after eating.GES 10/05/22 in [place] HPI: Georgie Elizabeth is a 52 year old male who presents for Elevated Bilirubin (Labs,CT,US and HIDA scandone in August. Hx of gallstones bloating after eating. GES 10/05/22 in [place]). Surg hx positive for MVR,urethroplasty, adenoidectomy. Admits to periumbilical pain since 08/2021. Was tried on Prilosec 14 days per PCP, was taken off once gallstones were seen on imaging. Seen by another GI and told to stop PPI, follow up GES was normal. Scheduled for EGD 11/10/2022 with [facility]. Admits to persistent postprandial bloating/pains. Denies heartburn, indigestion, dysphagia. GES 10/2022 IMPRESSION: 1. NORMAL 99m Tc sulfur colloid semi-solid phase (oatmeal) gastric emptying imaging examination. A. There is normal and preserved semi-solid phase gastric emptying compared to normal controls. (Marianne gomez al, J Nucl Med Tech 38: 186, 2010). HIDA 08/2022 IMPRESSION: 1. Gallbladder is visualized. Patent cystic and common bile ducts. No scintigraphic evidence of acute cholecystitis. 2. Normal gallbladder ejection fraction. CT abd 08/2022 IMPRESSION: Interval increase in size of gallbladder stones. Nonobstructing left renal calculi. Interval stable to slight increase in size of low-attenuation lesion or cyst in the left kidney. Colonic diverticulosis without evidence of diverticulitis. Colonoscopy 2021 diverticulosis, 5 mm polyp Component Latest Ref Rng & Units 08/12/2022 08/19/2022 08/19/2022 9:12 AM 9:12 AM Protein, Total 6.3 - 8.0 g/dL 7.0 7.2 Albumin 3.9 - 4.9 g/dL 4.4 4.5 Calcium 8.5 - 10.2 mg/dL 9.5 9.9 Bilirubin, Total 0.2 - 1.3 mg/dL 1.8 (H) 1.5 (H) 1.5 (H) Alkaline Phosphatase 38 - 113 U/L 72 73 AST 14 - 40 U/L 19 27 ALT 10 - 54 U/L 20 20 Glucose 74 - 99 mg/dL 118 (H) 102 (H) BUN 9 - 24 mg/dL 16 14 Creatinine 0.73 - 1.22 mg/dL 0.90 0.94 Sodium 136 - 144 mmol/L 137 139 Potassium 3.7 - 5.1 mmol/L 4.7 4.9 Chloride 97 - 105 mmol/L 102 104 CO2 22 - 30 mmol/L 27 27 Anion Gap 9 - 18 mmol/L 8 (L) 8 (L) eGFR >=60 mL/min/1.73m 103 98 WBC 3.70 - 11.00 k/uL 5.79 6.07 RBC 4.20 - 6.00 m/uL 5.52 5.77 Hemoglobin 13.0 - 17.0 g/dL 15.2 15.5 Hematocrit 39.0 - 51.0 % 45.9 48.4 MCV 80.0 - 100.0 fL 83.2 83.9 MCH 26.0 - 34.0 pg 27.5 26.9 MCHC 30.5 - 36.0 g/dL 33.1 32.0 RDW-CV 11.5 - 15.0 % 13.5 13.7 Platelet Count 150 - 400 k/uL 337 346 MPV 9.0 - 12.7 fL 9.0 9.4 Absolute nRBC <0.01 k/uL <0.01 <0.01 Bilirubin, Unconjug <1.4 mg/dL 1.2 Bilirubin, Conjug <0.2 mg/dL 0.3 (H) Record Review: [facility] / Outside records reviewed. PAST MEDICAL HISTORY Diagnosis Date Anticoagulation adequate Depression with anxiety obsessive compulsive disorder HTN (hypertension) Hyperlipemia Hypertrophic obstructive cardiomyopathy (HCC) s/p myectomy Mitral stenosis s/p re-do MVR with mechanical valve 11/13/13 Obstructive sleep apnea SBE (subacute bacterial endocarditis) prophylaxis monitoring [place] [facility] [place] Cardenas [place]x. [phone] Urethral stricture PAST SURGICAL HISTORY Procedure Laterality Date ADENOIDECTOMY HX 05/03/1986 COLONOSCOPY 05/03/2011 COLONOSCOPY SCREENING 01/08/2022 PAST SURGICAL HISTORY OF 01/23/2013 mitral valve repair, #32 Valerie ring, ligation of left atrial appendage PAST SURGICAL HISTORY OF 11/13/2013 Myectomy and MVr with de leon band and valvuloplasty. PAST SURGICAL HISTORY OF 11/20/2013 redo sternotomy MVR with mechanical ON X valve (27/29 mm). PAST SURGICAL HISTORY OF 01/29/2015 BMG Urethroplasty TONSILLECTOMY HX 05/03/1986 Allergies: ALLERGIES Allergen Reactions Codeine Mental Status Change Medications: ursodiol (ACTIGALL) 300 mg capsule^^Disp: ^Rfl: Dexlansoprazole 60 mg CpDM^^Disp: ^Rfl: metoprolol succinate ER (TOPROL XL) 50 mg 24 hr tablet^Take 1.5 tablets by mouth once daily.^Disp: 135 tablet^Rfl: 3 CPAP/BIPAP/OTHER^Continue ASV with current settings of EPAP 5 cm H2O with PS 4- 12 cmH2O. Lifetime supplies for ASV, including patient preferred mask, head gear, heated tubing, humidity, filters, chin strap. Dx: Obstructive Sleep Apnea G47.33 DME: ROSEMARIE ^Disp: 1 Each^Rfl: 0 aspirin 81 mg chewable tablet^Take 1 tablet by mouth once daily.^Disp: ^Rfl: BIPAP^Please service machine, humidifier causing issues. Lifetime supplies G47.33 DOREEN^Disp: 1 Device^Rfl: 0 BIPAP^ASV EPAP min 5 cm H20, PS 4-12 cm H20. Mask fitting to consider Dream wear FFM. Provide lifetime supplies including tubing, heated humidity, filters. Dx: G47.33 & G47.37.^Disp: 1 Device^Rfl: 0 BIPAP^Fax 30 day download report to [phone] to assess usage and residual AHI after receipt of replacement ASV.^Disp: 1 Device^Rfl: 0 rosuvastatin (CRESTOR) 20 mg tablet^Take 20 mg by mouth once daily.^Disp: ^Rfl: Melatonin 5 mg tab^Take by mouth as needed. ^Disp: ^Rfl: warfarin 7.5 mg tab 7.5 mg, warfarin 5 mg tab 5 mg^Take 12.5 mg by mouth daily as directed. 12.5 mgfor 7 days week^Disp: ^Rfl: ACETAMINOPHEN (TYLENOL EXTRA STRENGTH ORAL)^Take by mouth as needed.^Disp: ^Rfl: omeprazole (PRILOSEC) 40 mg capsule^Take 1 capsule by mouth once daily.^Disp: 30 capsule^Rfl: 0 FAMILY HISTORY Problem Relation Age of Onset other (Diverticulosis) Mother Heart Father [place], sudden 50's Colon Cancer Sister Heart Paternal Grandmother Employer And Job Title: [employer] Years Of Education Completed: 16 years Marital Status: Single with no children Social History Tobacco Use Smoking status: Never Smokeless tobacco: Never Vaping Use Vaping Use: Never used Substance Use Topics Alcohol use: No Comment: rarely Drug use: Never Review of Systems: Review of Systems Respiratory: Positive for apnea. Gastrointestinal: Positive for abdominal distention and abdominal pain. Gas All other systems reviewed and are negative. Are you taking any blood thinners? No Physical Examination: BP 112/72 Pulse 70 Ht 193 cm (6' 4) Wt 111.1 kg (245 lb) BMI 29.82 kg/m Physical Exam Constitutional: General: He is not in acute distress. Appearance: Normal appearance. He is normal weight. He is not ill-appearing, toxic-appearing or diaphoretic. HENT: Head: Normocephalic and atraumatic. Nose: Nose normal. Eyes: General: No scleral icterus. Right eye: No discharge. Left eye: No discharge. Extraocular Movements: Extraocular movements intact. Conjunctiva/sclera: Conjunctivae normal. Pupils: Pupils are equal, round, and reactive to light. Cardiovascular: Rate and Rhythm: Normal rate and regular rhythm. Pulses: Normal pulses. Heart sounds: Normal heart sounds. No murmur heard. No friction rub. No gallop. Comments: MVR Pulmonary: Effort: No respiratory distress. Breath sounds: Normal breath sounds. No stridor. No wheezing, rhonchi or rales. Chest: Chest wall: No tenderness. Abdominal: General: Abdomen is flat. Bowel sounds are normal. There is no distension. Palpations: Abdomen is soft. There is no mass. Tenderness: There is no abdominal tenderness. There is no right CVA tenderness, left CVA tenderness, guarding or rebound. Hernia: No hernia is present. Musculoskeletal: General: Normal range of motion. Cervical back: Normal range of motion and neck supple. Skin: General: Skin is warm and dry. Neurological: General: No focal deficit present. Mental Status: He is alert and oriented to person, place, and time. Psychiatric: Mood and Affect: Mood normal. Behavior: Behavior normal. Assessment/Plan (R10.84) Generalized postprandial abdominal pain (primary encounter diagnosis) (R17) Elevated bilirubin (K80.20) Multiple gallstones 1. Generalized postprandial abdominal pain - CONSULT TO GENERAL SURGERY; Future - dicyclomine (BENTYL) 20 mg tablet; Take 1 tablet by mouth three times daily as needed (for abdominal pain). Dispense: 60 tablet; Refill: 1 - Has tried PPI w/o improvement - Start Bentyl PRN - Scheduled for EGD w/ [place] 11/10/2022, advised obtaining this as scheduled to r/o Celiac, active GERD - Pt interested in getting surgical opinion regarding gallstones. Informed that while biliary colicis possible, given normal HIDA, other etiologies for pain need to be ruled out EGD. They are agreeable to wait for surg consult until after EGD is performed. Referral placed - Previous GI placed on Ana M to manage cholelithiasis. Informed that given his degree of cholelithiasis this is unlikely to be helpful, advised to d/c 2. Elevated bilirubin - CONSULT TO GENERAL SURGERY; Future 3. Multiple gallstones - CONSULT TO GENERAL SURGERY; Future I spent a total of 30 minutes on the date of the service which included preparing to see the patient, [id number] patient care, completing clinical documentation, obtaining and/or reviewing separately obtained history, performing a medically appropriate examination, counseling and educating the pat ient/family/caregiver, ordering medications, tests, or procedures, communicating with other HCPs (not separately reported), independently interpreting results (not separately reported), communicatingresults to the patient/family/caregiver, and care coordination (not separately reported). Gayathri Sky PA-C October 19, 2022 10:40 AM documented in this encounterPromedica Defiance [facility]05-10-2023 Miscellaneous Notes* Telephone Encounter - Naida Lehman - 09/09/2022 10:23 AM EDT Call from patient requesting refill. Requested Prescriptions Pending Prescriptions Disp Refills metoprolol succinate ER (TOPROL XL) 50 mg 24 hr tablet 135 tablet 3 Sig: Take 1.5 tablets by mouth once daily. Patient last seen 04/10/22 Naida Lehman documented in this encounterPromedica Defiance [facility] Hospital05-10-2023 History of Present illness Narrative* Marva Javed MA - 09/09/2022 6:15 AM EDT INR received via fax. * Marva Javed MA - 09/09/2022 6:15 AM EDT Images from the original note were not included. [facility] ([facility]) Anticoagulation Clinic [address] [place] [address], [address], [place] [address] Subjective HPI Georgie (1970) had INR completed by patient's own home meter, visit was completed by phone- audio only. 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 and has a goal INR 2.5-3.5. Pt has Coumadin 5mg tablets and at last visit was instructed to take 15 mg on MWF and 12.5 mg all other days. Pt confirms taking this dose and adherence to current regimen. Any medication changes: no Any changes in diet (vit K): yes, eating a little different. Originally was thought to have gallstones now it's something with his stomach. He is eating more seeds - flax, pumpkin and braden Any falls or head trauma: no Any bleeding: no Any SOB, chest pain, swelling: no Refills needed: no Any other changes or concerns: no Review of Systems Assessment Lab Results Component Value Date INR 4.1 (A) 09/09/2022 INR 3.5 (A) 08/25/2022 INR 2.4 (A) 08/03/2022 INR 2.4 (A) 07/20/2022 INR 2.5 (A) 07/13/2022 Plan Dosing as below: Already took his dose today, so he will take 10 mg tomorrow then resume 15 mg on MWF and 12.5 mg all other days Next INR Check: 09-21-22 Patient educated on the following: medication adherence and dietary/lifestyle considerations Positive ROS findings are: none Georgie was instructed to notify [facility] of any unusual bruising or active/uncontrollable bleeding, medication changes within 24 hours, missed doses, dietary changes, illnesses or hospitalizations, and upcoming surgeries. Patient given verbal instructions. Patient expressed understanding utilizing the teach back method. Time spent 10 Minutes TIFFANIE Mcfarlane, PharmD, BCPS documented in this [facility]04-25-2023 History of Present illness Narrative* Petra Damico MA - 08/25/2022 6:00 AM EDT Inr received via fax * Marychuy Espinoza MA - 08/25/2022 6:00 AM EDT INR received via fax * Marychuy Mcgowan RPh - 08/25/2022 6:00 AM EDT Images from the original note were not included. [facility] ([facility]) Anticoagulation Clinic [address] [place] [address], [address] [place] [address] Serenity ERIC Serrato (1970) had INR completed by patient's own home meter, visit was completed by phone- audio only. 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 and has a goal INR 2.5-3.5. Pt has Coumadin 5mg tablets and at last visit was instructed to take 17.5 mg x 1 then resume 15 mg on MWF and 12.5 mg all other days. Pt confirms taking this dose and adherence to current regimen. Any medication changes: no Any changes in diet (vit K): no Any falls or head trauma: no Any bleeding: no Any SOB, chest pain, swelling: no Refills needed: no Any other changes or concerns: yes, currently has gallstones. He had some test done last week whichshowed his bilirubin is high and some other things. He is having trouble eating - his stomach hurtsdue to the stones. He is seeing his doctor tomorrow to go over test results. I asked him to call and let us know what they decided to do. Review of Systems Assessment Lab Results Component Value Date INR 3.5 (A) 08/25/2022 INR 2.4 (A) 08/03/2022 INR 2.4 (A) 07/20/2022 INR 2.5 (A) 07/13/2022 INR 4.5 (A) 07/10/2022 Plan Dosing as below: Continue taking 15 mg on MWF and 12.5 mg all other days. Will need to monitor for INR changes closely since he has gallstones which are affecting his ability to eat. Next INR Check: 09-08-22 Patient educated on the following: medication adherence Positive ROS findings are: none Georgie was instructed to notify [facility] of any unusual bruising or active/uncontrollable bleeding, medication changes within 24 hours, missed doses, dietary changes, illnesses or hospitalizations, and upcoming surgeries. Patient given verbal instructions. Patient expressed understanding utilizing the teach back method. Time spent 10 Minutes TIFFANIE Mcfarlane, PharmD, BCPS documented in this [facility]04-21-2023 History of Present illness Narrative* Melina Arrington, RT(R) - 08/21/2022 2:00 PM EDT RADIOLOGY SERVICE PROGRESS NOTE SERVICE DATE: 08/21/2022 SERVICE TIME: 2:05 PM PATIENT IDENTITY VERIFICATION COMPLETED USING TWO (2) STANDARD IDENTIFIERS: Name and Date of confirmed by patient verbally FALL SCREENING: Has the patient had 2 falls in the last year or 1 fall with injury or currently using an Ambulatory Assistive Device (Walker, Cane, Wheelchair, Crutches, etc.)? No PATIENT GENDER DATA: .male ALLERGIES: Reviewed and unchanged MEDICATIONS REVIEWED: No PATIENT RELEVANT IMPLANT DATA REVIEWED: Not Applicable CREATININE: Creatinine Date Value Ref Range Status 08/19/2022 0.94 0.73 - 1.22 mg/dL Final 08/12/2022 0.90 0.73 - 1.22 mg/dL Final 08/05/2015 1.09 0.70 - 1.40 mg/dL Final Estimated Glomerular Filtration Rate Date Value Ref Range Status 08/19/2022 98 >=60 mL/min/1.73m Final Comment: Estimated Glomerular Filtration Rate (eGFR) is calculated using the 2020 CKD-EPI creatinine equation. This equation utilizes serum creatinine, sex, and age as parameters. The creatinine assay has traceable calibration to isotope dilution- mass spectrometry. Refer to KDIGO guidelines for clinical interpretation. In patients with unstable renal function, e.g. those with acute kidney injury, the eGFRmay not accurately reflect actual GFR. eGFR- Date Value Ref Range Status 08/05/2015 >60 Final P.O.C.T. RESULTS: N/A August 21, [address] PERFORMED: No IV SITE: Ambulatory: A peripheral IV was started in the Left antecubital site with a Angio cath: 24gauge. POST EXAM PIV STATUS: Discontinued PROCEDURE TYPE: NM INJECT: Hepatobiliary with Gallbladder EF. 5.6 mCi Tc99m CHOLETEC. CCK 2.36 micrograms IV at 15:13. ADMINISTRATION TIME: 14:10 PATIENT DISCHARGED TO: Ambulatory patient, left MA department area. A Diagnostic radioactive procedure has taken place, with no further precautions necessary other than routine body substance precautions. More information regarding radiation safety can be found usingthis link: [email or web address] SIGNATURE: CHARLOTTE Veloz) PATIENT NAME: Georgie Elizabeth DATE: August 21, 2022 TIME: 2:15 PM PAGER/CONTACT #: documented in this encounterPromedica Defiance [facility] Hospital04-19-2023 Miscellaneous Notes* Telephone Encounter - Cindy Qiu APRN.[employer]PRENTICE - 08/19/2022 12:55 PM EDT Georgie Elizabeth last saw Dr. Silva on 03/13/2020 for cysto after having UTI; had urethroplastyin 2014. Cysto was normal, and plan was to follow up PRN. Called Georgie Shahidse. He is scheduled for NM HEPATOBILIARY because he is having problems with hisgallbladder. Not having any bothersome urinary symptoms. Advised that CMP that was collected today will confirm normal kidney function, but that NM studies are not typically nephrotoxic. He will follow up with Dr. Silva if bothersome urinary symptoms develop. Cindy Qiu APRN.MANDY * Telephone Encounter - Cindy Qiu APRN.CNP - 08/19/2022 12:53 PM EDT ----- Message from Marychuy Bonner Patient Service Spec sent at 08/19/2022 11:55 AM EDT ----- Regarding: upcoming NM test Contact: Georgie is getting a NM test in [place] on 08/21 and wanted to make sure that wouldn't be an issue for his urinary system. Please advise and thank you, Marychuy documented in this encounterPromedica Defiance [facility]04-13-2023 Miscellaneous Notes* [facility] - RT Little(R) - 08/13/2022 4:15 PM EDT Radiology Service Progress Note PATIENT NAME: Georgie Elizabeth DATE OF SERVICE: August 13, 2022 TIME: 4:02 PM PATIENT IDENTITY VERIFICATION COMPLETED USING TWO (2) IDENTIFIERS: Name and Date of confirmedby patient verbally. FALL SCREENING: Has the patient had 2 falls in the last year or 1 fall with injury or currently using an Ambulatory Assistive Device (Walker, Cane, Wheelchair, Crutches, etc.)? No PATIENT GENDER DATA: Male PATIENT RELEVANT IMPLANT DATA REVIEWED: Not Applicable RADIOLOGY DEPARTMENT: Ultrasound PERIPHERAL IV DATA: Not applicable SIGNED BY: RT Little(R) August 13, 2022 4:02 PM documented in this encounterPromedica Defiance [facility]04-13-2023 Miscellaneous Notes* Telephone Encounter - Suzanne Gar - 08/13/2022 9:39 AM EDT Patient scheduled for today in [place]. * Telephone Encounter - Suniat Powers RN - 08/12/2022 4:07 PM EDT Please call patient at [phone] to schedule STAT US abdomen right upper quadrant. Sunita Powers RN documented in this encounterPromedica Defiance [facility] Hospital04-12-2023 Miscellaneous Notes* Telephone Encounter - Stanislaw Rosenthal Ma - 08/12/2022 3:49 PM EDT Patient notified, verbalized understanding and transferred to schedulers. * Telephone Encounter - Dina Cope APRN.CNP - 08/12/2022 3:39 PM EDT Please let the patient know CT abdomen and pelvis was negative for diverticulitis, appendicitis andobstructing kidney stones. It did show a significant number of gallstones with an increase in size of the stones. This may be the source of his pain, the best way to evaluate the gallbladder is with an ultrasound. Labs looked okay except bilirubin was elevated, this could correlate with gallbladderdisease. Please schedule patient for ultrasound. Dina Cope APRN.CNP documented in this encounterPromedica Defiance [facility] Hospital04-12-2023 History of Present illness Narrative* Roberto William, RT(R) - 08/12/2022 2:20 PM EDT Radiology Service Progress Note DATE OF SERVICE: August 12, 2022 TIME: 3:10 PM PATIENT IDENTITY VERIFICATION COMPLETED USING TWO (2) STANDARD IDENTIFIERS: Name and Date of confirmed by patient verbally. FALL SCREENING: Has the patient had 2 falls in the last year or 1 fall with injury or currently using an Ambulatory Assistive Device (Walker, Cane, Wheelchair, Crutches, etc.)? No PATIENT GENDER DATA: Male PATIENT RELEVANT IMPLANT DATA REVIEWED: Yes ALLERGIES: Reviewed and unchanged CONTRAST ALLERGY: NO. EXAM: CT -CONTRAST INDUCED NEPHROPATHY RISK FACTORS: Not applicable CREATININE: Creatinine Date Value Ref Range Status 08/12/2022 0.90 0.73 - 1.22 mg/dL Final 08/05/2015 1.09 0.70 - 1.40 mg/dL Final 08/05/2015 1.03 0.70 - 1.40 mg/dL Final Estimated Glomerular Filtration Rate Date Value Ref Range Status 08/12/2022 103 >=60 mL/min/1.73m Final Comment: Estimated Glomerular Filtration Rate (eGFR) is calculated using the 2020 CKD-EPI creatinine equation. This equation utilizes serum creatinine, sex, and age as parameters. The creatinine assay has traceable calibration to isotope dilution- mass spectrometry. Refer to KDIGO guidelines for clinical interpretation. In patients with unstable renal function, e.g. those with acute kidney injury, the eGFRmay not accurately reflect actual GFR. eGFR- Date Value Ref Range Status 08/05/2015 >60 Final P.O.C.T. RESULTS: POC done: Yes, See Lab Tab August 12, 2022 TREATMENT: N/A PERIPHERAL IV DATA: Ambulatory: A peripheral IV was started in the Left antecubital site with a Angio cath: 22 gauge. RADIOLOGY DEPARTMENT: CT; Exam(s) Completed: Abdomen/Pelvis SIGNATURE: RT Irma(R) PATIENT NAME: Georgie Elizbaeth DATE: August 12, 2022 TIME: 3:10 PM documented in this encounterPromedica Defiance [facility] Hospital04-11-2023 History of Present illness Narrative* Geronimo King APRN.[facility] - 08/11/2022 6:34 PM EDT Subjective HPI Nontoxic-appearing male presents urgent care chief complaint abdominal pain. Duration of symptoms 4days. Associated symptoms generalized abdominal pain. States pain was worse on Wednesday. Has progressively improved. Has not used any OTC medications. Rates pain 4-5 out of 10 currently. States he also is fatigue. States he is able to eat and drink. Nothing exacerbates or alleviates abdominal pain.Denies any nausea vomiting or fevers with abdominal pain. Denies any known sick contacts. Denies any change in bowel or bladder habit. Past medical history prescription medication use allergies reviewed. .Patient presents with: Abdominal Pain: Pt reported abd pain, fatigue, x4 days. PAST MEDICAL HISTORY Diagnosis Date Anticoagulation adequate Depression with anxiety obsessive compulsive disorder HTN (hypertension) Hyperlipemia Hypertrophic obstructive cardiomyopathy (HCC) s/p myectomy Mitral stenosis s/p re-do MVR with mechanical valve 11/13/13 Obstructive sleep apnea SBE (subacute bacterial endocarditis) prophylaxis monitoring Sleep apnea DME Adriel Cardenas fx. [phone] Urethral stricture PAST SURGICAL HISTORY Procedure Laterality Date ADENOIDECTOMY HX 1986 COLONOSCOPY 2011 PAST SURGICAL HISTORY OF 01/23/13 mitral valve repair, #32 Valerie ring, ligation of left atrial appendage PAST SURGICAL HISTORY OF 11/13/13 Myectomy and MVr with de leon band and valvuloplasty. PAST SURGICAL HISTORY OF 11/20/13 redo sternotomy MVR with mechanical ON X valve (27/29 mm). PAST SURGICAL HISTORY OF 01/29/15 BMG Urethroplasty TONSILLECTOMY HX 1986 ALLERGIES Codeine MEDICATIONS aspirin 81 mg chewable tablet^Take 1 tablet by mouth once daily.^Disp: ^Rfl: metoprolol succinate ER (TOPROL XL) 50 mg 24 hr tablet^Take 1.5 tablets by mouth once daily.^Disp: 135 tablet^Rfl: 3 BIPAP^ASV EPAP min 5 cm H20, PS 4-12 cm H20. Mask fitting to consider Dream wear FFM. Provide lifetime supplies including tubing, heated humidity, filters. Dx: G47.33 & G47.37.^Disp: 1 Device^Rfl: 0 rosuvastatin (CRESTOR) 20 mg tablet^Take 20 mg by mouth once daily.^Disp: ^Rfl: Melatonin 5 mg tab^Take by mouth as needed. ^Disp: ^Rfl: warfarin 7.5 mg tab 7.5 mg, warfarin 5 mg tab 5 mg^Take 12.5 mg by mouth daily as directed. 12.5 mgfor 7 days week^Disp: ^Rfl: CPAP/BIPAP/OTHER^Continue ASV with current settings of EPAP 5 cm H2O with PS 4- 12 cmH2O. Lifetime supplies for ASV, including patient preferred mask, head gear, heated tubing, humidity, filters, chin strap. Dx: Obstructive Sleep Apnea G47.33 DME: ROSEMARIE ^Disp: 1 Each^Rfl: 0 BIPAP^Please service machine, humidifier causing issues. Lifetime supplies G47.33 DOREEN^Disp: 1 Device^Rfl: 0 BIPAP^Fax 30 day download report to [phone] to assess usage and residual AHI after receipt of replacement ASV.^Disp: 1 Device^Rfl: 0 ACETAMINOPHEN (TYLENOL EXTRA STRENGTH ORAL)^Take by mouth as needed.^Disp: ^Rfl: FAMILY HISTORY Problem Relation Age of Onset Heart Father [place], sudden 50's Heart Paternal Grandmother Social History Tobacco Use Smoking status: Never Smokeless tobacco: Never Vaping Use Vaping Use: Never used Substance Use Topics Alcohol use: No Comment: rarely Drug use: Never BP 120/72 Pulse 79 Temp 36.8 C (98.2 F) (Tympanic) Resp 18 Wt 118.2 kg (260 lb 9.6 oz) SpO2 97% BMI 31.72 kg/m Review of Systems Constitutional: Negative for chills, fever and malaise/fatigue. HENT: Negative for congestion, ear discharge, ear pain, sinus pain and sore throat. Eyes: Negative for blurred vision, pain, discharge and redness. Respiratory: Negative for cough, hemoptysis, sputum production, shortness of breath, wheezing and stridor. Cardiovascular: Negative for chest pain. Gastrointestinal: Positive for abdominal pain. Negative for diarrhea, nausea and vomiting. Musculoskeletal: Negative for myalgias. Skin: Negative for itching and rash. Neurological: Negative for dizziness and headaches. Objective Physical Exam Constitutional: General: He is not in acute distress. Appearance: He is not diaphoretic. HENT: Head: Normocephalic. Mouth/Throat: Mouth: Mucous membranes are moist. Pharynx: Oropharynx is clear. No oropharyngeal exudate or posterior oropharyngeal erythema. Eyes: Conjunctiva/sclera: Conjunctivae normal. Pupils: Pupils are equal, round, and reactive to light. Cardiovascular: Rate and Rhythm: Normal rate and regular rhythm. Heart sounds: Normal heart sounds. Pulmonary: Effort: Pulmonary effort is normal. No tachypnea, accessory muscle usage or respiratory distress. Breath sounds: Normal breath sounds. No stridor. No wheezing, rhonchi or rales. Abdominal: General: Bowel sounds are normal. Palpations: Abdomen is soft. Tenderness: There is generalized abdominal tenderness. There is no right CVA tenderness, left CVA tenderness, guarding or rebound. Musculoskeletal: Cervical back: Normal range of motion and neck supple. No rigidity or tenderness. Lymphadenopathy: Cervical: No cervical adenopathy. Skin: General: Skin is warm and dry. Neurological: Mental Status: He is alert and oriented to person, place, and time. ASSESSMENT/PLAN: 1. Generalized abdominal pain - ICD9: 789.07, ICD10: R10.84 Differentials include kidney stone, constipation, IBS, stomach ulcer. No evidence of acute abdomen.Nontoxic-appearing. Hemodynamically stable. Pain is progressively improving. With ongoing abdominalpain will follow-up with PCP as scheduled for tomorrow morning. Red flags for prompt reevaluation discussed. Supportive therapies discussed. Be seen urgent care or ED for any new worsening or symptoms lasting longer anticipated. Patient verbalized understand agrees plan of care. Geronimo King APRN.MANDY documented in this encounterPromedica Defiance [facility]03-20-2023 History of Present illness Narrative* Britni Benjamin MA - 07/20/2022 6:15 AM EDT INR received via fax. * Roxy Mitchell - 07/20/2022 6:15 AM EDT Images from the original note were not included. [facility] ([facility]) Anticoagulation Clinic [address] [place] [address], [address], [place] [address] Serenity REYES Georgie (1970) had INR completed by patient's own home meter, visit was completed by phone, audio only. 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 and has a goal INR 2.5-3.5. Pt has Coumadin 5mg tablets and at last visit was instructed to take Take 15 mg today then resume 12.5 mg daily. INRs have been running low so trialing an increase in maintenance dose. Pt confirms taking this dose and adherence to current regimen: yes Any changes in prescriptions, OTC, and/or herbal medications: yes, didn't take his baby aspirin allweek last week Changes in alcohol or tobacco use: no Any recent hospitalizations or ED visits: no Any recent falls or head trauma: no Any changes in diet (vit K): no Upcoming surgeries or procedure: no Does pt need refills on warfarin prescription: no Review of Systems Constitutional: Negative for activity change, appetite change and fatigue. HENT: Negative for nosebleeds. Respiratory: Negative for shortness of breath. Cardiovascular: Negative for chest pain and leg swelling. Gastrointestinal: Negative for blood in stool, diarrhea, nausea and vomiting. Genitourinary: Negative for hematuria. Neurological: Negative for weakness, light-headedness and headaches. Hematological: Does not bruise/bleed easily. Assessment Lab Results Component Value Date INR 2.4 (A) 07/20/2022 INR 2.5 (A) 07/13/2022 INR 4.5 (A) 07/10/2022 INR 1.6 (A) 07/07/2022 INR 2.3 (A) 06/23/2022 Plan INR is subtherapeutic d/t unknown Dosing: Take 15mg today then take 12.5mg daily except for Wednesday and Wednesday take 15mg Next INR Check: 07/27/22 Patient educated on the following: medication adherence and rationale for dose change, restart his daily low-dose aspirin Patient care coordination completed: N/A Patient given verbal instructions. Patient expressed understanding utilizing the teach back method. Time spent 8 Minutes Roxy Mitchell, staffed with Ishmael Reyes, BCACP, CACP documented in this [facility]03-13-2023 Telephone encounter Note* Telephone Encounter - Bonnie Holman RPh - 07/13/2022 8:31 AM EDT INR reported by patient [facility] [employer] [facility] Phone: [phone]) 827-449703-13-2023 Miscellaneous Notes* Telephone Encounter - Bonnie Holman RPh - 07/13/2022 8:31 AM EDT INR reported by patient * Telephone Encounter - Selma Godinez RPh - 07/08/2022 1:41 PM EST Patient was receiving an error message on his home reader when he checked his INR yesterday. He suspects it has to do with his cartridge. Patient called to order new strips. Anticipating receiving strips Wednesday or Wednesday. Follow up with patient to confirm he received his strips. If he has not, fax INR order to [facility] for 07/13 because patient will already be going to have labs drawn 07/13. documented in this encounterSSumma Health Wadsworth - Rittman Medical [phone] NoteFaxed annual referral to Dr Thrasher.[facility]03-08-2023 Telephone encounter Note* Telephone Encounter - Selma Godinez RPh - 07/08/2022 1:41 PM EST Patient was receiving an error message on his home reader when he checked his INR yesterday. He suspects it has to do with his cartridge. Patient called to order new strips. Anticipating receiving strips Wednesday or Wednesday. Follow up with patient to confirm he received his strips. If he has not, fax INR order to [facility] for 07/13 because patient will already be going to have labs drawn 07/13. [facility] [id number] History of Present illness Narrative* Marva Javed MA - 07/08/2022 6:15 AM EST INR received via fax. * Selma Godinez, [facility] - 07/08/2022 6:15 AM EST Images from the original note were not included. [facility] ([facility]) Anticoagulation Clinic [address], [address], [place] [id number] Subjective ERIC Georgie (1970) had INR completed by patient's own home meter, visit was completed by phone, audio only. 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 and has a goal INR 2.5-3.5. Pt has Coumadin 5mg tablets and at last visit was instructed to take 15mg boost dose first day then 12.5mg everyday. Pt confirms taking this dose and adherence to current regimen: yes, pt missed one dose and unsure if he may have missed another dose, also took lovenox 120 mg last night Any changes in prescriptions, OTC, and/or herbal medications: no, took 4 amoxicillin yesterday (dentist-cap placed) Changes in alcohol or tobacco use: no Any recent hospitalizations or ED visits: no Any recent falls or head trauma: no Any changes in diet (vit K): no, had kev tea a couple times last week Upcoming surgeries or procedure: no Does pt need refills on warfarin prescription: no Patient has enoxaparin at home: Has 1 box left of 120mg (only used 1 syringe last night). Patient confirmed these are not . Patient uses [facility] on in [place] Review of Systems Constitutional: Negative for activity change, appetite change and fatigue. HENT: Negative for nosebleeds. Respiratory: Negative for shortness of breath. Cardiovascular: Negative for chest pain and leg swelling. Gastrointestinal: Negative for blood in stool, diarrhea, nausea and vomiting. Genitourinary: Negative for hematuria. Neurological: Negative for weakness, light-headedness and headaches. Hematological: Does not bruise/bleed easily. Assessment Lab Results Component Value Date INR 1.6 (A) 07/07/2022 INR 2.3 (A) 06/23/2022 INR 2.6 (A) 06/09/2022 INR 2.9 (A) 05/18/2022 INR 2.6 (A) 04/28/2022 Plan INR is subtherapeutic d/t missed dose (potentially more than one) Dosing: warfarin 17.5 mg today and tomorrow, 15 mg Fri, 12.5 mg Sat and Sun. [place] with lovenox 120 mg tonight, then 120 mg BID tomorrow and Fri, and 120 mg AM on Sat. Most recent weight 259 lb 6.4 oz (118 kg), pt picked up enoxaparin 120 mg syringes on 02/25/22, still has enoxaparin at home and no need to send new prescription. Of note, patient has been low 06/23 and 07/07 visit (possibly d/t missed doses). Consider increasing maintenance plan for patient at next visit. Next INR Check: 07/13/22 Patient educated on the following: dietary/lifestyle considerations and rationale for dose change Patient care coordination completed: N/A Patient given verbal instructions. Patient expressed understanding utilizing the teach back method. Time spent 20 Minutes Elvia Garcia, LaytonD Candidate; staffed with: Selma Godinez RPh documented in this [facility]02-23-2023 Miscellaneous Notes* Telephone Encounter - Rajeev Hernandez LPN - 06/25/2022 9:18 AM EST Faxed order, office notes to: DME name: [facility] fax # [phone] DME Faxed info in patient's chart. documented in this encounterProm[facility] Instructions* Patient Instructions* Cecy Nunn APRN.SHEET METAL WORKER APPRENTICE - 06/24/2022 2:10 PM EST Images from the original note were not included. PLAN: - Continue ASV at current settings of EPAP 5 cmH2O with PS 4-12 cmH2O - Sleep apnea is presently well controlled! Keep up the great work! - Remember to clean your mask and equipment regularly, as directed. - Avoid use of ozone section gang worker, SoClean devices, or UV cleaning devices - Avoid using alcohol or alcohol-containing products on your mask, as this may compromise the integrity of the mask materials and contribute to leak issues - You should be eligible for new supplies approximately every 3-6 months, depending on your insurance coverage. Contact your Durable Medical Equipment (DME) company for new supplies as needed. - Follow up in 12 months with DEOILING MACHINE OPERATOR. - Order will be sent to DME for supplies: [facility] [place] [facility] - Try RemZZZ or Silent Night mask liners to help reduce rash Try cleaning supplies with baby shampoo and water, or gentle dish soap and water. After washing your face in the morning, try a gentle moisturizer for dry, sensitive skin, like Cetaphil (green tub). Flonase use: - 1 spray into each nostril once daily. May increase to twice daily, if needed. - It can take several weeks to reach full effectiveness. Try it for at least a month before determining effectiveness. Side effects: may cause bloody nose or nasal dryness - If this occurs, you may try using nasal saline spray frequently throughout the day to moisten thelining of the nose. You may also try using a humidifier in your home to avoid excessive dryness. - If frequent or severe nosebleeds persist, discontinue Flonase. PAP Supply Guidelines Below are the guidelines for reordering your supplies. You will be responsible for your deductible,co-payments, and out of pocket expenses. Item Medicare & Commercial Insurance Medicaid & HCAP Nasal Mask (no headgear) 1 every 3 months 1 per year Nasal Mask Cushion 1 every month 2 per year Full Face Mask (no headgear) 1 every 3 months 1 per year Full Face Mask Cushion 1 every month *Self-Pay Nasal Pillows 2 every month 2 per year Headgear 1 every 6 months 1 per year Chin Strap 1 every 6 months 2 per year Tubing 1 every 3 months 1 per year Filters: Reusable 1 every 6 months 4 per year Filters: Disposable 2 every month 1 per month Humidifier Chamber(disposable) 1 every 6 months *Self-Pay Your most recent body mass index (BMI) that we have on record is 31.28 kg/m2. Obstructive sleep apnea (DOREEN) worsens with an increase in weight; reduction in weight may improve or resolve your DOREEN. Ifyou are not already seeking treatment, there are resources available at the [facility] such as a nutrition consultation or referral to weight management programs at our [facility] [place]. Please let us know if we can assist with a referral. documented in this encounterPromedica [facility]02-22-2023 History of Present illness Narrative* Cecy Nunn APRN.MANDY - 06/24/2022 1:45 PM EST Images from the original note were not included. [facility] Follow up/ Established patient visit Date of last visit : 09/27/2020 Per last visit: IMPRESSION: Doreen (obstructive sleep apnea) (primary encounter diagnosis) Csa (central sleep apnea) Complex sleep apnea syndrome ECHO 01/23/20 EF = 55 +/- 5%. ECHO 01/20/2019 EF = 62 =/- 5%. Polysomnogram 11/22/2014 revealed primary central sleep apnea with no snoring, sleep disruption, apneas and oxygen desaturation. PAP Titration Study 02/08/2012 showed that a setting of 15/4/5 cmH2O normalized the AHI (0.0) and eliminated snoring. PAP Titration Study 01/25/2012 showed that this was an inadequate CPAP/BIPAP titration study due to persistent apneas on the CPAP and BIPAP S and ST pressures used. PAP Titration Study 01/17/2012 showed frequent central apneas and occasional hypopneas during this CPAP titration. There were rare PAC's. Polysomnogram 12/26/2011 revealed mild DOREEN (AHI of 14) that was associated with a minimum O2 saturation of 89%. Georgie Elizabeth is a 50 year old male with a PMH of Mitral Stenosis, HTN, HPL, Depression with Anxiety, Hypertrophic obstructive cardiomyopathy status post 3 Open Heart Surgeries who presents via office visit for DOREEN and CSA on ASV therapy. - Doing well with PAP therapy. - Denies mask or pressure intolerance. - Compliant and benefiting from treatment. PLAN: - Continue ASV at EPAP 5 cm H20, PS 4-12 cm H20 - Remember to clean your mask and equipment regularly, as directed. - You should be eligible for new supplies approximately every 3-6 months, depending on your insurance coverage. Contact your new Durable Medical Equipment (DME) company - [facility] for new supplies as needed. - Follow up in 12 months virtually with DOREEN. I spent a total of 30 minutes as this was an established patient to me on the date of the service which included preparing to see the patient, [id number] patient care, completing clinical documentation, counseling and educating the patient/family/caregiver and ordering medications, tests, or procedures. Estephanie Mcgee APRN.SHEET METAL WORKER APPRENTICE Here for follow up for DOREEN + CSA Interval history : Patient reports compliance with PAP therapy and perceived benefit of treatment. DOREEN/CSA is well controlled with current treatment. He has a rash on his face from FFM. He is cleaning with SoClean device and SoClean solution. He is using F20 mask with silicone cushion. SLEEP APNEA: A Polysomnogram performed on 11/22/2014 at [facility] revealed primary CSA (AHI of 15; 100% central apneas) that was associated with a minimum O2 saturation of 85% (4% hypopnea scoring; BMI 29.64). ASV titration study completed on 02/08/2012 at [facility] showed that ASV best controlled respiratory events at a max PS of 15 cmH2O, a minimum PS of 4 cmH2O and an EEP of 5 cmH2O (BMI 29.41). A PAP titration study completed on 01/25/2012 at [facility] showed complex sleep apnea uncontrolled with CPAP, BiPAP S, and BiPAP ST, and ASV titration was recommended (BMI 29.41). A PAP titration study completed on 01/17/2012 at [facility] showed frequent central apneas during CPAP titration. A Polysomnogram performed on 12/26/2011 at [facility] revealed mild DOREEN (AHI of 14; 15 obstructive apneas, 5 central apneas, 0 mixed; 7% central events) that was associated with a minimum O2 saturation of89% (BMI 29.43). Sleep apnea type : DOREEN, and CSA Most Recent Apnea-Hypopnea Index (AHI): 15 Treatment : ASV DME: [facility] PAP History: Uses ASV for 6.5-7 hours per night, 7 nights per week. Current PAP setting: EPAP 5 cm H2O with PS 4-12 cmH2O Difficulties with ASV: None Reviewed objective PAP compliance data: Yes Per download from 04/25/2022 - 05/24/2022, patient uses ASV an average of 6.5-7 hours, and ASV use is >/= 4 hours on 97% of nights; Current setting of EPAP 5 cmH2O with PS 4-12 cmH2O is controlling sleep apnea well (residual AHI 0.1); no high mask leak. Mask type: full face mask - AirFit F20, size S Mask issues: skin irritation Uses chin strap: No Uses humidity: Yes, distilled water only Uses So Clean device. There is a perceived benefit by the patient. PATIENT-ENTERED QUESTIONNAIRE SLEEP SCORES Sleep Questions 09/27/2020 Reason for visit: Sleep apnea Average hours slept in 24 hours: 6 Average hours of CPAP per night: - Percent of nights CPAP used at least 4 hours: - Accidents or near accidents due to drowsy drivin [place] Sleepiness Scale 02/07/2019 09/27/2020 Score 9 9 (No daytime sleepiness) PROMIS CAT Sleep Disturbance 02/07/2019 09/27/2020 PROMIS Sleep Disturbance T-Score 56 (mild) 56 (mild) Insomnia Severity Index 08/30/2017 02/07/2019 09/27/2020 Score 10 12 13 PHQ-9 08/30/2017 02/07/2019 09/27/2020 Score 5 7 7 PROMIS Global Health - (T-Scores - the mean of general population = 50. Five points is a clinicallymeaningful difference.) 02/07/2019 09/27/2020 06/18/2022 Physical T-Score 44.9 42.3 47.7 Mental T-Score 38.8 41.1 45.8 PMH, PSH, SH: Reviewed SLEEP RELATED ROS Review of Systems Constitutional: Positive for fatigue. HENT: Positive for congestion. Respiratory: Negative for cough and difficulty breathing. Cardiovascular: Negative for chest pain and palpitations. ALLERGIES Allergen Reactions Codeine Mental Status Change CURRENT MEDICATIONS: aspirin 81 mg chewable tablet^Take 1 tablet by mouth once daily.^Disp: ^Rfl: metoprolol succinate ER (TOPROL XL) 50 mg 24 hr tablet^Take 1.5 tablets by mouth once daily.^Disp: 135 tablet^Rfl: 3 BIPAP^Please service machine, humidifier causing issues. Lifetime supplies G47.33 DOREEN^Disp: 1 Device^Rfl: 0 BIPAP^ASV EPAP min 5 cm H20, PS 4-12 cm H20. Mask fitting to consider Dream wear FFM. Provide lifetime supplies including tubing, heated humidity, filters. Dx: G47.33 & G47.37.^Disp: 1 Device^Rfl: 0 BIPAP^Fax 30 day download report to [phone] to assess usage and residual AHI after receipt of replacement ASV.^Disp: 1 Device^Rfl: 0 rosuvastatin (CRESTOR) 20 mg tablet^Take 20 mg by mouth once daily.^Disp: ^Rfl: Melatonin 5 mg tab^Take by mouth as needed. ^Disp: ^Rfl: warfarin 7.5 mg tab 7.5 mg, warfarin 5 mg tab 5 mg^Take 12.5 mg by mouth daily as directed. 12.5 mgfor 7 days week^Disp: ^Rfl: ACETAMINOPHEN (TYLENOL EXTRA STRENGTH ORAL)^Take by mouth as needed.^Disp: ^Rfl: BP 129/85 (BP Site: Right Arm, BP Position: Sitting, BP Cuff Size: Large Adult) Pulse 72 Temp 36 C (96.8 F) Resp 20 Ht 193 cm (6' 4) Wt 116.6 kg (257 lb) SpO2 93% BMI 31.28 kg/m PHYSICAL EXAMINATION: General appearance: NAD, well groomed HEENT: Normocephalic, atraumatic Neuro: Awake, alert, memory grossly intact, speech is fluent Heart: RRR Respiratory: No increased work of breathing; able to speak in complete sentences Psych: Appropriate, normal affect IMPRESSION: Central sleep apnea (primary encounter diagnosis) Doreen (obstructive sleep apnea) Central sleep apnea treated with adaptive servo-ventilation (asv) device Facial rash Georgie Elizabeth is a 52 year old male with PMH of CSA + DOREEN on ASV, HOCM, HTN, LBBB, mechanical heart valve, mitral stenosis, and class I obesity (BMI 31.28). He has had 3 cardiac surgeries. His mostrecent sleep study was completed about 1 year following his last cardiac surgery. (A Polysomnogram performed on 11/22/2014 at [facility] revealed primary CSA (AHI of 15; 100% central apneas) that was associated with a minimum O2 saturation of 85% (4% hypopnea scoring; BMI 29.64).) Patient reports compliance with PAP therapy and perceived benefit of treatment. Per download from 04/25/2022 - 05/24/2022, patient uses ASV an average of 6.5-7 hours, and ASV use is >/= 4 hours on 97% of nights; Current s etting of EPAP 5 cmH2O with PS 4-12 cmH2O is controlling sleep apnea well (residual AHI 0.1); no high mask leak. He has a rash on his face from FFM (along maxilla and bridge of nose). He is cleaning with SoClean device and SoClean solution. He is using F20 mask with silicone cushion. Claudio FFM provided today to try avoiding pressure over site of current rash. PLAN: - Continue ASV at current settings of EPAP 5 cmH2O with PS 4-12 cmH2O - Sleep apnea is presently well controlled! Keep up the great work! - Remember to clean your mask and equipment regularly, as directed. - Try [employer] Generation free & clear dish soap or baby shampoo - Avoid use of ozone section gang worker, SoClean devices, or UV cleaning devices - Avoid using alcohol or alcohol-containing products on your mask, as this may compromise the integrity of the mask materials and contribute to leak issues - Try RemZZZ or Silent Night mask liners to help reduce rash - You should be eligible for new supplies approximately every 3-6 months, depending on your insurance coverage. Contact your Durable Medical Equipment ([employer]) company for new supplies as needed. - Order will be sent to [employer] for supplies: [facility] [place] [facility] - Follow up in 12 months with APRN. Cecy Nunn APRN.MANDY I spent a total of 35 minutes on the date of the service which included preparing to see the patient, onju-lu-epya patient care, completing clinical documentation, obtaining and/or reviewing separately obtained history, performing a medically appropriate examination, counseling and educating the pat ient/family/caregiver, and ordering medications, tests, or procedures. documented in this encounterPromed[facility]02-21-2023 History of Present illness Narrative* Britni Benjamin MA - 06/23/2022 6:00 AM EST INR received via fax. * Marychuy Mcgowan [facility] - 06/23/2022 6:00 AM EST Images from the original note were not included. [facility] [address] [place] [address], [address] [place] [address] Subjective ERIC Georgie (1970) had INR completed by patient's own home meter, visit was completed by phone- audio only. 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 and has a goal INR 2.5-3.5. Pt has Coumadin 5mg tablets and at last visit was instructed to take 12.5 mg daily. Pt confirms to missing his dose on Wednesday. Any medication changes: no Any changes in diet (vit K): no Any falls or head trauma: no Any bleeding: no Any SOB, chest pain, swelling: no Refills needed: no Any other changes or concerns: no Review of Systems Assessment Lab Results Component Value Date INR 2.3 (A) 06/23/2022 INR 2.6 (A) 06/09/2022 INR 2.9 (A) 05/18/2022 INR 2.6 (A) 04/28/2022 INR 3.1 (A) 04/14/2022 Plan Dosing as below: Slightly subtherapeutic due to missed dose Wednesday. Take 15 mg today then resume 12.5 mg daily Next INR Check: 07-07-22 Patient educated on the following: medication adherence Positive ROS findings are: none Georgie was instructed to notify [facility] of any unusual bruising or active/uncontrollable bleeding, medication changes within 24 hours, missed doses, dietary changes, illnesses or hospitalizations, and upcoming surgeries. Patient given verbal instructions. Patient expressed understanding utilizing the teach back method. Time spent 10 Minutes TIFFANIE Mcfarlane, PharmD, BCPS documented in this encounterSSumma Health Wadsworth - Rittman Medical [phone] Instructions* Patient Instructions* Dina Cope APRN.CNP - 06/19/2022 1:18 PM EST Recombinant shingles vaccine (Shingrix) is recommended; 2 doses 2-6 months apart. Please read information, check with your insurance, and schedule vaccination at your local pharmacy. A prescription is not required. If you are certain you have coverage to receive this vaccine in the office, we can schedule this for you. documented in this encounterPromedica [facility]02-17-2023 History of Present illness Narrative* Dina Cope APRN.CNP - 06/19/2022 1:03 PM EST CC: Patient presents with: [facility] Care HPI Georgie Elizabeth is a 52 year old male who presents today for above. Previous PCP in [place], patient recently moved to this area History of congenital hypertrophic cardiomyopathy. Three open heart surgeries between [id number] including mitral valve repair, myectomy and valvuloplasty. He has a mechanical heart valve, lifelong anticoagulation with Coumadin. Home INR's- managed by [place] anticoagulation clinic. INR's have been therapeutic. 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 BP is well controlled with Metoprolol, denies side effects. Does not check BP at home. Low today, he denies dizziness or lightheadedness. He has central sleep apnea. Wearing BiPAP nightly. Managed by [facility] sleep medicine. Denies any concerns or issuestoday. REVIEW OF SYSTEMS GENERAL: Negative for malaise, significant weight loss and fever RESPIRATORY: Negative for cough, wheezing and shortness of breath CARDIOVASCULAR: Negative for chest pain, leg swelling and palpitations PAST MEDICAL HISTORY Diagnosis Date Anticoagulation adequate Depression with anxiety obsessive compulsive disorder HTN (hypertension) Hyperlipemia Hypertrophic obstructive cardiomyopathy (HCC) s/p myectomy Mitral stenosis s/p re-do MVR with mechanical valve 11/13/13 Obstructive sleep apnea SBE (subacute bacterial endocarditis) prophylaxis monitoring Sleep apnea DME Adriel narvaez. [phone] Urethral stricture PAST SURGICAL HISTORY Procedure Laterality Date ADENOIDECTOMY HX 1986 COLONOSCOPY 2011 PAST SURGICAL HISTORY OF 01/23/13 mitral valve repair, #32 Valerie ring, ligation of left atrial appendage PAST SURGICAL HISTORY OF 11/13/13 Myectomy and MVr with de leon band and valvuloplasty. PAST SURGICAL HISTORY OF 11/20/13 redo sternotomy MVR with mechanical ON X valve (27/29 mm). PAST SURGICAL HISTORY OF 01/29/15 BMG Urethroplasty TONSILLECTOMY HX 1986 ALLERGIES Codeine MEDICATIONS metoprolol succinate ER (TOPROL XL) 50 mg 24 hr tablet^Take 1.5 tablets by mouth once daily.^Disp: 135 tablet^Rfl: 3 BIPAP^Fax 30 day download report to [phone] to assess usage and residual AHI after receipt of replacement ASV.^Disp: 1 Device^Rfl: 0 rosuvastatin (CRESTOR) 20 mg tablet^Take 20 mg by mouth once daily.^Disp: ^Rfl: Melatonin 5 mg tab^Take by mouth as needed. ^Disp: ^Rfl: warfarin 7.5 mg tab 7.5 mg, warfarin 5 mg tab 5 mg^Take 12.5 mg by mouth daily as directed. 12.5 mgfor 7 days week^Disp: ^Rfl: ACETAMINOPHEN (TYLENOL EXTRA STRENGTH ORAL)^Take by mouth as needed.^Disp: ^Rfl: aspirin 81 mg chewable tablet^Take 2 tablets by mouth once daily.^Disp: ^Rfl: 0 (Patient taking differently: Take 81 mg by mouth once daily.) CPAP/BIPAP/OTHER^Type .CPAPSettings into a note to see current settings/supplies/DME information.^Disp: 1 Each^Rfl: 0 BIPAP^Please service machine, humidifier causing issues. Lifetime supplies G47.33 DOREEN^Disp: 1 Device^Rfl: 0 BIPAP^ASV EPAP min 5 cm H20, PS 4-12 cm H20. Mask fitting to consider Dream wear FFM. Provide lifetime supplies including tubing, heated humidity, filters. Dx: G47.33 & G47.37.^Disp: 1 Device^Rfl: 0 FAMILY HISTORY Problem Relation Age of Onset Heart Father [place], sudden 50's Heart Paternal Grandmother Social History Tobacco Use Smoking status: Never Smokeless tobacco: Never Vaping Use Vaping Use: Never used Substance Use Topics Alcohol use: No Comment: rarely Drug use: No PHYSICAL EXAM BP 96/60 Pulse 80 Resp 18 Ht 194 cm (6' 4.38) Wt 112 kg (247 lb) BMI 29.77 kg/m General Appearance: well appearing, in no acute distress, alert Lungs: Lungs clear to auscultation. No wheezing, rhonchi, rales. Heart: mechanical click, RRR without murmur, gallop, or rubs. No ectopy Health maintenance reviewed with patient: HEPATITIS B(1 of 3 - 3-dose series) Never done ANNUAL PCP TEAM CHRONIC DISEASE VISIT Never done BP CONTROLLED (<130/80) Never done LIPID SCREEN Never done COLORECTAL CANCER SCREENING Never done DIABETES SCREEN due on 08/04/2018 SHINGRIX VACCINE(1 of 2) Never done DEPRESSION ASSESSMENT Never done INFLUENZA(1) due on 10/30/2022 COVID-19 VACCINE(1) due on 06/19/2023 DTAP,TDAP,TD(2 - Td or Tdap) due on 08/02/2028 HEPATITIS C SCREENING Completed HIV SCREENING Completed DATA REVIEWED: Most recent labs Depression Screening 08/30/2017 02/07/2019 09/27/2020 06/19/2022 PHQ-2 Score 2 2 0 0 PHQ-9 Score 5 7 7 - Depression screening tool completed and reviewed. Based on score and interview, patient is not at risk for depression. Screening tool discussed with patient, and I recommended no further interventionat this time. ASSESSMENT/PLAN: 1. Primary hypertension - ICD9: 401.9, ICD10: I10 (primary diagnosis) - good control - Continue current medication(s) - Recommended regular aerobic exercise. - Recommend home blood pressure monitoring, to bring results in on next visit - Goal of BP <130/80 - LIPID PANEL BASIC - COMP METABOLIC PANEL - CBC 2. Central sleep apnea - ICD9: 780.57, ICD10: G47.31 Compliant with BiPAP. Follow-up with sleep medicine as scheduled 3. Overweight (BMI 25.0-29.9) - ICD9: 278.02, ICD10: E66.3 Weight decreasing - Discussed need for and benefit of continued weight loss BMI Readings from Last 1 Encounters: 06/19/22 : 30.97 kg/m - Continue healthy diet consisting of fruits, vegetables and lean proteins. Reduce sugary drinks ofartificial juices and sodas and replace with water and low calorie Crystal Light. Healthy Snack alternatives have been discussed - Continue exercise or meaningful activity for 20 minutes at lest 3 times a day 4. History of cardiomyopathy - ICD9: V12.59, ICD10: Z86.79 Stable, follow-up with cardiology 5. Mechanical heart valve present - ICD9: V43.3, ICD10: Z95.2 Stable, follow-up with cardiology Prescription instructions reviewed with patient as applicable. Potential red flag symptoms discussed with the patient. Reviewed appropriate action plan to take if red flag symptoms occur. Patient agreeable to treatment plan. Dina Cope APRN.CNP documented in this encounterPromedica Defiance [facility]02-07-2023 History of Present illness Narrative* Britni Benjamin MA - 06/09/2022 5:00 AM EST INR received via fax. * Bonnie Holman RPh - 06/09/2022 5:00 AM EST Images from the original note were not included. [facility] ([facility]) Anticoagulation Clinic [address] [place] [address], [address], [place] [address] Serenity Clintonew (1970) had INR completed by patient's own home meter, visit was completed by phone- audio only. 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 and has a goal INR 2.5-3.5. Pt has Coumadin 5mg tablets and at last visit was instructed to take 12.5 mg daily. Pt confirms taking this dose and adherence to current regimen. Any medication changes: no Any changes in diet (vit K): no Any falls or head trauma: no Any bleeding: no Any SOB, chest pain, swelling: no Refills needed: no Any other changes or concerns: no Review of Systems Assessment Lab Results Component Value Date INR 2.6 (A) 06/09/2022 INR 2.9 (A) 05/18/2022 INR 2.6 (A) 04/28/2022 INR 3.1 (A) 04/14/2022 INR 2.8 (A) 03/31/2022 Plan Dosing as below: Continue taking 12.5 mg daily Next INR Check: 06-23-22 Patient educated on the following: medication adherence Positive ROS findings are: none Georgie was instructed to notify [facility] of any unusual bruising or active/uncontrollable bleeding, medication changes within 24 hours, missed doses, dietary changes, illnesses or hospitalizations, and upcoming surgeries. Patient given verbal instructions. Patient expressed understanding utilizing the teach back method. Time spent 10 Minutes TIFFANIE Mcfarlane, PharmD, BCPS documented in this [facility]01-17-2023 History of Present illness Narrative* Britni Benjamin MA - 05/19/2022 5:15 AM EST INR Received via fax. * Bonnie Holman RPh - 05/19/2022 5:15 AM EST [facility] ([facility]) Anticoagulation Clinic [address] [place] [address], [address], [place] [id number] Serenity REYES Georgie (1970) had INR completed by patient's own home meter, visit was completed by phone- audio only. 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 and has a goal INR 2.5-3.5. Pt has Coumadin 5mg tablets and at last visit was instructed to take 12.5 mg daily. Pt confirms taking this dose and adherence to current regimen. Any medication changes: no Any changes in diet (vit K): no Any falls or head trauma: no Any bleeding: no Any SOB, chest pain, swelling: no Refills needed: no Any other changes or concerns: no Review of Systems Assessment Lab Results Component Value Date INR 2.9 (A) 05/18/2022 INR 2.6 (A) 04/28/2022 INR 3.1 (A) 04/14/2022 INR 2.8 (A) 03/31/2022 INR 2.4 (A) 03/17/2022 Plan Dosing as below: Continue taking 12.5 mg daily Next INR Check: 06-02-22 Patient educated on the following: medication adherence Positive ROS findings are: none Georgie was instructed to notify [facility] of any unusual bruising or active/uncontrollable bleeding, medication changes within 24 hours, missed doses, dietary changes, illnesses or hospitalizations, and upcoming surgeries. Patient given verbal instructions. Patient expressed understanding utilizing the teach back method. Time spent 10 Minutes TIFFANIE Mcfarlane, PharmD, BCPS documented in this [facility]12-19-2022 History of Present illness Narrative* Herbie Shultz MD - 04/20/2022 6:03 PM EST Patient presents with: Ear Pain: seen Wednesday, had ear lavage done HPI: Ear pain: Duration: intermittently the last few days Location: right ear Character: muffled with some pressure Pain relievers: none Associated: URI Pertinent negatives: Denies otorrhea, dizziness MEDICATIONS: metoprolol succinate ER (TOPROL XL) 50 mg 24 hr tablet^Take 1.5 tablets by mouth once daily.^Disp: 135 tablet^Rfl: 3 CPAP/BIPAP/OTHER^Type .CPAPSettings into a note to see current settings/supplies/DME information.^Disp: 1 Each^Rfl: 0 BIPAP^Please service machine, humidifier causing issues. Lifetime supplies G47.33 DOREEN^Disp: 1 Device^Rfl: 0 BIPAP^ASV EPAP min 5 cm H20, PS 4-12 cm H20. Mask fitting to consider Dream wear FFM. Provide lifetime supplies including tubing, heated humidity, filters. Dx: G47.33 & G47.37.^Disp: 1 Device^Rfl: 0 BIPAP^Fax 30 day download report to [phone] to assess usage and residual AHI after receipt of replacement ASV.^Disp: 1 Device^Rfl: 0 rosuvastatin (CRESTOR) 20 mg tablet^Take 20 mg by mouth once daily.^Disp: ^Rfl: Melatonin 5 mg tab^Take by mouth as needed. ^Disp: ^Rfl: warfarin 7.5 mg tab 7.5 mg, warfarin 5 mg tab 5 mg^Take 12.5 mg by mouth daily as directed. 12.5 mgfor 7 days week^Disp: ^Rfl: ACETAMINOPHEN (TYLENOL EXTRA STRENGTH ORAL)^Take by mouth as needed.^Disp: ^Rfl: aspirin 81 mg chewable tablet^Take 2 tablets by mouth once daily.^Disp: ^Rfl: 0 (Patient taking differently: Take 81 mg by mouth once daily.) ALLERGIES: ALLERGIES Allergen Reactions Codeine Mental Status Change VITALS: BP 136/84 Pulse 78 Temp 36.6 C (97.9 F) Resp 16 Wt 117.9 kg (260 lb) SpO2 97% BMI 30.83kg/m PE: Pleasant, in no acute distress. EARS: bilateral small debris obscuring view removed with lighted cerumen hook. Small hyperemia along the malleus but otherwise no erythema, or effusion, or bulge of tympanic membranes. ASSESSMENT/PLAN: 1. Eustachian tube dysfunction, right - ICD9: 381.81, ICD10: H69.81 (primary diagnosis) Follow up with worsening or persistent pain. 2. Excessive cerumen in ear canal, bilateral - ICD9: 380.4, ICD10: H61.23 Successful removal of debris tonight. Herbie Shultz MD documented [facility] this [facility] History of Present illness Narrative* Chio Dong, [facility] - 04/17/2022 8:11 PM EST Subjective Ear Problem Associated symptoms include hearing loss. Georgie Elizabeth is a 52 year old male who presents with muffled hearing. He has had this for the past 2 days. States his muffled hearing comes and goes. He denies pain. He has had minimal sinus congestion. No fever. He used some OTC ear drops at home. Review of Systems Constitutional: Negative for chills and fever. HENT: Positive for hearing loss. Negative for ear pain. Respiratory: Negative. Cardiovascular: Negative. Musculoskeletal: Negative. BP 124/72 Pulse 86 Temp 37.1 C (98.7 F) (Tympanic) Resp 18 Wt 118.7 kg (261 lb 9.6 oz) SpO2 97% BMI 31.02 kg/m PAST MEDICAL HISTORY Diagnosis Date Anticoagulation adequate Depression with anxiety obsessive compulsive disorder HTN (hypertension) Hyperlipemia Hypertrophic obstructive cardiomyopathy (HCC) s/p myectomy Mitral stenosis s/p re-do MVR with mechanical valve 11/13/13 Obstructive sleep apnea SBE (subacute bacterial endocarditis) prophylaxis monitoring Sleep apnea DME Adriel Cardenas fx. [phone] Urethral stricture PAST SURGICAL HISTORY Procedure Laterality Date ADENOIDECTOMY HX 1986 COLONOSCOPY 2011 PAST SURGICAL HISTORY OF 01/23/13 mitral valve repair, #32 Valerie ring, ligation of left atrial appendage PAST SURGICAL HISTORY OF 11/13/13 Myectomy and MVr with de leon band and valvuloplasty. PAST SURGICAL HISTORY OF 11/20/13 redo sternotomy MVR with mechanical ON X valve (27/29 mm). PAST SURGICAL HISTORY OF 01/29/15 BMG Urethroplasty TONSILLECTOMY HX 1986 ALLERGIES Codeine MEDICATIONS metoprolol succinate ER (TOPROL XL) 50 mg 24 hr tablet^Take 1.5 tablets by mouth once daily.^Disp: 135 tablet^Rfl: 3 CPAP/BIPAP/OTHER^Type .CPAPSettings into a note to see current settings/supplies/DME information.^Disp: 1 Each^Rfl: 0 BIPAP^Please service machine, humidifier causing issues. Lifetime supplies G47.33 DOREEN^Disp: 1 Device^Rfl: 0 BIPAP^ASV EPAP min 5 cm H20, PS 4-12 cm H20. Mask fitting to consider Dream wear FFM. Provide lifetime supplies including tubing, heated humidity, filters. Dx: G47.33 & G47.37.^Disp: 1 Device^Rfl: 0 BIPAP^Fax 30 day download report to [phone] to assess usage and residual AHI after receipt of replacement ASV.^Disp: 1 Device^Rfl: 0 rosuvastatin (CRESTOR) 20 mg tablet^Take 20 mg by mouth once daily.^Disp: ^Rfl: Melatonin 5 mg tab^Take by mouth as needed. ^Disp: ^Rfl: warfarin 7.5 mg tab 7.5 mg, warfarin 5 mg tab 5 mg^Take 12.5 mg by mouth daily as directed. 12.5 mgfor 7 days week^Disp: ^Rfl: ACETAMINOPHEN (TYLENOL EXTRA STRENGTH ORAL)^Take by mouth as needed.^Disp: ^Rfl: aspirin 81 mg chewable tablet^Take 2 tablets by mouth once daily.^Disp: ^Rfl: 0 (Patient taking differently: Take 81 mg by mouth once daily.) FAMILY HISTORY Problem Relation Age of Onset Heart Father [place], sudden 50's Heart Paternal Grandmother Social History Tobacco Use Smoking status: Never Smokeless tobacco: Never Vaping Use Vaping Use: Never used Substance Use Topics Alcohol use: No Comment: rarely Drug use: No Objective Physical Exam Vitals and nursing note reviewed. HENT: Right Ear: Ear canal and external ear normal. There is impacted cerumen. Left Ear: Tympanic membrane, ear canal and external ear normal. Nose: Nose normal. Mouth/Throat: Pharynx: Uvula midline. Cardiovascular: Rate and Rhythm: Normal rate and regular rhythm. Heart sounds: Normal heart sounds. Pulmonary: Effort: Pulmonary effort is normal. No respiratory distress. Breath sounds: Normal breath sounds. No wheezing or rales. Musculoskeletal: Cervical back: Neck supple. Lymphadenopathy: Cervical: No cervical adenopathy. Skin: General: Skin is warm and dry. Findings: No erythema or rash. Neurological: Mental Status: He is alert. ASSESSMENT/PLAN: 1. Impacted cerumen of right ear - ICD9: 380.4, ICD10: H61.21 - Cerumen removed via irrigation by RN, patient tolerated procedure well. Post procedure right ear canal is clear and TM is well visualized with bony landmarks intact and no sign of inflammation/infection. - may use OTC ear drops like debrox or ear wax . - Follow-up with your PCP in 3-5 days if symptoms have not improved or sooner if symptoms worsen - Discussed red flags and need for immediate medical evaluation if any occur. - Discussed supportive care treatment with fluids, rest and analgesia. - Discussed expected course of illness Chio Dong APRN.MANDY * Donna Treviño LPN - 04/17/2022 8:01 PM EST Ambulatory Ear Lavage Pre-treatment: Warm water Treatment: Right ear Equipment and Irrigation solution and Volume used: Single use syringe with single use irrigation tip Return flow appearance: Brown Patient tolerated procedure: yes Post-treatment: Post Irrigation Post-treatment: Ear Canal/Tympanic membrane assessed by LUIS F Barroso. Donna Treviño LPN documented in this encounterProm[facility]12-16-[facility] Instructions* Patient Instructions* Chio Dong APRN.MANDY - 04/17/2022 7:56 PM EST ASSESSMENT/PLAN: 1. Impacted cerumen of right ear - ICD9: 380.4, ICD10: H61.21 - Cerumen removed via irrigation by RN, patient tolerated procedure well. Post procedure right ear canal is clear and TM is well visualized with bony landmarks intact and no sign of inflammation/infection. - may use OTC ear drops like debrox or ear wax MD. - Follow-up with your PCP in 3-5 days if symptoms have not improved or sooner if symptoms worsen - Discussed red flags and need for immediate medical evaluation if any occur. - Discussed supportive care treatment with fluids, rest and analgesia. - Discussed expected course of illness Chio Dong APRN.MANDY Ear wax buildup and blockage (cerumen impaction) What is ear wax? Ear wax, also called cerumen, is made by the body to protect the ears. The ear wax has both lubricating and antibacterial properties. Most of the time, the old ear wax is moved through the ear canal by motions from chewing and other jaw movements and as the skin of the ear canal grows from the inside out. At that time, it reaches the outside of the ear and flakes off. Ear wax is produced in the outer part of the ear canal, not deep inside the ear. What does it mean when ear wax becomes impacted? We say that ear wax is impacted when it has built up in the ear canal to such a point that there may be signs that something is not quite right. It is important to note that, for most people, ears might never need cleaning--they are designed to clean themselves. Ear wax buildup and blockage often happens when people use items like cotton swabs or emmanuelle pins to try to clean their ears. This only pushes the ear wax farther into the ears and can also cause injury to the ear. What are the symptoms of ear wax impaction? A feeling of fullness in the ear Pain in the ear Difficulty hearing, which may continue to worsen Ringing in the ear (tinnitus) A feeling of itchiness in the ear Discharge from the ear Odor coming from the ear Dizziness Who experiences ear wax buildup? Ear wax buildup can happen to anyone. However, it is more likely to occur in: People who use hearing aids or ear plugs People who put cotton swabs or other items into their ears Older people People with developmental disabilities People with ear canals shaped in such a way as to interfere with natural wax removal How is ear wax impaction diagnosed? Your health care provider can look into your ears with a special instrument, called an otoscope, tosee if ear wax buildup is present. How is ear wax impaction treated? Ear wax can be removed in several ways; some of these methods can be done at home. Cleaning the outside of the ear by wiping with a cloth. Putting cerumenolytic solutions (solutions to dissolve wax) into the ear canal--these solutions include mineral oil, baby oil, glycerin, peroxide-based ear drops (such as Debrox ), hydrogen peroxide,and saline solution. Irrigating or syringing the ear--this involves using a syringe to rinse out the ear canal with water or saline, generally after the wax has been softened or dissolved by a cerumenolytic. Removing the wax manually using special instruments--this should be done only by a health care provider who might use a cerumen spoon, forceps, or suction device. Note: Irrigation should not be done by or to any persons who have, or suspect they have, a perforation (hole) in their eardrum or tubes in the affected ear(s). Commercially available suction devices for home use (such as Wax-Vac) are not effective for most people and are therefore not recommended. Ear candles, which are advertised as a natural method to remove ear wax, are not only ineffective but can cause injury to the ear. Injuries include busby to theexternal ear and ear canal and perforation of the eardrum. What are possible complications of ear wax impaction? If left untreated, excessive ear wax may cause symptoms of ear wax impaction to become worse. Thesesymptoms might include hearing loss, ear irritation, etc. A build-up of ear wax might also make it difficult to see into the ear, which may result in potential problems going undiagnosed. How can ear wax impaction be prevented? Do not stick anything into your ears to clean them. Use cotton swabs only on the outside of the ear. If you have a severe enough problem with ear wax that you need to have it removed by a health professional more than once a year, discuss with them which method of prevention (if any) may work best for you. References [place] [employer] Otolaryng[employer]--Head and Neck Surgery. Earwax Accessed 04/19/2013. Citizen [place] [employer]. Nothing Smaller Than Your Elbow, Please Accessed 04/19/2013. Copyright 2379-1588 [facility]. All rights reserved This information is provided by the [facility] and is not intended to replace the medical advice of your doctor or health care provider. Please consult your health care provider for advice about a specific medical condition. For additional health information, please contact the Center for Consumer Health Information at the [facility] or toll-free extension [phone]. If you prefer, you may visit [email or web address] or [email or web address]. This document was last reviewed on: 2016 documented in this encounterPromedica [facility]12-09-2022 History of Present illness Narrative* Janae Cortes MD - 04/10/2022 1:30 PM EST Images from the original note were not included. Heart [facility] V[facility] [place] [facility] Department of Cardiovascular Medicine SECTION OF CARDIOVASCULAR IMAGING OUTPATIENT VISIT DATE April 10, 2022 OUTPATIENT VISIT TYPE ESTABLISHED PRIMARY CARE PHYSICIAN: Geronimo Thrasher MD [address] [place] [address] REFERRING PHYSICIAN: SELF CHIEF COMPLAINT: Follow up HISTORY OF PRESENT ILLNESS: Mr. Elizabeth is a 52 year old gentleman who presents today for follow-up visit. To summarize his history from prior notes: He underwent MV repair in [place] on 01/2013, but was told of LV obstruction prior as well. However, still had residual obstruction post-operatively. Managed with beta blockers, but still had considerable exertional dyspnea. Referred here to Dr. Llanes. Pre-op echo: - The left ventricle is normal in size. There is severe asymmetric left ventricular hypertrophy. Left ventricular systolic function is hyperdynamic. EF = 71 5% (2D biplane) LV EDV Indexed is at the low normal range. - The right ventricle is normal in size. Right ventricular systolic function is normal. - There is moderate (2+ - 3+) mitral valve regurgitation. MV repair in 01/2014. MR may be underestimated as it is difficult to evaluate severity and mechanism of MR. Suggest SRINATH to further evaluate if clinically indicated. - Severe RASHIDA at rest: HR=53 BPM, Peak gradient= 102 mmHg. With valsalva: HR=52 BPM, peak gradient= 125 mmHg. Pre-op cath with no significant angiographic disease. On 11/13/2013, he underwent Redo median sternotomy, open heart surgery, extensive dissection of mediastinal adhesions, repair of the mitral valve utilizing #31 [place] flexible annuloplasty band, takedown of previous chordal transposition, and septal myectomy. Surgical path: Microscopic examination shows myocyte hypertrophy with myocyte nuclei ranging in diameter from 30-40 micrometers. There is no evidence of myocyte disarray. The Movat stain shows no evidence of dysplastic intramural coronary arteries. However, it shows replacement fibrosis and mild interstitial fibrosis. The endocardium shows one focal area of fibrosis with minimal elastosis. Post-op echo: - The left ventricle is normal in size. There is moderate concentric left ventricular hypertrophy. Left ventricular systolic function is normal. EF = 61 5% (2D biplane) - The right ventricle is normal in size. Right ventricular systolic function is normal. - Resting mild RASHIDA with HR 79 bpm. 1+ MR, LVOT gradient 33 mmHg. Same gradient with valsalva although RASHIDA appears to increase. With Amyl nitrite gradient increases to 89 mmHg (HR 84) with MR increasing to 2-3+ and moderate/severe RASHIDA. He therefore underwent re-operation on 11/20/13 with a 27/29 mm On-X mechanical mitral valve. Admission in August of 2015 for palpitations and lightheadedness. Work-up unremarkable. Subsequent CardioNet unremarkable as well. Symptoms of palpitations did not correlate with any arrhythmias, only rare PAC's, PVC's noted. He did note some symptoms of exertional dyspnea in 2018 perfusion stress test was negative for ischemia. For the most part he has done well since his last visit. Was seen last month in the ED closer to home after 2 days of atypical discomfort. Hs troponin negative. PAST MEDICAL HISTORY Diagnosis Date Anticoagulation adequate Depression with anxiety obsessive compulsive disorder HTN (hypertension) Hyperlipemia Hypertrophic obstructive cardiomyopathy (HCC) s/p myectomy Mitral stenosis s/p re-do MVR with mechanical valve 11/13/13 Obstructive sleep apnea SBE (subacute bacterial endocarditis) prophylaxis monitoring Sleep apnea DME Adriel Cardenas fx. [phone] Urethral stricture PAST SURGICAL HISTORY Procedure Laterality Date ADENOIDECTOMY HX 1986 COLONOSCOPY 2011 PAST SURGICAL HISTORY OF 01/23/13 mitral valve repair, #32 Valerie ring, ligation of left atrial appendage PAST SURGICAL HISTORY OF 11/13/13 Myectomy and MVr with de leon band and valvuloplasty. PAST SURGICAL HISTORY OF 11/20/13 redo sternotomy MVR with mechanical ON X valve (27/29 mm). PAST SURGICAL HISTORY OF 01/29/15 BMG Urethroplasty TONSILLECTOMY HX 1986 SOCIAL HISTORY Social History Tobacco Use Smoking status: Never Smokeless tobacco: Never Vaping Use Vaping Use: Never used Substance Use Topics Alcohol use: No Comment: rarely Drug use: No FAMILY HISTORY Problem Relation Age of Onset Heart Father [place], sudden 50's Heart Paternal Grandmother ALLERGIES: ALLERGIES Allergen Reactions Codeine Mental Status Change MEDICATIONS: metoprolol succinate ER (TOPROL XL) 50 mg 24 hr tablet^Take 1.5 tablets by mouth once daily.^Disp: 135 tablet^Rfl: 3 CPAP/BIPAP/OTHER^Type .CPAPSettings into a note to see current settings/supplies/DME information.^Disp: 1 Each^Rfl: 0 BIPAP^Please service machine, humidifier causing issues. Lifetime supplies G47.33 DOREEN^Disp: 1 Device^Rfl: 0 BIPAP^ASV EPAP min 5 cm H20, PS 4-12 cm H20. Mask fitting to consider Dream wear FFM. Provide lifetime supplies including tubing, heated humidity, filters. Dx: G47.33 & G47.37.^Disp: 1 Device^Rfl: 0 BIPAP^Fax 30 day download report to [phone] to assess usage and residual AHI after receipt of replacement ASV.^Disp: 1 Device^Rfl: 0 rosuvastatin (CRESTOR) 20 mg tablet^Take 20 mg by mouth once daily.^Disp: ^Rfl: Melatonin 5 mg tab^Take by mouth as needed. ^Disp: ^Rfl: warfarin 7.5 mg tab 7.5 mg, warfarin 5 mg tab 5 mg^Take 12.5 mg by mouth daily as directed. 12.5 mgfor 7 days week^Disp: ^Rfl: ACETAMINOPHEN (TYLENOL EXTRA STRENGTH ORAL)^Take by mouth as needed.^Disp: ^Rfl: aspirin 81 mg chewable tablet^Take 2 tablets by mouth once daily.^Disp: ^Rfl: 0 (Patient taking differently: Take 81 mg by mouth once daily.) PHYSICAL EXAMINATION: BP 102/75 (BP Site: Right Arm, BP Position: Sitting) Pulse 74 Ht 195.6 cm (6' 5) Wt 116.6 kg(257 lb) SpO2 99% BMI 30.48 kg/m General: Well appearing, in no acute distress. Skin: No clubbing, no cyanosis. Eyes: Extra ocular movements grossly intact Oropharynx: Wearing a mask. Neck: No jugular venous distention, no carotid bruits. Lungs: Clear to auscultation bilaterally. Heart: S1, S2 RRR. Valve sounds. Abdomen: Soft, nontender. Extremities: No peripheral edema. Neuro: Oriented to person, place and time, alert, cooperative, gait coordinated. CARDIOVASCULAR MEDICINE TESTING: Echocardiogram: The left ventricle is normal in size. There is left ventricular hypertrophy. Left ventricular systolic function is normal. EF = 64 5% (2D biplane) Left ventricular diastolic function was not evaluated due to mitral valve surgery. - The right ventricle is dilated. Right ventricular systolic function is normal. - The left atrial cavity is mildly dilated. - On-x prosthetic mitral valve (size #27). There is no mitral valve regurgitation. The peak gradient is 12 mmHg and the mean gradient is 7 mmHg. Prior pk/mn gradients of 13/7 mmHG at 68 bpm. Lvot gradient of 8 mmHG. - Exam was compared with the prior CC echocardiographic exam performed on 02/14/2021. RV appears smaller on today exam. I have personally reviewed the Echocardiogram. IMPRESSION: Mr. Elizabeth is a 52 year old gentleman with LVOT obstruction that underwent attempted MV repair, but developed worsening LVOT obstruction Therefore underwent MV replacement. Pre-op cath with no angiographic disease. No myocyte disarray or intramural coronary dysplasia on surgical path of myectomy. Stable valve gradients. PLAN AND RECOMMENDATIONS: Continue as is. He will seek attention for any symptoms. Otherwise, re-assess next year with echo. CONTACT INFORMATION: Janae Cortes M.D. [facility] Department of Cardiovascular Medicine Heart and V[facility] [place] [facility] Desk [address] [place] [address] Office - [phone] extension [phone] Office Appointments: [phone] -[phone] extension [phone] documented in this encounterPromedica [facility]07-14-2022 History of Present illness Narrative* Lise Kennedy PA-C - 11/13/2021 4:53 PM EDT Images from the original note were not included. This note was created using [employer]. Subjective Georgie Elizabeth is a 51 year old male. HPI Patient presents with a bee sting since yesterday. He states he got stung once while he was at work. 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 The next day he got stung in same house by another bee. He is got redness and swelling. No fevers or chills. States he has had cellulitis from a bee sting and has a mechanical heart valve so was concerned and came in. No swelling of his throat/face or difficulty breathing. Review of Systems Skin: Bee sting right upper arm All other systems reviewed and are negative. PAST MEDICAL HISTORY Diagnosis Date Anticoagulation adequate Depression with anxiety obsessive compulsive disorder HTN (hypertension) Hyperlipemia Hypertrophic obstructive cardiomyopathy (HCC) s/p myectomy Mitral stenosis s/p re-do MVR with mechanical valve 11/13/13 Obstructive sleep apnea SBE (subacute bacterial endocarditis) prophylaxis monitoring Sleep apnea DME Adriel narvaez. [phone] Urethral stricture Current Outpatient Medications Medication Sig Dispense Refill metoprolol succinate ER (TOPROL XL) 50 mg 24 hr tablet Take 1.5 tablets by mouth once daily. 135 tablet 3 CPAP/BIPAP/OTHER Type .CPAPSettings into a note to see current settings/supplies/DME information. 1Each 0 BIPAP Please service machine, humidifier causing issues. Lifetime supplies G47.33 DOREEN 1 Device 0 BIPAP ASV EPAP min 5 cm H20, PS 4-12 cm H20. Mask fitting to consider Dream wear FFM. Provide lifetime supplies including tubing, heated humidity, filters. Dx: G47.33 & G47.37. 1 Device 0 BIPAP Fax 30 day download report to [phone] to assess usage and residual AHI after receipt of replacement ASV. 1 Device 0 rosuvastatin (CRESTOR) 20 mg tablet Take 20 mg by mouth once daily. Melatonin 5 mg tab Take by mouth as needed. warfarin 7.5 mg tab 7.5 mg, warfarin 5 mg tab 5 mg Take 12.5 mg by mouth daily as directed. 12.5 mgfor 6 days week 15 mg 1 day and subject to change aspirin 81 mg chewable tablet Take 2 tablets by mouth once daily. (Patient taking differently: Take81 mg by mouth once daily. ) 0 CPAP Nightly cephALEXin (KEFLEX) 500 mg capsule Take 1 capsule by mouth four times daily for 5 days. 20 capsule 0 ACETAMINOPHEN (TYLENOL EXTRA STRENGTH ORAL) Take by mouth as needed. No current facility-administered medications for this visit. PAST SURGICAL HISTORY Procedure Laterality Date ADENOIDECTOMY HX 1986 COLONOSCOPY 2011 PAST SURGICAL HISTORY OF 01/23/13 mitral valve repair, #32 Valerie ring, ligation of left atrial appendage PAST SURGICAL HISTORY OF 11/13/13 Myectomy and MVr with de leon band and valvuloplasty. PAST SURGICAL HISTORY OF 11/20/13 redo sternotomy MVR with mechanical ON X valve (27/29 mm). PAST SURGICAL HISTORY OF 01/29/15 BMG Urethroplasty TONSILLECTOMY HX 1987 FAMILY HISTORY Problem Relation Age of Onset Heart Father [place], sudden 50's Heart Paternal Grandmother Social History Tobacco Use Smoking status: Never Smoker Smokeless tobacco: Never Used Vaping Use Vaping Use: Never used Substance Use Topics Alcohol use: No Comment: rarely Drug use: No Objective BP 126/84 Pulse 99 Temp 37.2 C (98.9 F) Resp 20 Wt 118.7 kg (261 lb 9.6 oz) SpO2 99% BMI 31.02 kg/m Physical Exam Vitals reviewed. Constitutional: Appearance: Normal appearance. HENT: Head: Normocephalic and atraumatic. Skin: General: Skin is warm and dry. Comments: Patient has redness and mild swelling to the right inner bicep. No induration. No lymphangitic streaking. Warm to touch. No sign of abscess. Neurological: Mental Status: He is alert. Assessment and Plan ASSESSMENT/PLAN: 1. Bee sting, accidental or unintentional, initial encounter - ICD9: 989.5, E905.3, ICD10: T63.441A Discussed with patient that this is likely all inflammatory, do not feel that this is infectious atthis point. Patient concerned due to his mechanical heart valve and states he got cellulitis from abee sting previously so I did write Keflex. Discussed using Zyrtec and cool compresses. Patient agreeable with plan. Red flags for ER discussed. No sign of anaphylaxis. Lise Kennedy PA-C documented in this encounter[facility] History of Present illness Narrative* Herbie Shultz MD - 10/29/2021 7:13 PM EDT Patient presents with: Ear Pain: right ear pain and clogged x 1 week HPI: Feeling right ear is clogged for 1 week, left ear a little. Not sure if allergies or wax. Positive symptoms: Rhinorrhea, watery eyes, muffled hearing, Negative symptoms: Cough, Sore throat, Fever, Chills, OTC: some antihistamines. PAST MEDICAL HISTORY Diagnosis Date Anticoagulation adequate Depression with anxiety obsessive compulsive disorder HTN (hypertension) Hyperlipemia Hypertrophic obstructive cardiomyopathy (HCC) s/p myectomy Mitral stenosis s/p re-do MVR with mechanical valve 11/13/13 Obstructive sleep apnea SBE (subacute bacterial endocarditis) prophylaxis monitoring Sleep apnea DME Adriel narvaez. [phone] Urethral stricture MEDICATIONS: Current Outpatient Medications Medication Sig metoprolol succinate ER (TOPROL XL) 50 mg 24 hr tablet Take 1.5 tablets by mouth once daily. CPAP/BIPAP/OTHER Type .CPAPSettings into a note to see current settings/supplies/DME information. BIPAP Please service machine, humidifier causing issues. Lifetime supplies G47.33 DOREEN BIPAP ASV EPAP min 5 cm H20, PS 4-12 cm H20. Mask fitting to consider Dream wear FFM. Provide lifetime supplies including tubing, heated humidity, filters. Dx: G47.33 & G47.37. BIPAP Fax 30 day download report to [phone] to assess usage and residual AHI after receipt of replacement ASV. rosuvastatin (CRESTOR) 20 mg tablet Take 20 mg by mouth once daily. Melatonin 5 mg tab Take by mouth as needed. warfarin 7.5 mg tab 7.5 mg, warfarin 5 mg tab 5 mg Take 12.5 mg by mouth daily as directed. 12.5 mgfor 6 days week 15 mg 1 day and subject to change ACETAMINOPHEN (TYLENOL EXTRA STRENGTH ORAL) Take by mouth as needed. aspirin 81 mg chewable tablet Take 2 tablets by mouth once daily. (Patient taking differently: Take81 mg by mouth once daily. ) CPAP Nightly amoxicillin-clavulanic acid (AUGMENTIN) 875-125 mg per tablet Take 1 tablet by mouth twice daily. (Patient not taking: Reported on 10/29/2021 ) No current facility-administered medications for this visit. ALLERGIES: ALLERGIES Allergen Reactions Codeine Mental Status Change VITALS: BP 146/84 Pulse 79 Temp 36.3 C (97.4 F) Resp 21 Wt 119.3 kg (263 lb) SpO2 98% BMI 31.19kg/m PHYSICAL EXAM: GEN: Pleasant, in no acute distress. HEENT: PERRL, EOMI, conjunctiva clear Ears: canals occluded by cerumen. TMs without erythema, bulge, or effusion after wax removal. Sinuses: non-tender frontal sinus, non-tender maxillary sinuses Throat: moist mucous membranes, no erythema, no exudate Neck: supple, no thyromegaly, no lymphadenopathy HEART: regular rate and rhythm, LUNGS: clear to auscultation, no wheezes or crackles, no increased WOB ASSESSMENT/PLAN: 1. Bilateral impacted cerumen - ICD9: 380.4, ICD10: H61.23 Successful removal of cerumen from bilateral canals with lighted cerumen curette by myself and irrigation of proximal cerumen from the right canal by staff. He has had wax removed every year or two. Consider preventive application of debrox for a few days every month. Herbie Shultz MD documented in this encounterProm[facility]04[facility] History of Past illness Narrative* Problem Noted Date Resolved Date Lightheadedness 08/05/2015 04/29/2020 Overview: Differential includes arrhythmia (including block or atrial tach) versus volume- down versus valvular issue such as [facility]us [facility] Unlikely that his septum has re-hypertrophied. It's unusual that he is having symptoms during my interview while he is in sinus rhythm and with a normal blood pressure, and normal orthostatics. -favor arrhythmia issues versus volume issues (although orthostatic vital signs negative) versus psych -exam suggests a well functioning valve prosthesis -no syncopal events Plan -telemetry -echocardiogram in AM, assess for valve function/thrombus/pannus -consider exercise testing to assess BP and HR response if echo is unrevealing -encouraged po intake -consider loop recorder prior to discharge Stricture, urethra 12/10/2014 04/29/2020 Subtherapeutic international normalized ratio (I NR) 12/08/2013 04/29/2020 Overview: GOAL 2.5-3.5 for mechanical mitral valve Home dose 12.5 but made his INR GO to >4.5 AND WAS TOLD TO STOP COUMADIN FOR 2 DAYS AND 12/08 INR 1.9 RESUME TODAY ON 10 MG 12/09 INR 1.7 heparin drip per CTS at rate 500cc/r goal PTT 50-60 coumadin 12.5 mg 12/10 INR 2 ok to discharge per CTS Will discharge on 12.5 mg dose alternating with 10 mg Abdominal pain 12/08/2013 04/29/2020 Overview: DISSECTION, appendicitis, obstruction and pancreatitis ruled out Likely gastroenteritis Resolving LFTS trending down tolerating regular diet Elevated LFTs 12/08/2013 04/29/2020 Overview: Up from yesterday ++AST, ALT,ALP , MAGNUS normal Goal bladder normal on CT abdomen. Likely reactive Improving Trend off tylenol Epistaxis 11/27/2013 04/29/2020 Overview: Nosebleed x 2 11/27, no further episode today. Discharge on ocean spray tid and afrin prn. If continues to be problematic, discussed ENT for eval. Anemia 11/21/2013 04/29/2020 Overview: H/H 8.1/25.3, stable. Received 1u PRBC 11/23, 2U PRBC 11/22. Discharge on iron. Hypovolemia 11/20/2013 11/22/2013 Overview: 11/20/2013 Low MAP and filling pressures. Replete volume. Pericardial effusion 11/17/2013 11/22/2013 Overview: History: S/p MVr, myectomy Assessment: small to moderate right pericardial effusion Plan: Having re-op on Wednesday11.20.2013. SUMMARY 11/16/2013 04/29/2020 Overview: Indication for admission/procedure: MR LVEF: Normal RVF: Normal PMH/PSH: MS, HTN, HPL, Sleep apnea (CPAP), Urethral stricture, Depression, 01/2013, LAAL, MVr Surgeries: 11/13/2013 Myectomy (5gm), MVr with de leon band and valvuloplasty 11/20/2013 Redo Sternotomy MVR (27/29mm OnX) 12/08/13 readmitted for abdominal pain from OSH A/P -Abdominal pain: likely gastroenteritis, resolved -subtherapeutic INR, report that INR WAS 4.5 ans was told to hold coumadin till today then decrease dose from 12.5 to 10 mg, heparin drip for INR <1.8 (TODAY 1.7) coumadin 12.5 mg LFTS improving D/C in am per CTS if INR >2 Atelectasis 11/15/2013 04/29/2020 Overview: On RA, -3.4kg, CXR w/minimal posterior effusions and mild opacity that is most suggestive of atelectasis. Continue PEP/OOB/C&DB. Fluid overload 11/15/2013 11/16/2013 Overview: Pre-op wt 120.7 kg, current wt 129.6. Pt received IVF resuscitation in ICU, upon assessment generalized edema. Will start gentle diuresis with Lasix. Monitor I&O and daily weights. Urethral stricture 11/15/2013 11/16/2013 Overview: H/O of urethral stricture. Camacho D/C this am. Monitor Urine output. Cardiac insufficiency 11/13/2013 11/14/2013 Overview: RV sluggish post CPB. Improved with Epi. No pa cath in place. 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 Supplement as needed. Hypotension 11/13/2013 11/16/2013 Overview: Filling pressures remain low. Norepi for goal MAP > 65. Cont fluid resuscitation as needed. 11/15/2013 much improved BP after fluid resuscitation in ICU. Will start gentle diuresing and low dose BB and monitor. Pre-op testing 11/01/2013 11/16/2013 Overview: Images from the original note were not included. [facility] PRE-[facility] CHECKLIST Surgeon: Fernando Llanes M.D. Informed Consent Completed:yes CAD: No H & P completed: Yes PA/LAT: Completed CT: Completed MRI: N/A LE US: N/A Cath: Yes - reviewed: Yes Echo:Completed EKG: Completed EF %: 71 PI's: N/A Carotid: N/A Mapping: N/A Dental: Completed PFT's: Completed CBC, Coags, BMP, Mg, Phos Basename 11/19/13 0633 11/18/13 0506 11/17/13 0736 WBC 6.48 5.80 4.42 HB 8.7* 8.1* 7.7* HCT 26.8* 24.2* 23.6* PLT 323 226 169 INR -- -- -- APTT -- -- -- NA 140 138 138 K 4.4 4.2 3.8 CHLOR 102 103 101 CO2 27 25 27 BUN 9* 11 13 CREAT 0.90 0.84 0.83 GLUC 99 108* 102* CA 9.2 9.1 8.5 MG -- -- -- P -- -- -- UA: p HCG:N/A ABO/ABO Confirmed: Yes Blood ordered: Yes 2 SA Swab: Yes - results: positive - treated. Last Dose of Anticoagulation: asa 162 sub q heparin Op Note: yes Pacemaker Check: N/A Consults: none DM: No Cardiac Surgical prep: N/A SIGNATURE: Jackie Jc CNP CHECKED BY: arron DATE of SERVICE: 11/01/2013 TIME of SERVICE: 2:59 PM mw 11/19 Mitral valve regurgitation 11/01/201311/16 Overview: s/p MVr 01/201311/13/2013:MV repair with 31 mm De Leon band and valvuloplasty Anticoagulation adequate 020 documented as of this encounter (statuses as of 10/29/2021) [facility] History of Past illness Narrative* Problem Noted Date Resolved Date Lightheadedness 08/05/2015 04/29/2020 Overview: Differential includes arrhythmia (including block or atrial tach) versus volume- down versus valvular issue such as pannus growing into [facility] mitral valve. Unlikely that his septum has re-hypertrophied. It's unusual that he is having symptoms during my interview while he is in sinus rhythm and with a normal blood pressure, and normal orthostatics. -favor arrhythmia issues versus volume issues (although orthostatic vital signs negative) versus psych -exam suggests a well functioning valve prosthesis -no syncopal events Plan -telemetry -echocardiogram in AM, assess for valve function/thrombus/pannus -consider exercise testing to assess BP and HR response if echo is unrevealing -encouraged po intake -consider loop recorder prior to discharge Stricture, urethra 12/10/2014 04/29/2020 Subtherapeutic international normalized ratio (I NR) 12/08/2013 04/29/2020 Overview: GOAL 2.5-3.5 for mechanical mitral valve Home dose 12.5 but made his INR GO to >4.5 AND WAS TOLD TO STOP COUMADIN FOR 2 DAYS AND 12/08 INR 1.9 RESUME TODAY ON 10 MG 12/09 INR 1.7 heparin drip per CTS at rate 500cc/r goal PTT 50-60 coumadin 12.5 mg 12/10 INR 2 ok to discharge per CTS Will discharge on 12.5 mg dose alternating with 10 mg Abdominal pain 12/08/2013 04/29/2020 Overview: DISSECTION, appendicitis, obstruction and pancreatitis ruled out Likely gastroenteritis Resolving LFTS trending down tolerating regular diet Elevated LFTs 12/08/2013 04/29/2020 Overview: Up from yesterday ++AST, ALT,ALP , MAGNUS normal Goal bladder normal on CT abdomen. Likely reactive Improving Trend off tylenol Epistaxis 11/27/2013 04/29/2020 Overview: Nosebleed x 2 11/27, no further episode today. Discharge on ocean spray tid and afrin prn. If continues to be problematic, discussed ENT for eval. Anemia 11/21/2013 04/29/2020 Overview: H/H 8.1/25.3, stable. Received 1u PRBC 11/23, 2U PRBC 11/22. Discharge on iron. Hypovolemia 11/20/2013 11/22/2013 Overview: 11/20/2013 Low MAP and filling pressures. Replete volume. Pericardial effusion 11/17/2013 11/22/2013 Overview: History: S/p MVr, myectomy Assessment: small to moderate right pericardial effusion Plan: Having re-op on Wednesday11.20.2013. SUMMARY 11/16/2013 04/29/2020 Overview: Indication for admission/procedure: MR LVEF: Normal RVF: Normal PMH/PSH: MS, HTN, HPL, Sleep apnea (CPAP), Urethral stricture, Depression, 01/2013, LAAL, MVr Surgeries: 11/13/2013 Myectomy (5gm), MVr with de leon band and valvuloplasty 11/20/2013 Redo Sternotomy MVR (27/29mm OnX) 12/08/13 readmitted for abdominal pain from OSH A/P -Abdominal pain: likely gastroenteritis, resolved -subtherapeutic INR, report that INR WAS 4.5 ans was told to hold coumadin till today then decrease dose from 12.5 to 10 mg, heparin drip for INR <1.8 (TODAY 1.7) coumadin 12.5 mg LFTS improving D/C in am per CTS if INR >2 Atelectasis 11/15/2013 04/29/2020 Overview: On RA, -3.4kg, CXR w/minimal posterior effusions and mild opacity that is most suggestive of atelectasis. Continue PEP/OOB/C&DB. Fluid overload 11/15/2013 11/16/2013 Overview: Pre-op wt 120.7 kg, current wt 129.6. Pt received IVF resuscitation in ICU, upon assessment generalized edema. Will start gentle diuresis with Lasix. Monitor I&O and daily weights. Urethral stricture 11/15/2013 11/16/2013 Overview: H/O of urethral stricture. Camacho D/C this am. Monitor Urine output. Cardiac insufficiency 11/13/2013 11/14/2013 Overview: RV sluggish post CPB. Improved with Epi. No pa cath in place. 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 Supplement as needed. Hypotension 11/13/2013 11/16/2013 Overview: Filling pressures remain low. Norepi for goal MAP > 65. Cont fluid resuscitation as needed. 11/15/2013 much improved BP after fluid resuscitation in ICU. Will start gentle diuresing and low dose BB and monitor. Pre-op testing 11/01/2013 11/16/2013 Overview: Images from the original note were not included. [facility] PRE-OP CHECKLIST Surgeon: Fernando Llanes M.D. Informed Consent Completed:yes CAD: No H & P completed: Yes PA/LAT: Completed CT: Completed MRI: N/A LE US: N/A Cath: Yes - reviewed: Yes Echo:Completed EKG: Completed EF %: 71 PI's: N/A Carotid: N/A Mapping: N/A Dental: Completed PFT's: Completed CBC, Coags, BMP, Mg, Phos Basename 11/19/13 0633 11/18/13 0506 11/17/13 0736 WBC 6.48 5.80 4.42 HB 8.7* 8.1* 7.7* HCT 26.8* 24.2* 23.6* PLT 323 226 169 INR -- -- -- APTT -- -- -- NA 140 138 138 K 4.4 4.2 3.8 CHLOR 102 103 101 CO2 27 25 27 BUN 9* 11 13 CREAT 0.90 0.84 0.83 GLUC 99 108* 102* CA 9.2 9.1 8.5 MG -- -- -- P -- -- -- UA: p HCG:N/A ABO/ABO Confirmed: Yes Blood ordered: Yes 2 SA Swab: Yes - results: positive - treated. Last Dose of Anticoagulation: asa 162 sub q heparin Op Note: yes Pacemaker Check: N/A Consults: none DM: No Cardiac Surgical prep: N/A SIGNATURE: Jackie Jc CNP CHECKED BY: arron DATE of SERVICE: 11/01/2013 TIME of SERVICE: 2:59 PM mwa 11/19 Mitral valve regurgitation 11/01/201311/16 Overview: s/p MVr 01/201311/13/2013:MV repair with 31 mm De Leon band and valvuloplasty Anticoagulation adequate 020 documented as of this encounter (statuses as of 11/13/2021) [facility] of Past illness Narrative* Problem Noted Date Resolved Date Lightheadedness 08/05/2015 04/29/2020 Overview: Differential includes arrhythmia (including block or atrial tach) versus volume- down versus valvular issue such as pannus growing into [facility] mitral valve. Unlikely that his septum has re-hypertrophied. It's unusual that he is having symptoms during my interview while he is in sinus rhythm and with a normal blood pressure, and normal orthostatics. -favor arrhythmia issues versus volume issues (although orthostatic vital signs negative) versus psych -exam suggests a well functioning valve prosthesis -no syncopal events Plan -telemetry -echocardiogram in AM, assess for valve function/thrombus/pannus -consider exercise testing to assess BP and HR response if echo is unrevealing -encouraged po intake -consider loop recorder prior to discharge Stricture, urethra 12/10/2014 04/29/2020 Subtherapeutic international normalized ratio (I NR) 12/08/2013 04/29/2020 Overview: GOAL 2.5-3.5 for mechanical mitral valve Home dose 12.5 but made his INR GO to >4.5 AND WAS TOLD TO STOP COUMADIN FOR 2 DAYS AND 12/08 INR 1.9 RESUME TODAY ON 10 MG 8/9 INR 1.7 heparin drip per CTS at rate 500cc/r goal PTT 50-60 coumadin 12.5 mg 12/10 INR 2 ok to discharge per CTS Will discharge on 12.5 mg dose alternating with 10 mg Abdominal pain 12/08/2013 04/29/2020 Overview: DISSECTION, appendicitis, obstruction and pancreatitis ruled out Likely gastroenteritis Resolving LFTS trending down tolerating regular diet Elevated LFTs 12/08/2013 04/29/2020 Overview: Up from yesterday ++AST, ALT,ALP , MAGNUS normal Goal bladder normal on CT abdomen. Likely reactive Improving Trend off tylenol Epistaxis 11/27/2013 04/29/2020 Overview: Nosebleed x 2 11/27, no further episode today. Discharge on ocean spray tid and afrin prn. If continues to be problematic, discussed ENT for eval. Anemia 11/21/2013 04/29/2020 Overview: H/H 8.1/25.3, stable. Received 1u PRBC 11/23, 2U PRBC 11/22. Discharge on iron. Hypovolemia 11/20/2013 11/22/2013 Overview: 11/20/2013 Low MAP and filling pressures. Replete volume. Pericardial effusion 11/17/2013 11/22/2013 Overview: History: S/p MVr, myectomy Assessment: small to moderate right pericardial effusion Plan: Having re-op on Wednesday11.20.2013. SUMMARY 11/16/2013 04/29/2020 Overview: Indication for admission/procedure: MR LVEF: Normal RVF: Normal PMH/PSH: MS, HTN, HPL, Sleep apnea (CPAP), Urethral stricture, Depression, 01/2013, LAAL, MVr Surgeries: 11/13/2013 Myectomy (5gm), MVr with de leon band and valvuloplasty 11/20/2013 Redo Sternotomy MVR (27/29mm OnX) 12/08/13 readmitted for abdominal pain from OSH A/P -Abdominal pain: likely gastroenteritis, resolved -subtherapeutic INR, report that INR WAS 4.5 ans was told to hold coumadin till today then decrease dose from 12.5 to 10 mg, heparin drip for INR <1.8 (TODAY 1.7) coumadin 12.5 mg LFTS improving D/C in am per CTS if INR >2 Atelectasis 11/15/2013 04/29/2020 Overview: On RA, -3.4kg, CXR w/minimal posterior effusions and mild opacity that is most suggestive of atelectasis. Continue PEP/OOB/C&DB. Fluid overload 11/15/2013 11/16/2013 Overview: Pre-op wt 120.7 kg, current wt 129.6. Pt received IVF resuscitation in ICU, upon assessment generalized edema. Will start gentle diuresis with Lasix. Monitor I&O and daily weights. Urethral stricture 11/15/2013 11/16/2013 Overview: H/O of urethral stricture. Camacho D/C this am. Monitor Urine output. Cardiac insufficiency 11/13/2013 11/14/2013 Overview: RV sluggish post CPB. Improved with Epi. No pa cath in place. 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 Supplement as needed. Hypotension 11/13/2013 11/16/2013 Overview: Filling pressures remain low. Norepi for goal MAP > 65. Cont fluid resuscitation as needed. 11/15/2013 much improved BP after fluid resuscitation in ICU. Will start gentle diuresing and low dose BB and monitor. Pre-op testing 11/01/2013 11/16/2013 Overview: Images from the original note were not included. [facility] PRE-OP CHECKLIST Surgeon: Fernando Llanes M.D. Informed Consent Completed:yes CAD: No H & P completed: Yes PA/LAT: Completed CT: Completed MRI: N/A LE US: N/A Cath: Yes - reviewed: Yes Echo:Completed EKG: Completed EF %: 71 PI's: N/A Carotid: N/A Mapping: N/A Dental: Completed PFT's: Completed CBC, Coags, BMP, Mg, Phos Basename 11/19/13 0633 11/18/13 0506 11/17/13 0736 WBC 6.48 5.80 4.42 HB 8.7* 8.1* 7.7* HCT 26.8* 24.2* 23.6* PLT 323 226 169 INR -- -- -- APTT -- -- -- NA 140 138 138 K 4.4 4.2 3.8 CHLOR 102 103 101 CO2 27 25 27 BUN 9* 11 13 CREAT 0.90 0.84 0.83 GLUC 99 108* 102* CA 9.2 9.1 8.5 MG -- -- -- P -- -- -- UA: p HCG:N/A ABO/ABO Confirmed: Yes Blood ordered: Yes 2 SA Swab: Yes - results: positive - treated. Last Dose of Anticoagulation: asa 162 sub q heparin Op Note: yes Pacemaker Check: N/A Consults: none DM: No Cardiac Surgical prep: N/A SIGNATURE: Jackie Jc CNP CHECKED BY: arron DATE of SERVICE: 11/01/2013 TIME of SERVICE: 2:59 PM mwa 11/19 Mitral valve regurgitation 11/01/201311/16 Overview: s/p MVr 01/201311/13/2013:MV repair with 31 mm De Leon band and valvuloplasty Anticoagulation adequate 020 documented as of this encounter (statuses as of 12/18/2021) [facility] of Past illness Narrative* Problem Noted Date Resolved Date Lightheadedness 08/05/2015 04/29/2020 Overview: Differential includes arrhythmia (including block or atrial tach) versus volume- down versus valvular issue such as pannus growing into [facility] mitral valve. Unlikely that his septum has re-hypertrophied. It's unusual that he is having symptoms during my interview while he is in sinus rhythm and with a normal blood pressure, and normal orthostatics. -favor arrhythmia issues versus volume issues (although orthostatic vital signs negative) versus psych -exam suggests a well functioning valve prosthesis -no syncopal events Plan -telemetry -echocardiogram in AM, assess for valve function/thrombus/pannus -consider exercise testing to assess BP and HR response if echo is unrevealing -encouraged po intake -consider loop recorder prior to discharge Stricture, urethra 12/10/2014 04/29/2020 Subtherapeutic international normalized ratio (I NR) 12/08/2013 04/29/2020 Overview: GOAL 2.5-3.5 for mechanical mitral valve Home dose 12.5 but made his INR GO to >4.5 AND WAS TOLD TO STOP COUMADIN FOR 2 DAYS AND 12/08 INR 1.9 RESUME TODAY ON 10 MG 12/09 INR 1.7 heparin drip per CTS at rate 500cc/r goal PTT 50-60 coumadin 12.5 mg 12/10 INR 2 ok to discharge per CTS Will discharge on 12.5 mg dose alternating with 10 mg Abdominal pain 12/08/2013 04/29/2020 Overview: DISSECTION, appendicitis, obstruction and pancreatitis ruled out Likely gastroenteritis Resolving LFTS trending down tolerating regular diet Elevated LFTs 12/08/2013 04/29/2020 Overview: Up from yesterday ++AST, ALT,ALP , MAGNUS normal Goal bladder normal on CT abdomen. Likely reactive Improving Trend off tylenol Epistaxis 11/27/2013 04/29/2020 Overview: Nosebleed x 2 11/27, no further episode today. Discharge on ocean spray tid and afrin prn. If continues to be problematic, discussed ENT for eval. Anemia 11/21/2013 04/29/2020 Overview: H/H 8.1/25.3, stable. Received 1u PRBC 11/23, 2U PRBC 11/22. Discharge on iron. Hypovolemia 11/20/2013 11/22/2013 Overview: 11/20/2013 Low MAP and filling pressures. Replete volume. Pericardial effusion 11/17/2013 11/22/2013 Overview: History: S/p MVr, myectomy Assessment: small to moderate right pericardial effusion Plan: Having re-op on Wednesday11.20.2013. SUMMARY 11/16/2013 04/29/2020 Overview: Indication for admission/procedure: MR LVEF: Normal RVF: Normal PMH/PSH: MS, HTN, HPL, Sleep apnea (CPAP), Urethral stricture, Depression, 01/2013, LAAL, MVr Surgeries: 11/13/2013 Myectomy (5gm), MVr with de leon band and valvuloplasty 11/20/2013 Redo Sternotomy MVR (27/29mm OnX) 12/08/13 readmitted for abdominal pain from OSH A/P -Abdominal pain: likely gastroenteritis, resolved -subtherapeutic INR, report that INR WAS 4.5 ans was told to hold coumadin till today then decrease dose from 12.5 to 10 mg, heparin drip for INR <1.8 (TODAY 1.7) coumadin 12.5 mg LFTS improving D/C in am per CTS if INR >2 Atelectasis 11/15/2013 04/29/2020 Overview: On RA, -3.4kg, CXR w/minimal posterior effusions and mild opacity that is most suggestive of atelectasis. Continue PEP/OOB/C&DB. Fluid overload 11/15/2013 11/16/2013 Overview: Pre-op wt 120.7 kg, current wt 129.6. Pt received IVF resuscitation in ICU, upon assessment generalized edema. Will start gentle diuresis with Lasix. Monitor I&O and daily weights. Urethral stricture 11/15/2013 11/16/2013 Overview: H/O of urethral stricture. Camacho D/C this am. Monitor Urine output. Cardiac insufficiency 11/13/2013 11/14/2013 Overview: RV sluggish post CPB. Improved with Epi. No pa cath in place. 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 Supplement as needed. Hypotension 11/13/2013 11/16/2013 Overview: Filling pressures remain low. Norepi for goal MAP > 65. Cont fluid resuscitation as needed. 11/15/2013 much improved BP after fluid resuscitation in ICU. Will start gentle diuresing and low dose BB and monitor. Pre-op testing 11/01/2013 11/16/2013 Overview: Images from the original note were not included. [facility] Surgeon: Fernando Llanes M.D. Informed Consent Completed:yes CAD: No H & P completed: Yes PA/LAT: Completed CT: Completed MRI: N/A LE US: N/A Cath: Yes - reviewed: Yes Echo:Completed EKG: Completed EF %: 71 PI's: N/A Carotid: N/A Mapping: N/A Dental: Completed PFT's: Completed CBC, Coags, BMP, Mg, Phos Basename 11/19/13 0633 11/18/13 0506 11/17/13 0736 WBC 6.48 5.80 4.42 HB 8.7* 8.1* 7.7* HCT 26.8* 24.2* 23.6* PLT 323 226 169 INR -- -- -- APTT -- -- -- NA 140 138 138 K 4.4 4.2 3.8 CHLOR 102 103 101 CO2 27 25 27 BUN 9* 11 13 CREAT 0.90 0.84 0.83 GLUC 99 108* 102* CA 9.2 9.1 8.5 MG -- -- -- P -- -- -- UA: p HCG:N/A ABO/ABO Confirmed: Yes Blood ordered: Yes 2 SA Swab: Yes - results: positive - treated. Last Dose of Anticoagulation: asa 162 sub q heparin Op Note: yes Pacemaker Check: N/A Consults: none DM: No Cardiac Surgical prep: N/A SIGNATURE: Jackie Jc CNP CHECKED BY: arron DATE of SERVICE: 11/01/2013 TIME of SERVICE: 2:59 PM mwa 11/19 Mitral valve regurgitation 11/01/201311/16 Overview: s/p MVr 01/201311/13/2013:MV repair with 31 mm De Leon band and valvuloplasty Anticoagulation adequate 020 documented as of this encounter (statuses as of 12/18/2021) [facility]04-04-2016 History of Past illness Narrative* Problem Noted Date Resolved Date Lightheadedness 08/05/2015 04/29/2020 Overview: Differential includes arrhythmia (including block or atrial tach) versus volume- down versus valvular issue such as pannus growing into [facility] mitral valve. Unlikely that his septum has re-hypertrophied. It's unusual that he is having symptoms during my interview while he is in sinus rhythm and with a normal blood pressure, and normal orthostatics. -favor arrhythmia issues versus volume issues (although orthostatic vital signs negative) versus psych -exam suggests a well functioning valve prosthesis -no syncopal events Plan -telemetry -echocardiogram in AM, assess for valve function/thrombus/pannus -consider exercise testing to assess BP and HR response if echo is unrevealing -encouraged po intake -consider loop recorder prior to discharge Stricture, urethra 12/10/2014 04/29/2020 Subtherapeutic international normalized ratio (I NR) 12/08/2013 04/29/2020 Overview: GOAL 2.5-3.5 for mechanical mitral valve Home dose 12.5 but made his INR GO to >4.5 AND WAS TOLD TO STOP COUMADIN FOR 2 DAYS AND 12/08 INR 1.9 RESUME TODAY ON 10 MG 12/09 INR 1.7 heparin drip per CTS at rate 500cc/r goal PTT 50-60 coumadin 12.5 mg 12/10 INR 2 ok to discharge per CTS Will discharge on 12.5 mg dose alternating with 10 mg Abdominal pain 12/08/2013 04/29/2020 Overview: DISSECTION, appendicitis, obstruction and pancreatitis ruled out Likely gastroenteritis Resolving LFTS trending down tolerating regular diet Elevated LFTs 12/08/2013 04/29/2020 Overview: Up from yesterday ++AST, ALT,ALP , MAGNUS normal Goal bladder normal on CT abdomen. Likely reactive Improving Trend off tylenol Epistaxis 11/27/2013 04/29/2020 Overview: Nosebleed x 2 11/27, no further episode today. Discharge on ocean spray tid and afrin prn. If continues to be problematic, discussed ENT for eval. Anemia 11/21/2013 04/29/2020 Overview: H/H 8.1/25.3, stable. Received 1u PRBC 11/23, 2U PRBC 11/22. Discharge on iron. Hypovolemia 11/20/2013 11/22/2013 Overview: 11/20/2013 Low MAP and filling pressures. Replete volume. Pericardial effusion 11/17/2013 11/22/2013 Overview: History: S/p MVr, myectomy Assessment: small to moderate right pericardial effusion Plan: Having re-op on Wednesday11.20.2013. SUMMARY 11/16/2013 04/29/2020 Overview: Indication for admission/procedure: MR LVEF: Normal RVF: Normal PMH/PSH: MS, HTN, HPL, Sleep apnea (CPAP), Urethral stricture, Depression, 01/2013, LAAL, MVr Surgeries: 11/13/2013 Myectomy (5gm), MVr with de leon band and valvuloplasty 11/20/2013 Redo Sternotomy MVR (27/29mm OnX) 12/08/13 readmitted for abdominal pain from OSH A/P -Abdominal pain: likely gastroenteritis, resolved -subtherapeutic INR, report that INR WAS 4.5 ans was told to hold coumadin till today then decrease dose from 12.5 to 10 mg, heparin drip for INR <1.8 (TODAY 1.7) coumadin 12.5 mg LFTS improving D/C in am per CTS if INR >2 Atelectasis 11/15/2013 04/29/2020 Overview: On RA, -3.4kg, CXR w/minimal posterior effusions and mild opacity that is most suggestive of atelectasis. Continue PEP/OOB/C&DB. Fluid overload 11/15/2013 11/16/2013 Overview: Pre-op wt 120.7 kg, current wt 129.6. Pt received IVF resuscitation in ICU, upon assessment generalized edema. Will start gentle diuresis with Lasix. Monitor I&O and daily weights. Urethral stricture 11/15/2013 11/16/2013 Overview: H/O of urethral stricture. Camacho D/C this am. Monitor Urine output. Cardiac insufficiency 11/13/2013 11/14/2013 Overview: RV sluggish post CPB. Improved with Epi. No pa cath in place. 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 Supplement as needed. Hypotension 11/13/2013 11/16/2013 Overview: Filling pressures remain low. Norepi for goal MAP > 65. Cont fluid resuscitation as needed. 11/15/2013 much improved BP after fluid resuscitation in ICU. Will start gentle diuresing and low dose BB and monitor. Pre-op testing 11/01/2013 11/16/2013 Overview: Images from the original note were not included. [facility] Surgeon: Fernando Llanes M.D. Informed Consent Completed:yes CAD: No H & P completed: Yes PA/LAT: Completed CT: Completed MRI: N/A LE US: N/A Cath: Yes - reviewed: Yes Echo:Completed EKG: Completed EF %: 71 PI's: N/A Carotid: N/A Mapping: N/A Dental: Completed PFT's: Completed CBC, Coags, BMP, Mg, Phos Basename 11/19/13 0633 11/18/13 0506 11/17/13 0736 WBC 6.48 5.80 4.42 HB 8.7* 8.1* 7.7* HCT 26.8* 24.2* 23.6* PLT 323 226 169 INR -- -- -- APTT -- -- -- NA 140 138 138 K 4.4 4.2 3.8 CHLOR 102 103 101 CO2 27 25 27 BUN 9* 11 13 CREAT 0.90 0.84 0.83 GLUC 99 108* 102* CA 9.2 9.1 8.5 MG -- -- -- P -- -- -- UA: p HCG:N/A ABO/ABO Confirmed: Yes Blood ordered: Yes 2 SA Swab: Yes - results: positive - treated. Last Dose of Anticoagulation: asa 162 sub q heparin Op Note: yes Pacemaker Check: N/A Consults: none DM: No Cardiac Surgical prep: N/A SIGNATURE: Jackie Jc CNP CHECKED BY: arron DATE of SERVICE: 11/01/2013 TIME of SERVICE: 2:59 PM mwa 11/19 Mitral valve regurgitation 11/01/201311/16 Overview: s/p MVr 01/201311/13/2013:MV repair with 31 mm De Leon band and valvuloplasty Anticoagulation adequate 020 documented as of this encounter (statuses as of 04/10/2022) [facility]04-[facility]-2016 History of Past illness Narrative* Problem Noted Date Resolved Date Lightheadedness 08/05/2015 04/29/2020 Overview: Differential includes arrhythmia (including block or atrial tach) versus volume- down versus valvular issue such as pannus growing into [facility] mitral valve. Unlikely that his septum has re-hypertrophied. It's unusual that he is having symptoms during my interview while he is in sinus rhythm and with a normal blood pressure, and normal orthostatics. -favor arrhythmia issues versus volume issues (although orthostatic vital signs negative) versus psych -exam suggests a well functioning valve prosthesis -no syncopal events Plan -telemetry -echocardiogram in AM, assess for valve function/thrombus/pannus -consider exercise testing to assess BP and HR response if echo is unrevealing -encouraged po intake -consider loop recorder prior to discharge Stricture, urethra 12/10/2014 04/29/2020 Subtherapeutic international normalized ratio (I NR) 12/08/2013 04/29/2020 Overview: GOAL 2.5-3.5 for mechanical mitral valve Home dose 12.5 but made his INR GO to >4.5 AND WAS TOLD TO STOP COUMADIN FOR 2 DAYS AND 12/08 INR 1.9 RESUME TODAY ON 10 MG 12/09 INR 1.7 heparin drip per CTS at rate 500cc/r goal PTT 50-60 coumadin 12.5 mg 12/10 INR 2 ok to discharge per CTS Will discharge on 12.5 mg dose alternating with 10 mg Abdominal pain 12/08/2013 04/29/2020 Overview: DISSECTION, appendicitis, obstruction and pancreatitis ruled out Likely gastroenteritis Resolving LFTS trending down tolerating regular diet Elevated LFTs 12/08/2013 04/29/2020 Overview: Up from yesterday ++AST, ALT,ALP , MAGNUS normal Goal bladder normal on CT abdomen. Likely reactive Improving Trend off tylenol Epistaxis 11/27/2013 04/29/2020 Overview: Nosebleed x 2 11/27, no further episode today. Discharge on ocean spray tid and afrin prn. If continues to be problematic, discussed ENT for eval. Anemia 11/21/2013 04/29/2020 Overview: H/H 8.1/25.3, stable. Received 1u PRBC 11/23, 2U PRBC 11/22. Discharge on iron. Hypovolemia 11/20/2013 11/22/2013 Overview: 11/20/2013 Low MAP and filling pressures. Replete volume. Pericardial effusion 11/17/2013 11/22/2013 Overview: History: S/p MVr, myectomy Assessment: small to moderate right pericardial effusion Plan: Having re-op on Wednesday11.20.2013. SUMMARY 11/16/2013 04/29/2020 Overview: Indication for admission/procedure: MR LVEF: Normal RVF: Normal PMH/PSH: MS, HTN, HPL, Sleep apnea (CPAP), Urethral stricture, Depression, 01/2013, LAAL, MVr Surgeries: 11/13/2013 Myectomy (5gm), MVr with de leon band and valvuloplasty 11/20/2013 Redo Sternotomy MVR (27/29mm OnX) 12/08/13 readmitted for abdominal pain from OSH A/P -Abdominal pain: likely gastroenteritis, resolved -subtherapeutic INR, report that INR WAS 4.5 ans was told to hold coumadin till today then decrease dose from 12.5 to 10 mg, heparin drip for INR <1.8 (TODAY 1.7) coumadin 12.5 mg LFTS improving D/C in am per CTS if INR >2 Atelectasis 11/15/2013 04/29/2020 Overview: On RA, -3.4kg, CXR w/minimal posterior effusions and mild opacity that is most suggestive of atelectasis. Continue PEP/OOB/C&DB. Fluid overload 11/15/2013 11/16/2013 Overview: Pre-op wt 120.7 kg, current wt 129.6. Pt received IVF resuscitation in ICU, upon assessment generalized edema. Will start gentle diuresis with Lasix. Monitor I&O and daily weights. Urethral stricture 11/15/2013 11/16/2013 Overview: H/O of urethral stricture. Camacho D/C this am. Monitor Urine output. Cardiac insufficiency 11/13/2013 11/14/2013 Overview: RV sluggish post CPB. Improved with Epi. No pa cath in place. 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 Supplement as needed. Hypotension 11/13/2013 11/16/2013 Overview: Filling pressures remain low. Norepi for goal MAP > 65. Cont fluid resuscitation as needed. 11/15/2013 much improved BP after fluid resuscitation in ICU. Will start gentle diuresing and low dose BB and monitor. Pre-op testing 11/01/2013 11/16/2013 Overview: Images from the original note were not included. [facility] PRE-[facility] CHECK[facility] Surgeon: Fernando Llanes M.D. Informed Consent Completed:yes CAD: No H & P completed: Yes PA/LAT: Completed CT: Completed MRI: N/A LE US: N/A Cath: Yes - reviewed: Yes Echo:Completed EKG: Completed EF %: 71 PI's: N/A Carotid: N/A Mapping: N/A Dental: Completed PFT's: Completed CBC, Coags, BMP, Mg, Phos Basename 11/19/13 0633 11/18/13 0506 11/17/13 0736 WBC 6.48 5.80 4.42 HB 8.7* 8.1* 7.7* HCT 26.8* 24.2* 23.6* PLT 323 226 169 INR -- -- -- APTT -- -- -- NA 140 138 138 K 4.4 4.2 3.8 CHLOR 102 103 101 CO2 27 25 27 BUN 9* 11 13 CREAT 0.90 0.84 0.83 GLUC 99 108* 102* CA 9.2 9.1 8.5 MG -- -- -- P -- -- -- UA: p HCG:N/A ABO/ABO Confirmed: Yes Blood ordered: Yes 2 SA Swab: Yes - results: positive - treated. Last Dose of Anticoagulation: asa 162 sub q heparin Op Note: yes Pacemaker Check: N/A Consults: none DM: No Cardiac Surgical prep: N/A SIGNATURE: Jackie Jc CNP CHECKED BY: arron DATE of SERVICE: 11/01/2013 TIME of SERVICE: 2:59 PM mwa 11/19 Mitral valve regurgitation 11/01/201311/16 Overview: s/p MVr 01/201311/13/2013:MV repair with 31 mm De Leon band and valvuloplasty Anticoagulation adequate 020 documented as of this encounter (statuses as of 04/18/2022) [facility]04-[facility]2016 History of Past illness Narrative* Problem Noted Date Resolved Date Lightheadedness 08/05/2015 04/29/2020 Overview: Differential includes arrhythmia (including block or atrial tach) versus volume- down versus valvular issue such as pannus growing into [facility] mitral valve. Unlikely that his septum has re-hypertrophied. It's unusual that he is having symptoms during my interview while he is in sinus rhythm and with a normal blood pressure, and normal orthostatics. -favor arrhythmia issues versus volume issues (although orthostatic vital signs negative) versus psych -exam suggests a well functioning valve prosthesis -no syncopal events Plan -telemetry -echocardiogram in AM, assess for valve function/thrombus/pannus -consider exercise testing to assess BP and HR response if echo is unrevealing -encouraged po intake -consider loop recorder prior to discharge Stricture, urethra 12/10/2014 04/29/2020 Subtherapeutic international normalized ratio (I NR) 12/08/2013 04/29/2020 Overview: GOAL 2.5-3.5 for mechanical mitral valve Home dose 12.5 but made his INR GO to >4.5 AND WAS TOLD TO STOP COUMADIN FOR 2 DAYS AND 12/08 INR 1.9 RESUME TODAY ON 10 MG / INR 1.7 heparin drip per CTS at rate 500cc/r goal PTT 50-60 coumadin 12.5 mg /10 INR 2 ok to discharge per CTS Will discharge on 12.5 mg dose alternating with 10 mg Abdominal pain 12/08/2013 04/29/2020 Overview: DISSECTION, appendicitis, obstruction and pancreatitis ruled out Likely gastroenteritis Resolving LFTS trending down tolerating regular diet Elevated LFTs 12/08/2013 04/29/2020 Overview: Up from yesterday ++AST, ALT,ALP , MAGNUS normal Goal bladder normal on CT abdomen. Likely reactive Improving Trend off tylenol Epistaxis 11/27/2013 04/29/2020 Overview: Nosebleed x 2 11/27, no further episode today. Discharge on ocean spray tid and afrin prn. If continues to be problematic, discussed ENT for eval. Anemia 11/21/2013 04/29/2020 Overview: H/H 8.1/25.3, stable. Received 1u PRBC 11/23, 2U PRBC 11/22. Discharge on iron. Hypovolemia 11/20/2013 11/22/2013 Overview: 11/20/2013 Low MAP and filling pressures. Replete volume. Pericardial effusion 11/17/2013 11/22/2013 Overview: History: S/p MVr, myectomy Assessment: small to moderate right pericardial effusion Plan: Having re-op on Wednesday11.20.2013. SUMMARY 11/16/2013 04/29/2020 Overview: Indication for admission/procedure: MR LVEF: Normal RVF: Normal PMH/PSH: MS, HTN, HPL, Sleep apnea (CPAP), Urethral stricture, Depression, 01/2013, LAAL, MVr Surgeries: 11/13/2013 Myectomy (5gm), MVr with de leon band and valvuloplasty 11/20/2013 Redo Sternotomy MVR (27/29mm OnX) 12/08/13 readmitted for abdominal pain from OSH A/P -Abdominal pain: likely gastroenteritis, resolved -subtherapeutic INR, report that INR WAS 4.5 ans was told to hold coumadin till today then decrease dose from 12.5 to 10 mg, heparin drip for INR <1.8 (TODAY 1.7) coumadin 12.5 mg LFTS improving D/C in am per CTS if INR >2 Atelectasis 11/15/2013 04/29/2020 Overview: On RA, -3.4kg, CXR w/minimal posterior effusions and mild opacity that is most suggestive of atelectasis. Continue PEP/OOB/C&DB. Fluid overload 11/15/2013 11/16/2013 Overview: Pre-op wt 120.7 kg, current wt 129.6. Pt received IVF resuscitation in ICU, upon assessment generalized edema. Will start gentle diuresis with Lasix. Monitor I&O and daily weights. Urethral stricture 11/15/2013 11/16/2013 Overview: H/O of urethral stricture. Camacho D/C this am. Monitor Urine output. Cardiac insufficiency 11/13/2013 11/14/2013 Overview: RV sluggish post CPB. Improved with Epi. No pa cath in place. 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 Supplement as needed. Hypotension 11/13/2013 11/16/2013 Overview: Filling pressures remain low. Norepi for goal MAP > 65. Cont fluid resuscitation as needed. 11/15/2013 much improved BP after fluid resuscitation in ICU. Will start gentle diuresing and low dose BB and monitor. Pre-op testing 11/01/2013 11/16/2013 Overview: Images from the original note were not included. [facility] Surgeon: Fernando Llanes M.D. Informed Consent Completed:yes CAD: No H & P completed: Yes PA/LAT: Completed CT: Completed MRI: N/A LE US: N/A Cath: Yes - reviewed: Yes Echo:Completed EKG: Completed EF %: 71 PI's: N/A Carotid: N/A Mapping: N/A Dental: Completed PFT's: Completed CBC, Coags, BMP, Mg, Phos Basename 11/19/13 0633 11/18/13 0506 11/17/13 0736 WBC 6.48 5.80 4.42 HB 8.7* 8.1* 7.7* HCT 26.8* 24.2* 23.6* PLT 323 226 169 INR -- -- -- APTT -- -- -- NA 140 138 138 K 4.4 4.2 3.8 CHLOR 102 103 101 CO2 27 25 27 BUN 9* 11 13 CREAT 0.90 0.84 0.83 GLUC 99 108* 102* CA 9.2 9.1 8.5 MG -- -- -- P -- -- -- UA: p HCG:N/A ABO/ABO Confirmed: Yes Blood ordered: Yes 2 SA Swab: Yes - results: positive - treated. Last Dose of Anticoagulation: asa 162 sub q heparin Op Note: yes Pacemaker Check: N/A Consults: none DM: No Cardiac Surgical prep: N/A SIGNATURE: Jackie Jc CNP CHECKED BY: arron DATE of SERVICE: 11/01/2013 TIME of SERVICE: 2:59 PM mwa 11/19 Mitral valve regurgitation 11/01/201311/16 Overview: s/p MVr 01/201311/13/2013:MV repair with 31 mm De Leon band and valvuloplasty Anticoagulation adequate 020 documented as of this encounter (statuses as of 04/20/2022) [facility]04[facility] History of Past illness Narrative* Problem Noted Date Resolved Date Lightheadedness 08/05/2015 04/29/2020 Overview: Differential includes arrhythmia (including block or atrial tach) versus volume- down versus valvular issue such as pannus growing into [facility] mitral valve. Unlikely that his septum has re-hypertrophied. It's unusual that he is having symptoms during my interview while he is in sinus rhythm and with a normal blood pressure, and normal orthostatics. -favor arrhythmia issues versus volume issues (although orthostatic vital signs negative) versus psych -exam suggests a well functioning valve prosthesis -no syncopal events Plan -telemetry -echocardiogram in AM, assess for valve function/thrombus/pannus -consider exercise testing to assess BP and HR response if echo is unrevealing -encouraged po intake -consider loop recorder prior to discharge Stricture, urethra 12/10/2014 04/29/2020 Subtherapeutic international normalized ratio (I NR) 12/08/2013 04/29/2020 Overview: GOAL 2.5-3.5 for mechanical mitral valve Home dose 12.5 but made his INR GO to >4.5 AND WAS TOLD TO STOP COUMADIN FOR 2 DAYS AND 12/08 INR 1.9 RESUME TODAY ON 10 MG 12/09 INR 1.7 heparin drip per CTS at rate 500cc/r goal PTT 50-60 coumadin 12.5 mg 12/10 INR 2 ok to discharge per CTS Will discharge on 12.5 mg dose alternating with 10 mg Abdominal pain 12/08/2013 04/29/2020 Overview: DISSECTION, appendicitis, obstruction and pancreatitis ruled out Likely gastroenteritis Resolving LFTS trending down tolerating regular diet Elevated LFTs 12/08/2013 04/29/2020 Overview: Up from yesterday ++AST, ALT,ALP , MAGNUS normal Goal bladder normal on CT abdomen. Likely reactive Improving Trend off tylenol Epistaxis 11/27/2013 04/29/2020 Overview: Nosebleed x 2 11/27, no further episode today. Discharge on ocean spray tid and afrin prn. If continues to be problematic, discussed ENT for eval. Anemia 11/21/2013 04/29/2020 Overview: H/H 8.1/25.3, stable. Received 1u PRBC 11/23, 2U PRBC 11/22. Discharge on iron. Hypovolemia 11/20/2013 11/22/2013 Overview: 11/20/2013 Low MAP and filling pressures. Replete volume. Pericardial effusion 11/17/2013 11/22/2013 Overview: History: S/p MVr, myectomy Assessment: small to moderate right pericardial effusion Plan: Having re-op on Wednesday11.20.2013. SUMMARY 11/16/2013 04/29/2020 Overview: Indication for admission/procedure: MR LVEF: Normal RVF: Normal PMH/PSH: MS, HTN, HPL, Sleep apnea (CPAP), Urethral stricture, Depression, 01/2013, LAAL, MVr Surgeries: 11/13/2013 Myectomy (5gm), MVr with de leon band and valvuloplasty 11/20/2013 Redo Sternotomy MVR (27/29mm OnX) 12/08/13 readmitted for abdominal pain from OSH A/P -Abdominal pain: likely gastroenteritis, resolved -subtherapeutic INR, report that INR WAS 4.5 ans was told to hold coumadin till today then decrease dose from 12.5 to 10 mg, heparin drip for INR <1.8 (TODAY 1.7) coumadin 12.5 mg LFTS improving D/C in am per CTS if INR >2 Atelectasis 11/15/2013 04/29/2020 Overview: On RA, -3.4kg, CXR w/minimal posterior effusions and mild opacity that is most suggestive of atelectasis. Continue PEP/OOB/C&DB. Fluid overload 11/15/2013 11/16/2013 Overview: Pre-op wt 120.7 kg, current wt 129.6. Pt received IVF resuscitation in ICU, upon assessment generalized edema. Will start gentle diuresis with Lasix. Monitor I&O and daily weights. Urethral stricture 11/15/2013 11/16/2013 Overview: H/O of urethral stricture. Camacho D/C this am. Monitor Urine output. Cardiac insufficiency 11/13/2013 11/14/2013 Overview: RV sluggish post CPB. Improved with Epi. No pa cath in place. 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 Supplement as needed. Hypotension 11/13/2013 11/16/2013 Overview: Filling pressures remain low. Norepi for goal MAP > 65. Cont fluid resuscitation as needed. 11/15/2013 much improved BP after fluid resuscitation in ICU. Will start gentle diuresing and low dose BB and monitor. Pre-op testing 11/01/2013 11/16/2013 Overview: Images from the original note were not included. [facility] PRE[facility] Surgeon: Fernando Llanes M.D. Informed Consent Completed:yes CAD: No H & P completed: Yes PA/LAT: Completed CT: Completed MRI: N/A LE US: N/A Cath: Yes - reviewed: Yes Echo:Completed EKG: Completed EF %: 71 PI's: N/A Carotid: N/A Mapping: N/A Dental: Completed PFT's: Completed CBC, Coags, BMP, Mg, Phos Basename 11/19/13 0633 11/18/13 0506 11/17/13 0736 WBC 6.48 5.80 4.42 HB 8.7* 8.1* 7.7* HCT 26.8* 24.2* 23.6* PLT 323 226 169 INR -- -- -- APTT -- -- -- NA 140 138 138 K 4.4 4.2 3.8 CHLOR 102 103 101 CO2 27 25 27 BUN 9* 11 13 CREAT 0.90 0.84 0.83 GLUC 99 108* 102* CA 9.2 9.1 8.5 MG -- -- -- P -- -- -- UA: p HCG:N/A ABO/ABO Confirmed: Yes Blood ordered: Yes 2 SA Swab: Yes - results: positive - treated. Last Dose of Anticoagulation: asa 162 sub q heparin Op Note: yes Pacemaker Check: N/A Consults: none DM: No Cardiac Surgical prep: N/A SIGNATURE: Jackie Jc CNP CHECKED BY: arron DATE of SERVICE: 11/01/2013 TIME of SERVICE: 2:59 PM mwa 11/19 Mitral valve regurgitation 11/01/201311/16 Overview: s/p MVr 01/201311/13/2013:MV repair with 31 mm De Leon band and valvuloplasty Anticoagulation adequate 020 documented as of this encounter (statuses as of 06/19/2022) [facility]04-04-2016 History of Past illness Narrative* Problem Noted Date Resolved Date Lightheadedness 08/05/2015 04/29/2020 Overview: Differential includes arrhythmia (including block or atrial tach) versus volume- down versus valvular issue such as pannus growing into mech mitral valve. Unlikely that his septum has re-hypertrophied. It's unusual that he is having symptoms during my interview while he is in sinus rhythm and with a normal blood pressure, and normal orthostatics. -favor arrhythmia issues versus volume issues (although orthostatic vital signs negative) versus psych -exam suggests a well functioning valve prosthesis -no syncopal events Plan -telemetry -echocardiogram in AM, assess for valve function/thrombus/pannus -consider exercise testing to assess BP and HR response if echo is unrevealing -encouraged po intake -consider loop recorder prior to discharge Stricture, urethra 12/10/2014 04/29/2020 Subtherapeutic international normalized ratio (I NR) 12/08/2013 04/29/2020 Overview: GOAL 2.5-3.5 for mechanical mitral valve Home dose 12.5 but made his INR GO to >4.5 AND WAS TOLD TO STOP COUMADIN FOR 2 DAYS AND 12/08 INR 1.9 RESUME TODAY ON 10 MG /9 INR 1.7 heparin drip per CTS at rate 500cc/r goal PTT 50-60 coumadin 12.5 mg /10 INR 2 ok to discharge per CTS Will discharge on 12.5 mg dose alternating with 10 mg Abdominal pain 12/08/2013 04/29/2020 Overview: DISSECTION, appendicitis, obstruction and pancreatitis ruled out Likely gastroenteritis Resolving LFTS trending down tolerating regular diet Elevated LFTs 12/08/2013 04/29/2020 Overview: Up from yesterday ++AST, ALT,ALP , MAGNUS normal Goal bladder normal on CT abdomen. Likely reactive Improving Trend off tylenol Epistaxis 11/27/2013 04/29/2020 Overview: Nosebleed x 2 11/27, no further episode today. Discharge on ocean spray tid and afrin prn. If continues to be problematic, discussed ENT for eval. Anemia 11/21/2013 04/29/2020 Overview: H/H 8.1/25.3, stable. Received 1u PRBC 11/23, 2U PRBC 11/22. Discharge on iron. Hypovolemia 11/20/2013 11/22/2013 Overview: 11/20/2013 Low MAP and filling pressures. Replete volume. Pericardial effusion 11/17/2013 11/22/2013 Overview: History: S/p MVr, myectomy Assessment: small to moderate right pericardial effusion Plan: Having re-op on Wednesday11.20.2013. SUMMARY 11/16/2013 04/29/2020 Overview: Indication for admission/procedure: MR LVEF: Normal RVF: Normal PMH/PSH: MS, HTN, HPL, Sleep apnea (CPAP), Urethral stricture, Depression, 01/2013, LAAL, MVr Surgeries: 11/13/2013 Myectomy (5gm), MVr with de leon band and valvuloplasty 11/20/2013 Redo Sternotomy MVR (27/29mm OnX) 12/08/13 readmitted for abdominal pain from OSH A/P -Abdominal pain: likely gastroenteritis, resolved -subtherapeutic INR, report that INR WAS 4.5 ans was told to hold coumadin till today then decrease dose from 12.5 to 10 mg, heparin drip for INR <1.8 (TODAY 1.7) coumadin 12.5 mg LFTS improving D/C in am per CTS if INR >2 Atelectasis 11/15/2013 04/29/2020 Overview: On RA, -3.4kg, CXR w/minimal posterior effusions and mild opacity that is most suggestive of atelectasis. Continue PEP/OOB/C&DB. Fluid overload 11/15/2013 11/16/2013 Overview: Pre-op wt 120.7 kg, current wt 129.6. Pt received IVF resuscitation in ICU, upon assessment generalized edema. Will start gentle diuresis with Lasix. Monitor I&O and daily weights. Urethral stricture 11/15/2013 11/16/2013 Overview: H/O of urethral stricture. Camacho D/C this am. Monitor Urine output. Cardiac insufficiency 11/13/2013 11/14/2013 Overview: RV sluggish post CPB. Improved with Epi. No pa cath in place. 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 Supplement as needed. Hypotension 11/13/2013 11/16/2013 Overview: Filling pressures remain low. Norepi for goal MAP > 65. Cont fluid resuscitation as needed. 11/15/2013 much improved BP after fluid resuscitation in ICU. Will start gentle diuresing and low dose BB and monitor. Pre-op testing 11/01/2013 11/16/2013 Overview: Images from the original note were not included. [facility] PRE-[facility] CHECK[facility] Surgeon: Fernando Llanes M.D. Informed Consent Completed:yes CAD: No H & P completed: Yes PA/LAT: Completed CT: Completed MRI: N/A LE US: N/A Cath: Yes - reviewed: Yes Echo:Completed EKG: Completed EF %: 71 PI's: N/A Carotid: N/A Mapping: N/A Dental: Completed PFT's: Completed CBC, Coags, BMP, Mg, Phos Basename 11/19/13 0633 11/18/13 0506 11/17/13 0736 WBC 6.48 5.80 4.42 HB 8.7* 8.1* 7.7* HCT 26.8* 24.2* 23.6* PLT 323 226 169 INR -- -- -- APTT -- -- -- NA 140 138 138 K 4.4 4.2 3.8 CHLOR 102 103 101 CO2 27 25 27 BUN 9* 11 13 CREAT 0.90 0.84 0.83 GLUC 99 108* 102* CA 9.2 9.1 8.5 MG -- -- -- P -- -- -- UA: p HCG:N/A ABO/ABO Confirmed: Yes Blood ordered: Yes 2 SA Swab: Yes - results: positive - treated. Last Dose of Anticoagulation: asa 162 sub q heparin Op Note: yes Pacemaker Check: N/A Consults: none DM: No Cardiac Surgical prep: N/A SIGNATURE: Jackie Jc CNP CHECKED BY: arron DATE of SERVICE: 11/01/2013 TIME of SERVICE: 2:59 PM mwa 11/19 Mitral valve regurgitation 11/01/201311/16 Overview: s/p MVr 01/201311/13/2013:MV repair with 31 mm De Leon band and valvuloplasty Anticoagulation adequate 020 documented as of this encounter (statuses as of 06/25/2022) [facility]04-04-2016 History of Past illness Narrative* Problem Noted Date Resolved Date Lightheadedness 08/05/2015 04/29/2020 Overview: Differential includes arrhythmia (including block or atrial tach) versus volume- down versus valvular issue such as pannus growing into [facility] mitral valve. Unlikely that his septum has re-hypertrophied. It's unusual that he is having symptoms during my interview while he is in sinus rhythm and with a normal blood pressure, and normal orthostatics. -favor arrhythmia issues versus volume issues (although orthostatic vital signs negative) versus psych -exam suggests a well functioning valve prosthesis -no syncopal events Plan -telemetry -echocardiogram in AM, assess for valve function/thrombus/pannus -consider exercise testing to assess BP and HR response if echo is unrevealing -encouraged po intake -consider loop recorder prior to discharge Stricture, urethra 12/10/2014 04/29/2020 Subtherapeutic international normalized ratio (I NR) 12/08/2013 04/29/2020 Overview: GOAL 2.5-3.5 for mechanical mitral valve Home dose 12.5 but made his INR GO to >4.5 AND WAS TOLD TO STOP COUMADIN FOR 2 DAYS AND 12/08 INR 1.9 RESUME TODAY ON 10 MG 12/09 INR 1.7 heparin drip per CTS at rate 500cc/r goal PTT 50-60 coumadin 12.5 mg 12/10 INR 2 ok to discharge per CTS Will discharge on 12.5 mg dose alternating with 10 mg Abdominal pain 12/08/2013 04/29/2020 Overview: DISSECTION, appendicitis, obstruction and pancreatitis ruled out Likely gastroenteritis Resolving LFTS trending down tolerating regular diet Elevated LFTs 12/08/2013 04/29/2020 Overview: Up from yesterday ++AST, ALT,ALP , MAGNUS normal Goal bladder normal on CT abdomen. Likely reactive Improving Trend off tylenol Epistaxis 11/27/2013 04/29/2020 Overview: Nosebleed x 2 11/27, no further episode today. Discharge on ocean spray tid and afrin prn. If continues to be problematic, discussed ENT for eval. Anemia 11/21/2013 04/29/2020 Overview: H/H 8.1/25.3, stable. Received 1u PRBC 11/23, 2U PRBC 11/22. Discharge on iron. Hypovolemia 11/20/2013 11/22/2013 Overview: 11/20/2013 Low MAP and filling pressures. Replete volume. Pericardial effusion 11/17/2013 11/22/2013 Overview: History: S/p MVr, myectomy Assessment: small to moderate right pericardial effusion Plan: Having re-op on Wednesday11.20.2013. SUMMARY 11/16/2013 04/29/2020 Overview: Indication for admission/procedure: MR LVEF: Normal RVF: Normal PMH/PSH: MS, HTN, HPL, Sleep apnea (CPAP), Urethral stricture, Depression, 01/2013, LAAL, MVr Surgeries: 11/13/2013 Myectomy (5gm), MVr with de leon band and valvuloplasty 11/20/2013 Redo Sternotomy MVR (27/29mm OnX) 12/08/13 readmitted for abdominal pain from OSH A/P -Abdominal pain: likely gastroenteritis, resolved -subtherapeutic INR, report that INR WAS 4.5 ans was told to hold coumadin till today then decrease dose from 12.5 to 10 mg, heparin drip for INR <1.8 (TODAY 1.7) coumadin 12.5 mg LFTS improving D/C in am per CTS if INR >2 Atelectasis 11/15/2013 04/29/2020 Overview: On RA, -3.4kg, CXR w/minimal posterior effusions and mild opacity that is most suggestive of atelectasis. Continue PEP/OOB/C&DB. Fluid overload 11/15/2013 11/16/2013 Overview: Pre-op wt 120.7 kg, current wt 129.6. Pt received IVF resuscitation in ICU, upon assessment generalized edema. Will start gentle diuresis with Lasix. Monitor I&O and daily weights. Urethral stricture 11/15/2013 11/16/2013 Overview: H/O of urethral stricture. Camacho D/C this am. Monitor Urine output. Cardiac insufficiency 11/13/2013 11/14/2013 Overview: RV sluggish post CPB. Improved with Epi. No pa cath in place. 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 Supplement as needed. Hypotension 11/13/2013 11/16/2013 Overview: Filling pressures remain low. Norepi for goal MAP > 65. Cont fluid resuscitation as needed. 11/15/2013 much improved BP after fluid resuscitation in ICU. Will start gentle diuresing and low dose BB and monitor. Pre-op testing 11/01/2013 11/16/2013 Overview: Images from the original note were not included. [facility] PRE-OP CHECKLIST Surgeon: Fernando Llanes M.D. Informed Consent Completed:yes CAD: No H & P completed: Yes PA/LAT: Completed CT: Completed MRI: N/A LE US: N/A Cath: Yes - reviewed: Yes Echo:Completed EKG: Completed EF %: 71 PI's: N/A Carotid: N/A Mapping: N/A Dental: Completed PFT's: Completed CBC, Coags, BMP, Mg, Phos Basename 11/19/13 0633 11/18/13 0506 11/17/13 0736 WBC 6.48 5.80 4.42 HB 8.7* 8.1* 7.7* HCT 26.8* 24.2* 23.6* PLT 323 226 169 INR -- -- -- APTT -- -- -- NA 140 138 138 K 4.4 4.2 3.8 CHLOR 102 103 101 CO2 27 25 27 BUN 9* 11 13 CREAT 0.90 0.84 0.83 GLUC 99 108* 102* CA 9.2 9.1 8.5 MG -- -- -- P -- -- -- UA: p HCG:N/A ABO/ABO Confirmed: Yes Blood ordered: Yes 2 SA Swab: Yes - results: positive - treated. Last Dose of Anticoagulation: asa 162 sub q heparin Op Note: yes Pacemaker Check: N/A Consults: none DM: No Cardiac Surgical prep: N/A SIGNATURE: Jackie Jc CNP CHECKED BY: arron DATE of SERVICE: 11/01/2013 TIME of SERVICE: 2:59 PM mwa 11/19 Mitral valve regurgitation 11/01/201311/16 Overview: s/p MVr 01/201311/13/2013:MV repair with 31 mm De Leon band and valvuloplasty Anticoagulation adequate 020 documented as of this encounter (statuses as of 06/25/2022) [facility]04[facility] History of Past illness Narrative* Problem Noted Date Resolved Date Lightheadedness 08/05/2015 04/29/2020 Overview: Differential includes arrhythmia (including block or atrial tach) versus volume- down versus valvular issue such as pannus growing into [facility] mitral valve. Unlikely that his septum has re-hypertrophied. It's unusual that he is having symptoms during my interview while he is in sinus rhythm and with a normal blood pressure, and normal orthostatics. -favor arrhythmia issues versus volume issues (although orthostatic vital signs negative) versus psych -exam suggests a well functioning valve prosthesis -no syncopal events Plan -telemetry -echocardiogram in AM, assess for valve function/thrombus/pannus -consider exercise testing to assess BP and HR response if echo is unrevealing -encouraged po intake -consider loop recorder prior to discharge Stricture, urethra 12/10/2014 04/29/2020 Subtherapeutic international normalized ratio (I NR) 12/08/2013 04/29/2020 Overview: GOAL 2.5-3.5 for mechanical mitral valve Home dose 12.5 but made his INR GO to >4.5 AND WAS TOLD TO STOP COUMADIN FOR 2 DAYS AND 12/08 INR 1.9 RESUME TODAY ON 10 MG / INR 1.7 heparin drip per CTS at rate 500cc/r goal PTT 50-60 coumadin 12.5 mg 12/10 INR 2 ok to discharge per CTS Will discharge on 12.5 mg dose alternating with 10 mg Abdominal pain 12/08/2013 04/29/2020 Overview: DISSECTION, appendicitis, obstruction and pancreatitis ruled out Likely gastroenteritis Resolving LFTS trending down tolerating regular diet Elevated LFTs 12/08/2013 04/29/2020 Overview: Up from yesterday ++AST, ALT,ALP , MAGNUS normal Goal bladder normal on CT abdomen. Likely reactive Improving Trend off tylenol Epistaxis 11/27/2013 04/29/2020 Overview: Nosebleed x 2 11/27, no further episode today. Discharge on ocean spray tid and afrin prn. If continues to be problematic, discussed ENT for eval. Anemia 11/21/2013 04/29/2020 Overview: H/H 8.1/25.3, stable. Received 1u PRBC 11/23, 2U PRBC 11/22. Discharge on iron. Hypovolemia 11/20/2013 11/22/2013 Overview: 11/20/2013 Low MAP and filling pressures. Replete volume. Pericardial effusion 11/17/2013 11/22/2013 Overview: History: S/p MVr, myectomy Assessment: small to moderate right pericardial effusion Plan: Having re-op on Wednesday11.20.2013. SUMMARY 11/16/2013 04/29/2020 Overview: Indication for admission/procedure: MR LVEF: Normal RVF: Normal PMH/PSH: MS, HTN, HPL, Sleep apnea (CPAP), Urethral stricture, Depression, 01/2013, LAAL, MVr Surgeries: 11/13/2013 Myectomy (5gm), MVr with de leon band and valvuloplasty 11/20/2013 Redo Sternotomy MVR (27/29mm OnX) 12/08/13 readmitted for abdominal pain from OSH A/P -Abdominal pain: likely gastroenteritis, resolved -subtherapeutic INR, report that INR WAS 4.5 ans was told to hold coumadin till today then decrease dose from 12.5 to 10 mg, heparin drip for INR <1.8 (TODAY 1.7) coumadin 12.5 mg LFTS improving D/C in am per CTS if INR >2 Atelectasis 11/15/2013 04/29/2020 Overview: On RA, -3.4kg, CXR w/minimal posterior effusions and mild opacity that is most suggestive of atelectasis. Continue PEP/OOB/C&DB. Fluid overload 11/15/2013 11/16/2013 Overview: Pre-op wt 120.7 kg, current wt 129.6. Pt received IVF resuscitation in ICU, upon assessment generalized edema. Will start gentle diuresis with Lasix. Monitor I&O and daily weights. Urethral stricture 11/15/2013 11/16/2013 Overview: H/O of urethral stricture. Camacho D/C this am. Monitor Urine output. Cardiac insufficiency 11/13/2013 11/14/2013 Overview: RV sluggish post CPB. Improved with Epi. No pa cath in place. 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 Supplement as needed. Hypotension 11/13/2013 11/16/2013 Overview: Filling pressures remain low. Norepi for goal MAP > 65. Cont fluid resuscitation as needed. 11/15/2013 much improved BP after fluid resuscitation in ICU. Will start gentle diuresing and low dose BB and monitor. Pre-op testing 11/01/2013 11/16/2013 Overview: Images from the original note were not included. [facility] PRE-OP CHECKLIST Surgeon: Fernando Llanes M.D. Informed Consent Completed:yes CAD: No H & P completed: Yes PA/LAT: Completed CT: Completed MRI: N/A LE US: N/A Cath: Yes - reviewed: Yes Echo:Completed EKG: Completed EF %: 71 PI's: N/A Carotid: N/A Mapping: N/A Dental: Completed PFT's: Completed CBC, Coags, BMP, Mg, Phos Basename 11/19/13 0633 11/18/13 0506 11/17/13 0736 WBC 6.48 5.80 4.42 HB 8.7* 8.1* 7.7* HCT 26.8* 24.2* 23.6* PLT 323 226 169 INR -- -- -- APTT -- -- -- NA 140 138 138 K 4.4 4.2 3.8 CHLOR 102 103 101 CO2 27 25 27 BUN 9* 11 13 CREAT 0.90 0.84 0.83 GLUC 99 108* 102* CA 9.2 9.1 8.5 MG -- -- -- P -- -- -- UA: p HCG:N/A ABO/ABO Confirmed: Yes Blood ordered: Yes 2 SA Swab: Yes - results: positive - treated. Last Dose of Anticoagulation: asa 162 sub q heparin Op Note: yes Pacemaker Check: N/A Consults: none DM: No Cardiac Surgical prep: N/A SIGNATURE: Jackie Jc CNP CHECKED BY: arron DATE of SERVICE: 11/01/2013 TIME of SERVICE: 2:59 PM mwa 11/19 Mitral valve regurgitation 11/01/201311/16 Overview: s/p MVr 01/201311/13/2013:MV repair with 31 mm De Leon band and valvuloplasty Anticoagulation adequate 020 documented as of this encounter (statuses as of 08/12/2022) [facility] History of Past illness Narrative* Problem Noted Date Resolved Date Lightheadedness 08/05/2015 04/29/2020 Overview: Differential includes arrhythmia (including block or atrial tach) versus volume- down versus valvular issue such as pannus growing into [facility] mitral valve. Unlikely that his septum has re-hypertrophied. It's unusual that he is having symptoms during my interview while he is in sinus rhythm and with a normal blood pressure, and normal orthostatics. -favor arrhythmia issues versus volume issues (although orthostatic vital signs negative) versus psych -exam suggests a well functioning valve prosthesis -no syncopal events Plan -telemetry -echocardiogram in AM, assess for valve function/thrombus/pannus -consider exercise testing to assess BP and HR response if echo is unrevealing -encouraged po intake -consider loop recorder prior to discharge Stricture, urethra 12/10/2014 04/29/2020 Subtherapeutic international normalized ratio (I NR) 12/08/2013 04/29/2020 Overview: GOAL 2.5-3.5 for mechanical mitral valve Home dose 12.5 but made his INR GO to >4.5 AND WAS TOLD TO STOP COUMADIN FOR 2 DAYS AND 12/08 INR 1.9 RESUME TODAY ON 10 MG 12/09 INR 1.7 heparin drip per CTS at rate 500cc/r goal PTT 50-60 coumadin 12.5 mg 12/10 INR 2 ok to discharge per CTS Will discharge on 12.5 mg dose alternating with 10 mg Abdominal pain 12/08/2013 04/29/2020 Overview: DISSECTION, appendicitis, obstruction and pancreatitis ruled out Likely gastroenteritis Resolving LFTS trending down tolerating regular diet Elevated LFTs 12/08/2013 04/29/2020 Overview: Up from yesterday ++AST, ALT,ALP , MAGNUS normal Goal bladder normal on CT abdomen. Likely reactive Improving Trend off tylenol Epistaxis 11/27/2013 04/29/2020 Overview: Nosebleed x 2 11/27, no further episode today. Discharge on ocean spray tid and afrin prn. If continues to be problematic, discussed ENT for eval. Anemia 11/21/2013 04/29/2020 Overview: H/H 8.1/25.3, stable. Received 1u PRBC 11/23, 2U PRBC 11/22. Discharge on iron. Hypovolemia 11/20/2013 11/22/2013 Overview: 11/20/2013 Low MAP and filling pressures. Replete volume. Pericardial effusion 11/17/2013 11/22/2013 Overview: History: S/p MVr, myectomy Assessment: small to moderate right pericardial effusion Plan: Having re-op on Wednesday11.20.2013. SUMMARY 11/16/2013 04/29/2020 Overview: Indication for admission/procedure: MR LVEF: Normal RVF: Normal PMH/PSH: MS, HTN, HPL, Sleep apnea (CPAP), Urethral stricture, Depression, 01/2013, LAAL, MVr Surgeries: 11/13/2013 Myectomy (5gm), MVr with de leon band and valvuloplasty 11/20/2013 Redo Sternotomy MVR (27/29mm OnX) 12/08/13 readmitted for abdominal pain from OSH A/P -Abdominal pain: likely gastroenteritis, resolved -subtherapeutic INR, report that INR WAS 4.5 ans was told to hold coumadin till today then decrease dose from 12.5 to 10 mg, heparin drip for INR <1.8 (TODAY 1.7) coumadin 12.5 mg LFTS improving D/C in am per CTS if INR >2 Atelectasis 11/15/2013 04/29/2020 Overview: On RA, -3.4kg, CXR w/minimal posterior effusions and mild opacity that is most suggestive of atelectasis. Continue PEP/OOB/C&DB. Fluid overload 11/15/2013 11/16/2013 Overview: Pre-op wt 120.7 kg, current wt 129.6. Pt received IVF resuscitation in ICU, upon assessment generalized edema. Will start gentle diuresis with Lasix. Monitor I&O and daily weights. Urethral stricture 11/15/2013 11/16/2013 Overview: H/O of urethral stricture. Camacho D/C this am. Monitor Urine output. Cardiac insufficiency 11/13/2013 11/14/2013 Overview: RV sluggish post CPB. Improved with Epi. No pa cath in place. 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 Supplement as needed. Hypotension 11/13/2013 11/16/2013 Overview: Filling pressures remain low. Norepi for goal MAP > 65. Cont fluid resuscitation as needed. 11/15/2013 much improved BP after fluid resuscitation in ICU. Will start gentle diuresing and low dose BB and monitor. Pre-op testing 11/01/2013 11/16/2013 Overview: Images from the original note were not included. [facility] PRE-[facility] Surgeon: Fernando Llanes M.D. Informed Consent Completed:yes CAD: No H & P completed: Yes PA/LAT: Completed CT: Completed MRI: N/A LE US: N/A Cath: Yes - reviewed: Yes Echo:Completed EKG: Completed EF %: 71 PI's: N/A Carotid: N/A Mapping: N/A Dental: Completed PFT's: Completed CBC, Coags, BMP, Mg, Phos Basename 11/19/13 0633 11/18/13 0506 11/17/13 0736 WBC 6.48 5.80 4.42 HB 8.7* 8.1* 7.7* HCT 26.8* 24.2* 23.6* PLT 323 226 169 INR -- -- -- APTT -- -- -- NA 140 138 138 K 4.4 4.2 3.8 CHLOR 102 103 101 CO2 27 25 27 BUN 9* 11 13 CREAT 0.90 0.84 0.83 GLUC 99 108* 102* CA 9.2 9.1 8.5 MG -- -- -- P -- -- -- UA: p HCG:N/A ABO/ABO Confirmed: Yes Blood ordered: Yes 2 SA Swab: Yes - results: positive - treated. Last Dose of Anticoagulation: asa 162 sub q heparin Op Note: yes Pacemaker Check: N/A Consults: none DM: No Cardiac Surgical prep: N/A SIGNATURE: Jackie Jc CNP CHECKED BY: arron DATE of SERVICE: 11/01/2013 TIME of SERVICE: 2:59 PM mwa 11/19 Mitral valve regurgitation 11/01/201311/16 Overview: s/p MVr 01/201311/13/2013:MV repair with 31 mm De Leon band and valvuloplasty Anticoagulation adequate 020 documented as of this encounter (statuses as of 08/13/2022) [facility]04-04-2016 History of Past illness Narrative* Problem Noted Date Resolved Date Lightheadedness 08/05/2015 04/29/2020 Overview: Differential includes arrhythmia (including block or atrial tach) versus volume- down versus valvular issue such as pannus growing into [facility] mitral valve. Unlikely that his septum has re-hypertrophied. It's unusual that he is having symptoms during my interview while he is in sinus rhythm and with a normal blood pressure, and normal orthostatics. -favor arrhythmia issues versus volume issues (although orthostatic vital signs negative) versus psych -exam suggests a well functioning valve prosthesis -no syncopal events Plan -telemetry -echocardiogram in AM, assess for valve function/thrombus/pannus -consider exercise testing to assess BP and HR response if echo is unrevealing -encouraged po intake -consider loop recorder prior to discharge Stricture, urethra 12/10/2014 04/29/2020 Subtherapeutic international normalized ratio (I NR) 12/08/2013 04/29/2020 Overview: GOAL 2.5-3.5 for mechanical mitral valve Home dose 12.5 but made his INR GO to >4.5 AND WAS TOLD TO STOP COUMADIN FOR 2 DAYS AND 12/08 INR 1.9 RESUME TODAY ON 10 MG 12/09 INR 1.7 heparin drip per CTS at rate 500cc/r goal PTT 50-60 coumadin 12.5 mg 12/10 INR 2 ok to discharge per CTS Will discharge on 12.5 mg dose alternating with 10 mg Abdominal pain 12/08/2013 04/29/2020 Overview: DISSECTION, appendicitis, obstruction and pancreatitis ruled out Likely gastroenteritis Resolving LFTS trending down tolerating regular diet Elevated LFTs 12/08/2013 04/29/2020 Overview: Up from yesterday ++AST, ALT,ALP , MAGNUS normal Goal bladder normal on CT abdomen. Likely reactive Improving Trend off tylenol Epistaxis 11/27/2013 04/29/2020 Overview: Nosebleed x 2 11/27, no further episode today. Discharge on ocean spray tid and afrin prn. If continues to be problematic, discussed ENT for eval. Anemia 11/21/2013 04/29/2020 Overview: H/H 8.1/25.3, stable. Received 1u PRBC 11/23, 2U PRBC 11/22. Discharge on iron. Hypovolemia 11/20/2013 11/22/2013 Overview: 11/20/2013 Low MAP and filling pressures. Replete volume. Pericardial effusion 11/17/2013 11/22/2013 Overview: History: S/p MVr, myectomy Assessment: small to moderate right pericardial effusion Plan: Having re-op on Wednesday11.20.2013. SUMMARY 11/16/2013 04/29/2020 Overview: Indication for admission/procedure: MR LVEF: Normal RVF: Normal PMH/PSH: MS, HTN, HPL, Sleep apnea (CPAP), Urethral stricture, Depression, 01/2013, LAAL, MVr Surgeries: 11/13/2013 Myectomy (5gm), MVr with de leon band and valvuloplasty 11/20/2013 Redo Sternotomy MVR (27/29mm OnX) 12/08/13 readmitted for abdominal pain from OSH A/P -Abdominal pain: likely gastroenteritis, resolved -subtherapeutic INR, report that INR WAS 4.5 ans was told to hold coumadin till today then decrease dose from 12.5 to 10 mg, heparin drip for INR <1.8 (TODAY 1.7) coumadin 12.5 mg LFTS improving D/C in am per CTS if INR >2 Atelectasis 11/15/2013 04/29/2020 Overview: On RA, -3.4kg, CXR w/minimal posterior effusions and mild opacity that is most suggestive of atelectasis. Continue PEP/OOB/C&DB. Fluid overload 11/15/2013 11/16/2013 Overview: Pre-op wt 120.7 kg, current wt 129.6. Pt received IVF resuscitation in ICU, upon assessment generalized edema. Will start gentle diuresis with Lasix. Monitor I&O and daily weights. Urethral stricture 11/15/2013 11/16/2013 Overview: H/O of urethral stricture. Camacho D/C this am. Monitor Urine output. Cardiac insufficiency 11/13/2013 11/14/2013 Overview: RV sluggish post CPB. Improved with Epi. No pa cath in place. 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 Supplement as needed. Hypotension 11/13/2013 11/16/2013 Overview: Filling pressures remain low. Norepi for goal MAP > 65. Cont fluid resuscitation as needed. 11/15/2013 much improved BP after fluid resuscitation in ICU. Will start gentle diuresing and low dose BB and monitor. Pre-op testing 11/01/2013 11/16/2013 Overview: Images from the original note were not included. [facility] Surgeon: Fernando Llanes M.D. Informed Consent Completed:yes CAD: No H & P completed: Yes PA/LAT: Completed CT: Completed MRI: N/A LE US: N/A Cath: Yes - reviewed: Yes Echo:Completed EKG: Completed EF %: 71 PI's: N/A Carotid: N/A Mapping: N/A Dental: Completed PFT's: Completed CBC, Coags, BMP, Mg, Phos Basename 11/19/13 0633 11/18/13 0506 11/17/13 0736 WBC 6.48 5.80 4.42 HB 8.7* 8.1* 7.7* HCT 26.8* 24.2* 23.6* PLT 323 226 169 INR -- -- -- APTT -- -- -- NA 140 138 138 K 4.4 4.2 3.8 CHLOR 102 103 101 CO2 27 25 27 BUN 9* 11 13 CREAT 0.90 0.84 0.83 GLUC 99 108* 102* CA 9.2 9.1 8.5 MG -- -- -- P -- -- -- UA: p HCG:N/A ABO/ABO Confirmed: Yes Blood ordered: Yes 2 SA Swab: Yes - results: positive - treated. Last Dose of Anticoagulation: asa 162 sub q heparin Op Note: yes Pacemaker Check: N/A Consults: none DM: No Cardiac Surgical prep: N/A SIGNATURE: Jackie Jc CNP CHECKED BY: arron DATE of SERVICE: 11/01/2013 TIME of SERVICE: 2:59 PM mwa 11/19 Mitral valve regurgitation 11/01/201311/16 Overview: s/p MVr 01/201311/13/2013:MV repair with 31 mm De Leon band and valvuloplasty Anticoagulation adequate 020 documented as of this encounter (statuses as of 08/13/2022) [facility]04-04-2016 History of Past illness Narrative* Problem Noted Date Resolved Date Lightheadedness 08/05/2015 04/29/2020 Overview: Differential includes arrhythmia (including block or atrial tach) versus volume- down versus valvular issue such as pannus growing into [facility] mitral valve. Unlikely that his septum has re-hypertrophied. It's unusual that he is having symptoms during my interview while he is in sinus rhythm and with a normal blood pressure, and normal orthostatics. -favor arrhythmia issues versus volume issues (although orthostatic vital signs negative) versus psych -exam suggests a well functioning valve prosthesis -no syncopal events Plan -telemetry -echocardiogram in AM, assess for valve function/thrombus/pannus -consider exercise testing to assess BP and HR response if echo is unrevealing -encouraged po intake -consider loop recorder prior to discharge Stricture, urethra 12/10/2014 04/29/2020 Subtherapeutic international normalized ratio (I NR) 12/08/2013 04/29/2020 Overview: GOAL 2.5-3.5 for mechanical mitral valve Home dose 12.5 but made his INR GO to >4.5 AND WAS TOLD TO STOP COUMADIN FOR 2 DAYS AND 12/08 INR 1.9 RESUME TODAY ON 10 MG 12/09 INR 1.7 heparin drip per CTS at rate 500cc/r goal PTT 50-60 coumadin 12.5 mg 12/10 INR 2 ok to discharge per CTS Will discharge on 12.5 mg dose alternating with 10 mg Abdominal pain 12/08/2013 04/29/2020 Overview: DISSECTION, appendicitis, obstruction and pancreatitis ruled out Likely gastroenteritis Resolving LFTS trending down tolerating regular diet Elevated LFTs 12/08/2013 04/29/2020 Overview: Up from yesterday ++AST, ALT,ALP , MAGNUS normal Goal bladder normal on CT abdomen. Likely reactive Improving Trend off tylenol Epistaxis 11/27/2013 04/29/2020 Overview: Nosebleed x 2 11/27, no further episode today. Discharge on ocean spray tid and afrin prn. If continues to be problematic, discussed ENT for eval. Anemia 11/21/2013 04/29/2020 Overview: H/H 8.1/25.3, stable. Received 1u PRBC 11/23, 2U PRBC 11/22. Discharge on iron. Hypovolemia 11/20/2013 11/22/2013 Overview: 11/20/2013 Low MAP and filling pressures. Replete volume. Pericardial effusion 11/17/2013 11/22/2013 Overview: History: S/p MVr, myectomy Assessment: small to moderate right pericardial effusion Plan: Having re-op on Wednesday11.20.2013. SUMMARY 11/16/2013 04/29/2020 Overview: Indication for admission/procedure: MR LVEF: Normal RVF: Normal PMH/PSH: MS, HTN, HPL, Sleep apnea (CPAP), Urethral stricture, Depression, 01/2013, LAAL, MVr Surgeries: 11/13/2013 Myectomy (5gm), MVr with de leon band and valvuloplasty 11/20/2013 Redo Sternotomy MVR (27/29mm OnX) 12/08/13 readmitted for abdominal pain from OSH A/P -Abdominal pain: likely gastroenteritis, resolved -subtherapeutic INR, report that INR WAS 4.5 ans was told to hold coumadin till today then decrease dose from 12.5 to 10 mg, heparin drip for INR <1.8 (TODAY 1.7) coumadin 12.5 mg LFTS improving D/C in am per CTS if INR >2 Atelectasis 11/15/2013 04/29/2020 Overview: On RA, -3.4kg, CXR w/minimal posterior effusions and mild opacity that is most suggestive of atelectasis. Continue PEP/OOB/C&DB. Fluid overload 11/15/2013 11/16/2013 Overview: Pre-op wt 120.7 kg, current wt 129.6. Pt received IVF resuscitation in ICU, upon assessment generalized edema. Will start gentle diuresis with Lasix. Monitor I&O and daily weights. Urethral stricture 11/15/2013 11/16/2013 Overview: H/O of urethral stricture. Camacho D/C this am. Monitor Urine output. Cardiac insufficiency 11/13/2013 11/14/2013 Overview: RV sluggish post CPB. Improved with Epi. No pa cath in place. 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 Supplement as needed. Hypotension 11/13/2013 11/16/2013 Overview: Filling pressures remain low. Norepi for goal MAP > 65. Cont fluid resuscitation as needed. 11/15/2013 much improved BP after fluid resuscitation in ICU. Will start gentle diuresing and low dose BB and monitor. Pre-op testing 11/01/2013 11/16/2013 Overview: Images from the original note were not included. [facility] Surgeon: Fernando Llanes M.D. Informed Consent Completed:yes CAD: No H & P completed: Yes PA/LAT: Completed CT: Completed MRI: N/A LE US: N/A Cath: Yes - reviewed: Yes Echo:Completed EKG: Completed EF %: 71 PI's: N/A Carotid: N/A Mapping: N/A Dental: Completed PFT's: Completed CBC, Coags, BMP, Mg, Phos Basename 11/19/13 0633 11/18/13 0506 11/17/13 0736 WBC 6.48 5.80 4.42 HB 8.7* 8.1* 7.7* HCT 26.8* 24.2* 23.6* PLT 323 226 169 INR -- -- -- APTT -- -- -- NA 140 138 138 K 4.4 4.2 3.8 CHLOR 102 103 101 CO2 27 25 27 BUN 9* 11 13 CREAT 0.90 0.84 0.83 GLUC 99 108* 102* CA 9.2 9.1 8.5 MG -- -- -- P -- -- -- UA: p HCG:N/A ABO/ABO Confirmed: Yes Blood ordered: Yes 2 SA Swab: Yes - results: positive - treated. Last Dose of Anticoagulation: asa 162 sub q heparin Op Note: yes Pacemaker Check: N/A Consults: none DM: No Cardiac Surgical prep: N/A SIGNATURE: Jackie Jc CNP CHECKED BY: arron DATE of SERVICE: 11/01/2013 TIME of SERVICE: 2:59 PM mwa 11/19 Mitral valve regurgitation 11/01/201311/16 Overview: s/p MVr 01/201311/13/2013:MV repair with 31 mm De Leon band and valvuloplasty Anticoagulation adequate 020 documented as of this encounter (statuses as of 08/14/2022) [facility]04-[facility]2016 History of Past illness Narrative* Problem Noted Date Resolved Date Lightheadedness 08/05/2015 04/29/2020 Overview: Differential includes arrhythmia (including block or atrial tach) versus volume- down versus valvular issue such as pannus growing into [facility] mitral valve. Unlikely that his septum has re-hypertrophied. It's unusual that he is having symptoms during my interview while he is in sinus rhythm and with a normal blood pressure, and normal orthostatics. -favor arrhythmia issues versus volume issues (although orthostatic vital signs negative) versus psych -exam suggests a well functioning valve prosthesis -no syncopal events Plan -telemetry -echocardiogram in AM, assess for valve function/thrombus/pannus -consider exercise testing to assess BP and HR response if echo is unrevealing -encouraged po intake -consider loop recorder prior to discharge Stricture, urethra 12/10/2014 04/29/2020 Subtherapeutic international normalized ratio (I NR) 12/08/2013 04/29/2020 Overview: GOAL 2.5-3.5 for mechanical mitral valve Home dose 12.5 but made his INR GO to >4.5 AND WAS TOLD TO STOP COUMADIN FOR 2 DAYS AND 12/08 INR 1.9 RESUME TODAY ON 10 MG 12/09 INR 1.7 heparin drip per CTS at rate 500cc/r goal PTT 50-60 coumadin 12.5 mg 12/10 INR 2 ok to discharge per CTS Will discharge on 12.5 mg dose alternating with 10 mg Abdominal pain 12/08/2013 04/29/2020 Overview: DISSECTION, appendicitis, obstruction and pancreatitis ruled out Likely gastroenteritis Resolving LFTS trending down tolerating regular diet Elevated LFTs 12/08/2013 04/29/2020 Overview: Up from yesterday ++AST, ALT,ALP , MAGNUS normal Goal bladder normal on CT abdomen. Likely reactive Improving Trend off tylenol Epistaxis 11/27/2013 04/29/2020 Overview: Nosebleed x 2 11/27, no further episode today. Discharge on ocean spray tid and afrin prn. If continues to be problematic, discussed ENT for eval. Anemia 11/21/2013 04/29/2020 Overview: H/H 8.1/25.3, stable. Received 1u PRBC 11/23, 2U PRBC 11/22. Discharge on iron. Hypovolemia 11/20/2013 11/22/2013 Overview: 11/20/2013 Low MAP and filling pressures. Replete volume. Pericardial effusion 11/17/2013 11/22/2013 Overview: History: S/p MVr, myectomy Assessment: small to moderate right pericardial effusion Plan: Having re-op on Wednesday11.20.2013. SUMMARY 11/16/2013 04/29/2020 Overview: Indication for admission/procedure: MR LVEF: Normal RVF: Normal PMH/PSH: MS, HTN, HPL, Sleep apnea (CPAP), Urethral stricture, Depression, 01/2013, LAAL, MVr Surgeries: 11/13/2013 Myectomy (5gm), MVr with de leon band and valvuloplasty 11/20/2013 Redo Sternotomy MVR (27/29mm OnX) 12/08/13 readmitted for abdominal pain from OSH A/P -Abdominal pain: likely gastroenteritis, resolved -subtherapeutic INR, report that INR WAS 4.5 ans was told to hold coumadin till today then decrease dose from 12.5 to 10 mg, heparin drip for INR <1.8 (TODAY 1.7) coumadin 12.5 mg LFTS improving D/C in am per CTS if INR >2 Atelectasis 11/15/2013 04/29/2020 Overview: On RA, -3.4kg, CXR w/minimal posterior effusions and mild opacity that is most suggestive of atelectasis. Continue PEP/OOB/C&DB. Fluid overload 11/15/2013 11/16/2013 Overview: Pre-op wt 120.7 kg, current wt 129.6. Pt received IVF resuscitation in ICU, upon assessment generalized edema. Will start gentle diuresis with Lasix. Monitor I&O and daily weights. Urethral stricture 11/15/2013 11/16/2013 Overview: H/O of urethral stricture. Camacho D/C this am. Monitor Urine output. Cardiac insufficiency 11/13/2013 11/14/2013 Overview: RV sluggish post CPB. Improved with Epi. No pa cath in place. 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 Supplement as needed. Hypotension 11/13/2013 11/16/2013 Overview: Filling pressures remain low. Norepi for goal MAP > 65. Cont fluid resuscitation as needed. 11/15/2013 much improved BP after fluid resuscitation in ICU. Will start gentle diuresing and low dose BB and monitor. Pre-op testing 11/01/2013 11/16/2013 Overview: Images from the original note were not included. [facility] Surgeon: Fernando Llanes M.D. Informed Consent Completed:yes CAD: No H & P completed: Yes PA/LAT: Completed CT: Completed MRI: N/A LE US: N/A Cath: Yes - reviewed: Yes Echo:Completed EKG: Completed EF %: 71 PI's: N/A Carotid: N/A Mapping: N/A Dental: Completed PFT's: Completed CBC, Coags, BMP, Mg, Phos Basename 11/19/13 0633 11/18/13 0506 11/17/13 0736 WBC 6.48 5.80 4.42 HB 8.7* 8.1* 7.7* HCT 26.8* 24.2* 23.6* PLT 323 226 169 INR -- -- -- APTT -- -- -- NA 140 138 138 K 4.4 4.2 3.8 CHLOR 102 103 101 CO2 27 25 27 BUN 9* 11 13 CREAT 0.90 0.84 0.83 GLUC 99 108* 102* CA 9.2 9.1 8.5 MG -- -- -- P -- -- -- UA: p HCG:N/A ABO/ABO Confirmed: Yes Blood ordered: Yes 2 SA Swab: Yes - results: positive - treated. Last Dose of Anticoagulation: asa 162 sub q heparin Op Note: yes Pacemaker Check: N/A Consults: none DM: No Cardiac Surgical prep: N/A SIGNATURE: Jackie Jc CNP CHECKED BY: arron DATE of SERVICE: 11/01/2013 TIME of SERVICE: 2:59 PM mwa 11/19 Mitral valve regurgitation 11/01/201311/16 Overview: s/p MVr 01/201311/13/2013:MV repair with 31 mm De Leon band and valvuloplasty Anticoagulation adequate 020 documented as of this encounter (statuses as of 08/15/2022) [facility]04[facility] History of Past illness Narrative* Problem Noted Date Resolved Date Lightheadedness 08/05/2015 04/29/2020 Overview: Differential includes arrhythmia (including block or atrial tach) versus volume- down versus valvular issue such as pannus growing into [facility] mitral valve. Unlikely that his septum has re-hypertrophied. It's unusual that he is having symptoms during my interview while he is in sinus rhythm and with a normal blood pressure, and normal orthostatics. -favor arrhythmia issues versus volume issues (although orthostatic vital signs negative) versus psych -exam suggests a well functioning valve prosthesis -no syncopal events Plan -telemetry -echocardiogram in AM, assess for valve function/thrombus/pannus -consider exercise testing to assess BP and HR response if echo is unrevealing -encouraged po intake -consider loop recorder prior to discharge Stricture, urethra 12/10/2014 04/29/2020 Subtherapeutic international normalized ratio (I NR) 12/08/2013 04/29/2020 Overview: GOAL 2.5-3.5 for mechanical mitral valve Home dose 12.5 but made his INR GO to >4.5 AND WAS TOLD TO STOP COUMADIN FOR 2 DAYS AND 12/08 INR 1.9 RESUME TODAY ON 10 MG 12/09 INR 1.7 heparin drip per CTS at rate 500cc/r goal PTT 50-60 coumadin 12.5 mg 12/10 INR 2 ok to discharge per CTS Will discharge on 12.5 mg dose alternating with 10 mg Abdominal pain 12/08/2013 04/29/2020 Overview: DISSECTION, appendicitis, obstruction and pancreatitis ruled out Likely gastroenteritis Resolving LFTS trending down tolerating regular diet Elevated LFTs 12/08/2013 04/29/2020 Overview: Up from yesterday ++AST, ALT,ALP , MAGNUS normal Goal bladder normal on CT abdomen. Likely reactive Improving Trend off tylenol Epistaxis 11/27/2013 04/29/2020 Overview: Nosebleed x 2 11/27, no further episode today. Discharge on ocean spray tid and afrin prn. If continues to be problematic, discussed ENT for eval. Anemia 11/21/2013 04/29/2020 Overview: H/H 8.1/25.3, stable. Received 1u PRBC 11/23, 2U PRBC 11/22. Discharge on iron. Hypovolemia 11/20/2013 11/22/2013 Overview: 11/20/2013 Low MAP and filling pressures. Replete volume. Pericardial effusion 11/17/2013 11/22/2013 Overview: History: S/p MVr, myectomy Assessment: small to moderate right pericardial effusion Plan: Having re-op on Wednesday11.20.2013. SUMMARY 11/16/2013 04/29/2020 Overview: Indication for admission/procedure: MR LVEF: Normal RVF: Normal PMH/PSH: MS, HTN, HPL, Sleep apnea (CPAP), Urethral stricture, Depression, 01/2013, LAAL, MVr Surgeries: 11/13/2013 Myectomy (5gm), MVr with de leon band and valvuloplasty 11/20/2013 Redo Sternotomy MVR (27/29mm OnX) 12/08/13 readmitted for abdominal pain from OSH A/P -Abdominal pain: likely gastroenteritis, resolved -subtherapeutic INR, report that INR WAS 4.5 ans was told to hold coumadin till today then decrease dose from 12.5 to 10 mg, heparin drip for INR <1.8 (TODAY 1.7) coumadin 12.5 mg LFTS improving D/C in am per CTS if INR >2 Atelectasis 11/15/2013 04/29/2020 Overview: On RA, -3.4kg, CXR w/minimal posterior effusions and mild opacity that is most suggestive of atelectasis. Continue PEP/OOB/C&DB. Fluid overload 11/15/2013 11/16/2013 Overview: Pre-op wt 120.7 kg, current wt 129.6. Pt received IVF resuscitation in ICU, upon assessment generalized edema. Will start gentle diuresis with Lasix. Monitor I&O and daily weights. Urethral stricture 11/15/2013 11/16/2013 Overview: H/O of urethral stricture. Camacho D/C this am. Monitor Urine output. Cardiac insufficiency 11/13/2013 11/14/2013 Overview: RV sluggish post CPB. Improved with Epi. No pa cath in place. 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 Supplement as needed. Hypotension 11/13/2013 11/16/2013 Overview: Filling pressures remain low. Norepi for goal MAP > 65. Cont fluid resuscitation as needed. 11/15/2013 much improved BP after fluid resuscitation in ICU. Will start gentle diuresing and low dose BB and monitor. Pre-op testing 11/01/2013 11/16/2013 Overview: Images from the original note were not included. [facility] Surgeon: Fernando Llanes M.D. Informed Consent Completed:yes CAD: No H & P completed: Yes PA/LAT: Completed CT: Completed MRI: N/A LE US: N/A Cath: Yes - reviewed: Yes Echo:Completed EKG: Completed EF %: 71 PI's: N/A Carotid: N/A Mapping: N/A Dental: Completed PFT's: Completed CBC, Coags, BMP, Mg, Phos Basename 11/19/13 0633 11/18/13 0506 11/17/13 0736 WBC 6.48 5.80 4.42 HB 8.7* 8.1* 7.7* HCT 26.8* 24.2* 23.6* PLT 323 226 169 INR -- -- -- APTT -- -- -- NA 140 138 138 K 4.4 4.2 3.8 CHLOR 102 103 101 CO2 27 25 27 BUN 9* 11 13 CREAT 0.90 0.84 0.83 GLUC 99 108* 102* CA 9.2 9.1 8.5 MG -- -- -- P -- -- -- UA: p HCG:N/A ABO/ABO Confirmed: Yes Blood ordered: Yes 2 SA Swab: Yes - results: positive - treated. Last Dose of Anticoagulation: asa 162 sub q heparin Op Note: yes Pacemaker Check: N/A Consults: none DM: No Cardiac Surgical prep: N/A SIGNATURE: Jackie Jc CNP CHECKED BY: arron DATE of SERVICE: 11/01/2013 TIME of SERVICE: 2:59 PM mwa 11/19 Mitral valve regurgitation 11/01/201311/16 Overview: s/p MVr 01/201311/13/2013:MV repair with 31 mm De Leon band and valvuloplasty Anticoagulation adequate 020 documented as of this encounter (statuses as of 08/19/2022) [facility] History of Past illness Narrative* Problem Noted Date Resolved Date Lightheadedness 08/05/2015 04/29/2020 Overview: Differential includes arrhythmia (including block or atrial tach) versus volume- down versus valvular issue such as pannus growing into [facility] mitral valve. Unlikely that his septum has re-hypertrophied. It's unusual that he is having symptoms during my interview while he is in sinus rhythm and with a normal blood pressure, and normal orthostatics. -favor arrhythmia issues versus volume issues (although orthostatic vital signs negative) versus psych -exam suggests a well functioning valve prosthesis -no syncopal events Plan -telemetry -echocardiogram in AM, assess for valve function/thrombus/pannus -consider exercise testing to assess BP and HR response if echo is unrevealing -encouraged po intake -consider loop recorder prior to discharge Stricture, urethra 12/10/2014 04/29/2020 Subtherapeutic international normalized ratio (I NR) 12/08/2013 04/29/2020 Overview: GOAL 2.5-3.5 for mechanical mitral valve Home dose 12.5 but made his INR GO to >4.5 AND WAS TOLD TO STOP COUMADIN FOR 2 DAYS AND 12/08 INR 1.9 RESUME TODAY ON 10 MG 12/09 INR 1.7 heparin drip per CTS at rate 500cc/r goal PTT 50-60 coumadin 12.5 mg /10 INR 2 ok to discharge per CTS Will discharge on 12.5 mg dose alternating with 10 mg Abdominal pain 12/08/2013 04/29/2020 Overview: DISSECTION, appendicitis, obstruction and pancreatitis ruled out Likely gastroenteritis Resolving LFTS trending down tolerating regular diet Elevated LFTs 12/08/2013 04/29/2020 Overview: Up from yesterday ++AST, ALT,ALP , MAGNUS normal Goal bladder normal on CT abdomen. Likely reactive Improving Trend off tylenol Epistaxis 11/27/2013 04/29/2020 Overview: Nosebleed x 2 11/27, no further episode today. Discharge on ocean spray tid and afrin prn. If continues to be problematic, discussed ENT for eval. Anemia 11/21/2013 04/29/2020 Overview: H/H 8.1/25.3, stable. Received 1u PRBC 11/23, 2U PRBC 11/22. Discharge on iron. Hypovolemia 11/20/2013 11/22/2013 Overview: 11/20/2013 Low MAP and filling pressures. Replete volume. Pericardial effusion 11/17/2013 11/22/2013 Overview: History: S/p MVr, myectomy Assessment: small to moderate right pericardial effusion Plan: Having re-op on Wednesday11.20.2013. SUMMARY 11/16/2013 04/29/2020 Overview: Indication for admission/procedure: MR LVEF: Normal RVF: Normal PMH/PSH: MS, HTN, HPL, Sleep apnea (CPAP), Urethral stricture, Depression, 01/2013, LAAL, MVr Surgeries: 11/13/2013 Myectomy (5gm), MVr with de leon band and valvuloplasty 11/20/2013 Redo Sternotomy MVR (27/29mm OnX) 12/08/13 readmitted for abdominal pain from OSH A/P -Abdominal pain: likely gastroenteritis, resolved -subtherapeutic INR, report that INR WAS 4.5 ans was told to hold coumadin till today then decrease dose from 12.5 to 10 mg, heparin drip for INR <1.8 (TODAY 1.7) coumadin 12.5 mg LFTS improving D/C in am per CTS if INR >2 Atelectasis 11/15/2013 04/29/2020 Overview: On RA, -3.4kg, CXR w/minimal posterior effusions and mild opacity that is most suggestive of atelectasis. Continue PEP/OOB/C&DB. Fluid overload 11/15/2013 11/16/2013 Overview: Pre-op wt 120.7 kg, current wt 129.6. Pt received IVF resuscitation in ICU, upon assessment generalized edema. Will start gentle diuresis with Lasix. Monitor I&O and daily weights. Urethral stricture 11/15/2013 11/16/2013 Overview: H/O of urethral stricture. Camacho D/C this am. Monitor Urine output. Cardiac insufficiency 11/13/2013 11/14/2013 Overview: RV sluggish post CPB. Improved with Epi. No pa cath in place. 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 Supplement as needed. Hypotension 11/13/2013 11/16/2013 Overview: Filling pressures remain low. Norepi for goal MAP > 65. Cont fluid resuscitation as needed. 11/15/2013 much improved BP after fluid resuscitation in ICU. Will start gentle diuresing and low dose BB and monitor. Pre-op testing 11/01/2013 11/16/2013 Overview: Images from the original note were not included. [facility] Surgeon: Fernando Llanes M.D. Informed Consent Completed:yes CAD: No H & P completed: Yes PA/LAT: Completed CT: Completed MRI: N/A LE US: N/A Cath: Yes - reviewed: Yes Echo:Completed EKG: Completed EF %: 71 PI's: N/A Carotid: N/A Mapping: N/A Dental: Completed PFT's: Completed CBC, Coags, BMP, Mg, Phos Basename 11/19/13 0633 11/18/13 0506 11/17/13 0736 WBC 6.48 5.80 4.42 HB 8.7* 8.1* 7.7* HCT 26.8* 24.2* 23.6* PLT 323 226 169 INR -- -- -- APTT -- -- -- NA 140 138 138 K 4.4 4.2 3.8 CHLOR 102 103 101 CO2 27 25 27 BUN 9* 11 13 CREAT 0.90 0.84 0.83 GLUC 99 108* 102* CA 9.2 9.1 8.5 MG -- -- -- P -- -- -- UA: p HCG:N/A ABO/ABO Confirmed: Yes Blood ordered: Yes 2 SA Swab: Yes - results: positive - treated. Last Dose of Anticoagulation: asa 162 sub q heparin Op Note: yes Pacemaker Check: N/A Consults: none DM: No Cardiac Surgical prep: N/A SIGNATURE: Jackie Jc CNP CHECKED BY: arron DATE of SERVICE: 11/01/2013 TIME of SERVICE: 2:59 PM mwa 11/19 Mitral valve regurgitation 11/01/201311/16 Overview: s/p MVr 01/201311/13/2013:MV repair with 31 mm De Leon band and valvuloplasty Anticoagulation adequate 020 documented as of this encounter (statuses as of 09/09/2022) [facility]04-04-2016 History of Past illness Narrative* Problem Noted Date Resolved Date Lightheadedness 08/05/2015 04/29/2020 Overview: Differential includes arrhythmia (including block or atrial tach) versus volume- down versus valvular issue such as pannus growing into [facility] mitral valve. Unlikely that his septum has re-hypertrophied. It's unusual that he is having symptoms during my interview while he is in sinus rhythm and with a normal blood pressure, and normal orthostatics. -favor arrhythmia issues versus volume issues (although orthostatic vital signs negative) versus psych -exam suggests a well functioning valve prosthesis -no syncopal events Plan -telemetry -echocardiogram in AM, assess for valve function/thrombus/pannus -consider exercise testing to assess BP and HR response if echo is unrevealing -encouraged po intake -consider loop recorder prior to discharge Stricture, urethra 12/10/2014 04/29/2020 Subtherapeutic international normalized ratio (I NR) 12/08/2013 04/29/2020 Overview: GOAL 2.5-3.5 for mechanical mitral valve Home dose 12.5 but made his INR GO to >4.5 AND WAS TOLD TO STOP COUMADIN FOR 2 DAYS AND 12/08 INR 1.9 RESUME TODAY ON 10 MG 8/9 INR 1.7 heparin drip per CTS at rate 500cc/r goal PTT 50-60 coumadin 12.5 mg / INR 2 ok to discharge per CTS Will discharge on 12.5 mg dose alternating with 10 mg Abdominal pain 12/08/2013 04/29/2020 Overview: DISSECTION, appendicitis, obstruction and pancreatitis ruled out Likely gastroenteritis Resolving LFTS trending down tolerating regular diet Elevated LFTs 12/08/2013 04/29/2020 Overview: Up from yesterday ++AST, ALT,ALP , MAGNUS normal Goal bladder normal on CT abdomen. Likely reactive Improving Trend off tylenol Epistaxis 11/27/2013 04/29/2020 Overview: Nosebleed x 2 11/27, no further episode today. Discharge on ocean spray tid and afrin prn. If continues to be problematic, discussed ENT for eval. Anemia 11/21/2013 04/29/2020 Overview: H/H 8.1/25.3, stable. Received 1u PRBC 11/23, 2U PRBC 11/22. Discharge on iron. Hypovolemia 11/20/2013 11/22/2013 Overview: 11/20/2013 Low MAP and filling pressures. Replete volume. Pericardial effusion 11/17/2013 11/22/2013 Overview: History: S/p MVr, myectomy Assessment: small to moderate right pericardial effusion Plan: Having re-op on Wednesday11.20.2013. SUMMARY 11/16/2013 04/29/2020 Overview: Indication for admission/procedure: MR LVEF: Normal RVF: Normal PMH/PSH: MS, HTN, HPL, Sleep apnea (CPAP), Urethral stricture, Depression, 01/2013, LAAL, MVr Surgeries: 11/13/2013 Myectomy (5gm), MVr with de leon band and valvuloplasty 11/20/2013 Redo Sternotomy MVR (27/29mm OnX) 12/08/13 readmitted for abdominal pain from OSH A/P -Abdominal pain: likely gastroenteritis, resolved -subtherapeutic INR, report that INR WAS 4.5 ans was told to hold coumadin till today then decrease dose from 12.5 to 10 mg, heparin drip for INR <1.8 (TODAY 1.7) coumadin 12.5 mg LFTS improving D/C in am per CTS if INR >2 Atelectasis 11/15/2013 04/29/2020 Overview: On RA, -3.4kg, CXR w/minimal posterior effusions and mild opacity that is most suggestive of atelectasis. Continue PEP/OOB/C&DB. Fluid overload 11/15/2013 11/16/2013 Overview: Pre-op wt 120.7 kg, current wt 129.6. Pt received IVF resuscitation in ICU, upon assessment generalized edema. Will start gentle diuresis with Lasix. Monitor I&O and daily weights. Urethral stricture 11/15/2013 11/16/2013 Overview: H/O of urethral stricture. Camacho D/C this am. Monitor Urine output. Cardiac insufficiency 11/13/2013 11/14/2013 Overview: RV sluggish post CPB. Improved with Epi. No pa cath in place. 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 Supplement as needed. Hypotension 11/13/2013 11/16/2013 Overview: Filling pressures remain low. Norepi for goal MAP > 65. Cont fluid resuscitation as needed. 11/15/2013 much improved BP after fluid resuscitation in ICU. Will start gentle diuresing and low dose BB and monitor. Pre-op testing 11/01/2013 11/16/2013 Overview: Images from the original note were not included. [facility] Surgeon: Fernando Llanes M.D. Informed Consent Completed:yes CAD: No H & P completed: Yes PA/LAT: Completed CT: Completed MRI: N/A LE US: N/A Cath: Yes - reviewed: Yes Echo:Completed EKG: Completed EF %: 71 PI's: N/A Carotid: N/A Mapping: N/A Dental: Completed PFT's: Completed CBC, Coags, BMP, Mg, Phos Basename 11/19/13 0633 11/18/13 0506 11/17/13 0736 WBC 6.48 5.80 4.42 HB 8.7* 8.1* 7.7* HCT 26.8* 24.2* 23.6* PLT 323 226 169 INR -- -- -- APTT -- -- -- NA 140 138 138 K 4.4 4.2 3.8 CHLOR 102 103 101 CO2 27 25 27 BUN 9* 11 13 CREAT 0.90 0.84 0.83 GLUC 99 108* 102* CA 9.2 9.1 8.5 MG -- -- -- P -- -- -- UA: p HCG:N/A ABO/ABO Confirmed: Yes Blood ordered: Yes 2 SA Swab: Yes - results: positive - treated. Last Dose of Anticoagulation: asa 162 sub q heparin Op Note: yes Pacemaker Check: N/A Consults: none DM: No Cardiac Surgical prep: N/A SIGNATURE: Jackie Jc CNP CHECKED BY: arron DATE of SERVICE: 11/01/2013 TIME of SERVICE: 2:59 PM mwa 11/19 Mitral valve regurgitation 11/01/201311/16 Overview: s/p MVr 01/201311/13/2013:MV repair with 31 mm De Leon band and valvuloplasty Anticoagulation adequate 020 documented as of this encounter (statuses as of 10/19/2022) [facility]04-04-2016 History of Past illness Narrative* Problem Noted Date Diagnosed Date Resolved Date Lightheadedness 08/05/2015 04/29/2020 Overview: Differential includes arrhythmia (including block or atrial tach) versus volume- down versus valvular issue such as pannus growing into [facility] mitral valve. Unlikely that his septum has re-hypertrophied. It's unusual that he is having symptoms during my interview while he is in sinus rhythm and with a normal blood pressure, and normal orthostatics. -favor arrhythmia issues versus volume issues (although orthostatic vital signs negative) versus psych -exam suggests a well functioning valve prosthesis -no syncopal events Plan -telemetry -echocardiogram in AM, assess for valve function/thrombus/pannus -consider exercise testing to assess BP and HR response if echo is unrevealing -encouraged po intake -consider loop recorder prior to discharge Stricture, urethra 12/10/2014 0 Subtherapeutic international normalized ratio (INR) 12/08/2013 04/29/2020 Overview: GOAL 2.5-3.5 for mechanical mitral valve Home dose 12.5 but made his INR GO to >4.5 AND WAS TOLD TO STOP COUMADIN FOR 2 DAYS AND 12/08 INR 1.9 RESUME TODAY ON 10 MG 12/09 INR 1.7 heparin drip per CTS at rate 500cc/r goal PTT 50-60 coumadin 12.5 mg 12/10 INR 2 ok to discharge per CTS Will discharge on 12.5 mg dose alternating with 10 mg Abdominal pain 12/08/2013 04/29/2020 Overview: DISSECTION, appendicitis, obstruction and pancreatitis ruled out Likely gastroenteritis Resolving LFTS trending down tolerating regular diet Elevated LFTs 12/08/2013 04/29/2020 Overview: Up from yesterday ++AST, ALT,ALP , MAGNUS normal Goal bladder normal on CT abdomen. Likely reactive Improving Trend off tylenol Epistaxis 11/27/2013 04/29/2020 Overview: Nosebleed x 2 11/27, no further episode today. Discharge on ocean spray tid and afrin prn. If continues to be problematic, discussed ENT for eval. Anemia 11/21/2013 04/29/2020 Overview: H/H 8.1/25.3, stable. Received 1u PRBC 11/23, 2U PRBC 11/22. Discharge on iron. Hypovolemia 11/20/2013 11/22/2013 Overview: 11/20/2013 Low MAP and filling pressures. Replete volume. Pericardial effusion 11/17/2013 014 Overview: History: S/p MVr, myectomy Assessment: small to moderate right pericardial effusion Plan: Having re-op on Wednesday11.20.2013. SUMMARY 11/16/2013 04/29/2020 Overview: Indication for admission/procedure: MR LVEF: Normal RVF: Normal PMH/PSH: MS, HTN, HPL, Sleep apnea (CPAP), Urethral stricture, Depression, 01/2013, LAAL, MVr Surgeries: 11/13/2013 Myectomy (5gm), MVr with de leon band and valvuloplasty 11/20/2013 Redo Sternotomy MVR (27/29mm OnX) 12/08/13 readmitted for abdominal pain from OSH A/P -Abdominal pain: likely gastroenteritis, resolved -subtherapeutic INR, report that INR WAS 4.5 ans was told to hold coumadin till today then decrease dose from 12.5 to 10 mg, heparin drip for INR <1.8 (TODAY 1.7) coumadin 12.5 mg LFTS improving D/C in am per CTS if INR >2 Atelectasis 11/15/2013 04/29/2020 Overview: On RA, -3.4kg, CXR w/minimal posterior effusions and mild opacity that is most suggestive of atelectasis. Continue PEP/OOB/C&DB. Fluid overload 11/15/2013 11/16/2013 Overview: Pre-op wt 120.7 kg, current wt 129.6. Pt received IVF resuscitation in ICU, upon assessment generalized edema. Will start gentle diuresis with Lasix. Monitor I&O and daily weights. Urethral stricture 11/15/2013 4 Overview: H/O of urethral stricture. Camacho D/C this am. Monitor Urine output. Cardiac insufficiency 11/13/20132013 Overview: RV sluggish post CPB. Improved with Epi. No pa cath in place. Will monitor hemodynamics Stress hyperglycemia 11/13/2013 014 Overview: Accuchecks and SSI Postoperative pain 11/13/2013 4 Overview: 11/21/2013 Pain controlled with Fenanyl BUILDING PERFORMANCE SPECIALIST, Lidoderm, Toradol, and Percocet. Supplement as needed. Hypotension 11/13/2013 11/16/2013 Overview: Filling pressures remain low. Norepi for goal MAP > 65. Cont fluid resuscitation as needed. 11/15/2013 much improved BP after fluid resuscitation in ICU. Will start gentle diuresing and low dose BB and monitor. Pre-op testing 11/01/2013 11/16/2013 Overview: Images from the original note were not included. [facility] Surgeon: Fernando Llanes M.D. Informed Consent Completed:yes CAD: No H & P completed: Yes PA/LAT: Completed CT: Completed MRI: N/A LE US: N/A Cath: Yes - reviewed: Yes Echo:Completed EKG: Completed EF %: 71 PI's: N/A Carotid: N/A Mapping: N/A Dental: Completed PFT's: Completed CBC, Coags, BMP, Mg, Phos Basename 11/19/13 0633 11/18/13 0506 11/17/13 0736 WBC 6.48 5.80 4.42 HB 8.7* 8.1* 7.7* HCT 26.8* 24.2* 23.6* PLT 323 226 169 INR -- -- -- APTT -- -- -- NA 140 138 138 K 4.4 4.2 3.8 CHLOR 102 103 101 CO2 27 25 27 BUN 9* 11 13 CREAT 0.90 0.84 0.83 GLUC 99 108* 102* CA 9.2 9.1 8.5 MG -- -- -- P -- -- -- UA: p HCG:N/A ABO/ABO Confirmed: Yes Blood ordered: Yes 2 SA Swab: Yes - results: positive - treated. Last Dose of Anticoagulation: asa 162 sub q heparin Op Note: yes Pacemaker Check: N/A Consults: none DM: No Cardiac Surgical prep: N/A SIGNATURE: Jackie Jc CNP CHECKED BY: arron DATE of SERVICE: 11/01/2013 TIME of SERVICE: 2:59 PM mwa 11/19 Mitral valve regurgitation 11/01/2013 0 11/16/2013 Overview: s/p MVr 01/201311/13/2013:MV repair with 31 mm De Leon band and valvuloplasty Anticoagulation adequate documented as of this encounter (statuses as of 11/23/2022) [facility]04-[facility]-2016 History of Past illness Narrative* Problem Noted Date Diagnosed Date Resolved Date Lightheadedness 08/05/2015 04/29/2020 Overview: Differential includes arrhythmia (including block or atrial tach) versus volume- down versus valvular issue such as pannus growing into [facility] mitral valve. Unlikely that his septum has re-hypertrophied. It's unusual that he is having symptoms during my interview while he is in sinus rhythm and with a normal blood pressure, and normal orthostatics. -favor arrhythmia issues versus volume issues (although orthostatic vital signs negative) versus psych -exam suggests a well functioning valve prosthesis -no syncopal events Plan -telemetry -echocardiogram in AM, assess for valve function/thrombus/pannus -consider exercise testing to assess BP and HR response if echo is unrevealing -encouraged po intake -consider loop recorder prior to discharge Stricture, urethra 12/10/2014 0 Subtherapeutic international normalized ratio (INR) 12/08/2013 04/29/2020 Overview: GOAL 2.5-3.5 for mechanical mitral valve Home dose 12.5 but made his INR GO to >4.5 AND WAS TOLD TO STOP COUMADIN FOR 2 DAYS AND 12/08 INR 1.9 RESUME TODAY ON 10 MG 8/9 INR 1.7 heparin drip per CTS at rate 500cc/r goal PTT 50-60 coumadin 12.5 mg 12/10 INR 2 ok to discharge per CTS Will discharge on 12.5 mg dose alternating with 10 mg Abdominal pain 12/08/2013 04/29/2020 Overview: DISSECTION, appendicitis, obstruction and pancreatitis ruled out Likely gastroenteritis Resolving LFTS trending down tolerating regular diet Elevated LFTs 12/08/2013 04/29/2020 Overview: Up from yesterday ++AST, ALT,ALP , MAGNUS normal Goal bladder normal on CT abdomen. Likely reactive Improving Trend off tylenol Epistaxis 11/27/2013 04/29/2020 Overview: Nosebleed x 2 11/27, no further episode today. Discharge on ocean spray tid and afrin prn. If continues to be problematic, discussed ENT for eval. Anemia 11/21/2013 04/29/2020 Overview: H/H 8.1/25.3, stable. Received 1u PRBC 11/23, 2U PRBC 11/22. Discharge on iron. Hypovolemia 11/20/2013 11/22/2013 Overview: 11/20/2013 Low MAP and filling pressures. Replete volume. Pericardial effusion 11/17/2013 014 Overview: History: S/p MVr, myectomy Assessment: small to moderate right pericardial effusion Plan: Having re-op on Wednesday11.20.2013. SUMMARY 11/16/2013 04/29/2020 Overview: Indication for admission/procedure: MR LVEF: Normal RVF: Normal PMH/PSH: MS, HTN, HPL, Sleep apnea (CPAP), Urethral stricture, Depression, 01/2013, LAAL, MVr Surgeries: 11/13/2013 Myectomy (5gm), MVr with de leon band and valvuloplasty 11/20/2013 Redo Sternotomy MVR (27/29mm OnX) 12/08/13 readmitted for abdominal pain from OSH A/P -Abdominal pain: likely gastroenteritis, resolved -subtherapeutic INR, report that INR WAS 4.5 ans was told to hold coumadin till today then decrease dose from 12.5 to 10 mg, heparin drip for INR <1.8 (TODAY 1.7) coumadin 12.5 mg LFTS improving D/C in am per CTS if INR >2 Atelectasis 11/15/2013 04/29/2020 Overview: On RA, -3.4kg, CXR w/minimal posterior effusions and mild opacity that is most suggestive of atelectasis. Continue PEP/OOB/C&DB. Fluid overload 11/15/2013 11/16/2013 Overview: Pre-op wt 120.7 kg, current wt 129.6. Pt received IVF resuscitation in ICU, upon assessment generalized edema. Will start gentle diuresis with Lasix. Monitor I&O and daily weights. Urethral stricture 11/15/2013 4 Overview: H/O of urethral stricture. Camacho D/C this am. Monitor Urine output. Cardiac insufficiency 11/13/20132013 Overview: RV sluggish post CPB. Improved with Epi. No pa cath in place. Will monitor hemodynamics Stress hyperglycemia 11/13/2013 014 Overview: Accuchecks and SSI Postoperative pain 11/13/2013 4 Overview: 11/21/2013 Pain controlled with Fenanyl BUILDING PERFORMANCE SPECIALIST, Lidoderm, Toradol, and Percocet. Supplement as needed. Hypotension 11/13/2013 11/16/2013 Overview: Filling pressures remain low. Norepi for goal MAP > 65. Cont fluid resuscitation as needed. 11/15/2013 much improved BP after fluid resuscitation in ICU. Will start gentle diuresing and low dose BB and monitor. Pre-op testing 11/01/2013 11/16/2013 Overview: Images from the original note were not included. [facility] Surgeon: Fernando Llanes M.D. Informed Consent Completed:yes CAD: No H & P completed: Yes PA/LAT: Completed CT: Completed MRI: N/A LE US: N/A Cath: Yes - reviewed: Yes Echo:Completed EKG: Completed EF %: 71 PI's: N/A Carotid: N/A Mapping: N/A Dental: Completed PFT's: Completed CBC, Coags, BMP, Mg, Phos Basename 11/19/13 0633 11/18/13 0506 11/17/13 0736 WBC 6.48 5.80 4.42 HB 8.7* 8.1* 7.7* HCT 26.8* 24.2* 23.6* PLT 323 226 169 INR -- -- -- APTT -- -- -- NA 140 138 138 K 4.4 4.2 3.8 CHLOR 102 103 101 CO2 27 25 27 BUN 9* 11 13 CREAT 0.90 0.84 0.83 GLUC 99 108* 102* CA 9.2 9.1 8.5 MG -- -- -- P -- -- -- UA: p HCG:N/A ABO/ABO Confirmed: Yes Blood ordered: Yes 2 SA Swab: Yes - results: positive - treated. Last Dose of Anticoagulation: asa 162 sub q heparin Op Note: yes Pacemaker Check: N/A Consults: none DM: No Cardiac Surgical prep: N/A SIGNATURE: Jackie Jc CNP CHECKED BY: arron DATE of SERVICE: 11/01/2013 TIME of SERVICE: 2:59 PM mwa 11/19 Mitral valve regurgitation 11/01/2013 0 11/16/2013 Overview: s/p MVr 01/201311/13/2013:MV repair with 31 mm De Leon band and valvuloplasty Anticoagulation adequate documented as of this encounter (statuses as of 11/26/2022) [facility]04[facility] History of Past illness Narrative* Problem Noted Date Diagnosed Date Resolved Date Lightheadedness 08/05/2015 04/29/2020 Overview: Differential includes arrhythmia (including block or atrial tach) versus volume- down versus valvular issue such as pannus growing into [facility] mitral valve. Unlikely that his septum has re-hypertrophied. It's unusual that he is having symptoms during my interview while he is in sinus rhythm and with a normal blood pressure, and normal orthostatics. -favor arrhythmia issues versus volume issues (although orthostatic vital signs negative) versus psych -exam suggests a well functioning valve prosthesis -no syncopal events Plan -telemetry -echocardiogram in AM, assess for valve function/thrombus/pannus -consider exercise testing to assess BP and HR response if echo is unrevealing -encouraged po intake -consider loop recorder prior to discharge Stricture, urethra 12/10/2014 0 Subtherapeutic international normalized ratio (INR) 12/08/2013 04/29/2020 Overview: GOAL 2.5-3.5 for mechanical mitral valve Home dose 12.5 but made his INR GO to >4.5 AND WAS TOLD TO STOP COUMADIN FOR 2 DAYS AND 12/08 INR 1.9 RESUME TODAY ON 10 MG 12/09 INR 1.7 heparin drip per CTS at rate 500cc/r goal PTT 50-60 coumadin 12.5 mg 12/10 INR 2 ok to discharge per CTS Will discharge on 12.5 mg dose alternating with 10 mg Abdominal pain 12/08/2013 04/29/2020 Overview: DISSECTION, appendicitis, obstruction and pancreatitis ruled out Likely gastroenteritis Resolving LFTS trending down tolerating regular diet Elevated LFTs 12/08/2013 04/29/2020 Overview: Up from yesterday ++AST, ALT,ALP , MAGNUS normal Goal bladder normal on CT abdomen. Likely reactive Improving Trend off tylenol Epistaxis 11/27/2013 04/29/2020 Overview: Nosebleed x 2 11/27, no further episode today. Discharge on ocean spray tid and afrin prn. If continues to be problematic, discussed ENT for eval. Anemia 11/21/2013 04/29/2020 Overview: H/H 8.1/25.3, stable. Received 1u PRBC 11/23, 2U PRBC 11/22. Discharge on iron. Hypovolemia 11/20/2013 11/22/2013 Overview: 11/20/2013 Low MAP and filling pressures. Replete volume. Pericardial effusion 11/17/2013 014 Overview: History: S/p MVr, myectomy Assessment: small to moderate right pericardial effusion Plan: Having re-op on Wednesday11.20.2013. SUMMARY 11/16/2013 04/29/2020 Overview: Indication for admission/procedure: MR LVEF: Normal RVF: Normal PMH/PSH: MS, HTN, HPL, Sleep apnea (CPAP), Urethral stricture, Depression, 01/2013, LAAL, MVr Surgeries: 11/13/2013 Myectomy (5gm), MVr with de leon band and valvuloplasty 11/20/2013 Redo Sternotomy MVR (27/29mm OnX) 12/08/13 readmitted for abdominal pain from OSH A/P -Abdominal pain: likely gastroenteritis, resolved -subtherapeutic INR, report that INR WAS 4.5 ans was told to hold coumadin till today then decrease dose from 12.5 to 10 mg, heparin drip for INR <1.8 (TODAY 1.7) coumadin 12.5 mg LFTS improving D/C in am per CTS if INR >2 Atelectasis 11/15/2013 04/29/2020 Overview: On RA, -3.4kg, CXR w/minimal posterior effusions and mild opacity that is most suggestive of atelectasis. Continue PEP/OOB/C&DB. Fluid overload 11/15/2013 11/16/2013 Overview: Pre-op wt 120.7 kg, current wt 129.6. Pt received IVF resuscitation in ICU, upon assessment generalized edema. Will start gentle diuresis with Lasix. Monitor I&O and daily weights. Urethral stricture 11/15/2013 4 Overview: H/O of urethral stricture. Camacho D/C this am. Monitor Urine output. Cardiac insufficiency 11/13/20132013 Overview: RV sluggish post CPB. Improved with Epi. No pa cath in place. Will monitor hemodynamics Stress hyperglycemia 11/13/2013 014 Overview: Accuchecks and SSI Postoperative pain 11/13/2013 4 Overview: 11/21/2013 Pain controlled with Fenanyl BUILDING PERFORMANCE SPECIALIST, Lidoderm, Toradol, and Percocet. Supplement as needed. Hypotension 11/13/2013 11/16/2013 Overview: Filling pressures remain low. Norepi for goal MAP > 65. Cont fluid resuscitation as needed. 11/15/2013 much improved BP after fluid resuscitation in ICU. Will start gentle diuresing and low dose BB and monitor. Pre-op testing 11/01/2013 11/16/2013 Overview: Images from the original note were not included. [facility] PRE[facility] Surgeon: Fernando Llanes M.D. Informed Consent Completed:yes CAD: No H & P completed: Yes PA/LAT: Completed CT: Completed MRI: N/A LE US: N/A Cath: Yes - reviewed: Yes Echo:Completed EKG: Completed EF %: 71 PI's: N/A Carotid: N/A Mapping: N/A Dental: Completed PFT's: Completed CBC, Coags, BMP, Mg, Phos Basename 11/19/13 0633 11/18/13 0506 11/17/13 0736 WBC 6.48 5.80 4.42 HB 8.7* 8.1* 7.7* HCT 26.8* 24.2* 23.6* PLT 323 226 169 INR -- -- -- APTT -- -- -- NA 140 138 138 K 4.4 4.2 3.8 CHLOR 102 103 101 CO2 27 25 27 BUN 9* 11 13 CREAT 0.90 0.84 0.83 GLUC 99 108* 102* CA 9.2 9.1 8.5 MG -- -- -- P -- -- -- UA: p HCG:N/A ABO/ABO Confirmed: Yes Blood ordered: Yes 2 SA Swab: Yes - results: positive - treated. Last Dose of Anticoagulation: asa 162 sub q heparin Op Note: yes Pacemaker Check: N/A Consults: none DM: No Cardiac Surgical prep: N/A SIGNATURE: Jackie Jc CNP CHECKED BY: arron DATE of SERVICE: 11/01/2013 TIME of SERVICE: 2:59 PM mwa 11/19 Mitral valve regurgitation 11/01/2013 0 11/16/2013 Overview: s/p MVr 01/201311/13/2013:MV repair with 31 mm De Leon band and valvuloplasty Anticoagulation adequate documented as of this encounter (statuses as of 12/02/2022) [facility]04-[facility]-2016 History of Past illness Narrative* Problem Noted Date Diagnosed Date Resolved Date Lightheadedness 08/05/2015 04/29/2020 Overview: Differential includes arrhythmia (including block or atrial tach) versus volume- down versus valvular issue such as pannus growing into [facility] mitral valve. Unlikely that his septum has re-hypertrophied. It's unusual that he is having symptoms during my interview while he is in sinus rhythm and with a normal blood pressure, and normal orthostatics. -favor arrhythmia issues versus volume issues (although orthostatic vital signs negative) versus psych -exam suggests a well functioning valve prosthesis -no syncopal events Plan -telemetry -echocardiogram in AM, assess for valve function/thrombus/pannus -consider exercise testing to assess BP and HR response if echo is unrevealing -encouraged po intake -consider loop recorder prior to discharge Stricture, urethra 12/10/2014 0 Subtherapeutic international normalized ratio (INR) 12/08/2013 04/29/2020 Overview: GOAL 2.5-3.5 for mechanical mitral valve Home dose 12.5 but made his INR GO to >4.5 AND WAS TOLD TO STOP COUMADIN FOR 2 DAYS AND 12/08 INR 1.9 RESUME TODAY ON 10 MG 8/9 INR 1.7 heparin drip per CTS at rate 500cc/r goal PTT 50-60 coumadin 12.5 mg 12/10 INR 2 ok to discharge per CTS Will discharge on 12.5 mg dose alternating with 10 mg Abdominal pain 12/08/2013 04/29/2020 Overview: DISSECTION, appendicitis, obstruction and pancreatitis ruled out Likely gastroenteritis Resolving LFTS trending down tolerating regular diet Elevated LFTs 12/08/2013 04/29/2020 Overview: Up from yesterday ++AST, ALT,ALP , MAGNUS normal Goal bladder normal on CT abdomen. Likely reactive Improving Trend off tylenol Epistaxis 11/27/2013 04/29/2020 Overview: Nosebleed x 2 11/27, no further episode today. Discharge on ocean spray tid and afrin prn. If continues to be problematic, discussed ENT for eval. Anemia 11/21/2013 04/29/2020 Overview: H/H 8.1/25.3, stable. Received 1u PRBC 11/23, 2U PRBC 11/22. Discharge on iron. Hypovolemia 11/20/2013 11/22/2013 Overview: 11/20/2013 Low MAP and filling pressures. Replete volume. Pericardial effusion 11/17/2013 014 Overview: History: S/p MVr, myectomy Assessment: small to moderate right pericardial effusion Plan: Having re-op on Wednesday11.20.2013. SUMMARY 11/16/2013 04/29/2020 Overview: Indication for admission/procedure: MR LVEF: Normal RVF: Normal PMH/PSH: MS, HTN, HPL, Sleep apnea (CPAP), Urethral stricture, Depression, 01/2013, LAAL, MVr Surgeries: 11/13/2013 Myectomy (5gm), MVr with de leon band and valvuloplasty 11/20/2013 Redo Sternotomy MVR (27/29mm OnX) 12/08/13 readmitted for abdominal pain from OSH A/P -Abdominal pain: likely gastroenteritis, resolved -subtherapeutic INR, report that INR WAS 4.5 ans was told to hold coumadin till today then decrease dose from 12.5 to 10 mg, heparin drip for INR <1.8 (TODAY 1.7) coumadin 12.5 mg LFTS improving D/C in am per CTS if INR >2 Atelectasis 11/15/2013 04/29/2020 Overview: On RA, -3.4kg, CXR w/minimal posterior effusions and mild opacity that is most suggestive of atelectasis. Continue PEP/OOB/C&DB. Fluid overload 11/15/2013 11/16/2013 Overview: Pre-op wt 120.7 kg, current wt 129.6. Pt received IVF resuscitation in ICU, upon assessment generalized edema. Will start gentle diuresis with Lasix. Monitor I&O and daily weights. Urethral stricture 11/15/2013 4 Overview: H/O of urethral stricture. Camacho D/C this am. Monitor Urine output. Cardiac insufficiency 11/13/20132013 Overview: RV sluggish post CPB. Improved with Epi. No pa cath in place. Will monitor hemodynamics Stress hyperglycemia 11/13/2013 014 Overview: Accuchecks and SSI Postoperative pain 11/13/2013 4 Overview: 11/21/2013 Pain controlled with Fenanyl BUILDING PERFORMANCE SPECIALIST, Lidoderm, Toradol, and Percocet. Supplement as needed. Hypotension 11/13/2013 11/16/2013 Overview: Filling pressures remain low. Norepi for goal MAP > 65. Cont fluid resuscitation as needed. 11/15/2013 much improved BP after fluid resuscitation in ICU. Will start gentle diuresing and low dose BB and monitor. Pre-op testing 11/01/2013 11/16/2013 Overview: Images from the original note were not included. [facility] Surgeon: Fernando Llanes M.D. Informed Consent Completed:yes CAD: No H & P completed: Yes PA/LAT: Completed CT: Completed MRI: N/A LE US: N/A Cath: Yes - reviewed: Yes Echo:Completed EKG: Completed EF %: 71 PI's: N/A Carotid: N/A Mapping: N/A Dental: Completed PFT's: Completed CBC, Coags, BMP, Mg, Phos Basename 11/19/13 0633 11/18/13 0506 11/17/13 0736 WBC 6.48 5.80 4.42 HB 8.7* 8.1* 7.7* HCT 26.8* 24.2* 23.6* PLT 323 226 169 INR -- -- -- APTT -- -- -- NA 140 138 138 K 4.4 4.2 3.8 CHLOR 102 103 101 CO2 27 25 27 BUN 9* 11 13 CREAT 0.90 0.84 0.83 GLUC 99 108* 102* CA 9.2 9.1 8.5 MG -- -- -- P -- -- -- UA: p HCG:N/A ABO/ABO Confirmed: Yes Blood ordered: Yes 2 SA Swab: Yes - results: positive - treated. Last Dose of Anticoagulation: asa 162 sub q heparin Op Note: yes Pacemaker Check: N/A Consults: none DM: No Cardiac Surgical prep: N/A SIGNATURE: Jackie Jc CNP CHECKED BY: arron DATE of SERVICE: 11/01/2013 TIME of SERVICE: 2:59 PM mwa 11/19 Mitral valve regurgitation 11/01/2013 0 11/16/2013 Overview: s/p MVr 01/201311/13/2013:MV repair with 31 mm De Leon band and valvuloplasty documented as of this encounter (statuses as of 12/24/2022) [facility]04-[facility]2016 History of Past illness Narrative* Problem Noted Date Diagnosed Date Resolved Date Lightheadedness 08/05/2015 04/29/2020 Overview: Differential includes arrhythmia (including block or atrial tach) versus volume- down versus valvular issue such as pannus growing into [facility] mitral valve. Unlikely that his septum has re-hypertrophied. It's unusual that he is having symptoms during my interview while he is in sinus rhythm and with a normal blood pressure, and normal orthostatics. -favor arrhythmia issues versus volume issues (although orthostatic vital signs negative) versus psych -exam suggests a well functioning valve prosthesis -no syncopal events Plan -telemetry -echocardiogram in AM, assess for valve function/thrombus/pannus -consider exercise testing to assess BP and HR response if echo is unrevealing -encouraged po intake -consider loop recorder prior to discharge Stricture, urethra 12/10/2014 0 Subtherapeutic international normalized ratio (INR) 12/08/2013 04/29/2020 Overview: GOAL 2.5-3.5 for mechanical mitral valve Home dose 12.5 but made his INR GO to >4.5 AND WAS TOLD TO STOP COUMADIN FOR 2 DAYS AND 12/08 INR 1.9 RESUME TODAY ON 10 MG 12/09 INR 1.7 heparin drip per CTS at rate 500cc/r goal PTT 50-60 coumadin 12.5 mg 12/10 INR 2 ok to discharge per CTS Will discharge on 12.5 mg dose alternating with 10 mg Abdominal pain 12/08/2013 04/29/2020 Overview: DISSECTION, appendicitis, obstruction and pancreatitis ruled out Likely gastroenteritis Resolving LFTS trending down tolerating regular diet Elevated LFTs 12/08/2013 04/29/2020 Overview: Up from yesterday ++AST, ALT,ALP , MAGNUS normal Goal bladder normal on CT abdomen. Likely reactive Improving Trend off tylenol Epistaxis 11/27/2013 04/29/2020 Overview: Nosebleed x 2 11/27, no further episode today. Discharge on ocean spray tid and afrin prn. If continues to be problematic, discussed ENT for eval. Anemia 11/21/2013 04/29/2020 Overview: H/H 8.1/25.3, stable. Received 1u PRBC 11/23, 2U PRBC 11/22. Discharge on iron. Hypovolemia 11/20/2013 11/22/2013 Overview: 11/20/2013 Low MAP and filling pressures. Replete volume. Pericardial effusion 11/17/2013 014 Overview: History: S/p MVr, myectomy Assessment: small to moderate right pericardial effusion Plan: Having re-op on Wednesday11.20.2013. SUMMARY 11/16/2013 04/29/2020 Overview: Indication for admission/procedure: MR LVEF: Normal RVF: Normal PMH/PSH: MS, HTN, HPL, Sleep apnea (CPAP), Urethral stricture, Depression, 01/2013, LAAL, MVr Surgeries: 11/13/2013 Myectomy (5gm), MVr with de leon band and valvuloplasty 11/20/2013 Redo Sternotomy MVR (27/29mm OnX) 12/08/13 readmitted for abdominal pain from OSH A/P -Abdominal pain: likely gastroenteritis, resolved -subtherapeutic INR, report that INR WAS 4.5 ans was told to hold coumadin till today then decrease dose from 12.5 to 10 mg, heparin drip for INR <1.8 (TODAY 1.7) coumadin 12.5 mg LFTS improving D/C in am per CTS if INR >2 Atelectasis 11/15/2013 04/29/2020 Overview: On RA, -3.4kg, CXR w/minimal posterior effusions and mild opacity that is most suggestive of atelectasis. Continue PEP/OOB/C&DB. Fluid overload 11/15/2013 11/16/2013 Overview: Pre-op wt 120.7 kg, current wt 129.6. Pt received IVF resuscitation in ICU, upon assessment generalized edema. Will start gentle diuresis with Lasix. Monitor I&O and daily weights. Urethral stricture 11/15/2013 4 Overview: H/O of urethral stricture. Camacho D/C this am. Monitor Urine output. Cardiac insufficiency 11/13/20132013 Overview: RV sluggish post CPB. Improved with Epi. No pa cath in place. Will monitor hemodynamics Stress hyperglycemia 11/13/2013 014 Overview: Accuchecks and SSI Postoperative pain 11/13/2013 4 Overview: 11/21/2013 Pain controlled with Fenanyl BUILDING PERFORMANCE SPECIALIST, Lidoderm, Toradol, and Percocet. Supplement as needed. Hypotension 11/13/2013 11/16/2013 Overview: Filling pressures remain low. Norepi for goal MAP > 65. Cont fluid resuscitation as needed. 11/15/2013 much improved BP after fluid resuscitation in ICU. Will start gentle diuresing and low dose BB and monitor. Pre-op testing 11/01/2013 11/16/2013 Overview: Images from the original note were not included. [facility] PRE-[facility] CHECK[facility] Surgeon: Fernando Llanes M.D. Informed Consent Completed:yes CAD: No H & P completed: Yes PA/LAT: Completed CT: Completed MRI: N/A LE US: N/A Cath: Yes - reviewed: Yes Echo:Completed EKG: Completed EF %: 71 PI's: N/A Carotid: N/A Mapping: N/A Dental: Completed PFT's: Completed CBC, Coags, BMP, Mg, Phos Basename 11/19/13 0633 11/18/13 0506 11/17/13 0736 WBC 6.48 5.80 4.42 HB 8.7* 8.1* 7.7* HCT 26.8* 24.2* 23.6* PLT 323 226 169 INR -- -- -- APTT -- -- -- NA 140 138 138 K 4.4 4.2 3.8 CHLOR 102 103 101 CO2 27 25 27 BUN 9* 11 13 CREAT 0.90 0.84 0.83 GLUC 99 108* 102* CA 9.2 9.1 8.5 MG -- -- -- P -- -- -- UA: p HCG:N/A ABO/ABO Confirmed: Yes Blood ordered: Yes 2 SA Swab: Yes - results: positive - treated. Last Dose of Anticoagulation: asa 162 sub q heparin Op Note: yes Pacemaker Check: N/A Consults: none DM: No Cardiac Surgical prep: N/A SIGNATURE: Jackie Jc CNP CHECKED BY: arron DATE of SERVICE: 11/01/2013 TIME of SERVICE: 2:59 PM mwa 11/19 Mitral valve regurgitation 11/01/2013 0 11/16/2013 Overview: s/p MVr 01/201311/13/2013:MV repair with 31 mm De Leon band and valvuloplasty documented as of this encounter (statuses as of 12/26/2022) [facility]04-[facility]2016 History of Past illness Narrative* Problem Noted Date Diagnosed Date Resolved Date Lightheadedness 08/05/2015 04/29/2020 Overview: Differential includes arrhythmia (including block or atrial tach) versus volume- down versus valvular issue such as pannus growing into [facility] mitral valve. Unlikely that his septum has re-hypertrophied. It's unusual that he is having symptoms during my interview while he is in sinus rhythm and with a normal blood pressure, and normal orthostatics. -favor arrhythmia issues versus volume issues (although orthostatic vital signs negative) versus psych -exam suggests a well functioning valve prosthesis -no syncopal events Plan -telemetry -echocardiogram in AM, assess for valve function/thrombus/pannus -consider exercise testing to assess BP and HR response if echo is unrevealing -encouraged po intake -consider loop recorder prior to discharge Stricture, urethra 12/10/2014 0 Subtherapeutic international normalized ratio (INR) 12/08/2013 04/29/2020 Overview: GOAL 2.5-3.5 for mechanical mitral valve Home dose 12.5 but made his INR GO to >4.5 AND WAS TOLD TO STOP COUMADIN FOR 2 DAYS AND 12/08 INR 1.9 RESUME TODAY ON 10 MG 12/09 INR 1.7 heparin drip per CTS at rate 500cc/r goal PTT 50-60 coumadin 12.5 mg 12/10 INR 2 ok to discharge per CTS Will discharge on 12.5 mg dose alternating with 10 mg Abdominal pain 12/08/2013 04/29/2020 Overview: DISSECTION, appendicitis, obstruction and pancreatitis ruled out Likely gastroenteritis Resolving LFTS trending down tolerating regular diet Elevated LFTs 12/08/2013 04/29/2020 Overview: Up from yesterday ++AST, ALT,ALP , MAGNUS normal Goal bladder normal on CT abdomen. Likely reactive Improving Trend off tylenol Epistaxis 11/27/2013 04/29/2020 Overview: Nosebleed x 2 11/27, no further episode today. Discharge on ocean spray tid and afrin prn. If continues to be problematic, discussed ENT for eval. Anemia 11/21/2013 04/29/2020 Overview: H/H 8.1/25.3, stable. Received 1u PRBC 11/23, 2U PRBC 11/22. Discharge on iron. Hypovolemia 11/20/2013 11/22/2013 Overview: 11/20/2013 Low MAP and filling pressures. Replete volume. Pericardial effusion 11/17/2013 014 Overview: History: S/p MVr, myectomy Assessment: small to moderate right pericardial effusion Plan: Having re-op on Wednesday11.20.2013. SUMMARY 11/16/2013 04/29/2020 Overview: Indication for admission/procedure: MR LVEF: Normal RVF: Normal PMH/PSH: MS, HTN, HPL, Sleep apnea (CPAP), Urethral stricture, Depression, 01/2013, LAAL, MVr Surgeries: 11/13/2013 Myectomy (5gm), MVr with de leon band and valvuloplasty 11/20/2013 Redo Sternotomy MVR (27/29mm OnX) 12/08/13 readmitted for abdominal pain from OSH A/P -Abdominal pain: likely gastroenteritis, resolved -subtherapeutic INR, report that INR WAS 4.5 ans was told to hold coumadin till today then decrease dose from 12.5 to 10 mg, heparin drip for INR <1.8 (TODAY 1.7) coumadin 12.5 mg LFTS improving D/C in am per CTS if INR >2 Atelectasis 11/15/2013 04/29/2020 Overview: On RA, -3.4kg, CXR w/minimal posterior effusions and mild opacity that is most suggestive of atelectasis. Continue PEP/OOB/C&DB. Fluid overload 11/15/2013 11/16/2013 Overview: Pre-op wt 120.7 kg, current wt 129.6. Pt received IVF resuscitation in ICU, upon assessment generalized edema. Will start gentle diuresis with Lasix. Monitor I&O and daily weights. Urethral stricture 11/15/2013 4 Overview: H/O of urethral stricture. Camacho D/C this am. Monitor Urine output. Cardiac insufficiency 11/13/20132013 Overview: RV sluggish post CPB. Improved with Epi. No pa cath in place. Will monitor hemodynamics Stress hyperglycemia 11/13/2013 014 Overview: Accuchecks and SSI Postoperative pain 11/13/2013 4 Overview: 11/21/2013 Pain controlled with Fenanyl BUILDING PERFORMANCE SPECIALIST, Lidoderm, Toradol, and Percocet. Supplement as needed. Hypotension 11/13/2013 11/16/2013 Overview: Filling pressures remain low. Norepi for goal MAP > 65. Cont fluid resuscitation as needed. 11/15/2013 much improved BP after fluid resuscitation in ICU. Will start gentle diuresing and low dose BB and monitor. Pre-op testing 11/01/2013 11/16/2013 Overview: Images from the original note were not included. [facility] Surgeon: Fernando Llanes M.D. Informed Consent Completed:yes CAD: No H & P completed: Yes PA/LAT: Completed CT: Completed MRI: N/A LE US: N/A Cath: Yes - reviewed: Yes Echo:Completed EKG: Completed EF %: 71 PI's: N/A Carotid: N/A Mapping: N/A Dental: Completed PFT's: Completed CBC, Coags, BMP, Mg, Phos Basename 11/19/13 0633 11/18/13 0506 11/17/13 0736 WBC 6.48 5.80 4.42 HB 8.7* 8.1* 7.7* HCT 26.8* 24.2* 23.6* PLT 323 226 169 INR -- -- -- APTT -- -- -- NA 140 138 138 K 4.4 4.2 3.8 CHLOR 102 103 101 CO2 27 25 27 BUN 9* 11 13 CREAT 0.90 0.84 0.83 GLUC 99 108* 102* CA 9.2 9.1 8.5 MG -- -- -- P -- -- -- UA: p HCG:N/A ABO/ABO Confirmed: Yes Blood ordered: Yes 2 SA Swab: Yes - results: positive - treated. Last Dose of Anticoagulation: asa 162 sub q heparin Op Note: yes Pacemaker Check: N/A Consults: none DM: No Cardiac Surgical prep: N/A SIGNATURE: Jackie Jc CNP CHECKED BY: arron DATE of SERVICE: 11/01/2013 TIME of SERVICE: 2:59 PM mwa 11/19 Mitral valve regurgitation 11/01/2013 0 11/16/2013 Overview: s/p MVr 01/201311/13/2013:MV repair with 31 mm De Leon band and valvuloplasty documented as of this encounter (statuses as of 12/30/2022) [facility] History of Past illness Narrative* Problem Noted Date Diagnosed Date Resolved Date Lightheadedness 08/05/2015 04/29/2020 Overview: Differential includes arrhythmia (including block or atrial tach) versus volume- down versus valvular issue such as pannus growing into [facility] mitral valve. Unlikely that his septum has re-hypertrophied. It's unusual that he is having symptoms during my interview while he is in sinus rhythm and with a normal blood pressure, and normal orthostatics. -favor arrhythmia issues versus volume issues (although orthostatic vital signs negative) versus psych -exam suggests a well functioning valve prosthesis -no syncopal events Plan -telemetry -echocardiogram in AM, assess for valve function/thrombus/pannus -consider exercise testing to assess BP and HR response if echo is unrevealing -encouraged po intake -consider loop recorder prior to discharge Stricture, urethra 12/10/2014 0 Subtherapeutic international normalized ratio (INR) 12/08/2013 04/29/2020 Overview: GOAL 2.5-3.5 for mechanical mitral valve Home dose 12.5 but made his INR GO to >4.5 AND WAS TOLD TO STOP COUMADIN FOR 2 DAYS AND 12/08 INR 1.9 RESUME TODAY ON 10 MG 12/09 INR 1.7 heparin drip per CTS at rate 500cc/r goal PTT 50-60 coumadin 12.5 mg 12/10 INR 2 ok to discharge per CTS Will discharge on 12.5 mg dose alternating with 10 mg Abdominal pain 12/08/2013 04/29/2020 Overview: DISSECTION, appendicitis, obstruction and pancreatitis ruled out Likely gastroenteritis Resolving LFTS trending down tolerating regular diet Elevated LFTs 12/08/2013 04/29/2020 Overview: Up from yesterday ++AST, ALT,ALP , MAGNUS normal Goal bladder normal on CT abdomen. Likely reactive Improving Trend off tylenol Epistaxis 11/27/2013 04/29/2020 Overview: Nosebleed x 2 11/27, no further episode today. Discharge on ocean spray tid and afrin prn. If continues to be problematic, discussed ENT for eval. Anemia 11/21/2013 04/29/2020 Overview: H/H 8.1/25.3, stable. Received 1u PRBC 11/23, 2U PRBC 11/22. Discharge on iron. Hypovolemia 11/20/2013 11/22/2013 Overview: 11/20/2013 Low MAP and filling pressures. Replete volume. Pericardial effusion 11/17/2013 014 Overview: History: S/p MVr, myectomy Assessment: small to moderate right pericardial effusion Plan: Having re-op on Wednesday11.20.2013. SUMMARY 11/16/2013 04/29/2020 Overview: Indication for admission/procedure: MR LVEF: Normal RVF: Normal PMH/PSH: MS, HTN, HPL, Sleep apnea (CPAP), Urethral stricture, Depression, 01/2013, LAAL, MVr Surgeries: 11/13/2013 Myectomy (5gm), MVr with de leon band and valvuloplasty 11/20/2013 Redo Sternotomy MVR (27/29mm OnX) 12/08/13 readmitted for abdominal pain from OSH A/P -Abdominal pain: likely gastroenteritis, resolved -subtherapeutic INR, report that INR WAS 4.5 ans was told to hold coumadin till today then decrease dose from 12.5 to 10 mg, heparin drip for INR <1.8 (TODAY 1.7) coumadin 12.5 mg LFTS improving D/C in am per CTS if INR >2 Atelectasis 11/15/2013 04/29/2020 Overview: On RA, -3.4kg, CXR w/minimal posterior effusions and mild opacity that is most suggestive of atelectasis. Continue PEP/OOB/C&DB. Fluid overload 11/15/2013 11/16/2013 Overview: Pre-op wt 120.7 kg, current wt 129.6. Pt received IVF resuscitation in ICU, upon assessment generalized edema. Will start gentle diuresis with Lasix. Monitor I&O and daily weights. Urethral stricture 11/15/2013 4 Overview: H/O of urethral stricture. Camacho D/C this am. Monitor Urine output. Cardiac insufficiency 11/13/20132013 Overview: RV sluggish post CPB. Improved with Epi. No pa cath in place. Will monitor hemodynamics Stress hyperglycemia 11/13/2013 014 Overview: Accuchecks and SSI Postoperative pain 11/13/2013 4 Overview: 11/21/2013 Pain controlled with Fenanyl BUILDING PERFORMANCE SPECIALIST, Lidoderm, Toradol, and Percocet. Supplement as needed. Hypotension 11/13/2013 11/16/2013 Overview: Filling pressures remain low. Norepi for goal MAP > 65. Cont fluid resuscitation as needed. 11/15/2013 much improved BP after fluid resuscitation in ICU. Will start gentle diuresing and low dose BB and monitor. Pre-op testing 11/01/2013 11/16/2013 Overview: Images from the original note were not included. [facility] Surgeon: Fernando Llanes M.D. Informed Consent Completed:yes CAD: No H & P completed: Yes PA/LAT: Completed CT: Completed MRI: N/A LE US: N/A Cath: Yes - reviewed: Yes Echo:Completed EKG: Completed EF %: 71 PI's: N/A Carotid: N/A Mapping: N/A Dental: Completed PFT's: Completed CBC, Coags, BMP, Mg, Phos Basename 11/19/13 0633 11/18/13 0506 11/17/13 0736 WBC 6.48 5.80 4.42 HB 8.7* 8.1* 7.7* HCT 26.8* 24.2* 23.6* PLT 323 226 169 INR -- -- -- APTT -- -- -- NA 140 138 138 K 4.4 4.2 3.8 CHLOR 102 103 101 CO2 27 25 27 BUN 9* 11 13 CREAT 0.90 0.84 0.83 GLUC 99 108* 102* CA 9.2 9.1 8.5 MG -- -- -- P -- -- -- UA: p HCG:N/A ABO/ABO Confirmed: Yes Blood ordered: Yes 2 SA Swab: Yes - results: positive - treated. Last Dose of Anticoagulation: asa 162 sub q heparin Op Note: yes Pacemaker Check: N/A Consults: none DM: No Cardiac Surgical prep: N/A SIGNATURE: Jackie Jc CNP CHECKED BY: arron DATE of SERVICE: 11/01/2013 TIME of SERVICE: 2:59 PM mwa 11/19 Mitral valve regurgitation 11/01/2013 0 11/16/2013 Overview: s/p MVr 01/201311/13/2013:MV repair with 31 mm De Leon band and valvuloplasty documented as of this encounter (statuses as of 12/31/2022) [facility] History of Past illness Narrative* Problem Noted Date Diagnosed Date Resolved Date Lightheadedness 08/05/2015 04/29/2020 Overview: Differential includes arrhythmia (including block or atrial tach) versus volume- down versus valvular issue such as pannus growing into [facility] mitral valve. Unlikely that his septum has re-hypertrophied. It's unusual that he is having symptoms during my interview while he is in sinus rhythm and with a normal blood pressure, and normal orthostatics. -favor arrhythmia issues versus volume issues (although orthostatic vital signs negative) versus psych -exam suggests a well functioning valve prosthesis -no syncopal events Plan -telemetry -echocardiogram in AM, assess for valve function/thrombus/pannus -consider exercise testing to assess BP and HR response if echo is unrevealing -encouraged po intake -consider loop recorder prior to discharge Stricture, urethra 12/10/2014 0 Subtherapeutic international normalized ratio (INR) 12/08/2013 04/29/2020 Overview: GOAL 2.5-3.5 for mechanical mitral valve Home dose 12.5 but made his INR GO to >4.5 AND WAS TOLD TO STOP COUMADIN FOR 2 DAYS AND 12/08 INR 1.9 RESUME TODAY ON 10 MG / INR 1.7 heparin drip per CTS at rate 500cc/r goal PTT 50-60 coumadin 12.5 mg 12/10 INR 2 ok to discharge per CTS Will discharge on 12.5 mg dose alternating with 10 mg Abdominal pain 12/08/2013 04/29/2020 Overview: DISSECTION, appendicitis, obstruction and pancreatitis ruled out Likely gastroenteritis Resolving LFTS trending down tolerating regular diet Elevated LFTs 12/08/2013 04/29/2020 Overview: Up from yesterday ++AST, ALT,ALP , MAGNUS normal Goal bladder normal on CT abdomen. Likely reactive Improving Trend off tylenol Epistaxis 11/27/2013 04/29/2020 Overview: Nosebleed x 2 11/27, no further episode today. Discharge on ocean spray tid and afrin prn. If continues to be problematic, discussed ENT for eval. Anemia 11/21/2013 04/29/2020 Overview: H/H 8.1/25.3, stable. Received 1u PRBC 11/23, 2U PRBC 11/22. Discharge on iron. Hypovolemia 11/20/2013 11/22/2013 Overview: 11/20/2013 Low MAP and filling pressures. Replete volume. Pericardial effusion 11/17/2013 014 Overview: History: S/p MVr, myectomy Assessment: small to moderate right pericardial effusion Plan: Having re-op on Wednesday11.20.2013. SUMMARY 11/16/2013 04/29/2020 Overview: Indication for admission/procedure: MR LVEF: Normal RVF: Normal PMH/PSH: MS, HTN, HPL, Sleep apnea (CPAP), Urethral stricture, Depression, 01/2013, LAAL, MVr Surgeries: 11/13/2013 Myectomy (5gm), MVr with de leon band and valvuloplasty 11/20/2013 Redo Sternotomy MVR (27/29mm OnX) 12/08/13 readmitted for abdominal pain from OSH A/P -Abdominal pain: likely gastroenteritis, resolved -subtherapeutic INR, report that INR WAS 4.5 ans was told to hold coumadin till today then decrease dose from 12.5 to 10 mg, heparin drip for INR <1.8 (TODAY 1.7) coumadin 12.5 mg LFTS improving D/C in am per CTS if INR >2 Atelectasis 11/15/2013 04/29/2020 Overview: On RA, -3.4kg, CXR w/minimal posterior effusions and mild opacity that is most suggestive of atelectasis. Continue PEP/OOB/C&DB. Fluid overload 11/15/2013 11/16/2013 Overview: Pre-op wt 120.7 kg, current wt 129.6. Pt received IVF resuscitation in ICU, upon assessment generalized edema. Will start gentle diuresis with Lasix. Monitor I&O and daily weights. Urethral stricture 11/15/2013 4 Overview: H/O of urethral stricture. Camacho D/C this am. Monitor Urine output. Cardiac insufficiency 11/13/20132013 Overview: RV sluggish post CPB. Improved with Epi. No pa cath in place. Will monitor hemodynamics Stress hyperglycemia 11/13/2013 014 Overview: Accuchecks and SSI Postoperative pain 11/13/2013 4 Overview: 11/21/2013 Pain controlled with Fenanyl BUILDING PERFORMANCE SPECIALIST, Lidoderm, Toradol, and Percocet. Supplement as needed. Hypotension 11/13/2013 11/16/2013 Overview: Filling pressures remain low. Norepi for goal MAP > 65. Cont fluid resuscitation as needed. 11/15/2013 much improved BP after fluid resuscitation in ICU. Will start gentle diuresing and low dose BB and monitor. Pre-op testing 11/01/2013 11/16/2013 Overview: Images from the original note were not included. [facility] Surgeon: Fernando Llanes M.D. Informed Consent Completed:yes CAD: No H & P completed: Yes PA/LAT: Completed CT: Completed MRI: N/A LE US: N/A Cath: Yes - reviewed: Yes Echo:Completed EKG: Completed EF %: 71 PI's: N/A Carotid: N/A Mapping: N/A Dental: Completed PFT's: Completed CBC, Coags, BMP, Mg, Phos Basename 11/19/13 0633 11/18/13 0506 11/17/13 0736 WBC 6.48 5.80 4.42 HB 8.7* 8.1* 7.7* HCT 26.8* 24.2* 23.6* PLT 323 226 169 INR -- -- -- APTT -- -- -- NA 140 138 138 K 4.4 4.2 3.8 CHLOR 102 103 101 CO2 27 25 27 BUN 9* 11 13 CREAT 0.90 0.84 0.83 GLUC 99 108* 102* CA 9.2 9.1 8.5 MG -- -- -- P -- -- -- UA: p HCG:N/A ABO/ABO Confirmed: Yes Blood ordered: Yes 2 SA Swab: Yes - results: positive - treated. Last Dose of Anticoagulation: asa 162 sub q heparin Op Note: yes Pacemaker Check: N/A Consults: none DM: No Cardiac Surgical prep: N/A SIGNATURE: Jackie Jc CNP CHECKED BY: arron DATE of SERVICE: 11/01/2013 TIME of SERVICE: 2:59 PM mwa 11/19 Mitral valve regurgitation 11/01/2013 0 11/16/2013 Overview: s/p MVr 01/201311/13/2013:MV repair with 31 mm De Leon band and valvuloplasty documented as of this encounter (statuses as of 01/14/2023) [facility]04-[facility]-2016 History of Past illness Narrative* Problem Noted Date Diagnosed Date Resolved Date Lightheadedness 08/05/2015 04/29/2020 Overview: Differential includes arrhythmia (including block or atrial tach) versus volume- down versus valvular issue such as pannus growing into [facility] mitral valve. Unlikely that his septum has re-hypertrophied. It's unusual that he is having symptoms during my interview while he is in sinus rhythm and with a normal blood pressure, and normal orthostatics. -favor arrhythmia issues versus volume issues (although orthostatic vital signs negative) versus psych -exam suggests a well functioning valve prosthesis -no syncopal events Plan -telemetry -echocardiogram in AM, assess for valve function/thrombus/pannus -consider exercise testing to assess BP and HR response if echo is unrevealing -encouraged po intake -consider loop recorder prior to discharge Stricture, urethra 12/10/2014 0 Subtherapeutic international normalized ratio (INR) 12/08/2013 04/29/2020 Overview: GOAL 2.5-3.5 for mechanical mitral valve Home dose 12.5 but made his INR GO to >4.5 AND WAS TOLD TO STOP COUMADIN FOR 2 DAYS AND 12/08 INR 1.9 RESUME TODAY ON 10 MG 12/09 INR 1.7 heparin drip per CTS at rate 500cc/r goal PTT 50-60 coumadin 12.5 mg 12/10 INR 2 ok to discharge per CTS Will discharge on 12.5 mg dose alternating with 10 mg Abdominal pain 12/08/2013 04/29/2020 Overview: DISSECTION, appendicitis, obstruction and pancreatitis ruled out Likely gastroenteritis Resolving LFTS trending down tolerating regular diet Elevated LFTs 12/08/2013 04/29/2020 Overview: Up from yesterday ++AST, ALT,ALP , MAGNUS normal Goal bladder normal on CT abdomen. Likely reactive Improving Trend off tylenol Epistaxis 11/27/2013 04/29/2020 Overview: Nosebleed x 2 11/27, no further episode today. Discharge on ocean spray tid and afrin prn. If continues to be problematic, discussed ENT for eval. Anemia 11/21/2013 04/29/2020 Overview: H/H 8.1/25.3, stable. Received 1u PRBC 11/23, 2U PRBC 11/22. Discharge on iron. Hypovolemia 11/20/2013 11/22/2013 Overview: 11/20/2013 Low MAP and filling pressures. Replete volume. Pericardial effusion 11/17/2013 014 Overview: History: S/p MVr, myectomy Assessment: small to moderate right pericardial effusion Plan: Having re-op on Wednesday11.20.2013. SUMMARY 11/16/2013 04/29/2020 Overview: Indication for admission/procedure: MR LVEF: Normal RVF: Normal PMH/PSH: MS, HTN, HPL, Sleep apnea (CPAP), Urethral stricture, Depression, 01/2013, LAAL, MVr Surgeries: 11/13/2013 Myectomy (5gm), MVr with de leon band and valvuloplasty 11/20/2013 Redo Sternotomy MVR (27/29mm OnX) 12/08/13 readmitted for abdominal pain from OSH A/P -Abdominal pain: likely gastroenteritis, resolved -subtherapeutic INR, report that INR WAS 4.5 ans was told to hold coumadin till today then decrease dose from 12.5 to 10 mg, heparin drip for INR <1.8 (TODAY 1.7) coumadin 12.5 mg LFTS improving D/C in am per CTS if INR >2 Atelectasis 11/15/2013 04/29/2020 Overview: On RA, -3.4kg, CXR w/minimal posterior effusions and mild opacity that is most suggestive of atelectasis. Continue PEP/OOB/C&DB. Fluid overload 11/15/2013 11/16/2013 Overview: Pre-op wt 120.7 kg, current wt 129.6. Pt received IVF resuscitation in ICU, upon assessment generalized edema. Will start gentle diuresis with Lasix. Monitor I&O and daily weights. Urethral stricture 11/15/2013 4 Overview: H/O of urethral stricture. Camacho D/C this am. Monitor Urine output. Cardiac insufficiency 11/13/20132013 Overview: RV sluggish post CPB. Improved with Epi. No pa cath in place. Will monitor hemodynamics Stress hyperglycemia 11/13/2013 014 Overview: Accuchecks and SSI Postoperative pain 11/13/2013 4 Overview: 11/21/2013 Pain controlled with Fenanyl BUILDING PERFORMANCE SPECIALIST, Lidoderm, Toradol, and Percocet. Supplement as needed. Hypotension 11/13/2013 11/16/2013 Overview: Filling pressures remain low. Norepi for goal MAP > 65. Cont fluid resuscitation as needed. 11/15/2013 much improved BP after fluid resuscitation in ICU. Will start gentle diuresing and low dose BB and monitor. Pre-op testing 11/01/2013 11/16/2013 Overview: Images from the original note were not included. [facility] Surgeon: Fernando Llanes M.D. Informed Consent Completed:yes CAD: No H & P completed: Yes PA/LAT: Completed CT: Completed MRI: N/A LE US: N/A Cath: Yes - reviewed: Yes Echo:Completed EKG: Completed EF %: 71 PI's: N/A Carotid: N/A Mapping: N/A Dental: Completed PFT's: Completed CBC, Coags, BMP, Mg, Phos Basename 11/19/13 0633 11/18/13 0506 11/17/13 0736 WBC 6.48 5.80 4.42 HB 8.7* 8.1* 7.7* HCT 26.8* 24.2* 23.6* PLT 323 226 169 INR -- -- -- APTT -- -- -- NA 140 138 138 K 4.4 4.2 3.8 CHLOR 102 103 101 CO2 27 25 27 BUN 9* 11 13 CREAT 0.90 0.84 0.83 GLUC 99 108* 102* CA 9.2 9.1 8.5 MG -- -- -- P -- -- -- UA: p HCG:N/A ABO/ABO Confirmed: Yes Blood ordered: Yes 2 SA Swab: Yes - results: positive - treated. Last Dose of Anticoagulation: asa 162 sub q heparin Op Note: yes Pacemaker Check: N/A Consults: none DM: No Cardiac Surgical prep: N/A SIGNATURE: Jackie Jc CNP CHECKED BY: arron DATE of SERVICE: 11/01/2013 TIME of SERVICE: 2:59 PM mwa 11/19 Mitral valve regurgitation 11/01/2013 0 11/16/2013 Overview: s/p MVr 01/201311/13/2013:MV repair with 31 mm De Leon band and valvuloplasty documented as of this encounter (statuses as of 01/15/2023) [facility]04-[facility]-2016 History of Past illness Narrative* Problem Noted Date Diagnosed Date Resolved Date Lightheadedness 08/05/2015 04/29/2020 Overview: Differential includes arrhythmia (including block or atrial tach) versus volume- down versus valvular issue such as pannus growing into [facility] mitral valve. Unlikely that his septum has re-hypertrophied. It's unusual that he is having symptoms during my interview while he is in sinus rhythm and with a normal blood pressure, and normal orthostatics. -favor arrhythmia issues versus volume issues (although orthostatic vital signs negative) versus psych -exam suggests a well functioning valve prosthesis -no syncopal events Plan -telemetry -echocardiogram in AM, assess for valve function/thrombus/pannus -consider exercise testing to assess BP and HR response if echo is unrevealing -encouraged po intake -consider loop recorder prior to discharge Stricture, urethra 12/10/2014 0 Subtherapeutic international normalized ratio (INR) 12/08/2013 04/29/2020 Overview: GOAL 2.5-3.5 for mechanical mitral valve Home dose 12.5 but made his INR GO to >4.5 AND WAS TOLD TO STOP COUMADIN FOR 2 DAYS AND 8/8 INR 1.9 RESUME TODAY ON 10 MG / INR 1.7 heparin drip per CTS at rate 500cc/r goal PTT 50-60 coumadin 12.5 mg / INR 2 ok to discharge per CTS Will discharge on 12.5 mg dose alternating with 10 mg Abdominal pain 12/08/2013 04/29/2020 Overview: DISSECTION, appendicitis, obstruction and pancreatitis ruled out Likely gastroenteritis Resolving LFTS trending down tolerating regular diet Elevated LFTs 12/08/2013 04/29/2020 Overview: Up from yesterday ++AST, ALT,ALP , MAGNUS normal Goal bladder normal on CT abdomen. Likely reactive Improving Trend off tylenol Epistaxis 11/27/2013 04/29/2020 Overview: Nosebleed x 2 11/27, no further episode today. Discharge on ocean spray tid and afrin prn. If continues to be problematic, discussed ENT for eval. Anemia 11/21/2013 04/29/2020 Overview: H/H 8.1/25.3, stable. Received 1u PRBC 11/23, 2U PRBC 11/22. Discharge on iron. Hypovolemia 11/20/2013 11/22/2013 Overview: 11/20/2013 Low MAP and filling pressures. Replete volume. Pericardial effusion 11/17/2013 014 Overview: History: S/p MVr, myectomy Assessment: small to moderate right pericardial effusion Plan: Having re-op on Wednesday11.20.2013. SUMMARY 11/16/2013 04/29/2020 Overview: Indication for admission/procedure: MR LVEF: Normal RVF: Normal PMH/PSH: MS, HTN, HPL, Sleep apnea (CPAP), Urethral stricture, Depression, 01/2013, LAAL, MVr Surgeries: 11/13/2013 Myectomy (5gm), MVr with de leon band and valvuloplasty 11/20/2013 Redo Sternotomy MVR (27/29mm OnX) 12/08/13 readmitted for abdominal pain from OSH A/P -Abdominal pain: likely gastroenteritis, resolved -subtherapeutic INR, report that INR WAS 4.5 ans was told to hold coumadin till today then decrease dose from 12.5 to 10 mg, heparin drip for INR <1.8 (TODAY 1.7) coumadin 12.5 mg LFTS improving D/C in am per CTS if INR >2 Atelectasis 11/15/2013 04/29/2020 Overview: On RA, -3.4kg, CXR w/minimal posterior effusions and mild opacity that is most suggestive of atelectasis. Continue PEP/OOB/C&DB. Fluid overload 11/15/2013 11/16/2013 Overview: Pre-op wt 120.7 kg, current wt 129.6. Pt received IVF resuscitation in ICU, upon assessment generalized edema. Will start gentle diuresis with Lasix. Monitor I&O and daily weights. Urethral stricture 11/15/2013 4 Overview: H/O of urethral stricture. Camacho D/C this am. Monitor Urine output. Cardiac insufficiency 11/13/20132013 Overview: RV sluggish post CPB. Improved with Epi. No pa cath in place. Will monitor hemodynamics Stress hyperglycemia 11/13/2013 014 Overview: Accuchecks and SSI Postoperative pain 11/13/2013 4 Overview: 11/21/2013 Pain controlled with Fenanyl BUILDING PERFORMANCE SPECIALIST, Lidoderm, Toradol, and Percocet. Supplement as needed. Hypotension 11/13/2013 11/16/2013 Overview: Filling pressures remain low. Norepi for goal MAP > 65. Cont fluid resuscitation as needed. 11/15/2013 much improved BP after fluid resuscitation in ICU. Will start gentle diuresing and low dose BB and monitor. Pre-op testing 11/01/2013 11/16/2013 Overview: Images from the original note were not included. [facility] PRE-[facility] CHECK[facility] Surgeon: Fernando Llanes M.D. Informed Consent Completed:yes CAD: No H & P completed: Yes PA/LAT: Completed CT: Completed MRI: N/A LE US: N/A Cath: Yes - reviewed: Yes Echo:Completed EKG: Completed EF %: 71 PI's: N/A Carotid: N/A Mapping: N/A Dental: Completed PFT's: Completed CBC, Coags, BMP, Mg, Phos Basename 11/19/13 0633 11/18/13 0506 11/17/13 0736 WBC 6.48 5.80 4.42 HB 8.7* 8.1* 7.7* HCT 26.8* 24.2* 23.6* PLT 323 226 169 INR -- -- -- APTT -- -- -- NA 140 138 138 K 4.4 4.2 3.8 CHLOR 102 103 101 CO2 27 25 27 BUN 9* 11 13 CREAT 0.90 0.84 0.83 GLUC 99 108* 102* CA 9.2 9.1 8.5 MG -- -- -- P -- -- -- UA: p HCG:N/A ABO/ABO Confirmed: Yes Blood ordered: Yes 2 SA Swab: Yes - results: positive - treated. Last Dose of Anticoagulation: asa 162 sub q heparin Op Note: yes Pacemaker Check: N/A Consults: none DM: No Cardiac Surgical prep: N/A SIGNATURE: Jackie Jc CNP CHECKED BY: arron DATE of SERVICE: 11/01/2013 TIME of SERVICE: 2:59 PM mwa 11/19 Mitral valve regurgitation 11/01/2013 0 11/16/2013 Overview: s/p MVr 01/201311/13/2013:MV repair with 31 mm De Leon band and valvuloplasty documented as of this encounter (statuses as of 01/29/2023) [facility]04-[facility]2016 History of Past illness Narrative* Problem Noted Date Diagnosed Date Resolved Date Lightheadedness 08/05/2015 04/29/2020 Overview: Differential includes arrhythmia (including block or atrial tach) versus volume- down versus valvular issue such as pannus growing into [facility] mitral valve. Unlikely that his septum has re-hypertrophied. It's unusual that he is having symptoms during my interview while he is in sinus rhythm and with a normal blood pressure, and normal orthostatics. -favor arrhythmia issues versus volume issues (although orthostatic vital signs negative) versus psych -exam suggests a well functioning valve prosthesis -no syncopal events Plan -telemetry -echocardiogram in AM, assess for valve function/thrombus/pannus -consider exercise testing to assess BP and HR response if echo is unrevealing -encouraged po intake -consider loop recorder prior to discharge Stricture, urethra 12/10/2014 0 Subtherapeutic international normalized ratio (INR) 12/08/2013 04/29/2020 Overview: GOAL 2.5-3.5 for mechanical mitral valve Home dose 12.5 but made his INR GO to >4.5 AND WAS TOLD TO STOP COUMADIN FOR 2 DAYS AND 12/08 INR 1.9 RESUME TODAY ON 10 MG 12/09 INR 1.7 heparin drip per CTS at rate 500cc/r goal PTT 50-60 coumadin 12.5 mg 12/10 INR 2 ok to discharge per CTS Will discharge on 12.5 mg dose alternating with 10 mg Abdominal pain 12/08/2013 04/29/2020 Overview: DISSECTION, appendicitis, obstruction and pancreatitis ruled out Likely gastroenteritis Resolving LFTS trending down tolerating regular diet Elevated LFTs 12/08/2013 04/29/2020 Overview: Up from yesterday ++AST, ALT,ALP , MAGNUS normal Goal bladder normal on CT abdomen. Likely reactive Improving Trend off tylenol Epistaxis 11/27/2013 04/29/2020 Overview: Nosebleed x 2 11/27, no further episode today. Discharge on ocean spray tid and afrin prn. If continues to be problematic, discussed ENT for eval. Anemia 11/21/2013 04/29/2020 Overview: H/H 8.1/25.3, stable. Received 1u PRBC 11/23, 2U PRBC 11/22. Discharge on iron. Hypovolemia 11/20/2013 11/22/2013 Overview: 11/20/2013 Low MAP and filling pressures. Replete volume. Pericardial effusion 11/17/2013 014 Overview: History: S/p MVr, myectomy Assessment: small to moderate right pericardial effusion Plan: Having re-op on Wednesday11.20.2013. SUMMARY 11/16/2013 04/29/2020 Overview: Indication for admission/procedure: MR LVEF: Normal RVF: Normal PMH/PSH: MS, HTN, HPL, Sleep apnea (CPAP), Urethral stricture, Depression, 01/2013, LAAL, MVr Surgeries: 11/13/2013 Myectomy (5gm), MVr with de leon band and valvuloplasty 11/20/2013 Redo Sternotomy MVR (27/29mm OnX) 12/08/13 readmitted for abdominal pain from OSH A/P -Abdominal pain: likely gastroenteritis, resolved -subtherapeutic INR, report that INR WAS 4.5 ans was told to hold coumadin till today then decrease dose from 12.5 to 10 mg, heparin drip for INR <1.8 (TODAY 1.7) coumadin 12.5 mg LFTS improving D/C in am per CTS if INR >2 Atelectasis 11/15/2013 04/29/2020 Overview: On RA, -3.4kg, CXR w/minimal posterior effusions and mild opacity that is most suggestive of atelectasis. Continue PEP/OOB/C&DB. Fluid overload 11/15/2013 11/16/2013 Overview: Pre-op wt 120.7 kg, current wt 129.6. Pt received IVF resuscitation in ICU, upon assessment generalized edema. Will start gentle diuresis with Lasix. Monitor I&O and daily weights. Urethral stricture 11/15/2013 4 Overview: H/O of urethral stricture. Camacho D/C this am. Monitor Urine output. Cardiac insufficiency 11/13/20132013 Overview: RV sluggish post CPB. Improved with Epi. No pa cath in place. Will monitor hemodynamics Stress hyperglycemia 11/13/2013 014 Overview: Accuchecks and SSI Postoperative pain 11/13/2013 4 Overview: 11/21/2013 Pain controlled with Fenanyl BUILDING PERFORMANCE SPECIALIST, Lidoderm, Toradol, and Percocet. Supplement as needed. Hypotension 11/13/2013 11/16/2013 Overview: Filling pressures remain low. Norepi for goal MAP > 65. Cont fluid resuscitation as needed. 11/15/2013 much improved BP after fluid resuscitation in ICU. Will start gentle diuresing and low dose BB and monitor. Pre-op testing 11/01/2013 11/16/2013 Overview: Images from the original note were not included. [facility] Surgeon: Fernando Llanes M.D. Informed Consent Completed:yes CAD: No H & P completed: Yes PA/LAT: Completed CT: Completed MRI: N/A LE US: N/A Cath: Yes - reviewed: Yes Echo:Completed EKG: Completed EF %: 71 PI's: N/A Carotid: N/A Mapping: N/A Dental: Completed PFT's: Completed CBC, Coags, BMP, Mg, Phos Basename 11/19/13 0633 11/18/13 0506 11/17/13 0736 WBC 6.48 5.80 4.42 HB 8.7* 8.1* 7.7* HCT 26.8* 24.2* 23.6* PLT 323 226 169 INR -- -- -- APTT -- -- -- NA 140 138 138 K 4.4 4.2 3.8 CHLOR 102 103 101 CO2 27 25 27 BUN 9* 11 13 CREAT 0.90 0.84 0.83 GLUC 99 108* 102* CA 9.2 9.1 8.5 MG -- -- -- P -- -- -- UA: p HCG:N/A ABO/ABO Confirmed: Yes Blood ordered: Yes 2 SA Swab: Yes - results: positive - treated. Last Dose of Anticoagulation: asa 162 sub q heparin Op Note: yes Pacemaker Check: N/A Consults: none DM: No Cardiac Surgical prep: N/A SIGNATURE: Jackie Jc CNP CHECKED BY: arron DATE of SERVICE: 11/01/2013 TIME of SERVICE: 2:59 PM mwa 11/19 Mitral valve regurgitation 11/01/2013 0 11/16/2013 Overview: s/p MVr 01/201311/13/2013:MV repair with 31 mm De Leon band and valvuloplasty documented as of this encounter (statuses as of 02/10/2023) [facility] History of Past illness Narrative* Problem Noted Date Diagnosed Date Resolved Date Lightheadedness 08/05/2015 04/29/2020 Overview: Differential includes arrhythmia (including block or atrial tach) versus volume- down versus valvular issue such as pannus growing into [facility] mitral valve. Unlikely that his septum has re-hypertrophied. It's unusual that he is having symptoms during my interview while he is in sinus rhythm and with a normal blood pressure, and normal orthostatics. -favor arrhythmia issues versus volume issues (although orthostatic vital signs negative) versus psych -exam suggests a well functioning valve prosthesis -no syncopal events Plan -telemetry -echocardiogram in AM, assess for valve function/thrombus/pannus -consider exercise testing to assess BP and HR response if echo is unrevealing -encouraged po intake -consider loop recorder prior to discharge Stricture, urethra 12/10/2014 0 Subtherapeutic international normalized ratio (INR) 12/08/2013 04/29/2020 Overview: GOAL 2.5-3.5 for mechanical mitral valve Home dose 12.5 but made his INR GO to >4.5 AND WAS TOLD TO STOP COUMADIN FOR 2 DAYS AND 12/08 INR 1.9 RESUME TODAY ON 10 MG 8/9 INR 1.7 heparin drip per CTS at rate 500cc/r goal PTT 50-60 coumadin 12.5 mg 8/10 INR 2 ok to discharge per CTS Will discharge on 12.5 mg dose alternating with 10 mg Abdominal pain 12/08/2013 04/29/2020 Overview: DISSECTION, appendicitis, obstruction and pancreatitis ruled out Likely gastroenteritis Resolving LFTS trending down tolerating regular diet Elevated LFTs 12/08/2013 04/29/2020 Overview: Up from yesterday ++AST, ALT,ALP , MAGNUS normal Goal bladder normal on CT abdomen. Likely reactive Improving Trend off tylenol Epistaxis 11/27/2013 04/29/2020 Overview: Nosebleed x 2 11/27, no further episode today. Discharge on ocean spray tid and afrin prn. If continues to be problematic, discussed ENT for eval. Anemia 11/21/2013 04/29/2020 Overview: H/H 8.1/25.3, stable. Received 1u PRBC 11/23, 2U PRBC 11/22. Discharge on iron. Hypovolemia 11/20/2013 11/22/2013 Overview: 11/20/2013 Low MAP and filling pressures. Replete volume. Pericardial effusion 11/17/2013 014 Overview: History: S/p MVr, myectomy Assessment: small to moderate right pericardial effusion Plan: Having re-op on Wednesday11.20.2013. SUMMARY 11/16/2013 04/29/2020 Overview: Indication for admission/procedure: MR LVEF: Normal RVF: Normal PMH/PSH: MS, HTN, HPL, Sleep apnea (CPAP), Urethral stricture, Depression, 01/2013, LAAL, MVr Surgeries: 11/13/2013 Myectomy (5gm), MVr with de leon band and valvuloplasty 11/20/2013 Redo Sternotomy MVR (27/29mm OnX) 12/08/13 readmitted for abdominal pain from OSH A/P -Abdominal pain: likely gastroenteritis, resolved -subtherapeutic INR, report that INR WAS 4.5 ans was told to hold coumadin till today then decrease dose from 12.5 to 10 mg, heparin drip for INR <1.8 (TODAY 1.7) coumadin 12.5 mg LFTS improving D/C in am per CTS if INR >2 Atelectasis 11/15/2013 04/29/2020 Overview: On RA, -3.4kg, CXR w/minimal posterior effusions and mild opacity that is most suggestive of atelectasis. Continue PEP/OOB/C&DB. Fluid overload 11/15/2013 11/16/2013 Overview: Pre-op wt 120.7 kg, current wt 129.6. Pt received IVF resuscitation in ICU, upon assessment generalized edema. Will start gentle diuresis with Lasix. Monitor I&O and daily weights. Urethral stricture 11/15/2013 4 Overview: H/O of urethral stricture. Camacho D/C this am. Monitor Urine output. Cardiac insufficiency 11/13/20132013 Overview: RV sluggish post CPB. Improved with Epi. No pa cath in place. Will monitor hemodynamics Stress hyperglycemia 11/13/2013 014 Overview: Accuchecks and SSI Postoperative pain 11/13/2013 4 Overview: 11/21/2013 Pain controlled with Fenanyl BUILDING PERFORMANCE SPECIALIST, Lidoderm, Toradol, and Percocet. Supplement as needed. Hypotension 11/13/2013 11/16/2013 Overview: Filling pressures remain low. Norepi for goal MAP > 65. Cont fluid resuscitation as needed. 11/15/2013 much improved BP after fluid resuscitation in ICU. Will start gentle diuresing and low dose BB and monitor. Pre-op testing 11/01/2013 11/16/2013 Overview: Images from the original note were not included. [facility] Surgeon: Fernando Llanes M.D. Informed Consent Completed:yes CAD: No H & P completed: Yes PA/LAT: Completed CT: Completed MRI: N/A LE US: N/A Cath: Yes - reviewed: Yes Echo:Completed EKG: Completed EF %: 71 PI's: N/A Carotid: N/A Mapping: N/A Dental: Completed PFT's: Completed CBC, Coags, BMP, Mg, Phos Basename 11/19/13 0633 11/18/13 0506 11/17/13 0736 WBC 6.48 5.80 4.42 HB 8.7* 8.1* 7.7* HCT 26.8* 24.2* 23.6* PLT 323 226 169 INR -- -- -- APTT -- -- -- NA 140 138 138 K 4.4 4.2 3.8 CHLOR 102 103 101 CO2 27 25 27 BUN 9* 11 13 CREAT 0.90 0.84 0.83 GLUC 99 108* 102* CA 9.2 9.1 8.5 MG -- -- -- P -- -- -- UA: p HCG:N/A ABO/ABO Confirmed: Yes Blood ordered: Yes 2 SA Swab: Yes - results: positive - treated. Last Dose of Anticoagulation: asa 162 sub q heparin Op Note: yes Pacemaker Check: N/A Consults: none DM: No Cardiac Surgical prep: N/A SIGNATURE: Jackie Jc CNP CHECKED BY: arron DATE of SERVICE: 11/01/2013 TIME of SERVICE: 2:59 PM mwa 11/19 Mitral valve regurgitation 11/01/2013 0 11/16/2013 Overview: s/p MVr 01/201311/13/2013:MV repair with 31 mm De Leon band and valvuloplasty documented as of this encounter (statuses as of 02/20/2023) [facility]04-[facility]2016 History of Past illness Narrative* Problem Noted Date Diagnosed Date Resolved Date Lightheadedness 08/05/2015 04/29/2020 Overview: Differential includes arrhythmia (including block or atrial tach) versus volume- down versus valvular issue such as pannus growing into [facility] mitral valve. Unlikely that his septum has re-hypertrophied. It's unusual that he is having symptoms during my interview while he is in sinus rhythm and with a normal blood pressure, and normal orthostatics. -favor arrhythmia issues versus volume issues (although orthostatic vital signs negative) versus psych -exam suggests a well functioning valve prosthesis -no syncopal events Plan -telemetry -echocardiogram in AM, assess for valve function/thrombus/pannus -consider exercise testing to assess BP and HR response if echo is unrevealing -encouraged po intake -consider loop recorder prior to discharge Stricture, urethra 12/10/2014 0 Subtherapeutic international normalized ratio (INR) 12/08/2013 04/29/2020 Overview: GOAL 2.5-3.5 for mechanical mitral valve Home dose 12.5 but made his INR GO to >4.5 AND WAS TOLD TO STOP COUMADIN FOR 2 DAYS AND 12/08 INR 1.9 RESUME TODAY ON 10 MG 12/09 INR 1.7 heparin drip per CTS at rate 500cc/r goal PTT 50-60 coumadin 12.5 mg 12/10 INR 2 ok to discharge per CTS Will discharge on 12.5 mg dose alternating with 10 mg Abdominal pain 12/08/2013 04/29/2020 Overview: DISSECTION, appendicitis, obstruction and pancreatitis ruled out Likely gastroenteritis Resolving LFTS trending down tolerating regular diet Elevated LFTs 12/08/2013 04/29/2020 Overview: Up from yesterday ++AST, ALT,ALP , MAGNUS normal Goal bladder normal on CT abdomen. Likely reactive Improving Trend off tylenol Epistaxis 11/27/2013 04/29/2020 Overview: Nosebleed x 2 11/27, no further episode today. Discharge on ocean spray tid and afrin prn. If continues to be problematic, discussed ENT for eval. Anemia 11/21/2013 04/29/2020 Overview: H/H 8.1/25.3, stable. Received 1u PRBC 11/23, 2U PRBC 11/22. Discharge on iron. Hypovolemia 11/20/2013 11/22/2013 Overview: 11/20/2013 Low MAP and filling pressures. Replete volume. Pericardial effusion 11/17/2013 014 Overview: History: S/p MVr, myectomy Assessment: small to moderate right pericardial effusion Plan: Having re-op on Wednesday11.20.2013. SUMMARY 11/16/2013 04/29/2020 Overview: Indication for admission/procedure: MR LVEF: Normal RVF: Normal PMH/PSH: MS, HTN, HPL, Sleep apnea (CPAP), Urethral stricture, Depression, 01/2013, LAAL, MVr Surgeries: 11/13/2013 Myectomy (5gm), MVr with de leon band and valvuloplasty 11/20/2013 Redo Sternotomy MVR (27/29mm OnX) 12/08/13 readmitted for abdominal pain from OSH A/P -Abdominal pain: likely gastroenteritis, resolved -subtherapeutic INR, report that INR WAS 4.5 ans was told to hold coumadin till today then decrease dose from 12.5 to 10 mg, heparin drip for INR <1.8 (TODAY 1.7) coumadin 12.5 mg LFTS improving D/C in am per CTS if INR >2 Atelectasis 11/15/2013 04/29/2020 Overview: On RA, -3.4kg, CXR w/minimal posterior effusions and mild opacity that is most suggestive of atelectasis. Continue PEP/OOB/C&DB. Fluid overload 11/15/2013 11/16/2013 Overview: Pre-op wt 120.7 kg, current wt 129.6. Pt received IVF resuscitation in ICU, upon assessment generalized edema. Will start gentle diuresis with Lasix. Monitor I&O and daily weights. Urethral stricture 11/15/2013 4 Overview: H/O of urethral stricture. Camacho D/C this am. Monitor Urine output. Cardiac insufficiency 11/13/20132013 Overview: RV sluggish post CPB. Improved with Epi. No pa cath in place. Will monitor hemodynamics Stress hyperglycemia 11/13/2013 014 Overview: Accuchecks and SSI Postoperative pain 11/13/2013 4 Overview: 11/21/2013 Pain controlled with Fenanyl BUILDING PERFORMANCE SPECIALIST, Lidoderm, Toradol, and Percocet. Supplement as needed. Hypotension 11/13/2013 11/16/2013 Overview: Filling pressures remain low. Norepi for goal MAP > 65. Cont fluid resuscitation as needed. 11/15/2013 much improved BP after fluid resuscitation in ICU. Will start gentle diuresing and low dose BB and monitor. Pre-op testing 11/01/2013 11/16/2013 Overview: Images from the original note were not included. [facility] Surgeon: Fernando Llanes M.D. Informed Consent Completed:yes CAD: No H & P completed: Yes PA/LAT: Completed CT: Completed MRI: N/A LE US: N/A Cath: Yes - reviewed: Yes Echo:Completed EKG: Completed EF %: 71 PI's: N/A Carotid: N/A Mapping: N/A Dental: Completed PFT's: Completed CBC, Coags, BMP, Mg, Phos Basename 11/19/13 0633 11/18/13 0506 11/17/13 0736 WBC 6.48 5.80 4.42 HB 8.7* 8.1* 7.7* HCT 26.8* 24.2* 23.6* PLT 323 226 169 INR -- -- -- APTT -- -- -- NA 140 138 138 K 4.4 4.2 3.8 CHLOR 102 103 101 CO2 27 25 27 BUN 9* 11 13 CREAT 0.90 0.84 0.83 GLUC 99 108* 102* CA 9.2 9.1 8.5 MG -- -- -- P -- -- -- UA: p HCG:N/A ABO/ABO Confirmed: Yes Blood ordered: Yes 2 SA Swab: Yes - results: positive - treated. Last Dose of Anticoagulation: asa 162 sub q heparin Op Note: yes Pacemaker Check: N/A Consults: none DM: No Cardiac Surgical prep: N/A SIGNATURE: Jackie Jc CNP CHECKED BY: arron DATE of SERVICE: 11/01/2013 TIME of SERVICE: 2:59 PM mwa 11/19 Mitral valve regurgitation 11/01/2013 0 11/16/2013 Overview: s/p MVr 01/201311/13/2013:MV repair with 31 mm De Leon band and valvuloplasty documented as of this encounter (statuses as of 02/23/2023) [facility]04-[facility]2016 History of Past illness Narrative* Problem Noted Date Diagnosed Date Resolved Date Lightheadedness 08/05/2015 04/29/2020 Overview: Differential includes arrhythmia (including block or atrial tach) versus volume- down versus valvular issue such as pannus growing into [facility] mitral valve. Unlikely that his septum has re-hypertrophied. It's unusual that he is having symptoms during my interview while he is in sinus rhythm and with a normal blood pressure, and normal orthostatics. -favor arrhythmia issues versus volume issues (although orthostatic vital signs negative) versus psych -exam suggests a well functioning valve prosthesis -no syncopal events Plan -telemetry -echocardiogram in AM, assess for valve function/thrombus/pannus -consider exercise testing to assess BP and HR response if echo is unrevealing -encouraged po intake -consider loop recorder prior to discharge Stricture, urethra 12/10/2014 0 Subtherapeutic international normalized ratio (INR) 12/08/2013 04/29/2020 Overview: GOAL 2.5-3.5 for mechanical mitral valve Home dose 12.5 but made his INR GO to >4.5 AND WAS TOLD TO STOP COUMADIN FOR 2 DAYS AND 12/08 INR 1.9 RESUME TODAY ON 10 MG 12/09 INR 1.7 heparin drip per CTS at rate 500cc/r goal PTT 50-60 coumadin 12.5 mg 12/10 INR 2 ok to discharge per CTS Will discharge on 12.5 mg dose alternating with 10 mg Abdominal pain 12/08/2013 04/29/2020 Overview: DISSECTION, appendicitis, obstruction and pancreatitis ruled out Likely gastroenteritis Resolving LFTS trending down tolerating regular diet Elevated LFTs 12/08/2013 04/29/2020 Overview: Up from yesterday ++AST, ALT,ALP , MAGNUS normal Goal bladder normal on CT abdomen. Likely reactive Improving Trend off tylenol Epistaxis 11/27/2013 04/29/2020 Overview: Nosebleed x 2 11/27, no further episode today. Discharge on ocean spray tid and afrin prn. If continues to be problematic, discussed ENT for eval. Anemia 11/21/2013 04/29/2020 Overview: H/H 8.1/25.3, stable. Received 1u PRBC 11/23, 2U PRBC 11/22. Discharge on iron. Hypovolemia 11/20/2013 11/22/2013 Overview: 11/20/2013 Low MAP and filling pressures. Replete volume. Pericardial effusion 11/17/2013 014 Overview: History: S/p MVr, myectomy Assessment: small to moderate right pericardial effusion Plan: Having re-op on Wednesday11.20.2013. SUMMARY 11/16/2013 04/29/2020 Overview: Indication for admission/procedure: MR LVEF: Normal RVF: Normal PMH/PSH: MS, HTN, HPL, Sleep apnea (CPAP), Urethral stricture, Depression, 01/2013, LAAL, MVr Surgeries: 11/13/2013 Myectomy (5gm), MVr with de leon band and valvuloplasty 11/20/2013 Redo Sternotomy MVR (27/29mm OnX) 12/08/13 readmitted for abdominal pain from OSH A/P -Abdominal pain: likely gastroenteritis, resolved -subtherapeutic INR, report that INR WAS 4.5 ans was told to hold coumadin till today then decrease dose from 12.5 to 10 mg, heparin drip for INR <1.8 (TODAY 1.7) coumadin 12.5 mg LFTS improving D/C in am per CTS if INR >2 Atelectasis 11/15/2013 04/29/2020 Overview: On RA, -3.4kg, CXR w/minimal posterior effusions and mild opacity that is most suggestive of atelectasis. Continue PEP/OOB/C&DB. Fluid overload 11/15/2013 11/16/2013 Overview: Pre-op wt 120.7 kg, current wt 129.6. Pt received IVF resuscitation in ICU, upon assessment generalized edema. Will start gentle diuresis with Lasix. Monitor I&O and daily weights. Urethral stricture 11/15/2013 4 Overview: H/O of urethral stricture. Camacho D/C this am. Monitor Urine output. Cardiac insufficiency 11/13/20132013 Overview: RV sluggish post CPB. Improved with Epi. No pa cath in place. Will monitor hemodynamics Stress hyperglycemia 11/13/2013 014 Overview: Accuchecks and SSI Postoperative pain 11/13/2013 4 Overview: 11/21/2013 Pain controlled with Fenanyl BUILDING PERFORMANCE SPECIALIST, Lidoderm, Toradol, and Percocet. Supplement as needed. Hypotension 11/13/2013 11/16/2013 Overview: Filling pressures remain low. Norepi for goal MAP > 65. Cont fluid resuscitation as needed. 11/15/2013 much improved BP after fluid resuscitation in ICU. Will start gentle diuresing and low dose BB and monitor. Pre-op testing 11/01/2013 11/16/2013 Overview: Images from the original note were not included. [facility] PRE-[facility] Surgeon: Fernando Llanes M.D. Informed Consent Completed:yes CAD: No H & P completed: Yes PA/LAT: Completed CT: Completed MRI: N/A LE US: N/A Cath: Yes - reviewed: Yes Echo:Completed EKG: Completed EF %: 71 PI's: N/A Carotid: N/A Mapping: N/A Dental: Completed PFT's: Completed CBC, Coags, BMP, Mg, Phos Basename 11/19/13 0633 11/18/13 0506 11/17/13 0736 WBC 6.48 5.80 4.42 HB 8.7* 8.1* 7.7* HCT 26.8* 24.2* 23.6* PLT 323 226 169 INR -- -- -- APTT -- -- -- NA 140 138 138 K 4.4 4.2 3.8 CHLOR 102 103 101 CO2 27 25 27 BUN 9* 11 13 CREAT 0.90 0.84 0.83 GLUC 99 108* 102* CA 9.2 9.1 8.5 MG -- -- -- P -- -- -- UA: p HCG:N/A ABO/ABO Confirmed: Yes Blood ordered: Yes 2 SA Swab: Yes - results: positive - treated. Last Dose of Anticoagulation: asa 162 sub q heparin Op Note: yes Pacemaker Check: N/A Consults: none DM: No Cardiac Surgical prep: N/A SIGNATURE: Jackie Jc CNP CHECKED BY: arron DATE of SERVICE: 11/01/2013 TIME of SERVICE: 2:59 PM mwa 11/19 Mitral valve regurgitation 11/01/2013 0 11/16/2013 Overview: s/p MVr 01/201311/13/2013:MV repair with 31 mm De Leon band and valvuloplasty documented as of this encounter (statuses as of 03/08/2023) [facility]04-[facility]2016 History of Past illness Narrative* Problem Noted Date Diagnosed Date Resolved Date Lightheadedness 08/05/2015 04/29/2020 Overview: Differential includes arrhythmia (including block or atrial tach) versus volume- down versus valvular issue such as pannus growing into [facility] mitral valve. Unlikely that his septum has re-hypertrophied. It's unusual that he is having symptoms during my interview while he is in sinus rhythm and with a normal blood pressure, and normal orthostatics. -favor arrhythmia issues versus volume issues (although orthostatic vital signs negative) versus psych -exam suggests a well functioning valve prosthesis -no syncopal events Plan -telemetry -echocardiogram in AM, assess for valve function/thrombus/pannus -consider exercise testing to assess BP and HR response if echo is unrevealing -encouraged po intake -consider loop recorder prior to discharge Stricture, urethra 12/10/2014 0 Subtherapeutic international normalized ratio (INR) 12/08/2013 04/29/2020 Overview: GOAL 2.5-3.5 for mechanical mitral valve Home dose 12.5 but made his INR GO to >4.5 AND WAS TOLD TO STOP COUMADIN FOR 2 DAYS AND 12/08 INR 1.9 RESUME TODAY ON 10 MG 12/09 INR 1.7 heparin drip per CTS at rate 500cc/r goal PTT 50-60 coumadin 12.5 mg 12/10 INR 2 ok to discharge per CTS Will discharge on 12.5 mg dose alternating with 10 mg Abdominal pain 12/08/2013 04/29/2020 Overview: DISSECTION, appendicitis, obstruction and pancreatitis ruled out Likely gastroenteritis Resolving LFTS trending down tolerating regular diet Elevated LFTs 12/08/2013 04/29/2020 Overview: Up from yesterday ++AST, ALT,ALP , MAGNUS normal Goal bladder normal on CT abdomen. Likely reactive Improving Trend off tylenol Epistaxis 11/27/2013 04/29/2020 Overview: Nosebleed x 2 11/27, no further episode today. Discharge on ocean spray tid and afrin prn. If continues to be problematic, discussed ENT for eval. Anemia 11/21/2013 04/29/2020 Overview: H/H 8.1/25.3, stable. Received 1u PRBC 11/23, 2U PRBC 11/22. Discharge on iron. Hypovolemia 11/20/2013 11/22/2013 Overview: 11/20/2013 Low MAP and filling pressures. Replete volume. Pericardial effusion 11/17/2013 014 Overview: History: S/p MVr, myectomy Assessment: small to moderate right pericardial effusion Plan: Having re-op on Wednesday11.20.2013. SUMMARY 11/16/2013 04/29/2020 Overview: Indication for admission/procedure: MR LVEF: Normal RVF: Normal PMH/PSH: MS, HTN, HPL, Sleep apnea (CPAP), Urethral stricture, Depression, 01/2013, LAAL, MVr Surgeries: 11/13/2013 Myectomy (5gm), MVr with de leon band and valvuloplasty 11/20/2013 Redo Sternotomy MVR (27/29mm OnX) 12/08/13 readmitted for abdominal pain from OSH A/P -Abdominal pain: likely gastroenteritis, resolved -subtherapeutic INR, report that INR WAS 4.5 ans was told to hold coumadin till today then decrease dose from 12.5 to 10 mg, heparin drip for INR <1.8 (TODAY 1.7) coumadin 12.5 mg LFTS improving D/C in am per CTS if INR >2 Atelectasis 11/15/2013 04/29/2020 Overview: On RA, -3.4kg, CXR w/minimal posterior effusions and mild opacity that is most suggestive of atelectasis. Continue PEP/OOB/C&DB. Fluid overload 11/15/2013 11/16/2013 Overview: Pre-op wt 120.7 kg, current wt 129.6. Pt received IVF resuscitation in ICU, upon assessment generalized edema. Will start gentle diuresis with Lasix. Monitor I&O and daily weights. Urethral stricture 11/15/2013 4 Overview: H/O of urethral stricture. Camacho D/C this am. Monitor Urine output. Cardiac insufficiency 11/13/20132013 Overview: RV sluggish post CPB. Improved with Epi. No pa cath in place. Will monitor hemodynamics Stress hyperglycemia 11/13/2013 014 Overview: Accuchecks and SSI Postoperative pain 11/13/2013 4 Overview: 11/21/2013 Pain controlled with Fenanyl BUILDING PERFORMANCE SPECIALIST, Lidoderm, Toradol, and Percocet. Supplement as needed. Hypotension 11/13/2013 11/16/2013 Overview: Filling pressures remain low. Norepi for goal MAP > 65. Cont fluid resuscitation as needed. 11/15/2013 much improved BP after fluid resuscitation in ICU. Will start gentle diuresing and low dose BB and monitor. Pre-op testing 11/01/2013 11/16/2013 Overview: Images from the original note were not included. [facility] Surgeon: Fernando Llanes M.D. Informed Consent Completed:yes CAD: No H & P completed: Yes PA/LAT: Completed CT: Completed MRI: N/A LE US: N/A Cath: Yes - reviewed: Yes Echo:Completed EKG: Completed EF %: 71 PI's: N/A Carotid: N/A Mapping: N/A Dental: Completed PFT's: Completed CBC, Coags, BMP, Mg, Phos Basename 11/19/13 0633 11/18/13 0506 11/17/13 0736 WBC 6.48 5.80 4.42 HB 8.7* 8.1* 7.7* HCT 26.8* 24.2* 23.6* PLT 323 226 169 INR -- -- -- APTT -- -- -- NA 140 138 138 K 4.4 4.2 3.8 CHLOR 102 103 101 CO2 27 25 27 BUN 9* 11 13 CREAT 0.90 0.84 0.83 GLUC 99 108* 102* CA 9.2 9.1 8.5 MG -- -- -- P -- -- -- UA: p HCG:N/A ABO/ABO Confirmed: Yes Blood ordered: Yes 2 SA Swab: Yes - results: positive - treated. Last Dose of Anticoagulation: asa 162 sub q heparin Op Note: yes Pacemaker Check: N/A Consults: none DM: No Cardiac Surgical prep: N/A SIGNATURE: Jackie Jc CNP CHECKED BY: arron DATE of SERVICE: 11/01/2013 TIME of SERVICE: 2:59 PM mwa 11/19 Mitral valve regurgitation 11/01/2013 0 11/16/2013 Overview: s/p MVr 01/201311/13/2013:MV repair with 31 mm De Leon band and valvuloplasty documented as of this encounter (statuses as of 03/08/2023) [facility]04[facility] History of Past illness Narrative* Problem Noted Date Diagnosed Date Resolved Date Lightheadedness 08/05/2015 04/29/2020 Overview: Differential includes arrhythmia (including block or atrial tach) versus volume- down versus valvular issue such as pannus growing into [facility] mitral valve. Unlikely that his septum has re-hypertrophied. It's unusual that he is having symptoms during my interview while he is in sinus rhythm and with a normal blood pressure, and normal orthostatics. -favor arrhythmia issues versus volume issues (although orthostatic vital signs negative) versus psych -exam suggests a well functioning valve prosthesis -no syncopal events Plan -telemetry -echocardiogram in AM, assess for valve function/thrombus/pannus -consider exercise testing to assess BP and HR response if echo is unrevealing -encouraged po intake -consider loop recorder prior to discharge Stricture, urethra 12/10/2014 0 Subtherapeutic international normalized ratio (INR) 12/08/2013 04/29/2020 Overview: GOAL 2.5-3.5 for mechanical mitral valve Home dose 12.5 but made his INR GO to >4.5 AND WAS TOLD TO STOP COUMADIN FOR 2 DAYS AND 12/08 INR 1.9 RESUME TODAY ON 10 MG 12/09 INR 1.7 heparin drip per CTS at rate 500cc/r goal PTT 50-60 coumadin 12.5 mg 12/10 INR 2 ok to discharge per CTS Will discharge on 12.5 mg dose alternating with 10 mg Abdominal pain 12/08/2013 04/29/2020 Overview: DISSECTION, appendicitis, obstruction and pancreatitis ruled out Likely gastroenteritis Resolving LFTS trending down tolerating regular diet Elevated LFTs 12/08/2013 04/29/2020 Overview: Up from yesterday ++AST, ALT,ALP , MAGNUS normal Goal bladder normal on CT abdomen. Likely reactive Improving Trend off tylenol Epistaxis 11/27/2013 04/29/2020 Overview: Nosebleed x 2 11/27, no further episode today. Discharge on ocean spray tid and afrin prn. If continues to be problematic, discussed ENT for eval. Anemia 11/21/2013 04/29/2020 Overview: H/H 8.1/25.3, stable. Received 1u PRBC 11/23, 2U PRBC 11/22. Discharge on iron. Hypovolemia 11/20/2013 11/22/2013 Overview: 11/20/2013 Low MAP and filling pressures. Replete volume. Pericardial effusion 11/17/2013 014 Overview: History: S/p MVr, myectomy Assessment: small to moderate right pericardial effusion Plan: Having re-op on Wednesday11.20.2013. SUMMARY 11/16/2013 04/29/2020 Overview: Indication for admission/procedure: MR LVEF: Normal RVF: Normal PMH/PSH: MS, HTN, HPL, Sleep apnea (CPAP), Urethral stricture, Depression, 01/2013, LAAL, MVr Surgeries: 11/13/2013 Myectomy (5gm), MVr with de leon band and valvuloplasty 11/20/2013 Redo Sternotomy MVR (27/29mm OnX) 12/08/13 readmitted for abdominal pain from OSH A/P -Abdominal pain: likely gastroenteritis, resolved -subtherapeutic INR, report that INR WAS 4.5 ans was told to hold coumadin till today then decrease dose from 12.5 to 10 mg, heparin drip for INR <1.8 (TODAY 1.7) coumadin 12.5 mg LFTS improving D/C in am per CTS if INR >2 Atelectasis 11/15/2013 04/29/2020 Overview: On RA, -3.4kg, CXR w/minimal posterior effusions and mild opacity that is most suggestive of atelectasis. Continue PEP/OOB/C&DB. Fluid overload 11/15/2013 11/16/2013 Overview: Pre-op wt 120.7 kg, current wt 129.6. Pt received IVF resuscitation in ICU, upon assessment generalized edema. Will start gentle diuresis with Lasix. Monitor I&O and daily weights. Urethral stricture 11/15/2013 4 Overview: H/O of urethral stricture. Camacho D/C this am. Monitor Urine output. Cardiac insufficiency 11/13/20132013 Overview: RV sluggish post CPB. Improved with Epi. No pa cath in place. Will monitor hemodynamics Stress hyperglycemia 11/13/2013 014 Overview: Accuchecks and SSI Postoperative pain 11/13/2013 4 Overview: 11/21/2013 Pain controlled with Fenanyl BUILDING PERFORMANCE SPECIALIST, Lidoderm, Toradol, and Percocet. Supplement as needed. Hypotension 11/13/2013 11/16/2013 Overview: Filling pressures remain low. Norepi for goal MAP > 65. Cont fluid resuscitation as needed. 11/15/2013 much improved BP after fluid resuscitation in ICU. Will start gentle diuresing and low dose BB and monitor. Pre-op testing 11/01/2013 11/16/2013 Overview: Images from the original note were not included. [facility] Surgeon: Edward Soltesz, M.D. Informed Consent Completed:yes CAD: No H & P completed: Yes PA/LAT: Completed CT: Completed MRI: N/A LE US: N/A Cath: Yes - reviewed: Yes Echo:Completed EKG: Completed EF %: 71 PI's: N/A Carotid: N/A Mapping: N/A Dental: Completed PFT's: Completed CBC, Coags, BMP, Mg, Phos Basename 11/19/13 0633 11/18/13 0506 11/17/13 0736 WBC 6.48 5.80 4.42 HB 8.7* 8.1* 7.7* HCT 26.8* 24.2* 23.6* PLT 323 226 169 INR -- -- -- APTT -- -- -- NA 140 138 138 K 4.4 4.2 3.8 CHLOR 102 103 101 CO2 27 25 27 BUN 9* 11 13 CREAT 0.90 0.84 0.83 GLUC 99 108* 102* CA 9.2 9.1 8.5 MG -- -- -- P -- -- -- UA: p HCG:N/A ABO/ABO Confirmed: Yes Blood ordered: Yes 2 SA Swab: Yes - results: positive - treated. Last Dose of Anticoagulation: asa 162 sub q heparin Op Note: yes Pacemaker Check: N/A Consults: none DM: No Cardiac Surgical prep: N/A SIGNATURE: Jackie Jc CNP CHECKED BY: arron DATE of SERVICE: 11/01/2013 TIME of SERVICE: 2:59 PM mwa 11/19 Mitral valve regurgitation 11/01/2013 0 11/16/2013 Overview: s/p MVr 01/201311/13/2013:MV repair with 31 mm De Leon band and valvuloplasty documented as of this encounter (statuses as of 03/17/2023) [facility]04-04-2016 History of Past illness Narrative* Problem Noted Date Diagnosed Date Resolved Date Lightheadedness 08/05/2015 04/29/2020 Overview: Differential includes arrhythmia (including block or atrial tach) versus volume- down versus valvular issue such as pannus [facility]. Unlikely that his septum has re-hypertrophied. It's unusual that he is having symptoms during my interview while he is in sinus rhythm and with a normal blood pressure, and normal orthostatics. -favor arrhythmia issues versus volume issues (although orthostatic vital signs negative) versus psych -exam suggests a well functioning valve prosthesis -no syncopal events Plan -telemetry -echocardiogram in AM, assess for valve function/thrombus/pannus -consider exercise testing to assess BP and HR response if echo is unrevealing -encouraged po intake -consider loop recorder prior to discharge Stricture, urethra 12/10/2014 0 Subtherapeutic international normalized ratio (INR) 12/08/2013 04/29/2020 Overview: GOAL 2.5-3.5 for mechanical mitral valve Home dose 12.5 but made his INR GO to >4.5 AND WAS TOLD TO STOP COUMADIN FOR 2 DAYS AND 12/08 INR 1.9 RESUME TODAY ON 10 MG 12/09 INR 1.7 heparin drip per CTS at rate 500cc/r goal PTT 50-60 coumadin 12.5 mg 12/10 INR 2 ok to discharge per CTS Will discharge on 12.5 mg dose alternating with 10 mg Abdominal pain 12/08/2013 04/29/2020 Overview: DISSECTION, appendicitis, obstruction and pancreatitis ruled out Likely gastroenteritis Resolving LFTS trending down tolerating regular diet Elevated LFTs 12/08/2013 04/29/2020 Overview: Up from yesterday ++AST, ALT,ALP , MAGNUS normal Goal bladder normal on CT abdomen. Likely reactive Improving Trend off tylenol Epistaxis 11/27/2013 04/29/2020 Overview: Nosebleed x 2 11/27, no further episode today. Discharge on ocean spray tid and afrin prn. If continues to be problematic, discussed ENT for eval. Anemia 11/21/2013 04/29/2020 Overview: H/H 8.1/25.3, stable. Received 1u PRBC 11/23, 2U PRBC 11/22. Discharge on iron. Hypovolemia 11/20/2013 11/22/2013 Overview: 11/20/2013 Low MAP and filling pressures. Replete volume. Pericardial effusion 11/17/2013 014 Overview: History: S/p MVr, myectomy Assessment: small to moderate right pericardial effusion Plan: Having re-op on Wednesday11.20.2013. SUMMARY 11/16/2013 04/29/2020 Overview: Indication for admission/procedure: MR LVEF: Normal RVF: Normal PMH/PSH: MS, HTN, HPL, Sleep apnea (CPAP), Urethral stricture, Depression, 01/2013, LAAL, MVr Surgeries: 11/13/2013 Myectomy (5gm), MVr with de leon band and valvuloplasty 11/20/2013 Redo Sternotomy MVR (27/29mm OnX) 12/08/13 readmitted for abdominal pain from OSH A/P -Abdominal pain: likely gastroenteritis, resolved -subtherapeutic INR, report that INR WAS 4.5 ans was told to hold coumadin till today then decrease dose from 12.5 to 10 mg, heparin drip for INR <1.8 (TODAY 1.7) coumadin 12.5 mg LFTS improving D/C in am per CTS if INR >2 Atelectasis 11/15/2013 04/29/2020 Overview: On RA, -3.4kg, CXR w/minimal posterior effusions and mild opacity that is most suggestive of atelectasis. Continue PEP/OOB/C&DB. Fluid overload 11/15/2013 11/16/2013 Overview: Pre-op wt 120.7 kg, current wt 129.6. Pt received IVF resuscitation in ICU, upon assessment generalized edema. Will start gentle diuresis with Lasix. Monitor I&O and daily weights. Urethral stricture 11/15/2013 4 Overview: H/O of urethral stricture. Camacho D/C this am. Monitor Urine output. Cardiac insufficiency 11/13/20132013 Overview: RV sluggish post CPB. Improved with Epi. No pa cath in place. Will monitor hemodynamics Stress hyperglycemia 11/13/2013 014 Overview: Accuchecks and SSI Postoperative pain 11/13/2013 4 Overview: 11/21/2013 Pain controlled with Fenanyl BUILDING PERFORMANCE SPECIALIST, Lidoderm, Toradol, and Percocet. Supplement as needed. Hypotension 11/13/2013 11/16/2013 Overview: Filling pressures remain low. Norepi for goal MAP > 65. Cont fluid resuscitation as needed. 11/15/2013 much improved BP after fluid resuscitation in ICU. Will start gentle diuresing and low dose BB and monitor. Pre-op testing 11/01/2013 11/16/2013 Overview: Images from the original note were not included. [facility] Surgeon: Fernando Llanes M.D. Informed Consent Completed:yes CAD: No H & P completed: Yes PA/LAT: Completed CT: Completed MRI: N/A LE US: N/A Cath: Yes - reviewed: Yes Echo:Completed EKG: Completed EF %: 71 PI's: N/A Carotid: N/A Mapping: N/A Dental: Completed PFT's: Completed CBC, Coags, BMP, Mg, Phos Basename 11/19/13 0633 11/18/13 0506 11/17/13 0736 WBC 6.48 5.80 4.42 HB 8.7* 8.1* 7.7* HCT 26.8* 24.2* 23.6* PLT 323 226 169 INR -- -- -- APTT -- -- -- NA 140 138 138 K 4.4 4.2 3.8 CHLOR 102 103 101 CO2 27 25 27 BUN 9* 11 13 CREAT 0.90 0.84 0.83 GLUC 99 108* 102* CA 9.2 9.1 8.5 MG -- -- -- P -- -- -- UA: p HCG:N/A ABO/ABO Confirmed: Yes Blood ordered: Yes 2 SA Swab: Yes - results: positive - treated. Last Dose of Anticoagulation: asa 162 sub q heparin Op Note: yes Pacemaker Check: N/A Consults: none DM: No Cardiac Surgical prep: N/A SIGNATURE: Jackie Jc CNP CHECKED BY: arron DATE of SERVICE: 11/01/2013 TIME of SERVICE: 2:59 PM mwa 11/19 Mitral valve regurgitation 11/01/2013 0 11/16/2013 Overview: s/p MVr 01/201311/13/2013:MV repair with 31 mm De Leon band and valvuloplasty documented as of this encounter (statuses as of 04/13/2023) [facility]04-[facility]2016 History of Past illness Narrative* Problem Noted Date Diagnosed Date Resolved Date Lightheadedness 08/05/2015 04/29/2020 Overview: Differential includes arrhythmia (including block or atrial tach) versus volume- down versus valvular issue such as pannus growing into [facility]. Unlikely that his septum has re-hypertrophied. It's unusual that he is having symptoms during my interview while he is in sinus rhythm and with a normal blood pressure, and normal orthostatics. -favor arrhythmia issues versus volume issues (although orthostatic vital signs negative) versus psych -exam suggests a well functioning valve prosthesis -no syncopal events Plan -telemetry -echocardiogram in AM, assess for valve function/thrombus/pannus -consider exercise testing to assess BP and HR response if echo is unrevealing -encouraged po intake -consider loop recorder prior to discharge Stricture, urethra 12/10/2014 0 Subtherapeutic international normalized ratio (INR) 12/08/2013 04/29/2020 Overview: GOAL 2.5-3.5 for mechanical mitral valve Home dose 12.5 but made his INR GO to >4.5 AND WAS TOLD TO STOP COUMADIN FOR 2 DAYS AND 12/08 INR 1.9 RESUME TODAY ON 10 MG / INR 1.7 heparin drip per CTS at rate 500cc/r goal PTT 50-60 coumadin 12.5 mg 12/10 INR 2 ok to discharge per CTS Will discharge on 12.5 mg dose alternating with 10 mg Abdominal pain 12/08/2013 04/29/2020 Overview: DISSECTION, appendicitis, obstruction and pancreatitis ruled out Likely gastroenteritis Resolving LFTS trending down tolerating regular diet Elevated LFTs 12/08/2013 04/29/2020 Overview: Up from yesterday ++AST, ALT,ALP , MAGNUS normal Goal bladder normal on CT abdomen. Likely reactive Improving Trend off tylenol Epistaxis 11/27/2013 04/29/2020 Overview: Nosebleed x 2 11/27, no further episode today. Discharge on ocean spray tid and afrin prn. If continues to be problematic, discussed ENT for eval. Anemia 11/21/2013 04/29/2020 Overview: H/H 8.1/25.3, stable. Received 1u PRBC 11/23, 2U PRBC 11/22. Discharge on iron. Hypovolemia 11/20/2013 11/22/2013 Overview: 11/20/2013 Low MAP and filling pressures. Replete volume. Pericardial effusion 11/17/2013 014 Overview: History: S/p MVr, myectomy Assessment: small to moderate right pericardial effusion Plan: Having re-op on Wednesday11.20.2013. SUMMARY 11/16/2013 04/29/2020 Overview: Indication for admission/procedure: MR LVEF: Normal RVF: Normal PMH/PSH: MS, HTN, HPL, Sleep apnea (CPAP), Urethral stricture, Depression, 01/2013, LAAL, MVr Surgeries: 11/13/2013 Myectomy (5gm), MVr with de leon band and valvuloplasty 11/20/2013 Redo Sternotomy MVR (27/29mm OnX) 12/08/13 readmitted for abdominal pain from OSH A/P -Abdominal pain: likely gastroenteritis, resolved -subtherapeutic INR, report that INR WAS 4.5 ans was told to hold coumadin till today then decrease dose from 12.5 to 10 mg, heparin drip for INR <1.8 (TODAY 1.7) coumadin 12.5 mg LFTS improving D/C in am per CTS if INR >2 Atelectasis 11/15/2013 04/29/2020 Overview: On RA, -3.4kg, CXR w/minimal posterior effusions and mild opacity that is most suggestive of atelectasis. Continue PEP/OOB/C&DB. Fluid overload 11/15/2013 11/16/2013 Overview: Pre-op wt 120.7 kg, current wt 129.6. Pt received IVF resuscitation in ICU, upon assessment generalized edema. Will start gentle diuresis with Lasix. Monitor I&O and daily weights. Urethral stricture 11/15/2013 4 Overview: H/O of urethral stricture. Camacho D/C this am. Monitor Urine output. Cardiac insufficiency 11/13/20132013 Overview: RV sluggish post CPB. Improved with Epi. No pa cath in place. Will monitor hemodynamics Stress hyperglycemia 11/13/2013 014 Overview: Accuchecks and SSI Postoperative pain 11/13/2013 4 Overview: 11/21/2013 Pain controlled with Fenanyl BUILDING PERFORMANCE SPECIALIST, Lidoderm, Toradol, and Percocet. Supplement as needed. Hypotension 11/13/2013 11/16/2013 Overview: Filling pressures remain low. Norepi for goal MAP > 65. Cont fluid resuscitation as needed. 11/15/2013 much improved BP after fluid resuscitation in ICU. Will start gentle diuresing and low dose BB and monitor. Pre-op testing 11/01/2013 11/16/2013 Overview: Images from the original note were not included. [facility] PRE[facility] Surgeon: Fernando Llanes M.D. Informed Consent Completed:yes CAD: No H & P completed: Yes PA/LAT: Completed CT: Completed MRI: N/A LE US: N/A Cath: Yes - reviewed: Yes Echo:Completed EKG: Completed EF %: 71 PI's: N/A Carotid: N/A Mapping: N/A Dental: Completed PFT's: Completed CBC, Coags, BMP, Mg, Phos Basename 11/19/13 0633 11/18/13 0506 11/17/13 0736 WBC 6.48 5.80 4.42 HB 8.7* 8.1* 7.7* HCT 26.8* 24.2* 23.6* PLT 323 226 169 INR -- -- -- APTT -- -- -- NA 140 138 138 K 4.4 4.2 3.8 CHLOR 102 103 101 CO2 27 25 27 BUN 9* 11 13 CREAT 0.90 0.84 0.83 GLUC 99 108* 102* CA 9.2 9.1 8.5 MG -- -- -- P -- -- -- UA: p HCG:N/A ABO/ABO Confirmed: Yes Blood ordered: Yes 2 SA Swab: Yes - results: positive - treated. Last Dose of Anticoagulation: asa 162 sub q heparin Op Note: yes Pacemaker Check: N/A Consults: none DM: No Cardiac Surgical prep: N/A SIGNATURE: Jackie Jc CNP CHECKED BY: arron DATE of SERVICE: 11/01/2013 TIME of SERVICE: 2:59 PM mwa 11/19 Mitral valve regurgitation 11/01/2013 0 11/16/2013 Overview: s/p MVr 01/201311/13/2013:MV repair with 31 mm De Leon band and valvuloplasty documented as of this encounter (statuses as of 04/21/2023) [facility]04-[facility] History of Past illness Narrative* Problem Noted Date Diagnosed Date Resolved Date Lightheadedness 08/05/2015 04/29/2020 Overview: Differential includes arrhythmia (including block or atrial tach) versus volume- down versus valvular issue such as pannus growing into [facility]. Unlikely that his septum has re-hypertrophied. It's unusual that he is having symptoms during my interview while he is in sinus rhythm and with a normal blood pressure, and normal orthostatics. -favor arrhythmia issues versus volume issues (although orthostatic vital signs negative) versus psych -exam suggests a well functioning valve prosthesis -no syncopal events Plan -telemetry -echocardiogram in AM, assess for valve function/thrombus/pannus -consider exercise testing to assess BP and HR response if echo is unrevealing -encouraged po intake -consider loop recorder prior to discharge Stricture, urethra 12/10/2014 0 Subtherapeutic international normalized ratio (INR) 12/08/2013 04/29/2020 Overview: GOAL 2.5-3.5 for mechanical mitral valve Home dose 12.5 but made his INR GO to >4.5 AND WAS TOLD TO STOP COUMADIN FOR 2 DAYS AND 12/08 INR 1.9 RESUME TODAY ON 10 MG 12/09 INR 1.7 heparin drip per CTS at rate 500cc/r goal PTT 50-60 coumadin 12.5 mg 12/10 INR 2 ok to discharge per CTS Will discharge on 12.5 mg dose alternating with 10 mg Abdominal pain 12/08/2013 04/29/2020 Overview: DISSECTION, appendicitis, obstruction and pancreatitis ruled out Likely gastroenteritis Resolving LFTS trending down tolerating regular diet Elevated LFTs 12/08/2013 04/29/2020 Overview: Up from yesterday ++AST, ALT,ALP , MAGNUS normal Goal bladder normal on CT abdomen. Likely reactive Improving Trend off tylenol Epistaxis 11/27/2013 04/29/2020 Overview: Nosebleed x 2 11/27, no further episode today. Discharge on ocean spray tid and afrin prn. If continues to be problematic, discussed ENT for eval. Anemia 11/21/2013 04/29/2020 Overview: H/H 8.1/25.3, stable. Received 1u PRBC 11/23, 2U PRBC 11/22. Discharge on iron. Hypovolemia 11/20/2013 11/22/2013 Overview: 11/20/2013 Low MAP and filling pressures. Replete volume. Pericardial effusion 11/17/2013 014 Overview: History: S/p MVr, myectomy Assessment: small to moderate right pericardial effusion Plan: Having re-op on Wednesday11.20.2013. SUMMARY 11/16/2013 04/29/2020 Overview: Indication for admission/procedure: MR LVEF: Normal RVF: Normal PMH/PSH: MS, HTN, HPL, Sleep apnea (CPAP), Urethral stricture, Depression, 01/2013, LAAL, MVr Surgeries: 11/13/2013 Myectomy (5gm), MVr with de leon band and valvuloplasty 11/20/2013 Redo Sternotomy MVR (27/29mm OnX) 12/08/13 readmitted for abdominal pain from OSH A/P -Abdominal pain: likely gastroenteritis, resolved -subtherapeutic INR, report that INR WAS 4.5 ans was told to hold coumadin till today then decrease dose from 12.5 to 10 mg, heparin drip for INR <1.8 (TODAY 1.7) coumadin 12.5 mg LFTS improving D/C in am per CTS if INR >2 Atelectasis 11/15/2013 04/29/2020 Overview: On RA, -3.4kg, CXR w/minimal posterior effusions and mild opacity that is most suggestive of atelectasis. Continue PEP/OOB/C&DB. Fluid overload 11/15/2013 11/16/2013 Overview: Pre-op wt 120.7 kg, current wt 129.6. Pt received IVF resuscitation in ICU, upon assessment generalized edema. Will start gentle diuresis with Lasix. Monitor I&O and daily weights. Urethral stricture 11/15/2013 4 Overview: H/O of urethral stricture. Camacho D/C this am. Monitor Urine output. Cardiac insufficiency 11/13/20132013 Overview: RV sluggish post CPB. Improved with Epi. No pa cath in place. Will monitor hemodynamics Stress hyperglycemia 11/13/2013 014 Overview: Accuchecks and SSI Postoperative pain 11/13/2013 4 Overview: 11/21/2013 Pain controlled with Fenanyl BUILDING PERFORMANCE SPECIALIST, Lidoderm, Toradol, and Percocet. Supplement as needed. Hypotension 11/13/2013 11/16/2013 Overview: Filling pressures remain low. Norepi for goal MAP > 65. Cont fluid resuscitation as needed. 11/15/2013 much improved BP after fluid resuscitation in ICU. Will start gentle diuresing and low dose BB and monitor. Pre-op testing 11/01/2013 11/16/2013 Overview: Images from the original note were not included. [facility] PRE-OP CHECK[facility] Surgeon: Fernando Llanes M.D. Informed Consent Completed:yes CAD: No H & P completed: Yes PA/LAT: Completed CT: Completed MRI: N/A LE US: N/A Cath: Yes - reviewed: Yes Echo:Completed EKG: Completed EF %: 71 PI's: N/A Carotid: N/A Mapping: N/A Dental: Completed PFT's: Completed CBC, Coags, BMP, Mg, Phos Basename 11/19/13 0633 11/18/13 0506 11/17/13 0736 WBC 6.48 5.80 4.42 HB 8.7* 8.1* 7.7* HCT 26.8* 24.2* 23.6* PLT 323 226 169 INR -- -- -- APTT -- -- -- NA 140 138 138 K 4.4 4.2 3.8 CHLOR 102 103 101 CO2 27 25 27 BUN 9* 11 13 CREAT 0.90 0.84 0.83 GLUC 99 108* 102* CA 9.2 9.1 8.5 MG -- -- -- P -- -- -- UA: p HCG:N/A ABO/ABO Confirmed: Yes Blood ordered: Yes 2 SA Swab: Yes - results: positive - treated. Last Dose of Anticoagulation: asa 162 sub q heparin Op Note: yes Pacemaker Check: N/A Consults: none DM: No Cardiac Surgical prep: N/A SIGNATURE: Jackie Jc CNP CHECKED BY: arron DATE of SERVICE: 11/01/2013 TIME of SERVICE: 2:59 PM mwa 11/19 Mitral valve regurgitation 11/01/2013 0 11/16/2013 Overview: s/p MVr 01/201311/13/2013:MV repair with 31 mm De Leon band and valvuloplasty documented as of this encounter (statuses as of 06/15/2023) [facility] History of Past illness Narrative* Problem Noted Date Diagnosed Date Resolved Date Lightheadedness 08/05/2015 04/29/2020 Overview: Differential includes arrhythmia (including block or atrial tach) versus volume- down versus valvular issue such as pannus growing into [facility] mitral valve. Unlikely that his septum has re-hypertrophied. It's unusual that he is having symptoms during my interview while he is in sinus rhythm and with a normal blood pressure, and normal orthostatics. -favor arrhythmia issues versus volume issues (although orthostatic vital signs negative) versus psych -exam suggests a well functioning valve prosthesis -no syncopal events Plan -telemetry -echocardiogram in AM, assess for valve function/thrombus/pannus -consider exercise testing to assess BP and HR response if echo is unrevealing -encouraged po intake -consider loop recorder prior to discharge Stricture, urethra 12/10/2014 0 Subtherapeutic international normalized ratio (INR) 12/08/2013 04/29/2020 Overview: GOAL 2.5-3.5 for mechanical mitral valve Home dose 12.5 but made his INR GO to >4.5 AND WAS TOLD TO STOP COUMADIN FOR 2 DAYS AND 12/08 INR 1.9 RESUME TODAY ON 10 MG / INR 1.7 heparin drip per CTS at rate 500cc/r goal PTT 50-60 coumadin 12.5 mg 12/10 INR 2 ok to discharge per CTS Will discharge on 12.5 mg dose alternating with 10 mg Abdominal pain 12/08/2013 04/29/2020 Overview: DISSECTION, appendicitis, obstruction and pancreatitis ruled out Likely gastroenteritis Resolving LFTS trending down tolerating regular diet Elevated LFTs 12/08/2013 04/29/2020 Overview: Up from yesterday ++AST, ALT,ALP , MAGNUS normal Goal bladder normal on CT abdomen. Likely reactive Improving Trend off tylenol Epistaxis 11/27/2013 04/29/2020 Overview: Nosebleed x 2 11/27, no further episode today. Discharge on ocean spray tid and afrin prn. If continues to be problematic, discussed ENT for eval. Anemia 11/21/2013 04/29/2020 Overview: H/H 8.1/25.3, stable. Received 1u PRBC 11/23, 2U PRBC 11/22. Discharge on iron. Hypovolemia 11/20/2013 11/22/2013 Overview: 11/20/2013 Low MAP and filling pressures. Replete volume. Pericardial effusion 11/17/2013 014 Overview: History: S/p MVr, myectomy Assessment: small to moderate right pericardial effusion Plan: Having re-op on Wednesday11.20.2013. SUMMARY 11/16/2013 04/29/2020 Overview: Indication for admission/procedure: MR LVEF: Normal RVF: Normal PMH/PSH: MS, HTN, HPL, Sleep apnea (CPAP), Urethral stricture, Depression, 01/2013, LAAL, MVr Surgeries: 11/13/2013 Myectomy (5gm), MVr with de leon band and valvuloplasty 11/20/2013 Redo Sternotomy MVR (27/29mm OnX) 12/08/13 readmitted for abdominal pain from OSH A/P -Abdominal pain: likely gastroenteritis, resolved -subtherapeutic INR, report that INR WAS 4.5 ans was told to hold coumadin till today then decrease dose from 12.5 to 10 mg, heparin drip for INR <1.8 (TODAY 1.7) coumadin 12.5 mg LFTS improving D/C in am per CTS if INR >2 Atelectasis 11/15/2013 04/29/2020 Overview: On RA, -3.4kg, CXR w/minimal posterior effusions and mild opacity that is most suggestive of atelectasis. Continue PEP/OOB/C&DB. Fluid overload 11/15/2013 11/16/2013 Overview: Pre-op wt 120.7 kg, current wt 129.6. Pt received IVF resuscitation in ICU, upon assessment generalized edema. Will start gentle diuresis with Lasix. Monitor I&O and daily weights. Urethral stricture 11/15/2013 4 Overview: H/O of urethral stricture. Camacho D/C this am. Monitor Urine output. Cardiac insufficiency 11/13/20132013 Overview: RV sluggish post CPB. Improved with Epi. No pa cath in place. Will monitor hemodynamics Stress hyperglycemia 11/13/2013 014 Overview: Accuchecks and SSI Postoperative pain 11/13/2013 4 Overview: 11/21/2013 Pain controlled with Fenanyl BUILDING PERFORMANCE SPECIALIST, Lidoderm, Toradol, and Percocet. Supplement as needed. Hypotension 11/13/2013 11/16/2013 Overview: Filling pressures remain low. Norepi for goal MAP > 65. Cont fluid resuscitation as needed. 11/15/2013 much improved BP after fluid resuscitation in ICU. Will start gentle diuresing and low dose BB and monitor. Pre-op testing 11/01/2013 11/16/2013 Overview: Images from the original note were not included. [facility] PRE-OP CHECKLIST Surgeon: Fernando Llanes M.D. Informed Consent Completed:yes CAD: No H & P completed: Yes PA/LAT: Completed CT: Completed MRI: N/A LE US: N/A Cath: Yes - reviewed: Yes Echo:Completed EKG: Completed EF %: 71 PI's: N/A Carotid: N/A Mapping: N/A Dental: Completed PFT's: Completed CBC, Coags, BMP, Mg, Phos Basename 11/19/13 0633 11/18/13 0506 11/17/13 0736 WBC 6.48 5.80 4.42 HB 8.7* 8.1* 7.7* HCT 26.8* 24.2* 23.6* PLT 323 226 169 INR -- -- -- APTT -- -- -- NA 140 138 138 K 4.4 4.2 3.8 CHLOR 102 103 101 CO2 27 25 27 BUN 9* 11 13 CREAT 0.90 0.84 0.83 GLUC 99 108* 102* CA 9.2 9.1 8.5 MG -- -- -- P -- -- -- UA: p HCG:N/A ABO/ABO Confirmed: Yes Blood ordered: Yes 2 SA Swab: Yes - results: positive - treated. Last Dose of Anticoagulation: asa 162 sub q heparin Op Note: yes Pacemaker Check: N/A Consults: none DM: No Cardiac Surgical prep: N/A SIGNATURE: Jackie Jc CNP CHECKED BY: arron DATE of SERVICE: 11/01/2013 TIME of SERVICE: 2:59 PM mwa 11/19 Mitral valve regurgitation 11/01/2013 0 11/16/2013 Overview: s/p MVr 01/201311/13/2013:MV repair with 31 mm De Leon band and valvuloplasty documented as of this encounter (statuses as of 06/29/2023) [facility] History of Past illness Narrative* Problem Noted Date Diagnosed Date Resolved Date Lightheadedness 08/05/2015 04/29/2020 Overview: Differential includes arrhythmia (including block or atrial tach) versus volume- down versus valvular issue such as pannus growing into [facility] mitral valve. Unlikely that his septum has re-hypertrophied. It's unusual that he is having symptoms during my interview while he is in sinus rhythm and with a normal blood pressure, and normal orthostatics. -favor arrhythmia issues versus volume issues (although orthostatic vital signs negative) versus psych -exam suggests a well functioning valve prosthesis -no syncopal events Plan -telemetry -echocardiogram in AM, assess for valve function/thrombus/pannus -consider exercise testing to assess BP and HR response if echo is unrevealing -encouraged po intake -consider loop recorder prior to discharge Stricture, urethra 12/10/2014 0 Subtherapeutic international normalized ratio (INR) 12/08/2013 04/29/2020 Overview: GOAL 2.5-3.5 for mechanical mitral valve Home dose 12.5 but made his INR GO to >4.5 AND WAS TOLD TO STOP COUMADIN FOR 2 DAYS AND 12/08 INR 1.9 RESUME TODAY ON 10 MG 12/09 INR 1.7 heparin drip per CTS at rate 500cc/r goal PTT 50-60 coumadin 12.5 mg 12/10 INR 2 ok to discharge per CTS Will discharge on 12.5 mg dose alternating with 10 mg Abdominal pain 12/08/2013 04/29/2020 Overview: DISSECTION, appendicitis, obstruction and pancreatitis ruled out Likely gastroenteritis Resolving LFTS trending down tolerating regular diet Elevated LFTs 12/08/2013 04/29/2020 Overview: Up from yesterday ++AST, ALT,ALP , MAGNUS normal Goal bladder normal on CT abdomen. Likely reactive Improving Trend off tylenol Epistaxis 11/27/2013 04/29/2020 Overview: Nosebleed x 2 11/27, no further episode today. Discharge on ocean spray tid and afrin prn. If continues to be problematic, discussed ENT for eval. Anemia 11/21/2013 04/29/2020 Overview: H/H 8.1/25.3, stable. Received 1u PRBC 11/23, 2U PRBC 11/22. Discharge on iron. Hypovolemia 11/20/2013 11/22/2013 Overview: 11/20/2013 Low MAP and filling pressures. Replete volume. Pericardial effusion 11/17/2013 014 Overview: History: S/p MVr, myectomy Assessment: small to moderate right pericardial effusion Plan: Having re-op on Wednesday11.20.2013. SUMMARY 11/16/2013 04/29/2020 Overview: Indication for admission/procedure: MR LVEF: Normal RVF: Normal PMH/PSH: MS, HTN, HPL, Sleep apnea (CPAP), Urethral stricture, Depression, 01/2013, LAAL, MVr Surgeries: 11/13/2013 Myectomy (5gm), MVr with de leon band and valvuloplasty 11/20/2013 Redo Sternotomy MVR (27/29mm OnX) 12/08/13 readmitted for abdominal pain from OSH A/P -Abdominal pain: likely gastroenteritis, resolved -subtherapeutic INR, report that INR WAS 4.5 ans was told to hold coumadin till today then decrease dose from 12.5 to 10 mg, heparin drip for INR <1.8 (TODAY 1.7) coumadin 12.5 mg LFTS improving D/C in am per CTS if INR >2 Atelectasis 11/15/2013 04/29/2020 Overview: On RA, -3.4kg, CXR w/minimal posterior effusions and mild opacity that is most suggestive of atelectasis. Continue PEP/OOB/C&DB. Fluid overload 11/15/2013 11/16/2013 Overview: Pre-op wt 120.7 kg, current wt 129.6. Pt received IVF resuscitation in ICU, upon assessment generalized edema. Will start gentle diuresis with Lasix. Monitor I&O and daily weights. Urethral stricture 11/15/2013 4 Overview: H/O of urethral stricture. Camacho D/C this am. Monitor Urine output. Cardiac insufficiency 11/13/20132013 Overview: RV sluggish post CPB. Improved with Epi. No pa cath in place. Will monitor hemodynamics Stress hyperglycemia 11/13/2013 014 Overview: Accuchecks and SSI Postoperative pain 11/13/2013 4 Overview: 11/21/2013 Pain controlled with Fenanyl BUILDING PERFORMANCE SPECIALIST, Lidoderm, Toradol, and Percocet. Supplement as needed. Hypotension 11/13/2013 11/16/2013 Overview: Filling pressures remain low. Norepi for goal MAP > 65. Cont fluid resuscitation as needed. 11/15/2013 much improved BP after fluid resuscitation in ICU. Will start gentle diuresing and low dose BB and monitor. Pre-op testing 11/01/2013 11/16/2013 Overview: Images from the original note were not included. [facility] PRE[facility] Surgeon: Fernando Llanes M.D. Informed Consent Completed:yes CAD: No H & P completed: Yes PA/LAT: Completed CT: Completed MRI: N/A LE US: N/A Cath: Yes - reviewed: Yes Echo:Completed EKG: Completed EF %: 71 PI's: N/A Carotid: N/A Mapping: N/A Dental: Completed PFT's: Completed CBC, Coags, BMP, Mg, Phos Basename 11/19/13 0633 11/18/13 0506 11/17/13 0736 WBC 6.48 5.80 4.42 HB 8.7* 8.1* 7.7* HCT 26.8* 24.2* 23.6* PLT 323 226 169 INR -- -- -- APTT -- -- -- NA 140 138 138 K 4.4 4.2 3.8 CHLOR 102 103 101 CO2 27 25 27 BUN 9* 11 13 CREAT 0.90 0.84 0.83 GLUC 99 108* 102* CA 9.2 9.1 8.5 MG -- -- -- P -- -- -- UA: p HCG:N/A ABO/ABO Confirmed: Yes Blood ordered: Yes 2 SA Swab: Yes - results: positive - treated. Last Dose of Anticoagulation: asa 162 sub q heparin Op Note: yes Pacemaker Check: N/A Consults: none DM: No Cardiac Surgical prep: N/A SIGNATURE: Jackie Jc CNP CHECKED BY: arron DATE of SERVICE: 11/01/2013 TIME of SERVICE: 2:59 PM mwa 11/19 Mitral valve regurgitation 11/01/2013 0 11/16/2013 Overview: s/p MVr 01/201311/13/2013:MV repair with 31 mm De Leon band and valvuloplasty documented as of this encounter (statuses as of 06/30/2023) [facility]04-[facility]-2016 History of Past illness Narrative* Problem Noted Date Diagnosed Date Resolved Date Lightheadedness 08/05/2015 04/29/2020 Overview: Differential includes arrhythmia (including block or atrial tach) versus volume- down versus valvular issue such as pannus [facility]. Unlikely that his septum has re-hypertrophied. It's unusual that he is having symptoms during my interview while he is in sinus rhythm and with a normal blood pressure, and normal orthostatics. -favor arrhythmia issues versus volume issues (although orthostatic vital signs negative) versus psych -exam suggests a well functioning valve prosthesis -no syncopal events Plan -telemetry -echocardiogram in AM, assess for valve function/thrombus/pannus -consider exercise testing to assess BP and HR response if echo is unrevealing -encouraged po intake -consider loop recorder prior to discharge Stricture, urethra 12/10/2014 0 Subtherapeutic international normalized ratio (INR) 12/08/2013 04/29/2020 Overview: GOAL 2.5-3.5 for mechanical mitral valve Home dose 12.5 but made his INR GO to >4.5 AND WAS TOLD TO STOP COUMADIN FOR 2 DAYS AND 12/08 INR 1.9 RESUME TODAY ON 10 MG 12/09 INR 1.7 heparin drip per CTS at rate 500cc/r goal PTT 50-60 coumadin 12.5 mg /10 INR 2 ok to discharge per CTS Will discharge on 12.5 mg dose alternating with 10 mg Abdominal pain 12/08/2013 04/29/2020 Overview: DISSECTION, appendicitis, obstruction and pancreatitis ruled out Likely gastroenteritis Resolving LFTS trending down tolerating regular diet Elevated LFTs 12/08/2013 04/29/2020 Overview: Up from yesterday ++AST, ALT,ALP , MAGNUS normal Goal bladder normal on CT abdomen. Likely reactive Improving Trend off tylenol Epistaxis 11/27/2013 04/29/2020 Overview: Nosebleed x 2 11/27, no further episode today. Discharge on ocean spray tid and afrin prn. If continues to be problematic, discussed ENT for eval. Anemia 11/21/2013 04/29/2020 Overview: H/H 8.1/25.3, stable. Received 1u PRBC 11/23, 2U PRBC 11/22. Discharge on iron. Hypovolemia 11/20/2013 11/22/2013 Overview: 11/20/2013 Low MAP and filling pressures. Replete volume. Pericardial effusion 11/17/2013 014 Overview: History: S/p MVr, myectomy Assessment: small to moderate right pericardial effusion Plan: Having re-op on Wednesday11.20.2013. SUMMARY 11/16/2013 04/29/2020 Overview: Indication for admission/procedure: MR LVEF: Normal RVF: Normal PMH/PSH: MS, HTN, HPL, Sleep apnea (CPAP), Urethral stricture, Depression, 01/2013, LAAL, MVr Surgeries: 11/13/2013 Myectomy (5gm), MVr with de leon band and valvuloplasty 11/20/2013 Redo Sternotomy MVR (27/29mm OnX) 12/08/13 readmitted for abdominal pain from OSH A/P -Abdominal pain: likely gastroenteritis, resolved -subtherapeutic INR, report that INR WAS 4.5 ans was told to hold coumadin till today then decrease dose from 12.5 to 10 mg, heparin drip for INR <1.8 (TODAY 1.7) coumadin 12.5 mg LFTS improving D/C in am per CTS if INR >2 Atelectasis 11/15/2013 04/29/2020 Overview: On RA, -3.4kg, CXR w/minimal posterior effusions and mild opacity that is most suggestive of atelectasis. Continue PEP/OOB/C&DB. Fluid overload 11/15/2013 11/16/2013 Overview: Pre-op wt 120.7 kg, current wt 129.6. Pt received IVF resuscitation in ICU, upon assessment generalized edema. Will start gentle diuresis with Lasix. Monitor I&O and daily weights. Urethral stricture 11/15/2013 4 Overview: H/O of urethral stricture. Camacho D/C this am. Monitor Urine output. Cardiac insufficiency 11/13/20132013 Overview: RV sluggish post CPB. Improved with Epi. No pa cath in place. Will monitor hemodynamics Stress hyperglycemia 11/13/2013 014 Overview: Accuchecks and SSI Postoperative pain 11/13/2013 4 Overview: 11/21/2013 Pain controlled with Fenanyl BUILDING PERFORMANCE SPECIALIST, Lidoderm, Toradol, and Percocet. Supplement as needed. Hypotension 11/13/2013 11/16/2013 Overview: Filling pressures remain low. Norepi for goal MAP > 65. Cont fluid resuscitation as needed. 11/15/2013 much improved BP after fluid resuscitation in ICU. Will start gentle diuresing and low dose BB and monitor. Pre-op testing 11/01/2013 11/16/2013 Overview: Images from the original note were not included. [facility] PRE-[facility] CHECK[facility] Surgeon: Fernando Llanes M.D. Informed Consent Completed:yes CAD: No H & P completed: Yes PA/LAT: Completed CT: Completed MRI: N/A LE US: N/A Cath: Yes - reviewed: Yes Echo:Completed EKG: Completed EF %: 71 PI's: N/A Carotid: N/A Mapping: N/A Dental: Completed PFT's: Completed CBC, Coags, BMP, Mg, Phos Basename 11/19/13 0633 11/18/13 0506 11/17/13 0736 WBC 6.48 5.80 4.42 HB 8.7* 8.1* 7.7* HCT 26.8* 24.2* 23.6* PLT 323 226 169 INR -- -- -- APTT -- -- -- NA 140 138 138 K 4.4 4.2 3.8 CHLOR 102 103 101 CO2 27 25 27 BUN 9* 11 13 CREAT 0.90 0.84 0.83 GLUC 99 108* 102* CA 9.2 9.1 8.5 MG -- -- -- P -- -- -- UA: p HCG:N/A ABO/ABO Confirmed: Yes Blood ordered: Yes 2 SA Swab: Yes - results: positive - treated. Last Dose of Anticoagulation: asa 162 sub q heparin Op Note: yes Pacemaker Check: N/A Consults: none DM: No Cardiac Surgical prep: N/A SIGNATURE: Jackie Jc CNP CHECKED BY: arron DATE of SERVICE: 11/01/2013 TIME of SERVICE: 2:59 PM mwa 11/19 Mitral valve regurgitation 11/01/2013 0 11/16/2013 Overview: s/p MVr 01/201311/13/2013:MV repair with 31 mm De Leon band and valvuloplasty documented as of this encounter (statuses as of 06/30/2023) [facility]04-[facility]2016 History of Past illness Narrative* Problem Noted Date Diagnosed Date Resolved Date Lightheadedness 08/05/2015 04/29/2020 Overview: Differential includes arrhythmia (including block or atrial tach) versus volume- down versus valvular issue such as pannus growing into [facility] mitral valve. Unlikely that his septum has re-hypertrophied. It's unusual that he is having symptoms during my interview while he is in sinus rhythm and with a normal blood pressure, and normal orthostatics. -favor arrhythmia issues versus volume issues (although orthostatic vital signs negative) versus psych -exam suggests a well functioning valve prosthesis -no syncopal events Plan -telemetry -echocardiogram in AM, assess for valve function/thrombus/pannus -consider exercise testing to assess BP and HR response if echo is unrevealing -encouraged po intake -consider loop recorder prior to discharge Stricture, urethra 12/10/2014 0 Subtherapeutic international normalized ratio (INR) 12/08/2013 04/29/2020 Overview: GOAL 2.5-3.5 for mechanical mitral valve Home dose 12.5 but made his INR GO to >4.5 AND WAS TOLD TO STOP COUMADIN FOR 2 DAYS AND 12/08 INR 1.9 RESUME TODAY ON 10 MG 12/09 INR 1.7 heparin drip per CTS at rate 500cc/r goal PTT 50-60 coumadin 12.5 mg 12/10 INR 2 ok to discharge per CTS Will discharge on 12.5 mg dose alternating with 10 mg Abdominal pain 12/08/2013 04/29/2020 Overview: DISSECTION, appendicitis, obstruction and pancreatitis ruled out Likely gastroenteritis Resolving LFTS trending down tolerating regular diet Elevated LFTs 12/08/2013 04/29/2020 Overview: Up from yesterday ++AST, ALT,ALP , MAGNUS normal Goal bladder normal on CT abdomen. Likely reactive Improving Trend off tylenol Epistaxis 11/27/2013 04/29/2020 Overview: Nosebleed x 2 11/27, no further episode today. Discharge on ocean spray tid and afrin prn. If continues to be problematic, discussed ENT for eval. Anemia 11/21/2013 04/29/2020 Overview: H/H 8.1/25.3, stable. Received 1u PRBC 11/23, 2U PRBC 11/22. Discharge on iron. Hypovolemia 11/20/2013 11/22/2013 Overview: 11/20/2013 Low MAP and filling pressures. Replete volume. Pericardial effusion 11/17/2013 014 Overview: History: S/p MVr, myectomy Assessment: small to moderate right pericardial effusion Plan: Having re-op on Wednesday11.20.2013. SUMMARY 11/16/2013 04/29/2020 Overview: Indication for admission/procedure: MR LVEF: Normal RVF: Normal PMH/PSH: MS, HTN, HPL, Sleep apnea (CPAP), Urethral stricture, Depression, 01/2013, LAAL, MVr Surgeries: 11/13/2013 Myectomy (5gm), MVr with de leon band and valvuloplasty 11/20/2013 Redo Sternotomy MVR (27/29mm OnX) 12/08/13 readmitted for abdominal pain from OSH A/P -Abdominal pain: likely gastroenteritis, resolved -subtherapeutic INR, report that INR WAS 4.5 ans was told to hold coumadin till today then decrease dose from 12.5 to 10 mg, heparin drip for INR <1.8 (TODAY 1.7) coumadin 12.5 mg LFTS improving D/C in am per CTS if INR >2 Atelectasis 11/15/2013 04/29/2020 Overview: On RA, -3.4kg, CXR w/minimal posterior effusions and mild opacity that is most suggestive of atelectasis. Continue PEP/OOB/C&DB. Fluid overload 11/15/2013 11/16/2013 Overview: Pre-op wt 120.7 kg, current wt 129.6. Pt received IVF resuscitation in ICU, upon assessment generalized edema. Will start gentle diuresis with Lasix. Monitor I&O and daily weights. Urethral stricture 11/15/2013 4 Overview: H/O of urethral stricture. Camacho D/C this am. Monitor Urine output. Cardiac insufficiency 11/13/20132013 Overview: RV sluggish post CPB. Improved with Epi. No pa cath in place. Will monitor hemodynamics Stress hyperglycemia 11/13/2013 014 Overview: Accuchecks and SSI Postoperative pain 11/13/2013 4 Overview: 11/21/2013 Pain controlled with Fenanyl BUILDING PERFORMANCE SPECIALIST, Lidoderm, Toradol, and Percocet. Supplement as needed. Hypotension 11/13/2013 11/16/2013 Overview: Filling pressures remain low. Norepi for goal MAP > 65. Cont fluid resuscitation as needed. 11/15/2013 much improved BP after fluid resuscitation in ICU. Will start gentle diuresing and low dose BB and monitor. Pre-op testing 11/01/2013 11/16/2013 Overview: Images from the original note were not included. [facility] PRE-OP CHECKLIST Surgeon: Fernando Llanes M.D. Informed Consent Completed:yes CAD: No H & P completed: Yes PA/LAT: Completed CT: Completed MRI: N/A LE US: N/A Cath: Yes - reviewed: Yes Echo:Completed EKG: Completed EF %: 71 PI's: N/A Carotid: N/A Mapping: N/A Dental: Completed PFT's: Completed CBC, Coags, BMP, Mg, Phos Basename 11/19/13 0633 11/18/13 0506 11/17/13 0736 WBC 6.48 5.80 4.42 HB 8.7* 8.1* 7.7* HCT 26.8* 24.2* 23.6* PLT 323 226 169 INR -- -- -- APTT -- -- -- NA 140 138 138 K 4.4 4.2 3.8 CHLOR 102 103 101 CO2 27 25 27 BUN 9* 11 13 CREAT 0.90 0.84 0.83 GLUC 99 108* 102* CA 9.2 9.1 8.5 MG -- -- -- P -- -- -- UA: p HCG:N/A ABO/ABO Confirmed: Yes Blood ordered: Yes 2 SA Swab: Yes - results: positive - treated. Last Dose of Anticoagulation: asa 162 sub q heparin Op Note: yes Pacemaker Check: N/A Consults: none DM: No Cardiac Surgical prep: N/A SIGNATURE: Jackie Jc CNP CHECKED BY: arron DATE of SERVICE: 11/01/2013 TIME of SERVICE: 2:59 PM mwa 11/19 Mitral valve regurgitation 11/01/2013 0 11/16/2013 Overview: s/p MVr 01/201311/13/2013:MV repair with 31 mm De Leon band and valvuloplasty documented as of this encounter (statuses as of 06/30/2023) [facility]04-[facility] History of Past illness Narrative* Problem Noted Date Diagnosed Date Resolved Date Lightheadedness 08/05/2015 04/29/2020 Overview: Differential includes arrhythmia (including block or atrial tach) versus volume- down versus valvular issue such as pannus growing into [facility] mitral valve. Unlikely that his septum has re-hypertrophied. It's unusual that he is having symptoms during my interview while he is in sinus rhythm and with a normal blood pressure, and normal orthostatics. -favor arrhythmia issues versus volume issues (although orthostatic vital signs negative) versus psych -exam suggests a well functioning valve prosthesis -no syncopal events Plan -telemetry -echocardiogram in AM, assess for valve function/thrombus/pannus -consider exercise testing to assess BP and HR response if echo is unrevealing -encouraged po intake -consider loop recorder prior to discharge Stricture, urethra 12/10/2014 0 Subtherapeutic international normalized ratio (INR) 12/08/2013 04/29/2020 Overview: GOAL 2.5-3.5 for mechanical mitral valve Home dose 12.5 but made his INR GO to >4.5 AND WAS TOLD TO STOP COUMADIN FOR 2 DAYS AND 12/08 INR 1.9 RESUME TODAY ON 10 MG 12/09 INR 1.7 heparin drip per CTS at rate 500cc/r goal PTT 50-60 coumadin 12.5 mg 12/10 INR 2 ok to discharge per CTS Will discharge on 12.5 mg dose alternating with 10 mg Abdominal pain 12/08/2013 04/29/2020 Overview: DISSECTION, appendicitis, obstruction and pancreatitis ruled out Likely gastroenteritis Resolving LFTS trending down tolerating regular diet Elevated LFTs 12/08/2013 04/29/2020 Overview: Up from yesterday ++AST, ALT,ALP , MAGNUS normal Goal bladder normal on CT abdomen. Likely reactive Improving Trend off tylenol Epistaxis 11/27/2013 04/29/2020 Overview: Nosebleed x 2 11/27, no further episode today. Discharge on ocean spray tid and afrin prn. If continues to be problematic, discussed ENT for eval. Anemia 11/21/2013 04/29/2020 Overview: H/H 8.1/25.3, stable. Received 1u PRBC 11/23, 2U PRBC 11/22. Discharge on iron. Hypovolemia 11/20/2013 11/22/2013 Overview: 11/20/2013 Low MAP and filling pressures. Replete volume. Pericardial effusion 11/17/2013 014 Overview: History: S/p MVr, myectomy Assessment: small to moderate right pericardial effusion Plan: Having re-op on Wednesday11.20.2013. SUMMARY 11/16/2013 04/29/2020 Overview: Indication for admission/procedure: MR LVEF: Normal RVF: Normal PMH/PSH: MS, HTN, HPL, Sleep apnea (CPAP), Urethral stricture, Depression, 01/2013, LAAL, MVr Surgeries: 11/13/2013 Myectomy (5gm), MVr with de leon band and valvuloplasty 11/20/2013 Redo Sternotomy MVR (27/29mm OnX) 12/08/13 readmitted for abdominal pain from OSH A/P -Abdominal pain: likely gastroenteritis, resolved -subtherapeutic INR, report that INR WAS 4.5 ans was told to hold coumadin till today then decrease dose from 12.5 to 10 mg, heparin drip for INR <1.8 (TODAY 1.7) coumadin 12.5 mg LFTS improving D/C in am per CTS if INR >2 Atelectasis 11/15/2013 04/29/2020 Overview: On RA, -3.4kg, CXR w/minimal posterior effusions and mild opacity that is most suggestive of atelectasis. Continue PEP/OOB/C&DB. Fluid overload 11/15/2013 11/16/2013 Overview: Pre-op wt 120.7 kg, current wt 129.6. Pt received IVF resuscitation in ICU, upon assessment generalized edema. Will start gentle diuresis with Lasix. Monitor I&O and daily weights. Urethral stricture 11/15/2013 4 Overview: H/O of urethral stricture. Camacho D/C this am. Monitor Urine output. Cardiac insufficiency 11/13/20132013 Overview: RV sluggish post CPB. Improved with Epi. No pa cath in place. Will monitor hemodynamics Stress hyperglycemia 11/13/2013 014 Overview: Accuchecks and SSI Postoperative pain 11/13/2013 4 Overview: 11/21/2013 Pain controlled with Fenanyl BUILDING PERFORMANCE SPECIALIST, Lidoderm, Toradol, and Percocet. Supplement as needed. Hypotension 11/13/2013 11/16/2013 Overview: Filling pressures remain low. Norepi for goal MAP > 65. Cont fluid resuscitation as needed. 11/15/2013 much improved BP after fluid resuscitation in ICU. Will start gentle diuresing and low dose BB and monitor. Pre-op testing 11/01/2013 11/16/2013 Overview: Images from the original note were not included. [facility] PRE-OP CHECKLIST Surgeon: Fernando Llanes M.D. Informed Consent Completed:yes CAD: No H & P completed: Yes PA/LAT: Completed CT: Completed MRI: N/A LE US: N/A Cath: Yes - reviewed: Yes Echo:Completed EKG: Completed EF %: 71 PI's: N/A Carotid: N/A Mapping: N/A Dental: Completed PFT's: Completed CBC, Coags, BMP, Mg, Phos Basename 11/19/13 0633 11/18/13 0506 11/17/13 0736 WBC 6.48 5.80 4.42 HB 8.7* 8.1* 7.7* HCT 26.8* 24.2* 23.6* PLT 323 226 169 INR -- -- -- APTT -- -- -- NA 140 138 138 K 4.4 4.2 3.8 CHLOR 102 103 101 CO2 27 25 27 BUN 9* 11 13 CREAT 0.90 0.84 0.83 GLUC 99 108* 102* CA 9.2 9.1 8.5 MG -- -- -- P -- -- -- UA: p HCG:N/A ABO/ABO Confirmed: Yes Blood ordered: Yes 2 SA Swab: Yes - results: positive - treated. Last Dose of Anticoagulation: asa 162 sub q heparin Op Note: yes Pacemaker Check: N/A Consults: none DM: No Cardiac Surgical prep: N/A SIGNATURE: Jackie Jc CNP CHECKED BY: arron DATE of SERVICE: 11/01/2013 TIME of SERVICE: 2:59 PM mwa 11/19 Mitral valve regurgitation 11/01/2013 0 11/16/2013 Overview: s/p MVr 01/201311/13/2013:MV repair with 31 mm De Leon band and valvuloplasty documented as of this encounter (statuses as of 06/30/2023) [facility] History of Past illness Narrative* Problem Noted Date Diagnosed Date Resolved Date Lightheadedness 08/05/2015 04/29/2020 Overview: Differential includes arrhythmia (including block or atrial tach) versus volume- down versus valvular issue such as pannus growing into [facility] mitral valve. Unlikely that his septum has re-hypertrophied. It's unusual that he is having symptoms during my interview while he is in sinus rhythm and with a normal blood pressure, and normal orthostatics. -favor arrhythmia issues versus volume issues (although orthostatic vital signs negative) versus psych -exam suggests a well functioning valve prosthesis -no syncopal events Plan -telemetry -echocardiogram in AM, assess for valve function/thrombus/pannus -consider exercise testing to assess BP and HR response if echo is unrevealing -encouraged po intake -consider loop recorder prior to discharge Stricture, urethra 12/10/2014 0 Subtherapeutic international normalized ratio (INR) 12/08/2013 04/29/2020 Overview: GOAL 2.5-3.5 for mechanical mitral valve Home dose 12.5 but made his INR GO to >4.5 AND WAS TOLD TO STOP COUMADIN FOR 2 DAYS AND 12/08 INR 1.9 RESUME TODAY ON 10 MG 12/09 INR 1.7 heparin drip per CTS at rate 500cc/r goal PTT 50-60 coumadin 12.5 mg 12/10 INR 2 ok to discharge per CTS Will discharge on 12.5 mg dose alternating with 10 mg Abdominal pain 12/08/2013 04/29/2020 Overview: DISSECTION, appendicitis, obstruction and pancreatitis ruled out Likely gastroenteritis Resolving LFTS trending down tolerating regular diet Elevated LFTs 12/08/2013 04/29/2020 Overview: Up from yesterday ++AST, ALT,ALP , MAGNUS normal Goal bladder normal on CT abdomen. Likely reactive Improving Trend off tylenol Epistaxis 11/27/2013 04/29/2020 Overview: Nosebleed x 2 11/27, no further episode today. Discharge on ocean spray tid and afrin prn. If continues to be problematic, discussed ENT for eval. Anemia 11/21/2013 04/29/2020 Overview: H/H 8.1/25.3, stable. Received 1u PRBC 11/23, 2U PRBC 11/22. Discharge on iron. Hypovolemia 11/20/2013 11/22/2013 Overview: 11/20/2013 Low MAP and filling pressures. Replete volume. Pericardial effusion 11/17/2013 014 Overview: History: S/p MVr, myectomy Assessment: small to moderate right pericardial effusion Plan: Having re-op on Wednesday11.20.2013. SUMMARY 11/16/2013 04/29/2020 Overview: Indication for admission/procedure: MR LVEF: Normal RVF: Normal PMH/PSH: MS, HTN, HPL, Sleep apnea (CPAP), Urethral stricture, Depression, 01/2013, LAAL, MVr Surgeries: 11/13/2013 Myectomy (5gm), MVr with de leon band and valvuloplasty 11/20/2013 Redo Sternotomy MVR (27/29mm OnX) 12/08/13 readmitted for abdominal pain from OSH A/P -Abdominal pain: likely gastroenteritis, resolved -subtherapeutic INR, report that INR WAS 4.5 ans was told to hold coumadin till today then decrease dose from 12.5 to 10 mg, heparin drip for INR <1.8 (TODAY 1.7) coumadin 12.5 mg LFTS improving D/C in am per CTS if INR >2 Atelectasis 11/15/2013 04/29/2020 Overview: On RA, -3.4kg, CXR w/minimal posterior effusions and mild opacity that is most suggestive of atelectasis. Continue PEP/OOB/C&DB. Fluid overload 11/15/2013 11/16/2013 Overview: Pre-op wt 120.7 kg, current wt 129.6. Pt received IVF resuscitation in ICU, upon assessment generalized edema. Will start gentle diuresis with Lasix. Monitor I&O and daily weights. Urethral stricture 11/15/2013 4 Overview: H/O of urethral stricture. Camacho D/C this am. Monitor Urine output. Cardiac insufficiency 11/13/20132013 Overview: RV sluggish post CPB. Improved with Epi. No pa cath in place. Will monitor hemodynamics Stress hyperglycemia 11/13/2013 014 Overview: Accuchecks and SSI Postoperative pain 11/13/2013 07/23/201 4 Overview: 11/21/2013 Pain controlled with Fenanyl BUILDING PERFORMANCE SPECIALIST, Lidoderm, Toradol, and Percocet. Supplement as needed. Hypotension 11/13/2013 11/16/2013 Overview: Filling pressures remain low. Norepi for goal MAP > 65. Cont fluid resuscitation as needed. 11/15/2013 much improved BP after fluid resuscitation in ICU. Will start gentle diuresing and low dose BB and monitor. Pre-op testing 11/01/2013 11/16/2013 Overview: Images from the original note were not included. [facility] Surgeon: Fernando Llanes M.D. Informed Consent Completed:yes CAD: No H & P completed: Yes PA/LAT: Completed CT: Completed MRI: N/A LE US: N/A Cath: Yes - reviewed: Yes Echo:Completed EKG: Completed EF %: 71 PI's: N/A Carotid: N/A Mapping: N/A Dental: Completed PFT's: Completed CBC, Coags, BMP, Mg, Phos Basename 11/19/13 0633 11/18/13 0506 11/17/13 0736 WBC 6.48 5.80 4.42 HB 8.7* 8.1* 7.7* HCT 26.8* 24.2* 23.6* PLT 323 226 169 INR -- -- -- APTT -- -- -- NA 140 138 138 K 4.4 4.2 3.8 CHLOR 102 103 101 CO2 27 25 27 BUN 9* 11 13 CREAT 0.90 0.84 0.83 GLUC 99 108* 102* CA 9.2 9.1 8.5 MG -- -- -- P -- -- -- UA: p HCG:N/A ABO/ABO Confirmed: Yes Blood ordered: Yes 2 SA Swab: Yes - results: positive - treated. Last Dose of Anticoagulation: asa 162 sub q heparin Op Note: yes Pacemaker Check: N/A Consults: none DM: No Cardiac Surgical prep: N/A SIGNATURE: Jackie Jc CNP CHECKED BY: arron DATE of SERVICE: 11/01/2013 TIME of SERVICE: 2:59 PM mwa 11/19 Mitral valve regurgitation 11/01/2013 0 11/16/2013 Overview: s/p MVr 01/201311/13/2013:MV repair with 31 mm De Leon band and valvuloplasty documented as of this encounter (statuses as of 07/27/2023) [facility]04-[facility]2016 History of Past illness Narrative* Problem Noted Date Diagnosed Date Resolved Date Lightheadedness 08/05/2015 04/29/2020 Overview: Differential includes arrhythmia (including block or atrial tach) versus volume- down versus valvular issue such as pannus growing into [facility] mitral valve. Unlikely that his septum has re-hypertrophied. It's unusual that he is having symptoms during my interview while he is in sinus rhythm and with a normal blood pressure, and normal orthostatics. -favor arrhythmia issues versus volume issues (although orthostatic vital signs negative) versus psych -exam suggests a well functioning valve prosthesis -no syncopal events Plan -telemetry -echocardiogram in AM, assess for valve function/thrombus/pannus -consider exercise testing to assess BP and HR response if echo is unrevealing -encouraged po intake -consider loop recorder prior to discharge Stricture, urethra 12/10/2014 0 Subtherapeutic international normalized ratio (INR) 12/08/2013 04/29/2020 Overview: GOAL 2.5-3.5 for mechanical mitral valve Home dose 12.5 but made his INR GO to >4.5 AND WAS TOLD TO STOP COUMADIN FOR 2 DAYS AND 12/08 INR 1.9 RESUME TODAY ON 10 MG 12/09 INR 1.7 heparin drip per CTS at rate 500cc/r goal PTT 50-60 coumadin 12.5 mg 12/10 INR 2 ok to discharge per CTS Will discharge on 12.5 mg dose alternating with 10 mg Abdominal pain 12/08/2013 04/29/2020 Overview: DISSECTION, appendicitis, obstruction and pancreatitis ruled out Likely gastroenteritis Resolving LFTS trending down tolerating regular diet Elevated LFTs 12/08/2013 04/29/2020 Overview: Up from yesterday ++AST, ALT,ALP , MAGNUS normal Goal bladder normal on CT abdomen. Likely reactive Improving Trend off tylenol Epistaxis 11/27/2013 04/29/2020 Overview: Nosebleed x 2 11/27, no further episode today. Discharge on ocean spray tid and afrin prn. If continues to be problematic, discussed ENT for eval. Anemia 11/21/2013 04/29/2020 Overview: H/H 8.1/25.3, stable. Received 1u PRBC 11/23, 2U PRBC 11/22. Discharge on iron. Hypovolemia 11/20/2013 11/22/2013 Overview: 11/20/2013 Low MAP and filling pressures. Replete volume. Pericardial effusion 11/17/2013 014 Overview: History: S/p MVr, myectomy Assessment: small to moderate right pericardial effusion Plan: Having re-op on Wednesday11.20.2013. SUMMARY 11/16/2013 04/29/2020 Overview: Indication for admission/procedure: MR LVEF: Normal RVF: Normal PMH/PSH: MS, HTN, HPL, Sleep apnea (CPAP), Urethral stricture, Depression, 01/2013, LAAL, MVr Surgeries: 11/13/2013 Myectomy (5gm), MVr with de leon band and valvuloplasty 11/20/2013 Redo Sternotomy MVR (27/29mm OnX) 12/08/13 readmitted for abdominal pain from OSH A/P -Abdominal pain: likely gastroenteritis, resolved -subtherapeutic INR, report that INR WAS 4.5 ans was told to hold coumadin till today then decrease dose from 12.5 to 10 mg, heparin drip for INR <1.8 (TODAY 1.7) coumadin 12.5 mg LFTS improving D/C in am per CTS if INR >2 Atelectasis 11/15/2013 04/29/2020 Overview: On RA, -3.4kg, CXR w/minimal posterior effusions and mild opacity that is most suggestive of atelectasis. Continue PEP/OOB/C&DB. Fluid overload 11/15/2013 11/16/2013 Overview: Pre-op wt 120.7 kg, current wt 129.6. Pt received IVF resuscitation in ICU, upon assessment generalized edema. Will start gentle diuresis with Lasix. Monitor I&O and daily weights. Urethral stricture 11/15/2013 4 Overview: H/O of urethral stricture. Camacho D/C this am. Monitor Urine output. Cardiac insufficiency 11/13/20132013 Overview: RV sluggish post CPB. Improved with Epi. No pa cath in place. Will monitor hemodynamics Stress hyperglycemia 11/13/2013 014 Overview: Accuchecks and SSI Postoperative pain 11/13/2013 4 Overview: 11/21/2013 Pain controlled with Fenanyl BUILDING PERFORMANCE SPECIALIST, Lidoderm, Toradol, and Percocet. Supplement as needed. Hypotension 11/13/2013 11/16/2013 Overview: Filling pressures remain low. Norepi for goal MAP > 65. Cont fluid resuscitation as needed. 11/15/2013 much improved BP after fluid resuscitation in ICU. Will start gentle diuresing and low dose BB and monitor. Pre-op testing 11/01/2013 11/16/2013 Overview: Images from the original note were not included. [facility] Surgeon: Fernando Llanes M.D. Informed Consent Completed:yes CAD: No H & P completed: Yes PA/LAT: Completed CT: Completed MRI: N/A LE US: N/A Cath: Yes - reviewed: Yes Echo:Completed EKG: Completed EF %: 71 PI's: N/A Carotid: N/A Mapping: N/A Dental: Completed PFT's: Completed CBC, Coags, BMP, Mg, Phos Basename 11/19/13 0633 11/18/13 0506 11/17/13 0736 WBC 6.48 5.80 4.42 HB 8.7* 8.1* 7.7* HCT 26.8* 24.2* 23.6* PLT 323 226 169 INR -- -- -- APTT -- -- -- NA 140 138 138 K 4.4 4.2 3.8 CHLOR 102 103 101 CO2 27 25 27 BUN 9* 11 13 CREAT 0.90 0.84 0.83 GLUC 99 108* 102* CA 9.2 9.1 8.5 MG -- -- -- P -- -- -- UA: p HCG:N/A ABO/ABO Confirmed: Yes Blood ordered: Yes 2 SA Swab: Yes - results: positive - treated. Last Dose of Anticoagulation: asa 162 sub q heparin Op Note: yes Pacemaker Check: N/A Consults: none DM: No Cardiac Surgical prep: N/A SIGNATURE: Jackie Jc CNP CHECKED BY: arron DATE of SERVICE: 11/01/2013 TIME of SERVICE: 2:59 PM mwa 11/19 Mitral valve regurgitation 11/01/2013 0 11/16/2013 Overview: s/p MVr 01/201311/13/2013:MV repair with 31 mm De Leon band and valvuloplasty documented as of this encounter (statuses as of 08/03/2023) [facility]04-[facility]2016 History of Past illness Narrative* Problem Noted Date Diagnosed Date Resolved Date Lightheadedness 08/05/2015 04/29/2020 Overview: Differential includes arrhythmia (including block or atrial tach) versus volume- down versus valvular issue such as pannus growing into [facility] mitral valve. Unlikely that his septum has re-hypertrophied. It's unusual that he is having symptoms during my interview while he is in sinus rhythm and with a normal blood pressure, and normal orthostatics. -favor arrhythmia issues versus volume issues (although orthostatic vital signs negative) versus psych -exam suggests a well functioning valve prosthesis -no syncopal events Plan -telemetry -echocardiogram in AM, assess for valve function/thrombus/pannus -consider exercise testing to assess BP and HR response if echo is unrevealing -encouraged po intake -consider loop recorder prior to discharge Stricture, urethra 12/10/2014 0 Subtherapeutic international normalized ratio (INR) 12/08/2013 04/29/2020 Overview: GOAL 2.5-3.5 for mechanical mitral valve Home dose 12.5 but made his INR GO to >4.5 AND WAS TOLD TO STOP COUMADIN FOR 2 DAYS AND 12/08 INR 1.9 RESUME TODAY ON 10 MG 12/09 INR 1.7 heparin drip per CTS at rate 500cc/r goal PTT 50-60 coumadin 12.5 mg 12/10 INR 2 ok to discharge per CTS Will discharge on 12.5 mg dose alternating with 10 mg Abdominal pain 12/08/2013 04/29/2020 Overview: DISSECTION, appendicitis, obstruction and pancreatitis ruled out Likely gastroenteritis Resolving LFTS trending down tolerating regular diet Elevated LFTs 12/08/2013 04/29/2020 Overview: Up from yesterday ++AST, ALT,ALP , MAGNUS normal Goal bladder normal on CT abdomen. Likely reactive Improving Trend off tylenol Epistaxis 11/27/2013 04/29/2020 Overview: Nosebleed x 2 11/27, no further episode today. Discharge on ocean spray tid and afrin prn. If continues to be problematic, discussed ENT for eval. Anemia 11/21/2013 04/29/2020 Overview: H/H 8.1/25.3, stable. Received 1u PRBC 11/23, 2U PRBC 11/22. Discharge on iron. Hypovolemia 11/20/2013 11/22/2013 Overview: 11/20/2013 Low MAP and filling pressures. Replete volume. Pericardial effusion 11/17/2013 014 Overview: History: S/p MVr, myectomy Assessment: small to moderate right pericardial effusion Plan: Having re-op on Wednesday11.20.2013. SUMMARY 11/16/2013 04/29/2020 Overview: Indication for admission/procedure: MR LVEF: Normal RVF: Normal PMH/PSH: MS, HTN, HPL, Sleep apnea (CPAP), Urethral stricture, Depression, 01/2013, LAAL, MVr Surgeries: 11/13/2013 Myectomy (5gm), MVr with de leon band and valvuloplasty 11/20/2013 Redo Sternotomy MVR (27/29mm OnX) 12/08/13 readmitted for abdominal pain from OSH A/P -Abdominal pain: likely gastroenteritis, resolved -subtherapeutic INR, report that INR WAS 4.5 ans was told to hold coumadin till today then decrease dose from 12.5 to 10 mg, heparin drip for INR <1.8 (TODAY 1.7) coumadin 12.5 mg LFTS improving D/C in am per CTS if INR >2 Atelectasis 11/15/2013 04/29/2020 Overview: On RA, -3.4kg, CXR w/minimal posterior effusions and mild opacity that is most suggestive of atelectasis. Continue PEP/OOB/C&DB. Fluid overload 11/15/2013 11/16/2013 Overview: Pre-op wt 120.7 kg, current wt 129.6. Pt received IVF resuscitation in ICU, upon assessment generalized edema. Will start gentle diuresis with Lasix. Monitor I&O and daily weights. Urethral stricture 11/15/2013 4 Overview: H/O of urethral stricture. Camacho D/C this am. Monitor Urine output. Cardiac insufficiency 11/13/20132013 Overview: RV sluggish post CPB. Improved with Epi. No pa cath in place. Will monitor hemodynamics Stress hyperglycemia 11/13/2013 014 Overview: Accuchecks and SSI Postoperative pain 11/13/2013 4 Overview: 11/21/2013 Pain controlled with Fenanyl BUILDING PERFORMANCE SPECIALIST, Lidoderm, Toradol, and Percocet. Supplement as needed. Hypotension 11/13/2013 11/16/2013 Overview: Filling pressures remain low. Norepi for goal MAP > 65. Cont fluid resuscitation as needed. 11/15/2013 much improved BP after fluid resuscitation in ICU. Will start gentle diuresing and low dose BB and monitor. Pre-op testing 11/01/2013 11/16/2013 Overview: Images from the original note were not included. [facility] PRE[facility] Surgeon: Fernando Llanes M.D. Informed Consent Completed:yes CAD: No H & P completed: Yes PA/LAT: Completed CT: Completed MRI: N/A LE US: N/A Cath: Yes - reviewed: Yes Echo:Completed EKG: Completed EF %: 71 PI's: N/A Carotid: N/A Mapping: N/A Dental: Completed PFT's: Completed CBC, Coags, BMP, Mg, Phos Basename 11/19/13 0633 11/18/13 0506 11/17/13 0736 WBC 6.48 5.80 4.42 HB 8.7* 8.1* 7.7* HCT 26.8* 24.2* 23.6* PLT 323 226 169 INR -- -- -- APTT -- -- -- NA 140 138 138 K 4.4 4.2 3.8 CHLOR 102 103 101 CO2 27 25 27 BUN 9* 11 13 CREAT 0.90 0.84 0.83 GLUC 99 108* 102* CA 9.2 9.1 8.5 MG -- -- -- P -- -- -- UA: p HCG:N/A ABO/ABO Confirmed: Yes Blood ordered: Yes 2 SA Swab: Yes - results: positive - treated. Last Dose of Anticoagulation: asa 162 sub q heparin Op Note: yes Pacemaker Check: N/A Consults: none DM: No Cardiac Surgical prep: N/A SIGNATURE: Jackie Jc CNP CHECKED BY: arron DATE of SERVICE: 11/01/2013 TIME of SERVICE: 2:59 PM mwa 11/19 Mitral valve regurgitation 11/01/2013 0 11/16/2013 Overview: s/p MVr 01/201311/13/2013:MV repair with 31 mm De Leon band and valvuloplasty documented as of this encounter (statuses as of 08/04/2023) [facility]04[facility] History of Past illness Narrative* Problem Noted Date Diagnosed Date Resolved Date Lightheadedness 08/05/2015 04/29/2020 Overview: Differential includes arrhythmia (including block or atrial tach) versus volume- down versus valvular issue such as pannus growing into [facility] mitral valve. Unlikely that his septum has re-hypertrophied. It's unusual that he is having symptoms during my interview while he is in sinus rhythm and with a normal blood pressure, and normal orthostatics. -favor arrhythmia issues versus volume issues (although orthostatic vital signs negative) versus psych -exam suggests a well functioning valve prosthesis -no syncopal events Plan -telemetry -echocardiogram in AM, assess for valve function/thrombus/pannus -consider exercise testing to assess BP and HR response if echo is unrevealing -encouraged po intake -consider loop recorder prior to discharge Stricture, urethra 12/10/2014 0 Subtherapeutic international normalized ratio (INR) 12/08/2013 04/29/2020 Overview: GOAL 2.5-3.5 for mechanical mitral valve Home dose 12.5 but made his INR GO to >4.5 AND WAS TOLD TO STOP COUMADIN FOR 2 DAYS AND 12/08 INR 1.9 RESUME TODAY ON 10 MG 12/09 INR 1.7 heparin drip per CTS at rate 500cc/r goal PTT 50-60 coumadin 12.5 mg 12/10 INR 2 ok to discharge per CTS Will discharge on 12.5 mg dose alternating with 10 mg Abdominal pain 12/08/2013 04/29/2020 Overview: DISSECTION, appendicitis, obstruction and pancreatitis ruled out Likely gastroenteritis Resolving LFTS trending down tolerating regular diet Elevated LFTs 12/08/2013 04/29/2020 Overview: Up from yesterday ++AST, ALT,ALP , MAGNUS normal Goal bladder normal on CT abdomen. Likely reactive Improving Trend off tylenol Epistaxis 11/27/2013 04/29/2020 Overview: Nosebleed x 2 11/27, no further episode today. Discharge on ocean spray tid and afrin prn. If continues to be problematic, discussed ENT for eval. Anemia 11/21/2013 04/29/2020 Overview: H/H 8.1/25.3, stable. Received 1u PRBC 11/23, 2U PRBC 11/22. Discharge on iron. Hypovolemia 11/20/2013 11/22/2013 Overview: 11/20/2013 Low MAP and filling pressures. Replete volume. Pericardial effusion 11/17/2013 014 Overview: History: S/p MVr, myectomy Assessment: small to moderate right pericardial effusion Plan: Having re-op on Wednesday11.20.2013. SUMMARY 11/16/2013 04/29/2020 Overview: Indication for admission/procedure: MR LVEF: Normal RVF: Normal PMH/PSH: MS, HTN, HPL, Sleep apnea (CPAP), Urethral stricture, Depression, 01/2013, LAAL, MVr Surgeries: 11/13/2013 Myectomy (5gm), MVr with de leon band and valvuloplasty 11/20/2013 Redo Sternotomy MVR (27/29mm OnX) 12/08/13 readmitted for abdominal pain from OSH A/P -Abdominal pain: likely gastroenteritis, resolved -subtherapeutic INR, report that INR WAS 4.5 ans was told to hold coumadin till today then decrease dose from 12.5 to 10 mg, heparin drip for INR <1.8 (TODAY 1.7) coumadin 12.5 mg LFTS improving D/C in am per CTS if INR >2 Atelectasis 11/15/2013 04/29/2020 Overview: On RA, -3.4kg, CXR w/minimal posterior effusions and mild opacity that is most suggestive of atelectasis. Continue PEP/OOB/C&DB. Fluid overload 11/15/2013 11/16/2013 Overview: Pre-op wt 120.7 kg, current wt 129.6. Pt received IVF resuscitation in ICU, upon assessment generalized edema. Will start gentle diuresis with Lasix. Monitor I&O and daily weights. Urethral stricture 11/15/2013 4 Overview: H/O of urethral stricture. Camacho D/C this am. Monitor Urine output. Cardiac insufficiency 11/13/20132013 Overview: RV sluggish post CPB. Improved with Epi. No pa cath in place. Will monitor hemodynamics Stress hyperglycemia 11/13/2013 014 Overview: Accuchecks and SSI Postoperative pain 11/13/2013 4 Overview: 11/21/2013 Pain controlled with Fenanyl BUILDING PERFORMANCE SPECIALIST, Lidoderm, Toradol, and Percocet. Supplement as needed. Hypotension 11/13/2013 11/16/2013 Overview: Filling pressures remain low. Norepi for goal MAP > 65. Cont fluid resuscitation as needed. 11/15/2013 much improved BP after fluid resuscitation in ICU. Will start gentle diuresing and low dose BB and monitor. Pre-op testing 11/01/2013 11/16/2013 Overview: Images from the original note were not included. [facility]OP [facility] Surgeon: Fernando Llanes M.D. Informed Consent Completed:yes CAD: No H & P completed: Yes PA/LAT: Completed CT: Completed MRI: N/A LE US: N/A Cath: Yes - reviewed: Yes Echo:Completed EKG: Completed EF %: 71 PI's: N/A Carotid: N/A Mapping: N/A Dental: Completed PFT's: Completed CBC, Coags, BMP, Mg, Phos Basename 11/19/13 0633 11/18/13 0506 11/17/13 0736 WBC 6.48 5.80 4.42 HB 8.7* 8.1* 7.7* HCT 26.8* 24.2* 23.6* PLT 323 226 169 INR -- -- -- APTT -- -- -- NA 140 138 138 K 4.4 4.2 3.8 CHLOR 102 103 101 CO2 27 25 27 BUN 9* 11 13 CREAT 0.90 0.84 0.83 GLUC 99 108* 102* CA 9.2 9.1 8.5 MG -- -- -- P -- -- -- UA: p HCG:N/A ABO/ABO Confirmed: Yes Blood ordered: Yes 2 SA Swab: Yes - results: positive - treated. Last Dose of Anticoagulation: asa 162 sub q heparin Op Note: yes Pacemaker Check: N/A Consults: none DM: No Cardiac Surgical prep: N/A SIGNATURE: Jackie Jc CNP CHECKED BY: arron DATE of SERVICE: 11/01/2013 TIME of SERVICE: 2:59 PM mwa 11/19 Mitral valve regurgitation 11/01/2013 0 11/16/2013 Overview: s/p MVr 01/201311/13/2013:MV repair with 31 mm De Leon band and valvuloplasty documented as of this encounter (statuses as of 08/11/2023) [facility] History of Past illness Narrative* Problem Noted Date Diagnosed Date Resolved Date Lightheadedness 08/05/2015 04/29/2020 Overview: Differential includes arrhythmia (including block or atrial tach) versus volume- down versus valvular issue such as pannus growing into [facility] mitral valve. Unlikely that his septum has re-hypertrophied. It's unusual that he is having symptoms during my interview while he is in sinus rhythm and with a normal blood pressure, and normal orthostatics. -favor arrhythmia issues versus volume issues (although orthostatic vital signs negative) versus psych -exam suggests a well functioning valve prosthesis -no syncopal events Plan -telemetry -echocardiogram in AM, assess for valve function/thrombus/pannus -consider exercise testing to assess BP and HR response if echo is unrevealing -encouraged po intake -consider loop recorder prior to discharge Stricture, urethra 12/10/2014 0 Subtherapeutic international normalized ratio (INR) 12/08/2013 04/29/2020 Overview: GOAL 2.5-3.5 for mechanical mitral valve Home dose 12.5 but made his INR GO to >4.5 AND WAS TOLD TO STOP COUMADIN FOR 2 DAYS AND 12/08 INR 1.9 RESUME TODAY ON 10 MG / INR 1.7 heparin drip per CTS at rate 500cc/r goal PTT 50-60 coumadin 12.5 mg 12/10 INR 2 ok to discharge per CTS Will discharge on 12.5 mg dose alternating with 10 mg Abdominal pain 12/08/2013 04/29/2020 Overview: DISSECTION, appendicitis, obstruction and pancreatitis ruled out Likely gastroenteritis Resolving LFTS trending down tolerating regular diet Elevated LFTs 12/08/2013 04/29/2020 Overview: Up from yesterday ++AST, ALT,ALP , MAGNUS normal Goal bladder normal on CT abdomen. Likely reactive Improving Trend off tylenol Epistaxis 11/27/2013 04/29/2020 Overview: Nosebleed x 2 11/27, no further episode today. Discharge on ocean spray tid and afrin prn. If continues to be problematic, discussed ENT for eval. Anemia 11/21/2013 04/29/2020 Overview: H/H 8.1/25.3, stable. Received 1u PRBC 11/23, 2U PRBC 11/22. Discharge on iron. Hypovolemia 11/20/2013 11/22/2013 Overview: 11/20/2013 Low MAP and filling pressures. Replete volume. Pericardial effusion 11/17/2013 014 Overview: History: S/p MVr, myectomy Assessment: small to moderate right pericardial effusion Plan: Having re-op on Wednesday11.20.2013. SUMMARY 11/16/2013 04/29/2020 Overview: Indication for admission/procedure: MR LVEF: Normal RVF: Normal PMH/PSH: MS, HTN, HPL, Sleep apnea (CPAP), Urethral stricture, Depression, 01/2013, LAAL, MVr Surgeries: 11/13/2013 Myectomy (5gm), MVr with de leon band and valvuloplasty 11/20/2013 Redo Sternotomy MVR (27/29mm OnX) 12/08/13 readmitted for abdominal pain from OSH A/P -Abdominal pain: likely gastroenteritis, resolved -subtherapeutic INR, report that INR WAS 4.5 ans was told to hold coumadin till today then decrease dose from 12.5 to 10 mg, heparin drip for INR <1.8 (TODAY 1.7) coumadin 12.5 mg LFTS improving D/C in am per CTS if INR >2 Atelectasis 11/15/2013 04/29/2020 Overview: On RA, -3.4kg, CXR w/minimal posterior effusions and mild opacity that is most suggestive of atelectasis. Continue PEP/OOB/C&DB. Fluid overload 11/15/2013 11/16/2013 Overview: Pre-op wt 120.7 kg, current wt 129.6. Pt received IVF resuscitation in ICU, upon assessment generalized edema. Will start gentle diuresis with Lasix. Monitor I&O and daily weights. Urethral stricture 11/15/2013 4 Overview: H/O of urethral stricture. Camacho D/C this am. Monitor Urine output. Cardiac insufficiency 11/13/20132013 Overview: RV sluggish post CPB. Improved with Epi. No pa cath in place. Will monitor hemodynamics Stress hyperglycemia 11/13/2013 014 Overview: Accuchecks and SSI Postoperative pain 11/13/2013 4 Overview: 11/21/2013 Pain controlled with Fenanyl BUILDING PERFORMANCE SPECIALIST, Lidoderm, Toradol, and Percocet. Supplement as needed. Hypotension 11/13/2013 11/16/2013 Overview: Filling pressures remain low. Norepi for goal MAP > 65. Cont fluid resuscitation as needed. 11/15/2013 much improved BP after fluid resuscitation in ICU. Will start gentle diuresing and low dose BB and monitor. Pre-op testing 11/01/2013 11/16/2013 Overview: Images from the original note were not included. [facility] Surgeon: Fernando Llanes M.D. Informed Consent Completed:yes CAD: No H & P completed: Yes PA/LAT: Completed CT: Completed MRI: N/A LE US: N/A Cath: Yes - reviewed: Yes Echo:Completed EKG: Completed EF %: 71 PI's: N/A Carotid: N/A Mapping: N/A Dental: Completed PFT's: Completed CBC, Coags, BMP, Mg, Phos Basename 11/19/13 0633 11/18/13 0506 11/17/13 0736 WBC 6.48 5.80 4.42 HB 8.7* 8.1* 7.7* HCT 26.8* 24.2* 23.6* PLT 323 226 169 INR -- -- -- APTT -- -- -- NA 140 138 138 K 4.4 4.2 3.8 CHLOR 102 103 101 CO2 27 25 27 BUN 9* 11 13 CREAT 0.90 0.84 0.83 GLUC 99 108* 102* CA 9.2 9.1 8.5 MG -- -- -- P -- -- -- UA: p HCG:N/A ABO/ABO Confirmed: Yes Blood ordered: Yes 2 SA Swab: Yes - results: positive - treated. Last Dose of Anticoagulation: asa 162 sub q heparin Op Note: yes Pacemaker Check: N/A Consults: none DM: No Cardiac Surgical prep: N/A SIGNATURE: Jackie Jc CNP CHECKED BY: arron DATE of SERVICE: 11/01/2013 TIME of SERVICE: 2:59 PM mwa 11/19 Mitral valve regurgitation 11/01/2013 0 11/16/2013 Overview: s/p MVr 01/201311/13/2013:MV repair with 31 mm De Leon band and valvuloplasty documented as of this encounter (statuses as of 08/16/2023) [facility] Bilateral impacted cerumen- Primary Impacted cerumen [facility] Diagnosis Bee sting, accidental or unintentional, initial encounter- Primary [facility] Diagnosis S/P MVR (mitral valve replacement)- Primary Heart valve replaced by other means [facility]* Diagnosis S/P MVR (mitral valve replacement)- Primary Heart valve replaced by other means [facility] Diagnosis Onset Date Resolution Status Encounter for screening for malignant neoplasm of colo n [facility] Work Phone: Evaluation note* Diagnosis S/P MVR (mitral valve replacement)- Primary Heart valve replaced by other means [facility] Diagnosis Impacted cerumen of right ear- Primary Impacted cerumen documented in [facility] Eustachian tube dysfunction, right- Primary Excessive cerumen in ear canal, bilateral [facility] Diagnosis Primary hypertension- Primary Unspecified essential hypertension Central sleep apnea Unspecified sleep apnea Overweight (BMI 25.0-29.9) Overweight History of cardiomyopathy Personal history of other diseases of circulatory system Mechanical heart valve present Heart valve replaced by other means [facility] Diagnosis Central sleep apnea- Primary Unspecified sleep apnea DOREEN (obstructive sleep apnea) Obstructive sleep apnea (adult) (pediatric) Central sleep apnea treated with adaptive servo-ventilation (ASV) device Facial rash Rash and other nonspecific skin eruption [facility] Diagnosis Generalized abdominal pain- Primary Abdominal pain, generalized [facility] Diagnosis Periumbilical pain- Primary Abdominal pain, periumbilic Gallstones Calculus of gallbladder without mention of cholecystitis or obstruction [facility] Diagnosis Periumbilical pain Abdominal pain, periumbilic Gallstones Calculus of gallbladder without mention of cholecystitis or obstruction [facility] Diagnosis Calculus of gallbladder without cholecystitis without obstruction- Primary Calculus of gallbladder without mention of cholecystitis or obstruction Serum total bilirubin elevated Jaundice, unspecified, not of documented in this encounter [facility] note* Diagnosis Mitral valve replaced Heart valve replaced by other means documented in this encounter [facility] note* Diagnosis Onset Date Resolution Status Abdominal pain acute Gallstones [facility] Work Phone: Evaluation note* Diagnosis Generalized postprandial abdominal pain- Primary Abdominal pain, generalized Elevated bilirubin Jaundice, unspecified, not of Multiple gallstones documented in this encounter [facility] note* Diagnosis Mitral valve replaced- Primary Heart valve replaced by other means documented in this encounter [facility] note* Diagnosis Mitral valve replaced Heart valve replaced by other means documented in this encounter [facility] note* Diagnosis Gross hematuria- Primary History of urethral stricture Personal history of other disorder of urinary system Nephrolithiasis Calculus of kidney Screening for prostate cancer Special screening for malignant neoplasm of prostate Incomplete bladder emptying documented in this encounter [facility] note* Diagnosis Mitral valve replaced Heart valve replaced by other means documented in this encounter [facility] note* Diagnosis Screening for genitourinary condition Screening for other and unspecified genitourinary condition documented in this encounter [facility] note* Diagnosis Lump on face- Primary Swelling, mass, or lump in head and neck documented in this encounter [facility] note* Diagnosis Mitral valve replaced Heart valve replaced by other means documented in this encounter [facility] note* Diagnosis Mechanical heart valve present- Primary Heart valve replaced by other means 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 Long-term (current) use of anticoagulants History of mitral valve replacement with mechanical valve Heart valve replaced by other means documented in this encounter [facility] note* Diagnosis Mechanical heart valve present- Primary Heart valve replaced by other means 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 Long-term (current) use of anticoagulants History of mitral valve replacement with mechanical valve Heart valve replaced by other means documented in this encounter [facility] note* Diagnosis Mechanical heart valve present- Primary Heart valve replaced by other means 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 Long-term (current) use of anticoagulants History of mitral valve replacement with mechanical valve Heart valve replaced by other means [facility] Diagnosis Rash and nonspecific skin eruption- Primary Rash and other nonspecific skin eruption [facility] Diagnosis URI, acute- Primary Acute upper respiratory infections of unspecified site [facility] Diagnosis Mechanical heart valve present- Primary Heart valve replaced by other means senior care (current) use of anticoagulants Long-term (current) use of anticoagulants History of mitral valve replacement with mechanical valve Heart valve replaced by other means [facility] Diagnosis Impacted cerumen of left ear- Primary Impacted cerumen [facility]* Diagnosis Calculus of gallbladder without cholecystitis without obstruction Calculus of gallbladder without mention of cholecystitis or obstruction [facility]* Diagnosis Periumbilical pain Abdominal pain, periumbilic [facility]* Diagnosis Mechanical heart valve present- Primary Heart valve replaced by other means 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 Long-term (current) use of anticoagulants History of mitral valve replacement with mechanical valve Heart valve replaced by other means [facility] noteNo assessment information [facility] Work Phone: [facility]* Diagnosis Gastroesophageal reflux disease with esophagitis without hemorrhage- Primary [facility]* Diagnosis Central sleep apnea- Primary Unspecified sleep apnea DOREEN (obstructive sleep apnea) Obstructive sleep apnea (adult) (pediatric) Central sleep apnea treated with adaptive servo-ventilation (ASV) device [facility] Diagnosis Pain- Primary Generalized pain [facility]* Diagnosis External hemorrhoid- Primary External hemorrhoids without mention of complication [facility]* Diagnosis Urinary frequency- Primary Injury of ear, initial encounter [facility] Diagnosis Posterior tibial tendon dysfunction- Primary Other disorders of synovium, tendon, and bursa Callus Corns and callosities [facility] Diagnosis Urinary frequency- Primary Recurrent UTI (urinary tract infection) Urinary tract infection, site not specified [facility] Diagnosis Mechanical heart valve present- Primary Heart valve replaced by other means 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 Long-term (current) use of anticoagulants History of mitral valve replacement with mechanical valve Heart valve replaced by other means [facility]* Diagnosis Bee sting, accidental or unintentional, initial encounter- Primary [facility]* Diagnosis Acute prostatitis- Primary Incomplete bladder emptying History of urethral stricture Personal history of other disorder of urinary system [facility]* Diagnosis Screening for genitourinary condition Screening for other and unspecified genitourinary condition [facility]* Diagnosis Acute prostatitis- Primary Incomplete bladder emptying History of urethral stricture Personal history of other disorder of urinary system [facility]* Diagnosis Screening for genitourinary condition Screening for other and unspecified genitourinary condition [facility]* Diagnosis S/P MVR (mitral valve replacement)- Primary Heart valve replaced by other means [facility] Diagnosis Posterior tibialis muscle dysfunction- Primary Other disorder of muscle, ligament, and fascia Posterior tibial tendon dysfunction Other disorders of synovium, tendon, and bursa [facility]* Diagnosis Posterior tibialis muscle dysfunction- Primary Other disorder of muscle, ligament, and fascia [facility]* Diagnosis Mechanical heart valve present- Primary Heart valve replaced by other means senior care (current) use of anticoagulants Long-term (current) use of anticoagulants History of mitral valve replacement with mechanical valve Heart valve replaced by other means [facility]* Diagnosis Gastroesophageal reflux disease with esophagitis without hemorrhage [facility]* Diagnosis Screening for genitourinary condition Screening for other and unspecified genitourinary condition [facility]* Diagnosis Mechanical heart valve present- Primary Heart valve replaced by other means 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 Long-term (current) use of anticoagulants History of mitral valve replacement with mechanical valve Heart valve replaced by other means [facility] Diagnosis Primary hypertension- Primary Unspecified essential hypertension Central sleep apnea treated with adaptive servo-ventilation (ASV) device Abdominal pain, unspecified abdominal location Hyperbilirubinemia Jaundice, unspecified, not of S/P MVR (mitral valve replacement) Heart valve replaced by other means 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 Long-term (current) use of anticoagulants Screening for depression Encounter for screening examination for other mental health and behavioral disorders [facility] Diagnosis Generalized abdominal pain- Primary Abdominal pain, generalized Elevated bilirubin Jaundice, unspecified, not of Calculus of gallbladder without cholecystitis without obstruction Calculus of gallbladder without mention of cholecystitis or obstruction Gastroesophageal reflux disease with esophagitis without hemorrhage Dysphagia, unspecified type [facility]* Diagnosis Incomplete bladder emptying- Primary History of urethral stricture Personal history of other disorder of urinary system [facility]* Diagnosis Screening for genitourinary condition Screening for other and unspecified genitourinary condition [facility]* Diagnosis Mechanical heart valve present- Primary Heart valve replaced by other means senior care (current) use of anticoagulants Long-term (current) use of anticoagulants History of mitral valve replacement with mechanical valve Heart valve replaced by other means [facility] Diagnosis S/P MVR (mitral valve replacement)- Primary Heart valve replaced by other means LBBB (left bundle branch block) Other left bundle branch block AV block, 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 atrioventricular block [facility]* Diagnosis Generalized abdominal pain Abdominal pain, generalized Dysphagia, unspecified type [facility]* Diagnosis Elevated bilirubin Jaundice, unspecified, not of Calculus of gallbladder without cholecystitis without obstruction Calculus of gallbladder without mention of cholecystitis or obstruction [facility]* Diagnosis Abnormal esophagram- Primary Nonspecific (abnormal) findings on radiological and other examination of gastrointestinal tract Periumbilical pain Abdominal pain, periumbilic Gastroesophageal reflux disease, unspecified whether esophagitis present [facility]* Diagnosis Mechanical heart valve present- Primary Heart valve replaced by other means senior care (current) use of anticoagulants Long-term (current) use of anticoagulants History of mitral valve replacement with mechanical valve Heart valve replaced by other means [facility] Diagnosis LBBB (left bundle branch block) [I44.7]- Primary Other left bundle branch block S/P MVR (mitral valve replacement) [Z95.2] Heart valve replaced by other means AV block, 1st degree [I44.0] First degree atrioventricular block [facility] Diagnosis Mechanical heart valve present- Primary Heart valve replaced by other means 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 Long-term (current) use of anticoagulants History of mitral valve replacement with mechanical valve Heart valve replaced by other means [facility] Diagnosis S/P MVR (mitral valve replacement)- Primary Heart valve replaced by other means Chest discomfort Other chest pain Abnormal stress test Other nonspecific abnormal cardiovascular system function study [facility]* Diagnosis S/P MVR (mitral valve replacement) Heart valve replaced by other means LBBB (left bundle branch block) Other left bundle branch block AV block, 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 atrioventricular block [facility]* Diagnosis Mechanical heart valve present- Primary Heart valve replaced by other means 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 Long-term (current) use of anticoagulants History of mitral valve replacement with mechanical valve Heart valve replaced by other means Abnormal stress test Other nonspecific abnormal cardiovascular system function study [facility] Diagnosis Gastroesophageal reflux disease with esophagitis without hemorrhage- Primary Dysphagia, unspecified type Calculus of gallbladder without cholecystitis without obstruction Calculus of gallbladder without mention of cholecystitis or obstruction 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 [facility]* Diagnosis Central sleep apnea- Primary Unspecified sleep apnea Central sleep apnea treated with adaptive servo-ventilation (ASV) device [facility] Diagnosis Mechanical heart valve present- Primary Heart valve replaced by other means 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 Long-term (current) use of anticoagulants History of mitral valve replacement with mechanical valve Heart valve replaced by other means [facility]* Diagnosis Impacted cerumen of left ear- Primary Impacted cerumen [facility]* Diagnosis Mechanical heart valve present- Primary Heart valve replaced by other means 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 Long-term (current) use of anticoagulants History of mitral valve replacement with mechanical valve Heart valve replaced by other means [facility] Diagnosis DOREEN (obstructive sleep apnea)- Primary Obstructive sleep apnea (adult) (pediatric) Central sleep apnea treated with adaptive servo-ventilation (ASV) device [facility] Author Kyaw Madison [facility] November 10, 2022 12:16pm Note Date/Time November 10, 2022 12:1 6pm [facility] Medical Records Department [address] [place] [address] History & Physical Exam 11/10/22 1215 MR#: [id number] Acct: [id number] Name: GEORGIE ELIZABETH Rep #:[id number] : 1970 52 From: Kyaw Madison DO PCP: GERONIMO THRASHER Status:[facility] [place] Location: [place] [address] History and Physical Date of Admission: 11/10/22 GEORGIE ELIZABETH, is a 52 M who presents to the office today for PMH obstructive cardiomyopathy requiring three open heart surgeries with septal myomectomy and mitral valve replacement with post op mitral insufficiency requiring use of blood thinners. FH colon cancer age 46. *[facility] established 7..22 for screening colonoscopy; OA attempted but too many comorbidities prevented this avenue. Denied GI symptoms today. Colonoscopy with Dr. Acuna, reports as normal. ? Colonoscopy 01.08.22 [facility] 5mm sessile ascending colon TA polyp; diverticulosis. OV 01.22. No Show PCP seen with abdominal pain. ? CT abd/pel 08.12.22 [facility] gallbladder stones of increasing size; nonobstructing left renal calculi; low attenuation renal lesion; colonic diverticulosis. ? US RUQ 08.13.22 [facility] hepatic steatosis; multiple shadowing gallstones. ? HIDA scan 08.21.22 [facility] EF 68% OV 5.8.23 he is having abdominal pain of RUQ with bloating; symptoms are occurring most of the time and are worsened with PO intake. ROS Const Constitutional: No anorexia, fatigue, fever(s), weight change or sleep problems Eyes Eyes: No change in vision ENT ENT: No abnormal hearing, difficulty swallowing, mouth lesions, tongue swelling or throat swelling Resp Respiratory: No cough or shortness of breath Cardio Cardiology: No chest pain at rest, chest pain with exertion, shortness of breathor dyspnea on exertion Gastro GI: No difficulty swallowing Genitourinary Male: No difficulty urinating or burning urination Musc Musculoskeletal: No joint pain, joint swelling, muscle weakness or decreased muscle mass Skin Skin: No hair loss in leg, yellowing of the eye, itchy eyes, rash, skin ulcer orskin swelling Neuro Neurology: No abnormal hearing, abnormal movements, confusion, unsteady gait/balance or memory loss Psych Psychiatric: No anxiety, No confusion and No memory loss Endo Endocrine: No fatigue or weight change Aller/Imm Allergy/Immunologic: No itchy eyes, throat swelling or tongue swelling Aly/Lymp Hematologic/Lymphatic: No easy bleeding, easy bruising or enlarged lymph nodes Exam Const General: cooperative and comfortable Nutritional Appearance: average body habitus and well nourished HENMT Head: normal to inspection Ears: hearing grossly normal bilaterally Nose: external nose normal Face and sinus: normal facial exam Mouth: oral mucosae normal Throat: posterior oropharynx normal Eyes General: appearance normal, both eyes and all related structures Neck Neck: normal visual inspection Chest Chest palpation & inspection: normal inspection of the chest and normal palpation of entire chest wall Resp Effort & Inspection: normal respiratory effort Auscultation: Bilateral: Clear to Auscultation Cardio Palpation: normal PMI Rate: regular rate Rhythm: regular rhythm GI Inspection: normal to inspection Auscultation: normal bowel sounds Percussion: normal to percussion Palpation: no hepatosplenomegaly Skin General: no rashes or lesions noted Neuro General: patient alert Extrem General: normal to inspection Psych Affect: normal affect Quality Reporting Tobacco Screening ([facility] 138) Smoking Status: Never smoker Assessment and Plan Assessment and Plan (1) Gallstones: Status: Chronic Plan: I do not think he needs evaluation for surgery at this time due to his cholestasis not involving any gallbladder wall thickening or poor ejection fraction. I think weight loss is contributing to the formation of his cholelithiasis. We will start him on ursodiol 300 mg p.o. twice daily. (2) Abdominal pain: Status: Acute Plan: The differential diagnosis for his abdominal pain does include gastroparesis, bile induced gastritis, small bacterial overgrowth, motility dysfunction of the small bowel and less likely exocrine pancreatic insufficiency. Also this could be medication side effect due to the multiple medicines including warfarin and aspirin that he needs to take for his history of hypertrophic cardiomyopathy. He has not experienced any chest pain or shortness of breath. He should undergoan upper endoscopy to evaluate his upper GI tract for possible complications from medicines that he is taking for his underlying heart disease, H. pylori associated gastritis or peptic ulcer disease, hypertrophic pyloric stenosis thatis associated with hypertrophic cardiomyopathy. I will also put him on Dexilantas opposed to sulcal fate on him as a postal as it could interfere with the absorption capacity of warfarin. There is some P450 in addition from sulcal fate administer ProSol that will definitely affect coagulation cascade in a patient on warfarin. I have examined the patient and the H&P has been reviewed. There are no clinicalchanges since date of exam. 11/10/22 1216 <Electronically signed by Kyaw Madison DO> Cosigner Signature (if applicable): CC: GERONIMO THRASHER; Kyaw Madison DO~ Signed [facility] Work Phone: Hospital Discharge instructions Additional Instructions Workup mild infection in the urine, might be clearing up as you have been on 2 days of antibiotics. White count 18. Normal creatinine 0.98. Your INR is 2.0. CT scan notes stones in your left kidney, there are none moving out to cause any problems. You have incidental gallstones. You were given Rocephin IV. Stop the Keflex, take cefuroxime as prescribed. Follow-up with your doctor. COVID and flu are [facility]WD[facility] Work Phone: Hospital Discharge instructions Additional Instructions Antibiotic ointment once a day. Please limit range of motion over that area as we discussed. Stitches will need to be removed in 10 days.[facility] Work Phone: Reason for referral (narrative)* Outpatient Procedure (Routine) - Pending Review Specialty Diagnoses / Procedures Referred By Sandy t Referred To [facility] Diagnoses S/P MVR (mitral valve replacement) Procedures ECG COMPLETE ECG ROUTINE ECG W/LEAST 12 LDS W/I&R Janae Cortes MD [address] [place] [address] [address] Referral ID Status Reason Start Date Expiration Date Visits Requested Visits Authorized [id number] Pending Review Auto-Generat ed Referral 12/18/2021 12/18/2022 1 1 [facility] for referral (narrative)* Outpatient Procedure (Routine) - Authorized Specialty Diagnoses / Procedures Referred By Contac t Referred To Contact [facility] Diagnoses S/P MVR (mitral valve replacement) Procedures ECHO ECHO TTHRC R-T 2D W/WOM-MODE COMPL SPEC&COLR D Janae Cortes MD [address] [place] [address] [place] [id number] Referral ID Status Reason Start Date Expiration Date Visits Requested Visits Authorized [id number] Authorized Auto-Generat ed Referral 12/18/2021 12/18/2022 1 1 [facility] for referral (narrative)* Diagnostic Procedure Only (Urgent) - Authorized Specialty Diagnoses / Procedures Referred By Contac t Referred To Contact US IMAGING Diagnoses Periumbilical pain Gallstones Procedures US ABD RIGHT UPPER QUADRANT US ABDOMINAL REAL TIME W/IMAGE LIMITED Dina Cope APRN.CNP [address] [place] [address] Us Imaging Referral ID Status Reason Start Date Expiration Date Visits Requested Visits Authorized [id number] Authorized Auto-Generat ed Referral 08/12/2022 09/11/2023 1 1 [facility] for referral (narrative)* Diagnostic Procedure Only (Urgent) - Closed Specialty Diagnoses / Procedures Referred By Contac t Referred To Contact US IMAGING Diagnoses Periumbilical pain Gallstones Procedures US ABD RIGHT UPPER QUADRANT US ABDOMINAL REAL TIME W/IMAGE LIMITED Dina Cope APRN.SHEET METAL WORKER APPRENTICE [address] [place] [address] Us Imaging Referral ID Status Reason Start Date Expiration Date V isits Requested Visits Authorized [id number] Closed Auto-Generate d Referral 08/12/2022 09/11/2023 1 1 [facility] for referral (narrative)* Diagnostic Procedure Only (Routine) - Authorized Specialty Diagnoses / Procedures Referred By Contac t Referred To Contact MOLECULAR & FUNCTIONAL IMAGING Diagnoses Calculus of gallbladder without cholecystitis without obstruction Procedures NM HEPATOBILIARY W EF AND/OR RX HEPATOBIL SYST IMAG INC GB W/PHARMA INTERVENJ Dina Cope APRN.SHEET METAL WORKER APPRENTICE [address] [place] [address] Molecular & Functional Imaging [address] [place] [address] Referral ID Status Reason Start Date Expiration Date Visits Requested Visits Authorized [id number] Authorized Auto-Generat ed Referral 08/14/2022 09/13/2023 1 1 [facility] for referral (narrative)* Diagnostic Procedure Only (Routine) - Closed Specialty Diagnoses / Procedures Referred By Contac t Referred To Contact MOLECULAR & FUNCTIONAL IMAGING Diagnoses Calculus of gallbladder without cholecystitis without obstruction Procedures NM HEPATOBILIARY W EF AND/OR RX HEPATOBIL SYST IMAG INC GB W/PHARMA INTERVENJ Dina Cope, 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 [address] [place] [address] Molecular & Functional Imaging [address] [place] [address] Referral ID Status Reason Start Date Expiration Date V isits Requested Visits Authorized [id number] Closed Auto-Generate d Referral 08/14/2022 09/13/2023 1 1 [facility] for referral (narrative)* Diagnostic Procedure Only (Routine) - Authorized Specialty Diagnoses / Procedures Referred By Contac t Referred To Contact [facility] Diagnoses Pain Procedures XR FOOT GENERAL 3V AP/LAT/OBL BILATERAL RADEX FOOT COMPLETE MINIMUM 3 VIEWS Georgie Reynoso [address] [place] [address] Radio General [facility] [address] [place] [address] Referral ID Status Reason Start Date Expiration Date Visits Requested Visits Authorized [id number] Authorized Auto-Generat ed Referral 08/16/2023 09/14/2024 1 1 [facility] for referral (narrative)* Diagnostic Procedure Only (Routine) - Authorized Specialty Diagnoses / Procedures Referred By Contac t Referred To Contact US IMAGING Diagnoses Elevated bilirubin Calculus of gallbladder without cholecystitis without obstruction Procedures US ABD RIGHT UPPER QUADRANT US ABDOMINAL REAL TIME W/IMAGE LIMITED Gayathri Sky PA-C [address] [place] [address] [place] [address] Referral ID Status Reason Start Date Expiration Date Visits Requested Visits Authorized [id number] Authorized Auto-Generat ed Referral 4 05/17/2025 1 1 * Diagnostic Procedure Only (Routine) - Authorized Specialty Diagnoses / Procedures Referred By Contac t Referred To Contact XR IMAGING Diagnoses Epigastric pain Dysphagia, unspecified type Procedures XR ESOPHAGRAM RADIOLOGIC EXAM ESOPHAGUS SINGLE CONTRAST STUDY Gayathri Sky PA-C [address] [place] [address] [place] [address] Referral ID Status Reason Start Date Expiration Date Visits Requested Visits Authorized [id number] Authorized Auto-Generat ed Referral 4 05/17/2025 1 1 [facility] Outpatient Procedure (Routine) - New Request Specialty Diagnoses / Procedures Referred By Sandy t Referred To Contact [facility] [place] Diagnoses S/P MVR (mitral valve replacement) LBBB (left bundle branch block) AV block, 1st degree Procedures ECG COMPLETE ECG ROUTINE ECG W/LEAST 12 LDS W/I&R Janae Cortes MD [address] [place] [address] [address] Referral ID Status Reason Start Date Expiration Date Visits Requested Visits Authorized [id number] New Request Auto-Generat ed Referral 05/19/2024 05/19/2025 1 1 * Outpatient Procedure (Routine) - New Request Specialty Diagnoses / Procedures Referred By Sandy patel Referred To Contact [facility] [place] Diagnoses S/P MVR (mitral valve replacement) LBBB (left bundle branch block) AV block, 1st degree Procedures ECHO ECHO TTHRC R-T 2D W/WOM-MODE COMPL SPEC&COLR D Janae Cortes MD [address] [place] [address] [address] Referral ID Status Reason Start Date Expiration Date Visits Requested Visits Authorized [id number] New Request Auto-Generat ed Referral 05/19/2024 05/19/2025 1 1 * Transition of Care (Routine) - Authorized Specialty Diagnoses / Procedures Referred By Sandy t Referred To Contact [facility] [place] Procedures CARDIOVASCULAR MEDICINE OP FOLLOW UP APPT ORDER Janae Cortes MD [address] [place] [address] [address] Referral ID Status Reason Start Date Expiration Date Visits Requested Visits Authorized [id number] Authorized PCP Requested Referral 05/19/2025 1 1 * Diagnostic Procedure Only (Routine) - New Request Specialty Diagnoses / Procedures Referred By Contac t Referred To Contact MOLECULAR & FUNCTIONAL IMAGING Diagnoses S/P MVR (mitral valve replacement) LBBB (left bundle branch block) AV block, 1st degree Procedures NM CARDIAC PERF STRESS/PHARM MYOCARDIAL SPECT MULTIPLE STUDIES Janae Cortes MD [address] [place] [address] Molecular & Functional Imaging [address] [place] [id number] Referral ID Status Reason Start Date Expiration Date Visits Requested Visits Authorized [id number] New Request Auto-Generat ed Referral 05/19/2024 06/18/2025 1 1 [facility] for referral (narrative)* Diagnostic Procedure Only (Routine) - Closed Specialty Diagnoses / Procedures [facility] Referred To Contact US IMAGING Diagnoses Elevated bilirubin Calculus of gallbladder without cholecystitis without obstruction Procedures US ABD RIGHT UPPER QUADRANT US ABDOMINAL REAL TIME W/IMAGE LIMITED Gayathri Sky PA-C [address] [place] [address] [place] [address] Referral ID Status Reason Start Date Expiration Date V isits Requested Visits Authorized [id number] Closed Auto-Generat ed Referral Clearance Not Met - Pt Rescheduled/ Cancelled/Ch ose Not to Proceed 04/17/2024 05/17/2025 1 1 [facility] for referral (narrative)* Outpatient Procedure (Routine) - New Request Specialty Diagnoses / Procedures [facility] Referred To Contact [facility] Diagnoses Periumbilical pain Abnormal esophagram Gastroesophageal reflux disease, unspecified whether esophagitis present Procedures EGD DIAGNOSTIC ESOPHAGOGASTRODUODENOSC OPY TRANSORAL DIAGNOSTIC Gayathri Sky PA-C [address] [place] [address] [facility] [place] [address] [place] [address] Referral ID Status Reason Start Date Expiration Date Visits Requested Visits Authorized [id number] New Request Auto-Generat ed Referral 05/25/2024 05/25/2025 1 1 [facility] for visit Narrative* Diagnostic Procedure Only (Urgent) - Closed Specialty Diagnoses / Procedures Referred By Contac t Referred To Contact US IMAGING Diagnoses Periumbilical pain Gallstones Procedures US ABD RIGHT UPPER QUADRANT US ABDOMINAL REAL TIME W/IMAGE LIMITED Anatoliy, Dina, 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 [address] [place] [address] Us Imaging Referral ID Status Reason Start Date Expiration Date V isits Requested Visits Authorized [id number] Closed Auto-Generate d Referral 08/12/2022 09/11/2023 1 1 [facility] for visit Narrative* Diagnostic Procedure Only (Routine) - Closed Specialty Diagnoses / Procedures Referred By Contac t Referred To Contact US IMAGING Diagnoses Elevated bilirubin Calculus of gallbladder without cholecystitis without obstruction Procedures US ABD RIGHT UPPER QUADRANT US ABDOMINAL REAL TIME W/IMAGE LIMITED Gayathri Sky PA-C [address] [place] [address] [place] [address] Referral ID Status Reason Start Date Expiration Date V isits Requested Visits Authorized [id number] Closed Auto-Generat ed Referral Clearance Not Met - Pt Rescheduled/ Cancelled/Ch ose Not to Proceed 04/17/2024 05/17/2025 1 1 [facility] Summary Purpose Family History Relationship Condition Age at Onset Recorded Date/T james sister Malignant neoplasm of colon Unknown father Coronary artery disease Unknown Myocardial infarction Unknown Advance Directives Documents on File Type Date Recorded Patient Palletizer Expl anation Advance Directives and Living Will Power of Wellness Program Manager Documents on File Type Date Recorded Patient Palletizer Expl anation ACP-Advance Directive ACP-Power of Wellness Program Manager Advance Directive Response Recorded Date/ Time Living Will No January 01, 2 022 3:35pm Power of Wellness Program Manager No January 01, 2022 3:35pm Advance Directive Response Recorded Date/ Time Living Will No March 23, 2 022 12:57pm Power of Wellness Program Manager No March 23, 2022 12:57pm Advance Directive Response Recorded Date/ Time Name of Medical Power of Wellness Program Manager JOSE RAMON WELCH November 06, 2022 3:55pm Living Will No November 06, 2022 3 :55pm Power of Wellness Program Manager Yes November 06, 2022 3:55pm Advance Directive Response Recorded Date/ Time Living Will No April 20, 2 023 6:33pm Power of Wellness Program Manager Yes April 20, 2023 6:33pm Name of Medical Power of Wellness Program Manager DANISHA April 20, 2023 6:33pm Advance Directive Response Recorded Date/ Time Living Will No June 05 1:20am Power of Wellness Program Manager No June 05, 2024 1:20am Living Will No July 07, 2024 8:08am Power of Wellness Program Manager No July 07 8:08am Chief Complaint and Reason for Visit Chief Complaint Amb Documentation Consult Reason for Visit Encounter for screen ing for malignant neoplasm of colon Chief Complaint STILL HAVING PAIN DELAYED GASTRIC EMPTYING Reason for Visit Abdominal pain Gallstones Chief Complaint FEVER Chief Complaint Admit Date ACUTE FEBRILE ILLNESS, SIRS June 12:19am ACUTE FEBRILE ILLNESS, SIRS June 11:09am ACUTE FEBRILE ILLNESS, SIRS June 11:12am ACUTE FEBRILE ILLNESS, SIRS June 2:51pm LAC July 07, 2024 8:00 am Reason for Visit Admit Date Acute febrile illness June 05, 2024 12:19am Chest pain June 05, 2024 1 2:19am Lactic acidosis June 05, 2024 1 2:19am Pneumonia June 05, 2024 1 2:19am Sepsis June 05, 2024 1 2:19am Chronic anticoagulation June 05 12:19am H/O mitral valve replacement with mechan ical valve June 05, 2024 12:19am Hypertrophic obstructive cardiomyopathy June 05, 2024 12:19am Obesity (BMI 30.0-34.9) June 05 12:19am Reason for Referral Specialty Diagnoses / Procedures Referred By Contac t Referred To Contact General Surgery Diagnoses Elevated bilirubin Multiple gallstones Generalized postprandial abdominal pain Procedures CONSULT TO GENERAL SURGERY OFFICE/OUTPATIENT NEW HIGH MDM 60-74 MINUTES Gayathri Sky PA-C [address] [place] [address] Referral ID Status Reason Start Date Expiration Date Visits Requested Visits Authorized [id number] Authorized PCP Requested Referral 10/19/2022 10/19/2023 1 1 Specialty Diagnoses / Procedures Referred By Contac t Referred To Contact CT IMAGING Diagnoses Generalized abdominal pain Periumbilical pain Procedures CT ABD/PEL W IVCON CT ABD & PELVIS W/CONTRAST Older, Dina, 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 [address] [place] [address] [place] [address] Referral ID Status Reason Start Date Expiration Date V isits Requested Visits Authorized [id number] Closed Auto-Generat ed Referral Patient Cleared - Admin/Chairm an/Director advise to proceed or did not respond 08/12/2022 02/08/2023 2 2 Specialty Diagnoses / Procedures Referred By Contac t Referred To Contact [facility] Diagnoses Posterior tibial tendon dysfunction Procedures CONSULT TO PHYSICAL THERAPY PHYSICAL THERAPY EVALUATION HIGH COMPLEX 45 MINS Georgie Reynoso [address] [place] [address] [facility] [place] [address] [place] [address] Referral ID Status Reason Start Date Expiration Date Visits Requested Visits Authorized [id number] Pending Review Auto-Generat ed Referral 09/23/2023 09/22/2024 1 1 Specialty Diagnoses / Procedures Referred By Contac t Referred To Contact XR IMAGING Diagnoses Epigastric pain Dysphagia, unspecified type Procedures XR ESOPHAGRAM RADIOLOGIC EXAM ESOPHAGUS SINGLE CONTRAST STUDY Gayathri Sky PA-C [address] [place] [address] [place] [address] Referral ID Status Reason Start Date Expiration Date V isits Requested Visits Authorized [id number] Closed Auto-Generat ed Referral Clearance Not Met - Pt Rescheduled/ Cancelled/Ch ose Not to Proceed 05/09/2024 05/02/2025 1 1 Health Concerns Infection Onset Date Last Indicated Resolved Time COVID-19 Rule-Out 01/13/2023 01/13/2023 Infection Onset Date Last Indicated Resolved Time COVID-19 Rule-Out 01/13/2023 01/13/2023 01/14/2023 9:43 AM EDT COVID-19 Confirmed 01/13/2023 01/13/2023 Additional Source Comments (unrecognized sect ion and content) No Status Records FoundNo Status Records FoundNo Status Records FoundNo Status Records FoundNo Status Records FoundNo Status Records FoundNo Status Records FoundNo Status Records Found INFORMATION SOURCE (unrecogn ized section and content) DATE CREATED AUTHOR 10/26/2017 [facility] [employer] DATE CREATED AUTHOR AUTHOR'S ORGANIZ ATION 11/26/2018 [employer] DATE CREATED AUTHOR AUTHOR'S ORGANIZ ATION 09/25/2021 [facility] DATE CREATED AUTHOR AUTHOR'S ORGANIZ ATION 02/22/2022 [facility] DATE CREATED AUTHOR AUTHOR'S ORGANIZ ATION 02/05/2023 [facility] DATE CREATED AUTHOR AUTHOR'S ORGANIZ ATION 05/26/2024 [facility] DATE CREATED AUTHOR AUTHOR'S ORGANIZ ATION 10/04/2024 [facility] DATE CREATED AUTHOR AUTHOR'S ORGANIZ ATION 10/13/2024 [facility] Care Teams (unrecognized sec tion and content) Dynamometer Tuner Relationship Specialty Start Date End Date Geronimo Thrasher MD [address] [place] [address] [place] [address] PCP - General 10/04/14 Dynamometer Tuner Relationship Specialty Start Date End Date Geronimo Thrasher MD [facility] [place] [address] PCP - General 10/04/14 Dynamometer Tuner Relationship Specialty Start Date End Date Geronimo Thrasher MD [address] [place] [address] [place] [address] PCP - General 10/04/14 Dynamometer Tuner Relationship Specialty Start Date End Date Geronimo Thrasher PCP - General Internal Medicine 09/19/13 Janae Cortes MD [address] [place] [address] Primary Staff Physician Cardiology 07/19/18 Dynamometer Tuner Relationship Specialty Start Date End Date Geronimo Thrasher PCP - General Internal Medicine 09/19/13 Janae Cortes MD [address] [place] [address] Primary Staff Physician Cardiology 07/19/18 Dynamometer Tuner Relationship Specialty Start Date End Date Geronimo Thrasher MD [address] [place] [address] [place] [address] PCP - General 10/04/14 Dynamometer Tuner Relationship Specialty Start Date End Date Geornimo Thrasher PCP - General Internal Medicine 09/19/13 Janae Cortes MD [address] [place] [address] Primary Staff Physician Cardiology 07/19/18 Dynamometer Tuner Relationship Specialty Start Date End Date Geronimo Thrasher PCP - General Internal Medicine 09/19/13 Janae Cortes MD [address] [place] [address] Primary Staff Physician Cardiology 07/19/18 Dynamometer Tuner Relationship Specialty Start Date End Date Geronimo Thrasher MD [address] [place] [address] [place] [address] PCP - General 10/04/14 Dynamometer Tuner Relationship Specialty Start Date End Date Geronimo Thrasher MD PCP - General Internal Medicine 09/19/13 Janae Cortes MD [address] [place], [place] [id number] Primary Staff Physician Cardiology 07/19/18 Dynamometer Tuner Relationship Specialty Start Date End Date Geronimo Thrasher MD PCP - General Internal Medicine 09/19/13 Janae Cortes MD [address] [place] [address] Primary Staff Physician Cardiology 07/19/18 Dynamometer Tuner Relationship Specialty Start Date End Date Geronimo Thrasher MD PCP - General Internal Medicine 09/19/13 Janae Cortes MD [address] [place] [address] Primary Staff Physician Cardiology 07/19/18 Dynamometer Tuner Relationship Specialty Start Date End Date Saurav Bob MD [address] [place] [address] PCP - General Internal Medicine 06/19/22 Janae Cortes MD [address] [place] [address] Primary Staff Physician Cardiology 07/19/18 Dynamometer Tuner Relationship Specialty Start Date End Date Saurav Bob MD [address] [place] [address] PCP - General Internal Medicine 06/19/22 Janae Cortes MD [address] [facility] [place], [place] [id number] Primary Staff Physician Cardiology 07/19/18 Dynamometer Tuner Relationship Specialty Start Date End Date Saurav Bob MD [address] [place] [address] PCP - General Internal Medicine 06/19/22 Janae Cortes MD [address] [place], [place] [id number] Primary Staff Physician Cardiology 07/19/18 Dynamometer Tuner Relationship Specialty Start Date End Date Geronimo Thrasher MD [address] [place] [address] PCP - General 10/04/14 Dynamometer Tuner Relationship Specialty Start Date End Date Saurav Bob MD [address] [place] [address] PCP - General Internal Medicine 06/19/22 Janae Cortes MD [address] [place] [address] Primary Staff Physician Cardiology 07/19/18 Dynamometer Tuner Relationship Specialty Start Date End Date Saurav Bob MD [address] [place] [address] PCP - General Internal Medicine 06/19/22 Janae Cortes MD [address] [place] [address] Primary Staff Physician Cardiology 07/19/18 Dynamometer Tuner Relationship Specialty Start Date End Date Saurav Bob MD [address] [place] [address] PCP - General Internal Medicine 06/19/22 Janae Cortes MD [address] [place] [address] Primary Staff Physician Cardiology 07/19/18 Dynamometer Tuner Relationship Specialty Start Date End Date Saurav Bob MD [address] [place] [address] PCP - General Internal Medicine 06/19/22 Janae Cortes MD [address] [place], [place] [id number] Primary Staff Physician Cardiology 07/19/18 Dynamometer Tuner Relationship Specialty Start [place] [address] [place] [address] PCP - General 10/04/14 Dynamometer Tuner Relationship Specialty Start Date End Date Saurav Bob MD [address] [place], [place] [address] PCP - General Internal Medicine 06/19/22 Janae Cortes MD [address] [place] [address] Primary Staff Physician Cardiology 07/19/18 Team Status: Active Member Role Status Dates Out of [facility] Doctor Family Provider Active GERONIMO THRASHER Primary Care Provider Active Team Status: Inactive Member Role Status Dates Dr. Kyaw Madison DO Attending Provider Active Team Status: Inactive Member Role Status Dates Dr. Kyaw Madison DO Attending Provider, Referring Provider Active ANNA MARIE YEE Primary Care Provider Active Dynamometer Tuner Relationship Specialty Start Date End Date Saurav Bob MD [address] [place] [address] PCP - General Internal Medicine 06/19/22 Janae Cortes MD [address] [place] [address] Primary Staff Physician Cardiology 07/19/18 Dynamometer Tuner Relationship Specialty Start Date End Date Geronimo Thrasher MD [address] [place] [address] [place], [place] [address] PCP - General 10/04/14 Team Status: Active Member Role Status Dates Dr. Card Friend , DO Attending Provid er, Referring Provider, Other Provider Active ANNA MARIE YEE Primary Care Provider Active Dynamometer Tuner Relationship Specialty Start Date End Date Geronimo Thrasher MD [address] [place] [address] [address] [place], [place] [address] PCP - General 10/04/14 Dynamometer Tuner Relationship Specialty Start Date End Date Saurav Bob MD [address] [place], [place] [address] PCP - General Internal Medicine 06/19/22 Janae Cortes MD [address] [place] [address] Primary Staff Physician Cardiology 07/19/18 Dynamometer Tuner Relationship Specialty Start Date End Date Geronimo Thrasher MD [address] [place] [address] [place] [address] PCP - General 10/04/14 Dynamometer Tuner Relationship Specialty Start Date End Date Saurav Bob MD [address] [place], [place] [id number] PCP - General Internal Medicine 06/19/22 Janae Cortes MD [address] [place] [address] Primary Staff Physician Cardiology 07/19/18 Dynamometer Tuner Relationship Specialty Start Date End Date Saurav Bob MD [address] [place] [address] PCP - General Internal Medicine 06/19/22 Janae Cortes MD [address] [place] [address] Primary Staff Physician Cardiology 07/19/18 Dynamometer Tuner Relationship Specialty Start Date End Date Saurav Bob MD [address] [place] [address] PCP - General Internal Medicine 06/19/22 Janae Cortes MD [address] [place] [address] Primary Staff Physician Cardiology 07/19/18 13, Pharmacist [address] [place] [address] Pharmacist Pharmacy 12/23/22 Dynamometer Tuner Relationship Specialty Start Date End Date Saurav Bob MD [address] [place] [address] PCP - General Internal Medicine 06/19/22 Janae Cortes MD [address] [place] [address] Primary Staff Physician Cardiology 07/19/18 13, Pharmacist [address] [place] [address] Pharmacist Pharmacy 12/23/22 Dynamometer Tuner Relationship Specialty Start Date End Date Saurav Bob MD [address] [place], [place] [address] PCP - General Internal Medicine 06/19/22 Janae Cortes MD [address] [place] [address] Primary Staff Physician Cardiology 07/19/18, Pharmacist [address] [place] [address] Pharmacist Pharmacy 12/23/22 Dynamometer Tuner Relationship Specialty Start Date End Date Saurav Bob MD [address] [place] [address] PCP - General Internal Medicine 06/19/22 Janae Cortes MD [address] [place] [address] Primary Staff Physician Cardiology 07/19/18, Pharmacist [address] [place] [address] Pharmacist Pharmacy 12/23/22 Dynamometer Tuner Relationship Specialty Start Date End Date Saurav Bob MD [address] [place] [address] PCP - General Internal Medicine 06/19/22 Janae Cortes MD [address] [place] [address] Primary Staff Physician Cardiology 07/19/18, Pharmacist [address] [place] [address] Pharmacist Pharmacy 12/23/22 Dynamometer Tuner Relationship Specialty Start Date End Date Saurav Bob MD [address] [place] [address] PCP - General Internal Medicine 06/19/22 Janae Cortes MD [address] [place] [address] Primary Staff Physician Cardiology 07/19/18 13, Pharmacist [address] [place] [address] Pharmacist Pharmacy 12/23/22 Dynamometer Tuner Relationship Specialty Start Date End Date Geronimo Thrasher MD [address] [place] [address] [place] [address] PCP - General 10/04/14 Dynamometer Tuner Relationship Specialty Start Date End Date Saurav Bob MD [address] [place], [place] [address] PCP - General Internal Medicine 06/19/22 Janae Cortes MD [address] [place] [address] Primary Staff Physician Cardiology 07/19/18, Pharmacist [id number] [place] [address] Pharmacist Pharmacy 12/23/22 Dynamometer Tuner Relationship Specialty Start Date End Date Saurav Bob MD [address] [place], [place] [address]671 PCP - General Internal Medicine 06/19/22 Janae Cortes MD [address] [place] [address] Primary Staff Physician Cardiology 07/19/18, Pharmacist [address] [place] [address] Pharmacist Pharmacy 12/23/22 Dynamometer Tuner Relationship Specialty Start Date End Date Saurav Bob MD [address] [place], [place] [id number] PCP - General Internal Medicine 06/19/22 Janae Cortes MD [address] [place], [place] [address] Primary Staff Physician Cardiology 07/19/18 Dynamometer Tuner Relationship Specialty Start Date End Date Saurav Bob MD [address] [place] [address]441 PCP - General Internal Medicine 06/19/22 Janae Cortes MD [address] [place], [place] [id number] Primary Staff Physician Cardiology 07/19/18 Team Status: Active Member Role Status Dates Out of [facility] Doctor Family Provider Active No Primary Care Physician Primary Care Provider Active Team Status: Inactive Member Role Status Dates Dr. Francisco De La Torre , DO Emergency Provider Active No Primary Care Physician Primary Care Provider Active Dynamometer Tuner Relationship Specialty Start Date End Date Saurav Bob MD [address] [place], [place] [id number] PCP - General Internal Medicine 06/19/22 Janae Cortes MD [address] [place] [address] Primary Staff Physician Cardiology 07/19/18 13, Pharmacist [id number] [place] [address] Pharmacist Pharmacy 12/23/22 Dynamometer Tuner Relationship Specialty Start Date End Date Saurav Bob MD [address] [place] [address] PCP - General Internal Medicine 06/19/22 Janae Cortes MD [address] [place] [address] Primary Staff Physician Cardiology 07/19/18 13, Pharmacist [address] [place] [address] Pharmacist Pharmacy 12/23/22 Dynamometer Tuner Relationship Specialty Start Date End Date Saurav Bob MD [address] [place] [address] PCP - General Internal Medicine 06/19/22 Janae Cortes MD [address] [place] [address] Primary Staff Physician Cardiology 07/19/18, Pharmacist [phone] [place] [address] Pharmacist Pharmacy 12/23/22 Dynamometer Tuner Relationship Specialty Start Date End Date Saurav Bob MD [address] [place] [address] PCP - General Internal Medicine 06/19/22 Janae Cortes MD [address] [place] [address] Primary Staff Physician Cardiology 07/19/18, Pharmacist [id number] [place] [address] Pharmacist Pharmacy 12/23/22 Dynamometer Tuner Relationship Specialty Start Date End Date Saurav Bob MD [address] [place] [address] PCP - General Internal Medicine 06/19/22 Janae Cortes MD [address] [place] [address] Primary Staff Physician Cardiology 07/19/18 13, Pharmacist [address] [place] [address] Pharmacist Pharmacy 12/23/22 Dynamometer Tuner Relationship Specialty Start Date End Date Saurav Bob MD [address] [place] [address] PCP - General Internal Medicine 06/19/22 Janae Cortes MD [address] [place] [address] Primary Staff Physician Cardiology 07/19/18, Pharmacist [phone] [place] [address] Pharmacist Pharmacy 12/23/22 Dynamometer Tuner Relationship Specialty Start Date End Date Saurav Bob MD [address] [place] [address] PCP - General Internal Medicine 06/19/22 Janae Cortes MD [address] [place] [address] Primary Staff Physician Cardiology 07/19/18, Pharmacist [phone] [place] [address] Pharmacist Pharmacy 12/23/22 Dynamometer Tuner Relationship Specialty Start Date End Date Saurav Bob MD [address] [place] [address] PCP - General Internal Medicine 06/19/22 Janae Cortes MD [address] [place] [address] Primary Staff Physician Cardiology 07/19/18, Pharmacist [phone] [place] [address] Pharmacist Pharmacy 12/23/22 Dynamometer Tuner Relationship Specialty Start Date End Date Saurav Bob MD [address] [place] [address] PCP - General Internal Medicine 06/19/22 Janae Cortes MD [address] [place] [address] Primary Staff Physician Cardiology 07/19/18, Pharmacist [phone] [place] [address] Pharmacist Pharmacy 12/23/22 Dynamometer Tuner Relationship Specialty Start Date End Date Saurav Bob MD [address] [place] [address] PCP - General Internal Medicine 06/19/22 Janae Cortes MD [address] [place] [address] Primary Staff Physician Cardiology 07/19/18, Pharmacist [phone] [place] [address] Pharmacist Pharmacy 12/23/22 Dynamometer Tuner Relationship Specialty Start Date End Date Saurav Bob MD [address] [place] [address] PCP - General Internal Medicine 06/19/22 Janae Cortes MD [address] [place] [address] Primary Staff Physician Cardiology 07/19/18, Pharmacist [address] [place] [address] Pharmacist Pharmacy 12/23/22 Dynamometer Tuner Relationship Specialty Start Date End Date Saurav Bob MD [address] [place] [address] PCP - General Internal Medicine 06/19/22 Janae Cortes MD [address] [place] [address] Primary Staff Physician Cardiology 07/19/18, Pharmacist [phone] [place] [address] Pharmacist Pharmacy 12/23/22 Dynamometer Tuner Relationship Specialty Start Date End Date Saurav Bob MD [address] [place] [address] PCP - General Internal Medicine 06/19/22 Janae Cortes MD [address] [place] [address] Primary Staff Physician Cardiology 07/19/18, Pharmacist [address] [place] [address] Pharmacist Pharmacy 12/23/22 Dynamometer Tuner Relationship Specialty Start Date End Date Saurav Bob MD [address] [place] [address] PCP - General Internal Medicine 06/19/22 Janae Cortes MD [address] [place] [address] Primary Staff Physician Cardiology 07/19/18, Pharmacist [phone] [place] [address] Pharmacist Pharmacy 12/23/22 Dynamometer Tuner Relationship Specialty Start Date End Date Saurav Bob MD [address] [place] [address] PCP - General Internal Medicine 06/19/22 Janae Cortes MD [address] [place] [address] Primary Staff Physician Cardiology 07/19/18 13, Pharmacist [address] [place] [address] Pharmacist Pharmacy 12/23/22 Dina Joyce, 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 [address] [place] [address] Home Health Provider Internal Medicine 04/10/24 Dynamometer Tuner Relationship Specialty Start Date End Date Saurav Bob MD [address] [place] [address] PCP - General Internal Medicine 06/19/22 Janae Cortes MD [address] [place] [address] Primary Staff Physician Cardiology 07/19/18 13, Pharmacist [address] [place] [address] Pharmacist Pharmacy 12/23/22 Dina Joyce, 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 [address] [place] [address] Home Health Provider Internal Medicine 04/10/24 Dynamometer Tuner Relationship Specialty Start Date End Date Saurav Bob MD [address] [place] [address] PCP - General Internal Medicine 06/19/22 Janae Cortes MD [address] [place] [address] Primary Staff Physician Cardiology 07/19/18 13, Pharmacist [address] [place] [address] Pharmacist Pharmacy 12/23/22 Dina Joyce, 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 [address] [place] [address] Home Health Provider Internal Medicine 04/10/24 Dynamometer Tuner Relationship Specialty Start Date End Date Saurav Bob MD [address] [place] [address] PCP - General Internal Medicine 06/19/22 Janae Cortes MD [address] [place] [address] Primary Staff Physician Cardiology 07/19/18, Pharmacist [address] [place] [address] Pharmacist Pharmacy 12/23/22 Dina Joyce, 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 [address] [place] [address] Home Health Provider Internal Medicine 04/10/24 Dynamometer Tuner Relationship Specialty Start Date End Date Saurav Bob MD [address] [place] [address] PCP - General Internal Medicine 06/19/22 Janae Cortes MD [address] [place] [address] Primary Staff Physician Cardiology 07/19/18 13, Pharmacist [address] [place] [address] Pharmacist Pharmacy 12/23/22 Dina Joyce, 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 [address] [place] [address] Home Health Provider Internal Medicine 04/10/24 Dynamometer Tuner Relationship Specialty Start Date End Date Saurav Bob MD [address] [place] [address] PCP - General Internal Medicine 06/19/22 Janae Cortes MD [address] [place] [address] Primary Staff Physician Cardiology 07/19/18 13, Pharmacist [phone] [place] [address] Pharmacist Pharmacy 12/23/22 Dina Joyce, 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 [address] [place] [address] Home Health Provider Internal Medicine 04/10/24 Dynamometer Tuner Relationship Specialty Start Date End Date Saurav Bob MD [address] [place] [address] PCP - General Internal Medicine 06/19/22 Janae Cortes MD [address] [place] [address] Primary Staff Physician Cardiology 07/19/18 13, Pharmacist [phone] [place] [address] Pharmacist Pharmacy 12/23/22 Dina Joyce, 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 [address] [place] [address] Home Health Provider Internal Medicine 04/10/24 Dynamometer Tuner Relationship Specialty Start Date End Date Saurav Bob MD [address] [place] [address] PCP - General Internal Medicine 06/19/22 Janae Cortes MD [address] [place] [address] Primary Staff Physician Cardiology 07/19/18 13, Pharmacist [phone] [place] [address] Pharmacist Pharmacy 12/23/22 Dina Joyce, 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 [address] [place] [address] Home Health Provider Internal Medicine 04/10/24 Dynamometer Tuner Relationship Specialty Start Date End Date Saurav Bob MD [address] [place] [address] PCP - General Internal Medicine 06/19/22 Janae Cortes MD [address] [place] [address] Primary Staff Physician Cardiology 07/19/18 13, Pharmacist [address] [place] [address] Pharmacist Pharmacy 12/23/22 Dina Joyce, 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 [address] [place] [address] Home Health Provider Internal Medicine 04/10/24 Dynamometer Tuner Relationship Specialty Start Date End Date Saurav Bob MD [address] [place] [address] PCP - General Internal Medicine 06/19/22 Janae Cortes MD [address] [place] [address] Primary Staff Physician Cardiology 07/19/18 13, Pharmacist [address] [place] [address] Pharmacist Pharmacy 12/23/22 Dina Joyce, 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 [address] [place] [address] Home Health Provider Internal Medicine 04/10/24 Dynamometer Tuner Relationship Specialty Start Date End Date Saurav Bob MD [address] [place] [address] PCP - General Internal Medicine 06/19/22 Janae Cortes MD [address] [place] [address] Primary Staff Physician Cardiology 07/19/18, Pharmacist [address] [place] [address] Pharmacist Pharmacy 12/23/22 Dina Joyce, 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 [address] [place] [address] Home Health Provider Internal Medicine 04/10/24 Dynamometer Tuner Relationship Specialty Start Date End Date Saurav Bob MD [address] [place] [address] PCP - General Internal Medicine 06/19/22 Janae Cortes MD [address] [place] [address] Primary Staff Physician Cardiology 07/19/18 13, Pharmacist [address] [place] [address] Pharmacist Pharmacy 12/23/22 Dina Joyce, 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 [address] [facility] [address] Home Health Provider Internal Medicine 04/10/24 Dynamometer Tuner Relationship Specialty Start Date End Date Saurav Bob MD [address] [facility] [address] PCP - General Internal Medicine 06/19/22 Janae Cortes MD [address] [place] [address] Primary Staff Physician Cardiology 07/19/18 13, Pharmacist [address] [place] [address] Pharmacist Pharmacy 12/23/22 Dina Joyce, 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 [address] [facility] [address] Home Health Provider Internal Medicine 04/10/24 Dynamometer Tuner Relationship Specialty Start Date End Date Saurav Bob MD [address] [facility] [address] PCP - General Internal Medicine 06/19/22 Janae Cortes MD [address] [place] [address] Primary Staff Physician Cardiology 07/19/18 13, Pharmacist [address] [place] [address] Pharmacist Pharmacy 12/23/22 Dina Joyce, 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 [address] [facility] [address] Home Health Provider Internal Medicine 04/10/24 Dynamometer Tuner Relationship Specialty Start Date End Date Saurav Bob MD [address] [place] [address] PCP - General Internal Medicine 06/19/22 Janae Cortes MD [address] [place] [address] Primary Staff Physician Cardiology 07/19/18 13, Pharmacist [address] [place] [address] Pharmacist Pharmacy 12/23/22 Dina Joyce, 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 [address] [place] [address] Home Health Provider Internal Medicine 04/10/24 Dynamometer Tuner Relationship Specialty Start Date End Date Saurav Bob MD [address] [place] [address] PCP - General Internal Medicine 06/19/22 Janae Cortes MD [address] [place] [address] Primary Staff Physician Cardiology 07/19/18 13, Pharmacist [address]92 [place] [address] Pharmacist Pharmacy 12/23/22 Dina Joyce, 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 [address] [place] [address] Home Health Provider Internal Medicine 04/10/24 Team Status: Active Member Role Status Dates GERONIMO THRASHER Primary Care Provider Active Team Status: Inactive Member Role Status Dates ANNA MARIE YEE Primary Care Provider Active S tart: June 05, 2024 End: June 07, 2024 Dr. Gui Paredes , DO Emergency Provider Active Start: June 05, 2024 End: June 07, 2024 Dr. Manav Martino DO Admit Provider Active Start: June 05, 2024 End: June 07, 2024 Dr. Manav Martino DO Other Provider Active Start: June 05, 2024 End: June 07, 2024 Dr. Lyndsey Garza MD Attending Provider Active Start: June 05, 2024 End: June 07, 2024 Dr. Rhea Rangel MD Other Provider Active Start: June 05, 2024 End: June 07, 2024 Team Status: Active Member Role Status Dates ANNA MARIE YEE Primary Care Provider Active S tart: June 05, 2024 Dr. Gui Paredes , DO Emergency Provider Active Start: June 05, 2024 Dr. Manav Martino DO Admit Provider Active Start: June 05, 2024 Dr. Manav Martino DO Other Provider Active Start: June 05, 2024 Dr. Lyndsey Garza MD Attending Provider Active Start: June 05, 2024 Dr. Lyndsey Garza MD Other Provider Active St art: June 05, 2024 Team Status: Active Member Role Status Dates ANNA MARIE YEE Primary Care Provider Active S tart: June 06, 2024 Dr. Gui Paredes DO Emergency Provider Active Start: June 06, 2024 Dr. Manav Martino DO Admit Provider Active Start: June 06, 2024 Dr. Manav Martino DO Other Provider Active Start: June 06, 2024 Dr. Lyndsey Garza MD Attending Provider Active Start: June 06, 2024 Dr. Lyndsey Garza MD Other Provider Active St art: June 06, 2024 Dr. Rhea Rangel MD Other Provider Active Start: June 06, 2024 Team Status: Active Member Role Status Dates ANNA MARIE YEE Primary Care Provider Active S tart: June 07, 2024 Dr. Gui Paredes DO Emergency Provider Active Start: June 07, 2024 Dr. Manav Martino DO Admit Provider Active Start: June 07, 2024 Dr. Manav Martino DO Other Provider Active Start: June 07, 2024 Dr. Lyndsey Garza MD Attending Provider Active Start: June 07, 2024 Dr. Lyndsey Garza MD Other Provider Active St art: June 07, 2024 Dr. Rhea Rangel MD Other Provider Active Start: June 07, 2024 Team Status: Inactive Member Role Status Dates ANNA MARIE YEE Primary Care Provider Active S tart: July 07, 2024 End: July 07, 2024 Dr. Yoshi Segal , Emergency Provider Active Start: July 07, 2024 End: July 07, 2024 Dynamometer Tuner Relationship Specialty Start Date End Date Saurav Bob MD [address] [place] [place], [place] [address] PCP - General Internal Medicine 06/19/22 Janae Cortes MD [address] [place], [place] [address] Primary Staff Physician Cardiology 07/19/18 13, Pharmacist [phone] [place] [address] Pharmacist Pharmacy 12/23/22 Dina Joyce, 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 [address] [place] [address] Home Health Provider Internal Medicine 04/10/24 Dynamometer Tuner Relationship Specialty Start Date End Date Saurav Bob MD [address] [place] [place], [place] [address] PCP - General Internal Medicine 06/19/22 Janae Cortes MD [address] [place] [address] Primary Staff Physician Cardiology 07/19/18 13, Pharmacist [address] [place] [address] Pharmacist Pharmacy 12/23/22 Dina Joyce, 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 [address] [place] [address] Home Health Provider Internal Medicine 04/10/24 Dynamometer Tuner Relationship Specialty Start Date End Date Saurav Bob MD [address] [place] [address] PCP - General Internal Medicine 06/19/22 Janae Cortes MD [address] [place] [address] Primary Staff Physician Cardiology 07/19/18 13, Pharmacist [address] [place] [address] Pharmacist Pharmacy 12/23/22 Dina Joyce, 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 [address] [place] [address] [facility] Internal Medicine 04/10/24 Dynamometer Tuner Relationship Specialty Start Date End Date Saurav Bob MD [address] [place] [address] PCP - General Internal Medicine 06/19/22 Janae Cortes MD [address] [place] [address] Primary Staff Physician Cardiology 07/19/18 13, Pharmacist [address] [place] [address] Pharmacist Pharmacy 12/23/22 Dina Joyce, 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 [address] [place], [place] [address] [facility] Internal Medicine 04/10/24 Source Comments (unrecognize d section and content) In the event this informatio n is protected by the Federal Confidentiality of Alcohol and Drug Abuse Patient Records regulations: The Federal rules restrict any use of the information to criminally investigate or prosecute any alcohol or drug abuse patient.[facility] the event this information is protected by the Federal Confidentiality of Alcohol and Drug Abuse Patient Records regulations: The Federal rules restrict any use of the information to criminally investigate or prosecute any alcohol or drug abuse patient.[facility] the event this information is protected by the Federal Confidentiality of Alcohol and Drug Abuse Patient Records regulations: The Federal rules restrict any use of the information to criminally investigate or prosecute any alcohol or drug abuse patient.[facility] the event this information is protected by the Federal Confidentiality of Alcohol and Drug Abuse Patient Records regulations: The Federal rules restrict any use of the information to criminally investigate or prosecute any alcohol or drug abuse patient.[facility] the event this information is protected by the Federal Confidentiality of Alcohol and Drug Abuse Patient Records regulations: The Federal rules restrict any use of the information to criminally investigate or prosecute any alcohol or drug abuse patient.[facility] the event this information is protected by the Federal Confidentiality of Alcohol and Drug Abuse Patient Records regulations: The Federal rules restrict any use of the information to criminally investigate or prosecute any alcohol or drug abuse patient.[facility] the event this information is protected by the Federal Confidentiality of Alcohol and Drug Abuse Patient Records regulations: The Federal rules restrict any use of the information to criminally investigate or prosecute any alcohol or drug abuse patient.[facility] the event this information is protected by the Federal Confidentiality of Alcohol and Drug Abuse Patient Records regulations: The Federal rules restrict any use of the information to criminally investigate or prosecute any alcohol or drug abuse patient.[facility] the event this information is protected by the Federal Confidentiality of Alcohol and Drug Abuse Patient Records regulations: The Federal rules restrict any use of the information to criminally investigate or prosecute any alcohol or drug abuse patient.[facility] the event this information is protected by the Federal Confidentiality of Alcohol and Drug Abuse Patient Records regulations: The Federal rules restrict any use of the information to criminally investigate or prosecute any alcohol or drug abuse patient.[facility] the event this information is protected by the Federal Confidentiality of Alcohol and Drug Abuse Patient Records regulations: The Federal rules restrict any use of the information to criminally investigate or prosecute any alcohol or drug abuse patient.[facility] the event this information is protected by the Federal Confidentiality of Alcohol and Drug Abuse Patient Records regulations: The Federal rules restrict any use of the information to criminally investigate or prosecute any alcohol or drug abuse patient.[facility] the event this information is protected by the Federal Confidentiality of Alcohol and Drug Abuse Patient Records regulations: The Federal rules restrict any use of the information to criminally investigate or prosecute any alcohol or drug abuse patient.[facility] the event this information is protected by the Federal Confidentiality of Alcohol and Drug Abuse Patient Records regulations: The Federal rules restrict any use of the information to criminally investigate or prosecute any alcohol or drug abuse patient.[facility] the event this information is protected by the Federal Confidentiality of Alcohol and Drug Abuse Patient Records regulations: The Federal rules restrict any use of the information to criminally investigate or prosecute any alcohol or drug abuse patient.[facility]In the event this information is protected by the Federal Confidentiality of Alcohol and Drug Abuse Patient Records regulations: The Federal rules restrict any use of the information to criminally investigate or prosecute any alcohol or drug abuse patient.[facility] HospitalIn the event this information is protected by the Federal Confidentiality of Alcohol and Drug Abuse Patient Records regulations: The Federal rules restrict any use of the information to criminally investigate or prosecute any alcohol or drug abuse patient.[facility] HospitalIn the event this information is protected by the Federal Confidentiality of Alcohol and Drug Abuse Patient Records regulations: The Federal rules restrict any use of the information to criminally investigate or prosecute any alcohol or drug abuse patient.[facility] HospitalIn the event this information is protected by the Federal Confidentiality of Alcohol and Drug Abuse Patient Records regulations: The Federal rules restrict any use of the information to criminally investigate or prosecute any alcohol or drug abuse patient.[facility] HospitalIn the event this information is protected by the Federal Confidentiality of Alcohol and Drug Abuse Patient Records regulations: The Federal rules restrict any use of the information to criminally investigate or prosecute any alcohol or drug abuse patient.[facility] HospitalIn the event this information is protected by the Federal Confidentiality of Alcohol and Drug Abuse Patient Records regulations: The Federal rules restrict any use of the information to criminally investigate or prosecute any alcohol or drug abuse patient.[facility] HospitalIn the event this information is protected by the Federal Confidentiality of Alcohol and Drug Abuse Patient Records regulations: The Federal rules restrict any use of the information to criminally investigate or prosecute any alcohol or drug abuse patient.[facility] HospitalIn the event this information is protected by the Federal Confidentiality of Alcohol and Drug Abuse Patient Records regulations: The Federal rules restrict any use of the information to criminally investigate or prosecute any alcohol or drug abuse patient.[facility]In the event this information is protected by the Federal Confidentiality of Alcohol and Drug Abuse Patient Records regulations: The Federal rules restrict any use of the information to criminally investigate or prosecute any alcohol or drug abuse patient.[facility] HospitalIn the event this information is protected by the Federal Confidentiality of Alcohol and Drug Abuse Patient Records regulations: The Federal rules restrict any use of the information to criminally investigate or prosecute any alcohol or drug abuse patient.[facility] HospitalIn the event this information is protected by the Federal Confidentiality of Alcohol and Drug Abuse Patient Records regulations: The Federal rules restrict any use of the information to criminally investigate or prosecute any alcohol or drug abuse patient.[facility] HospitalIn the event this information is protected by the Federal Confidentiality of Alcohol and Drug Abuse Patient Records regulations: The Federal rules restrict any use of the information to criminally investigate or prosecute any alcohol or drug abuse patient.[facility]In the event this information is protected by the Federal Confidentiality of Alcohol and Drug Abuse Patient Records regulations: The Federal rules restrict any use of the information to criminally investigate or prosecute any alcohol or drug abuse patient.[facility] the event this information is protected by the Federal Confidentiality of Alcohol and Drug Abuse Patient Records regulations: The Federal rules restrict any use of the information to criminally investigate or prosecute any alcohol or drug abuse patient.[facility]In the event this information is protected by the Federal Confidentiality of Alcohol and Drug Abuse Patient Records regulations: The Federal rules restrict any use of the information to criminally investigate or prosecute any alcohol or drug abuse patient.[facility]In the event this information is protected by the Federal Confidentiality of Alcohol and Drug Abuse Patient Records regulations: The Federal rules restrict any use of the information to criminally investigate or prosecute any alcohol or drug abuse patient.[facility]In the event this information is protected by the Federal Confidentiality of Alcohol and Drug Abuse Patient Records regulations: The Federal rules restrict any use of the information to criminally investigate or prosecute any alcohol or drug abuse patient.[facility]In the event this information is protected by the Federal Confidentiality of Alcohol and Drug Abuse Patient Records regulations: The Federal rules restrict any use of the information to criminally investigate or prosecute any alcohol or drug abuse patient.[facility]In the event this information is protected by the Federal Confidentiality of Alcohol and Drug Abuse Patient Records regulations: The Federal rules restrict any use of the information to criminally investigate or prosecute any alcohol or drug abuse patient.[facility]In the event this information is protected by the Federal Confidentiality of Alcohol and Drug Abuse Patient Records regulations: The Federal rules restrict any use of the information to criminally investigate or prosecute any alcohol or drug abuse patient.[facility]In the event this information is protected by the Federal Confidentiality of Alcohol and Drug Abuse Patient Records regulations: The Federal rules restrict any use of the information to criminally investigate or prosecute any alcohol or drug abuse patient.[facility]In the event this information is protected by the Federal Confidentiality of Alcohol and Drug Abuse Patient Records regulations: The Federal rules restrict any use of the information to criminally investigate or prosecute any alcohol or drug abuse patient.[facility]In the event this information is protected by the Federal Confidentiality of Alcohol and Drug Abuse Patient Records regulations: The Federal rules restrict any use of the information to criminally investigate or prosecute any alcohol or drug abuse patient.[facility]In the event this information is protected by the Federal Confidentiality of Alcohol and Drug Abuse Patient Records regulations: The Federal rules restrict any use of the information to criminally investigate or prosecute any alcohol or drug abuse patient.[facility]In the event this information is protected by the Federal Confidentiality of Alcohol and Drug Abuse Patient Records regulations: The Federal rules restrict any use of the information to criminally investigate or prosecute any alcohol or drug abuse patient.[facility] HospitalIn the event this information is protected by the Federal Confidentiality of Alcohol and Drug Abuse Patient Records regulations: The Federal rules restrict any use of the information to criminally investigate or prosecute any alcohol or drug abuse patient.[facility]In the event this information is protected by the Federal Confidentiality of Alcohol and Drug Abuse Patient Records regulations: The Federal rules restrict any use of the information to criminally investigate or prosecute any alcohol or drug abuse patient.[facility] HospitalIn the event this information is protected by the Federal Confidentiality of Alcohol and Drug Abuse Patient Records regulations: The Federal rules restrict any use of the information to criminally investigate or prosecute any alcohol or drug abuse patient.[facility] HospitalIn the event this information is protected by the Federal Confidentiality of Alcohol and Drug Abuse Patient Records regulations: The Federal rules restrict any use of the information to criminally investigate or prosecute any alcohol or drug abuse patient.[facility]In the event this information is protected by the Federal Confidentiality of Alcohol and Drug Abuse Patient Records regulations: The Federal rules restrict any use of the information to criminally investigate or prosecute any alcohol or drug abuse patient.[facility] HospitalIn the event this information is protected by the Federal Confidentiality of Alcohol and Drug Abuse Patient Records regulations: The Federal rules restrict any use of the information to criminally investigate or prosecute any alcohol or drug abuse patient.[facility] HospitalIn the event this information is protected by the Federal Confidentiality of Alcohol and Drug Abuse Patient Records regulations: The Federal rules restrict any use of the information to criminally investigate or prosecute any alcohol or drug abuse patient.[facility] HospitalIn the event this information is protected by the Federal Confidentiality of Alcohol and Drug Abuse Patient Records regulations: The Federal rules restrict any use of the information to criminally investigate or prosecute any alcohol or drug abuse patient.[facility] HospitalIn the event this information is protected by the Federal Confidentiality of Alcohol and Drug Abuse Patient Records regulations: The Federal rules restrict any use of the information to criminally investigate or prosecute any alcohol or drug abuse patient.[facility] HospitalIn the event this information is protected by the Federal Confidentiality of Alcohol and Drug Abuse Patient Records regulations: The Federal rules restrict any use of the information to criminally investigate or prosecute any alcohol or drug abuse patient.[facility] HospitalIn the event this information is protected by the Federal Confidentiality of Alcohol and Drug Abuse Patient Records regulations: The Federal rules restrict any use of the information to criminally investigate or prosecute any alcohol or drug abuse patient.[facility]In the event this information is protected by the Federal Confidentiality of Alcohol and Drug Abuse Patient Records regulations: The Federal rules restrict any use of the information to criminally investigate or prosecute any alcohol or drug abuse patient.[facility] HospitalIn the event this information is protected by the Federal Confidentiality of Alcohol and Drug Abuse Patient Records regulations: The Federal rules restrict any use of the information to criminally investigate or prosecute any alcohol or drug abuse patient.[facility] HospitalIn the event this information is protected by the Federal Confidentiality of Alcohol and Drug Abuse Patient Records regulations: The Federal rules restrict any use of the information to criminally investigate or prosecute any alcohol or drug abuse patient.[facility] HospitalIn the event this information is protected by the Federal Confidentiality of Alcohol and Drug Abuse Patient Records regulations: The Federal rules restrict any use of the information to criminally investigate or prosecute any alcohol or drug abuse patient.[facility] HospitalIn the event this information is protected by the Federal Confidentiality of Alcohol and Drug Abuse Patient Records regulations: The Federal rules restrict any use of the information to criminally investigate or prosecute any alcohol or drug abuse patient.[facility] HospitalIn the event this information is protected by the Federal Confidentiality of Alcohol and Drug Abuse Patient Records regulations: The Federal rules restrict any use of the information to criminally investigate or prosecute any alcohol or drug abuse patient.[facility] HospitalIn the event this information is protected by the Federal Confidentiality of Alcohol and Drug Abuse Patient Records regulations: The Federal rules restrict any use of the information to criminally investigate or prosecute any alcohol or drug abuse patient.[facility] HospitalIn the event this information is protected by the Federal Confidentiality of Alcohol and Drug Abuse Patient Records regulations: The Federal rules restrict any use of the information to criminally investigate or prosecute any alcohol or drug abuse patient.[facility] HospitalIn the event this information is protected by the Federal Confidentiality of Alcohol and Drug Abuse Patient Records regulations: The Federal rules restrict any use of the information to criminally investigate or prosecute any alcohol or drug abuse patient.[facility] HospitalIn the event this information is protected by the Federal Confidentiality of Alcohol and Drug Abuse Patient Records regulations: The Federal rules restrict any use of the information to criminally investigate or prosecute any alcohol or drug abuse patient.[facility] HospitalIn the event this information is protected by the Federal Confidentiality of Alcohol and Drug Abuse Patient Records regulations: The Federal rules restrict any use of the information to criminally investigate or prosecute any alcohol or drug abuse patient.[facility] HospitalIn the event this information is protected by the Federal Confidentiality of Alcohol and Drug Abuse Patient Records regulations: The Federal rules restrict any use of the information to criminally investigate or prosecute any alcohol or drug abuse patient.[facility] HospitalIn the event this information is protected by the Federal Confidentiality of Alcohol and Drug Abuse Patient Records regulations: The Federal rules restrict any use of the information to criminally investigate or prosecute any alcohol or drug abuse patient.[facility] HospitalIn the event this information is protected by the Federal Confidentiality of Alcohol and Drug Abuse Patient Records regulations: The Federal rules restrict any use of the information to criminally investigate or prosecute any alcohol or drug abuse patient.[facility] HospitalIn the event this information is protected by the Federal Confidentiality of Alcohol and Drug Abuse Patient Records regulations: The Federal rules restrict any use of the information to criminally investigate or prosecute any alcohol or drug abuse patient.[facility] HospitalIn the event this information is protected by the Federal Confidentiality of Alcohol and Drug Abuse Patient Records regulations: The Federal rules restrict any use of the information to criminally investigate or prosecute any alcohol or drug abuse patient.[facility] HospitalIn the event this information is protected by the Federal Confidentiality of Alcohol and Drug Abuse Patient Records regulations: The Federal rules restrict any use of the information to criminally investigate or prosecute any alcohol or drug abuse patient.[facility] HospitalIn the event this information is protected by the Federal Confidentiality of Alcohol and Drug Abuse Patient Records regulations: The Federal rules restrict any use of the information to criminally investigate or prosecute any alcohol or drug abuse patient.[facility] HospitalIn the event this information is protected by the Federal Confidentiality of Alcohol and Drug Abuse Patient Records regulations: The Federal rules restrict any use of the information to criminally investigate or prosecute any alcohol or drug abuse patient.[facility] HospitalIn the event this information is protected by the Federal Confidentiality of Alcohol and Drug Abuse Patient Records regulations: The Federal rules restrict any use of the information to criminally investigate or prosecute any alcohol or drug abuse patient.[facility] HospitalIn the event this information is protected by the Federal Confidentiality of Alcohol and Drug Abuse Patient Records regulations: The Federal rules restrict any use of the information to criminally investigate or prosecute any alcohol or drug abuse patient.[facility] HospitalIn the event this information is protected by the Federal Confidentiality of Alcohol and Drug Abuse Patient Records regulations: The Federal rules restrict any use of the information to criminally investigate or prosecute any alcohol or drug abuse patient.[facility] HospitalIn the event this information is protected by the Federal Confidentiality of Alcohol and Drug Abuse Patient Records regulations: The Federal rules restrict any use of the information to criminally investigate or prosecute any alcohol or drug abuse patient.[facility] HospitalIn the event this information is protected by the Federal Confidentiality of Alcohol and Drug Abuse Patient Records regulations: The Federal rules restrict any use of the information to criminally investigate or prosecute any alcohol or drug abuse patient.[facility] HospitalIn the event this information is protected by the Federal Confidentiality of Alcohol and Drug Abuse Patient Records regulations: The Federal rules restrict any use of the information to criminally investigate or prosecute any alcohol or drug abuse patient.[facility] HospitalIn the event this information is protected by the Federal Confidentiality of Alcohol and Drug Abuse Patient Records regulations: The Federal rules restrict any use of the information to criminally investigate or prosecute any alcohol or drug abuse patient.[facility] HospitalIn the event this information is protected by the Federal Confidentiality of Alcohol and Drug Abuse Patient Records regulations: The Federal rules restrict any use of the information to criminally investigate or prosecute any alcohol or drug abuse patient.[facility] the event this information is protected by the Federal Confidentiality of Alcohol and Drug Abuse Patient Records regulations: The Federal rules restrict any use of the information to criminally investigate or prosecute any alcohol or drug abuse patient.[facility] HospitalIn the event this information is protected by the Federal Confidentiality of Alcohol and Drug Abuse Patient Records regulations: The Federal rules restrict any use of the information to criminally investigate or prosecute any alcohol or drug abuse patient.[facility] HospitalIn the event this information is protected by the Federal Confidentiality of Alcohol and Drug Abuse Patient Records regulations: The Federal rules restrict any use of the information to criminally investigate or prosecute any alcohol or drug abuse patient.[facility] HospitalIn the event this information is protected by the Federal Confidentiality of Alcohol and Drug Abuse Patient Records regulations: The Federal rules restrict any use of the information to criminally investigate or prosecute any alcohol or drug abuse patient.[facility] HospitalIn the event this information is protected by the Federal Confidentiality of Alcohol and Drug Abuse Patient Records regulations: The Federal rules restrict any use of the information to criminally investigate or prosecute any alcohol or drug abuse patient.[facility] HospitalIn the event this information is protected by the Federal Confidentiality of Alcohol and Drug Abuse Patient Records regulations: The Federal rules restrict any use of the information to criminally investigate or prosecute any alcohol or drug abuse patient.[facility] HospitalIn the event this information is protected by the Federal Confidentiality of Alcohol and Drug Abuse Patient Records regulations: The Federal rules restrict any use of the information to criminally investigate or prosecute any alcohol or drug abuse patient.[facility] HospitalIn the event this information is protected by the Federal Confidentiality of Alcohol and Drug Abuse Patient Records regulations: The Federal rules restrict any use of the information to criminally investigate or prosecute any alcohol or drug abuse patient.[facility] HospitalIn the event this information is protected by the Federal Confidentiality of Alcohol and Drug Abuse Patient Records regulations: The Federal rules restrict any use of the information to criminally investigate or prosecute any alcohol or drug abuse patient.[facility] HospitalIn the event this information is protected by the Federal Confidentiality of Alcohol and Drug Abuse Patient Records regulations: The Federal rules restrict any use of the information to criminally investigate or prosecute any alcohol or drug abuse patient.[facility] HospitalIn the event this information is protected by the Federal Confidentiality of Alcohol and Drug Abuse Patient Records regulations: The Federal rules restrict any use of the information to criminally investigate or prosecute any alcohol or drug abuse patient.[facility] HospitalIn the event this information is protected by the Federal Confidentiality of Alcohol and Drug Abuse Patient Records regulations: The Federal rules restrict any use of the information to criminally investigate or prosecute any alcohol or drug abuse patient.[facility] HospitalIn the event this information is protected by the Federal Confidentiality of Alcohol and Drug Abuse Patient Records regulations: The Federal rules restrict any use of the information to criminally investigate or prosecute any alcohol or drug abuse patient.[facility]In the event this information is protected by the Federal Confidentiality of Alcohol and Drug Abuse Patient Records regulations: The Federal rules restrict any use of the information to criminally investigate or prosecute any alcohol or drug abuse patient.[facility] HospitalIn the event this information is protected by the Federal Confidentiality of Alcohol and Drug Abuse Patient Records regulations: The Federal rules restrict any use of the information to criminally investigate or prosecute any alcohol or drug abuse patient.[facility] HospitalIn the event this information is protected by the Federal Confidentiality of Alcohol and Drug Abuse Patient Records regulations: The Federal rules restrict any use of the information to criminally investigate or prosecute any alcohol or drug abuse patient.[facility] HospitalIn the event this information is protected by the Federal Confidentiality of Alcohol and Drug Abuse Patient Records regulations: The Federal rules restrict any use of the information to criminally investigate or prosecute any alcohol or drug abuse patient.[facility]In the event this information is protected by the Federal Confidentiality of Alcohol and Drug Abuse Patient Records regulations: The Federal rules restrict any use of the information to criminally investigate or prosecute any alcohol or drug abuse patient.[facility] HospitalIn the event this information is protected by the Federal Confidentiality of Alcohol and Drug Abuse Patient Records regulations: The Federal rules restrict any use of the information to criminally investigate or prosecute any alcohol or drug abuse patient.[facility] HospitalIn the event this information is protected by the Federal Confidentiality of Alcohol and Drug Abuse Patient Records regulations: The Federal rules restrict any use of the information to criminally investigate or prosecute any alcohol or drug abuse patient.[facility]In the event this information is protected by the Federal Confidentiality of Alcohol and Drug Abuse Patient Records regulations: The Federal rules restrict any use of the information to criminally investigate or prosecute any alcohol or drug abuse patient.[facility] HospitalIn the event this information is protected by the Federal Confidentiality of Alcohol and Drug Abuse Patient Records regulations: The Federal rules restrict any use of the information to criminally investigate or prosecute any alcohol or drug abuse patient.[facility]In the event this information is protected by the Federal Confidentiality of Alcohol and Drug Abuse Patient Records regulations: The Federal rules restrict any use of the information to criminally investigate or prosecute any alcohol or drug abuse patient.[facility]In the event this information is protected by the Federal Confidentiality of Alcohol and Drug Abuse Patient Records regulations: The Federal rules restrict any use of the information to criminally investigate or prosecute any alcohol or drug abuse patient.[facility] HospitalIn the event this information is protected by the Federal Confidentiality of Alcohol and Drug Abuse Patient Records regulations: The Federal rules restrict any use of the information to criminally investigate or prosecute any alcohol or drug abuse patient.[facility]In the event this information is protected by the Federal Confidentiality of Alcohol and Drug Abuse Patient Records regulations: The Federal rules restrict any use of the information to criminally investigate or prosecute any alcohol or drug abuse patient.[facility]In the event this information is protected by the Federal Confidentiality of Alcohol and Drug Abuse Patient Records regulations: The Federal rules restrict any use of the information to criminally investigate or prosecute any alcohol or drug abuse patient.[facility]In the event this information is protected by the Federal Confidentiality of Alcohol and Drug Abuse Patient Records regulations: The Federal rules restrict any use of the information to criminally investigate or prosecute any alcohol or drug abuse patient.[facility] HospitalIn the event this information is protected by the Federal Confidentiality of Alcohol and Drug Abuse Patient Records regulations: The Federal rules restrict any use of the information to criminally investigate or prosecute any alcohol or drug abuse patient.[facility]In the event this information is protected by the Federal Confidentiality of Alcohol and Drug Abuse Patient Records regulations: The Federal rules restrict any use of the information to criminally investigate or prosecute any alcohol or drug abuse patient.[facility] HospitalIn the event this information is protected by the Federal Confidentiality of Alcohol and Drug Abuse Patient Records regulations: The Federal rules restrict any use of the information to criminally investigate or prosecute any alcohol or drug abuse patient.[facility] HospitalIn the event this information is protected by the Federal Confidentiality of Alcohol and Drug Abuse Patient Records regulations: The Federal rules restrict any use of the information to criminally investigate or prosecute any alcohol or drug abuse patient.[facility]In the event this information is protected by the Federal Confidentiality of Alcohol and Drug Abuse Patient Records regulations: The Federal rules restrict any use of the information to criminally investigate or prosecute any alcohol or drug abuse patient.[facility] the event this information is protected by the Federal Confidentiality of Alcohol and Drug Abuse Patient Records regulations: The Federal rules restrict any use of the information to criminally investigate or prosecute any alcohol or drug abuse patient.[facility]In the event this information is protected by the Federal Confidentiality of Alcohol and Drug Abuse Patient Records regulations: The Federal rules restrict any use of the information to criminally investigate or prosecute any alcohol or drug abuse patient.[facility] HospitalIn the event this information is protected by the Federal Confidentiality of Alcohol and Drug Abuse Patient Records regulations: The Federal rules restrict any use of the information to criminally investigate or prosecute any alcohol or drug abuse patient.[facility] HospitalIn the event this information is protected by the Federal Confidentiality of Alcohol and Drug Abuse Patient Records regulations: The Federal rules restrict any use of the information to criminally investigate or prosecute any alcohol or drug abuse patient.[facility] HospitalIn the event this information is protected by the Federal Confidentiality of Alcohol and Drug Abuse Patient Records regulations: The Federal rules restrict any use of the information to criminally investigate or prosecute any alcohol or drug abuse patient.[facility] HospitalIn the event this information is protected by the Federal Confidentiality of Alcohol and Drug Abuse Patient Records regulations: The Federal rules restrict any use of the information to criminally investigate or prosecute any alcohol or drug abuse patient.[facility] HospitalIn the event this information is protected by the Federal Confidentiality of Alcohol and Drug Abuse Patient Records regulations: The Federal rules restrict any use of the information to criminally investigate or prosecute any alcohol or drug abuse patient.[facility] HospitalIn the event this information is protected by the Federal Confidentiality of Alcohol and Drug Abuse Patient Records regulations: The Federal rules restrict any use of the information to criminally investigate or prosecute any alcohol or drug abuse patient.[facility] HospitalIn the event this information is protected by the Federal Confidentiality of Alcohol and Drug Abuse Patient Records regulations: The Federal rules restrict any use of the information to criminally investigate or prosecute any alcohol or drug abuse patient.[facility] HospitalIn the event this information is protected by the Federal Confidentiality of Alcohol and Drug Abuse Patient Records regulations: The Federal rules restrict any use of the information to criminally investigate or prosecute any alcohol or drug abuse patient.[facility] HospitalIn the event this information is protected by the Federal Confidentiality of Alcohol and Drug Abuse Patient Records regulations: The Federal rules restrict any use of the information to criminally investigate or prosecute any alcohol or drug abuse patient.[facility] HospitalIn the event this information is protected by the Federal Confidentiality of Alcohol and Drug Abuse Patient Records regulations: The Federal rules restrict any use of the information to criminally investigate or prosecute any alcohol or drug abuse patient.[facility] HospitalIn the event this information is protected by the Federal Confidentiality of Alcohol and Drug Abuse Patient Records regulations: The Federal rules restrict any use of the information to criminally investigate or prosecute any alcohol or drug abuse patient.[facility] HospitalIn the event this information is protected by the Federal Confidentiality of Alcohol and Drug Abuse Patient Records regulations: The Federal rules restrict any use of the information to criminally investigate or prosecute any alcohol or drug abuse patient.[facility] HospitalIn the event this information is protected by the Federal Confidentiality of Alcohol and Drug Abuse Patient Records regulations: The Federal rules restrict any use of the information to criminally investigate or prosecute any alcohol or drug abuse patient.[facility] Reason for Visit (unrecogniz ed section and content) Reason Comments Ear Pain right ear pain and c logged x 1 week Reason Comments Insect Bite R inner bicep x1 day Reason Comments Ear Problem Pt reported bilatera l ears decreased hearing x2 day, nasal congestion. Reason Comments Ear Pain seen Wednesday, had ear lavage done Reason Comments Establish Care Reason Comments Follow Up Reason Comments PAP Supply fax Reason Comments Abdominal Pain Pt reported abd pain , fatigue, x4 days. Reason Comments Results Reason Comments Orders Reason Comments Patient Question Reason Comments Refill Request Reason Comments Elevated Bilirubin Labs,CT,US and HIDA scan done in August. Hx of gallstones bloating after eating. GES 10/05/22 in [place] Reason Comments sore on face X 2 weeks Reason Comments Anticoagulation - Initial Consult Reason Comments Anticoagulation Telephone Fu Reason Comments Anticoagulation Reason Comments Rash itching and burning left arm and some tingling in left lower back x 1 week Reason Comments Nasal Congestion fatigue and fever, b odyaches x 1 day Reason Comments Patient Update Reason Onset Date Comments Cough 01/31/2023 Reason Comments Ear Problem left ear feels plugg ed x 1 week Reason Comments Anticoagulation Telephone Fu Home INR re sult Reason Comments Radiology NM Specialty Diagnoses / Procedures Referred By Contac t Referred To Contact [facility]LECULAR [facility] FUNCTIONAL IMAGING Diagnoses Calculus of gallbladder without cholecystitis without obstruction Procedures NM HEPATOBILIARY W EF AND/OR RX HEPATOBIL SYST IMAG INC GB W/PHARMA INTERVENJ 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, 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, 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 [address] [place] [address] [facility] [address] [place] [address] Referral ID Status Reason Start Date Expiration Date V isits Requested Visits Authorized [id number] Closed Auto-Generate d Referral 08/14/2022 09/13/2023 [address] Specialty Diagnoses / Procedures Referred By Contac t Referred To Contact CT IMAGING Diagnoses Generalized abdominal pain Periumbilical pain Procedures CT ABD/PEL W IVCON CT ABD & PELVIS W/CONTRAST 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, 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, 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 [address] [place] [address] [place] [address] Referral ID Status Reason Start Date Expiration Date V isits Requested Visits Authorized [id number] Closed Auto-Generat ed Referral Patient Cleared - Admin/Chairm an/Director advise to proceed or did not respond 08/12/2022 02/08/2023 2 2 Reason Comments Anticoagulation Telephone Fu Home 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 Date Comments Refill Request 06/30/2023 Reason Comments REJECTED CMN Reason Comments Anticoagulation Telephone Fu Lab INR Reason Comments PAP Supply Fax Reason Onset Date Comments Refill Request 09/10/2023 Reason Comments Rectal Problem x 3 weeks Reason Comments Urinary Frequency Frequency, burning a nd odor x 1 day Reason Comments Callous New Reason Comments Urinary Problem Burning, pressure x 1 day Reason Comments Insect Bite Reason Onset Date Comments Anticoagulation Telephone Fu 10/11/2023 Tiffanie e INR Result Reason Onset Date Comments Anticoagulation Telephone Fu 10/18/2023 Tiffanie e INR Result Reason Comments PT Eval Specialty Diagnoses / Procedures Referred By Contac t Referred To Contact [facility] Diagnoses Posterior tibial tendon dysfunction Procedures CONSULT TO PHYSICAL THERAPY PHYSICAL THERAPY EVALUATION HIGH COMPLEX 45 MINS Georgie Reynoso [address] [place] [address] [facility] [place] [address] [place] [address] Referral ID Status Reason Start Date Expiration Date Visits Requested Visits Authorized [id number] Authorized Auto-Generat ed Referral 05/03/2023 05/02/2024 74 75 Reason Comments PT Discharge Reason Comments Anticoagulation Telephone Fu Home INR re sult Reason Comments Anticoagulation Telephone Fu Lab INR res ults Reason Onset Date Comments Refill Request 02/14/2024 Reason Comments Anticoagulation Telephone Fu Home INR Reason Onset Date Comments Refill Request 02/17/2024 Reason Onset Date Comments Anticoagulation Telephone Fu 03/31/2024 Tiffanie e INR Reason Comments Physical Reason Comments GERD Sometimes has abdomi nal pain for a few days at a time Reason Onset Date Comments Anticoagulation Telephone Fu 05/11/2024 Tiffanie e INR Specialty Diagnoses / Procedures Referred By Contac t Referred To Contact XR IMAGING Diagnoses Epigastric pain Dysphagia, unspecified type Procedures XR ESOPHAGRAM RADIOLOGIC EXAM ESOPHAGUS SINGLE CONTRAST STUDY Gayathri Sky PA-C [address] [address] [facility] [place] [address] Referral ID Status Reason Start Date Expiration Date V isits Requested Visits Authorized [id number] Closed Auto-Generat ed Referral Clearance Not Met - Pt Rescheduled/ Cancelled/Ch ose Not to Proceed 05/09/2024 05/02/2025 1 1 Reason Comments Anticoagulation Telephone Fu Lab INR res ult Reason Comments Nurse Visit Holter Reason Onset Date Comments Anticoagulation Telephone Fu 06/15/2024 Tiffanie e INR Specialty Diagnoses / Procedures Referred By Markac t Referred To Contact [facility]LECULAR [facility] FUNCTIONAL IMAGING Diagnoses S/P MVR (mitral valve replacement) LBBB (left bundle branch block) AV block, 1st degree Procedures NM CARDIAC PERF STRESS/PHARM MYOCARDIAL SPECT MULTIPLE STUDIES Janae Cortes MD [address] [place] [address] Phone: tel: fax: [facility] [address] [place] [address] Phone: tel: Referral ID Status Reason Start Date Expiration Date V isits Requested Visits Authorized [id number] Closed Auto-Generate d Referral 06/07/2024 12/04/2024 1 1 Reason Comments Anticoagulation Perioperative Manage ment Reason Comments Patient Education Reason Comments GERD Reason Onset Date Comments Anticoagulation Telephone Fu 07/25/2024 Tiffanie e INR Reason Onset Date Comments Anticoagulation Telephone Fu 07/27/2024 Tiffanie e INR Reason Comments Requesting PAP Compliance and Therapy Re port [employer]. Reason Comments PAP Compliance & Therapy Report Follow U p Reason Comments Sleep Apnea Pt here for CPAP com pliance appt, pt requesting new supplies and a machine. Reason Onset Date Comments Anticoagulation Telephone Fu 08/10/2024 Tiffanie e INR Reason Comments CMN Reason Comments Ear Problem Left ear congestion x 1 week Reason Comments Anticoagulation Telephone Fu INR Home Te st Result Reason Comments PSG Check In Reason Onset Date Comments Refill Request 09/19/2024 Reason Onset Date Comments Anticoagulation Telephone Fu 09/28/2024 Tiffanie e INR Reason Comments Patient Question Returning Patient's Call Reason Comments Appointment DOWNLOAD PAP THERAPY FOLLOW UP Reason Comments Established Patient Reason Comments PAP Rx Faxed [employer] Goals (unrecognized section and content) Goals may be documented in a n alternate sectionGoals may be documented in an alternate section FOR RECORDS PERTAINING TO PATIENTS WHO ARE OR HAVE BEEN ENROLLED IN A CHEMICAL DEPENDENCY/SUBSTANCEABUSE PROGRAM, SOME INFORMATION MAY BE OMITTED. This clinical summary was aggregated from multiple sources. Caution should be exercised in using it in the provision of clinical care. This summary normalizes information from multiple sources, and as a consequence, information in this document may materially change the coding, format and clinical context of patient data. In addition, data may be omitted in some cases. CLINICAL DECISIONS SHOULD BE BASED ON THE PRIMARY CLINICAL RECORDS. [employer] provides no warranty or guarantee of the accuracy or completeness of information in this document.
[2024-10-20 20:05] LABS: Absolute Lymphocyte Count 2.14 X10^3/uL (0.83-4.51); Absolute Neutrophil Count 2.3 X10^3/uL (2.0-7.7); Basophil# 0.06 X10^3/uL; Basophil% 1.1 % (0-1); Eosinophil# 0.25 X10^3/uL; Eosinophils% 4.6 % (0-5); Hematocrit 41.9 % (40-54); Hemoglobin 13.7 g/dL (13.0-16.5); Lymphocyte # 2.14 X10^3/ul (0.83-4.51); Lymphocyte % 39.4 % (19-41); Mean Corp Hgb Conc 32.7 g/dL (32-36); Mean Corpuscular Hgb 26.4 pg (27.0-32.0); Mean Corpuscular Volume 80.9 fL (80-94); Mean Platelet Vol. 8.8 fl (6.2-12.0); Monocyte% 12.9 % (0-10); NRBC Flagged by Analyzer 0 % (0-5); Neutrophil # 2.27 X10^3/uL (2.7-7.7); Neutrophil % 41.8 % (47-70); Platelet Count 319 K/mm3 (150-450); RBC Distribution Width CV 14.2 % (11.6-14.6); RBC Distribution Width SD 41.2 fl (35.1-43.9); Red Blood Count 5.18 M/mm3 (4.6-6.2); White Blood Count 5.4 K/mm3 (4.4-11.0)
[2024-10-20 20:24] LABS: Anion Gap 10 (5-15); BUN 19 mg/dL (4-19); BUN/Creat Ratio 21.9 RATIO (10-20); Calcium,Total 9.2 mg/dL (7.6-11.0); Carbon Dioxide 24.9 mmol/L (21.0-32.0); Chloride 106 mmol/L (98-108); Creatinine, Serum 0.88 mg/dL (0.70-1.20); EST Glomerular Filtration Rate 102 (>60); Glucose 93 mg/dL (70-99); Potassium 4.2 mmol/L (3.3-5.1); Sodium Level 141 mmol/L (133-145)
[2024-10-20 20:26] LABS: International Normalized Ratio 2.7; Prothrombin Time (Protime)PT. 29.1 SECONDS (11.7-14.9)
[2024-10-20 20:33] LABS: Bacteria 0 SEEN /hpf (None Seen); Mucous, Urine 0 SEEN /hpf (<or=2+); White Blood Cells 0 SEEN /hpf (0-5)
[2024-10-20 20:42] LABS: Color, Urine Yellow (Yellow); Glucose, Dipstick Normal (Normal); Ketone-Dipstick Negative (Negative); Leukocyte Esterase-Dipstick Negative /ul (Negative); Nitrite-Dipstick Negative (Negative); Occult Blood-Urine 250 /ul (Negative); Protein-Dipstick 30 mg/dl (Negative); Urine Bilirubin Dipstick Negative (Negative); Urine Clarity Sl. Cloudy (Clear); Urine Urobilinogen 1 mg/dl (Normal)
[2024-10-20 20:57] VITALS: BP 126/84; PULSE 64; RESP 16; O2SAT 99
[2024-10-20 21:01] LABS: Red Blood Cells-Urine > 100 SEEN /hpf (0-5); Squamous Epithelial Cells - UA 0-5 SEEN /hpf (0-5)
[2024-10-20 21:24] VITALS: BP 99/61; PULSE 63; RESP 16; TEMP 36.2; O2SAT 98
== END 2024-10-20 21:24 | disposition home or self-care (01) ==
PROVIDERS: Emergency Provider Emergency Medicine; PCP Internal Medicine; Referring Provider Emergency Medicine; Visit Provider Emergency Medicine
DX: S50.02XA Contusion of left elbow, initial encounter (principal); I42.1 Obstructive hypertrophic cardiomyopathy; R31.9 Hematuria, unspecified; E78.00 Pure hypercholesterolemia, unspecified; S50.12XA Contusion of left forearm, initial encounter; Z79.01 Long term (current) use of anticoagulants; Z79.899 Other long term (current) drug therapy; Z79.82 Long term (current) use of aspirin; K21.9 Gastro-esophageal reflux disease without esophagitis; Z95.2 Presence of prosthetic heart valve
CPT/HCPCS: 80048; 81001; 85025; 85610; 99283; A4216

== ENCOUNTER → 2025-03-12 | Outpatient (CLI) | payer OTHER, SELFPAY ==
--- NOTE | 2025-03-12 10:47 | US_ITS ---
PROCEDURE: TESTICULAR WITH ARTERIAL FLOW 03/12/2025 REASON FOR EXAM: RIGHT AND LEFT TESTICULAR PAIN TECHNIQUE: Procedure Code: USTES Modality: US Procedure: TESTICULAR WITH ARTERIAL FLOW COMPARISON: None FINDINGS: RIGHT testicle: 4.7 cm x 4.1 cm x 2.6 cm Homogeneous architecture. Right epididymis: 1 cm x 1.1 cm x 0.8 cm. There is a 5 mm x 7 mm x 4 mm epididymal cyst. LEFT testicle: 4.8 cm x 4.5 cm x 2.8 cm Homogeneous echotexture. Left epididymis: 1.4 cm x 0.8 cm x 0.7 cm. Other findings: Small left varicocele. US/Testicular with Arterial Flow IMPRESSION: Small right epididymal cyst. Small left varicocele. The testicles are homogeneous in echotexture. Reading Location: [place] [address]
== END | disposition home or self-care (01) ==
LOC: US 10:43
PROVIDERS: PCP Internal Medicine; Referring Provider Internal Medicine; Visit Provider Internal Medicine
DX: N50.811 Right testicular pain (principal); N50.812 Left testicular pain
CPT/HCPCS: 76870; 93976